=== PATIENT | female | born 1980 | race Caucasian/White ===

== ENCOUNTER → 2016-04-22 | Outpatient (CLI) | payer BC ==
[2016-04-22 14:21] LABS: ALT 28 U/L (9-52); AST 22 U/L (14-36); Alkaline Phosphatase 104 U/L (38-126); Anion Gap 13 mmol/L; Blood Urea Nitrogen 10 mg/dL (7-17); Calcium 9.8 mg/dL (8.4-10.2); Carbon Dioxide 22 mmol/L (22-30); Chloride 107 mmol/L (98-107); Glucose 88 mg/dL (74-99); Non-African American GFR(MDRD) >60 (>60 ml/min/1.73 sqM); Potassium 4.5 mmol/L (3.5-5.1); Sodium 142 mmol/L (137-145); Total Bilirubin 0.3 mg/dL (0.2-1.3); Total Protein 7.5 g/dL (6.3-8.2)
--- NOTE | 2016-04-22 14:55 | CT ---
EXAMINATION TYPE: CT abdomen pelvis w con DATE OF EXAM: 04/22/2016 2:43 PM COMPARISON: 10/29/2015 HISTORY: Patient complains of chest pain and difficulty breathing. CT DLP: 909.9 mGycm CONTRAST: CT scan of the abdomen and pelvis is performed with Oral Contrast and with IV Contrast, patient injec facundo with 100 mL of Omnipaque 300. FINDINGS: LUNG BASES-: No visible nodule. No infiltrate. LIVER/GB: No calcified gallstones. No space occupying hepatic lesion. Biliary tree is of normal ca liber. PANCREAS: No inflammation. No distinct mass. SPLEEN: No splenic enlargement. No lesion seen. ADRENALS: No nodule. No thickening. KIDNEYS/BLADDER: No hydronephrosis. No nephrolithiasis. No disctinct renal mass. Urinary bladder g rossly unremarkable. BOWEL: Normal appendix. Normal bowel caliber. No inflammation. GENITAL ORGANS: IUD is in place. Left ovarian cyst measuring 2.7 cm. Right ovary is unremarkable. LYMPH NODES: No greater than 1cm abdominal or pelvic lymph nodes are appreciated. AORTA: No significant abnormality. OSSEOUS STRUCTURES: No significant abnormality is seen. OTHER: Stable midline ventral hernia containing fat. IMPRESSION: 1. No acute intra-abdominal process. 2. Ventral fat-containing hernia.
== END | disposition home or self-care (01) ==
LOC: RADCTMAIN 11:47
PROVIDERS: ATTEND Family Medicine
DX: K43.9 Ventral hernia without obstruction or gangrene (principal); K31.84 Gastroparesis; R10.11 Right upper quadrant pain; R11.0 Nausea
CPT/HCPCS: 80053; 83690; 74177; 36415; Q9967; 85025

== ENCOUNTER → 2016-04-22 | Outpatient (CLI) | payer BC ==
[2016-04-22 15:50] LABS: Basophils # (A) 0.1 k/uL (0-0.2); Basophils % (A) 1 %; CH 22.6; CHCM 30.6; Eosinophils # (A) 0.2 k/uL (0-0.7); Eosinophils % (A) 2 %; HCT 36.5 % (34.0-46.0); HDW 3.04; Hypochromasia Marked; Luc # (Auto) 0.23; Luc % (Auto) 3; Lymphocytes # (A) 2.1 k/uL (1.0-4.8); Lymphocytes % (A) 26 %; MCH 22.4 pg (25.0-35.0); MCHC 30.2 g/dL (31.0-37.0); MCV 74.1 fL (80.0-100.0); Mean Platelet Volume 6.7; Microcytosis Slight; Monocytes # (A) 0.5 k/uL (0-1.0); Monocytes % (A) 6 %; Neutrophils % (A) 62 %; RBC 4.92 m/uL (3.80-5.40); WBC 8.1 k/uL (3.8-10.6); WBC (Perox) 7.78
== END | disposition home or self-care (01) ==
LOC: LABWHC1 14:39
PROVIDERS: ATTEND Family Medicine
DX: K31.84 Gastroparesis (principal); R11.0 Nausea; R10.11 Right upper quadrant pain
CPT/HCPCS: 36415; 85025

== ENCOUNTER 2016-08-30 18:30 | Inpatient (IN) | payer BC ==
[2016-08-30] MEDS ORDERED: SODIUM CHLORIDE 0.9% 1,000 ML IV STA (18:49)
[2016-08-30] MEDS ORDERED: diphenhydrAMINE 50 MG/ML 1 ML VIAL IVP STA (19:04)
[2016-08-30] MEDS ORDERED: LORazepam 2 MG/ML SYRINGE IV STA (19:04)
--- NOTE | 2016-08-30 19:17 | ED ---
Abdominal Pain HPI - General Chief Complaint: Abdominal Pain Stated Complaint: Abd pain Time Seen by Provider: 08/30/16 18:49 Source: patient, RN notes reviewed Mode of arrival: ambulatory Limitations: no limitations - History of Present Illness Initial Comments: This is a 36-year-old female presents emergency Department chief complaint abdominal pain, nausea vomiting. Patient states that she did not feel well yesterday but states it worsened today. Patient states that she has a history of pancreatitis, gastroparesis and multiple abdominal surgeries. Patient had prior cholecystectomy, Edna-en-Y surgery. Patient states that she's also had gastric pacemaker placed. Patient states that she is currently under a drug trial of propulsid. Patient states that she feels it may be pancreatitis or her gastroparesis. Patient denies fever, chills, headache, chest pain or shortness breath. Denies any sick contacts. Patient states she's had some diarrhea which is not unusual. - Related Data Home Medications Medication Instructions Recorded Confirmed Loratadine [Claritin] 10 mg PO DAILY PRN 05/11/14 08/30/16 Linaclotide [Linzess] 290 mcg PO DAILY 01/05/15 08/30/16 oxyCODONE-APAP 10-325MG [Percocet 1 tab PO Q6HR PRN MDD 4 tablets 08/28/1508/30 10-325 mg] Thyroid,Pork [Nature-Throid] 81.25 mg PO DAILY 10/27/15 08/30/16 DULoxetine HCL [Cymbalta] 20 mg PO DAILY 08/30/16 08/30/16 Gabapentin [Neurontin] 300 mg PO TID 08/30/16 08/30/16 Lansoprazole [Prevacid] 30 mg PO AC-BID 08/30/16 08/30/16 Allergies Allergy/AdvReac Type Severity Reaction Status Date / Time No Known Allergies Allergy Verified 08/30/16 20:44 Review of Systems ROS Statement: Those systems with pertinent positive or pertinent negative responses have been documented in the HPI. ROS Other: All systems not noted in ROS Statement are negative. 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 PT STATED HAD PANCREATITIS APPROX 6 MONTHS AGO STATED THEY THOUGHT MAYBE THERE WAS A STONE SOMEWHERE(HAS HAD HERE GALLBLADDER REMOVED IN THE PAST) Past Drug Use History: None Reported - Past Family History Father Family Medical History: Hypertension Additional Family Medical History / Comment(s): DAD IS 52 AND IN [facility] Mother Additional Family Medical History / Comment(s): MOM IS 52 AND IN [facility] General Exam Limitations: no limitations General appearance: alert, in no apparent distress Head exam: Present: atraumatic, normocephalic, normal inspection Neck exam: Present: normal inspection. Absent: tenderness, meningismus, lymphadenopathy Respiratory exam: Present: normal lung sounds bilaterally. Absent: respiratory distress, wheezes, rales, rhonchi, stridor Cardiovascular Exam: Present: normal rhythm, tachycardia, normal heart sounds. Absent: systolic murmur, diastolic murmur, rubs, gallop, clicks GI/Abdominal exam: Present: soft, tenderness (Moderate right upper quadrant ), normal bowel sounds. Absent: distended, guarding, rebound, rigid Back exam: Absent: CVA tenderness (R), CVA tenderness (L) Skin exam: Present: warm, dry, intact, normal color. Absent: rash Course Vital Signs 08/30/16 18:39 Temperature 97.7 F Pulse Rate 116 H Respiratory 18 Rate Blood Pressure 173/99 O2 Sat by Pulse 100 Oximetry Medical Decision Making - Lab Data Result diagrams: 08/30/16 19:32 08/30/16 19:32 Lab Results 08/30/16 08/30/16 Range/Units 19:32 19:32 WBC 20.5 H (3.8-10.6) k/uL RBC 5.01 (3.80-5.40) m/uL Hgb 12.2 (11.4-16.0) gm/dL Hct 40.0 (34.0-46.0) % MCV 79.8 L (80.0-100.0) fL MCH 24.4 L (25.0-35.0) pg MCHC 30.6 L (31.0-37.0) g/dL RDW 16.1 H (11.5-15.5) % Plt Count 459 H (150-450) k/uL Neutrophils % 83 % Lymphocytes % 11 % Monocytes % 4 % Eosinophils % 1 % Basophils % 0 % Neutrophils # 17.0 H (1.3-7.7) k/uL Lymphocytes # 2.2 (1.0-4.8) k/uL Monocytes # 0.9 (0-1.0) k/uL Eosinophils # 0.1 (0-0.7) k/uL Basophils # 0.1 (0-0.2) k/uL Hypochromasia Marked Anisocytosis Slight Sodium 142 (137-145) mmol/L Potassium 3.7 (3.5-5.1) mmol/L Chloride 109 H (98-107) mmol/L Carbon Dioxide 25 (22-30) mmol/L Anion Gap 8 mmol/L BUN 10 (7-17) mg/dL Creatinine 0.77 (0.52-1.04) mg/dL Est GFR (MDRD) Af Amer >60 (>60 ml/min/1.73 sqM) Est GFR (MDRD) Non-Af >60 (>60 ml/min/1.73 sqM) Glucose 98 (74-99) mg/dL Calcium 8.9 (8.4-10.2) mg/dL Total Bilirubin 0.4 (0.2-1.3) mg/dL AST 20 (14-36) U/L ALT 27 (9-52) U/L Alkaline Phosphatase 103 (38-126) U/L Total Protein 6.9 (6.3-8.2) g/dL Albumin 4.0 (3.5-5.0) g/dL Amylase 59 (30-110) U/L Lipase 56 (23-300) U/L Disposition Clinical Impression: Gastroparesis, Intractable abdominal pain, Intractable nausea and vomiting, Dehydration Disposition: ADMITTED IP TO THIS [facility] Condition: Stable Referrals: Ziggy Wood III, MD [Primary Care Provider] - 1-2 days
[2016-08-30 19:44] LABS: Anisocytosis Slight; Basophils # (A) 0.1 k/uL (0-0.2); Basophils % (A) 0 %; CH 24.1; CHCM 30.3; Eosinophils # (A) 0.1 k/uL (0-0.7); Eosinophils % (A) 1 %; HDW 2.71; HGB 12.2 gm/dL (11.4-16.0); Hypochromasia Marked; Luc % (Auto) 1; Lymphocytes # (A) 2.2 k/uL (1.0-4.8); Lymphocytes % (A) 11 %; MCH 24.4 pg (25.0-35.0); MCHC 30.6 g/dL (31.0-37.0); MCV 79.8 fL (80.0-100.0); Monocytes # (A) 0.9 k/uL (0-1.0); Monocytes % (A) 4 %; Neutrophils % (A) 83 %; RBC 5.01 m/uL (3.80-5.40); RDW 16.1 % (11.5-15.5); WBC 20.5 k/uL (3.8-10.6); WBC (Perox) 20.67
[2016-08-30 20:00] LABS: ALT 27 U/L (9-52); AST 20 U/L (14-36); Alkaline Phosphatase 103 U/L (38-126); Amylase 59 U/L (30-110); Anion Gap 8 mmol/L; Blood Urea Nitrogen 10 mg/dL (7-17); Calcium 8.9 mg/dL (8.4-10.2); Carbon Dioxide 25 mmol/L (22-30); Chloride 109 mmol/L (98-107); Glucose 98 mg/dL (74-99); Non-African American GFR(MDRD) >60 (>60 ml/min/1.73 sqM); Potassium 3.7 mmol/L (3.5-5.1); Sodium 142 mmol/L (137-145); Total Bilirubin 0.4 mg/dL (0.2-1.3); Total Protein 6.9 g/dL (6.3-8.2)
[2016-08-30] MEDS ORDERED: TRIMETHOBENZAMIDE 100 MG/ML 2 ML VIAL IM STA (20:10)
[2016-08-30] MEDS ORDERED: RX INFO: IV CONTRAST WAS GIVEN 1 EACH MISC MISCELLANE PRN (20:10)
[2016-08-30] MEDS ORDERED: HYDROmorphone 1 MG/ML 1 ML SYRINGE IVP STA ×2 (20:10→21:52)
--- NOTE | 2016-08-30 20:28 | XR ---
EXAMINATION TYPE: XR KUB DATE OF EXAM: 08/30/2016 8:07 PM COMPARISON: 01/23/2016 HISTORY: Pain TECHNIQUE: 2 views FINDINGS: Bowel gas pattern is normal. There is no sign of intestinal obstruction or pneumoperitoneum . Fecal pattern is normal. There are clips from cholecystectomy. There is a neurostimulator over the right iliac bone. Lung bases are clear. There are no pathologic calcifications over the kidneys. IMPRESSION: Nonacute abdomen. No adverse change compared to old exam.
--- NOTE | 2016-08-30 21:15 | CT ---
EXAMINATION TYPE: CT abdomen pelvis w con DATE OF EXAM: 08/30/2016 9:07 PM COMPARISON: 04/22/2016 HISTORY: Right upper quadrant pain radiating to back with nausea and vomiting. CT DLP: 1546.00 mGycm Automated exposure control for dose reduction was used. TECHNIQUE: Helical acquisition of images was performed from the lung bases through the pelvis. CONTRAST: Performed without Oral Contrast and with IV Contrast, patient injected with 100 mL of Omnipaque 300. FINDINGS: Lung bases are clear. There is no pleural effusion. Liver spleen pancreas appear normal. There are clips from cholecystectomy. Bile ducts are not dilated . There is a implanted device over the left anterior mid abdomen. There is a ventral hernia that cont ains omental fat above the umbilicus. This measures 4.5 x 3 cm. Bladder distends smoothly. There is no ascites. Kidneys show satisfactory contrast opacification. The re is no hydronephrosis. There is no adrenal mass. There is no retroperitoneal adenopathy. I see no i ntestinal wall thickening. There are no dilated loops. Appendix appears normal. I see no bony destruc tive process. IUD is noted in the uterine fundus. There is a 2 cm cyst on the right ovary. IMPRESSION: NO SIGN OF ACUTE ABDOMEN AND PELVIS. EPIGASTRIC VENTRAL HERNIA IS STABLE COMPARED TO OLD EXAM.
[2016-08-30] MEDS ORDERED: NALOXONE 0.4 MG/ML 1 ML VIAL IV PRN (21:20)
[2016-08-30] MEDS ORDERED: ACETAMINOPHEN TAB 325 MG TAB PO PRN (21:20)
[2016-08-30] MEDS ORDERED: TRIMETHOBENZAMIDE 300 MG CAP PO PRN (21:23)
[2016-08-30 22:34] VITALS: BMI 35.4
[2016-08-31] MEDS: diphenhydrAMINE 50 MG/ML 1 ML VIAL IVP PRN ×4 (00:10→23:39)
[2016-08-31] MEDS: HYDROmorphone 1 MG/ML 1 ML SYRINGE IVP PRN ×5 (01:18→19:59)
[2016-08-31 01:33] LABS: Appearance,Urine Clear (Clear); Bilirubin,Urine Negative (Negative); Glucose,Urine (UA) Negative (Negative); Ketones,Urine Negative (Negative); Leukocyte Esterase,Urine Negative (Negative); Mucus,Urine Rare /hpf; Nitrite,Urine Negative (Negative); PH, Urine 6.5 (5.0-8.0); Particle Count 3465; Protein,Urine Trace (Negative); RBC,Urine 1 /hpf (0-5); Squamous Epithelial Cell,Urine 2 /hpf (0-4); UA Billing (MACRO vs. MICRO) MICRO; Urobilinogen,Urine <2.0 mg/dL (<2.0); WBC,Urine 1 /hpf (0-5)
[2016-08-31 01:36] LABS: Specific Gravity,Urine >1.050 (1.001-1.035)
[2016-08-31] MEDS: SODIUM CHLORIDE 0.9% 1,000 ML IV SCH ×4 (05:44→20:55)
[2016-08-31 07:33] VITALS: RESP 16
[2016-08-31] MEDS: LORazepam 2 MG/ML SYRINGE IV PRN ×4 (08:16→23:39)
--- NOTE | 2016-08-31 11:01 | XR ---
EXAMINATION TYPE: XR chest 1V portable DATE OF EXAM: 08/31/2016 COMPARISON: Prior chest x-ray 01/09/2014 HISTORY: Pneumonia, right upper quadrant pain TECHNIQUE: Single frontal view of the chest is obtained. FINDINGS: There is no focal air space opacity, pleural effusion, or pneumothorax seen. The cardiac silhouette size is within normal limits. The osseous structures are intact. IMPRESSION: No acute process.
[2016-08-31] MEDS ORDERED: LORATADINE 10 MG TAB PO PRN (16:32)
[2016-08-31] MEDS: THYROID, PORK 30 MG TAB PO SCH (17:43)
[2016-08-31] MEDS: DULoxetine HCL 20 MG CAPSULE.DR PO SCH (17:44)
[2016-08-31] MEDS: GABAPENTIN 300 MG CAP PO SCH ×2 (17:44→23:34)
[2016-08-31] MEDS: PANTOPRAZOLE 40 MG TABLET PO SCH (17:44)
--- NOTE | 2016-08-31 20:05 | P.GSCN ---
History of Present Illness Consult date: 08/31/16 Reason for Consult: Abdominal pain/leukocytosis History of present illness: Patient is a 36-year-old white female who presented to the emergency room with a complaint of abdominal discomfort. Of significance is the fact that the patient has had multiple prior abdominal surgery surgeries including surgery for gastroparesis with an implantable gastric pacemaker as well. 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 She has also had a cholecystectomy. The patient has had multiple hospitalizations for abdominal pain including idiopathic gastroparesis and pancreatitis. At this time the patient states that she began having abdominal discomfort several days ago and then began vomiting. The vomiting has subsided at this time. The patient is currently on a drug trial of Propulsid. Additionally the patient is seen multiple physicians for her gastroparesis. Past surgical history: 1. Cholecystectomy 2. Edna-en-Y surgery 3. Surgery as per mesenteric artery syndrome 4. Gastric pacemaker placed 5. 3 C-sections 6. J-tube placement Past medical history: 1. Gastroparesis 2. History of pancreatitis uncertain of the etiology ALLERGIES: Negative Review of systems: HEENT thyroid disorder Lungs: Nonsmoker Cardiac: None reported Psychologic history: Depression GI history: As above Review of Systems - Constitutional Reports as per HPI - Cardiovascular Reports as per HPI - Genitourinary Genitourinary: Reports as per HPI Menstruation: Reports as per HPI - Psychiatric Reports as per HPI - Endocrine Reports as per HPI Past Medical History Past Medical History: Thyroid Disorder Additional Past Medical History / Comment(s): PANCREATITIS, HYPOTHYROID, gastroparesis, depression History of Any Multi-Drug Resistant Organisms: None Reported Past Surgical History: Section, Cholecystectomy, Tonsillectomy Additional Past Surgical History / Comment(s): X3 C-SECTIONS, Edna-en-y in Jan 2015 j tube-feeding tube gastric pacer Past Anesthesia/Blood Transfusion Reactions: No Reported Reaction Past Psychological History: Depression Additional Psychological History / Comment(s): WELLBUTRIN Smoking Status: Never smoker Past Alcohol Use History: Rare Additional Past Alcohol Use History / Comment(s): PT DENIES SMOKING OR ANY ILLEGAL DRUG USE, HAS AN OCC DRINK. PT STATED HAD PANCREATITIS APPROX 6 MONTHS AGO STATED THEY THOUGHT MAYBE THERE WAS A STONE SOMEWHERE(HAS HAD HERE GALLBLADDER REMOVED IN THE PAST) Past Drug Use History: None Reported - Past Family History Father Family Medical History: Hypertension Additional Family Medical History / Comment(s): DAD IS 52 AND IN [facility] Mother Additional Family Medical History / Comment(s): MOM IS 52 AND IN [facility] Medications and Allergies Home Medications Medication Instructions Recorded Confirmed Type Loratadine [Claritin] 10 mg PO DAILY PRN 05/11/14 08/30/16 History Linaclotide [Linzess] 290 mcg PO DAILY 01/05/15 08/30/16 History oxyCODONE-APAP 10-325MG [Percocet 1 tab PO Q6HR PRN MDD 4 tablets 08/28/1508/30 History 10-325 mg] Thyroid,Pork [Nature-Throid] 81.25 mg PO DAILY 10/27/15 08/30/16 History DULoxetine HCL [Cymbalta] 20 mg PO DAILY 08/30/16 08/30/16 History Gabapentin [Neurontin] 300 mg PO TID 08/30/16 08/30/16 History Lansoprazole [Prevacid] 30 mg PO AC-BID 08/30/16 08/30/16 History Allergies Allergy/AdvReac Type Severity Reaction Status Date / Time No Known Allergies Allergy Verified 08/30/16 20:44 Surgical - Exam Vital Signs Temp Pulse Resp BP Pulse Ox 97.7 F 116 H 18 173/99 100 08/30/16 18:39 08/30/16 18:39 08/30/16 18:39 08/30/16 18:39 08/30/16 18:39 - General well developed, no distress, moderate distress - Eyes normal ocular movement - ENT normal pinna, normal nares - Neck no masses, no bruits, trachea midline, no lymphadectomy, no venous distension - Respiratory normal expansion, normal respiratory effort, clear to auscultation - Cardiovascular Rhythm: regular Heart Sounds: normal: S1, S2 - Abdomen Multiple well-healed scars Abdomen: soft, bowel sounds - Psychiatric oriented to time, oriented to person, oriented to place, speech is normal Results Computed tomography scan of abdomen and pelvis reveal a ventral hernia with omental fat present No sign of acute abdominal process in the abdomen or pelvis - Labs 08/30/16 19:32 08/30/16 19:32 Abnormal Lab Results - Last 24 Hours (Table) 08/30/16 08/30/16 Range/Units 01:20 19:32 Chloride 109 H (98-107) mmol/L Ur Specific [place] >1.050 H (1.001-1.035) Urine Protein Trace H (Negative) Urine Blood Small H (Negative) Urine Mucus Rare H (None) /hpf Diabetes panel 08/30/16 Range/Units 19:32 Sodium 142 (137-145) mmol/L Potassium 3.7 (3.5-5.1) mmol/L Chloride 109 H (98-107) mmol/L Carbon Dioxide 25 (22-30) mmol/L BUN 10 (7-17) mg/dL Creatinine 0.77 (0.52-1.04) mg/dL Glucose 98 (74-99) mg/dL Calcium 8.9 (8.4-10.2) mg/dL AST 20 (14-36) U/L ALT 27 (9-52) U/L Alkaline Phosphatase 103 (38-126) U/L Total Protein 6.9 (6.3-8.2) g/dL Albumin 4.0 (3.5-5.0) g/dL Calcium panel 08/30/16 Range/Units 19:32 Calcium 8.9 (8.4-10.2) mg/dL Albumin 4.0 (3.5-5.0) g/dL Pituitary panel 08/30/16 Range/Units 19:32 Sodium 142 (137-145) mmol/L Potassium 3.7 (3.5-5.1) mmol/L Chloride 109 H (98-107) mmol/L Carbon Dioxide 25 (22-30) mmol/L BUN 10 (7-17) mg/dL Creatinine 0.77 (0.52-1.04) mg/dL Glucose 98 (74-99) mg/dL Calcium 8.9 (8.4-10.2) mg/dL Adrenal panel 08/30/16 Range/Units 19:32 Sodium 142 (137-145) mmol/L Potassium 3.7 (3.5-5.1) mmol/L Chloride 109 H (98-107) mmol/L Carbon Dioxide 25 (22-30) mmol/L BUN 10 (7-17) mg/dL Creatinine 0.77 (0.52-1.04) mg/dL Glucose 98 (74-99) mg/dL Calcium 8.9 (8.4-10.2) mg/dL Total Bilirubin 0.4 (0.2-1.3) mg/dL AST 20 (14-36) U/L ALT 27 (9-52) U/L Alkaline Phosphatase 103 (38-126) U/L Total Protein 6.9 (6.3-8.2) g/dL Albumin 4.0 (3.5-5.0) g/dL - Imaging Chest x-ray: report reviewed Abdominal x-ray: report reviewed CT scan - abdomen: report reviewed CT scan - pelvis: report reviewed Assessment and Plan Plan: Impression/plan: 1. Intractable abdominal pain chronic in nature 2. History of pancreatitis/lipase amylase within normal limits at this time 3. Gastroparesis 4. Dehydration 5. Leukocytosis Plan: 1. IV hydration 2. Repeat CBC in a.m. 3. Patient does not have an acute surgical abdomen at this time
--- NOTE | 2016-08-31 20:19 | HP ---
DATE OF ADMISSION: 08/30/2016 CHIEF COMPLAINT: Abdominal pain. HISTORY OF PRESENT ILLNESS: This 36-year-old woman with a past medical history of multiple medical problems hypothyroid, history of pancreatitis, history of gastroparesis, depression, history of depression, being followed by Dr. Wood in the outpatient setting. Also being evaluated at [facility]. The patient previously had NG tube. The patient also had Edna-En-Y surgery. they removed the J-tube and gastric pacemaker was introduced. Patient current feeling better, but currently the patient complaining of right upper quadrant abdominal pain and some nausea. Patient came to [facility] and was admitted to the hospital for further evaluation and treatment. The patient also has history of pancreatitis also. Evaluation in the hospital showed WBC elevated at 20.5 and the patient also multiple evaluations including CAT scan of the abdomen and pelvis which showed epigastric ventral hernia. Otherwise, stable findings. The patient also had a chest x-ray which showed no acute process. The patient also had abdominal KUB x-ray showed non-acute abdomen. There is no history of any fever, rigor or chills. No history of headache, loss of consciousness or seizures. PAST MEDICAL HISTORY: History of hypothyroidism, history of pancreatitis, hypothyroidism, gastroparesis, history of anxiety, depression, history of cholecystectomy, history of Edna-En-Y. Medications a prior to admission include the home medications are: 1. Oxycodone 10 mg q.6 p.r.n. 2. Nature Thyroid 81.25 mg p.o. daily. 3. Claritin 10 mg p.o. daily. 4. Linzess ( ) p.o. daily. 5. Prevacid 30 mg p.o. b.i.d. 6. Neurontin 300 mg p.o. t.i.d. 7. Cymbalta 20 mg p.o. daily. ALLERGIES: None. FAMILY HISTORY: History of hypertension the family. SOCIAL HISTORY: No history of smoking. No history of alcohol intake. REVIEW OF SYSTEMS: ENT: No diminishing hearing or diminished vision. CARDIOVASCULAR SYSTEM: No angina or palpitations. RESPIRATORY: No cough. GASTROINTESTINAL: As mentioned earlier. GENITOURINARY: No dysuria. Nervous system: No numbness or weakness. ALLERGY/IMMUNOLOGY: No asthma or hayfever. MUSCULOSKELETAL: As mentioned earlier. HEMATOLOGY/ONCOLOGY: No history of anemia. ENDOCRINE: As mentioned earlier. CONSTITUTIONAL: As mentioned earlier. DERMATOLOGY: Negative. RHEUMATOLOGY: Negative. PSYCHIATRY: As mentioned earlier. PHYSICAL EXAMINATION: Pulse 85, blood pressure 117/77, respiratory rate 16. Temperature 98.4, pulse ox 97% on room air. HEENT: Conjunctivae normal. NECK: No jugular venous distention. CARDIOVASCULAR: S1, S2 muffled RESPIRATORY: Breath sounds diminished at the bases. No rhonchi. No crackles. ABDOMEN: Soft. Mild diffuse tenderness present. No guarding. No rigidity. No mass palpable. Legs: No edema. No swelling. CENTRAL NERVOUS SYSTEM: Higher functions as mentioned earlier. Moves all four limbs. No focal deficits. LYMPHATICS: No lymph nodes palpable in the neck, axillae or groin. SKIN: No ulcer, rash or bleeding. LABS: WBC 20.9, hemoglobin 12.2, MCV 79.8, sodium 140, potassium 3.7. UA noted. ASSESSMENT: 1. Right upper quadrant abdominal pain with leukocytosis for evaluation. Rule out cholelithiasis. 2. Microcytosis. 3. Gastroparesis status post gastric pacemaker implantation. 4. History of hypothyroidism. 5. History of pancreatitis. 7. History of gastroparesis. 8. History of depression. 9. History of cholecystectomy. 10. History section. 11. History of Edna-en-Y. 12. History J-tube incision from [facility] and removal. 13. History of SMA syndrome. 14. History of depression, not otherwise specified. 15. FULL CODE. RECOMMENDATIONS AND DISCUSSION: In this 36-year-old woman who presented with the multiple complex medical issues, we will monitor the patient closely. Continue the current medications. Continue symptomatic treatment. Otherwise, at this time, I recommend repeat labs and also recommend evaluation per surgery also. Otherwise, guarded prognosis because of multiple complex medical issues. Further recommendations to follow. A copy being forwarded to Dr. Wood who is the primary care physician. ERYN
[2016-09-01] MEDS: HYDROmorphone 1 MG/ML 1 ML SYRINGE IVP PRN ×5 (05:26→23:19)
[2016-09-01] MEDS: THYROID, PORK 30 MG TAB PO SCH (05:27)
[2016-09-01] MEDS: LORazepam 2 MG/ML SYRINGE IV PRN ×3 (06:26→19:50)
[2016-09-01] MEDS: diphenhydrAMINE 50 MG/ML 1 ML VIAL IVP PRN ×3 (06:26→19:50)
[2016-09-01 07:46] LABS: Anisocytosis Slight; Basophils % (A) 1 %; CH 23.9; CHCM 29.8; Eosinophils # (A) 0.1 k/uL (0-0.7); Eosinophils % (A) 1 %; HCT 37.7 % (34.0-46.0); HDW 2.73; HGB 11.6 gm/dL (11.4-16.0); Hypochromasia Marked; Luc # (Auto) 0.11; Luc % (Auto) 2; Lymphocytes # (A) 1.6 k/uL (1.0-4.8); Lymphocytes % (A) 23 %; MCH 24.7 pg (25.0-35.0); MCHC 30.6 g/dL (31.0-37.0); MCV 80.6 fL (80.0-100.0); Mean Platelet Volume 6.2; Monocytes # (A) 0.3 k/uL (0-1.0); Monocytes % (A) 5 %; Neutrophils # (A) 4.7 k/uL (1.3-7.7); Neutrophils % (A) 69 %; RBC 4.68 m/uL (3.80-5.40); RDW 16.2 % (11.5-15.5); WBC 6.8 k/uL (3.8-10.6); WBC (Perox) 6.68
[2016-09-01 07:53] LABS: ALT 27 U/L (9-52); AST 20 U/L (14-36); Alkaline Phosphatase 83 U/L (38-126); Anion Gap 8 mmol/L; Blood Urea Nitrogen 6 mg/dL (7-17); Calcium 8.7 mg/dL (8.4-10.2); Carbon Dioxide 23 mmol/L (22-30); Chloride 109 mmol/L (98-107); Glucose 74 mg/dL (74-99); Non-African American GFR(MDRD) >60 (>60 ml/min/1.73 sqM); Potassium 4.1 mmol/L (3.5-5.1); Sodium 140 mmol/L (137-145); Total Bilirubin 0.5 mg/dL (0.2-1.3); Total Protein 6.2 g/dL (6.3-8.2)
[2016-09-01] MEDS: GABAPENTIN 300 MG CAP PO SCH ×3 (09:06→19:50)
[2016-09-01] MEDS: PANTOPRAZOLE 40 MG TABLET PO SCH ×2 (09:06→18:04)
[2016-09-01] MEDS: DULoxetine HCL 20 MG CAPSULE.DR PO SCH (09:07)
[2016-09-01] MEDS ORDERED: SCOPOLAMINE 1.5MG/72HR PATCH TRANSDERM STA (11:15)
[2016-09-01] MEDS: oxyCODONE-APAP 10-325MG 1 EACH TAB PO PRN (11:39)
--- NOTE | 2016-09-01 15:23 | P.PN ---
Subjective 36-year-old female seen and examined currently resting in bed continues to report having nausea sensation no active emesis. Patients being followed by surgical service. Patient has had multiple prior abdominal surgeries for gastroparesis including an implantable gastric pacemaker. Patient stated that the implantable gastric pacemaker was inserted in March 2016 at [facility] has been followed by Dr. Marie from [facility] Objective - Vital Signs Vital signs: Vital Signs Temp 98.7 F 09/01/16 13:40 Pulse 95 09/01/16 13:40 Resp 16 09/01/16 13:40 BP 145/86 09/01/16 13:40 Pulse Ox 97 09/01/16 13:40 Intake & Output 08/31/16 09/01/16 09/01/16 18:59 06:59 18:59 Other: Voiding Method Toilet Toilet Toilet # Voids 3 1 1 - Exam Physical exam 46-year-old female resting in bed states the nausea sensation continues to persist less abdominal pain Lungs essentially clear adequate air movement on room air no shortness of breath noted Heart S1-S2 audible and regular Abdomen soft nondistended no active emesis nausea sensation bowel tones present nontender Extremities no edema - Labs CBC & Chem 7: 09/01/16 06:46 09/01/16 06:46 Labs: Abnormal Lab Results - Last 24 Hours (Table) 09/01/16 09/01/16 Range/Units 06:46 06:46 MCH 24.7 L (25.0-35.0) pg MCHC 30.6 L (31.0-37.0) g/dL RDW 16.2 H (11.5-15.5) % Chloride 109 H (98-107) mmol/L BUN 6 L (7-17) mg/dL Total Protein 6.2 L (6.3-8.2) g/dL Microbiology - Last 24 Hours (Table) 08/31/16 18:50 Urine Culture - Preliminary Urine,Voided Assessment and Plan Plan: Impression Present on admission intractable abdominal pain chronic in nature A history of pancreatitis no evidence this admission Gastrophoresis with a recent implantable gastric pacemaker inserted in March 2016 Present on admission clinical dehydration Present on admission leukocytosis suspect reactive Plan Patient does not have an acute surgical abdomen at this time Continue IV hydration Monitor labs Pain control The above dictated assessment and findings were discussed with [place] Impression and the plan of care have been dictated as directed. Judy Acevedo nurse practitioner acting as a scribe for Dr. Costa
[2016-09-01] MEDS: SODIUM CHLORIDE 0.9% 1,000 ML IV SCH ×3 (17:33→19:04)
[2016-09-02] MEDS: LORazepam 2 MG/ML SYRINGE IV PRN ×6 (02:02→20:39)
[2016-09-02] MEDS: diphenhydrAMINE 50 MG/ML 1 ML VIAL IVP PRN ×4 (02:02→20:39)
[2016-09-02] MEDS: HYDROmorphone 1 MG/ML 1 ML SYRINGE IVP PRN ×5 (03:42→21:28)
[2016-09-02] MEDS: THYROID, PORK 30 MG TAB PO SCH (05:02)
[2016-09-02 07:34] LABS: ALT 52 U/L (9-52); AST 55 U/L (14-36); Alkaline Phosphatase 109 U/L (38-126); Anion Gap 7 mmol/L; Blood Urea Nitrogen 7 mg/dL (7-17); Calcium 8.6 mg/dL (8.4-10.2); Carbon Dioxide 22 mmol/L (22-30); Chloride 109 mmol/L (98-107); Glucose 67 mg/dL (74-99); Non-African American GFR(MDRD) >60 (>60 ml/min/1.73 sqM); Potassium 3.9 mmol/L (3.5-5.1); Sodium 138 mmol/L (137-145); Total Bilirubin 0.7 mg/dL (0.2-1.3); Total Protein 6.2 g/dL (6.3-8.2)
[2016-09-02 07:41] LABS: Basophils % (A) 0 %; CH 24.3; Eosinophils # (A) 0.1 k/uL (0-0.7); Eosinophils % (A) 2 %; HCT 36.3 % (34.0-46.0); HDW 2.91; HGB 11.9 gm/dL (11.4-16.0); Hypochromasia Slight; Luc # (Auto) 0.13; Luc % (Auto) 2; Lymphocytes # (A) 2.1 k/uL (1.0-4.8); Lymphocytes % (A) 27 %; MCH 25.1 pg (25.0-35.0); MCHC 32.9 g/dL (31.0-37.0); MCV 76.1 fL (80.0-100.0); Mean Platelet Volume 6.8; Microcytosis Slight; Monocytes # (A) 0.4 k/uL (0-1.0); Monocytes % (A) 5 %; Neutrophils # (A) 4.8 k/uL (1.3-7.7); Neutrophils % (A) 64 %; RBC 4.76 m/uL (3.80-5.40); RDW 15.8 % (11.5-15.5); WBC 7.6 k/uL (3.8-10.6); WBC (Perox) 7.63
[2016-09-02] MEDS: SODIUM CHLORIDE 0.9% 1,000 ML IV SCH ×4 (07:43→20:40)
[2016-09-02] MEDS: PANTOPRAZOLE 40 MG TABLET PO SCH ×2 (07:43→17:17)
[2016-09-02] MEDS: GABAPENTIN 300 MG CAP PO SCH ×3 (10:00→21:26)
--- NOTE | 2016-09-02 11:18 | P.PN ---
Subjective 36-year-old female seen and evaluated this morning no new events. Patient states anxious to be discharged home. Patient states no acute episode of nausea no vomiting Patient is been afebrile labs were reviewed Patient has had multiple abdominal surgeries for gastroparesis recently in March 2016 underwent an implantable gastric pacemaker and [facility] and is followed in the outpatient setting by Dr. Marie from [facility] in [place]. Patient states she has follow-up appointments made. has a pain management physician who does see the patient in the outpatient setting. Patient states she feels back to baseline is tolerating a liquid diet Objective - Vital Signs Vital signs: Vital Signs Temp 98.0 F 09/02/16 07:00 Pulse 77 09/02/16 07:00 Resp 16 09/02/16 07:00 BP 131/56 09/02/16 07:00 Pulse Ox 96 09/02/16 07:00 Intake & Output 09/01/16 09/02/16 09/02/16 18:59 06:59 18:59 Intake Total 500 1512.5 113 Balance 500 1512.5 113 Intake: Intake, IV Titration 500 1312.5 Amount Sodium Chloride 0.9% 1, 500 1312.5 000 ml @ 125 mls/hr IV . Q8H [facility] Rx#:[id number] Oral 200 113 Other: Voiding Method Toilet Toilet Toilet # Voids 1 2 - Exam Physical exam 36-year-old female resting in bed currently taking a full liquid diet reports nausea sensation subsided no emesis. No frequent stooling. Lungs essentially clear adequate air movement Heart S1-S2 audible and regular Abdomen soft nontender reports no nausea vomiting bowel tones present Extremities no edema - Labs CBC & Chem 7: 09/02/16 07:03 09/02/16 07:03 Labs: Abnormal Lab Results - Last 24 Hours (Table) 09/02/16 09/02/16 Range/Units 07:03 07:03 MCV 76.1 L (80.0-100.0) fL RDW 15.8 H (11.5-15.5) % Chloride 109 H (98-107) mmol/L Glucose 67 L (74-99) mg/dL AST 55 H (14-36) U/L Total Protein 6.2 L (6.3-8.2) g/dL Microbiology - Last 24 Hours (Table) 05/30/17 18:50 Urine Culture - Final Urine,Voided 08/31/16 17:11 Blood Culture - Preliminary Blood No Growth after 24 hours Assessment and Plan Plan: Impression Present on admission intractable abdominal pain chronic in nature A history of pancreatitis no evidence this admission Gastrophoresis with a recent implantable gastric pacemaker inserted in March 2016 Present on admission clinical dehydration Present on admission leukocytosis suspect reactive Plan Patient does not have an acute surgical abdomen at this time No acute surgical intervention needed From a surgical perspective will sign off reevaluate as needed From a surgical perspective okay to be discharged defer to the timing of the discharge to the attending Patient will follow-up in the outpatient setting with her own physician Dr. Marie [facility] The above dictated assessment and findings were discussed with Igor Troy and the plan of care have been dictated as directed. Judy Acevedo nurse practitioner acting as a scribe for Dr. Costa
[2016-09-02] MEDS: DULoxetine HCL 20 MG CAPSULE.DR PO SCH (14:14)
[2016-09-02] MEDS: oxyCODONE-APAP 10-325MG 1 EACH TAB PO PRN (15:59)
[2016-09-03] MEDS: HYDROmorphone 1 MG/ML 1 ML SYRINGE IVP PRN ×3 (02:00→09:22)
[2016-09-03] MEDS: SODIUM CHLORIDE 0.9% 1,000 ML IV SCH (02:15)
[2016-09-03] MEDS: diphenhydrAMINE 50 MG/ML 1 ML VIAL IVP PRN ×2 (02:38→08:17)
[2016-09-03] MEDS: LORazepam 2 MG/ML SYRINGE IV PRN ×2 (02:38→08:16)
[2016-09-03] MEDS: THYROID, PORK 30 MG TAB PO SCH (05:57)
[2016-09-03] MEDS: PANTOPRAZOLE 40 MG TABLET PO SCH (07:09)
[2016-09-03 07:50] LABS: Anisocytosis Slight; Basophils % (A) 1 %; CH 24.7; CHCM 32.7; Eosinophils # (A) 0.2 k/uL (0-0.7); Eosinophils % (A) 3 %; HCT 36.5 % (34.0-46.0); HGB 11.9 gm/dL (11.4-16.0); Luc # (Auto) 0.15; Luc % (Auto) 2; Lymphocytes # (A) 2.4 k/uL (1.0-4.8); Lymphocytes % (A) 35 %; MCH 24.8 pg (25.0-35.0); MCHC 32.6 g/dL (31.0-37.0); MCV 76.1 fL (80.0-100.0); Mean Platelet Volume 6.8; Microcytosis Slight; Monocytes # (A) 0.4 k/uL (0-1.0); Monocytes % (A) 6 %; Neutrophils # (A) 3.7 k/uL (1.3-7.7); Neutrophils % (A) 54 %; WBC 6.9 k/uL (3.8-10.6); WBC (Perox) 7.11
--- NOTE | 2016-09-03 07:54 | P.PN ---
Subjective Date of service 09/01/2016. Progress note being dictated for Dr. Finch. Interval history: This is a 36-year-old female admitted with gastroparesis, right upper quadrant pain in a patient with recently placed gastric pump in March 2016. Persistent nausea, emesis currently subsided and will advance diet slowly. IV fluid hydration maintained. Complains of right upper quadrant pain, slowly improving. Evaluated by surgery- nonsurgical. Afebrile, normal wbc. Denies chest pain, palpitations or increasing shortness of breath. Objective - Vital Signs Vital signs: Vital Signs Temp 98.7 F 09/01/16 13:40 Pulse 95 09/01/16 13:40 Resp 16 09/01/16 13:40 BP 145/86 09/01/16 13:40 Pulse Ox 97 09/01/16 13:40 Intake & Output 09/01/16 09/01/16 09/02/16 06:59 18:59 06:59 Intake Total 500 Balance 500 Intake: Intake, IV Titration 500 Amount Sodium Chloride 0.9% 1, 500 000 ml @ 125 mls/hr IV . Q8H [facility] Rx#:[id number] Other: Voiding Method Toilet Toilet # Voids 1 1 - Exam PHYSICAL EXAM: VITAL SIGNS: As above GENERAL: [Sitting up in bed, nauseated, tired appearing HEENT: [Pupils equal conjunctiva normal. to low powerNECK: [Supple, no JVD] RESPIRATORY EFFORT:[ Normal] LUNGS: [Clear to auscultation, no wheezing rhonchi or crackles] CARDIOVASCULAR[ regular S1-S2, no murmurs rubs or gallops, no edema] GI: [Abdomen soft, nontender, nondistended positive bowel sounds.] PSYCH: [Alert and oriented -3, mood and affect normal.] NEURO: No focal deficits - Labs CBC & Chem 7: 09/02/16 07:03 09/02/16 07:03 Labs: Abnormal Lab Results - Last 24 Hours (Table) 09/01/16 09/01/16 Range/Units 06:46 06:46 MCH 24.7 L (25.0-35.0) pg MCHC 30.6 L (31.0-37.0) g/dL RDW 16.2 H (11.5-15.5) % Chloride 109 H (98-107) mmol/L BUN 6 L (7-17) mg/dL Total Protein 6.2 L (6.3-8.2) g/dL Microbiology - Last 24 Hours (Table) 08/31/16 17:11 Blood Culture - Preliminary Blood No Growth after 24 hours 08/31/16 18:50 Urine Culture - Preliminary Urine,Voided Assessment and Plan Plan: 1. [ Right upper quadrant abdominal pain accompanied by leukocytosis, nonsurgical]. 2. [ Microcytosis]. 3. [ Gastroparesis status post recent gastric pacemaker implantation]. 4. [ Hypothyroidism]. 5. [ Pancreatitis]. 6. [ Depression]. 7. [ History of Edna-en-Y]. 8. History of cholecystectomy 9. History of G-tube incision from [facility] and removal 10. History of SMA syndrome Plan: Continue on current medication regime , antiemetics, pain management, monitoring and symptomatic treatment. Patient has appointment with GI specialist Dr. Hernández of [facility] regarding gastric pump maintenance/ monitoring. We'll advance diet slowly and if patient able to tolerate diet, plan for discharge tomorrow. Close monitoring of electrolytes with Repeat labs ordered for tomorrow. Maintain IV fluid hydration. Patient and updated on plan of care. Further conditions to follow. The impression and plan of care has been dictated as directed. : I performed a H&P examination of this patient and discussed the same with the dictator. I agree with the dictator's note. Any additional findings/opinions/ etc. will be noted.
[2016-09-03 07:57] LABS: ALT 54 U/L (9-52); AST 39 U/L (14-36); Alkaline Phosphatase 112 U/L (38-126); Anion Gap 7 mmol/L; Blood Urea Nitrogen 7 mg/dL (7-17); Carbon Dioxide 25 mmol/L (22-30); Chloride 108 mmol/L (98-107); Glucose 82 mg/dL (74-99); Non-African American GFR(MDRD) >60 (>60 ml/min/1.73 sqM); Potassium 4.4 mmol/L (3.5-5.1); Sodium 140 mmol/L (137-145); Total Bilirubin 0.5 mg/dL (0.2-1.3); Total Protein 6.3 g/dL (6.3-8.2)
--- NOTE | 2016-09-03 08:02 | P.PN ---
Subjective Date of service 09/02/2016. Progress note being dictated for Dr. Finch. Interval history: This is a 36-year-old female admitted with gastroparesis, right upper quadrant pain in a patient with recently placed gastric pump in March 2016. Continues to have nausea nausea, emesis last night, minimal diet intake of full liquid diet this morning. Denies diarrhea. Abdominal pain improving IV fluid hydration maintained. Afebrile.Denies chest pain, palpitations or increasing shortness of breath. Objective - Vital Signs Vital signs: Vital Signs Temp 98.2 F 09/02/16 20:35 Pulse 72 09/02/16 20:35 Resp 16 09/02/16 20:35 BP 131/73 09/02/16 20:35 Pulse Ox 99 09/02/16 20:35 Intake & Output 09/02/16 09/02/16 09/03/16 06:59 18:59 06:59 Intake Total 1512.5 113 Output Total 200 Balance 1512.5 -87 Intake: Intake, IV Titration 1312.5 Amount Sodium Chloride 0.9% 1, 1312.5 000 ml @ 125 mls/hr IV . Q8H [facility] Rx#:[id number] Oral 200 113 Output: Emesis 200 Other: Voiding Method Toilet Toilet # Voids 2 3 - Exam PHYSICAL EXAM: VITAL SIGNS: As above GENERAL: [Sitting up in bed, no acute distress HEENT: [Pupils equal conjunctiva normal. to low powerNECK: [Supple, no JVD] RESPIRATORY EFFORT:[ Normal] LUNGS: [Clear to auscultation, no wheezing rhonchi or crackles] CARDIOVASCULAR[ regular S1-S2, no murmurs rubs or gallops, no edema] GI: [Abdomen soft, nontender, nondistended positive bowel sounds.] PSYCH: [Alert and oriented -3, mood and affect normal.] NEURO: No focal deficits - Labs CBC & Chem 7: 09/03/16 07:10 09/02/16 07:03 Labs: Abnormal Lab Results - Last 24 Hours (Table) 09/02/16 09/02/16 Range/Units 07:03 07:03 MCV 76.1 L (80.0-100.0) fL RDW 15.8 H (11.5-15.5) % Chloride 109 H (98-107) mmol/L Glucose 67 L (74-99) mg/dL AST 55 H (14-36) U/L Total Protein 6.2 L (6.3-8.2) g/dL Microbiology - Last 24 Hours (Table) 08/31/16 17:11 Blood Culture - Preliminary Blood No Growth after 48 hours 08/31/16 18:50 Urine Culture - Final Urine,Voided Assessment and Plan Plan: 1. [ Right upper quadrant abdominal pain accompanied by leukocytosis, nonsurgical]. 2. [ Microcytosis]. 3. [ Gastroparesis status post recent gastric pacemaker implantation]. 4. [ Hypothyroidism]. 5. [ Pancreatitis]. 6. [ Depression]. 7. [ History of Edna-en-Y]. 8. History of cholecystectomy 9. History of G-tube incision from [facility] and removal 10. History of SMA syndrome Plan: Continue on current medication regime , antiemetics, pain management, monitoring and symptomatic treatment. Maintain IV fluid hydration. Patient has appointment with GI specialist Dr. Hernández of [facility] regarding gastric pump maintenance/monitoring. Attempted to arrange earlier appointment with her specialist at [facility] this week but is on vacation . Discharge planning in progress for tomorrow. Increase ambulation as tolerated. Further conditions to follow. The impression and plan of care has been dictated as directed. : I performed a H&P examination of this patient and discussed the same with the dictator. I agree with the dictator's note. Any additional findings/opinions/ etc. will be noted.
[2016-09-03] MEDS: NON-FORMULARY DRUG (Linaclotide [Linzess] 290 MCG) PO SCH (08:11)
[2016-09-03] MEDS: GABAPENTIN 300 MG CAP PO SCH (08:12)
[2016-09-03] MEDS: DULoxetine HCL 20 MG CAPSULE.DR PO SCH (08:12)
[2016-09-03 08:37] VITALS: BP 120/73; PULSE 75; TEMP 98.8
--- NOTE | 2016-09-03 11:21 | P.DS ---
Providers Date of admission: 09/01/16 14:25 Expected date of discharge: 09/03/16 Attending physician: Lorna Finch Consults: 08/31/16 16:31 Consult Physician Routine Consulting Provider: Courtney Crespo Consult Reason/Comments: abd pain, high wbc Do you want consulting provider notified?: Yes Dr. Trinh, Gen. surgery Primary care physician: [facility] Course: Final Diagnoses: 1. [ Acute on Chronic Right upper quadrant abdominal pain,nonsurgical]. Stable epigastric ventral hernia per CT. 2. [ Gastroparesis with accompanying dehydration, status post recent gastric pacemaker implantation]. 3 [ Hypothyroidism]. 4. [ Pancreatitis, hx]. 5. [ Depression]. 6. [ History of Edna-en-Y]. 7. History of cholecystectomy 8. History of G-tube incision from [facility] and removal 9. History of SMA syndrome Hospital course:his is a 36-year-old female admitted with gastroparesis, right upper quadrant pain in a patient with recently placed gastric pump in March 2016. Abdominal CT reported nonacute abdomen and pelvis, stable epigastric ventral hernia. Evaluated by surgery. Maintained on IV fluid hydration, bowel rest with diet advanced accordingly. Significant clinical improvement. Patient has appointment with GI specialist Dr. Hernández of [facility] regarding gastric pump maintenance/monitoring next week. Cleared by surgery for discharge. Patient is being discharged home in a stable condition with guarded prognosis. The impression and plan of care has been dictated as directed as a scribe. : I performed a H&P examination of this patient and discussed the same with the dictator. I agree with the dictator's note. Any additional findings/opinions/ etc. will be noted. Patient Condition at Discharge: Stable Plan - Discharge Summary New Discharge Prescriptions: New LORazepam [Ativan] 0.5 mg PO TID PRN #30 tab PRN Reason: Anxiety Continue Loratadine [Claritin] 10 mg PO DAILY PRN PRN Reason: Allergy Symptoms Linaclotide [Linzess] 290 mcg PO DAILY oxyCODONE-APAP 10-325MG [Percocet 10-325 mg] 1 tab PO Q6HR PRN MDD 4 tablets PRN Reason: Pain Thyroid,Pork [Nature-Throid] 81.25 mg PO DAILY Gabapentin [Neurontin] 300 mg PO TID DULoxetine HCL [Cymbalta] 20 mg PO DAILY Lansoprazole [Prevacid] 30 mg PO AC-BID Discharge Medication List Loratadine [Claritin] 10 mg PO DAILY PRN 05/11/14 [History] Linaclotide [Linzess] 290 mcg PO DAILY 01/05/15 [History] oxyCODONE-APAP 10-325MG [Percocet 10-325 mg] 1 tab PO Q6HR PRN MDD 4 tablets [History] Thyroid,Pork [Nature-Throid] 81.25 mg PO DAILY 10/27/15 [History] DULoxetine HCL [Cymbalta] 20 mg PO DAILY 08/30/16 [History] Gabapentin [Neurontin] 300 mg PO TID 08/30/16 [History] Lansoprazole [Prevacid] 30 mg PO AC-BID 08/30/16 [History] LORazepam [Ativan] 0.5 mg PO TID PRN #30 tab 09/03/16 [Rx] Follow up Appointment(s)/Referral(s): Dr. Amira Crocker ( GI/Gastric Pump management) [Other] - 1 Week (as previously scheduled) Ziggy Wood III, MD [Primary Care Provider] - 09/07/16 10:45 am Ambulatory/Diagnostic Orders: Complete Blood Count w/diff [LAB.AMB] Time Frame: 3 Days, Location: Determined By Patient
== END 2016-09-03 11:28 | disposition home or self-care (01) | DRG 392 ==
LOC: EC 18:30 → 3SUR 21:20 → OBSVTOIN 09-01 14:25
PROVIDERS: ADMIT Internal Medicine; ATTEND Internal Medicine
DX: R10.11 Right upper quadrant pain (principal); K31.84 Gastroparesis; F32.9 Major depressive disorder, single episode, unspecified; E03.9 Hypothyroidism, unspecified; G89.29 Other chronic pain; E86.0 Dehydration; K43.9 Ventral hernia without obstruction or gangrene; F41.9 Anxiety disorder, unspecified; Z79.899 Other long term (current) drug therapy; Z82.49 Family history of ischemic heart disease and other diseases of the circulatory system
CPT/HCPCS: 36415; 36569; 71010; 74000; 74020; 74177; 76937; 77001; 80048; 80053; 81001; 82150; 83690; 83735; 85025; 85652; 86140; 87040; 87086; 93005; 96361; 96372; 96374; 96375; 96376; 99285

== ENCOUNTER 2016-09-03 14:44 | Inpatient (IN) | payer BC ==
[2016-09-03] MEDS ORDERED: SODIUM CHLORIDE 0.9% 1,000 ML IV STA (16:59)
[2016-09-03] MEDS ORDERED: diphenhydrAMINE 50 MG/ML 1 ML VIAL IVP STA (17:00)
[2016-09-03] MEDS ORDERED: LORazepam 2 MG/ML SYRINGE IV STA (17:00)
[2016-09-03] MEDS ORDERED: HYDROmorphone 1 MG/ML 1 ML SYRINGE IVP STA ×2 (17:01→18:21)
--- NOTE | 2016-09-03 17:06 | ED ---
Abdominal Pain HPI - General Source: patient, RN notes reviewed Mode of arrival: ambulatory Limitations: no limitations <Eliza Pérez - Last Filed: 09/03/16 19:36> <Jian Cruz - Last Filed: 09/03/16 19:57> - General Chief Complaint: Abdominal Pain Stated Complaint: abdominal & back pain/vomiting Time Seen by Provider: 09/03/16 16:51 - History of Present Illness Initial Comments: 36-year-old female presents to the emergency department with a chief complaint of abdominal pain. Patient was recently admitted and discharged today for gastroparesis. Patient states that she went home she started to drop again and started to develop the abdominal pain. Patient states that she believes that it is continuing to flareup and she needs to be admitted. Patient states she tried her medication with no improvement. She was unable to keep it down and she vomited it up. Due to tactile she is unable to take any nausea medications. Patient denies any recent fever, chills, shortness of breath, chest pain, back pain, numbness or tingling, dysuria or hematuria, constipation or diarrhea, headaches or visual changes, or any other current symptoms. (Eliza Pérez) - Related Data Home Medications Medication Instructions Recorded Confirmed Loratadine [Claritin] 10 mg PO DAILY PRN 05/11/14 09/03/16 Linaclotide [Linzess] 290 mcg PO DAILY 01/05/15 09/03/16 oxyCODONE-APAP 10-325MG [Percocet 1 tab PO Q6HR PRN MDD 4 tablets 08/28/1509/03 10-325 mg] Thyroid,Pork [Nature-Throid] 81.25 mg PO DAILY 10/27/15 09/03/16 DULoxetine HCL [Cymbalta] 20 mg PO DAILY 08/30/16 09/03/16 Gabapentin [Neurontin] 300 mg PO TID 08/30/16 09/03/16 Lansoprazole [Prevacid] 30 mg PO AC-BID 08/30/16 09/03/16 Previous Rx's Medication Instructions Recorded LORazepam [Ativan] 0.5 mg PO TID PRN #30 tab 09/03/16 Allergies Allergy/AdvReac Type Severity Reaction Status Date / Time No Known Allergies Allergy Verified 09/03/16 17:05 Review of Systems ROS Other: All systems not noted in ROS Statement are negative. <Eliza Pérez - Last Filed: 09/03/16 19:36> ROS Other: All systems not noted in ROS Statement are negative. <Jian Cruz - Last Filed: 09/03/16 19:57> ROS Statement: Those systems with pertinent positive or pertinent negative responses have been documented in the HPI. 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 PT STATED HAD PANCREATITIS APPROX 6 MONTHS AGO STATED THEY THOUGHT MAYBE THERE WAS A STONE SOMEWHERE(HAS HAD HERE GALLBLADDER REMOVED IN THE PAST) Past Drug Use History: None Reported - Past Family History Father Family Medical History: Hypertension Additional Family Medical History / Comment(s): DAD IS 52 AND IN [facility] Mother Additional Family Medical History / Comment(s): MOM IS 52 AND IN [facility] <Eliza Pérez - Last Filed: 09/03/16 19:36> General Exam Limitations: no limitations <Eliza Pérez - Last Filed: 09/03/16 19:36> <Jian Cruz - Last Filed: 09/03/16 19:57> - General Exam Comments Initial Comments: General: The patient is awake and alert, in no distress, and does not appear acutely ill. Eye: Pupils are equal, round and reactive to light, extra-ocular movements are intact; there is normal conjunctiva bilaterally. No signs of icterus. Ears, nose, mouth and throat: There are moist mucous membranes and no oral lesions. Neck: The neck is supple, there is no tenderness. Cardiovascular: There is a regular rate and rhythm. No murmur, rub or gallop is appreciated. Respiratory: Lungs are clear to auscultation, respirations are non-labored, breath sounds are equal. No wheezes, stridor, rales, or rhonchi. Gastrointestinal: Soft, non-distended, non-tender abdomen without masses or organomegaly noted. There is no rebound or guarding present. No CVA tenderness. Bowel sounds are unremarkable. Back: There is no tenderness to palpation in the midline. There is no obvious deformity. No rashes noted. Musculoskeletal: Normal ROM, no tenderness, There is no pedal edema. There is no calf tenderness or swelling. Sensation intact. Pulses equal bilaterally 2+. Neurological: CN II-XII intact, There are no obvious motor or sensory deficits. Coordination appears grossly intact. Speech is normal. Skin: Skin is warm and dry and no rashes or lesions are noted. Psychiatric: Cooperative, appropriate mood & affect, normal judgment. (Eliza Pérez) Course <Eliza Pérez - Last Filed: 09/03/16 19:36> <Jian Cruz - Last Filed: 09/03/16 19:57> Vital Signs 09/03/16 09/03/16 09/03/16 15:00 15:40 18:28 Temperature 98.0 F 99.7 F H Pulse Rate 97 110 H 75 Respiratory 20 20 16 Rate Blood Pressure 153/101 143/89 129/70 O2 Sat by Pulse 99 100 98 Oximetry - Reevaluation(s) Reevaluation #1: 09/03/16 18:22 Patient reassessed at this time. Patient states that her nausea has improved but she still having some abdominal discomfort. (Eliza Pérez) Reevaluation #2: 09/03/16 19:57 I did personally do a [id number] examination and evaluation of this patient. Patient still feeling nauseated. She was just discharged this morning from here she does have a history of gastroparesis he currently is enrolled in a study at [facility] and is to not be on any medications that may prolong the QT interval. I did discuss case with Dr. Linares (Jian Cruz) Medical Decision Making - Lab Data Result diagrams: 09/03/16 17:30 09/03/16 17:30 <Eliza Pérez - Last Filed: 09/03/16 19:36> - Lab Data Result diagrams: 09/03/16 17:30 06/02/17 17:30 <AnthonyJian - Last Filed: 09/03/16 19:57> - Medical Decision Making 36-year-old female presents to the emergency department for a flareup of her gastroparesis. This hematocrit is reviewed which is stable however the patient is not having much improvement. This time patient is requesting admission. This time she was just discharged today however she cleaning of increased pain and nausea. We will admit patient to the on-call physician. Patient is in the plan. (Eliza Pérez) - Lab Data Lab Results 09/03/16 09/03/16 09/03/16 Range/Units 17:30 17:30 17:30 WBC 11.2 H (3.8-10.6) k/uL RBC 4.99 (3.80-5.40) m/uL Hgb 12.3 (11.4-16.0) gm/dL Hct 38.5 (34.0-46.0) % MCV 77.1 L (80.0-100.0) fL MCH 24.6 L (25.0-35.0) pg MCHC 31.9 (31.0-37.0) g/dL RDW 16.1 H (11.5-15.5) % Plt Count 458 H (150-450) k/uL Neutrophils % 76 % Lymphocytes % 17 % Monocytes % 5 % Eosinophils % 1 % Basophils % 0 % Neutrophils # 8.6 H (1.3-7.7) k/uL Lymphocytes # 1.9 (1.0-4.8) k/uL Monocytes # 0.6 (0-1.0) k/uL Eosinophils # 0.1 (0-0.7) k/uL Basophils # 0.0 (0-0.2) k/uL Hypochromasia Slight Anisocytosis Slight Microcytosis Slight Sodium 140 (137-145) mmol/L Potassium 4.0 (3.5-5.1) mmol/L Chloride 105 (98-107) mmol/L Carbon Dioxide 24 (22-30) mmol/L Anion Gap 11 mmol/L BUN 7 (7-17) mg/dL Creatinine 0.79 (0.52-1.04) mg/dL Est GFR (MDRD) Af Amer >60 (>60 ml/min/1.73 sqM) Est GFR (MDRD) Non-Af >60 (>60 ml/min/1.73 sqM) Glucose 98 (74-99) mg/dL Calcium 9.8 (8.4-10.2) mg/dL Total Bilirubin 0.4 (0.2-1.3) mg/dL AST 29 (14-36) U/L ALT 49 (9-52) U/L Alkaline Phosphatase 137 H (38-126) U/L Total Protein 7.4 (6.3-8.2) g/dL Albumin 4.5 (3.5-5.0) g/dL Amylase 57 (30-110) U/L Lipase 38 (23-300) U/L Urine Color Light Yellow Urine Appearance Clear (Clear) Urine pH 6.5 (5.0-8.0) Ur Specific [place] 1.006 (1.001-1.035) Urine Protein Negative (Negative) Urine Glucose (UA) Negative (Negative) Urine Ketones 1+ H (Negative) Urine Blood Small H (Negative) Urine Nitrite Negative (Negative) Urine Bilirubin Negative (Negative) Urine Urobilinogen <2.0 (<2.0) mg/dL Ur Leukocyte Esterase Negative (Negative) Urine RBC <1 (0-5) /hpf Urine WBC <1 (0-5) /hpf Ur Squamous Epith Cells 1 (0-4) /hpf Urine Bacteria Occasional H (None) /hpf Disposition Time of Disposition: 18:23 Decision Date: 09/03/16 Decision Time: 18:23 <Eliza Pérez - Last Filed: 09/03/16 19:36> <Jian Cruz - Last Filed: 09/03/16 19:57> Clinical Impression: Abdominal pain, Intractable abdominal pain, Gastroparesis Disposition: ADMITTED IP TO THIS [facility] Condition: Stable
[2016-09-03 17:48] LABS: Appearance,Urine Clear (Clear); Bacteria,Urine Occasional /hpf; Bilirubin,Urine Negative (Negative); Glucose,Urine (UA) Negative (Negative); Ketones,Urine 1+ (Negative); Leukocyte Esterase,Urine Negative (Negative); Nitrite,Urine Negative (Negative); PH, Urine 6.5 (5.0-8.0); Particle Count 1113; Protein,Urine Negative (Negative); RBC,Urine <1 /hpf (0-5); Specific Gravity,Urine 1.006 (1.001-1.035); Squamous Epithelial Cell,Urine 1 /hpf (0-4); UA Billing (MACRO vs. MICRO) MICRO; Urobilinogen,Urine <2.0 mg/dL (<2.0); WBC,Urine <1 /hpf (0-5)
[2016-09-03 17:49] LABS: Anisocytosis Slight; Basophils % (A) 0 %; CH 24.5; CHCM 31.9; Eosinophils # (A) 0.1 k/uL (0-0.7); Eosinophils % (A) 1 %; HCT 38.5 % (34.0-46.0); HDW 2.74; HGB 12.3 gm/dL (11.4-16.0); Hypochromasia Slight; Luc # (Auto) 0.15; Luc % (Auto) 1; Lymphocytes # (A) 1.9 k/uL (1.0-4.8); Lymphocytes % (A) 17 %; MCH 24.6 pg (25.0-35.0); MCHC 31.9 g/dL (31.0-37.0); MCV 77.1 fL (80.0-100.0); Mean Platelet Volume 6.2; Microcytosis Slight; Monocytes # (A) 0.6 k/uL (0-1.0); Monocytes % (A) 5 %; Neutrophils # (A) 8.6 k/uL (1.3-7.7); Neutrophils % (A) 76 %; RBC 4.99 m/uL (3.80-5.40); RDW 16.1 % (11.5-15.5); WBC 11.2 k/uL (3.8-10.6)
[2016-09-03 17:55] LABS: ALT 49 U/L (9-52); AST 29 U/L (14-36); Alkaline Phosphatase 137 U/L (38-126); Amylase 57 U/L (30-110); Anion Gap 11 mmol/L; Blood Urea Nitrogen 7 mg/dL (7-17); Calcium 9.8 mg/dL (8.4-10.2); Carbon Dioxide 24 mmol/L (22-30); Chloride 105 mmol/L (98-107); Glucose 98 mg/dL (74-99); Non-African American GFR(MDRD) >60 (>60 ml/min/1.73 sqM); Sodium 140 mmol/L (137-145); Total Bilirubin 0.4 mg/dL (0.2-1.3); Total Protein 7.4 g/dL (6.3-8.2)
--- NOTE | 2016-09-03 18:08 | XR ---
EXAMINATION TYPE: XR abdomen 2V DATE OF EXAM: 09/03/2016 COMPARISON: 08/30/2016 INDICATION: Pain TECHNIQUE: Single view abdomen upright view. Supine views were obtained. FINDINGS: There is a normal bowel gas pattern. Psoas margins are normal. No organomegaly is present. Electronic leads for gastric pump are present. Cholecystectomy clips are present. An IUD is present. IMPRESSION: 1. No acute abdominal process.
[2016-09-03] MEDS ORDERED: ACETAMINOPHEN TAB 325 MG TAB PO PRN (19:33)
[2016-09-03] MEDS ORDERED: NALOXONE 0.4 MG/ML 1 ML VIAL IV PRN (19:33)
[2016-09-03] MEDS ORDERED: HYDROcodone/APAP 5-325MG 1 EACH TAB PO PRN (19:33)
[2016-09-03] MEDS ORDERED: LORazepam 0.5 MG TAB PO PRN (19:35)
[2016-09-03] MEDS ORDERED: LORATADINE 10 MG TAB PO PRN (19:35)
[2016-09-03] MEDS: SODIUM CHLORIDE 0.9% 1,000 ML IV SCH (22:26)
[2016-09-03] MEDS: HYDROmorphone 1 MG/ML 1 ML SYRINGE IV PRN (22:27)
[2016-09-03 22:56] VITALS: BMI 35.4
[2016-09-03] MEDS: diphenhydrAMINE 50 MG/ML 1 ML VIAL IVP PRN (23:43)
[2016-09-03] MEDS: LORazepam 2 MG/ML SYRINGE IV PRN (23:44)
[2016-09-04] MEDS: HYDROmorphone 1 MG/ML 1 ML SYRINGE IV PRN ×6 (03:44→19:33)
[2016-09-04] MEDS: GABAPENTIN 300 MG CAP PO SCH ×4 (03:44→21:53)
[2016-09-04] MEDS: diphenhydrAMINE 50 MG/ML 1 ML VIAL IVP PRN ×4 (05:47→22:50)
[2016-09-04] MEDS: LORazepam 2 MG/ML SYRINGE IV PRN ×4 (05:47→22:49)
[2016-09-04] MEDS: SODIUM CHLORIDE 0.9% 1,000 ML IV SCH ×3 (05:52→17:19)
[2016-09-04 07:30] LABS: Anisocytosis Slight; Basophils % (A) 1 %; CH 24.5; CHCM 31.7; Eosinophils # (A) 0.2 k/uL (0-0.7); Eosinophils % (A) 2 %; HCT 35.4 % (34.0-46.0); HGB 11.2 gm/dL (11.4-16.0); Hypochromasia Slight; Luc # (Auto) 0.18; Luc % (Auto) 3; Lymphocytes # (A) 2.6 k/uL (1.0-4.8); Lymphocytes % (A) 37 %; MCH 24.4 pg (25.0-35.0); MCHC 31.5 g/dL (31.0-37.0); MCV 77.5 fL (80.0-100.0); Mean Platelet Volume 6.3; Microcytosis Slight; Monocytes # (A) 0.5 k/uL (0-1.0); Monocytes % (A) 7 %; Neutrophils # (A) 3.7 k/uL (1.3-7.7); Neutrophils % (A) 51 %; RBC 4.57 m/uL (3.80-5.40); RDW 16.2 % (11.5-15.5); WBC 7.2 k/uL (3.8-10.6); WBC (Perox) 7.97
[2016-09-04] MEDS ORDERED: NON-FORMULARY DRUG (Lansoprazole [Prevacid] 30 MG) PO SCH (07:30)
[2016-09-04] MEDS: THYROID, PORK 30 MG TAB PO SCH (07:32)
[2016-09-04 07:43] LABS: ALT 41 U/L (9-52); AST 22 U/L (14-36); Alkaline Phosphatase 103 U/L (38-126); Anion Gap 9 mmol/L; Blood Urea Nitrogen 8 mg/dL (7-17); Carbon Dioxide 24 mmol/L (22-30); Chloride 108 mmol/L (98-107); Glucose 76 mg/dL (74-99); Non-African American GFR(MDRD) >60 (>60 ml/min/1.73 sqM); Sodium 141 mmol/L (137-145); Total Bilirubin 0.5 mg/dL (0.2-1.3); Total Protein 6.3 g/dL (6.3-8.2)
[2016-09-04] MEDS: PANTOPRAZOLE 40 MG/10 ML VIAL IV SCH (08:40)
[2016-09-04] MEDS: DULoxetine HCL 20 MG CAPSULE.DR PO SCH (08:40)
[2016-09-04] MEDS ORDERED: NON-FORMULARY DRUG (Linaclotide [Linzess] 290 MCG) PO SCH (09:00)
--- NOTE | 2016-09-04 21:00 | HP ---
DATE OF ADMISSION: 09/03/2016 36-year-old was discharged from the hospital yesterday, comes back again after few hours because of recurrence of symptoms of abdominal pain, nausea, vomiting secondary to gastroparesis. Patient denied any fevers or chills. Patient had multiple episodes of gastroparesis flare-ups. Patient was on drug trail with ( ) in [facility] and patient had nausea, vomiting. Patient still has these symptoms which are a bit improved compared to yesterday. Patient is asking for ice chips. We will start her on diet and ice chips. Advance as tolerated at this point of time. Unfortunately, there is no good solution for her. Patient already had a gastric pacemaker which was subsequently removed. Patient follows up in [facility] for her gastroparesis. REVIEW OF SYSTEMS: CONSTITUTIONAL: No fever, no malaise, no fatigue. HEENT: No recent visual problems or hearing problems. Denied any sore throat. CARDIOVASCULAR: No chest pain, orthopnea, PND, no palpitations, no syncope. PULMONARY: No shortness of breath, no cough, no hemoptysis. GASTROINTESTINAL: As described in HPI. NEUROLOGICAL: No headaches, no weakness, no numbness. HEMATOLOGICAL: Denies any bleeding or petechiae. GENITOURINARY: Denies any burning micturition, frequency, or urgency. MUSCULOSKELETAL/RHEUMATOLOGICAL: Denies any joint pain, swelling, or any muscle pain. ENDOCRINE: Denies any polyuria or polydipsia. The rest of the 14 point review of systems is negative. Home Medications include: 1. Loratadine. 2. Linzess. 3. Oxycodone. 4. Acetaminophen. 5. [place] Thyroid. 6. Duloxetine. 7. Gabapentin. 8. Lansoprazole. 9. Lorazepam. PAST MEDICAL HISTORY: Hyperthyroidism, gastroparesis, section, cholecystectomy and tonsillectomy, C-sections in the past. Gastric pacemaker which was subsequently removed. SOCIAL HISTORY: Denied any smoking, alcohol abuse or any drug abuse. FAMILY HISTORY: Hypertension in father. Mother had type 2 diabetes mellitus. PHYSICAL EXAMINATION: VITAL SIGNS: Temperature 97.4, pulse of 74, respiratory rate 16. Blood pressure 130/80. Saturating at 97% on room air. GENERAL: The patient is alert and oriented x3, not in any acute distress. Well developed, well nourished. HEENT: Pupils are round and equally reacting to light. EOMI. No scleral icterus. No conjunctival pallor. Normocephalic, atraumatic. No pharyngeal erythema. No thyromegaly. CARDIOVASCULAR: S1 and S2 present. No murmurs, rubs, or gallops. PULMONARY: Chest is clear to auscultation, no wheezing or crackles. ABDOMEN: Soft, nontender, nondistended, normoactive bowel sounds. No palpable organomegaly. MUSCULOSKELETAL: No joint swelling or deformity. EXTREMITIES: No cyanosis, clubbing, or pedal edema. NEUROLOGICAL: Gross neurological examination did not reveal any focal deficits. SKIN: No rashes. LABORATORY DATA: CBC, CMP, no significant abnormality was appreciated. ASSESSMENT AND PLAN: 1. Gastroparesis, nausea, vomiting secondary to that. We will continue with symptomatic treatment with Ativan which helped her. We will verify whether patient is on ( ) which will be continued as well. 2. Hypothyroidism. 3. The patient has history of Edna-En-Y bypass surgery in the past. 4. Patient is not significantly dehydrated. We will cut down fluids to 75 mL per hour.
[2016-09-05] MEDS: HYDROmorphone 1 MG/ML 1 ML SYRINGE IV PRN ×7 (00:11→22:41)
[2016-09-05] MEDS: diphenhydrAMINE 50 MG/ML 1 ML VIAL IVP PRN ×4 (04:47→22:07)
[2016-09-05] MEDS: LORazepam 2 MG/ML SYRINGE IV PRN ×4 (04:48→22:07)
[2016-09-05] MEDS: THYROID, PORK 30 MG TAB PO SCH (07:13)
[2016-09-05] MEDS: SODIUM CHLORIDE 0.9% 1,000 ML IV SCH ×2 (07:14→16:29)
[2016-09-05 07:33] LABS: Anion Gap 10 mmol/L; Blood Urea Nitrogen 7 mg/dL (7-17); Calcium 9.3 mg/dL (8.4-10.2); Carbon Dioxide 23 mmol/L (22-30); Chloride 106 mmol/L (98-107); Glucose 70 mg/dL (74-99); Non-African American GFR(MDRD) >60 (>60 ml/min/1.73 sqM); Potassium 4.1 mmol/L (3.5-5.1); Sodium 139 mmol/L (137-145)
[2016-09-05] MEDS: PANTOPRAZOLE 40 MG/10 ML VIAL IV SCH (08:17)
[2016-09-05] MEDS: GABAPENTIN 300 MG CAP PO SCH ×3 (10:33→19:44)
[2016-09-05] MEDS: DULoxetine HCL 20 MG CAPSULE.DR PO SCH (10:33)
--- NOTE | 2016-09-05 23:07 | PN ---
DATE OF SERVICE: 09/05/2016 The patient appears to be doing a little bit better regarding symptoms of nausea, although not at her baseline. REVIEW OF SYSTEMS: CARDIOVASCULAR: No chest pain, no orthopnea, no PND, no palpitations. PULMONARY: Denied any shortness of breath. No cough or hemoptysis. GASTROINTESTINAL: As described in HPI. NEUROLOGIC: No headaches, no weakness, no numbness. Medications are reviewed. PHYSICAL EXAMINATION: Temperature 98.0, pulse of 95, respiratory rate of 16, blood pressure 107/60, saturating at 98% on room air. GENERAL: The patient is alert and oriented x3, not in any acute distress. Well developed, well nourished. HEENT: Pupils are round and equally reacting to light. EOMI. No scleral icterus. No conjunctival pallor. Normocephalic, atraumatic. No pharyngeal erythema. No thyromegaly. CARDIOVASCULAR: S1 and S2 present. No murmurs, rubs, or gallops. PULMONARY: Chest is clear to auscultation, no wheezing or crackles. ABDOMEN: Soft, nontender, nondistended, normoactive bowel sounds. No palpable organomegaly. MUSCULOSKELETAL: No joint swelling or deformity. EXTREMITIES: No cyanosis, clubbing, or pedal edema. NEUROLOGICAL: Gross neurological examination did not reveal any focal deficits. SKIN: No rashes. LABORATORY DATA: Basic metabolic profile within normal limits. ASSESSMENT AND PLAN: 1. Gastroparesis with nausea and vomiting. Continue with symptomatic treatment with Ativan. The patient is on ( ), which will be continued. 2. Hypothyroidism. 3. History of Edna-En-Y bypass surgery which will be continued. 4. Dehydration, improved.
[2016-09-06] MEDS: LORazepam 2 MG/ML SYRINGE IV PRN ×4 (04:04→23:43)
[2016-09-06] MEDS: diphenhydrAMINE 50 MG/ML 1 ML VIAL IVP PRN ×4 (04:04→23:42)
[2016-09-06] MEDS: HYDROmorphone 1 MG/ML 1 ML SYRINGE IV PRN ×7 (04:04→21:21)
[2016-09-06] MEDS: SODIUM CHLORIDE 0.9% 1,000 ML IV SCH ×2 (04:04→21:27)
[2016-09-06] MEDS: PANTOPRAZOLE 40 MG/10 ML VIAL IV SCH (08:44)
[2016-09-06] MEDS: GABAPENTIN 300 MG CAP PO SCH ×2 (08:46→17:47)
[2016-09-06] MEDS: DULoxetine HCL 20 MG CAPSULE.DR PO SCH (08:46)
[2016-09-06] MEDS: THYROID, PORK 30 MG TAB PO SCH (08:47)
--- NOTE | 2016-09-06 18:27 | PN ---
Patient is still having symptoms of nausea and vomiting and will continue symptomatic treatment. As per the request of the family, we will discuss with gastroparesis physician in [facility] today. I did get the phone numbers of the physician. REVIEW OF SYSTEMS: CARDIOVASCULAR: No chest pain, no orthopnea, no PND, no palpitations. PULMONARY: Denied any shortness of breath. No cough or hemoptysis. GASTROINTESTINAL: As described in history of present illness. NEUROLOGIC: No headaches, no weakness, no numbness. PHYSICAL EXAMINATION: VITAL SIGNS: Temperature 97.2, pulse of 69, respiratory rate of 16, blood pressure 122/69, saturating at 94% on room air. GENERAL: The patient is alert and oriented x3, not in any acute distress. Well developed, well nourished. HEENT: Pupils are round and equally reacting to light. EOMI. No scleral icterus. No conjunctival pallor. Normocephalic, atraumatic. No pharyngeal erythema. No thyromegaly. CARDIOVASCULAR: S1 and S2 present. No murmurs, rubs, or gallops. PULMONARY: Chest is clear to auscultation, no wheezing or crackles. ABDOMEN: Soft, nontender, nondistended, normoactive bowel sounds. No palpable organomegaly. MUSCULOSKELETAL: No joint swelling or deformity. EXTREMITIES: No cyanosis, clubbing, or pedal edema. NEUROLOGICAL: Gross neurological examination did not reveal any focal deficits. SKIN: No rashes. FINAL DIAGNOSES: 1. Gastroparesis, symptomatic management. Continue with Ativan on an as-needed basis and continue with ( ). 2. Hypothyroidism. 3. History of Edna-en-Y gastric bypass surgery. 4. Dehydration which improved. PLAN: As mentioned above.
[2016-09-07] MEDS: HYDROmorphone 1 MG/ML 1 ML SYRINGE IV PRN ×3 (00:13→06:13)
[2016-09-07] MEDS: GABAPENTIN 300 MG CAP PO SCH (00:17)
[2016-09-07] MEDS: diphenhydrAMINE 50 MG/ML 1 ML VIAL IVP PRN ×3 (06:05→22:06)
[2016-09-07] MEDS: THYROID, PORK 30 MG TAB PO SCH (06:06)
[2016-09-07] MEDS: LORazepam 2 MG/ML SYRINGE IV PRN ×3 (06:06→22:06)
[2016-09-07] MEDS ORDERED: HYDROmorphone 1 MG/ML 1 ML SYRINGE IM STA (11:35)
[2016-09-07] MEDS: DULoxetine HCL 20 MG CAPSULE.DR PO SCH (12:09)
[2016-09-07] MEDS: PANTOPRAZOLE 40 MG/10 ML VIAL IV SCH ×2 (12:09→19:25)
[2016-09-07] MEDS: GABAPENTIN 100 MG CAP PO SCH ×3 (12:09→19:26)
[2016-09-07] MEDS: SODIUM CHLORIDE 0.9% 1,000 ML IV SCH (13:07)
[2016-09-07] MEDS ORDERED: TEMAZEPAM 15 MG CAP PO PRN (13:38)
[2016-09-07] MEDS ORDERED: LIDOCAINE 2% INJ 20 MG/ML SQ ONE (15:05)
--- NOTE | 2016-09-07 15:05 | PN ---
DATE OF SERVICE: 09/07/2016 This 36-year-old woman was admitted with gastroparesis acute exacerbation, being closely monitored at this time. The patient was recently discharged from the hospital. The patient unable to keep anything down. The patient did have NG tube twice previously. The patient has also been seen by [facility] as well. The patient is being closely monitored at this time. The patient also had a gastric pacemaker implantation for gastroparesis. PAST MEDICAL HISTORY: Reviewed. REVIEW OF SYSTEMS: CARDIOVASCULAR: No angina or palpitations. RESPIRATORY: As mentioned earlier. GI: As mentioned earlier. : No dysuria. NERVOUS SYSTEM: No numbness or weakness. Current medications are reviewed and include: Tylenol 650 q.6 p.r.n., [place] 5 mg q.4 p.r.n., Benadryl 25 mg q.6, Cymbalta 20 mg, Neurontin 300 mg t.i.d., Dilaudid 0.5 mg q.4, Claritin, Ativan, Protonix 40 mg IV b.i.d., [place] Thyroid. PHYSICAL EXAM: Patient is alert and oriented x3. Pulse 70, blood 99/66, respirations 14, temperature is 98.4, pulse ox 93% on room air. HEENT: Conjunctivae normal. NECK: No jugular venous distension. CARDIOVASCULAR SYSTEM: S1, S2, muffled. RESPIRATORY: Breath sounds diminished at the bases. No rhonchi, no crackles. ABDOMEN: Soft. Mild diffuse discomfort on palpation. No guarding, no rigidity, no mass palpable. LEGS: No edema, no swelling. NERVOUS SYSTEM: Higher functions as mentioned. Moves all 4 limbs, no focal motor deficits. LYMPHATICS: No lymph node enlargement in the neck, axillae or groin. SKIN: No ulcer, rash, bleeding. LABS: WBC is 7.2, hemoglobin is 11.2 and UA noted. The CAT scan of the abdomen and pelvis, which was done recently on 08/30/2016 showed no acute abdomen, epigastric hiatal hernia stable. ASSESSMENT: 1. Acute gastroparesis AND acute exacerbation. 2. Dehydration present on admission. 3. Severe abdominal pain. 4. Microcytosis. 5. Gastroparesis, status post gastric pacemaker implantation. 6. History of J-tube x2. 7. History of hypothyroidism. 8. History of pancreatitis. 9. History of depression. 10. History of cholecystectomy. 11. History of section. 12. History of Edna-en-Y. 13. History of syndrome. 14. History of depression, not otherwise specified. 15. Anemia, microcytic for evaluation. 16. FULL CODE. RECOMMENDATIONS AND DISCUSSION: In this 36-year-old woman who presented with multiple complex medical issues. At this time, I recommend to continue current medications and symptomatic treatment. I would recommend a PICC line because of lack of IV access and discuss the start of this with the patient at length and discuss with the dietitian also. Would recommend small frequent feeds with either liquid or pureed food if the patient is able to tolerate that. Otherwise, the option will be to transfer the patient to the [facility] because the patient would like to have a J-tube insertion done at [facility] if this is necessary. Will continue to monitor. Repeat labs will be ordered. See orders for details. Prognosis guarded. Further recommendations to follow. MTDD
--- NOTE | 2016-09-07 15:31 | IR ---
EXAMINATION TYPE: IR cvc insert >=5 years DATE OF EXAM: 09/07/2016 COMPARISON: NONE CLINICAL HISTORY: IV access, gastroparesis Needs long-term intravenous access for total parenteral nu trition. PROCEDURE: After informed consent, the skin overlying the left basilic vein was localized with ultrasound and no facundo to be compressible and patent. An ultrasound image was obtained and submitted on the patient's c villasenor. The overlying skin was prepped and draped and Lidocaine was used for local anesthesia. A skin rosendo was made with a scalpel. Access was gained to the vein under ultrasound guidance with a 21 gau ge needle and a 0.018 inch wire was advanced. Access site was dilated with Peel-Away sheath and cath eter tailored to the appropriate length and advanced such that the distal tip is at the cavoatrial ju nction. Spot image was obtained verifying placement. Catheter was fixed to the skin with suture and a sterile dressing was placed following hemostasis. Catheter was aspirated and flushed with saline. Patient was discharged in stable condition without complication. Maximal barrier technique is utili zed. Ultrasound image is documented on the chart. Ultrasound used with sterile technique. Fluoro time and fluoroscopic images submitted to document procedure: 0.4 minutes fluoroscopy time, 99 intraoperative C-arm image documents the procedure IMPRESSION: STATUS POST ULTRASOUND AND FLUOROSCOPIC GUIDED PICC LINE PLACEMENT, READY FOR USE. THIS PROCEDURE WAS PERFORMED BY THE UNDERSIGNED.
[2016-09-07] MEDS: METOCLOPRAMIDE 5 MG/ML 2 ML VIAL IVP SCH ×2 (15:32→17:29)
[2016-09-07] MEDS: HYDROmorphone 1 MG/ML 1 ML SYRINGE IVP PRN ×3 (15:53→23:09)
[2016-09-07] MEDS: ERYTHROMYCIN IV 250 MG in SODIUM CHLORIDE 0.9% 250 ML IVPB SCH (16:03)
[2016-09-08] MEDS: METOCLOPRAMIDE 5 MG/ML 2 ML VIAL IVP SCH ×4 (00:55→17:55)
[2016-09-08] MEDS: ERYTHROMYCIN IV 250 MG in SODIUM CHLORIDE 0.9% 250 ML IVPB SCH ×3 (00:55→16:53)
[2016-09-08] MEDS: LORazepam 2 MG/ML SYRINGE IV PRN ×4 (03:13→22:19)
[2016-09-08] MEDS: HYDROmorphone 1 MG/ML 1 ML SYRINGE IVP PRN ×6 (03:13→20:54)
[2016-09-08] MEDS: diphenhydrAMINE 50 MG/ML 1 ML VIAL IVP PRN ×4 (03:13→22:20)
[2016-09-08] MEDS: THYROID, PORK 30 MG TAB PO SCH (04:55)
[2016-09-08] MEDS: SODIUM CHLORIDE 0.9% 1,000 ML IV SCH ×2 (05:00→17:55)
[2016-09-08 05:05] LABS: Anisocytosis Slight; Basophils # (A) 0.1 k/uL (0-0.2); Basophils % (A) 1 %; CH 24.7; CHCM 31.6; Eosinophils # (A) 0.1 k/uL (0-0.7); Eosinophils % (A) 2 %; HCT 38.4 % (34.0-46.0); HDW 2.72; Hypochromasia Slight; Luc # (Auto) 0.18; Luc % (Auto) 2; Lymphocytes # (A) 2.2 k/uL (1.0-4.8); Lymphocytes % (A) 31 %; MCH 24.6 pg (25.0-35.0); MCHC 31.3 g/dL (31.0-37.0); MCV 78.4 fL (80.0-100.0); Monocytes # (A) 0.5 k/uL (0-1.0); Monocytes % (A) 7 %; Neutrophils # (A) 4.1 k/uL (1.3-7.7); Neutrophils % (A) 57 %; RDW 16.3 % (11.5-15.5); WBC 7.2 k/uL (3.8-10.6); WBC (Perox) 7.28
[2016-09-08 05:36] LABS: Anion Gap 8 mmol/L; Blood Urea Nitrogen 5 mg/dL (7-17); C Reactive Protein 7.5 mg/L (<10.0); Calcium 9.3 mg/dL (8.4-10.2); Carbon Dioxide 25 mmol/L (22-30); Chloride 107 mmol/L (98-107); Glucose 86 mg/dL (74-99); Magnesium 1.9 mg/dL (1.6-2.3); Non-African American GFR(MDRD) >60 (>60 ml/min/1.73 sqM); Potassium 3.9 mmol/L (3.5-5.1); Sodium 140 mmol/L (137-145)
[2016-09-08] MEDS: PANTOPRAZOLE 40 MG/10 ML VIAL IV SCH ×2 (07:30→21:03)
[2016-09-08] MEDS: DULoxetine HCL 20 MG CAPSULE.DR PO SCH (10:13)
[2016-09-08] MEDS: GABAPENTIN 100 MG CAP PO SCH ×3 (10:13→21:04)
[2016-09-08] MEDS ORDERED: HYDROmorphone 1 MG/ML 1 ML SYRINGE IVP PRN (11:34)
[2016-09-08] MEDS ORDERED: [UNRECOGNIZED DRUG - OTHER] PO SCH (18:00)
--- NOTE | 2016-09-08 19:30 | PN ---
DATE OF SERVICE: 09/08/2016 This 36-year-old woman who was admitted with gastroparesis, acute exacerbation, was also complaining of abdominal pain. The patient was unable to tolerate regular food. The patient also has a PICC line for hydration at this time. The patient was also seen at [facility] and Dr. Marie at [facility]. I personally talked to Dr. Marie, who recommended continuing the current medications and cancel the outpatient appointment and to contact her office as soon as the patient is discharged from the hospital. Past medical history reviewed. REVIEW OF SYSTEMS: CARDIOVASCULAR SYSTEM: No angina, palpitations. RESPIRATORY SYSTEM: As mentioned earlier. GI: As mentioned earlier. : No dysuria, retention. NERVOUS SYSTEM: No numbness or weakness. Current medications are reviewed and include: 1. Tylenol 650 q.6 p.r.n. 2. [place] 5 mg p.r.n. 3. Benadryl. 4. Cymbalta. 5. Erythromycin 250 IV q.8. 6. Neurontin. 7. Dilaudid 0.5 q.6. 8. Claritin. 9. Ativan. 10. Reglan. 11. Narcan. 12. Protonix. 13. Restoril. 14. [place] Thyroid. PHYSICAL EXAMINATION: Patient is alert and oriented x3. Pulse is 82, blood pressure 135/85, respiration 16, temperature 98.8, pulse ox 96% on room air. HEENT: Conjunctivae normal. NECK: No jugular venous distention. CARDIOVASCULAR SYSTEM: S1, S2 muffled. RESPIRATORY SYSTEM: Breath sounds diminished at the bases. No rhonchi. No crackles. ABDOMEN: Soft. Mild diffuse discomfort on palpation. No guarding. No rigidity. No mass palpable. No hepatosplenomegaly. No ascites. LEGS: No edema. No swelling. NERVOUS SYSTEM: No focal deficit. LABS: WBC 7.2, hemoglobin 12. CMP within normal limits. UA noted. ASSESSMENT: 1. Acute gastroparesis, acute exacerbation. 2. Dehydration, present on admission. 3. Severe abdominal pain. 4. Status post PICC line because of lack of IV access. 5. Microcytosis. 6. Gastroparesis, status post gastric pacemaker implantation. 7. History J-tube x2. 8. History of hypothyroidism. 9. History of pancreatitis. 10. History of depression. 11. History of cholecystectomy. 12. History of section. 13. History of Edna-en-Y. 14. History of SMA syndrome. 15. History of depression not otherwise specified. 16. Anemia, microcytic, for evaluation. 17. FULL CODE. RECOMMENDATIONS AND DISCUSSION: I recommend to continue with the current medications, continue with symptomatic treatment. As mentioned earlier, I had a detailed discussion with [facility] surgical team, gastroenterological surgery, Dr. Marie, who was planning to continue current medications and recommended canceling her outpatient appointment. I will discuss with the family. Prognosis extremely guarded. If the patient is unable to tolerate p.o. food, patient might be a candidate for J-tube placement once again. Otherwise, continue the rest of the medications. Continue symptomatic treatment. Prognosis guarded. Further recommendations to follow.
[2016-09-09] MEDS: SODIUM CHLORIDE 0.9% 1,000 ML IV SCH ×2 (02:30→17:06)
[2016-09-09] MEDS: HYDROmorphone 1 MG/ML 1 ML SYRINGE IVP PRN ×7 (02:31→22:26)
[2016-09-09] MEDS: ERYTHROMYCIN IV 250 MG in SODIUM CHLORIDE 0.9% 250 ML IVPB SCH ×3 (03:14→14:43)
[2016-09-09] MEDS: METOCLOPRAMIDE 5 MG/ML 2 ML VIAL IVP SCH ×4 (03:16→18:17)
[2016-09-09] MEDS: diphenhydrAMINE 50 MG/ML 1 ML VIAL IVP PRN ×4 (04:57→22:25)
[2016-09-09] MEDS: LORazepam 2 MG/ML SYRINGE IV PRN ×4 (04:57→22:26)
[2016-09-09] MEDS: THYROID, PORK 30 MG TAB PO SCH (06:01)
[2016-09-09] MEDS: PANTOPRAZOLE 40 MG/10 ML VIAL IV SCH ×2 (07:53→20:04)
[2016-09-09] MEDS: GABAPENTIN 100 MG CAP PO SCH ×3 (07:54→20:04)
[2016-09-09] MEDS: DULoxetine HCL 20 MG CAPSULE.DR PO SCH (07:54)
[2016-09-09 13:15] LABS: Anion Gap 10 mmol/L; Blood Urea Nitrogen 7 mg/dL (7-17); Calcium 9.5 mg/dL (8.4-10.2); Carbon Dioxide 25 mmol/L (22-30); Chloride 106 mmol/L (98-107); Glucose 87 mg/dL (74-99); Non-African American GFR(MDRD) >60 (>60 ml/min/1.73 sqM); Potassium 4.2 mmol/L (3.5-5.1); Sodium 141 mmol/L (137-145)
[2016-09-09 13:24] LABS: Anisocytosis Slight; Basophils % (A) 1 %; CH 24.6; CHCM 31.6; Eosinophils # (A) 0.1 k/uL (0-0.7); Eosinophils % (A) 1 %; HCT 37.8 % (34.0-46.0); Hypochromasia Slight; Luc # (Auto) 0.15; Luc % (Auto) 2; Lymphocytes # (A) 2.1 k/uL (1.0-4.8); Lymphocytes % (A) 29 %; MCH 24.8 pg (25.0-35.0); MCHC 31.7 g/dL (31.0-37.0); MCV 78.1 fL (80.0-100.0); Mean Platelet Volume 6.5; Monocytes # (A) 0.4 k/uL (0-1.0); Monocytes % (A) 6 %; Neutrophils # (A) 4.6 k/uL (1.3-7.7); Neutrophils % (A) 62 %; RBC 4.84 m/uL (3.80-5.40); RDW 16.2 % (11.5-15.5); WBC 7.4 k/uL (3.8-10.6); WBC (Perox) 7.69
[2016-09-10] MEDS: METOCLOPRAMIDE 5 MG/ML 2 ML VIAL IVP SCH ×6 (03:12→21:24)
[2016-09-10] MEDS: ERYTHROMYCIN IV 250 MG in SODIUM CHLORIDE 0.9% 250 ML IVPB SCH ×3 (03:12→16:12)
[2016-09-10] MEDS: SODIUM CHLORIDE 0.9% 1,000 ML IV SCH ×2 (03:40→20:51)
[2016-09-10] MEDS: HYDROmorphone 1 MG/ML 1 ML SYRINGE IVP PRN ×7 (03:40→22:32)
[2016-09-10] MEDS: diphenhydrAMINE 50 MG/ML 1 ML VIAL IVP PRN ×4 (04:10→22:08)
[2016-09-10] MEDS: LORazepam 2 MG/ML SYRINGE IV PRN ×4 (04:10→22:08)
[2016-09-10] MEDS: THYROID, PORK 30 MG TAB PO SCH (05:30)
[2016-09-10 05:45] LABS: Anisocytosis Slight; Basophils # (A) 0.1 k/uL (0-0.2); Basophils % (A) 1 %; CH 24.7; CHCM 31.2; Eosinophils # (A) 0.2 k/uL (0-0.7); Eosinophils % (A) 3 %; HCT 36.4 % (34.0-46.0); HDW 2.64; HGB 11.3 gm/dL (11.4-16.0); Hypochromasia Slight; Luc # (Auto) 0.14; Luc % (Auto) 2; Lymphocytes # (A) 2.3 k/uL (1.0-4.8); Lymphocytes % (A) 37 %; MCH 24.6 pg (25.0-35.0); MCV 79.3 fL (80.0-100.0); Mean Platelet Volume 6.2; Monocytes # (A) 0.4 k/uL (0-1.0); Monocytes % (A) 6 %; Neutrophils # (A) 3.1 k/uL (1.3-7.7); Neutrophils % (A) 51 %; RBC 4.58 m/uL (3.80-5.40); WBC 6.1 k/uL (3.8-10.6); WBC (Perox) 6.14
[2016-09-10 06:02] LABS: Anion Gap 7 mmol/L; Blood Urea Nitrogen 6 mg/dL (7-17); Calcium 9.2 mg/dL (8.4-10.2); Carbon Dioxide 25 mmol/L (22-30); Chloride 108 mmol/L (98-107); Glucose 84 mg/dL (74-99); Non-African American GFR(MDRD) >60 (>60 ml/min/1.73 sqM); Sodium 140 mmol/L (137-145)
[2016-09-10] MEDS: PANTOPRAZOLE 40 MG/10 ML VIAL IV SCH ×2 (08:55→20:52)
[2016-09-10] MEDS: DULoxetine HCL 20 MG CAPSULE.DR PO SCH (08:55)
[2016-09-10] MEDS: GABAPENTIN 100 MG CAP PO SCH ×3 (08:55→20:59)
--- NOTE | 2016-09-10 10:24 | PN ---
DATE OF SERVICE: 09/09/2016 This 36-year-old woman who was admitted with gastroparesis also had dehydration. Patient also an episode of panic attack today. No chest pain or palpitations. No fever. The patient is unable to keep anything down at this time. On exam, alert and oriented x3. Pulse 120, blood pressure 125/79, respirations 16, temperature 98.3, pulse ox 97% on room air. HEENT: Conjunctivae normal. NECK: No jugular venous distention. CARDIOVASCULAR: S1 and S2, muffled. RESPIRATORY: Breath sounds diminished at the bases. No rhonchi, no crackles. ABDOMEN: Soft, bilateral diffuse discomfort on palpation. No guarding or rigidity. NERVOUS SYSTEM: No focal deficits. LABS: WBC 7.4, hemoglobin is 12. ASSESSMENT: 1. Acute severe gastroparesis with acute exacerbation with an inability to keep anything down. 2. Dehydration, present on admission. 3. Severe abdominal pain. 4. Acute on chronic pain syndrome. 5. Panic attacks, acute. 6. Status post PICC line because of lack of IV access. 7. Microcytosis. 8. Gastroparesis, status post gastric pacemaker implantation. 9. History J-tube x2. 10. History of hypothyroidism. 11. History of pancreatitis. 12. History of depression. 13. History of cholecystectomy. 14. History of section. 15. History of Edna-en-Y. 16. History of SMA syndrome. 17. History of depression, not otherwise specified. 18. Anemia, microcytic for evaluation. 19. FULL CODE: RECOMMENDATIONS AND DISCUSSION: Recommend to continue current medications. Continue symptomatic treatment. Otherwise, at this time I recommend continue the current medications, IV fluids. Prognosis guarded. Discussed with the patient and family, understands and agrees. Further recommendations to follow.
--- NOTE | 2016-09-10 21:59 | PN ---
DATE OF SERVICE: 09/10/2016 This 36-year-old woman who was admitted with acute gastroparesis also had severe dehydration; patient unable to keep anything down. Patient with abdominal pain also. Dr. Marie at [facility] has been contacted and recommended continuing with the current medications. The patient has also been seen by Pain Clinic in [facility]. Her oral intake continues to be extremely poor. The patient is on IV fluids. PICC line has been inserted. Past medical history reviewed. REVIEW OF SYSTEMS: CARDIOVASCULAR SYSTEM: No angina, palpitations. RESPIRATORY SYSTEM: As mentioned earlier. GI: As mentioned earlier. : No dysuria, retention. NERVOUS SYSTEM: No numbness or weakness. Current medications are reviewed and include: 1. Tylenol 650 q.6 p.r.n. 2. [place] 5 mg. 3. Benadryl. 4. Cymbalta 20 mg daily. 5. solumedrol 250 mg IV q.8. 6. Neurontin 100 mg p.o. t.i.d. 7. Dilaudid 0.5 mg q.3. 8. Claritin 10 mg daily. 9. Ativan 1 mg IV q.6 p.r.n. 10. Reglan 5 mg q.6 p.r.n. 11. Narcan. 12. Protonix. 13. IV fluids. 14. Restoril. 15. [place] Thyroid. PHYSICAL EXAMINATION: Patient is alert and oriented x3. Pulse 64, blood pressure 113/57, respiration 16, temperature 97.8, pulse ox 97% on room air. HEENT: Conjunctivae normal. NECK: No jugular venous distention. CARDIOVASCULAR SYSTEM: S1, S2 muffled. RESPIRATORY SYSTEM: Breath sounds diminished at the bases. A few scattered rhonchi and crackles. ABDOMEN: Soft, obese. Mild diffuse discomfort on palpation. No guarding. No rigidity. No mass palpable. LEGS: No edema. No swelling. NERVOUS SYSTEM: Higher functions as mentioned earlier. Moves all 4 limbs. No focal motor or sensory deficit. LYMPHATICS: No lymph node palpable in neck, axillae or groin. SKIN: No ulcer, rash, bleeding. LABS: WBC 6.1, hemoglobin 11.3. MCV 79.3. ASSESSMENT: 1. Acute severe gastroparesis with acute exacerbation with inability to keep anything down. 2. Dehydration, present on admission. 3. Severe abdominal pain. 4. Acute on chronic pain syndrome. 5. Panic attacks, acute. 6. Status post PICC line because of lack of IV access. 7. Microcytosis. 8. Gastroparesis, status post gastric pacemaker implantation. 9. History of J-tube x2. 10. History of hypothyroidism. 11. History of pancreatitis. 12. History of depression. 13. History of cholecystectomy. 14. History of section. 15. History of Edna-en-Y. 16. History of SMA syndrome. 17. History of depression not otherwise specified. 18. Anemia, microcytic, for evaluation. 19. FULL CODE. RECOMMENDATIONS AND DISCUSSION: I recommend to continue current medications, continue with the monitoring, continue with symptomatic treatment, continue with IV fluids. Closely monitor. I have offered patient to talk with Elliott Selby; however, they would like to hold off on that, and apparently her also talked to Pain Management in [facility]. Continue the current conservative line of management. Guarded prognosis. Further recommendations to follow. NEIDAD
[2016-09-11] MEDS: LORazepam 2 MG/ML SYRINGE IV PRN ×4 (03:13→21:09)
[2016-09-11] MEDS: diphenhydrAMINE 50 MG/ML 1 ML VIAL IVP PRN ×4 (03:14→21:09)
[2016-09-11] MEDS: HYDROmorphone 1 MG/ML 1 ML SYRINGE IVP PRN ×7 (03:34→21:37)
[2016-09-11] MEDS: SODIUM CHLORIDE 0.9% 1,000 ML IV SCH (03:37)
[2016-09-11] MEDS: THYROID, PORK 30 MG TAB PO SCH (05:13)
[2016-09-11 06:21] LABS: Anisocytosis Slight; Basophils % (A) 0 %; CH 24.9; CHCM 32.3; Eosinophils # (A) 0.2 k/uL (0-0.7); Eosinophils % (A) 2 %; HCT 36.4 % (34.0-46.0); HDW 2.77; HGB 11.7 gm/dL (11.4-16.0); Luc # (Auto) 0.17; Luc % (Auto) 3; Lymphocytes # (A) 2.4 k/uL (1.0-4.8); Lymphocytes % (A) 35 %; MCH 24.8 pg (25.0-35.0); MCHC 32.1 g/dL (31.0-37.0); MCV 77.3 fL (80.0-100.0); Mean Platelet Volume 5.9; Microcytosis Slight; Monocytes # (A) 0.4 k/uL (0-1.0); Monocytes % (A) 6 %; Neutrophils # (A) 3.6 k/uL (1.3-7.7); Neutrophils % (A) 54 %; RBC 4.71 m/uL (3.80-5.40); WBC 6.7 k/uL (3.8-10.6); WBC (Perox) 6.76
[2016-09-11 06:32] LABS: Anion Gap 8 mmol/L; Blood Urea Nitrogen 6 mg/dL (7-17); Calcium 9.2 mg/dL (8.4-10.2); Carbon Dioxide 26 mmol/L (22-30); Chloride 106 mmol/L (98-107); Glucose 79 mg/dL (74-99); Non-African American GFR(MDRD) >60 (>60 ml/min/1.73 sqM); Potassium 4.2 mmol/L (3.5-5.1); Sodium 140 mmol/L (137-145)
[2016-09-11] MEDS: PANTOPRAZOLE 40 MG/10 ML VIAL IV SCH ×2 (09:18→21:09)
[2016-09-11] MEDS: GABAPENTIN 100 MG CAP PO SCH ×3 (13:24→21:09)
[2016-09-11] MEDS: METOCLOPRAMIDE 5 MG/ML 2 ML VIAL IVP SCH ×2 (13:24→18:31)
[2016-09-11] MEDS: DULoxetine HCL 20 MG CAPSULE.DR PO SCH (16:49)
--- NOTE | 2016-09-11 20:54 | PN ---
DATE OF SERVICE: 09/11/2016 This 36-year-old woman who was admitted with acute severe gastroparesis and acute exacerbation of not able to keep anything down is being closely monitored. The patient still has some vomiting at this time. No chest pain or palpation. The patient had a pain clinic appointment pain clinic follow up in Hospital and as well as gastroenterology and motility surgery follow up with Dr. Cynthia Gallagher [place] tania. On exam, alert and oriented x3. Pulse is 101, blood pressure 160/82. Respiratory rate 16 and temperature 97.4, pulse ox 97% on room air. HEENT: Conjunctivae normal. NECK: No jugular venous distention. CARDIOVASCULAR: S1, S2 muffled. RESPIRATORY: Breath sounds diminished at the bases. No rhonchi. No crackles. ABDOMEN: Soft. Mild diffuse discomfort. No mass palpable. LEGS: No edema. No swelling. CENTRAL NERVOUS SYSTEM: No focal deficits. Nervous system unchanged. LABS: WBC 6.7, hemoglobin 11.7, sodium 142, potassium 4.2. ASSESSMENT: 1. Acute severe gastroparesis with acute exacerbation, with inability to keep anything down. 2. Dehydration, present on admission. 3. Severe abdominal pain. 4. Acute on chronic pain syndrome. 5. Panic attacks, acute. 6. Status post PICC line because of lack of IV access. 7. Microcytosis. 8. Gastroparesis status post gastric pacemaker implantation. 9. History of J-tube times two. 10. History of hypothyroidism. 11. History of pancreatitis. 12. History of depression. 13. History of cholecystectomy. 14. History of section. 15. History Edna-En-Y. 16. History of SMA syndrome. 17. History of depression, not otherwise specified. 18. Anemia, microcytic, for evaluation. 19. Mild anemia. 20. FULL CODE. RECOMMENDATIONS AND DISCUSSION: Continue current medications. Continue symptomatic treatment. Continue with monitoring. Otherwise, at this time, I would recommend continue to monitor closely. Continue with IV fluids. Encourage p.o. fluids. Closely follow. Further recommendations to follow. MTDD
[2016-09-12] MEDS: HYDROmorphone 1 MG/ML 1 ML SYRINGE IVP PRN ×8 (00:22→21:23)
[2016-09-12] MEDS: METOCLOPRAMIDE 5 MG/ML 2 ML VIAL IVP SCH ×4 (02:39→18:01)
[2016-09-12] MEDS: LORazepam 2 MG/ML SYRINGE IV PRN ×4 (03:33→22:40)
[2016-09-12] MEDS: diphenhydrAMINE 50 MG/ML 1 ML VIAL IVP PRN ×4 (03:34→22:40)
[2016-09-12] MEDS: SODIUM CHLORIDE 0.9% 1,000 ML IV SCH ×3 (06:04→20:54)
[2016-09-12 06:11] LABS: Basophils % (A) 1 %; CH 24.5; CHCM 32.5; Eosinophils # (A) 0.1 k/uL (0-0.7); Eosinophils % (A) 2 %; HCT 35.7 % (34.0-46.0); HDW 2.85; HGB 11.9 gm/dL (11.4-16.0); Luc # (Auto) 0.16; Luc % (Auto) 2; Lymphocytes # (A) 2.3 k/uL (1.0-4.8); Lymphocytes % (A) 35 %; MCH 25.2 pg (25.0-35.0); MCHC 33.3 g/dL (31.0-37.0); MCV 75.7 fL (80.0-100.0); Mean Platelet Volume 6.4; Microcytosis Slight; Monocytes # (A) 0.4 k/uL (0-1.0); Monocytes % (A) 5 %; Neutrophils # (A) 3.6 k/uL (1.3-7.7); Neutrophils % (A) 55 %; RBC 4.72 m/uL (3.80-5.40); RDW 15.7 % (11.5-15.5); WBC 6.6 k/uL (3.8-10.6); WBC (Perox) 6.71
[2016-09-12] MEDS: THYROID, PORK 30 MG TAB PO SCH (06:11)
[2016-09-12 06:26] LABS: Anion Gap 8 mmol/L; Blood Urea Nitrogen 6 mg/dL (7-17); Carbon Dioxide 24 mmol/L (22-30); Chloride 108 mmol/L (98-107); Glucose 82 mg/dL (74-99); Non-African American GFR(MDRD) >60 (>60 ml/min/1.73 sqM); Sodium 140 mmol/L (137-145)
[2016-09-12] MEDS: PANTOPRAZOLE 40 MG/10 ML VIAL IV SCH ×2 (10:45→21:24)
[2016-09-12] MEDS: DULoxetine HCL 20 MG CAPSULE.DR PO SCH (10:50)
[2016-09-12] MEDS: GABAPENTIN 100 MG CAP PO SCH ×3 (10:50→21:23)
[2016-09-12 14:10] VITALS: RESP 16
--- NOTE | 2016-09-12 14:47 | DS ---
DATE OF ADMISSION: 09/03/2016 DATE OF DISCHARGE: FINAL DIAGNOSES: 1. Acute severe gastroparesis with acute exacerbation with unable to keep anything down. 2. Dehydration, present on admission. 3. Severe abdominal pain. 4. Acute on chronic pain syndrome. 5. Panic attacks, acute. 6. Status post PICC line because of lack of IV access. 7. Microcytosis. 8. Gastroparesis status post gastric pacemaker implantation. 9. History of J-tube times two. 10. History of hypothyroidism. 11. History of pancreatitis. 12. History of depression. 13. History of cholecystectomy. 14. History of section. 15. History of Edna-En-Y. 16. History of SMA syndrome. 17. History of depression, not otherwise specified. 18. Anemia, microcytic, for evaluation. 19. FULL CODE. DISCHARGE DISPOSITION: The patient will be transferred to [facility] for further evaluation and treatment. Total time taken 35 minutes. The patient will be transferred in stable condition with guarded prognosis for further evaluation and treatment. HISTORY OF PRESENT ILLNESS: This 36 -year-old woman with past medical history of multiple complex medical issues, being followed Dr. Wood in the outpatient setting was admitted with gastroparesis acute exacerbation, as well as inability to keep anything down. The patient was treated with IV fluids and the patient had recurrent vomiting. The patient was treated symptomatically. Patient was also seen at [facility] as well as [facility] ( ) Clinic by Dr. Marie also. I have discussed the case with Dr. Marie who recommended to continue the current medications. We also discussed with [facility] as well. Erythromycin IV was recommended. On exam vital signs stable. CARDIOVASCULAR SYSTEM: S1, S2 muffled. Abdomen soft, nontender. Minimal diffuse discomfort. No guarding. No rigidity. Central nervous system: No focal deficits. LABS: WBC 6.6, hemoglobin 11.9, sodium 140, potassium 4.l The current medications are as follows: 1. Tylenol 650 q.6 p.r.n. 2. [place] 5 mg q.4 p.r.n. 3. Benadryl 25 mg q.6 p.r.n. 4. Cymbalta 20 mg p.o. daily. 5. Neurontin 100 mg p.o. t.i.d. 6. Dilaudid 0.5 mg IV q.3 p.r.n. 7. Claritin 10 mg p.o. daily. 8. Ativan 1 mg q.6h p.r.n. 9. Reglan 5 mg q.6 scheduled. 10. Narcan 0.2 q.2 p.r.n. 11. Cisapride 20 mg q.i.d. 12. Protonix 40 mg IV b.i.d. 13. Restoril 15 mg q.h.s. p.r.n. 14. [place] Thyroid 75 milligrams p.o. daily. Once again, the patient will be discharged in a stable condition with the guarded prognosis.
[2016-09-13] MEDS: HYDROmorphone 1 MG/ML 1 ML SYRINGE IVP PRN ×4 (01:50→11:31)
[2016-09-13] MEDS: LORazepam 2 MG/ML SYRINGE IV PRN ×2 (05:00→10:16)
[2016-09-13] MEDS: diphenhydrAMINE 50 MG/ML 1 ML VIAL IVP PRN ×2 (05:01→10:16)
[2016-09-13 07:21] VITALS: BP 113/55; PULSE 81; TEMP 97.7
[2016-09-13] MEDS: METOCLOPRAMIDE 5 MG/ML 2 ML VIAL IVP SCH ×2 (07:40→07:41)
[2016-09-13] MEDS: THYROID, PORK 30 MG TAB PO SCH (09:29)
[2016-09-13] MEDS: DULoxetine HCL 20 MG CAPSULE.DR PO SCH (09:29)
[2016-09-13] MEDS: PANTOPRAZOLE 40 MG/10 ML VIAL IV SCH (09:29)
[2016-09-13] MEDS: GABAPENTIN 100 MG CAP PO SCH (09:29)
== END 2016-09-13 11:57 | disposition short-term general hospital (02) | DRG 392 ==
LOC: EC 14:44 → 3SUR 19:38
PROVIDERS: ADMIT Internal Medicine; ATTEND Internal Medicine
PROC: 02HV33Z Insertion of Infusion Device into Superior Vena Cava, Percutaneous Approach (ICD-10-PCS; principal; 2016-09-07 14:45)
DX: K31.84 Gastroparesis (principal); K55.1 Chronic vascular disorders of intestine; G89.4 Chronic pain syndrome; E03.9 Hypothyroidism, unspecified; E86.0 Dehydration; D50.9 Iron deficiency anemia, unspecified; F41.0 Panic disorder [episodic paroxysmal anxiety]; F32.9 Major depressive disorder, single episode, unspecified; Z90.49 Acquired absence of other specified parts of digestive tract; Z82.49 Family history of ischemic heart disease and other diseases of the circulatory system; Z83.3 Family history of diabetes mellitus; Z79.899 Other long term (current) drug therapy; Z79.891 Long term (current) use of opiate analgesic; Z71.3 Dietary counseling and surveillance; Z87.19 Personal history of other diseases of the digestive system; Z98.84 Bariatric surgery status; Z96.89 Presence of other specified functional implants; Z86.39 Personal history of other endocrine, nutritional and metabolic disease
CPT/HCPCS: 36415; 36569; 74020; 76937; 77001; 80048; 80053; 81001; 82150; 83690; 83735; 85025; 85652; 86140

== ENCOUNTER 2017-02-09 18:49 | Emergency (ER) | payer BC ==
[2017-02-09] MEDS ORDERED: RX INFO: IV CONTRAST WAS GIVEN 1 EACH MISC MISCELLANE PRN (20:08)
[2017-02-09] MEDS ORDERED: SODIUM CHLORIDE 0.9% 1,000 ML IV STA (20:08)
[2017-02-09] MEDS ORDERED: ONDANSETRON 4 MG/2 ML VIAL IVP STA (20:08)
[2017-02-09] MEDS ORDERED: HYDROmorphone 0.5 MG/0.5 ML SYRINGE IVP STA (20:08)
[2017-02-09 21:03] LABS: Appearance,Urine Cloudy (Clear); Bacteria,Urine Rare /hpf; Bilirubin,Urine Negative (Negative); Glucose,Urine (UA) Negative (Negative); Ketones,Urine Negative (Negative); Leukocyte Esterase,Urine Trace (Negative); Nitrite,Urine Negative (Negative); PH, Urine 6.5 (5.0-8.0); Particle Count 1903; Protein,Urine Negative (Negative); RBC,Urine <1 /hpf (0-5); Specific Gravity,Urine 1.006 (1.001-1.035); Squamous Epithelial Cell,Urine 12 /hpf (0-4); UA Billing (MACRO vs. MICRO) MICRO; Urobilinogen,Urine <2.0 mg/dL (<2.0); WBC,Urine 3 /hpf (0-5)
[2017-02-09 21:10] LABS: Basophils # (A) 0.1 k/uL (0-0.2); Basophils % (A) 1 %; CHCM 30.9; Eosinophils # (A) 0.3 k/uL (0-0.7); Eosinophils % (A) 4 %; HCT 34.6 % (34.0-46.0); HGB 10.6 gm/dL (11.4-16.0); Hypochromasia Moderate; Luc # (Auto) 0.14; Luc % (Auto) 2; Lymphocytes # (A) 2.3 k/uL (1.0-4.8); Lymphocytes % (A) 25 %; MCH 23.8 pg (25.0-35.0); MCHC 30.6 g/dL (31.0-37.0); MCV 77.9 fL (80.0-100.0); Mean Platelet Volume 6.3; Monocytes # (A) 0.6 k/uL (0-1.0); Monocytes % (A) 7 %; Neutrophils # (A) 5.8 k/uL (1.3-7.7); Neutrophils % (A) 63 %; RBC 4.44 m/uL (3.80-5.40); RDW 15.7 % (11.5-15.5); WBC 9.2 k/uL (3.8-10.6); WBC (Perox) 8.99
[2017-02-09 21:18] LABS: ALT 31 U/L (9-52); AST 18 U/L (14-36); Alkaline Phosphatase 123 U/L (38-126); Amylase 64 U/L (30-110); Anion Gap 12 mmol/L; Blood Urea Nitrogen 8 mg/dL (7-17); Calcium 9.7 mg/dL (8.4-10.2); Carbon Dioxide 22 mmol/L (22-30); Chloride 106 mmol/L (98-107); Glucose 79 mg/dL (74-99); Non-African American GFR(MDRD) >60 (>60 ml/min/1.73 sqM); Sodium 140 mmol/L (137-145); Total Bilirubin 0.1 mg/dL (0.2-1.3); Total Protein 7.6 g/dL (6.3-8.2)
[2017-02-09] MEDS ORDERED: ACETAMINOPHEN TAB 500 MG TAB PO STA (21:40)
[2017-02-09] MEDS ORDERED: SODIUM CHLORIDE 0.9% 1,000 ML IV ONE (21:41)
--- NOTE | 2017-02-09 21:41 | ED ---
Abdominal Pain HPI - General Chief Complaint: Abdominal Pain Stated Complaint: Abd.pain/post surgery Time Seen by Provider: 02/09/17 19:59 Source: patient, RN notes reviewed, old records reviewed Mode of arrival: ambulatory Limitations: no limitations - History of Present Illness Initial Comments: Patient is a 36-year-old female chief complaint of severe abdominal pain over her hernia repair incision. Patient reports that she was washing her dog's, and felt a ripping sensation. She reports she fell that she noticed a bulge afterward. Patient states that she is had no nausea or vomiting. No change in bowel habits. This occurred at 2:30 PM. Patient states that whenever she does certain movements the pain becomes severe. She's had multiple abdominal surgeries and a hernia repair, G-tube placement. Patient had surgery in December for hernia repair and a G-tube was placed. Patient's had a surgical history including 3 C-sections, Edna-en-Y in January 2015, was placed as well as a gastric pacer. - Related Data Home Medications Medication Instructions Recorded Confirmed Loratadine [Claritin] 10 mg PO DAILY PRN 05/11/14 02/09/17 Linaclotide [Linzess] 290 mcg PO DAILY 01/05/15 02/09/17 oxyCODONE-APAP 10-325MG [Percocet 1 tab PO Q6HR PRN MDD 4 tablets 08/28/1502/09 10-325 mg] Thyroid,Pork [Nature-Throid] 81.25 mg PO DAILY 10/27/15 02/09/17 Lansoprazole [Prevacid] 30 mg PO AC-BID 08/30/16 02/09/17 Propulsid 20mg 20 mg PO QID 02/09/17 02/09/17 Previous Rx's Medication Instructions Recorded LORazepam [Ativan] 0.5 mg PO TID PRN #30 tab 09/03/16 Allergies Allergy/AdvReac Type Severity Reaction Status Date / Time No Known Allergies Allergy Verified 02/09/17 20:19 Review of Systems ROS Statement: Those systems with pertinent positive or pertinent negative responses have been documented in the HPI. ROS Other: All systems not noted in ROS Statement are negative. Past Medical History Past Medical History: Thyroid Disorder Additional Past Medical History / Comment(s): PANCREATITIS, HYPOTHYROID, gastroparesis, depression History of Any Multi-Drug Resistant Organisms: None Reported Past Surgical History: Section, Cholecystectomy, Tonsillectomy Additional Past Surgical History / Comment(s): X3 C-SECTIONS, Edna-en-y in Jan 2015 j tube-feeding tube gastric pacer Past Anesthesia/Blood Transfusion Reactions: No Reported Reaction Past Psychological History: Depression Smoking Status: Never smoker Past Alcohol Use History: Rare Past Drug Use History: None Reported - Past Family History Father Family Medical History: Hypertension Additional Family Medical History / Comment(s): DAD IS 52 AND IN [facility] Mother Additional Family Medical History / Comment(s): MOM IS 52 AND IN [facility] General Exam - General Exam Comments Initial Comments: 36-year-old female. Patient is on appear to be in any acute distress. She does appear to be in pain whenever she makes movements. Limitations: no limitations General appearance: alert, in no apparent distress Head exam: Present: atraumatic, normocephalic, normal inspection Eye exam: Present: normal appearance, PERRL, EOMI. Absent: scleral icterus, conjunctival injection, periorbital swelling ENT exam: Present: normal exam, mucous membranes moist Neck exam: Present: normal inspection. Absent: tenderness, meningismus, lymphadenopathy Respiratory exam: Present: normal lung sounds bilaterally. Absent: respiratory distress, wheezes, rales, rhonchi, stridor Cardiovascular Exam: Present: regular rate, normal rhythm, normal heart sounds. Absent: systolic murmur, diastolic murmur, rubs, gallop, clicks GI/Abdominal exam: Present: soft, tenderness (Patient has significant tenderness near her umbilical incision site.), normal bowel sounds. Absent: distended, guarding, rebound, rigid Extremities exam: Present: normal inspection, full ROM, normal capillary refill. Absent: tenderness, pedal edema, joint swelling, calf tenderness Back exam: Present: normal inspection Neurological exam: Present: alert, oriented X3, CN II-XII intact Psychiatric exam: Present: normal affect, normal mood Skin exam: Present: warm, dry, intact, normal color. Absent: rash Course Vital Signs 02/09/17 02/09/17 02/09/17 19:03 21:38 22:36 Temperature 99.3 F 100.2 F H 99.0 F Pulse Rate 122 H 111 H 115 H Respiratory 20 20 22 Rate Blood Pressure 170/103 135/77 137/59 O2 Sat by Pulse 100 100 99 Oximetry - Reevaluation(s) Reevaluation #1: 02/09/17 21:41 As noted the patient has has a fever 100.2, lactic acid and blood cultures obtained. Medical Decision Making - Medical Decision Making Patient is a 36-year-old female presents emergency Department chief complaint of abdominal pain near her ventral hernia repair site. She reports that the pain occurred after she was feeding her dogs. Patient has a history of multiple surgeries. Patient is concerned that she notices a bulge in her right side of her ventral hernia. Patient initially arrived somewhat tachycardic, related to pain. No fever noted at that time. Patient was given IV fluids labwork obtained. All her lab work was reviewed and within normal limits. Patient underwent CT of her abdomen and pelvis. There is no evidence of any acute worsening hernia. Patient's pain is worse whenever she is certain movements. She reports a prior to that she's never had any fever or chills. I did do blood cultures and lactic acid when he noted the patient's had a few 100.2. This time we discussed the patient CT shows no worsening hernia or any other abdominal abnormalities. Again all of her labwork was reviewed and within normal limits. Discussed that she needs to follow closely with her surgeon in [facility]. Discussed that if fevers continue persist or any worsening abdominal pain occurs that she should return to the emergency department. Discussed close follow-up with her surgeon tomorrow. Patient agrees to treatment plan will comply. Return parameters were discussed. Discussed case with Dr. Faust. - Lab Data Result diagrams: 02/09/17 20:54 02/09/17 20:54 Lab Results 02/09/17 02/09/17 02/09/17 Range/Units 20:43 20:43 20:54 WBC (3.8-10.6) k/uL RBC (3.80-5.40) m/uL Hgb (11.4-16.0) gm/dL Hct (34.0-46.0) % MCV (80.0-100.0) fL MCH (25.0-35.0) pg MCHC (31.0-37.0) g/dL RDW (11.5-15.5) % Plt Count (150-450) k/uL Neutrophils % % Lymphocytes % % Monocytes % % Eosinophils % % Basophils % % Neutrophils # (1.3-7.7) k/uL Lymphocytes # (1.0-4.8) k/uL Monocytes # (0-1.0) k/uL Eosinophils # (0-0.7) k/uL Basophils # (0-0.2) k/uL Hypochromasia Sodium 140 (137-145) mmol/L Potassium 4.0 (3.5-5.1) mmol/L Chloride 106 (98-107) mmol/L Carbon Dioxide 22 (22-30) mmol/L Anion Gap 12 mmol/L BUN 8 (7-17) mg/dL Creatinine 0.78 (0.52-1.04) mg/dL Est GFR (MDRD) Af Amer >60 (>60 ml/min/1.73 sqM) Est GFR (MDRD) Non-Af >60 (>60 ml/min/1.73 sqM) Glucose 79 (74-99) mg/dL Plasma Lactic Acid Frank (0.7-2.0) mmol/L Calcium 9.7 (8.4-10.2) mg/dL Total Bilirubin 0.1 L (0.2-1.3) mg/dL AST 18 (14-36) U/L ALT 31 (9-52) U/L Alkaline Phosphatase 123 (38-126) U/L Total Protein 7.6 (6.3-8.2) g/dL Albumin 4.3 (3.5-5.0) g/dL Amylase 64 (30-110) U/L Lipase 40 (23-300) U/L Urine Color Light Yellow Urine Appearance Cloudy H (Clear) Urine pH 6.5 (5.0-8.0) Ur Specific [place] 1.006 (1.001-1.035) Urine Protein Negative (Negative) Urine Glucose (UA) Negative (Negative) Urine Ketones Negative (Negative) Urine Blood Negative (Negative) Urine Nitrite Negative (Negative) Urine Bilirubin Negative (Negative) Urine Urobilinogen <2.0 (<2.0) mg/dL Ur Leukocyte Esterase Trace H (Negative) Urine RBC <1 (0-5) /hpf Urine WBC 3 (0-5) /hpf Ur Squamous Epith Cells 12 H (0-4) /hpf Urine Bacteria Rare H (None) /hpf Urine HCG, Qual Not Detected (Not Detectd) 02/09/17 02/09/17 Range/Units 20:54 21:55 WBC 9.2 (3.8-10.6) k/uL RBC 4.44 (3.80-5.40) m/uL Hgb 10.6 L (11.4-16.0) gm/dL Hct 34.6 (34.0-46.0) % MCV 77.9 L (80.0-100.0) fL MCH 23.8 L (25.0-35.0) pg MCHC 30.6 L (31.0-37.0) g/dL RDW 15.7 H (11.5-15.5) % Plt Count 456 H (150-450) k/uL Neutrophils % 63 % Lymphocytes % 25 % Monocytes % 7 % Eosinophils % 4 % Basophils % 1 % Neutrophils # 5.8 (1.3-7.7) k/uL Lymphocytes # 2.3 (1.0-4.8) k/uL Monocytes # 0.6 (0-1.0) k/uL Eosinophils # 0.3 (0-0.7) k/uL Basophils # 0.1 (0-0.2) k/uL Hypochromasia Moderate Sodium (137-145) mmol/L Potassium (3.5-5.1) mmol/L Chloride (98-107) mmol/L Carbon Dioxide (22-30) mmol/L Anion Gap mmol/L BUN (7-17) mg/dL Creatinine (0.52-1.04) mg/dL Est GFR (MDRD) Af Amer (>60 ml/min/1.73 sqM) Est GFR (MDRD) Non-Af (>60 ml/min/1.73 sqM) Glucose (74-99) mg/dL Plasma Lactic Acid Frank 0.7 (0.7-2.0) mmol/L Calcium (8.4-10.2) mg/dL Total Bilirubin (0.2-1.3) mg/dL AST (14-36) U/L ALT (9-52) U/L Alkaline Phosphatase (38-126) U/L Total Protein (6.3-8.2) g/dL Albumin (3.5-5.0) g/dL Amylase (30-110) U/L Lipase (23-300) U/L Urine Color Urine Appearance (Clear) Urine pH (5.0-8.0) Ur Specific [place] (1.001-1.035) Urine Protein (Negative) Urine Glucose (UA) (Negative) Urine Ketones (Negative) Urine Blood (Negative) Urine Nitrite (Negative) Urine Bilirubin (Negative) Urine Urobilinogen (<2.0) mg/dL Ur Leukocyte Esterase (Negative) Urine RBC (0-5) /hpf Urine WBC (0-5) /hpf Ur Squamous Epith Cells (0-4) /hpf Urine Bacteria (None) /hpf Urine HCG, Qual (Not Detectd) - Radiology Data Radiology results: report reviewed Physical computed tomography scan there has been surgery on the anterior abdominal wall and decrease in the ventral hernia. There appears to be a subcutaneous chronic hematoma or seroma in the midline anterior abdomen. There is an apparent percutaneous jejunostomy tube noted. No sign of recurrent abdominal wall hernia. Disposition Clinical Impression: Abdominal pain, S/P hernia repair Disposition: HOME SELF-CARE Condition: Good Instructions: Abdominal Pain (ED) Additional Instructions: Patient rest and close follow-up with her surgeon. Return to emergency department if any worsening signs or symptoms occur. Recommended to take Motrin or Tylenol for pain, and at home pain medication. Referrals: Karthikeyan Pedro MD [Primary Care Provider] - 1-2 days Time of Disposition: 22:31
[2017-02-09] MEDS ORDERED: SODIUM CHLORIDE 0.9% 1,000 ML IV SCH (21:45)
--- NOTE | 2017-02-09 21:49 | CT ---
EXAMINATION TYPE: CT abdomen pelvis w con DATE OF EXAM: 02/09/2017 COMPARISON: 08/30/2016 HISTORY: Right upper quadrant pain. Incisional hernia repair [address] DLP: 1040.90 mGycm Automated exposure control for dose reduction was used. TECHNIQUE: Helical acquisition of images was performed from the lung bases through the pelvis. CONTRAST: Performed without Oral Contrast and with IV Contrast, patient injected with 100 mL of Omnipaque 300. FINDINGS: Lung bases are clear of consolidation. There is no pleural effusion. Heart size is normal. There are clips from cholecystectomy. There is irregular 3 x 2 cm fluid collection on the subcutaneou s anterior abdominal wall consistent with a seroma. There is incision surgery changes on the anterior midline abdomen. There is implanted device over the right anterior abdomen. Liver shows no focal defects. There are clips from cholecystectomy. Bile ducts are not dilated. Splee n appears normal. There is no sign of pancreatic mass. There is surgical tubing in the upper abdomen. There is no adrenal mass. Kidneys show satisfactory contrast opacification. There is no hydronephrosi s. IUD is noted. Bladder distends smoothly. There is no sign of a pelvic mass. There is a 3 cm cyst o n the right ovary. I see no intestinal wall thickening. There is no ascites. There is no sign of a carlos wel obstruction. IMPRESSION: SINCE THE LAST CT SCAN THERE IS BEEN SURGERY ON THE ANTERIOR ABDOMINAL WALL AND DECREASE IN THE VENTR AL HERNIA. THERE IS SUBCUTANEOUS CHRONIC HEMATOMA OR SEROMA IN THE MIDLINE ANTERIOR ABDOMEN. THERE IS AN APPARENT PERCUTANEOUS JEJUNOSTOMY TUBE NOTED. NO SIGN OF RECURRENT ABDOMINAL WALL HERNIA.
[2017-02-09] MEDS ORDERED: HYDROmorphone 1 MG/ML 1 ML SYRINGE IVP STA (22:37)
[2017-02-09 23:19] VITALS: BP 126/65; PULSE 108; RESP 19; TEMP 98.3
== END 2017-02-09 23:21 | disposition home or self-care (01) ==
LOC: EC 18:49
DX: R10.9 Unspecified abdominal pain (principal); E03.9 Hypothyroidism, unspecified; F32.9 Major depressive disorder, single episode, unspecified; Z79.899 Other long term (current) drug therapy; Z98.890 Other specified postprocedural states; Z53.29 Procedure and treatment not carried out because of patient's decision for other reasons
CPT/HCPCS: 36415; 80053; 82150; 83605; 83690; 85025; 81001; 81025; 87040; 74177; 99285; 96374; 96376; 96361 ×3; J1170 ×2; Q9967

== ENCOUNTER 2017-02-16 00:20 | Emergency (ER) | payer BC ==
[2017-02-16] MEDS ORDERED: LORazepam 2 MG/ML INJ ONE (03:56)
[2017-02-16] MEDS ORDERED: diphenhydrAMINE 50 MG/ML 1 ML VIAL ONE (03:56)
[2017-02-16] MEDS ORDERED: TRIMETHOBENZAMIDE 100 MG/ML 2 ML VIAL IM ONE ×2 (03:56→04:30)
[2017-02-16] MEDS ORDERED: HYDROmorphone 1 MG/ML 1 ML SYRINGE ONE (03:56)
[2017-02-16] MEDS ORDERED: SODIUM CHLORIDE 0.9% 1,000 ML BAG ONE (03:56)
[2017-02-16 04:18] LABS: ALT 69 U/L (9-52); AST 76 U/L (14-36); Alkaline Phosphatase 131 U/L (38-126); Amylase 77 U/L (30-110); Anion Gap 14 mmol/L; Blood Urea Nitrogen 13 mg/dL (7-17); Calcium 9.7 mg/dL (8.4-10.2); Carbon Dioxide 16 mmol/L (22-30); Chloride 110 mmol/L (98-107); Glucose 90 mg/dL (74-99); Non-African American GFR(MDRD) >60 (>60 ml/min/1.73 sqM); Potassium 4.4 mmol/L (3.5-5.1); Sodium 140 mmol/L (137-145); Total Bilirubin 0.4 mg/dL (0.2-1.3); Total Protein 7.3 g/dL (6.3-8.2)
[2017-02-16 04:54] LABS: Basophils # (A) 0.1 k/uL (0-0.2); Basophils % (A) 1 %; CH 23.4; CHCM 28.8; Eosinophils # (A) 0.2 k/uL (0-0.7); Eosinophils % (A) 2 %; HCT 40.5 % (34.0-46.0); HDW 2.71; HGB 11.6 gm/dL (11.4-16.0); Hypochromasia Marked; Luc # (Auto) 0.17; Luc % (Auto) 1; Lymphocytes # (A) 2.3 k/uL (1.0-4.8); Lymphocytes % (A) 20 %; MCH 23.3 pg (25.0-35.0); MCHC 28.7 g/dL (31.0-37.0); MCV 81.3 fL (80.0-100.0); Mean Platelet Volume 6.4; Monocytes # (A) 0.5 k/uL (0-1.0); Monocytes % (A) 5 %; Neutrophils # (A) 8.6 k/uL (1.3-7.7); Neutrophils % (A) 72 %; RBC 4.98 m/uL (3.80-5.40); RDW 15.4 % (11.5-15.5); WBC 11.9 k/uL (3.8-10.6); WBC (Perox) 12.67
--- NOTE | 2017-02-16 05:53 | XR ---
EXAM: XR Abdomen Complete, 2 or More Views CLINICAL HISTORY: Prior on synapse, vomitng, abd pain TECHNIQUE: Frontal view of the abdomen/pelvis with upright view of the abdomen. COMPARISON: CT abdomen and pelvis 02/09/17, abdomen. 09-03-16 FINDINGS: Intraperitoneal space: IUD in the pelvis. No free air. Gastrointestinal tract: Nonspecific gassy small bowel with air-fluid level. May be mild ileus. No bowel obstruction. Bones/joints: Unremarkable. Tubes, lines and devices: Catheter overlying the left abdomen. Other findings: Electrode overlying the right lower abdomen. IMPRESSION: Nonspecific gassy small bowel with air-fluid level. May be mild ileus. No bowel obstruction.
== END 2017-02-16 04:47 | disposition home or self-care (01) ==
LOC: EC 00:20
DX: K31.84 Gastroparesis (principal); R19.7 Diarrhea, unspecified; Z90.49 Acquired absence of other specified parts of digestive tract; Z98.84 Bariatric surgery status
CPT/HCPCS: 36415; 74000; 80053; 82150; 83605; 83690; 85025; 96361; 96372; 96374; 96375; 96376; 99284

== ENCOUNTER 2017-02-16 12:59 | Emergency (ER) | payer BC ==
[2017-02-16] MEDS ORDERED: HYDROmorphone 1 MG/ML 1 ML SYRINGE IM STA (13:25)
[2017-02-16 13:42] VITALS: PULSE 84; RESP 18
[2017-02-16 13:55] LABS: Basophils % (A) 0 %; CH 23.8; CHCM 30.9; Eosinophils # (A) 0.1 k/uL (0-0.7); Eosinophils % (A) 1 %; HCT 40.8 % (34.0-46.0); HDW 2.89; HGB 12.4 gm/dL (11.4-16.0); Hypochromasia Moderate; Luc # (Auto) 0.09; Luc % (Auto) 1; Lymphocytes # (A) 1.7 k/uL (1.0-4.8); Lymphocytes % (A) 10 %; MCH 23.4 pg (25.0-35.0); MCHC 30.3 g/dL (31.0-37.0); MCV 77.2 fL (80.0-100.0); Mean Platelet Volume 5.9; Microcytosis Slight; Monocytes # (A) 0.4 k/uL (0-1.0); Monocytes % (A) 3 %; Neutrophils # (A) 13.7 k/uL (1.3-7.7); Neutrophils % (A) 86 %; RBC 5.29 m/uL (3.80-5.40); RDW 15.4 % (11.5-15.5); WBC (Perox) 16.02
[2017-02-16 14:01] LABS: ALT 62 U/L (9-52); AST 39 U/L (14-36); Alkaline Phosphatase 144 U/L (38-126); Anion Gap 16 mmol/L; Blood Urea Nitrogen 12 mg/dL (7-17); Calcium 10.4 mg/dL (8.4-10.2); Carbon Dioxide 15 mmol/L (22-30); Chloride 112 mmol/L (98-107); Glucose 95 mg/dL (74-99); Non-African American GFR(MDRD) >60 (>60 ml/min/1.73 sqM); Potassium 4.2 mmol/L (3.5-5.1); Sodium 143 mmol/L (137-145); Total Bilirubin 0.3 mg/dL (0.2-1.3)
--- NOTE | 2017-02-16 14:02 | XR ---
EXAMINATION TYPE: XR chest 2V DATE OF EXAM: 02/16/2017 COMPARISON: Chest x-ray August 31, 2016. HISTORY: Chest pain. TECHNIQUE: Frontal and lateral views of the chest are obtained. FINDINGS: There is no focal air space opacity, pleural effusion, or pneumothorax seen. The cardiac silhouette size is within normal limits. The osseous structures are intact. Cholecystectomy clips a re noted. IMPRESSION: No acute cardiopulmonary process currently.
[2017-02-16] MEDS ORDERED: diphenhydrAMINE 50 MG/ML 1 ML VIAL IVP STA (14:10)
[2017-02-16] MEDS ORDERED: LORazepam 2 MG/ML INJ IV STA (14:10)
--- NOTE | 2017-02-16 14:12 | ED ---
Chest Pain HPI - General Chief Complaint: Chest Pain Stated Complaint: Chest Pain/SOB Time Seen by Provider: 02/16/17 13:10 Source: patient, family Mode of arrival: wheelchair Limitations: no limitations - History of Present Illness Initial Comments: Patient complains of chest pain. Pain is November the chest. It does not radiate anywhere. Nothing makes it better or worse. She has no lightheadedness or dizziness. She has no neck pain or stiffness. She has no change in vision or hearing. She has no palpitations. She denies any recent long plane or car rides. She has no pain or swelling the legs. - Related Data Home Medications Medication Instructions Recorded Confirmed Loratadine [Claritin] 10 mg PO DAILY PRN 05/11/14 02/16/17 Linaclotide [Linzess] 290 mcg PO DAILY 01/05/15 02/16/17 oxyCODONE-APAP 10-325MG [Percocet 1 tab PO Q6HR PRN MDD 4 tablets 08/28/1502/16 10-325 mg] Thyroid,Pork [Nature-Throid] 81.25 mg PO DAILY 10/27/15 02/16/17 Lansoprazole [Prevacid] 30 mg PO AC-BID 08/30/16 02/16/17 Propulsid 20mg 20 mg PO QID 02/09/17 02/16/17 Previous Rx's Medication Instructions Recorded LORazepam [Ativan] 0.5 mg PO TID PRN #30 tab 09/03/16 Allergies Allergy/AdvReac Type Severity Reaction Status Date / Time No Known Allergies Allergy Verified 02/16/17 13:42 Review of Systems ROS Statement: Those systems with pertinent positive or pertinent negative responses have been documented in the HPI. ROS Other: All systems not noted in ROS Statement are negative. EKG Findings - EKG Comments: EKG Findings:: Twelve-lead EKG shows ventricular rate 88 bpm, normal FL interval and QRS complex is, no ST elevation or depression, interpreted by me as normal sinus rhythm. Past Medical History Past Medical History: Thyroid Disorder Additional Past Medical History / Comment(s): PANCREATITIS, HYPOTHYROID, gastroparesis, depression History of Any Multi-Drug Resistant Organisms: None Reported Past Surgical History: Section, Cholecystectomy, Tonsillectomy Additional Past Surgical History / Comment(s): X3 C-SECTIONS, Edna-en-y in Jan 2015 j tube-feeding tube gastric pacer Past Anesthesia/Blood Transfusion Reactions: No Reported Reaction Past Psychological History: Depression Smoking Status: Never smoker Past Alcohol Use History: Rare Past Drug Use History: None Reported - Past Family History Father Family Medical History: Hypertension Additional Family Medical History / Comment(s): DAD IS 52 AND IN [facility] Mother Additional Family Medical History / Comment(s): MOM IS 52 AND IN [facility] General Exam Limitations: no limitations General appearance: alert, in no apparent distress Head exam: Present: atraumatic, normocephalic, normal inspection Eye exam: Present: normal appearance, PERRL, EOMI. Absent: scleral icterus, conjunctival injection, periorbital swelling ENT exam: Present: normal exam, mucous membranes moist Neck exam: Present: normal inspection. Absent: tenderness, meningismus, lymphadenopathy Respiratory exam: Present: normal lung sounds bilaterally. Absent: respiratory distress, wheezes, rales, rhonchi, stridor Cardiovascular Exam: Present: regular rate, normal rhythm, normal heart sounds. Absent: systolic murmur, diastolic murmur, rubs, gallop, clicks GI/Abdominal exam: Present: soft, normal bowel sounds. Absent: distended, tenderness, guarding, rebound, rigid Extremities exam: Present: normal inspection, full ROM, normal capillary refill. Absent: tenderness, pedal edema, joint swelling, calf tenderness Back exam: Present: normal inspection Neurological exam: Present: alert, oriented X3, CN II-XII intact Psychiatric exam: Present: normal affect, normal mood Skin exam: Present: warm, dry, intact, normal color. Absent: rash Course Vital Signs 02/16/17 02/16/17 13:01 13:41 Temperature 98.5 F Pulse Rate 99 84 Respiratory 22 18 Rate Blood Pressure 124/81 160/90 O2 Sat by Pulse 98 98 Oximetry Chest Pain MDM - MDM Patient complains of chest pain. Her exam is unremarkable. Her vital signs are normal. Her EKG is normal. She is stable for discharge and outpatient follow-up. Disposition Clinical Impression: Chest pain Disposition: HOME SELF-CARE Condition: Good Instructions: Chest Pain (ED) Referrals: Karthikeyan Pedro MD [Primary Care Provider] - 1-2 days Time of Disposition: 14:12
[2017-02-16 14:18] VITALS: BP 118/72
[2017-02-16 14:46] VITALS: TEMP 97.3
== END 2017-02-16 14:46 | disposition home or self-care (01) ==
LOC: EC 12:59
DX: R07.9 Chest pain, unspecified (principal); E03.9 Hypothyroidism, unspecified; F32.9 Major depressive disorder, single episode, unspecified; Z79.899 Other long term (current) drug therapy
CPT/HCPCS: 99285; 96374; 96375; 96372; 36415; 93005; 80053; 83690; 83735; 84484; 85025; 71020; J2060; J1200; J1170

== ENCOUNTER 2017-03-20 12:04 | Emergency (ER) | payer BC ==
[2017-03-20 12:30] VITALS: BP 135/80; PULSE 85; RESP 18; TEMP 99
[2017-03-20] MEDS ORDERED: ALTEPLASE 2 MG VIAL (CATHFLO) IV STA (12:48)
--- NOTE | 2017-03-20 13:00 | ED ---
Recheck HPI - General Chief Complaint: Recheck/Abnormal Lab/Rx Stated Complaint: Pic Line issues Time Seen by Provider: 03/20/17 12:33 Source: patient, RN notes reviewed Mode of arrival: ambulatory Limitations: no limitations - History of Present Illness Initial Comments: This is a 36-year-old female who presents to the emergency department with request to have PICC line flushed with Cathflo. Patient states that she has been getting infusions of TPN through her PICC line for the past 3 weeks. Patient states that for the previous 2 weeks her home health nurse has been unable to draw blood off of the PICC line. He requested that she present to the emergency department and have it flushed with Cathflo to see if there is a clot blocking it. Patient states that while in the hospital at [facility] they had difficulty drawing blood off of her PICC line and that after flushing it with Cathflo was able to draw blood from it again. Patient denies . Denies any other problems. Denies fever, chills, chest pain, shortness of breath , abdominal pain, constipation or diarrhea, dysuria or hematuria, numbness or tingling, headache or vision changes. - Related Data Home Medications Medication Instructions Recorded Confirmed Loratadine [Claritin] 10 mg PO DAILY PRN 05/11/14 02/16/17 Linaclotide [Linzess] 290 mcg PO DAILY 01/05/15 02/16/17 oxyCODONE-APAP 10-325MG [Percocet 1 tab PO Q6HR PRN MDD 4 tablets 08/28/1502/16 10-325 mg] Thyroid,Pork [Nature-Throid] 81.25 mg PO DAILY 10/27/15 02/16/17 Lansoprazole [Prevacid] 30 mg PO AC-BID 08/30/16 02/16/17 Propulsid 20mg 20 mg PO QID 02/09/17 02/16/17 Previous Rx's Medication Instructions Recorded LORazepam [Ativan] 0.5 mg PO TID PRN #30 tab 09/03/16 Allergies Allergy/AdvReac Type Severity Reaction Status Date / Time No Known Allergies Allergy Verified 03/20/17 12:30 Review of Systems ROS Statement: Those systems with pertinent positive or pertinent negative responses have been documented in the HPI. ROS Other: All systems not noted in ROS Statement are negative. Past Medical History Past Medical History: Thyroid Disorder Additional Past Medical History / Comment(s): PANCREATITIS, HYPOTHYROID, gastroparesis, depression, pt recieved TPN through Picc line History of Any Multi-Drug Resistant Organisms: None Reported Past Surgical History: Section, Cholecystectomy, Tonsillectomy Additional Past Surgical History / Comment(s): X3 C-SECTIONS, Edna-en-y in Jan 2015 j tube-feeding tube ,gastric pacer Past Anesthesia/Blood Transfusion Reactions: No Reported Reaction Past Psychological History: Depression Smoking Status: Never smoker Past Alcohol Use History: Rare Past Drug Use History: None Reported - Past Family History Father Family Medical History: Hypertension Additional Family Medical History / Comment(s): DAD IS 52 AND IN [facility] Mother Additional Family Medical History / Comment(s): MOM IS 52 AND IN [place] [facility] General Exam - General Exam Comments Initial Comments: General: Awake and alert, well-developed; in no apparent distress. HEENT: Head atraumatic, normocephalic. Pupils are equal, round and reactive to light. Extraocular movements intact. Neck: Supple. Normal ROM. Cardiovascular: Regular rate and rhythm. No murmurs, rubs or gallops. Chest symmetrical. Respiratory: Lungs clear to auscultation bilaterally. No wheezes, rales or rhonchi. Normal respiratory effort with no use of accessory muscles. Musculoskeletal: Normal ROM, no tenderness bilateral upper and lower extremities. PICC line noted in upper left arm. No signs of infection, swelling or erythema. Including normally. Skin: [place], warm and dry without rashes or lesions. Neurological: Alert and oriented x3. CN II-XII grossly intact. Speech is fluent and answers are appropriate. No focal neuro deficits. Psychiatric: Normal mood and affect. No overt signs of depression or anxiety noted. Limitations: no limitations Course Vital Signs 03/20/17 12:26 Temperature 99 F Pulse Rate 85 Respiratory 18 Rate Blood Pressure 135/80 O2 Sat by Pulse 100 Oximetry Medical Decision Making - Medical Decision Making This is a 36-year-old female who presents to the emergency department for evaluation of PICC line problems. Patient states her home health nurse has been unable to draw blood from her PICC line. He requested that she present to the emergency department to have it flushed with Cathflo. PICC line was flushed with Cathflo and then dressed with a saline flush 20 minutes later. 2 attempts were made to draw blood from the PICC line and the second attempt was successful. Patient will be discharged home at this time. Recommended to follow up with her doctor from [facility]. She is in agreement and voices understanding. All questions were answered. Disposition Clinical Impression: PIC line (peripherally inserted central catheter) flush Disposition: HOME SELF-CARE Condition: Good Instructions: Peripherally Inserted Central Catheters and Midline Catheters (ED ) Additional Instructions: Please follow up with primary care provider within 1-2 days. Return to emergency department if symptoms should worsen or any concerns arise. Referrals: Karthikeyan Pedro MD [Primary Care Provider] - 1-2 days Time of Disposition: 14:44
== END 2017-03-20 14:42 | disposition home or self-care (01) ==
LOC: EC 12:04
DX: Z45.2 Encounter for adjustment and management of vascular access device (principal); E03.9 Hypothyroidism, unspecified; Z79.899 Other long term (current) drug therapy
CPT/HCPCS: 99283; 96374; J2997

== ENCOUNTER 2017-04-30 21:16 | Observation (INO) | payer BC ==
[2017-04-30] MEDS ORDERED: SODIUM CHLORIDE 0.9% 1,000 ML IV STA ×2 (21:57)
[2017-04-30] MEDS ORDERED: KETOROLAC 30 MG/ML 1 ML VIAL IVP STA (21:57)
[2017-04-30] MEDS ORDERED: HYDROmorphone 0.5 MG/0.5 ML SYRINGE IVP STA (21:57)
[2017-04-30] MEDS ORDERED: ACETAMINOPHEN IV (For NPO) 1,000 MG in EMPTY BAG 1 BAG IVPB ONE (21:58)
--- NOTE | 2017-04-30 22:01 | ED ---
General Adult HPI - General Chief complaint: Headache Stated complaint: Migraine Time Seen by Provider: 04/30/17 21:48 Source: patient, RN notes reviewed, old records reviewed Mode of arrival: ambulatory Limitations: no limitations - History of Present Illness Initial comments: 37-year-old female with history of idiopathic gastroparesis resents for evaluation of one week of sharp stabbing right-sided headache. Patient complains of retro-orbital and temporal headache. She's had this day and night for the past 7 days. Patient is also been running low-grade fever at home. No temperature above 101. She has left upper shoulder he PICC line which she is currently receiving TPN. She has J-tube which she is currently not using in an attempt to give her bowel rest. She has had vomiting throughout which is worse than her baseline nausea vomiting. Denies URI symptoms. Denies dysuria. Denies abdominal pain. She is also had bilateral lower leg stiffness and soreness. - Related Data Home Medications Medication Instructions Recorded Confirmed Loratadine [Claritin] 10 mg PO DAILY PRN 05/11/14 02/16/17 Linaclotide [Linzess] 290 mcg PO DAILY 01/05/15 02/16/17 oxyCODONE-APAP 10-325MG [Percocet 1 tab PO Q6HR PRN MDD 4 tablets 08/28/1502/16 10-325 mg] Thyroid,Pork [Nature-Throid] 81.25 mg PO DAILY 10/27/15 02/16/17 Lansoprazole [Prevacid] 30 mg PO AC-BID 08/30/16 02/16/17 Propulsid 20mg 20 mg PO QID 02/09/17 02/16/17 Previous Rx's Medication Instructions Recorded LORazepam [Ativan] 0.5 mg PO TID PRN #30 tab 09/03/16 Allergies Allergy/AdvReac Type Severity Reaction Status Date / Time No Known Allergies Allergy Verified 04/30/17 21:27 Review of Systems ROS Statement: Those systems with pertinent positive or pertinent negative responses have been documented in the HPI. ROS Other: All systems not noted in ROS Statement are negative. Past Medical History Past Medical History: Thyroid Disorder Additional Past Medical History / Comment(s): PANCREATITIS, HYPOTHYROID, gastroparesis, depression, pt recieved TPN through [facility] History of Any Multi-Drug Resistant Organisms: None Reported Past Surgical History: Section, Cholecystectomy, Tonsillectomy Additional Past Surgical History / Comment(s): X3 C-SECTIONS, Edna-en-y in Jan 2015 j tube-feeding tube ,gastric pacer Past Anesthesia/Blood Transfusion Reactions: No Reported Reaction Past Psychological History: Depression Smoking Status: Never smoker Past Alcohol Use History: Rare Past Drug Use History: None Reported - Past Family History Father Family Medical History: Hypertension Additional Family Medical History / Comment(s): DAD IS 52 AND IN [facility] Mother Additional Family Medical History / Comment(s): MOM IS 52 AND IN [facility] General Exam Limitations: no limitations General appearance: alert, in distress Head exam: Present: atraumatic, normocephalic Eye exam: Present: normal appearance, PERRL, EOMI ENT exam: Present: mucous membranes dry Neck exam: Present: normal inspection. Absent: tenderness, meningismus Respiratory exam: Present: normal lung sounds bilaterally. Absent: respiratory distress Cardiovascular Exam: Present: regular rate, normal rhythm GI/Abdominal exam: Present: soft. Absent: distended, tenderness Extremities exam: Present: normal inspection, normal capillary refill. Absent: pedal edema Neurological exam: Present: alert, oriented X3, CN II-XII intact. Absent: motor sensory deficit Skin exam: Present: warm, intact, diaphoretic. Absent: cyanosis Course Vital Signs 04/30/17 04/30/17 21:26 23:46 Temperature 99.8 F H 98.1 F Pulse Rate 99 96 Respiratory 18 18 Rate Blood Pressure 137/76 139/75 O2 Sat by Pulse 99 100 Oximetry EKG Findings - EKG Comments: EKG Findings:: EKG shows normal sinus rhythm, ventricular rate 84, para 142, castration 84, QTC 477, no signs of arrhythmia or ischemia, no QT prolongation Medical Decision Making - Medical Decision Making 37-year-old female presenting with 1 week history of headache. Patient does not have baseline headaches. Neurologic examination is nonfocal. She is in significant distress secondary to headache. She does describe it as a stabbing a retro-orbital headache. Description is consistent with cluster headache although the consistency induration is inconsistent. Patient feels to improve with medical management in the emergency department. She is prevented from using any medication secondary to a clinical trial she is currently enrolled in for her gastroparesis. Laboratory studies are obtained, CBC, CMP, urinalysis are negative. Head CT is obtained, negative for any acute intracranial findings. Patient cannot receive an MRI because she has a gastric stimulator. She will be admitted for medical management of her headache and neurology consult. - Lab Data Result diagrams: 04/30/17 22:33 04/30/17 22:33 Lab Results 04/30/17 04/30/17 04/30/17 Range/Units 22:33 22:33 22:33 WBC 9.7 (3.8-10.6) k/uL RBC 4.67 (3.80-5.40) m/uL Hgb 10.5 L (11.4-16.0) gm/dL Hct 33.9 L (34.0-46.0) % MCV 72.5 L (80.0-100.0) fL MCH 22.5 L (25.0-35.0) pg MCHC 31.0 (31.0-37.0) g/dL RDW 15.4 (11.5-15.5) % Plt Count 476 H (150-450) k/uL Neutrophils % 60 % Lymphocytes % 29 % Monocytes % 5 % Eosinophils % 3 % Basophils % 1 % Neutrophils # 5.9 (1.3-7.7) k/uL Lymphocytes # 2.8 (1.0-4.8) k/uL Monocytes # 0.5 (0-1.0) k/uL Eosinophils # 0.2 (0-0.7) k/uL Basophils # 0.1 (0-0.2) k/uL Hypochromasia Marked Microcytosis Slight Sodium 143 (137-145) mmol/L Potassium 4.3 (3.5-5.1) mmol/L Chloride 107 (98-107) mmol/L Carbon Dioxide 25 (22-30) mmol/L Anion Gap 11 mmol/L BUN 13 (7-17) mg/dL Creatinine 0.90 (0.52-1.04) mg/dL Est GFR (MDRD) Af Amer >60 (>60 ml/min/1.73 sqM) Est GFR (MDRD) Non-Af >60 (>60 ml/min/1.73 sqM) Glucose 85 (74-99) mg/dL Plasma Lactic Acid Frank 1.1 (0.7-2.0) mmol/L Calcium 9.3 (8.4-10.2) mg/dL Magnesium 2.0 (1.6-2.3) mg/dL Total Bilirubin <0.1 L (0.2-1.3) mg/dL AST 27 (14-36) U/L ALT 52 (9-52) U/L Alkaline Phosphatase 122 (38-126) U/L Total Protein 6.6 (6.3-8.2) g/dL Albumin 3.7 (3.5-5.0) g/dL Urine Color Urine Appearance (Clear) Urine pH (5.0-8.0) Ur Specific [place] (1.001-1.035) Urine Protein (Negative) Urine Glucose (UA) (Negative) Urine Ketones (Negative) Urine Blood (Negative) Urine Nitrite (Negative) Urine Bilirubin (Negative) Urine Urobilinogen (<2.0) mg/dL Ur Leukocyte Esterase (Negative) Urine HCG, Qual (Not Detectd) Influenza Type A RNA (Not Detectd) Influenza Type B (PCR) (Not Detectd) 04/30/17 04/30/17 04/30/17 Range/Units 22:35 22:49 22:49 WBC (3.8-10.6) k/uL RBC (3.80-5.40) m/uL Hgb (11.4-16.0) gm/dL Hct (34.0-46.0) % MCV (80.0-100.0) fL MCH (25.0-35.0) pg MCHC (31.0-37.0) g/dL RDW (11.5-15.5) % Plt Count (150-450) k/uL Neutrophils % % Lymphocytes % % Monocytes % % Eosinophils % % Basophils % % Neutrophils # (1.3-7.7) k/uL Lymphocytes # (1.0-4.8) k/uL Monocytes # (0-1.0) k/uL Eosinophils # (0-0.7) k/uL Basophils # (0-0.2) k/uL Hypochromasia Microcytosis Sodium (137-145) mmol/L Potassium (3.5-5.1) mmol/L Chloride (98-107) mmol/L Carbon Dioxide (22-30) mmol/L Anion Gap mmol/L BUN (7-17) mg/dL Creatinine (0.52-1.04) mg/dL Est GFR (MDRD) Af Amer (>60 ml/min/1.73 sqM) Est GFR (MDRD) Non-Af (>60 ml/min/1.73 sqM) Glucose (74-99) mg/dL Plasma Lactic Acid Frank (0.7-2.0) mmol/L Calcium (8.4-10.2) mg/dL Magnesium (1.6-2.3) mg/dL Total Bilirubin (0.2-1.3) mg/dL AST (14-36) U/L ALT (9-52) U/L Alkaline Phosphatase (38-126) U/L Total Protein (6.3-8.2) g/dL Albumin (3.5-5.0) g/dL Urine Color Light Yellow Urine Appearance Clear (Clear) Urine pH 7.5 (5.0-8.0) Ur Specific [place] 1.007 (1.001-1.035) Urine Protein Negative (Negative) Urine Glucose (UA) Negative (Negative) Urine Ketones Negative (Negative) Urine Blood Negative (Negative) Urine Nitrite Negative (Negative) Urine Bilirubin Negative (Negative) Urine Urobilinogen <2.0 (<2.0) mg/dL Ur Leukocyte Esterase Negative (Negative) Urine HCG, Qual Not Detected (Not Detectd) Influenza Type A RNA Not Detected (Not Detectd) Influenza Type B (PCR) Not Detected (Not Detectd) Disposition Clinical Impression: Headache Disposition: ADMITTED IP TO THIS [facility] Condition: Stable Referrals: Karthikeyan Pedro MD [Primary Care Provider] - 1-2 days Decision to Admit Reason: Admit from EC Decision Date: 05/01/17 Decision Time: 01:10
[2017-04-30 22:47] LABS: Basophils # (A) 0.1 k/uL (0-0.2); Basophils % (A) 1 %; Eosinophils # (A) 0.2 k/uL (0-0.7); Eosinophils % (A) 3 %; HCT 33.9 % (34.0-46.0); HGB 10.5 gm/dL (11.4-16.0); Hypochromasia Marked; Lymphocytes # (A) 2.8 k/uL (1.0-4.8); Lymphocytes % (A) 29 %; MCH 22.5 pg (25.0-35.0); MCV 72.5 fL (80.0-100.0); Mean Platelet Volume 7.1; Microcytosis Slight; Monocytes # (A) 0.5 k/uL (0-1.0); Monocytes % (A) 5 %; Neutrophils # (A) 5.9 k/uL (1.3-7.7); Neutrophils % (A) 60 %; Platelet Count 476 k/uL (150-450); RBC 4.67 m/uL (3.80-5.40); RDW 15.4 % (11.5-15.5); WBC 9.7 k/uL (3.8-10.6)
[2017-04-30] MEDS ORDERED: METOCLOPRAMIDE 5 MG/ML 2 ML VIAL IVP STA (22:55)
[2017-04-30 23:02] LABS: ALT 52 U/L (9-52); AST 27 U/L (14-36); Albumin 3.7 g/dL (3.5-5.0); Alkaline Phosphatase 122 U/L (38-126); Anion Gap 11 mmol/L; Blood Urea Nitrogen 13 mg/dL (7-17); Calcium 9.3 mg/dL (8.4-10.2); Carbon Dioxide 25 mmol/L (22-30); Chloride 107 mmol/L (98-107); Glucose 85 mg/dL (74-99); Potassium 4.3 mmol/L (3.5-5.1); Sodium 143 mmol/L (137-145); Total Bilirubin <0.1 mg/dL (0.2-1.3); Total Protein 6.6 g/dL (6.3-8.2)
[2017-04-30 23:08] LABS: Appearance,Urine Clear (Clear); Bilirubin,Urine Negative (Negative); Blood,Urine Negative (Negative); Color,Urine Light Yellow; Glucose,Urine (UA) Negative (Negative); Ketones,Urine Negative (Negative); Leukocyte Esterase,Urine Negative (Negative); Nitrite,Urine Negative (Negative); PH, Urine 7.5 (5.0-8.0); Protein,Urine Negative (Negative); Specific Gravity,Urine 1.007 (1.001-1.035); Urobilinogen,Urine <2.0 mg/dL (<2.0)
[2017-04-30] MEDS ORDERED: diphenhydrAMINE 50 MG/ML 1 ML VIAL IVP STA (23:38)
[2017-04-30] MEDS ORDERED: LORazepam 2 MG/ML INJ IV STA (23:38)
--- NOTE | 2017-05-01 00:14 | CT ---
EXAM: CT Head Without Intravenous Contrast CLINICAL HISTORY: Reason: Headache TECHNIQUE: Axial computed tomography images of the head/brain without intravenous contrast. CTDI is 60 mGy and DLP is 982 mGy-cm. This CT exam was performed using one or more of the following dose reduction techniques: automated exposure control, adjustment of the mA and/or kV according to patient size, and/or use of iterative reconstruction technique. COMPARISON: No relevant prior studies available. FINDINGS: Brain: No hemorrhage, large hypodensity, or mass effect. Ventricles: No hydrocephalus. Bones/joints: Unremarkable. Soft tissues: Unremarkable. Sinuses: Unremarkable. Mastoid air cells: Clear. IMPRESSION: No acute hemorrhage, hydrocephalus, or mass effect.
[2017-05-01] MEDS ORDERED: HYDROmorphone 0.5 MG/0.5 ML SYRINGE IVP STA (01:04)
[2017-05-01] MEDS ORDERED: NALOXONE 0.4 MG/ML 1 ML VIAL IV PRN (01:06)
[2017-05-01] MEDS ORDERED: IBUPROFEN 400 MG TAB PO PRN (01:06)
[2017-05-01] MEDS ORDERED: ACETAMINOPHEN TAB 325 MG TAB PO PRN (01:06)
[2017-05-01 02:58] VITALS: BMI 34.7
[2017-05-01 03:54] LABS: Glucose,Whole Blood 81 mg/dL (75-99)
[2017-05-01] MEDS: SODIUM CHLORIDE 0.9% 1,000 ML IV SCH ×2 (04:14→16:02)
[2017-05-01] MEDS: HYDROmorphone 0.5 MG/0.5 ML SYRINGE IVP PRN ×3 (04:28→12:23)
[2017-05-01] MEDS ORDERED: diphenhydrAMINE 25 MG CAP PO PRN (05:25)
[2017-05-01] MEDS ORDERED: oxyCODONE-APAP 10-325MG 1 EACH TAB PO PRN (05:28)
[2017-05-01] MEDS ORDERED: SCOPOLAMINE 1.5MG/72HR PATCH TRANSDERM SCH (05:30)
--- NOTE | 2017-05-01 05:48 | P.HPIM ---
History of Present Illness H&P Date: 05/01/17 Chief Complaint: right side headache 37 year old female with history of idiopathic gastroparesis currently on clinical trial with [facility] which restricts the type of medications she could receive. Headache started 1 week ago, as retroorbital sharp in nature, throbbing, 10/10 in severity nothing is helping, she reports that it started to get worse over the past 2 days for which she decided to come to the hospital. this has been associated with photophobia but denies any lacrimation . She reports that her baseline nausea and vomiting is worse now with this headache, and she noticed possible low grade fever. This has never happened to her before. she denies any ophthalmoplagia. She denies any focal neurological deficits, he denies any changes in her urination, bowel habits, bleeding, chest pain, or SOB. She has been on the clinical trial for 1 year now, and doubts medication side effects. In the ED high flow oxygen attempted with no benefit, CT of the head unremarkable , MRI could not be done due to gastric stimulator. Patient was admitted under observation to be evaluated by neurology due to disabling headaches. Review of Systems Pertinent positives as noted in HPI. All other systems were reviewed and are negative Past Medical History Past Medical History: Thyroid Disorder Additional Past Medical History / Comment(s): PANCREATITIS, HYPOTHYROID, gastroparesis, depression, pt recieves TPN through [facility] History of Any Multi-Drug Resistant Organisms: None Reported Past Surgical History: Section, Cholecystectomy, Tonsillectomy Additional Past Surgical History / Comment(s): X3 C-SECTIONS, Edna-en-y in Jan 2015 j tube-feeding tube ,gastric pacer Past Anesthesia/Blood Transfusion Reactions: No Reported Reaction Past Psychological History: Depression Smoking Status: Never smoker Past Alcohol Use History: Rare Past Drug Use History: None Reported - Past Family History Father Family Medical History: Hypertension Additional Family Medical History / Comment(s): DAD IS 55 AND IN [facility] Mother Additional Family Medical History / Comment(s): MOM IS 55 AND IN [facility] Medications and Allergies Home Medications Medication Instructions Recorded Confirmed Type Loratadine [Claritin] 10 mg PO DAILY PRN 05/11/14 05/01/17 History Linaclotide [Linzess] 290 mcg PO DAILY 01/05/15 05/01/17 History oxyCODONE-APAP 10-325MG [Percocet 1 tab PO Q6HR PRN MDD 4 tablets 08/28/1505/01 History 10-325 mg] Lansoprazole [Prevacid] 30 mg PO AC-BID 08/30/16 05/01/17 History Propulsid 20mg 20 mg PO QID 02/09/17 05/01/17 History LORazepam [Ativan] 0.5 mg PO TID PRN 05/01/17 05/01/17 History Scopolamine 1.5MG/72Hr Patch 1 patch TRANSDERM Q72H 05/01/17 05/01/17 History [Transderm-Scop 1.5MG/72Hr Patch] Thyroid,Pork [Service Mechanic Thyroid 120] 90 mg PO DAILY 05/01/17 05/01/17 History Allergies Allergy/AdvReac Type Severity Reaction Status Date / Time No Known Allergies Allergy Verified 04/30/17 21:27 Physical Exam Vitals: Vital Signs Temp Pulse Pulse Resp BP BP Pulse Ox 05/01/17 02:35 98.6 F 92 18 129/71 99 05/01/17 02:30 98.6 F 92 18 129/71 99 04/30/17 23:46 98.1 F 96 18 139/75 100 04/30/17 21:26 99.8 F H 99 18 137/76 99 Intake and Output 04/30/17 04/30/17 05/01/17 14:59 22:59 06:59 Intake Total 1200 Balance 1200 Intake: Amount of Fluid Infused ( 1200 ml) Other: Weight 81.647 kg 88.9 kg Patient Weight 05/01/17 06:59 Weight 88.9 kg Constitutional: No acute distress, conversant, pleasant, patient was sleeping and I had to wake her up for the interview Eyes: Anicteric sclerae, moist conjunctiva, no lid-lag Pupils equal round reactive to light, no ophthalmoplegia, mild photophobia ENMT: NC/AT Oropharynx clear, no erythema, exudates Neck: Supple, FROM, no masses, or JVD, no neck stiffness No carotid bruits No thyromegaly Lungs: Clear to auscultation Clear to percussion Normal respiratory effort, no accessory muscle use Cardiovascular: Heart regular in rate and rhythm, No murmurs, gallops, or rubs No peripheral edema Abdominal: Soft, multiple scars, J tube left upper quadrant , clean insertion site. Nontender, no guarding, rebound or rigidity Abdomen moving with respiration Normoactive bowel sounds No hepatomegaly, No splenomegaly No palpable mass No abdominal wall hernia noted Skin: Normal temperature, tone, texture, turgor No induration No subcutaneous nodules No rash, lesions No ulcers Extremities: Left arm PICC line, unremarkable No digital cyanosis No clubbing Pedal pulses intact and symmetrical Radial pulses intact and symmetrical No calf tenderness Psychiatric: Alert and oriented to person, place and time Appropriate affect fair judgment Neuro Muscles Strength 4/5 in all 4 extremities Sensation to light touch grossly present throughout Cranial nerves II-XII grossly intact No focal sensory deficits Lymphatics: no palpable cervical or supraclavicular , or inguinal lymph nodes Results CBC & Chem 7: 04/30/17 22:33 04/30/17 22:33 Labs: Abnormal Lab Results - Last 24 Hours (Table) 04/30/17 04/30/17 Range/Units 22:33 22:33 Hgb 10.5 L (11.4-16.0) gm/dL Hct 33.9 L (34.0-46.0) % MCV 72.5 L (80.0-100.0) fL MCH 22.5 L (25.0-35.0) pg Plt Count 476 H (150-450) k/uL Total Bilirubin <0.1 L (0.2-1.3) mg/dL Assessment and Plan Assessment: 37 year old female with history of idiopathic gastroparesis and hypothyroidism, presented due to severe right retroorbital debilitating headaches. (1) Headache Narrative/Plan: await neurology input CT head unremarkable trial of high flow oxygen 100% @ 15 LPM through non rebreather mask limited choice of abortive medications due to her being enrolled in gastroparesis clinical trial (triptans and octereotide could not be used), Lidocain intranasal is not on formulary if headaches persists, and patient spikes a fever, or starts showing signs of systemic infection, then possibly would consider LP. Current Visit: Yes Status: Acute Code(s): R51 - HEADACHE SNOMED Code(s): 43877444 (2) Gastroparesis Narrative/Plan: enrolled in Clinical trial gastric stimulator in place Current Visit: No Status: Chronic Code(s): K31.84 - GASTROPARESIS SNOMED Code(s): 445181027 (3) Jejunostomy tube present Narrative/Plan: continue flushes as needed bowel rest for now Current Visit: No Status: Chronic Code(s): Z93.4 - OTHER ARTIFICIAL OPENINGS OF GASTROINTESTINAL TRACT STATUS SNOMED Code(s): 500165931 (4) Microcytic anemia Narrative/Plan: patient denies GI bleeding check Iron studies consider IV iron infusion if indicated pending labs. Current Visit: Yes Status: Acute Code(s): D50.9 - IRON DEFICIENCY ANEMIA, UNSPECIFIED SNOMED Code(s): 106303009 (5) Hypothyroid Narrative/Plan: continue home medication Current Visit: No Status: Chronic Code(s): E03.9 - HYPOTHYROIDISM, UNSPECIFIED SNOMED Code(s): 09320310 (6) DVT prophylaxis Narrative/Plan: heparin sc tid Current Visit: Yes Status: Acute Code(s): [id number] - SNOMED Code(s): 298526428 Plan: Surrogate decision-maker: Aureliano (patient ) CODE STATUS:full code DVT prophylaxis: heparin sc Discussed with: Patient, ER, RN Anticipated discharge: <[address]: home A total of 45 minutes were spent on the care of this complex patient more than 50% of the time was spent in counseling and care coordination.
[2017-05-01] MEDS: PANTOPRAZOLE 40 MG TABLET PO SCH ×2 (06:11→18:13)
[2017-05-01] MEDS: HEPARIN SODIUM,PORCINE 5,000 UNIT/ML 1 ML VIAL SQ SCH ×2 (08:18→15:59)
[2017-05-01] MEDS ORDERED: THYROID, PORK 30 MG TAB PO SCH (09:00)
[2017-05-01] MEDS: KETOROLAC 30 MG/ML 1 ML VIAL IVP PRN ×2 (09:39→20:07)
[2017-05-01] MEDS: [UNRECOGNIZED DRUG - OTHER] PO SCH ×4 (10:53→23:05)
[2017-05-01 11:37] LABS: Glucose,Whole Blood 98 mg/dL (75-99)
[2017-05-01 12:34] LABS: Iron Saturation 3.7 (12.00-45.00)
[2017-05-01] MEDS ORDERED: methylPREDNISolone SOD SUCCI 125 MG/2 ML VIAL IM ONE (13:13)
[2017-05-01] MEDS ORDERED: methylPREDNISolone SOD SUCCI 250 MG in SODIUM CHLORIDE 0.9% 100 ML IVPB ONE (14:00)
[2017-05-01] MEDS: BUTALB/APAP/CAFF 50-325-40MG TAB PO PRN ×2 (14:03→18:14)
[2017-05-01 14:34] LABS: Ionized Calcium 5.2 mg/dL (4.5-5.3)
[2017-05-01 14:41] LABS: Albumin 3.3 g/dL (3.5-5.0)
[2017-05-01 14:47] VITALS: RESP 16
[2017-05-01] MEDS ORDERED: MAGNESIUM SULFATE-D5W PMX 1 GM in DEXTROSE/WATER 1 100ML.BAG IVPB ONE (15:00)
[2017-05-01] MEDS: diphenhydrAMINE 50 MG/ML 1 ML VIAL IVP PRN ×2 (15:34→20:31)
[2017-05-01] MEDS: LORazepam 2 MG/ML INJ IV PRN ×2 (15:35→20:31)
[2017-05-01] MEDS ORDERED: RX INFO: IV CONTRAST WAS GIVEN 1 EACH MISC MISCELLANE PRN (17:14)
--- NOTE | 2017-05-01 19:52 | CT ---
EXAMINATION TYPE: CT angio head neck DATE OF EXAM: 05/01/2017 HISTORY: Patient complains of intractable headache COMPARISON: NONE CT DLP: 315.1 mGycm. Automated Exposure Control for Dose Reduction was Utilized. TECHNIQUE: CTA scan of the neck is performed with IV Contrast, patient injected with 60 mL of Omnipa que 350, axial images are obtained, coronal and sagittal reformatted images are reviewed. Three-D rec onstructed images are created on an independent workstation and reviewed. FINDINGS: Carotid/Vascular Structures: There is no evidence of focal stenosis, aneurysmal outpouching, or disse ction of the common carotid arteries, internal carotid arteries, or external carotid arteries and the ir visualized portions. There is a normal anatomic branch pattern of the great vessels. The right vertebral artery is dominant. Vertebral arteries are patent. A left posterior communicating artery is not visualized and could be diminutive or congenitally absent. Remainder the [place] is intact. Regarding the intracranial structures no aneurysmal outpouching, focal stenosis, or oc clusion is seen. Other: There is a calcification along the vertex of the left hemisphere in the extra-axial space on s eries 11 image 64 measuring 5.5 and millimeters. This could represent a small meningioma or benign os seous protuberance. IMPRESSION: 1. No evidence of focal stenosis, dissection, or aneurysmal outpouching of the vasculature of the hea d or neck. 2. Left posterior communicating artery is not visualized and may be diminutive or congenitally absent . 3. Calcification in the left hemisphere near the skull vertex may represent a benign osseous protuber ance or an angioma. MRI could be performed for further evaluation if clinically indicated.
[2017-05-01 20:45] LABS: Glucose,Whole Blood 110 mg/dL (75-99)
[2017-05-01] MEDS ORDERED: [UNRECOGNIZED DRUG - OTHER] IV ONE (21:00)
[2017-05-01] MEDS ORDERED: INSULIN ASPART 100 UNIT/ML 1 ML 10 ML VIAL SQ SCH (21:00)
[2017-05-01] MEDS ORDERED: diphenhydrAMINE 50 MG/ML 1 ML VIAL IVP SCH (21:00)
[2017-05-01 22:59] VITALS: BP 128/69; PULSE 101; TEMP 98.7
[2017-05-02] MEDS: KETOROLAC 30 MG/ML 1 ML VIAL IVP PRN (00:21)
[2017-05-02] MEDS: HEPARIN SODIUM,PORCINE 5,000 UNIT/ML 1 ML VIAL SQ SCH (00:22)
[2017-05-02] MEDS: LORazepam 2 MG/ML INJ IV PRN (01:10)
[2017-05-02] MEDS: BUTALB/APAP/CAFF 50-325-40MG TAB PO PRN (01:11)
--- NOTE | 2017-05-03 10:51 | P.DS ---
Providers Date of admission: 05/01/17 01:06 Expected date of discharge: 05/01/17 Attending physician: Mario Cruz MD Consults: 05/01/17 01:06 Consult Physician Urgent Consulting Provider: John Reza Consult Reason/Comments: Headache Do you want consulting provider notified?: Yes, Notify in am Primary care physician: Karthikeyan Pedro - Discharge Diagnosis(es) (1) Headache Status: Acute (2) Microcytic anemia Status: Acute (3) Gastroparesis Status: Chronic (4) Hypothyroid Status: Chronic (5) Jejunostomy tube present Status: Chronic Hospital Course: This is a summary of care as patient left AGAINST MEDICAL ADVICE. Patient was never seen or examined by myself. I did not participate directly in her care and this is simply a summary of what occurred during hospitalization. The patient is a 37-year-old female with a history of idiopathic gastroparesis, hypothyroidism, and pancreatitis who initially presented here on 04/30/2017 with complaints of a headache. She underwent a CT of the brain which showed no acute process. She had inadequate pain control due to not being able to take medications from being on a clinical trial for gastroparesis and was therefore admitted. Neurology consultation was requested. She underwent a CTA of the head and neck she was found have a calcification in the left hemisphere near the skull vertex which may represent benign osseous protuberance or and angioma. She was unable to have an MRI secondary to gastric pacemaker. On the night of 05/01 she had increasing pain and was asking for Dilaudid. The provider contacted felt that this was inappropriate. She therefore left AGAINST MEDICAL ADVICE. A total of 20 minutes of time were spent preparing this complex discharge summary . Pertinent Studies: CT head-no acute process CTA of the head and neck-calcification in the left hemisphere near the skull vertex which may represent benign osseous protuberance or and angioma. Patient Condition at Discharge: Stable Plan - Discharge Summary New Discharge Prescriptions: No Action Loratadine [Claritin] 10 mg PO DAILY Linaclotide [Linzess] 290 mcg PO DAILY oxyCODONE-APAP 10-325MG [Percocet 10-325 mg] 1 tab PO Q6HR PRN PRN Reason: Pain Lansoprazole [Prevacid] 30 mg PO AC-BID Propulsid 20mg 20 mg PO QID Scopolamine 1.5MG/72Hr Patch [Transderm-Scop 1.5MG/72Hr Patch] 1 patch TRANSDERM Q72H LORazepam [Ativan] 0.5 mg PO TID PRN PRN Reason: Nausea Claims Collector Thyroid 90mcg 90 mcg PO DAILY Discharge Medication List Loratadine [Claritin] 10 mg PO DAILY 05/11/14 [History] Linaclotide [Linzess] 290 mcg PO DAILY 01/05/15 [History] oxyCODONE-APAP 10-325MG [Percocet 10-325 mg] 1 tab PO Q6HR PRN 08/28/15 [History ] Lansoprazole [Prevacid] 30 mg PO AC-BID 08/30/16 [History] Propulsid 20mg 20 mg PO QID 02/09/17 [History] LORazepam [Ativan] 0.5 mg PO TID PRN 05/01/17 [History] Claims Collector Thyroid 90mcg 90 mcg PO DAILY 05/01/17 [History] Scopolamine 1.5MG/72Hr Patch [Transderm-Scop 1.5MG/72Hr Patch] 1 patch TRANSDERM Q72H 05/01/17 [History] Follow up Appointment(s)/Referral(s): Karthikeyan Pedro MD [Primary Care Provider] - 1-2 days Discharge Disposition: Left Against Medical Advice
== END 2017-05-02 02:03 | disposition left against medical advice (07) ==
LOC: EC 21:16 → 6SEL 05-01 01:06 → 4MS4W 05-01 16:38
PROVIDERS: ADMIT Internal Medicine; ATTEND Internal Medicine
DX: R51 Headache (principal); D50.9 Iron deficiency anemia, unspecified; K31.84 Gastroparesis; E03.9 Hypothyroidism, unspecified; Z93.4 Other artificial openings of gastrointestinal tract status; Z53.21 Procedure and treatment not carried out due to patient leaving prior to being seen by health care provider; K85.90 Acute pancreatitis without necrosis or infection, unspecified; R50.9 Fever, unspecified; F32.9 Major depressive disorder, single episode, unspecified; G93.89 Other specified disorders of brain; Z95.828 Presence of other vascular implants and grafts; Z79.899 Other long term (current) drug therapy; Z82.49 Family history of ischemic heart disease and other diseases of the circulatory system; Z00.6 Encounter for examination for normal comparison and control in clinical research program
CPT/HCPCS: 96365 ×2; 96375 ×5; 96361 ×7; 99285; 96376 ×2; 96366; 96367; 96372; 36415; 93005; 80053; 82330; 82728; 82040; 83540; 83550; 83605; 83735; 84478; 85025; 81003; 81025; 87040; 87502; 70496; 70450; 70498; G0378 ×3; J2060 ×3; J1200 ×2; J1644; J2930 ×2; Q9967; J1885 ×3; J3475; J0131; J1170

== ENCOUNTER 2017-05-30 01:44 | Inpatient (IN) | payer BC ==
[2017-05-30] MEDS ORDERED: SODIUM CHLORIDE 0.9% 1,000 ML IV STA (02:07)
[2017-05-30] MEDS ORDERED: SODIUM CHLORIDE 0.9% 500 ML IV STA (02:07)
[2017-05-30] MEDS ORDERED: RX INFO: IV CONTRAST WAS GIVEN 1 EACH MISC MISCELLANE PRN (02:09)
[2017-05-30] MEDS ORDERED: MORPHINE SULFATE 4 MG/ML SYRINGE IVP STA (02:48)
[2017-05-30 03:21] LABS: Anisocytosis Slight; Basophils % (A) 0 %; Eosinophils # (A) 0.3 k/uL (0-0.7); Eosinophils % (A) 3 %; HCT 35.4 % (34.0-46.0); HGB 10.6 gm/dL (11.4-16.0); Hypochromasia Marked; Lymphocytes # (A) 3.1 k/uL (1.0-4.8); Lymphocytes % (A) 24 %; MCH 22.5 pg (25.0-35.0); MCHC 29.8 g/dL (31.0-37.0); MCV 75.6 fL (80.0-100.0); Mean Platelet Volume 6.4; Microcytosis Slight; Monocytes % (A) 8 %; Neutrophils # (A) 8.4 k/uL (1.3-7.7); Neutrophils % (A) 64 %; Platelet Count 465 k/uL (150-450); RBC 4.69 m/uL (3.80-5.40); WBC 13.2 k/uL (3.8-10.6)
[2017-05-30 03:22] LABS: Partial Thromboplastin Time 23.6 sec (22.0-30.0); Prothrombin Time 10.2 sec (9.0-12.0)
[2017-05-30 03:26] LABS: ALT 60 U/L (9-52); AST 34 U/L (14-36); Albumin 4.4 g/dL (3.5-5.0); Alkaline Phosphatase 155 U/L (38-126); Anion Gap 14 mmol/L; Blood Urea Nitrogen 16 mg/dL (7-17); Calcium 9.7 mg/dL (8.4-10.2); Carbon Dioxide 19 mmol/L (22-30); Chloride 111 mmol/L (98-107); Glucose 79 mg/dL (74-99); Magnesium 2.2 mg/dL (1.6-2.3); Sodium 144 mmol/L (137-145); Total Bilirubin 0.3 mg/dL (0.2-1.3); Total Protein 7.8 g/dL (6.3-8.2)
[2017-05-30] MEDS ORDERED: HEPARIN SODIUM,PORCINE 5,000 UNIT/ML 1 ML VIAL IV PRN (03:28)
[2017-05-30] MEDS ORDERED: HEPARIN SODIUM,PORCINE 10,000 UNIT/ML 1 ML VIAL IV ONE (03:28)
--- NOTE | 2017-05-30 03:31 | CT ---
EXAMINATION TYPE: CT angio chest DATE OF EXAM: 05/30/2017 3:14 AM COMPARISON: NONE HISTORY: Chest pain CT DLP: 311.30 mGycm Automated exposure control for dose reduction was used. CONTRAST: CTA scan of the thorax is performed with IV Contrast, patient injected with 60 mL of Omnipaque 350, p ulmonary embolism protocol. There are 3-D post processed images. FINDINGS: The lungs are clear of infiltrate. There is no evidence of a pulmonary mass. There is no pleural effu aileen. Heart size is normal. There is no pericardial effusion. There are small filling defects in the right lower lobe pulmonary artery. There is no evidence of aor tic aneurysm or dissection. There is no mediastinal adenopathy. The bony thorax is intact. IMPRESSION: THERE IS EVIDENCE OF RIGHT LOWER LOBE PULMONARY MULTIPLE EMBOLI. THIS EXAM WAS DISCUSSED WITH CAMERON PELLETIER AT 3:30 AM.
[2017-05-30 03:35] LABS: Creatine Kinase 44 U/L (30-135)
[2017-05-30] MEDS ORDERED: NALOXONE 0.4 MG/ML 1 ML VIAL IV PRN (03:45)
[2017-05-30] MEDS ORDERED: HYDROmorphone 0.5 MG/0.5 ML SYRINGE IVP PRN (03:45)
[2017-05-30] MEDS ORDERED: SODIUM CHLORIDE 0.9% 1,000 ML IV SCH (03:45)
[2017-05-30] MEDS ORDERED: LORazepam 0.5 MG TAB PO PRN (03:47)
[2017-05-30] MEDS: HEPARIN SOD,PORK IN 0.45% NACL 25,000 UNIT in 0.45% NACL 1 500ML.BAG IV SCH ×2 (03:47→17:34)
[2017-05-30 03:49] LABS: Creatine Kinase MB <0.2 ng/mL (0.0-2.4); Troponin I <0.012 ng/mL (0.000-0.034)
[2017-05-30] MEDS ORDERED: DEXTROSE 5%-0.45% NACL 1,000 ML IV ONE (03:51)
--- NOTE | 2017-05-30 03:54 | ED ---
General Adult HPI - General Chief complaint: Recheck/Abnormal Lab/Rx Stated complaint: chest tightness Time Seen by Provider: 05/30/17 02:00 Source: patient, RN notes reviewed, old records reviewed Mode of arrival: ambulatory Limitations: no limitations - History of Present Illness Initial comments: 37-year-old female history of idiopathic gastroparesis presenting with chief complaint of chest pain, and dyspnea. Patient has a left upper extremity PICC line which was changed earlier in the week. She was admitted at [facility] at that time with concern for bacteremia. According to the patient this workup was negative. Her PICC line was replaced. Patient has PICC line for TPN. She denies fever or chills. Denies abdominal pain, she does complain of some nausea. Patient also noted some swelling in her left upper extremity which has developed over the past 24 hours. She also reports mild cough. - Related Data Home Medications Medication Instructions Recorded Confirmed Loratadine [Claritin] 10 mg PO DAILY 05/11/14 05/01/17 Linaclotide [Linzess] 290 mcg PO DAILY 01/05/15 05/01/17 oxyCODONE-APAP 10-325MG [Percocet 1 tab PO Q6HR PRN 08/28/15 05/01/17 10-325 mg] Lansoprazole [Prevacid] 30 mg PO AC-BID 08/30/16 05/01/17 Propulsid 20mg 20 mg PO QID 02/09/17 05/01/17 LORazepam [Ativan] 0.5 mg PO TID PRN 05/01/17 05/01/17 Tie Bucker Thyroid 90mcg 90 mcg PO DAILY 05/01/17 05/01/17 Scopolamine 1.5MG/72Hr Patch 1 patch TRANSDERM Q72H 05/01/17 05/01/17 [Transderm-Scop 1.5MG/72Hr Patch] Allergies Allergy/AdvReac Type Severity Reaction Status Date / Time CLINICAL TRIAL Allergy Severe Unknown Uncoded 05/01/17 13:54 Review of Systems ROS Statement: Those systems with pertinent positive or pertinent negative responses have been documented in the HPI. ROS Other: All systems not noted in ROS Statement are negative. Past Medical History Past Medical History: Thyroid Disorder Additional Past Medical History / Comment(s): PANCREATITIS, HYPOTHYROID, gastroparesis, depression, pt recieves TPN through Picc line History of Any Multi-Drug Resistant Organisms: None Reported Past Surgical History: Section, Cholecystectomy, Tonsillectomy Additional Past Surgical History / Comment(s): X3 C-SECTIONS, Edna-en-y in Jan 2015 j tube-feeding tube ,gastric pacer Past Anesthesia/Blood Transfusion Reactions: No Reported Reaction Past Psychological History: Depression Smoking Status: Never smoker Past Alcohol Use History: Rare Past Drug Use History: None Reported - Past Family History Father Family Medical History: Hypertension Additional Family Medical History / Comment(s): DAD IS 55 AND IN [facility] Mother Additional Family Medical History / Comment(s): MOM IS 55 AND IN [facility] General Exam Limitations: no limitations General appearance: alert, in no apparent distress Head exam: Present: atraumatic, normocephalic Eye exam: Present: normal appearance, PERRL, EOMI ENT exam: Present: normal exam Neck exam: Present: normal inspection. Absent: tenderness, meningismus Respiratory exam: Present: normal lung sounds bilaterally. Absent: respiratory distress, wheezes, rales Cardiovascular Exam: Present: normal rhythm, tachycardia GI/Abdominal exam: Present: soft. Absent: distended, tenderness Extremities exam: Present: normal capillary refill, other (No induration, or erythema at the PICC line insertion site in left upper extremity). Absent: calf tenderness Back exam: Present: normal inspection, tenderness (Mild tenderness to palpation upper left thoracic paraspinal) Neurological exam: Present: alert, oriented X3, CN II-XII intact. Absent: motor sensory deficit Psychiatric exam: Present: normal affect, normal mood Skin exam: Present: warm, dry, intact. Absent: cyanosis, diaphoretic Course Vital Signs 05/30/17 05/30/17 05/30/17 01:50 02:51 03:22 Temperature 98.1 F 99.0 F Pulse Rate 124 H 105 H 110 H Respiratory 18 18 18 Rate Blood Pressure 148/74 164/61 124/50 O2 Sat by Pulse 99 100 100 Oximetry EKG Findings - EKG Comments: EKG Findings:: EKG shows sinus tachycardia, rate of 104, GA interval 136, castration 92, QTC 452, there is T-wave inversion in lead 3 and aVF, there is interval gastric stimulator pacer spikes. Medical Decision Making - Medical Decision Making 37-year-old female presenting with chest pain, back pain, and dyspnea. Patient has PICC line, there is concern for DVT and PE. CT angiography is obtained, does show right lower lobe pulmonary embolism. Patient is initiated on heparin. Laboratory studies reveal white blood cell count 13.2 which is mildly elevated, hemoglobin 10.6 which is baseline for this patient. EKG shows sinus tachycardia. Troponin is negative. Patient does remain tachycardic while in the emergency department, heart rate around 110. Echo will be obtained. Patient will be admitted on IV heparin, pulmonology placed on consult. - Lab Data Result diagrams: 05/30/17 02:46 05/30/17 02:46 Lab Results 05/30/17 05/30/17 05/30/17 Range/Units 02:46 02:46 02:46 WBC 13.2 H (3.8-10.6) k/uL RBC 4.69 (3.80-5.40) m/uL Hgb 10.6 L (11.4-16.0) gm/dL Hct 35.4 (34.0-46.0) % MCV 75.6 L (80.0-100.0) fL MCH 22.5 L (25.0-35.0) pg MCHC 29.8 L (31.0-37.0) g/dL RDW 17.0 H (11.5-15.5) % Plt Count 465 H (150-450) k/uL Neutrophils % 64 % Lymphocytes % 24 % Monocytes % 8 % Eosinophils % 3 % Basophils % 0 % Neutrophils # 8.4 H (1.3-7.7) k/uL Lymphocytes # 3.1 (1.0-4.8) k/uL Monocytes # 1.0 (0-1.0) k/uL Eosinophils # 0.3 (0-0.7) k/uL Basophils # 0.0 (0-0.2) k/uL Hypochromasia Marked Anisocytosis Slight Microcytosis Slight PT (9.0-12.0) sec INR (<1.2) APTT (22.0-30.0) sec Sodium 144 (137-145) mmol/L Potassium 4.0 (3.5-5.1) mmol/L Chloride 111 H (98-107) mmol/L Carbon Dioxide 19 L (22-30) mmol/L Anion Gap 14 mmol/L BUN 16 (7-17) mg/dL Creatinine 0.80 (0.52-1.04) mg/dL Est GFR (MDRD) Af Amer >60 (>60 ml/min/1.73 sqM) Est GFR (MDRD) Non-Af >60 (>60 ml/min/1.73 sqM) Glucose 79 (74-99) mg/dL Plasma Lactic Acid Frank (0.7-2.0) mmol/L Calcium 9.7 (8.4-10.2) mg/dL Magnesium 2.2 (1.6-2.3) mg/dL Total Bilirubin 0.3 (0.2-1.3) mg/dL AST 34 (14-36) U/L ALT 60 H (9-52) U/L Alkaline Phosphatase 155 H (38-126) U/L Total Creatine Kinase 44 (30-135) U/L CK-MB (CK-2) <0.2 (0.0-2.4) ng/mL CK-MB (CK-2) Rel Index Troponin I <0.012 (0.000-0.034) ng/mL Total Protein 7.8 (6.3-8.2) g/dL Albumin 4.4 (3.5-5.0) g/dL 05/30/17 05/30/17 Range/Units 02:46 02:46 WBC (3.8-10.6) k/uL RBC (3.80-5.40) m/uL Hgb (11.4-16.0) gm/dL Hct (34.0-46.0) % MCV (80.0-100.0) fL MCH (25.0-35.0) pg MCHC (31.0-37.0) g/dL RDW (11.5-15.5) % Plt Count (150-450) k/uL Neutrophils % % Lymphocytes % % Monocytes % % Eosinophils % % Basophils % % Neutrophils # (1.3-7.7) k/uL Lymphocytes # (1.0-4.8) k/uL Monocytes # (0-1.0) k/uL Eosinophils # (0-0.7) k/uL Basophils # (0-0.2) k/uL Hypochromasia Anisocytosis Microcytosis PT 10.2 (9.0-12.0) sec INR 1.0 (<1.2) APTT 23.6 (22.0-30.0) sec Sodium (137-145) mmol/L Potassium (3.5-5.1) mmol/L Chloride (98-107) mmol/L Carbon Dioxide (22-30) mmol/L Anion Gap mmol/L BUN (7-17) mg/dL Creatinine (0.52-1.04) mg/dL Est GFR (MDRD) Af Amer (>60 ml/min/1.73 sqM) Est GFR (MDRD) Non-Af (>60 ml/min/1.73 sqM) Glucose (74-99) mg/dL Plasma Lactic Acid Frank 1.4 (0.7-2.0) mmol/L Calcium (8.4-10.2) mg/dL Magnesium (1.6-2.3) mg/dL Total Bilirubin (0.2-1.3) mg/dL AST (14-36) U/L ALT (9-52) U/L Alkaline Phosphatase (38-126) U/L Total Creatine Kinase (30-135) U/L CK-MB (CK-2) (0.0-2.4) ng/mL CK-MB (CK-2) Rel Index Troponin I (0.000-0.034) ng/mL Total Protein (6.3-8.2) g/dL Albumin (3.5-5.0) g/dL Critical Care Time Critical Care Time: Yes Total Critical Care Time: 35 Disposition Clinical Impression: Pulmonary embolism Disposition: ADMITTED IP TO THIS [facility] Condition: Serious Referrals: Karthikeyan Pedro MD [Primary Care Provider] - 1-2 days Decision to Admit Reason: Admit from EC Decision Date: 05/30/17 Decision Time: 04:06
[2017-05-30] MEDS ORDERED: PROMETHAZINE 25 MG TAB PO PRN (03:59)
[2017-05-30] MEDS ORDERED: PROMETHAZINE 25 MG TAB PO STA (03:59)
[2017-05-30] MEDS ORDERED: SCOPOLAMINE 1.5MG/72HR PATCH TRANSDERM SCH (04:00)
[2017-05-30] MEDS ORDERED: PROMETHAZINE INJ 25 MG/ML 1 ML VIAL IM STA (04:00)
[2017-05-30] MEDS ORDERED: HYDROmorphone 2 MG TAB PO PRN (04:42)
[2017-05-30] MEDS: HYDROmorphone 0.5 MG/0.5 ML SYRINGE IVP PRN ×2 (08:47→13:54)
[2017-05-30] MEDS: PANTOPRAZOLE 40 MG TABLET PO SCH ×2 (10:05→19:23)
[2017-05-30] MEDS: oxyCODONE-APAP 10-325MG 1 EACH TAB PO PRN (10:05)
[2017-05-30] MEDS: THYROID, PORK 30 MG TAB PO SCH (10:05)
[2017-05-30] MEDS: LORATADINE 10 MG TAB PO SCH (10:06)
--- NOTE | 2017-05-30 10:16 | ECHOF ---
Referral Reason:PE MEASUREMENTS -------- HEIGHT: 160.0 cm WEIGHT: 86.2 kg BP: 140/63 RVIDd: 2.6 cm (< 3.3) IVSd: 1.1 cm (0.6 - 1.1) LVIDd: 3.9 cm (3.9 - 5.3) LVPWd: 1.1 cm (0.6 - 1.1) IVSs: 1.2 cm LVIDs: 3.0 cm LVPWs: 1.2 cm LA Diam: 2.7 cm (2.7 - 3.8) LAESV Index (A-L): 21.60 ml/m Ao Diam: 2.4 cm (2.0 - 3.7) AV Cusp: 1.5 cm (1.5 - 2.6) LA Diam: 3.0 cm (2.7 - 3.8) MV EXCURSION: 14.967 mm (> 18.000) MV EF SLOPE: 82 mm/s (70 - 150) EPSS: 0.2 cm MV E Suresh: 0.54 m/s MV DecT: 233 ms MV A Suresh: 0.67 m/s MV E/A Ratio: 0.80 RAP: 5.00 mmHg RVSP: 20.73 mmHg FINDINGS -------- Sinus rhythm. This was a technically good study. LV size, wall thickness and systolic function are normal, with an EF greater than 55%. The left marisa tricular size is normal. The right ventricle is normal in size. Normal LA size by volume 22+/-6 ml/m2. The right atrial size is normal. The aortic valve is trileaflet, and appears structurally normal. No aortic stenosis or regurgitation. The mitral valve is normal. Mild mitral regurgitation is present. Mild tricuspid regurgitation present. There is no evidence of pulmonary hypertension. The right v entricular systolic pressure, as measured by Doppler, is 20.73mmHg. There is no pulmonic regurgitation present. The aortic root size is normal. There is no pericardial effusion. CONCLUSIONS -------- 1. Sinus rhythm. 2. This was a technically good study. 3. LV size, wall thickness and systolic function are normal, with an EF greater than 55%. 4. The left ventricular size is normal. 5. Normal LA size by volume 22+/-6 ml/m2. 6. The aortic valve is trileaflet, and appears structurally normal. No aortic stenosis or regurgitati on. 7. Mild mitral regurgitation is present. 8. Mild tricuspid regurgitation present. 9. There is no evidence of pulmonary hypertension. 10. There is no pulmonic regurgitation present. 11. The aortic root size is normal. 12. There is no pericardial effusion. B[employer]BALL [employer] SEWER: Crystal Mcdermott RDCS
[2017-05-30] MEDS: PROMETHAZINE INJ 12.5 MG in SODIUM CHLORIDE 0.9% 50 ML IVPB PRN ×2 (11:37→21:07)
[2017-05-30] MEDS: MORPHINE SULFATE 4 MG/ML SYRINGE IVP PRN ×2 (17:00→21:07)
--- NOTE | 2017-05-30 21:28 | HP ---
HISTORY AND PHYSICAL DATE OF SERVICE: 05/30/2017 CHIEF COMPLAINTS: Chest tightness, shortness of breath. HISTORY OF PRESENT ILLNESS: This 37-year-old woman with a past medical history of multiple medical problems including gastroparesis is being followed in Clinic with GERD, hypothyroidism, also has history of pancreatitis, hypothyroidism. Patient is previously admitted to [facility] with bacteremia and has a PICC line which is removed and the patient also has a J-tube, history of J-tube and history of depression. The patient currently complains of chest discomfort and as well as chest tightness, shortness of breath and the patient was however found to have right lower lobe pulmonary embolism. The patient started on heparin and was admitted to the hospital for further evaluation and treatment. There is no history of fever, rigors or chills. No history of headache, loss of consciousness, seizures. The patient is on clinical trial. PAST MEDICAL HISTORY: Of gastroparesis, history of TPN, history of idiopathic gastroparesis, GERD, Hypothyroidism, history of depression. MEDICATIONS: Prior to admission include: 1. Oxycodone. 2. Percocet 1 tablet every 6 hours p.r.n. 3. Thyroid 90 mcg p.o. daily. 4. Claritin 10 mg. 5. Linzess 20 mcg p.o. daily. 6. Prevacid 30 mg p.o. b.i.d. 7. Ativan 0.5 mg t.i.d. p.r.n. ALLERGIES: Allergies are none. SOCIAL HISTORY: Occasional alcohol, no history of smoking. FAMILY HISTORY: History of hypertension in the family. REVIEW OF SYSTEMS: ENT: No diminished hearing or vision. CARDIOVASCULAR: No angina or palpitations. Respiratory: As mentioned earlier. GI: As mentioned earlier. no dysuria. Central nervous system: No numbness or weakness. Allergy/ Immunology: No asthma or hayfever. Musculoskeletal: As mentioned earlier. HEMATOLOGY/ONCOLOGY: No history of anemia. Endocrine: As mentioned earlier. CONSTITUTIONAL: As mentioned earlier. Dermatology: Negative. Rheumatology: As mentioned earlier. Psychiatric: As mentioned earlier. PHYSICAL EXAMINATION: Alert and oriented times three. Pulse 84, blood pressure 140/89, respiration 20, temp 97.3, pulse ox 100% on 2 L. HEENT: Conjunctivae normal. Oral mucosa moist. Neck is no jugular venous distention. No carotid bruit. No lymph node enlargement. Cardiovascular S1-S2. Respiratory : Breath sounds diminished in the bases. A few scattered rhonchi and crackles. Expiratory wheezing also present. ABDOMEN: Soft, nontender. No mass palpable. Legs no edema and no swelling. Central nervous system: Higher functions as mentioned earlier. Moves all four extremities. No focal deficits. Lymphatics: No lymph nodes palpable in the neck, axillae or groin. Skin: No ulcer, rashes or bleeding. LABS: WBC 13.2, hemoglobin 10.6, and APTT 28.1. CO2 is 19. ALT 60. ASSESSMENT: 1. Shortness of breath with possible acute pulmonary embolism right lower lobe. 2. History of recent bacteremia related to PICC line. 3. Status post PICC line for TPN. 4. Idiopathic gastroparesis being followed by [facility] on a clinical trial. 5. History of J-tube feed. 6. History of pancreatitis. 7. History of hypothyroidism. 8. Chronic anemia. 9. History of headaches and migraine. 10.History of cholecystectomy. 11.History of depression. 12.History of gastroesophageal reflux disease. 13.Hypothyroidism. 14.History of Edna-en-Y. 15.History syndrome. 16.History of cholecystectomy. 17. RECOMMENDATIONS AND DISCUSSION: Recommend to continue current medications, management and symptomatic treatment. Otherwise, at this time, I recommend continue with the current medications, continue with symptomatic treatment. Otherwise at this time I recommend continue with IV heparin. Continue current management. Continue with IV heparin. The patient will be a candidate for anticoagulants and Dr. Wilkes will be consulted. Repeat labs are ordered. I will monitor PTT closely. We will resume the home medications. DVT prophylaxis. I would also recommend the ultrasound of the legs and as well as upper limbs. Prognosis guarded because of multiple complex medical issues and further recommendations to follow. See orders for further details. MMODL / IJN: [id number] / MTDD
[2017-05-31] MEDS: MORPHINE SULFATE 4 MG/ML SYRINGE IVP PRN ×8 (00:13→23:12)
[2017-05-31] MEDS: PANTOPRAZOLE 40 MG TABLET PO SCH (06:40)
[2017-05-31 06:45] LABS: Anion Gap 11 mmol/L; Blood Urea Nitrogen 10 mg/dL (7-17); Calcium 9.4 mg/dL (8.4-10.2); Carbon Dioxide 22 mmol/L (22-30); Chloride 110 mmol/L (98-107); Glucose 84 mg/dL (74-99); Phosphorus 5.4 mg/dL (2.5-4.5); Potassium 4.1 mmol/L (3.5-5.1); Sodium 143 mmol/L (137-145); Triglycerides 144 mg/dL (<150)
[2017-05-31 07:07] LABS: Anisocytosis Slight; Basophils # (A) 0.1 k/uL (0-0.2); Basophils % (A) 1 %; Eosinophils # (A) 0.3 k/uL (0-0.7); Eosinophils % (A) 4 %; HCT 34.4 % (34.0-46.0); HGB 10.1 gm/dL (11.4-16.0); Hypochromasia Marked; Lymphocytes # (A) 3.6 k/uL (1.0-4.8); Lymphocytes % (A) 49 %; MCH 22.4 pg (25.0-35.0); MCHC 29.4 g/dL (31.0-37.0); Mean Platelet Volume 6.3; Microcytosis Slight; Monocytes # (A) 0.4 k/uL (0-1.0); Monocytes % (A) 6 %; Neutrophils # (A) 2.8 k/uL (1.3-7.7); Neutrophils % (A) 38 %; Platelet Count 408 k/uL (150-450); RBC 4.53 m/uL (3.80-5.40); RDW 16.5 % (11.5-15.5); WBC 7.3 k/uL (3.8-10.6)
[2017-05-31] MEDS: PROMETHAZINE INJ 12.5 MG in SODIUM CHLORIDE 0.9% 50 ML IVPB PRN ×3 (07:20→20:19)
--- NOTE | 2017-05-31 09:08 | US ---
EXAMINATION TYPE: US venous doppler duplex LE DATE OF EXAM: 05/30/2017 9:52 PM COMPARISON: NONE CLINICAL HISTORY: pe. PE SIDE PERFORMED: Bilateral TECHNIQUE: The lower extremity deep venous system is examined utilizing real time linear array sonog cedrick with graded compression, doppler sonography and color-flow sonography. VESSELS IMAGED: External Iliac Vein (EIV) Common Femoral Vein Deep Femoral Vein Greater Saphenous Vein * Femoral Vein Popliteal Vein Small Saphenous Vein * Proximal Calf Veins (* superficial vessels) Right Leg: Negative for DVT Left Leg: Negative for DVT No evidence of DVT bilateral legs. IMPRESSION: 1. No evidence of DVT bilaterally.
[2017-05-31 09:15] VITALS: RESP 18
--- NOTE | 2017-05-31 09:39 | US ---
EXAMINATION TYPE: US venous doppler duplex UE BI DATE OF EXAM: 05/31/2017 COMPARISON: NONE CLINICAL HISTORY: Pulmonary embolism, patient is currently on blood thinners. Picc line in left arm. Difficult exam due to very small veins. SIDE PERFORMED: Bilateral Right Arm: Appears negative for DVT Left Arm: Appears negative for DVT IMPRESSION: 1. No diagnostic evidence of DVT.
[2017-05-31] MEDS: THYROID, PORK 30 MG TAB PO SCH (11:14)
[2017-05-31] MEDS: LORATADINE 10 MG TAB PO SCH (11:14)
--- NOTE | 2017-05-31 11:39 | P.CNPUL ---
History of Present Illness Consult date: 05/31/17 Requesting physician: Antwon Teresa Reason for consult: dyspnea, abnormal CXR/CT Chief complaint: Pain on inhalation, shortness of breath History of present illness: This is a very pleasant 37-year-old female patient who has a history of hypothyroidism, pancreatitis, depression, idiopathic gastroparesis with previous Edna-en-Y in January 2015 and J-tube feeding tube. She had a PICC line placed last February had become dysfunctional. She was at [facility] there is concern regarding bacteremia which was reported as negative. She had a new PICC line and placed there on a May 25 2017 her chest present here to our emergency room on 05/30/2017 with complaints of increasing shortness of breath chest pain with inhalation pain through to her back. A CT angiogram revealed a right lower lobe pulmonary multiple emboli. Lungs were otherwise clear. She been initiated on heparin drip. She is seen today in consultation on the selective care unit. She is awake and alert in no acute distress. She is maintaining O2 saturations up to 100% on room air. She's been afebrile. No tachycardia. No tachypnea. Hemodynamically stable. Echocardiogram revealed no right ventricular strain. Preserved left ventricular systolic function at the ejection fraction of 55%. Dopplers of both the upper and lower extremities are all negative for DVT. Review of Systems 10 point review of system was conducted. All negative other than as mentioned in the HPI that including pulmonary: Shortness of breath, pain on inhalation. Past Medical History Past Medical History: GERD/Reflux, Thyroid Disorder Additional Past Medical History / Comment(s): Idiopathic gastroparesis, recent admission to [facility] for concerns for bacteremia (has Picc line) but pt states this was ruled out and has new picc line on 05/25/2017, pt received TPN and has a J tube for tube feedings-states she takes very little in orally, pancreatitis, hypothyroid, chronic anemia, sinus problems, recently admitted with headache which pt states was her first migraine. 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, j tube-feeding tube , gastric pacer, colonoscopy, EGD/ERCP Past Anesthesia/Blood Transfusion Reactions: No Reported Reaction Smoking Status: Never smoker - Past Family History Father Family Medical History: Hypertension Additional Family Medical History / Comment(s): DAD IS 55 AND IN [place] [facility] Mother Additional Family Medical History / Comment(s): MOM IS 55 AND IN [place] [facility] Medications and Allergies Home Medications Medication Instructions Recorded Confirmed Type Loratadine [Claritin] 10 mg PO DAILY 05/11/14 05/30/17 History Linaclotide [Linzess] 290 mcg PO DAILY 01/05/15 05/30/17 History oxyCODONE-APAP 10-325MG [Percocet 1 tab PO Q6HR PRN 08/28/15 05/30/17 History 10-325 mg] Lansoprazole [Prevacid] 30 mg PO AC-BID 08/30/16 05/30/17 History LORazepam [Ativan] 0.5 mg PO TID PRN 05/01/17 05/30/17 History Meat Trimmer Thyroid 90mcg 90 mcg PO DAILY 05/01/17 05/30/[address] 30 mg PO AC-BID 05/31/17 Rx Allergies Allergy/AdvReac Type Severity Reaction Status Date / Time CLINICAL TRIAL Allergy Severe Unknown Uncoded 05/01/17 13:54 Physical Exam Vitals: Vital Signs Temp Pulse Resp BP Pulse Ox 05/31/17 08:00 98.2 F 73 18 124/68 100 05/31/17 03:57 75 16 05/31/17 03:55 97.0 F L 75 16 119/59 100 05/31/17 00:00 81 16 05/30/17 23:57 97.2 F L 81 16 117/78 100 05/30/17 20:00 97.0 F L 81 16 133/76 100 05/30/17 17:20 97.3 F L 84 20 146/89 100 05/30/17 11:46 94 137/61 98 Intake and Output 05/30/17 05/31/17 05/31/17 22:59 06:59 14:59 Intake Total 457.871 80 Balance 457.871 80 Intake: Intake, IV Titration 217.871 50 Amount Heparin Sod,Pork in 0.45% 217.871 NaCl 25,000 unit In 0.45 % NaCl 1 500ml.bag @ 18 UNITS/KG/HR 29.39 mls/hr IV .Q17H1M [facility] Rx#: [id number] Promethazine Inj 12.5 mg 50 In Sodium Chloride 0.9% 50 ml @ 200 mls/hr IVPB Q6HR PRN Rx#:[id number] Oral 240 30 Other: Voiding Method Toilet Toilet Toilet # Voids 1 1 1 Weight 86.1 kg GENERAL EXAM: Alert, active, comfortable in no apparent distress. HEAD: Normocephalic. EYES: Normal reaction of pupils, equal size. NOSE: Clear with pink turbinates. THROAT: No erythema or exudates. NECK: No masses, no JVD. CHEST: No chest wall deformity. LUNGS: Equal air entry with no crackles, wheeze, rhonchi or dullness. CVS: S1 and S2 normal with no audible murmur, regular rhythm. ABDOMEN: J-tube feeding tube exit site dry and intact. No hepatosplenomegaly, normal bowel sounds, no guarding or rigidity. SPINE: No scoliosis or deformity SKIN: No rashes CENTRAL NERVOUS SYSTEM: No focal deficits, tone is normal in all 4 extremities. EXTREMITIES: PICC line in the left upper extremity. There is no peripheral edema. No clubbing, no cyanosis. Peripheral pulses are intact. Results - Laboratory Findings CBC and BMP: 05/31/17 05:43 05/31/17 05:43 PT/INR, D-dimer PT 10.2 sec (9.0-12.0) 05/30/17 02:46 INR 1.0 (<1.2) 05/30/17 02:46 Abnormal lab findings: Abnormal Labs 05/30/17 05/30/17 05/30/17 02:46 02:46 09:18 WBC 13.2 H Hgb 10.6 L MCV 75.6 L MCH 22.5 L MCHC 29.8 L RDW 17.0 H Plt Count 465 H Neutrophils # 8.4 H APTT 68.1 H Chloride 111 H Carbon Dioxide 19 L Phosphorus ALT 60 H Alkaline Phosphatase 155 H 05/31/17 05/31/17 05/31/17 05:43 05:43 05:43 WBC Hgb 10.1 L MCV 76.0 L MCH 22.4 L MCHC 29.4 L RDW 16.5 H Plt Count Neutrophils # APTT 61.5 H Chloride 110 H Carbon Dioxide Phosphorus 5.4 H ALT Alkaline Phosphatase - Diagnostic Findings CT scan - chest: image reviewed U/S of Legs: image reviewed Assessment and Plan Assessment: Impression: #1 Acute right lower lobe pulmonary emboli, suspect secondary to recent PICC line removal and reinsertion of a new one. Doppler of the upper extremities negative. Doppler of the bilateral lower extremities negative. Echocardiogram does not reveal any significant right ventricular strain. #2 History of idiopathic gastroparesis with subsequent J-tube insertion. TPN. Gastric stimulator in place. #3 History of Edna-en-Y procedure. #4 Hypothyroidism. #5 History of depression. #6 History of pancreatitis. #7 History of migraines. Plan: The patient was seen and evaluated by Dr. Moran. Her CAT scan was reviewed. We 'll go ahead and initiate Xarelto. She will need at least 3-6 months of anticoagulants. We will repeat a computed tomography scan of the chest in 8-12 weeks. Medrol Dosepak for pleuritic chest pain. We will continue to follow and make further recommendations based on her clinical status. I, the cosigning physician, performed a history & physical examination of the patient. Lungs sounds are clear. Maintaining good O2 saturations in the 90s on room air. I discussed the assessment and plan of care with my nurse practitioner, Rajni Trejo. I attest to the above consultation as dictated by her. Time with Patient: Greater than 30
[2017-05-31] MEDS ORDERED: RIVAROXABAN 15 MG TAB PO ONE (12:45)
[2017-05-31] MEDS: methylPREDNISolone 4 MG TAB TAPER PO SCH (18:29)
[2017-05-31] MEDS: oxyCODONE-APAP 10-325MG 1 EACH TAB PO PRN (18:32)
[2017-05-31] MEDS: RIVAROXABAN 15 MG TAB PO SCH (20:19)
[2017-05-31] MEDS ORDERED: [UNRECOGNIZED DRUG - OTHER] IV ONE (21:00)
--- NOTE | 2017-05-31 21:50 | PN ---
PROGRESS NOTE DATE OF SERVICE: 05/31/2017. HISTORY: This 37-year-old woman was admitted with acute pulmonary embolism, also complaining of back pain. The venous Doppler has been negative, of the left and right arm. No chest pain. No palpitations. No fever. The patient has been initiated on Xarelto at this time. EXAM: Alert and oriented x3. Pulse is 82, blood pressure 120/60, respirations 18, temperature 98.2, pulse ox 99% on room air. HEENT: Conjunctivae normal. NECK: No JVD. CARDIOVASCULAR: S1 and S2 muffled. LUNGS: Breath sounds diminished at the bases. No rhonchi, no crackles. ABDOMEN: Soft, nontender. No mass palpable. LEGS: No edema. No swelling. NERVOUS SYSTEM: No focal deficits. LABS: WBC 7.2, hemoglobin 10.1. Other labs are noted. Urine HCG is negative. ASSESSMENT: 1. Shortness of breath with possible acute pulmonary embolism on the right lower lobe. 2. Right lower chest pains, possibly pleuritic. 3. History of recent bacteremia related to PICC line. 4. Status post PICC line for TPN. 5. Idiopathic gastroparesis, being followed at [facility] on a clinical trial. 6. History of J-tube feeding. 7. History of pancreatitis. 8. History hypothyroidism. 9. Chronic anemia. 10.History of headaches and migraine. 11.History of cholecystectomy. 12.History of depression. 13.History of gastroesophageal reflux disease. 14.History hypothyroidism. 15.History of Edna-en-Y. 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 17.History of cholecystectomy. RECOMMENDATIONS: Recommend to continue current management and continue with the Xarelto. Increase ambulation. Pain medications. Closely follow with pulmonary. Guarded prognosis. Further recommendations to follow. MMODL / IJN: [id number] /
[2017-06-01] MEDS: PROMETHAZINE INJ 12.5 MG in SODIUM CHLORIDE 0.9% 50 ML IVPB PRN ×2 (03:21→10:19)
[2017-06-01] MEDS: MORPHINE SULFATE 4 MG/ML SYRINGE IVP PRN ×4 (03:21→13:30)
[2017-06-01 06:01] LABS: Basophils % (A) 0 %; Eosinophils % (A) 0 %; HCT 37.6 % (34.0-46.0); HGB 11.2 gm/dL (11.4-16.0); Hypochromasia Marked; Lymphocytes # (A) 0.7 k/uL (1.0-4.8); Lymphocytes % (A) 12 %; MCH 22.4 pg (25.0-35.0); MCHC 29.8 g/dL (31.0-37.0); MCV 75.2 fL (80.0-100.0); Mean Platelet Volume 6.6; Microcytosis Slight; Monocytes # (A) 0.2 k/uL (0-1.0); Monocytes % (A) 3 %; Neutrophils # (A) 5.5 k/uL (1.3-7.7); Neutrophils % (A) 85 %; Platelet Count 427 k/uL (150-450); RBC 4.99 m/uL (3.80-5.40); RDW 15.9 % (11.5-15.5); WBC 6.4 k/uL (3.8-10.6)
[2017-06-01] MEDS: RIVAROXABAN 15 MG TAB PO SCH (06:42)
[2017-06-01 08:23] LABS: Anion Gap 12 mmol/L; Blood Urea Nitrogen 16 mg/dL (7-17); Calcium 9.7 mg/dL (8.4-10.2); Carbon Dioxide 23 mmol/L (22-30); Chloride 105 mmol/L (98-107); Glucose 250 mg/dL (74-99); Magnesium 2.1 mg/dL (1.6-2.3); Phosphorus 2.6 mg/dL (2.5-4.5); Potassium 4.5 mmol/L (3.5-5.1); Sodium 140 mmol/L (137-145)
[2017-06-01] MEDS: LORATADINE 10 MG TAB PO SCH (08:23)
[2017-06-01] MEDS: THYROID, PORK 30 MG TAB PO SCH (08:23)
[2017-06-01] MEDS: methylPREDNISolone 4 MG TAB TAPER PO SCH (08:23)
[2017-06-01 08:27] VITALS: TEMP 98.2
[2017-06-01] MEDS: oxyCODONE-APAP 10-325MG 1 EACH TAB PO PRN ×2 (08:42→14:46)
[2017-06-01 11:40] LABS: Glucose,Whole Blood 125 mg/dL (75-99)
--- NOTE | 2017-06-01 11:51 | P.PN ---
Subjective Progress Note Date: 06/01/17 Principal diagnosis: Pulmonary embolism Progress note dated 06/01/2017 This is a very pleasant 37-year-old female who was admitted with a diagnosis of acute right lower lobe pulmonary embolism. She had a PICC line in and that was removed. Subsequently was placed. Dopplers of the upper extremities and the lower extremities were all negative. We believe the pulmonary most him his results of the PICC line. She does have a history of idiopathic gastroparesis history of Edna-en-Y procedure hypothyroidism depression pancreatitis and migraine cephalgia. She's doing well. She did have a bit of a pleuritic type chest a Medrol Dosepak. She feeling much better today. She will be discharged home today. I believe she qualifies for a factor X a inhibitor. Because is a provoked a blood clot, I told her she should be treated for only 3 months. She needs a follow-up computed tomography scan about an 8-10 weeks from now. Objective - Vital Signs Vital signs: Vital Signs Temp 98.2 F 06/01/17 08:00 Pulse 95 06/01/17 08:00 Resp 18 06/01/17 04:00 BP 127/81 06/01/17 08:00 Pulse Ox 98 06/01/17 08:00 Intake & Output 05/31/17 06/01/17 06/01/17 18:59 06:59 18:59 Intake Total 370 118 Balance 370 118 Weight 85 kg Intake: Intake, IV Titration 50 Amount Promethazine Inj 12.5 mg 50 In Sodium Chloride 0.9% 50 ml @ 200 mls/hr IVPB Q6HR PRN Rx#:[id number] Oral 320 118 Other: Voiding Method Toilet Toilet # Voids 2 2 2 - Exam No acute distress, oriented 3. HEENT examination is grossly unremarkable. Mucous membranes are moist. No oral lesions. Neck supple. Full range of motion. No adenopathy thyromegaly or neck vein distention. Cardiovascular examination reveals regular rhythm rate. S1-S2 normal. No S3 or S4. No discernible murmur noted. Lungs reveal clear breath sounds. Her sounds are equal bilaterally. No adventitious lung sounds including wheezes rhonchi or crackles. Abdomen soft bowel sounds are heard. No masses or tenderness. Extremities are intact. No cyanosis clubbing or edema. Skin is without rash or lesion. Neurologic examination is brief but nonfocal. - Labs CBC & Chem 7: 06/01/17 05:46 06/01/17 05:46 Labs: Abnormal Lab Results - Last 24 Hours (Table) 06/01/17 06/01/17 06/01/17 Range/Units 05:46 05:46 11:35 Hgb 11.2 L (11.4-16.0) gm/dL MCV 75.2 L (80.0-100.0) fL MCH 22.4 L (25.0-35.0) pg MCHC 29.8 L (31.0-37.0) g/dL RDW 15.9 H (11.5-15.5) % Lymphocytes # 0.7 L (1.0-4.8) k/uL Glucose 250 H (74-99) mg/dL POC Glucose (mg/dL) 125 H (75-99) mg/dL Microbiology - Last 24 Hours (Table) 05/30/17 02:46 Blood Culture - Preliminary Blood No Growth after 48 hours Assessment and Plan Assessment: Assessment Acute right lower lobe pulmonary most him, likely secondary to a previous insertion of a PICC line History of idiopathic gastroparesis status post J-tube insertion History of Edna-en-Y procedure Hypothyroidism Present Pancreatitis Migraine cephalgia Plan: Plan dated 05/24/2017. The patient's doing well. The plan is to discharge home. She'll be on her blood thinner for about 3 months. A follow-up computed tomography scan should be in 8-10 weeks. The patient was also given a Medrol Dosepak starting yesterday. No additional recommendations are made. Prognosis is good. Time with Patient: Less than 30
[2017-06-01] MEDS ORDERED: INSULIN ASPART 100 UNIT/ML 1 ML 10 ML VIAL SQ SCH (12:30)
[2017-06-01 12:37] VITALS: BMI 33.2
[2017-06-01 12:39] VITALS: BP 110/60; PULSE 76
[2017-06-01] MEDS ORDERED: [UNRECOGNIZED DRUG - OTHER] IV ONE (21:00)
--- NOTE | 2017-06-01 22:20 | DS ---
DISCHARGE SUMMARY FINAL DIAGNOSIS: 1. Shortness of breath with possible acute pulmonary embolism in the right lower lobe. 2. Right lower chest pains possible pleuritic. 3. History of recent bacteremia related to PICC line. 4. Status post PICC line for TPN. 5. Idiopathic gastroparesis being followed in [facility] and on clinically trials. 6. History of J-tube feedings. 7. History of pancreatitis. 8. History hypothyroidism. 9. History of chronic anemia. 10.History of headaches and migraines. 11.History of cholecystectomy. 12.History of depression. 13.History of gastroesophageal reflux disease. 14.Hypothyroidism. 15.History of Edna-En-Y. 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 17.History of cholecystectomy. DISCHARGE DISPOSITION: The patient being discharged in stable condition with guarded prognosis. HISTORY OF PRESENT ILLNESS: This 37-year-old woman with past medical history of multiple medical problems being admitted with acute shortness of breath and pulmonary embolus, treated with heparin and then Xarelto. The patient improved significantly. The patient being discharged in stable condition with guarded prognosis. DISCHARGE INSTRUCTIONS: 1. Diet is cardiac diet. 2. Activity limited until followup. 3. Follow up with as advised. 4. Follow up with Dr. Moran as advised. MEDICATIONS ARE: 1. Prevacid 30 mg p.o. b.i.d. 2. Linzess 290 mg p.o. daily. 3. Claritin 10 mg. 4. Ativan 0.5 mg daily. 5. Medrol Dosepak p.r.n. 6. Thyroid 90 mcg daily. 7. Oxycodone 1 tablet every 6 hours p.r.n. 8. Xarelto starter pack. Once again, the patient being discharged in stable condition with guarded prognosis. MMODL / IJN: [id number] / MTDD
== END 2017-06-01 14:55 | disposition home or self-care (01) | DRG 176 ==
LOC: EC 01:44 → 6SEL 03:45
PROVIDERS: ADMIT Hospitalist; ATTEND Hospitalist
DX: I26.99 Other pulmonary embolism without acute cor pulmonale (principal); K31.84 Gastroparesis; D64.9 Anemia, unspecified; E03.9 Hypothyroidism, unspecified; F32.9 Major depressive disorder, single episode, unspecified; R00.0 Tachycardia, unspecified; K21.9 Gastro-esophageal reflux disease without esophagitis; Z82.49 Family history of ischemic heart disease and other diseases of the circulatory system; Z79.899 Other long term (current) drug therapy; Z79.891 Long term (current) use of opiate analgesic; Z86.69 Personal history of other diseases of the nervous system and sense organs; Z90.49 Acquired absence of other specified parts of digestive tract; Z90.89 Acquired absence of other organs; Z87.19 Personal history of other diseases of the digestive system; Z98.84 Bariatric surgery status
CPT/HCPCS: 36415; 71275; 80048; 80053; 81025; 82550; 82553; 83605; 83735; 84100; 84478; 84484; 85025; 85610; 85730; 87040; 93005; 93306; 93970; 94760; 96361; 96365; 96366; 96368; 96372; 96375; 96376; 99291

== ENCOUNTER → 2017-08-02 | Outpatient (CLI) | payer BC ==
--- NOTE | 2017-08-02 18:11 | CT ---
EXAMINATION TYPE: CT angio chest DATE OF EXAM: 08/02/2017 COMPARISON: 05/30/2017 HISTORY: Follow up for PE. CT DLP: 570 mGycm CONTRAST: CT chest with contrast and 3D reconstruction with MIP imaging is performed with IV Contrast, patient injected with 74ml mL of Isovue 370. Contrast-enhanced CT of the chest was performed through the course of the pulmonary arteries with jatin g and mediastinal window settings submitted. 3D reconstruction with MIP imaging was also performed. PULMONARY ARTERIES: The pulmonary arteries and their major tributaries are patent. I do not see bobby dence for sizable filling defect to suggest pulmonary embolic process. LUNGS: The lungs are clear and free of infiltrate. No evidence for atelectasis. No pulmonary nodule or mass is detected. No pleural effusion. MEDIASTINUM: Thoracic aorta is of normal caliber,however, evaluation is limited given timing of the contrast bolus. If there is concern for thoracic aortic pathology consider DARLING. Correlate clinicall y . The heart is not enlarged. No evidence for mediastinal mass. No mediastinal lymph nodes greater than 1cm. HILAR STRUCTURES: No evidence for mass. No hilar lymph nodes greater than 1 cm. UPPER ABDOMEN: No significant abnormality is seen. IMPRESSION: 1. No evidence for Pulmonary embolism at this time. Resolution of previously noted small right-sided pulmonary embolism.
== END | disposition home or self-care (01) ==
LOC: RADCTMAIN 16:49
PROVIDERS: ATTEND Internal Medicine Critical Care Medicine
DX: Z09 Encounter for follow-up examination after completed treatment for conditions other than malignant neoplasm (principal); Z86.711 Personal history of pulmonary embolism
CPT/HCPCS: 71275; Q9967

== ENCOUNTER 2017-10-22 22:36 | Emergency (ER) | payer BC ==
[2017-10-22 22:42] VITALS: PULSE 98
[2017-10-22] MEDS ORDERED: SODIUM CHLORIDE 0.9% 1,000 ML IV STA (22:51)
[2017-10-22 23:24] LABS: Anisocytosis Slight; Appearance,Urine Clear (Clear); Basophils % (A) 0 %; Bilirubin,Urine Negative (Negative); Blood,Urine Negative (Negative); Color,Urine Light Yellow; Eosinophils # (A) 0.2 k/uL (0-0.7); Eosinophils % (A) 2 %; Glucose,Urine (UA) Negative (Negative); HCT 28.9 % (34.0-46.0); HGB 8.7 gm/dL (11.4-16.0); Hypochromasia Marked; Ketones,Urine Negative (Negative); Leukocyte Esterase,Urine Negative (Negative); Lymphocytes # (A) 2.7 k/uL (1.0-4.8); Lymphocytes % (A) 24 %; MCH 19.5 pg (25.0-35.0); MCHC 30.1 g/dL (31.0-37.0); MCV 64.8 fL (80.0-100.0); Mean Platelet Volume 6.4; Microcytosis Marked; Monocytes # (A) 0.7 k/uL (0-1.0); Monocytes % (A) 6 %; Neutrophils # (A) 7.5 k/uL (1.3-7.7); Neutrophils % (A) 65 %; Nitrite,Urine Negative (Negative); PH, Urine 7.5 (5.0-8.0); Platelet Count 473 k/uL (150-450); Poikilocytosis Slight; Protein,Urine Negative (Negative); RBC 4.47 m/uL (3.80-5.40); RDW 16.8 % (11.5-15.5); Specific Gravity,Urine 1.008 (1.001-1.035); Urobilinogen,Urine <2.0 mg/dL (<2.0); WBC 11.5 k/uL (3.8-10.6)
--- NOTE | 2017-10-22 23:29 | XR ---
EXAMINATION TYPE: XR chest 2V DATE OF EXAM: 10/22/2017 COMPARISON: 02/16/2017 HISTORY: Chest pain TECHNIQUE: Frontal and lateral views of the chest are obtained. FINDINGS: Heart and mediastinum are normal. Lungs are clear. Diaphragm is normal. There is right kelsie tral venous catheter with tip in the superior vena cava. Bony thorax is intact. IMPRESSION: Normal chest. No change.
[2017-10-22 23:33] LABS: ALT 26 U/L (9-52); AST 15 U/L (14-36); Albumin 4.1 g/dL (3.5-5.0); Alkaline Phosphatase 113 U/L (38-126); Anion Gap 9 mmol/L; Blood Urea Nitrogen 11 mg/dL (7-17); Calcium 9.5 mg/dL (8.4-10.2); Carbon Dioxide 20 mmol/L (22-30); Chloride 111 mmol/L (98-107); Glucose 81 mg/dL (74-99); Magnesium 2.1 mg/dL (1.6-2.3); Potassium 3.8 mmol/L (3.5-5.1); Sodium 140 mmol/L (137-145); Total Bilirubin 0.2 mg/dL (0.2-1.3); Total Protein 6.6 g/dL (6.3-8.2)
[2017-10-22 23:37] LABS: D-Dimer 0.24 mg/L FEU (<0.60); Partial Thromboplastin Time 24.7 sec (22.0-30.0)
[2017-10-22 23:42] LABS: Creatine Kinase 41 U/L (30-135)
[2017-10-22] MEDS ORDERED: PROMETHAZINE INJ 25 MG in SODIUM CHLORIDE 0.9% 50 ML IVPB ONE (23:49)
[2017-10-22] MEDS ORDERED: diphenhydrAMINE 50 MG/ML 1 ML VIAL IVP STA (23:49)
--- NOTE | 2017-10-22 23:54 | ED ---
General Adult HPI - General Chief complaint: Chest Pain Stated complaint: SOB Hx of PE's Time Seen by Provider: 10/22/17 22:50 Source: patient, family Mode of arrival: ambulatory Limitations: no limitations - History of Present Illness Initial comments: Maribel is a 37-year-old female with a extensive past medical history most significant for recurrent pulmonary embolisms initially diagnosed in May of this year and again diagnosed in August. The patient also has a complicated history of gastroparesis for which she had a gastric stimulator and is now on TPN. Patient is on L Davis by mouth for her previous pulmonary embolisms. However she reports that she has concern that due to her gastroparesis and frequent vomiting she may not be absorbing her medications appropriately. Patient presents to the emergency department today for evaluation of shortness of breath and back pain which is similar in character to previous episodes of pulmonary embolism. She reports that she has been compliant with her home medications including her eliquis, however she does have concern that due to her gastroparesis she has had some vomiting and potentially some decreased absorption of her medication. In the past when she has had this difficulty she has been on Lovenox, however she currently is not on Lovenox she is on eliquis. She wanted to check and see if she needed to potentially change her medication. 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 Thyroid 90mcg 90 mcg PO DAILY 05/01/17 05/30/17 Previous Rx's Medication Instructions Recorded Lansoprazole Dr 30 mg PO AC-BID 05/31/17 Rivaroxaban [Xarelto Starter Pack] 1 each PO DIRECTED #1 tab 05/31/17 methylPREDNISolone [Medrol Dose 4 mg PO DIRECTED 7 Days #1 pack 06/01/17 Pack] Azithromycin [Zithromax] 250 mg PO DAILY 4 Days #25 ml 10/23/17 Allergies Allergy/AdvReac Type Severity Reaction Status Date / Time metoclopramide [From Reglan] Allergy Unknown Verified 10/22/17 22:42 CLINICAL TRIAL Allergy Severe Unknown Uncoded 05/01/17 13:54 Review of Systems ROS Statement: Those systems with pertinent positive or pertinent negative responses have been documented in the HPI. ROS Other: All systems not noted in ROS Statement are negative. Past Medical History Past Medical History: GERD/Reflux, Thyroid Disorder Additional Past Medical History / Comment(s): Idiopathic gastroparesis, recent admission to [facility] for concerns for bacteremia (has Picc line) but pt states this was ruled out and has new picc line on 05/25/2017, pt received TPN and has a J tube for tube feedings-states she takes very little in orally, pancreatitis, hypothyroid, chronic anemia, sinus problems, recently admitted with headache which pt states was her first migraine. 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, j tube-feeding tube , gastric pacer, colonoscopy, EGD/ERCP Past Anesthesia/Blood Transfusion Reactions: No Reported Reaction Past Psychological History: Depression Smoking Status: Never smoker Past Alcohol Use History: None Reported Past Drug Use History: None Reported - Past Family History Father Family Medical History: Hypertension Additional Family Medical History / Comment(s): DAD IS 55 AND IN [facility] Mother Additional Family Medical History / Comment(s): MOM IS 55 AND IN [facility] General Exam Limitations: no limitations General appearance: alert Head exam: Present: atraumatic, normocephalic Eye exam: Present: PERRL ENT exam: Present: normal exam, mucous membranes moist Neck exam: Present: normal inspection Respiratory exam: Present: chest wall tenderness, prolonged expiratory, other ( coughing, TPN line in place) Cardiovascular Exam: Present: regular rate, normal rhythm, normal heart sounds. Absent: systolic murmur, diastolic murmur GI/Abdominal exam: Present: soft, other (j-tube in place) Rectal exam: Present: deferred Extremities exam: Present: normal inspection, full ROM, normal capillary refill. Absent: pedal edema Back exam: Present: normal inspection Neurological exam: Present: alert, oriented X3, normal gait Psychiatric exam: Present: normal affect, normal mood Skin exam: Present: warm, dry. Absent: petechiae, pallor Course Vital Signs 10/22/17 22:38 Temperature 99.4 F Pulse Rate 98 Respiratory 20 Rate Blood Pressure 136/90 O2 Sat by Pulse 100 Oximetry Medical Decision Making - Lab Data Result diagrams: 10/22/17 23:04 10/22/17 23:04 Lab Results 10/22/17 10/22/17 10/22/17 Range/Units 23:04 23:04 23:04 WBC 11.5 H (3.8-10.6) k/uL RBC 4.47 (3.80-5.40) m/uL Hgb 8.7 L (11.4-16.0) gm/dL Hct 28.9 L (34.0-46.0) % MCV 64.8 L (80.0-100.0) fL MCH 19.5 L (25.0-35.0) pg MCHC 30.1 L (31.0-37.0) g/dL RDW 16.8 H (11.5-15.5) % Plt Count 473 H (150-450) k/uL Neutrophils % 65 % Lymphocytes % 24 % Monocytes % 6 % Eosinophils % 2 % Basophils % 0 % Neutrophils # 7.5 (1.3-7.7) k/uL Lymphocytes # 2.7 (1.0-4.8) k/uL Monocytes # 0.7 (0-1.0) k/uL Eosinophils # 0.2 (0-0.7) k/uL Basophils # 0.0 (0-0.2) k/uL Hypochromasia Marked Poikilocytosis Slight Anisocytosis Slight Microcytosis Marked PT (9.0-12.0) sec INR (<1.2) APTT (22.0-30.0) sec D-Dimer (<0.60) mg/L FEU Sodium 140 (137-145) mmol/L Potassium 3.8 (3.5-5.1) mmol/L Chloride 111 H (98-107) mmol/L Carbon Dioxide 20 L (22-30) mmol/L Anion Gap 9 mmol/L BUN 11 (7-17) mg/dL Creatinine 0.80 (0.52-1.04) mg/dL Est GFR (CKD-EPI)AfAm >90 (>60 ml/min/1.73 sqM) Est GFR (CKD-EPI)NonAf >90 (>60 ml/min/1.73 sqM) Glucose 81 (74-99) mg/dL Calcium 9.5 (8.4-10.2) mg/dL Magnesium 2.1 (1.6-2.3) mg/dL Total Bilirubin 0.2 (0.2-1.3) mg/dL AST 15 (14-36) U/L ALT 26 (9-52) U/L Alkaline Phosphatase 113 (38-126) U/L Total Creatine Kinase 41 (30-135) U/L CK-MB (CK-2) 0.3 (0.0-2.4) ng/mL CK-MB (CK-2) Rel Index 0.7 Troponin I <0.012 (0.000-0.034) ng/mL NT-Pro-B Natriuret Pep pg/mL Total Protein 6.6 (6.3-8.2) g/dL Albumin 4.1 (3.5-5.0) g/dL Urine Color Urine Appearance (Clear) Urine pH (5.0-8.0) Ur Specific [place] (1.001-1.035) Urine Protein (Negative) Urine Glucose (UA) (Negative) Urine Ketones (Negative) Urine Blood (Negative) Urine Nitrite (Negative) Urine Bilirubin (Negative) Urine Urobilinogen (<2.0) mg/dL Ur Leukocyte Esterase (Negative) 10/22/17 10/22/17 10/22/17 Range/Units 23:04 23:04 23:04 WBC (3.8-10.6) k/uL RBC (3.80-5.40) m/uL Hgb (11.4-16.0) gm/dL Hct (34.0-46.0) % MCV (80.0-100.0) fL MCH (25.0-35.0) pg MCHC (31.0-37.0) g/dL RDW (11.5-15.5) % Plt Count (150-450) k/uL Neutrophils % % Lymphocytes % % Monocytes % % Eosinophils % % Basophils % % Neutrophils # (1.3-7.7) k/uL Lymphocytes # (1.0-4.8) k/uL Monocytes # (0-1.0) k/uL Eosinophils # (0-0.7) k/uL Basophils # (0-0.2) k/uL Hypochromasia Poikilocytosis Anisocytosis Microcytosis PT 10.0 (9.0-12.0) sec INR 1.0 (<1.2) APTT 24.7 (22.0-30.0) sec D-Dimer 0.24 (<0.60) mg/L FEU Sodium (137-145) mmol/L Potassium (3.5-5.1) mmol/L Chloride (98-107) mmol/L Carbon Dioxide (22-30) mmol/L Anion Gap mmol/L BUN (7-17) mg/dL Creatinine (0.52-1.04) mg/dL Est GFR (CKD-EPI)AfAm (>60 ml/min/1.73 sqM) Est GFR (CKD-EPI)NonAf (>60 ml/min/1.73 sqM) Glucose (74-99) mg/dL Calcium (8.4-10.2) mg/dL Magnesium (1.6-2.3) mg/dL Total Bilirubin (0.2-1.3) mg/dL AST (14-36) U/L ALT (9-52) U/L Alkaline Phosphatase (38-126) U/L Total Creatine Kinase (30-135) U/L CK-MB (CK-2) (0.0-2.4) ng/mL CK-MB (CK-2) Rel Index Troponin I (0.000-0.034) ng/mL NT-Pro-B Natriuret Pep 57 pg/mL Total Protein (6.3-8.2) g/dL Albumin (3.5-5.0) g/dL Urine Color Light Yellow Urine Appearance Clear (Clear) Urine pH 7.5 (5.0-8.0) Ur Specific [place] 1.008 (1.001-1.035) Urine Protein Negative (Negative) Urine Glucose (UA) Negative (Negative) Urine Ketones Negative (Negative) Urine Blood Negative (Negative) Urine Nitrite Negative (Negative) Urine Bilirubin Negative (Negative) Urine Urobilinogen <2.0 (<2.0) mg/dL Ur Leukocyte Esterase Negative (Negative) Disposition Clinical Impression: Pleurisy, CAP (community acquired pneumonia) Disposition: HOME SELF-CARE Condition: Good Instructions: Pneumonia (ED) Prescriptions: Azithromycin [Zithromax] 250 mg PO DAILY 4 Days #25 ml Is patient prescribed a controlled substance at d/c from ED?: No Referrals: Karthikeyan Pedro MD [Primary Care Provider] - 1-2 days Time of Disposition: 01:09
[2017-10-22 23:55] LABS: Creatine Kinase MB 0.3 ng/mL (0.0-2.4); Troponin I <0.012 ng/mL (0.000-0.034)
--- NOTE | 2017-10-23 01:02 | CT ---
EXAMINATION TYPE: CT chest angio for PE DATE OF EXAM: 10/23/2017 COMPARISON: 08/02/2017 HISTORY: R/O PE CT DLP: 380.10 mGycm Automated exposure control for dose reduction was used. CONTRAST: CT Chest for pulmonary embolism performed with with IV Contrast, patient injected with 70 mL of Isovu e 370. FINDINGS: There are 3-D post processed images. The lungs are clear of consolidation. There is no evidence of a pulmonary mass. There is no pleural e ffusion. There is minimal pleural thickening at the right posterior lung base. Heart size is normal. There is no pericardial effusion. There are clips from cholecystectomy. Thoracic aorta appears intact. There is no evidence of aneurysm or dissection. I see no filling defec ts in the pulmonary arteries. There are no hilar masses. There is no mediastinal adenopathy. IMPRESSION: Negative CT angiogram of the chest. No evidence of pulmonary embolism. There is new minimal pleural r eaction at the right lung base compared to old exam.
[2017-10-23] MEDS ORDERED: AZITHROMYCIN 1,200 MG/30 ML BOTTLE PO STA (01:05)
[2017-10-23 02:21] VITALS: BP 123/61; RESP 16; TEMP 98.1
== END 2017-10-23 02:20 | disposition home or self-care (01) ==
LOC: EC 22:36
DX: J18.9 Pneumonia, unspecified organism (principal); R09.1 Pleurisy; K21.9 Gastro-esophageal reflux disease without esophagitis; E03.9 Hypothyroidism, unspecified; Z79.899 Other long term (current) drug therapy; Z88.8 Allergy status to other drugs, medicaments and biological substances
CPT/HCPCS: 36415; 93005; 85379; 83880; 80053; 82550; 82553; 83735; 84484; 85025; 85610; 85730; 81003; 71046; 71275; 99285; 96365; 96375; 96361; J1200; J2550; Q9967

== ENCOUNTER → 2017-11-07 | Outpatient (CLI) | payer BC ==
[2017-11-07 12:15] LABS: Anisocytosis Moderate; Basophils # (A) 0.1 k/uL (0-0.2); Basophils % (A) 1 %; Eosinophils # (A) 0.2 k/uL (0-0.7); Eosinophils % (A) 3 %; HCT 33.2 % (34.0-46.0); HGB 9.4 gm/dL (11.4-16.0); Hypochromasia Marked; Lymphocytes # (A) 1.8 k/uL (1.0-4.8); Lymphocytes % (A) 24 %; MCH 19.4 pg (25.0-35.0); MCHC 28.5 g/dL (31.0-37.0); MCV 68.2 fL (80.0-100.0); Mean Platelet Volume 6.4; Microcytosis Marked; Monocytes # (A) 0.3 k/uL (0-1.0); Monocytes % (A) 4 %; Neutrophils # (A) 4.8 k/uL (1.3-7.7); Neutrophils % (A) 65 %; Platelet Count 491 k/uL (150-450); Poikilocytosis Slight; RBC 4.87 m/uL (3.80-5.40); RDW 23.4 % (11.5-15.5); WBC 7.3 k/uL (3.8-10.6)
[2017-11-07 12:36] LABS: ALT 36 U/L (9-52); AST 21 U/L (14-36); Albumin 4.2 g/dL (3.5-5.0); Alkaline Phosphatase 121 U/L (38-126); Anion Gap 8 mmol/L; Blood Urea Nitrogen 15 mg/dL (7-17); Calcium 9.6 mg/dL (8.4-10.2); Carbon Dioxide 24 mmol/L (22-30); Chloride 108 mmol/L (98-107); Glucose 95 mg/dL (74-99); Magnesium 2.1 mg/dL (1.6-2.3); Phosphorus 4.3 mg/dL (2.5-4.5); Potassium 4.7 mmol/L (3.5-5.1); Sodium 140 mmol/L (137-145); Total Bilirubin 0.6 mg/dL (0.2-1.3); Total Protein 6.9 g/dL (6.3-8.2); Triglycerides 124 mg/dL (<150)
== END | disposition home or self-care (01) ==
LOC: LABWHC1 11:49
PROVIDERS: ATTEND Internal Medicine
DX: K31.84 Gastroparesis (principal)
CPT/HCPCS: 36415; 80053; 83735; 84100; 84134; 84478; 85025

== ENCOUNTER 2018-01-11 02:44 | Emergency (ER) | payer BC ==
[2018-01-11 02:52] VITALS: RESP 16
[2018-01-11 03:15] LABS: Anisocytosis Moderate; Basophils % (A) 0 %; Eosinophils # (A) 0.1 k/uL (0-0.7); Eosinophils % (A) 1 %; HCT 39.6 % (34.0-46.0); HGB 13.2 gm/dL (11.4-16.0); Lymphocytes # (A) 0.7 k/uL (1.0-4.8); Lymphocytes % (A) 9 %; MCH 25.9 pg (25.0-35.0); MCHC 33.3 g/dL (31.0-37.0); Mean Platelet Volume 6.4; Microcytosis Moderate; Monocytes # (A) 0.2 k/uL (0-1.0); Monocytes % (A) 2 %; Neutrophils # (A) 7.5 k/uL (1.3-7.7); Neutrophils % (A) 87 %; Platelet Count 308 k/uL (150-450); RBC 5.08 m/uL (3.80-5.40); RDW 20.7 % (11.5-15.5); WBC 8.6 k/uL (3.8-10.6)
[2018-01-11 03:26] LABS: MCV 77.9 fL (80.0-100.0)
[2018-01-11 03:27] LABS: Albumin 3.6 g/dL (3.5-5.0); Calcium 9.1 mg/dL (8.4-10.2); Potassium 3.8 mmol/L (3.5-5.1); Total Bilirubin 0.4 mg/dL (0.2-1.3); Total Protein 6.4 g/dL (6.3-8.2)
[2018-01-11] MEDS: SODIUM CHLORIDE 0.9% 500 ML 500 ML IV SCH ×4 (03:29→05:45)
[2018-01-11 03:30] LABS: INR 1.1 (<1.2); Prothrombin Time 10.9 sec (9.0-12.0)
[2018-01-11 03:44] LABS: Appearance,Urine Cloudy (Clear); Bacteria,Urine Occasional /hpf; Bilirubin,Urine Negative (Negative); Blood,Urine Negative (Negative); Color,Urine Yellow; Glucose,Urine (UA) Negative (Negative); Ketones,Urine Negative (Negative); Leukocyte Esterase,Urine Moderate (Negative); Mucus,Urine Rare /hpf; Nitrite,Urine Negative (Negative); Protein,Urine Negative (Negative); RBC,Urine 1 /hpf (0-5); Specific Gravity,Urine 1.018 (1.001-1.035); Squamous Epithelial Cell,Urine 4 /hpf (0-4); Urobilinogen,Urine <2.0 mg/dL (<2.0); WBC,Urine 3 /hpf (0-5)
[2018-01-11] MEDS ORDERED: KETOROLAC 30 MG/ML 1 ML VIAL IVP ONE (04:05)
--- NOTE | 2018-01-11 04:05 | ED ---
General Adult HPI - General Chief complaint: Fever Stated complaint: Sepsis Time Seen by Provider: 01/11/18 03:03 Source: patient Mode of arrival: EMS Limitations: no limitations - History of Present Illness Initial comments: Maribel is a 37-year-old female with a very complicated past medical history most significant for profound gastroparesis for which she has a gastric stimulator as well as an indwelling Butcher line for IV fluid resuscitation. Patient presents the emergency department today for evaluation of fever and generalized malaise. Patient reports she was in her usual state of health throughout the week. She was evaluated by her home health care nurse on Tuesday. Her Butcher site appeared well. She received her flu shot. She reports that she felt well after that. She reports that throughout the day today she progressively worsening fatigue and this evening she developed overwhelming fatigue, body aches, fever of 105 Fahrenheit at home. She took Tylenol and Motrin but her fever persisted and she began to feel very weak at which time she decided to call 911. EMS reports that they found the patient diaphoretic having riders with a fever in the 103 range as well as profound tachycardia. She was arty infusing 1 L fluid through her Butcher line upon arrival that continued to infuse during transport to the ER. - Related Data Home Medications Medication Instructions Recorded Confirmed Loratadine [Claritin] 10 mg PO DAILY 05/11/14 05/30/17 Linaclotide [Linzess] 290 mcg PO DAILY 01/05/15 05/30/17 oxyCODONE-APAP 10-325MG [Percocet 1 tab PO Q6HR PRN 08/28/15 05/30/17 10-325 mg] Lansoprazole [Prevacid] 30 mg PO AC-BID 08/30/16 05/30/17 LORazepam [Ativan] 0.5 mg PO TID PRN 05/01/17 05/30/17 Service Plumber Thyroid 90mcg 90 mcg PO DAILY 05/01/17 05/30/17 Previous Rx's Medication Instructions Recorded Lansoprazole Dr 30 mg PO AC-BID 05/31/17 Rivaroxaban [Xarelto Starter Pack] 1 each PO DIRECTED #1 tab 05/31/17 methylPREDNISolone [Medrol Dose 4 mg PO DIRECTED 7 Days #1 pack 06/01/17 Pack] Azithromycin [Zithromax] 250 mg PO DAILY 4 Days #25 ml 10/23/17 Allergies Allergy/AdvReac Type Severity Reaction Status Date / Time metoclopramide [From Reglan] Allergy Unknown Verified 10/22/17 22:42 CLINICAL TRIAL Allergy Severe Unknown Uncoded 05/01/17 13:54 Review of Systems ROS Statement: Those systems with pertinent positive or pertinent negative responses have been documented in the HPI. ROS Other: All systems not noted in ROS Statement are negative. Constitutional: Reports: fever, chills Respiratory: Denies: cough, dyspnea Cardiovascular: Reports: palpitations. Denies: chest pain Endocrine: Reports: fatigue Gastrointestinal: Reports: nausea, vomiting Genitourinary: Denies: urgency, dysuria Skin: Denies: rash, lesions Neurological: Reports: weakness Psychiatric: Denies: anxiety, depression Hematological/Lymphatic: Denies: easy bleeding Past Medical History Past Medical History: GERD/Reflux, Thyroid Disorder Additional Past Medical History / Comment(s): Idiopathic gastroparesis, recent admission to [facility] for concerns for bacteremia (has Picc line) but pt states this was ruled out and has new picc line on 05/25/2017, pt received TPN and has a J tube for tube feedings-states she takes very little in orally, pancreatitis, hypothyroid, chronic anemia, sinus problems, recently admitted with headache which pt states was her first migraine. 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, j tube-feeding tube , gastric pacer, colonoscopy, EGD/ERCP Past Anesthesia/Blood Transfusion Reactions: No Reported Reaction Past Psychological History: Depression Smoking Status: Never smoker Past Alcohol Use History: None Reported Past Drug Use History: None Reported - Past Family History Father Family Medical History: Hypertension Additional Family Medical History / Comment(s): DAD IS 55 AND IN [facility] Mother Additional Family Medical History / Comment(s): MOM IS 55 AND IN [facility] General Exam - General Exam Comments Initial Comments: GENERAL: Ill-appearing diaphoretic female HENT: Normocephalic, Atraumatic. Neck is soft and supple. No significant lymphadenopathy is noted. Oropharynx is clear. Moist mucous membranes. Neck has full range of motion without eliciting any pain. EYES: The sclera were anicteric and conjunctiva were pink and moist. Extraocular movements were intact and pupils were equal round and reactive to light. Eyelids were unremarkable. PULMONARY: Tachypnea with clear respirations Butcher line in place in the right chest CARDIOVASCULAR: Tachycardia, regular rhythm, warm and well perfused extremities ABDOMEN: Soft, nontender nondistended SKIN: Skin is flushed and diaphoretic NEUROLOGIC: Patient is alert and oriented x3. Cranial nerves II through XII are grossly intact. Motor and sensory are also intact. Normal speech, volume and content. Symmetrical smile. MUSCULOSKELETAL: Normal extremities with adequate strength and full range of motion. No lower extremity swelling or edema. No calf tenderness. LYMPHATICS: No significant lymphadenopathy is noted PSYCHIATRIC: Normal psychiatric evaluation. Limitations: no limitations Limitations: no limitations Course Vital Signs 01/11/18 01/11/18 01/11/18 02:48 03:40 04:00 Temperature 102.0 F H 102.3 F H 101.8 F H Pulse Rate 140 H 123 H 114 H Respiratory 16 16 Rate Blood Pressure 107/56 113/56 108/55 O2 Sat by Pulse 97 96 100 Oximetry 01/11/18 05:00 Temperature 100.6 F H Pulse Rate 115 H Respiratory 16 Rate Blood Pressure 113/65 O2 Sat by Pulse 97 Oximetry EKG Findings - EKG Comments: EKG Findings:: EKG obtained at 3 AM, rate is 136, rhythm is sinus tachycardia, there is significant respiratory artifact but no evidence of acute ischemia or infarction. Medical Decision Making - Medical Decision Making The patient was seen and evaluated, history was obtained from the patient, at bedside, review of medical record. Vital signs were reviewed, patient is tachycardic, febrile a full sepsis workup was ordered Labs reveal lactic acidosis with lactate of 3.0, no other significant abnormalities x-ray negative for acute pathology Assessment no evidence of UTI influenza negative No identifiable source of infection, however the patient does have an indwelling Butcher line. There is high risk for line sepsis. We'll treat empirically with Rocephin and plan for admission. This plan was discussed with the patient and her who preferred transfer to [facility] where she receives all of her care. Patient care was discussed with Dr. Godfrey at [facility], who accepts the transfer for sepsis of unknown origin with an indwelling Butcher line. - Lab Data Result diagrams: 01/11/18 02:55 01/11/18 02:55 Lab Results 01/11/18 01/11/18 01/11/18 Range/Units 02:55 02:55 02:55 WBC 8.6 (3.8-10.6) k/uL RBC 5.08 (3.80-5.40) m/uL Hgb 13.2 (11.4-16.0) gm/dL Hct 39.6 (34.0-46.0) % MCV 77.9 L D (80.0-100.0) fL MCH 25.9 (25.0-35.0) pg MCHC 33.3 (31.0-37.0) g/dL RDW 20.7 H (11.5-15.5) % Plt Count 308 (150-450) k/uL Neutrophils % 87 % Lymphocytes % 9 % Monocytes % 2 % Eosinophils % 1 % Basophils % 0 % Neutrophils # 7.5 (1.3-7.7) k/uL Lymphocytes # 0.7 L (1.0-4.8) k/uL Monocytes # 0.2 (0-1.0) k/uL Eosinophils # 0.1 (0-0.7) k/uL Basophils # 0.0 (0-0.2) k/uL Anisocytosis Moderate Microcytosis Moderate PT (9.0-12.0) sec INR (<1.2) APTT (22.0-30.0) sec Sodium 137 (137-145) mmol/L Potassium 3.8 (3.5-5.1) mmol/L Chloride 110 H (98-107) mmol/L Carbon Dioxide 16 L (22-30) mmol/L Anion Gap 11 mmol/L BUN 16 (7-17) mg/dL Creatinine 0.98 (0.52-1.04) mg/dL Est GFR (CKD-EPI)AfAm 86 (>60 ml/min/1.73 sqM) Est GFR (CKD-EPI)NonAf 75 (>60 ml/min/1.73 sqM) Glucose 93 (74-99) mg/dL Plasma Lactic Acid Frank 3.0 H* (0.7-2.0) mmol/L Calcium 9.1 (8.4-10.2) mg/dL Total Bilirubin 0.4 (0.2-1.3) mg/dL AST 23 (14-36) U/L ALT 16 (9-52) U/L Alkaline Phosphatase 97 (38-126) U/L Troponin I (0.000-0.034) ng/mL Total Protein 6.4 (6.3-8.2) g/dL Albumin 3.6 (3.5-5.0) g/dL Urine Color Urine Appearance (Clear) Urine pH (5.0-8.0) Ur Specific [place] (1.001-1.035) Urine Protein (Negative) Urine Glucose (UA) (Negative) Urine Ketones (Negative) Urine Blood (Negative) Urine Nitrite (Negative) Urine Bilirubin (Negative) Urine Urobilinogen (<2.0) mg/dL Ur Leukocyte Esterase (Negative) Urine RBC (0-5) /hpf Urine WBC (0-5) /hpf Ur Squamous Epith Cells (0-4) /hpf Urine Bacteria (None) /hpf Urine Mucus (None) /hpf Influenza Type A RNA (Not Detectd) Influenza Type B (PCR) (Not Detectd) 01/11/18 01/11/18 01/11/18 Range/Units 02:55 02:55 03:30 WBC (3.8-10.6) k/uL RBC (3.80-5.40) m/uL Hgb (11.4-16.0) gm/dL Hct (34.0-46.0) % MCV (80.0-100.0) fL MCH (25.0-35.0) pg MCHC (31.0-37.0) g/dL RDW (11.5-15.5) % Plt Count (150-450) k/uL Neutrophils % % Lymphocytes % % Monocytes % % Eosinophils % % Basophils % % Neutrophils # (1.3-7.7) k/uL Lymphocytes # (1.0-4.8) k/uL Monocytes # (0-1.0) k/uL Eosinophils # (0-0.7) k/uL Basophils # (0-0.2) k/uL Anisocytosis Microcytosis PT 10.9 (9.0-12.0) sec INR 1.1 (<1.2) APTT 25.0 (22.0-30.0) sec Sodium (137-145) mmol/L Potassium (3.5-5.1) mmol/L Chloride (98-107) mmol/L Carbon Dioxide (22-30) mmol/L Anion Gap mmol/L BUN (7-17) mg/dL Creatinine (0.52-1.04) mg/dL Est GFR (CKD-EPI)AfAm (>60 ml/min/1.73 sqM) Est GFR (CKD-EPI)NonAf (>60 ml/min/1.73 sqM) Glucose (74-99) mg/dL Plasma Lactic Acid Frank (0.7-2.0) mmol/L Calcium (8.4-10.2) mg/dL Total Bilirubin (0.2-1.3) mg/dL AST (14-36) U/L ALT (9-52) U/L Alkaline Phosphatase (38-126) U/L Troponin I <0.012 (0.000-0.034) ng/mL Total Protein (6.3-8.2) g/dL Albumin (3.5-5.0) g/dL Urine Color Yellow Urine Appearance Cloudy H (Clear) Urine pH 6.0 (5.0-8.0) Ur Specific [place] 1.018 (1.001-1.035) Urine Protein Negative (Negative) Urine Glucose (UA) Negative (Negative) Urine Ketones Negative (Negative) Urine Blood Negative (Negative) Urine Nitrite Negative (Negative) Urine Bilirubin Negative (Negative) Urine Urobilinogen <2.0 (<2.0) mg/dL Ur Leukocyte Esterase Moderate H (Negative) Urine RBC 1 (0-5) /hpf Urine WBC 3 (0-5) /hpf Ur Squamous Epith Cells 4 (0-4) /hpf Urine Bacteria Occasional H (None) /hpf Urine Mucus Rare H (None) /hpf Influenza Type A RNA (Not Detectd) Influenza Type B (PCR) (Not Detectd) 01/11/18 Range/Units 03:38 WBC (3.8-10.6) k/uL RBC (3.80-5.40) m/uL Hgb (11.4-16.0) gm/dL Hct (34.0-46.0) % MCV (80.0-100.0) fL MCH (25.0-35.0) pg MCHC (31.0-37.0) g/dL RDW (11.5-15.5) % Plt Count (150-450) k/uL Neutrophils % % Lymphocytes % % Monocytes % % Eosinophils % % Basophils % % Neutrophils # (1.3-7.7) k/uL Lymphocytes # (1.0-4.8) k/uL Monocytes # (0-1.0) k/uL Eosinophils # (0-0.7) k/uL Basophils # (0-0.2) k/uL Anisocytosis Microcytosis PT (9.0-12.0) sec INR (<1.2) APTT (22.0-30.0) sec Sodium (137-145) mmol/L Potassium (3.5-5.1) mmol/L Chloride (98-107) mmol/L Carbon Dioxide (22-30) mmol/L Anion Gap mmol/L BUN (7-17) mg/dL Creatinine (0.52-1.04) mg/dL Est GFR (CKD-EPI)AfAm (>60 ml/min/1.73 sqM) Est GFR (CKD-EPI)NonAf (>60 ml/min/1.73 sqM) Glucose (74-99) mg/dL Plasma Lactic Acid Frank (0.7-2.0) mmol/L Calcium (8.4-10.2) mg/dL Total Bilirubin (0.2-1.3) mg/dL AST (14-36) U/L ALT (9-52) U/L Alkaline Phosphatase (38-126) U/L Troponin I (0.000-0.034) ng/mL Total Protein (6.3-8.2) g/dL Albumin (3.5-5.0) g/dL Urine Color Urine Appearance (Clear) Urine pH (5.0-8.0) Ur Specific [place] (1.001-1.035) Urine Protein (Negative) Urine Glucose (UA) (Negative) Urine Ketones (Negative) Urine Blood (Negative) Urine Nitrite (Negative) Urine Bilirubin (Negative) Urine Urobilinogen (<2.0) mg/dL Ur Leukocyte Esterase (Negative) Urine RBC (0-5) /hpf Urine WBC (0-5) /hpf Ur Squamous Epith Cells (0-4) /hpf Urine Bacteria (None) /hpf Urine Mucus (None) /hpf Influenza Type A RNA Not Detected (Not Detectd) Influenza Type B (PCR) Not Detected (Not Detectd) Disposition Clinical Impression: Sepsis Disposition: OTHER INSTITUTION NOT DEFINED Is patient prescribed a controlled substance at d/c from ED?: No Referrals: Karthikeyan Pedro MD [Primary Care Provider] - 1-2 days - Out of Hospital Transfer - Req. Specs Out of Hospital Transfer - Requested Specifics: Other Emergency Center
--- NOTE | 2018-01-11 04:33 | XR ---
EXAMINATION TYPE: XR chest 2V DATE OF EXAM: 01/11/2018 COMPARISON: 10/22/2017 HISTORY: Fever TECHNIQUE: Frontal and lateral views of the chest are obtained. FINDINGS: Heart and mediastinum are normal. Lungs are clear. Diaphragm is normal. There is right kelsie tral venous catheter with tip in the superior vena cava. Bony thorax is intact. IMPRESSION: Normal chest. No change.
[2018-01-11] MEDS ORDERED: PROMETHAZINE INJ 25 MG in SODIUM CHLORIDE 0.9% 50 ML IVPB STA (05:00)
[2018-01-11 05:36] VITALS: BP 113/65; PULSE 115; TEMP 100.6
== END 2018-01-11 05:58 | disposition other institution (70) ==
LOC: EC 02:44
DX: A41.9 Sepsis, unspecified organism (principal); K21.9 Gastro-esophageal reflux disease without esophagitis; E03.9 Hypothyroidism, unspecified; Z87.19 Personal history of other diseases of the digestive system; Z96.9 Presence of functional implant, unspecified; Z93.8 Other artificial opening status; Z95.818 Presence of other cardiac implants and grafts; Z79.899 Other long term (current) drug therapy; Z88.8 Allergy status to other drugs, medicaments and biological substances; Z91.048 Other nonmedicinal substance allergy status
CPT/HCPCS: 99285; 96365; 96375 ×2; 36415; 93005; 80053; 83605; 84484; 85025; 85610; 85730; 81001; 87040; 87086; 87077; 87186; 87502; 71046; J2550; J0696; J1885

== ENCOUNTER 2018-02-02 12:58 | Emergency (ER) | payer BC ==
[2018-02-02] MEDS ORDERED: SODIUM CHLORIDE 0.9% 1,000 ML IV STA (13:27)
[2018-02-02] MEDS ORDERED: MORPHINE SULFATE 4 MG/ML SYRINGE IVP PRN (13:27)
[2018-02-02] MEDS ORDERED: PIPERACILLIN-TAZOBACTAM 3.375 GM in SODIUM CHLORIDE 0.9% 100 ML IVPB STA (13:29)
--- NOTE | 2018-02-02 13:34 | ED ---
General Adult HPI - General Chief complaint: Fever Stated complaint: septic Source: patient, EMS Mode of arrival: EMS - History of Present Illness Initial comments: Dictation was produced using [employer] dictation software. please excuse any grammatical, word or spelling errors. Chief Complaint: 37-year-old female with past medical history of gastroparesis with Butcher catheter placed with chief complaint of fever, chills and muscle cramping. She was recently admitted to [facility] for bacteremia secondary to catheter site infection. History of Present Illness: 37-year-old female who was recently admitted to [facility] for bacteremia sepsis. She was evaluated here proximally one month ago for similar complaint. She was transferred to [facility] were her usual physicians are. Patient does have history of gastroparesis and has a Butcher catheter. She was seen here where blood cultures were obtained and positive for Klebsiella and Enterobacter. She is transferred to [facility] at that time and was admitted to the hospital for several days. She was just discharged from [facility] almost 2 weeks ago. She completed outpatient course of ciprofloxacin that she just finished on Tuesday and her symptoms recurred 2 days ago. 2 days ago she began experiencing fever, chills, muscle cramping. Denies any cough, burning on urination. No nausea vomiting or diarrhea. The ROS documented in this emergency department record has been reviewed and confirmed by me. Those systems with pertinent positive or negative responses have been documented in the HPI. All other systems are other negative and/or noncontributory. - Related Data Home Medications Medication Instructions Recorded Confirmed Face Hardener Thyroid 90mcg 90 mcg PO DAILY 05/01/17 02/02/18 Apixaban [Eliquis] 5 mg PO BID 02/02/18 02/02/18 Lansoprazole [Prevacid] 30 mg PO BID 02/02/18 02/02/18 Montelukast Chew [Singulair Chew] 10 mg PO DAILY 02/02/18 02/02/18 Topiramate [Trokendi Xr] 50 mg PO DAILY 02/02/18 02/02/18 Allergies Allergy/AdvReac Type Severity Reaction Status Date / Time metoclopramide [From Reglan] Allergy jittery Verified 02/02/18 14:05 Review of Systems ROS Statement: Those systems with pertinent positive or pertinent negative responses have been documented in the HPI. ROS Other: All systems not noted in ROS Statement are negative. Past Medical History Past Medical History: GERD/Reflux, Thyroid Disorder Additional Past Medical History / Comment(s): Idiopathic gastroparesis, recent admission to [facility] for concerns for bacteremia (has Picc line) but pt states this was ruled out and has new picc line on 05/25/2017, pt received TPN and has a J tube for tube feedings-states she takes very little in orally, pancreatitis, hypothyroid, chronic anemia, sinus problems, recently admitted with headache which pt states was her first migraine. 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, j tube-feeding tube , gastric pacer, colonoscopy, EGD/ERCP Past Anesthesia/Blood Transfusion Reactions: No Reported Reaction Past Psychological History: Depression Smoking Status: Never smoker Past Alcohol Use History: None Reported Past Drug Use History: None Reported - Past Family History Father Family Medical History: Hypertension Additional Family Medical History / Comment(s): DAD IS 55 AND IN [place] [facility] Mother Additional Family Medical History / Comment(s): MOM IS 55 AND IN [place] [facility] General Exam - General Exam Comments Initial Comments: PHYSICAL EXAM: General Impression: Mildly lethargic, acute distress secondary to pain HEENT: Normocephalic atraumatic, extra-ocular movements intact, pupils equal and reactive to light bilaterally, mucous membranes moist. Cardiovascular: Tachycardic Chest: Lungs clear to auscultation bilaterally, no rhonchi, no wheeze, no rales Abdomen: Bowel sounds present, abdomen soft, non-tender, non-distended, no organomegaly Musculoskeletal: Pulses present and equal in all extremities, no peripheral edema Motor: Power 5/5 bilaterally, no focal deficits noted Neurological: CN II-XII grossly intact, no focal motor or sensory deficits noted Skin: Intact with no visualized rashes Psych: Normal affect and mood Course Vital Signs 02/02/18 02/02/18 02/02/18 13:08 14:11 15:00 Temperature 103.7 F H 100.7 F H Pulse Rate 147 H 109 H 103 H Respiratory 24 18 18 Rate Blood Pressure 111/54 131/71 122/76 O2 Sat by Pulse 98 99 97 Oximetry Medical Decision Making - Medical Decision Making ED course:-year-old female with a recent history of bacteremia sepsis presents with recurrent constitutional symptoms. There is strong clinical suspicion that her symptoms are suggestive of persistent bacteremia. Vital signs upon arrival shows temperature 103.7, heart rate 147. Patient appears ill on physical examination. Septic workup was pursued. Blood cultures were reviewed from last admission showing positive blood cultures for Enterobacter Klebsiella. Patient started on appropriate antibiotics based on culture and sensitivities.Laboratory evaluation obtained. CBC is unremarkable. Metabolic panel shows non-gap acidosis with a bicarb of 16. Rest of metabolic panel is unremarkable. Chest x-ray was obtained showing no acute processes. Given the patient had recent history of bacteremia there is strong clinical suspicion that this is return. Her Butcher catheter site does not appear infected from the outside. There is strong clinical suspicion however that patient's bacteremia is the cause of her symptoms. Blood cultures and urine cultures obtained. Patient started Levaquin based on recent microbiology panel. Patient to be transferred to [facility] per request. - Lab Data Result diagrams: 02/02/18 13:40 02/02/18 13:40 Lab Results 02/02/18 02/02/18 02/02/18 Range/Units 13:40 13:40 13:40 WBC 8.6 (3.8-10.6) k/uL RBC 4.96 (3.80-5.40) m/uL Hgb 13.2 (11.4-16.0) gm/dL Hct 40.0 (34.0-46.0) % MCV 80.5 (80.0-100.0) fL MCH 26.6 (25.0-35.0) pg MCHC 33.0 (31.0-37.0) g/dL RDW 17.2 H (11.5-15.5) % Plt Count 271 (150-450) k/uL Neutrophils % 90 % Lymphocytes % 7 % Monocytes % 3 % Eosinophils % 0 % Basophils % 0 % Neutrophils # 7.8 H (1.3-7.7) k/uL Lymphocytes # 0.6 L (1.0-4.8) k/uL Monocytes # 0.2 (0-1.0) k/uL Eosinophils # 0.0 (0-0.7) k/uL Basophils # 0.0 (0-0.2) k/uL Anisocytosis Slight Microcytosis Slight Sodium 140 (137-145) mmol/L Potassium 3.4 L (3.5-5.1) mmol/L Chloride 115 H (98-107) mmol/L Carbon Dioxide 16 L (22-30) mmol/L Anion Gap 9 mmol/L BUN 11 (7-17) mg/dL Creatinine 0.88 (0.52-1.04) mg/dL Est GFR (CKD-EPI)AfAm >90 (>60 ml/min/1.73 sqM) Est GFR (CKD-EPI)NonAf 86 (>60 ml/min/1.73 sqM) Glucose 108 H (74-99) mg/dL Plasma Lactic Acid Frank 1.1 (0.7-2.0) mmol/L Calcium 9.5 (8.4-10.2) mg/dL Total Bilirubin 0.6 (0.2-1.3) mg/dL AST 21 (14-36) U/L ALT 30 (9-52) U/L Alkaline Phosphatase 133 H (38-126) U/L Total Protein 6.6 (6.3-8.2) g/dL Albumin 3.6 (3.5-5.0) g/dL Disposition Clinical Impression: SIRS (systemic inflammatory response syndrome) Disposition: OTHER INSTITUTION NOT DEFINED Condition: Fair Referrals: Karthikeyan Pedro MD [Primary Care Provider] - 1-2 days Time of Disposition: 15:12 - Out of Hospital Transfer - Req. Specs Out of Hospital Transfer - Requested Specifics: Other Emergency Center ( [facility]
[2018-02-02] MEDS ORDERED: ACETAMINOPHEN IV (For NPO) 1,000 MG in EMPTY BAG 1 BAG IVPB ONE (13:45)
[2018-02-02] MEDS ORDERED: LEVOFLOXACIN 750MG-D5W PMX 750 MG in DEXTROSE/WATER 1 150ML.BAG IVPB STA (14:03)
[2018-02-02 14:04] LABS: Anisocytosis Slight; Basophils % (A) 0 %; Eosinophils % (A) 0 %; HGB 13.2 gm/dL (11.4-16.0); Lymphocytes # (A) 0.6 k/uL (1.0-4.8); Lymphocytes % (A) 7 %; MCH 26.6 pg (25.0-35.0); MCV 80.5 fL (80.0-100.0); Mean Platelet Volume 6.6; Microcytosis Slight; Monocytes # (A) 0.2 k/uL (0-1.0); Monocytes % (A) 3 %; Neutrophils # (A) 7.8 k/uL (1.3-7.7); Neutrophils % (A) 90 %; Platelet Count 271 k/uL (150-450); RBC 4.96 m/uL (3.80-5.40); RDW 17.2 % (11.5-15.5); WBC 8.6 k/uL (3.8-10.6)
[2018-02-02 14:15] LABS: ALT 30 U/L (9-52); AST 21 U/L (14-36); Albumin 3.6 g/dL (3.5-5.0); Alkaline Phosphatase 133 U/L (38-126); Anion Gap 9 mmol/L; Blood Urea Nitrogen 11 mg/dL (7-17); Calcium 9.5 mg/dL (8.4-10.2); Carbon Dioxide 16 mmol/L (22-30); Chloride 115 mmol/L (98-107); Glucose 108 mg/dL (74-99); Potassium 3.4 mmol/L (3.5-5.1); Sodium 140 mmol/L (137-145); Total Bilirubin 0.6 mg/dL (0.2-1.3); Total Protein 6.6 g/dL (6.3-8.2)
[2018-02-02 14:22] VITALS: RESP 18
--- NOTE | 2018-02-02 14:33 | XR ---
EXAMINATION TYPE: XR chest 2V DATE OF EXAM: 02/02/2018 COMPARISON: 01/11/2018 TECHNIQUE: PA and lateral views submitted. HISTORY: Fever FINDINGS: The lungs are clear and there is no pneumothorax, pleural effusion, or focal pneumonia. Left-sided central line noted with the tip overlying the SVC. No overt failure. IMPRESSION: 1. No acute process.
[2018-02-02] MEDS ORDERED: PROMETHAZINE INJ 25 MG in SODIUM CHLORIDE 0.9% 50 ML IVPB STA (14:59)
[2018-02-02 15:42] LABS: Appearance,Urine Clear (Clear); Bilirubin,Urine Negative (Negative); Blood,Urine Negative (Negative); Color,Urine Yellow; Glucose,Urine (UA) Negative (Negative); Ketones,Urine 1+ (Negative); Leukocyte Esterase,Urine Negative (Negative); Nitrite,Urine Negative (Negative); PH, Urine 5.5 (5.0-8.0); Protein,Urine Negative (Negative); Specific Gravity,Urine 1.014 (1.001-1.035); Urobilinogen,Urine <2.0 mg/dL (<2.0)
[2018-02-02 16:17] VITALS: BP 111/68; PULSE 95; TEMP 99.1
[2018-02-02] MEDS ORDERED: HYDROmorphone 1 MG/ML 1 ML SYRINGE IVP STA (16:25)
== END 2018-02-02 16:36 | disposition other institution (70) ==
LOC: EC 12:58
DX: R65.10 Systemic inflammatory response syndrome (SIRS) of non-infectious origin without acute organ dysfunction (principal); K21.9 Gastro-esophageal reflux disease without esophagitis; E03.9 Hypothyroidism, unspecified; G43.909 Migraine, unspecified, not intractable, without status migrainosus; Z95.818 Presence of other cardiac implants and grafts; Z96.89 Presence of other specified functional implants; Z79.01 Long term (current) use of anticoagulants; Z79.899 Other long term (current) drug therapy; Z88.8 Allergy status to other drugs, medicaments and biological substances; Z53.20 Procedure and treatment not carried out because of patient's decision for unspecified reasons
CPT/HCPCS: 36415; 80053; 83605; 85025; 81003; 81025; 87040; 87086; 87502; 71046; 99285; 96365; 96367; 96368; 96375 ×2; J2270; J2550; J1170; J1956; J0131

== ENCOUNTER → 2018-02-28 | Outpatient (CLI) | payer BC ==
[2018-02-28 14:26] LABS: Basophils # (A) 0.1 k/uL (0-0.2); Basophils % (A) 1 %; Eosinophils # (A) 0.3 k/uL (0-0.7); Eosinophils % (A) 4 %; HCT 38.7 % (34.0-46.0); HGB 12.9 gm/dL (11.4-16.0); Lymphocytes % (A) 26 %; MCH 27.3 pg (25.0-35.0); MCHC 33.4 g/dL (31.0-37.0); MCV 81.7 fL (80.0-100.0); Mean Platelet Volume 6.8; Monocytes # (A) 0.3 k/uL (0-1.0); Monocytes % (A) 4 %; Neutrophils # (A) 4.7 k/uL (1.3-7.7); Neutrophils % (A) 62 %; Platelet Count 323 k/uL (150-450); RBC 4.75 m/uL (3.80-5.40); RDW 14.4 % (11.5-15.5); WBC 7.6 k/uL (3.8-10.6)
[2018-02-28 18:58] LABS: Albumin 4.4 g/dL (3.80-4.90); Albumin/Globulin Ratio 2.1 (1.20-2.10); Anion Gap 7.8 mmol/L (4.00-12.00); Calcium 9.5 mg/dL (8.7-10.3); Carbon Dioxide 23.2 mmol/L (21.6-31.8); Globulin 2.1 g/dL (2.1-3.7); Phosphorus 4.3 mg/dL (2.4-5.1); Potassium 4.3 mmol/L (3.5-5.5); Total Bilirubin 0.2 mg/dL (0.3-1.2); Total Protein 6.5 g/dL (6.2-8.2)
== END ==
LOC: LABWHC1 12:27
PROVIDERS: ATTEND Internal Medicine
DX: K31.84 Gastroparesis (principal); R78.81 Bacteremia
CPT/HCPCS: 36415; 80053; 83735; 84100; 84134; 84478; 85025; 87040

== ENCOUNTER 2018-03-10 15:06 | Emergency (ER) | payer BC ==
[2018-03-10 15:12] VITALS: TEMP 99
[2018-03-10] MEDS ORDERED: SODIUM CHLORIDE 0.9% 1,000 ML IV STA (15:33)
[2018-03-10] MEDS ORDERED: HYDROmorphone 1 MG/ML 1 ML SYRINGE IVP STA ×2 (15:33→19:13)
[2018-03-10] MEDS ORDERED: PROMETHAZINE INJ 25 MG in SODIUM CHLORIDE 0.9% 50 ML IVPB STA (15:35)
[2018-03-10] MEDS ORDERED: IOPAMIDOL-300 CONTRAST 30 ML VIAL (ORAL USE) PO PRN (15:47)
[2018-03-10 16:15] LABS: Appearance,Urine Clear (Clear); Bilirubin,Urine Negative (Negative); Blood,Urine Negative (Negative); Color,Urine Yellow; Glucose,Urine (UA) Negative (Negative); Ketones,Urine Negative (Negative); Leukocyte Esterase,Urine Negative (Negative); Nitrite,Urine Negative (Negative); PH, Urine 6.5 (5.0-8.0); Protein,Urine Trace (Negative); Specific Gravity,Urine 1.021 (1.001-1.035); Urobilinogen,Urine <2.0 mg/dL (<2.0)
--- NOTE | 2018-03-10 16:34 | ED ---
General Adult HPI - General Chief complaint: Nausea/Vomiting/Diarrhea Stated complaint: Vomiting/abd.pain Time Seen by Provider: 03/10/18 15:14 Source: patient, RN notes reviewed Mode of arrival: ambulatory Limitations: no limitations - History of Present Illness Initial comments: Patient 37-year-old female status post pre-aural endoscopic pyloromyotomy 2 weeks, presenting to the emergency room today with a chief complaint of symptoms of nausea vomiting abdominal pain that began early this morning approximately 3 AM. Patient states that she has a history of gastroparesis and was the reason for this procedure. She states she was doing well until approximately 3 AM began having increased nausea vomiting and difficult time keeping anything down. She does admit that her son has had similar symptoms at home with nausea and vomiting. She does admit to some abdominal pain but believes it is just from the vomiting. She states it's worse in the upper part of the abdomen. She denies any other complaints or symptoms at this time. Patient denies any recent fever, chills, shortness of breath, chest pain, back pain, numbness or tingling, dysuria or hematuria, constipation or diarrhea, headaches or visual changes, or any other complaints. - Related Data Home Medications Medication Instructions Recorded Confirmed Web Designer Thyroid 90mcg 90 mcg PO DAILY 05/01/17 03/10/18 Apixaban [Eliquis] 5 mg PO BID 02/02/18 03/10/18 Lansoprazole [Prevacid] 30 mg PO BID 02/02/18 03/10/18 Montelukast Chew [Singulair Chew] 10 mg PO DAILY 02/02/18 03/10/18 Linaclotide [Linzess] 290 mcg PO DAILY 03/10/18 03/10/18 Topiramate 50 mg PO BID 03/10/18 03/10/18 Allergies Allergy/AdvReac Type Severity Reaction Status Date / Time metoclopramide [From Reglan] Allergy jittery Verified 03/10/18 15:21 Review of Systems ROS Statement: Those systems with pertinent positive or pertinent negative responses have been documented in the HPI. ROS Other: All systems not noted in ROS Statement are negative. Past Medical History Past Medical History: GERD/Reflux, Thyroid Disorder Additional Past Medical History / Comment(s): Idiopathic gastroparesis, recent admission to [facility] for concerns for bacteremia (has Picc line) but pt states this was ruled out and has new picc line on 05/25/2017, pt received TPN and has a J tube for tube feedings-states she takes very little in orally, pancreatitis, hypothyroid, chronic anemia, sinus problems, recently admitted with headache which pt states was her first migraine. 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 Pyloric surgery. Past Anesthesia/Blood Transfusion Reactions: No Reported Reaction Past Psychological History: Depression Smoking Status: Never smoker Past Alcohol Use History: None Reported Past Drug Use History: None Reported - Past Family History Father Family Medical History: Hypertension Additional Family Medical History / Comment(s): DAD IS 55 AND IN [facility] Mother Additional Family Medical History / Comment(s): MOM IS 55 AND IN [facility] General Exam - General Exam Comments Initial Comments: General: The patient is awake and alert, in no distress, and does not appear acutely ill. Eye: There is normal conjunctiva bilaterally. No signs of icterus. Ears, nose, mouth and throat: There are moist mucous membranes and no oral lesions. Neck: The neck is supple, there is no tenderness or JVD. Cardiovascular: There is a regular rate and rhythm. No murmur, rub or gallop is appreciated. Respiratory: Lungs are clear to auscultation, respirations are non-labored, breath sounds are equal. No wheezes, stridor, rales, or rhonchi. Gastrointestinal: Abdomen soft on palpation. Patient does have tenderness epigastric and upper quadrants. No rebound, guarding or CVA tenderness. Musculoskeletal: Normal ROM, no tenderness. Strength 5/5. Sensation intact. Pulses equal bilaterally 2+. Neurological: A&O x 3. CN II-XII intact, There are no obvious motor or sensory deficits. Coordination appears grossly intact. Speech is normal. Skin: Skin is warm and dry and no rashes or lesions are noted. Psychiatric: Cooperative, appropriate mood & affect, normal judgment. Limitations: no limitations Course Vital Signs 12/07/18 15:10 Temperature 99 F Pulse Rate 121 H Respiratory 20 Rate Blood Pressure 128/84 O2 Sat by Pulse 99 Oximetry Medical Decision Making - Medical Decision Making CT the abdomen and pelvis reviewed shows jejunostomy tube. To be within the abdomen removed from an old exam. There is clearing of fat stranding and postsurgical changes in the anterior abdominal wall. An old exam. There is small fat-containing broad-based umbilical hernia unchanged no sign of acute abdomen or pelvis as read by the radiologist. Patient's labs been reviewed unremarkable. No elevated white count. She is resting comfortably in the stretcher. Her abdomen is soft on palpation. Patient states she's feeling much better after medications. She states she does have pain medicine and nausea medicine at home that she can use. At this time patient will be discharged to follow-up with her surgeon. Advised return if any symptoms increase or worsen. - Lab Data Result diagrams: 03/10/18 18:07 03/10/18 18:07 Lab Results 03/10/18 03/10/18 03/10/18 Range/Units 16:02 16:02 18:07 WBC 8.5 (3.8-10.6) k/uL RBC 5.11 (3.80-5.40) m/uL Hgb 13.2 (11.4-16.0) gm/dL Hct 42.5 (34.0-46.0) % MCV 83.0 (80.0-100.0) fL MCH 25.8 (25.0-35.0) pg MCHC 31.1 (31.0-37.0) g/dL RDW 14.7 (11.5-15.5) % Plt Count 285 (150-450) k/uL Neutrophils % 83 % Lymphocytes % 12 % Monocytes % 4 % Eosinophils % 0 % Basophils % 0 % Neutrophils # 7.1 (1.3-7.7) k/uL Lymphocytes # 1.0 (1.0-4.8) k/uL Monocytes # 0.3 (0-1.0) k/uL Eosinophils # 0.0 (0-0.7) k/uL Basophils # 0.0 (0-0.2) k/uL Sodium (137-145) mmol/L Potassium (3.5-5.1) mmol/L Chloride (98-107) mmol/L Carbon Dioxide (22-30) mmol/L Anion Gap mmol/L BUN (7-17) mg/dL Creatinine (0.52-1.04) mg/dL Est GFR (CKD-EPI)AfAm (>60 ml/min/1.73 sqM) Est GFR (CKD-EPI)NonAf (>60 ml/min/1.73 sqM) Glucose (74-99) mg/dL Calcium (8.4-10.2) mg/dL Total Bilirubin (0.2-1.3) mg/dL AST (14-36) U/L ALT (9-52) U/L Alkaline Phosphatase (38-126) U/L Total Protein (6.3-8.2) g/dL Albumin (3.5-5.0) g/dL Amylase (30-110) U/L Lipase (23-300) U/L Urine Color Yellow Urine Appearance Clear (Clear) Urine pH 6.5 (5.0-8.0) Ur Specific Morrison 1.021 (1.001-1.035) Urine Protein Trace H (Negative) Urine Glucose (UA) Negative (Negative) Urine Ketones Negative (Negative) Urine Blood Negative (Negative) Urine Nitrite Negative (Negative) Urine Bilirubin Negative (Negative) Urine Urobilinogen <2.0 (<2.0) mg/dL Ur Leukocyte Esterase Negative (Negative) Urine HCG, Qual Not Detected (Not Detectd) 03/10/18 Range/Units 18:07 WBC (3.8-10.6) k/uL RBC (3.80-5.40) m/uL Hgb (11.4-16.0) gm/dL Hct (34.0-46.0) % MCV (80.0-100.0) fL MCH (25.0-35.0) pg MCHC (31.0-37.0) g/dL RDW (11.5-15.5) % Plt Count (150-450) k/uL Neutrophils % % Lymphocytes % % Monocytes % % Eosinophils % % Basophils % % Neutrophils # (1.3-7.7) k/uL Lymphocytes # (1.0-4.8) k/uL Monocytes # (0-1.0) k/uL Eosinophils # (0-0.7) k/uL Basophils # (0-0.2) k/uL Sodium 140 (137-145) mmol/L Potassium 3.9 (3.5-5.1) mmol/L Chloride 108 H (98-107) mmol/L Carbon Dioxide 20 L (22-30) mmol/L Anion Gap 12 mmol/L BUN 16 (7-17) mg/dL Creatinine 0.95 (0.52-1.04) mg/dL Est GFR (CKD-EPI)AfAm >90 (>60 ml/min/1.73 sqM) Est GFR (CKD-EPI)NonAf 78 (>60 ml/min/1.73 sqM) Glucose 81 (74-99) mg/dL Calcium 9.7 (8.4-10.2) mg/dL Total Bilirubin 0.4 (0.2-1.3) mg/dL AST 15 (14-36) U/L ALT 20 (9-52) U/L Alkaline Phosphatase 118 (38-126) U/L Total Protein 7.2 (6.3-8.2) g/dL Albumin 4.3 (3.5-5.0) g/dL Amylase 70 (30-110) U/L Lipase 50 (23-300) U/L Urine Color Urine Appearance (Clear) Urine pH (5.0-8.0) Ur Specific Morrison (1.001-1.035) Urine Protein (Negative) Urine Glucose (UA) (Negative) Urine Ketones (Negative) Urine Blood (Negative) Urine Nitrite (Negative) Urine Bilirubin (Negative) Urine Urobilinogen (<2.0) mg/dL Ur Leukocyte Esterase (Negative) Urine HCG, Qual (Not Detectd) Disposition Clinical Impression: Nausea & vomiting Disposition: HOME SELF-CARE Condition: Good Instructions: Acute Nausea and Vomiting (ED) Additional Instructions: Please use medication as discussed. Please follow-up with surgeon/family doctor in the next 2 days. Please return to emergency room if the symptoms increase or worsen or for any other concerns. Is patient prescribed a controlled substance at d/c from ED?: No Referrals: Karthikeyan Pedro MD [Primary Care Provider] - 1-2 days Time of Disposition: 19:09
[2018-03-10 18:23] LABS: Basophils % (A) 0 %; Eosinophils % (A) 0 %; HCT 42.5 % (34.0-46.0); HGB 13.2 gm/dL (11.4-16.0); Lymphocytes % (A) 12 %; MCH 25.8 pg (25.0-35.0); MCHC 31.1 g/dL (31.0-37.0); Mean Platelet Volume 6.4; Monocytes # (A) 0.3 k/uL (0-1.0); Monocytes % (A) 4 %; Neutrophils # (A) 7.1 k/uL (1.3-7.7); Neutrophils % (A) 83 %; Platelet Count 285 k/uL (150-450); RBC 5.11 m/uL (3.80-5.40); RDW 14.7 % (11.5-15.5); WBC 8.5 k/uL (3.8-10.6)
[2018-03-10 18:33] LABS: Potassium 3.9 mmol/L (3.5-5.1)
[2018-03-10 18:34] LABS: ALT 20 U/L (9-52); AST 15 U/L (14-36); Albumin 4.3 g/dL (3.5-5.0); Alkaline Phosphatase 118 U/L (38-126); Amylase 70 U/L (30-110); Anion Gap 12 mmol/L; Blood Urea Nitrogen 16 mg/dL (7-17); Calcium 9.7 mg/dL (8.4-10.2); Carbon Dioxide 20 mmol/L (22-30); Chloride 108 mmol/L (98-107); Glucose 81 mg/dL (74-99); Lipase 50 U/L (23-300); Sodium 140 mmol/L (137-145); Total Bilirubin 0.4 mg/dL (0.2-1.3); Total Protein 7.2 g/dL (6.3-8.2)
--- NOTE | 2018-03-10 18:53 | CT ---
EXAMINATION TYPE: CT abdomen pelvis w con DATE OF EXAM: 03/10/2018 COMPARISON: 02/09/2017 HISTORY: Abdominal pain and vomiting CT DLP: 1263.8 mGycm Automated exposure control for dose reduction was used. TECHNIQUE: Helical acquisition of images was performed from the lung bases through the pelvis. CONTRAST: Performed without Oral Contrast and with IV Contrast, patient injected with 100 mL of Isovue 300. FINDINGS: Lung bases are clear of consolidation. There is no pleural effusion. Heart size is normal. Liver sple en pancreas appear normal. There are clips from cholecystectomy. Bile ducts are not dilated. There is no adrenal mass. Kidneys show satisfactory contrast opacification. There is no hydronephrosis. There is ileostomy tube noted. There is no evidence of a bowel obstruction. There is no sign of free air. Bladder distends smoothly. There is IUD noted in the uterus. There is no inguinal hernia. There is no free fluid in the pelvis. The appendix appears normal. Lumbar vertebra have normal spacing and alignment. The posterior elements are intact. Bony pelvis is intact. IMPRESSION: THERE IS JEJUNOSTOMY TUBE NOTED. TUBING WITHIN THE ABDOMEN IS REMOVED COMPARED TO OLD EXAM. THERE IS CLEARING OF THE FAT STRANDING AND POSTSURGICAL CHANGES ON THE ANTERIOR ABDOMINAL WALL COMPARED TO OLD EXAM. THERE IS SMALL FAT-CONTAINING BROAD-BASED UMBILICAL HERNIA UNCHANGED. NO SIGN OF ACUTE ABDOMEN AND PELVIS.
[2018-03-10 20:08] VITALS: BP 130/78; PULSE 90; RESP 18
== END 2018-03-10 20:00 | disposition home or self-care (01) ==
LOC: EC 15:06
DX: R11.2 Nausea with vomiting, unspecified (principal); R10.13 Epigastric pain; R10.11 Right upper quadrant pain; R10.31 Right lower quadrant pain; E03.9 Hypothyroidism, unspecified; G43.909 Migraine, unspecified, not intractable, without status migrainosus; Z79.01 Long term (current) use of anticoagulants; Z79.899 Other long term (current) drug therapy; Z88.8 Allergy status to other drugs, medicaments and biological substances; Z90.49 Acquired absence of other specified parts of digestive tract; Z93.4 Other artificial openings of gastrointestinal tract status
CPT/HCPCS: 36415; 80053; 82150; 83690; 85025; 81003; 81025; 87040; 74177; 99284; 96365; 96375; 96376; 96361 ×3; J2550; J1170; Q9967

== ENCOUNTER 2018-03-12 01:08 | Emergency (ER) | payer BC ==
[2018-03-12] MEDS ORDERED: ACETAMINOPHEN IV (For NPO) 1,000 MG in EMPTY BAG 1 BAG IVPB STA (01:26)
[2018-03-12] MEDS ORDERED: AZITHROMYCIN 500 MG TAB PO STA (01:31)
[2018-03-12 02:07] LABS: Basophils % (A) 0 %; Eosinophils % (A) 0 %; HCT 35.8 % (34.0-46.0); Lymphocytes # (A) 0.6 k/uL (1.0-4.8); Lymphocytes % (A) 6 %; MCH 26.9 pg (25.0-35.0); MCHC 33.5 g/dL (31.0-37.0); MCV 80.2 fL (80.0-100.0); Mean Platelet Volume 6.9; Monocytes # (A) 0.2 k/uL (0-1.0); Monocytes % (A) 2 %; Neutrophils # (A) 8.4 k/uL (1.3-7.7); Neutrophils % (A) 91 %; Platelet Count 224 k/uL (150-450); RBC 4.46 m/uL (3.80-5.40); RDW 14.9 % (11.5-15.5); WBC 9.2 k/uL (3.8-10.6)
[2018-03-12] MEDS ORDERED: PROMETHAZINE INJ 25 MG in SODIUM CHLORIDE 0.9% 50 ML IVPB STA (02:12)
[2018-03-12] MEDS ORDERED: HYDROmorphone 1 MG/ML 1 ML SYRINGE IVP STA ×2 (02:12→04:07)
[2018-03-12 02:16] LABS: INR 1.1 (<1.2); Prothrombin Time 11.6 sec (9.0-12.0)
[2018-03-12 02:17] LABS: Albumin 3.4 g/dL (3.5-5.0); Potassium 3.1 mmol/L (3.5-5.1); Total Bilirubin 0.2 mg/dL (0.2-1.3); Total Protein 6.2 g/dL (6.3-8.2)
[2018-03-12] MEDS: SODIUM CHLORIDE 0.9% 500 ML 500 ML IV SCH ×2 (02:21→02:42)
[2018-03-12 02:24] LABS: Appearance,Urine Cloudy (Clear); Bilirubin,Urine Negative (Negative); Blood,Urine Moderate (Negative); Color,Urine Yellow; Glucose,Urine (UA) Negative (Negative); Ketones,Urine 1+ (Negative); Leukocyte Esterase,Urine Trace (Negative); Mucus,Urine Few /hpf; Nitrite,Urine Negative (Negative); PH, Urine 6.5 (5.0-8.0); Protein,Urine 1+ (Negative); RBC,Urine 1 /hpf (0-5); Squamous Epithelial Cell,Urine 7 /hpf (0-4); Urobilinogen,Urine <2.0 mg/dL (<2.0); WBC,Urine 4 /hpf (0-5)
--- NOTE | 2018-03-12 02:37 | XR ---
EXAMINATION TYPE: XR chest 2V DATE OF EXAM: 03/12/2018 COMPARISON: 02/02/2018 HISTORY: Fever TECHNIQUE: Frontal and lateral views of the chest are obtained. FINDINGS: Heart and mediastinum are normal. Lungs are clear. Diaphragm is normal. There are chest le ads. There is a catheter over the left side of the chest. The tip appears to be in the superior vena cava. IMPRESSION: No cardiopulmonary disease. No change.
[2018-03-12] MEDS ORDERED: DEXTROSE 5%-0.45% NACL 1,000 ML IV ONE (02:41)
[2018-03-12] MEDS ORDERED: VANCOMYCIN 1,500 MG in SODIUM CHLORIDE 0.9% 250 ML IVPB ONE (02:44)
[2018-03-12] MEDS ORDERED: SODIUM CHLORIDE 0.9% 1,000 ML IV ONE (02:49)
[2018-03-12] MEDS ORDERED: diphenhydrAMINE 50 MG/ML 1 ML VIAL IVP STA (03:18)
--- NOTE | 2018-03-12 03:19 | ED ---
General Adult HPI - General Chief complaint: Fever Stated complaint: High Fever Time Seen by Provider: 03/12/18 01:25 Source: patient, RN notes reviewed, old records reviewed Mode of arrival: ambulatory Limitations: no limitations - History of Present Illness Initial comments: 37-year-old female presents for evaluation of fever. Patient has complicated past medical history including gastroparesis, she is currently on TPN through a Butcher catheter. She has a J-tube which she has not been using recently. Patient denies dysuria. She does complain of abdominal pain which is unchanged over the past several days. She was seen in this emergency department 2 days prior with vomiting and abdominal pain. She did receive computed tomography scan at that time. Patient denies cough or URI symptoms. - Related Data Home Medications Medication Instructions Recorded Confirmed Podiatric Assistant Thyroid 90mcg 90 mcg PO DAILY 05/01/17 03/10/18 Apixaban [Eliquis] 5 mg PO BID 02/02/18 03/10/18 Lansoprazole [Prevacid] 30 mg PO BID 02/02/18 03/10/18 Montelukast Chew [Singulair Chew] 10 mg PO DAILY 02/02/18 03/10/18 Linaclotide [Linzess] 290 mcg PO DAILY 03/10/18 03/10/18 Topiramate 50 mg PO BID 03/10/18 03/10/18 Allergies Allergy/AdvReac Type Severity Reaction Status Date / Time metoclopramide [From Reglan] Allergy jittery Verified 03/12/18 01:16 Review of Systems ROS Statement: Those systems with pertinent positive or pertinent negative responses have been documented in the HPI. ROS Other: All systems not noted in ROS Statement are negative. Past Medical History Past Medical History: GERD/Reflux, Thyroid Disorder Additional Past Medical History / Comment(s): Idiopathic gastroparesis, recent admission to [facility] for concerns for bacteremia (has Picc line) but pt states this was ruled out and has new picc line on 05/25/2017, pt received TPN and has a J tube for tube feedings-states she takes very little in orally, pancreatitis, hypothyroid, chronic anemia, sinus problems, recently admitted with headache which pt states was her first migraine. 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 Pyloric surgery. Past Anesthesia/Blood Transfusion Reactions: No Reported Reaction Past Psychological History: Depression Smoking Status: Never smoker Past Alcohol Use History: None Reported Past Drug Use History: None Reported - Past Family History Father Family Medical History: Hypertension Additional Family Medical History / Comment(s): DAD IS 55 AND IN [facility] Mother Additional Family Medical History / Comment(s): MOM IS 55 AND IN [facility] General Exam Limitations: no limitations General appearance: alert, in distress Head exam: Present: atraumatic, normocephalic Eye exam: Present: normal appearance, PERRL, EOMI ENT exam: Present: mucous membranes dry Neck exam: Present: normal inspection, full ROM. Absent: tenderness, meningismus Respiratory exam: Present: normal lung sounds bilaterally, other (Butcher catheter, no significant induration or purulence at the site). Absent: respiratory distress, wheezes Cardiovascular Exam: Present: normal rhythm, tachycardia GI/Abdominal exam: Present: soft, tenderness (Epigastric tenderness to palpation ), other (Mild erythema around the J-tube site). Absent: distended, guarding, rebound Extremities exam: Present: normal inspection, normal capillary refill. Absent: pedal edema Neurological exam: Present: alert, oriented X3, CN II-XII intact. Absent: motor sensory deficit Skin exam: Present: warm, intact, diaphoretic. Absent: cyanosis Course Vital Signs 03/12/18 03/12/18 03/12/18 01:12 02:15 02:40 Temperature 102.8 F H Pulse Rate 145 H 112 H 102 H Respiratory 20 20 20 Rate Blood Pressure 117/67 116/60 116/60 O2 Sat by Pulse 98 97 97 Oximetry EKG Findings - EKG Comments: EKG Findings:: EKG: Sinus tachycardia, rate of 129, MO interval 132, QRS duration 80, QTc 416 Medical Decision Making - Medical Decision Making 37-year-old female presenting with fever and tachycardia. Patient's has presentation concerning for sepsis. Chest x-rays obtained, negative for focal pneumonia, urinalysis negative for urinary tract infection. Blood cultures are obtained both from a peripheral site and from her central catheter. Patient has normal white blood cell count however there is left shift. She has mild lactic acid of 2.2. She receives IV hydration, pain control, antiemetics, ceftriaxone and vancomycin. Given her presentation, there is concern for bacteremia as the source of her sepsis. Patient has a complicated past medical history and will be transferred for higher level of care, she follows at [facility] infiltrate. Accepting physician Dr. Godfrey. - Lab Data Result diagrams: 03/12/18 01:51 03/12/18 01:51 Lab Results 03/12/18 03/12/18 03/12/18 Range/Units 01:44 01:51 01:51 WBC 9.2 (3.8-10.6) k/uL RBC 4.46 (3.80-5.40) m/uL Hgb 12.0 (11.4-16.0) gm/dL Hct 35.8 (34.0-46.0) % MCV 80.2 (80.0-100.0) fL MCH 26.9 (25.0-35.0) pg MCHC 33.5 (31.0-37.0) g/dL RDW 14.9 (11.5-15.5) % Plt Count 224 (150-450) k/uL Neutrophils % 91 % Lymphocytes % 6 % Monocytes % 2 % Eosinophils % 0 % Basophils % 0 % Neutrophils # 8.4 H (1.3-7.7) k/uL Lymphocytes # 0.6 L (1.0-4.8) k/uL Monocytes # 0.2 (0-1.0) k/uL Eosinophils # 0.0 (0-0.7) k/uL Basophils # 0.0 (0-0.2) k/uL PT (9.0-12.0) sec INR (<1.2) APTT (22.0-30.0) sec Sodium 139 (137-145) mmol/L Potassium 3.1 L (3.5-5.1) mmol/L Chloride 110 H (98-107) mmol/L Carbon Dioxide 19 L (22-30) mmol/L Anion Gap 10 mmol/L BUN 17 (7-17) mg/dL Creatinine 1.06 H (0.52-1.04) mg/dL Est GFR (CKD-EPI)AfAm 79 (>60 ml/min/1.73 sqM) Est GFR (CKD-EPI)NonAf 68 (>60 ml/min/1.73 sqM) Glucose 122 H (74-99) mg/dL Plasma Lactic Acid Frank (0.7-2.0) mmol/L Calcium 9.0 (8.4-10.2) mg/dL Total Bilirubin 0.2 (0.2-1.3) mg/dL AST 22 (14-36) U/L ALT 27 (9-52) U/L Alkaline Phosphatase 97 (38-126) U/L Total Protein 6.2 L (6.3-8.2) g/dL Albumin 3.4 L (3.5-5.0) g/dL Urine Color Urine Appearance (Clear) Urine pH (5.0-8.0) Ur Specific Crowell (1.001-1.035) Urine Protein (Negative) Urine Glucose (UA) (Negative) Urine Ketones (Negative) Urine Blood (Negative) Urine Nitrite (Negative) Urine Bilirubin (Negative) Urine Urobilinogen (<2.0) mg/dL Ur Leukocyte Esterase (Negative) Urine RBC (0-5) /hpf Urine WBC (0-5) /hpf Ur Squamous Epith Cells (0-4) /hpf Urine Mucus (None) /hpf Influenza Type A RNA Not Detected (Not Detectd) Influenza Type B (PCR) Not Detected (Not Detectd) 03/12/18 03/12/18 03/12/18 Range/Units 01:51 01:51 02:11 WBC (3.8-10.6) k/uL RBC (3.80-5.40) m/uL Hgb (11.4-16.0) gm/dL Hct (34.0-46.0) % MCV (80.0-100.0) fL MCH (25.0-35.0) pg MCHC (31.0-37.0) g/dL RDW (11.5-15.5) % Plt Count (150-450) k/uL Neutrophils % % Lymphocytes % % Monocytes % % Eosinophils % % Basophils % % Neutrophils # (1.3-7.7) k/uL Lymphocytes # (1.0-4.8) k/uL Monocytes # (0-1.0) k/uL Eosinophils # (0-0.7) k/uL Basophils # (0-0.2) k/uL PT 11.6 (9.0-12.0) sec INR 1.1 (<1.2) APTT 27.0 (22.0-30.0) sec Sodium (137-145) mmol/L Potassium (3.5-5.1) mmol/L Chloride (98-107) mmol/L Carbon Dioxide (22-30) mmol/L Anion Gap mmol/L BUN (7-17) mg/dL Creatinine (0.52-1.04) mg/dL Est GFR (CKD-EPI)AfAm (>60 ml/min/1.73 sqM) Est GFR (CKD-EPI)NonAf (>60 ml/min/1.73 sqM) Glucose (74-99) mg/dL Plasma Lactic Acid Frank 2.2 H* (0.7-2.0) mmol/L Calcium (8.4-10.2) mg/dL Total Bilirubin (0.2-1.3) mg/dL AST (14-36) U/L ALT (9-52) U/L Alkaline Phosphatase (38-126) U/L Total Protein (6.3-8.2) g/dL Albumin (3.5-5.0) g/dL Urine Color Yellow Urine Appearance Cloudy H (Clear) Urine pH 6.5 (5.0-8.0) Ur Specific Crowell 1.030 (1.001-1.035) Urine Protein 1+ H (Negative) Urine Glucose (UA) Negative (Negative) Urine Ketones 1+ H (Negative) Urine Blood Moderate H (Negative) Urine Nitrite Negative (Negative) Urine Bilirubin Negative (Negative) Urine Urobilinogen <2.0 (<2.0) mg/dL Ur Leukocyte Esterase Trace H (Negative) Urine RBC 1 (0-5) /hpf Urine WBC 4 (0-5) /hpf Ur Squamous Epith Cells 7 H (0-4) /hpf Urine Mucus Few H (None) /hpf Influenza Type A RNA (Not Detectd) Influenza Type B (PCR) (Not Detectd) Disposition Clinical Impression: Sepsis Disposition: OTHER INSTITUTION NOT DEFINED Condition: Serious Is patient prescribed a controlled substance at d/c from ED?: No Referrals: Karthikeyan Pedro MD [Primary Care Provider] - 1-2 days Time of Disposition: 03:10 - Out of Hospital Transfer - Req. Specs Out of Hospital Transfer - Requested Specifics: Other Emergency Center ( [place], [place])
[2018-03-12 03:27] VITALS: TEMP 99.8
[2018-03-12] MEDS ORDERED: POTASSIUM CHLORIDE 20 MEQ in WATER FOR INJECTION 1 100ML.BAG IVPB SCH (04:00)
[2018-03-12 04:14] VITALS: BP 96/54; PULSE 98; RESP 18
[2018-03-12] MEDS ORDERED: cefTRIAXone 2,000 MG in SODIUM CHLORIDE 0.9% 100 ML IVPB SCH (09:00)
== END 2018-03-12 04:19 | disposition short-term general hospital (02) ==
LOC: EC 01:08
DX: A41.9 Sepsis, unspecified organism (principal); R00.0 Tachycardia, unspecified; R10.9 Unspecified abdominal pain; K31.84 Gastroparesis; K21.9 Gastro-esophageal reflux disease without esophagitis; E03.9 Hypothyroidism, unspecified; Z88.8 Allergy status to other drugs, medicaments and biological substances; Z79.01 Long term (current) use of anticoagulants; Z79.899 Other long term (current) drug therapy; Z97.8 Presence of other specified devices; Z93.4 Other artificial openings of gastrointestinal tract status; Z86.69 Personal history of other diseases of the nervous system and sense organs; Z95.828 Presence of other vascular implants and grafts; Z90.49 Acquired absence of other specified parts of digestive tract; Z82.49 Family history of ischemic heart disease and other diseases of the circulatory system; Z53.8 Procedure and treatment not carried out for other reasons
CPT/HCPCS: 99285; 96365; 96367 ×2; 96368; 96375 ×2; 96376; 36415; 93005; 80053; 83605; 85025; 85610; 85730; 81001; 87040; 87086; 87502; 71046; J3370; J1200; J2550; J1170; J0131

== ENCOUNTER 2018-04-08 16:01 | Emergency (ER) | payer BC ==
--- NOTE | 2018-04-08 17:43 | ED ---
General Adult HPI - General Chief complaint: Recheck/Abnormal Lab/Rx Stated complaint: PICC line issues Time Seen by Provider: 04/08/18 17:09 Source: patient Mode of arrival: ambulatory Limitations: no limitations - History of Present Illness Initial comments: 38-year-old female patient with history of gastroparesis with new PICC line placement 2 weeks ago presents to the emergency department today for evaluation of localized irritation and pain at the PICC insertion site. Patient states whenever she uses her TPN organisms result of Phenergan the area becomes inflamed and painful. States that she has constant pain to the area but the redness comes on when she attempts to inject anything. She denies any fevers or chills with this. Denies any numbness or tingling to the arm. Denies any chest pain or shortness of breath. Patient also has a J-tube which she is able to use. 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 Patient denies any recent rash, abdominal pain, nausea, vomiting, diarrhea, constipation, back pain, numbness, tingling, dizziness, weakness, hematuria, dysuria, urinary urgency, urinary frequency, headache, visual changes , or any other complaints. - Related Data Home Medications Medication Instructions Recorded Confirmed Apixaban [Eliquis] 5 mg PO BID 02/02/18 04/08/18 Lansoprazole [Prevacid] 30 mg PO BID 02/02/18 04/08/18 Montelukast Chew [Singulair Chew] 10 mg PO DAILY 02/02/18 04/08/18 Linaclotide [Linzess] 290 mcg PO DAILY 03/10/18 04/08/18 Topiramate 50 mg PO BID 03/10/18 04/08/18 Thyroid,Pork [Spindle Setter Thyroid] 90 mg PO DAILY 04/08/18 04/08/18 Allergies Allergy/AdvReac Type Severity Reaction Status Date / Time metoclopramide [From Reglan] AdvReac jittery Verified 04/08/18 17:02 Review of Systems ROS Statement: Those systems with pertinent positive or pertinent negative responses have been documented in the HPI. ROS Other: All systems not noted in ROS Statement are negative. Past Medical History Past Medical History: GERD/Reflux, Thyroid Disorder Additional Past Medical History / Comment(s): Idiopathic gastroparesis, recent admission to [facility] for concerns for bacteremia (has Picc line) but pt states this was ruled out and has new picc line on 05/25/2017, pt received TPN and has a J tube for tube feedings-states she takes very little in orally, pancreatitis, hypothyroid, chronic anemia, sinus problems, recently admitted with headache which pt states was her first migraine. 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 Pyloric surgery. Past Anesthesia/Blood Transfusion Reactions: No Reported Reaction Past Psychological History: Depression Smoking Status: Never smoker Past Alcohol Use History: None Reported Past Drug Use History: None Reported - Past Family History Father Family Medical History: Hypertension Additional Family Medical History / Comment(s): DAD IS 55 AND IN [facility] Mother Additional Family Medical History / Comment(s): MOM IS 55 AND IN [facility] General Exam Limitations: no limitations General appearance: alert, in no apparent distress, other (This is a well- developed, well-nourished adult female patient in no acute distress. Vital signs upon presentation are temperature 98.4F, pulse 98, respirations 18, blood pressure 124/81, pulse ox 100% on room air.) Eye exam: Present: normal appearance, PERRL, EOMI. Absent: scleral icterus, conjunctival injection, periorbital swelling ENT exam: Present: normal exam, normal oropharynx, mucous membranes moist Respiratory exam: Present: normal lung sounds bilaterally. Absent: respiratory distress, wheezes, rales, rhonchi, stridor Cardiovascular Exam: Present: regular rate, normal rhythm, normal heart sounds. Absent: systolic murmur, diastolic murmur, rubs, gallop, clicks GI/Abdominal exam: Present: soft, normal bowel sounds. Absent: distended, tenderness, guarding, rebound, rigid Extremities exam: Present: normal inspection, full ROM, tenderness (Tenderness noted the PICC line insertion site), normal capillary refill, other (Skin to the right upper extremity is pink, warm, and dry. Cap refills less than 3 seconds. Radial pulses 2+ and equal bilaterally.). Absent: pedal edema, joint swelling, calf tenderness Neurological exam: Present: alert, oriented X3, CN II-XII intact Psychiatric exam: Present: normal affect, normal mood Skin exam: Present: warm, dry, intact, normal color. Absent: rash Course Vital Signs 04/08/18 16:21 Temperature 98.4 F Pulse Rate 98 Respiratory 18 Rate Blood Pressure 124/81 O2 Sat by Pulse 100 Oximetry Medical Decision Making - Medical Decision Making 38 year-old female patient presents to the emergency department today for evaluation of redness, irritation, and pain and her PICC line insertion site. Physical examination does reveal some tenderness to the area. There is no evidence of erythema or drainage at this time. Given patient's description of symptoms being that it becomes red, irritated and more painful during infusions and injections there is concerned that the PICC line is leaking causing extravasation. Given risk of infection we did discontinue the PICC line. RN was in and PICC line was removed. 36 cm of tubing was pulled. Line appeared to be intact. Patient is instructed to follow-up with her specialist at [facility] as soon as possible. She is to use her J-tube for nutrition at this time. Return parameters were discussed in detail. She verbalizes understanding and agrees with this plan. Disposition Clinical Impression: PICC line infiltration Disposition: HOME SELF-CARE Condition: Good Instructions: Peripherally Inserted Central Catheters and Midline Catheters (DC ) Additional Instructions: Follow up with your specialist for recheck as soon as possible. Return to the emergency department for any new, worsening, or concerning symptoms. Is patient prescribed a controlled substance at d/c from ED?: No Referrals: Karthikeyan Pedro MD [Primary Care Provider] - 1-2 days Time of Disposition: 17:43
[2018-04-08 18:42] VITALS: BP 137/87; PULSE 88; RESP 16; TEMP 98.3
== END 2018-04-08 18:40 | disposition home or self-care (01) ==
LOC: EC 16:01
DX: T82.898A Other specified complication of vascular prosthetic devices, implants and grafts, initial encounter (principal); T82.848A Pain due to vascular prosthetic devices, implants and grafts, initial encounter; Z93.4 Other artificial openings of gastrointestinal tract status; K21.9 Gastro-esophageal reflux disease without esophagitis; K31.84 Gastroparesis; E03.9 Hypothyroidism, unspecified; K58.0 Irritable bowel syndrome with diarrhea; Z88.8 Allergy status to other drugs, medicaments and biological substances; Z79.01 Long term (current) use of anticoagulants; Z79.899 Other long term (current) drug therapy; Z86.69 Personal history of other diseases of the nervous system and sense organs; Z87.09 Personal history of other diseases of the respiratory system; Z90.49 Acquired absence of other specified parts of digestive tract
CPT/HCPCS: 99282

== ENCOUNTER 2018-05-08 23:26 | Observation (INO) | payer BC ==
--- NOTE | 2018-05-09 02:27 | ED ---
General Adult HPI - General Source: patient, family Mode of arrival: ambulatory Limitations: no limitations - History of Present Illness -: days(s) Location: left, upper extremity Quality: burning Consistency: constant Improves with: cold therapy Worsens with: none Associated Symptoms: denies other symptoms <Maximino Boyd - Last Filed: 05/09/18 07:48> <Jian Vallejo - Last Filed: 05/09/18 07:59> - General Chief complaint: Skin/Abscess/Foreign Body Stated complaint: Pic line issue Time Seen by Provider: 05/09/18 01:31 - History of Present Illness Initial comments: This patient is a 38-year-old woman presenting with 2 main complaints. She states first one is that she is having right lower quadrant and right flank pain. The patient has a second complaint that she is having a burning type of pain in the left axilla near the insertion site for her PICC line. She states the PICC line was placed on April 10 nor that she receive TPN. (Maximino Boyd) - Related Data Home Medications Medication Instructions Recorded Confirmed Apixaban [Eliquis] 5 mg PO BID 02/02/18 04/08/18 Lansoprazole [Prevacid] 30 mg PO BID 02/02/18 04/08/18 Montelukast Chew [Singulair Chew] 10 mg PO DAILY 02/02/18 04/08/18 Linaclotide [Linzess] 290 mcg PO DAILY 03/10/18 04/08/18 Topiramate 50 mg PO BID 03/10/18 04/08/18 Thyroid,Pork [Freight Rate Specialist Thyroid] 90 mg PO DAILY 04/08/18 04/08/18 Allergies Allergy/AdvReac Type Severity Reaction Status Date / Time metoclopramide [From Reglan] AdvReac jittery Verified 05/08/18 23:43 Review of Systems ROS Other: All systems not noted in ROS Statement are negative. <Maximino Boyd - Last Filed: 05/09/18 07:48> ROS Other: All systems not noted in ROS Statement are negative. <Jian Vallejo - Last Filed: 05/09/18 07:59> ROS Statement: Those systems with pertinent positive or pertinent negative responses have been documented in the HPI. Past Medical History Past Medical History: GERD/Reflux, Thyroid Disorder Additional Past Medical History / Comment(s): Idiopathic gastroparesis, recent admission to [facility] for concerns for bacteremia (has Picc line) but pt states this was ruled out and has new picc line on 05/25/2017, pt received TPN and has a J tube for tube feedings-states she takes very little in orally, pancreatitis, hypothyroid, chronic anemia, sinus problems, recently admitted with headache which pt states was her first migraine. 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 Pyloric surgery. Past Anesthesia/Blood Transfusion Reactions: No Reported Reaction Past Psychological History: Depression Smoking Status: Never smoker Past Alcohol Use History: None Reported Past Drug Use History: None Reported - Past Family History Father Family Medical History: Hypertension Additional Family Medical History / Comment(s): DAD IS 55 AND IN [place] [facility] Mother Additional Family Medical History / Comment(s): MOM IS 55 AND IN [place] [facility] <JonnathanMaximino juárez - Last Filed: 05/09/18 07:48> General Exam Limitations: no limitations General appearance: alert, in no apparent distress Head exam: Present: atraumatic, normocephalic Eye exam: Present: normal appearance. Absent: scleral icterus, conjunctival injection ENT exam: Present: normal oropharynx Neck exam: Present: normal inspection Respiratory exam: Present: normal lung sounds bilaterally. Absent: respiratory distress, wheezes, rales, rhonchi, stridor Cardiovascular Exam: Present: regular rate, normal rhythm, normal heart sounds. Absent: systolic murmur, diastolic murmur, rubs, gallop GI/Abdominal exam: Present: soft. Absent: distended, tenderness, guarding, rebound, rigid, mass, pulsatile mass, hernia Extremities exam: Present: normal inspection, normal capillary refill, other ( Examination of the patient's left upper extremity reveals PICC line the medial aspect. There does not appear to be any evidence of infection, no erythema or warmth. There is however a small amount of tenderness proximal to the insertion site. Exam is otherwise normal.). Absent: pedal edema, calf tenderness Neurological exam: Present: alert Skin exam: Present: warm, dry, intact, normal color. Absent: rash <Maximino Boyd - Last Filed: 05/09/18 07:48> Course <Maximino Boyd - Last Filed: 05/09/18 07:48> <Jian Vallejo - Last Filed: 05/09/18 07:59> Vital Signs 05/08/18 05/09/18 05/09/18 23:41 02:58 04:28 Temperature 99 F Pulse Rate 91 80 74 Respiratory 20 19 18 Rate Blood Pressure 132/84 130/74 111/59 O2 Sat by Pulse 100 100 100 Oximetry 05/09/18 05/09/18 05:28 07:27 Temperature 98.8 F 98.3 F Pulse Rate 88 75 Respiratory 18 18 Rate Blood Pressure 127/80 119/74 O2 Sat by Pulse 97 99 Oximetry - Reevaluation(s) Reevaluation #1: 05/09/18 07:58 Re: Patient's abdominal pain, CT shows inflammatory changes consistent with enteritis, colitis. Patient is feeling somewhat better on reevaluation. ( Jian Vallejo) Medical Decision Making - Lab Data Result diagrams: 05/09/18 02:40 05/09/18 02:40 <Maximino Boyd - Last Filed: 05/09/18 07:48> - Lab Data Result diagrams: 05/09/18 02:40 05/09/18 02:40 <Jian Vallejo - Last Filed: 05/09/18 07:59> - Medical Decision Making 38-year-old female, acute medical history. Patient's care is signed out at shift change awaiting PICC line evaluation and replacement. Patient reevaluated , resting comfortably. No signs of infection at the PICC line site. She will be placed in observation awaiting this procedure. Case discussed with the admitting physician. (Jian Vallejo) - Lab Data Lab Results 05/09/18 05/09/18 05/09/18 Range/Units 02:10 02:30 02:40 WBC 11.3 H (3.8-10.6) k/uL RBC 5.16 (3.80-5.40) m/uL Hgb 12.9 (11.4-16.0) gm/dL Hct 40.7 (34.0-46.0) % MCV 79.0 L (80.0-100.0) fL MCH 25.0 (25.0-35.0) pg MCHC 31.6 (31.0-37.0) g/dL RDW 13.7 (11.5-15.5) % Plt Count 357 (150-450) k/uL Neutrophils % 62 % Lymphocytes % 27 % Monocytes % 6 % Eosinophils % 3 % Basophils % 1 % Neutrophils # 7.1 (1.3-7.7) k/uL Lymphocytes # 3.0 (1.0-4.8) k/uL Monocytes # 0.6 (0-1.0) k/uL Eosinophils # 0.3 (0-0.7) k/uL Basophils # 0.1 (0-0.2) k/uL Hypochromasia Slight Sodium (137-145) mmol/L Potassium (3.5-5.1) mmol/L Chloride (98-107) mmol/L Carbon Dioxide (22-30) mmol/L Anion Gap mmol/L BUN (7-17) mg/dL Creatinine (0.52-1.04) mg/dL Est GFR (CKD-EPI)AfAm (>60 ml/min/1.73 sqM) Est GFR (CKD-EPI)NonAf (>60 ml/min/1.73 sqM) Glucose (74-99) mg/dL Plasma Lactic Acid Frank 1.0 (0.7-2.0) mmol/L Calcium (8.4-10.2) mg/dL Total Bilirubin (0.2-1.3) mg/dL AST (14-36) U/L ALT (9-52) U/L Alkaline Phosphatase (38-126) U/L Total Protein (6.3-8.2) g/dL Albumin (3.5-5.0) g/dL Amylase 71 (30-110) U/L Lipase 64 (23-300) U/L Urine Color Urine Appearance (Clear) Urine pH (5.0-8.0) Ur Specific [place] (1.001-1.035) Urine Protein (Negative) Urine Glucose (UA) (Negative) Urine Ketones (Negative) Urine Blood (Negative) Urine Nitrite (Negative) Urine Bilirubin (Negative) Urine Urobilinogen (<2.0) mg/dL Ur Leukocyte Esterase (Negative) Urine RBC (0-5) /hpf Urine WBC (0-5) /hpf Ur Squamous Epith Cells (0-4) /hpf Hyaline Casts (0-2) /lpf Urine Mucus (None) /hpf Urine HCG, Qual (Not Detectd) 05/09/18 05/09/18 05/09/18 Range/Units 02:40 02:55 02:55 WBC (3.8-10.6) k/uL RBC (3.80-5.40) m/uL Hgb (11.4-16.0) gm/dL Hct (34.0-46.0) % MCV (80.0-100.0) fL MCH (25.0-35.0) pg MCHC (31.0-37.0) g/dL RDW (11.5-15.5) % Plt Count (150-450) k/uL Neutrophils % % Lymphocytes % % Monocytes % % Eosinophils % % Basophils % % Neutrophils # (1.3-7.7) k/uL Lymphocytes # (1.0-4.8) k/uL Monocytes # (0-1.0) k/uL Eosinophils # (0-0.7) k/uL Basophils # (0-0.2) k/uL Hypochromasia Sodium 139 (137-145) mmol/L Potassium 3.9 (3.5-5.1) mmol/L Chloride 113 H (98-107) mmol/L Carbon Dioxide 18 L (22-30) mmol/L Anion Gap 8 mmol/L BUN 10 (7-17) mg/dL Creatinine 0.87 (0.52-1.04) mg/dL Est GFR (CKD-EPI)AfAm >90 (>60 ml/min/1.73 sqM) Est GFR (CKD-EPI)NonAf 86 (>60 ml/min/1.73 sqM) Glucose 95 (74-99) mg/dL Plasma Lactic Acid Frank (0.7-2.0) mmol/L Calcium 9.8 (8.4-10.2) mg/dL Total Bilirubin 0.3 (0.2-1.3) mg/dL AST 17 (14-36) U/L ALT 41 (9-52) U/L Alkaline Phosphatase 139 H (38-126) U/L Total Protein 6.8 (6.3-8.2) g/dL Albumin 4.0 (3.5-5.0) g/dL Amylase (30-110) U/L Lipase (23-300) U/L Urine Color Yellow Urine Appearance Cloudy H (Clear) Urine pH 5.5 (5.0-8.0) Ur Specific [place] 1.025 (1.001-1.035) Urine Protein Trace H (Negative) Urine Glucose (UA) Negative (Negative) Urine Ketones Negative (Negative) Urine Blood Negative (Negative) Urine Nitrite Negative (Negative) Urine Bilirubin Negative (Negative) Urine Urobilinogen 2.0 (<2.0) mg/dL Ur Leukocyte Esterase Small H (Negative) Urine RBC 2 (0-5) /hpf Urine WBC 7 H (0-5) /hpf Ur Squamous Epith Cells 9 H (0-4) /hpf Hyaline Casts 8 H (0-2) /lpf Urine Mucus Many H (None) /hpf Urine HCG, Qual Not Detected (Not Detectd) Disposition <Maximino Boyd - Last Filed: 05/09/18 07:48> Is patient prescribed a controlled substance at d/c from ED?: No Time of Disposition: 07:59 <Jian Vallejo - Last Filed: 05/09/18 07:59> Clinical Impression: Enteritis, PICC (peripherally inserted central catheter) in place Disposition: ADMITTED IP TO THIS HOSP Condition: Stable Referrals: Karthikeyan Pedro MD [Primary Care Provider] - 1-2 days
[2018-05-09 02:57] LABS: Basophils # (A) 0.1 k/uL (0-0.2); Basophils % (A) 1 %; Eosinophils # (A) 0.3 k/uL (0-0.7); Eosinophils % (A) 3 %; HCT 40.7 % (34.0-46.0); HGB 12.9 gm/dL (11.4-16.0); Hypochromasia Slight; Lymphocytes % (A) 27 %; MCHC 31.6 g/dL (31.0-37.0); Monocytes # (A) 0.6 k/uL (0-1.0); Monocytes % (A) 6 %; Neutrophils # (A) 7.1 k/uL (1.3-7.7); Neutrophils % (A) 62 %; Platelet Count 357 k/uL (150-450); RBC 5.16 m/uL (3.80-5.40); RDW 13.7 % (11.5-15.5); WBC 11.3 k/uL (3.8-10.6)
[2018-05-09] MEDS ORDERED: HYDROmorphone 1 MG/ML 1 ML SYRINGE IVP STA ×2 (02:59→05:42)
[2018-05-09 03:03] LABS: ALT 41 U/L (9-52); AST 17 U/L (14-36); Alkaline Phosphatase 139 U/L (38-126); Anion Gap 8 mmol/L; Blood Urea Nitrogen 10 mg/dL (7-17); Calcium 9.8 mg/dL (8.4-10.2); Carbon Dioxide 18 mmol/L (22-30); Chloride 113 mmol/L (98-107); Glucose 95 mg/dL (74-99); Potassium 3.9 mmol/L (3.5-5.1); Sodium 139 mmol/L (137-145); Total Bilirubin 0.3 mg/dL (0.2-1.3); Total Protein 6.8 g/dL (6.3-8.2)
[2018-05-09 03:14] LABS: Appearance,Urine Cloudy (Clear); Bilirubin,Urine Negative (Negative); Blood,Urine Negative (Negative); Color,Urine Yellow; Glucose,Urine (UA) Negative (Negative); Hyaline Casts,Urine 8 /lpf (0-2); Ketones,Urine Negative (Negative); Leukocyte Esterase,Urine Small (Negative); Mucus,Urine Many /hpf; Nitrite,Urine Negative (Negative); PH, Urine 5.5 (5.0-8.0); Protein,Urine Trace (Negative); RBC,Urine 2 /hpf (0-5); Specific Gravity,Urine 1.025 (1.001-1.035); Squamous Epithelial Cell,Urine 9 /hpf (0-4); WBC,Urine 7 /hpf (0-5)
[2018-05-09 04:50] LABS: Amylase 71 U/L (30-110); Lipase 64 U/L (23-300)
--- NOTE | 2018-05-09 05:34 | CT ---
EXAM: CT Abdomen and Pelvis Without Intravenous Contrast CLINICAL HISTORY: Right lower quadrant pain. TECHNIQUE: Axial computed tomography images of the abdomen and pelvis without intravenous contrast. CTDI is 15 mGy and DLP is 750 mGy-cm. This CT exam was performed using one or more of the following dose reduction techniques: automated exposure control, adjustment of the mA and/or kV according to patient size, and/or use of iterative reconstruction technique. COMPARISON: March 10, 2018. FINDINGS: Lung bases: Unremarkable. No mass. No consolidation. ABDOMEN: Liver: Unremarkable. Gallbladder and bile ducts: Cholecystectomy clips. No ductal dilation. Pancreas: Unremarkable. Spleen: Unremarkable. No splenomegaly. Adrenals: Unremarkable. No mass. Kidneys and ureters: Unremarkable. No obstructing stones. No hydronephrosis. Stomach and bowel: Postsurgical changes in stomach and left abdominal small bowel loops. No diverticulitis. No bowel obstruction. Segmental wall thickening of colon with intermittent air fluid levels. Percutaneous jejunostomy catheter. PELVIS: Appendix: Normal appendix. Bladder: Unremarkable. No stones. Reproductive: Intrauterine device appears well seated. ABDOMEN and PELVIS: Intraperitoneal space: Unremarkable. No free air. No significant fluid collection. Bones/joints: No acute fracture. No dislocation. Soft tissues: Unremarkable. Vasculature: Unremarkable. Lymph nodes: Unremarkable. No enlarged lymph nodes. IMPRESSION: Normal appendix. No diverticulitis. Segmental wall thickening of colon with intermittent air fluid levels, correlate for infectious or inflammatory colitis versus gastroenteritis.
[2018-05-09] MEDS ORDERED: NALOXONE 0.4 MG/ML 1 ML VIAL IV PRN (07:59)
[2018-05-09] MEDS ORDERED: ACETAMINOPHEN TAB 325 MG TAB PO PRN (07:59)
[2018-05-09] MEDS: HYDROmorphone 0.5 MG/0.5 ML SYRINGE IVP PRN ×5 (08:53→22:16)
--- NOTE | 2018-05-09 14:45 | P.HPIM ---
History of Present Illness H&P Date: 05/09/18 Chief Complaint: Left upper arm pain Patient is 38 old female with known history of idiopathic gastroparesis currently on TPN via PICC line for the past few years, GERD, history of pulmonary embolism on anticoagulation, hypothyroidism and other multiple medical problems came to ER with complaints of burning sensation in the left axilla near the insertion site of her PICC line. Patient says that her PICC line was placed on 04/10/2018 at [facility]. Patient also has been complaining of right lower quadrant abdominal pain. Patient says that she has been using cold packs in the axilla since yesterday. No complaints of fever or chills. No diarrhea or constipation. No nausea vomiting. No chest pain or shortness of breath. CT of the abdomen pelvis showed normal appendix. No diverticular colitis. Segmental wall thickening of colon with intermittent air-fluid levels. Correlate for infectious or inflammatory colitis versus gastroenteritis. Abnormal urine sample likely due to contamination. Review of Systems Constitutional: Patient denies any fever or chills . No generalized weakness or weight loss. Abdomen: Patient denied nausea vomiting and diarrhea and abdominal pain. Cardiovascular: Patient denies any chest pain or short of breath no palpitations. Respiratory: patient denied any cough is from production. No shortness of breath Neurologic: Patient denied any numbness or tingling headache. Musculoskeletal: Patient denies any complaints of joint swelling or deformity. Left arm pain at PICC line site. Skin: Negative Psychiatric: Negative Endocrine: No heat or cold intolerance. No recent weight gain. Genitourinary: No dysuria or hematuria. All other 14 point ROS negative except the above Past Medical History Past Medical History: GERD/Reflux, Pulmonary Embolus (PE), Thyroid Disorder Additional Past Medical History / Comment(s): Idiopathic gastroparesis, takes little in orally-has J tube for feedings and Piccs for TPN, bacteremia/picc line , R pulmonary embolism, pancreatitis, hypothyroid, chronic anemia, sinus problems, migraine History of Any Multi-Drug Resistant Organisms: None Reported Past Surgical History: Section, Cholecystectomy, Hernia Repair, Tonsillectomy Additional Past Surgical History / Comment(s): Picc lines with last one placed , gastric pacer with removal, J tube, x3, 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 Past Anesthesia/Blood Transfusion Reactions: No Reported Reaction Smoking Status: Never smoker - Past Family History Father Family Medical History: Hypertension Additional Family Medical History / Comment(s): DAD IS 56 AND IN [facility] Mother Additional Family Medical History / Comment(s): MOM IS 56 AND IN [facility] Medications and Allergies Home Medications Medication Instructions Recorded Confirmed Type Apixaban [Eliquis] 5 mg PO BID 02/02/18 05/09/18 History Lansoprazole [Prevacid] 30 mg PO BID 02/02/18 05/09/18 History Montelukast Chew [Singulair Chew] 10 mg PO DAILY 02/02/18 05/09/18 History Linaclotide [Linzess] 290 mcg PO DAILY 03/10/18 05/09/18 History Topiramate 50 mg PO DAILY 03/10/18 05/09/18 History Thyroid,Pork [[employer] Thyroid] 90 mg PO DAILY 04/08/18 05/09/18 History oxyCODONE HCL 10 mg PO Q6H PRN 05/09/18 05/09/18 History Allergies Allergy/AdvReac Type Severity Reaction Status Date / Time metoclopramide [From Reglan] AdvReac jittery Verified 05/09/18 08:16 Physical Exam Vitals: Vital Signs Temp Pulse Pulse Resp BP BP Pulse Ox 05/09/18 09:10 98.5 F 71 16 133/86 97 05/09/18 08:57 98.4 F 81 18 132/82 98 05/09/18 07:27 98.3 F 75 18 119/74 99 05/09/18 05:28 98.8 F 88 18 127/80 97 05/09/18 04:28 74 18 111/59 100 05/09/18 02:58 80 19 130/74 100 05/08/18 23:41 99 F 91 20 132/84 100 Intake and Output 05/08/18 05/09/18 05/09/18 22:59 06:59 14:59 Other: Voiding Method Toilet Weight 90.718 kg 92.4 kg PHYSICAL EXAMINATION: Patient is lying in the bed comfortably, no acute distress, awake alert and oriented.. HEENT: Normocephalic. Neck is supple. Pupils reactive. Nostrils clear. Oral cavity is moist. Ears reveal no drainage. Neck reveals no JVD, carotid bruits, or thyromegaly. CHEST EXAMINATION: Trachea is central. Symmetrical expansion. Lung mi clear to auscultation and percussion. CARDIAC: Normal S1, S2 with no gallops. No murmurs ABDOMEN: Soft. Bowel sounds normal. No organomegaly. No abdominal bruits. Extremities: reveal no edema. No clubbing or cyanosis. no swelling in the left axilla. PICC line insertion site is intact and no redness or drainage noted. Nontender. No left upper extremity swelling. Neurologically awake, alert, oriented x3 with well-coordinated movements. No focal deficits noted Skin: No rash or skin lesions. Psychiatric: Coperative. Nonsuicidal. Anxious Musculoskeletal: No joint swelling or deformity. Normal range of motion. Results CBC & Chem 7: 05/09/18 02:40 05/09/18 02:40 Labs: Abnormal Lab Results - Last 24 Hours (Table) 05/09/18 05/09/18 05/09/18 Range/Units 02:40 02:40 02:55 WBC 11.3 H (3.8-10.6) k/uL MCV 79.0 L (80.0-100.0) fL Chloride 113 H (98-107) mmol/L Carbon Dioxide 18 L (22-30) mmol/L Alkaline Phosphatase 139 H (38-126) U/L Urine Appearance Cloudy H (Clear) Urine Protein Trace H (Negative) Ur Leukocyte Esterase Small H (Negative) Urine WBC 7 H (0-5) /hpf Ur Squamous Epith Cells 9 H (0-4) /hpf Hyaline Casts 8 H (0-2) /lpf Urine Mucus Many H (None) /hpf Thrombosis Risk Factor Assmnt - DVT/VTE Prophylaxis DVT/VTE Prophylaxis: Pharmacologic Prophylaxis ordered - Choose All That Apply Any of the Below Risk Factors Present?: Yes Each Factor Represents 1 point: Obesity (BMI >25) Other Risk Factors: Yes Each Risk Factor Represents 3 Points: History of DVT/PE Other congenital or acquired thrombophilia - If yes, enter type in comment: No Thrombosis Risk Factor Assessment Total Risk Factor Score: 4 Thrombosis Risk Factor Assessment Level: Moderate Risk Assessment and Plan Assessment: Pain in the left axilla. Admitted to PICC line as the patient. Recent insertion on 04/10/2018 Idiopathic gastroparesis on long-term TPN with PICC line area GERD Hypothyroidism History of pulmonary embolism on anticoagulation currently J-tube feeding. 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 Patient is already on full anticoagulation Plan: Patient will be continued on pain management with Dilaudid. IR was consulted for possible PICC and adjustment versus replacement. Continue the home medications and follow closely. Patient has been counseled extensively. Further recommendations based on the clinical course. Prognosis is guarded. Time with Patient: Greater than 30
--- NOTE | 2018-05-09 15:12 | P.GSCN ---
History of Present Illness Consult date: 05/09/18 Reason for Consult: picc malfunction, replacement History of present illness: called for picc placement, propagator laborer staff checked indwelling line and report that the line aspirates and flushes without difficulty. If clinical concern for DVT, consider upper extremity doppler. Picc line durability should be approximately 2 months, consider consulting physician who placed line. Past Medical History Past Medical History: GERD/Reflux, Pulmonary Embolus (PE), Thyroid Disorder Additional Past Medical History / Comment(s): Idiopathic gastroparesis, takes little in orally-has J tube for feedings and Piccs for TPN, bacteremia/picc line , R pulmonary embolism, pancreatitis, hypothyroid, chronic anemia, sinus problems, migraine History of Any Multi-Drug Resistant Organisms: None Reported Past Surgical History: Section, Cholecystectomy, Hernia Repair, Tonsillectomy Additional Past Surgical History / Comment(s): Picc lines with last one placed , gastric pacer with removal, J tube, x3, 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 Past Anesthesia/Blood Transfusion Reactions: No Reported Reaction Smoking Status: Never smoker - Past Family History Father Family Medical History: Hypertension Additional Family Medical History / Comment(s): DAD IS 56 AND IN [facility] Mother Additional Family Medical History / Comment(s): MOM IS 56 AND IN [facility] Medications and Allergies Home Medications Medication Instructions Recorded Confirmed Type Apixaban [Eliquis] 5 mg PO BID 02/02/18 05/09/18 History Lansoprazole [Prevacid] 30 mg PO BID 02/02/18 05/09/18 History Montelukast Chew [Singulair Chew] 10 mg PO DAILY 02/02/18 05/09/18 History Linaclotide [Linzess] 290 mcg PO DAILY 03/10/18 05/09/18 History Topiramate 50 mg PO DAILY 03/10/18 05/09/18 History Thyroid,Pork [Starch Dumper Thyroid] 90 mg PO DAILY 04/08/18 05/09/18 History oxyCODONE HCL 10 mg PO Q6H PRN 05/09/18 05/09/18 History Allergies Allergy/AdvReac Type Severity Reaction Status Date / Time metoclopramide [From Reglan] AdvReac jittery Verified 05/09/18 08:16 Surgical - Exam Vital Signs Temp Pulse Resp BP Pulse Ox 99 F 91 20 132/84 100 05/08/18 23:41 05/08/18 23:41 05/08/18 23:41 05/08/18 23:41 05/08/18 23:41 Results - Labs 05/09/18 02:40 05/09/18 02:40 Abnormal Lab Results - Last 24 Hours (Table) 05/09/18 05/09/18 05/09/18 Range/Units 02:40 02:40 02:55 WBC 11.3 H (3.8-10.6) k/uL MCV 79.0 L (80.0-100.0) fL Chloride 113 H (98-107) mmol/L Carbon Dioxide 18 L (22-30) mmol/L Alkaline Phosphatase 139 H (38-126) U/L Urine Appearance Cloudy H (Clear) Urine Protein Trace H (Negative) Ur Leukocyte Esterase Small H (Negative) Urine WBC 7 H (0-5) /hpf Ur Squamous Epith Cells 9 H (0-4) /hpf Hyaline Casts 8 H (0-2) /lpf Urine Mucus Many H (None) /hpf Diabetes panel 05/09/18 Range/Units 02:40 Sodium 139 (137-145) mmol/L Potassium 3.9 (3.5-5.1) mmol/L Chloride 113 H (98-107) mmol/L Carbon Dioxide 18 L (22-30) mmol/L BUN 10 (7-17) mg/dL Creatinine 0.87 (0.52-1.04) mg/dL Glucose 95 (74-99) mg/dL Calcium 9.8 (8.4-10.2) mg/dL AST 17 (14-36) U/L ALT 41 (9-52) U/L Alkaline Phosphatase 139 H (38-126) U/L Total Protein 6.8 (6.3-8.2) g/dL Albumin 4.0 (3.5-5.0) g/dL Calcium panel 05/09/18 Range/Units 02:40 Calcium 9.8 (8.4-10.2) mg/dL Albumin 4.0 (3.5-5.0) g/dL Pituitary panel 05/09/18 Range/Units 02:40 Sodium 139 (137-145) mmol/L Potassium 3.9 (3.5-5.1) mmol/L Chloride 113 H (98-107) mmol/L Carbon Dioxide 18 L (22-30) mmol/L BUN 10 (7-17) mg/dL Creatinine 0.87 (0.52-1.04) mg/dL Glucose 95 (74-99) mg/dL Calcium 9.8 (8.4-10.2) mg/dL Adrenal panel 05/09/18 Range/Units 02:40 Sodium 139 (137-145) mmol/L Potassium 3.9 (3.5-5.1) mmol/L Chloride 113 H (98-107) mmol/L Carbon Dioxide 18 L (22-30) mmol/L BUN 10 (7-17) mg/dL Creatinine 0.87 (0.52-1.04) mg/dL Glucose 95 (74-99) mg/dL Calcium 9.8 (8.4-10.2) mg/dL Total Bilirubin 0.3 (0.2-1.3) mg/dL AST 17 (14-36) U/L ALT 41 (9-52) U/L Alkaline Phosphatase 139 H (38-126) U/L Total Protein 6.8 (6.3-8.2) g/dL Albumin 4.0 (3.5-5.0) g/dL
[2018-05-09] MEDS ORDERED: SODIUM CHLORIDE 0.9% 1,000 ML IV SCH (18:30)
[2018-05-09] MEDS: APIXABAN 5 MG TAB PO SCH (20:20)
[2018-05-09] MEDS: PANTOPRAZOLE 40 MG TABLET PO SCH (20:20)
[2018-05-10] MEDS: HYDROmorphone 0.5 MG/0.5 ML SYRINGE IVP PRN ×3 (03:35→09:44)
[2018-05-10 07:38] VITALS: BP 117/72; PULSE 70; RESP 18; TEMP 98.2
[2018-05-10] MEDS ORDERED: MONTELUKAST 10 MG TAB PO SCH (09:00)
[2018-05-10] MEDS ORDERED: THYROID, PORK 30 MG TAB PO SCH (09:00)
[2018-05-10] MEDS ORDERED: TOPIRAMATE 25 MG TAB PO SCH (09:00)
[2018-05-10] MEDS ORDERED: NON-FORMULARY DRUG (Linaclotide [Linzess] 290 MCG) PO SCH (09:00)
[2018-05-10] MEDS: PANTOPRAZOLE 40 MG TABLET PO SCH (10:30)
[2018-05-10] MEDS: APIXABAN 5 MG TAB PO SCH (10:30)
--- NOTE | 2018-05-12 10:22 | P.DS ---
Providers Date of admission: 05/09/18 07:59 Expected date of discharge: 05/10/18 Attending physician: Gus El MD Primary care physician: Karthikeyan smiley Layton Hospital Course: Discharge diagnosis Pain/burning sensation in the left axilla. No active infection/issues identified. Recent insertion on 04/10/2018 Idiopathic gastroparesis on long-term TPN with PICC line area GERD Hypothyroidism History of pulmonary embolism on anticoagulation currently J-tube feeding. 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 Patient is already on full anticoagulation Hospital course Patient is 38 old female with known history of idiopathic gastroparesis currently on TPN via PICC line for the past few years, GERD, history of pulmonary embolism on anticoagulation, hypothyroidism and other multiple medical problems came to ER with complaints of burning sensation in the left axilla near the insertion site of her PICC line. Patient says that her PICC line was placed on 04/10/2018 at [facility]. Patient also has been complaining of right lower quadrant abdominal pain. Patient says that she has been using cold packs in the axilla since yesterday. No complaints of fever or chills. No diarrhea or constipation. No nausea vomiting. No chest pain or shortness of breath. CT of the abdomen pelvis showed normal appendix. No diverticular colitis. Segmental wall thickening of colon with intermittent air-fluid levels. Correlate for infectious or inflammatory colitis versus gastroenteritis. Abnormal urine sample likely due to contamination. 05/10/2018 Patient denied any fever or chills. No chest pain or shortness of breath. Still complaining of burning sensation at the PICC line site. PICC line is functioning appropriately as per the IR team and no acute issues going on at this time. Patient is being discharged home. Patient wants to follow with [facility] with the line was placed. Patient was continued on pain management with Dilaudid. IR was consulted for possible PICC and adjustment versus replacement. However, since PICC line is functioning appropriately, INR is not trying to replace the PICC line. Patient still having some burning sensation. Otherwise no acute issues identified. Patient wants to be discharged home. PHYSICAL EXAMINATION: Patient is lying in the bed comfortably, no acute distress, awake alert and oriented.. HEENT: Normocephalic. Neck is supple. Pupils reactive. Nostrils clear. Oral cavity is moist. Ears reveal no drainage. Neck reveals no JVD, carotid bruits, or thyromegaly. CHEST EXAMINATION: Trachea is central. Symmetrical expansion. Lung mi clear to auscultation and percussion. CARDIAC: Normal S1, S2 with no gallops. No murmurs ABDOMEN: Soft. Bowel sounds normal. No organomegaly. No abdominal bruits. Extremities: reveal no edema. No clubbing or cyanosis Neurologically awake, alert, oriented x3 with well-coordinated movements. No focal deficits noted Skin: No rash or skin lesions. Psychiatric: Coperative. Nonsuicidal Musculoskeletal: No joint swelling or deformity. Normal range of motion. Discharge vitals reviewed. Patient Condition at Discharge: Stable Plan - Discharge Summary Discharge Rx Participant: No New Discharge Prescriptions: Continue Lansoprazole [Prevacid] 30 mg PO BID Montelukast Chew [Singulair] 10 mg PO DAILY Apixaban [Eliquis] 5 mg PO BID Topiramate 50 mg PO DAILY Linaclotide [Linzess] 290 mcg PO DAILY Thyroid,Pork [Director Game Thyroid] 90 mg PO DAILY oxyCODONE HCL 10 mg PO Q6H PRN PRN Reason: Pain Discharge Medication List Apixaban [Eliquis] 5 mg PO BID 02/02/18 [History] Lansoprazole [Prevacid] 30 mg PO BID 02/02/18 [History] Montelukast Chew [Singulair] 10 mg PO DAILY 02/02/18 [History] Linaclotide [Linzess] 290 mcg PO DAILY 03/10/18 [History] Topiramate 50 mg PO DAILY 03/10/18 [History] Thyroid,Pork [Director Game Thyroid] 90 mg PO DAILY 04/08/18 [History] oxyCODONE HCL 10 mg PO Q6H PRN 05/09/18 [History] Follow up Appointment(s)/Referral(s): Karthikeyan Pedro MD [Primary Care Provider] - 1-2 days Discharge Disposition: HOME SELF-CARE
== END 2018-05-10 10:50 | disposition home or self-care (01) ==
LOC: EC 23:26 → 1SOBS 05-09 07:59
PROVIDERS: ADMIT Internal Medicine; ATTEND Internal Medicine
DX: T82.848A Pain due to vascular prosthetic devices, implants and grafts, initial encounter (principal); M79.622 Pain in left upper arm; K31.84 Gastroparesis; K21.9 Gastro-esophageal reflux disease without esophagitis; E03.9 Hypothyroidism, unspecified; D64.9 Anemia, unspecified; Z86.711 Personal history of pulmonary embolism; G43.909 Migraine, unspecified, not intractable, without status migrainosus; Z98.0 Intestinal bypass and anastomosis status; Z79.899 Other long term (current) drug therapy; Z79.01 Long term (current) use of anticoagulants; Z90.49 Acquired absence of other specified parts of digestive tract; Z82.49 Family history of ischemic heart disease and other diseases of the circulatory system; Z79.890 Hormone replacement therapy; Z88.8 Allergy status to other drugs, medicaments and biological substances; E66.9 Obesity, unspecified; Z68.36 Body mass index [BMI] 36.0-36.9, adult
CPT/HCPCS: 96376 ×3; 96374; 99284; 36415; 80053; 82150; 83605; 83690; 85025; 81001; 81025; 87040; 74176; G0378 ×2; J1170 ×3

== ENCOUNTER 2018-06-04 00:43 | Emergency (ER) | payer BC ==
[2018-06-04] MEDS ORDERED: MORPHINE SULFATE 4 MG/ML SYRINGE IVP STA ×2 (01:28→03:53)
[2018-06-04] MEDS ORDERED: SODIUM CHLORIDE 0.9% 1,000 ML IV ONE (01:28)
[2018-06-04] MEDS ORDERED: KETOROLAC 30 MG/ML 1 ML VIAL IVP STA (01:28)
[2018-06-04] MEDS ORDERED: SODIUM CHLORIDE 0.9% 1,000 ML IV SCH (01:30)
--- NOTE | 2018-06-04 02:24 | ED ---
Recheck HPI - General Chief Complaint: Recheck/Abnormal Lab/Rx Stated Complaint: arm pain,svt Time Seen by Provider: 06/04/18 01:01 Source: patient, family Mode of arrival: ambulatory Limitations: no limitations - History of Present Illness Initial Comments: Maribel is a 38-year-old female with an extensive past medical history, most significant for gastroparesis of unknown etiology. Due to her severe gastroparesis the patient requires frequent IV rehydration and she has a PICC line in place. Patient reports she was recently admitted at [facility] for a number of weeks, she reports that during that admission she was having some pain at the PICC line insertion site and ultrasound revealed she had a superficial venous thrombosis. Patient had thorough evaluation during that admission and was subsequently discharged home. She reports that yesterday she' s been having worsening aching pain in her left upper extremity and was concerned that the clot may be increasing in size. Patient does take L Davis daily due to a history of clots. Patient denies any associated fevers, chills or any numbness or weakness in the left upper extremity. She denies any swelling of the extremity. She's been told that her thrombosis is superficial and not in the deep veins. - Related Data Home Medications Medication Instructions Recorded Confirmed Apixaban [Eliquis] 5 mg PO BID 02/02/18 06/04/18 Lansoprazole [Prevacid] 30 mg PO BID 02/02/18 06/04/18 Montelukast Chew [Singulair] 10 mg PO DAILY 02/02/18 06/04/18 Linaclotide [Linzess] 290 mcg PO DAILY 03/10/18 06/04/18 Topiramate 50 mg PO DAILY 03/10/18 06/04/18 Thyroid,Pork [[employer] Canning Leader Thyroid] 90 mg PO DAILY 04/08/18 06/04/18 oxyCODONE HCL 10 mg PO Q6H PRN 05/09/18 06/04/18 Allergies Allergy/AdvReac Type Severity Reaction Status Date / Time metoclopramide [From Reglan] AdvReac jittery Verified 06/04/18 00:50 Review of Systems ROS Statement: Those systems with pertinent positive or pertinent negative responses have been documented in the HPI. ROS Other: All systems not noted in ROS Statement are negative. Past Medical History Past Medical History: GERD/Reflux, Pulmonary Embolus (PE), Thyroid Disorder Additional Past Medical History / Comment(s): Idiopathic gastroparesis, takes little in orally-has J tube for feedings and Piccs for TPN, bacteremia/picc line , R pulmonary embolism, pancreatitis, hypothyroid, chronic anemia, sinus problems, migraine History of Any Multi-Drug Resistant Organisms: None Reported Past Surgical History: Section, Cholecystectomy, Hernia Repair, Tonsillectomy Additional Past Surgical History / Comment(s): Picc lines with last one placed , gastric pacer with removal, J tube, x3, 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 Past Anesthesia/Blood Transfusion Reactions: No Reported Reaction Past Psychological History: Depression Smoking Status: Never smoker - Past Family History Father Family Medical History: Hypertension Additional Family Medical History / Comment(s): DAD IS 56 AND IN [place] [facility] Mother Additional Family Medical History / Comment(s): MOM IS 56 AND IN [place] [facility] General Exam - General Exam Comments Initial Comments: Physical Exam GENERAL: Chronically ill appearing female in no acute distress HENT: Normocephalic, Atraumatic. EYES: PERRL, EOMI PULMONARY: Unlabored respirations. CARDIOVASCULAR: Tachycardic, regular ABDOMEN: Soft and nontender with normal bowel sounds. SKIN: Skin is clear with no lesions or rashes and otherwise unremarkable. Left upper extremity with PICC line in place, no surrounding erythema or tenderness Skin irriatation secondary to tegaderm usage, small blisters consistent with contact dermatitis : Deferred NEUROLOGIC: Patient is alert and oriented x3. Moving all extremities spontaneously MUSCULOSKELETAL: Normal extremities with adequate strength and full range of motion. No lower extremity swelling or edema. No calf tenderness. PSYCHIATRIC: Normal psychiatric evaluation. Limitations: no limitations Limitations: no limitations Course Vital Signs 06/04/18 06/04/18 00:45 03:41 Temperature 98.6 F 97.8 F Pulse Rate 109 H 89 Respiratory 20 16 Rate Blood Pressure 133/83 127/75 O2 Sat by Pulse 100 96 Oximetry Medical Decision Making - Medical Decision Making Patient was seen and evaluated history is obtained from the patient and at bedside Repeat US ordered Patient has US results from outside facility that do reveal superficial clot in the basilic vein, the PICC line does go through the basilic vein however it terminates in the subclavian she was advised to distal safe to use Repeat ultrasound was obtained here which again confirms that the clot in the basilic vein, these results were provided to the patient. Patient was given pain meds while here and reports improvement in her discomfort. At this time the patient's comfortable with the plan for discharge home she will follow up with her primary care physician to discuss this persistent clot and potential change from L Davis to Lovenox that she expresses concern that due to her gastroparesis she may not absorb Eliquis appropriately. At this time patient feels reassured and is comfortable with plan for discharge home. She does have very close outpatient follow-up due to her multiple medical comorbidities and comfortable with plan for following up outpatient. Return parameters were discussed all questions pertaining care were answered the very best of my ability and patient was discharged home in stable condition Disposition Clinical Impression: PICC (peripherally inserted central catheter) in place, Brachial vein thrombosis, left Disposition: HOME SELF-CARE Condition: Good Instructions (If sedation given, give patient instructions): Superficial Thrombophlebitis (ED) Is patient prescribed a controlled substance at d/c from ED?: No Referrals: Karthikeyan Pedro MD [Primary Care Provider] - 1-2 days
--- NOTE | 2018-06-04 02:53 | US ---
EXAM: US Left Upper Extremity Non-Vascular, Complete CLINICAL HISTORY: ITS.REASON US Reason: Pain, superficial clot 2/2 picc TECHNIQUE: Real-time ultrasound scan of the left upper extremity with image documentation. COMPARISON: No relevant prior studies available. FINDINGS: Soft tissues: Unremarkable. No abscess. No foreign body. Deep veins: Left Arm: Visualized portions appear negative for DVT, appears positive for SVT within upper portion of basilic vein; picc line visualized within thrombosed upper basilic vein. Lymph nodes: No mass or adenopathy. Tubes, lines and devices: Limited to no visualization of left arm brachial veins and mid portion of basilic vein due to picc line bandages IMPRESSION: No DVT. Positive for superficial venous thrombosis involving the upper portion of the basilic vein. <MYCVCSECTION> [employer] 06/04/18 03:06 Verify Receipt Verified receipt with CAMERON Martinez for Dr. Figueroa on 06/04 03:06 (-05:00)
[2018-06-04 03:42] VITALS: BP 127/75; PULSE 89; RESP 16; TEMP 97.8
== END 2018-06-04 04:38 | disposition home or self-care (01) ==
LOC: EC 00:43
DX: I82.622 Acute embolism and thrombosis of deep veins of left upper extremity (principal); Z45.2 Encounter for adjustment and management of vascular access device; K21.9 Gastro-esophageal reflux disease without esophagitis; E03.9 Hypothyroidism, unspecified; D64.9 Anemia, unspecified; G43.909 Migraine, unspecified, not intractable, without status migrainosus; F32.9 Major depressive disorder, single episode, unspecified; Z86.711 Personal history of pulmonary embolism; Z79.01 Long term (current) use of anticoagulants; Z79.899 Other long term (current) drug therapy; Z88.8 Allergy status to other drugs, medicaments and biological substances
CPT/HCPCS: 93971; 99284; 96374; 96375; 96376; 96361 ×3; J2270; J1885

== ENCOUNTER 2018-06-29 15:34 | Emergency (ER) | payer BC ==
--- NOTE | 2018-06-29 16:29 | ED ---
General Adult HPI - General Chief complaint: Extremity Problem,Nontraumatic Stated complaint: poss blood clot rt arm Time Seen by Provider: 06/29/18 16:04 Source: patient, RN notes reviewed Mode of arrival: ambulatory Limitations: no limitations - History of Present Illness Initial comments: 38-year-old female with a past medical history of gastroparesis, PE, DVT and left arm 2 weeks ago presents to the emergency department for a chief complaint of right arm pain. Patient states she had a PICC line in place in the left arm and was receiving TPN due to gastroparesis. Patient states she was on L requested that time due to history of PE. After patient developed a clot in the left arm the line was pulled and patient was started on Lovenox. Patient states that the PICC line was put into the right arm about 2 weeks ago and she started to develop pain last night. Patient states she wants to make sure she does not have a blood clot in this arm. Patient has no other complaints at this time including shortness of breath, chest pain, abdominal pain, nausea or vomiting, headache, or visual changes. - Related Data Home Medications Medication Instructions Recorded Confirmed Lansoprazole [Prevacid] 30 mg PO BID 02/02/18 06/29/18 Montelukast Chew [Singulair] 10 mg PO DAILY 02/02/18 06/29/18 Linaclotide [Linzess] 290 mcg PO DAILY 03/10/18 06/29/18 Topiramate 50 mg PO DAILY 03/10/18 06/29/18 Thyroid,Pork [Turntable Engineer Thyroid] 90 mg PO DAILY 04/08/18 06/29/18 oxyCODONE HCL [oxyCODONE HCL (IR)] 10 mg PO Q6H PRN 05/09/18 06/29/18 Enoxaparin [Lovenox] 150 mg SQ DAILY 06/29/18 06/29/18 Allergies Allergy/AdvReac Type Severity Reaction Status Date / Time prochlorperazine Allergy JITTERY Verified 06/29/18 16:31 [From Compazine] metoclopramide [From Reglan] AdvReac jittery Verified 06/29/18 16:31 Review of Systems ROS Statement: Those systems with pertinent positive or pertinent negative responses have been documented in the HPI. ROS Other: All systems not noted in ROS Statement are negative. Past Medical History Past Medical History: GERD/Reflux, Pulmonary Embolus (PE), Thyroid Disorder Additional Past Medical History / Comment(s): Idiopathic gastroparesis, takes little in orally-has J tube for feedings and Piccs for TPN, bacteremia/picc line, R pulmonary embolism, pancreatitis, hypothyroid, chronic anemia, sinus pro blems, migraine History of Any Multi-Drug Resistant Organisms: None Reported Past Surgical History: Section, Cholecystectomy, Hernia Repair, Tonsillectomy Additional Past Surgical History / Comment(s): Picc lines with last one placed 04/2018, gastric pacer with removal, J tube, x3, 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 Past Anesthesia/Blood Transfusion Reactions: No Reported Reaction Past Psychological History: Depression Smoking Status: Never smoker Past Alcohol Use History: None Reported Past Drug Use History: None Reported - Past Family History Father Family Medical History: Hypertension Additional Family Medical History / Comment(s): DAD IS 56 AND IN [facility] Mother Additional Family Medical History / Comment(s): MOM IS 56 AND IN [facility] General Exam Limitations: no limitations General appearance: alert, in no apparent distress Head exam: Present: atraumatic, normocephalic, normal inspection Eye exam: Present: normal appearance, PERRL, EOMI. Absent: scleral icterus, conjunctival injection, periorbital swelling ENT exam: Present: normal exam, mucous membranes moist Neck exam: Present: normal inspection. Absent: tenderness, meningismus, lymphadenopathy Respiratory exam: Present: normal lung sounds bilaterally. Absent: respiratory distress, wheezes, rales, rhonchi, stridor Cardiovascular Exam: Present: regular rate, normal rhythm, normal heart sounds. Absent: systolic murmur, diastolic murmur, rubs, gallop, clicks Extremities exam: Present: normal capillary refill (capillary refill less than 2 seconds, radial pulse 2+ in the right upper extremity, equal in BUE), other (PICC line in place and right upper extremity) Course Vital Signs 06/29/18 06/29/18 06/29/18 15:43 16:34 18:47 Temperature 99 F 98.9 F 98.8 F Pulse Rate 111 H 94 100 Respiratory 22 16 18 Rate Blood Pressure 125/78 105/68 116/86 O2 Sat by Pulse 100 100 98 Oximetry Medical Decision Making - Medical Decision Making 38-year-old female with a past medical history of PE DVT presents to the emergency department for a chief complaint of right arm pain. Patient has a PICC line in the right arm. Patient currently on Lovenox due to DVT in left arm 2 weeks ago. Denies any shortness of breath or chest pain. Patient initially tachycardic with a pulse rate of 111 which did improve to 94 throughout her stay here in the emergency department. Ultrasound was obtained which showed no evidence of DVT. eye exam no evidence of erythema or edema. No swelling noted. No evidence of lymphangitis or other infectious signs. Patient will be discharged home to follow up with primary care. Our patient is aware to return if she develops any worsening symptoms including worsening arm pain, short any shortness of breath, or any chest pain. Disposition Clinical Impression: Arm pain Disposition: HOME SELF-CARE Condition: Good Instructions (If sedation given, give patient instructions): Arm Pain (ED) Additional Instructions: please follow up with primary care in 1-2 days. Please return here to the emergency department if you have any worsening symptoms such as worsening pain, redness, fevers. Is patient prescribed a controlled substance at d/c from ED?: No Referrals: Karthikeyan Pedro MD [Primary Care Provider] - 1-2 days Time of Disposition: 18:36
--- NOTE | 2018-06-29 17:24 | US ---
EXAMINATION TYPE: US venous doppler duplex UE RT DATE OF EXAM: 06/29/2018 COMPARISON: NONE CLINICAL HISTORY: Pain. Right arm pain. PICC line placement 2 weeks ago right arm. Patient on blood t hinners SIDE PERFORMED: right Right Arm: Technical limitations due to PICC line and bandage right upper arm. Limited evaluation o f brachial veins. No evidence of DVT as visualized. PICC line visualized right subclavian vein and ba silic vein. IMPRESSION: No evidence of deep venous thrombosis in the right arm.
[2018-06-29 18:49] VITALS: BP 116/86; PULSE 100; RESP 18; TEMP 98.8
== END 2018-06-29 18:49 | disposition home or self-care (01) ==
LOC: EC 15:34
DX: M79.601 Pain in right arm (principal); K21.9 Gastro-esophageal reflux disease without esophagitis; Z86.711 Personal history of pulmonary embolism; G43.909 Migraine, unspecified, not intractable, without status migrainosus; E03.9 Hypothyroidism, unspecified; Z79.899 Other long term (current) drug therapy; Z79.01 Long term (current) use of anticoagulants; Z88.8 Allergy status to other drugs, medicaments and biological substances; Z45.2 Encounter for adjustment and management of vascular access device
CPT/HCPCS: 99283

== ENCOUNTER 2018-07-17 15:34 | Inpatient (IN) | payer BC ==
[2018-07-17] MEDS ORDERED: SODIUM CHLORIDE 0.9% 1,000 ML IV ONE (15:58)
--- NOTE | 2018-07-17 16:11 | ED ---
Abdominal Pain HPI - General Chief Complaint: Abdominal Pain Stated Complaint: Abd Pain Time Seen by Provider: 07/17/18 15:55 Source: patient, family Mode of arrival: ambulatory Limitations: no limitations - History of Present Illness Initial Comments: 38yo female past medical history of paresis, multiple pulmonary embolisms, multiple deep venous thrombosis of the upper extremities, previous TPN patient currently with [facility] presenting today for cc of charcoal vomiting. Patient states she has had intractable vomiting for the past 2 days. Patient states it feels similar to her gastroparesis. Patient states she does have diffuse abdominal pain. She also states that yesterday she had shortness of breath walking up the stairs, she thought this was increased compare to baseline, denies chest pain. Denies SOB at rest. Pt denies chest pain with deep inspiration. She denies upper extremity or lower extremity swelling. Patient denies emesis melena hematochezia or diarrhea. Patient has fever chills or night sweats. Patient is currently a part of a study at [facility] for gastroparesis she is not to take any QT prolongation antiemetics. Patient states she can take Ativan and Benadryl. Remaining review of system negative. Upon arrival patient is vomiting. - Related Data Home Medications Medication Instructions Recorded Confirmed Lansoprazole [Prevacid] 30 mg PO BID 02/02/18 07/17/18 Montelukast Chew [Singulair] 10 mg PO DAILY 02/02/18 07/17/18 Linaclotide [Linzess] 290 mcg PO DAILY 03/10/18 07/17/18 Topiramate 50 mg PO DAILY 03/10/18 07/17/18 Thyroid,Pork [Res Habilitation Assistant Thyroid] 90 mg PO DAILY 04/08/18 07/17/18 oxyCODONE HCL [oxyCODONE HCL (IR)] 10 mg PO Q6H PRN 05/09/18 07/17/18 Enoxaparin [Lovenox] 135 mg SQ DAILY 06/29/18 07/17/18 Propulsid 20 ml PO QID 07/17/18 07/17/18 Allergies Allergy/AdvReac Type Severity Reaction Status Date / Time prochlorperazine Allergy JITTERY Verified 07/17/18 16:31 [From Compazine] metoclopramide [From Reglan] AdvReac jittery Verified 07/17/18 16:31 Review of Systems ROS Statement: Those systems with pertinent positive or pertinent negative responses have been documented in the HPI. ROS Other: All systems not noted in ROS Statement are negative. Past Medical History Past Medical History: GERD/Reflux, Pulmonary Embolus (PE), Thyroid Disorder Additional Past Medical History / Comment(s): Idiopathic gastroparesis, takes little in orally-has J tube for feedings and Piccs for TPN, bacteremia/picc line, R pulmonary embolism, pancreatitis, hypothyroid, chronic anemia, sinus problems, migraine History of Any Multi-Drug Resistant Organisms: None Reported Past Surgical History: Section, Cholecystectomy, Hernia Repair, Tonsillectomy Additional Past Surgical History / Comment(s): Picc lines with last one placed 04/2018, gastric pacer with removal, J tube, x3, 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 Past Anesthesia/Blood Transfusion Reactions: No Reported Reaction Past Psychological History: Depression Smoking Status: Never smoker Past Alcohol Use History: None Reported Past Drug Use History: None Reported - Past Family History Father Family Medical History: Hypertension Additional Family Medical History / Comment(s): DAD IS 56 AND IN [facility] Mother Additional Family Medical History / Comment(s): MOM IS 56 AND IN [facility] General Exam - General Exam Comments Initial Comments: General: The patient is awake and alert, in no distress. Eye: +3 mm pupils are equal, round and reactive to light, extra-ocular movements are intact. No nystagmus. There is normal conjunctiva bilaterally. No signs of icterus. Ears, nose, mouth and throat: There are moist mucous membranes and no oral lesions. Neck: The neck is supple, there is no tenderness or JVD. Cardiovascular: There is a regular rate and rhythm. No murmur, rub or gallop is appreciated. Respiratory: Lungs are clear to auscultation, respirations are non-labored, breath sounds are equal. No wheezes, stridor, rales, or rhonchi. Gastrointestinal: Soft, non-distended, diffusely abdomen without masses or organomegaly noted. There is no rebound or guarding present. No CVA tenderness. Bowel sounds are unremarkable.J peg in place no redness. Negative Auguste sign. Musculoskeletal: Normal ROM, no tenderness. Strength 5/5. Sensation intact. Radial pulses equal bilaterally 2+. Neurological: A&O x 3. CN II-XII intact, There are no obvious motor or sensory deficits. Coordination appears grossly intact. Speech is normal. Skin: Skin is warm and dry and no rashes or lesions are noted. Psychiatric: Cooperative, appropriate mood & affect, normal judgment. Limitations: no limitations Course Vital Signs 07/17/18 07/17/18 07/17/18 15:48 18:00 18:30 Temperature 99 F Pulse Rate 93 81 88 Respiratory 18 18 18 Rate Blood Pressure 143/89 113/73 111/65 O2 Sat by Pulse 100 100 100 Oximetry 07/17/18 19:09 Temperature 98.3 F Pulse Rate 91 Respiratory 18 Rate Blood Pressure 110/68 O2 Sat by Pulse 100 Oximetry - Reevaluation(s) Reevaluation #1: 07/17/18 17:47 Line was not established until 17:47-delay in patient care due to inability to establish IV access after multiple attempts. Medical Decision Making - Medical Decision Making 38 or female presenting today for chief complaint of intractable vomiting. Patient has history of gastroparesis. Patient mentioned she felt more short of breath than usual yesterday. Patient has significant history of DVT and pulmonary embolism currently undergoing hematology evaluation. CT angiogram was obtained to rule pulmonary embolus. Although it was suboptimal study there is no evidence of large pulmonary embolism. Patient hypersomnolent room air. Patient denies current chest pain or shortness of breath. No suspicion for occult pulmonary embolus and. Patient is on anticoagulation therapy at home. The upper or lower extremities. Upon examination patient had vomiting actively. No hematemesis. Patient provided Benadryl and Ativan after line was established this took 2 hours. Patient was difficult to establish IV access. Patient is given IV fluids. She had additional episode of emesis. Complains of nausea. Troponin negative, although patient's symptoms did not appear typical. Elevation of transaminases noted on laboratory studies, these appear increase in comparison with baseline. No leukocytosis. He woke up and stable. Elevated chloride. BUN and creatinine within acceptable limits. Patient does appear dry on examination. Will continue IV hydration. At this time given patient's s ymptoms have subsided somewhat however are still present patient will be admitted for gentle vomiting and symptomatically treatment as well as IV hydration. I spoke with attending provider Dr. Dias who is agreeable with plan of care. Pt has chronic abdominal pain and takes hydrocodone at home. Patient will be continued on Dilaudid 0.5 mg every 4 hour in hospital as well as ativan for nausea. Case was discussed with attending provider Dr. Finch who is agreeable with patients admission. - Lab Data Result diagrams: 07/17/18 16:33 07/17/18 16:33 Lab Results 07/17/18 07/17/18 07/17/18 Range/Units 16:33 16:33 17:45 WBC 8.7 (3.8-10.6) k/uL RBC 5.77 H (3.80-5.40) m/uL Hgb 15.4 (11.4-16.0) gm/dL Hct 47.6 H (34.0-46.0) % MCV 82.4 (80.0-100.0) fL MCH 26.7 (25.0-35.0) pg MCHC 32.4 (31.0-37.0) g/dL RDW 16.4 H (11.5-15.5) % Plt Count 406 (150-450) k/uL Neutrophils % 71 % Lymphocytes % 22 % Monocytes % 4 % Eosinophils % 2 % Basophils % 0 % Neutrophils # 6.1 (1.3-7.7) k/uL Lymphocytes # 1.9 (1.0-4.8) k/uL Monocytes # 0.4 (0-1.0) k/uL Eosinophils # 0.2 (0-0.7) k/uL Basophils # 0.0 (0-0.2) k/uL Anisocytosis Slight Sodium 144 (137-145) mmol/L Potassium 4.2 (3.5-5.1) mmol/L Chloride 114 H (98-107) mmol/L Carbon Dioxide 20 L (22-30) mmol/L Anion Gap 10 mmol/L BUN 12 (7-17) mg/dL Creatinine 0.88 (0.52-1.04) mg/dL Est GFR (CKD-EPI)AfAm >90 (>60 ml/min/1.73 sqM) Est GFR (CKD-EPI)NonAf 85 (>60 ml/min/1.73 sqM) Glucose 94 (74-99) mg/dL Calcium 10.4 H (8.4-10.2) mg/dL Total Bilirubin 0.4 (0.2-1.3) mg/dL AST 55 H (14-36) U/L ALT 219 H (9-52) U/L Alkaline Phosphatase 227 H (38-126) U/L Troponin I <0.012 (0.000-0.034) ng/mL Total Protein 7.8 (6.3-8.2) g/dL Albumin 4.8 (3.5-5.0) g/dL Amylase 55 (30-110) U/L Lipase 41 (23-300) U/L Disposition Clinical Impression: Intractable vomiting, Gastroparesis, Elevated transaminase level, Abdominal pain Disposition: ADMITTED IP TO THIS [facility] Condition: Stable Is patient prescribed a controlled substance at d/c from ED?: No Referrals: Karthikeyan Pedro MD [Primary Care Provider] - 1-2 days Time of Disposition: 19:42 Decision to Admit Reason: Admit from EC Decision Date: 07/17/18 Decision Time: 19:42
[2018-07-17] MEDS ORDERED: diphenhydrAMINE 50 MG/ML 1 ML VIAL IVP STA (16:25)
[2018-07-17] MEDS ORDERED: LORazepam 2 MG/ML INJ IV STA (16:25)
[2018-07-17 16:45] LABS: Anisocytosis Slight; Basophils % (A) 0 %; Eosinophils # (A) 0.2 k/uL (0-0.7); Eosinophils % (A) 2 %; HCT 47.6 % (34.0-46.0); HGB 15.4 gm/dL (11.4-16.0); Lymphocytes # (A) 1.9 k/uL (1.0-4.8); Lymphocytes % (A) 22 %; MCH 26.7 pg (25.0-35.0); MCHC 32.4 g/dL (31.0-37.0); MCV 82.4 fL (80.0-100.0); Monocytes # (A) 0.4 k/uL (0-1.0); Monocytes % (A) 4 %; Neutrophils # (A) 6.1 k/uL (1.3-7.7); Neutrophils % (A) 71 %; Platelet Count 406 k/uL (150-450); RBC 5.77 m/uL (3.80-5.40); RDW 16.4 % (11.5-15.5); WBC 8.7 k/uL (3.8-10.6)
[2018-07-17] MEDS ORDERED: HYDROmorphone 0.5 MG/0.5 ML SYRINGE IVP STA ×2 (16:57→19:33)
[2018-07-17 16:58] LABS: ALT 219 U/L (9-52); AST 55 U/L (14-36); Albumin 4.8 g/dL (3.5-5.0); Alkaline Phosphatase 227 U/L (38-126); Amylase 55 U/L (30-110); Anion Gap 10 mmol/L; Blood Urea Nitrogen 12 mg/dL (7-17); Calcium 10.4 mg/dL (8.4-10.2); Carbon Dioxide 20 mmol/L (22-30); Chloride 114 mmol/L (98-107); Glucose 94 mg/dL (74-99); Lipase 41 U/L (23-300); Potassium 4.2 mmol/L (3.5-5.1); Sodium 144 mmol/L (137-145); Total Bilirubin 0.4 mg/dL (0.2-1.3); Total Protein 7.8 g/dL (6.3-8.2)
[2018-07-17] MEDS ORDERED: SODIUM CHLORIDE 0.9% 500 ML 500 ML IV ONE (18:59)
--- NOTE | 2018-07-17 19:12 | CT ---
EXAMINATION TYPE: CT abdomen pelvis w con DATE OF EXAM: 07/17/2018 HISTORY: V/n, pain x3 days. Hx multiple PE CT DLP: 1482.9mGycm Automated Exposure Control for Dose Reduction was Utilized. CONTRAST: CT scan of the abdomen and pelvis is performed without oral but with IV Contrast, patient injected wi th 100 mL of Isovue 370. COMPARISON: CT abdomen and pelvis from May 09, 2018 FINDINGS: LUNG BASES: Please refer to same day CTA chest report for complete details on the lung bases. LIVER/GB: Cholecystectomy clips are redemonstrated. PANCREAS: No significant abnormality is seen. SPLEEN: No significant abnormality is seen. ADRENALS: No significant abnormality is seen. KIDNEYS: No significant abnormality is seen. BOWEL: Evaluation bowel is suboptimal secondary to lack of enteric contrast. Surgical clips gastric a ntral level are redemonstrated near axial image 26. There is new linear hyperdensity or surgical sutu res near gastric fundus axial image 17 felt present. There is left-sided jejunostomy tube anteriorly redemonstrated. There is no suspicious small or large bowel dilatation. There are surgical sutures in ferior to jejunostomy tube again seen. UTERUS/ADNEXA: Metallic IUD centrally in anteverted uterus is redemonstrated. LYMPH NODES: No greater than 1cm abdominal or pelvic lymph nodes are appreciated. OSSEOUS STRUCTURES: No significant abnormality is seen. OTHER: Nonspecific soft tissue nodules anterior pelvic wall more prominent left of midline near axial image 65 for reference are new from prior study, should be correlated clinically. Differential inclu omar hematoma if recent trauma. Injection granulomas if recent injections at this level. Other etiolog ies not excluded. IMPRESSION: No bowel obstruction. Soft tissue nodules anterior abdominal wall of the pelvis more prom inent left of midline as detailed above otherwise no new or acute findings are identified.
--- NOTE | 2018-07-17 19:15 | CT ---
EXAMINATION TYPE: CT chest angio for PE DATE OF EXAM: 07/17/2018 COMPARISON: CTA chest October 23, 2017 HISTORY: Chest pain, SOB. Hx multiple PE CT DLP: 1482.9 mGycm. Automated Exposure Control for Dose Reduction was Utilized. CONTRAST: CTA scan of the thorax is performed with IV Contrast, patient injected with 100 mL of Isovue 370, pul monary embolism protocol. MIP Images are created on CT scanner and reviewed. FINDINGS: Exam noted suboptimal due to respiratory motion artifact degradation which limits evaluatio n particularly for subcentimeter nodularity. LUNGS: The lungs are grossly clear, there is no concerning parenchymal mass identified. No suspicious focal consolidation is seen There is no pleural effusion or pneumothorax seen. The tracheobronchi al tree is patent. MEDIASTINUM: There is suboptimal bolus with heterogeneity and near equal contrast right and left hear t systems, there is no central pulmonary embolism, smaller segmental and subsegmental PE cannot be en tirely excluded on this exam. There are no greater than 1 cm hilar or mediastinal lymph nodes. Cardi ac silhouette size is stable and upper limits of normal. No significant pericardial effusion. OTHER: Please refer to same day CT abdomen and pelvis report for complete details on the upper abdome n. IMPRESSION: 1. Suboptimal study without CT evidence for central pulmonary embolism, smaller segmental and subsegm ental PE are not entirely excluded on this study. 2. Suboptimal study without new acute pulmonary process clearly seen.
[2018-07-17] MEDS ORDERED: NALOXONE 0.4 MG/ML 1 ML VIAL IV PRN (19:43)
[2018-07-17] MEDS ORDERED: LORazepam 2 MG/ML INJ IV PRN (19:53)
[2018-07-17 20:24] LABS: Appearance,Urine Clear (Clear); Bilirubin,Urine Negative (Negative); Blood,Urine Large (Negative); Color,Urine Yellow; Glucose,Urine (UA) Negative (Negative); Ketones,Urine Trace (Negative); Leukocyte Esterase,Urine Trace (Negative); Mucus,Urine Rare /hpf; Nitrite,Urine Negative (Negative); Protein,Urine Trace (Negative); RBC,Urine 147 /hpf (0-5); Specific Gravity,Urine >1.050 (1.001-1.035); Squamous Epithelial Cell,Urine 4 /hpf (0-4); Urobilinogen,Urine <2.0 mg/dL (<2.0); WBC,Urine 8 /hpf (0-5)
[2018-07-17] MEDS: SODIUM CHLORIDE 0.9% 1,000 ML IV SCH (20:32)
--- NOTE | 2018-07-17 21:08 | US ---
EXAMINATION TYPE: US abdomen limited DATE OF EXAM: 07/17/2018 COMPARISON: CT abdomen and pelvis earlier today CLINICAL HISTORY: RUQ. Pain, nausea and vomiting. EXAM MEASUREMENTS: Liver Length: 16.7 cm Gallbladder Wall: Surgically absent cm CBD: 0.3 cm Right Kidney: 9.6 x 4.1 x 4.6 cm Pancreas: Obscured by bowel gas Liver: wnl Gallbladder: Surgically absent Evidence for sonographic Auguste's sign: No CBD: wnl Right Kidney: wnl Pancreas is suboptimally seen on images saved secondary to shadowing from overlying bowel gas but dwayne eared within normal limits on CT one hour earlier. Visualized liver is slightly heterogeneously hyper echoic without focal mass or ductal dilatation. Gallbladder is surgically absent. Limited images righ t kidney show no gross hydronephrosis. No ascites is evident. IMPRESSION: Postcholecystectomy changes redemonstrated. No acute findings identified.
--- NOTE | 2018-07-17 22:03 | P.HPIM ---
History of Present Illness H&P Date: 07/17/18 The patient is a 38 yo F with a PMH of idiopathic gastroparesis (dx 5 years ago), nutrition via J-tube and previously TPN via PICC line, hx of PE and LUE DVT (failed Xarelto -- currently on Lovenox), and hypothyroidism presented to the ED due to abdominal pain, nausea, and dry heaving for the past 48 hours. The patient reports multiple admissions in the past due to similar episodes which normally resolve spontaneously with IV fluids and control of her nausea. She reports the pain as an 8/10 at maximum intensity, epigastric, w/ radiation to the back, and associated nausea and dry heaving. The patient reports not using her tube feeds since the onset of her symptoms since that worsens her nausea. She otherwise denied chest pain, SOB, diarrhea, black/tarry stools, fever, chills, or cough. She did endorse noticing some decreased exercise tolerance at home prior to presentation with climbing stairs though reported that this has happened in the past prior to her episodes due to dehydration and overall feeling ill. Of note, the patient is part a study at [facility] for Gastroporesis where she is receiving Propulsid (Cisapride), a promotility agent which was previously removed from the market due to prolonged QT and arrythmias. The patient has thereby been advised to avoid all agents that may prolong her QT-interval. The patient underwent an extensive evaluation in the ED w/ Chest CTA negative for PE and Abd/Pelvis CT w/ contrast unremarkable. Troponin < 0.012, WBC 15.4, AST 55, ALT 219, and Alk Phos 227. The patient Review of Systems Pertinent positives and negatives as discussed in HPI, a complete review of systems was performed and all other systems are negative. Past Medical History Past Medical History: GERD/Reflux, Pulmonary Embolus (PE), Thyroid Disorder Additional Past Medical History / Comment(s): Idiopathic gastroparesis, takes little in orally-has J tube for feedings and Piccs for TPN, bacteremia/picc line, R pulmonary embolism, pancreatitis, hypothyroid, chronic anemia, sinus problems, migraine History of Any Multi-Drug Resistant Organisms: None Reported Past Surgical History: Section, Cholecystectomy, Hernia Repair, Tonsillectomy Additional Past Surgical History / Comment(s): Picc lines with last one placed 04/2018, gastric pacer with removal, J tube, x3, 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 Past Anesthesia/Blood Transfusion Reactions: No Reported Reaction Past Psychological History: Depression Smoking Status: Never smoker Past Alcohol Use History: None Reported Past Drug Use History: None Reported - Past Family History Father Family Medical History: Hypertension Additional Family Medical History / Comment(s): DAD IS 56 AND IN [facility] Mother Additional Family Medical History / Comment(s): MOM IS 56 AND IN [place] [facility] Medications and Allergies Home Medications Medication Instructions Recorded Confirmed Type Lansoprazole [Prevacid] 30 mg PO BID 02/02/18 07/17/18 History Montelukast Chew [Singulair] 10 mg PO DAILY 02/02/18 07/17/18 History Linaclotide [Linzess] 290 mcg PO DAILY 03/10/18 07/17/18 History Topiramate 50 mg PO DAILY 03/10/18 07/17/18 History Thyroid,Pork [Fitting Room Associate Thyroid] 90 mg PO DAILY 04/08/18 07/17/18 History oxyCODONE HCL [oxyCODONE HCL (IR)] 10 mg PO Q6H PRN 05/09/18 07/17/18 History Enoxaparin [Lovenox] 135 mg SQ DAILY 06/29/18 07/17/18 History Propulsid 20 ml PO QID 07/17/18 07/17/18 History Allergies Allergy/AdvReac Type Severity Reaction Status Date / Time prochlorperazine Allergy JITTERY Verified 07/17/18 16:31 [From Compazine] metoclopramide [From Reglan] AdvReac jittery Verified 07/17/18 16:31 Physical Exam Vitals: Vital Signs Temp Pulse Resp BP Pulse Ox 07/17/18 20:34 98.3 F 84 18 116/73 100 07/17/18 19:09 98.3 F 91 18 110/68 100 07/17/18 18:30 88 18 111/65 100 07/17/18 18:00 81 18 113/73 100 07/17/18 15:48 99 F 93 18 143/89 100 Intake and Output 07/17/18 07/17/18 07/17/18 06:59 14:59 22:59 Other: Weight 88.451 kg General: non toxic, no distress, appears at stated age, obese Derm: no unusual rashes/lesions no unusual ecchymoses, warm, dry Head: atraumatic, normocephalic, symmetric Eyes: EOMI, no lid lag, anicteric sclera, pupils equal round reactive to light ENT: Nose and ears atraumatic, no thrush, no pharyngeal erythema Neck: No thyromegaly, no cervical lymphadenopathy, trachea midline, supple Mouth: no lip lesion, mucus membranes moist Cardiovascular: S1S2 reg, no murmur, positive posterior tibial pulse bilateral, no edema, capillary refill less than 2 seconds Lungs: CTA bilateral, no rhonchi, no rales , no accessory muscle use Abdominal: soft, multiple post-surgical scars, mild epigastric tenderness to palpation, no guarding, no appreciable organomegaly, normal bowel sounds, J tube, clamped, clean w/ no surrounding erythema or drainage Ext: no gross muscle atrophy, muscle strength 5 out of 5 in all 4 extremities grossly, no contractures, Neuro: CN II-XI grossly intact, light touch intact all 4 extremities, finger to nose within normal limits, Psych: Alert, oriented, appropriate affect Results CBC & Chem 7: 07/17/18 16:33 07/17/18 16:33 Labs: Abnormal Lab Results - Last 24 Hours (Table) 07/17/18 07/17/18 07/17/18 Range/Units 16:33 16:33 20:10 RBC 5.77 H (3.80-5.40) m/uL Hct 47.6 H (34.0-46.0) % RDW 16.4 H (11.5-15.5) % Chloride 114 H (98-107) mmol/L Carbon Dioxide 20 L (22-30) mmol/L Calcium 10.4 H (8.4-10.2) mg/dL AST 55 H (14-36) U/L ALT 219 H (9-52) U/L Alkaline Phosphatase 227 H (38-126) U/L Ur Specific [place] >1.050 H (1.001-1.035) Urine Protein Trace H (Negative) Urine Ketones Trace H (Negative) Urine Blood Large H (Negative) Ur Leukocyte Esterase Trace H (Negative) Urine RBC 147 H (0-5) /hpf Urine WBC 8 H (0-5) /hpf Urine Mucus Rare H (None) /hpf Assessment and Plan Plan: Abdominal pain, nausea, likely due to gastroparesis -IVFs -NPO -GI consult -Patient reports relief with Benadryl and Ativan in the past for her nausea. Unable to take other commonly used antiemetics since enrolled in study using Propulsid Abnormal LFTs -Abd/Pelvis CT reviewed -Pending abd US Hx of PE and DVT -C/w Lovenox subq Hypothyroidism -Resume home medications DVT//GI prophylaxis -Lovenox -Protonix The patient is admitted with an anticipated less than 2 midnight stay for evalua tion of abdominal pain CODE STATUS:Full Code Discussed with: Patient Anticipated discharge date: 07/18/[address]: Home A total of 35 minutes was spent on the care of this complex patient more than 50% of the time was spent in counseling and care coordination.
[2018-07-17] MEDS: HYDROmorphone 0.5 MG/0.5 ML SYRINGE IVP PRN (23:55)
[2018-07-18] MEDS ORDERED: diphenhydrAMINE 50 MG/ML 1 ML VIAL IVP PRN (01:38)
[2018-07-18] MEDS: HYDROmorphone 0.5 MG/0.5 ML SYRINGE IVP PRN ×5 (05:30→19:42)
[2018-07-18] MEDS: SODIUM CHLORIDE 0.9% 1,000 ML IV SCH ×2 (05:30→23:38)
[2018-07-18 07:16] LABS: Anisocytosis Slight; HCT 42.6 % (34.0-46.0); HGB 13.8 gm/dL (11.4-16.0); Hypochromasia Slight; MCH 27.3 pg (25.0-35.0); MCHC 32.3 g/dL (31.0-37.0); MCV 84.3 fL (80.0-100.0); Mean Platelet Volume 6.6; Platelet Count 391 k/uL (150-450); RBC 5.05 m/uL (3.80-5.40); WBC 7.8 k/uL (3.8-10.6)
[2018-07-18] MEDS ORDERED: PANTOPRAZOLE 40 MG TABLET PO SCH (07:30)
[2018-07-18 07:34] LABS: ALT 148 U/L (9-52); AST 28 U/L (14-36); Albumin 3.9 g/dL (3.5-5.0); Alkaline Phosphatase 164 U/L (38-126); Anion Gap 5 mmol/L; Blood Urea Nitrogen 10 mg/dL (7-17); Calcium 9.6 mg/dL (8.4-10.2); Carbon Dioxide 20 mmol/L (22-30); Chloride 117 mmol/L (98-107); Glucose 83 mg/dL (74-99); Sodium 142 mmol/L (137-145); Total Bilirubin 0.4 mg/dL (0.2-1.3); Total Protein 6.4 g/dL (6.3-8.2)
[2018-07-18] MEDS ORDERED: TOPIRAMATE 25 MG TAB PO SCH (09:00)
[2018-07-18] MEDS ORDERED: NON-FORMULARY DRUG (Linaclotide [Linzess] 290 MCG) PO SCH (09:00)
[2018-07-18] MEDS ORDERED: [UNRECOGNIZED DRUG - OTHER] PO SCH (09:00)
[2018-07-18] MEDS: MONTELUKAST 10 MG TAB PO SCH (09:14)
[2018-07-18] MEDS: LORazepam 2 MG/ML INJ IV PRN ×3 (09:15→21:28)
[2018-07-18] MEDS: diphenhydrAMINE 50 MG/ML 1 ML VIAL IVP PRN ×3 (09:15→21:28)
[2018-07-18] MEDS: ENOXAPARIN 150 MG/ML SYRINGE SQ SCH (09:20)
[2018-07-18] MEDS: [UNRECOGNIZED DRUG - OTHER] PO SCH ×3 (11:12→21:28)
[2018-07-18] MEDS: TOPIRAMATE 50 MG PO SCH (11:13)
--- NOTE | 2018-07-18 13:34 | P.PN ---
Subjective Progress Note Date: 07/18/18 Principal diagnosis: follow up for intractable vomiting Patient seen and examined, continues to report dry heaving and nausea. She is currently nothing by mouth she normally feeds through j-tube. Denies any fevers or chills denies any GI bleeding. Objective - Vital Signs Vital signs: Vital Signs Temp 98.1 F 07/18/18 07:36 Pulse 73 07/18/18 07:36 Resp 16 07/18/18 07:36 BP 103/60 07/18/18 07:36 Pulse Ox 99 07/18/18 07:36 Intake & Output 07/17/18 07/18/18 07/18/18 18:59 06:59 18:59 Intake Total 2750 Balance 2750 Weight 88.451 kg 91.7 kg Intake: Intake, IV Titration 2750 Amount Sodium Chloride 0.9% 1, 750 000 ml @ 75 mls/hr IV . [id number] [facility] Rx#:[id number] Sodium Chloride 0.9% 1, 2000 000 ml @ 999 mls/hr IV . Q1H1M ONE Rx#:[id number] Other: # Voids 2 - Exam Constitutional: vital signs stable, Not in acute distress, pleasant, conversant, patient is obese Lungs: Clear to auscultation bilaterally, clear to percussion, normal respiratory effort no use of accessory muscles Cardiovascular: Regular rate and rhythm, no murmurs, no gallops, no rubs, no pe ripheral edema Gastrointestinal: Soft, scars of multiple surgeries in the past, j-tube in place unremarkable base no erythema and no induration no drainage , no tenderness to palpation, no palpable hepatosplenomegally, bowel sounds positive, no abdominal wall hernias Extremities: No digital cyanosis or clubbing, peripheral pulses palpable and equal over bilateral radial arteries and dorsalis pedis artery, no calf muscle tenderness Psych: Alert, oriented to place, person and time, appropriate affect, intact judgment - Labs CBC & Chem 7: 07/18/18 06:57 07/18/18 06:57 Labs: Abnormal Lab Results - Last 24 Hours (Table) 07/17/18 07/17/18 07/17/18 Range/Units 16:33 16:33 20:10 RBC 5.77 H (3.80-5.40) m/uL Hct 47.6 H (34.0-46.0) % RDW 16.4 H (11.5-15.5) % Chloride 114 H (98-107) mmol/L Carbon Dioxide 20 L (22-30) mmol/L Calcium 10.4 H (8.4-10.2) mg/dL AST 55 H (14-36) U/L ALT 219 H (9-52) U/L Alkaline Phosphatase 227 H (38-126) U/L Ur Specific Max >1.050 H (1.001-1.035) Urine Protein Trace H (Negative) Urine Ketones Trace H (Negative) Urine Blood Large H (Negative) Ur Leukocyte Esterase Trace H (Negative) Urine RBC 147 H (0-5) /hpf Urine WBC 8 H (0-5) /hpf Urine Mucus Rare H (None) /hpf 07/18/18 07/18/18 Range/Units 06:57 06:57 RBC (3.80-5.40) m/uL Hct (34.0-46.0) % RDW 16.0 H (11.5-15.5) % Chloride 117 H (98-107) mmol/L Carbon Dioxide 20 L (22-30) mmol/L Calcium (8.4-10.2) mg/dL AST (14-36) U/L ALT 148 H (9-52) U/L Alkaline Phosphatase 164 H (38-126) U/L Ur Specific Max (1.001-1.035) Urine Protein (Negative) Urine Ketones (Negative) Urine Blood (Negative) Ur Leukocyte Esterase (Negative) Urine RBC (0-5) /hpf Urine WBC (0-5) /hpf Urine Mucus (None) /hpf Assessment and Plan Assessment: 38-year-old female with history of idiopathic gastroparesis status post multiple surgeries in the past 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 Now status post J-tube for feeding. Patient doesn't tolerate any by mouth intake at baseline. Patient also reports history of multiple PEs. For which she is on Lovenox shots chronically due to intolerance of Eliquis. Patient normally goes to [facility] where all her physicians are however this time she was having mild attack in her opinion compared to her severe attacks in the past. For which she thought coming to this hospital to help her get hydrated and control her symptoms of dry heaving and nausea. the patient is part a study at [facility] for Gastroporesis where she is receiving Propulsid (Cisapride), a promotility agent which was previously removed from the market due to prolonged QT and arrythmias. Plan: Intractable nausea and dry heaving, symptomatic control IV fluid hydration Idiopathic gastroparesis of 5 years duration, nothing by mouth Feeding through J-tube currently on hold due to intolerance(patient reports it increases her nausea) Abnormal liver function test slightly elevated transaminases, improving History of multiple PEs continue with Lovenox therapeutic dose History of severe iron deficiency most recent ferritin done in May was 8, recheck ferritin and iron studies DVT prophylaxis currently on therapeutic dose of Lovenox subcu Hypothyroidism on levothyroxine patient is part a study at [facility] for Gastroporesis where she is receiving Propulsid (Cisapride), a promotility agent which was previously removed from the market due to prolonged QT and arrythmias. Avoid all other agents that might prolong QT interval
[2018-07-18 16:00] LABS: Iron Saturation 28.12 (12.00-45.00)
--- NOTE | 2018-07-18 16:00 | P.CONS ---
History of Present Illness - Reason for Consult Consult date: 07/18/18 Nausea vomiting Requesting physician: Kee Dias - Chief Complaint Nausea vomiting - History of Present Illness 38 y/o female with a history of cholecystectomy, severe gastroparesis etiology unclear; [facility] evaluation maintained on cisapride, previous gastric pacemaker subsequently removed secondary to infection, functional bowel disorder with intermittent constipation and diarrhea maintained on Linzess, multiple pulmonary embolisms, constipation, DVT, jejunostomy/TPN, admitted with intractable nausea vomiting abdominal pain. CT abdomen and pelvis no bowel obstruction. Abdominal ultrasound no acute findings. CT chest suboptimal study smaller segmental and subsegmental PE could not be excluded. No new acute pulmonary process clearly seen. White count 8.7. Hemoglobin 15.4. Platelet 406. BUN 12. Creatinine 0.8. Total bilirubin 0.4. AST 28-55. ALT 148-219. AP 164-227. Lipase 41. Receiving Benadryl Linzess Protonix and Propulsid. Self administers her J tube feeds with strict NPO status. Intolerant to Reglan and compazine. Zofran not rec ommended with propulsid. EGD May 2018 at [facility] she reports no acute findings. Review of Systems Constitutional: Denies fever, chills, sweats, weight gain, or loss. HEENT: Negative for migraines, blurred vision or loss, earaches, drainage, tinnitus, oral mucosal lesions, dysphagia, or odynophagia. CARDIAC: Negative for chest pain, arrhythmias, or palpitation. RESPIRATORY: Negative for shortness of breath, hemoptysis, cough, or sputum production. GI: See HPI for pertinent findings. : Negative for hematuria, urgency, frequency, polyuria, or dysuria. GYNc: Denies possibility of . Negative vaginal discharge. MUSCULOSKELETAL: Negative for muscle aches, swelling, arthritis, and arthralgias. NEUROLOGIC: Negative for stroke or TIA. ENDOCRINE: Negative for thyroid problems. SKIN: Negative for rash or itching. PSYCHIATRIC: Negative history for depression and anxiety Past Medical History Past Medical History: GERD/Reflux, Pulmonary Embolus (PE), Thyroid Disorder Additional Past Medical History / Comment(s): Idiopathic gastroparesis, takes little in orally-has J tube for feedings and Piccs for TPN, bacteremia/picc line, R pulmonary embolism, pancreatitis, hypothyroid, chronic anemia, sinus problems, migraine History of Any Multi-Drug Resistant Organisms: None Reported Past Surgical History: Section, Cholecystectomy, Hernia Repair, Tonsillectomy Additional Past Surgical History / Comment(s): Picc lines with last one placed 04/2018, gastric pacer with removal, J tube, x3, 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 Past Anesthesia/Blood Transfusion Reactions: No Reported Reaction Past Psychological History: Depression Smoking Status: Never smoker Past Alcohol Use History: None Reported Past Drug Use History: None Reported - Past Family History Father Family Medical History: Hypertension Additional Family Medical History / Comment(s): DAD IS 56 AND IN [place] [facility] Mother Additional Family Medical History / Comment(s): MOM IS 56 AND IN [place] [facility] Medications and Allergies Home Medications Medication Instructions Recorded Confirmed Type Lansoprazole [Prevacid] 30 mg PO BID 02/02/18 07/17/18 History Montelukast Chew [Singulair] 10 mg PO DAILY 02/02/18 07/17/18 History Linaclotide [Linzess] 290 mcg PO DAILY 03/10/18 07/17/18 History Thyroid,Pork [Linux Programmer Thyroid] 90 mg PO DAILY 04/08/18 07/17/18 History oxyCODONE HCL [oxyCODONE HCL (IR)] 10 mg PO Q6H PRN 05/09/18 07/17/18 History Enoxaparin [Lovenox] 135 mg SQ DAILY 06/29/18 07/17/18 History Propulsid 20 ml PO QID 07/17/18 07/17/18 History Topiramate [Trokendi Xr] 50 mg PO DAILY 07/18/18 07/18/18 History Allergies Allergy/AdvReac Type Severity Reaction Status Date / Time prochlorperazine Allergy JITTERY Verified 07/17/18 16:31 [From Compazine] metoclopramide [From Reglan] AdvReac jittery Verified 07/17/18 16:31 Physical Exam Vitals: Vital Signs Temp Pulse Pulse Resp BP BP Pulse Ox 07/18/18 07:36 98.1 F 73 16 103/60 99 07/18/18 01:15 98.4 F 68 14 112/70 100 07/17/18 21:33 99.1 F 73 15 132/84 100 07/17/18 20:34 98.3 F 84 18 116/73 100 07/17/18 19:09 98.3 F 91 18 110/68 100 07/17/18 18:30 88 18 111/65 100 07/17/18 18:00 81 18 113/73 100 07/17/18 15:48 99 F 93 18 143/89 100 Intake and Output 07/17/18 07/18/18 07/18/18 22:59 06:59 14:59 Intake Total 1000 1750 Balance 1000 1750 Intake: Intake, IV Titration 1000 1750 Amount Sodium Chloride 0.9% 1, 750 000 ml @ 75 mls/hr IV . [id number] [facility] Rx#:[id number] Sodium Chloride 0.9% 1, 1000 1000 000 ml @ 999 mls/hr IV . Q1H1M ONE Rx#:[id number] Other: # Voids 2 Weight 91.7 kg General appearance: The patient is alert, oriented, in no acute distress. HET: Head is normocephalic and atraumatic. Pupils are equal and reactive. Oropharynx is clear without lesions. Neck: Supple without lymphadenopathy. Trachea midline. Heart: S1 S2. Regular rate and rhythm. Lungs: No crackles or wheezes are heard. Abdomen: Soft, nontender, nondistended with bowel sounds. No peritoneal signs. Jtube capped no drainage or tenderness. No palpable organomegaly or masses. Extremities: Normal skin color and turgor. No cyanosis, rash, ulceration, clubbing, or edema. Radial and pedal pulses are 2/4 bilaterally. Neurological: No focal deficits. Strength and sensation are grossly intact. Results CBC & Chem 7: 07/18/18 06:57 07/18/18 06:57 Labs: Abnormal Lab Results - Last 24 Hours (Table) 07/17/18 07/17/18 07/17/18 Range/Units 16:33 16:33 20:10 RBC 5.77 H (3.80-5.40) m/uL Hct 47.6 H (34.0-46.0) % RDW 16.4 H (11.5-15.5) % Chloride 114 H (98-107) mmol/L Carbon Dioxide 20 L (22-30) mmol/L Calcium 10.4 H (8.4-10.2) mg/dL AST 55 H (14-36) U/L ALT 219 H (9-52) U/L Alkaline Phosphatase 227 H (38-126) U/L Ur Specific [place] >1.050 H (1.001-1.035) Urine Protein Trace H (Negative) Urine Ketones Trace H (Negative) Urine Blood Large H (Negative) Ur Leukocyte Esterase Trace H (Negative) Urine RBC 147 H (0-5) /hpf Urine WBC 8 H (0-5) /hpf Urine Mucus Rare H (None) /hpf 07/18/18 07/18/18 Range/Units 06:57 06:57 RBC (3.80-5.40) m/uL Hct (34.0-46.0) % RDW 16.0 H (11.5-15.5) % Chloride 117 H (98-107) mmol/L Carbon Dioxide 20 L (22-30) mmol/L Calcium (8.4-10.2) mg/dL AST (14-36) U/L ALT 148 H (9-52) U/L Alkaline Phosphatase 164 H (38-126) U/L Ur Specific Justin (1.001-1.035) Urine Protein (Negative) Urine Ketones (Negative) Urine Blood (Negative) Ur Leukocyte Esterase (Negative) Urine RBC (0-5) /hpf Urine WBC (0-5) /hpf Urine Mucus (None) /hpf CT scan - abdomen: report reviewed (Dr. Saxena) CT scan - chest: report reviewed (Dr. Saxena) US - abdomen: report reviewed (Dr. Saxena) Assessment and Plan (1) Abdominal pain Narrative/Plan: 38 y/o female with a history of severe gastroparesis chronic dysphagia requiring J tube feeds, with underlying functional bowel disorder maintained on Linzess and cisapride followed by [facility] presents with intractable nausea vomiting abdominal pain. CT chest abdomen and pelvis as well as abdominal ultrasound reported no acute findings. Current Visit: Yes Status: Acute Code(s): R10.9 - UNSPECIFIED ABDOMINAL PAIN SNOMED Code(s): 89441026 (2) Intractable vomiting Current Visit: Yes Status: Acute Code(s): R11.10 - VOMITING, UNSPECIFIED SNOMED Code(s): 575421035 (3) Gastroparesis Current Visit: Yes Status: Chronic Code(s): K31.84 - GASTROPARESIS SNOMED Code(s): 019348776 Plan: 1. Continue with present medical therapy. Patient may self administer her tube feeds as tolerated. Scheduled appointment with [facility] in the next 1-2 weeks. Supportive measures. Thank you for this kind referral and the opportunity to participate in the care of your patient. This consultation was discussed with Dr. Saxena. The impression and plan of care have been directed as dictated.
[2018-07-18] MEDS: Lansoprazole [Prevacid] 30 MG PO SCH (17:30)
[2018-07-18] MEDS ORDERED: DICYCLOMINE 10 MG/ML 2 ML AMP IM STA (17:54)
[2018-07-18] MEDS ORDERED: SCOPOLAMINE 1.5MG/72HR PATCH TRANSDERM STA (17:54)
[2018-07-18] MEDS ORDERED: KETOROLAC 30 MG/ML 1 ML VIAL IVP PRN (18:06)
[2018-07-19] MEDS: HYDROmorphone 0.5 MG/0.5 ML SYRINGE IVP PRN ×9 (00:42→23:06)
[2018-07-19] MEDS: LORazepam 2 MG/ML INJ IV PRN ×4 (03:30→19:38)
[2018-07-19] MEDS: diphenhydrAMINE 50 MG/ML 1 ML VIAL IVP PRN ×4 (03:30→19:38)
[2018-07-19] MEDS: ENOXAPARIN 150 MG/ML SYRINGE SQ SCH (07:57)
[2018-07-19] MEDS: TOPIRAMATE 50 MG PO SCH (07:58)
[2018-07-19] MEDS: [UNRECOGNIZED DRUG - OTHER] PO SCH ×4 (07:58→21:07)
[2018-07-19] MEDS: Lansoprazole [Prevacid] 30 MG PO SCH ×2 (07:58→17:21)
[2018-07-19] MEDS: MONTELUKAST 10 MG TAB PO SCH (07:58)
[2018-07-19 10:10] LABS: ALT 105 U/L (9-52); AST 31 U/L (14-36); Alkaline Phosphatase 151 U/L (38-126); Anion Gap 10 mmol/L; Blood Urea Nitrogen 10 mg/dL (7-17); Calcium 9.3 mg/dL (8.4-10.2); Carbon Dioxide 16 mmol/L (22-30); Chloride 113 mmol/L (98-107); Glucose 61 mg/dL (74-99); Sodium 139 mmol/L (137-145); Total Bilirubin 0.7 mg/dL (0.2-1.3); Total Protein 6.6 g/dL (6.3-8.2)
--- NOTE | 2018-07-19 10:11 | P.PN ---
Subjective Progress Note Date: 07/19/18 Principal diagnosis: Nausea vomiting abdominal pain Increased nausea tonight with multiple episodes of dry heaves. Generalized abdominal discomfort. Afebrile. No bleeding. Scopolamine patch spell often shower. Patient did not initiate J tube feeds. Objective - Vital Signs Vital signs: Vital Signs Temp 98.1 F 07/19/18 07:00 Pulse 74 07/19/18 07:00 Resp 16 07/19/18 07:00 BP 125/75 07/19/18 07:00 Pulse Ox 99 07/19/18 07:00 Intake & Output 07/18/18 07/19/18 07/19/18 18:59 06:59 18:59 Output Total 600 Balance -600 Output: Urine 600 - Exam General appearance: The patient is alert, oriented, in no acute distress. HET: Head is normocephalic and atraumatic. Pupils are equal and reactive. Oropharynx is clear without lesions. Neck: Supple without lymphadenopathy. Trachea midline. Heart: S1 S2. Regular rate and rhythm. Lungs: No crackles or wheezes are heard. Abdomen: Soft, generalized soreness J-tube intact without erythema or drainage, nondistended with bowel sounds. No peritoneal signs. No palpable organomegaly or masses. Extremities: Normal skin color and turgor. No cyanosis, rash, ulceration, club lizz, or edema. Radial and pedal pulses are 2/4 bilaterally. Neurological: No focal deficits. Strength and sensation are grossly intact. - Labs CBC & Chem 7: 07/18/18 06:57 07/18/18 06:57 Assessment and Plan (1) Abdominal pain Narrative/Plan: 38 y/o female with a history of severe gastroparesis chronic dysphagia requiring J tube feeds, with underlying functional bowel disorder maintained on Linzess and cisapride followed by [facility] presents with intractable nausea vomiting abdominal pain. CT chest abdomen and pelvis as well as abdominal ultrasound reported no acute findings. Current Visit: Yes Status: Acute Code(s): R10.9 - UNSPECIFIED ABDOMINAL PAIN SNOMED Code(s): 85997971 (2) Intractable vomiting Current Visit: Yes Status: Acute Code(s): R11.10 - VOMITING, UNSPECIFIED SNOMED Code(s): 058480185 (3) Gastroparesis Current Visit: Yes Status: Chronic Code(s): K31.84 - GASTROPARESIS SNOMED Code(s): 754680320 Plan: 1. We'll reorder scopolamine patch. Patient will initiate her on J feeds when she feels she is ready. Continue the IV hydration continue present medical therapy. We'll continue to follow. Assessment and plan a care discussed with Dr. Saxena
[2018-07-19 10:15] LABS: Potassium 4.1 mmol/L (3.5-5.1)
[2018-07-19] MEDS: LACTATED RINGERS 1,000 ML IV SCH ×2 (10:49→19:39)
--- NOTE | 2018-07-19 11:11 | P.PN ---
Subjective Progress Note Date: 07/19/18 Principal diagnosis: follow up for intractable vomiting and nausea Patient seen and examined, continues to report dry heaving , nausea, and vomiting at times (stomach fluids , non bloody , non bilious) . She is currently nothing by mouth she normally feeds through j-tube but even this she is not tolerating and increasing her nausea Denies any fevers or chills denies any GI bleeding. Objective - Vital Signs Vital signs: Vital Signs Temp 98.1 F 07/19/18 07:00 Pulse 74 07/19/18 07:00 Resp 16 07/19/18 07:00 BP 125/75 07/19/18 07:00 Pulse Ox 99 07/19/18 07:00 Intake & Output 07/18/18 07/19/18 07/19/18 18:59 06:59 18:59 Output Total 600 Balance -600 Output: Urine 600 - Exam Constitutional: vital signs stable, Not in acute distress, pleasant, conversant, patient is obese Lungs: Clear to auscultation bilaterally, clear to percussion, normal respiratory effort no use of accessory muscles Cardiovascular: Regular rate and rhythm, no murmurs, no gallops, no rubs, no peripheral edema Gastrointestinal: Soft, lax, scars of multiple surgeries in the past, j-tube in place unremarkable base no erythema and no induration no drainage , no tenderness to palpation, bowel sounds positive Extremities: No digital cyanosis or clubbing, peripheral pulses palpable and equal over bilateral radial arteries and dorsalis pedis artery, no calf muscle tenderness Psych: Alert, oriented to place, person and time, appropriate affect, intact judgment - Labs CBC & Chem 7: 07/18/18 06:57 07/19/18 09:30 Labs: Abnormal Lab Results - Last 24 Hours (Table) 07/19/18 Range/Units 09:30 Chloride 113 H (98-107) mmol/L Carbon Dioxide 16 L (22-30) mmol/L Glucose 61 L (74-99) mg/dL ALT 105 H (9-52) U/L Alkaline Phosphatase 151 H (38-126) U/L Assessment and Plan Assessment: 38-year-old female with history of idiopathic gastroparesis status post multiple surgeries in the past 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 Now status post J-tube for feeding. Patient doesn't tolerate any by mouth intake at baseline. Patient also reports history of multiple PEs. For which she is on Lovenox shots chronically due to intolerance of Eliquis. Patient normally goes to [facility] where all her physicians are however this time she was having mild attack in her opinion compared to her severe attacks in the past. For which she thought coming to this hospital to help her get hydrated and control her symptoms of dry heaving and nausea. the patient is part a study at [facility] for Gastroporesis where she is receiving Propulsid (Cisapride), a promotility agent which was previously removed from the market due to prolonged QT and arrythmias. 07/18 patient is still reporting nausea and vomiting at times, not tolerating J- tube feeding. labs reviewed and her liver enzymes are improving , she is showing mild hyperchloremic acidosis , will switch to lactated ringer, continue with pain and symptomatic control. no immediate intervention is recommended by GI, who recommended that she follows up with GI service at [facility]. continue supportive care until she is asymptomatic and tolerates her Jtube feeding Plan: Intractable nausea and dry heaving, symptomatic control, IV fluid hydration Idiopathic gastroparesis of 5 years duration, nothing by mouth Feeding through J-tube currently on hold due to intolerance(patient reports it increases her nausea), she can resume whenever she can tolerate Abnormal liver function test slightly elevated transaminases, improving, Liver US unremarkable History of multiple PEs continue with Lovenox therapeutic dose History of severe iron deficiency most recent ferritin done in May was 8, recheck ferritin and iron studies reflects normal levels without any evidence of iron deficiency at this time DVT prophylaxis currently on therapeutic dose of Lovenox subcu Hypothyroidism on levothyroxine Mild hyperchloremic acidosis 2/2 NS patient is part a study at [facility] for [facility]astroporesis where she is receiving Propulsid (Cisapride), a promotility agent which was previously removed from the market due to prolonged QT and arrythmias. Avoid all other agents that might prolong QT interval plan today increase pain control switch IV fluids to lactated ringer, due to mild hyperchloremic acidosis 2/2 NS iron studies unremarkable liver enzymes improving , liver US unremarkable continue supportive care, J tube feeding when tolerated OP follow up with GI at [facility] upon discharge anticipated discharge in 24-48 hours to home
[2018-07-19] MEDS: SCOPOLAMINE 1.5MG/72HR PATCH TRANSDERM SCH (11:30)
[2018-07-20] MEDS: diphenhydrAMINE 50 MG/ML 1 ML VIAL IVP PRN ×4 (01:11→19:00)
[2018-07-20] MEDS: LORazepam 2 MG/ML INJ IV PRN ×4 (01:11→18:59)
[2018-07-20] MEDS: HYDROmorphone 0.5 MG/0.5 ML SYRINGE IVP PRN ×9 (01:12→22:31)
[2018-07-20] MEDS: LACTATED RINGERS 1,000 ML IV SCH ×3 (03:14→19:00)
[2018-07-20] MEDS: TOPIRAMATE 50 MG PO SCH (07:09)
[2018-07-20] MEDS: [UNRECOGNIZED DRUG - OTHER] PO SCH ×4 (07:10→22:30)
[2018-07-20] MEDS: MONTELUKAST 10 MG TAB PO SCH (07:13)
[2018-07-20] MEDS: Lansoprazole [Prevacid] 30 MG PO SCH ×2 (07:26→18:06)
[2018-07-20] MEDS: ENOXAPARIN 150 MG/ML SYRINGE SQ SCH (07:26)
[2018-07-20 09:25] LABS: Chloride 109 mmol/L (98-107)
[2018-07-20 09:27] LABS: Anion Gap 8 mmol/L; Blood Urea Nitrogen 8 mg/dL (7-17); Calcium 9.3 mg/dL (8.4-10.2); Carbon Dioxide 20 mmol/L (22-30); Glucose 53 mg/dL (74-99); Sodium 137 mmol/L (137-145)
[2018-07-20 12:43] LABS: Glucose,Whole Blood 71 mg/dL (75-99)
[2018-07-20 13:24] LABS: ALT 87 U/L (9-52); AST 20 U/L (14-36); Albumin 3.7 g/dL (3.5-5.0); Alkaline Phosphatase 150 U/L (38-126); Amylase 53 U/L (30-110); Bilirubin, Delta 0.2 mg/dL (0.0-0.2); Bilirubin,Unconjugated 0.2 mg/dL (0.0-1.1); Lipase 48 U/L (23-300); Total Bilirubin 0.4 mg/dL (0.2-1.3); Total Protein 6.2 g/dL (6.3-8.2)
--- NOTE | 2018-07-20 13:38 | P.PN ---
Subjective Progress Note Date: 07/20/18 Principal diagnosis: Nausea vomiting abdominal pain Not feeling well this morning. Increased abdominal discomfort. Jejunal feeds started a few hours ago. Dry heaves. No bleeding. Passing nonbloody bowel movements. Afebrile. Objective - Vital Signs Vital signs: Vital Signs Temp 98.6 F 07/20/18 13:31 Pulse 73 07/20/18 13:31 Resp 20 07/20/18 13:31 BP 115/71 07/20/18 13:31 Pulse Ox 97 07/20/18 13:31 Intake & Output 07/19/18 07/20/18 07/20/18 18:59 06:59 18:59 Intake Total 1200 Balance 1200 Weight 91.7 kg Intake: Oral 1200 Other: Voiding Method Toilet # Voids 3 1 - Exam General appearance: The patient is alert, oriented, in no acute distress. HET: Head is normocephalic and atraumatic. Pupils are equal and reactive. Oropharynx is clear without lesions. Neck: Supple without lymphadenopathy. Trachea midline. Heart: S1 S2. Regular rate and rhythm. Lungs: No crackles or wheezes are heard. Abdomen: Soft, generalized soreness J-tube intact without erythema or drainage receiving feeds, nondistended with bowel sounds. No peritoneal signs. No palpable organomegaly or masses. Extremities: Normal skin color and turgor. No cyanosis, rash, ulceration, clubbing, or edema. Radial and pedal pulses are 2/4 bilaterally. Neurological: No focal deficits. Strength and sensation are grossly intact. - Labs CBC & Chem 7: 07/18/18 06:57 07/20/18 08:24 Labs: Abnormal Lab Results - Last 24 Hours (Table) 07/20/18 07/20/18 Range/Units 08:24 12:41 Chloride 109 H (98-107) mmol/L Carbon Dioxide 20 L (22-30) mmol/L Glucose 53 L (74-99) mg/dL POC Glucose (mg/dL) 71 L (75-99) mg/dL ALT 87 H (9-52) U/L Alkaline Phosphatase 150 H (38-126) U/L Total Protein 6.2 L (6.3-8.2) g/dL Assessment and Plan (1) Abdominal pain Narrative/Plan: 38 y/o female with a history of severe gastroparesis chronic dysphagia requiring J tube feeds, with underlying functional bowel disorder maintained on Linzess and cisapride followed by [facility] presents with intractable nausea vomiting abdominal pain. CT chest abdomen and pelvis as well as abdominal ultrasound reported no acute findings. Current Visit: Yes Status: Acute Code(s): R10.9 - UNSPECIFIED ABDOMINAL PAIN SNOMED Code(s): 68080954 (2) Intractable vomiting Current Visit: Yes Status: Acute Code(s): R11.10 - VOMITING, UNSPECIFIED SNOMED Code(s): 157678218 (3) Gastroparesis Current Visit: Yes Status: Chronic Code(s): K31.84 - GASTROPARESIS SNOMED Code(s): 022676149 Plan: 1. Continue symptomatic supportive measures. Continue J feeds. Hepatic function panel amylase lipase requested. Continue the IV hydration continue present medical therapy. We'll continue to follow. Assessment and plan a care discussed with Dr. Saxena
--- NOTE | 2018-07-20 15:42 | P.PN ---
Subjective Progress Note Date: 07/20/18 Principal diagnosis: follow up for intractable vomiting and nausea Patient seen and examined, continues to reports nausea and vomiting, but improving, she would like to try tube feeding today , see if she can tolerate that , she claims it still increases her nausea. will try at a slower rate today . denies any diarrhea or GI bleeidng , fever or chills. Objective - Vital Signs Vital signs: Vital Signs Temp 98.6 F 07/20/18 13:31 Pulse 73 07/20/18 13:31 Resp 20 07/20/18 13:31 BP 115/71 07/20/18 13:31 Pulse Ox 97 07/20/18 13:31 Intake & Output 07/19/18 07/20/18 07/20/18 18:59 06:59 18:59 Intake Total 1200 Balance 1200 Weight 91.7 kg Intake: Oral 1200 Other: Voiding Method Toilet # Voids 3 1 - Exam Constitutional: vital signs stable, Not in acute distress, pleasant, conversant, patient is obese Lungs: Clear to auscultation bilaterally, clear to percussion, normal respiratory effort no use of accessory muscles Cardiovascular: Regular rate and rhythm, no murmurs, no gallops, no rubs, no peripheral edema Gastrointestinal: Soft, lax, scars of multiple surgeries in the past, j-tube in place clean base, bowel sounds positive Extremities: peripheral pulses palpable and equal over bilateral radial arteries and dorsalis pedis artery, no calf muscle tenderness Psych: Alert, oriented to place, person and time, appropriate affect, intact judgment - Labs CBC & Chem 7: 07/18/18 06:57 07/20/18 08:24 Labs: Abnormal Lab Results - Last 24 Hours (Table) 07/20/18 07/20/18 Range/Units 08:24 12:41 Chloride 109 H (98-107) mmol/L Carbon Dioxide 20 L (22-30) mmol/L Glucose 53 L (74-99) mg/dL POC Glucose (mg/dL) 71 L (75-99) mg/dL ALT 87 H (9-52) U/L Alkaline Phosphatase 150 H (38-126) U/L Total Protein 6.2 L (6.3-8.2) g/dL Assessment and Plan Assessment: 38-year-old female with history of idiopathic gastroparesis status post multiple surgeries in the past 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 Now status post J-tube for feeding. Patient doesn't tolerate any by mouth intake at baseline. Patient also reports history of multiple PEs. For which she is on Lovenox shots chronically due to intolerance of Eliquis. Patient normally goes to [facility] where all her physicians are however this time she was having mild attack in her opinion compared to her s evere attacks in the past. For which she thought coming to this hospital to help her get hydrated and control her symptoms of dry heaving and nausea. the patient is part a study at [facility] for Gastroporesis where she is receiving Propulsid (Cisapride), a promotility agent which was previously removed from the market due to prolonged QT and arrythmias. 07/18 patient is still reporting nausea and vomiting at times, not tolerating J- tube feeding. labs reviewed and her liver enzymes are improving , she is showing mild hyperchloremic acidosis , will switch to lactated ringer, continue with pain and symptomatic control. no immediate intervention is recommended by GI, who recommended that she follows up with GI service at [facility]. continue supportive care until she is asymptomatic and tolerates her Jtube feeding 07/20 patient with underlying functional bowel disorder maintained on Linzess and cisapride followed by [facility], patient still reporting nausea and vomiting and abd discomfort all workup and labs are unremarkable. She is willing to try to J-tube feeding today seeking can tolerate that I suggested to do it at a slower rate. Denies any fevers or chills. We'll continue to monitor with supportive care. If she tolerates G-tube feeding patient will be discharged home Mild hyperchloremic acidosis yesterday patient was switched to lactated Ringer normal saline discontinued. Today labs showing improvement in her bicarb up to 20 and hyperchloremia is trending down continue with supportive care and lactated Ringer today Plan: Intractable nausea and dry heaving, symptomatic control, IV fluid hydration Idiopathic gastroparesis of 5 years duration, nothing by mouth Feeding through J-tube currently on hold due to intolerance(patient reports it increases her nausea), she can resume whenever she can tolerate Abnormal liver function test slightly elevated transaminases, improving, Liver US unremarkable History of multiple PEs continue with Lovenox therapeutic dose History of severe iron deficiency most recent ferritin done in May was 8, recheck ferritin and iron studies reflects normal levels without any evidence of iron deficiency at this time DVT prophylaxis currently on therapeutic dose of Lovenox subcu Hypothyroidism on levothyroxine Mild hyperchloremic acidosis 2/2 NS patient was switched to LR, now improving patient is part a study at [facility] for Gastroporesis where she is receiving Propulsid (Cisapride), a promotility agent which was previously removed from the market due to prolonged QT and arrythmias. Avoid all other agents that might prolong QT interval plan today Trial of J-tube feeding at slower rate than which she doesn't baseline CT she tolerates Continue with pain control Continue IV fluids to lactated ringer, hyperchloremia and acidosis are improving with lactated Ringer iron studies unremarkable liver enzymes improving , liver US unremarkable OP follow up with GI at [facility] upon discharge anticipated discharge tomorrow Insurance denied patient and patient's status. She continues to be under observation. Notified insurance for peer to peer review, await call back Lenin [phone] for peer to peer, I left a message to call back
[2018-07-20 17:03] LABS: Glucose,Whole Blood 70 mg/dL (75-99)
[2018-07-20 21:18] LABS: Glucose,Whole Blood 84 mg/dL (75-99)
[2018-07-21] MEDS: diphenhydrAMINE 50 MG/ML 1 ML VIAL IVP PRN ×5 (00:48→20:44)
[2018-07-21] MEDS: HYDROmorphone 0.5 MG/0.5 ML SYRINGE IVP PRN ×10 (00:48→21:56)
[2018-07-21] MEDS: LORazepam 2 MG/ML INJ IV PRN ×5 (00:48→20:45)
[2018-07-21] MEDS: LACTATED RINGERS 1,000 ML IV SCH ×3 (03:28→17:38)
[2018-07-21 06:59] LABS: Glucose,Whole Blood 91 mg/dL (75-99)
[2018-07-21] MEDS: Lansoprazole [Prevacid] 30 MG PO SCH ×2 (07:15→16:36)
[2018-07-21] MEDS: MONTELUKAST 10 MG TAB PO SCH (07:15)
[2018-07-21] MEDS: TOPIRAMATE 50 MG PO SCH (08:23)
[2018-07-21] MEDS: [UNRECOGNIZED DRUG - OTHER] PO SCH ×4 (08:23→21:01)
[2018-07-21] MEDS: ENOXAPARIN 150 MG/ML SYRINGE SQ SCH (08:24)
[2018-07-21 09:25] LABS: ALT 62 U/L (9-52); AST 27 U/L (14-36); Albumin 3.8 g/dL (3.5-5.0); Alkaline Phosphatase 122 U/L (38-126); Anion Gap 8 mmol/L; Blood Urea Nitrogen 10 mg/dL (7-17); Calcium 9.3 mg/dL (8.4-10.2); Carbon Dioxide 23 mmol/L (22-30); Chloride 107 mmol/L (98-107); Glucose 86 mg/dL (74-99); Sodium 138 mmol/L (137-145); Total Bilirubin 0.6 mg/dL (0.2-1.3); Total Protein 6.4 g/dL (6.3-8.2)
[2018-07-21 09:26] LABS: Potassium 4.2 mmol/L (3.5-5.1)
--- NOTE | 2018-07-21 10:10 | P.PN ---
Subjective Progress Note Date: 07/21/18 Principal diagnosis: Abdominal pain, nausea vomiting Patient was seen and examined. No acute events overnight. Patient continues to complain of abdominal pain, 8 out of 10 in severity. Pain goes down to a 4 out of 10 with Dilaudid injections but returns back when patient has vomiting episodes. Patient reports intractable nausea and vomiting, 8 episodes yesterday. J-tube feeds running at 30 mL an hour. Patient denies any chest pain, shortness of breath or palpitations. Objective - Vital Signs Vital signs: Vital Signs Temp 98.7 F 07/21/18 07:00 Pulse 72 07/21/18 07:00 Resp 16 07/21/18 08:00 BP 121/79 07/21/18 07:00 Pulse Ox 97 07/21/18 07:00 Intake & Output 07/20/18 07/21/18 07/21/18 18:59 06:59 18:59 Intake Total 300 180 Balance 300 180 Weight 91.7 kg Intake: Tube Feeding 180 180 Other 120 Other: Voiding Method Toilet Toilet # Voids 4 1 - Exam General: [non toxic], [mild distress laying in bed], [appears at stated age] Derm: [warm], [dry] Head: [atraumatic], [normocephalic], [symmetric] Eyes: [EOMI], [no lid lag], [anicteric sclera] Mouth: [no lip lesion], [mucus membranes moist] Cardiovascular: [S1S2 reg], [no murmur], [positive DP pulse bilateral] Lungs: [CTA bilateral], [no rhonchi, no rales] , [no accessory muscle use] Abdominal: [soft], [epigastric tenderness palpation without rebound], [no guarding], [no appreciable organomegaly], [J-tube in place] Ext: [no gross muscle atrophy], [no edema], [no contractures] Neuro: [no focal neuro deficits] Psych: [Alert], [oriented], [appropriate affect] - Labs CBC & Chem 7: 07/18/18 06:57 07/21/18 08:45 Labs: Abnormal Lab Results - Last 24 Hours (Table) 07/20/18 07/20/18 07/20/18 Range/Units 08:24 12:41 16:51 Chloride 109 H (98-107) mmol/L Carbon Dioxide 20 L (22-30) mmol/L Glucose 53 L (74-99) mg/dL POC Glucose (mg/dL) 71 L 70 L (75-99) mg/dL ALT 87 H (9-52) U/L Alkaline Phosphatase 150 H (38-126) U/L Total Protein 6.2 L (6.3-8.2) g/dL 07/21/18 Range/Units 08:45 Chloride (98-107) mmol/L Carbon Dioxide (22-30) mmol/L Glucose (74-99) mg/dL POC Glucose (mg/dL) (75-99) mg/dL ALT 62 H (9-52) U/L Alkaline Phosphatase (38-126) U/L Total Protein (6.3-8.2) g/dL Assessment and Plan Assessment: Assessment and Plan Intractable nausea and vomiting Idiopathic gastroparesis Elevated liver enzymes History multiple PE Hypothyroidism Likely secondary to gastroparesis. Change Benadryl and Ativan from every 6 hours to every 4 hours as needed for nausea and vomiting. Pain management with Dilaudid, Toradol, oxycodone. Continue lactated Ringer's at 125 mL per hour. Continue Prevacid. Continue Linaclotide. Continue Propulsid. Elevate head of bed. Continue scopolamine patch. Continue J-tube feeds at 30 mL per hour. Initial CT negative. Amylase and lipase negative. Discussed with GI service, possible repeat CT with contrast to exclude other pathology. Management as above. AST 62. Likely secondary to tube feeds. Liver ultrasound negative. Continue Lovenox 135 mg subcutaneous daily. Continue Synthroid. Will await GI recommendations, possible CT with contrast as per discussion. Patient is pending clinical improvement.
--- NOTE | 2018-07-21 11:39 | P.PN ---
Subjective Progress Note Date: 07/21/18 Principal diagnosis: Nausea vomiting abdominal pain Still reporting midepigastric midabdominal pain. Intermittent dry heaves. Receiving J tube feeds. Afebrile. Transaminases stable improving. Lipase 48. Renal function preserved. Objective - Vital Signs Vital signs: Vital Signs Temp 98.7 F 07/21/18 07:00 Pulse 72 07/21/18 07:00 Resp 16 07/21/18 08:00 BP 121/79 07/21/18 07:00 Pulse Ox 97 07/21/18 07:00 Intake & Output 07/20/18 07/21/18 07/21/18 18:59 06:59 18:59 Intake Total 300 180 Balance 300 180 Weight 91.7 kg Intake: Tube Feeding 180 180 Other 120 Other: Voiding Method Toilet Toilet # Voids 4 1 - Exam General appearance: The patient is alert, oriented, in no acute distress. HET: Head is normocephalic and atraumatic. Pupils are equal and reactive. Oropharynx is clear without lesions. Neck: Supple without lymphadenopathy. Trachea midline. Heart: S1 S2. Regular rate and rhythm. Lungs: No crackles or wheezes are heard. Abdomen: Soft, generalized soreness tenderness across mid abdomen midepigastric region J-tube intact without erythema or drainage receiving feeds, nondistended with bowel sounds. No peritoneal signs. No palpable organomegaly or masses. Extremities: Normal skin color and turgor. No cyanosis, rash, ulceration, clubbing, or edema. Radial and pedal pulses are 2/4 bilaterally. Neurological: No focal deficits. Strength and sensation are grossly intact. - Labs CBC & Chem 7: 07/18/18 06:57 07/21/18 08:45 Labs: Abnormal Lab Results - Last 24 Hours (Table) 07/20/18 07/20/18 07/20/18 Range/Units 08:24 12:41 16:51 Chloride 109 H (98-107) mmol/L Carbon Dioxide 20 L (22-30) mmol/L Glucose 53 L (74-99) mg/dL POC Glucose (mg/dL) 71 L 70 L (75-99) mg/dL ALT 87 H (9-52) U/L Alkaline Phosphatase 150 H (38-126) U/L Total Protein 6.2 L (6.3-8.2) g/dL 07/21/18 Range/Units 08:45 Chloride (98-107) mmol/L Carbon Dioxide (22-30) mmol/L Glucose (74-99) mg/dL POC Glucose (mg/dL) (75-99) mg/dL ALT 62 H (9-52) U/L Alkaline Phosphatase (38-126) U/L Total Protein (6.3-8.2) g/dL Assessment and Plan (1) Abdominal pain Narrative/Plan: 38 y/o female with a history of severe gastroparesis chronic dysphagia requiring J tube feeds, with underlying functional bowel disorder maintained on Linzess and cisapride followed by [facility] presents with intractable nausea vomiting abdominal pain. CT chest abdomen and pelvis as well as abdominal ultrasound reported no acute findings. Current Visit: Yes Status: Acute Code(s): R10.9 - UNSPECIFIED ABDOMINAL PAIN SNOMED Code(s): 42292149 (2) Intractable vomiting Current Visit: Yes Status: Acute Code(s): R11.10 - VOMITING, UNSPECIFIED SNOMED Code(s): 296994354 (3) Gastroparesis Current Visit: Yes Status: Chronic Code(s): K31.84 - GASTROPARESIS SNOMED Code(s): 925965520 Plan: 1. Continue symptomatic supportive measures. Continue J feeds. Repeat CT abdomen and pelvis with oral contrast only advised. Continue the IV hydration continue present medical therapy. We'll continue to follow. Assessment and plan a care discussed with Dr. Saxena
[2018-07-21 11:46] LABS: Glucose,Whole Blood 96 mg/dL (75-99)
[2018-07-21] MEDS ORDERED: IOPAMIDOL-300 CONTRAST 30 ML VIAL (ORAL USE) PO PRN ×2 (13:43→14:26)
[2018-07-21 16:40] LABS: Glucose,Whole Blood 89 mg/dL (75-99)
--- NOTE | 2018-07-21 16:43 | CT ---
EXAMINATION TYPE: CT abdomen pelvis wo con DATE OF EXAM: 07/21/2018 COMPARISON: 07/17/2018 INDICATION: Generalized pain with vomiting DLP: 715.4 mGycm, Automated exposure control for dose reduction was used. CONTRAST: 0 mL of Isovue 300. Study performed with Oral Contrast TECHNIQUE: Axial images were obtained from above the diaphragm to the pubic rami in the axial plane a t 5 mm thick sections. Reconstructed images are reviewed on the computer in the coronal plane. FINDINGS: Limited CT sections are obtained the lung bases. The lung bases are clear. CT ABDOMEN: Postsurgical changes within the stomach are evident. Jejunostomy tube appears to be pres ent left upper quadrant. Liver: Normal Spleen: Normal. Splenule is near the hilum. Pancreas: Normal Adrenal glands: The adrenal glands are normal. Gallbladder: Normal Kidneys: No masses are evident. No hydronephrosis is present. No cysts are present. Delayed images were obtained through the kidneys, which remain unremarkable. Aorta: Vascular calcification is within the aorta. Inferior vena cava: Normal. CT PELVIS: Multiple subcutaneous areas of increased density are present which could be related to sub cutaneous injections. Loops of bowel within the abdomen and pelvis are normal. There are loops of bowel which are incom pletely distended or lack oral contrast limiting their evaluation. No evidence of obstruction is evid ent. Appendix: Normal as visualized. Urinary bladder: Decompressed with limited evaluation Genitourinary structures: Uterus contains an IUD. Adnexal regions appear normal. A small follicle may be on the left ovary. Osseous structures: No suspicious lytic or sclerotic lesions. IMPRESSIONS: 1. Scattered areas of increased density within the subcutaneous tissue up to lower pelvis could be r elated to recent subcutaneous injections. Correlate with the history. 2. No suspicious acute changes CT abdomen pelvis.
[2018-07-22] MEDS: LACTATED RINGERS 1,000 ML IV SCH ×4 (01:00→23:49)
[2018-07-22] MEDS: diphenhydrAMINE 50 MG/ML 1 ML VIAL IVP PRN ×6 (01:18→20:47)
[2018-07-22] MEDS: LORazepam 2 MG/ML INJ IV PRN ×6 (01:18→20:47)
[2018-07-22 01:27] LABS: Glucose,Whole Blood 87 mg/dL (75-99)
[2018-07-22] MEDS: HYDROmorphone 0.5 MG/0.5 ML SYRINGE IVP PRN ×8 (05:07→21:56)
[2018-07-22] MEDS: Lansoprazole [Prevacid] 30 MG PO SCH ×2 (06:36→17:24)
[2018-07-22 06:41] LABS: Glucose,Whole Blood 101 mg/dL (75-99)
[2018-07-22] MEDS ORDERED: WATER FOR INJECTION, STERILE 10 ML IV ONE ×3 (08:44→16:16)
[2018-07-22] MEDS: MONTELUKAST 10 MG TAB PO SCH (08:58)
[2018-07-22] MEDS: ENOXAPARIN 150 MG/ML SYRINGE SQ SCH (08:58)
[2018-07-22] MEDS: TOPIRAMATE 50 MG PO SCH (08:59)
[2018-07-22] MEDS: [UNRECOGNIZED DRUG - OTHER] PO SCH ×3 (08:59→19:46)
[2018-07-22] MEDS: SCOPOLAMINE 1.5MG/72HR PATCH TRANSDERM SCH (09:47)
[2018-07-22 12:02] LABS: Glucose,Whole Blood 94 mg/dL (75-99)
--- NOTE | 2018-07-22 14:19 | P.PN ---
Subjective Progress Note Date: 07/22/18 Principal diagnosis: Gastroparesis, nausea and vomiting Patient seen and examined. No acute events overnight. Patient reports no changes in her abdominal pain. Reports 2-3 episodes of vomiting frothy bilious vomitus over the past 24 hours. Objective - Vital Signs Vital signs: Vital Signs Temp 98.9 F 07/22/18 12:00 Pulse 87 07/22/18 12:00 Resp 18 07/22/18 12:00 BP 118/80 07/22/18 12:00 Pulse Ox 97 07/22/18 12:00 Intake & Output 07/21/18 07/22/18 07/22/18 18:59 06:59 18:59 Weight 85.5 kg Other: Voiding Method Toilet # Voids 1 - Exam General: [non toxic], [mild distress laying in bed], [appears at stated age] Derm: [warm], [dry] Head: [atraumatic], [normocephalic], [symmetric] Eyes: [EOMI], [no lid lag], [anicteric sclera] Mouth: [no lip lesion], [mucus membranes moist] Cardiovascular: [S1S2 reg], [no murmur], [positive DP pulse bilateral] Lungs: [CTA bilateral], [no rhonchi, no rales] , [no accessory muscle use] Abdominal: [soft], [epigastric tenderness palpation without rebound], [no guarding], [no appreciable organomegaly], [J-tube in place] Ext: [no gross muscle atrophy], [no edema], [no contractures] Neuro: [no focal neuro deficits] Psych: [Alert], [oriented], [appropriate affect] - Labs CBC & Chem 7: 07/18/18 06:57 07/21/18 08:45 Labs: Abnormal Lab Results - Last 24 Hours (Table) 07/22/18 Range/Units 06:35 POC Glucose (mg/dL) 101 H (75-99) mg/dL Assessment and Plan Assessment: Assessment and Plan Intractable nausea and vomiting Idiopathic gastroparesis Elevated liver enzymes History multiple PE Hypothyroidism Likely secondary to gastroparesis. Continue Benadryl and Ativan from every 4 hours as needed for nausea and vomiting. Pain management with Dilaudid, Toradol, oxycodone. Continue lactated Ringer's at 125 mL per hour. Continue Prevacid. Continue Linaclotide. Continue Propulsid. Elevate head of bed. Continue scopolamine patch. Continue J-tube feeds at 30 mL per hour. Initial CT negative. Repeat CT negative. Amylase and lipase negative. Follow GI recommendations. Management as above. AST 62. Likely secondary to tube feeds. Liver ultrasound negative. Continue Lovenox 135 mg subcutaneous daily. Continue Synthroid. CT with contrast negative. Patient is pending clinical improvement. Gastroenterology on board.
[2018-07-22 17:28] LABS: Glucose,Whole Blood 74 mg/dL (75-99)
[2018-07-23] MEDS: HYDROmorphone 0.5 MG/0.5 ML SYRINGE IVP PRN ×11 (00:33→22:37)
[2018-07-23] MEDS: LORazepam 2 MG/ML INJ IV PRN ×6 (00:34→22:01)
[2018-07-23] MEDS: diphenhydrAMINE 50 MG/ML 1 ML VIAL IVP PRN ×6 (00:34→22:00)
[2018-07-23] MEDS: [UNRECOGNIZED DRUG - OTHER] PO SCH ×5 (00:35→22:10)
[2018-07-23 00:54] LABS: Glucose,Whole Blood 92 mg/dL (75-99)
[2018-07-23 05:30] LABS: Glucose,Whole Blood 82 mg/dL (75-99)
[2018-07-23] MEDS: LACTATED RINGERS 1,000 ML IV SCH ×3 (07:14→22:40)
[2018-07-23] MEDS: Lansoprazole [Prevacid] 30 MG PO SCH ×2 (07:53→17:44)
[2018-07-23] MEDS ORDERED: WATER FOR INJECTION, STERILE 10 ML IV ONE ×3 (09:16→17:23)
[2018-07-23] MEDS: MONTELUKAST 10 MG TAB PO SCH (09:32)
[2018-07-23] MEDS: TOPIRAMATE 50 MG PO SCH (09:35)
[2018-07-23] MEDS: ENOXAPARIN 150 MG/ML SYRINGE SQ SCH (10:35)
[2018-07-23 11:39] LABS: Glucose,Whole Blood 89 mg/dL (75-99)
[2018-07-23] MEDS: BISACODYL 5 MG TABLET.DR PO PRN (11:45)
[2018-07-23 17:31] LABS: Glucose,Whole Blood 72 mg/dL (75-99)
[2018-07-24 00:34] LABS: Glucose,Whole Blood 86 mg/dL (75-99)
[2018-07-24] MEDS: HYDROmorphone 0.5 MG/0.5 ML SYRINGE IVP PRN ×11 (00:38→22:28)
[2018-07-24] MEDS: diphenhydrAMINE 50 MG/ML 1 ML VIAL IVP PRN ×6 (02:15→22:08)
[2018-07-24] MEDS: LORazepam 2 MG/ML INJ IV PRN ×6 (02:15→22:08)
[2018-07-24 05:56] LABS: Glucose,Whole Blood 81 mg/dL (75-99)
[2018-07-24] MEDS: ENOXAPARIN 150 MG/ML SYRINGE SQ SCH (09:24)
[2018-07-24] MEDS: MONTELUKAST 10 MG TAB PO SCH (09:27)
[2018-07-24] MEDS: Lansoprazole [Prevacid] 30 MG PO SCH ×2 (09:28→17:12)
[2018-07-24] MEDS: TOPIRAMATE 50 MG PO SCH (09:28)
[2018-07-24] MEDS: [UNRECOGNIZED DRUG - OTHER] PO SCH ×4 (09:29→22:20)
[2018-07-24 12:23] LABS: Glucose,Whole Blood 94 mg/dL (75-99)
[2018-07-24] MEDS: LACTATED RINGERS 1,000 ML IV SCH ×3 (12:39→21:09)
[2018-07-24] MEDS ORDERED: WATER FOR INJECTION, STERILE 10 ML IV ONE ×2 (14:18→18:24)
--- NOTE | 2018-07-24 17:16 | P.PN ---
Subjective Progress Note Date: 07/23/18 Principal diagnosis: Nausea, vomiting This is a late entry for 07/23/2018 Patient seen and examined. No acute events overnight. Patient reports no changes in her nausea or vomiting over the last 24 hours. Objective - Vital Signs Vital signs: Vital Signs Temp 98.2 F 07/24/18 16:30 Pulse 83 07/24/18 16:30 Resp 18 07/24/18 16:30 BP 109/68 07/24/18 16:30 Pulse Ox 99 07/24/18 16:30 Intake & Output 07/23/18 07/24/18 07/24/18 18:59 06:59 18:59 Intake Total 300 2160 60 Balance 300 2160 60 Weight 90.1 kg 89.9 kg Intake: Intake, IV Titration 2000 Amount Lactated Ringers 1,000 ml 2000 @ 125 mls/hr IV .Q8H [facility] Rx#:[id number] Oral 240 100 Tube Feeding 60 60 60 Other: Voiding Method Toilet # Voids 1 3 # Bowel Movements 1 # Emeses 1 - Exam General: [non toxic], [mild distress laying in bed], [appears at stated age] Derm: [warm], [dry] Head: [atraumatic], [normocephalic], [symmetric] Eyes: [EOMI], [no lid lag], [anicteric sclera] Mouth: [no lip lesion], [mucus membranes moist] Cardiovascular: [S1S2 reg], [no murmur], [positive DP pulse bilateral] Lungs: [CTA bilateral], [no rhonchi, no rales] , [no accessory muscle use] Abdominal: [soft], [epigastric tenderness palpation without rebound], [no guarding], [no appreciable organomegaly], [J-tube in place] Ext: [no gross muscle atrophy], [no edema], [no contractures] Neuro: [no focal neuro deficits] Psych: [Alert], [oriented], [appropriate affect] - Labs CBC & Chem 7: 07/18/18 06:57 07/21/18 08:45 Labs: Abnormal Lab Results - Last 24 Hours (Table) 07/23/18 Range/Units 17:29 POC Glucose (mg/dL) 72 L (75-99) mg/dL Assessment and Plan Assessment: Assessment and Plan Intractable nausea and vomiting Idiopathic gastroparesis Elevated liver enzymes History multiple PE Hypothyroidism Likely secondary to gastroparesis. Continue Benadryl and Ativan from every 4 hours as needed for nausea and vomiting. Pain management with Dilaudid, Toradol, oxycodone. Continue lactated Ringer's at 125 mL per hour. Continue Prevacid. Continue Linaclotide. Continue Propulsid. Elevate head of bed. Continue scopolamine patch. Continue J-tube feeds at 30 mL per hour. Initial CT negative. Repeat CT negative. Amylase and lipase negative. Follow GI recommendations. Management as above. AST 62. Likely secondary to tube feeds. Liver ultrasound negative. Continue Lovenox 135 mg subcutaneous daily. Continue Synthroid. CT with contrast negative. Patient is pending clinical improvement. Gastroenterology on board.
--- NOTE | 2018-07-24 17:18 | P.PN ---
Subjective Progress Note Date: 07/24/18 Principal diagnosis: Nausea, vomiting Patient was seen and examined. No acute events overnight. Patient requesting midline and replacement of her current peripheral IV line due to discomfort. She reports no changes in her nausea or vomiting over the last 48 hours. Objective - Vital Signs Vital signs: Vital Signs Temp 98.2 F 07/24/18 16:30 Pulse 83 07/24/18 16:30 Resp 18 07/24/18 16:30 BP 109/68 07/24/18 16:30 Pulse Ox 99 07/24/18 16:30 Intake & Output 07/23/18 07/24/18 07/24/18 18:59 06:59 18:59 Intake Total 300 2160 60 Balance 300 2160 60 Weight 90.1 kg 89.9 kg Intake: Intake, IV Titration 2000 Amount Lactated Ringers 1,000 ml 2000 @ 125 mls/hr IV .Q8H [facility] Rx#:[id number] Oral 240 100 Tube Feeding 60 60 60 Other: Voiding Method Toilet # Voids 1 3 # Bowel Movements 1 # Emeses 1 - Exam General: [non toxic], [mild distress laying in bed], [appears at stated age] Derm: [warm], [dry] Head: [atraumatic], [normocephalic], [symmetric] Eyes: [EOMI], [no lid lag], [anicteric sclera] Mouth: [no lip lesion], [mucus membranes moist] Cardiovascular: [S1S2 reg], [no murmur], [positive DP pulse bilateral] Lungs: [CTA bilateral], [no rhonchi, no rales] , [no accessory muscle use] Abdominal: [soft], [epigastric tenderness palpation without rebound], [no gua rding], [no appreciable organomegaly], [J-tube in place] Ext: [no gross muscle atrophy], [no edema], [no contractures] Neuro: [no focal neuro deficits] Psych: [Alert], [oriented], [appropriate affect] - Labs CBC & Chem 7: 07/18/18 06:57 07/21/18 08:45 Labs: Abnormal Lab Results - Last 24 Hours (Table) 07/23/18 Range/Units 17:29 POC Glucose (mg/dL) 72 L (75-99) mg/dL Assessment and Plan Assessment: Assessment and Plan Intractable nausea and vomiting Idiopathic gastroparesis Elevated liver enzymes History multiple PE Hypothyroidism Likely secondary to gastroparesis. Continue Benadryl and Ativan from every 4 hours as needed for nausea and vomiting. Pain management with Dilaudid, Toradol, oxycodone. Continue lactated Ringer's at 125 mL per hour. Continue Pr evacid. Continue Linaclotide. Continue Propulsid. Elevate head of bed. Continue scopolamine patch. Continue J-tube feeds at 30 mL per hour. Initial CT negative. Repeat CT negative. Amylase and lipase negative. Follow GI recommendations. Management as above. AST 62. Likely secondary to tube feeds. Liver ultrasound negative. Continue Lovenox 135 mg subcutaneous daily. Continue Synthroid. Patient is pending clinical improvement. Gastroenterology on board.
[2018-07-24 18:10] LABS: Glucose,Whole Blood 88 mg/dL (75-99)
--- NOTE | 2018-07-24 23:35 | P.PN ---
Subjective Progress Note Date: 07/24/18 Principal diagnosis: Intractable nausea and vomiting, gastroparesis Patient seen and examined in bed today. Still reporting nausea and vomiting. Has tolerated tube feeds. Objective - Vital Signs Vital signs: Vital Signs Temp 99.2 F 07/24/18 20:29 Pulse 89 07/24/18 20:29 Resp 16 07/24/18 20:29 BP 113/73 07/24/18 20:29 Pulse Ox 98 07/24/18 20:29 Intake & Output 07/24/18 07/24/18 07/25/18 06:59 18:59 06:59 Intake Total 2160 60 Balance 2160 60 Weight 89.9 kg Intake: Intake, IV Titration 2000 Amount Lactated Ringers 1,000 ml 2000 @ 125 mls/hr IV .Q8H [facility] Rx#:[id number] Oral 100 Tube Feeding 60 60 Other: Voiding Method Toilet Toilet # Voids 3 - Exam On physical examination, patient appears comfortable in no apparent distress. HEAD: Normocephalic, atraumatic. EYES: No scleral icterus. No conjunctival injection. MOUTH: No lesions, tongue midline. NECK: Trachea midline, no gross abnormalities. CHEST: Clear to auscultation with no wheezing or rhonchi appreciated. HEART: Regular rate and rhythm. ABDOMEN: Soft, G-tube in place. Bowel sounds are positive. No organomegaly. No guarding or rigidity. EXTREMITIES: No pedal edema. SKIN: No rashes, no jaundice. NEUROLOGIC: Alert and oriented x3. No focal deficits. - Labs CBC & Chem 7: 07/18/18 06:57 07/21/18 08:45 Assessment and Plan (1) Intractable nausea and vomiting Narrative/Plan: 38-year-old female with a history of severe gastroparesis, dysphagia has required G-tube feedings as well as functional bowel disorder on maintenance therapy with Linzess and cisapride. The patient follows up with the [facility] for symptoms of intractable nausea and vomiting. CT chest abdomen and pelvis on this admission an abdominal ultrasound with no acute findings. Current Visit: No Status: Acute Code(s): R11.2 - NAUSEA WITH VOMITING, UNSPECIFIED SNOMED Code(s): 764214142 (2) Gastroparesis Current Visit: Yes Status: Chronic Code(s): K31.84 - GASTROPARESIS SNOMED Code(s): 677073502 Plan: Supportive care Continue tube feedings through J-tube Diet as tolerated Continue antibiotics Extensive discussion with the patient and has been on other options including treatment with erythromycin however the patient reports that in the past this has not helped symptoms Follow up with [facility] after discharge Thank you for allowing us dysphagia in the care of this patient we will continue to follow
[2018-07-25 00:29] LABS: Glucose,Whole Blood 95 mg/dL (75-99)
[2018-07-25] MEDS: HYDROmorphone 0.5 MG/0.5 ML SYRINGE IVP PRN ×11 (00:32→22:45)
[2018-07-25] MEDS: LORazepam 2 MG/ML INJ IV PRN ×6 (02:09→22:00)
[2018-07-25] MEDS: diphenhydrAMINE 50 MG/ML 1 ML VIAL IVP PRN ×5 (02:09→22:00)
[2018-07-25] MEDS: LACTATED RINGERS 1,000 ML IV SCH ×4 (04:49→22:46)
[2018-07-25 06:21] LABS: Glucose,Whole Blood 88 mg/dL (75-99)
[2018-07-25] MEDS: [UNRECOGNIZED DRUG - OTHER] PO SCH ×4 (09:07→22:00)
[2018-07-25] MEDS: Lansoprazole [Prevacid] 30 MG PO SCH ×2 (09:10→17:39)
[2018-07-25] MEDS: ENOXAPARIN 150 MG/ML SYRINGE SQ SCH (09:11)
[2018-07-25] MEDS: SCOPOLAMINE 1.5MG/72HR PATCH TRANSDERM SCH (09:11)
[2018-07-25] MEDS: MONTELUKAST 10 MG TAB PO SCH (09:12)
[2018-07-25] MEDS ORDERED: WATER FOR INJECTION, STERILE 10 ML IV ONE ×3 (10:07→17:44)
[2018-07-25] MEDS: TOPIRAMATE 50 MG PO SCH (10:16)
[2018-07-25] MEDS: ACETAMINOPHEN TAB 325 MG TAB PO PRN ×2 (11:48→20:06)
[2018-07-25 12:02] LABS: Glucose,Whole Blood 91 mg/dL (75-99)
--- NOTE | 2018-07-25 12:18 | P.PN ---
Subjective Progress Note Date: 07/25/18 Principal diagnosis: Nausea vomiting abdominal pain Still reporting midepigastric midabdominal pain. Intermittent dry heaves. Receiving J tube feeds. Afebrile. Objective - Vital Signs Vital signs: Vital Signs Temp 102.7 F H 07/25/18 11:15 Pulse 83 07/25/18 09:01 Resp 20 07/25/18 09:01 BP 112/72 07/25/18 09:01 Pulse Ox 97 07/25/18 09:01 Intake & Output 07/24/18 07/25/18 07/25/18 18:59 06:59 18:59 Intake Total 60 35 Output Total 1 Balance 60 34 Weight 89.9 kg Intake: Tube Feeding 60 35 Output: Emesis 1 Other: Voiding Method Toilet # Voids 1 - Exam General appearance: The patient is alert, oriented, in no acute distress. HET: Head is normocephalic and atraumatic. Pupils are equal and reactive. Oropharynx is clear without lesions. Neck: Supple without lymphadenopathy. Trachea midline. Heart: S1 S2. Regular rate and rhythm. Lungs: No crackles or wheezes are heard. Abdomen: Soft, generalized soreness tenderness across mid abdomen midepigastric region J-tube intact without erythema or drainage receiving feeds, nondistended with bowel sounds. No peritoneal signs. No palpable organomegaly or masses. Extremities: Normal skin color and turgor. No cyanosis, rash, ulceration, clubbing, or edema. Radial and pedal pulses are 2/4 bilaterally. Neurological: No focal deficits. Strength and sensation are grossly intact. - Labs CBC & Chem 7: 07/18/18 06:57 07/21/18 08:45 Assessment and Plan (1) Abdominal pain Narrative/Plan: 38-year-old female with a history of severe gastroparesis, dysphagia has required G-tube feedings as well as functional bowel disorder on maintenance therapy with Linzess and cisapride. The patient follows up with the [facility] for symptoms of intractable nausea and vomiting. CT chest abdomen and pelvis on this admission an abdominal ultrasound with no acute findings. Current Visit: Yes Status: Acute Code(s): R10.9 - UNSPECIFIED ABDOMINAL PAIN SNOMED Code(s): 47598054 (2) Intractable vomiting Current Visit: Yes Status: Acute Code(s): R11.10 - VOMITING, UNSPECIFIED SNOMED Code(s): 154769925 (3) Gastroparesis Current Visit: Yes Status: Chronic Code(s): K31.84 - GASTROPARESIS SNOMED Code(s): 193204379 Plan: Supportive care. Patient's spouse was inquiring whether or not her symptoms were suggestive of small intestinal bacterial overgrowth (SIBO) and whether or not Xifaxan would be of benefit. At this time we'll hold off on adding any additional medications. Patient's presentation is felt to be more likely related to her underlying severe gastroparesis. Continue tube feedings through J-tube Diet as tolerated Extensive discussion with the patient and has been on other options including treatment with erythromycin however the patient reports that in the past this has not helped symptoms. Follow up with [facility] after discharge Thank you for allowing us dysphagia in the care of this patient we will continue to follow Assessment and plan a care discussed with Dr. Saxena
[2018-07-25 12:44] LABS: ALT 34 U/L (9-52); AST 22 U/L (14-36); Albumin 4.1 g/dL (3.5-5.0); Alkaline Phosphatase 119 U/L (38-126); Anion Gap 11 mmol/L; Blood Urea Nitrogen 7 mg/dL (7-17); Calcium 9.7 mg/dL (8.4-10.2); Carbon Dioxide 18 mmol/L (22-30); Chloride 105 mmol/L (98-107); Glucose 110 mg/dL (74-99); Potassium 4.4 mmol/L (3.5-5.1); Sodium 134 mmol/L (137-145); Total Bilirubin 0.4 mg/dL (0.2-1.3); Total Protein 6.7 g/dL (6.3-8.2)
[2018-07-25 13:00] LABS: Basophils % (A) 0 %; Eosinophils # (A) 0.2 k/uL (0-0.7); Eosinophils % (A) 2 %; HCT 44.7 % (34.0-46.0); HGB 14.6 gm/dL (11.4-16.0); Lymphocytes # (A) 0.6 k/uL (1.0-4.8); Lymphocytes % (A) 8 %; MCH 26.5 pg (25.0-35.0); MCHC 32.7 g/dL (31.0-37.0); MCV 81.2 fL (80.0-100.0); Mean Platelet Volume 7.9; Monocytes # (A) 0.2 k/uL (0-1.0); Monocytes % (A) 2 %; Neutrophils # (A) 6.8 k/uL (1.3-7.7); Neutrophils % (A) 87 %; Platelet Count 288 k/uL (150-450); RDW 15.9 % (11.5-15.5); WBC 7.8 k/uL (3.8-10.6)
[2018-07-25] MEDS ORDERED: ACETAMINOPHEN SUPPOSITORY 650 MG SUPP RECTAL STA (13:36)
--- NOTE | 2018-07-25 16:34 | P.PN ---
Subjective Progress Note Date: 07/25/18 Principal diagnosis: Gastroparesis Patient was seen and examined. No acute events overnight. Patient reports no changes in her overall condition. She continues to complain of nausea and vomiting, dry heaving. Unable to tolerate saltine crackers. Per nursing reports, spiked fever of 102.9F. She denies any fever or chills. No changes in urination or bowel habits. Patient denies any cough. Objective - Vital Signs Vital signs: Vital Signs Temp 98.8 F 07/25/18 16:12 Pulse 92 07/25/18 16:12 Resp 16 07/25/18 16:12 BP 109/70 07/25/18 16:12 Pulse Ox 95 07/25/18 16:12 Intake & Output 07/24/18 07/25/18 07/25/18 18:59 06:59 18:59 Intake Total 60 70 Output Total 2 Balance 60 68 Weight 89.9 kg Intake: Tube Feeding 60 70 Output: Emesis 2 Other: Voiding Method Toilet # Voids 1 - Exam General: [non toxic], [mild distress laying in bed], [appears at stated age] Derm: [warm], [dry] Head: [atraumatic], [normocephalic], [symmetric] Eyes: [EOMI], [no lid lag], [anicteric sclera] Mouth: [no lip lesion], [mucus membranes moist] Cardiovascular: [S1S2 reg], [no murmur], [positive DP pulse bilateral] Lungs: [CTA bilateral], [no rhonchi, no rales] , [no accessory muscle use] Abdominal: [soft], [epigastric tenderness palpation without rebound], [no guarding], [no appreciable organomegaly], [J-tube in place with mild surrounding erythema] Ext: [no gross muscle atrophy], [no edema], [no contractures] Neuro: [no focal neuro deficits] Psych: [Alert], [oriented], [appropriate affect] - Labs CBC & Chem 7: 07/25/18 12:04 07/25/18 12:04 Labs: Abnormal Lab Results - Last 24 Hours (Table) 07/25/18 07/25/18 Range/Units 12:04 12:04 RBC 5.50 H (3.80-5.40) m/uL RDW 15.9 H (11.5-15.5) % Lymphocytes # 0.6 L (1.0-4.8) k/uL Sodium 134 L (137-145) mmol/L Carbon Dioxide 18 L (22-30) mmol/L Glucose 110 H (74-99) mg/dL Assessment and Plan Assessment: Assessment and Plan Fever Intractable nausea and vomiting Idiopathic gastroparesis Elevated liver enzymes History multiple PE Hypothyroidism T-max 102.9 Fahrenheit. Patient asymptomatic. Unknown etiology. CBC shows no leukocytosis. 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 Follow blood cultures. Tylenol suppository as needed. Likely secondary to gastroparesis. Continue Benadryl and Ativan from every 4 hours as needed for nausea and vomiting. Pain management with Dilaudid, Toradol, oxycodone. Continue lactated Ringer's at 125 mL per hour. Continue Prevacid. Continue Linaclotide. Continue Propulsid. Elevate head of bed. Continue scopolamine patch. Continue J-tube feeds at 30 mL per hour. Initial CT negative. Repeat CT negative. Amylase and lipase negative. Follow GI r ecommendations. Management as above. AST 62. Likely secondary to tube feeds. Liver ultrasound negative. Continue Lovenox 135 mg subcutaneous daily. Continue Synthroid. Patient is pending clinical improvement. Workup for fever underway. Gastroenterology on board.
[2018-07-25 17:42] LABS: Glucose,Whole Blood 107 mg/dL (75-99)
[2018-07-25 22:58] LABS: Glucose,Whole Blood 103 mg/dL (75-99)
[2018-07-26] MEDS: HYDROmorphone 0.5 MG/0.5 ML SYRINGE IVP PRN ×10 (00:49→23:14)
[2018-07-26] MEDS: LORazepam 2 MG/ML INJ IV PRN ×6 (02:06→23:14)
[2018-07-26] MEDS: diphenhydrAMINE 50 MG/ML 1 ML VIAL IVP PRN ×6 (02:06→23:14)
[2018-07-26] MEDS: LACTATED RINGERS 1,000 ML IV SCH ×3 (06:27→19:53)
[2018-07-26 06:34] LABS: Glucose,Whole Blood 100 mg/dL (75-99)
[2018-07-26] MEDS: Lansoprazole [Prevacid] 30 MG PO SCH ×2 (07:26→18:37)
[2018-07-26] MEDS: ENOXAPARIN 150 MG/ML SYRINGE SQ SCH (09:38)
[2018-07-26 09:53] LABS: Anisocytosis Slight; Basophils % (A) 1 %; Eosinophils # (A) 0.1 k/uL (0-0.7); Eosinophils % (A) 1 %; HCT 41.4 % (34.0-46.0); HGB 13.3 gm/dL (11.4-16.0); Lymphocytes # (A) 1.2 k/uL (1.0-4.8); Lymphocytes % (A) 24 %; MCH 26.5 pg (25.0-35.0); MCHC 32.1 g/dL (31.0-37.0); MCV 82.5 fL (80.0-100.0); Mean Platelet Volume 6.9; Monocytes # (A) 0.4 k/uL (0-1.0); Monocytes % (A) 7 %; Neutrophils # (A) 3.2 k/uL (1.3-7.7); Neutrophils % (A) 64 %; Platelet Count 229 k/uL (150-450); RBC 5.02 m/uL (3.80-5.40)
[2018-07-26 10:02] LABS: ALT 32 U/L (9-52); AST 16 U/L (14-36); Albumin 3.7 g/dL (3.5-5.0); Alkaline Phosphatase 98 U/L (38-126); Anion Gap 8 mmol/L; Blood Urea Nitrogen 7 mg/dL (7-17); Calcium 9.2 mg/dL (8.4-10.2); Carbon Dioxide 20 mmol/L (22-30); Chloride 109 mmol/L (98-107); Glucose 96 mg/dL (74-99); Potassium 4.4 mmol/L (3.5-5.1); Sodium 137 mmol/L (137-145); Total Bilirubin 0.3 mg/dL (0.2-1.3); Total Protein 6.3 g/dL (6.3-8.2)
[2018-07-26] MEDS ORDERED: WATER FOR INJECTION, STERILE 10 ML IV ONE ×2 (10:21→14:31)
[2018-07-26] MEDS: MONTELUKAST 10 MG TAB PO SCH (10:39)
[2018-07-26] MEDS: BISACODYL 5 MG TABLET.DR PO PRN (10:39)
[2018-07-26] MEDS: [UNRECOGNIZED DRUG - OTHER] PO SCH ×4 (10:42→23:15)
[2018-07-26] MEDS: TOPIRAMATE 50 MG PO SCH (10:42)
[2018-07-26 12:23] LABS: Glucose,Whole Blood 95 mg/dL (75-99)
--- NOTE | 2018-07-26 14:48 | P.PN ---
Subjective Progress Note Date: 07/26/18 Principal diagnosis: Nausea vomiting abdominal pain Still reporting midepigastric midabdominal pain. Fever yesterday MAXIMUM TEMPERATURE 102.7 fever subsided last night. 2 CAT scans of the abdomen since admission with no evidence of acute findings. Intermittent dry heaves. Recei ving J tube feeds. Afebrile. Denies hematemesis hematochezia melena. Right upper extremity old IV site with erythema and warmth. Patient had a midline placed yesterday for IV access. Infectious disease consulted. 2 bowel movements loose 24 hours. CBC 2 within normal limits. Blood cultures pending. Objective - Vital Signs Vital signs: Vital Signs Temp 98.9 F 07/26/18 12:13 Pulse 91 07/26/18 12:13 Resp 20 07/26/18 12:13 BP 109/71 07/26/18 12:13 Pulse Ox 97 07/26/18 12:13 Intake & Output 07/25/18 07/26/18 07/26/18 18:59 06:59 18:59 Intake Total 70 50 360 Output Total 2 Balance 68 50 360 Weight 89.4 kg Intake: Oral 50 360 Tube Feeding 70 Output: Emesis 2 Other: # Voids 1 1 # Bowel Movements 1 # Emeses 1 - Exam General appearance: The patient is alert, oriented, in no acute distress. HET: Head is normocephalic and atraumatic. Pupils are equal and reactive. Oropharynx is clear without lesions. Neck: Supple without lymphadenopathy. Trachea midline. Heart: S1 S2. Regular rate and rhythm. Lungs: No crackles or wheezes are heard. Abdomen: Soft, generalized soreness tenderness across mid abdomen midepigastric region J-tube intact without erythema or drainage receiving feeds, nondistended with bowel sounds. No peritoneal signs. No palpable organomegaly or masses. Extremities: Right upper extremity old IV site with erythema and warmth no drainage or bleeding. Neurological: No focal deficits. Strength and sensation are grossly intact. - Labs CBC & Chem 7: 07/27/18 10:37 07/27/18 10:37 Labs: Abnormal Lab Results - Last 24 Hours (Table) 07/25/18 07/25/18 07/26/18 Range/Units 17:40 22:57 06:33 RDW (11.5-15.5) % Chloride (98-107) mmol/L Carbon Dioxide (22-30) mmol/L POC Glucose (mg/dL) 107 H 103 H 100 H (75-99) mg/dL Plasma Lactic Acid Frank (0.7-2.0) mmol/L 07/26/18 07/26/18 07/26/18 Range/Units 09:33 09:33 09:33 RDW 16.0 H (11.5-15.5) % Chloride 109 H (98-107) mmol/L Carbon Dioxide 20 L (22-30) mmol/L POC Glucose (mg/dL) (75-99) mg/dL Plasma Lactic Acid Frank 0.6 L (0.7-2.0) mmol/L Microbiology - Last 24 Hours (Table) 07/25/18 12:03 Blood Culture - Preliminary Blood No Growth after 24 hours Assessment and Plan (1) Abdominal pain Narrative/Plan: 38-year-old female with a history of severe gastroparesis, dysphagia has required G-tube feedings as well as functional bowel disorder on maintenance therapy with Linzess and cisapride. The patient follows up with the [facility] for symptoms of intractable nausea and vomiting. CT chest abdomen and pelvis on this admission an abdominal ultrasound with no acute findings. Current Visit: Yes Status: Acute Code(s): R10.9 - UNSPECIFIED ABDOMINAL PAIN SNOMED Code(s): 93850317 (2) Intractable vomiting Current Visit: Yes Status: Acute Code(s): R11.10 - VOMITING, UNSPECIFIED SNOMED Code(s): 544480260 (3) Gastroparesis Current Visit: Yes Status: Chronic Code(s): K31.84 - GASTROPARESIS SNOMED Code(s): 918543794 (4) Fever Narrative/Plan: Etiology unclear infectious disease consulted. Right upper extremity cellulitis from previous IV. Current Visit: Yes Status: Acute Code(s): R50.9 - FEVER, UNSPECIFIED SNOMED Code(s): 293318969 Plan: 1. Continue with present medical therapy. ID consult. We'll continue to follow. Assessment and plan a care discussed with Dr. Saxena
--- NOTE | 2018-07-26 16:37 | P.PN ---
Subjective Progress Note Date: 07/26/18 Principal diagnosis: Fever, gastroparesis Patient was seen and examined. No acute events overnight. Patient reports no changes in her abdominal pain, nausea and vomiting. Reports 3 episodes of nonbilious nonbloody vomiting overnight. 2 seeds currently running at 35 mL per hour. Also had fever overnight. Patient reports feeling tired today more than usual. She denies any dysuria, fever or chills, cough. Objective - Vital Signs Vital signs: Vital Signs Temp 98.9 F 07/26/18 12:13 Pulse 91 07/26/18 12:13 Resp 20 07/26/18 12:13 BP 109/71 07/26/18 12:13 Pulse Ox 97 07/26/18 12:13 Intake & Output 07/25/18 07/26/18 07/26/18 18:59 06:59 18:59 Intake Total 70 50 360 Output Total 2 Balance 68 50 360 Weight 89.4 kg Intake: Oral 50 360 Tube Feeding 70 Output: Emesis 2 Other: # Voids 1 1 # Bowel Movements 1 # Emeses 1 - Exam General: [non toxic], [mild distress laying in bed], [appears at stated age] Derm: [warm], [dry] Head: [atraumatic], [normocephalic], [symmetric] Eyes: [EOMI], [no lid lag], [anicteric sclera] Mouth: [no lip lesion], [mucus membranes moist] Cardiovascular: [S1S2 reg], [no murmur], [positive DP pulse bilateral] Lungs: [CTA bilateral], [no rhonchi, no rales] , [no accessory muscle use] Abdominal: [soft], [epigastric tenderness palpation without rebound], [no guarding], [no appreciable organomegaly], [J-tube in place with mild surrounding erythema] Ext: [no gross muscle atrophy], [no edema], [no contractures] Neuro: [no focal neuro deficits] Psych: [Alert], [oriented], [appropriate affect] - Labs CBC & Chem 7: 07/26/18 09:33 07/26/18 09:33 Labs: Abnormal Lab Results - Last 24 Hours (Table) 07/25/18 07/25/18 07/26/18 Range/Units 17:40 22:57 06:33 RDW (11.5-15.5) % Chloride (98-107) mmol/L Carbon Dioxide (22-30) mmol/L POC Glucose (mg/dL) 107 H 103 H 100 H (75-99) mg/dL Plasma Lactic Acid Frank (0.7-2.0) mmol/L 07/26/18 07/26/18 07/26/18 Range/Units 09:33 09:33 09:33 RDW 16.0 H (11.5-15.5) % Chloride 109 H (98-107) mmol/L Carbon Dioxide 20 L (22-30) mmol/L POC Glucose (mg/dL) (75-99) mg/dL Plasma Lactic Acid Frank 0.6 L (0.7-2.0) mmol/L Microbiology - Last 24 Hours (Table) 07/25/18 12:03 Blood Culture - Preliminary Blood No Growth after 24 hours Assessment and Plan Assessment: Assessment and Plan Fever Intractable nausea and vomiting Idiopathic gastroparesis Elevated liver enzymes History multiple PE Hypothyroidism T-max 102.9 Fahrenheit. Patient asymptomatic except for fatigue. Unknown yolanda ology. CBC shows no leukocytosis. 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 Blood cultures negative at 24 hours. Follow blood cultures. Tylenol suppository as needed. Follow ID consultation. Likely secondary to gastroparesis. Continue Benadryl and Ativan from every 4 hours as needed for nausea and vomiting. Pain management with Dilaudid, Toradol, oxycodone. Continue lactated Ringer's at 125 mL per hour. Continue Prevacid. Continue Linaclotide. Continue Propulsid. Elevate head of bed. Continue scopolamine patch. Continue J-tube feeds at 30 mL per hour. Initial CT negative. Repeat CT negative. Amylase and lipase negative. Follow GI recommendations. Management as above. AST 62. Likely secondary to tube feeds. Liver ultrasound negative. Continue Lovenox 135 mg subcutaneous daily. Continue Synthroid. Patient is pending clinical improvement. Workup for fever underway. [facility]il roenterology and ID on board.
[2018-07-26] MEDS ORDERED: SODIUM CHLORIDE 0.9% 1,000 ML IV ONE (18:11)
[2018-07-26 18:28] LABS: Glucose,Whole Blood 103 mg/dL (75-99)
[2018-07-26] MEDS ORDERED: VANCOMYCIN 1,500 MG in SODIUM CHLORIDE 0.9% 250 ML IVPB ONE (19:00)
--- NOTE | 2018-07-26 19:14 | XR ---
EXAMINATION TYPE: XR chest 1V DATE OF EXAM: 07/26/2018 COMPARISON: 03/12/2018 HISTORY: Fever TECHNIQUE: Single frontal view of the chest is obtained. FINDINGS: Heart and mediastinum are normal. Lungs are clear. Diaphragm is normal. Bony thorax appear s normal. IMPRESSION: Normal chest. No change.
[2018-07-26 19:31] LABS: Appearance,Urine Clear (Clear); Bilirubin,Urine Negative (Negative); Blood,Urine Negative (Negative); Color,Urine Colorless; Glucose,Urine (UA) Negative (Negative); Ketones,Urine Negative (Negative); Leukocyte Esterase,Urine Negative (Negative); Nitrite,Urine Negative (Negative); PH, Urine 7.5 (5.0-8.0); Protein,Urine Negative (Negative); Specific Gravity,Urine 1.002 (1.001-1.035); Urobilinogen,Urine <2.0 mg/dL (<2.0)
[2018-07-26] MEDS: CEFEPIME 2 GM in SODIUM CHLORIDE 0.9% 100 ML IVPB SCH (19:52)
[2018-07-26 23:28] LABS: Glucose,Whole Blood 85 mg/dL (75-99)
[2018-07-27] MEDS: HYDROmorphone 0.5 MG/0.5 ML SYRINGE IVP PRN ×10 (01:30→21:59)
[2018-07-27] MEDS: CEFEPIME 2 GM in SODIUM CHLORIDE 0.9% 100 ML IVPB SCH ×2 (01:31→07:51)
[2018-07-27] MEDS: ACETAMINOPHEN TAB 325 MG TAB PO PRN ×3 (01:41→21:59)
[2018-07-27] MEDS: LORazepam 2 MG/ML INJ IV PRN ×5 (04:24→20:50)
[2018-07-27] MEDS: diphenhydrAMINE 50 MG/ML 1 ML VIAL IVP PRN ×5 (04:24→20:51)
[2018-07-27] MEDS: VANCOMYCIN 1,250 MG in SODIUM CHLORIDE 0.9% 250 ML IVPB SCH ×3 (04:25→20:49)
[2018-07-27 06:30] LABS: Glucose,Whole Blood 92 mg/dL (75-99)
[2018-07-27] MEDS: MONTELUKAST 10 MG TAB PO SCH (07:48)
[2018-07-27] MEDS: [UNRECOGNIZED DRUG - OTHER] PO SCH ×4 (07:49→21:59)
[2018-07-27] MEDS: ENOXAPARIN 150 MG/ML SYRINGE SQ SCH (07:50)
[2018-07-27] MEDS: Lansoprazole [Prevacid] 30 MG PO SCH ×2 (07:51→16:39)
[2018-07-27] MEDS: TOPIRAMATE 50 MG PO SCH (08:20)
[2018-07-27 11:10] LABS: Basophils % (A) 1 %; Eosinophils # (A) 0.2 k/uL (0-0.7); Eosinophils % (A) 3 %; HCT 45.3 % (34.0-46.0); HGB 14.4 gm/dL (11.4-16.0); Lymphocytes % (A) 20 %; MCH 26.8 pg (25.0-35.0); MCHC 31.8 g/dL (31.0-37.0); MCV 84.4 fL (80.0-100.0); Mean Platelet Volume 6.9; Monocytes # (A) 0.3 k/uL (0-1.0); Monocytes % (A) 5 %; Neutrophils # (A) 3.2 k/uL (1.3-7.7); Neutrophils % (A) 68 %; Platelet Count 183 k/uL (150-450); RBC 5.36 m/uL (3.80-5.40); RDW 15.9 % (11.5-15.5); WBC 4.7 k/uL (3.8-10.6)
[2018-07-27] MEDS: metroNIDAZOLE-NS PMX 500 MG in SALINE 1 100ML.BAG IVPB SCH ×2 (11:12→15:30)
[2018-07-27 11:26] LABS: Anion Gap 9 mmol/L; Blood Urea Nitrogen 8 mg/dL (7-17); Calcium 9.2 mg/dL (8.4-10.2); Carbon Dioxide 23 mmol/L (22-30); Chloride 107 mmol/L (98-107); Glucose 83 mg/dL (74-99); Potassium 4.2 mmol/L (3.5-5.1); Sodium 139 mmol/L (137-145)
--- NOTE | 2018-07-27 12:07 | P.PN ---
Subjective Progress Note Date: 07/27/18 Principal diagnosis: Nausea vomiting abdominal pain Still reporting midepigastric midabdominal pain. T-max 102.3 last night. Intermittent dry heaves. Receiving J tube feeds. Afebrile. Denies hematemesis hematochezia melena. Right upper extremity old IV site with erythema and warmth much improved. Infectious disease consulted. Clostridium difficile testing negative. Blood cultures pending. Objective - Vital Signs Vital signs: Vital Signs Temp 98.6 F 07/27/18 07:00 Pulse 76 07/27/18 07:00 Resp 17 07/27/18 07:00 BP 98/61 07/27/18 07:00 Pulse Ox 99 07/27/18 07:00 Intake & Output 07/26/18 07/27/18 07/27/18 18:59 06:59 18:59 Intake Total 360 240 Balance 360 240 Weight 89.9 kg Intake: Oral 360 240 Other: Voiding Method Toilet # Voids 1 1 # Bowel Movements 1 - Exam General appearance: The patient is alert, oriented, in no acute distress. HET: Head is normocephalic and atraumatic. Pupils are equal and reactive. Oropharynx is clear without lesions. Neck: Supple without lymphadenopathy. Trachea midline. Heart: S1 S2. Regular rate and rhythm. Lungs: No crackles or wheezes are heard. Abdomen: Soft, generalized soreness tenderness across mid abdomen midepigastric region J-tube intact without erythema or drainage receiving feeds, nondistended with bowel sounds. No peritoneal signs. No palpable organomegaly or masses. Extremities: Right upper extremity old IV site with minimal erythema and warmth no drainage or bleeding. Neurological: No focal deficits. Strength and sensation are grossly intact. - Labs CBC & Chem 7: 07/27/18 10:37 07/27/18 10:37 Labs: Abnormal Lab Results - Last 24 Hours (Table) 07/26/18 07/27/18 Range/Units 18:25 10:37 RDW 15.9 H (11.5-15.5) % POC Glucose (mg/dL) 103 H (75-99) mg/dL Microbiology - Last 24 Hours (Table) 07/25/18 12:03 Blood Culture - Preliminary Blood No Growth after 24 hours Assessment and Plan (1) Abdominal pain Narrative/Plan: 38-year-old female with a history of severe gastroparesis, dysphagia has required G-tube feedings as well as functional bowel disorder on maintenance therapy with Linzess and cisapride. The patient follows up with the [facility] for symptoms of intractable nausea and vomiting. CT chest abdomen and pelvis on this admission an abdominal ultrasound with no acute findings. Current Visit: Yes Status: Acute Code(s): R10.9 - UNSPECIFIED ABDOMINAL PAIN SNOMED Code(s): 33808679 (2) Intractable vomiting Current Visit: Yes Status: Acute Code(s): R11.10 - VOMITING, UNSPECIFIED SNOMED Code(s): 334633093 (3) Gastroparesis Current Visit: Yes Status: Chronic Code(s): K31.84 - GASTROPARESIS SNOMED Code(s): 397461326 (4) Fever Narrative/Plan: Etiology unclear infectious disease consulted. Right upper extremity cellulitis from previous IV improved. Current Visit: Yes Status: Acute Code(s): R50.9 - FEVER, UNSPECIFIED SNOMED Code(s): 372854944 Plan: 1. Continue with present medical therapy. ID consult recommendations appreciated patient will be started on Flagyl. We'll continue to follow. Assessment and plan a care discussed with Dr. Saxena
[2018-07-27 12:38] LABS: Glucose,Whole Blood 83 mg/dL (75-99)
[2018-07-27 13:57] LABS: Erythrocyte Sedimentation Rate 13 mm/hr (0-20)
--- NOTE | 2018-07-27 16:19 | P.PN ---
Subjective Progress Note Date: 07/27/18 The patient was seen and examined at the bedside. She endorsed continued nausea with episodes of vomiting. She continues to have epigastric abdominal pain. She however denied hematochezia, melena, or hematemesis. She further denied chest pain, shortness of breath, or cough. Objective - Vital Signs Vital signs: Vital Signs Temp 98.6 F 07/27/18 07:00 Pulse 76 07/27/18 07:00 Resp 17 07/27/18 07:00 BP 98/61 07/27/18 07:00 Pulse Ox 99 07/27/18 07:00 Intake & Output 07/26/18 07/27/18 07/27/18 18:59 06:59 18:59 Intake Total 522 210 7642 Balance 023 069 5186 Weight 89.9 kg Intake: IV 1450 Cefepime 2 gm In Sodium 100 Chloride 0.9% 100 ml @ 200 mls/hr IVPB Q8HR [facility] Rx#:[id number] Lactated Ringers 1,000 ml 1000 @ 125 mls/hr IV .Q8H [facility] Rx#:[id number] Vancomycin 1,250 mg In 250 Sodium Chloride 0.9% 250 ml @ 125 mls/hr IVPB Q8H [facility] Rx#:[id number] metroNIDAZOLE-NS PMX 500 100 mg In Saline 1 100ml.bag @ 100 mls/hr IVPB Q8HR [facility] Rx#:[id number] Oral 360 240 Other: Voiding Method Toilet # Voids 1 1 # Bowel Movements 1 - Exam General: Non-toxic, in no acute distress, appears stated age, normal weight HEENT: NC/AT, anicteric sclerae, moist conjunctiva, no lid-lag, PERRLA Cardiovascular: S1/S2 wnl, no murmurs, rubs, or gallops Lungs: Clear to auscultation, normal respiratory effort, no accessory muscle use Abdominal: Soft, diffuse mild tenderness palpation, J-tube in place, with no surrounding erythema, non-distended, no guarding, rebound, or rigidity Skin: Warm, dry Extremities: No edema or contractures Psychiatric: Alert and oriented to person, place and time, appropriate affect Neuro: CN II-XII grossly intact, Strength 5/5 in all 4 extremities, Speech intact, Sensation to light touch grossly intact throughout - Labs CBC & Chem 7: 07/27/18 10:37 07/27/18 10:37 Labs: Abnormal Lab Results - Last 24 Hours (Table) 07/26/18 07/27/18 Range/Units 18:25 10:37 RDW 15.9 H (11.5-15.5) % POC Glucose (mg/dL) 103 H (75-99) mg/dL Microbiology - Last 24 Hours (Table) 07/25/18 12:03 Blood Culture - Preliminary Blood No Growth after 48 hours Assessment and Plan Plan: Abdominal pain, due to gastroparesis -Discussed with patient in detail regarding her current condition. Patient reported that she has previously undergone pylorus surgery which was ineffective. Discussed the options of possible initiation of transfer discussion to either [facility] or [facility] due to the refractory nature o f her symptoms along with being on the trial with Propulsid, inhibiting use of conventional antiemetics. The patient became tearful and noted that she is frustrated with the prolonged hospitalization. She noted that she will think about her options and relay them to me. -GI recommendations appreciated -Continue with Benadryl and Ativan for nausea -Continue with Propulsid Multiple febrile episodes, no clear source identified -ID consulted, awaiting recs -Blood cultures pending -UA and CXR unremarkable Abnormal LFTs -Abd/Pelvis CT reviewed Hx of PE and DVT -C/w Lovenox subq Hypothyroidism -Resume home medications DVT//GI prophylaxis -Lovenox -Protonix Discussed with: Patient Anticipated discharge date: 07/30/[address]: Home A total of 30 minutes was spent on the care of this complex patient more than 50% of the time was spent in counseling and care coordination.
[2018-07-27 18:53] LABS: Glucose,Whole Blood 84 mg/dL (75-99)
[2018-07-27] MEDS ORDERED: VANCOMYCIN TROUGH DUE 1 EACH MISC MISCELLANE ONE (19:00)
[2018-07-27] MEDS: LACTATED RINGERS 1,000 ML IV SCH (23:07)
[2018-07-27] MEDS ORDERED: diphenhydrAMINE 50 MG/ML 1 ML VIAL IVP STA (23:39)
[2018-07-27] MEDS ORDERED: LORazepam 2 MG/ML INJ IV STA (23:41)
[2018-07-27] MEDS ORDERED: ACETAMINOPHEN TAB 325 MG TAB PO STA (23:42)
[2018-07-28] MEDS: HYDROmorphone 0.5 MG/0.5 ML SYRINGE IVP PRN ×9 (00:07→21:45)
[2018-07-28] MEDS: metroNIDAZOLE-NS PMX 500 MG in SALINE 1 100ML.BAG IVPB SCH ×3 (00:11→15:04)
[2018-07-28 00:46] LABS: Glucose,Whole Blood 89 mg/dL (75-99)
[2018-07-28] MEDS: LACTATED RINGERS 1,000 ML IV SCH ×3 (02:35→19:44)
[2018-07-28] MEDS: diphenhydrAMINE 50 MG/ML 1 ML VIAL IVP PRN ×4 (03:56→19:57)
[2018-07-28] MEDS: VANCOMYCIN 1,250 MG in SODIUM CHLORIDE 0.9% 250 ML IVPB SCH ×3 (03:56→19:57)
[2018-07-28] MEDS: LORazepam 2 MG/ML INJ IV PRN ×4 (03:56→16:45)
[2018-07-28 06:23] LABS: Glucose,Whole Blood 83 mg/dL (75-99)
[2018-07-28] MEDS: SCOPOLAMINE 1.5MG/72HR PATCH TRANSDERM SCH (07:57)
[2018-07-28] MEDS: ENOXAPARIN 150 MG/ML SYRINGE SQ SCH (07:58)
[2018-07-28] MEDS: TOPIRAMATE 50 MG PO SCH (07:59)
--- NOTE | 2018-07-28 08:01 | P.CONS ---
History of Present Illness - Reason for Consult Consult date: 07/27/18 - Chief Complaint Nausea and emesis - History of Present Illness Very pleasant 38-year-old female who is Ab0 who has a several year history of intractable nausea and vomiting related to gastroparesis of an undetermined etiology. She has had extensive workup and care [facility], [facility] and soon to be [facility]. 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 She is on a clinical trial with Propulsid and is tube fed by the jejunostomy tube. She fortunately does not have wasting but does feel poorly. She presents to Hospital with a marked worsening of her nausea and emesis. She is receiving IV fluids and some bowel rest and was having some improvement but now has developed significant fevers of 102. Workup was somewhat negative however the patient was noted to have evidence of significant irritation and pain to the right arm prior IV site. Cultures been obtained and consult was requested. Is on the patient does complain of pain to the arm. It is not severe. It does radiate up into the right shoulder area. Her high-grade fevers and chills have improved this morning. She is relating that her nausea and emesis are stable at the moment. But are cyclical and recurrent and cause her great misery. Her is present and seems to be very supportive. She at this time is denying headache chest pain or urinary symptoms. Review of Systems HEENT:Denies headache or acute visual change. Denies sinus or mouth discomforts. Denies neck stiffness or pain. Denies significant oral cavity pain. Denies difficulty on swallowing. Lungs: Denies significant shortness of breath, cough, sputum production, or hemoptysis. Cardiovascular: Denies significant shortness of breath, chest pain, chest wall pain, orthopnea, dyspnea on exertion, syncope Gastrointestinal: Chronic nausea and emesis with her gastroparesis. Chronic abdominal pain. However no hematemesis monitor her medication is not having profuse diarrhea today but did have diarrhea prior Musculoskeletal: denies significant myalgias or arthralgias. No new joint swelling. Denies new back pain. Skin: Pain and redness to the right arm Neuro: Denies headache or visual change. Denies any new onset weakness or difficulty with ambulation. Denies falls or seizures. Psychiatric: Depression of chronic disease Endocrine: Chronic fatigue weight is stable with her tube feeds. Past Medical History Past Medical History: GERD/Reflux, Pulmonary Embolus (PE), Thyroid Disorder Additional Past Medical History / Comment(s): Idiopathic gastroparesis, takes little in orally-has J tube for feedings and Piccs for TPN, bacteremia/picc line, R pulmonary embolism, pancreatitis, hypothyroid, chronic anemia, sinus problems, migraine History of Any Multi-Drug Resistant Organisms: None Reported Past Surgical History: Section, Cholecystectomy, Hernia Repair, Tonsillectomy Additional Past Surgical History / Comment(s): Picc lines with last one placed 04/2018, gastric pacer with removal, J tube, x3, 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 Past Anesthesia/Blood Transfusion Reactions: No Reported Reaction Past Psychological History: Depression Additional Psychological History / Comment(s): lives in the family home with and children. 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 The experience. 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 No tobacco alcohol or drug use. 3 dogs two cats in the home Smoking Status: Never smoker Past Alcohol Use History: None Reported Past Drug Use History: None Reported - Past Family History Father Family Medical History: Hypertension Additional Family Medical History / Comment(s): DAD IS 56 AND IN [facility] Mother Additional Family Medical History / Comment(s): MOM IS 56 AND IN [facility] Medications and Allergies Home Medications and Allergies Comment(s): Current Medications Acetaminophen (Tylenol Tab) 650 mg PO Q6HR PRN PRN Reason: Fever and/ or Mild Pain Last Admin: 07/27/18 21:59 Dose: 650 mg Documented by: Bisacodyl (Dulcolax) 5 mg PO DAILY PRN PRN Reason: Constipation Last Admin: 07/26/18 10:39 Dose: 5 mg Documented by: Diphenhydramine HCl (Benadryl) 50 mg IVP Q4HR PRN PRN Reason: Nausea Last Admin: 07/28/18 03:56 Dose: 50 mg Documented by: Enoxaparin Sodium (Lovenox) 135 mg SQ DAILY [facility] Last Admin: 07/27/18 07:50 Dose: 135 mg Documented by: Hydromorphone HCl (Dilaudid) 0.5 mg IVP Q2H PRN PRN Reason: Severe Pain Last Admin: 07/28/18 03:56 Dose: 0.5 mg Documented by: Lactated Ringer's (Lactated Ringers) 1,000 mls @ 125 mls/hr IV .Q8H [facility] Last Admin: 07/28/18 02:35 Dose: Not Given Documented by: Vancomycin HCl 1,250 mg/ (Sodium Chloride) 250 mls @ 125 mls/hr IVPB Q8H [facility] Last Admin: 07/28/18 03:56 Dose: 125 mls/hr Documented by: Metronidazole 500 mg/ IV (Solution) 100 mls @ 100 mls/hr IVPB Q8HR [facility] Last Admin: 07/28/18 00:11 Dose: 100 mls/hr Documented by: Lorazepam (Ativan) 1 mg IV Q4HR PRN PRN Reason: Anxiety/Nausea Last Admin: 07/28/18 03:56 Dose: 1 mg Documented by: Montelukast Sodium (Singulair) 10 mg PO DAILY [facility] Last Admin: 07/27/18 07:48 Dose: 10 mg Documented by: Naloxone HCl (Narcan) 0.2 mg IV Q2M PRN PRN Reason: Opioid Reversal Thyroid,Pork [[employer] (Thyroid] 90 Mg) 90 mg PO DAILY [facility] Last Admin: 07/27/18 07:49 Dose: 90 mg Documented by: Arpita (Linaclotide () 290 Mcg Capsule) 290 mcg PO DAILY [facility] Last Admin: 07/27/18 07:51 Dose: 290 mcg Documented by: Propulsid (Cisapride () 1mg/Ml Suspension) 20 ml PO QID [facility] Last Admin: 07/27/18 21:59 Dose: 20 ml Documented by: Topiramate [Trokendi (Xr] 50 Mg) 50 mg PO DAILY [facility] Last Admin: 07/27/18 08:20 Dose: 50 mg Documented by: Lansoprazole [ (Prevacid] 30 Mg) 30 mg PO AC-BID [facility] Last Admin: 07/27/18 16:39 Dose: 30 mg Documented by: Oxycodone HCl (Oxyir) 10 mg PO Q6H PRN PRN Reason: Pain Last Admin: 07/20/18 14:22 Dose: 10 mg Documented by: Scopolamine (Transderm-Scop 1.5mg/72hr Patch) 1 patch TRANSDERM Q72H [facility] Last Admin: 07/25/18 09:11 Dose: 1 patch Documented by: Home Medications Medication Instructions Recorded Confirmed Type Lansoprazole [Prevacid] 30 mg PO BID 02/02/18 07/17/18 History Montelukast Chew [Singulair] 10 mg PO DAILY 02/02/18 07/17/18 History Linaclotide [Linzess] 290 mcg PO DAILY 03/10/18 07/17/18 History Thyroid,Pork [[employer] Thyroid] 90 mg PO DAILY 04/08/18 07/17/18 History oxyCODONE HCL [oxyCODONE HCL (IR)] 10 mg PO Q6H PRN 05/09/18 07/17/18 History Enoxaparin [Lovenox] 135 mg SQ DAILY 06/29/18 07/17/18 History Propulsid 20 ml PO QID 07/17/18 07/17/18 History Topiramate [Trokendi Xr] 50 mg PO DAILY 07/18/18 07/18/18 History Allergies Allergy/AdvReac Type Severity Reaction Status Date / Time prochlorperazine Allergy JITTERY Verified 07/17/18 16:31 [From Compazine] metoclopramide [From Reglan] AdvReac jittery Verified 07/17/18 16:31 Physical Exam Vitals: Vital Signs Temp Pulse Resp BP Pulse Ox 07/28/18 02:55 98.4 F 77 18 107/71 98 07/28/18 00:45 98.8 F 07/27/18 23:45 101.0 F H 07/27/18 21:50 101.9 F H 07/27/18 19:25 98.7 F 79 18 102/60 99 07/27/18 15:00 102.4 F H 85 15 108/68 99 Intake and Output 07/27/18 07/28/18 07/28/18 22:59 06:59 14:59 Intake Total 280 1600 Balance 280 1600 Intake: IV 1600 Lactated Ringers 1,000 ml 1250 @ 125 mls/hr IV .Q8H [facility] Rx#:[id number] Vancomycin 1,250 mg In 250 Sodium Chloride 0.9% 250 ml @ 125 mls/hr IVPB Q8H [facility] Rx#:[id number] metroNIDAZOLE-NS PMX 500 100 mg In Saline 1 100ml.bag @ 100 mls/hr IVPB Q8HR [facility] Rx#:[id number] Tube Feeding 280 Other: # Voids 1 Pleasant 38-year-old woman HEENT: Anicteric conjunctiva are pink and moist nasal mucosa grossly intact without significant lesions, there is no thrush. Neck: The neck is supple without significant lymphadenopathy or thyromegaly. Lungs: Good bilateral air entry without significant crackles or wheezing. There is no significant bronchial sounds. There is no egophony or dullness. Heart: Regular rate and rhythm with an audible S1-S2, no S3 no S4. There is no significant murmur click or rub, PMI was nondisplaced. Abdomen: Positive bowel sounds soft and nontender without palpable masses or organomegaly. There was no guarding or rebound. Extremities: The upper extremities have evidence of no acute abnormality subtle left arm. Right arm reveals evidence of the prior IV site posterior aspect that has a small eschar with surrounding erythema and some tenderness to the symptoms. There is no large palpable cord. There is minimal tenderness to the right axilla but no lymphadenopathy is noted. no other Abnormal lymph nodes are noted Rest of the skin is without rash or breakdown Neuro: Awake alert oriented to person place and time. There are no acute new gross focal sensory motor deficits. Results CBC & Chem 7: 07/27/18 10:37 07/27/18 10:37 Labs: Abnormal Lab Results - Last 24 Hours (Table) 07/27/18 Range/Units 10:37 RDW 15.9 H (11.5-15.5) % Microbiology - Last 24 Hours (Table) 07/25/18 12:03 Blood Culture - Preliminary Blood No Growth after 48 hours Laboratory Results WBC 4.7 k/uL (3.8-10.6) 07/27/18 10:37 RBC 5.36 m/uL (3.80-5.40) 07/27/18 10:37 Hgb 14.4 gm/dL (11.4-16.0) 07/27/18 10:37 Hct 45.3 % (34.0-46.0) 07/27/18 10:37 MCV 84.4 fL (80.0-100.0) 07/27/18 10:37 MCH 26.8 pg (25.0-35.0) 07/27/18 10:37 MCHC 31.8 g/dL (31.0-37.0) 07/27/18 10:37 RDW 15.9 % (11.5-15.5) H 07/27/18 10:37 Plt Count 183 k/uL (150-450) 07/27/18 10:37 Neutrophils % 68 % 07/27/18 10:37 Lymphocytes % 20 % 07/27/18 10:37 Monocytes % 5 % 07/27/18 10:37 Eosinophils % 3 % 07/27/18 10:37 Basophils % 1 % 07/27/18 10:37 Neutrophils # 3.2 k/uL (1.3-7.7) 07/27/18 10:37 Lymphocytes # 1.0 k/uL (1.0-4.8) 07/27/18 10:37 Monocytes # 0.3 k/uL (0-1.0) 07/27/18 10:37 Eosinophils # 0.2 k/uL (0-0.7) 07/27/18 10:37 Basophils # 0.0 k/uL (0-0.2) 07/27/18 10:37 Hypochromasia Slight 07/18/18 06:57 Anisocytosis Slight 07/26/18 09:33 ESR 13 mm/hr (0-20) 07/27/18 10:37 Sodium 139 mmol/L (137-145) 07/27/18 10:37 Potassium 4.2 mmol/L (3.5-5.1) 07/27/18 10:37 Chloride 107 mmol/L (98-107) 07/27/18 10:37 Carbon Dioxide 23 mmol/L (22-30) 07/27/18 10:37 Anion Gap 9 mmol/L 07/27/18 10:37 BUN 8 mg/dL (7-17) 07/27/18 10:37 Creatinine 0.79 mg/dL (0.52-1.04) 07/27/18 10:37 Est GFR (CKD-EPI)AfAm >90 (>60 ml/min/1.73 sqM) 07/27/18 10:37 Est GFR (CKD-EPI)NonAf >90 (>60 ml/min/1.73 sqM) 07/27/18 10:37 Glucose 83 mg/dL (74-99) 07/27/18 10:37 POC Glucose (mg/dL) 83 mg/dL (75-99) 07/28/18 06:20 POC Glu [employer] Cira Benjamin 07/28/18 06:20 Plasma Lactic Acid Frank 0.6 mmol/L (0.7-2.0) L 07/26/18 09:33 Calcium 9.2 mg/dL (8.4-10.2) 07/27/18 10:37 Iron 88 ug/dL (50-170) 07/18/18 06:56 TIBC 313 ug/dL (228-460) 07/18/18 06:56 Iron Saturation 28.12 (12.00-45.00) 07/18/18 06:56 Ferritin 62.8 ng/mL (10.0-291.0) 07/18/18 06:56 Total Bilirubin 0.3 mg/dL (0.2-1.3) 07/26/18 09:33 Conjugated Bilirubin 0.0 mg/dL (0.0-0.3) 07/20/18 08:24 Unconjugated Bilirubin 0.2 mg/dL (0.0-1.1) 07/20/18 08:24 Delta Bilirubin 0.2 mg/dL (0.0-0.2) 07/20/18 08:24 AST 16 U/L (14-36) 07/26/18 09:33 ALT 32 U/L (9-52) 07/26/18 09:33 Alkaline Phosphatase 98 U/L (38-126) 07/26/18 09:33 Troponin I <0.012 ng/mL (0.000-0.034) 07/17/18 17:45 Total Protein 6.3 g/dL (6.3-8.2) 07/26/18 09:33 Albumin 3.7 g/dL (3.5-5.0) 07/26/18 09:33 Amylase 53 U/L (30-110) 07/20/18 08:24 Lipase 48 U/L (23-300) 07/20/18 08:24 Urine Color Colorless 07/26/18 19:15 Urine Appearance Clear (Clear) 07/26/18 19:15 Urine pH 7.5 (5.0-8.0) 07/26/18 19:15 Ur Specific [place] 1.002 (1.001-1.035) 07/26/18 19:15 Urine Protein Negative (Negative) 07/26/18 19:15 Urine Glucose (UA) Negative (Negative) 07/26/18 19:15 Urine Ketones Negative (Negative) 07/26/18 19:15 Urine Blood Negative (Negative) 07/26/18 19:15 Urine Nitrite Negative (Negative) 07/26/18 19:15 Urine Bilirubin Negative (Negative) 07/26/18 19:15 Urine Urobilinogen <2.0 mg/dL (<2.0) 07/26/18 19:15 Ur Leukocyte Esterase Negative (Negative) 07/26/18 19:15 Urine RBC 147 /hpf (0-5) H 07/17/18 20:10 Urine WBC 8 /hpf (0-5) H 07/17/18 20:10 Ur Squamous Epith Cells 4 /hpf (0-4) 07/17/18 20:10 Urine Mucus Rare /hpf (None) H 07/17/18 20:10 Vancomycin Trough 13.4 ug/mL 07/27/18 19:13 C. difficile (EIA) Intrp Negative (Negative) 07/26/18 18:00 Influenza Type A RNA Not Detected (Not Detectd) 07/26/18 18:33 Influenza Type B (PCR) Not Detected (Not Detectd) 07/26/18 18:33 Microbiology 07/25/18 12:03 Blood Blood Culture - Preliminary No Growth after 48 hours Assessment and Plan (1) Intractable vomiting Current Visit: Yes Status: Acute Code(s): R11.10 - VOMITING, UNSPECIFIED SNOMED Code(s): 562526950 (2) Abdominal pain Current Visit: Yes Status: Acute Code(s): R10.9 - UNSPECIFIED ABDOMINAL PAIN SNOMED Code(s): 07836286 (3) Fever Narrative/Plan: 38-year-old woman who has a complex past medical history regarding her gastroparesis that required evaluation tertiary [facility] with very little improvement. She is currently on Propulsid trial has had some improvement. She does have tube feeds with elemental formula which is been able to maintain her nutritional status. However is developed a significant high- grade fever several days into her hospital stay. Likely source is from the prior IV site to the right posterior antecubital area. There is one small area of erythema and tenderness. There is no expressible purulence. There is no ascending lymphangitis. No lymphadenopathy. He was starting to improve. Antibiotic therapy had been started with vancomycin should continue all cultures in process. Does appear to be somewhat of a limited infection. Patient over does have the chronic abdominal difficulties and we discussed metronidazole as a unique antimicrobial due to its anti-inflammatory properties of the gastrointestinal tract. It is discussed with gastroenterology and they see no contraindication. We'll initiate see if this has any impact on her overall status. Current Visit: Yes Status: Acute Code(s): R50.9 - FEVER, UNSPECIFIED SNOMED Code(s): 725696736
[2018-07-28] MEDS: MONTELUKAST 10 MG TAB PO SCH (08:03)
[2018-07-28] MEDS: [UNRECOGNIZED DRUG - OTHER] PO SCH ×4 (08:14→21:38)
[2018-07-28 10:05] LABS: Anion Gap 9 mmol/L; Blood Urea Nitrogen 9 mg/dL (7-17); Calcium 9.2 mg/dL (8.4-10.2); Carbon Dioxide 19 mmol/L (22-30); Chloride 110 mmol/L (98-107); Glucose 99 mg/dL (74-99); Potassium 4.3 mmol/L (3.5-5.1); Sodium 138 mmol/L (137-145)
--- NOTE | 2018-07-28 10:12 | P.PN ---
Subjective Progress Note Date: 07/28/18 Principal diagnosis: Nausea vomiting abdominal pain Still reporting midepigastric midabdominal pain. T-max 102.4 last night. Intermittent dry heaves. Receiving J tube feeds. Denies hematemesis hematochezia melena. Right upper extremity old IV site with erythema and warmth much improved resolved. Infectious disease consulted recognitions appreciated. Clostridium difficile testing negative. Blood cultures pending. Objective - Vital Signs Vital signs: Vital Signs Temp 98.4 F 07/28/18 02:55 Pulse 77 07/28/18 02:55 Resp 18 07/28/18 02:55 BP 107/71 07/28/18 02:55 Pulse Ox 98 07/28/18 02:55 Intake & Output 07/27/18 07/28/18 07/28/18 18:59 06:59 18:59 Intake Total 1730 1600 Balance 1730 1600 Intake: IV 1450 1600 Cefepime 2 gm In Sodium 100 Chloride 0.9% 100 ml @ 200 mls/hr IVPB Q8HR [facility] Rx#:[id number] Lactated Ringers 1,000 ml 1000 1250 @ 125 mls/hr IV .Q8H [facility] Rx#:[id number] Vancomycin 1,250 mg In 250 250 Sodium Chloride 0.9% 250 ml @ 125 mls/hr IVPB Q8H [facility] Rx#:[id number] metroNIDAZOLE-NS PMX 500 100 100 mg In Saline 1 100ml.bag @ 100 mls/hr IVPB Q8HR [facility] Rx#:[id number] Tube Feeding 280 Other: # Voids 1 - Exam General appearance: The patient is alert, oriented, in no acute distress. HET: Head is normocephalic and atraumatic. Pupils are equal and reactive. Oropharynx is clear without lesions. Neck: Supple without lymphadenopathy. Trachea midline. Heart: S1 S2. Regular rate and rhythm. Lungs: No crackles or wheezes are heard. Abdomen: Soft, generalized soreness tenderness across mid abdomen midepigastric region J-tube intact without erythema or drainage receiving feeds, nondistended with bowel sounds. No peritoneal signs. No palpable organomegaly or masses. Extremities: Right upper extremity old IV site with minimal erythema and warmth no drainage or bleeding. Neurological: No focal deficits. Strength and sensation are grossly intact. - Labs CBC & Chem 7: 07/27/18 10:37 07/28/18 09:20 Labs: Abnormal Lab Results - Last 24 Hours (Table) 07/27/18 07/28/18 Range/Units 10:37 09:20 RDW 15.9 H (11.5-15.5) % Chloride 110 H (98-107) mmol/L Carbon Dioxide 19 L (22-30) mmol/L Microbiology - Last 24 Hours (Table) 07/25/18 12:03 Blood Culture - Preliminary Blood No Growth after 48 hours Assessment and Plan (1) Abdominal pain Narrative/Plan: 38-year-old female with a history of severe gastroparesis, dysphagia has required G-tube feedings as well as functional bowel disorder on maintenance therapy with Linzess and cisapride. The patient follows up with the [facility] for symptoms of intractable nausea and vomiting. CT chest abdomen and pelvis on this admission an abdominal ultrasound with no acute findings. Current Visit: Yes Status: Acute Code(s): R10.9 - UNSPECIFIED ABDOMINAL PAIN SNOMED Code(s): 63658253 (2) Intractable vomiting Current Visit: Yes Status: Acute Code(s): R11.10 - VOMITING, UNSPECIFIED SNOMED Code(s): 313192827 (3) Gastroparesis Current Visit: Yes Status: Chronic Code(s): K31.84 - GASTROPARESIS SNOMED Code(s): 376540700 (4) Fever Narrative/Plan: Etiology unclear infectious disease consulted. Right upper extremity cellulitis from previous IV improved. Current Visit: Yes Status: Acute Code(s): R50.9 - FEVER, UNSPECIFIED S NOMED Code(s): 207863160 Plan: 1. Continue with present medical therapy. ID consult recommendations appreciated patient receiving Flagyl. We'll continue to follow. Assessment and plan a care discussed with Dr. Saxena
[2018-07-28] MEDS ORDERED: VANCOMYCIN IV PER PHARMACY 1 EACH MISC MISCELLANE PRN (10:31)
[2018-07-28] MEDS: Lansoprazole [Prevacid] 30 MG PO SCH ×2 (10:31→16:45)
--- NOTE | 2018-07-28 10:33 | P.PN ---
Subjective Patient was seen and examined at the bedside. She notes continued nausea with multiple episodes of vomiting overnight. She also continues to have epigastric abdominal pain and fevers overnight with T-max of 102.4. She however denied hematochezia, hematemesis, melena, dysuria, cough, chest pain, or shortness of breath. Objective - Vital Signs Vital signs: Vital Signs Temp 98.4 F 07/28/18 02:55 Pulse 77 07/28/18 02:55 Resp 18 07/28/18 02:55 BP 107/71 07/28/18 02:55 Pulse Ox 98 07/28/18 02:55 Intake & Output 07/27/18 07/28/18 07/28/18 18:59 06:59 18:59 Intake Total 1730 1600 Balance 1730 1600 Intake: IV 1450 1600 Cefepime 2 gm In Sodium 100 Chloride 0.9% 100 ml @ 200 mls/hr IVPB Q8HR [facility] Rx#:[id number] Lactated Ringers 1,000 ml 1000 1250 @ 125 mls/hr IV .Q8H [facility] Rx#:[id number] Vancomycin 1,250 mg In 250 250 Sodium Chloride 0.9% 250 ml @ 125 mls/hr IVPB Q8H [facility] Rx#:[id number] metroNIDAZOLE-NS PMX 500 100 100 mg In Saline 1 100ml.bag @ 100 mls/hr IVPB Q8HR [facility] Rx#:[id number] Tube Feeding 280 Other: # Voids 1 - Exam General: Non-toxic, in no acute distress, appears stated age, obese HEENT: NC/AT, anicteric sclerae, moist conjunctiva, no lid-lag, PERRLA Cardiovascular: S1/S2 wnl, no murmurs, rubs, or gallops Lungs: Clear to auscultation, normal respiratory effort, no accessory muscle use Abdominal: Soft, diffuse mild tenderness palpation, J-tube in place, with no surrounding erythema, non-distended, no guarding, rebound, or rigidity Skin: Warm, dry, R elbow overlying skin with erythema, corresponds to placement of Tegaderm, no underlying fluctuance or collection, no LAD Extremities: No edema or contractures Psychiatric: Alert and oriented to person, place and time, appropriate affect Neuro: CN II-XII grossly intact, Strength 5/5 in all 4 extremities, Speech intact, Sensation to light touch grossly intact throughout - Labs CBC & Chem 7: 07/27/18 10:37 07/28/18 09:20 Labs: Abnormal Lab Results - Last 24 Hours (Table) 07/27/18 07/28/18 Range/Units 10:37 09:20 RDW 15.9 H (11.5-15.5) % Chloride 110 H (98-107) mmol/L Carbon Dioxide 19 L (22-30) mmol/L Microbiology - Last 24 Hours (Table) 07/25/18 12:03 Blood Culture - Preliminary Blood No Growth after 48 hours Assessment and Plan Plan: Abdominal pain, due to gastroparesis -Discussed with the patient again regarding possible transfer. Patient stated that she doesn't wish to be transferred since it will start the process all over again. at the bedside noted that in the past, the patient's acute bouts had been worse in the setting of an active infection -GI recommendations appreciated -Continue with Scopolamine, Benadryl and Ativan for nausea -Continue with Propulsid -C/w J-Tube feedings Multiple febrile episodes, possible source R antecubital previous IV site infection -ID consulted, recs appreciated -Blood cultures pending -UA and CXR unremarkable -C/w Vancomycin -Started on Flagyl Abnormal LFTs -Abd/Pelvis CT reviewed Hx of PE and DVT -C/w Lovenox subq Hypothyroidism -Resume home medications DVT//GI prophylaxis -Lovenox Discussed with: Patient Anticipated discharge date: 07/30/[address]: Home A total of 30 minutes was spent on the care of this complex patient more than 50% of the time was spent in counseling and care coordination.
[2018-07-28 11:53] LABS: Glucose,Whole Blood 87 mg/dL (75-99)
[2018-07-28 14:24] VITALS: BMI 34.7
[2018-07-28 15:41] LABS: Basophils % (A) 1 %; Eosinophils # (A) 0.1 k/uL (0-0.7); Eosinophils % (A) 2 %; HCT 42.6 % (34.0-46.0); HGB 13.5 gm/dL (11.4-16.0); Lymphocytes # (A) 0.7 k/uL (1.0-4.8); Lymphocytes % (A) 12 %; MCH 26.7 pg (25.0-35.0); MCHC 31.8 g/dL (31.0-37.0); MCV 84.1 fL (80.0-100.0); Mean Platelet Volume 8.5; Monocytes # (A) 0.4 k/uL (0-1.0); Monocytes % (A) 8 %; Neutrophils # (A) 4.2 k/uL (1.3-7.7); Neutrophils % (A) 75 %; Platelet Count 187 k/uL (150-450); RBC 5.07 m/uL (3.80-5.40); WBC 5.7 k/uL (3.8-10.6)
[2018-07-28 18:47] LABS: Glucose,Whole Blood 81 mg/dL (75-99)
--- NOTE | 2018-07-28 23:06 | P.PN ---
Subjective Progress Note Date: 07/28/18 Very pleasant 38-year-old female who is Ab0 who has a several year history of intractable nausea and vomiting related to gastroparesis of an undetermined etiology. She has had extensive workup and care at outside tertiary medical centers including [facility], [facility] and [facility] to be [facility]. 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 She is on a clinical trial with Propulsid and is tube fed by the jejunostomy tube. She fortunately does not have wasting but does feel poorly. She presents to Hospital with a marked worsening of her nausea and emesis. She is receiving IV fluids and some bowel rest and was having some improvement but now has developed significant fevers of 102. Workup was somewhat negative however the patient was noted to have evidence of significant irritation and pain to the right arm prior IV site. Cultures been obtained and consult was requested. Is on the patient does complain of pain to the arm. It is not severe. It does radiate up into the right shoulder area. Her high-grade fevers and chills have improved this morning. She is relating that her nausea and emesis are stable at the moment. But are cyclical and recurrent and cause her great misery. Her is present and seems to be very supportive. She at this time is denying headache chest pain or urinary symptoms. 07/28/2018 Patient continues to feel poorly. Although she is able to smile and communicate positively about how she is doing. Objective - Vital Signs Vital signs: Vital Signs Temp 99.0 F 07/28/18 19:20 Pulse 76 07/28/18 19:20 Resp 18 07/28/18 19:43 BP 122/74 07/28/18 19:20 Pulse Ox 97 07/28/18 19:20 Intake & Output 07/28/18 07/28/18 07/29/18 06:59 18:59 06:59 Intake Total 1600 560 140 Output Total 600 Balance 1600 -40 140 Weight 89.1 kg 89.1 kg Intake: IV 1600 Lactated Ringers 1,000 ml 1250 @ 125 mls/hr IV .Q8H [facility] Rx#:[id number] Vancomycin 1,250 mg In 250 Sodium Chloride 0.9% 250 ml @ 125 mls/hr IVPB Q8H [facility] Rx#:[id number] metroNIDAZOLE-NS PMX 500 100 mg In Saline 1 100ml.bag @ 100 mls/hr IVPB Q8HR [facility] Rx#:[id number] Tube Feeding 560 140 Output: Urine 600 Other: Voiding Method Toilet # Voids 1 1 # Emeses 2 - Exam HEENT: Anicteric conjunctiva are pink and moist nasal mucosa grossly intact without significant lesions, there is no thrush. Neck: The neck is supple without significant lymphadenopathy or thyromegaly. Lungs: Good bilateral air entry without significant crackles or wheezing. There is no significant bronchial sounds. There is no egophony or dullness. Heart: Regular rate and rhythm with an audible S1-S2, no S3 no S4. There is no significant murmur click or rub, PMI was nondisplaced. Abdomen: Positive bowel sounds soft and nontender without palpable masses or org anomegaly. There was no guarding or rebound. Extremities: The upper extremities have evidence of no acute abnormality subtle left arm. Right arm reveals evidence of the prior IV site posterior aspect that has a small eschar with surrounding erythema and some tenderness to the symptoms. There is no large palpable cord. There is minimal tenderness to the right axilla but no lymphadenopathy is noted. no other Abnormal lymph nodes are noted Rest of the skin is without rash or breakdown Neuro: Awake alert oriented to person place and time. There are no acute new gross focal sensory motor deficits. - Labs CBC & Chem 7: 07/28/18 09:20 07/28/18 09:20 Labs: Abnormal Lab Results - Last 24 Hours (Table) 07/28/18 07/28/18 Range/Units 09:20 09:20 RDW 16.0 H (11.5-15.5) % Lymphocytes # 0.7 L (1.0-4.8) k/uL Chloride 110 H (98-107) mmol/L Carbon Dioxide 19 L (22-30) mmol/L Microbiology - Last 24 Hours (Table) 07/25/18 12:03 Blood Culture - Preliminary Blood No Growth after 72 hours Laboratory Results WBC 5.7 k/uL (3.8-10.6) 07/28/18 09:20 RBC 5.07 m/uL (3.80-5.40) 07/28/18 09:20 Hgb 13.5 gm/dL (11.4-16.0) 07/28/18 09:20 Hct 42.6 % (34.0-46.0) 07/28/18 09:20 MCV 84.1 fL (80.0-100.0) 07/28/18 09:20 MCH 26.7 pg (25.0-35.0) 07/28/18 09:20 MCHC 31.8 g/dL (31.0-37.0) 07/28/18 09:20 RDW 16.0 % (11.5-15.5) H 07/28/18 09:20 Plt Count 187 k/uL (150-450) 07/28/18 09:20 Neutrophils % 75 % 07/28/18 09:20 Lymphocytes % 12 % 07/28/18 09:20 Monocytes % 8 % 07/28/18 09:20 Eosinophils % 2 % 07/28/18 09:20 Basophils % 1 % 07/28/18 09:20 Neutrophils # 4.2 k/uL (1.3-7.7) 07/28/18 09:20 Lymphocytes # 0.7 k/uL (1.0-4.8) L 07/28/18 09:20 Monocytes # 0.4 k/uL (0-1.0) 07/28/18 09:20 Eosinophils # 0.1 k/uL (0-0.7) 07/28/18 09:20 Basophils # 0.0 k/uL (0-0.2) 07/28/18 09:20 Hypochromasia Slight 07/18/18 06:57 Anisocytosis Slight 07/26/18 09:33 ESR 13 mm/hr (0-20) 07/27/18 10:37 Sodium 138 mmol/L (137-145) 07/28/18 09:20 Potassium 4.3 mmol/L (3.5-5.1) 07/28/18 09:20 Chloride 110 mmol/L (98-107) H 07/28/18 09:20 Carbon Dioxide 19 mmol/L (22-30) L 07/28/18 09:20 Anion Gap 9 mmol/L 07/28/18 09:20 BUN 9 mg/dL (7-17) 07/28/18 09:20 Creatinine 0.64 mg/dL (0.52-1.04) 07/28/18 09:20 Est GFR (CKD-EPI)AfAm >90 (>60 ml/min/1.73 sqM) 07/28/18 09:20 Est GFR (CKD-EPI)NonAf >90 (>60 ml/min/1.73 sqM) 07/28/18 09:20 Glucose 99 mg/dL (74-99) 07/28/18 09:20 POC Glucose (mg/dL) 81 mg/dL (75-99) 07/28/18 18:45 POC Glu Site Worker ID Bella Bryson 07/28/18 18:45 Plasma Lactic Acid Frank 0.6 mmol/L (0.7-2.0) L 07/26/18 09:33 Calcium 9.2 mg/dL (8.4-10.2) 07/28/18 09:20 Iron 88 ug/dL (50-170) 07/18/18 06:56 TIBC 313 ug/dL (228-460) 07/18/18 06:56 Iron Saturation 28.12 (12.00-45.00) 07/18/18 06:56 Ferritin 62.8 ng/mL (10.0-291.0) 07/18/18 06:56 Total Bilirubin 0.3 mg/dL (0.2-1.3) 07/26/18 09:33 Conjugated Bilirubin 0.0 mg/dL (0.0-0.3) 07/20/18 08:24 Unconjugated Bilirubin 0.2 mg/dL (0.0-1.1) 07/20/18 08:24 Delta Bilirubin 0.2 mg/dL (0.0-0.2) 07/20/18 08:24 AST 16 U/L (14-36) 07/26/18 09:33 ALT 32 U/L (9-52) 07/26/18 09:33 Alkaline Phosphatase 98 U/L (38-126) 07/26/18 09:33 Troponin I <0.012 ng/mL (0.000-0.034) 07/17/18 17:45 Total Protein 6.3 g/dL (6.3-8.2) 07/26/18 09:33 Albumin 3.7 g/dL (3.5-5.0) 07/26/18 09:33 Amylase 53 U/L (30-110) 07/20/18 08:24 Lipase 48 U/L (23-300) 07/20/18 08:24 Urine Color Colorless 07/26/18 19:15 Urine Appearance Clear (Clear) 07/26/18 19:15 Urine pH 7.5 (5.0-8.0) 07/26/18 19:15 Ur Specific [place] 1.002 (1.001-1.035) 07/26/18 19:15 Urine Protein Negative (Negative) 07/26/18 19:15 Urine Glucose (UA) Negative (Negative) 07/26/18 19:15 Urine Ketones Negative (Negative) 07/26/18 19:15 Urine Blood Negative (Negative) 07/26/18 19:15 Urine Nitrite Negative (Negative) 07/26/18 19:15 Urine Bilirubin Negative (Negative) 07/26/18 19:15 Urine Urobilinogen <2.0 mg/dL (<2.0) 07/26/18 19:15 Ur Leukocyte Esterase Negative (Negative) 07/26/18 19:15 Urine RBC 147 /hpf (0-5) H 07/17/18 20:10 Urine WBC 8 /hpf (0-5) H 07/17/18 20:10 Ur Squamous Epith Cells 4 /hpf (0-4) 07/17/18 20:10 Urine Mucus Rare /hpf (None) H 07/17/18 20:10 Vancomycin Trough 13.4 ug/mL 07/27/18 19:13 C. difficile (EIA) Intrp Negative (Negative) 07/26/18 18:00 Influenza Type A RNA Not Detected (Not Detectd) 07/26/18 18:33 Influenza Type B (PCR) Not Detected (Not Detectd) 07/26/18 18:33 Microbiology 07/25/18 12:03 Blood Blood Culture - Preliminary No Growth after 72 hours Assessment and Plan (1) Intractable vomiting Current Visit: Yes Status: Acute Code(s): R11.10 - VOMITING, UNSPECIFIED SNOMED Code(s): 794397467 (2) Abdominal pain Current Visit: Yes Status: Acute Code(s): R10.9 - UNSPECIFIED ABDOMINAL PAIN SNOMED Code(s): 20706022 (3) Fever Narrative/Plan: 38-year-old woman who has a complex past medical history regarding her gastroparesis that required evaluation tertiary [facility] Center's with very little improvement. She is currently on Propulsid trial has had some improvement. She does have tube feeds with elemental formula which is been able to maintain her nutritional status. However is developed a significant high- grade fever several days into her hospital stay. Likely source is from the prior IV site to the right posterior antecubital area. There is one small area of erythema and tenderness. There is no expressible purulence. There is no ascending lymphangitis. No lymphadenopathy. He was starting to improve. Antibiotic therapy had been started with vancomycin should continue all cultures in process. Does appear to be somewhat of a limited infection. Patient over does have the chronic abdominal difficulties and we discussed metro nidazole as a unique antimicrobial due to its anti-inflammatory properties of the gastrointestinal tract. It is discussed with gastroenterology and they see no contraindication. We'll initiate see if this has any impact on her overall status. 07/28/2018 patient continues to feel poorly but no other acute changes are noted. She is currently being treated with vancomycin for the cellulitis and ph lebitis to the right arm from a peripheral IV site. Cultures are all negative at this time. Her fever was problematic overnight in better today. Continues to have the significant bouts of gastroparesis with nausea and emesis. Continue with the vancomycin and metronidazole and monitor. She was having some difficulties with slowly decreased white blood cell count and will monitored. Current Visit: Yes Status: Acute Code(s): R50.9 - FEVER, UNSPECIFIED SNOMED Code(s): 608311808
[2018-07-29] MEDS: LORazepam 2 MG/ML INJ IV PRN ×6 (00:08→21:05)
[2018-07-29] MEDS: metroNIDAZOLE-NS PMX 500 MG in SALINE 1 100ML.BAG IVPB SCH ×4 (00:08→23:39)
[2018-07-29] MEDS: diphenhydrAMINE 50 MG/ML 1 ML VIAL IVP PRN ×6 (00:08→21:05)
[2018-07-29 00:09] LABS: Glucose,Whole Blood 92 mg/dL (75-99)
[2018-07-29] MEDS: HYDROmorphone 0.5 MG/0.5 ML SYRINGE IVP PRN ×10 (00:58→23:54)
[2018-07-29] MEDS: LACTATED RINGERS 1,000 ML IV SCH ×3 (04:10→19:42)
[2018-07-29] MEDS: VANCOMYCIN 1,250 MG in SODIUM CHLORIDE 0.9% 250 ML IVPB SCH ×3 (04:12→21:04)
[2018-07-29 05:49] LABS: Glucose,Whole Blood 80 mg/dL (75-99)
[2018-07-29 07:34] LABS: Basophils % (A) 1 %; Eosinophils # (A) 0.2 k/uL (0-0.7); Eosinophils % (A) 4 %; HGB 12.7 gm/dL (11.4-16.0); Lymphocytes # (A) 1.7 k/uL (1.0-4.8); Lymphocytes % (A) 29 %; MCH 26.8 pg (25.0-35.0); MCHC 31.9 g/dL (31.0-37.0); MCV 84.2 fL (80.0-100.0); Mean Platelet Volume 6.7; Monocytes # (A) 0.5 k/uL (0-1.0); Monocytes % (A) 8 %; Neutrophils # (A) 3.2 k/uL (1.3-7.7); Neutrophils % (A) 55 %; Platelet Count 236 k/uL (150-450); RBC 4.75 m/uL (3.80-5.40); RDW 15.9 % (11.5-15.5); WBC 5.9 k/uL (3.8-10.6)
[2018-07-29 08:14] LABS: Anion Gap 10 mmol/L; Blood Urea Nitrogen 10 mg/dL (7-17); Carbon Dioxide 19 mmol/L (22-30); Chloride 110 mmol/L (98-107); Glucose 86 mg/dL (74-99); Potassium 4.5 mmol/L (3.5-5.1); Sodium 139 mmol/L (137-145)
[2018-07-29] MEDS: MONTELUKAST 10 MG TAB PO SCH (08:53)
[2018-07-29] MEDS: [UNRECOGNIZED DRUG - OTHER] PO SCH ×4 (08:53→21:43)
[2018-07-29] MEDS: ENOXAPARIN 150 MG/ML SYRINGE SQ SCH (08:53)
[2018-07-29] MEDS: TOPIRAMATE 50 MG PO SCH (08:54)
[2018-07-29] MEDS: Lansoprazole [Prevacid] 30 MG PO SCH ×2 (08:54→17:27)
[2018-07-29] MEDS ORDERED: VANCOMYCIN TROUGH DUE 1 EACH MISC MISCELLANE ONE (11:00)
[2018-07-29 12:29] LABS: Glucose,Whole Blood 78 mg/dL (75-99)
[2018-07-29] MEDS ORDERED: HYDROcodone/APAP 7.5-325MG 1 EACH TAB PO PRN (15:19)
--- NOTE | 2018-07-29 17:22 | P.PN ---
Subjective Progress Note Date: 07/29/18 (Delayed charting patient seen at 1000) Principal diagnosis: abdominal pain Patient is a 38-year-old female with a past medical history of idiopathic gastroparesis, nutrition via G-tube, previously on TPN with the PICC line, history of left upper extremity DVT and PE (failed Xarelto currently on Lovenox) with hypothyroidism who initially presented to the ER with complaints of abdominal pain. She has had a prolonged hospitalization and this is my first evaluation of the patient. She's been undergoing treatment due to a flare of gastroparesis. Apparently she did not want transfers until it starts process all over again. Currently on Propulsid trial. She also developed a right antecubital thrombophlebitis and has been placed on vancomycin. Infectious disease was consulted. Patient seen and examined at bedside. She reports she still doesn't "feel well". She complains of some abdominal pain. She's been tolerating her tube feeds at 35 mL/h. She states she normally takes 60 at home and runs for 16 hours overnight. She denies any chest pain or shortness of breath. She states her arm is getting better. Objective - Vital Signs Vital signs: Vital Signs Temp 98.8 F 07/29/18 15:00 Pulse 73 07/29/18 16:22 Resp 15 07/29/18 16:22 BP 105/69 07/29/18 15:00 Pulse Ox 96 07/29/18 15:00 Intake & Output 07/28/18 07/29/18 07/29/18 18:59 06:59 18:59 Intake Total 560 420 420 Output Total 600 600 Balance -40 420 -180 Weight 89.1 kg 89 kg Intake: Tube Feeding 560 420 420 Output: Urine 600 600 Other: Voiding Method Toilet Toilet # Voids 1 1 # Emeses 2 - Exam General: non toxic, chronically ill-appearing, appears at stated age Derm: Right antecubital area without warmth or redness, no fluctuant area noted, mild edema right arm. warm, dry Head: atraumatic, normocephalic, symmetric Eyes: EOMI, no lid lag, anicteric sclera Mouth: no lip lesion, mucus membranes moist Cardiovascular: S1S2 reg, no murmur, positive posterior tibial pulse bilateral, Lungs: CTA bilateral, no rhonchi, no rales , no accessory muscle use Abdominal: soft, to palpation diffusely, no guarding, no appreciable organomegaly Ext: no gross muscle atrophy, no edema, no contractures Neuro: CN II-XI grossly intact, no focal neuro deficits Psych: Alert, oriented, appropriate affect - Labs CBC & Chem 7: 07/29/18 06:51 07/29/18 06:51 Labs: Abnormal Lab Results - Last 24 Hours (Table) 07/29/18 07/29/18 Range/Units 06:51 06:51 RDW 15.9 H (11.5-15.5) % Chloride 110 H (98-107) mmol/L Carbon Dioxide 19 L (22-30) mmol/L Microbiology - Last 24 Hours (Table) 07/25/18 12:03 Blood Culture - Preliminary Blood No Growth after 96 hours Assessment and Plan Assessment: Abdominal pain due to gastroparesis flair. - Encourage oral oxy IR use, limit dilaudid - GI recommendations - If not improved by tuesday will need transfer to tertiary center - C/W J tube feedings - Continue with propulsid - on flgayl for antiinflammatory effects Right arm thrombophlebitis - blood cx negative to date - febrile episode resolved - Vanco Hypothyridism - synthroid Hx PE - on lovenox therapeutic Transaminitis, resolved Hyperchloremia, resolved DVT prophylaxis: Lovenox Discussed with: Patient, nursing Anticipated discharge: 1-2 days or transfer Anticipated discharge place: home A total of 35 minutes was spent on the care of this complex patient more than 50% of the time was spent in counseling and care coordination.
[2018-07-29 18:14] LABS: Glucose,Whole Blood 91 mg/dL (75-99)
--- NOTE | 2018-07-29 23:13 | P.PN ---
Subjective Progress Note Date: 07/29/18 Principal diagnosis: Intractable nausea and vomiting, gastroparesis The patient is seen lying in bed, still reporting that she is feeling nauseated and not well overall. She is continuing to tolerate her tube feeds at 35 mL/h. Objective - Vital Signs Vital signs: Vital Signs Temp 98.0 F 07/29/18 18:46 Pulse 84 07/29/18 18:46 Resp 14 07/29/18 19:15 BP 106/68 07/29/18 18:46 Pulse Ox 98 07/29/18 18:46 Intake & Output 07/29/18 07/29/18 07/30/18 06:59 18:59 06:59 Intake Total 420 420 35 Output Total 600 Balance 420 -180 35 Weight 89 kg Intake: Tube Feeding 420 420 35 Output: Urine 600 Other: Voiding Method Toilet Toilet # Voids 1 # Bowel Movements 1 # Emeses 2 0 - Exam On physical examination, patient appears comfortable in no apparent distress. HEAD: Normocephalic, atraumatic. EYES: No scleral icterus. No conjunctival injection. MOUTH: No lesions, tongue midline. NECK: Trachea midline, no gross abnormalities. CHEST: Clear to auscultation with no wheezing or rhonchi appreciated. HEART: Regular rate and rhythm. ABDOMEN: Soft, G-tube in place. Bowel sounds are positive. No organomegaly. No guarding or rigidity. EXTREMITIES: No pedal edema. SKIN: No rashes, no jaundice. NEUROLOGIC: Alert and oriented x3. No focal deficits. - Labs CBC & Chem 7: 07/29/18 06:51 07/29/18 06:51 Labs: Abnormal Lab Results - Last 24 Hours (Table) 07/29/18 07/29/18 Range/Units 06:51 06:51 RDW 15.9 H (11.5-15.5) % Chloride 110 H (98-107) mmol/L Carbon Dioxide 19 L (22-30) mmol/L Microbiology - Last 24 Hours (Table) 07/25/18 12:03 Blood Culture - Preliminary Blood No Growth after 96 hours Assessment and Plan (1) Intractable nausea and vomiting Narrative/Plan: 38-year-old female with a history of severe gastroparesis, dysphagia has required G-tube feedings as well as functional bowel disorder on maintenance therapy with Linzess and cisapride. The patient follows up with the [facility] for symptoms of intractable nausea and vomiting. CT chest abdomen and pelvis on this admission an abdominal ultrasound with no acute findings. Current Visit: No Status: Acute Code(s): R11.2 - NAUSEA WITH VOMITING, UNSPECIFIED SNOMED Code(s): 338330142 (2) Gastroparesis Current Visit: Yes Status: Chronic Code(s): K31.84 - GASTROPARESIS SNOMED Code(s): 009552606 Plan: Supportive care Continue tube feedings through J-tube Diet as tolerated Continue antibiotics, appreciate recommendations from infectious disease service Follow up with [facility] after discharge, plan at this time is for transfer to tertiary centers patient continues to remain symptomatic Thank you for allowing us dysphagia in the care of this patient we will continue to follow
[2018-07-29 23:48] LABS: Glucose,Whole Blood 95 mg/dL (75-99)
[2018-07-30] MEDS: LORazepam 2 MG/ML INJ IV PRN ×6 (01:09→21:08)
[2018-07-30] MEDS: diphenhydrAMINE 50 MG/ML 1 ML VIAL IVP PRN ×6 (01:10→21:08)
[2018-07-30] MEDS: LACTATED RINGERS 1,000 ML IV SCH ×3 (04:26→21:09)
[2018-07-30] MEDS: HYDROmorphone 0.5 MG/0.5 ML SYRINGE IVP PRN ×7 (04:27→21:15)
[2018-07-30] MEDS: VANCOMYCIN 1,250 MG in SODIUM CHLORIDE 0.9% 250 ML IVPB SCH ×2 (05:11→12:48)
[2018-07-30 05:23] LABS: Glucose,Whole Blood 87 mg/dL (75-99)
[2018-07-30] MEDS: Lansoprazole [Prevacid] 30 MG PO SCH ×2 (07:37→15:26)
[2018-07-30] MEDS: TOPIRAMATE 50 MG PO SCH (07:38)
[2018-07-30] MEDS: ENOXAPARIN 150 MG/ML SYRINGE SQ SCH (07:39)
[2018-07-30] MEDS: metroNIDAZOLE-NS PMX 500 MG in SALINE 1 100ML.BAG IVPB SCH ×2 (07:39→15:26)
[2018-07-30] MEDS: MONTELUKAST 10 MG TAB PO SCH (07:40)
[2018-07-30] MEDS: [UNRECOGNIZED DRUG - OTHER] PO SCH ×4 (07:41→21:09)
[2018-07-30 08:18] LABS: Anion Gap 9 mmol/L; Blood Urea Nitrogen 9 mg/dL (7-17); Calcium 9.3 mg/dL (8.4-10.2); Carbon Dioxide 20 mmol/L (22-30); Chloride 111 mmol/L (98-107); Glucose 87 mg/dL (74-99); Potassium 4.2 mmol/L (3.5-5.1); Sodium 140 mmol/L (137-145)
--- NOTE | 2018-07-30 09:51 | P.PN ---
Subjective Progress Note Date: 07/30/18 Principal diagnosis: abdominal pain Patient is a 38-year-old female with a past medical history of idiopathic gastroparesis, nutrition via G-tube, previously on TPN with the PICC line, history of left upper extremity DVT and PE (failed Xarelto currently on Lovenox) with hypothyroidism who initially presented to the ER with complaints of abdominal pain. She's been undergoing treatment due to a flare of gastroparesis. Apparently she did not want transfers until it starts process all over again. Currently on Propulsid trial. She also developed a right antecubital thrombophlebitis and has been placed on vancomycin. Infectious disease was consulted. Patient seen and examined at bedside. She states that she knows that the plan in home in the morning. Initially when I ask her how she is doing she answered fine. We discussed that she needs to start taking the oxy to transition to home meds for plan for discharge. Then on abdominal exam she states pain is different today more like razor blades. No chest pain or shortness of breath. Normal bowel movements. Objective - Vital Signs Vital signs: Vital Signs Temp 98.6 F 07/30/18 07:00 Pulse 79 07/30/18 07:00 Resp 14 07/30/18 07:00 BP 108/72 07/30/18 07:00 Pulse Ox 98 07/30/18 07:00 Intake & Output 07/29/18 07/30/18 07/30/18 18:59 06:59 18:59 Intake Total 420 298 35 Output Total 600 Balance -180 298 35 Weight 88.8 kg Intake: Tube Feeding 420 298 35 Output: Urine 600 Other: Voiding Method Toilet Toilet # Voids 1 2 # Bowel Movements 1 # Emeses 0 - Exam General: non toxic, chronically ill-appearing, appears at stated age Derm: Right antecubital area without warmth or redness, no fluctuant area noted, mild edema right arm. warm, dry Head: atraumatic, normocephalic, symmetric Cardiovascular: S1S2 reg, no murmur, positive posterior tibial pulse bilateral, Lungs: CTA bilateral, no rhonchi, no rales , no accessory muscle use Abdominal: soft, to palpation diffusely, no guarding, no appreciable organomegal y Ext: no gross muscle atrophy, no edema, no contractures Neuro: CN II-XI grossly intact, no focal neuro deficits Psych: Alert, oriented, appropriate affect - Labs CBC & Chem 7: 07/29/18 06:51 07/30/18 07:28 Labs: Abnormal Lab Results - Last 24 Hours (Table) 07/30/18 Range/Units 07:28 Chloride 111 H (98-107) mmol/L Carbon Dioxide 20 L (22-30) mmol/L Microbiology - Last 24 Hours (Table) 07/25/18 12:03 Blood Culture - Preliminary Blood No Growth after 96 hours Assessment and Plan Assessment: Abdominal pain due to gastroparesis flair. - Pain is different today. Discussed with patient that if pain continues or worsens that she should seek care where she has been seen before. Will await GI to see her today before repeating Imaging as patient is 38 and has already had 2 CT scans this admission, Belly exam without signs of acute abdomen. - Encourage oral oxy IR use, limit dilaudid - GI recommendations - C/W J tube feedings - Continue with propulsid - on flgayl for antiinflammatory effects Right arm thrombophlebitis - blood cx negative to date - febrile episode resolved - Vanco will stop today Hypothyridism - synthroid Hx PE - on lovenox therapeutic Transaminitis, resolved Hyperchloremia, resolved DVT prophylaxis: Lovenox Discussed with: Patient, nursing Anticipated discharge: 1-2 days or transfer Anticipated discharge place: home A total of 25 minutes was spent on the care of this complex patient more than 50% of the time was spent in counseling and care coordination.
[2018-07-30 11:49] LABS: Glucose,Whole Blood 96 mg/dL (75-99)
[2018-07-30 18:21] LABS: Glucose,Whole Blood 82 mg/dL (75-99)
--- NOTE | 2018-07-30 18:27 | XR ---
EXAMINATION TYPE: XR abdomen complete w decub DATE OF EXAM: 07/30/2018 COMPARISON: 02/16/2017 HISTORY: Pain TECHNIQUE: Upright supine and decubitus views were obtained. FINDINGS: There is no evidence for pneumoperitoneum. Lung bases are clear. There are clips from cholecystectomy. There is IUD noted. There is apparent jej unostomy tube. There is no evidence of intestinal obstruction or pneumoperitoneum. There is no sign o f ascites. There are no pathologic calcifications over the kidneys. IMPRESSION: Nonacute abdomen. No free air. No adverse change compared to old exam.
[2018-07-31] MEDS: LORazepam 2 MG/ML INJ IV PRN ×3 (01:12→08:57)
[2018-07-31] MEDS: HYDROmorphone 0.5 MG/0.5 ML SYRINGE IVP PRN ×4 (01:12→10:28)
[2018-07-31] MEDS: diphenhydrAMINE 50 MG/ML 1 ML VIAL IVP PRN ×3 (01:12→08:57)
[2018-07-31] MEDS: LACTATED RINGERS 1,000 ML IV SCH ×2 (01:18→09:04)
[2018-07-31 01:25] LABS: Glucose,Whole Blood 91 mg/dL (75-99)
[2018-07-31] MEDS: [UNRECOGNIZED DRUG - OTHER] PO SCH (07:06)
[2018-07-31] MEDS: Lansoprazole [Prevacid] 30 MG PO SCH (07:06)
[2018-07-31] MEDS: TOPIRAMATE 50 MG PO SCH (07:06)
[2018-07-31] MEDS: SCOPOLAMINE 1.5MG/72HR PATCH TRANSDERM SCH (07:07)
[2018-07-31] MEDS: ENOXAPARIN 150 MG/ML SYRINGE SQ SCH (07:07)
[2018-07-31] MEDS: MONTELUKAST 10 MG TAB PO SCH (07:07)
[2018-07-31 07:48] LABS: Glucose,Whole Blood 97 mg/dL (75-99)
[2018-07-31 07:55] VITALS: BP 104/69; PULSE 75; RESP 16; TEMP 99.1
[2018-07-31 08:13] LABS: Anion Gap 9 mmol/L; Blood Urea Nitrogen 8 mg/dL (7-17); Calcium 9.1 mg/dL (8.4-10.2); Carbon Dioxide 21 mmol/L (22-30); Chloride 110 mmol/L (98-107); Glucose 94 mg/dL (74-99); Potassium 4.1 mmol/L (3.5-5.1); Sodium 140 mmol/L (137-145)
[2018-07-31 12:27] LABS: Glucose,Whole Blood 94 mg/dL (75-99)
--- NOTE | 2018-07-31 13:49 | P.DS ---
Providers Date of admission: 07/18/18 14:53 Expected date of discharge: 07/31/18 Attending physician: Kee Dias MD Consults: 07/17/18 19:43 Consult Physician Stat Consulting Provider: Sly Saxena Consult Reason/Comments: intractable vomiting, gastroparesis Do you want consulting provider notified?: Yes, Notify in am 07/26/18 09:16 Consult Physician Routine Consulting Provider: Jarred Guevara Consult Reason/Comments: gastroparesis/ fever Do you want consulting provider notified?: Already Contacted Primary care physician: [facility] [place] Course: The patient is a 38-year-old female with a PMH of idiopathic gastroparesis, on a Propulsid trial through [facility], chronic enteral nutrition via J-tube, history of TPN via PICC line, and history of DVT and PE (failed Xarelto, currently on Lovenox), and hypothyroidism who presented to the ED with complaints of abdominal pain, nausea, and vomiting. Patient noted that her symptoms are similar to her prior flares of gastroparesis. The patient was subsequently admitted to the medicine service for further management. The patient had noted that due to her trial, she was strongly advised to avoid any medications that prolong her QT interval. The patient continued to have intractable nausea and vomiting that was resistant to therapy, especially since she was unable to receive conventional antiemetics i.e. Zofran or Reglan. At the patient's symptoms were improving, she began to have high-grade fevers. Infectious disease was consulted and the patient was started on broad-spectrum empiric antibiotics with cefepime and vancomycin. The patient was subsequently noted to have right antecubital thrombophlebitis. The patient's fevers subsequently resolved and her symptoms continued to gradually improve. She was seen and examined at the bedside on 07/31/2018. She reported that she continues to have nausea with some vomiting, though it has decreased since admission. The patient noted that she has tolerated her tube feeds well and mentioned that her abdominal pain has improved somewhat since admission. Discussed with the patient in detail regarding the importance of her follow-up with [facility] and [facility] due to the complicated nature of her disease. The patient noted that she will make an effort to follow up with him in that for future admissions, she will attempt to go to those facilities. The patient is presently agreeable and ready for discharge to home. Physical Examination General: Non-toxic, in no acute distress, appears stated age, normal weight HEENT: NC/AT, anicteric sclerae, moist conjunctiva, no lid-lag, PERRLA Cardiovascular: S1/S2 wnl, no murmurs, rubs, or gallops Lungs: Clear to auscultation, normal respiratory effort, no accessory muscle use Abdominal: Soft, non-tender, non-distended, no guarding, rebound, or rigidity Skin: Warm, dry Extremities: No edema or contractures Psychiatric: Alert and oriented to person, place and time, appropriate affect Neuro: CN II-XII grossly intact, Strength 5/5 in all 4 extremities, Speech intact, Sensation to light touch grossly intact throughout Discharge diagnosis: Gastroparesis flare; chronic enteral nutrition; right arm thrombophlebitis; hypothyroidism; history of PE; transaminitis, resolved; hyperchloremia, resolved A total of 40 minutes of time were spent preparing this complex discharge summary. Patient Condition at Discharge: Stable Plan - Discharge Summary Discharge Rx Participant: No New Discharge Prescriptions: New Scopolamine 1.5MG/72Hr Patch [TransDerm Scop] 1 patch TRANSDERM Q72H #10 patch Continue Lansoprazole [Prevacid] 30 mg PO BID Montelukast Chew [Singulair] 10 mg PO DAILY Linaclotide [Linzess] 290 mcg PO DAILY Thyroid,Pork [Material Spreader Thyroid] 90 mg PO DAILY oxyCODONE HCL [oxyCODONE HCL (IR)] 10 mg PO Q6H PRN PRN Reason: Pain Enoxaparin [Lovenox] 135 mg SQ DAILY Propulsid 20 ml PO QID Topiramate [Trokendi Xr] 50 mg PO DAILY Discharge Medication List Lansoprazole [Prevacid] 30 mg PO BID 02/02/18 [History] Montelukast Chew [Singulair] 10 mg PO DAILY 02/02/18 [History] Linaclotide [Linzess] 290 mcg PO DAILY 03/10/18 [History] Thyroid,Pork [Material Spreader Thyroid] 90 mg PO DAILY 04/08/18 [History] oxyCODONE HCL [oxyCODONE HCL (IR)] 10 mg PO Q6H PRN 05/09/18 [History] Enoxaparin [Lovenox] 135 mg SQ DAILY 06/29/18 [History] Propulsid 20 ml PO QID 07/17/18 [History] Topiramate [Trokendi Xr] 50 mg PO DAILY 07/18/18 [History] Scopolamine 1.5MG/72Hr Patch [TransDerm Scop] 1 patch TRANSDERM Q72H #10 patch 07/31/18 [Rx] Follow up Appointment(s)/Referral(s): Karthikeyan Pedro MD [Primary Care Provider] - 08/02/18 10:30 am Patient Instructions/Handouts: Gastroparesis (DC) Activity/Diet/Wound Care/Special Instructions: Activity as tolerated. Follow up at [facility] for GI appointment. Continue tube feeds as at home with Peptamen 60 ml/hr as tolerated with water flushes. Discharge Disposition: HOME SELF-CARE
== END 2018-07-31 12:35 | disposition home or self-care (01) | DRG 392 ==
LOC: EC 15:34 → 4SSUR 20:26 → OBSVTOIN 07-18 14:53 → 6PED 07-21 17:30 → 4SSUR 07-27 05:34
PROVIDERS: ADMIT Internal Medicine; ATTEND Internal Medicine
PROC: 05HC33Z Insertion of Infusion Device into Left Basilic Vein, Percutaneous Approach (ICD-10-PCS; principal; 2018-07-25 10:15)
DX: K31.84 Gastroparesis (principal); E87.2 Acidosis; L03.113 Cellulitis of right upper limb; E03.9 Hypothyroidism, unspecified; E87.8 Other disorders of electrolyte and fluid balance, not elsewhere classified; F32.9 Major depressive disorder, single episode, unspecified; G89.29 Other chronic pain; I80.8 Phlebitis and thrombophlebitis of other sites; K21.9 Gastro-esophageal reflux disease without esophagitis; R13.10 Dysphagia, unspecified; K59.9 Functional intestinal disorder, unspecified; Z79.01 Long term (current) use of anticoagulants; Z79.899 Other long term (current) drug therapy; Z82.49 Family history of ischemic heart disease and other diseases of the circulatory system; Z86.711 Personal history of pulmonary embolism; Z86.718 Personal history of other venous thrombosis and embolism; Z93.4 Other artificial openings of gastrointestinal tract status; Z96.89 Presence of other specified functional implants; R94.5 Abnormal results of liver function studies; Z90.49 Acquired absence of other specified parts of digestive tract; Z79.890 Hormone replacement therapy; R53.83 Other fatigue
CPT/HCPCS: 36410; 36415; 71045; 71275; 74021; 74176; 74177; 76705; 76937; 80048; 80053; 80076; 80202; 81001; 81003; 82150; 82728; 83540; 83550; 83605; 83690; 84484; 85025; 85027; 85652; 87040; 87324; 87502; 96361; 96374; 96375; 96376; 99285

== ENCOUNTER 2018-08-01 21:35 | Emergency (ER) | payer BC ==
[2018-08-01] MEDS ORDERED: SODIUM CHLORIDE 0.9% 1,000 ML IV STA (22:20)
[2018-08-01] MEDS ORDERED: diphenhydrAMINE 50 MG/ML 1 ML VIAL IVP STA (23:05)
[2018-08-01] MEDS ORDERED: LORazepam 2 MG/ML INJ IV STA (23:05)
--- NOTE | 2018-08-01 23:20 | XR ---
INDICATION: Syncope COMPARISON: CXR 07/26/18 FINDINGS: Frontal and lateral views of the chest are provided. The lungs are clear. There is no pleural effusion or pneumothorax. Cardiomediastinal and pulmonary vascularity are normal. Regional skeleton appears intact. IMPRESSION: No acute cardiopulmonary disease.
[2018-08-01 23:51] LABS: Basophils # (A) 0.1 k/uL (0-0.2); Basophils % (A) 1 %; Eosinophils # (A) 0.1 k/uL (0-0.7); Eosinophils % (A) 2 %; HCT 45.8 % (34.0-46.0); HGB 14.6 gm/dL (11.4-16.0); Lymphocytes # (A) 2.1 k/uL (1.0-4.8); Lymphocytes % (A) 26 %; MCH 26.7 pg (25.0-35.0); MCHC 31.8 g/dL (31.0-37.0); MCV 83.8 fL (80.0-100.0); Mean Platelet Volume 6.3; Monocytes # (A) 0.5 k/uL (0-1.0); Monocytes % (A) 6 %; Neutrophils # (A) 5.1 k/uL (1.3-7.7); Neutrophils % (A) 63 %; Platelet Count 378 k/uL (150-450); RBC 5.46 m/uL (3.80-5.40); RDW 15.4 % (11.5-15.5); WBC 8.1 k/uL (3.8-10.6)
[2018-08-02 00:02] LABS: Appearance,Urine Clear (Clear); Bacteria,Urine Rare /hpf; Bilirubin,Urine Negative (Negative); Blood,Urine Negative (Negative); Color,Urine Yellow; Glucose,Urine (UA) Negative (Negative); Hyaline Casts,Urine 2 /lpf (0-2); Ketones,Urine 4+ (Negative); Leukocyte Esterase,Urine Moderate (Negative); Mucus,Urine Many /hpf; Nitrite,Urine Negative (Negative); Protein,Urine 1+ (Negative); RBC,Urine 1 /hpf (0-5); Specific Gravity,Urine 1.033 (1.001-1.035); Squamous Epithelial Cell,Urine 11 /hpf (0-4); WBC,Urine 15 /hpf (0-5)
[2018-08-02 00:08] LABS: ALT 37 U/L (9-52); AST 16 U/L (14-36); Albumin 4.2 g/dL (3.5-5.0); Alkaline Phosphatase 152 U/L (38-126); Anion Gap 12 mmol/L; Blood Urea Nitrogen 12 mg/dL (7-17); Calcium 9.9 mg/dL (8.4-10.2); Carbon Dioxide 18 mmol/L (22-30); Chloride 111 mmol/L (98-107); Glucose 83 mg/dL (74-99); Magnesium 2.2 mg/dL (1.6-2.3); Potassium 4.2 mmol/L (3.5-5.1); Sodium 141 mmol/L (137-145); Total Bilirubin 0.4 mg/dL (0.2-1.3); Total Protein 7.2 g/dL (6.3-8.2)
[2018-08-02] MEDS ORDERED: SODIUM CHLORIDE 0.9% 1,000 ML IV STA (00:09)
[2018-08-02 00:19] LABS: INR 1.1 (<1.2); Partial Thromboplastin Time 25.2 sec (22.0-30.0); Prothrombin Time 11.6 sec (9.0-12.0)
--- NOTE | 2018-08-02 00:24 | ED ---
General Adult HPI - General Chief complaint: Syncope Stated complaint: Near syncope Time Seen by Provider: 08/01/18 21:53 Source: patient, RN notes reviewed Mode of arrival: wheelchair Limitations: no limitations - History of Present Illness Initial comments: 38-year-old female with a past medical history of idiopathic gastroparesis on a Propulsid trial through [facility], chronic anterior lateral nutrition via J-tube, and history of DVT/PE on Lovenox presents to the emergency department for a chief complaint of lightheadedness. Patient states every time she stands she feels very weak and lightheaded. States that she is also very nauseous. States that she was recently released from the hospital yesterday but has not been able to do any J-tube feedings or by mouth intake due to nausea. She is not able to take conventional anti-emetics due to medication trial of Propulsid. During patient's admission she was seen by GI where she was subsequently released with gradual improvement of symptoms. She did have high-grade fevers of 102 however these are related to a previous IV site where patient had thrombophlebitis. She does have physicians at [facility] and [facility] [place]. According to discharge note it does appear that dr dias recommended further inpatient admissions to occur at tertiary care facilities. Patient has no other complaints at this time including shortness of breath, chest pain, headache, or visual changes. - Related Data Home Medications Medication Instructions Recorded Confirmed Lansoprazole [Prevacid] 30 mg PO BID 02/02/18 08/01/18 Montelukast Chew [Singulair] 10 mg PO DAILY 02/02/18 08/01/18 Linaclotide [Linzess] 290 mcg PO DAILY 03/10/18 08/01/18 Thyroid,Pork [Traffic Assistant Thyroid] 90 mg PO DAILY 04/08/18 08/01/18 oxyCODONE HCL [oxyCODONE HCL (IR)] 10 mg PO Q6H PRN 05/09/18 08/01/18 Enoxaparin [Lovenox] 135 mg SQ DAILY 06/29/18 08/01/18 Propulsid 20 ml PO QID 07/17/18 08/01/18 Topiramate [Trokendi Xr] 50 mg PO DAILY 07/18/18 08/01/18 Previous Rx's Medication Instructions Recorded Scopolamine 1.5MG/72Hr Patch 1 patch TRANSDERM Q72H #10 patch 07/31/18 [TransDerm Scop] Allergies Allergy/AdvReac Type Severity Reaction Status Date / Time prochlorperazine Allergy JITTERY Verified 08/01/18 22:19 [From Compazine] metoclopramide [From Reglan] AdvReac jittery Verified 08/01/18 22:19 Review of Systems ROS Statement: Those systems with pertinent positive or pertinent negative responses have been documented in the HPI. ROS Other: All systems not noted in ROS Statement are negative. Past Medical History Past Medical History: GERD/Reflux, Pulmonary Embolus (PE), Thyroid Disorder Additional Past Medical History / Comment(s): Idiopathic gastroparesis, takes little in orally-has J tube for feedings and Piccs for TPN, bacteremia/picc l ine, R pulmonary embolism, pancreatitis, hypothyroid, chronic anemia, sinus problems, migraine History of Any Multi-Drug Resistant Organisms: None Reported Past Surgical History: Section, Cholecystectomy, Hernia Repair, Tonsillectomy Additional Past Surgical History / Comment(s): Picc lines with last one placed 04/2018, gastric pacer with removal, J tube, x3, 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 Past Anesthesia/Blood Transfusion Reactions: No Reported Reaction Past Psychological History: Depression Smoking Status: Never smoker Past Alcohol Use History: None Reported Past Drug Use History: None Reported - Past Family History Father Family Medical History: Hypertension Additional Family Medical History / Comment(s): DAD IS 56 AND IN [facility] Mother Additional Family Medical History / Comment(s): MOM IS 56 AND IN [facility] General Exam Limitations: no limitations General appearance: alert, in no apparent distress Head exam: Present: atraumatic, normocephalic, normal inspection Eye exam: Present: normal appearance, PERRL, EOMI. Absent: scleral icterus, conjunctival injection, periorbital swelling ENT exam: Present: normal exam, mucous membranes moist Neck exam: Present: normal inspection, full ROM. Absent: tenderness, menin gismus, lymphadenopathy Respiratory exam: Present: normal lung sounds bilaterally. Absent: respiratory distress, wheezes, rales, rhonchi, stridor Cardiovascular Exam: Present: regular rate, normal rhythm, normal heart sounds. Absent: systolic murmur, diastolic murmur, rubs, gallop, clicks GI/Abdominal exam: Present: soft, tenderness (Tenderness noted in the epigastric area), normal bowel sounds. Absent: distended, guarding, rebound, rigid Neurological exam: Present: alert, oriented X3, CN II-XII intact Psychiatric exam: Present: normal affect, normal mood Course Vital Signs 08/01/18 08/01/18 08/01/18 21:38 22:54 23:47 Temperature 98.5 F 98 F Pulse Rate 101 H 75 84 Respiratory 18 18 16 Rate Blood Pressure 122/84 120/78 120/78 O2 Sat by Pulse 100 100 100 Oximetry Medical Decision Making - Medical Decision Making 38 year old female with a past medical history of gastroparesis currently on Propulsid trial through [facility] presents to the emergency department for lightheadedness. Patient was recently released from the hospital yesterday. She has had lightheadedness throughout the day today worsen with standing. Very nauseous. Unable to tolerate J-tube or PO intake. Vitals are stable. CBC CMP unremarkable. Urine does show some evidence of ketones, likely related to dehydration as patient had not had oral intake for 2 days. EKG shows a normal sinus rhythm with a ventricular rate of 78. CT of the chest abdomen and pelvis from July 17 were reviewed as well as the CT abdomen and pelvis from July 21. No significant findings. Ultrasound of the right upper quadrant obtained on July 17 did not show acute findings. Patient notes were reviewed and it appears as though Dr. Dias recommended further admissions be throughout tertiary care facility such as a [place] where patient's primary care provider is. I di d discuss options with patient including talking with [facility] to see if they would accept admision here or transferring her to try [facility]. I did ultimately recommend transfer. However Patient states she is supposed to go to [facility] in 3 days. States she would prefer to go home at this time rather than be admitted. Patient does agree to go to try [facility] if she is starting to feel worse. Otherwise she will follow-up with her GI specialist through [facility] as well as her primary care provider. - Lab Data Result diagrams: 08/01/18 23:28 08/01/18 23:28 Lab Results 04/08/01/18 08/01/18 Range/Units 23:21 23:21 23:28 WBC 8.1 (3.8-10.6) k/uL RBC 5.46 H (3.80-5.40) m/uL Hgb 14.6 (11.4-16.0) gm/dL Hct 45.8 (34.0-46.0) % MCV 83.8 (80.0-100.0) fL MCH 26.7 (25.0-35.0) pg MCHC 31.8 (31.0-37.0) g/dL RDW 15.4 (11.5-15.5) % Plt Count 378 (150-450) k/uL Neutrophils % 63 % Lymphocytes % 26 % Monocytes % 6 % Eosinophils % 2 % Basophils % 1 % Neutrophils # 5.1 (1.3-7.7) k/uL Lymphocytes # 2.1 (1.0-4.8) k/uL Monocytes # 0.5 (0-1.0) k/uL Eosinophils # 0.1 (0-0.7) k/uL Basophils # 0.1 (0-0.2) k/uL PT (9.0-12.0) sec INR (<1.2) APTT (22.0-30.0) sec Sodium (137-145) mmol/L Potassium (3.5-5.1) mmol/L Chloride (98-107) mmol/L Carbon Dioxide (22-30) mmol/L Anion Gap mmol/L BUN (7-17) mg/dL Creatinine (0.52-1.04) mg/dL Est GFR (CKD-EPI)AfAm (>60 ml/min/1.73 sqM) Est GFR (CKD-EPI)NonAf (>60 ml/min/1.73 sqM) Glucose (74-99) mg/dL Calcium (8.4-10.2) mg/dL Magnesium (1.6-2.3) mg/dL Total Bilirubin (0.2-1.3) mg/dL AST (14-36) U/L ALT (9-52) U/L Alkaline Phosphatase (38-126) U/L Troponin I (0.000-0.034) ng/mL Total Protein (6.3-8.2) g/dL Albumin (3.5-5.0) g/dL Urine Color Yellow Urine Appearance Clear (Clear) Urine pH 6.0 (5.0-8.0) Ur Specific [place] 1.033 (1.001-1.035) Urine Protein 1+ H (Negative) Urine Glucose (UA) Negative (Negative) Urine Ketones 4+ H (Negative) Urine Blood Negative (Negative) Urine Nitrite Negative (Negative) Urine Bilirubin Negative (Negative) Urine Urobilinogen 2.0 (<2.0) mg/dL Ur Leukocyte Esterase Moderate H (Negative) Urine RBC 1 (0-5) /hpf Urine WBC 15 H (0-5) /hpf Ur Squamous Epith Cells 11 H (0-4) /hpf Urine Bacteria Rare H (None) /hpf Hyaline Casts 2 (0-2) /lpf Urine Mucus Many H (None) /hpf Urine HCG, Qual Not Detected (Not Detectd) 08/01/18 08/01/18 08/01/18 Range/Units 23:28 23:28 23:28 WBC (3.8-10.6) k/uL RBC (3.80-5.40) m/uL Hgb (11.4-16.0) gm/dL Hct (34.0-46.0) % MCV (80.0-100.0) fL MCH (25.0-35.0) pg MCHC (31.0-37.0) g/dL RDW (11.5-15.5) % Plt Count (150-450) k/uL Neutrophils % % Lymphocytes % % Monocytes % % Eosinophils % % Basophils % % Neutrophils # (1.3-7.7) k/uL Lymphocytes # (1.0-4.8) k/uL Monocytes # (0-1.0) k/uL Eosinophils # (0-0.7) k/uL Basophils # (0-0.2) k/uL PT 11.6 (9.0-12.0) sec INR 1.1 (<1.2) APTT 25.2 (22.0-30.0) sec Sodium 141 (137-145) mmol/L Potassium 4.2 (3.5-5.1) mmol/L Chloride 111 H (98-107) mmol/L Carbon Dioxide 18 L (22-30) mmol/L Anion Gap 12 mmol/L BUN 12 (7-17) mg/dL Creatinine 0.57 (0.52-1.04) mg/dL Est GFR (CKD-EPI)AfAm >90 (>60 ml/min/1.73 sqM) Est GFR (CKD-EPI)NonAf >90 (>60 ml/min/1.73 sqM) Glucose 83 (74-99) mg/dL Calcium 9.9 (8.4-10.2) mg/dL Magnesium 2.2 (1.6-2.3) mg/dL Total Bilirubin 0.4 (0.2-1.3) mg/dL AST 16 (14-36) U/L ALT 37 (9-52) U/L Alkaline Phosphatase 152 H (38-126) U/L Troponin I <0.012 (0.000-0.034) ng/mL Total Protein 7.2 (6.3-8.2) g/dL Albumin 4.2 (3.5-5.0) g/dL Urine Color Urine Appearance (Clear) Urine pH (5.0-8.0) Ur Specific [place] (1.001-1.035) Urine Protein (Negative) Urine Glucose (UA) (Negative) Urine Ketones (Negative) Urine Blood (Negative) Urine Nitrite (Negative) Urine Bilirubin (Negative) Urine Urobilinogen (<2.0) mg/dL Ur Leukocyte Esterase (Negative) Urine RBC (0-5) /hpf Urine WBC (0-5) /hpf Ur Squamous Epith Cells (0-4) /hpf Urine Bacteria (None) /hpf Hyaline Casts (0-2) /lpf Urine Mucus (None) /hpf Urine HCG, Qual (Not Detectd) Disposition Clinical Impression: Lightheadedness, Dehydration Disposition: HOME SELF-CARE Condition: Good Instructions (If sedation given, give patient instructions): Acute Nausea and Vomiting (ED), Lightheadedness (ED) Additional Instructions: Please follow up with your GI specialist as well as primary care. If you are having worsening symptoms you can return either to the nearest emergency department or to [facility]. Is patient prescribed a controlled substance at d/c from ED?: No Referrals: Karthikeyan Pedro MD [Primary Care Provider] - 1-2 days Time of Disposition: 00:56
[2018-08-02] MEDS ORDERED: HYDROmorphone 0.5 MG/0.5 ML SYRINGE IVP STA (00:41)
[2018-08-02] MEDS ORDERED: HYDROmorphone 1 MG/ML 1 ML SYRINGE IVP STA (00:46)
[2018-08-02 02:10] VITALS: BP 114/64; PULSE 81; RESP 18; TEMP 97.6
== END 2018-08-02 02:06 | disposition home or self-care (01) ==
LOC: EC 21:35
DX: E86.0 Dehydration (principal); R42 Dizziness and giddiness; R55 Syncope and collapse; R53.1 Weakness; R11.0 Nausea; R82.4 Acetonuria; K21.9 Gastro-esophageal reflux disease without esophagitis; E03.9 Hypothyroidism, unspecified; G43.909 Migraine, unspecified, not intractable, without status migrainosus; Z86.711 Personal history of pulmonary embolism; Z79.890 Hormone replacement therapy; Z79.01 Long term (current) use of anticoagulants; Z88.8 Allergy status to other drugs, medicaments and biological substances
CPT/HCPCS: 36415; 93005; 80053; 83735; 84484; 85025; 85610; 85730; 81001; 81025; 87086; 71046; 99284; 96374; 96375 ×2; 96361 ×3; J2060; J1200; J1170

== ENCOUNTER 2018-08-21 18:24 | Emergency (ER) | payer BC ==
[2018-08-21] MEDS ORDERED: SODIUM CHLORIDE 0.9% 1,000 ML IV STA (19:00)
[2018-08-21] MEDS ORDERED: SODIUM CHLORIDE 0.9% 500 ML 500 ML IV STA (19:00)
[2018-08-21] MEDS ORDERED: KETOROLAC 30 MG/ML 1 ML VIAL IVP STA (19:01)
[2018-08-21] MEDS ORDERED: PROMETHAZINE INJ 25 MG in SODIUM CHLORIDE 0.9% 50 ML IVPB STA (19:01)
[2018-08-21] MEDS ORDERED: diphenhydrAMINE 50 MG/ML 1 ML VIAL IVP STA (19:01)
--- NOTE | 2018-08-21 19:22 | ED ---
Nausea/Vomiting/Diarrhea HPI - General Source: patient Mode of arrival: ambulatory Limitations: no limitations <Paula Marshall - Last Filed: 08/22/18 02:38> <Mag Figueroa - Last Filed: 08/22/18 22:23> - General Chief complaint: Nausea/Vomiting/Diarrhea Stated complaint: vomiting/migraine Time Seen by Provider: 08/21/18 18:37 - History of Present Illness Initial comments: 38-year-old female patient with past medical history significant for gastroparesis status post J-tube placement. Patient states that for the last couple of days she has noticed an increase in her abdominal pain and nausea. Patient states today she started vomiting. Patient states she has had multiple episodes of vomiting is now dry heaving. States that she has developed a migraine headache related to this. Patient states she did try her Imitrex at home and it did not help the headache. She states she is having light and sound sensitivity with her headache. Denies any numbness, tingling, or weakness to extremities. States she also tried to administer Phenergan through her J-tube as well as a suppository however is not helping. Patient states that she is having diarrhea so she does not believe the suppository state in. Patient states been having diarrhea for the last 3 days. Denies any hematochezia or melena. Denies any fever or chills. Patient denies any recent travel or sick contacts. Denies any recent antibiotic use. Patient denies any recent rash, shortness breath, chest pain, back pain, dizziness, weakness, hematuria, dysuria, urinary urgency, urinary frequency, or any other complaints. (Paula Marshall) - Related Data Home Medications Medication Instructions Recorded Confirmed Lansoprazole [Prevacid] 30 mg PO BID 02/02/18 08/21/18 Montelukast Chew [Singulair] 10 mg PO DAILY 02/02/18 08/21/18 Linaclotide [Linzess] 290 mcg PO DAILY 03/10/18 08/21/18 Thyroid,Pork [Flipping Machine Operator Thyroid] 90 mg PO DAILY 04/08/18 08/21/18 oxyCODONE HCL [oxyCODONE HCL (IR)] 10 mg PO Q6H PRN 05/09/18 08/21/18 Topiramate [Trokendi Xr] 50 mg PO DAILY 07/18/18 08/21/18 Apixaban [Eliquis] 5 mg PO BID 08/21/18 08/21/18 SUMAtriptan SUCCINATE [Imitrex] 50 mg PO DAILY PRN 08/21/18 08/21/18 Previous Rx's Medication Instructions Recorded Scopolamine 1.5MG/72Hr Patch 1 patch TRANSDERM Q72H #10 patch 07/31/18 [TransDerm Scop] Allergies Allergy/AdvReac Type Severity Reaction Status Date / Time metoclopramide [From Reglan] AdvReac jittery Verified 08/21/18 18:47 prochlorperazine AdvReac JITTERY Verified 08/21/18 18:47 [From Compazine] Review of Systems ROS Other: All systems not noted in ROS Statement are negative. <Paula Marshall - Last Filed: 08/22/18 02:38> ROS Other: All systems not noted in ROS Statement are negative. <Mag Figueroa - Last Filed: 08/22/18 22:23> ROS Statement: Those systems with pertinent positive or pertinent negative responses have been documented in the HPI. Past Medical History Past Medical History: GERD/Reflux, Pulmonary Embolus (PE), Thyroid Disorder Additional Past Medical History / Comment(s): Idiopathic gastroparesis, takes little in orally-has J tube for feedings,R pulmonary embolism, pancreatitis, hypothyroid, chronic anemia, sinus problems, migraine History of Any Multi-Drug Resistant Organisms: VRE Date of last positivie culture/infection: 08/01/18 MDRO Source:: VRE URINE Past Surgical History: Section, Cholecystectomy, Hernia Repair, Tonsillectomy Additional Past Surgical History / Comment(s): Picc lines with last one placed 04/2018, gastric pacer with removal, J tube, x3, 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 Past Anesthesia/Blood Transfusion Reactions: No Reported Reaction Past Psychological History: Depression Smoking Status: Never smoker Past Alcohol Use History: None Reported Past Drug Use History: None Reported - Past Family History Father Family Medical History: Hypertension Additional Family Medical History / Comment(s): DAD IS 56 AND IN [facility] Mother Additional Family Medical History / Comment(s): MOM IS 56 AND IN GOOD HEALTH <RolandoPaula M - Last Filed: 08/22/18 02:38> General Exam Limitations: no limitations General appearance: alert, in no apparent distress Eye exam: Present: normal appearance, PERRL, EOMI. Absent: scleral icterus, conjunctival injection, periorbital swelling ENT exam: Present: normal exam, normal oropharynx, mucous membranes moist Respiratory exam: Present: normal lung sounds bilaterally. Absent: respiratory distress, wheezes, rales, rhonchi, stridor Cardiovascular Exam: Present: regular rate, normal rhythm, normal heart sounds. Absent: systolic murmur, diastolic murmur, rubs, gallop, clicks GI/Abdominal exam: Present: soft, tenderness (Midepigastric tenderness), normal bowel sounds. Absent: distended, guarding, rebound, rigid Neurological exam: Present: alert, oriented X3, CN II-XII intact, other (Strength in all 4 extremities is 5/5) Psychiatric exam: Present: normal affect, normal mood Skin exam: Present: warm, dry, intact, normal color. Absent: rash <Paula Marshall M - Last Filed: 08/22/18 02:38> Course Vital Signs 08/21/18 08/21/18 08/21/18 18:25 21:37 22:46 Temperature 98.4 F 98 F Pulse Rate 78 74 76 Respiratory 18 20 18 Rate Blood Pressure 118/83 133/66 123/68 O2 Sat by Pulse 99 97 99 Oximetry Medical Decision Making - Lab Data Result diagrams: 08/21/18 19:42 08/21/18 19:42 <Paula Marshall M - Last Filed: 08/22/18 02:38> - Lab Data Result diagrams: 08/21/18 19:42 08/21/18 19:42 <Mag Figueroa - Last Filed: 08/22/18 22:23> - Medical Decision Making 38 old female patient with a history of gastroparesis with an inserted J-tube presents to the emergency department today for evaluation of vomiting and migraine headache. Physical examination reveals mild upper abdominal tenderness. Labs reviewed and are unremarkable. Patient was given IV medication and fluids here in the department. She did not have any improvement with the first round of medications so we did administer daughter and Zofran. Upon reevaluation patient does report improvement of symptoms is requesting discharge home. She is instructed to follow-up with her primary care physician for recheck as soon as possible. Return parameters discussed in detail. She verbalizes understanding and agrees with this plan (Paula Marshall) I was available for consultation in the emergency department. The history and physical exam were done by the Midlevel Provider. Medical decision making was d one by the Midlevel Provider. I have reviewed the chart, however was not consulted specifically or made aware of this patient by the above midlevel provider and did not personally evaluate, interact with, or disposition this patient on the day of their visit Chart was dictated using [employer] dictation software. Attempts were made to correct any dictation errors however some typographical errors may persist. (Mag Figueroa) - Lab Data Lab Results 08/21/18 08/21/18 08/21/18 Range/Units 19:42 19:42 21:40 WBC 10.0 (3.8-10.6) k/uL RBC 5.92 H (3.80-5.40) m/uL Hgb 15.5 (11.4-16.0) gm/dL Hct 48.6 H (34.0-46.0) % MCV 82.1 (80.0-100.0) fL MCH 26.2 (25.0-35.0) pg MCHC 31.9 (31.0-37.0) g/dL RDW 15.1 (11.5-15.5) % Plt Count 289 (150-450) k/uL Neutrophils % 65 % Lymphocytes % 27 % Monocytes % 5 % Eosinophils % 2 % Basophils % 1 % Neutrophils # 6.4 (1.3-7.7) k/uL Lymphocytes # 2.7 (1.0-4.8) k/uL Monocytes # 0.5 (0-1.0) k/uL Eosinophils # 0.2 (0-0.7) k/uL Basophils # 0.1 (0-0.2) k/uL Sodium 142 (137-145) mmol/L Potassium 4.3 (3.5-5.1) mmol/L Chloride 112 H (98-107) mmol/L Carbon Dioxide 20 L (22-30) mmol/L Anion Gap 10 mmol/L BUN 9 (7-17) mg/dL Creatinine 0.74 (0.52-1.04) mg/dL Est GFR (CKD-EPI)AfAm >90 (>60 ml/min/1.73 sqM) Est GFR (CKD-EPI)NonAf >90 (>60 ml/min/1.73 sqM) Glucose 86 (74-99) mg/dL Calcium 10.4 H (8.4-10.2) mg/dL Total Bilirubin 0.5 (0.2-1.3) mg/dL AST 18 (14-36) U/L ALT 21 (9-52) U/L Alkaline Phosphatase 121 (38-126) U/L Total Protein 7.7 (6.3-8.2) g/dL Albumin 4.7 (3.5-5.0) g/dL Amylase 75 (30-110) U/L Lipase 32 (23-300) U/L Urine Color Light Yellow Urine Appearance Clear (Clear) Urine pH 5.5 (5.0-8.0) Ur Specific [place] 1.007 (1.001-1.035) Urine Protein Negative (Negative) Urine Glucose (UA) Negative (Negative) Urine Ketones Negative (Negative) Urine Blood Negative (Negative) Urine Nitrite Negative (Negative) Urine Bilirubin Negative (Negative) Urine Urobilinogen <2.0 (<2.0) mg/dL Ur Leukocyte Esterase Negative (Negative) Urine HCG, Qual (Not Detectd) 08/21/18 Range/Units 21:40 WBC (3.8-10.6) k/uL RBC (3.80-5.40) m/uL Hgb (11.4-16.0) gm/dL Hct (34.0-46.0) % MCV (80.0-100.0) fL MCH (25.0-35.0) pg MCHC (31.0-37.0) g/dL RDW (11.5-15.5) % Plt Count (150-450) k/uL Neutrophils % % Lymphocytes % % Monocytes % % Eosinophils % % Basophils % % Neutrophils # (1.3-7.7) k/uL Lymphocytes # (1.0-4.8) k/uL Monocytes # (0-1.0) k/uL Eosinophils # (0-0.7) k/uL Basophils # (0-0.2) k/uL Sodium (137-145) mmol/L Potassium (3.5-5.1) mmol/L Chloride (98-107) mmol/L Carbon Dioxide (22-30) mmol/L Anion Gap mmol/L BUN (7-17) mg/dL Creatinine (0.52-1.04) mg/dL Est GFR (CKD-EPI)AfAm (>60 ml/min/1.73 sqM) Est GFR (CKD-EPI)NonAf (>60 ml/min/1.73 sqM) Glucose (74-99) mg/dL Calcium (8.4-10.2) mg/dL Total Bilirubin (0.2-1.3) mg/dL AST (14-36) U/L ALT (9-52) U/L Alkaline Phosphatase (38-126) U/L Total Protein (6.3-8.2) g/dL Albumin (3.5-5.0) g/dL Amylase (30-110) U/L Lipase (23-300) U/L Urine Color Urine Appearance (Clear) Urine pH (5.0-8.0) Ur Specific [place] (1.001-1.035) Urine Protein (Negative) Urine Glucose (UA) (Negative) Urine Ketones (Negative) Urine Blood (Negative) Urine Nitrite (Negative) Urine Bilirubin (Negative) Urine Urobilinogen (<2.0) mg/dL Ur Leukocyte Esterase (Negative) Urine HCG, Qual Not Detected (Not Detectd) Disposition Is patient prescribed a controlled substance at d/c from ED?: No Time of Disposition: 22:27 <Paula Marshall M - Last Filed: 08/22/18 02:38> <Mag Figueroa - Last Filed: 08/22/18 22:23> Clinical Impression: Gastroparesis, Abdominal pain, Migraine headache Disposition: HOME SELF-CARE Condition: Good Instructions (If sedation given, give patient instructions): Migraine Headache (ED), Acute Nausea and Vomiting (ED), Abdominal Pain (ED) Additional Instructions: Start with clear liquid diet and advance as tolerated. Take all medications as directed. Follow-up with your primary care physician for recheck this as possible. Return to the emergency department immediately for any new, worsening, or concerning symptoms. Referrals: Karthikeyan Pedro MD [Primary Care Provider] - 1-2 days
[2018-08-21 19:57] LABS: Basophils # (A) 0.1 k/uL (0-0.2); Basophils % (A) 1 %; Eosinophils # (A) 0.2 k/uL (0-0.7); Eosinophils % (A) 2 %; HCT 48.6 % (34.0-46.0); HGB 15.5 gm/dL (11.4-16.0); Lymphocytes # (A) 2.7 k/uL (1.0-4.8); Lymphocytes % (A) 27 %; MCH 26.2 pg (25.0-35.0); MCHC 31.9 g/dL (31.0-37.0); MCV 82.1 fL (80.0-100.0); Mean Platelet Volume 6.5; Monocytes # (A) 0.5 k/uL (0-1.0); Monocytes % (A) 5 %; Neutrophils # (A) 6.4 k/uL (1.3-7.7); Neutrophils % (A) 65 %; Platelet Count 289 k/uL (150-450); RBC 5.92 m/uL (3.80-5.40); RDW 15.1 % (11.5-15.5)
[2018-08-21 20:06] LABS: ALT 21 U/L (9-52); AST 18 U/L (14-36); Albumin 4.7 g/dL (3.5-5.0); Alkaline Phosphatase 121 U/L (38-126); Amylase 75 U/L (30-110); Anion Gap 10 mmol/L; Blood Urea Nitrogen 9 mg/dL (7-17); Calcium 10.4 mg/dL (8.4-10.2); Carbon Dioxide 20 mmol/L (22-30); Chloride 112 mmol/L (98-107); Glucose 86 mg/dL (74-99); Lipase 32 U/L (23-300); Potassium 4.3 mmol/L (3.5-5.1); Sodium 142 mmol/L (137-145); Total Bilirubin 0.5 mg/dL (0.2-1.3); Total Protein 7.7 g/dL (6.3-8.2)
[2018-08-21] MEDS ORDERED: ONDANSETRON 4 MG/2 ML VIAL IVP STA (21:24)
[2018-08-21] MEDS ORDERED: HYDROmorphone 2 MG/ML 1 ML SYRINGE IVP STA (21:24)
[2018-08-21 21:50] LABS: Appearance,Urine Clear (Clear); Bilirubin,Urine Negative (Negative); Blood,Urine Negative (Negative); Color,Urine Light Yellow; Glucose,Urine (UA) Negative (Negative); Ketones,Urine Negative (Negative); Leukocyte Esterase,Urine Negative (Negative); Nitrite,Urine Negative (Negative); PH, Urine 5.5 (5.0-8.0); Protein,Urine Negative (Negative); Specific Gravity,Urine 1.007 (1.001-1.035); Urobilinogen,Urine <2.0 mg/dL (<2.0)
[2018-08-21 22:48] VITALS: BP 123/68; PULSE 76; RESP 18; TEMP 98
== END 2018-08-21 22:47 | disposition home or self-care (01) ==
LOC: EC 18:24
DX: K31.84 Gastroparesis (principal); G43.909 Migraine, unspecified, not intractable, without status migrainosus; K21.9 Gastro-esophageal reflux disease without esophagitis; E03.9 Hypothyroidism, unspecified; F32.9 Major depressive disorder, single episode, unspecified; Z79.01 Long term (current) use of anticoagulants; Z86.718 Personal history of other venous thrombosis and embolism; Z79.899 Other long term (current) drug therapy; Z88.8 Allergy status to other drugs, medicaments and biological substances; Z90.49 Acquired absence of other specified parts of digestive tract; Z93.4 Other artificial openings of gastrointestinal tract status
CPT/HCPCS: 36415; 80053; 82150; 83690; 85025; 81003; 81025; 99284; 96365; 96375 ×4; 96361; J1170; J1200; J2550; J2405; J1885

== ENCOUNTER 2018-08-28 23:44 | Emergency (ER) | payer BC ==
[2018-08-28 23:52] VITALS: BP 129/80; PULSE 90; RESP 20; TEMP 98.8
[2018-08-29] MEDS ORDERED: KETOROLAC 30 MG/ML 1 ML VIAL IVP STA (00:02)
[2018-08-29] MEDS ORDERED: diphenhydrAMINE 50 MG/ML 1 ML VIAL IVP STA (00:02)
[2018-08-29] MEDS ORDERED: PANTOPRAZOLE 40 MG/10 ML VIAL IVP STA (00:02)
[2018-08-29] MEDS ORDERED: MORPHINE SULFATE 4 MG/ML SYRINGE IV STA (00:02)
[2018-08-29] MEDS ORDERED: ONDANSETRON 4 MG/2 ML VIAL IVP STA (00:02)
[2018-08-29] MEDS ORDERED: SODIUM CHLORIDE 0.9% 1,000 ML IV STA ×2 (00:02)
[2018-08-29] MEDS ORDERED: SODIUM CHLORIDE 0.9% 500 ML 500 ML IV STA (00:02)
[2018-08-29] MEDS ORDERED: LORazepam 2 MG/ML INJ IV STA (00:03)
[2018-08-29 01:21] LABS: Basophils # (A) 0.1 k/uL (0-0.2); Basophils % (A) 1 %; Eosinophils # (A) 0.3 k/uL (0-0.7); Eosinophils % (A) 4 %; HCT 39.9 % (34.0-46.0); HGB 13.3 gm/dL (11.4-16.0); Lymphocytes # (A) 3.2 k/uL (1.0-4.8); Lymphocytes % (A) 39 %; MCH 26.8 pg (25.0-35.0); MCHC 33.2 g/dL (31.0-37.0); MCV 80.8 fL (80.0-100.0); Mean Platelet Volume 6.6; Monocytes # (A) 0.6 k/uL (0-1.0); Monocytes % (A) 7 %; Neutrophils # (A) 3.7 k/uL (1.3-7.7); Neutrophils % (A) 46 %; Platelet Count 304 k/uL (150-450); RBC 4.94 m/uL (3.80-5.40); RDW 15.3 % (11.5-15.5); WBC 8.1 k/uL (3.8-10.6)
[2018-08-29 01:30] LABS: ALT 75 U/L (9-52); AST 24 U/L (14-36); Albumin 3.8 g/dL (3.5-5.0); Alkaline Phosphatase 129 U/L (38-126); Amylase 51 U/L (30-110); Anion Gap 9 mmol/L; Blood Urea Nitrogen 13 mg/dL (7-17); Calcium 9.6 mg/dL (8.4-10.2); Carbon Dioxide 21 mmol/L (22-30); Chloride 108 mmol/L (98-107); Creatine Kinase 46 U/L (30-135); Glucose 87 mg/dL (74-99); Lipase 17 U/L (23-300); Potassium 3.6 mmol/L (3.5-5.1); Sodium 138 mmol/L (137-145); Total Bilirubin 0.3 mg/dL (0.2-1.3); Total Protein 6.4 g/dL (6.3-8.2)
--- NOTE | 2018-08-29 01:45 | ED ---
Headache HPI - General Chief Complaint: Headache Stated Complaint: Migrane/Vomiting Time Seen by Provider: 08/28/18 23:59 Source: RN notes reviewed, old records reviewed Mode of arrival: ambulatory Limitations: no limitations - History of Present Illness Initial Comments: This is a 38-year-old female the ER for evaluation. Patient resents today for evaluation of headache is bowel pain nausea vomiting. Patient has history of all the above. Patient is no trauma, no fevers. No recent travel history or sick contacts. No significant change in symptoms. Patient is multiple ER visits recently for similar. MD Complaint: headache, "migraine" -: days(s) Onset Description: gradual Location: frontal, temporal Severity: moderate Severity scale (1-10): 5 Quality: throbbing Consistency: intermittent Improves With: nothing Worsens With: none Associated Symptoms: nausea, vomiting Treatments Prior to Arrival: none - Related Data Home Medications Medication Instructions Recorded Confirmed Lansoprazole [Prevacid] 30 mg PO BID 02/02/18 08/21/18 Montelukast Chew [Singulair] 10 mg PO DAILY 02/02/18 08/21/18 Linaclotide [Linzess] 290 mcg PO DAILY 03/10/18 08/21/18 Thyroid,Pork [Physician Office Specialist Thyroid] 90 mg PO DAILY 04/08/18 08/21/18 oxyCODONE HCL [oxyCODONE HCL (IR)] 10 mg PO Q6H PRN 05/09/18 08/21/18 Topiramate [Trokendi Xr] 50 mg PO DAILY 07/18/18 08/21/18 Apixaban [Eliquis] 5 mg PO BID 08/21/18 08/21/18 SUMAtriptan SUCCINATE [Imitrex] 50 mg PO DAILY PRN 08/21/18 08/21/18 Previous Rx's Medication Instructions Recorded Scopolamine 1.5MG/72Hr Patch 1 patch TRANSDERM Q72H #10 patch 07/31/18 [TransDerm Scop] Allergies Allergy/AdvReac Type Severity Reaction Status Date / Time metoclopramide [From Reglan] AdvReac jittery Verified 08/28/18 23:52 prochlorperazine AdvReac JITTERY Verified 08/28/18 23:52 [From Compazine] Review of Systems ROS Statement: Those systems with pertinent positive or pertinent negative responses have been documented in the HPI. ROS Other: All systems not noted in ROS Statement are negative. Past Medical History Past Medical History: GERD/Reflux, Pulmonary Embolus (PE), Thyroid Disorder Additional Past Medical History / Comment(s): Idiopathic gastroparesis, takes little in orally-has J tube for feedings,R pulmonary embolism, pancreatitis, hypothyroid, chronic anemia, sinus problems, migraine History of Any Multi-Drug Resistant Organisms: VRE Date of last positivie culture/infection: 08/01/18 MDRO Source:: VRE URINE Past Surgical History: Section, Cholecystectomy, Hernia Repair, Tonsillectomy Additional Past Surgical History / Comment(s): Picc lines with last one placed 04/2018, gastric pacer with removal, J tube, x3, 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 Past Anesthesia/Blood Transfusion Reactions: No Reported Reaction Past Psychological History: Depression Smoking Status: Never smoker Past Alcohol Use History: None Reported Past Drug Use History: None Reported - Past Family History Father Family Medical History: Hypertension Additional Family Medical History / Comment(s): DAD IS 56 AND IN [facility] Mother Additional Family Medical History / Comment(s): MOM IS 56 AND IN [facility]ALTH General Exam Limitations: no limitations General appearance: alert, in no apparent distress Head exam: Present: atraumatic, normocephalic, normal inspection Eye exam: Present: normal appearance, PERRL, EOMI. Absent: scleral icterus, conjunctival injection, periorbital swelling ENT exam: Present: normal exam, mucous membranes moist Neck exam: Present: normal inspection. Absent: tenderness, meningismus, lymphadenopathy Respiratory exam: Present: normal lung sounds bilaterally. Absent: respiratory distress, wheezes, rales, rhonchi, stridor Cardiovascular Exam: Present: regular rate, normal rhythm, normal heart sounds. Absent: systolic murmur, diastolic murmur, rubs, gallop, clicks GI/Abdominal exam: Present: soft, normal bowel sounds. Absent: distended, tenderness, guarding, rebound, rigid Extremities exam: Present: normal inspection, full ROM, normal capillary refill. Absent: tenderness, pedal edema, joint swelling, calf tenderness Back exam: Present: normal inspection Neurological exam: Present: alert, oriented X3, CN II-XII intact Psychiatric exam: Present: normal affect, normal mood Skin exam: Present: warm, dry, intact, normal color. Absent: rash Course Vital Signs 08/28/18 23:50 Temperature 98.8 F Pulse Rate 90 Respiratory 20 Rate Blood Pressure 129/80 O2 Sat by Pulse 99 Oximetry - Reevaluation(s) Reevaluation #1: 08/29/18 02:35 Medical record is reviewed Reevaluation #2: 08/29/18 02:35 Patient improved control and patient can be discharged Medical Decision Making - Medical Decision Making 78 female the ER for evaluation of nausea vomiting or bowel pain and headache. Patient without acute on chronic issues, symptoms are improved and patient can be discharged home - Lab Data Result diagrams: 08/29/18 01:12 08/29/18 01:12 Lab Results 08/29/18 08/29/18 08/29/18 Range/Units 01:12 01:12 01:12 WBC 8.1 (3.8-10.6) k/uL RBC 4.94 (3.80-5.40) m/uL Hgb 13.3 (11.4-16.0) gm/dL Hct 39.9 (34.0-46.0) % MCV 80.8 (80.0-100.0) fL MCH 26.8 (25.0-35.0) pg MCHC 33.2 (31.0-37.0) g/dL RDW 15.3 (11.5-15.5) % Plt Count 304 (150-450) k/uL Neutrophils % 46 % Lymphocytes % 39 % Monocytes % 7 % Eosinophils % 4 % Basophils % 1 % Neutrophils # 3.7 (1.3-7.7) k/uL Lymphocytes # 3.2 (1.0-4.8) k/uL Monocytes # 0.6 (0-1.0) k/uL Eosinophils # 0.3 (0-0.7) k/uL Basophils # 0.1 (0-0.2) k/uL Sodium 138 (137-145) mmol/L Potassium 3.6 (3.5-5.1) mmol/L Chloride 108 H (98-107) mmol/L Carbon Dioxide 21 L (22-30) mmol/L Anion Gap 9 mmol/L BUN 13 (7-17) mg/dL Creatinine 0.74 (0.52-1.04) mg/dL Est GFR (CKD-EPI)AfAm >90 (>60 ml/min/1.73 sqM) Est GFR (CKD-EPI)NonAf >90 (>60 ml/min/1.73 sqM) Glucose 87 (74-99) mg/dL Plasma Lactic Acid Frank 0.7 (0.7-2.0) mmol/L Calcium 9.6 (8.4-10.2) mg/dL Total Bilirubin 0.3 (0.2-1.3) mg/dL AST 24 (14-36) U/L ALT 75 H (9-52) U/L Alkaline Phosphatase 129 H (38-126) U/L Creatine Kinase 46 (30-135) U/L Total Protein 6.4 (6.3-8.2) g/dL Albumin 3.8 (3.5-5.0) g/dL Amylase 51 (30-110) U/L Lipase 17 L (23-300) U/L Urine Color Urine Appearance (Clear) Urine pH (5.0-8.0) Ur Specific [place] (1.001-1.035) Urine Protein (Negative) Urine Glucose (UA) (Negative) Urine Ketones (Negative) Urine Blood (Negative) Urine Nitrite (Negative) Urine Bilirubin (Negative) Urine Urobilinogen (<2.0) mg/dL Ur Leukocyte Esterase (Negative) Urine RBC (0-5) /hpf Urine WBC (0-5) /hpf Ur Squamous Epith Cells (0-4) /hpf Urine Mucus (None) /hpf Urine HCG, Qual (Not Detectd) 08/29/18 08/29/18 Range/Units 01:12 01:12 WBC (3.8-10.6) k/uL RBC (3.80-5.40) m/uL Hgb (11.4-16.0) gm/dL Hct (34.0-46.0) % MCV (80.0-100.0) fL MCH (25.0-35.0) pg MCHC (31.0-37.0) g/dL RDW (11.5-15.5) % Plt Count (150-450) k/uL Neutrophils % % Lymphocytes % % Monocytes % % Eosinophils % % Basophils % % Neutrophils # (1.3-7.7) k/uL Lymphocytes # (1.0-4.8) k/uL Monocytes # (0-1.0) k/uL Eosinophils # (0-0.7) k/uL Basophils # (0-0.2) k/uL Sodium (137-145) mmol/L Potassium (3.5-5.1) mmol/L Chloride (98-107) mmol/L Carbon Dioxide (22-30) mmol/L Anion Gap mmol/L BUN (7-17) mg/dL Creatinine (0.52-1.04) mg/dL Est GFR (CKD-EPI)AfAm (>60 ml/min/1.73 sqM) Est GFR (CKD-EPI)NonAf (>60 ml/min/1.73 sqM) Glucose (74-99) mg/dL Plasma Lactic Acid Frank (0.7-2.0) mmol/L Calcium (8.4-10.2) mg/dL Total Bilirubin (0.2-1.3) mg/dL AST (14-36) U/L ALT (9-52) U/L Alkaline Phosphatase (38-126) U/L Creatine Kinase (30-135) U/L Total Protein (6.3-8.2) g/dL Albumin (3.5-5.0) g/dL Amylase (30-110) U/L Lipase (23-300) U/L Urine Color Yellow Urine Appearance Clear (Clear) Urine pH 6.0 (5.0-8.0) Ur Specific [place] 1.021 (1.001-1.035) Urine Protein Negative (Negative) Urine Glucose (UA) Negative (Negative) Urine Ketones 1+ H (Negative) Urine Blood Negative (Negative) Urine Nitrite Negative (Negative) Urine Bilirubin Negative (Negative) Urine Urobilinogen <2.0 (<2.0) mg/dL Ur Leukocyte Esterase Negative (Negative) Urine RBC 1 (0-5) /hpf Urine WBC 2 (0-5) /hpf Ur Squamous Epith Cells 1 (0-4) /hpf Urine Mucus Rare H (None) /hpf Urine HCG, Qual Not Detected (Not Detectd) Disposition Clinical Impression: Abdominal pain, Headache, Gastroparesis Disposition: HOME SELF-CARE Condition: Good Instructions (If sedation given, give patient instructions): Acute Headache (ED) Is patient prescribed a controlled substance at d/c from ED?: No Referrals: Karthikeyan Pedro MD [Primary Care Provider] - 1-2 days
[2018-08-29 02:20] LABS: Mucus,Urine Rare /hpf; RBC,Urine 1 /hpf (0-5); Squamous Epithelial Cell,Urine 1 /hpf (0-4); WBC,Urine 2 /hpf (0-5)
[2018-08-29 02:23] LABS: Appearance,Urine Clear (Clear); Bilirubin,Urine Negative (Negative); Blood,Urine Negative (Negative); Color,Urine Yellow; Glucose,Urine (UA) Negative (Negative); Ketones,Urine 1+ (Negative); Leukocyte Esterase,Urine Negative (Negative); Nitrite,Urine Negative (Negative); Protein,Urine Negative (Negative); Specific Gravity,Urine 1.021 (1.001-1.035); Urobilinogen,Urine <2.0 mg/dL (<2.0)
[2018-08-29] MEDS ORDERED: HYDROmorphone 0.5 MG/0.5 ML SYRINGE IVP STA (02:31)
== END 2018-08-29 02:44 | disposition home or self-care (01) ==
LOC: EC 23:44
DX: K31.84 Gastroparesis (principal); K21.9 Gastro-esophageal reflux disease without esophagitis; E03.9 Hypothyroidism, unspecified; G43.909 Migraine, unspecified, not intractable, without status migrainosus; Z86.711 Personal history of pulmonary embolism; Z79.01 Long term (current) use of anticoagulants; Z79.899 Other long term (current) drug therapy; Z88.8 Allergy status to other drugs, medicaments and biological substances; Z90.49 Acquired absence of other specified parts of digestive tract; Z53.29 Procedure and treatment not carried out because of patient's decision for other reasons
CPT/HCPCS: 36415; 80053; 82150; 82550; 83605; 83690; 85025; 81003; 81025; 87086; 99284; 96374; 96375 ×5; 96361; J2060; J2270; J1200; J2405; J1885; C9113

== ENCOUNTER 2018-08-30 19:53 | Emergency (ER) | payer BC ==
[2018-08-30] MEDS ORDERED: PROMETHAZINE INJ 25 MG in SODIUM CHLORIDE 0.9% 50 ML IVPB STA (21:10)
[2018-08-30] MEDS ORDERED: KETOROLAC 30 MG/ML 1 ML VIAL IVP STA (21:10)
[2018-08-30] MEDS ORDERED: diphenhydrAMINE 50 MG/ML 1 ML VIAL IVP STA (21:10)
[2018-08-30] MEDS ORDERED: DIAZEPAM 5 MG/ML 2 ML INJ IVP STA (21:10)
[2018-08-30] MEDS ORDERED: HYDROmorphone 1 MG/ML 1 ML SYRINGE IVP STA ×2 (22:09→23:31)
[2018-08-30] MEDS ORDERED: DEXAMETHASONE SOD PHOSPHATE 10 MG/ML 1 ML VIAL IV STA (22:09)
[2018-08-30 23:16] VITALS: PULSE 78
[2018-08-30] MEDS ORDERED: SODIUM CHLORIDE 0.9% 500 ML 500 ML IV ONE (23:31)
--- NOTE | 2018-08-30 23:56 | ED ---
Headache HPI - General Chief Complaint: Headache Stated Complaint: Headache, Vomiting Time Seen by Provider: 08/30/18 21:04 Mode of arrival: ambulatory Limitations: no limitations - History of Present Illness Initial Comments: 38 year-old female patient with past medical history significant for migraine headaches presents to the emergency department today for evaluation of migraine headache. Patient states that she has had this headache intermittently over the last 3 days. Patient states today's headache started around 2 PM. States it starts in her right eye, caused ringing in her right ear and then expands to encompass the whole head. States she has associated light sensitivity and blurred vision. Patient states that she did take her Imitrex at home. States that she has been nauseated and has vomited with this. Patient states that nothing is helping. She denies any new symptoms with this headache. States that her symptoms are consistent with her usual migraine pattern. She did call and make an appointment with her neurologist for the morning. Patient denies any recent rash, fever, chills, shortness breath, chest pain, abdominal pain, diarrhea, constipation, back pain, numbness, tingling, dizziness, weakness, hematuria, dysuria, urinary urgency, urinary frequency, or any other complaints. - Related Data Home Medications Medication Instructions Recorded Confirmed Lansoprazole [Prevacid] 30 mg PO BID 02/02/18 08/30/18 Montelukast Chew [Singulair] 10 mg PO DAILY 02/02/18 08/30/18 Linaclotide [Linzess] 290 mcg PO DAILY 03/10/18 08/30/18 Thyroid,Pork [Collar Pointer Thyroid] 90 mg PO DAILY 04/08/18 08/30/18 oxyCODONE HCL [oxyCODONE HCL (IR)] 10 mg PO Q6H PRN 05/09/18 08/30/18 Topiramate [Trokendi Xr] 50 mg PO DAILY 07/18/18 08/30/18 Apixaban [Eliquis] 5 mg PO BID 08/21/18 08/30/18 SUMAtriptan SUCCINATE [Imitrex] 50 mg PO DAILY PRN 08/21/18 08/30/18 Previous Rx's Medication Instructions Recorded Scopolamine 1.5MG/72Hr Patch 1 patch TRANSDERM Q72H #10 patch 07/31/18 [TransDerm Scop] Allergies Allergy/AdvReac Type Severity Reaction Status Date / Time metoclopramide [From Reglan] AdvReac jittery Verified 08/30/18 20:57 prochlorperazine AdvReac JITTERY Verified 08/30/18 20:57 [From Compazine] Review of Systems ROS Statement: Those systems with pertinent positive or pertinent negative responses have been documented in the HPI. ROS Other: All systems not noted in ROS Statement are negative. Past Medical History Past Medical History: GERD/Reflux, Pulmonary Embolus (PE), Thyroid Disorder Additional Past Medical History / Comment(s): Idiopathic gastroparesis, takes little in orally-has J tube for feedings,R pulmonary embolism, pancreatitis, hypothyroid, chronic anemia, sinus problems, migraine History of Any Multi-Drug Resistant Organisms: VRE Date of last positivie culture/infection: 08/01/18 MDRO Source:: VRE URINE Past Surgical History: Section, Cholecystectomy, Hernia Repair, Tonsillectomy Additional Past Surgical History / Comment(s): Picc lines with last one placed 04/2018, gastric pacer with removal, J tube, x3, 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 Past Anesthesia/Blood Transfusion Reactions: No Reported Reaction Past Psychological History: Depression Smoking Status: Never smoker Past Alcohol Use History: None Reported Past Drug Use History: None Reported - Past Family History Father Family Medical History: Hypertension Additional Family Medical History / Comment(s): DAD IS 56 AND IN [facility] Mother Additional Family Medical History / Comment(s): MOM IS 56 AND IN [facility] General Exam Limitations: no limitations General appearance: alert, in no apparent distress, other (This is a well- developed, well-nourished adult female patient in no acute distress. Vital signs upon presentation are temperature 99.2F, pulse 105, respirations 17, blood pressure 124/83, pulse ox 99% on room air.) Eye exam: Present: normal appearance, PERRL, EOMI. Absent: scleral icterus, conjunctival injection, nystagmus, periorbital swelling ENT exam: Present: normal exam, normal oropharynx, mucous membranes moist Neck exam: Present: normal inspection, full ROM. Absent: tenderness, meningism us, lymphadenopathy Respiratory exam: Present: normal lung sounds bilaterally. Absent: respiratory distress, wheezes, rales, rhonchi, stridor Cardiovascular Exam: Present: regular rate, normal rhythm, normal heart sounds. Absent: systolic murmur, diastolic murmur, rubs, gallop, clicks Neurological exam: Present: alert, oriented X3, CN II-XII intact, other (Strength in all 4 extremities is 5/5.) Psychiatric exam: Present: normal affect, normal mood Skin exam: Present: warm, dry, intact, normal color. Absent: rash Course Vital Signs 08/30/18 08/30/18 08/31/18 20:33 23:15 00:51 Temperature 99.2 F 98 F Pulse Rate 105 H 78 78 Respiratory 17 18 16 Rate Blood Pressure 124/83 119/70 110/55 O2 Sat by Pulse 99 99 96 Oximetry Medical Decision Making - Medical Decision Making 38-year-old female patient presents to the emergency department today for migraine headache. Patient does have history of migraines and states her symptoms are consistent with her usual migraine pattern. Physical examination is unremarkable. She is neurologically intact with no focal deficits. Patient was given several medications here in the emergency department. Upon reevaluation patient does report improvement of symptoms and would like to be discharged home. She does have an appointment with her neurologist tomorrow. Return parameters were discussed in detail. She verbalizes understanding and agrees with this plan. Disposition Clinical Impression: Migraine headache Disposition: HOME SELF-CARE Condition: Good Instructions (If sedation given, give patient instructions): Migraine Headache (ED) Additional Instructions: Continue all meds as directed. Follow-up with your neurologist tomorrow as you have planned. Return to the emergency department immediately for any new, worsening, or concerning symptoms. Is patient prescribed a controlled substance at d/c from ED?: No Referrals: Karthikeyan Pedro MD [Primary Care Provider] - 1-2 days Time of Disposition: 00:25
[2018-08-31] MEDS ORDERED: CAFFEINE-SODIUM BENZOATE 500 MG in SODIUM CHLORIDE 0.9% 1,000 ML IVPB ONE ×2
[2018-08-31 00:52] VITALS: BP 110/55; RESP 16; TEMP 98
== END 2018-08-31 00:55 | disposition home or self-care (01) ==
LOC: EC 19:53
DX: G43.909 Migraine, unspecified, not intractable, without status migrainosus (principal); K21.9 Gastro-esophageal reflux disease without esophagitis; E03.9 Hypothyroidism, unspecified; Z86.711 Personal history of pulmonary embolism; Z90.49 Acquired absence of other specified parts of digestive tract; Z79.01 Long term (current) use of anticoagulants; Z79.890 Hormone replacement therapy; Z79.899 Other long term (current) drug therapy; Z88.8 Allergy status to other drugs, medicaments and biological substances
CPT/HCPCS: 99283; 96374; 96375 ×5; 96376; 96361; J1200; J1100; J2550; J3360; J1885; J1170

== ENCOUNTER 2018-09-02 17:17 | Emergency (ER) | payer BC ==
[2018-09-02 17:21] VITALS: TEMP 98
--- NOTE | 2018-09-02 18:44 | ED ---
General Adult HPI - General Chief complaint: Recheck/Abnormal Lab/Rx Stated complaint: feeding tube problems Time Seen by Provider: 09/02/18 17:29 Source: patient, RN notes reviewed Mode of arrival: ambulatory Limitations: no limitations - History of Present Illness Initial comments: 38-year-old female with a past medical history of idiopathic gastroparesis, J- tube, pulmonary embolism, pancreatitis presents to the emergency department for a chief complaint of G-tube dysfunction. Patient states that she has had a J- tube for 2 years. States it was recently adjusted one month ago. States she did not have any problems until 2 days ago. States that at that time the J-tube began leaking during her feedings. Patient sees a surgeon down at [facility] [address]. Patient is not having any abdominal pain at this time. No fevers. Otherwise feels fine besides for the leaking of G-tube.Patient has no other complaints at this time including shortness of breath, chest pain, abdominal pain, nausea or vomiting, headache, or visual changes. - Related Data Home Medications Medication Instructions Recorded Confirmed Lansoprazole [Prevacid] 30 mg PO BID 02/02/18 08/30/18 Montelukast Chew [Singulair] 10 mg PO DAILY 02/02/18 08/30/18 Linaclotide [Linzess] 290 mcg PO DAILY 03/10/18 08/30/18 Thyroid,Pork [Boom Tender Thyroid] 90 mg PO DAILY 04/08/18 08/30/18 oxyCODONE HCL [oxyCODONE HCL (IR)] 10 mg PO Q6H PRN 05/09/18 08/30/18 Topiramate [Trokendi Xr] 50 mg PO DAILY 07/18/18 08/30/18 Apixaban [Eliquis] 5 mg PO BID 08/21/18 08/30/18 SUMAtriptan SUCCINATE [Imitrex] 50 mg PO DAILY PRN 08/21/18 08/30/18 Previous Rx's Medication Instructions Recorded Scopolamine 1.5MG/72Hr Patch 1 patch TRANSDERM Q72H #10 patch 07/31/18 [TransDerm Scop] Allergies Allergy/AdvReac Type Severity Reaction Status Date / Time metoclopramide [From Reglan] AdvReac jittery Verified 05/29/19 20:57 prochlorperazine DeandreReac ELIDA Verified 08/30/18 20:57 [From Compazine] Review of Systems ROS Statement: Those systems with pertinent positive or pertinent negative responses have been documented in the HPI. ROS Other: All systems not noted in ROS Statement are negative. Past Medical History Past Medical History: GERD/Reflux, Pulmonary Embolus (PE), Thyroid Disorder Additional Past Medical History / Comment(s): Idiopathic gastroparesis, takes little in orally-has J tube for feedings,R pulmonary embolism, pancreatitis, hypothyroid, chronic anemia, sinus problems, migraine History of Any Multi-Drug Resistant Organisms: VRE Date of last positivie culture/infection: 08/01/18 MDRO Source:: VRE URINE Past Surgical History: Section, Cholecystectomy, Hernia Repair, Tonsillectomy Additional Past Surgical History / Comment(s): Picc lines with last one placed 04/2018, gastric pacer with removal, J tube, x3, 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 Past Anesthesia/Blood Transfusion Reactions: No Reported Reaction Past Psychological History: Depression Smoking Status: Never smoker Past Alcohol Use History: None Reported Past Drug Use History: None Reported - Past Family History Father Family Medical History: Hypertension Additional Family Medical History / Comment(s): DAD IS 56 AND IN [facility] Mother Additional Family Medical History / Comment(s): MOM IS 56 AND IN [facility] General Exam Limitations: no limitations General appearance: alert, in no apparent distress Head exam: Present: atraumatic, normocephalic, normal inspection Eye exam: Present: normal appearance, PERRL, EOMI. Absent: scleral icterus, conjunctival injection, periorbital swelling ENT exam: Present: normal exam, mucous membranes moist Neck exam: Present: normal inspection, full ROM. Absent: tenderness, meningismus, lymphadenopathy Respiratory exam: Present: normal lung sounds bilaterally. Absent: respiratory distress, wheezes, rales, rhonchi, stridor Cardiovascular Exam: Present: regular rate, normal rhythm, normal heart sounds. Absent: systolic murmur, diastolic murmur, rubs, gallop, clicks GI/Abdominal exam: Present: soft, normal bowel sounds, other (J-tube noted. There is some skin irritation over no evidence of cellulitis surrounding the tube.). Absent: distended, tenderness (No abdominal tenderness), guarding, rebound, rigid Neurological exam: Present: alert, oriented X3, CN II-XII intact Psychiatric exam: Present: normal affect, normal mood Course Vital Signs 09/02/18 09/02/18 17:18 19:15 Temperature 98.0 F 98.0 F Pulse Rate 104 H 91 Respiratory 18 16 Rate Blood Pressure 129/80 122/78 O2 Sat by Pulse 100 98 Oximetry Medical Decision Making - Medical Decision Making 38-year-old female presents for J-tube dysfunction. States that J-tube has been leaking for the past 2 days. Patient had this placed by Dr Abraham of [facility] 2 years ago. last adjusted 1 month ago. On exam patient does have J- tube noted. Some mild skin irritation surrounding the area but no evidence of cellulitis or infectious process. I did attempt to flush J-tube. I was able to push 30 mL of sterile water however it then began to leak somewhat. I contacted and surgeon Dr Abraham. As patient has another J-tube with her he recommends that I remove this tube and replace it with the other J-tube filling the balloon with 5 mL of saline. I did ask if he wanted any imaging after and he did not. I was able to easily remove the first J-tube by removing 5 mL of saline from the balloon. J-tube was removed easily. It was then easily replaced without resistance and 5 mL was injected into the balloon. G-tube flushes without difficulty or without leakage. Patient will follow-up with surgeon in 1-2 days. She'll return here if she has any worsening symptoms. Disposition Clinical Impression: Feeding tube dysfunction Disposition: HOME SELF-CARE Condition: Good Instructions (If sedation given, give patient instructions): How to Use and Care for Your PEG Tube (ED) Additional Instructions: Please follow up with your surgeon in 1-2 days. Please return here to the emergency department if you have any worsening symptoms. Is patient prescribed a controlled substance at d/c from ED?: No Referrals: Karthikeyan Pedro MD [Primary Care Provider] - 1-2 days Time of Disposition: 18:43
[2018-09-02 19:16] VITALS: BP 122/78; PULSE 91; RESP 16
== END 2018-09-02 19:15 | disposition home or self-care (01) ==
LOC: EC 17:17
DX: T85.598A Other mechanical complication of other gastrointestinal prosthetic devices, implants and grafts, initial encounter (principal); K21.9 Gastro-esophageal reflux disease without esophagitis; E03.9 Hypothyroidism, unspecified; Z79.01 Long term (current) use of anticoagulants; Z79.899 Other long term (current) drug therapy; Z88.8 Allergy status to other drugs, medicaments and biological substances; Z86.711 Personal history of pulmonary embolism
CPT/HCPCS: 99283

== ENCOUNTER 2018-09-23 01:46 | Emergency (ER) | payer BC ==
[2018-09-23] MEDS ORDERED: SODIUM CHLORIDE 0.9% 500 ML 500 ML IV STA (02:17)
[2018-09-23] MEDS ORDERED: SODIUM CHLORIDE 0.9% 1,000 ML IV STA (02:17)
[2018-09-23] MEDS ORDERED: PROMETHAZINE INJ 25 MG in SODIUM CHLORIDE 0.9% 50 ML IVPB STA (02:18)
[2018-09-23] MEDS ORDERED: HYDROmorphone 1 MG/ML 1 ML SYRINGE IVP STA (02:18)
[2018-09-23] MEDS ORDERED: diphenhydrAMINE 50 MG/ML 1 ML VIAL IVP STA (02:18)
[2018-09-23 02:56] LABS: Basophils % (A) 0 %; Eosinophils # (A) 0.2 k/uL (0-0.7); Eosinophils % (A) 2 %; Lymphocytes # (A) 2.2 k/uL (1.0-4.8); Lymphocytes % (A) 25 %; MCHC 33.3 g/dL (31.0-37.0); MCV 81.2 fL (80.0-100.0); Mean Platelet Volume 6.9; Monocytes # (A) 0.4 k/uL (0-1.0); Monocytes % (A) 4 %; Neutrophils # (A) 5.8 k/uL (1.3-7.7); Neutrophils % (A) 66 %; Platelet Count 382 k/uL (150-450); RBC 5.17 m/uL (3.80-5.40); RDW 15.3 % (11.5-15.5); WBC 8.7 k/uL (3.8-10.6)
[2018-09-23 03:00] LABS: ALT 20 U/L (9-52); AST 45 U/L (14-36); African American GFR (CKD) >90 (>60 ml/min/1.73 sqM); Albumin 4.3 g/dL (3.5-5.0); Alkaline Phosphatase 119 U/L (38-126); Amylase 91 U/L (30-110); Anion Gap 10 mmol/L; Blood Urea Nitrogen 10 mg/dL (7-17); Calcium 9.2 mg/dL (8.4-10.2); Carbon Dioxide 20 mmol/L (22-30); Chloride 115 mmol/L (98-107); Glucose 94 mg/dL (74-99); Lipase 66 U/L (23-300); Sodium 145 mmol/L (137-145); Total Bilirubin 0.9 mg/dL (0.2-1.3); Total Protein 7.5 g/dL (6.3-8.2)
[2018-09-23 03:01] LABS: Potassium 4.1 mmol/L (3.5-5.1)
[2018-09-23 03:29] VITALS: BP 127/77; PULSE 80; RESP 16; TEMP 98.3
--- NOTE | 2018-09-23 03:48 | CT ---
EXAM: CT Abdomen and Pelvis With Intravenous Contrast CLINICAL HISTORY: PEG tube infection TECHNIQUE: Axial computed tomography images of the abdomen and pelvis with intravenous contrast. CTDI is 0.085, 0.085, 10.8, 10 mGy and DLP is 932. 5 mGy-cm. This CT exam was performed using one or more of the following dose reduction techniques: automated exposure control, adjustment of the mA and/or kV according to patient size, and/or use of iterative reconstruction technique. COMPARISON: No relevant prior studies available. FINDINGS: Lung bases: Dependent atelectasis. ABDOMEN: Liver: Decreased attenuation of the liver which may represent hepatic steatosis. Gallbladder and bile ducts: Gallbladder surgically absent. Pancreas: Unremarkable. Spleen: Unremarkable. Adrenals: Unremarkable. Kidneys and ureters: Unremarkable. Stomach and bowel: Postsurgical changes within the stomach and small bowel. PELVIS: Appendix: Appendix is unremarkable. Bladder: Unremarkable. Reproductive: Left ovarian cyst measuring up to 3.5 cm. IUD is noted within endometrium. ABDOMEN and PELVIS: Intraperitoneal space: Unremarkable. Bones/joints: No acute fracture. No dislocation. Soft tissues: See below. Vasculature: Unremarkable. No abdominal aortic aneurysm. Lymph nodes: Unremarkable. Tubes, lines and devices: Percutaneous J-tube which appears to be in appropriate position. There is moderate amount of edema seen surrounding the catheter. Correlate clinically to exclude cellulitis. No abscess. IMPRESSION: 1. Percutaneous J-tube which appears to be in appropriate position. There is moderate amount of edema seen surrounding the catheter. Correlate clinically to exclude cellulitis. No abscess. 2. Left ovarian cyst measuring up to 3.5 cm.
[2018-09-23] MEDS ORDERED: SULFAMETH-TMP DS STARTER PACK 2 TAB BTL PO STA (03:59)
--- NOTE | 2018-09-23 03:59 | ED ---
General Adult HPI - General Chief complaint: Nausea/Vomiting/Diarrhea Stated complaint: Vomiting Time Seen by Provider: 09/23/18 02:05 Source: patient, EMS Mode of arrival: EMS - History of Present Illness Initial comments: 38 year-old female patient with past medical history significant for chronic abdominal pain, vomiting related to idiopathic gastroparesis, status post PEG tu be placement presents to the emergency department today for evaluation of increased abdominal pain, nausea, and vomiting. Patient states that she is currently being treated for an infection surrounding her PEG tube insertion site. States that she was switched from Keflex to Augmentin today. Patient states she's had several episodes of vomiting which has caused increased pain to the PEG tube region. Patient states that she has taken her home nausea medication including Zofran and Phenergan without relief of symptoms. States she's been unable to keep down any food or fluids. She denies any fever or chills. Denies any diarrhea. Patient denies any recent rash, shortness breath, chest pain, constipation, back pain, numbness, tingling, dizziness, weakness, hematuria, dysuria, urinary urgency, urinary frequency, headache, visual changes, or any other complaints. - Related Data Home Medications Medication Instructions Recorded Confirmed Lansoprazole [Prevacid] 30 mg PO BID 02/02/18 09/23/18 Montelukast Chew [Singulair] 10 mg PO DAILY 02/02/18 09/23/18 Linaclotide [Linzess] 290 mcg PO DAILY 03/10/18 09/23/18 Thyroid,Pork [Tank Assembler Thyroid] 90 mg PO DAILY 04/08/18 09/23/18 oxyCODONE HCL [oxyCODONE HCL (IR)] 10 mg PO Q6H PRN 05/09/18 09/23/18 Topiramate [Trokendi Xr] 50 mg PO DAILY 07/18/18 09/23/18 Apixaban [Eliquis] 5 mg PO BID 08/21/18 09/23/18 SUMAtriptan SUCCINATE [Imitrex] 50 mg PO DAILY PRN 08/21/18 09/23/18 Previous Rx's Medication Instructions Recorded Scopolamine 1.5MG/72Hr Patch 1 patch TRANSDERM Q72H #10 patch 07/31/18 [TransDerm Scop] Sulfamethoxazole/Trimethoprim 1 each PO BID #20 tablet 09/23/18 [Bactrim DS 800-160 mg] Allergies Allergy/AdvReac Type Severity Reaction Status Date / Time metoclopramide [From Reglan] AdvReac jittery Verified 08/30/18 20:57 prochlorperazine AdvReac JITTERY Verified 08/30/18 20:57 [From Compazine] Review of Systems ROS Statement: Those systems with pertinent positive or pertinent negative responses have been documented in the HPI. ROS Other: All systems not noted in ROS Statement are negative. Past Medical History Past Medical History: GERD/Reflux, Pulmonary Embolus (PE), Thyroid Disorder Additional Past Medical History / Comment(s): Idiopathic gastroparesis, takes little in orally-has J tube for feedings,R pulmonary embolism, pancreatitis, hypothyroid, chronic anemia, sinus problems, migraine History of Any Multi-Drug Resistant Organisms: VRE Date of last positivie culture/infection: 08/01/18 MDRO Source:: VRE URINE Past Surgical History: Section, Cholecystectomy, Hernia Repair, Tonsillectomy Additional Past Surgical History / Comment(s): Picc lines with last one placed 04/2018, gastric pacer with removal, J tube, x3, 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 Past Anesthesia/Blood Transfusion Reactions: No Reported Reaction Past Psychological History: Depression Smoking Status: Never smoker Past Alcohol Use History: None Reported Past Drug Use History: None Reported - Past Family History Father Family Medical History: Hypertension Additional Family Medical History / Comment(s): DAD IS 56 AND IN [facility] Mother Additional Family Medical History / Comment(s): MOM IS 56 AND IN [facility] General Exam General appearance: alert, in no apparent distress, other (Physical well- developed, well-nourished adult female patient in no acute distress. Vital signs upon presentation are temperature 98.5F, pulse 81, respirations 18, blood pressure 130/81, pulse ox 99% on room air.) Eye exam: Present: normal appearance, PERRL, EOMI. Absent: scleral icterus, conjunctival injection, periorbital swelling ENT exam: Present: normal exam, normal oropharynx, mucous membranes moist Respiratory exam: Present: normal lung sounds bilaterally. Absent: respiratory distress, wheezes, rales, rhonchi, stridor Cardiovascular Exam: Present: regular rate, normal rhythm, normal heart sounds. Absent: systolic murmur, diastolic murmur, rubs, gallop, clicks GI/Abdominal exam: Present: soft, normal bowel sounds, other (PEG tube insertion site to the mid upper abdomen is erythematous, swollen, there is drainage of pus.). Absent: distended, tenderness, guarding, rebound, rigid Neurological exam: Present: alert, oriented X3, CN II-XII intact Psychiatric exam: Present: normal affect, normal mood Skin exam: Present: warm, dry, intact, normal color. Absent: rash Course Vital Signs 09/23/18 09/23/18 01:53 03:00 Temperature 98.5 F 98.3 F Pulse Rate 81 80 Respiratory 18 16 Rate Blood Pressure 130/81 127/77 O2 Sat by Pulse 99 97 Oximetry Medical Decision Making - Medical Decision Making 38 year-old female patient presents to the emergency department today for evaluation increased vomiting and abdominal pain. Physical examination did reveal tenderness surrounding the J-tube insertion site with surrounding cellulitis and swelling. There is drainage of pus, this will be sent for culture. Patient was started on Keflex roughly 6 days ago, was not seeing any improvement so she was switched to Augmentin. Labs reviewed and are unremarkable. Given the tenderness surrounding the insertion site with obvious infection I did perform CT of the abdomen and pelvis to rule out abscess. CT showed surrounding swelling and inflammation consistent with sialitis been no evidence of abscess. No other intra-abdominal abnormalities. Upon reevaluation patient does report improvement of symptoms. She'll be discharged home to follow-up with her primary care physician for recheck in 1-2 days. She'll be given prescription for Bactrim to add to the Augmentin for possibility of MRSA coverage pending culture. She is instructed to return to the emergency d epartment for any new, worsening, or concerning symptoms. - Lab Data Result diagrams: 09/23/18 02:28 09/23/18 02:28 Lab Results 09/23/18 09/23/18 09/23/18 Range/Units 02:28 02:28 04:15 WBC 8.7 (3.8-10.6) k/uL RBC 5.17 (3.80-5.40) m/uL Hgb 14.0 (11.4-16.0) gm/dL Hct 42.0 (34.0-46.0) % MCV 81.2 (80.0-100.0) fL MCH 27.0 (25.0-35.0) pg MCHC 33.3 (31.0-37.0) g/dL RDW 15.3 (11.5-15.5) % Plt Count 382 (150-450) k/uL Neutrophils % 66 % Lymphocytes % 25 % Monocytes % 4 % Eosinophils % 2 % Basophils % 0 % Neutrophils # 5.8 (1.3-7.7) k/uL Lymphocytes # 2.2 (1.0-4.8) k/uL Monocytes # 0.4 (0-1.0) k/uL Eosinophils # 0.2 (0-0.7) k/uL Basophils # 0.0 (0-0.2) k/uL Sodium 145 (137-145) mmol/L Potassium 4.1 (3.5-5.1) mmol/L Chloride 115 H (98-107) mmol/L Carbon Dioxide 20 L (22-30) mmol/L Anion Gap 10 mmol/L BUN 10 (7-17) mg/dL Creatinine 0.60 (0.52-1.04) mg/dL Est GFR (CKD-EPI)AfAm >90 (>60 ml/min/1.73 sqM) Est GFR (CKD-EPI)NonAf >90 (>60 ml/min/1.73 sqM) Glucose 94 (74-99) mg/dL Calcium 9.2 (8.4-10.2) mg/dL Total Bilirubin 0.9 (0.2-1.3) mg/dL AST 45 H (14-36) U/L ALT 20 (9-52) U/L Alkaline Phosphatase 119 (38-126) U/L Total Protein 7.5 (6.3-8.2) g/dL Albumin 4.3 (3.5-5.0) g/dL Amylase 91 (30-110) U/L Lipase 66 (23-300) U/L Urine Color Yellow Urine Appearance Cloudy H (Clear) Urine pH 7.5 (5.0-8.0) Ur Specific [place] 1.050 H (1.001-1.035) Urine Protein Negative (Negative) Urine Glucose (UA) Negative (Negative) Urine Ketones Negative (Negative) Urine Blood Negative (Negative) Urine Nitrite Negative (Negative) Urine Bilirubin Negative (Negative) Urine Urobilinogen <2.0 (<2.0) mg/dL Ur Leukocyte Esterase Negative (Negative) Urine WBC 8 H (0-5) /hpf Ur Squamous Epith Cells <1 (0-4) /hpf Amorphous Sediment Rare H (None) /hpf - Radiology Data Radiology results: report reviewed, image reviewed CT abdomen and pelvis was obtained with contrast. Report was reviewed in its entirety. Impression by Dr. Montenegro shows percutaneous G-tube which appears to be in appropriate position. There is moderate amount of edema seen surrounding the catheter. Quite clinically to exclude sialitis. No abscess. Left ovarian cyst measuring up to 3.5 cm Disposition Clinical Impression: Abdominal wall cellulitis, Vomiting Disposition: HOME SELF-CARE Condition: Good Instructions (If sedation given, give patient instructions): Cellulitis (ED), Acute Nausea and Vomiting (ED) Additional Instructions: Continue Augmentin and start Bactrim prescription pending culture results. Follow up with your primary care physician for recheck in 1-2 days. Return to the emergency department for any new, worsening or concerning symptoms. Prescriptions: Sulfamethoxazole/Trimethoprim [Bactrim DS 800-160 mg] 1 each PO BID #20 tablet Is patient prescribed a controlled substance at d/c from ED?: No Referrals: Karthikeyan Pedro MD [Primary Care Provider] - 1-2 days Time of Disposition: 03:59
[2018-09-23] MEDS ORDERED: HYDROmorphone 2 MG/ML 1 ML SYRINGE IVP STA (04:03)
[2018-09-23 04:29] LABS: Amorphous Sediment,Urine Rare /hpf; Appearance,Urine Cloudy (Clear); Bilirubin,Urine Negative (Negative); Blood,Urine Negative (Negative); Color,Urine Yellow; Glucose,Urine (UA) Negative (Negative); Ketones,Urine Negative (Negative); Leukocyte Esterase,Urine Negative (Negative); Nitrite,Urine Negative (Negative); PH, Urine 7.5 (5.0-8.0); Protein,Urine Negative (Negative); Squamous Epithelial Cell,Urine <1 /hpf (0-4); Urobilinogen,Urine <2.0 mg/dL (<2.0); WBC,Urine 8 /hpf (0-5)
== END 2018-09-23 04:50 | disposition home or self-care (01) ==
LOC: EC 01:46
DX: L03.311 Cellulitis of abdominal wall (principal); R11.2 Nausea with vomiting, unspecified; R19.7 Diarrhea, unspecified; K21.9 Gastro-esophageal reflux disease without esophagitis; E03.9 Hypothyroidism, unspecified; G43.909 Migraine, unspecified, not intractable, without status migrainosus; Z87.19 Personal history of other diseases of the digestive system; Z93.1 Gastrostomy status; Z86.711 Personal history of pulmonary embolism; Z90.49 Acquired absence of other specified parts of digestive tract; Z98.890 Other specified postprocedural states; Z79.890 Hormone replacement therapy; Z79.01 Long term (current) use of anticoagulants; Z79.899 Other long term (current) drug therapy; Z88.8 Allergy status to other drugs, medicaments and biological substances
CPT/HCPCS: 36415; 80053; 82150; 83690; 85025; 81001; 87070; 87205; 74177; 99284; 96365; 96375 ×2; 96376; 96361; J1170 ×2; J1200; J2550; Q9967; 87077; 87186

== ENCOUNTER 2018-10-06 06:40 | Emergency (ER) | payer BC ==
[2018-10-06] MEDS ORDERED: SODIUM CHLORIDE 0.9% 1,000 ML IV STA (07:20)
[2018-10-06] MEDS ORDERED: SODIUM CHLORIDE 0.9% 500 ML 500 ML IV STA (07:20)
[2018-10-06] MEDS ORDERED: ONDANSETRON 4 MG/2 ML VIAL IVP STA ×2 (07:20→09:05)
[2018-10-06] MEDS ORDERED: HYDROmorphone 0.5 MG/0.5 ML SYRINGE IVP STA (07:20)
--- NOTE | 2018-10-06 07:38 | ED ---
General Adult HPI - General Chief complaint: Nausea/Vomiting/Diarrhea Stated complaint: Vomiting Time Seen by Provider: 10/06/18 06:50 Source: patient, family, RN notes reviewed Mode of arrival: ambulatory Limitations: no limitations - History of Present Illness Initial comments: This is a 38-year-old female who presents to the emergency department with past medical history significant for gastroparesis. Patient has a J-tube in place because she has had a difficult time maintaining nutrition because she can't eat. Patient states this is been going on for 5 years. Patient states this episode started about 4 hours ago so she decided come the emergency department. Patient states she's having intermittent abdominal cramping. Patient denies any diarrhea. Patient denies any fever chills. Patient states they've been unable to determine why she is gastroparesis. - Related Data Home Medications Medication Instructions Recorded Confirmed Lansoprazole [Prevacid] 30 mg PO BID 02/02/18 10/06/18 Montelukast Chew [Singulair] 10 mg PO DAILY 02/02/18 10/06/18 Topiramate [Trokendi Xr] 50 mg PO DAILY 07/18/18 10/06/18 Apixaban [Eliquis] 5 mg PO BID 08/21/18 10/06/18 SUMAtriptan SUCCINATE [Imitrex] 50 mg PO DAILY PRN 08/21/18 10/06/18 Fluconazole [Diflucan] 200 mg PO DAILY 10/06/18 10/06/18 Ondansetron Odt [Zofran ODT] 8 mg PO Q8HR PRN 10/06/18 10/06/18 Oxycodone 5mg/5ml 15 mg PO Q6H 10/06/18 10/06/18 Promethazine HCl [Phenergan Syrup] 10 ml PO Q6HR PRN 10/06/18 10/06/18 Prucalopride Succinate [Motegrity] 2 mg PO DAILY 10/06/18 10/06/18 Thyroid,Pork [[facility] Thyroid] 60 mg PO Q48H 10/06/18 10/06/18 Thyroid,Pork [[place] Thyroid] 90 mg PO Q48H 10/06/18 10/06/18 Previous Rx's Medication Instructions Recorded Scopolamine 1.5MG/72Hr Patch 1 patch TRANSDERM Q72H #10 patch 07/31/18 [TransDerm Scop] Ciprofloxacin HCl [Cipro] 500 mg PEJ/J-TUBE BID #14 tab 09/27/18 Allergies Allergy/AdvReac Type Severity Reaction Status Date / Time metoclopramide [From Reglan] AdvReac jittery Verified 10/06/18 07:51 prochlorperazine AdvReac JITTERY Verified 10/06/18 07:51 [From Compazine] Review of Systems ROS Statement: Those systems with pertinent positive or pertinent negative responses have been documented in the HPI. ROS Other: All systems not noted in ROS Statement are negative. Past Medical History Past Medical History: GERD/Reflux, Pulmonary Embolus (PE), Thyroid Disorder Additional Past Medical History / Comment(s): Idiopathic gastroparesis, takes little in orally-has J tube for feedings,R pulmonary embolism, pancreatitis, hypothyroid, chronic anemia, sinus problems, migraine History of Any Multi-Drug Resistant Organisms: VRE Date of last positivie culture/infection: 08/01/18 MDRO Source:: VRE URINE Past Surgical History: Section, Cholecystectomy, Hernia Repair, Tonsillectomy Additional Past Surgical History / Comment(s): Picc lines with last one placed 04/2018 last picc removed june 2018, current no PICC line at this time, gastric pacer with removal in spring 2017, J tube, x3, 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 Past Anesthesia/Blood Transfusion Reactions: No Reported Reaction Past Psychological History: Depression Smoking Status: Never smoker Past Alcohol Use History: None Reported Past Drug Use History: None Reported - Past Family History Father Family Medical History: Hypertension Additional Family Medical History / Comment(s): DAD IS 56 AND IN [facility] Mother Additional Family Medical History / Comment(s): MOM IS 56 AND IN [facility] General Exam - General Exam Comments Initial Comments: GENERAL: Patient is well-developed and well-nourished. Patient is nontoxic and well- hydrated and is in mild distress. ENT: Neck is soft and supple. No significant lymphadenopathy is noted. Oropharynx is clear. Moist mucous membranes. Neck has full range of motion without eliciting any pain. EYES: The sclera were anicteric and conjunctiva were pink and moist. Extraocular movements were intact and pupils were equal round and reactive to light. Eyelids were unremarkable. PULMONARY: Unlabored respirations. Good breath sounds bilaterally. No audible rales rhonchi or wheezing was noted. CARDIOVASCULAR: There is a regular rate and rhythm without any murmurs gallops or rubs. ABDOMEN: Soft and nontender with normal bowel sounds. Patient has a J-tube in place SKIN: Skin is clear with no lesions or rashes and otherwise unremarkable. NEUROLOGIC: Patient is alert and oriented x3. Cranial nerves II through XII are grossly intact. Motor and sensory are also intact. Normal speech, volume and content. Symmetrical smile. MUSCULOSKELETAL: Normal extremities with adequate strength and full range of motion. LYMPHATICS: No significant lymphadenopathy is noted PSYCHIATRIC: Normal psychiatric evaluation. Limitations: no limitations Course Vital Signs 10/06/18 10/06/18 06:43 08:46 Temperature 98.3 F Pulse Rate 91 86 Respiratory 20 18 Rate Blood Pressure 133/74 106/74 O2 Sat by Pulse 99 96 Oximetry Medical Decision Making - Lab Data Result diagrams: 10/06/18 07:40 10/06/18 07:40 Lab Results 10/06/18 10/06/18 10/06/18 Range/Units 07:40 07:40 07:40 WBC 5.5 (3.8-10.6) k/uL RBC 5.63 H (3.80-5.40) m/uL Hgb 15.0 (11.4-16.0) gm/dL Hct 45.6 (34.0-46.0) % MCV 80.9 (80.0-100.0) fL MCH 26.6 (25.0-35.0) pg MCHC 32.9 (31.0-37.0) g/dL RDW 15.2 (11.5-15.5) % Plt Count 318 (150-450) k/uL Neutrophils % 58 % Lymphocytes % 31 % Monocytes % 6 % Eosinophils % 2 % Basophils % 1 % Neutrophils # 3.2 (1.3-7.7) k/uL Lymphocytes # 1.7 (1.0-4.8) k/uL Monocytes # 0.3 (0-1.0) k/uL Eosinophils # 0.1 (0-0.7) k/uL Basophils # 0.1 (0-0.2) k/uL Sodium 145 (137-145) mmol/L Potassium 4.4 (3.5-5.1) mmol/L Chloride 113 H (98-107) mmol/L Carbon Dioxide 19 L (22-30) mmol/L Anion Gap 13 mmol/L BUN 7 (7-17) mg/dL Creatinine 0.89 (0.52-1.04) mg/dL Est GFR (CKD-EPI)AfAm >90 (>60 ml/min/1.73 sqM) Est GFR (CKD-EPI)NonAf 84 (>60 ml/min/1.73 sqM) Glucose 87 (74-99) mg/dL Calcium 10.1 (8.4-10.2) mg/dL Total Bilirubin 0.5 (0.2-1.3) mg/dL AST 22 (14-36) U/L ALT 21 (9-52) U/L Alkaline Phosphatase 93 (38-126) U/L Total Protein 7.4 (6.3-8.2) g/dL Albumin 4.5 (3.5-5.0) g/dL Amylase 92 (30-110) U/L Lipase 37 (23-300) U/L Urine Color Urine Appearance (Clear) Urine pH (5.0-8.0) Ur Specific [place] (1.001-1.035) Urine Protein (Negative) Urine Glucose (UA) (Negative) Urine Ketones (Negative) Urine Blood (Negative) Urine Nitrite (Negative) Urine Bilirubin (Negative) Urine Urobilinogen (<2.0) mg/dL Ur Leukocyte Esterase (Negative) Urine RBC (0-5) /hpf Urine WBC (0-5) /hpf Ur Squamous Epith Cells (0-4) /hpf Urine Bacteria (None) /hpf Urine Mucus (None) /hpf Urine HCG, Qual Not Detected (Not Detectd) Urine Opiates Screen (NotDetected) Ur Oxycodone Screen (NotDetected) Urine Methadone Screen (NotDetected) Ur Propoxyphene Screen (NotDetected) Ur Barbiturates Screen (NotDetected) U Tricyclic Antidepress (NotDetected) Ur Phencyclidine Scrn (NotDetected) Ur Amphetamines Screen (NotDetected) U Methamphetamines Scrn (NotDetected) U Benzodiazepines Scrn (NotDetected) Urine Cocaine Screen (NotDetected) U Marijuana (THC) Screen (NotDetected) 10/06/18 Range/Units 07:40 WBC (3.8-10.6) k/uL RBC (3.80-5.40) m/uL Hgb (11.4-16.0) gm/dL Hct (34.0-46.0) % MCV (80.0-100.0) fL MCH (25.0-35.0) pg MCHC (31.0-37.0) g/dL RDW (11.5-15.5) % Plt Count (150-450) k/uL Neutrophils % % Lymphocytes % % Monocytes % % Eosinophils % % Basophils % % Neutrophils # (1.3-7.7) k/uL Lymphocytes # (1.0-4.8) k/uL Monocytes # (0-1.0) k/uL Eosinophils # (0-0.7) k/uL Basophils # (0-0.2) k/uL Sodium (137-145) mmol/L Potassium (3.5-5.1) mmol/L Chloride (98-107) mmol/L Carbon Dioxide (22-30) mmol/L Anion Gap mmol/L BUN (7-17) mg/dL Creatinine (0.52-1.04) mg/dL Est GFR (CKD-EPI)AfAm (>60 ml/min/1.73 sqM) Est GFR (CKD-EPI)NonAf (>60 ml/min/1.73 sqM) Glucose (74-99) mg/dL Calcium (8.4-10.2) mg/dL Total Bilirubin (0.2-1.3) mg/dL AST (14-36) U/L ALT (9-52) U/L Alkaline Phosphatase (38-126) U/L Total Protein (6.3-8.2) g/dL Albumin (3.5-5.0) g/dL Amylase (30-110) U/L Lipase (23-300) U/L Urine Color Yellow Urine Appearance Clear (Clear) Urine pH 6.5 (5.0-8.0) Ur Specific [place] 1.020 (1.001-1.035) Urine Protein Trace H (Negative) Urine Glucose (UA) Negative (Negative) Urine Ketones Negative (Negative) Urine Blood Trace H (Negative) Urine Nitrite Negative (Negative) Urine Bilirubin Negative (Negative) Urine Urobilinogen <2.0 (<2.0) mg/dL Ur Leukocyte Esterase Negative (Negative) Urine RBC 9 H (0-5) /hpf Urine WBC 3 (0-5) /hpf Ur Squamous Epith Cells 3 (0-4) /hpf Urine Bacteria Rare H (None) /hpf Urine Mucus Few H (None) /hpf Urine HCG, Qual (Not Detectd) Urine Opiates Screen Detected H (NotDetected) Ur Oxycodone Screen Not Detected (NotDetected) Urine Methadone Screen Not Detected (NotDetected) Ur Propoxyphene Screen Not Detected (NotDetected) Ur Barbiturates Screen Not Detected (NotDetected) U Tricyclic Antidepress Not Detected (NotDetected) Ur Phencyclidine Scrn Not Detected (NotDetected) Ur Amphetamines Screen Not Detected (NotDetected) U Methamphetamines Scrn Not Detected (NotDetected) U Benzodiazepines Scrn Detected H (NotDetected) Urine Cocaine Screen Not Detected (NotDetected) U Marijuana (THC) Screen Not Detected (NotDetected) Disposition Clinical Impression: Gastroparesis Disposition: HOME SELF-CARE Instructions (If sedation given, give patient instructions): Acute Nausea and Vomiting (ED) Is patient prescribed a controlled substance at d/c from ED?: No Referrals: Karthikeyan Pedro MD [Primary Care Provider] - 1-2 days Time of Disposition: 09:43
[2018-10-06 07:58] LABS: Basophils # (A) 0.1 k/uL (0-0.2); Basophils % (A) 1 %; Eosinophils # (A) 0.1 k/uL (0-0.7); Eosinophils % (A) 2 %; HCT 45.6 % (34.0-46.0); Lymphocytes # (A) 1.7 k/uL (1.0-4.8); Lymphocytes % (A) 31 %; MCH 26.6 pg (25.0-35.0); MCHC 32.9 g/dL (31.0-37.0); MCV 80.9 fL (80.0-100.0); Mean Platelet Volume 7.3; Monocytes # (A) 0.3 k/uL (0-1.0); Monocytes % (A) 6 %; Neutrophils # (A) 3.2 k/uL (1.3-7.7); Neutrophils % (A) 58 %; Platelet Count 318 k/uL (150-450); RBC 5.63 m/uL (3.80-5.40); RDW 15.2 % (11.5-15.5); WBC 5.5 k/uL (3.8-10.6)
[2018-10-06 08:05] LABS: Appearance,Urine Clear (Clear); Bacteria,Urine Rare /hpf; Bilirubin,Urine Negative (Negative); Blood,Urine Trace (Negative); Color,Urine Yellow; Glucose,Urine (UA) Negative (Negative); Ketones,Urine Negative (Negative); Leukocyte Esterase,Urine Negative (Negative); Mucus,Urine Few /hpf; Nitrite,Urine Negative (Negative); PH, Urine 6.5 (5.0-8.0); Protein,Urine Trace (Negative); RBC,Urine 9 /hpf (0-5); Squamous Epithelial Cell,Urine 3 /hpf (0-4); Urobilinogen,Urine <2.0 mg/dL (<2.0); WBC,Urine 3 /hpf (0-5)
[2018-10-06 08:07] LABS: ALT 21 U/L (9-52); AST 22 U/L (14-36); African American GFR (CKD) >90 (>60 ml/min/1.73 sqM); Albumin 4.5 g/dL (3.5-5.0); Alkaline Phosphatase 93 U/L (38-126); Amylase 92 U/L (30-110); Anion Gap 13 mmol/L; Blood Urea Nitrogen 7 mg/dL (7-17); Calcium 10.1 mg/dL (8.4-10.2); Carbon Dioxide 19 mmol/L (22-30); Chloride 113 mmol/L (98-107); Glucose 87 mg/dL (74-99); Lipase 37 U/L (23-300); Potassium 4.4 mmol/L (3.5-5.1); Sodium 145 mmol/L (137-145); Total Bilirubin 0.5 mg/dL (0.2-1.3); Total Protein 7.4 g/dL (6.3-8.2)
[2018-10-06 08:20] LABS: Cocaine Screen,Urine Not Detected (NotDetected); Phencyclidine Screen,Urine Not Detected (NotDetected); Urn Cannabinoid Scrn Not Detected (NotDetected)
[2018-10-06 08:21] LABS: Amphetamine Screen,Urine Not Detected (NotDetected); Barbiturate Screen,Urine Not Detected (NotDetected); Benzodiazepines Screen,Urine Detected (NotDetected); Methadone Screen, Urine Not Detected (NotDetected); Opiate Screen,Urine Detected (NotDetected); Oxycodone Screen, Urine Not Detected (NotDetected); Tricyclic Antidepressant,Urine Not Detected (NotDetected)
[2018-10-06] MEDS ORDERED: PROMETHAZINE INJ 25 MG/ML 1 ML VIAL IM STA (08:27)
[2018-10-06] MEDS ORDERED: HYDROmorphone 1 MG/ML 1 ML SYRINGE IVP STA (09:50)
[2018-10-06 10:11] VITALS: BP 126/78; PULSE 101; RESP 20; TEMP 98.6
== END 2018-10-06 10:08 | disposition home or self-care (01) ==
LOC: EC 06:40
DX: K31.84 Gastroparesis (principal); E03.9 Hypothyroidism, unspecified; G43.909 Migraine, unspecified, not intractable, without status migrainosus; K21.9 Gastro-esophageal reflux disease without esophagitis; Z97.8 Presence of other specified devices; Z86.711 Personal history of pulmonary embolism; Z87.19 Personal history of other diseases of the digestive system; Z79.01 Long term (current) use of anticoagulants; Z79.891 Long term (current) use of opiate analgesic; Z79.899 Other long term (current) drug therapy; Z88.8 Allergy status to other drugs, medicaments and biological substances
CPT/HCPCS: 36415; 80053; 82150; 83690; 85025; 81001; 81025; 80306; 99284; 96374; 96375; 96376 ×2; 96361; 96372; J2550; J2405; J1170 ×2

== ENCOUNTER 2018-10-19 16:35 | Emergency (ER) | payer BC ==
[2018-10-19 17:15] VITALS: RESP 18
[2018-10-19] MEDS ORDERED: HYDROmorphone 0.5 MG/0.5 ML SYRINGE IVP STA ×2 (17:49→19:58)
[2018-10-19] MEDS ORDERED: SODIUM CHLORIDE 0.9% 1,000 ML IV STA (17:49)
[2018-10-19 19:34] LABS: Basophils % (A) 1 %; Eosinophils # (A) 0.1 k/uL (0-0.7); Eosinophils % (A) 1 %; HCT 41.6 % (34.0-46.0); HGB 13.3 gm/dL (11.4-16.0); Hypochromasia Slight; Lymphocytes # (A) 2.1 k/uL (1.0-4.8); Lymphocytes % (A) 24 %; MCH 27.2 pg (25.0-35.0); MCV 85.2 fL (80.0-100.0); Mean Platelet Volume 7.1; Monocytes # (A) 0.5 k/uL (0-1.0); Monocytes % (A) 6 %; Neutrophils # (A) 5.8 k/uL (1.3-7.7); Neutrophils % (A) 67 %; Platelet Count 268 k/uL (150-450); RBC 4.89 m/uL (3.80-5.40); RDW 15.3 % (11.5-15.5); WBC 8.6 k/uL (3.8-10.6)
[2018-10-19 19:45] LABS: ALT 25 U/L (9-52); AST 13 U/L (14-36); African American GFR (CKD) >90 (>60 ml/min/1.73 sqM); Albumin 3.8 g/dL (3.5-5.0); Alkaline Phosphatase 98 U/L (38-126); Amylase 56 U/L (30-110); Anion Gap 11 mmol/L; Blood Urea Nitrogen 11 mg/dL (7-17); Calcium 9.5 mg/dL (8.4-10.2); Carbon Dioxide 17 mmol/L (22-30); Chloride 115 mmol/L (98-107); Glucose 85 mg/dL (74-99); Lipase 32 U/L (23-300); Potassium 3.6 mmol/L (3.5-5.1); Sodium 143 mmol/L (137-145); Total Bilirubin 0.5 mg/dL (0.2-1.3); Total Protein 6.3 g/dL (6.3-8.2)
[2018-10-19 20:27] VITALS: BP 139/91; PULSE 84
--- NOTE | 2018-10-19 20:46 | ED ---
General Adult HPI - General Chief complaint: Recheck/Abnormal Lab/Rx Stated complaint: infected feeding tube area Time Seen by Provider: 10/19/18 17:29 Source: patient, RN notes reviewed Mode of arrival: ambulatory Limitations: no limitations - History of Present Illness Initial comments: 38-year-old female presents to the emergency department for a chief complaint of pain around the PEG tube 3 days. Patient states she has had this before and it was a cellulitic infection. States that she has a little bit of swelling along the PEG tube. This is where her pain is localized. Denies nausea or vomiting. Denies diarrhea. Denies any significant diffuse abdominal pain. No fevers or chills. States PEG tube is still functioning properly.Patient has no other complaints at this time including shortness of breath, chest pain, nausea or vomiting, headache, or visual changes. - Related Data Home Medications Medication Instructions Recorded Confirmed Lansoprazole [Prevacid] 30 mg PO BID 02/02/18 10/19/18 Montelukast Chew [Singulair] 10 mg PO DAILY 02/02/18 10/19/18 Topiramate [Trokendi Xr] 50 mg PO DAILY 07/18/18 10/19/18 Apixaban [Eliquis] 5 mg PO BID 08/21/18 10/19/18 Ondansetron Odt [Zofran ODT] 8 mg PO Q8HR PRN 10/06/18 10/19/18 Oxycodone 5mg/5ml 10 mg PEJ/J-TUBE Q6H PRN 10/06/18 10/19/18 Promethazine HCl [Phenergan Syrup] 12.5 mg PO Q6HR PRN 10/06/18 10/19/18 Thyroid,Pork [[facility] Thyroid] 60 mg PO Q48H 10/06/18 10/19/18 Thyroid,Pork [[facility] Thyroid] 90 mg PO Q48H 10/06/18 10/19/18 Prucalopride Succinate [Motegrity] 1 mg PO DAILY 10/19/18 10/19/18 SUMAtriptan SUCCINATE [Imitrex] 100 mg PO DAILY PRN 10/19/18 10/19/18 Previous Rx's Medication Instructions Recorded Scopolamine 1.5MG/72Hr Patch 1 patch TRANSDERM Q72H #10 patch 07/31/18 [TransDerm Scop] Ciprofloxacin HCl [Cipro] 500 mg PO Q12H 7 Days tab 10/19/18 Mupirocin Calcium [Bactroban 2% 1 applic TOPICAL TID 7 Days gm 10/19/18 Cream] Allergies Allergy/AdvReac Type Severity Reaction Status Date / Time metoclopramide [From Reglan] AdvReac jittery Verified 10/19/18 19:53 prochlorperazine AdvReac JITTERY Verified 10/19/18 19:53 [From Compazine] Review of Systems ROS Statement: Those systems with pertinent positive or pertinent negative responses have been documented in the HPI. ROS Other: All systems not noted in ROS Statement are negative. Past Medical History Past Medical History: GERD/Reflux, Pulmonary Embolus (PE), Thyroid Disorder Additional Past Medical History / Comment(s): Idiopathic gastroparesis, takes little in orally-has J tube for feedings,R pulmonary embolism, pancreatitis, hypothyroid, chronic anemia, sinus problems, migraine History of Any Multi-Drug Resistant Organisms: VRE Date of last positivie culture/infection: 08/01/18 MDRO Source:: VRE URINE Past Surgical History: Section, Cholecystectomy, Hernia Repair, Tonsillectomy Additional Past Surgical History / Comment(s): gastric pacer with removal in spring 2017, J tube, x3, 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 Past Anesthesia/Blood Transfusion Reactions: No Reported Reaction Past Psychological History: Depression Smoking Status: Never smoker Past Alcohol Use History: None Reported Past Drug Use History: None Reported - Past Family History Father Family Medical History: Hypertension Additional Family Medical History / Comment(s): DAD IS 56 AND IN [facility] Mother Additional Family Medical History / Comment(s): MOM IS 56 AND IN [facility] General Exam Limitations: no limitations General appearance: alert, in no apparent distress Head exam: Present: atraumatic, normocephalic, normal inspection Eye exam: Present: normal appearance, PERRL, EOMI. Absent: scleral icterus, conjunctival injection, periorbital swelling ENT exam: Present: normal exam, mucous membranes moist Neck exam: Present: normal inspection, full ROM. Absent: tenderness, meningismus, lymphadenopathy Respiratory exam: Present: normal lung sounds bilaterally. Absent: respiratory distress, wheezes, rales, rhonchi, stridor Cardiovascular Exam: Present: regular rate, normal rhythm, normal heart sounds. Absent: systolic murmur, diastolic murmur, rubs, gallop, clicks GI/Abdominal exam: Present: soft, tenderness (Tenderness around the tube site, no diffuse abdominal tenderness.), normal bowel sounds. Absent: distended, guarding, rebound, rigid, other (No significant erythema surrounding PEG tube. Minimal edema around PEG tube.) Neurological exam: Present: alert, oriented X3, CN II-XII intact Psychiatric exam: Present: normal affect, normal mood Course Vital Signs 10/19/18 10/19/18 17:11 20:26 Temperature 98.3 F Pulse Rate 63 84 Respiratory 18 18 Rate Blood Pressure 118/78 139/91 O2 Sat by Pulse 98 100 Oximetry Medical Decision Making - Medical Decision Making Maribel is a 38-year-old female presenting to the emergency department for pain around PEG tube site. This has been ongoing for a few days. Patient states she has had similar pain before and it was infected at that time. Patient states she took Cipro at that time for this and it resolved. Previous culture did reveal Cipro was sensitive. On exam no significant abdominal tenderness. Labs are unremarkable. Vitals are stable. Discussed with patient and she would rather try outpatient treatment and return if she has worsening abdominal pain will return. Patient had CAT scan a couple weeks ago and does not want that at this time. She'll return if she has any worsening symptoms. Otherwise discussed close follow-up with her surgeon as well as her primary care provider. States that they have an appointment with primary care tomorrow. - Lab Data Result diagrams: 10/19/18 19:23 10/19/18 19:23 Lab Results 10/19/18 10/19/18 10/19/18 Range/Units 19:23 19:23 19:23 WBC 8.6 (3.8-10.6) k/uL RBC 4.89 (3.80-5.40) m/uL Hgb 13.3 (11.4-16.0) gm/dL Hct 41.6 (34.0-46.0) % MCV 85.2 (80.0-100.0) fL MCH 27.2 (25.0-35.0) pg MCHC 32.0 (31.0-37.0) g/dL RDW 15.3 (11.5-15.5) % Plt Count 268 (150-450) k/uL Neutrophils % 67 % Lymphocytes % 24 % Monocytes % 6 % Eosinophils % 1 % Basophils % 1 % Neutrophils # 5.8 (1.3-7.7) k/uL Lymphocytes # 2.1 (1.0-4.8) k/uL Monocytes # 0.5 (0-1.0) k/uL Eosinophils # 0.1 (0-0.7) k/uL Basophils # 0.0 (0-0.2) k/uL Hypochromasia Slight Sodium 143 (137-145) mmol/L Potassium 3.6 (3.5-5.1) mmol/L Chloride 115 H (98-107) mmol/L Carbon Dioxide 17 L (22-30) mmol/L Anion Gap 11 mmol/L BUN 11 (7-17) mg/dL Creatinine 0.81 (0.52-1.04) mg/dL Est GFR (CKD-EPI)AfAm >90 (>60 ml/min/1.73 sqM) Est GFR (CKD-EPI)NonAf >90 (>60 ml/min/1.73 sqM) Glucose 85 (74-99) mg/dL Plasma Lactic Acid Frank 1.3 (0.7-2.0) mmol/L Calcium 9.5 (8.4-10.2) mg/dL Total Bilirubin 0.5 (0.2-1.3) mg/dL AST 13 L (14-36) U/L ALT 25 (9-52) U/L Alkaline Phosphatase 98 (38-126) U/L Total Protein 6.3 (6.3-8.2) g/dL Albumin 3.8 (3.5-5.0) g/dL Amylase 56 (30-110) U/L Lipase 32 (23-300) U/L Disposition Clinical Impression: Pain around PEG tube site Disposition: HOME SELF-CARE Condition: Good Instructions (If sedation given, give patient instructions): How to Use and Care for Your PEG Tube (ED), Abdominal Pain (ED) Additional Instructions: These take Ativan as directed. Please follow-up with your surgeon and primary care in 1-2 days. Return here to the emergency department if you have any other worsening symptoms or any worsening pain, fever, or unable to keep down solids or liquids. Prescriptions: Mupirocin Calcium [Bactroban 2% Cream] 1 applic TOPICAL TID 7 Days gm Ciprofloxacin HCl [Cipro] 500 mg PO Q12H 7 Days tab Is patient prescribed a controlled substance at d/c from ED?: No Referrals: Karthikeyan Pedro MD [Primary Care Provider] - 1-2 days Time of Disposition: 20:40
[2018-10-19 21:04] VITALS: TEMP 99.2
== END 2018-10-19 21:03 | disposition home or self-care (01) ==
LOC: EC 16:35
DX: K94.29 Other complications of gastrostomy (principal); K21.9 Gastro-esophageal reflux disease without esophagitis; E03.9 Hypothyroidism, unspecified; Z88.8 Allergy status to other drugs, medicaments and biological substances; Z79.01 Long term (current) use of anticoagulants; Z79.890 Hormone replacement therapy; Z79.899 Other long term (current) drug therapy; Z86.69 Personal history of other diseases of the nervous system and sense organs; Z86.711 Personal history of pulmonary embolism; Z87.19 Personal history of other diseases of the digestive system; Z90.49 Acquired absence of other specified parts of digestive tract
CPT/HCPCS: 36415; 80053; 82150; 83605; 83690; 85025; 87070; 87205; 99283; 96374; 96376; 96361; J1170; 90471

== ENCOUNTER 2018-10-25 23:14 | Emergency (ER) | payer BC ==
[2018-10-25 23:19] VITALS: TEMP 98.2
[2018-10-26] MEDS ORDERED: diphenhydrAMINE 50 MG/ML 1 ML VIAL IVP STA (00:27)
[2018-10-26] MEDS ORDERED: HYDROmorphone 1 MG/ML 1 ML SYRINGE IVP STA (00:27)
[2018-10-26] MEDS ORDERED: SODIUM CHLORIDE 0.9% 1,000 ML IV ONE (00:27)
[2018-10-26 00:29] LABS: Anisocytosis Slight; Basophils % (A) 0 %; Eosinophils # (A) 0.1 k/uL (0-0.7); Eosinophils % (A) 1 %; HCT 44.4 % (34.0-46.0); HGB 14.6 gm/dL (11.4-16.0); Lymphocytes # (A) 2.3 k/uL (1.0-4.8); Lymphocytes % (A) 24 %; MCH 27.3 pg (25.0-35.0); MCHC 32.9 g/dL (31.0-37.0); MCV 82.8 fL (80.0-100.0); Monocytes # (A) 0.5 k/uL (0-1.0); Monocytes % (A) 6 %; Neutrophils # (A) 6.6 k/uL (1.3-7.7); Neutrophils % (A) 68 %; Platelet Count 337 k/uL (150-450); RBC 5.36 m/uL (3.80-5.40); RDW 16.1 % (11.5-15.5); WBC 9.8 k/uL (3.8-10.6)
[2018-10-26] MEDS ORDERED: PROMETHAZINE INJ 25 MG in SODIUM CHLORIDE 0.9% 50 ML IVPB ONE (00:35)
[2018-10-26 00:42] LABS: ALT 14 U/L (9-52); AST 11 U/L (14-36); African American GFR (CKD) >90 (>60 ml/min/1.73 sqM); Albumin 4.2 g/dL (3.5-5.0); Alkaline Phosphatase 86 U/L (38-126); Amylase 70 U/L (30-110); Anion Gap 12 mmol/L; Blood Urea Nitrogen 14 mg/dL (7-17); Calcium 9.9 mg/dL (8.4-10.2); Carbon Dioxide 16 mmol/L (22-30); Chloride 114 mmol/L (98-107); Glucose 96 mg/dL (74-99); Potassium 3.8 mmol/L (3.5-5.1); Sodium 142 mmol/L (137-145); Total Bilirubin 0.4 mg/dL (0.2-1.3); Total Protein 6.7 g/dL (6.3-8.2)
--- NOTE | 2018-10-26 01:41 | XR ---
EXAM: XR Abdomen, 1 View CLINICAL HISTORY: ITS.REASON XR Reason: Pain TECHNIQUE: Frontal supine view of the abdomen/pelvis. COMPARISON: 07/22/18 FINDINGS: Gastrointestinal tract: Unremarkable. No dilation. Bones/joints: No acute fracture. No dislocation. IUD is in place. Cholecystectomy clips. IMPRESSION: No acute findings.
[2018-10-26] MEDS ORDERED: HYDROmorphone 2 MG/ML 1 ML SYRINGE IVP STA (01:52)
[2018-10-26] MEDS ORDERED: ONDANSETRON 4 MG/2 ML VIAL IVP STA (01:52)
[2018-10-26] MEDS ORDERED: SODIUM CHLORIDE 0.9% 500 ML 500 ML IV ONE (01:53)
--- NOTE | 2018-10-26 02:19 | ED ---
Abdominal Pain HPI - General Chief Complaint: Abdominal Pain Stated Complaint: Vomiting Time Seen by Provider: 10/26/18 00:02 Source: patient Mode of arrival: ambulatory - History of Present Illness Initial Comments: 38 year-old female patient with past medical history significant for idiopathic gastroparesis who has placement of a PEG tube presents to the emergency department today for evaluation of abdominal pain and vomiting. Patient states she's had symptoms since Tuesday. She is describing Patient does have chronic abdominal pain and is well known to our department. She denies any fever or chills with this. She states she has been having diarrhea. She denies any he matochezia, melena, or hematemesis. States that she did take Zofran at home but it did not seem to help. Patient denies any recent rash, fever, chills, shortness breath, chest pain, constipation, back pain, numbness, tingling, dizziness, weakness, hematuria, dysuria, urinary urgency, urinary frequency, headache, visual changes, or any other complaints. Patient is currently taking cephalexin for cellulitis surrounding her PEG tube insertion site. - Related Data Home Medications Medication Instructions Recorded Confirmed Lansoprazole [Prevacid] 30 mg PO BID 02/02/18 10/19/18 Montelukast Chew [Singulair] 10 mg PO DAILY 02/02/18 10/19/18 Topiramate [Trokendi Xr] 50 mg PO DAILY 07/18/18 10/19/18 Apixaban [Eliquis] 5 mg PO BID 08/21/18 10/19/18 Ondansetron Odt [Zofran ODT] 8 mg PO Q8HR PRN 10/06/18 10/19/18 Oxycodone 5mg/5ml 10 mg PEJ/J-TUBE Q6H PRN 10/06/18 10/19/18 Promethazine HCl [Phenergan Syrup] 12.5 mg PO Q6HR PRN 10/06/18 10/19/18 Thyroid,Pork [[place] Thyroid] 60 mg PO Q48H 10/06/18 10/19/18 Thyroid,Pork [[place] Thyroid] 90 mg PO Q48H 10/06/18 10/19/18 Prucalopride Succinate [Motegrity] 1 mg PO DAILY 10/19/18 10/19/18 SUMAtriptan SUCCINATE [Imitrex] 100 mg PO DAILY PRN 10/19/18 10/19/18 Previous Rx's Medication Instructions Recorded Scopolamine 1.5MG/72Hr Patch 1 patch TRANSDERM Q72H #10 patch 07/31/18 [TransDerm Scop] Ciprofloxacin HCl [Cipro] 500 mg PO Q12H 7 Days tab 10/19/18 Mupirocin Calcium [Bactroban 2% 1 applic TOPICAL TID 7 Days gm 10/19/18 Cream] Allergies Allergy/AdvReac Type Severity Reaction Status Date / Time metoclopramide [From Reglan] AdvReac jittery Verified 10/19/18 19:53 prochlorperazine AdvReac JITTERY Verified 10/19/18 19:53 [From Compazine] Review of Systems ROS Statement: Those systems with pertinent positive or pertinent negative responses have been documented in the HPI. ROS Other: All systems not noted in ROS Statement are negative. Past Medical History Past Medical History: GERD/Reflux, Pulmonary Embolus (PE), Thyroid Disorder Additional Past Medical History / Comment(s): Idiopathic gastroparesis, takes little in orally-has J tube for feedings,R pulmonary embolism, pancreatitis, hypothyroid, chronic anemia, sinus problems, migraine History of Any Multi-Drug Resistant Organisms: VRE Date of last positivie culture/infection: 08/01/18 MDRO Source:: VRE URINE Past Surgical History: Section, Cholecystectomy, Hernia Repair, Tonsillectomy Additional Past Surgical History / Comment(s): gastric pacer with removal in spring 2017, J tube, x3, 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 Past Anesthesia/Blood Transfusion Reactions: No Reported Reaction Past Psychological History: Depression Smoking Status: Never smoker Past Alcohol Use History: None Reported Past Drug Use History: None Reported - Past Family History Father Family Medical History: Hypertension Additional Family Medical History / Comment(s): DAD IS 56 AND IN [facility] Mother Additional Family Medical History / Comment(s): MOM IS 56 AND IN [facility] General Exam General appearance: alert, in no apparent distress, other (This well-developed, well-nourished adult female patient in no acute distress. Vital signs upon presentation are temperature 98.2F, pulse 96, respirations 16, blood pressure 130/72, pulse ox 100% on room air.) Eye exam: Present: normal appearance, PERRL, EOMI. Absent: scleral icterus, conjunctival injection, periorbital swelling ENT exam: Present: normal exam, normal oropharynx, mucous membranes moist Respiratory exam: Present: normal lung sounds bilaterally. Absent: respiratory distress, wheezes, rales, rhonchi, stridor Cardiovascular Exam: Present: regular rate, normal rhythm, normal heart sounds. Absent: systolic murmur, diastolic murmur, rubs, gallop, clicks GI/Abdominal exam: Present: soft, tenderness (Generalized), normal bowel sounds. Absent: distended, guarding, rebound, rigid Neurological exam: Present: alert, oriented X3, CN II-XII intact Psychiatric exam: Present: normal affect, normal mood Skin exam: Present: warm, dry, intact, normal color. Absent: rash Course Vital Signs 10/25/18 10/26/18 23:16 02:34 Temperature 98.2 F Pulse Rate 96 62 Respiratory 16 18 Rate Blood Pressure 130/72 116/80 O2 Sat by Pulse 100 98 Oximetry Medical Decision Making - Medical Decision Making 38 year-old female patient presents to the emergency department today for evaluation of abdominal pain, nausea, vomiting, diarrhea. Patient does have th summer symptoms chronically due to idiopathic gastroparesis. She does have a PEG tube and receives tube feedings. Physical examination did reveal mild generalized tenderness. Labs reviewed and are unremarkable. KUB x-ray was obtained and was unremarkable. I did discuss findings and results with the patient. 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 Return parameters were discussed in detail. She verbalizes understanding and agrees with this plan. - Lab Data Result diagrams: 10/26/18 00:10 10/26/18 00:10 Lab Results 10/26/18 10/26/18 Range/Units 00:10 00:10 WBC 9.8 (3.8-10.6) k/uL RBC 5.36 (3.80-5.40) m/uL Hgb 14.6 (11.4-16.0) gm/dL Hct 44.4 (34.0-46.0) % MCV 82.8 (80.0-100.0) fL MCH 27.3 (25.0-35.0) pg MCHC 32.9 (31.0-37.0) g/dL RDW 16.1 H (11.5-15.5) % Plt Count 337 (150-450) k/uL Neutrophils % 68 % Lymphocytes % 24 % Monocytes % 6 % Eosinophils % 1 % Basophils % 0 % Neutrophils # 6.6 (1.3-7.7) k/uL Lymphocytes # 2.3 (1.0-4.8) k/uL Monocytes # 0.5 (0-1.0) k/uL Eosinophils # 0.1 (0-0.7) k/uL Basophils # 0.0 (0-0.2) k/uL Anisocytosis Slight Sodium 142 (137-145) mmol/L Potassium 3.8 (3.5-5.1) mmol/L Chloride 114 H (98-107) mmol/L Carbon Dioxide 16 L (22-30) mmol/L Anion Gap 12 mmol/L BUN 14 (7-17) mg/dL Creatinine 0.75 (0.52-1.04) mg/dL Est GFR (CKD-EPI)AfAm >90 (>60 ml/min/1.73 sqM) Est GFR (CKD-EPI)NonAf >90 (>60 ml/min/1.73 sqM) Glucose 96 (74-99) mg/dL Calcium 9.9 (8.4-10.2) mg/dL Total Bilirubin 0.4 (0.2-1.3) mg/dL AST 11 L (14-36) U/L ALT 14 (9-52) U/L Alkaline Phosphatase 86 (38-126) U/L Total Protein 6.7 (6.3-8.2) g/dL Albumin 4.2 (3.5-5.0) g/dL Amylase 70 (30-110) U/L Lipase 74 (23-300) U/L - Radiology Data Radiology results: report reviewed, image reviewed One view x-ray of the abdomen is obtained. Report was reviewed in its entirety. Impression by Dr. Harvey shows no acute findings. Disposition Clinical Impression: Abdominal pain, Vomiting Disposition: HOME SELF-CARE Condition: Good Instructions (If sedation given, give patient instructions): Acute Nausea and Vomiting (ED), Abdominal Pain (ED) Additional Instructions: Increase fluids. Start with clear liquid diet and advance as tolerated. Follow-up with your primary care physician for recheck as soon as possible. Continue home medications as directed. Return to the emergency department immediately for any new, worsening, or concerning symptoms. Is patient prescribed a controlled substance at d/c from ED?: No Referrals: Karthikeyan Pedro MD [Primary Care Provider] - 1-2 days Time of Disposition: 02:26
[2018-10-26 02:35] VITALS: BP 116/80; PULSE 62; RESP 18
== END 2018-10-26 02:34 | disposition home or self-care (01) ==
LOC: EC 23:14
DX: R10.9 Unspecified abdominal pain (principal); R11.2 Nausea with vomiting, unspecified; R19.7 Diarrhea, unspecified; L03.311 Cellulitis of abdominal wall; K94.29 Other complications of gastrostomy; K31.84 Gastroparesis; K21.9 Gastro-esophageal reflux disease without esophagitis; E03.9 Hypothyroidism, unspecified; Z79.01 Long term (current) use of anticoagulants; Z79.890 Hormone replacement therapy; Z79.899 Other long term (current) drug therapy; Z88.8 Allergy status to other drugs, medicaments and biological substances; Z86.69 Personal history of other diseases of the nervous system and sense organs; Z86.711 Personal history of pulmonary embolism; Z90.49 Acquired absence of other specified parts of digestive tract; Z98.84 Bariatric surgery status
CPT/HCPCS: 99284; 96365; 96375 ×3; 96376; 96361 ×2; 36415; 80053; 82150; 83690; 85025; 74018; J1170 ×2; J1200; J2550; J2405

== ENCOUNTER 2018-10-26 15:12 | Inpatient (IN) | payer BC ==
[2018-10-26] MEDS ORDERED: SODIUM CHLORIDE 0.9% 1,000 ML IV STA (16:19)
[2018-10-26] MEDS ORDERED: HYDROmorphone 1 MG/ML 1 ML SYRINGE IVP STA (16:20)
[2018-10-26] MEDS ORDERED: ONDANSETRON 4 MG/2 ML VIAL IVP STA (16:20)
--- NOTE | 2018-10-26 17:10 | ED ---
Abdominal Pain HPI - General Chief Complaint: Abdominal Pain Stated Complaint: Vomiting Time Seen by Provider: 10/26/18 16:01 Source: patient Mode of arrival: ambulatory Limitations: no limitations - History of Present Illness Initial Comments: Patient is a 38-year-old female with history of gastroparesis is presenting to emergency Department with nausea, vomiting abdominal pain. Patient is a chronic history SYMPTOMS and is normal to the emergency department. Patient has a PEG tube placed. Patient reports she was in the emergency department yesterday when her symptoms were under control once she was discharged the symptoms began recurring. Patient reports the initial nausea vomiting started on Tuesday and has not resolved since. Patient reports taking Phenergan and Zofran dissolvable tablets without improvement and nausea. Patient does report multiple episodes of vomiting. Patient states she sees a GI specialist in [place] for manage ment of her chronic condition. - Related Data Home Medications Medication Instructions Recorded Confirmed Lansoprazole [Prevacid] 30 mg PEJ/J-TUBE BID 02/02/18 10/26/18 Montelukast Chew [Singulair] 10 mg PO DAILY 02/02/18 10/26/18 Topiramate [Trokendi Xr] 50 mg PO DAILY 07/18/18 10/26/18 Apixaban [Eliquis] 5 mg PO BID 08/21/18 10/26/18 Ondansetron Odt [Zofran ODT] 8 mg PO Q8HR PRN 10/06/18 10/26/18 Oxycodone 5mg/5ml 10 mg PEJ/J-TUBE Q6H PRN 10/06/18 10/26/18 Promethazine HCl [Phenergan Syrup] 12.5 mg PO Q6HR PRN 10/06/18 10/26/18 Thyroid,Pork [[place] Thyroid] 60 mg PO Q48H 10/06/18 10/26/18 Thyroid,Pork [[place] Thyroid] 90 mg PO Q48H 10/06/18 10/26/18 Prucalopride Succinate [Motegrity] 1 mg PO DAILY 10/19/18 10/26/18 SUMAtriptan SUCCINATE [Imitrex] 100 mg PO DAILY PRN 10/19/18 10/26/18 Previous Rx's Medication Instructions Recorded Scopolamine 1.5MG/72Hr Patch 1 patch TRANSDERM Q72H #10 patch 07/31/18 [TransDerm Scop] Ciprofloxacin HCl [Cipro] 500 mg PO Q12H 7 Days tab 10/19/18 Mupirocin Calcium [Bactroban 2% 1 applic TOPICAL TID 7 Days gm 10/19/18 Cream] Allergies Allergy/AdvReac Type Severity Reaction Status Date / Time metoclopramide [From Reglan] AdvReac jittery Verified 10/26/18 16:55 prochlorperazine AdvReac JITTERY Verified 10/26/18 16:55 [From Compazine] Review of Systems ROS Statement: Those systems with pertinent positive or pertinent negative responses have been documented in the HPI. ROS Other: All systems not noted in ROS Statement are negative. Past Medical History Past Medical History: GERD/Reflux, Pulmonary Embolus (PE), Thyroid Disorder Additional Past Medical History / Comment(s): Idiopathic gastroparesis, takes little in orally-has J tube for feedings,R pulmonary embolism, pancreatitis, hypothyroid, chronic anemia, sinus problems, migraine History of Any Multi-Drug Resistant Organisms: VRE Date of last positivie culture/infection: 08/01/18 MDRO Source:: VRE URINE Past Surgical History: Section, Cholecystectomy, Hernia Repair, Tonsillectomy Additional Past Surgical History / Comment(s): gastric pacer with removal in spring 2017, J tube, x3, 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 Past Anesthesia/Blood Transfusion Reactions: No Reported Reaction Past Psychological History: Depression Smoking Status: Never smoker Past Alcohol Use History: None Reported Past Drug Use History: None Reported - Past Family History Father Family Medical History: Hypertension Additional Family Medical History / Comment(s): DAD IS 56 AND IN [facility] Mother Additional Family Medical History / Comment(s): MOM IS 56 AND IN [facility] General Exam - General Exam Comments Initial Comments: General: Well-developed well-nourished distress HEENT: Normocephalic/atraumatic, PERLL, pharynx erythema, swallowing well, EAC no erythema, no exudates, TM clear, no cervical lymph nodes Neck: Supple, nontender, trachea midline Chest/Lungs: Normal respirations, no signs of respiratory distress clear to auscultation bilaterally no wheezes, rales, rhonchi Cardiac: Regular rate and rhythm, normal S1-S2, no murmurs rubs or gallops Abdomen/GI: Soft, generalize abdominal tenderness, no suprapubic tenderness, PEG tube Musculoskeletal: Nontender, full range of motion, no edema, strength equal bilaterally Skin: Warmth, no rashes or lesions, no cyanosis or diaphoresis Neurologic: AAO x 3, CN 2-12 intact, Psychiatric: Mood and affect normal, judgment normal Limitations: no limitations Course Vital Signs 10/26/18 15:32 Temperature 98.5 F Pulse Rate 91 Respiratory 16 Rate Blood Pressure 125/83 O2 Sat by Pulse 100 Oximetry Medical Decision Making - Medical Decision Making Patient is a 38 year old female presenting to emergency Department with nausea vomiting abdominal pain. Patient was given 8 mg Zofran with minimal improvement so Phenergan was added. Patient was given 1 mg of Dilaudid followed by 0.5 g of Dilaudid. Patient was given a liter of fluid. Patient reports mild improvement in pain. Considering the patient has been seeking to emergency department for the same reason multiple times, she will be admitted for further medical management. CBC and CMP were obtained. The admitting physician is Dr. Sapp. Disposition Clinical Impression: Abdominal pain, Gastroparesis Disposition: ADMITTED IP TO THIS HOSP Condition: Stable Instructions (If sedation given, give patient instructions): Abdominal Pain (ED) Additional Instructions: Patient will be admitted for further management Is patient prescribed a controlled substance at d/c from ED?: No Referrals: Karthikeyan Pedro MD [Primary Care Provider] - 1-2 days Time of Disposition: 19:23
[2018-10-26] MEDS ORDERED: PROMETHAZINE INJ 25 MG in SODIUM CHLORIDE 0.9% 50 ML IVPB STA (18:13)
[2018-10-26] MEDS ORDERED: HYDROmorphone 0.5 MG/0.5 ML SYRINGE IVP STA (19:05)
[2018-10-26] MEDS ORDERED: ACETAMINOPHEN TAB 325 MG TAB PO PRN (19:19)
[2018-10-26] MEDS ORDERED: HYDROmorphone 0.5 MG/0.5 ML SYRINGE IVP PRN (19:19)
[2018-10-26] MEDS ORDERED: LACTULOSE 20 GM/30 ML CUP PO PRN (19:19)
[2018-10-26] MEDS ORDERED: IBUPROFEN 400 MG TAB PO PRN (19:19)
[2018-10-26] MEDS ORDERED: ONDANSETRON 4 MG/2 ML VIAL IVP PRN ×2 (19:19→22:53)
[2018-10-26] MEDS ORDERED: ALPRAZolam 0.25 MG TAB PO PRN (19:19)
[2018-10-26] MEDS ORDERED: NALOXONE 0.4 MG/ML 1 ML VIAL IV PRN (19:19)
[2018-10-26] MEDS ORDERED: ONDANSETRON 8 MG in SODIUM CHLORIDE 0.9% 50 ML IVPB PRN (19:25)
[2018-10-26 19:46] LABS: Basophils # (A) 0.1 k/uL (0-0.2); Basophils % (A) 1 %; Eosinophils # (A) 0.1 k/uL (0-0.7); Eosinophils % (A) 2 %; HCT 45.9 % (34.0-46.0); HGB 14.9 gm/dL (11.4-16.0); Lymphocytes # (A) 2.3 k/uL (1.0-4.8); Lymphocytes % (A) 29 %; MCH 27.3 pg (25.0-35.0); MCHC 32.5 g/dL (31.0-37.0); MCV 83.9 fL (80.0-100.0); Monocytes # (A) 0.5 k/uL (0-1.0); Monocytes % (A) 6 %; Neutrophils # (A) 4.7 k/uL (1.3-7.7); Neutrophils % (A) 61 %; Platelet Count 340 k/uL (150-450); RBC 5.48 m/uL (3.80-5.40); WBC 7.8 k/uL (3.8-10.6)
[2018-10-26 19:57] LABS: ALT 15 U/L (9-52); AST 15 U/L (14-36); African American GFR (CKD) >90 (>60 ml/min/1.73 sqM); Albumin 4.4 g/dL (3.5-5.0); Alkaline Phosphatase 85 U/L (38-126); Anion Gap 12 mmol/L; Blood Urea Nitrogen 12 mg/dL (7-17); Calcium 9.6 mg/dL (8.4-10.2); Carbon Dioxide 21 mmol/L (22-30); Chloride 111 mmol/L (98-107); Glucose 56 mg/dL (74-99); Non-African American GFR(CKD) >90 (>60 ml/min/1.73 sqM); Potassium 4.1 mmol/L (3.5-5.1); Sodium 144 mmol/L (137-145); Total Bilirubin 0.4 mg/dL (0.2-1.3)
[2018-10-26 20:14] LABS: Glucose,Whole Blood 71 mg/dL (75-99)
[2018-10-26] MEDS ORDERED: DEXTROSE 10% IN WATER 1,000 ML with SODIUM CHLORIDE 2.5MEQ/ML VIAL 153.8 MEQ IV PRN (20:21)
[2018-10-26] MEDS: SODIUM CHLORIDE 0.9% 1,000 ML IV SCH (20:56)
[2018-10-26] MEDS: HYDROmorphone 1 MG/ML 1 ML SYRINGE IVP PRN (21:22)
[2018-10-26] MEDS ORDERED: SUMAtriptan SUCCINATE 50 MG TAB PO PRN (21:30)
[2018-10-26] MEDS ORDERED: PROMETHAZINE HCL 6.25 MG/5 ML CUP PO PRN (21:30)
[2018-10-26] MEDS ORDERED: NON FORMULARY DRUG (Lansoprazole [Prevacid] 30 MG) PEJ/J-Tube SCH (21:30)
[2018-10-26] MEDS: APIXABAN 5 MG TAB PO SCH (22:17)
[2018-10-26] MEDS: MUPIROCIN 2% OINT 22 GM TUBE TOPICAL SCH (22:17)
[2018-10-26] MEDS: TOPIRAMATE 50 MG PO SCH (22:17)
[2018-10-26] MEDS: LORazepam 2 MG/ML INJ IV PRN (23:23)
[2018-10-26] MEDS: diphenhydrAMINE 50 MG/ML 1 ML VIAL IVP PRN (23:23)
[2018-10-27] MEDS: HYDROmorphone 1 MG/ML 1 ML SYRINGE IVP PRN ×6 (03:03→20:46)
[2018-10-27] MEDS: PROMETHAZINE INJ 25 MG in SODIUM CHLORIDE 0.9% 50 ML IVPB PRN ×3 (03:03→20:54)
[2018-10-27] MEDS: PANTOPRAZOLE 40 MG TABLET PO SCH ×2 (06:18→17:02)
[2018-10-27] MEDS: THYROID, PORK 30 MG TAB PO SCH (06:18)
[2018-10-27] MEDS: SODIUM CHLORIDE 0.9% 1,000 ML IV SCH ×2 (06:18→20:26)
[2018-10-27] MEDS: APIXABAN 5 MG TAB PO SCH ×2 (08:58→20:53)
[2018-10-27] MEDS: MONTELUKAST 5 MG CHEWABLE PO SCH (08:58)
[2018-10-27] MEDS: MUPIROCIN 2% OINT 22 GM TUBE TOPICAL SCH ×3 (08:58→20:52)
[2018-10-27] MEDS: PRUCALOPRIDE SUCCINATE 1 MG PO SCH (08:59)
[2018-10-27] MEDS ORDERED: WATER FOR INJECTION, STERILE 10 ML IV ONE ×3 (09:18→22:59)
[2018-10-27] MEDS: diphenhydrAMINE 50 MG/ML 1 ML VIAL IVP PRN ×3 (09:24→23:02)
[2018-10-27] MEDS: LORazepam 2 MG/ML INJ IV PRN ×3 (09:25→23:02)
[2018-10-27] MEDS ORDERED: OXYCODONE PEJ/J-Tube PRN (11:47)
[2018-10-27] MEDS: ONDANSETRON 8 MG in SODIUM CHLORIDE 0.9% 50 ML IVPB PRN (14:34)
[2018-10-27] MEDS: TOPIRAMATE 50 MG PO SCH (20:53)
[2018-10-27] MEDS ORDERED: CIPROFLOXACIN HCL 500 MG TAB PO SCH (21:00)
--- NOTE | 2018-10-27 21:03 | HP ---
HISTORY AND PHYSICAL CHIEF COMPLAINT: Abdominal pain. HISTORY OF PRESENT ILLNESS: This is another of many admissions for this 38-year-old white female who has a history of gastroparesis. She is not diabetic. She receives a lot of her care at [facility] and whenever she starts having pain, she starts vomiting and has to come in for inpatient management of her emesis and pain. She has had no hematemesis, melena, etc. 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 She currently has a jejunostomy tube for feedings. She has had a history of right pulmonary embolism in the past and problems with pancreatitis, hypothyroidism, chronic anemia, migraines and sinus issues. REVIEW OF SYSTEMS: She has had no recent changes in vision or hearing, cough, hemoptysis, history of heart disease, history of hypertension, hematemesis, melena, hematochezia, renal failure, hematuria, dysuria, frequency, urgency, diabetes, etc. Past medical history, family history and personal and social histories reveal that she is ALLERGIC TO PROCHLORPERAZINE AND METOCLOPRAMIDE. MEDICATIONS: That she takes include: Apixaban 5 mg b.i.d., Cipro 500 b.i.d., Prevacid 30 mg twice a day, montelukast 10 mg once a day, 8 mg of Zofran q.8h p.r.n., oxycodone 5 mg per 5 mL q.6 p.r.n., promethazine or Phenergan 6.25 mg per 5 mL q.6 p.r.n., prucalopride succinate 1 mg once a day, scopolamine patch every 72 hours p.r.n., Imitrex 100 mg 1 or 2 a day for migraines, porcine thyroid 60 mg plus 90 mg every 48 hours, topiramate 50 mg once a day. The laboratory studies in the emergency room her white count was normal. Blood sugar was 56. PHYSICAL EXAM: Blood pressure 125/83, pulse of 91 and regular, respirations of 16 and temperature of 98.5. In general, she appeared to be well developed, well nourished, in no acute distress. Skin color is normal. Skin is warm, dry. Lymph nodes not enlarged. Head, ears, eyes, nose, mouth, and throat were normal and there are no neck masses. Chest is clear. Cardiac exam demonstrates sinus rhythm and the abdomen slightly protuberant and bowel sounds are heard. Extremities are normal. Neurologically she is intact. IMPRESSION: 1. Abdominal pain. 2. History of gastroparesis, etiology unknown. 3. Feeding jejunostomy tube. 4. Intractable abdominal pain and vomiting. PLAN: 1. Bedrest. 2. IV fluids. 3. IV analgesics. 4. IV analgesics and antiemetics. MMODL / IJN: [id number] /
--- NOTE | 2018-10-27 21:24 | PN ---
PROGRESS NOTE CHIEF COMPLAINT: Intractable abdominal pain and vomiting with gastroparesis. HISTORY OF PRESENT ILLNESS: This lady is still having significant generalized abdominal pain and continued vomiting. She has had no fever or chills. PHYSICAL EXAM: Color is good. Chest is clear. Cardiac exam is normal. IMPRESSION: Gastroparesis with intractable pain, nausea and vomiting. PLAN: Continue with IV fluids, antiemetics and analgesics. MMODL / IJN: [id number] /
[2018-10-28] MEDS: HYDROmorphone 1 MG/ML 1 ML SYRINGE IVP PRN ×8 (00:07→23:38)
[2018-10-28] MEDS: PROMETHAZINE INJ 25 MG in SODIUM CHLORIDE 0.9% 50 ML IVPB PRN ×3 (03:19→20:39)
[2018-10-28] MEDS: diphenhydrAMINE 50 MG/ML 1 ML VIAL IVP PRN ×3 (05:36→18:37)
[2018-10-28] MEDS: LORazepam 2 MG/ML INJ IV PRN ×3 (05:42→18:33)
[2018-10-28] MEDS: PANTOPRAZOLE 40 MG TABLET PO SCH ×2 (09:28→17:46)
[2018-10-28] MEDS: THYROID, PORK 30 MG TAB PO SCH (09:28)
[2018-10-28] MEDS: MUPIROCIN 2% OINT 22 GM TUBE TOPICAL SCH ×3 (09:29→20:31)
[2018-10-28] MEDS: ONDANSETRON ODT 8 MG TAB.RAPDIS PO PRN (09:29)
[2018-10-28] MEDS: SODIUM CHLORIDE 0.9% 1,000 ML IV SCH (09:37)
[2018-10-28] MEDS: APIXABAN 5 MG TAB PO SCH ×2 (10:31→20:30)
[2018-10-28] MEDS: MONTELUKAST 5 MG CHEWABLE PO SCH (10:32)
[2018-10-28] MEDS: PRUCALOPRIDE SUCCINATE 1 MG PO SCH (10:32)
[2018-10-28] MEDS ORDERED: WATER FOR INJECTION, STERILE 10 ML IV ONE ×2 (12:24→18:28)
--- NOTE | 2018-10-28 14:16 | PN ---
PROGRESS NOTE CHIEF COMPLAINT: Gastroparesis with intractable nausea, vomiting and pain. HISTORY OF PRESENT ILLNESS: This lady is still having significant pain and nausea. She has not been able to eat anything. PHYSICAL EXAMINATION: Chest is clear. Cardiac exam is normal. The abdomen is slightly distended and tender throughout. Jejunostomy tube is in place and being used. IMPRESSION: Intractable nausea and vomiting as well as abdominal pain secondary to gastroparesis. PLAN: Continue with limited oral intake, antiemetics and analgesics. MMODL / IJN: [id number] /
[2018-10-28] MEDS: ONDANSETRON 8 MG in SODIUM CHLORIDE 0.9% 50 ML IVPB PRN (15:56)
[2018-10-28] MEDS: TOPIRAMATE 50 MG PO SCH (20:31)
[2018-10-29] MEDS ORDERED: WATER FOR INJECTION, STERILE 10 ML IV ONE (00:28)
[2018-10-29] MEDS: LORazepam 2 MG/ML INJ IV PRN ×4 (00:30→18:21)
[2018-10-29] MEDS: diphenhydrAMINE 50 MG/ML 1 ML VIAL IVP PRN ×4 (00:35→18:21)
[2018-10-29] MEDS: HYDROmorphone 1 MG/ML 1 ML SYRINGE IVP PRN ×7 (04:23→22:15)
[2018-10-29] MEDS: SODIUM CHLORIDE 0.9% 1,000 ML IV SCH (04:28)
[2018-10-29] MEDS: PROMETHAZINE INJ 25 MG in SODIUM CHLORIDE 0.9% 50 ML IVPB PRN ×3 (04:28→22:29)
[2018-10-29] MEDS: THYROID, PORK 30 MG TAB PO SCH (06:38)
[2018-10-29] MEDS: PANTOPRAZOLE 40 MG TABLET PO SCH ×2 (06:39→18:29)
[2018-10-29] MEDS: MONTELUKAST 5 MG CHEWABLE PO SCH (09:31)
[2018-10-29] MEDS: APIXABAN 5 MG TAB PO SCH ×2 (09:31→21:07)
[2018-10-29] MEDS: MUPIROCIN 2% OINT 22 GM TUBE TOPICAL SCH ×3 (09:31→21:07)
[2018-10-29] MEDS: PRUCALOPRIDE SUCCINATE 1 MG PO SCH (09:32)
[2018-10-29] MEDS: SCOPOLAMINE 1.5MG/72HR PATCH TRANSDERM SCH (09:32)
[2018-10-29] MEDS: ONDANSETRON 8 MG in SODIUM CHLORIDE 0.9% 50 ML IVPB PRN (10:11)
--- NOTE | 2018-10-29 14:53 | P.CONS ---
History of Present Illness - Reason for Consult Consult date: 10/28/18 Gastroparesis Requesting physician: Wong Adame - Chief Complaint Nausea and vomiting - History of Present Illness 38-year-old female with a medical history significant for severe gastroparesis for which she follows up with the gastroenterology service at [facility] and has previously had gastric pacemaker placement which has been removed, as well as intermittent constipation and diarrhea, history of pulmonary embolism and DVT who presents with intractable nausea and vomiting. The patient reports that since her last admission she's been seen by [facility] and has had a gastric emptying study which was normal at that time, and that suspicion now is for possible small bowel dysmotility. She reports she has also followed up with the [facility]. Current admission after the patient again began to have nausea and vomiting. She is unclear what triggered the symptoms at this time. She does have a jejunostomy tube for which she receives feeds. There are also plans for testing for SIBO in the future. Laboratory evaluation on pre sentation was significant for WBC 7, hemoglobin 14.9, platelet counts are 40,000, total bilirubin 0.4, alkaline phosphatase 85, AST 15 and ALT 15. Currently the patient is seen lying in bed reporting that symptoms are stable. Review of Systems REVIEW OF SYSTEMS: CONSTITUTIONAL: Denies any fevers, chills, weight change or fatigue. CARDIOVASCULAR: Denies any chest pain, palpitations high or low blood pressures RESPIRATORY: Denies any shortness of breath, hemoptysis or cough. GENITOURINARY: No dysuria or hematuria. MUSCULOSKELETAL: No weakness reported. SKIN: Denies any new rashes or lesions, jaundice or pallor. PSYCHIATRIC: Denies any depression or anxiety. NEUROLOGY: Denies headache, denies any new focal deficits. EARS/NOSE/THROAT: No recent hearing change, congestion, nasal discharge or sore throat. EYES: No pain in eyes, discharge or change in vision. GASTROINTESTINAL: As per HPI. Past Medical History Past Medical History: GERD/Reflux, Pulmonary Embolus (PE), Thyroid Disorder Additional Past Medical History / Comment(s): Idiopathic gastroparesis, takes little in orally-has J tube for feedings,R pulmonary embolism -2017, pancreatitis, hypothyroid, chronic anemia, sinus problems, migraine, dvt 2-2019. 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 No tobacco alcohol or drug use. 3 dogs two cats in the home Smoking Status: Never smoker Past Alcohol Use History: None Reported Additional Past Alcohol Use History / Comment(s): PT DENIES SMOKING OR ANY ILLEGAL DRUG USE, HAS AN OCC DRINK. PT STATED HAD PANCREATITIS APPROX 6 MONTHS AGO STATED THEY THOUGHT MAYBE THERE WAS A STONE SOMEWHERE(HAS HAD HERE GALLBLADDER REMOVED IN THE PAST) Past Drug Use History: None Reported - Past Family History Father Family Medical History: Hypertension Additional Family Medical History / Comment(s): DAD IS 56 AND IN [place] Mother Additional Family Medical History / Comment(s): MOM IS 56 AND IN [place] Medications and Allergies Home Medications Medication Instructions Recorded Confirmed Type Lansoprazole [Prevacid] 30 mg PEJ/J-TUBE BID 02/02/18 10/26/18 History Montelukast Chew [Singulair] 10 mg PO DAILY 02/02/18 10/26/18 History Topiramate [Trokendi Xr] 50 mg PO DAILY 07/18/18 10/26/18 History Scopolamine 1.5MG/72Hr Patch 1 patch TRANSDERM Q72H #10 patch 07/31/18 10/26/18 Rx [TransDerm Scop] Apixaban [Eliquis] 5 mg PO BID 08/21/18 10/26/18 History Ondansetron Odt [Zofran ODT] 8 mg PO Q8HR PRN 10/06/18 10/26/18 History Oxycodone 5mg/5ml 10 mg PEJ/J-TUBE Q6H PRN 10/06/18 10/26/18 History Promethazine HCl [Phenergan Syrup] 12.5 mg PO Q6HR PRN 10/06/18 10/26/18 History Thyroid,Pork [Groom Thyroid] 60 mg PO Q48H 10/06/18 10/26/18 History Thyroid,Pork [Groom Thyroid] 90 mg PO Q48H 10/06/18 10/26/18 History Ciprofloxacin HCl [Cipro] 500 mg PO Q12H 7 Days tab 10/19/18 10/26/18 Rx Mupirocin Calcium [Bactroban 2% 1 applic TOPICAL TID 7 Days gm 10/19/18 10/26/18 Rx Cream] Prucalopride Succinate [Motegrity] 1 mg PO DAILY 10/19/18 10/26/18 History SUMAtriptan SUCCINATE [Imitrex] 100 mg PO DAILY PRN 10/19/18 10/26/18 History Allergies Allergy/AdvReac Type Severity Reaction Status Date / Time metoclopramide [From Reglan] AdvReac Mild jittery Verified 10/26/18 20:49 prochlorperazine AdvReac Mild JITTERY Verified 10/26/18 20:49 [From Compazine] Physical Exam Vitals: Vital Signs Temp Pulse Resp BP BP Pulse Ox 10/29/18 08:38 98.2 F 70 20 115/76 98 10/29/18 00:00 98.4 F 84 18 128/78 96 10/28/18 19:55 99.0 F 83 18 122/78 98 10/28/18 17:05 98.6 F 72 16 121/78 100 Intake and Output 10/28/18 10/29/18 10/29/18 22:59 06:59 14:59 Other: Weight 78 kg On physical examination, patient appears comfortable in no apparent distress. HEAD: Normocephalic, atraumatic. EYES: No scleral icterus. No conjunctival injection. MOUTH: No lesions, tongue midline. NECK: Trachea midline, no gross abnormalities. CHEST: Clear to auscultation with no wheezing or rhonchi appreciated. HEART: Regular rate and rhythm. ABDOMEN: Soft, J-tube in place. Bowel sounds are positive. No organomegaly. No guarding or rigidity. EXTREMITIES: No pedal edema. SKIN: No rashes, no jaundice. NEUROLOGIC: Alert and oriented x3. No focal deficits. Results CBC & Chem 7: 10/26/18 16:49 10/26/18 16:49 Assessment and Plan (1) Gastroparesis Narrative/Plan: 38-year-old female with a known history of gastroparesis for which she follows u p the [facility] and has also been seen [facility] presents with intractable nausea and vomiting. Unclear what triggered current presentation. She reports that evaluation has continued and that planning is for a SIBO testing as well as further motility testing as last gastric emptying study was normal and concern is for hypomotility of the small bowel. Current Visit: Yes Status: Chronic Code(s): K31.84 - GASTROPARESIS SNOMED Code(s): 441185736 (2) Intractable nausea and vomiting Current Visit: No Status: Acute Code(s): R11.2 - NAUSEA WITH VOMITING, UNSPECIFIED SNOMED Code(s): 904587272 (3) Jejunostomy tube present Current Visit: No Status: Chronic Code(s): Z93.4 - OTHER ARTIFICIAL OPENINGS OF GASTROINTESTINAL TRACT STATUS SNOMED Code(s): 013076842 Plan: Supportive care Tube feeds as tolerated Continue antiemetics with Zofran, scopolamine and promethazine Continue fluid hydration No plan for endoscopic evaluation at this time Thank you for allowing us to participate in the care of this patient we will continue to follow
--- NOTE | 2018-10-29 20:16 | P.PN ---
Subjective Progress Note Date: 10/29/18 Principal diagnosis: Nausea and vomiting Patient seen lying in bed reporting that she is feeling slightly better today and is try to eat a Popsicle. No nausea vomiting today reported. Objective - Vital Signs Vital signs: Vital Signs Temp 98.6 F 10/29/18 20:00 Pulse 69 10/29/18 20:00 Resp 18 10/29/18 20:00 BP 121/70 10/29/18 20:00 Pulse Ox 99 10/29/18 20:00 Intake & Output 10/29/18 10/29/18 10/30/18 06:59 18:59 06:59 Weight 78 kg - Exam On physical examination, patient appears comfortable in no apparent distress. HEAD: Normocephalic, atraumatic. EYES: No scleral icterus. No conjunctival injection. MOUTH: No lesions, tongue midline. NECK: Trachea midline, no gross abnormalities. CHEST: Clear to auscultation with no wheezing or rhonchi appreciated. HEART: Regular rate and rhythm. ABDOMEN: Soft, J-tube site appears intact. Bowel sounds are positive. No organomegaly. No guarding or rigidity. EXTREMITIES: No pedal edema. SKIN: No rashes, no jaundice. NEUROLOGIC: Alert and oriented x3. No focal deficits. - Labs CBC & Chem 7: 10/26/18 16:49 10/26/18 16:49 Assessment and Plan (1) Gastroparesis Narrative/Plan: 38-year-old female with a known history of gastroparesis for which she follows up the [facility] and has also been seen [facility] presents with intractable nausea and vomiting. Unclear what triggered current presentation. She reports that evaluation has continued and that planning is for a SIBO testing as well as further motility testing as last gastric emptying study was normal and concern is for hypomotility of the small bowel. Current Visit: Yes Status: Chronic Code(s): K31.84 - GASTROPARESIS SNOMED Code(s): 074638536 (2) Intractable nausea and vomiting Current Visit: No Status: Acute Code(s): R11.2 - NAUSEA WITH VOMITING, UNSPECIFIED SNOMED Code(s): 668239069 (3) Jejunostomy tube present Current Visit: No Status: Chronic Code(s): Z93.4 - OTHER ARTIFICIAL OPENINGS OF GASTROINTESTINAL TRACT STATUS SNOMED Code(s): 229999695 Plan: Supportive care Tube feeds as tolerated Continue antiemetics with Zofran, scopolamine and promethazine Continue fluid hydration No plan for endoscopic evaluation at this time Thank you for allowing us to participate in the care of this patient we will continue to follow
[2018-10-29] MEDS: TOPIRAMATE 50 MG PO SCH (21:07)
--- NOTE | 2018-10-29 21:15 | PN ---
PROGRESS NOTE CHIEF COMPLAINT: Gastroparesis with intractable abdominal pain and vomiting. HISTORY OF PRESENT ILLNESS: This lady is feeling a little bit worse today. She states her pain is worse. She has had a fever. She has not vomited. PHYSICAL EXAM: Chest is clear. Cardiac exam is normal. Abdomen is soft and nontender and the J-tube is in place. IMPRESSION: Gastroparesis with intractable pain. PLAN: Continue with current program. MMODL / IJN: [id number] /
[2018-10-30] MEDS: diphenhydrAMINE 50 MG/ML 1 ML VIAL IVP PRN ×5 (00:21→23:53)
[2018-10-30] MEDS: LORazepam 2 MG/ML INJ IV PRN ×5 (00:22→23:55)
[2018-10-30] MEDS: HYDROmorphone 1 MG/ML 1 ML SYRINGE IVP PRN ×7 (02:08→22:35)
[2018-10-30] MEDS: PROMETHAZINE INJ 25 MG in SODIUM CHLORIDE 0.9% 50 ML IVPB PRN ×3 (04:18→16:35)
[2018-10-30] MEDS: PANTOPRAZOLE 40 MG TABLET PO SCH ×2 (06:13→15:29)
[2018-10-30] MEDS: THYROID, PORK 30 MG TAB PO SCH (07:04)
[2018-10-30] MEDS: MONTELUKAST 5 MG CHEWABLE PO SCH (08:28)
[2018-10-30] MEDS: MUPIROCIN 2% OINT 22 GM TUBE TOPICAL SCH ×3 (08:28→19:56)
[2018-10-30] MEDS: PRUCALOPRIDE SUCCINATE 1 MG PO SCH (08:28)
[2018-10-30] MEDS: APIXABAN 5 MG TAB PO SCH ×2 (08:29→19:55)
[2018-10-30] MEDS: ONDANSETRON 8 MG in SODIUM CHLORIDE 0.9% 50 ML IVPB PRN ×3 (09:29→21:41)
[2018-10-30 10:58] VITALS: BMI 30.4
[2018-10-30] MEDS ORDERED: WATER FOR INJECTION, STERILE 10 ML IV ONE ×2 (12:15→18:25)
[2018-10-30] MEDS: SODIUM CHLORIDE 0.9% 1,000 ML IV SCH (12:25)
[2018-10-30] MEDS: HYDROPHILIC CREAM 180 GM TUBE TOPICAL SCH (17:35)
[2018-10-30] MEDS: TOPIRAMATE 50 MG PO SCH (19:55)
--- NOTE | 2018-10-30 20:09 | PN ---
PROGRESS NOTE DATE OF SERVICE: October 30, 2018 Patient is a 38-year-old pleasant white female admitted to hospital with severe nausea, vomiting for the last few days duration. She was diagnosed with idiopathic gastroparesis and follows at [facility]. She had a J-tube placed about 2 years ago and presently the J-tube feeds are being tolerated. She still has some nausea but no emesis. Receiving Zofran as well as Phenergan every 6 hours. Today, she feels much better, able to tolerate soft diet in small quantities. PHYSICAL EXAMINATION: Appears comfortable in no apparent distress. Vital signs stable. Blood pressure 121/70, pulse is 69, temperature 98.6. HEENT examination unremarkable. Conjunctivae pink. Sclerae anicteric. Oral cavity no lesions. NECK: No JVD or lymph node enlargement. CHEST: Clear to auscultation. HEART: Regular rate and rhythm. ABDOMEN: Soft. Bowel sounds are positive. No organomegaly. J-tube in place. Mild redness along the J-tube. Extremities: No pedal edema. Skin no rashes. NEUROLOGIC: Alert and oriented x3. No focal deficits. LABS: No labs available from today. IMPRESSION: 1. Idiopathic gastroparesis, presently admitted to the hospital with nausea, vomiting for the last few days duration presently her symptoms are gradually improving. Still has some nausea but able to tolerate diet in small quantities, on Zofran and Phenergan every 6 hours as needed. 2. History of J-tube placement with some cellulitis on antibiotics and Dr. Vieira following the patient closely. RECOMMENDATIONS: 1. Continue with symptomatic and supportive care. 2. Small frequent meals. 3. Broad antibiotics for J-tube cellulitis. 4. We will follow her closely during hospital stay. Thank you for this consultation. MMODL / IJN: [id number] /
--- NOTE | 2018-10-30 20:57 | PN ---
PROGRESS NOTE CHIEF COMPLAINT: Intractable nausea, vomiting and gastroparesis with urinary tract infection. HISTORY OF PRESENT ILLNESS: This lady has been put into isolation because VRE has apparently been year in her urine. However, looking at her laboratory studies, I do not see a culture that is being done. She has no urinary symptoms. She is still vomiting and still having pain. PHYSICAL EXAMINATION: Chest is clear. Cardiac exam is normal. Abdomen is soft, nontender. IMPRESSION: 1. Gastroparesis with intractable vomiting and pain. 2. Vancomycin-resistant Enterococcus of the urine. PLAN: 1. Consult with Infectious Disease. 2. Continue with current treatment. MMODL / IJN: [id number] /
--- NOTE | 2018-10-30 22:18 | P.CONS ---
History of Present Illness - Reason for Consult Consult date: 10/30/18 Possible J-tube site cellulitis Requesting physician: Wong Adame - Chief Complaint Irritation and redness around the J-tube x few days - History of Present Illness Patient is a 38 year female with a past medical history significant for idiopathic gastroparesis patient had did have a J-tube for feeding, patient presenting to the hospital with intractable nausea and vomiting, patient denies having any significant abdominal pain, patient denies any fever or chills, patient was noticed to have some erythema around the J-tube site that prompted this infectious disease consultation, patient did have some leakage around the J-tube site, patient also complaining of some itching which is mild in intensity around the G-tube, but no burning pain or any foul-smelling drainage patient is not running any fever or elevated white count patient denies having any chest pain shortness of breath or cough no nausea but has slightly improved the patient has been tolerating her tube feeds and no diarrhea, patient denies having any chest pain shortness of breath or cough Review of Systems Positive points has been mentioned in HPI rest of the systems are negative Past Medical History Past Medical History: GERD/Reflux, Pulmonary Embolus (PE), Thyroid Disorder Additional Past Medical History / Comment(s): Idiopathic gastroparesis, takes little in orally-has J tube for feedings,R pulmonary embolism , pancreatitis, hypothyroid, chronic anemia, sinus problems, migraine, dvt -2018. 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 No tobacco alcohol or drug use. 3 dogs two cats in the home Smoking Status: Never smoker Past Alcohol Use History: None Reported Additional Past Alcohol Use History / Comment(s): PT DENIES SMOKING OR ANY ILLEGAL DRUG USE, HAS AN OCC DRINK. PT STATED HAD PANCREATITIS APPROX 6 MONTHS AGO STATED THEY THOUGHT MAYBE THERE WAS A STONE SOMEWHERE(HAS HAD HERE GALLBLADDER REMOVED IN THE PAST) Past Drug Use History: None Reported - Past Family History Father Family Medical History: Hypertension Additional Family Medical History / Comment(s): DAD IS 56 AND IN [place] Mother Additional Family Medical History / Comment(s): MOM IS 56 AND IN [place] Medications and Allergies Home Medications Medication Instructions Recorded Confirmed Type Lansoprazole [Prevacid] 30 mg PEJ/J-TUBE BID 02/02/18 10/26/18 History Montelukast Chew [Singulair] 10 mg PO DAILY 02/02/18 10/26/18 History Topiramate [Trokendi Xr] 50 mg PO DAILY 07/18/18 10/26/18 History Scopolamine 1.5MG/72Hr Patch 1 patch TRANSDERM Q72H #10 patch 07/31/18 10/26/18 Rx [TransDerm Scop] Apixaban [Eliquis] 5 mg PO BID 08/21/18 10/26/18 History Ondansetron Odt [Zofran ODT] 8 mg PO Q8HR PRN 10/06/18 10/26/18 History Oxycodone 5mg/5ml 10 mg PEJ/J-TUBE Q6H PRN 10/06/18 10/26/18 History Promethazine HCl [Phenergan Syrup] 12.5 mg PO Q6HR PRN 10/06/18 10/26/18 History Thyroid,Pork [Gardena Thyroid] 60 mg PO Q48H 10/06/18 10/26/18 History Thyroid,Pork [Gardena Thyroid] 90 mg PO Q48H 10/06/18 10/26/18 History Ciprofloxacin HCl [Cipro] 500 mg PO Q12H 7 Days tab 10/19/18 10/26/18 Rx Mupirocin Calcium [Bactroban 2% 1 applic TOPICAL TID 7 Days gm 10/19/18 10/26/18 Rx Cream] Prucalopride Succinate [Motegrity] 1 mg PO DAILY 10/19/18 10/26/18 History SUMAtriptan SUCCINATE [Imitrex] 100 mg PO DAILY PRN 10/19/18 10/26/18 History Allergies Allergy/AdvReac Type Severity Reaction Status Date / Time metoclopramide [From Reglan] AdvReac Mild jittery Verified 10/26/18 20:49 prochlorperazine AdvReac Mild JITTERY Verified 10/26/18 20:49 [From Compazine] Physical Exam Vitals: Vital Signs Temp Pulse Resp BP Pulse Ox 10/30/18 12:23 98.6 F 84 16 113/72 95 10/30/18 11:22 16 10/30/18 08:57 97.9 F 76 16 111/64 96 10/29/18 23:00 98.6 F 66 18 121/62 99 10/29/18 20:00 98.6 F 69 18 121/70 99 Intake and Output 10/30/18 10/30/18 10/30/18 06:59 14:59 22:59 Other: Voiding Method Toilet Weight 78 kg GENERAL DESCRIPTION: Middle-aged female lying in bed, no distress. No tachypnea or accessory muscle of respiration use. HEENT: Shows Pallor , no scleral icterus. Oral mucous membrane is dry. No pharyngeal erythema or thrush NECK: Trachea central, no thyromegaly. LUNGS: Unlabored breathing. Clear to auscultation anteriorly. No wheeze or crackle. HEART: S1, S2, regular rate and rhythm. No loud murmur ABDOMEN: Soft, no tenderness , minimal erythema around the J-tube site no foul- smelling drainage EXTREMITIES: No edema of feet. SKIN: No rash, no masses palpable. NEUROLOGICAL: The patient is awake, alert, oriented x3, mood and affect normal. Results CBC & Chem 7: 10/26/18 16:49 10/26/18 16:49 Assessment and Plan Assessment: 1-patient with erythema around the J-tube site more likely a result of irritation from the gastric secretion clinically doubt bacterial or fungal cellulitis in this patient currently with no fever or elevated white count Plan: 1-we will apply thin layer of Triad cream around the J-tube site, that can be done daily 2-no need for systemic antibiotics or antifungals we will follow on clinical condition and culture to further adjust medication if needed Thank you for this consultation will follow this patient along with you Time with Patient: Greater than 30
[2018-10-31] MEDS: HYDROmorphone 1 MG/ML 1 ML SYRINGE IVP PRN ×7 (01:51→22:52)
[2018-10-31] MEDS: PROMETHAZINE INJ 25 MG in SODIUM CHLORIDE 0.9% 50 ML IVPB PRN ×3 (02:02→16:23)
[2018-10-31] MEDS: THYROID, PORK 30 MG TAB PO SCH (06:17)
[2018-10-31] MEDS: LORazepam 2 MG/ML INJ IV PRN ×4 (06:17→23:56)
[2018-10-31] MEDS: PANTOPRAZOLE 40 MG TABLET PO SCH ×2 (06:17→17:29)
[2018-10-31] MEDS: diphenhydrAMINE 50 MG/ML 1 ML VIAL IVP PRN ×3 (06:17→18:41)
[2018-10-31] MEDS: APIXABAN 5 MG TAB PO SCH (08:56)
[2018-10-31] MEDS: MONTELUKAST 5 MG CHEWABLE PO SCH (08:57)
[2018-10-31] MEDS: MUPIROCIN 2% OINT 22 GM TUBE TOPICAL SCH ×2 (08:58→16:16)
[2018-10-31] MEDS: HYDROPHILIC CREAM 180 GM TUBE TOPICAL SCH (09:00)
[2018-10-31] MEDS: PRUCALOPRIDE SUCCINATE 1 MG PO SCH (09:07)
--- NOTE | 2018-10-31 11:59 | P.PN ---
Subjective Progress Note Date: 10/31/18 Principal diagnosis: Acute on chronic nausea vomiting history of idiopathic gastroparesis No complaints. Receiving tube feeds. Nausea vomiting stable. Afebrile. Objective - Vital Signs Vital signs: Vital Signs Temp 98.0 F 10/31/18 08:50 Pulse 84 10/31/18 08:50 Resp 16 10/31/18 08:50 BP 109/64 10/31/18 08:50 Pulse Ox 97 10/31/18 08:50 Intake & Output 10/30/18 10/31/18 10/31/18 18:59 06:59 18:59 Intake Total 240 Balance 240 Weight 78 kg Intake: Oral 240 Other: Voiding Method Toilet # Voids 1 # Bowel Movements 1 - Exam General appearance: The patient is alert, oriented, in no acute distress. HET: Head is normocephalic and atraumatic. Pupils are equal and reactive. Oropharynx is clear without lesions. Neck: Supple without lymphadenopathy. Trachea midline. Heart: S1 S2. Regular rate and rhythm. Lungs: No crackles or wheezes are heard. Abdomen: Soft, nontender, PEG site without erythema or drainage nondistended with bowel sounds. No peritoneal signs. No palpable organomegaly or masses. Extremities: Normal skin color and turgor. No cyanosis, rash, ulceration, clubbing, or edema. Radial and pedal pulses are 2/4 bilaterally. Neurological: No focal deficits. Strength and sensation are grossly intact. - Labs CBC & Chem 7: 10/26/18 16:49 10/26/18 16:49 Assessment and Plan (1) Gastroparesis Narrative/Plan: Idiopathic gastroparesis acute on chronic intractable nausea vomiting symptoms gradually improving. Current Visit: Yes Status: Acute Code(s): K31.84 - GASTROPARESIS SNOMED Code(s): 956110860 Plan: 1. Continue with liquid diet as tolerated into feeds. Continue with antinausea medications and Phenergan as needed. Continue J-tube feeds. We'll follow on an as-needed basis. Follow-up with tertiary care center cook helper vegetable as previously advised. Assessment and plan a care discussed with Dr. Canales
[2018-10-31] MEDS ORDERED: WATER FOR INJECTION, STERILE 10 ML IV ONE ×2 (12:00→18:31)
--- NOTE | 2018-10-31 13:49 | PN ---
PROGRESS NOTE DATE OF SERVICE: 10/31/2018. REASON FOR FOLLOWUP VISIT: J-tube site cellulitis. INTERVAL HISTORY: The patient is currently afebrile. Patient has been breathing comfortably. Patient denies any chest pain, no cough. The nausea, vomiting has improved. Overall drainage at the J-tube site has decreased as well as discomfort. PHYSICAL EXAMINATION: Blood pressure 169/64 with a pulse of 84, temperature 98, she is 97% on room air. General description is a middle-aged female, lying in bed in no distress. RESPIRATORY SYSTEM: Unlabored breathing, clear to auscultation anteriorly. HEART: S1, S2. Regular rate and rhythm. ABDOMEN: Soft. The J-tube site erythema has decreased. DIAGNOSTIC IMPRESSION AND PLAN: 1. Patient with J-tube site erythema, more likely chemical irritation from the ligature on the tube. 2. To continue with the Triad cream, no need for any antifungals or antibacterials at this point. Will monitor clinical course closely. MMODL / IJN: [id number] /
--- NOTE | 2018-10-31 22:53 | PN ---
PROGRESS NOTE DATE OF SERVICE: 10/31/2018 CHIEF COMPLAINT: Gastroparesis. HISTORY OF PRESENT ILLNESS: This lady is still having significant chronic pain with episodes of nausea and vomiting. She has had no fever or chills. PHYSICAL EXAMINATION: Her chest is clear. Cardiac exam is normal. The abdomen is soft and nontender. Bowel sounds are present. IMPRESSION: 1. Intractable abdominal pain. 2. Intractable nausea and vomiting. 3. Gastroparesis. PLAN: We had a discussion about how her course usually goes, in that she does not seem to be improving. She was told we will watch her for another 24 hours and then may have to take some other action. She thought maybe she would be able to go home tomorrow. Continue with current treatment and, hopefully, discharge in the next day or two. COLTEN / MEJIA: [id number] /
[2018-11-01] MEDS: diphenhydrAMINE 50 MG/ML 1 ML VIAL IVP PRN ×5 (00:03→23:36)
[2018-11-01] MEDS: APIXABAN 5 MG TAB PO SCH ×3 (01:47→22:16)
[2018-11-01] MEDS: MUPIROCIN 2% OINT 22 GM TUBE TOPICAL SCH ×4 (01:48→22:20)
[2018-11-01] MEDS: TOPIRAMATE 50 MG PO SCH ×2 (01:48→22:16)
[2018-11-01] MEDS: HYDROmorphone 1 MG/ML 1 ML SYRINGE IVP PRN ×7 (01:50→22:21)
[2018-11-01] MEDS: LORazepam 2 MG/ML INJ IV PRN ×4 (05:45→23:47)
[2018-11-01] MEDS: MONTELUKAST 5 MG CHEWABLE PO SCH (09:12)
[2018-11-01] MEDS: PANTOPRAZOLE 40 MG TABLET PO SCH ×2 (09:12→18:48)
[2018-11-01] MEDS: PRUCALOPRIDE SUCCINATE 1 MG PO SCH (09:13)
[2018-11-01] MEDS: SCOPOLAMINE 1.5MG/72HR PATCH TRANSDERM SCH (09:23)
[2018-11-01] MEDS: THYROID, PORK 30 MG TAB PO SCH (09:29)
[2018-11-01] MEDS: PROMETHAZINE INJ 25 MG in SODIUM CHLORIDE 0.9% 50 ML IVPB PRN (09:33)
[2018-11-01] MEDS: ONDANSETRON ODT 8 MG TAB.RAPDIS PO PRN (11:09)
[2018-11-01] MEDS ORDERED: WATER FOR INJECTION, STERILE 10 ML IV ONE (11:55)
--- NOTE | 2018-11-01 15:21 | PN ---
PROGRESS NOTE DATE OF SERVICE: 11/01/2018 REASON FOR FOLLOWUP: J-tube site possible cellulitis. INTERVAL HISTORY: The patient is currently afebrile. Patient has been breathing comfortably. Patient denies having any chest pain, shortness of breath. No cough. Her nausea, vomiting has improved. The J-tube site drainage has decreased. PHYSICAL EXAMINATION: Blood pressure is 102/66, pulse of 77, temperature 98.1. He is 93% on room air. General description is a middle-aged female, lying in bed in no distress. RESPIRATORY SYSTEM: Unlabored breathing, clear to auscultation anteriorly. HEART: S1, S2. Regular rate and rhythm. ABDOMEN: Soft. The J-tube site redness has improved. Minimal drainage. DIAGNOSTIC IMPRESSION AND PLAN: Patient with J-tube site appeared more likely chemical irritation. Clinically doubt Fungal or bacterial cellulitis. Continue with Triad for protection. No need for any systemic antibiotic or antifungal. Patient will be seen as needed if any questions about her infectious disease care to call me. MMODL / IJN: [id number] / ERYN
--- NOTE | 2018-11-01 16:08 | XR ---
Abdomen HISTORY: Pain, nausea and vomiting Frontal view of the abdomen on 2 images, correlated to prior exam 10/26/2018 KUB Surgical clips noted in the right upper quadrant. There is a jejunostomy tube suspected in the left l ower quadrant. No evident bowel obstruction or pneumoperitoneum. IUD present within the pelvis. Posto p changes are noted to the bowel. Lung bases not included on the exam. IMPRESSION: No acute abnormality is evident. Post instrumentation changes as described.
--- NOTE | 2018-11-01 16:45 | PN ---
PROGRESS NOTE CHIEF COMPLAINT: Gastroparesis with intractable pain, nausea and vomiting. HISTORY OF PRESENT ILLNESS: This lady was doing a little bit better earlier in the day and it was planned that we would discharge her. However, her pain began to exacerbate and she started having more emesis. PHYSICAL EXAMINATION: Color is good. Hydration is good. Abdomen seems soft. Bowel sounds are present. IMPRESSION: Gastroparesis with intractable abdominal pain, nausea and vomiting. PLAN: Because of the lack of progress, we will refer her to Gastroenterology and Surgery and obtain several other studies to see if there is anything else going on to cause her lack of progress. MMODL / IJN: [id number] /
[2018-11-01 17:00] LABS: Basophils # (A) 0.1 k/uL (0-0.2); Basophils % (A) 1 %; Eosinophils # (A) 0.2 k/uL (0-0.7); Eosinophils % (A) 2 %; HCT 47.8 % (34.0-46.0); HGB 15.4 gm/dL (11.4-16.0); Lymphocytes # (A) 2.3 k/uL (1.0-4.8); Lymphocytes % (A) 27 %; MCH 28.1 pg (25.0-35.0); MCHC 32.3 g/dL (31.0-37.0); Mean Platelet Volume 7.1; Monocytes # (A) 0.4 k/uL (0-1.0); Monocytes % (A) 5 %; Neutrophils # (A) 5.4 k/uL (1.3-7.7); Neutrophils % (A) 63 %; Platelet Count 255 k/uL (150-450); RBC 5.49 m/uL (3.80-5.40); RDW 15.2 % (11.5-15.5); WBC 8.5 k/uL (3.8-10.6)
[2018-11-01 17:13] LABS: ALT 16 U/L (9-52); AST 29 U/L (14-36); African American GFR (CKD) >90 (>60 ml/min/1.73 sqM); Albumin 4.2 g/dL (3.5-5.0); Alkaline Phosphatase 85 U/L (38-126); Anion Gap 12 mmol/L; Blood Urea Nitrogen 15 mg/dL (7-17); Calcium 9.6 mg/dL (8.4-10.2); Carbon Dioxide 20 mmol/L (22-30); Chloride 107 mmol/L (98-107); Glucose 93 mg/dL (74-99); Non-African American GFR(CKD) >90 (>60 ml/min/1.73 sqM); Potassium 4.3 mmol/L (3.5-5.1); Sodium 139 mmol/L (137-145); Total Bilirubin 0.4 mg/dL (0.2-1.3); Total Protein 6.9 g/dL (6.3-8.2)
[2018-11-01 19:57] VITALS: RESP 16
[2018-11-01] MEDS: SODIUM CHLORIDE 0.9% 1,000 ML IV SCH (22:16)
[2018-11-02] MEDS: HYDROmorphone 1 MG/ML 1 ML SYRINGE IVP PRN ×3 (02:08→08:52)
[2018-11-02] MEDS: diphenhydrAMINE 50 MG/ML 1 ML VIAL IVP PRN (05:58)
[2018-11-02] MEDS: LORazepam 2 MG/ML INJ IV PRN (06:07)
[2018-11-02] MEDS: THYROID, PORK 30 MG TAB PO SCH (06:08)
[2018-11-02] MEDS: PRUCALOPRIDE SUCCINATE 1 MG PO SCH (08:53)
[2018-11-02] MEDS: PANTOPRAZOLE 40 MG TABLET PO SCH (08:53)
[2018-11-02] MEDS: MONTELUKAST 5 MG CHEWABLE PO SCH (08:53)
[2018-11-02] MEDS: APIXABAN 5 MG TAB PO SCH (08:53)
[2018-11-02] MEDS: HYDROPHILIC CREAM 180 GM TUBE TOPICAL SCH (08:54)
[2018-11-02] MEDS: MUPIROCIN 2% OINT 22 GM TUBE TOPICAL SCH (08:54)
[2018-11-02] MEDS: PROMETHAZINE INJ 25 MG in SODIUM CHLORIDE 0.9% 50 ML IVPB PRN (08:55)
[2018-11-02 09:53] VITALS: BP 108/56; PULSE 71; TEMP 98.7
--- NOTE | 2018-11-02 10:28 | P.GSCN ---
History of Present Illness Consult date: 11/02/18 Reason for Consult: abdominal pain, nausea, vomiting Requesting physician: Wong Adame History of present illness: CHIEF COMPLAINT: abdominal pain, nausea, vomiting HISTORY OF PRESENT ILLNESS: 38-year-old female patient to the emergency room with a chief complaint of nausea and vomiting. Patient has history of severe gastroparesis with J tube placement. She states she follows with a GI specialist at [facility] and a surgeon at [facility]. She reports they have been unable to find a cause of her gastroparesis. She reports she has occasional bouts of nausea and vomiting that she can not control at home and requires admission to the hospital. She reports vomiting yesterday. Denies emesis this morning. She reports epigastric pain. She states she underwent EGD in May of this year and was told it was "normal". She is tolerating tube feedings. She is hoping to be discharged home today. PAST MEDICAL HISTORY: See list. PAST SURGICAL HISTORY: See list. MEDICATIONS: See list. ALLERGIES: See list. SOCIAL HISTORY: No illicit drug use. REVIEW OF SYSTEMS: CONSTITUTIONAL: Denies fever or chills. HEENT: Denies blurred vision, vision changes, or eye pain. Denies hemoptysis ENDOCRINE: Denies heat or cold intolerance. CARDIOVASCULAR: Denies chest pain or pressure. RESPIRATORY: No shortness of breath. GASTROINTESTINAL: see HPI for pertinent findings. NEURO: Denies history of seizures. PSYCH: No depression or suicidal ideation HEMATOLOGIC: Denies bleeding disorders.history of DVT and PE. LYMPHATIC: The patient denies any lumps and bumps around the neck. GENITOURINARY: Denies any blood in urine or increased urinary frequency. MUSCULOSKELETAL: Denies myalgias. Denies joint swelling. Denies decreased range of motion beyond patients baseline. SKIN: Denies pruitis. Denies rash. PHYSICAL EXAM: VITAL SIGNS: Reviewed GENERAL: Well-developed in no acute distress. HEENT: No sclera icterus. Extraocular movements grossly intact. Moist buccal m ucosa. Head is atraumatic, normocephalic. Hears conversational speech. No nasal drainage. NECK: Supple without lymphadenopathy. CHEST: Non-labored respirations and equal bilateral excursions. CARDIOVASCULAR: Regular rate with regular rhythm. Palpable 2+ radial pulses. ABDOMEN: Soft. Nondistended. Tenderness with palpation to epigastric region. J tube noted with tube feeding infusing MUSCULOSKELETAL: No clubbing, cyanosis or edema. NEUROLOGIC: No focal or lateralizing signs. Cranial nerves II through XII grossly intact. PSYCH: Appropriate affect. Alert and oriented to person, place and time. SKIN: Well perfused. Good skin turgor. LABORATORY DATA: WBC 8.5. Hemoglobin 15.4. Platelet count 255. Sodium 139. Potassium 4.3. BUN 15. Creatinine 0.83. Bilirubin 0.4. AST 29. ALT 16. Lipase 16. IMAGING: Abdominal x-ray: No acute abnormality visualized ASSESSMENT: 1. Acute on chronic intractable nausea and vomiting 2. Gastroparesis with history of J tube placement 3. Epigastric discomfort PLAN: 1. Continue tube feedings as tolerated 2. Continue anti-emetics 3. Supportive care 4. No surgical intervention recommended 5. Patient encouraged to follow up with her GI specialist at [facility]. She reports she already has an appointment scheduled later this month. 6. Patient requesting to be discharged home today. She is stable for discharge from a surgical standpoint. Nurse practitioner note has been reviewed by physician. Signing provider agrees with the documented findings, assessment, and plan of care. Past Medical History Past Medical History: GERD/Reflux, Pulmonary Embolus (PE), Thyroid Disorder Additional Past Medical History / Comment(s): Idiopathic gastroparesis, takes little in orally-has J tube for feedings,R pulmonary embolism -2017, pancreatitis, hypothyroid, chronic anemia, sinus problems, migraine, dvt 2-2019. 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 Past Anesthesia/Blood Transfusion Reactions: No Reported Reaction Past Psychological History: Depression Additional Psychological History / Comment(s): lives in the family home with and children. 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 The experience. 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 No tobacco alcohol or drug use. 3 dogs two cats in the home Smoking Status: Never smoker Past Alcohol Use History: None Reported Additional Past Alcohol Use History / Comment(s): PT DENIES SMOKING OR ANY ILLEGAL DRUG USE, HAS AN OCC DRINK. PT STATED HAD PANCREATITIS APPROX 6 MONTHS AGO STATED THEY THOUGHT MAYBE THERE WAS A STONE SOMEWHERE(HAS HAD HERE GALLBLADDER REMOVED IN THE PAST) Past Drug Use History: None Reported - Past Family History Father Family Medical History: Hypertension Additional Family Medical History / Comment(s): DAD IS 56 AND IN [facility] Mother Additional Family Medical History / Comment(s): MOM IS 56 AND IN [facility] Medications and Allergies Home Medications Medication Instructions Recorded Confirmed Type Lansoprazole [Prevacid] 30 mg PEJ/J-TUBE BID 02/02/18 10/26/18 History Montelukast Chew [Singulair] 10 mg PO DAILY 02/02/18 10/26/18 History Topiramate [Trokendi Xr] 50 mg PO DAILY 07/18/18 10/26/18 History Scopolamine 1.5MG/72Hr Patch 1 patch TRANSDERM Q72H #10 patch 07/31/18 10/26/18 Rx [TransDerm Scop] Apixaban [Eliquis] 5 mg PO BID 08/21/18 10/26/18 History Ondansetron Odt [Zofran ODT] 8 mg PO Q8HR PRN 10/06/18 10/26/18 History Oxycodone 5mg/5ml 10 mg PEJ/J-TUBE Q6H PRN 10/06/18 10/26/18 History Promethazine HCl [Phenergan Syrup] 12.5 mg PO Q6HR PRN 10/06/18 10/26/18 History Thyroid,Pork [[place] Thyroid] 60 mg PO Q48H 10/06/18 10/26/18 History Thyroid,Pork [[place] Thyroid] 90 mg PO Q48H 10/06/18 10/26/18 History Ciprofloxacin HCl [Cipro] 500 mg PO Q12H 7 Days tab 10/19/18 10/26/18 Rx Mupirocin Calcium [Bactroban 2% 1 applic TOPICAL TID 7 Days gm 10/19/18 10/26/18 Rx Cream] Prucalopride Succinate [Motegrity] 1 mg PO DAILY 10/19/18 10/26/18 History SUMAtriptan SUCCINATE [Imitrex] 100 mg PO DAILY PRN 10/19/18 10/26/18 History Allergies Allergy/AdvReac Type Severity Reaction Status Date / Time metoclopramide [From Reglan] AdvReac Mild jittery Verified 10/26/18 20:49 prochlorperazine AdvReac Mild JITTERY Verified 10/26/18 20:49 [From Compazine] Surgical - Exam Vital Signs Temp Pulse Resp BP Pulse Ox 98.5 F 91 16 125/83 100 10/26/18 15:32 10/26/18 15:32 10/26/18 15:32 10/26/18 15:32 10/26/18 15:32 Results - Labs 11/01/18 16:02 11/01/18 16:02 Abnormal Lab Results - Last 24 Hours (Table) 11/01/18 11/01/18 Range/Units 16:02 16:02 RBC 5.49 H (3.80-5.40) m/uL Hct 47.8 H (34.0-46.0) % Carbon Dioxide 20 L (22-30) mmol/L Lipase 16 L (23-300) U/L Diabetes panel 11/01/18 Range/Units 16:02 Sodium 139 (137-145) mmol/L Potassium 4.3 (3.5-5.1) mmol/L Chloride 107 (98-107) mmol/L Carbon Dioxide 20 L (22-30) mmol/L BUN 15 (7-17) mg/dL Creatinine 0.83 (0.52-1.04) mg/dL Glucose 93 (74-99) mg/dL Calcium 9.6 (8.4-10.2) mg/dL AST 29 (14-36) U/L ALT 16 (9-52) U/L Alkaline Phosphatase 85 (38-126) U/L Total Protein 6.9 (6.3-8.2) g/dL Albumin 4.2 (3.5-5.0) g/dL Calcium panel 11/01/18 Range/Units 16:02 Calcium 9.6 (8.4-10.2) mg/dL Albumin 4.2 (3.5-5.0) g/dL Pituitary panel 11/01/18 Range/Units 16:02 Sodium 139 (137-145) mmol/L Potassium 4.3 (3.5-5.1) mmol/L Chloride 107 (98-107) mmol/L Carbon Dioxide 20 L (22-30) mmol/L BUN 15 (7-17) mg/dL Creatinine 0.83 (0.52-1.04) mg/dL Glucose 93 (74-99) mg/dL Calcium 9.6 (8.4-10.2) mg/dL Adrenal panel 11/01/18 Range/Units 16:02 Sodium 139 (137-145) mmol/L Potassium 4.3 (3.5-5.1) mmol/L Chloride 107 (98-107) mmol/L Carbon Dioxide 20 L (22-30) mmol/L BUN 15 (7-17) mg/dL Creatinine 0.83 (0.52-1.04) mg/dL Glucose 93 (74-99) mg/dL Calcium 9.6 (8.4-10.2) mg/dL Total Bilirubin 0.4 (0.2-1.3) mg/dL AST 29 (14-36) U/L ALT 16 (9-52) U/L Alkaline Phosphatase 85 (38-126) U/L Total Protein 6.9 (6.3-8.2) g/dL Albumin 4.2 (3.5-5.0) g/dL Assessment and Plan (1) Abdominal pain Current Visit: Yes Status: Acute Code(s): R10.9 - UNSPECIFIED ABDOMINAL PAIN SNOMED Code(s): 19907731 (2) Gastroparesis Current Visit: Yes Status: Acute Code(s): K31.84 - GASTROPARESIS SNOMED Code(s): 996952655
--- NOTE | 2018-11-03 00:42 | DS ---
DISCHARGE SUMMARY CHIEF COMPLAINT: Nausea and vomiting and abdominal pain. HISTORY OF PRESENT ILLNESS AND PHYSICAL EXAM: The details of this lady's history and physical can be found in the initial workup. LABORATORY STUDIES: While she was in the hospital, she had laboratory studies, details of which can be found in the laboratory section of her chart. COURSE IN HOSPITAL: After admission, she was placed on bedrest, started on intravenous fluids and IV antiemetics and analgesics. The pain remained fairly constant as did the nausea and vomiting. It looks as though she was improving around and she had another day with more vomiting and pain. Finally, by the morning of the , she thought that she was able to be discharged home and arrangements will be made to see her in a week or so. She will go home on her usual activity medication. FINAL DIAGNOSES: 1. Gastroparesis. 2. Intractable pain. 3. Intractable nausea and vomiting. OPERATIONS: None. CONSULTATIONS: General surgery, gastroenterology. She is improved. COLTEN / MEJIA: [id number] /
== END 2018-11-02 11:15 | disposition home or self-care (01) | DRG 392 ==
LOC: EC 15:12 → 6PED 19:13 → UNDOADMOB 19:13 → 6PED 21:02 → OBSVTOIN 10-28 16:04 → INTOOBSV 10-28 16:04
PROVIDERS: ADMIT Family Medicine; ATTEND Family Medicine
DX: K31.84 Gastroparesis (principal); E03.9 Hypothyroidism, unspecified; G89.29 Other chronic pain; K21.9 Gastro-esophageal reflux disease without esophagitis; F32.9 Major depressive disorder, single episode, unspecified; G43.909 Migraine, unspecified, not intractable, without status migrainosus; D64.9 Anemia, unspecified; Z79.01 Long term (current) use of anticoagulants; Z79.899 Other long term (current) drug therapy; Z88.8 Allergy status to other drugs, medicaments and biological substances; Z86.711 Personal history of pulmonary embolism; Z86.718 Personal history of other venous thrombosis and embolism; Z90.49 Acquired absence of other specified parts of digestive tract; Z93.4 Other artificial openings of gastrointestinal tract status; Z82.49 Family history of ischemic heart disease and other diseases of the circulatory system
CPT/HCPCS: 36415; 74018; 80053; 83690; 85025; 96361; 96365; 96366; 96375; 96376; 99284

== ENCOUNTER 2018-11-17 20:54 | Emergency (ER) | payer BC ==
[2018-11-17] MEDS ORDERED: SODIUM CHLORIDE 0.9% 1,000 ML IV STA (21:30)
[2018-11-17] MEDS ORDERED: diphenhydrAMINE 50 MG/ML 1 ML VIAL IVP STA (21:31)
[2018-11-17] MEDS ORDERED: PROMETHAZINE INJ 25 MG in SODIUM CHLORIDE 0.9% 50 ML IVPB STA (21:31)
[2018-11-17] MEDS ORDERED: HYDROmorphone 1 MG/ML 1 ML SYRINGE IVP STA ×2 (21:31→23:49)
[2018-11-17 21:49] LABS: Basophils # (A) 0.1 k/uL (0-0.2); Basophils % (A) 1 %; Eosinophils # (A) 0.2 k/uL (0-0.7); Eosinophils % (A) 3 %; HGB 13.4 gm/dL (11.4-16.0); Lymphocytes # (A) 3.2 k/uL (1.0-4.8); Lymphocytes % (A) 51 %; MCH 28.1 pg (25.0-35.0); MCHC 34.3 g/dL (31.0-37.0); Mean Platelet Volume 7.1; Monocytes # (A) 0.4 k/uL (0-1.0); Monocytes % (A) 6 %; Neutrophils # (A) 2.3 k/uL (1.3-7.7); Neutrophils % (A) 37 %; Platelet Count 282 k/uL (150-450); RBC 4.76 m/uL (3.80-5.40); RDW 15.8 % (11.5-15.5); WBC 6.3 k/uL (3.8-10.6)
[2018-11-17 21:58] LABS: ALT 42 U/L (9-52); AST 32 U/L (14-36); African American GFR (CKD) >90 (>60 ml/min/1.73 sqM); Albumin 3.8 g/dL (3.5-5.0); Alkaline Phosphatase 98 U/L (38-126); Amylase 49 U/L (30-110); Anion Gap 8 mmol/L; Blood Urea Nitrogen 11 mg/dL (7-17); Calcium 9.3 mg/dL (8.4-10.2); Carbon Dioxide 21 mmol/L (22-30); Chloride 110 mmol/L (98-107); Glucose 95 mg/dL (74-99); Sodium 139 mmol/L (137-145); Total Bilirubin 0.4 mg/dL (0.2-1.3); Total Protein 6.5 g/dL (6.3-8.2)
[2018-11-17 22:02] LABS: Potassium 4.4 mmol/L (3.5-5.1)
[2018-11-17 23:12] LABS: Appearance,Urine Clear (Clear); Bilirubin,Urine Negative (Negative); Blood,Urine Moderate (Negative); Color,Urine Yellow; Glucose,Urine (UA) Negative (Negative); Ketones,Urine Negative (Negative); Leukocyte Esterase,Urine Small (Negative); Mucus,Urine Occasional /hpf; Nitrite,Urine Negative (Negative); PH, Urine 6.5 (5.0-8.0); Protein,Urine Negative (Negative); RBC,Urine 2 /hpf (0-5); Specific Gravity,Urine 1.012 (1.001-1.035); Squamous Epithelial Cell,Urine 4 /hpf (0-4); Urobilinogen,Urine <2.0 mg/dL (<2.0); WBC,Urine 8 /hpf (0-5)
[2018-11-17] MEDS ORDERED: SODIUM CHLORIDE 0.9% 1,000 ML IV ONE (23:49)
[2018-11-17] MEDS ORDERED: ONDANSETRON 4 MG/2 ML VIAL IVP STA (23:49)
--- NOTE | 2018-11-18 00:09 | ED ---
Nausea/Vomiting/Diarrhea HPI - General Chief complaint: Nausea/Vomiting/Diarrhea Stated complaint: vomiting Source: patient Mode of arrival: ambulatory Limitations: no limitations - History of Present Illness Initial comments: 38 year-old female patient with past medical history significant for gastroparesis, chronic abdominal pain and vomiting presents to the emergency department today for evaluation of midepigastric pain and vomiting since Tuesday. Short states that she generally receives feedings through a G-tube however the tube became displaced several days ago. She does have an appointment coming up to replace it. Patient states that she has been unable to tolerate any oral intake. Without the tube is unable to provide enteric nutrition. Patient denies any fever or chills. Denies any hematemesis, hematochezia, or melena. Denies any constipation or diarrhea. Patient states symptoms are consistent with her usual pain patterns. Patient did recently take a camping trip remained within the state. Denies any sick contacts. Patient denies any recent rash, shortness breath, chest pain, back pain, numbness, tingling, dizziness, weakness, hematuria, dysuria, urinary urgency, urinary frequency, headache, visual changes, or any other complaints. - Related Data Home Medications Medication Instructions Recorded Confirmed Lansoprazole [Prevacid] 30 mg PEJ/J-TUBE BID 02/02/18 11/17/18 Montelukast Chew [Singulair] 10 mg PO DAILY 02/02/18 11/17/18 Topiramate [Trokendi Xr] 50 mg PO DAILY 07/18/18 11/17/18 Apixaban [Eliquis] 5 mg PO BID 08/21/18 11/17/18 Ondansetron Odt [Zofran ODT] 8 mg PO Q8HR PRN 10/06/18 11/17/18 Oxycodone 5mg/5ml 10 mg PEJ/J-TUBE Q6H PRN 10/06/18 11/17/18 Promethazine HCl [Phenergan Syrup] 12.5 mg PO Q6HR PRN 10/06/18 11/17/18 Thyroid,Pork [[place] Thyroid] 60 mg PO Q48H 10/06/18 11/17/18 Thyroid,Pork [[place] Thyroid] 90 mg PO Q48H 10/06/18 11/17/18 Prucalopride Succinate [Motegrity] 1 mg PO BID 10/19/18 11/17/18 SUMAtriptan SUCCINATE [Imitrex] 100 mg PO DAILY PRN 10/19/18 11/17/18 Previous Rx's Medication Instructions Recorded Scopolamine 1.5MG/72Hr Patch 1 patch TRANSDERM Q72H #10 patch 07/31/18 [TransDerm Scop] Mupirocin Calcium [Bactroban 2% 1 applic TOPICAL TID 7 Days gm 10/19/18 Cream] Allergies Allergy/AdvReac Type Severity Reaction Status Date / Time metoclopramide [From Reglan] AdvReac Mild jittery Verified 11/17/18 21:04 prochlorperazine AdvReac Mild JITTERY Verified 11/17/18 21:04 [From Compazine] Review of Systems ROS Statement: Those systems with pertinent positive or pertinent negative responses have been documented in the HPI. ROS Other: All systems not noted in ROS Statement are negative. Past Medical History Past Medical History: GERD/Reflux, Pulmonary Embolus (PE), Thyroid Disorder Additional Past Medical History / Comment(s): Idiopathic gastroparesis, takes little in orally-has J tube for feedings,R pulmonary embolism -2017, pancreatitis, hypothyroid, chronic anemia, sinus problems, migraine, dvt -2018. 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 J tube removed Past Anesthesia/Blood Transfusion Reactions: No Reported Reaction Past Psychological History: Depression Smoking Status: Never smoker Past Alcohol Use History: None Reported Past Drug Use History: None Reported - Past Family History Father Family Medical History: Hypertension Additional Family Medical History / Comment(s): DAD IS 56 AND IN [facility] Mother Additional Family Medical History / Comment(s): MOM IS 56 AND IN [facility] General Exam Limitations: no limitations General appearance: alert, in no apparent distress, other (Physical well- developed, well-nourished adult female patient in no acute distress. Vital signs upon presentation are temperature 98.4F, pulse 67, respirations 18, blood pressure 113/75, pulse ox 98% on room air.) Eye exam: Present: normal appearance, PERRL, EOMI. Absent: scleral icterus, conjunctival injection, periorbital swelling ENT exam: Present: normal exam, normal oropharynx, mucous membranes moist Respiratory exam: Present: normal lung sounds bilaterally. Absent: respiratory distress, wheezes, rales, rhonchi, stridor Cardiovascular Exam: Present: regular rate, normal rhythm, normal heart sounds. Absent: systolic murmur, diastolic murmur, rubs, gallop, clicks GI/Abdominal exam: Present: soft, tenderness (Midepigastric tenderness), normal bowel sounds. Absent: distended, guarding, rebound, rigid Neurological exam: Present: alert, oriented X3, CN II-XII intact Psychiatric exam: Present: normal affect, normal mood Skin exam: Present: warm, dry, intact, normal color. Absent: rash Course Vital Signs 11/17/18 11/17/18 11/18/18 20:55 23:31 02:26 Temperature 98.4 F 98.5 F Pulse Rate 67 82 63 Respiratory 18 19 18 Rate Blood Pressure 113/75 121/70 111/62 O2 Sat by Pulse 98 98 99 Oximetry Medical Decision Making - Medical Decision Making 38-year-old female patient presented to the emergency department today for evaluation of abdominal pain and vomiting. Physical examination reveals midepigastric tenderness. Labs reviewed and are unremarkable. Patient was given IV fluids, pain medication, nausea medication here in the emergency department. Upon reevaluation she does report improvement of symptoms. She'll be discharged at this time to follow-up with her primary care physician and balling head tender for recheck as soon as possible. Return parameters were discussed in detail. She verbalizes understanding and agrees with this plan. - Lab Data Result diagrams: 11/17/18 21:40 11/17/18 21:40 Lab Results 11/17/18 11/17/18 11/17/18 Range/Units 21:40 21:40 22:56 WBC 6.3 (3.8-10.6) k/uL RBC 4.76 (3.80-5.40) m/uL Hgb 13.4 (11.4-16.0) gm/dL Hct 39.0 (34.0-46.0) % MCV 82.0 D (80.0-100.0) fL MCH 28.1 (25.0-35.0) pg MCHC 34.3 (31.0-37.0) g/dL RDW 15.8 H (11.5-15.5) % Plt Count 282 (150-450) k/uL Neutrophils % 37 % Lymphocytes % 51 % Monocytes % 6 % Eosinophils % 3 % Basophils % 1 % Neutrophils # 2.3 (1.3-7.7) k/uL Lymphocytes # 3.2 (1.0-4.8) k/uL Monocytes # 0.4 (0-1.0) k/uL Eosinophils # 0.2 (0-0.7) k/uL Basophils # 0.1 (0-0.2) k/uL Sodium 139 (137-145) mmol/L Potassium 4.4 (3.5-5.1) mmol/L Chloride 110 H (98-107) mmol/L Carbon Dioxide 21 L (22-30) mmol/L Anion Gap 8 mmol/L BUN 11 (7-17) mg/dL Creatinine 0.89 (0.52-1.04) mg/dL Est GFR (CKD-EPI)AfAm >90 (>60 ml/min/1.73 sqM) Est GFR (CKD-EPI)NonAf 84 (>60 ml/min/1.73 sqM) Glucose 95 (74-99) mg/dL Calcium 9.3 (8.4-10.2) mg/dL Total Bilirubin 0.4 (0.2-1.3) mg/dL AST 32 (14-36) U/L ALT 42 (9-52) U/L Alkaline Phosphatase 98 (38-126) U/L Total Protein 6.5 (6.3-8.2) g/dL Albumin 3.8 (3.5-5.0) g/dL Amylase 49 (30-110) U/L Lipase 13 L (23-300) U/L Urine Color Yellow Urine Appearance Clear (Clear) Urine pH 6.5 (5.0-8.0) Ur Specific [place] 1.012 (1.001-1.035) Urine Protein Negative (Negative) Urine Glucose (UA) Negative (Negative) Urine Ketones Negative (Negative) Urine Blood Moderate H (Negative) Urine Nitrite Negative (Negative) Urine Bilirubin Negative (Negative) Urine Urobilinogen <2.0 (<2.0) mg/dL Ur Leukocyte Esterase Small H (Negative) Urine RBC 2 (0-5) /hpf Urine WBC 8 H (0-5) /hpf Ur Squamous Epith Cells 4 (0-4) /hpf Urine Mucus Occasional H (None) /hpf Disposition Clinical Impression: Chronic vomiting, Chronic abdominal pain Disposition: HOME SELF-CARE Condition: Good Instructions (If sedation given, give patient instructions): Acute Nausea and Vomiting (ED), Abdominal Pain (ED) Additional Instructions: Start with clear liquid diet and advance as tolerated. Take all medications as directed. Follow up with your primary care physician for recheck in one to days. Return to the emergency department immediately for any new, worsening, or concerning symptoms. Is patient prescribed a controlled substance at d/c from ED?: No Referrals: Karthikeyan Pedro MD [Primary Care Provider] - 1-2 days Time of Disposition: 01:05
[2018-11-18 02:27] VITALS: BP 111/62; PULSE 63; RESP 18; TEMP 98.5
== END 2018-11-18 02:27 | disposition home or self-care (01) ==
LOC: EC 20:54
DX: G89.29 Other chronic pain (principal); R10.13 Epigastric pain; R11.2 Nausea with vomiting, unspecified; R19.7 Diarrhea, unspecified; K21.9 Gastro-esophageal reflux disease without esophagitis; E03.9 Hypothyroidism, unspecified; G43.909 Migraine, unspecified, not intractable, without status migrainosus; Z87.19 Personal history of other diseases of the digestive system; Z86.711 Personal history of pulmonary embolism; Z86.718 Personal history of other venous thrombosis and embolism; Z90.49 Acquired absence of other specified parts of digestive tract; Z98.890 Other specified postprocedural states; Z79.01 Long term (current) use of anticoagulants; Z79.899 Other long term (current) drug therapy; Z88.8 Allergy status to other drugs, medicaments and biological substances
CPT/HCPCS: 99284; 96365; 96366 ×3; 96374; 96375 ×2; 96376; 96361; 36415; 80053; 82150; 83690; 85025; 81001; J1200; J2550; J2405; J1170 ×2

== ENCOUNTER 2018-11-21 22:34 | Inpatient (IN) | payer BC ==
[2018-11-21] MEDS ORDERED: ONDANSETRON 4 MG/2 ML VIAL IVP STA (22:54)
[2018-11-21] MEDS ORDERED: SODIUM CHLORIDE 0.9% 1,000 ML IV STA ×2 (22:54)
[2018-11-21] MEDS ORDERED: MORPHINE SULFATE 4 MG/ML SYRINGE IV STA (22:54)
--- NOTE | 2018-11-21 23:01 | ED ---
General Adult HPI - General Source: patient Mode of arrival: ambulatory Limitations: no limitations <Jian Mckeon - Last Filed: 11/22/18 00:51> <Maximino Boyd - Last Filed: 11/27/18 08:33> - General Chief complaint: Nausea/Vomiting/Diarrhea Stated complaint: Vomiting Time Seen by Provider: 11/21/18 22:48 - History of Present Illness Initial comments: This 38-year-old white female presents with a complaint of some midepigastric abdominal pain as well as nausea and vomiting. She states that this has been es sentially coming on over the past one week. It became fairly severe today. She does relate a long history of severe gastroparesis. She's had previous gastric bypass as well. She apparently normally receives enteral feedings via J-tube. She had this dislodge approximately 2 weeks ago. It was replaced today by interventional radiology. She states that the procedure went well and that they verified that the tube was in correct position. She has tried home Phenergan and home Zofran without relief. She denies any fevers or chills or diarrhea. No other complaints or modifying factors. (Jian Mckeon) - Related Data Home Medications Medication Instructions Recorded Confirmed Lansoprazole [Prevacid] 30 mg PO BID 02/02/18 11/22/18 Montelukast Chew [Singulair] 10 mg PO DAILY 02/02/18 11/22/18 Topiramate [Trokendi Xr] 50 mg PO DAILY 07/18/18 11/22/18 Apixaban [Eliquis] 5 mg PO BID 08/21/18 11/22/18 Ondansetron Odt [Zofran ODT] 8 mg PO Q8HR PRN 10/06/18 11/22/18 Oxycodone 5mg/5ml 10 mg PO Q6H PRN 10/06/18 11/22/18 Promethazine HCl [Phenergan Syrup] 12.5 mg PO Q6HR PRN 10/06/18 11/22/18 Thyroid,Pork [[place] Thyroid] 60 mg PO Q48H 10/06/18 11/22/18 Thyroid,Pork [[place] Thyroid] 90 mg PO Q48H 10/06/18 11/22/18 Prucalopride Succinate [Motegrity] 1 mg PO BID 10/19/18 11/22/18 SUMAtriptan SUCCINATE [Imitrex] 100 mg PO DAILY PRN 10/19/18 11/22/18 Previous Rx's Medication Instructions Recorded Scopolamine 1.5MG/72Hr Patch 1 patch TRANSDERM Q72H #10 patch 07/31/18 [TransDerm Scop] Mupirocin Calcium [Bactroban 2% 1 applic TOPICAL TID 7 Days gm 10/19/18 Cream] Allergies Allergy/AdvReac Type Severity Reaction Status Date / Time metoclopramide [From Reglan] AdvReac Mild jittery Verified 11/22/18 07:43 prochlorperazine AdvReac Mild JITTERY Verified 11/22/18 07:43 [From Compazine] Review of Systems ROS Other: All systems not noted in ROS Statement are negative. <Jian Mckeon - Last Filed: 11/22/18 00:51> ROS Other: All systems not noted in ROS Statement are negative. <Maximino Boyd - Last Filed: 11/27/18 08:33> ROS Statement: Those systems with pertinent positive or pertinent negative responses have been documented in the HPI. Past Medical History Past Medical History: GERD/Reflux, Pulmonary Embolus (PE), Thyroid Disorder Additional Past Medical History / Comment(s): Idiopathic gastroparesis, takes little in orally-has J tube for feedings,R pulmonary embolism -2017, pancreatitis, hypothyroid, chronic anemia, sinus problems, migraine, dvt -2018. 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 J tube replaced Past Anesthesia/Blood Transfusion Reactions: No Reported Reaction Past Psychological History: Depression Smoking Status: Never smoker Past Alcohol Use History: None Reported Past Drug Use History: None Reported - Past Family History Father Family Medical History: Hypertension Additional Family Medical History / Comment(s): DAD IS 56 AND IN [facility] Mother Additional Family Medical History / Comment(s): MOM IS 56 AND IN [facility]ALTH <MikeJianJoe - Last Filed: 11/22/18 00:51> General Exam Limitations: no limitations <Jian Mckeon - Last Filed: 11/22/18 00:51> - General Exam Comments Initial Comments: GENERAL: The patient is well nourished and well hydrated. VITAL SIGNS: Heart rate, blood pressure, respiratory rate reviewed as recorded in nurse's notes. EYES: Pupils are round and reactive. Extraocular movements are intact. No conjunctival / lid redness or swelling. ENT: No external evidence of injury, swelling, or ecchymosis. Airway is patent. Throat is clear. NECK: Nontender. No swelling or evidence of injury. No subcutaneous emphysema. Trachea is midline. No thyroid mass. HEART: Regular rate and rhythm. Good peripheral pulses. LUNGS/CHEST: Breath sounds clear and equal bilaterally. No rales, rhonchi, or wheezes. No ecchymosis, subcutaneous emphysema, or tenderness. ABDOMEN: There is mild tenderness noted in the midepigastric region. The J-tube is present into the abdomen as well. No palpable masses or organomegaly. No peritoneal signs. No abdominal wall swelling or ecchymosis. EXTREMITIES: No extremity tenderness. Normal muscle tone and function. No thoracolumbar tenderness. NEUROLOGIC: Sensation is grossly intact. Cranial nerve exam reveals face is symmetrical, tongue is midline, speech is clear. SKIN: No abrasions or ecchymosis is noted. No induration or masses noted. PSYCHIATRIC: Alert and oriented. Appropriate behavior and judgment. (Jian Mckeon) Course Vital Signs 11/21/18 11/22/18 22:38 06:02 Temperature 98.5 F Pulse Rate 84 79 Respiratory 18 18 Rate Blood Pressure 138/87 120/80 O2 Sat by Pulse 99 100 Oximetry Medical Decision Making <Jian Mckeon - Last Filed: 11/22/18 00:51> - Lab Data Result diagrams: 11/25/18 12:12 11/25/18 12:12 <Maximino Boyd - Last Filed: 11/27/18 08:33> - Medical Decision Making The patient was seen and examined. All diagnostics were reviewed. An IV is established and she is hydrated. Ample fluid hydration is ordered. The nursing staff does have a hard time getting an IV in the patient. She therefore is given 25 mg of Phenergan IM instead of the Zofran. She also is given 4 mg of morphine IM instead of IV. Multiple attempts are utilized to obtain IV access and labs are delayed due to this difficulty. The acute abdominal series x-ray comes back showing a nonobstructive bowel gas pattern. Further care will be passed off to oncoming shift. (Jian Mckeon) I receive this patient has a sign out, with the impression that the patient should have some IV fluid, medication, and probably would be able to go home following this. Nursing staff was unable to obtain peripheral IV, I therefore started right sided external jugular IV. The patient received fluid and med ication without significant relief and therefore admitted for further symptom control. (Maximino Boyd) - Lab Data Lab Results 11/22/18 11/22/18 Range/Units 01:27 01:27 WBC 8.8 (3.8-10.6) k/uL RBC 5.28 (3.80-5.40) m/uL Hgb 14.1 (11.4-16.0) gm/dL Hct 43.8 (34.0-46.0) % MCV 83.0 (80.0-100.0) fL MCH 26.8 (25.0-35.0) pg MCHC 32.3 (31.0-37.0) g/dL RDW 13.7 (11.5-15.5) % Plt Count 270 (150-450) k/uL Neutrophils % 65 % Lymphocytes % 25 % Monocytes % 6 % Eosinophils % 2 % Basophils % 1 % Neutrophils # 5.7 (1.3-7.7) k/uL Lymphocytes # 2.2 (1.0-4.8) k/uL Monocytes # 0.5 (0-1.0) k/uL Eosinophils # 0.2 (0-0.7) k/uL Basophils # 0.1 (0-0.2) k/uL Sodium 140 (137-145) mmol/L Potassium 4.0 (3.5-5.1) mmol/L Chloride 110 H (98-107) mmol/L Carbon Dioxide 22 (22-30) mmol/L Anion Gap 8 mmol/L BUN 8 (7-17) mg/dL Creatinine 0.75 (0.52-1.04) mg/dL Est GFR (CKD-EPI)AfAm >90 (>60 ml/min/1.73 sqM) Est GFR (CKD-EPI)NonAf >90 (>60 ml/min/1.73 sqM) Glucose 99 (74-99) mg/dL Calcium 10.1 (8.4-10.2) mg/dL Total Bilirubin 0.4 (0.2-1.3) mg/dL AST 18 (14-36) U/L ALT 22 (9-52) U/L Alkaline Phosphatase 105 (38-126) U/L Total Protein 6.7 (6.3-8.2) g/dL Albumin 4.0 (3.5-5.0) g/dL Amylase 59 (30-110) U/L Lipase 12 L (23-300) U/L Disposition Is patient prescribed a controlled substance at d/c from ED?: No <Jian Mckeon - Last Filed: 11/22/18 00:51> <Maximino Boyd - Last Filed: 11/27/18 08:33> Clinical Impression: Abdominal pain, Intractable nausea and vomiting, Gastroparesis, Chronic abdominal pain Disposition: ADMITTED IP TO THIS HOSP Condition: Fair
--- NOTE | 2018-11-21 23:58 | XR ---
EXAM: XR Abdomen 2 Views With XR Chest CLINICAL HISTORY: ITS.REASON XR Reason: abd pain TECHNIQUE: Frontal view of the chest, frontal view of the abdomen/pelvis and upright or decubitus view of the abdomen. COMPARISON: No relevant prior studies available. FINDINGS: Lungs: Unremarkable. No consolidation. Pleural space: Unremarkable. No pneumothorax. Heart: Unremarkable. No cardiomegaly. Mediastinum: Unremarkable. Intraperitoneal space: No free air. Gastrointestinal tract: Unremarkable. No dilation. Bones/joints: Unremarkable. Surgical clips in the right upper quadrant. A catheter device/drain projects over the left flank. IUD projects in the mid pelvis. IMPRESSION: No acute cardiopulmonary findings. Nonobstructive bowel gas pattern.
[2018-11-22] MEDS ORDERED: PROMETHAZINE INJ 25 MG/ML 1 ML VIAL IM STA (00:22)
[2018-11-22] MEDS ORDERED: MORPHINE SULFATE 4 MG/ML SYRINGE IM STA (00:31)
[2018-11-22 01:46] LABS: Basophils # (A) 0.1 k/uL (0-0.2); Basophils % (A) 1 %; Eosinophils # (A) 0.2 k/uL (0-0.7); Eosinophils % (A) 2 %; HCT 43.8 % (34.0-46.0); HGB 14.1 gm/dL (11.4-16.0); Lymphocytes # (A) 2.2 k/uL (1.0-4.8); Lymphocytes % (A) 25 %; MCH 26.8 pg (25.0-35.0); MCHC 32.3 g/dL (31.0-37.0); Mean Platelet Volume 6.6; Monocytes # (A) 0.5 k/uL (0-1.0); Monocytes % (A) 6 %; Neutrophils # (A) 5.7 k/uL (1.3-7.7); Neutrophils % (A) 65 %; Platelet Count 270 k/uL (150-450); RBC 5.28 m/uL (3.80-5.40); RDW 13.7 % (11.5-15.5); WBC 8.8 k/uL (3.8-10.6)
[2018-11-22 02:24] LABS: ALT 22 U/L (9-52); AST 18 U/L (14-36); African American GFR (CKD) >90 (>60 ml/min/1.73 sqM); Alkaline Phosphatase 105 U/L (38-126); Amylase 59 U/L (30-110); Anion Gap 8 mmol/L; Blood Urea Nitrogen 8 mg/dL (7-17); Calcium 10.1 mg/dL (8.4-10.2); Carbon Dioxide 22 mmol/L (22-30); Chloride 110 mmol/L (98-107); Glucose 99 mg/dL (74-99); Sodium 140 mmol/L (137-145); Total Bilirubin 0.4 mg/dL (0.2-1.3); Total Protein 6.7 g/dL (6.3-8.2)
[2018-11-22] MEDS ORDERED: MORPHINE SULFATE 4 MG/ML SYRINGE IVP STA (02:26)
[2018-11-22] MEDS ORDERED: HYDROmorphone 0.5 MG/0.5 ML SYRINGE IVP STA ×2 (03:13→05:26)
[2018-11-22] MEDS ORDERED: PROMETHAZINE INJ 25 MG in SODIUM CHLORIDE 0.9% 50 ML IVPB ONE (03:30)
[2018-11-22] MEDS ORDERED: NALOXONE 0.4 MG/ML 1 ML VIAL IV PRN (05:03)
[2018-11-22] MEDS ORDERED: ONDANSETRON 4 MG/2 ML VIAL IVP PRN (05:03)
[2018-11-22] MEDS ORDERED: OXYCODONE PEJ/J-Tube PRN (05:06)
[2018-11-22] MEDS ORDERED: THYROID PORK 90 MG PO SCH (05:15)
[2018-11-22] MEDS ORDERED: PROMETHAZINE 25 MG TAB PO PRN (06:00)
[2018-11-22] MEDS: HYDROmorphone 0.5 MG/0.5 ML SYRINGE IVP PRN ×5 (07:50→22:05)
[2018-11-22] MEDS: TOPIRAMATE 25 MG TAB PO SCH ×2 (08:58→23:14)
[2018-11-22] MEDS: MONTELUKAST 10 MG TAB PO SCH (08:58)
[2018-11-22] MEDS: APIXABAN 5 MG TAB PO SCH ×2 (08:58→22:05)
[2018-11-22] MEDS: PROMETHAZINE HCL 6.25 MG/5 ML CUP PO PRN ×2 (08:59→20:59)
[2018-11-22] MEDS: THYROID, PORK 30 MG TAB PO SCH (08:59)
[2018-11-22] MEDS: SCOPOLAMINE 1.5MG/72HR PATCH TRANSDERM SCH (08:59)
[2018-11-22] MEDS ORDERED: SUMAtriptan SUCCINATE 50 MG TAB PO PRN (09:00)
[2018-11-22] MEDS: NON-FORMULARY DRUG (Lansoprazole [Prevacid] 30 MG) PEJ/J-Tube SCH ×2 (10:02→22:02)
[2018-11-22] MEDS: PRUCALOPRIDE SUCCINATE 1 MG PO SCH ×2 (10:02→23:13)
[2018-11-22] MEDS ORDERED: PANTOPRAZOLE 40 MG/10 ML VIAL IVP SCH (10:45)
--- NOTE | 2018-11-22 13:52 | P.HPIM ---
History of Present Illness 38-year-old female came in with complaints of midepigastric abdominal pain sharp pain severe as per the patient patient does have history of gastroparesis patient had previous gastric bypass surgery had a gastric pacemaker as maker in the past which got infected follows up in [facility] did not tolerate Reglan in the past and is on anticoagulant medication for nausea. Patient is getting high-dose of opiates here for pain patient uses oxycodone at home for pain appears to have some chronic pain. Abdominal x-ray did not show any significant abnormality patient has a j-tube in place. Patient was started via back on J-tube feedings, gastroenterology will be consulted. She can tolerate J-tube feedings probably she can be discharged. Patient is complaining of nausea as well as not vomiting. Lipase within normal limits abdomen is soft. Review of Systems REVIEW OF SYSTEMS: CONSTITUTIONAL: No fever, no malaise, no fatigue. HEENT: No recent visual problems or hearing problems. Denied any sore throat. CARDIOVASCULAR: No chest pain, orthopnea, PND, no palpitations, no syncope. PULMONARY: No shortness of breath, no cough, no hemoptysis. GASTROINTESTINAL: As mentioned in HPI NEUROLOGICAL: No headaches, no weakness, no numbness. HEMATOLOGICAL: Denies any bleeding or petechiae. GENITOURINARY: Denies any burning micturition, frequency, or urgency. MUSCULOSKELETAL/RHEUMATOLOGICAL: Denies any joint pain, swelling, or any muscle pain. ENDOCRINE: Denies any polyuria or polydipsia. The rest of the 14-point review of systems is negative. Past Medical History Past Medical History: GERD/Reflux, Pulmonary Embolus (PE), Thyroid Disorder Additional Past Medical History / Comment(s): Idiopathic gastroparesis, takes little in orally-has J tube for feedings,R pulmonary embolism -2017, pancreatitis, hypothyroid, chronic anemia, sinus problems, migraine, dvt -2018. 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 No tobacco alcohol or drug use. 3 dogs two cats in the home Smoking Status: Never smoker Past Alcohol Use History: None Reported Additional Past Alcohol Use History / Comment(s): PT DENIES SMOKING OR ANY ILLEGAL DRUG USE, HAS AN OCC DRINK. PT STATED HAD PANCREATITIS APPROX 6 MONTHS AGO STATED THEY THOUGHT MAYBE THERE WAS A STONE SOMEWHERE(HAS HAD HERE GALLBLADDER REMOVED IN THE PAST) Past Drug Use History: None Reported - Past Family History Father Family Medical History: Hypertension Additional Family Medical History / Comment(s): DAD IS 56 AND IN [facility] Mother Additional Family Medical History / Comment(s): MOM IS 56 AND IN [place] [facility] Medications and Allergies Home Medications Medication Instructions Recorded Confirmed Type Lansoprazole [Prevacid] 30 mg PO BID 02/02/18 11/22/18 History Montelukast Chew [Singulair] 10 mg PO DAILY 02/02/18 11/22/18 History Topiramate [Trokendi Xr] 50 mg PO DAILY 07/18/18 11/22/18 History Scopolamine 1.5MG/72Hr Patch 1 patch TRANSDERM Q72H #10 patch 07/31/18 11/22/18 Rx [TransDerm Scop] Apixaban [Eliquis] 5 mg PO BID 08/21/18 11/22/18 History Ondansetron Odt [Zofran ODT] 8 mg PO Q8HR PRN 10/06/18 11/22/18 History Oxycodone 5mg/5ml 10 mg PO Q6H PRN 10/06/18 11/22/18 History Promethazine HCl [Phenergan Syrup] 12.5 mg PO Q6HR PRN 10/06/18 11/22/18 History Thyroid,Pork [[place] Thyroid] 60 mg PO Q48H 10/06/18 11/22/18 History Thyroid,Pork [[place] Thyroid] 90 mg PO Q48H 10/06/18 11/22/18 History Mupirocin Calcium [Bactroban 2% 1 applic TOPICAL TID 7 Days gm 10/19/18 11/22/18 Rx Cream] Prucalopride Succinate [Motegrity] 1 mg PO BID 10/19/18 11/22/18 History SUMAtriptan SUCCINATE [Imitrex] 100 mg PO DAILY PRN 10/19/18 11/22/18 History Allergies Allergy/AdvReac Type Severity Reaction Status Date / Time metoclopramide [From Reglan] AdvReac Mild jittery Verified 11/22/18 07:43 prochlorperazine AdvReac Mild JITTERY Verified 11/22/18 07:43 [From Compazine] Physical Exam Vitals: Vital Signs Temp Pulse Pulse Resp BP BP Pulse Ox 11/22/18 08:15 68 17 11/22/18 07:00 98.0 F 68 17 115/72 98 11/22/18 06:02 79 18 120/80 100 11/21/18 22:38 98.5 F 84 18 138/87 99 Intake and Output 11/21/18 11/22/18 11/22/18 22:59 06:59 14:59 Other: Weight 76.067 kg 76.067 kg PHYSICAL EXAMINATION: GENERAL: The patient is alert and oriented x3, not in any acute distress. Well developed, well nourished. HEENT: Pupils are round and equally reacting to light. EOMI. No scleral icterus. No conjunctival pallor. Normocephalic, atraumatic. No pharyngeal erythema. No thyromegaly. CARDIOVASCULAR: S1 and S2 present. No murmurs, rubs, or gallops. PULMONARY: Chest is clear to auscultation, no wheezing or crackles. ABDOMEN: Soft, nontender, does have good bowel sounds patient does have a G-tube in place insertion site for G-tube is clean without any infection. MUSCULOSKELETAL: No joint swelling or deformity. EXTREMITIES: No cyanosis, clubbing, or pedal edema. NEUROLOGICAL: Gross neurological examination did not reveal any focal deficits. SKIN: No rashes. Results CBC & Chem 7: 11/22/18 01:27 11/22/18 01:27 Labs: Abnormal Lab Results - Last 24 Hours (Table) 11/22/18 Range/Units 01:27 Chloride 110 H (98-107) mmol/L Lipase 12 L (23-300) U/L Thrombosis Risk Factor Assmnt - Choose All That Apply Any of the Below Risk Factors Present?: Yes Each Factor Represents 1 point: Obesity (BMI >25) Thrombosis Risk Factor Assessment Total Risk Factor Score: 1 Thrombosis Risk Factor Assessment Level: Low Risk Assessment and Plan Plan: Epigastric abdominal pain and nausea: Probably secondary to gastroparesis, symp tomatic treatment for this, patient will be started on Protonix as well as that may be a competent of peptic ulcer disease or gastritis. She will be started back on J-tube feedings if she can tolerate probably can be discharged after evaluation with gastroenterology, continue with the rest of her medications for nausea -Gastroesophageal reflux disease -History of PE in the past for which patient is on Eliquis which will be continued -Hypothyroidism - depression For above-mentioned chronic medical problems patient will be resumed on appropriate home medications -
[2018-11-22] MEDS: ONDANSETRON 4 MG/2 ML VIAL IVP PRN ×2 (14:42→21:20)
--- NOTE | 2018-11-22 20:16 | P.CONS ---
History of Present Illness - Reason for Consult Consult date: 11/22/18 Nausea and vomiting Requesting physician: Lorna Finch - Chief Complaint Nausea and vomiting - History of Present Illness 38-year-old female with a medical history significant for severe gastroparesis for which she follows up with the gastroenterology service at [facility] and has previously had gastric pacemaker placement which has been removed, as well as intermittent constipation and diarrhea, history of pulmonary embolism and DVT who presents with intractable nausea and vomiting. Since the patient's last admission she was seen at [facility] yesterday where she had replacement of her J-tube. Recent evaluation by [facility] with gastric emptying study was significant for normal emptying and suspicion for the patient is for small bowel dysmotility. She is also in the [facility] as well. She reports that she was having nausea and vomiting with associated abdominal pain prior to her procedure yesterday however she feels that the procedure flared her symptoms. On presentation laboratory evaluation was significant for a 8.8, hemoglobin 14.1, platelet count 270,000, lipase 12, total bilirubin 0.4, alkaline phosphatase 105, AST 18 and ALT 22. Currently she is seen lying in bed reporting still having some nausea. Review of Systems REVIEW OF SYSTEMS: CONSTITUTIONAL: Denies any fevers, chills, weight change or fatigue. CARDIOVASCULAR: Denies any chest pain, palpitations high or low blood pressures RESPIRATORY: Denies any shortness of breath, hemoptysis or cough. GENITOURINARY: No dysuria or hematuria. MUSCULOSKELETAL: No weakness reported. SKIN: Denies any new rashes or lesions, jaundice or pallor. PSYCHIATRIC: Denies any depression or anxiety. NEUROLOGY: Denies headache, denies any new focal deficits. EARS/NOSE/THROAT: No recent hearing change, congestion, nasal discharge or sore throat. EYES: No pain in eyes, discharge or change in vision. GASTROINTESTINAL: As per HPI. Past Medical History Past Medical History: GERD/Reflux, Pulmonary Embolus (PE), Thyroid Disorder Additional Past Medical History / Comment(s): Idiopathic gastroparesis, takes little in orally-has J tube for feedings,R pulmonary embolism -2017, pancreatitis, hypothyroid, chronic anemia, sinus problems, migraine, dvt 2-2019. 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 No tobacco alcohol or drug use. 3 dogs two cats in the home Smoking Status: Never smoker Past Alcohol Use History: None Reported Additional Past Alcohol Use History / Comment(s): PT DENIES SMOKING OR ANY ILLEGAL DRUG USE, HAS AN OCC DRINK. PT STATED HAD PANCREATITIS APPROX 6 MONTHS AGO STATED THEY THOUGHT MAYBE THERE WAS A STONE SOMEWHERE(HAS HAD HERE GALLBLADDER REMOVED IN THE PAST) Past Drug Use History: None Reported - Past Family History Father Family Medical History: Hypertension Additional Family Medical History / Comment(s): DAD IS 56 AND IN [place] Mother Additional Family Medical History / Comment(s): MOM IS 56 AND IN [place] Medications and Allergies Home Medications Medication Instructions Recorded Confirmed Type Lansoprazole [Prevacid] 30 mg PO BID 02/02/18 11/22/18 History Montelukast Chew [Singulair] 10 mg PO DAILY 02/02/18 11/22/18 History Topiramate [Trokendi Xr] 50 mg PO DAILY 07/18/18 11/22/18 History Scopolamine 1.5MG/72Hr Patch 1 patch TRANSDERM Q72H #10 patch 07/31/18 11/22/18 Rx [TransDerm Scop] Apixaban [Eliquis] 5 mg PO BID 08/21/18 11/22/18 History Ondansetron Odt [Zofran ODT] 8 mg PO Q8HR PRN 10/06/18 11/22/18 History Oxycodone 5mg/5ml 10 mg PO Q6H PRN 10/06/18 11/22/18 History Promethazine HCl [Phenergan Syrup] 12.5 mg PO Q6HR PRN 10/06/18 11/22/18 History Thyroid,Pork [[place] Thyroid] 60 mg PO Q48H 10/06/18 11/22/18 History Thyroid,Pork [[place] Thyroid] 90 mg PO Q48H 10/06/18 11/22/18 History Mupirocin Calcium [Bactroban 2% 1 applic TOPICAL TID 7 Days gm 10/19/18 11/22/18 Rx Cream] Prucalopride Succinate [Motegrity] 1 mg PO BID 10/19/18 11/22/18 History SUMAtriptan SUCCINATE [Imitrex] 100 mg PO DAILY PRN 10/19/18 11/22/18 History Allergies Allergy/AdvReac Type Severity Reaction Status Date / Time metoclopramide [From Reglan] AdvReac Mild jittery Verified 11/22/18 07:43 prochlorperazine AdvReac Mild JITTERY Verified 11/22/18 07:43 [From Compazine] Physical Exam Vitals: Vital Signs Temp Pulse Pulse Resp BP BP Pulse Ox 11/22/18 18:50 98.7 F 64 18 113/73 96 11/22/18 16:25 68 16 11/22/18 14:37 98.2 F 68 16 117/79 100 11/22/18 08:15 68 17 11/22/18 07:00 98.0 F 68 17 115/72 98 11/22/18 06:02 79 18 120/80 100 11/21/18 22:38 98.5 F 84 18 138/87 99 Intake and Output 11/22/18 11/22/18 11/22/18 06:59 14:59 22:59 Intake Total 30 Balance 30 Intake: Oral 0 Tube Feeding 30 Other: Weight 76.067 kg On physical examination, patient appears comfortable in no apparent distress. HEAD: Normocephalic, atraumatic. EYES: No scleral icterus. No conjunctival injection. MOUTH: No lesions, tongue midline. NECK: Trachea midline, no gross abnormalities. CHEST: Clear to auscultation with no wheezing or rhonchi appreciated. HEART: Regular rate and rhythm. ABDOMEN: Soft, J-tube clean dry and intact, mildly tender. Bowel sounds are positive. No organomegaly. No guarding or rigidity. EXTREMITIES: No pedal edema. SKIN: No rashes, no jaundice. NEUROLOGIC: Alert and oriented x3. No focal deficits. Results CBC & Chem 7: 11/22/18 01:27 11/22/18 01:27 Labs: Abnormal Lab Results - Last 24 Hours (Table) 11/22/18 Range/Units 01:27 Chloride 110 H (98-107) mmol/L Lipase 12 L (23-300) U/L Abdominal x-ray: report reviewed (XR abdomen negative) Assessment and Plan (1) Abdominal pain Current Visit: Yes Status: Acute Code(s): R10.9 - UNSPECIFIED ABDOMINAL PAIN SNOMED Code(s): 18754339 (2) Gastroparesis Current Visit: Yes Status: Acute Code(s): K31.84 - GASTROPARESIS SNOMED Code(s): 497090821 (3) Intractable nausea and vomiting Current Visit: Yes Status: Acute Code(s): R11.2 - NAUSEA WITH VOMITING, UNSPECIFIED SNOMED Code(s): 898983282 Plan: Plan: Supportive care Tube feeds as tolerated Continue antiemetics with Zofran and Phenergan change to [id number] Continue fluid hydration No plan for endoscopic evaluation at this time Thank you for allowing us to participate in the care of this patient we will continue to follow
[2018-11-22] MEDS: SODIUM CHLORIDE 0.9% 1,000 ML IV SCH ×2 (22:06→22:07)
[2018-11-23] MEDS: HYDROmorphone 0.5 MG/0.5 ML SYRINGE IVP PRN ×4 (01:20→11:56)
[2018-11-23] MEDS: ONDANSETRON 4 MG/2 ML VIAL IVP PRN ×3 (04:39→17:53)
[2018-11-23] MEDS: PRUCALOPRIDE SUCCINATE 1 MG PO SCH ×2 (09:49→19:51)
[2018-11-23] MEDS: THYROID, PORK 30 MG TAB PO SCH (09:50)
[2018-11-23] MEDS: APIXABAN 5 MG TAB PO SCH ×2 (09:50→19:51)
[2018-11-23] MEDS: MONTELUKAST 10 MG TAB PO SCH (09:50)
[2018-11-23] MEDS: TOPIRAMATE 25 MG TAB PO SCH ×2 (09:50→19:50)
[2018-11-23] MEDS: NON-FORMULARY DRUG (Lansoprazole [Prevacid] 30 MG) PEJ/J-Tube SCH ×2 (10:28→19:50)
[2018-11-23] MEDS: PROMETHAZINE INJ 25 MG in SODIUM CHLORIDE 0.9% 50 ML IVPB PRN ×2 (12:51→23:35)
[2018-11-23] MEDS ORDERED: HYDROmorphone 1 MG/ML 1 ML SYRINGE IVP STA (15:10)
--- NOTE | 2018-11-23 15:14 | P.PN ---
Subjective Progress Note Date: 11/23/18 Principal diagnosis: idiopathic gastroparesis 38-year-old female with PMH of gastroparesis which is idiopathic in nature, migraines, hypothyroidism and presents the ED for nausea and vomiting. Patient has had multiple admissions for intractable nausea and vomiting related to her idiopathic gastroparesis. Patient reports that symptoms have been progressively getting worse over the past week. Patient denies any blood in her vomitus. Of note, patient follows [facility] gastroenterology for management of her idiopathic gastroparesis, has appointment next . Patient currently denies any headache, lower extremity edema, and fever, chills, cough, chest pain, shortness of breath, changes in urination or bowel habits. She denies any dizziness, numbness/weakness/tingling of the extremities. Objective - Vital Signs Vital signs: Vital Signs Temp 98.5 F 11/23/18 07:00 Pulse 53 L 11/23/18 08:45 Resp 15 11/23/18 08:45 BP 109/68 11/23/18 07:00 Pulse Ox 99 11/23/18 07:00 Intake & Output 11/22/18 11/23/18 11/23/18 18:59 06:59 18:59 Intake Total 0 230 360 Balance 0 230 360 Weight 76.067 kg Intake: Oral 0 240 Tube Feeding 230 120 - Exam General: [non toxic], [no distress], [appears at stated age] Derm: [warm], [dry] Head: [atraumatic], [normocephalic], [symmetric] Eyes: [EOMI], [no lid lag], [anicteric sclera] Mouth: [no lip lesion], [mucus membranes moist] Cardiovascular: [S1S2 reg], [no murmur], [positive posterior tibial pulse bilateral], Lungs: [CTA bilateral], [no rhonchi, no rales] , [no accessory muscle use] Abdominal: [soft], [ nontender to palpation], [no guarding], [no appreciable organomegaly], [J-tube site left quadrant, site clean dry and intact, tube feeds running at 30 mL/h] Ext: [no gross muscle atrophy], [no edema], [no contractures] Neuro: [ CN II-XI grossly intact], [no focal neuro deficits] Psych: [Alert], [oriented], [appropriate affect] - Labs CBC & Chem 7: 11/22/18 01:27 11/22/18 01:27 Assessment and Plan Assessment: Assessment and Plan Intractable nausea and vomiting Idiopathic gastroparesis History multiple PE Hypothyroidism Likely secondary to gastroparesis. Plans: Continue Promethazine IV and Ativan every 6 hours as needed for nausea and vomiting. Pain management with Dilaudid, oxycodone. Continue normal saline at 125 mL per hour. Continue Protonix IV. Continue Propulsid. Elevate head of bed. Continue scopolamine patch. Start J tube feeds when symptomatically better. Follow GI recommendations. Management as above. Continue Eliquis 5 mg by mouth twice a day. Continue Synthroid. Patient is pending clinical improvement. Likely DC in 2-3 days. DVT prophylaxis: [Eliquis] Discussed with: [Patient] Anticipated discharge: [1-2 days] Anticipated discharge place: [Home] A total of [30] minutes was spent on the care of this complex patient more than 50% of the time was spent in counseling and care coordination.
[2018-11-23] MEDS: diphenhydrAMINE 50 MG/ML 1 ML VIAL IVP PRN (19:50)
[2018-11-23] MEDS: LORazepam 2 MG/ML INJ IV PRN (19:50)
[2018-11-23] MEDS: SODIUM CHLORIDE 0.9% 1,000 ML IV SCH ×2 (19:54→23:39)
[2018-11-23] MEDS: HYDROmorphone 1 MG/ML 1 ML SYRINGE IVP PRN ×2 (19:56→23:35)
--- NOTE | 2018-11-23 23:41 | P.PN ---
Subjective Progress Note Date: 11/23/18 Principal diagnosis: Gastroparesis Patient is seen lying in bed. Still reporting diffuse abdominal pain. Does report a few episodes of vomiting this morning. Objective - Vital Signs Vital signs: Vital Signs Temp 99.0 F 11/23/18 19:39 Pulse 72 11/23/18 19:39 Resp 16 11/23/18 19:39 BP 130/83 11/23/18 19:39 Pulse Ox 99 11/23/18 19:39 Intake & Output 11/23/18 11/23/18 11/24/18 06:59 18:59 06:59 Intake Total 230 960 80 Balance 230 960 80 Intake: Oral 600 Tube Feeding 230 360 80 - Exam On physical examination, patient appears comfortable in no apparent distress. HEAD: Normocephalic, atraumatic. EYES: No scleral icterus. No conjunctival injection. MOUTH: No lesions, tongue midline. NECK: Trachea midline, no gross abnormalities. CHEST: Clear to auscultation with no wheezing or rhonchi appreciated. HEART: Regular rate and rhythm. ABDOMEN: Soft, J-tube cleaned/Drive/intact. Bowel sounds are positive. No organomegaly. No guarding or rigidity. EXTREMITIES: No pedal edema. SKIN: No rashes, no jaundice. NEUROLOGIC: Alert and oriented x3. No focal deficits. - Labs CBC & Chem 7: 11/22/18 01:27 11/22/18 01:27 Assessment and Plan (1) Abdominal pain Current Visit: Yes Status: Acute Code(s): R10.9 - UNSPECIFIED ABDOMINAL PAIN SNOMED Code(s): 52680926 (2) Gastroparesis Current Visit: Yes Status: Acute Code(s): K31.84 - GASTROPARESIS SNOMED Code(s): 951324592 (3) Intractable nausea and vomiting Current Visit: Yes Status: Acute Code(s): R11.2 - NAUSEA WITH VOMITING, UNSPECIFIED SNOMED Code(s): 355504689 Plan: Plan: Supportive care Tube feeds as tolerated Continue antiemetics with Zofran and Phenergan [id number] Continue scopolamine IV Benadryl. Continue fluid hydration No plan for endoscopic evaluation at this time Thank you for allowing us to participate in the care of this patient we will continue to follow
[2018-11-24] MEDS: HYDROmorphone 1 MG/ML 1 ML SYRINGE IVP PRN ×6 (02:47→20:39)
[2018-11-24] MEDS: diphenhydrAMINE 50 MG/ML 1 ML VIAL IVP PRN ×2 (02:53→09:28)
[2018-11-24] MEDS: LORazepam 2 MG/ML INJ IV PRN ×4 (02:53→23:09)
[2018-11-24] MEDS: PRUCALOPRIDE SUCCINATE 1 MG PO SCH ×2 (07:32→20:38)
[2018-11-24] MEDS: APIXABAN 5 MG TAB PO SCH ×2 (07:32→20:39)
[2018-11-24] MEDS: MONTELUKAST 10 MG TAB PO SCH (07:32)
[2018-11-24] MEDS: THYROID, PORK 30 MG TAB PO SCH (07:33)
[2018-11-24] MEDS: TOPIRAMATE 25 MG TAB PO SCH ×2 (07:33→20:39)
[2018-11-24] MEDS: SODIUM CHLORIDE 0.9% 1,000 ML IV SCH ×3 (07:34→20:40)
[2018-11-24] MEDS: NON-FORMULARY DRUG (Lansoprazole [Prevacid] 30 MG) PEJ/J-Tube SCH (07:34)
[2018-11-24] MEDS: PROMETHAZINE INJ 25 MG in SODIUM CHLORIDE 0.9% 50 ML IVPB PRN ×2 (09:29→17:33)
[2018-11-24] MEDS: PREVACID 30 MG PO SCH ×2 (13:13→20:38)
[2018-11-24] MEDS ORDERED: diphenhydrAMINE 25 MG CAP PO PRN (14:42)
--- NOTE | 2018-11-24 15:26 | P.PN ---
Subjective Progress Note Date: 11/24/18 Principal diagnosis: Gastroparesis Patient is seen lying in bed. Still reporting abdominal pain and nausea but overall feeling better today. Objective - Vital Signs Vital signs: Vital Signs Temp 98.8 F 11/24/18 15:00 Pulse 64 11/24/18 15:00 Resp 15 11/24/18 15:00 BP 116/71 11/24/18 15:00 Pulse Ox 99 11/24/18 15:00 Intake & Output 11/23/18 11/24/18 11/24/18 18:59 06:59 18:59 Intake Total 960 320 0 Output Total 20 Balance 960 320 -20 Weight 76.067 kg Intake: Oral 600 0 Tube Feeding 360 320 Output: Emesis 20 Other: Voiding Method Toilet # Voids 2 - Exam On physical examination, patient appears comfortable in no apparent distress. HEAD: Normocephalic, atraumatic. EYES: No scleral icterus. No conjunctival injection. MOUTH: No lesions, tongue midline. NECK: Trachea midline, no gross abnormalities. CHEST: Clear to auscultation with no wheezing or rhonchi appreciated. HEART: Regular rate and rhythm. ABDOMEN: Soft, J-tube cleaned/Drive/intact. Bowel sounds are positive. No orga nomegaly. No guarding or rigidity. EXTREMITIES: No pedal edema. SKIN: No rashes, no jaundice. NEUROLOGIC: Alert and oriented x3. No focal deficits. - Labs CBC & Chem 7: 11/22/18 01:27 11/22/18 01:27 Assessment and Plan (1) Abdominal pain Current Visit: Yes Status: Acute Code(s): R10.9 - UNSPECIFIED ABDOMINAL PAIN SNOMED Code(s): 80859317 (2) Gastroparesis Current Visit: Yes Status: Acute Code(s): K31.84 - GASTROPARESIS SNOMED Code(s): 461129537 (3) Intractable nausea and vomiting Current Visit: Yes Status: Acute Code(s): R11.2 - NAUSEA WITH VOMITING, UNSPECIFIED SNOMED Code(s): 258300372 Plan: Plan: Supportive care Tube feeds as tolerated Continue antiemetics with Zofran and Phenergan [id number] Continue scopolamine IV Benadryl. Continue fluid hydration No plan for endoscopic evaluation at this time Thank you for allowing us to participate in the care of this patient we will continue to follow
[2018-11-24] MEDS: diphenhydrAMINE 50 MG/ML 1 ML VIAL IVP SCH ×2 (17:33→23:09)
--- NOTE | 2018-11-24 18:21 | P.PN ---
Subjective Progress Note Date: 11/24/18 (delayed charting patient seen at 1200) Principal diagnosis: Patient is 38 show female with a past medical history of severe idiopathic gastroparesis following at [facility] and [facility], chronic tube feeding with J-tube, pulmonary embolism in 2018, h ypothyroidism, anemia, and GERD who presented to the emergency department with complaints of abdominal pain and intractable nausea and vomiting. On arrival to the ER her vital signs within normal limits. Laboratory analysis was essentially unremarkable. KUB showed no acute process. She was started on IV narcotics, IV antiemetics, and IV fluids. He came to light that she had her J- tube placed on the morning prior to admission. She is also been following with the [facility] which showed normal gastric emptying study most recently, and there are concerns that she has small bowel dysmotility versus gastroparesis. GI was consulted and evaluated the patient. Medications were optimized to include Benadryl, Dilaudid, Ativan, oxycodone, Phenergan, scopolamine, and Topamax. Despite multiple high-dose narcotic medications with sedative medications patient remained awake alert and actively vomiting. She was tolerating tube feeds and had one episode of vomiting overnight on 11/23. Patient seen and examined at bedside. She complains of continued abdominal pain, and nausea, last vomiting was overnight. and multiple children present at bedside. Objective - Vital Signs Vital signs: Vital Signs Temp 98.8 F 11/24/18 15:00 Pulse 64 11/24/18 15:00 Resp 15 11/24/18 15:00 BP 116/71 11/24/18 15:00 Pulse Ox 99 11/24/18 15:00 Intake & Output 11/23/18 11/24/18 11/24/18 18:59 06:59 18:59 Intake Total 960 320 0 Output Total 20 Balance 960 320 -20 Weight 76.067 kg Intake: Oral 600 0 Tube Feeding 360 320 Output: Emesis 20 Other: Voiding Method Toilet # Voids 2 - Exam General: non toxic, no distress, appears at stated age, appears comfortable talking with her and multiple children at bedside Derm: warm, dry Head: atraumatic, normocephalic, symmetric Eyes: EOMI, no lid lag, anicteric sclera Mouth: no lip lesion, mucus membranes moist Cardiovascular: S1S2 reg, no murmur, positive posterior tibial pulse bilateral, Lungs: CTA bilateral, no rhonchi, no rales , no accessory muscle use Abdominal: soft, no complaints of pain on palpation of abdomen when I am speaking with patient during exam, no guarding, no appreciable organomegaly Ext: no gross muscle atrophy, no edema, no contractures Neuro: CN II-XI grossly intact, no focal neuro deficits Psych: Alert, oriented, appropriate affect - Labs CBC & Chem 7: 11/22/18 01:27 11/22/18 01:27 Assessment and Plan Assessment: Gastroparesis with flair, intractable n/v - d/w Dr. Saxena who wishes to keep patient on current regiment as she is havi ng improvement - Tolerating J-tube feeds Hx of pulmonary embolism - eliquis Hypothyroidism - synthroid DVT prophylaxis: eliquis Discussed with: patient, , GI Anticipated discharge: 1-[address]: home A total of 25 minutes was spent on the care of this complex patient more than 50% of the time was spent in counseling and care coordination.
[2018-11-25] MEDS: HYDROmorphone 1 MG/ML 1 ML SYRINGE IVP PRN ×6 (00:24→21:01)
[2018-11-25] MEDS: PROMETHAZINE INJ 25 MG in SODIUM CHLORIDE 0.9% 50 ML IVPB PRN ×3 (03:20→16:43)
[2018-11-25] MEDS: LORazepam 2 MG/ML INJ IV PRN ×3 (05:16→18:33)
[2018-11-25] MEDS: diphenhydrAMINE 50 MG/ML 1 ML VIAL IVP SCH ×2 (05:17→11:28)
[2018-11-25] MEDS: SODIUM CHLORIDE 0.9% 1,000 ML IV SCH ×3 (05:19→21:02)
[2018-11-25] MEDS: SCOPOLAMINE 1.5MG/72HR PATCH TRANSDERM SCH (09:13)
[2018-11-25] MEDS: TOPIRAMATE 25 MG TAB PO SCH ×2 (09:14→21:01)
[2018-11-25] MEDS: THYROID, PORK 30 MG TAB PO SCH (09:14)
[2018-11-25] MEDS: APIXABAN 5 MG TAB PO SCH ×2 (09:15→21:01)
[2018-11-25] MEDS: PREVACID 30 MG PO SCH ×2 (09:16→21:02)
[2018-11-25] MEDS: PRUCALOPRIDE SUCCINATE 1 MG PO SCH ×2 (09:17→21:02)
[2018-11-25] MEDS: MONTELUKAST 10 MG TAB PO SCH (09:17)
[2018-11-25] MEDS ORDERED: PROMETHAZINE INJ 12.5 MG in SODIUM CHLORIDE 0.9% 50 ML IVPB PRN (11:09)
--- NOTE | 2018-11-25 11:10 | P.PN ---
Subjective Progress Note Date: 11/25/18 Principal diagnosis: Intractable vomiting Patient is 38 show female with a past medical history of severe idiopathic gastroparesis following at [facility] and [facility], chronic tube feeding with J-tube, pulmonary embolism in 2018, hypothyroidism, anemia, and GERD who presented to the emergency department with complaints of abdominal pain and intractable nausea and vomiting. On arrival to the ER her vital signs within normal limits. Laboratory analysis was essentially unremarkable. KUB showed no acute process. She was started on IV narcotics, IV antiemetics, and IV fluids. He came to light that she had her J- tube placed on the morning prior to admission. She is also been following with the [facility] which showed normal gastric emptying study most recently, and there are concerns that she has small bowel dysmotility versus gastr oparesis. GI was consulted and evaluated the patient. Medications were optimized to include Benadryl, Dilaudid, Ativan, oxycodone, Phenergan, scopolamine, and Topamax. Despite multiple high-dose narcotic medications with sedative medications patient remained awake alert and actively vomiting. She was tolerating tube feeds and had one episode of vomiting overnight on 11/23. She reports vomiting again on the moring of 11/25/18. I discussed her pattern of admissions. She has had recurrent admission since August of 2018. She states before this she was typically hospitalized at [facility] as she had a [facility] line for TPN and had issues with infections. This was stopped in August and she started to come here again. She states that she has an appointment with [facility] later next week. They are apparently looking at gastrectomy with bowel rehad, repeat gastric pacemaker, or other options. She states that they have told her to have her local hospitalizations taken care over closer to home. Patient seen and examined at bedside. Appears upset and tearful. Chronic she is missing her child's soccer again. He continues to have abdominal pain and vomiting. Denies any chest pain or shortness of breath. Does not feel though she could manage at home today if she stated yesterday was good she had recurrent vomiting today. Objective - Vital Signs Vital signs: Vital Signs Temp 98.1 F 11/25/18 07:00 Pulse 83 11/25/18 07:00 Resp 16 11/25/18 07:00 BP 120/77 11/25/18 07:00 Pulse Ox 99 11/25/18 07:00 Intake & Output 11/24/18 11/25/18 11/25/18 18:59 06:59 18:59 Intake Total 0 320 Output Total 20 Balance -20 320 Weight 76.067 kg 74.9 kg Intake: Oral 0 Tube Feeding 320 Output: Emesis 20 Other: Voiding Method Toilet # Voids 2 - Exam General: non toxic, no distress, appears at stated age, appears comfortable talking with her and multiple children at bedside Derm: warm, dry Head: atraumatic, normocephalic, symmetric Eyes: EOMI, no lid lag, anicteric sclera Mouth: no lip lesion, mucus membranes moist Cardiovascular: S1S2 reg, no murmur, positive posterior tibial pulse bilateral, Lungs: CTA bilateral, no rhonchi, no rales , no accessory muscle use Abdominal: soft, + TTP no guarding, no appreciable organomegaly Ext: no gross muscle atrophy, no edema, no contractures Neuro: CN II-XI grossly intact, no focal neuro deficits Psych: Alert, oriented, appropriate affect - Labs CBC & Chem 7: 11/22/18 01:27 11/22/18 01:27 Assessment and Plan Assessment: Gastroparesis with flair, small bowel dysmotility, intractable n/v - patient not willing to adjust regiment at this time, report continued nausea a nd vomiting this AM. Yesterday I did add parameters to how closed sedative medications can be given - high risk for readmission. Prognosis guarded. Will decrease phenergan dose. - Tolerating J-tube feeds Hx of pulmonary embolism - eliquis Hypothyroidism - synthroid DVT prophylaxis: eliqujimmie Discussed with: patient, nursing Anticipated discharge: 1-[address]: home A total of 25 minutes was spent on the care of this complex patient more than 50% of the time was spent in counseling and care coordination.
[2018-11-25 12:37] LABS: HCT 43.7 % (34.0-46.0); MCH 28.6 pg (25.0-35.0); MCHC 34.3 g/dL (31.0-37.0); MCV 83.4 fL (80.0-100.0); Mean Platelet Volume 6.6; Platelet Count 254 k/uL (150-450); RBC 5.24 m/uL (3.80-5.40); RDW 13.3 % (11.5-15.5); WBC 9.7 k/uL (3.8-10.6)
[2018-11-25 12:50] LABS: African American GFR (CKD) >90 (>60 ml/min/1.73 sqM); Anion Gap 10 mmol/L; Blood Urea Nitrogen 12 mg/dL (7-17); Calcium 9.8 mg/dL (8.4-10.2); Carbon Dioxide 19 mmol/L (22-30); Chloride 113 mmol/L (98-107); Glucose 96 mg/dL (74-99); Phosphorus 3.8 mg/dL (2.5-4.5); Sodium 142 mmol/L (137-145)
[2018-11-25] MEDS: diphenhydrAMINE 50 MG/ML 1 ML VIAL IVP PRN (18:32)
[2018-11-26] MEDS: ONDANSETRON 4 MG/2 ML VIAL IVP PRN (00:02)
[2018-11-26] MEDS: HYDROmorphone 1 MG/ML 1 ML SYRINGE IVP PRN ×3 (00:07→07:15)
[2018-11-26] MEDS: LORazepam 2 MG/ML INJ IV PRN ×4 (01:21→20:28)
[2018-11-26] MEDS: diphenhydrAMINE 50 MG/ML 1 ML VIAL IVP PRN ×4 (01:21→20:28)
[2018-11-26] MEDS: PROMETHAZINE INJ 25 MG in SODIUM CHLORIDE 0.9% 50 ML IVPB PRN ×3 (03:35→17:39)
[2018-11-26] MEDS: SODIUM CHLORIDE 0.9% 1,000 ML IV SCH ×3 (05:38→21:00)
[2018-11-26] MEDS: APIXABAN 5 MG TAB PO SCH ×2 (08:33→20:29)
[2018-11-26] MEDS: PREVACID 30 MG PO SCH ×2 (08:34→20:32)
[2018-11-26] MEDS: MONTELUKAST 10 MG TAB PO SCH (08:34)
[2018-11-26] MEDS: PRUCALOPRIDE SUCCINATE 1 MG PO SCH ×2 (08:34→20:29)
[2018-11-26] MEDS: THYROID, PORK 30 MG TAB PO SCH (08:36)
[2018-11-26] MEDS: TOPIRAMATE 25 MG TAB PO SCH ×2 (08:36→20:29)
--- NOTE | 2018-11-26 11:19 | P.PN ---
Subjective Progress Note Date: 11/26/18 Principal diagnosis: Patient is 38 show female with a past medical history of severe idiopathic gastroparesis following at [facility] and [facility], chronic tube feeding with J-tube, pulmonary embolism in 2018, hypothyroidism, anemia, and GERD who presented to the emergency department with complaints of abdominal pain and intractable nausea and vomiting. On arrival to the ER her vital signs within normal limits. Laboratory analysis was essential ly unremarkable. KUB showed no acute process. She was started on IV narcotics, IV antiemetics, and IV fluids. He came to light that she had her J-tube placed on the morning prior to admission. She is also been following with the [facility] which showed normal gastric emptying study most recently, and there are concerns that she has small bowel dysmotility versus gastroparesis. GI was consulted and evaluated the patient. Medications were optimized to include Benadryl, Dilaudid, Ativan, oxycodone, Phenergan, scopolamine, and Topamax. Despite multiple high-dose narcotic medications with sedative medications patient remained awake alert and actively vomiting. She was tolerating tube feeds and had one episode of vomiting overnight on 11/23. She reports vomiting again on the moring of 11/25/18 patient seen and examined at bedside was resting comfortably before I woke her up. Patient informed that was discontinue her Dilaudid and resuming her oxycodone. Patient was initially okay with that but per nursing the patient has been tearful and crying about abdominal pain. Patient reports also nausea and vomiting and discussing the patient's chronic intractable nausea and vomiting she reports this occurs at least 3 out of the 7 days of the week and is chronic Objective - Vital Signs Vital signs: Vital Signs Temp 98.4 F 11/26/18 07:00 Pulse 67 11/26/18 07:00 Resp 16 11/26/18 08:00 BP 116/76 11/26/18 07:00 Pulse Ox 96 11/26/18 07:00 Intake & Output 11/25/18 11/26/18 11/26/18 18:59 06:59 18:59 Intake Total 480 160 Balance 480 160 Weight 74.5 kg Intake: Tube Feeding 480 160 Other: Voiding Method Toilet Toilet Toilet # Voids 2 - Exam Constitutional: No acute distress, conversant, pleasant Eyes: Anicteric sclerae, moist conjunctiva, no lid-lag, PERRLA ENMT: NC/AT,Oropharynx clear, no erythema, exudates Neck:Supple, FROM, no masses, or JVD, No carotid bruits; No thyromegaly Lungs: Clear to auscultation, Clear to percussion, Normal respiratory effort, no accessory muscle use Cardiovascular: Heart regular in rate and rhythm, No murmurs, gallops, or rubs no peripheral edema Abdominal: Soft Nontender, nom distended, no guarding, no rebound or rigidity, Normoactive bowel sounds No hepatomegaly, No splenomegaly, No palpable mass No abdominal wall hernia noted Skin: Normal temperature, tone, texture, turgor, No induration No subcutaneous nodules, No rash, lesions, No ulcers Extremities:No digital cyanosis No clubbing, Pedal pulses intact and symmetrical Radial pulses intact and symmetrical Normal gait and station, No calf tenderness Psychiatric: Alert and oriented to person, place and time, Appropriate affect Intact judgement Neuro: Muscles Strength 5/5 in all 4 extremities, Sensation to light touch grossly present throughout, Cranial nerves II-XII grossly intact. No focal sensory deficits - Labs CBC & Chem 7: 11/25/18 12:12 11/27/18 07:18 Labs: Abnormal Lab Results - Last 24 Hours (Table) 11/25/18 Range/Units 12:12 Chloride 113 H (98-107) mmol/L Carbon Dioxide 19 L (22-30) mmol/L Assessment and Plan Plan: Gastroparesis with flair, small bowel dysmotility, intractable n/v - patient not willing to adjust regiment at this time, report continued nausea and vomiting this AM. - high risk for readmission. Prognosis guarded. Will decrease phenergan dose. 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 Carver Abdominal pain * The patient resumed on her home regimen of oxycodone for pain. * Patient unhappy with decision to discontinue her IV Dilaudid which she's been on for the last 3 days Hx of pulmonary embolism - eliquis Hypothyroidism - synthroid DVT prophylaxis: eliquis Discussed with: patient, nursing Anticipated discharge: 1-[address]: home A total of 25 minutes was spent on the care of this complex patient more than 50% of the time was spent in counseling and care coordination.
[2018-11-26] MEDS: oxyCODONE-APAP 10-325MG 1 EACH TAB PO PRN (11:25)
--- NOTE | 2018-11-26 20:14 | XR ---
EXAMINATION TYPE: XR abdomen 1V DATE OF EXAM: 11/26/2018 COMPARISON: 11/21/2018 HISTORY: Check tube placement TECHNIQUE: Single view FINDINGS: There is jejunostomy tube over the left mid abdomen. There is no contrast for evaluating po sition. There is no sign of free air. There is no sign of a bowel obstruction. There is IUD noted. Is no evidence of abdominal mass. IMPRESSION: Tube appears in same position as last exam. Nonacute abdomen.
[2018-11-26] MEDS ORDERED: HYDROmorphone 0.5 MG/0.5 ML SYRINGE IVP STA (21:25)
--- NOTE | 2018-11-26 22:28 | XR ---
EXAM: XR Abdomen, 2 Views CLINICAL HISTORY: ITS.REASON XR Reason: J tube placement TECHNIQUE: Frontal view of the abdomen/pelvis with upright view of the abdomen. COMPARISON: 11/26/18 early time IMPRESSION: Tube terminates and opacifies with contrast the left abdomen likely within the jejunum.
[2018-11-27] MEDS: diphenhydrAMINE 50 MG/ML 1 ML VIAL IVP PRN ×3 (02:26→21:02)
[2018-11-27] MEDS: LORazepam 2 MG/ML INJ IV PRN ×3 (02:27→21:02)
[2018-11-27] MEDS: oxyCODONE-APAP 10-325MG 1 EACH TAB PO PRN ×2 (05:14→12:15)
[2018-11-27] MEDS: SODIUM CHLORIDE 0.9% 1,000 ML IV SCH ×3 (05:15→21:55)
[2018-11-27] MEDS: MONTELUKAST 10 MG TAB PO SCH (09:10)
[2018-11-27] MEDS: PREVACID 30 MG PO SCH ×2 (09:10→21:03)
[2018-11-27] MEDS: APIXABAN 5 MG TAB PO SCH ×2 (09:10→21:03)
[2018-11-27] MEDS: PRUCALOPRIDE SUCCINATE 1 MG PO SCH ×2 (09:11→21:03)
[2018-11-27] MEDS: THYROID, PORK 30 MG TAB PO SCH (09:12)
[2018-11-27] MEDS: TOPIRAMATE 25 MG TAB PO SCH ×2 (09:13→21:03)
[2018-11-27 09:18] LABS: ALT 23 U/L (9-52); AST 15 U/L (14-36); African American GFR (CKD) >90 (>60 ml/min/1.73 sqM); Albumin 3.8 g/dL (3.5-5.0); Alkaline Phosphatase 79 U/L (38-126); Anion Gap 12 mmol/L; Blood Urea Nitrogen 13 mg/dL (7-17); Calcium 9.7 mg/dL (8.4-10.2); Carbon Dioxide 18 mmol/L (22-30); Chloride 113 mmol/L (98-107); Glucose 81 mg/dL (74-99); Potassium 4.1 mmol/L (3.5-5.1); Sodium 143 mmol/L (137-145); Total Bilirubin 0.4 mg/dL (0.2-1.3); Total Protein 6.6 g/dL (6.3-8.2)
[2018-11-27] MEDS: ONDANSETRON 4 MG/2 ML VIAL IVP PRN ×2 (11:21→16:50)
[2018-11-27] MEDS ORDERED: HYDROmorphone 1 MG/ML 1 ML SYRINGE IVP STA (12:29)
--- NOTE | 2018-11-27 12:41 | P.DS ---
Providers Date of admission: 11/25/18 09:02 Expected date of discharge: 11/27/18 Attending physician: Al Alanis MD Consults: 11/22/18 05:04 Consult Physician Routine Consulting Provider: Sly Saxena Consult Reason/Comments: Intractable abdominal pain. Intractable nausea and vomiting Do you want consulting provider notified?: Yes 11/22/18 10:33 Consult Physician Routine Consulting Provider: Michelle Canales Consult Reason/Comments: gastroperesis Do you want consulting provider notified?: Yes Primary care physician: Karthikeyan Pedro - Discharge Diagnosis(es) (1) Chronic abdominal pain Current Visit: Yes Status: Acute (2) Gastroparesis Current Visit: Yes Status: Acute (3) Intractable nausea and vomiting Current Visit: Yes Status: Acute (4) Jejunostomy tube fell out Current Visit: Yes Status: Acute Hospital Course: Patient is 38 show female with a past medical history of severe idiopathic gastroparesis following at [facility] and [facility], chronic tube feeding with J-tube, pulmonary embolism in 2018, hypothyroidism, anemia, and GERD who presented to the emergency department with complaints of abdominal pain and intractable nausea and vomiting. On arrival to the ER her vital signs within normal limits. Laboratory analysis was essentia lly unremarkable. KUB showed no acute process. She was started on IV narcotics, IV antiemetics, and IV fluids. He came to light that she had her J- tube placed on the morning prior to admission. She is also been following with the [facility] which showed normal gastric emptying study most recently, and there are concerns that she has small bowel dysmotility versus gastroparesis. GI was consulted and evaluated the patient. Medications were optimized to include Benadryl, Dilaudid, Ativan, oxycodone, Phenergan, scopolamine, and Topamax. Despite multiple high-dose narcotic medications with sedative medications patient remained awake alert and actively vomiting. She was tolerating tube feeds and a few episodes of nausea and vomiting overnight which appears to be chronic for her. After receiving 3 days of IV Dilaudid the patient's narcotics medications were discontinued, the patient had a malfunctioning J-tube that fell out and was reinserted by the patient. Apparently she was instructed by her surgeon not to continue any tube feeds at this time. I contacted the patient's surgeon Dr. Brownlee at [facility] recommended the patient be transferred there, contacted the patient's primary care Dr. Pedro who is accepting the transfer. Also contacted the patient's automobile insurance claim examiner at [facility] Dr. Carver reported that the patient had a endoscopic pyloroplasty and repeat gastric emptying study 10/09/18 was normal. The patient was transferred in stable condition this transfer process took approximately 30 minutes Focused exaam: Patient refused. Patient Condition at Discharge: Fair Plan - Discharge Summary Discharge Rx Participant: No New Discharge Prescriptions: No Action Lansoprazole [Prevacid] 30 mg PO BID Montelukast Chew [Singulair] 10 mg PO DAILY Topiramate [Trokendi Xr] 50 mg PO DAILY Scopolamine 1.5MG/72Hr Patch [TransDerm Scop] 1 patch TRANSDERM Q72H #10 patch Apixaban [Eliquis] 5 mg PO BID Thyroid,Pork [Cades Thyroid] 60 mg PO Q48H Ondansetron Odt [Zofran ODT] 8 mg PO Q8HR PRN PRN Reason: Nausea And Vomiting Thyroid,Pork [Cades Thyroid] 90 mg PO Q48H Oxycodone 5mg/5ml 10 mg PO Q6H PRN PRN Reason: Pain Promethazine HCl [Phenergan Syrup] 12.5 mg PO Q6HR PRN PRN Reason: Nausea And Vomiting Prucalopride Succinate [Motegrity] 1 mg PO BID SUMAtriptan SUCCINATE [Imitrex] 100 mg PO DAILY PRN PRN Reason: Migraine Headache Mupirocin Calcium [Bactroban 2% Cream] 1 applic TOPICAL TID 7 Days gm Discharge Medication List Lansoprazole [Prevacid] 30 mg PO BID 02/02/18 [History] Montelukast Chew [Singulair] 10 mg PO DAILY 02/02/18 [History] Topiramate [Trokendi Xr] 50 mg PO DAILY 07/18/18 [History] Scopolamine 1.5MG/72Hr Patch [TransDerm Scop] 1 patch TRANSDERM Q72H #10 patch 07/31/18 [Rx] Apixaban [Eliquis] 5 mg PO BID 08/21/18 [History] Ondansetron Odt [Zofran ODT] 8 mg PO Q8HR PRN 10/06/18 [History] Oxycodone 5mg/5ml 10 mg PO Q6H PRN 10/06/18 [History] Promethazine HCl [Phenergan Syrup] 12.5 mg PO Q6HR PRN 10/06/18 [History] Thyroid,Pork [Cades Thyroid] 60 mg PO Q48H 10/06/18 [History] Thyroid,Pork [Cades Thyroid] 90 mg PO Q48H 10/06/18 [History] Mupirocin Calcium [Bactroban 2% Cream] 1 applic TOPICAL TID 7 Days gm 10/19/18 [Rx] Prucalopride Succinate [Motegrity] 1 mg PO BID 10/19/18 [History] SUMAtriptan SUCCINATE [Imitrex] 100 mg PO DAILY PRN 10/19/18 [History] Follow up Appointment(s)/Referral(s): Karthikeyan Pedro MD [Primary Care Provider] - 1-2 days
[2018-11-27] MEDS ORDERED: diphenhydrAMINE 25 MG CAP PO PRN (12:45)
[2018-11-27] MEDS: HYDROmorphone 1 MG/ML 1 ML SYRINGE IVP PRN (17:43)
[2018-11-27] MEDS: PROMETHAZINE INJ 25 MG in SODIUM CHLORIDE 0.9% 50 ML IVPB PRN (19:23)
[2018-11-28] MEDS: HYDROmorphone 1 MG/ML 1 ML SYRINGE IVP PRN ×5 (00:58→21:22)
[2018-11-28] MEDS: ONDANSETRON 4 MG/2 ML VIAL IVP PRN ×2 (01:47→10:49)
[2018-11-28] MEDS: LORazepam 2 MG/ML INJ IV PRN ×3 (03:17→19:43)
[2018-11-28] MEDS: diphenhydrAMINE 50 MG/ML 1 ML VIAL IVP PRN ×3 (03:17→19:43)
[2018-11-28] MEDS: SODIUM CHLORIDE 0.9% 1,000 ML IV SCH ×3 (04:42→19:44)
[2018-11-28] MEDS: oxyCODONE-APAP 10-325MG 1 EACH TAB PO PRN (06:04)
[2018-11-28] MEDS: MONTELUKAST 10 MG TAB PO SCH (09:21)
[2018-11-28] MEDS: PREVACID 30 MG PO SCH ×2 (09:21→19:44)
[2018-11-28] MEDS: APIXABAN 5 MG TAB PO SCH ×2 (09:21→19:44)
[2018-11-28] MEDS: PRUCALOPRIDE SUCCINATE 1 MG PO SCH ×2 (09:22→19:44)
[2018-11-28] MEDS: TOPIRAMATE 25 MG TAB PO SCH ×2 (09:24→19:44)
[2018-11-28] MEDS: THYROID, PORK 30 MG TAB PO SCH (09:24)
[2018-11-28] MEDS: SCOPOLAMINE 1.5MG/72HR PATCH TRANSDERM SCH (09:25)
--- NOTE | 2018-11-28 18:06 | PN ---
PROGRESS NOTE CHIEF COMPLAINT: Gastroparesis with intractable abdominal pain and vomiting. HISTORY OF PRESENT ILLNESS: This lady is still having intractable pain and she is still vomiting. A PEG tube has been placed and she started to use it again. She has had no fever or chills. She has had no cough or shortness of breath. PHYSICAL EXAMINATION: Her color is good. Chest is clear. Cardiac exam is normal. Abdomen is soft. IMPRESSION: 1. Gastroparesis with persistent nausea and vomiting. 2. Intractable pain. PLAN: 1. Increase analgesic frequency. 2. She will start using J-tube feedings again. MMODL / IJN: [id number] /
[2018-11-29] MEDS: PROMETHAZINE INJ 25 MG in SODIUM CHLORIDE 0.9% 50 ML IVPB PRN ×3 (00:19→18:03)
[2018-11-29] MEDS: HYDROmorphone 1 MG/ML 1 ML SYRINGE IVP PRN ×6 (00:53→21:24)
[2018-11-29] MEDS: diphenhydrAMINE 50 MG/ML 1 ML VIAL IVP PRN ×4 (02:58→22:23)
[2018-11-29] MEDS: LORazepam 2 MG/ML INJ IV PRN ×4 (02:58→22:23)
[2018-11-29] MEDS ORDERED: HYDROmorphone 1 MG/ML 1 ML SYRINGE ONE (04:00)
[2018-11-29] MEDS: TOPIRAMATE 25 MG TAB PO SCH ×2 (07:28→20:28)
[2018-11-29] MEDS: THYROID, PORK 30 MG TAB PO SCH (07:28)
[2018-11-29] MEDS: MONTELUKAST 10 MG TAB PO SCH (07:28)
[2018-11-29] MEDS: APIXABAN 5 MG TAB PO SCH ×2 (07:28→20:28)
[2018-11-29] MEDS: PRUCALOPRIDE SUCCINATE 1 MG PO SCH ×2 (07:29→20:28)
[2018-11-29] MEDS: PREVACID 30 MG PO SCH ×2 (07:29→20:28)
[2018-11-29] MEDS: SODIUM CHLORIDE 0.9% 1,000 ML IV SCH ×3 (10:46→22:24)
--- NOTE | 2018-11-29 18:04 | PN ---
PROGRESS NOTE CHIEF COMPLAINT: Gastroparesis and intractable abdominal pain and vomiting. HISTORY OF PRESENT ILLNESS: This lady has had a bad night with increasing pain and some episodes of vomiting. She has had no hematemesis. She has had no fever or chills. PHYSICAL EXAMINATION: Chest is clear. Cardiac exam is normal. The abdomen is generally tender without masses. Bowel sounds are present. IMPRESSION: 1. Gastroparesis with intractable abdominal pain. 2. Vomiting. PLAN: Continue with her usual program of analgesics and anti-spasmodics and hope that she improves soon. PEG tube is being used for nutrition. MMODL / IJN: [id number] /
[2018-11-30] MEDS: PROMETHAZINE INJ 25 MG in SODIUM CHLORIDE 0.9% 50 ML IVPB PRN ×4 (01:55→20:38)
[2018-11-30] MEDS: HYDROmorphone 1 MG/ML 1 ML SYRINGE IVP PRN ×7 (01:55→22:33)
[2018-11-30] MEDS: SODIUM CHLORIDE 0.9% 1,000 ML IV SCH ×3 (04:21→21:21)
[2018-11-30] MEDS: diphenhydrAMINE 50 MG/ML 1 ML VIAL IVP PRN ×3 (04:38→18:22)
[2018-11-30] MEDS: LORazepam 2 MG/ML INJ IV PRN ×3 (04:38→18:22)
[2018-11-30] MEDS: APIXABAN 5 MG TAB PO SCH ×2 (07:19→19:34)
[2018-11-30] MEDS: MONTELUKAST 10 MG TAB PO SCH (07:19)
[2018-11-30] MEDS: TOPIRAMATE 25 MG TAB PO SCH ×2 (07:20→19:34)
[2018-11-30] MEDS: PRUCALOPRIDE SUCCINATE 1 MG PO SCH ×2 (07:20→19:34)
[2018-11-30] MEDS: THYROID, PORK 30 MG TAB PO SCH (07:20)
[2018-11-30] MEDS: PREVACID 30 MG PO SCH ×2 (07:20→19:35)
[2018-11-30 15:51] LABS: African American GFR (CKD) >90 (>60 ml/min/1.73 sqM); Anion Gap 12 mmol/L; Blood Urea Nitrogen 13 mg/dL (7-17); Calcium 9.3 mg/dL (8.4-10.2); Carbon Dioxide 19 mmol/L (22-30); Chloride 112 mmol/L (98-107); Glucose 107 mg/dL (74-99); Potassium 4.9 mmol/L (3.5-5.1); Sodium 143 mmol/L (137-145)
[2018-11-30 16:27] LABS: Basophils # (A) 0.1 k/uL (0-0.2); Basophils % (A) 1 %; Eosinophils # (A) 0.3 k/uL (0-0.7); Eosinophils % (A) 4 %; HCT 48.1 % (34.0-46.0); Lymphocytes # (A) 1.9 k/uL (1.0-4.8); Lymphocytes % (A) 26 %; MCH 27.5 pg (25.0-35.0); MCHC 33.2 g/dL (31.0-37.0); MCV 82.8 fL (80.0-100.0); Mean Platelet Volume 7.9; Monocytes # (A) 0.5 k/uL (0-1.0); Monocytes % (A) 7 %; Neutrophils # (A) 4.5 k/uL (1.3-7.7); Neutrophils % (A) 62 %; Platelet Count 279 k/uL (150-450); RBC 5.81 m/uL (3.80-5.40); RDW 14.6 % (11.5-15.5); WBC 7.3 k/uL (3.8-10.6)
--- NOTE | 2018-11-30 22:32 | PN ---
PROGRESS NOTE CHIEF COMPLAINT: Intractable abdominal pain and vomiting. HISTORY OF PRESENT ILLNESS: This lady is not any better. She continues to have episodes of emesis and continues to have fairly constant and severe abdominal pain. PHYSICAL EXAMINATION: Vital signs are normal. She is afebrile. Chest is clear. Cardiac exam is normal. Abdomen is soft, nontender. IMPRESSION: 1. Chronic and intractable abdominal pain. 2. Chronic and intractable vomiting. 3. Gastroparesis. PLAN: Continue with current program. She plans on contacting her narcotics investigator at the [facility] today to see if there are any other recommendations. She has the contact information for my office and, if necessary, her physician may contact me. MMFOSTER / FLAKON: [id number] /
[2018-12-01] MEDS: LORazepam 2 MG/ML INJ IV PRN ×4 (00:42→23:15)
[2018-12-01] MEDS: diphenhydrAMINE 50 MG/ML 1 ML VIAL IVP PRN ×4 (00:43→23:15)
[2018-12-01] MEDS: HYDROmorphone 1 MG/ML 1 ML SYRINGE IVP PRN ×7 (01:39→21:29)
[2018-12-01] MEDS: SODIUM CHLORIDE 0.9% 1,000 ML IV SCH ×3 (04:37→21:32)
[2018-12-01] MEDS: MONTELUKAST 10 MG TAB PO SCH (09:57)
[2018-12-01] MEDS: SCOPOLAMINE 1.5MG/72HR PATCH TRANSDERM SCH (09:57)
[2018-12-01] MEDS: TOPIRAMATE 25 MG TAB PO SCH ×2 (09:57→21:29)
[2018-12-01] MEDS: APIXABAN 5 MG TAB PO SCH ×2 (09:57→21:29)
[2018-12-01] MEDS: PREVACID 30 MG PO SCH ×2 (09:58→21:29)
[2018-12-01] MEDS: PRUCALOPRIDE SUCCINATE 1 MG PO SCH ×2 (09:58→21:29)
[2018-12-01] MEDS: THYROID, PORK 30 MG TAB PO SCH (09:58)
[2018-12-01] MEDS: PROMETHAZINE INJ 25 MG in SODIUM CHLORIDE 0.9% 50 ML IVPB PRN (13:50)
--- NOTE | 2018-12-01 18:28 | PN ---
PROGRESS NOTE DATE OF SERVICE: 12/01/2018 CHIEF COMPLAINT: Intractable abdominal pain with nausea and vomiting due to gastroparesis. HISTORY OF PRESENT ILLNESS: This lady is doing a little bit better. Pain has improved. She has not vomited today. Vital signs are normal. PHYSICAL EXAMINATION: Color is good. Chest is clear. Cardiac exam is normal. Abdomen is soft. Bowel sounds are heard. IMPRESSION: 1. Gastroparesis. 2. Intractable abdominal pain. 3. Intractable nausea and vomiting, improving. PLAN: She is improving and she feels that if she continues to do well, she can probably go home tomorrow. She has an appointment in [place] on Tuesday. MMODL / IJN: [id number] /
[2018-12-02] MEDS: HYDROmorphone 1 MG/ML 1 ML SYRINGE IVP PRN ×4 (00:21→23:05)
[2018-12-02] MEDS: oxyCODONE-APAP 10-325MG 1 EACH TAB PO PRN (05:57)
[2018-12-02] MEDS: SODIUM CHLORIDE 0.9% 1,000 ML IV SCH ×3 (07:18→23:06)
[2018-12-02] MEDS: MONTELUKAST 10 MG TAB PO SCH (08:37)
[2018-12-02] MEDS: APIXABAN 5 MG TAB PO SCH ×2 (08:37→20:16)
[2018-12-02] MEDS: PRUCALOPRIDE SUCCINATE 1 MG PO SCH ×2 (08:37→20:16)
[2018-12-02] MEDS: PREVACID 30 MG PO SCH ×2 (08:37→20:18)
[2018-12-02] MEDS: TOPIRAMATE 25 MG TAB PO SCH ×2 (08:37→20:17)
[2018-12-02] MEDS: THYROID, PORK 30 MG TAB PO SCH (08:38)
[2018-12-02] MEDS ORDERED: NON-FORMULARY DRUG (Thyroid,Pork [Armour Thyroid] 60 MG) PO SCH (15:30)
[2018-12-02] MEDS: diphenhydrAMINE 50 MG/ML 1 ML VIAL IVP PRN (17:40)
[2018-12-02] MEDS: LORazepam 2 MG/ML INJ IV PRN (17:40)
--- NOTE | 2018-12-02 20:12 | PN ---
PROGRESS NOTE DATE OF SERVICE: 12/02/2018 This 38-year-old woman has history of idiopathic gastroparesis, had also feeding jejunostomy tube. The patient is still complaining of nausea today. The patient has been receiving treatment from [facility] and was seen at [facility] also where the patient underwent endoscopic pyloroplasty as well as [facility]. The patient is complaining of nausea and the patient is complaining of some dehydration. IV access is limited. Patient closely monitored. PAST MEDICAL HISTORY: Reviewed. REVIEW OF SYSTEMS: Cardiovascular: As mentioned earlier. GI: As mentioned earlier. : Negative. NERVOUS SYSTEM: As mentioned earlier. CURRENT MEDICATIONS: 1. Eliquis 5 mg p.o. b.i.d. 2. Benadryl 25 mg q.6h p.r.n. 3. Dilaudid 1 mg q.3 p.r.n. 4. Ativan 1 mg q.6h p.r.n. 5. Singulair 10 mg p.o. 6. Narcan 0.2 q.2 p.r.n. 7. Prevacid. 8. Zofran 4 mg q.6h p.r.n. 9. Percocet 1 p.o. q.6h. 10.Promethazine. 11.Scopolamine patch. 12.Imitrex. 13.[place] Thyroid. 14.Topamax. PHYSICAL EXAM: Patient is alert and oriented. Pulse 95, blood pressure 113/70, respiration 16, temperature 98.4, pulse ox 98% on room air. HEENT: Conjunctivae normal. Oral mucosa dry. NECK: No jugular venous distention. No lymph node enlargement. CARDIOVASCULAR: S1, S2. RESPIRATORY: Diminished breath sounds at the bases. A few scattered rhonchi, no crackles. ABDOMEN: Soft. Mild diffuse discomfort on palpation. J-tube present. LEGS: No swelling. NERVOUS SYSTEM: No focal deficits. LABS: At this time shows WBC 7.2, hemoglobin 16, sodium 143, potassium 4.2, CO2 is 19. ASSESSMENT: 1. Acute idiopathic gastroparesis acute exacerbation. 2. Continued nausea and dehydration. 3. Feeding jejunostomy. 4. Intractable abdominal pain and vomiting. 5. History of pulmonary embolism. 6. History of bacteremia and PICC line. 7. History of recurrent pancreatitis. 8. Hypothyroidism. 9. History of headaches and migraines. 10.History of depression. 11.History of gastroesophageal reflux disease. 12.History of Edna-en-Y. 13.History of cholecystectomy. 14.History of deep vein thrombosis. 15.History of gastric ( ) and removal. RECOMMENDATIONS AND DISCUSSION: In this 38-year-old woman who presented with multiple complex medical issues, we will monitor the patient closely continue the current management and symptomatic treatment. Otherwise, at this time I recommend IV access, IV fluids and continue the rest of medications. Closely follow and further recommendations to follow. The patient is on Eliquis, apixaban. Repeat labs will be ordered for tomorrow. Prognosis guarded, discussed with the patient's family and discussed with staff. MMODL / IJN: [id number] /
[2018-12-03] MEDS: LORazepam 2 MG/ML INJ IV PRN ×4 (00:08→18:19)
[2018-12-03] MEDS: diphenhydrAMINE 50 MG/ML 1 ML VIAL IVP PRN ×4 (00:08→18:19)
[2018-12-03] MEDS: HYDROmorphone 1 MG/ML 1 ML SYRINGE IVP PRN ×6 (02:10→20:22)
[2018-12-03 07:05] LABS: Basophils # (A) 0.1 k/uL (0-0.2); Basophils % (A) 1 %; Eosinophils # (A) 0.3 k/uL (0-0.7); Eosinophils % (A) 4 %; HCT 42.8 % (34.0-46.0); HGB 14.2 gm/dL (11.4-16.0); Lymphocytes # (A) 2.9 k/uL (1.0-4.8); Lymphocytes % (A) 35 %; MCH 27.4 pg (25.0-35.0); MCHC 33.2 g/dL (31.0-37.0); MCV 82.5 fL (80.0-100.0); Mean Platelet Volume 6.8; Monocytes # (A) 0.5 k/uL (0-1.0); Monocytes % (A) 6 %; Neutrophils # (A) 4.3 k/uL (1.3-7.7); Neutrophils % (A) 52 %; Platelet Count 323 k/uL (150-450); RBC 5.19 m/uL (3.80-5.40); RDW 14.1 % (11.5-15.5); WBC 8.2 k/uL (3.8-10.6)
[2018-12-03 07:22] LABS: African American GFR (CKD) >90 (>60 ml/min/1.73 sqM); Anion Gap 8 mmol/L; Blood Urea Nitrogen 14 mg/dL (7-17); Calcium 9.5 mg/dL (8.4-10.2); Carbon Dioxide 24 mmol/L (22-30); Chloride 108 mmol/L (98-107); Glucose 89 mg/dL (74-99); Potassium 3.9 mmol/L (3.5-5.1); Sodium 140 mmol/L (137-145)
[2018-12-03] MEDS: THYROID, PORK 30 MG TAB PO SCH (08:39)
[2018-12-03] MEDS: PRUCALOPRIDE SUCCINATE 1 MG PO SCH ×2 (08:39→21:13)
[2018-12-03] MEDS: APIXABAN 5 MG TAB PO SCH ×2 (08:39→21:13)
[2018-12-03] MEDS: SODIUM CHLORIDE 0.9% 1,000 ML IV SCH ×3 (08:40→20:24)
[2018-12-03] MEDS: TOPIRAMATE 25 MG TAB PO SCH ×2 (08:40→21:13)
[2018-12-03] MEDS: MONTELUKAST 10 MG TAB PO SCH (08:40)
[2018-12-03] MEDS: PREVACID 30 MG PO SCH ×2 (08:40→21:13)
[2018-12-03] MEDS: oxyCODONE-APAP 10-325MG 1 EACH TAB PO PRN ×2 (11:31→19:05)
--- NOTE | 2018-12-03 18:32 | PN ---
PROGRESS NOTE DATE OF SERVICE: This is 12/03/2018 This 38-year-old woman was admitted with gastroparesis acute exacerbation. Still complaining of nausea and abdominal pain. No chest pain. No palpitations. No fever. The patient is also receiving tube feeds at 40 mL/hour and also IV fluids 60 mL/hour. EXAM: Alert and oriented x3. Pulse 78, blood pressure 106/65, respiration 16, temperature 98.4, pulse ox 98% on room air. HEENT: Conjunctivae normal. Oral mucosa moist. NECK: No jugular venous distention. No lymph node enlargement. CARDIOVASCULAR: S1, S2. RESPIRATORY: Diminished breath sounds at the bases. No rhonchi, no crackles. ABDOMEN: Soft. Status post J-tube. Nontender. No mass palpable. LEGS: No swelling. NERVOUS SYSTEM: No focal deficits. LAB: CBC, BMP within normal limits. ASSESSMENT: 1. Acute gastroparesis acute exacerbation. 2. Continued nausea and dehydration. 3. Feeding jejunostomy. 4. Intractable abdominal pain and vomiting. 5. History of pulmonary embolus. 6. History of bacteremia, PICC line. 7. History of recurrent pancreatitis. 8. History of hypothyroidism. 9. History of headaches and migraines. 10.History of depression. 11.History of gastroesophageal reflux disease. 12.History of Edna-en-Y. 13.History of cholecystectomy. 14.History of deep vein thrombosis. RECOMMENDATIONS AND DISCUSSION: Recommend to continue current medications, continue to monitor, symptomatic treatment. At this time I would recommend continue with pain medications, p.o. feeds and as well as symptomatic treatment will be provided. Further recommendations to follow. MMODL / IJN: [id number] /
[2018-12-04] MEDS: diphenhydrAMINE 50 MG/ML 1 ML VIAL IVP PRN ×4 (00:42→18:02)
[2018-12-04] MEDS: LORazepam 2 MG/ML INJ IV PRN ×4 (00:42→18:02)
[2018-12-04] MEDS: oxyCODONE-APAP 10-325MG 1 EACH TAB PO PRN ×3 (01:32→15:32)
[2018-12-04] MEDS: HYDROmorphone 1 MG/ML 1 ML SYRINGE IVP PRN ×7 (03:21→21:52)
[2018-12-04] MEDS: SODIUM CHLORIDE 0.9% 1,000 ML IV SCH ×2 (07:28→12:01)
[2018-12-04] MEDS: SCOPOLAMINE 1.5MG/72HR PATCH TRANSDERM SCH (08:58)
[2018-12-04] MEDS: PRUCALOPRIDE SUCCINATE 1 MG PO SCH ×2 (08:58→21:49)
[2018-12-04] MEDS: TOPIRAMATE 25 MG TAB PO SCH ×2 (08:58→21:49)
[2018-12-04] MEDS: PREVACID 30 MG PO SCH ×2 (08:58→21:49)
[2018-12-04] MEDS: MONTELUKAST 10 MG TAB PO SCH (08:58)
[2018-12-04] MEDS: THYROID, PORK 30 MG TAB PO SCH (08:58)
[2018-12-04] MEDS: APIXABAN 5 MG TAB PO SCH ×2 (08:58→21:49)
[2018-12-04 12:32] VITALS: BMI 29.2
--- NOTE | 2018-12-04 15:59 | PN ---
PROGRESS NOTE DATE OF SERVICE: 12/04/2018 I am covering for Dr. Adame. HISTORY OF PRESENT ILLNESS: This 38-year-old woman was admitted with gastroparesis acute exacerbation, being closely monitored. The patient had symptomatic treatment. No chest pain. No palpitations. No fever. EXAM: Alert and oriented x3. Pulse 73, blood pressure 100/56, respiration 16, temperature 98.4, pulse ox 98% on room. HEENT: Conjunctivae normal. Oral mucosa moist. NECK: No jugular venous distention. No lymph node enlargement. CARDIOVASCULAR: S1, S2. RESPIRATORY: Diminished breath sounds at the bases. No rhonchi, no crackles. ABDOMEN: Soft. J-tube in situ. LEGS: No swelling. NERVOUS SYSTEM: No focal deficits. LABS: At this time shows WBC 8.2, hemoglobin 14, sodium 140, potassium 3.9. ASSESSMENT: 1. Acute gastroparesis acute exacerbation. 2. Continued nausea and dehydration. 3. Feeding jejunostomy history. 4. Intractable abdominal pain and vomiting. 5. History of pulmonary embolism. 6. History of bacteremia and PICC line. 7. History of recurrent pancreatitis remotely. 8. History hypothyroidism. 9. History of headaches and migraine. 10.History of depression. 11.History of gastroesophageal reflux disease. 12.History of Edna-en-Y. 13.History of cholecystectomy. 14.History of deep venous thrombosis. RECOMMENDATIONS AND DISCUSSION: Recommend to continue current management, continue symptomatic treatment. Otherwise, continue with jejunostomy feedings. Symptomatic treatment will be provided. Continue with IV fluids. The patient is symptomatically slowly improving. Otherwise, Dr. Adame will follow. MMODL / IJN: [id number] /
[2018-12-05] MEDS: LORazepam 2 MG/ML INJ IV PRN ×4 (00:29→22:41)
[2018-12-05] MEDS: diphenhydrAMINE 50 MG/ML 1 ML VIAL IVP PRN ×4 (00:29→22:40)
[2018-12-05] MEDS: HYDROmorphone 1 MG/ML 1 ML SYRINGE IVP PRN ×6 (02:04→20:49)
[2018-12-05] MEDS: SODIUM CHLORIDE 0.9% 1,000 ML IV SCH ×3 (03:53→15:29)
[2018-12-05] MEDS: THYROID, PORK 30 MG TAB PO SCH (07:11)
[2018-12-05] MEDS: TOPIRAMATE 25 MG TAB PO SCH ×2 (07:11→20:49)
[2018-12-05] MEDS: APIXABAN 5 MG TAB PO SCH ×2 (07:12→20:49)
[2018-12-05] MEDS: PRUCALOPRIDE SUCCINATE 1 MG PO SCH ×2 (07:12→20:49)
[2018-12-05] MEDS: MONTELUKAST 10 MG TAB PO SCH (07:12)
[2018-12-05] MEDS: PREVACID 30 MG PO SCH ×2 (07:12→20:49)
[2018-12-05] MEDS: PROMETHAZINE INJ 25 MG in SODIUM CHLORIDE 0.9% 50 ML IVPB PRN (10:26)
[2018-12-06] MEDS: SODIUM CHLORIDE 0.9% 1,000 ML IV SCH ×4 (00:20→23:59)
[2018-12-06] MEDS: HYDROmorphone 1 MG/ML 1 ML SYRINGE IVP PRN ×7 (00:36→22:43)
[2018-12-06] MEDS: diphenhydrAMINE 50 MG/ML 1 ML VIAL IVP PRN ×4 (05:31→23:58)
[2018-12-06] MEDS: LORazepam 2 MG/ML INJ IV PRN ×4 (05:31→23:58)
[2018-12-06] MEDS: MONTELUKAST 10 MG TAB PO SCH (07:18)
[2018-12-06] MEDS: PREVACID 30 MG PO SCH ×2 (07:18→22:42)
[2018-12-06] MEDS: PRUCALOPRIDE SUCCINATE 1 MG PO SCH ×2 (07:18→22:42)
[2018-12-06] MEDS: THYROID, PORK 30 MG TAB PO SCH (07:18)
[2018-12-06] MEDS: TOPIRAMATE 25 MG TAB PO SCH ×2 (07:18→22:42)
[2018-12-06] MEDS: APIXABAN 5 MG TAB PO SCH ×2 (07:19→22:42)
[2018-12-06] MEDS: oxyCODONE-APAP 10-325MG 1 EACH TAB PO PRN (14:07)
--- NOTE | 2018-12-06 19:40 | PN ---
PROGRESS NOTE DATE OF SERVICE: 12/06/2018 CHIEF COMPLAINT: Intractable abdominal pain, nausea and vomiting secondary to gastroparesis. HISTORY OF PRESENT ILLNESS: This lady is just about the same. She is vomiting less, but still is, and she is still having trouble with persistent abdominal pain. PHYSICAL EXAMINATION: Chest is clear. Cardiac exam is normal. The abdomen seems soft and not particularly tender. J-tube is present. IMPRESSION: Gastroparesis with intractable abdominal pain, nausea and vomiting. PLAN: Yesterday I was contacted by the hospital social welfare administrator to consider the patient for "Therapy Care." We had a lengthy discussion this morning with her in the room regarding the intention of palliative care. This is his idea, and his consideration is for treating her at home when she develops the abdominal pains and vomiting, which are episodic. Apparently, when she is not having one of these events, she is perfectly "fine and functional about the house." I explained that setting this up at home on an as-needed basis might be difficult. It should also be noted that she still going to [facility] and the [facility], and they have other potential treatment options in mind, including the possibility of a gastrectomy. The discussion ended with my offering to take this to the social welfare administrator and once again talk to the family. I talked to the patient and her with regard to the various options that would be possible, given his request. If something can be set up along these lines, this will be done. I do have some reservations, in that I do not know this lady well and I have not seen a case of gastroparesis in someone who was not diabetic, and, finally, I am not sure that she has received all the care that might be made available to her at these other institutions. I am concerned about relegating her to a life of IV narcotics on what seems to be a fairly persistent basis. MMODL / IJN: [id number] /
--- NOTE | 2018-12-06 19:40 | PN ---
PROGRESS NOTE DATE OF SERVICE: 12/05/2018. CHIEF COMPLAINT: Intractable nausea, vomiting and pain. HISTORY OF PRESENT ILLNESS: It was hoped that this lady could go home Tuesday as was planned, but she has been in over the weekend. She has an appointment tomorrow at [facility] and wishes to stay in overnight and leave first thing in the morning for that appointment. PHYSICAL EXAMINATION: Chest is clear. Cardiac exam is normal. Her abdomen is unchanged. Color is good. Hydration is good. IMPRESSION: Gastroparesis with intractable abdominal pain and vomiting. PLAN: Discharge Tuesday morning in time to go to [place] for her appointment there. MMODL / IJN: [id number] /
[2018-12-07] MEDS: HYDROmorphone 1 MG/ML 1 ML SYRINGE IVP PRN ×6 (02:00→22:54)
[2018-12-07] MEDS: SODIUM CHLORIDE 0.9% 1,000 ML IV SCH ×2 (05:38→14:59)
[2018-12-07] MEDS: diphenhydrAMINE 50 MG/ML 1 ML VIAL IVP PRN ×3 (08:36→22:08)
[2018-12-07] MEDS: LORazepam 2 MG/ML INJ IV PRN ×3 (08:36→22:07)
[2018-12-07] MEDS: APIXABAN 5 MG TAB PO SCH ×2 (08:43→21:19)
[2018-12-07] MEDS: MONTELUKAST 10 MG TAB PO SCH (08:44)
[2018-12-07] MEDS: PREVACID 30 MG PO SCH ×2 (08:44→21:19)
[2018-12-07] MEDS: THYROID, PORK 30 MG TAB PO SCH (08:45)
[2018-12-07] MEDS: PRUCALOPRIDE SUCCINATE 1 MG PO SCH ×2 (08:45→21:19)
[2018-12-07] MEDS: SCOPOLAMINE 1.5MG/72HR PATCH TRANSDERM SCH (08:46)
[2018-12-07] MEDS: TOPIRAMATE 25 MG TAB PO SCH ×2 (08:46→21:19)
[2018-12-07] MEDS: PROMETHAZINE INJ 25 MG in SODIUM CHLORIDE 0.9% 50 ML IVPB PRN (09:42)
--- NOTE | 2018-12-07 14:46 | XR ---
EXAMINATION TYPE: XR chest 2V DATE OF EXAM: 12/07/2018 COMPARISON: 08/01/2018 TECHNIQUE: PA and lateral views submitted. HISTORY: Cough possible aspiration FINDINGS: The lungs are clear and there is no pneumothorax, pleural effusion, or focal pneumonia. Surgical cl ips in the abdomen noted. No overt failure. IMPRESSION: 1. No acute process.
[2018-12-07 15:06] LABS: Basophils # (A) 0.1 k/uL (0-0.2); Basophils % (A) 1 %; Eosinophils # (A) 0.2 k/uL (0-0.7); Eosinophils % (A) 2 %; HCT 42.6 % (34.0-46.0); HGB 14.3 gm/dL (11.4-16.0); Lymphocytes # (A) 2.3 k/uL (1.0-4.8); Lymphocytes % (A) 26 %; MCH 27.9 pg (25.0-35.0); MCHC 33.7 g/dL (31.0-37.0); Monocytes # (A) 0.5 k/uL (0-1.0); Monocytes % (A) 6 %; Neutrophils # (A) 5.5 k/uL (1.3-7.7); Neutrophils % (A) 64 %; Platelet Count 359 k/uL (150-450); RBC 5.14 m/uL (3.80-5.40); RDW 14.1 % (11.5-15.5); WBC 8.6 k/uL (3.8-10.6)
[2018-12-07 15:18] LABS: ALT 59 U/L (9-52); AST 24 U/L (14-36); African American GFR (CKD) >90 (>60 ml/min/1.73 sqM); Albumin 3.9 g/dL (3.5-5.0); Alkaline Phosphatase 147 U/L (38-126); Anion Gap 10 mmol/L; Blood Urea Nitrogen 12 mg/dL (7-17); Calcium 9.5 mg/dL (8.4-10.2); Carbon Dioxide 21 mmol/L (22-30); Chloride 109 mmol/L (98-107); Glucose 87 mg/dL (74-99); Potassium 4.4 mmol/L (3.5-5.1); Sodium 140 mmol/L (137-145); Total Bilirubin 0.2 mg/dL (0.2-1.3); Total Protein 6.6 g/dL (6.3-8.2)
[2018-12-07] MEDS: ONDANSETRON 4 MG/2 ML VIAL IVP PRN (21:59)
--- NOTE | 2018-12-07 22:41 | PN ---
PROGRESS NOTE CHIEF COMPLAINT: Intractable abdominal pain and nausea. HISTORY OF PRESENT ILLNESS: This lady is still vomiting and still having significant pain. I had another discussion with her this morning regarding discharge planning and palliative care. During the day was notified that Palliative Care will see her only in the home, not preemptively in the hospital. She was told that we would then discharge her in the afternoon. Later in the day I got a call from her nurse on the floor that the patient wanted to wait until tomorrow to be discharged. Physical exam is unchanged. IMPRESSION: 1. Gastroparesis with intractable nausea and vomiting. 2. Depression. PLAN: We will discharge her home tomorrow and follow her as an outpatient with palliative care. MMODL / IJN: [id number] /
[2018-12-08] MEDS: SODIUM CHLORIDE 0.9% 1,000 ML IV SCH ×3 (01:59→08:33)
[2018-12-08] MEDS: HYDROmorphone 1 MG/ML 1 ML SYRINGE IVP PRN ×4 (02:02→12:19)
[2018-12-08 02:05] VITALS: RESP 16
[2018-12-08] MEDS: diphenhydrAMINE 50 MG/ML 1 ML VIAL IVP PRN ×2 (04:19→10:09)
[2018-12-08] MEDS: LORazepam 2 MG/ML INJ IV PRN ×2 (04:20→10:08)
[2018-12-08 07:32] VITALS: BP 87/50; PULSE 42; TEMP 98.2
[2018-12-08] MEDS: MONTELUKAST 10 MG TAB PO SCH (08:24)
[2018-12-08] MEDS: APIXABAN 5 MG TAB PO SCH (08:24)
[2018-12-08] MEDS: ONDANSETRON 4 MG/2 ML VIAL IVP PRN (08:24)
[2018-12-08] MEDS: TOPIRAMATE 25 MG TAB PO SCH (08:25)
[2018-12-08] MEDS: THYROID, PORK 30 MG TAB PO SCH (08:25)
[2018-12-08] MEDS: PREVACID 30 MG PO SCH (08:26)
[2018-12-08] MEDS: PRUCALOPRIDE SUCCINATE 1 MG PO SCH (08:26)
--- NOTE | 2018-12-09 07:05 | DS ---
DISCHARGE SUMMARY CHIEF COMPLAINT: Intractable nausea, vomiting, abdominal pain. HISTORY OF PRESENT ILLNESS AND PHYSICAL EXAM: Details of this lady's history and physical can be found in the initial workup. LABORATORY STUDIES: While she was in the hospital, she had laboratory studies, details of which can be found in the laboratory section of the chart. COURSE IN HOSPITAL: After admission she was placed on bedrest, started on intravenous fluids, IV antiemetics and analgesics. She continued to have intermittent episodes of severe, crampy abdominal pain and vomiting. It was at one point felt she could be discharged, but then her symptoms became aggravated. She was scheduled to go to [facility], but this apparently fell through and they gave her an appointment for a week or 10 days later. asked about palliative care at home so she could be treated at the home when she develops these exacerbations. This was looked into and they will see her after she is home. She is doing well enough to be discharged on the and she will go home on usual activity, medication and we will see her in several days. We will arrange for palliative care. She was also told that going forward I will need reports of any visits either at [facility] or [place]. FINAL DIAGNOSES: 1. Gastroparesis with intractable nausea, vomiting, abdominal pain. 2. Depression. 3. Analgesic dependency. OPERATIONS: None. CONSULTATION: None. She is improved. MMISABELL / FLAKON: [id number] /
== END 2018-12-08 13:02 | disposition home health service (06) | DRG 392 ==
LOC: EC 22:34 → 4SSUR 11-22 05:03 → OBSVTOIN 11-25 09:02
PROVIDERS: ADMIT Family Medicine; ATTEND Family Medicine
DX: K31.84 Gastroparesis (principal); K94.13 Enterostomy malfunction; Z51.5 Encounter for palliative care; E03.9 Hypothyroidism, unspecified; G89.29 Other chronic pain; K59.8 Other specified functional intestinal disorders; K21.9 Gastro-esophageal reflux disease without esophagitis; K59.00 Constipation, unspecified; R19.7 Diarrhea, unspecified; E86.0 Dehydration; F32.9 Major depressive disorder, single episode, unspecified; G43.909 Migraine, unspecified, not intractable, without status migrainosus; Z79.01 Long term (current) use of anticoagulants; Z79.899 Other long term (current) drug therapy; Z98.84 Bariatric surgery status; Z87.19 Personal history of other diseases of the digestive system; Z86.2 Personal history of diseases of the blood and blood-forming organs and certain disorders involving the immune mechanism; Z86.711 Personal history of pulmonary embolism; Z86.19 Personal history of other infectious and parasitic diseases; Z87.11 Personal history of peptic ulcer disease; Z86.718 Personal history of other venous thrombosis and embolism; Z90.49 Acquired absence of other specified parts of digestive tract; Z98.890 Other specified postprocedural states; Z98.891 History of uterine scar from previous surgery; Z88.8 Allergy status to other drugs, medicaments and biological substances; Z82.49 Family history of ischemic heart disease and other diseases of the circulatory system; Y84.8 Other medical procedures as the cause of abnormal reaction of the patient, or of later complication, without mention of misadventure at the time of the procedure
CPT/HCPCS: 36415; 71046; 74018; 74022; 80048; 80053; 82150; 83690; 83735; 84100; 85025; 85027; 96361; 96365; 96372; 96375; 96376; 99285

== ENCOUNTER 2018-12-09 00:36 | Inpatient (IN) | payer BC ==
[2018-12-09] MEDS ORDERED: diphenhydrAMINE 50 MG/ML 1 ML VIAL IVP STA (01:27)
[2018-12-09] MEDS ORDERED: SODIUM CHLORIDE 0.9% 1,000 ML IV STA (01:27)
[2018-12-09] MEDS ORDERED: FAMOTIDINE 20 MG/2 ML VIAL IV STA (01:28)
[2018-12-09] MEDS ORDERED: PROMETHAZINE INJ 25 MG in SODIUM CHLORIDE 0.9% 50 ML IVPB STA (01:28)
[2018-12-09] MEDS ORDERED: HYDROmorphone 1 MG/ML 1 ML SYRINGE IVP STA ×3 (01:28→07:50)
--- NOTE | 2018-12-09 01:59 | ED ---
Nausea/Vomiting/Diarrhea HPI - General Source: patient Mode of arrival: ambulatory Limitations: no limitations <Paula Marshall - Last Filed: 12/09/18 18:21> <Maximino Boyd - Last Filed: 12/10/18 08:02> - General Stated complaint: Nausea - History of Present Illness Initial comments: 38-year-old female patient presents to the emergency department today for shaila luation of nausea, vomiting, abdominal pain. Patient states that she was just discharged from the hospital today for similar symptoms. Patient's that she's been unable to stop vomiting since arriving home. States she did take Phenergan around 6 PM, Zofran around 8 PM without relief. States she did take her pain medication on 6 PM as well. She denies any new symptoms. Denies fever, chills, constipation, or diarrhea. Patient does have a feeding tube and has been using that without difficulty. Patient denies any recent rash, shortness breath, chest pain, back pain, numbness, tingling, dizziness, weakness, hematuria, dysuria, urinary urgency, urinary frequency, headache, visual changes, or any other complaints. (Paula Marshall) - Related Data Home Medications Medication Instructions Recorded Confirmed Lansoprazole [Prevacid] 30 mg PO BID 02/02/18 12/09/18 Montelukast Chew [Singulair] 10 mg PO DAILY 02/02/18 12/09/18 Topiramate [Trokendi Xr] 50 mg PO DAILY 07/18/18 12/09/18 Apixaban [Eliquis] 5 mg PO BID 08/21/18 12/09/18 Ondansetron Odt [Zofran ODT] 8 mg PO Q8HR PRN 10/06/18 12/09/18 Promethazine HCl [Phenergan Syrup] 12.5 mg PO Q6HR PRN 10/06/18 12/09/18 Thyroid,Pork [[place] Thyroid] 60 mg PO Q48H 10/06/18 12/09/18 Thyroid,Pork [[place] Thyroid] 90 mg PO Q48H 10/06/18 12/09/18 Prucalopride Succinate [Motegrity] 1 mg PO BID 10/19/18 12/09/18 SUMAtriptan SUCCINATE [Imitrex] 100 mg PO DAILY PRN 10/19/18 12/09/18 Previous Rx's Medication Instructions Recorded Scopolamine 1.5MG/72Hr Patch 1 patch TRANSDERM Q72H #10 patch 07/31/18 [TransDerm Scop] Mupirocin Calcium [Bactroban 2% 1 applic TOPICAL TID 7 Days gm 10/19/18 Cream] Allergies Allergy/AdvReac Type Severity Reaction Status Date / Time metoclopramide [From Reglan] AdvReac Mild jittery Verified 12/09/18 07:24 prochlorperazine AdvReac Mild JITTERY Verified 12/09/18 07:24 [From Compazine] Review of Systems ROS Other: All systems not noted in ROS Statement are negative. <Paula Marshall - Last Filed: 12/09/18 18:21> ROS Other: All systems not noted in ROS Statement are negative. <Maximino Boyd - Last Filed: 12/10/18 08:02> ROS Statement: Those systems with pertinent positive or pertinent negative responses have been documented in the HPI. Past Medical History Past Medical History: GERD/Reflux, Pulmonary Embolus (PE), Thyroid Disorder Additional Past Medical History / Comment(s): Idiopathic gastroparesis, takes little in orally-has J tube for feedings,R pulmonary embolism , pancreatitis, hypothyroid, chronic anemia, sinus problems, migraine, dvt -2018. 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 J tube replaced Past Anesthesia/Blood Transfusion Reactions: No Reported Reaction Past Psychological History: Depression Smoking Status: Never smoker Past Alcohol Use History: None Reported Past Drug Use History: None Reported - Past Family History Father Family Medical History: Hypertension Additional Family Medical History / Comment(s): DAD IS 56 AND IN [facility] Mother Additional Family Medical History / Comment(s): MOM IS 56 AND IN GOOD HEALTH <Paula Marshall - Last Filed: 12/09/18 18:21> General Exam Limitations: no limitations General appearance: alert, in no apparent distress, other (This is a well- developed, well-nourished adult female patient in no acute distress. Vital signs upon presentation are temperature 98.8F, pulse 107, respirations 16, blood pressure 114/80, pulse ox 99% on room air.) Eye exam: Present: normal appearance, PERRL, EOMI. Absent: scleral icterus, conjunctival injection, periorbital swelling ENT exam: Present: normal exam, normal oropharynx, mucous membranes moist Respiratory exam: Present: normal lung sounds bilaterally. Absent: respiratory distress, wheezes, rales, rhonchi, stridor Cardiovascular Exam: Present: regular rate, normal rhythm, normal heart sounds. Absent: systolic murmur, diastolic murmur, rubs, gallop, clicks GI/Abdominal exam: Present: soft, tenderness (Midepigastric), normal bowel sounds. Absent: distended, guarding, rebound, rigid Neurological exam: Present: alert, oriented X3, CN II-XII intact Psychiatric exam: Present: normal affect, normal mood Skin exam: Present: warm, dry, intact, normal color. Absent: rash <Paula Marshall - Last Filed: 12/09/18 18:21> Course <Maximino Boyd - Last Filed: 12/10/18 08:02> Vital Signs 12/09/18 12/09/18 12/09/18 00:58 04:00 06:00 Temperature 98.8 F Pulse Rate 107 H 89 85 Respiratory 16 17 16 Rate Blood Pressure 114/80 115/71 108/72 O2 Sat by Pulse 99 100 Oximetry 12/09/18 07:56 Temperature 98.8 F Pulse Rate 79 Respiratory 18 Rate Blood Pressure 130/85 O2 Sat by Pulse 98 Oximetry - Reevaluation(s) Reevaluation #1: 12/09/18 02:28 I was informed that the patient did not have peripheral IV access, discussed with the patient and she did consent for an external jugular IV line, which I placed on the right side, for the indication of lab draw and also for IV fluid and medication administration. (Maximino Boyd) Medical Decision Making - Lab Data Result diagrams: 12/09/18 01:30 12/09/18 01:30 <Paula Marshall - Last Filed: 12/09/18 18:21> - Lab Data Result diagrams: 12/09/18 01:30 12/09/18 01:30 <Maximino Boyd - Last Filed: 12/10/18 08:02> - Medical Decision Making 38-year-old female patient presented to the emergency department today for evaluation of abdominal pain, nausea, vomiting. Patient has chronic gastroparesis abdominal pain. She was just discharged the hospital earlier in the day. States that she started vomiting almost soon as she got home and was unable to stop this by using her home medications. Labs are performed and were unremarkable. Patient required several doses of medication to improve symptoms. She does not feel comfortable being discharged home at this time. She'll be admitted for further evaluation. (Paula Marshall) I saw this patient in conjunction with the physician purchasing assistant. I performed independent history and physical exam. Agree with case management. (Maximino Boyd) - Lab Data Lab Results 12/09/18 12/09/18 12/09/18 Range/Units 01:30 01:30 03:53 WBC 11.2 H (3.8-10.6) k/uL RBC 4.95 (3.80-5.40) m/uL Hgb 12.9 (11.4-16.0) gm/dL Hct 39.8 (34.0-46.0) % MCV 80.4 (80.0-100.0) fL MCH 26.0 (25.0-35.0) pg MCHC 32.3 (31.0-37.0) g/dL RDW 12.8 (11.5-15.5) % Plt Count 322 (150-450) k/uL Neutrophils % 69 % Lymphocytes % 20 % Monocytes % 6 % Eosinophils % 3 % Basophils % 0 % Neutrophils # 7.8 H (1.3-7.7) k/uL Lymphocytes # 2.3 (1.0-4.8) k/uL Monocytes # 0.7 (0-1.0) k/uL Eosinophils # 0.3 (0-0.7) k/uL Basophils # 0.0 (0-0.2) k/uL Sodium 139 (137-145) mmol/L Potassium 3.9 (3.5-5.1) mmol/L Chloride 108 H (98-107) mmol/L Carbon Dioxide 21 L (22-30) mmol/L Anion Gap 10 mmol/L BUN 10 (7-17) mg/dL Creatinine 0.62 (0.52-1.04) mg/dL Est GFR (CKD-EPI)AfAm >90 (>60 ml/min/1.73 sqM) Est GFR (CKD-EPI)NonAf >90 (>60 ml/min/1.73 sqM) Glucose 85 (74-99) mg/dL Calcium 9.3 (8.4-10.2) mg/dL Total Bilirubin 0.3 (0.2-1.3) mg/dL AST 27 (14-36) U/L ALT 55 H (9-52) U/L Alkaline Phosphatase 139 H (38-126) U/L Total Protein 6.4 (6.3-8.2) g/dL Albumin 3.8 (3.5-5.0) g/dL Amylase 69 (30-110) U/L Lipase 14 L (23-300) U/L Urine Color Yellow Urine Appearance Clear (Clear) Urine pH 5.5 (5.0-8.0) Ur Specific [place] 1.009 (1.001-1.035) Urine Protein Negative (Negative) Urine Glucose (UA) Negative (Negative) Urine Ketones Negative (Negative) Urine Blood Negative (Negative) Urine Nitrite Negative (Negative) Urine Bilirubin Negative (Negative) Urine Urobilinogen <2.0 (<2.0) mg/dL Ur Leukocyte Esterase Negative (Negative) Disposition <Paula Marshall - Last Filed: 12/09/18 18:21> <Maximino Boyd - Last Filed: 12/10/18 08:02> Clinical Impression: Intractable nausea and vomiting, Intractable abdominal pain Disposition: ADMITTED IP TO THIS [facility] Condition: Serious
[2018-12-09 02:06] LABS: Basophils % (A) 0 %; Eosinophils # (A) 0.3 k/uL (0-0.7); Eosinophils % (A) 3 %; HCT 39.8 % (34.0-46.0); HGB 12.9 gm/dL (11.4-16.0); Lymphocytes # (A) 2.3 k/uL (1.0-4.8); Lymphocytes % (A) 20 %; MCHC 32.3 g/dL (31.0-37.0); MCV 80.4 fL (80.0-100.0); Mean Platelet Volume 6.5; Monocytes # (A) 0.7 k/uL (0-1.0); Monocytes % (A) 6 %; Neutrophils # (A) 7.8 k/uL (1.3-7.7); Neutrophils % (A) 69 %; Platelet Count 322 k/uL (150-450); RBC 4.95 m/uL (3.80-5.40); RDW 12.8 % (11.5-15.5); WBC 11.2 k/uL (3.8-10.6)
[2018-12-09 02:22] LABS: ALT 55 U/L (9-52); AST 27 U/L (14-36); African American GFR (CKD) >90 (>60 ml/min/1.73 sqM); Albumin 3.8 g/dL (3.5-5.0); Alkaline Phosphatase 139 U/L (38-126); Amylase 69 U/L (30-110); Anion Gap 10 mmol/L; Blood Urea Nitrogen 10 mg/dL (7-17); Calcium 9.3 mg/dL (8.4-10.2); Carbon Dioxide 21 mmol/L (22-30); Chloride 108 mmol/L (98-107); Glucose 85 mg/dL (74-99); Potassium 3.9 mmol/L (3.5-5.1); Sodium 139 mmol/L (137-145); Total Bilirubin 0.3 mg/dL (0.2-1.3); Total Protein 6.4 g/dL (6.3-8.2)
[2018-12-09 04:01] LABS: Appearance,Urine Clear (Clear); Bilirubin,Urine Negative (Negative); Blood,Urine Negative (Negative); Color,Urine Yellow; Glucose,Urine (UA) Negative (Negative); Ketones,Urine Negative (Negative); Leukocyte Esterase,Urine Negative (Negative); Nitrite,Urine Negative (Negative); PH, Urine 5.5 (5.0-8.0); Protein,Urine Negative (Negative); Specific Gravity,Urine 1.009 (1.001-1.035); Urobilinogen,Urine <2.0 mg/dL (<2.0)
[2018-12-09] MEDS ORDERED: SODIUM CHLORIDE 0.9% 1,000 ML IV ONE (04:14)
[2018-12-09] MEDS ORDERED: ONDANSETRON 4 MG/2 ML VIAL IVP STA (04:49)
[2018-12-09] MEDS ORDERED: NALOXONE 0.4 MG/ML 1 ML VIAL IV PRN (06:21)
[2018-12-09] MEDS ORDERED: SUMAtriptan SUCCINATE 50 MG TAB PO PRN (06:25)
[2018-12-09] MEDS ORDERED: SCOPOLAMINE 1.5MG/72HR PATCH TRANSDERM SCH (06:30)
[2018-12-09] MEDS ORDERED: LORazepam 2 MG/ML INJ IV STA (06:49)
[2018-12-09] MEDS: SODIUM CHLORIDE 0.9% 1,000 ML IV SCH ×3 (07:04→21:09)
[2018-12-09] MEDS ORDERED: PANTOPRAZOLE 40 MG TABLET PO SCH (07:30)
[2018-12-09] MEDS ORDERED: TOPIRAMATE 25 MG TAB PO SCH (09:00)
[2018-12-09] MEDS: PROMETHAZINE INJ 25 MG in SODIUM CHLORIDE 0.9% 50 ML IVPB PRN (10:06)
[2018-12-09] MEDS: THYROID, PORK 30 MG TAB PO SCH (10:13)
[2018-12-09] MEDS: PRUCALOPRIDE SUCCINATE PO SCH ×2 (10:14→20:01)
[2018-12-09] MEDS: MONTELUKAST 5 MG CHEWABLE PO SCH (10:14)
[2018-12-09] MEDS: APIXABAN 5 MG TAB PO SCH ×2 (10:18→20:01)
[2018-12-09] MEDS ORDERED: PROMETHAZINE HCL 6.25 MG/5 ML CUP PO PRN (10:44)
[2018-12-09] MEDS ORDERED: ONDANSETRON ODT 8 MG TAB.RAPDIS PO PRN (10:44)
[2018-12-09] MEDS ORDERED: oxyCODONE-APAP 7.5-325MG 1 EACH TAB PO PRN (10:47)
[2018-12-09] MEDS: HYDROmorphone 1 MG/ML 1 ML SYRINGE IVP PRN ×3 (11:44→21:07)
[2018-12-09 13:36] VITALS: BMI 28.8
--- NOTE | 2018-12-09 13:52 | HP ---
HISTORY AND PHYSICAL CHIEF COMPLAINT: Intractable abdominal pain, vomiting. HISTORY OF PRESENT ILLNESS: This is another recent admission for this 38-year-old white female with gastroparesis and intractable vomiting and abdominal pain. She had just been in the hospital for extended stay and went home. It was to be arranged that she receive palliative care in hopes of treating her at home for these episodes in order to keep her out of the hospital. She came back to the emergency room. REVIEW OF SYSTEMS: She has had no fever and chills, chest pain, hematemesis, melena, hematochezia, jaundice, renal failure, diabetes, etc. Past medical history, family history and personal and social history are all otherwise unchanged. PHYSICAL EXAMINATION: Blood pressure is 135/64 with a pulse of 89, respirations of 33 and she is afebrile. In general, she appeared to be slightly pale, slightly dehydrated. Nutrition seemed to be adequate. Head, ears, eyes, nose, mouth, and throat were normal. Neck veins not distended. Thyroid was not enlarged. Chest is clear to auscultation and percussion. Cardiac exam demonstrated normal sinus rhythm and no murmurs or extra sounds. Abdomen is soft and there is no change in ostomy tube in place. Bowel sounds are present. There are no abdominal masses. Extremities: Normal. Neurologically she is intact. IMPRESSION: 1. Gastroparesis with intractable nausea, vomiting, and abdominal pain. 2. Depression. 3. Narcotic dependency, iatrogenic. PLAN: 1. Bed rest. 2. IV fluids. 3. Resume analgesia. 4. Consult director social and discharge planning for followup. This lady is becoming a management problem. Her admission is probably not justified. I had this discussion with her regarding future management. She understands that she cannot stay on IV narcotics forever, particularly as an inpatient. She is agreeable to trying to dial them down slightly with the idea that she could at least be maintained on lower dosages and avoid withdrawal issues. I personally believe that there is a lot of depression going on and I am not sure about the family dynamics. MMFOSTER / FLAKON: [id number] /
[2018-12-09] MEDS: diphenhydrAMINE 50 MG/ML 1 ML VIAL IVP PRN ×2 (13:58→20:00)
[2018-12-09] MEDS: LORazepam 2 MG/ML INJ IV PRN ×2 (13:59→20:00)
[2018-12-09] MEDS: MUPIROCIN 2% OINT 22 GM TUBE TOPICAL SCH ×2 (16:52→20:05)
[2018-12-09] MEDS: PREVACID 30 MG PO SCH (20:01)
[2018-12-10] MEDS: PROMETHAZINE INJ 25 MG in SODIUM CHLORIDE 0.9% 50 ML IVPB PRN ×3 (01:04→17:58)
[2018-12-10] MEDS: HYDROmorphone 1 MG/ML 1 ML SYRINGE IVP PRN ×3 (01:05→13:20)
[2018-12-10] MEDS: LORazepam 2 MG/ML INJ IV PRN ×3 (05:01→17:58)
[2018-12-10] MEDS: diphenhydrAMINE 50 MG/ML 1 ML VIAL IVP PRN ×3 (05:01→17:59)
[2018-12-10] MEDS: THYROID, PORK 30 MG TAB PO SCH (05:11)
[2018-12-10] MEDS: MONTELUKAST 5 MG CHEWABLE PO SCH (08:59)
[2018-12-10] MEDS: APIXABAN 5 MG TAB PO SCH ×2 (09:00→20:52)
[2018-12-10] MEDS: PRUCALOPRIDE SUCCINATE PO SCH ×2 (09:00→20:52)
[2018-12-10] MEDS: PREVACID 30 MG PO SCH ×2 (09:00→20:52)
[2018-12-10] MEDS: TROKENDI 50 MG PO SCH (09:07)
[2018-12-10] MEDS: MUPIROCIN 2% OINT 22 GM TUBE TOPICAL SCH ×3 (09:12→20:52)
[2018-12-10] MEDS: SODIUM CHLORIDE 0.9% 1,000 ML IV SCH ×3 (09:12→20:52)
[2018-12-10] MEDS: HYDROmorphone 1 MG/ML 1 ML SYRINGE IM PRN ×3 (16:35→22:58)
[2018-12-11] MEDS: LORazepam 2 MG/ML INJ IV PRN ×2 (00:14→06:09)
[2018-12-11] MEDS: diphenhydrAMINE 50 MG/ML 1 ML VIAL IVP PRN ×4 (00:14→18:26)
[2018-12-11] MEDS: HYDROmorphone 1 MG/ML 1 ML SYRINGE IM PRN ×7 (02:08→21:49)
[2018-12-11] MEDS: PROMETHAZINE INJ 25 MG in SODIUM CHLORIDE 0.9% 50 ML IVPB PRN ×4 (03:21→21:52)
[2018-12-11] MEDS: THYROID, PORK 30 MG TAB PO SCH (06:04)
[2018-12-11] MEDS: SODIUM CHLORIDE 0.9% 1,000 ML IV SCH ×3 (06:05→23:41)
[2018-12-11] MEDS: PREVACID 30 MG PO SCH ×2 (08:57→21:55)
[2018-12-11] MEDS: TROKENDI 50 MG PO SCH (08:58)
[2018-12-11] MEDS: APIXABAN 5 MG TAB PO SCH ×2 (08:58→21:49)
[2018-12-11] MEDS: PRUCALOPRIDE SUCCINATE PO SCH ×2 (08:58→21:49)
[2018-12-11] MEDS ORDERED: SCOPOLAMINE 1.5MG/72HR PATCH TRANSDERM SCH (09:00)
[2018-12-11] MEDS: MUPIROCIN 2% OINT 22 GM TUBE TOPICAL SCH ×2 (09:09→15:39)
[2018-12-11] MEDS: MONTELUKAST 5 MG CHEWABLE PO SCH (09:19)
--- NOTE | 2018-12-11 10:04 | CT ---
EXAMINATION TYPE: CT abdomen pelvis w con DATE OF EXAM: 12/11/2018 COMPARISON: 09/23/2018 HISTORY: J tube infection/drainage CT DLP: 1219 mGycm CONTRAST: CT scan of the abdomen and pelvis is performed without Oral Contrast and with IV Contrast, patient in jected with 100 mL of Isovue 300. FINDINGS: LUNG BASES-: No visible nodule. No infiltrate. LIVER/GB: No calcified gallstones. No space occupying hepatic lesion. Biliary tree is of normal ca liber. PANCREAS: No inflammation. No distinct mass. SPLEEN: No splenic enlargement. No lesion seen. ADRENALS: No nodule. No thickening. KIDNEYS/BLADDER: No hydronephrosis. No nephrolithiasis. No distinct renal mass. Urinary bladder g rossly unremarkable. BOWEL: J-tube is noted the left hemiabdomen. Small fluid collection at the subcutaneous level measure s 2.1 x 1.4 cm and may reflect seroma or small developing abscess. No evidence for free air. Gastroin testinal tract is of normal caliber. GENITAL ORGANS: IUD is in place. LYMPH NODES: No greater than 1cm abdominal or pelvic lymph nodes are appreciated. AORTA: No significant abnormality. OSSEOUS STRUCTURES: No significant abnormality is seen. OTHER: No significant additional abnormality is seen. IMPRESSION: 1. J-tube is noted the left hemiabdomen. Small fluid collection at the subcutaneous level measures 2. 1 x 1.4 cm and may reflect seroma or small developing abscess.
--- NOTE | 2018-12-11 12:03 | P.GSCN ---
History of Present Illness Consult date: 12/11/18 Reason for Consult: infected j tube site Requesting physician: Wong Adame History of present illness: CHIEF COMPLAINT: infected J tube HISTORY OF PRESENT ILLNESS: 38 year old female with a history of gastroparesis who was admitted to the hospital secondary to nausea and vomiting. Patient reports she follows with a GI specialist at [facility]. General surgery was consulted for evaluation of J tube for possible infection. Patient reports she began having redness and pain two days ago at her J tube site. She reports it has gotten worse and is more painful. She reports purulent drainage from feeding tube insertion site. PAST MEDICAL HISTORY: See list. PAST SURGICAL HISTORY: See list. SOCIAL HISTORY: No illicit drug use. REVIEW OF SYSTEMS: CONSTITUTIONAL: Denies fever or chills. HEENT: Denies blurred vision, vision changes, or eye pain. Denies hemoptysis CARDIOVASCULAR: Denies chest pain or pressure. RESPIRATORY: No shortness of breath. GASTROINTESTINAL: Refer to HPI for pertinent findings HEMATOLOGIC: Denies bleeding disorders. GENITOURINARY: Denies any blood in urine. SKIN: Reports redness, erythema, and purulent drainage to feeding tube site. PHYSICAL EXAM: VITAL SIGNS: Reviewed. GENERAL: Well-developed in no acute distress. HEENT: No sclera icterus. Extraocular movements grossly intact. Moist buccal mucosa. Head is atraumatic, normocephalic. ABDOMEN: Soft. Nondistended. Nontender. J tube intact. SKIN: Erythema and swelling surrounding J tube insertion site. Area indurated with no palpable fluid collection. Small amount of purulent drainage. NEUROLOGIC: Alert and oriented. Cranial nerves II through XII grossly intact. LABORATORY DATA: WBC 11.2. Hemoglobin 12.9 ASSESSMENT: 1. Acute on chronic intractable nausea and vomiting 2. Cellulitis surrounding J-tube 3. Gastroparesis with history of J-tube placement PLAN: 1. Culture drainage surrounding J tube site 2. Continue local wound care 3. Obtain CT abdomen pelvis with IV contrast to rule out abscess. Patient unable to tolerate oral contrast due to gastroparesis 4. Infectious disease consulted as well. Await recommendations 5. Further recommendations pending CT scan and patient clinical course Nurse practitioner note has been reviewed by physician. Signing provider agrees with the documented findings, assessment, and plan of care. Past Medical History Past Medical History: GERD/Reflux, Pulmonary Embolus (PE), Thyroid Disorder Additional Past Medical History / Comment(s): Idiopathic gastroparesis, takes little in orally-has J tube for feedings,R pulmonary embolism , pancreatitis, hypothyroid, chronic anemia, sinus problems, migraine, dvt -2018. 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 J tube replaced Past Anesthesia/Blood Transfusion Reactions: No Reported Reaction Past Psychological History: Depression Smoking Status: Never smoker Past Alcohol Use History: None Reported Past Drug Use History: None Reported - Past Family History Father Family Medical History: Hypertension Additional Family Medical History / Comment(s): DAD IS 56 AND IN [place] [facility]ALTH Mother Additional Family Medical History / Comment(s): MOM IS 56 AND IN [place] [facility]ALTH Medications and Allergies Home Medications Medication Instructions Recorded Confirmed Type Lansoprazole [Prevacid] 30 mg PO BID 02/02/18 12/09/18 History Montelukast Chew [Singulair] 10 mg PO DAILY 02/02/18 12/09/18 History Topiramate [Trokendi Xr] 50 mg PO DAILY 07/18/18 12/09/18 History Scopolamine 1.5MG/72Hr Patch 1 patch TRANSDERM Q72H #10 patch 07/31/18 12/09/18 Rx [TransDerm Scop] Apixaban [Eliquis] 5 mg PO BID 08/21/18 12/09/18 History Ondansetron Odt [Zofran ODT] 8 mg PO Q8HR PRN 10/06/18 12/09/18 History Promethazine HCl [Phenergan Syrup] 12.5 mg PO Q6HR PRN 10/06/18 12/09/18 History Thyroid,Pork [[place] Thyroid] 60 mg PO Q48H 10/06/18 12/09/18 History Thyroid,Pork [[place] Thyroid] 90 mg PO Q48H 10/06/18 12/09/18 History Mupirocin Calcium [Bactroban 2% 1 applic TOPICAL TID 7 Days gm 10/19/18 12/09/18 Rx Cream] Prucalopride Succinate [Motegrity] 1 mg PO BID 10/19/18 12/09/18 History SUMAtriptan SUCCINATE [Imitrex] 100 mg PO DAILY PRN 10/19/18 12/09/18 History Allergies Allergy/AdvReac Type Severity Reaction Status Date / Time metoclopramide [From Reglan] AdvReac Mild jittery Verified 12/09/18 07:24 prochlorperazine AdvReac Mild JITTERY Verified 12/09/18 07:24 [From Compazine] Surgical - Exam Vital Signs Temp Pulse Resp BP Pulse Ox 98.8 F 107 H 16 114/80 99 12/09/18 00:58 12/09/18 00:58 12/09/18 00:58 12/09/18 00:58 12/09/18 00:58 Results - Labs 12/09/18 01:30 12/09/18 01:30
--- NOTE | 2018-12-11 13:28 | P.CONS ---
History of Present Illness - Reason for Consult Consult date: 12/11/18 Possible infection and J-tube site - History of Present Illness This is a [id number] female known to ID services from July 2008 admission which time she was seen for fevers secondary to prior IV site. Patient is Ab0 who has a several year history of intractable nausea and vomiting related to gastroparesis of an undetermined etiology. She has had extensive workup and care at outside tertiary medical centers including [facility], [facility] and soon to be [facility]. She's had interventions that have included the gastric pacemaker that was removed due to infection. She is on a clinical trial with Propulsid and is tube fed by the jejunostomy tube. She fortunately does not have wasting but does feel poorly. Patient had a recent hospitalization November 25 for abdominal pain with intractable nausea and vomiting. Patient was discharged home and came back within 8 hours and was readmitted. Patient is currently on tube feedings. She has been afebrile, hemodynamically stable. White count 11.2., Creatinine 0.62. AST 55 and alkaline phosphatase 139. Lipase was 14. Urinalysis clear. There was concern for a change in the drainage from her J-tube site as well as increase edema, firmness, tenderness and redness. General surgery consult was also added. CAT scan of the abdomen and pelvis with contrast revealed J-tube noted in the left nickolas-abdomen. Small fluid collection at the subcutis level II.1 x 1.4 cm May reflect seroma or developing abscess. Wound culture has been obtained and patient started on Zosyn. Patient states that she takes very little oral nutrition.. Review of Systems Constitutional: Reports anorexia, Reports fatigue, Reports poor appetite, Denies chills, Denies fever, Denies lethargy Ears, nose, mouth and throat: Denies dental pain, Denies nasal congestion, Denie s nasal discharge, Denies vertigo Cardiovascular: Denies decreased exercise tolerance, Denies dyspnea on exertion, Denies edema, Denies leg edema, Denies lightheadedness, Denies shortness of breath, Denies syncope Respiratory: Reports hemoptysis, Reports home oxygen, Reports wheezing, Denies cough, Denies cough with sputum, Denies dyspnea, Denies excessive sputum Gastrointestinal: Reports loss of appetite, Reports nausea, Denies abdominal pain, Denies diarrhea, Denies vomiting Genitourinary: Denies dysuria, Denies urgency, Denies urinary frequency Musculoskeletal: Denies frequent falls, Denies gait dysfunction, Denies muscle weakness, Denies myalgias Integumentary: Reports wounds, Denies pruritus, Denies rash Neurological: Denies change in mentation, Denies change in speech, Denies confusion, Denies numbness, Denies weakness Psychiatric: Denies anxiety, Denies depression Endocrine: Denies fatigue, Denies weight change Past Medical History Past Medical History: GERD/Reflux, Pulmonary Embolus (PE), Thyroid Disorder Additional Past Medical History / Comment(s): Idiopathic gastroparesis, takes little in orally-has J tube for feedings,R pulmonary embolism , pancreatitis, hypothyroid, chronic anemia, sinus problems, migraine, dvt -2018. 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 No experience. 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 No tobacco alcohol or drug use. 3 dogs two cats in the home Smoking Status: Never smoker Past Alcohol Use History: None Reported Past Drug Use History: None Reported - Past Family History Father Family Medical History: Hypertension Additional Family Medical History / Comment(s): DAD IS 56 AND IN [facility] Mother Additional Family Medical History / Comment(s): MOM IS 56 AND IN [place] [facility] Medications and Allergies Home Medications Medication Instructions Recorded Confirmed Type Lansoprazole [Prevacid] 30 mg PO BID 02/02/18 12/09/18 History Montelukast Chew [Singulair] 10 mg PO DAILY 02/02/18 12/09/18 History Topiramate [Trokendi Xr] 50 mg PO DAILY 07/18/18 12/09/18 History Scopolamine 1.5MG/72Hr Patch 1 patch TRANSDERM Q72H #10 patch 07/31/18 12/09/18 Rx [TransDerm Scop] Apixaban [Eliquis] 5 mg PO BID 08/21/18 12/09/18 History Ondansetron Odt [Zofran ODT] 8 mg PO Q8HR PRN 10/06/18 12/09/18 History Promethazine HCl [Phenergan Syrup] 12.5 mg PO Q6HR PRN 10/06/18 12/09/18 History Thyroid,Pork [[place] Thyroid] 60 mg PO Q48H 10/06/18 12/09/18 History Thyroid,Pork [[place] Thyroid] 90 mg PO Q48H 10/06/18 12/09/18 History Mupirocin Calcium [Bactroban 2% 1 applic TOPICAL TID 7 Days gm 10/19/18 12/09/18 Rx Cream] Prucalopride Succinate [Motegrity] 1 mg PO BID 10/19/18 12/09/18 History SUMAtriptan SUCCINATE [Imitrex] 100 mg PO DAILY PRN 10/19/18 12/09/18 History Allergies Allergy/AdvReac Type Severity Reaction Status Date / Time metoclopramide [From Reglan] AdvReac Mild jittery Verified 12/09/18 07:24 prochlorperazine AdvReac Mild JITTERY Verified 12/09/18 07:24 [From Compazine] Physical Exam Vitals: Vital Signs Temp Pulse Resp BP Pulse Ox 12/11/18 09:11 20 12/11/18 05:00 97.8 F 72 20 114/69 100 12/10/18 20:50 98.6 F 68 20 113/77 99 12/10/18 16:09 85 20 12/10/18 13:20 98.0 F 85 20 130/78 100 Intake and Output 12/10/18 12/11/18 12/11/18 22:59 06:59 14:59 Intake Total 100 Balance 100 Intake: Oral 100 Other: Voiding Method Toilet Toilet # Voids 3 Weight 74.2 kg GEN: This is an obese 38-year-old female. She is resting in bed appears to be comfortable and in no acute distress. HEENT: Anicteric conjunctiva are pink and moist nasal mucosa grossly intact without significant lesions, there is no thrush. Neck: The neck is supple without significant lymphadenopathy or thyromegaly. Right-sided external jugular IV site. No significant erythema, edema. Lungs: Good bilateral air entry without significant crackles or wheezing. There is no significant bronchial sounds. Heart: Regular rate and rhythm with an audible S1-S2, no S3 no S4. There is no significant murmur click or rub, PMI was nondisplaced. Abdomen: Positive bowel sounds soft and nontender without palpable masses or organomegaly. There was no guarding or rebound. J-tube in the mid left abdomen. Dressing has yellow bile color drainage and there is a purulent drainage on the left side of the tube. Area is firm to touch with edema, erythema and mild tenderness. Extremities: No pedal edema. Dorsalis pedis +2 bilaterally. Neuro: Awake alert oriented to person place and time. There are no acute new gross focal sensory motor deficits. Results Results: Laboratory Results WBC 11.2 k/uL (3.8-10.6) H 12/09/18 01:30 RBC 4.95 m/uL (3.80-5.40) 12/09/18 01:30 Hgb 12.9 gm/dL (11.4-16.0) 12/09/18 01:30 Hct 39.8 % (34.0-46.0) 12/09/18 01:30 MCV 80.4 fL (80.0-100.0) 12/09/18 01:30 MCH 26.0 pg (25.0-35.0) 12/09/18 01:30 MCHC 32.3 g/dL (31.0-37.0) 12/09/18 01:30 RDW 12.8 % (11.5-15.5) 12/09/18 01:30 Plt Count 322 k/uL (150-450) 12/09/18 01:30 Neutrophils % 69 % 12/09/18 01:30 Lymphocytes % 20 % 12/09/18 01:30 Monocytes % 6 % 12/09/18 01:30 Eosinophils % 3 % 12/09/18 01:30 Basophils % 0 % 12/09/18 01:30 Neutrophils # 7.8 k/uL (1.3-7.7) H 12/09/18 01:30 Lymphocytes # 2.3 k/uL (1.0-4.8) 12/09/18 01:30 Monocytes # 0.7 k/uL (0-1.0) 12/09/18 01:30 Eosinophils # 0.3 k/uL (0-0.7) 12/09/18 01:30 Basophils # 0.0 k/uL (0-0.2) 12/09/18 01:30 Sodium 139 mmol/L (137-145) 12/09/18 01:30 Potassium 3.9 mmol/L (3.5-5.1) 12/09/18 01:30 Chloride 108 mmol/L (98-107) H 12/09/18 01:30 Carbon Dioxide 21 mmol/L (22-30) L 12/09/18 01:30 Anion Gap 10 mmol/L 12/09/18 01:30 BUN 10 mg/dL (7-17) 12/09/18 01:30 Creatinine 0.62 mg/dL (0.52-1.04) 12/09/18 01:30 Est GFR (CKD-EPI)AfAm >90 (>60 ml/min/1.73 sqM) 12/09/18 01:30 Est GFR (CKD-EPI)NonAf >90 (>60 ml/min/1.73 sqM) 12/09/18 01:30 Glucose 85 mg/dL (74-99) 12/09/18 01:30 Calcium 9.3 mg/dL (8.4-10.2) 12/09/18 01:30 Total Bilirubin 0.3 mg/dL (0.2-1.3) 12/09/18 01:30 AST 27 U/L (14-36) 12/09/18 01:30 ALT 55 U/L (9-52) H 12/09/18 01:30 Alkaline Phosphatase 139 U/L (38-126) H 12/09/18 01:30 Total Protein 6.4 g/dL (6.3-8.2) 12/09/18 01:30 Albumin 3.8 g/dL (3.5-5.0) 12/09/18 01:30 Amylase 69 U/L (30-110) 12/09/18 01:30 Lipase 14 U/L (23-300) L 12/09/18 01:30 Urine Color Yellow 12/09/18 03:53 Urine Appearance Clear (Clear) 12/09/18 03:53 Urine pH 5.5 (5.0-8.0) 12/09/18 03:53 Ur Specific [place] 1.009 (1.001-1.035) 12/09/18 03:53 Urine Protein Negative (Negative) 12/09/18 03:53 Urine Glucose (UA) Negative (Negative) 12/09/18 03:53 Urine Ketones Negative (Negative) 12/09/18 03:53 Urine Blood Negative (Negative) 12/09/18 03:53 Urine Nitrite Negative (Negative) 12/09/18 03:53 Urine Bilirubin Negative (Negative) 12/09/18 03:53 Urine Urobilinogen <2.0 mg/dL (<2.0) 12/09/18 03:53 Ur Leukocyte Esterase Negative (Negative) 12/09/18 03:53 CBC & Chem 7: 12/09/18 01:30 12/09/18 01:30 Assessment and Plan Plan: This is a 38-year-old female presented to the hospital with nausea, vomiting and generalized abdominal pain with history of idiopathic gastroparesis. Patient has a J-tube in place and there is concern for seroma or abscess. Culture has been obtained. Patient started on Zosyn. General surgery on consult. Continue supportive care. Further recommendations patient presses. The above dictated assessment and findings were discussed with Dr. Guevara. The impression and plan of care have been directed as dictated. Melissa Moise nurse practitioner acting as scribe for Dr. Guevara.
[2018-12-11] MEDS: PIPERACILLIN-TAZOBACTAM 3.375 GM in SODIUM CHLORIDE 0.9% 100 ML IVPB SCH ×2 (15:12→23:40)
--- NOTE | 2018-12-11 16:58 | PN ---
PROGRESS NOTE DATE OF SERVICE: 12/10/2018 CHIEF COMPLAINT: Intractable nausea and vomiting, pain, swelling, induration and apparent cellulitis around jejunostomy tube site. HISTORY OF PRESENT ILLNESS: This lady has developed pain, redness and tenderness around the jejunostomy tube. She has had no fever or chills. PHYSICAL EXAMINATION: Her chest is clear. Cardiac exam is normal. The abdomen is soft and nontender. IMPRESSION: 1. Infection and cellulitis around jejunostomy tube. 2. Intractable nausea and vomiting secondary to gastroparesis. PLAN: 1. Infectious disease consult. 2. Culture of the drainage from the jejunostomy site. 3. Surgical consult. 4. The patient is requesting more frequent analgesics, even though we had a discussion about the necessity of trying to hold down or taper back. Her also has gotten into the discussion and wants her on more pain medication. I also discussed with the patient how she is handling her depression. She immediately started to cry, but refused a psychiatric visit. MMFOSTER / FLAKON: [id number] /
--- NOTE | 2018-12-11 17:19 | PN ---
PROGRESS NOTE CHIEF COMPLAINT: Infected left jejunostomy site. HISTORY OF PRESENT ILLNESS: This lady is still very uncomfortable, both from her gastroparesis and cellulitis of the abdominal wall. She has been seen by Surgery and is to be seen by Infectious Disease. PHYSICAL EXAMINATION: Chest is clear. Cardiac exam is normal. The area of cellulitis and induration around the jejunostomy site is quite intense. IMPRESSION: 1. Cellulitis, jejunostomy site, and possible abscess. 2. Gastroparesis. 3. Intractable vomiting and abdominal pain. 4. Depression. PLAN: We await further decisions from Infectious Disease and General Surgery. She was offered counseling for depression but refuses. MMODL / IJN: [id number] /
[2018-12-11 21:45] VITALS: RESP 18
--- NOTE | 2018-12-11 22:23 | P.CON ---
Consult Note - . Consult date: 12/11/18 Assessment/Plan:: This is a 52-[id number] female known to ID services from July 2008 admission which time she was seen for fevers secondary to prior IV site. Patient is Ab0 who has a several year history of intractable nausea and vomiting related to gastroparesis of an undetermined etiology. She has had extensive workup and care at outside tertiary medical centers including [facility], [facility] and soon to be [facility]. She's had interventions that have included the gastric pacemaker that was removed due to infection. She is on a clinical trial with Propulsid and is tube fed by the jejunostomy tube. She fortunately does not have wasting but does feel poorly. Patient had a recent hospitalization November 25 for abdominal pain with intractable nausea and vomiting. Patient was discharged home and came back within 8 hours and was readmitted. Patient is currently on tube feedings. She has been afebrile, hemodynamically stable. White count 11.2., Creatinine 0.62. AST 55 and alkaline phosphatase 139. Lipase was 14. Urinalysis clear. There was concern for a change in the drainage from her J-tube site as well as increase edema, firmness, tenderness and redness. General surgery consult was also added. CAT scan of the abdomen and pelvis with contrast revealed J-tube noted in the left nickolas-abdomen. Small fluid collection at the subcutis level II.1 x 1.4 cm May reflect seroma or developing abscess. Wound culture has been obtained and patient started on Zosyn. Patient states that she takes very little oral nutrition.. Please see the consult note is dictated by nurse practitioner Mrs. Melissa Moise. The patient has the chronic medical troubles of the idiopathic unremitting gastroparesis and has had multiple evaluations and interventions. Is having severe pain which is being relieved only with intravenous narcotic therapy. She is tolerating her tube feed which is at 40 mL an hour and pain currently is controlled. The abdominal site where the jejunostomy tube is does have evidence of scant purulent drainage and cultures have been obtained. Computed tomography scan reveals evidence of no surgically drainable abscess. The chlorhexidine dressing will be applied to the site to try to locally treat the current infection. All cultures are pending Zosyn has been started and will be escalated as possible. The source of patient's other significant medical troubles would consider reevaluation at [facility] if were not able to further meaningfully impact her gastrointestinal status. I agree with evaluation, assessment and plan as dictated by nurse practitioner Mrs. Melissa Moise.
[2018-12-12] MEDS: HYDROmorphone 1 MG/ML 1 ML SYRINGE IM PRN ×4 (00:33→10:22)
[2018-12-12] MEDS: diphenhydrAMINE 50 MG/ML 1 ML VIAL IVP PRN ×2 (00:35→07:06)
[2018-12-12] MEDS: PROMETHAZINE INJ 25 MG in SODIUM CHLORIDE 0.9% 50 ML IVPB PRN ×2 (04:11→11:56)
[2018-12-12 05:51] VITALS: BP 106/59; PULSE 57; TEMP 97.9
[2018-12-12] MEDS: SODIUM CHLORIDE 0.9% 1,000 ML IV SCH (06:05)
[2018-12-12] MEDS: THYROID, PORK 30 MG TAB PO SCH (06:07)
[2018-12-12] MEDS: PIPERACILLIN-TAZOBACTAM 3.375 GM in SODIUM CHLORIDE 0.9% 100 ML IVPB SCH (07:09)
[2018-12-12] MEDS: MONTELUKAST 5 MG CHEWABLE PO SCH (08:19)
[2018-12-12] MEDS: APIXABAN 5 MG TAB PO SCH (08:19)
[2018-12-12] MEDS: PREVACID 30 MG PO SCH (08:20)
[2018-12-12] MEDS: PRUCALOPRIDE SUCCINATE PO SCH (08:21)
[2018-12-12] MEDS: TROKENDI 50 MG PO SCH (08:21)
--- NOTE | 2018-12-12 11:59 | P.PN ---
Subjective Progress Note Date: 12/12/18 CHIEF COMPLAINT: infected J tube HISTORY OF PRESENT ILLNESS: Patient examined at the bedside. She reports improved tenderness and redness around J tube. Tolerating some oral intake. Tube feeding infusing. PHYSICAL EXAM: VITAL SIGNS: Reviewed. GENERAL: Well-developed in no acute distress. HEENT: No sclera icterus. Extraocular movements grossly intact. Moist buccal mucosa. Head is atraumatic, normocephalic. ABDOMEN: Soft. Nondistended. Nontender. J tube intact. SKIN: Erythema and swelling surrounding J tube insertion site-improved from yesterday. Area indurated with no palpable fluid collection. Small amount of purulent drainage. NEUROLOGIC: Alert and oriented. Cranial nerves II through XII grossly intact. ASSESSMENT: 1. Acute on chronic intractable nausea and vomiting 2. Cellulitis surrounding J-tube 3. Gastroparesis with history of J-tube placement PLAN: 1. Await cultures 2. Continue local wound care 3. Continue antibiotics. Infectious disease following Nurse practitioner note has been reviewed by physician. Signing provider agrees with the documented findings, assessment, and plan of care. Objective - Vital Signs Vital signs: Vital Signs Temp 97.9 F 12/12/18 05:20 Pulse 57 L 12/12/18 05:20 Resp 18 12/12/18 05:20 BP 106/59 12/12/18 05:20 Pulse Ox 98 12/12/18 05:20 Intake & Output 12/11/18 12/12/18 12/12/18 18:59 06:59 18:59 Intake Total 1200 Balance 1200 Weight 73.9 kg 73.9 kg Intake: Intake, IV Titration 1100 Amount Piperacillin-Tazobactam 3 100 .375 gm In Sodium Chloride 0.9% 100 ml @ 25 mls/hr IVPB Q8HR [facility] Rx# :[id number] Sodium Chloride 0.9% 1, 1000 000 ml @ 125 mls/hr IV . Q8H [facility]AN Rx#:[id number] Oral 100 Other: Voiding Method Toilet # Voids 3 1 - Labs CBC & Chem 7: 12/09/18 01:30 12/09/18 01:30 Labs: Microbiology - Last 24 Hours (Table) 12/11/18 09:10 Gram Stain - Preliminary Abdomen Wound Culture - Preliminary Gram Neg Bacilli 12/11/18 09:10 Anaerobic Culture - Preliminary Abdomen
--- NOTE | 2018-12-12 23:00 | P.PN ---
Subjective Progress Note Date: 12/12/18 This is a [id number] female known to ID services from July 2008 admission which time she was seen for fevers secondary to prior IV site. Patient is Ab0 who has a several year history of intractable nausea and vomiting related to gastroparesis of an undetermined etiology. She has had ext ensive workup and care at outside tertiary medical centers including [facility], [facility] and soon to be [facility]. She's had interventions that have included the gastric pacemaker that was removed due to infection. She is on a clinical trial with Propulsid and is tube fed by the jejunostomy tube. She fortunately does not have wasting but does feel poorly. Patient had a recent hospitalization November 25 for abdominal pain with intractable nausea and vomiting. Patient was discharged home and came back within 8 hours and was readmitted. Patient is currently on tube feedings. She has been afebrile, hemodynamically stable. White count 11.2., Creatinine 0.62. AST 55 and alkaline phosphatase 139. Lipase was 14. Urinalysis clear. There was concern for a change in the drainage from her J-tube site as well as increase edema, firmness, tenderness and redness. General surgery consult was also added. CAT scan of the abdomen and pelvis with contrast revealed J-tube noted in the left nickolas-abdomen. Small fluid collection at the subcutis level II.1 x 1.4 cm May reflect seroma or developing abscess. Wound culture has been obtained and patient started on Zosyn. Patient states that she takes very little oral nutrition.. 12/13/2018 patient is feeling somewhat better. The primary team is working for her discharge today her follow-up with her interventional pain physician after discharge. The purulent drainage from the G-tube site is much improved with topical therapy. Objective - Vital Signs Vital signs: Vital Signs Temp 97.9 F 12/12/18 05:20 Pulse 57 L 12/12/18 05:20 Resp 18 12/12/18 05:20 BP 106/59 12/12/18 05:20 Pulse Ox 98 12/12/18 05:20 Intake & Output 12/12/18 12/12/18 12/13/18 06:59 18:59 06:59 Weight 73.9 kg 73.9 kg Other: # Voids 1 - Exam GEN: This is an obese 38-year-old female. She is resting in bed appears to be comfortable and in no acute distress. HEENT: Anicteric conjunctiva are pink and moist nasal mucosa grossly intact without significant lesions, there is no thrush. Neck: The neck is supple without significant lymphadenopathy or thyromegaly. Right-sided external jugular IV site. No significant erythema, edema. Lungs: Good bilateral air entry without significant crackles or wheezing. There is no significant bronchial sounds. Heart: Regular rate and rhythm with an audible S1-S2, no S3 no S4. There is no significant murmur click or rub, PMI was nondisplaced. Abdomen: Positive bowel sounds soft and nontender without palpable masses or organomegaly. There was no guarding or rebound. J-tube in the mid left abdomen. Dressing has yellow bile color drainage and there is no improvement to the amount of purulent drainage from the G-tube site. Area is still mildly tender less firm no expressible purulence Extremities: No pedal edema. Dorsalis pedis +2 bilaterally. Neuro: Awake alert oriented to person place and time. - Labs CBC & Chem 7: 12/09/18 01:30 12/09/18 01:30 Labs: Microbiology - Last 24 Hours (Table) 12/11/18 09:10 Gram Stain - Preliminary Abdomen Wound Culture - Preliminary Gram Neg Bacilli Laboratory Results WBC 11.2 k/uL (3.8-10.6) H 12/09/18 01:30 RBC 4.95 m/uL (3.80-5.40) 12/09/18 01:30 Hgb 12.9 gm/dL (11.4-16.0) 12/09/18 01:30 Hct 39.8 % (34.0-46.0) 12/09/18 01:30 MCV 80.4 fL (80.0-100.0) 12/09/18 01:30 MCH 26.0 pg (25.0-35.0) 12/09/18 01:30 MCHC 32.3 g/dL (31.0-37.0) 12/09/18 01:30 RDW 12.8 % (11.5-15.5) 12/09/18 01:30 Plt Count 322 k/uL (150-450) 12/09/18 01:30 Neutrophils % 69 % 12/09/18 01:30 Lymphocytes % 20 % 12/09/18 01:30 Monocytes % 6 % 12/09/18 01:30 Eosinophils % 3 % 12/09/18 01:30 Basophils % 0 % 12/09/18 01:30 Neutrophils # 7.8 k/uL (1.3-7.7) H 12/09/18 01:30 Lymphocytes # 2.3 k/uL (1.0-4.8) 12/09/18 01:30 Monocytes # 0.7 k/uL (0-1.0) 12/09/18 01:30 Eosinophils # 0.3 k/uL (0-0.7) 12/09/18 01:30 Basophils # 0.0 k/uL (0-0.2) 12/09/18 01:30 Sodium 139 mmol/L (137-145) 12/09/18 01:30 Potassium 3.9 mmol/L (3.5-5.1) 12/09/18 01:30 Chloride 108 mmol/L (98-107) H 12/09/18 01:30 Carbon Dioxide 21 mmol/L (22-30) L 12/09/18 01:30 Anion Gap 10 mmol/L 12/09/18 01:30 BUN 10 mg/dL (7-17) 12/09/18 01:30 Creatinine 0.62 mg/dL (0.52-1.04) 12/09/18 01:30 Est GFR (CKD-EPI)AfAm >90 (>60 ml/min/1.73 sqM) 12/09/18 01:30 Est GFR (CKD-EPI)NonAf >90 (>60 ml/min/1.73 sqM) 12/09/18 01:30 Glucose 85 mg/dL (74-99) 12/09/18 01:30 Calcium 9.3 mg/dL (8.4-10.2) 12/09/18 01:30 Total Bilirubin 0.3 mg/dL (0.2-1.3) 12/09/18 01:30 AST 27 U/L (14-36) 12/09/18 01:30 ALT 55 U/L (9-52) H 12/09/18 01:30 Alkaline Phosphatase 139 U/L (38-126) H 12/09/18 01:30 Total Protein 6.4 g/dL (6.3-8.2) 12/09/18 01:30 Albumin 3.8 g/dL (3.5-5.0) 12/09/18 01:30 Amylase 69 U/L (30-110) 12/09/18 01:30 Lipase 14 U/L (23-300) L 12/09/18 01:30 Urine Color Yellow 12/09/18 03:53 Urine Appearance Clear (Clear) 12/09/18 03:53 Urine pH 5.5 (5.0-8.0) 12/09/18 03:53 Ur Specific Candia 1.009 (1.001-1.035) 12/09/18 03:53 Urine Protein Negative (Negative) 12/09/18 03:53 Urine Glucose (UA) Negative (Negative) 12/09/18 03:53 Urine Ketones Negative (Negative) 12/09/18 03:53 Urine Blood Negative (Negative) 12/09/18 03:53 Urine Nitrite Negative (Negative) 12/09/18 03:53 Urine Bilirubin Negative (Negative) 12/09/18 03:53 Urine Urobilinogen <2.0 mg/dL (<2.0) 12/09/18 03:53 Ur Leukocyte Esterase Negative (Negative) 12/09/18 03:53 Microbiology 12/11/18 09:10 Abdomen Gram Stain - Preliminary 12/11/18 09:10 Abdomen Wound Culture - Preliminary Gram Neg Bacilli 12/11/18 09:10 Abdomen Anaerobic Culture - Preliminary Assessment and Plan (1) Abdominal pain Status: Acute Code(s): R10.9 - UNSPECIFIED ABDOMINAL PAIN SNOMED Code(s): 60611292 (2) Jejunostomy tube present Narrative/Plan: The patient has the chronic medical troubles of the idiopathic unremitting gastroparesis and has had multiple evaluations and interventions. Is having severe pain which is being relieved only with intravenous narcotic therapy. She is tolerating her tube feed which is at 40 mL an hour and pain currently is controlled. The abdominal site where the jejunostomy tube is does have evidence of scant purulent drainage and cultures have been obtained. Computed tomography scan reveals evidence of no surgically drainable abscess. The chlorhexidine dressing will be applied to the site to try to locally treat the current infection. All cultures are pending Zosyn has been started and will be escalated as possible. The source of patient's other significant medical troubles would consider reevaluation at [facility] if were not able to further meaningfully impact her gastrointestinal status. 12/13/2018 the patient's status has actually improved she is being discharged home. Pain medications as per the pain management team. For antibiotic therapy will transition her to Levaquin which is a suspension to take 500 mg daily for 7 days the gram-negative infection of the jejunostomy site. Home care to help with CHG patch treatment to the infected jaded ostomy site at this time. Status: Chronic Code(s): Z93.4 - OTHER ARTIFICIAL OPENINGS OF GASTROINTESTINAL TRACT STATUS SNOMED Code(s): 082759160
--- NOTE | 2018-12-13 07:23 | DS ---
DISCHARGE SUMMARY CHIEF COMPLAINT: Intractable abdominal pain, vomiting. HISTORY OF PRESENT ILLNESS AND PHYSICAL EXAM: Details of this lady's history and physical can be found in the initial workup. LABORATORY STUDIES: While she was in a hospital she had laboratory studies, details of which can be found in laboratory section of her chart. COURSE IN HOSPITAL: After admission she was placed on bedrest, started on intravenous fluids and analgesics once again. When she was in this time, she began to develop pain, redness and swelling around the jejunostomy site and it was felt that she had a wound infection. She was seen by Surgery who felt that their services were not necessary. She was started on IV antibiotics by Infectious Disease and she did well. It was felt that she could be discharged on the and she will go home once again on her usual activity, diet and medication and will set her up with home care. On , care will come to her house. FINAL DIAGNOSES: 1. Gastroparesis. 2. Intractable abdominal pain. 3. Intractable nausea and vomiting. 4. Cellulitis around jejunostomy site. 5. Depression. OPERATIONS: None. CONSULTATIONS: Infectious Disease and Surgery. She refused psych consult. MMODL / IJN: [id number] /
== END 2018-12-12 14:43 | disposition home health service (06) | DRG 394 ==
LOC: EC 00:36 → 4MS4W 06:21 → OBSVTOIN 12-12 08:53
PROVIDERS: ADMIT Family Medicine; ATTEND Family Medicine
DX: K94.12 Enterostomy infection (principal); L03.311 Cellulitis of abdominal wall; F11.20 Opioid dependence, uncomplicated; Z00.6 Encounter for examination for normal comparison and control in clinical research program; E03.9 Hypothyroidism, unspecified; F32.9 Major depressive disorder, single episode, unspecified; K21.9 Gastro-esophageal reflux disease without esophagitis; K31.84 Gastroparesis; Z79.01 Long term (current) use of anticoagulants; Z79.899 Other long term (current) drug therapy; Z82.49 Family history of ischemic heart disease and other diseases of the circulatory system; Z86.711 Personal history of pulmonary embolism; B96.1 Klebsiella pneumoniae [K. pneumoniae] as the cause of diseases classified elsewhere; B96.20 Unspecified Escherichia coli [E. coli] as the cause of diseases classified elsewhere; B96.5 Pseudomonas (aeruginosa) (mallei) (pseudomallei) as the cause of diseases classified elsewhere; Z88.8 Allergy status to other drugs, medicaments and biological substances; Z79.890 Hormone replacement therapy
CPT/HCPCS: 36415; 74177; 80053; 81003; 82150; 83690; 85025; 87070; 87075; 87077; 87186; 87205; 96361; 96365; 96375; 96376; 99285

== ENCOUNTER 2018-12-13 23:18 | Emergency (ER) | payer BC ==
[2018-12-13] MEDS ORDERED: SODIUM CHLORIDE 0.9% 1,000 ML IV STA (23:42)
[2018-12-13] MEDS ORDERED: LORazepam 2 MG/ML INJ IV STA (23:42)
[2018-12-13 23:59] LABS: Basophils # (A) 0.1 k/uL (0-0.2); Basophils % (A) 0 %; Eosinophils # (A) 0.3 k/uL (0-0.7); Eosinophils % (A) 2 %; HGB 14.2 gm/dL (11.4-16.0); Lymphocytes # (A) 3.4 k/uL (1.0-4.8); Lymphocytes % (A) 32 %; MCH 27.7 pg (25.0-35.0); MCHC 34.6 g/dL (31.0-37.0); MCV 80.1 fL (80.0-100.0); Mean Platelet Volume 6.6; Monocytes # (A) 0.6 k/uL (0-1.0); Monocytes % (A) 5 %; Neutrophils # (A) 6.2 k/uL (1.3-7.7); Neutrophils % (A) 58 %; Platelet Count 376 k/uL (150-450); RBC 5.12 m/uL (3.80-5.40); RDW 14.6 % (11.5-15.5); WBC 10.7 k/uL (3.8-10.6)
[2018-12-14 00:09] VITALS: RESP 16
[2018-12-14 00:09] LABS: African American GFR (CKD) >90 (>60 ml/min/1.73 sqM); Albumin 4.1 g/dL (3.5-5.0); Anion Gap 14 mmol/L; Calcium 9.9 mg/dL (8.4-10.2); Carbon Dioxide 18 mmol/L (22-30); Chloride 108 mmol/L (98-107); Creatine Kinase 59 U/L (30-135); Glucose 88 mg/dL (74-99); Sodium 140 mmol/L (137-145); Total Bilirubin 0.3 mg/dL (0.2-1.3); Total Protein 6.8 g/dL (6.3-8.2)
[2018-12-14 00:12] LABS: Blood Urea Nitrogen 14 mg/dL (7-17); Potassium 3.6 mmol/L (3.5-5.1)
[2018-12-14 00:13] LABS: ALT 169 U/L (9-52); AST 179 U/L (14-36); Alkaline Phosphatase 217 U/L (38-126)
--- NOTE | 2018-12-14 00:41 | ED ---
Seizure HPI - General Chief Complaint: Seizure Stated Complaint: Seizure Source: patient, family, EMS Mode of arrival: EMS Limitations: no limitations - History of Present Illness Initial Comments: The patient is a 32 year old female who presents to the emergency Department with possible new onset seizure. The history is reported by the patient's . He states that the patient was at home cleaning her J tube. It was clogged and so she did deflate the balloon. It was at that time that the patient began complaining that she was dizzy. states that her eyes rol led back in her head and she began having general clonic tonic seizure activity. This did last approximately 3 minutes. The patient did bite her tongue. There is no loss of bowel or bladder function. The patient did not sustain any injuries from her seizure as the patient's did lower her to the ground. No history of seizure-like activity in the past. No fevers or chills. The patient denies any headache or vision changes. No unilateral numbness or weakness. She denies any chest pain, palpitations or shortness of breath prior to the incident. Her no other alleviating, the dictating or modifying factors - Related Data Home Medications Medication Instructions Recorded Confirmed Lansoprazole [Prevacid] 30 mg PO BID 02/02/18 12/13/18 Montelukast Chew [Singulair] 10 mg PO DAILY 02/02/18 12/13/18 Topiramate [Trokendi Xr] 50 mg PO DAILY 07/18/18 12/13/18 Apixaban [Eliquis] 5 mg PO BID 08/21/18 12/13/18 Ondansetron Odt [Zofran ODT] 8 mg PO Q8HR PRN 10/06/18 12/13/18 Promethazine HCl [Phenergan Syrup] 12.5 mg PO Q6HR PRN 10/06/18 12/13/18 Thyroid,Pork [[place] Thyroid] 60 mg PO Q48H 10/06/18 12/13/18 Thyroid,Pork [[place] Thyroid] 90 mg PO Q48H 10/06/18 12/13/18 Prucalopride Succinate [Motegrity] 1 mg PO BID 10/19/18 12/13/18 SUMAtriptan SUCCINATE [Imitrex] 100 mg PO DAILY PRN 10/19/18 12/13/18 Previous Rx's Medication Instructions Recorded Scopolamine 1.5MG/72Hr Patch 1 patch TRANSDERM Q72H #10 patch 07/31/18 [TransDerm Scop] Mupirocin Calcium [Bactroban 2% 1 applic TOPICAL TID 7 Days gm 10/19/18 Cream] Levofloxacin Oral Soln [Levaquin 500 mg PO DAILY #200 ml 12/12/18 Oral Soln] Allergies Allergy/AdvReac Type Severity Reaction Status Date / Time metoclopramide [From Reglan] AdvReac Mild jittery Verified 12/13/18 23:33 prochlorperazine AdvReac Mild JITTERY Verified 12/13/18 23:33 [From Compazine] Review of Systems ROS Statement: Those systems with pertinent positive or pertinent negative responses have been documented in the HPI. ROS Other: All systems not noted in ROS Statement are negative. Past Medical History Past Medical History: GERD/Reflux, Pulmonary Embolus (PE), Thyroid Disorder Additional Past Medical History / Comment(s): Idiopathic gastroparesis, takes little in orally-has J tube for feedings,R pulmonary embolism -2017, pancreatitis, hypothyroid, chronic anemia, sinus problems, migraine, dvt -2018. 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 J tube replaced Past Anesthesia/Blood Transfusion Reactions: No Reported Reaction Past Psychological History: Depression Smoking Status: Never smoker Past Alcohol Use History: None Reported Past Drug Use History: None Reported - Past Family History Father Family Medical History: Hypertension Additional Family Medical History / Comment(s): DAD IS 56 AND IN [facility] Mother Additional Family Medical History / Comment(s): MOM IS 56 AND IN [facility] General Exam Limitations: no limitations Course Vital Signs 12/13/18 12/14/18 12/14/18 23:29 00:06 02:05 Temperature 98.4 F 98 F Pulse Rate 105 H 85 95 Respiratory 22 16 16 Rate Blood Pressure 148/93 127/84 121/73 O2 Sat by Pulse 97 100 100 Oximetry Medical Decision Making - Medical Decision Making Upon arrival the patient is placed in room 9. She is hooked up to continuous pulse ox and cardiac monitoring. A 12-lead EKG is performed the patient. Laboratory studies were conducted patient provided a urine sample. The patient was sent for CT of her brain. The patient's J-tube did fall out or seizure episode. She does bring it to the emergency room with her. I do attempt to obtain a new tube however he only of 14 or 16-Irish tubes in the patient does have a 12-Irish. I did replace the patient's own tube after I did sterilize it and flush it. I then shot a peg a gram which demonstrates good contrast within the bowel. I did discuss results the laboratory studies with the patient at bedside. She has return to 4 baseline mentation. The patient feels comfortable going home at this time. She does have a pain with her primary care physician Adrianna tomorrow. She also has a neurologist that she sees. She is instructed that she'll need further workup to include EEG and MRI. The patient is a new or worsening symptoms she should return to [facility]. The patient was discharged home stable condition - Lab Data Result diagrams: 12/13/18 23:40 12/13/18 23:40 Lab Results 12/13/18 12/13/18 12/14/18 Range/Units 23:40 23:40 00:17 WBC 10.7 H (3.8-10.6) k/uL RBC 5.12 (3.80-5.40) m/uL Hgb 14.2 (11.4-16.0) gm/dL Hct 41.0 (34.0-46.0) % MCV 80.1 (80.0-100.0) fL MCH 27.7 (25.0-35.0) pg MCHC 34.6 (31.0-37.0) g/dL RDW 14.6 (11.5-15.5) % Plt Count 376 (150-450) k/uL Neutrophils % 58 % Lymphocytes % 32 % Monocytes % 5 % Eosinophils % 2 % Basophils % 0 % Neutrophils # 6.2 (1.3-7.7) k/uL Lymphocytes # 3.4 (1.0-4.8) k/uL Monocytes # 0.6 (0-1.0) k/uL Eosinophils # 0.3 (0-0.7) k/uL Basophils # 0.1 (0-0.2) k/uL Sodium 140 (137-145) mmol/L Potassium 3.6 (3.5-5.1) mmol/L Chloride 108 H (98-107) mmol/L Carbon Dioxide 18 L (22-30) mmol/L Anion Gap 14 mmol/L BUN 14 (7-17) mg/dL Creatinine 0.74 (0.52-1.04) mg/dL Est GFR (CKD-EPI)AfAm >90 (>60 ml/min/1.73 sqM) Est GFR (CKD-EPI)NonAf >90 (>60 ml/min/1.73 sqM) Glucose 88 (74-99) mg/dL Plasma Lactic Acid Frank 3.1 H* (0.7-2.0) mmol/L Calcium 9.9 (8.4-10.2) mg/dL Total Bilirubin 0.3 (0.2-1.3) mg/dL AST 179 H (14-36) U/L ALT 169 H (9-52) U/L Alkaline Phosphatase 217 H (38-126) U/L Creatine Kinase 59 (30-135) U/L Total Protein 6.8 (6.3-8.2) g/dL Albumin 4.1 (3.5-5.0) g/dL Urine Color Urine Appearance (Clear) Urine pH (5.0-8.0) Ur Specific Anita (1.001-1.035) Urine Protein (Negative) Urine Glucose (UA) (Negative) Urine Ketones (Negative) Urine Blood (Negative) Urine Nitrite (Negative) Urine Bilirubin (Negative) Urine Urobilinogen (<2.0) mg/dL Ur Leukocyte Esterase (Negative) Urine RBC (0-5) /hpf Urine WBC (0-5) /hpf Ur Squamous Epith Cells (0-4) /hpf Urine Mucus (None) /hpf Urine HCG, Qual (Not Detectd) 12/14/18 12/14/18 Range/Units 00:45 00:45 WBC (3.8-10.6) k/uL RBC (3.80-5.40) m/uL Hgb (11.4-16.0) gm/dL Hct (34.0-46.0) % MCV (80.0-100.0) fL MCH (25.0-35.0) pg MCHC (31.0-37.0) g/dL RDW (11.5-15.5) % Plt Count (150-450) k/uL Neutrophils % % Lymphocytes % % Monocytes % % Eosinophils % % Basophils % % Neutrophils # (1.3-7.7) k/uL Lymphocytes # (1.0-4.8) k/uL Monocytes # (0-1.0) k/uL Eosinophils # (0-0.7) k/uL Basophils # (0-0.2) k/uL Sodium (137-145) mmol/L Potassium (3.5-5.1) mmol/L Chloride (98-107) mmol/L Carbon Dioxide (22-30) mmol/L Anion Gap mmol/L BUN (7-17) mg/dL Creatinine (0.52-1.04) mg/dL Est GFR (CKD-EPI)AfAm (>60 ml/min/1.73 sqM) Est GFR (CKD-EPI)NonAf (>60 ml/min/1.73 sqM) Glucose (74-99) mg/dL Plasma Lactic Acid Frank (0.7-2.0) mmol/L Calcium (8.4-10.2) mg/dL Total Bilirubin (0.2-1.3) mg/dL AST (14-36) U/L ALT (9-52) U/L Alkaline Phosphatase (38-126) U/L Creatine Kinase (30-135) U/L Total Protein (6.3-8.2) g/dL Albumin (3.5-5.0) g/dL Urine Color Yellow Urine Appearance Cloudy H (Clear) Urine pH 6.5 (5.0-8.0) Ur Specific Anita 1.022 (1.001-1.035) Urine Protein Trace H (Negative) Urine Glucose (UA) Negative (Negative) Urine Ketones Negative (Negative) Urine Blood Negative (Negative) Urine Nitrite Negative (Negative) Urine Bilirubin Negative (Negative) Urine Urobilinogen 2.0 (<2.0) mg/dL Ur Leukocyte Esterase Moderate H (Negative) Urine RBC 3 (0-5) /hpf Urine WBC 17 H (0-5) /hpf Ur Squamous Epith Cells 33 H (0-4) /hpf Urine Mucus Rare H (None) /hpf Urine HCG, Qual Not Detected (Not Detectd) - EKG Data EKG Comments: EKG demonstrates normal sinus rhythm with ventricular rate of 83. AL interval 166. QRS 84. QTC of 474. There is no acute ST segment elevations or depressions concerning for ischemic changes Disposition Clinical Impression: New onset seizure Disposition: HOME SELF-CARE Condition: Stable Instructions (If sedation given, give patient instructions): New-Onset Seizure in Adults (ED) Additional Instructions: Please follow-up at your scheduled appointment tomorrow. Return to the emergency department for any new or worsening symptoms Is patient prescribed a controlled substance at d/c from ED?: No Referrals: Wong Adame MD [Primary Care Provider] - 1-2 days Time of Disposition: 02:05
--- NOTE | 2018-12-14 01:52 | CT ---
EXAM: CT Head Without Intravenous Contrast CLINICAL HISTORY: ITS.REASON CT Reason: seizure TECHNIQUE: Axial computed tomography images of the head/brain without intravenous contrast. CTDI is 49.1 mGy and DLP is 1094.4 mGy-cm. This CT exam was performed using one or more of the following dose reduction techniques: automated exposure control, adjustment of the mA and/or kV according to patient size, and/or use of iterative reconstruction technique. COMPARISON: No relevant prior studies available. FINDINGS: Brain: No hemorrhage. No acute cortical infarct. No mass effect or midline shift. Ventricles: Unremarkable. Bones/joints: No acute fracture. Soft tissues: Unremarkable. Sinuses: Minimal sinus disease. Mastoid air cells: Unremarkable as visualized. IMPRESSION: No acute intracranial process.
--- NOTE | 2018-12-14 01:57 | XR ---
EXAM: XR Abdomen, 1 View CLINICAL HISTORY: ITS.REASON XR Reason: tube placement TECHNIQUE: Frontal supine view of the abdomen/pelvis. COMPARISON: 11/26/18. FINDINGS: Gastrointestinal tract: Prominent air-filled bowel loops noted, possible ileus or developing obstruction. Contrast opacification of bowel loops in the left abdomen. Percutaneous feeding tube is not well seen. Bones/joints: Stable. Other: IUD and cholecystectomy clips. IMPRESSION: 1. Prominent air-filled bowel loops noted, possible ileus or developing obstruction. 2. Contrast opacification of bowel loops in the left abdomen.
[2018-12-14 02:07] VITALS: BP 121/73; PULSE 95; TEMP 98
[2018-12-14 02:27] LABS: Appearance,Urine Cloudy (Clear); Bilirubin,Urine Negative (Negative); Blood,Urine Negative (Negative); Color,Urine Yellow; Glucose,Urine (UA) Negative (Negative); Ketones,Urine Negative (Negative); Leukocyte Esterase,Urine Moderate (Negative); Mucus,Urine Rare /hpf; Nitrite,Urine Negative (Negative); PH, Urine 6.5 (5.0-8.0); Protein,Urine Trace (Negative); RBC,Urine 3 /hpf (0-5); Specific Gravity,Urine 1.022 (1.001-1.035); Squamous Epithelial Cell,Urine 33 /hpf (0-4); WBC,Urine 17 /hpf (0-5)
== END 2018-12-14 02:16 | disposition home or self-care (01) ==
LOC: EC 23:18
DX: R56.9 Unspecified convulsions (principal); K21.9 Gastro-esophageal reflux disease without esophagitis; E03.9 Hypothyroidism, unspecified; K31.84 Gastroparesis; Z93.4 Other artificial openings of gastrointestinal tract status; D64.9 Anemia, unspecified; G43.909 Migraine, unspecified, not intractable, without status migrainosus; Z79.01 Long term (current) use of anticoagulants; Z79.890 Hormone replacement therapy; Z79.899 Other long term (current) drug therapy; Z90.49 Acquired absence of other specified parts of digestive tract; Z88.8 Allergy status to other drugs, medicaments and biological substances; Z86.711 Personal history of pulmonary embolism
CPT/HCPCS: 36415; 93005; 80053; 82550; 83605; 85025; 81001; 81025; 74018; 70450; 99285; 96374; 96361 ×2; J2060; Q9967; 99284

== ENCOUNTER 2019-01-14 13:41 | Emergency (ER) | payer BC ==
[2019-01-14 13:53] VITALS: TEMP 98.7
[2019-01-14] MEDS ORDERED: ONDANSETRON 4 MG/2 ML VIAL IVP STA (14:11)
[2019-01-14] MEDS ORDERED: SODIUM CHLORIDE 0.9% 1,000 ML IV STA (14:11)
[2019-01-14] MEDS ORDERED: HYDROmorphone 1 MG/ML 1 ML SYRINGE IVP STA (14:11)
--- NOTE | 2019-01-14 14:17 | ED ---
General Adult HPI - General Chief complaint: Abdominal Pain Stated complaint: Abd pain Time Seen by Provider: 01/14/19 14:04 Source: patient, RN notes reviewed, old records reviewed Mode of arrival: ambulatory Limitations: no limitations - History of Present Illness Initial comments: 38 old female patient past medical history significant for gastroparesis, chronic abdominal pain, history of pulmonary embolism, status post cholecystectomy presented the chief complaint of abdominal pain. Patient reports that this abdominal pain is in her right lower quadrant, right upper quadrant. Patient also reports that there is some radiation to back. Patient reports that this feels somewhat similar to when she has had pancreatitis in the past. Patient does also report that this does feel similar to the chronic abdominal pain and she expresses on regular basis. States that this is not significantly worse or worrisome. Patient has had nausea vomiting as well as this abdominal pain for the last 4 days. Denies any chest pain or shortness of breath. Patient is anticoagulated on Lovenox. Systemic: Pt denies fatigue, fever/chills, rash. Pt denies weakness, night sweats, weight loss. Neuro: Pt denies headache, visual disturbances, syncope or pre-syncope. HEENT: Pt denies ocular discharge or irritation, otalgia, rhinorrhea, pharyngitis or notable lymphadenopathy. Cardiopulmonary: Pt denies chest pain, SOB, heart palpitations, dyspnea on exertion. : Pt denies dysuria, burning w/ urination, frequency/urgency. Denies new onset urinary or bowel incontinence. MSK: Pt denies myalgia, loss of strength or function in extremities. Neuro: Pt denies new onset weakness, paresthesias. - Related Data Home Medications Medication Instructions Recorded Confirmed Lansoprazole [Prevacid] 30 mg PO BID 02/02/18 01/14/19 Montelukast Chew [Singulair] 10 mg PO DAILY 02/02/18 01/14/19 Topiramate [Trokendi Xr] 50 mg PO DAILY 07/18/18 01/14/19 Ondansetron Odt [Zofran ODT] 8 mg PO Q8HR PRN 10/06/18 01/14/19 Promethazine HCl [Phenergan Syrup] 12.5 mg PO Q6HR PRN 10/06/18 01/14/19 Thyroid,Pork [[place] Thyroid] 60 mg PO Q48H 10/06/18 01/14/19 Thyroid,Pork [[place] Thyroid] 90 mg PO Q48H 10/06/18 01/14/19 SUMAtriptan SUCCINATE [Imitrex] 100 mg PO DAILY PRN 10/19/18 01/14/19 Enoxaparin [Lovenox] 150 mg SQ DAILY 01/14/19 01/14/19 Prucalopride Succinate [Motegrity] 2 mg PO DAILY 01/14/19 01/14/19 Previous Rx's Medication Instructions Recorded Scopolamine 1.5MG/72Hr Patch 1 patch TRANSDERM Q72H #10 patch 07/31/18 [TransDerm Scop] Mupirocin Calcium [Bactroban 2% 1 applic TOPICAL TID 7 Days gm 10/19/18 Cream] Allergies Allergy/AdvReac Type Severity Reaction Status Date / Time metoclopramide [From Reglan] AdvReac Mild jittery Verified 01/14/19 14:03 prochlorperazine AdvReac Mild JITTERY Verified 01/14/19 14:03 [From Compazine] Review of Systems ROS Statement: Those systems with pertinent positive or pertinent negative responses have been documented in the HPI. ROS Other: All systems not noted in ROS Statement are negative. Past Medical History Past Medical History: GERD/Reflux, Pulmonary Embolus (PE), Thyroid Disorder Additional Past Medical History / Comment(s): Idiopathic gastroparesis, takes little in orally-has J tube for feedings,R pulmonary embolism -2017, pancreatitis, hypothyroid, chronic anemia, sinus problems, migraine, dvt -2018. 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 J tube replaced Past Anesthesia/Blood Transfusion Reactions: No Reported Reaction Past Psychological History: Depression Smoking Status: Never smoker Past Alcohol Use History: None Reported Past Drug Use History: None Reported - Past Family History Father Family Medical History: Hypertension Additional Family Medical History / Comment(s): DAD IS 56 AND IN [facility] Mother Additional Family Medical History / Comment(s): MOM IS 56 AND IN [facility] General Exam - General Exam Comments Initial Comments: Constitutional: NAD, AOX3, Pt has pleasant affect. HEENT: NC/AT, trachea midline, neck supple, no lymphadenopathy. Posterior pharynx non erythematous, without exudates. External ears appear normal, without discharge. Mucous membranes moist. Eyes PERRLA, EOM intact. There is no scleral icterus. No pallor noted. Cardiopulmonary: RRR, no murmurs, rubs or gallops, no JVD noted. Lungs CTAB in anterior and posterior mi. No peripheral edema. Abdominal exam: Abdomen soft and non-distended. Abdomen mildly tender to palpation in right lower quadrant, right upper quadrant region. No guarding or rigidity. No other areas of abdominal tenderness.. Bowel sounds active in LLQ. No hepatosplenomegaly. No ecchymosis Neuro: CN II-XII grossly intact. No nuchal rigidity. No raccon eyes, no mahoney sign, no hemotympanum. No cervical spinal tenderness. MSK: No posterior calf tenderness bilaterally, homans sign negative bilaterally. Posterior tibialis and radial pulse +2 bilaterally. Sensation intact in upper and lower extremities. Full active ROM in upper and lower extremities, 5/5 stregnth. No skin changes. Limitations: no limitations Course Vital Signs 01/14/19 13:51 Temperature 98.7 F Pulse Rate 103 H Respiratory 18 Rate Blood Pressure 122/74 O2 Sat by Pulse 99 Oximetry Medical Decision Making - Medical Decision Making 38 old female patient past medical history significant for gastroparesis, chronic abdominal pain, history of pulmonary embolism, status post cholecystec harris presented the chief complaint of abdominal pain. Patient reports that this abdominal pain is in her right lower quadrant, right upper quadrant. Patient also reports that there is some radiation to back. Patient reports that this feels somewhat similar to when she has had pancreatitis in the past. Patient does also report that this does feel similar to the chronic abdominal pain and she expresses on regular basis. States that this is not significantly worse or worrisome. Patient has had nausea vomiting as well as this abdominal pain for the last 4 days. Denies any chest pain or shortness of breath. Patient is anticoagulated on Lovenox. Patient vital signs stable, afebrile. Physical exam displayed: Abdomen soft and non-distended. Abdomen mildly tender to palpation in right lower quadrant, right upper quadrant region. No guarding or rigidity. No other areas of abdominal tenderness.. Bowel sounds active in LLQ. No hepatosplenomegaly. No skin changes. No ecchymosis laboratory investigations nonimmpressive. Ultrasound of right lower quadrant display any signs of appendi citis. Patient is feeling much improved. Offered further investigations the patient including advanced imaging. Patient declined. States that the symptoms feel similar to what she is experiencing in the past. Patient prefers be discharged, will monitor symptoms. Will follow-up with primary care provider on Tuesday. Case discussed with Dr. Chapin. - Lab Data Result diagrams: 01/14/19 14:20 01/14/19 14:20 Lab Results 01/14/19 01/14/19 01/14/19 Range/Units 14:20 14:20 14:20 WBC 9.3 (3.8-10.6) k/uL RBC 5.37 (3.80-5.40) m/uL Hgb 14.4 (11.4-16.0) gm/dL Hct 45.3 (34.0-46.0) % MCV 84.4 (80.0-100.0) fL MCH 26.8 (25.0-35.0) pg MCHC 31.8 (31.0-37.0) g/dL RDW 13.5 (11.5-15.5) % Plt Count 380 (150-450) k/uL Neutrophils % 77 % Lymphocytes % 17 % Monocytes % 4 % Eosinophils % 0 % Basophils % 1 % Neutrophils # 7.2 (1.3-7.7) k/uL Lymphocytes # 1.5 (1.0-4.8) k/uL Monocytes # 0.4 (0-1.0) k/uL Eosinophils # 0.0 (0-0.7) k/uL Basophils # 0.0 (0-0.2) k/uL Sodium 142 (137-145) mmol/L Potassium 4.1 (3.5-5.1) mmol/L Chloride 111 H (98-107) mmol/L Carbon Dioxide 22 (22-30) mmol/L Anion Gap 9 mmol/L BUN 10 (7-17) mg/dL Creatinine 0.62 (0.52-1.04) mg/dL Est GFR (CKD-EPI)AfAm >90 (>60 ml/min/1.73 sqM) Est GFR (CKD-EPI)NonAf >90 (>60 ml/min/1.73 sqM) Glucose 89 (74-99) mg/dL Plasma Lactic Acid Frank (0.7-2.0) mmol/L Calcium 9.8 (8.4-10.2) mg/dL Total Bilirubin 0.3 (0.2-1.3) mg/dL AST 18 (14-36) U/L ALT 33 (9-52) U/L Alkaline Phosphatase 141 H (38-126) U/L Total Protein 7.2 (6.3-8.2) g/dL Albumin 4.3 (3.5-5.0) g/dL Lipase 68 (23-300) U/L Urine Color Urine Appearance (Clear) Urine pH (5.0-8.0) Ur Specific [place] (1.001-1.035) Urine Protein (Negative) Urine Glucose (UA) (Negative) Urine Ketones (Negative) Urine Blood (Negative) Urine Nitrite (Negative) Urine Bilirubin (Negative) Urine Urobilinogen (<2.0) mg/dL Ur Leukocyte Esterase (Negative) Urine RBC (0-5) /hpf Urine WBC (0-5) /hpf Ur Squamous Epith Cells (0-4) /hpf Urine Mucus (None) /hpf Urine HCG, Qual Not Detected (Not Detectd) 01/14/19 01/14/19 Range/Units 14:20 14:20 WBC (3.8-10.6) k/uL RBC (3.80-5.40) m/uL Hgb (11.4-16.0) gm/dL Hct (34.0-46.0) % MCV (80.0-100.0) fL MCH (25.0-35.0) pg MCHC (31.0-37.0) g/dL RDW (11.5-15.5) % Plt Count (150-450) k/uL Neutrophils % % Lymphocytes % % Monocytes % % Eosinophils % % Basophils % % Neutrophils # (1.3-7.7) k/uL Lymphocytes # (1.0-4.8) k/uL Monocytes # (0-1.0) k/uL Eosinophils # (0-0.7) k/uL Basophils # (0-0.2) k/uL Sodium (137-145) mmol/L Potassium (3.5-5.1) mmol/L Chloride (98-107) mmol/L Carbon Dioxide (22-30) mmol/L Anion Gap mmol/L BUN (7-17) mg/dL Creatinine (0.52-1.04) mg/dL Est GFR (CKD-EPI)AfAm (>60 ml/min/1.73 sqM) Est GFR (CKD-EPI)NonAf (>60 ml/min/1.73 sqM) Glucose (74-99) mg/dL Plasma Lactic Acid Frank 1.1 (0.7-2.0) mmol/L Calcium (8.4-10.2) mg/dL Total Bilirubin (0.2-1.3) mg/dL AST (14-36) U/L ALT (9-52) U/L Alkaline Phosphatase (38-126) U/L Total Protein (6.3-8.2) g/dL Albumin (3.5-5.0) g/dL Lipase (23-300) U/L Urine Color Yellow Urine Appearance Cloudy H (Clear) Urine pH 8.0 (5.0-8.0) Ur Specific [place] 1.026 (1.001-1.035) Urine Protein Trace H (Negative) Urine Glucose (UA) Negative (Negative) Urine Ketones Negative (Negative) Urine Blood Negative (Negative) Urine Nitrite Negative (Negative) Urine Bilirubin Negative (Negative) Urine Urobilinogen 2.0 (<2.0) mg/dL Ur Leukocyte Esterase Negative (Negative) Urine RBC 3 (0-5) /hpf Urine WBC 1 (0-5) /hpf Ur Squamous Epith Cells 1 (0-4) /hpf Urine Mucus Occasional H (None) /hpf Urine HCG, Qual (Not Detectd) Disposition Clinical Impression: Abdominal pain Disposition: HOME SELF-CARE Condition: Stable Instructions (If sedation given, give patient instructions): Abdominal Pain (ED) Additional Instructions: Patient to adhere to previously discussed treatment plan and will take medication(s) as directed. Patient to follow up with PCP in 1-2 days. Patient to return to ED if symptoms do not improve. Continue to monitor symptoms. Follow up with primary care provider tomorrow. Return to ER if condition worsens in any way. Is patient prescribed a controlled substance at d/c from ED?: No Referrals: Wong Adame MD [Primary Care Provider] - 1-2 days
[2019-01-14 14:56] LABS: Basophils % (A) 1 %; Eosinophils % (A) 0 %; HCT 45.3 % (34.0-46.0); HGB 14.4 gm/dL (11.4-16.0); Lymphocytes # (A) 1.5 k/uL (1.0-4.8); Lymphocytes % (A) 17 %; MCH 26.8 pg (25.0-35.0); MCHC 31.8 g/dL (31.0-37.0); MCV 84.4 fL (80.0-100.0); Mean Platelet Volume 6.1; Monocytes # (A) 0.4 k/uL (0-1.0); Monocytes % (A) 4 %; Neutrophils # (A) 7.2 k/uL (1.3-7.7); Neutrophils % (A) 77 %; Platelet Count 380 k/uL (150-450); RBC 5.37 m/uL (3.80-5.40); RDW 13.5 % (11.5-15.5); WBC 9.3 k/uL (3.8-10.6)
[2019-01-14 15:03] LABS: Appearance,Urine Cloudy (Clear); Bilirubin,Urine Negative (Negative); Blood,Urine Negative (Negative); Color,Urine Yellow; Glucose,Urine (UA) Negative (Negative); Ketones,Urine Negative (Negative); Leukocyte Esterase,Urine Negative (Negative); Mucus,Urine Occasional /hpf; Nitrite,Urine Negative (Negative); Protein,Urine Trace (Negative); RBC,Urine 3 /hpf (0-5); Specific Gravity,Urine 1.026 (1.001-1.035); Squamous Epithelial Cell,Urine 1 /hpf (0-4); WBC,Urine 1 /hpf (0-5)
[2019-01-14 15:04] LABS: ALT 33 U/L (9-52); AST 18 U/L (14-36); African American GFR (CKD) >90 (>60 ml/min/1.73 sqM); Albumin 4.3 g/dL (3.5-5.0); Alkaline Phosphatase 141 U/L (38-126); Anion Gap 9 mmol/L; Blood Urea Nitrogen 10 mg/dL (7-17); Calcium 9.8 mg/dL (8.4-10.2); Carbon Dioxide 22 mmol/L (22-30); Chloride 111 mmol/L (98-107); Glucose 89 mg/dL (74-99); Potassium 4.1 mmol/L (3.5-5.1); Sodium 142 mmol/L (137-145); Total Bilirubin 0.3 mg/dL (0.2-1.3); Total Protein 7.2 g/dL (6.3-8.2)
--- NOTE | 2019-01-14 15:30 | US ---
EXAMINATION TYPE: US abdomen APPY DATE OF EXAM: 01/14/2019 COMPARISON: NONE CLINICAL HISTORY: RLQ pain . FINDINGS: A blind ending tubular structure is identified within the right lower quadrant extending off of the c ecum, likely representing the appendix. The diameter measures 3 to 4 mm when measured outer wall to o uter wall (normal is less than 6 mm). The structure is compressible. There is no hypervascularity. No shadowing appendicolith. No surrounding inflammatory changes. The brickmason reports no rebound ten derness. IMPRESSION: No ultrasonographic evidence of appendicitis.
[2019-01-14 15:51] VITALS: BP 110/59; PULSE 60; RESP 16
== END 2019-01-14 15:59 | disposition home or self-care (01) ==
LOC: EC 13:41
DX: R10.31 Right lower quadrant pain (principal); R10.11 Right upper quadrant pain; R11.2 Nausea with vomiting, unspecified; K31.84 Gastroparesis; K21.9 Gastro-esophageal reflux disease without esophagitis; E03.9 Hypothyroidism, unspecified; G89.29 Other chronic pain; F31.9 Bipolar disorder, unspecified; Z79.01 Long term (current) use of anticoagulants; Z79.890 Hormone replacement therapy; Z79.899 Other long term (current) drug therapy; Z88.8 Allergy status to other drugs, medicaments and biological substances; Z86.711 Personal history of pulmonary embolism; Z90.49 Acquired absence of other specified parts of digestive tract; Z87.19 Personal history of other diseases of the digestive system; Z86.718 Personal history of other venous thrombosis and embolism
CPT/HCPCS: 36415; 80053; 83605; 83690; 85025; 81001; 81025; 76705; 99284; 96374; 96375; 96361; J2405; J1170

== ENCOUNTER 2019-01-18 13:20 | Emergency (ER) | payer BC ==
[2019-01-18] MEDS ORDERED: KETOROLAC 30 MG/ML 1 ML VIAL IVP STA (14:15)
[2019-01-18] MEDS ORDERED: ONDANSETRON 4 MG/2 ML VIAL IVP STA (14:15)
[2019-01-18] MEDS ORDERED: HYDROmorphone 1 MG/ML 1 ML SYRINGE IVP STA (14:15)
[2019-01-18] MEDS ORDERED: SODIUM CHLORIDE 0.9% 1,000 ML IV STA (14:15)
[2019-01-18] MEDS ORDERED: SODIUM CHLORIDE 0.9% 500 ML 500 ML IV STA (14:15)
--- NOTE | 2019-01-18 14:26 | ED ---
Abdominal Pain HPI - General Chief Complaint: Abdominal Pain Stated Complaint: Abd pain Time Seen by Provider: 01/18/19 14:10 Source: patient Mode of arrival: ambulatory - History of Present Illness Initial Comments: 38-year-old female patient with past medical history significant for idiopathic gastroparesis, chronic vomiting, chronic abdominal pain, currently receiving most feedings through her J-tube presents to the emergency department today for evaluation of right lower quadrant abdominal pain. Patient states that she has had this pain for the last week. States it has been persistent and worsening. States this is different from her usual abdominal pain. She denies any fever or chills. States she has had some vomiting but nothing unusual. Denies any constipation or diarrhea. Patient does have history of ovarian cyst. Denies any abnormal vaginal bleeding or discharge. Patient has had multiple abdominal surgeries, possible abdominal adhesions. She was seen and evaluated here week ago, they did an ultrasound that ruled out appendicitis. Patient denies any recent rash, shortness breath, chest pain, back pain, numbness, tingling, dizziness, weakness, hematuria, dysuria, urinary urgency, urinary frequency, headache, visual changes, or any other complaints. - Related Data Home Medications Medication Instructions Recorded Confirmed Lansoprazole [Prevacid] 30 mg PO BID 02/02/18 01/14/19 Montelukast Chew [Singulair] 10 mg PO DAILY 02/02/18 01/14/19 Topiramate [Trokendi Xr] 50 mg PO DAILY 07/18/18 01/14/19 Ondansetron Odt [Zofran ODT] 8 mg PO Q8HR PRN 10/06/18 01/14/19 Promethazine HCl [Phenergan Syrup] 12.5 mg PO Q6HR PRN 10/06/18 01/14/19 Thyroid,Pork [[place] Thyroid] 60 mg PO Q48H 10/06/18 01/14/19 Thyroid,Pork [[place] Thyroid] 90 mg PO Q48H 10/06/18 01/14/19 SUMAtriptan SUCCINATE [Imitrex] 100 mg PO DAILY PRN 10/19/18 01/14/19 Enoxaparin [Lovenox] 150 mg SQ DAILY 01/14/19 01/14/19 Prucalopride Succinate [Motegrity] 2 mg PO DAILY 01/14/19 01/14/19 Previous Rx's Medication Instructions Recorded Scopolamine 1.5MG/72Hr Patch 1 patch TRANSDERM Q72H #10 patch 07/31/18 [TransDerm Scop] Mupirocin Calcium [Bactroban 2% 1 applic TOPICAL TID 7 Days gm 10/19/18 Cream] Allergies Allergy/AdvReac Type Severity Reaction Status Date / Time metoclopramide [From Reglan] AdvReac Mild jittery Verified 01/18/19 13:43 prochlorperazine AdvReac Mild JITTERY Verified 01/18/19 13:43 [From Compazine] Review of Systems ROS Statement: Those systems with pertinent positive or pertinent negative responses have been documented in the HPI. ROS Other: All systems not noted in ROS Statement are negative. Past Medical History Past Medical History: GERD/Reflux, Pulmonary Embolus (PE), Thyroid Disorder Additional Past Medical History / Comment(s): Idiopathic gastroparesis, takes little in orally-has J tube for feedings,R pulmonary embolism , pancreatitis, hypothyroid, chronic anemia, sinus problems, migraine, dvt -2018. 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 J tube replaced Past Anesthesia/Blood Transfusion Reactions: No Reported Reaction Past Psychological History: Depression Smoking Status: Never smoker Past Alcohol Use History: None Reported Past Drug Use History: None Reported - Past Family History Father Family Medical History: Hypertension Additional Family Medical History / Comment(s): DAD IS 56 AND IN [facility] Mother Additional Family Medical History / Comment(s): MOM IS 56 AND IN [facility] General Exam General appearance: alert, in no apparent distress, other (Physical well- developed, well-nourished adult female patient in no acute distress. Vital signs upon presentation are temperature 98.3F, pulse 81, respirations 18, blood pressure 129/81, pulse ox 99% on room air.) Eye exam: Present: normal appearance, PERRL, EOMI. Absent: scleral icterus, conjunctival injection, periorbital swelling ENT exam: Present: normal exam, normal oropharynx, mucous membranes moist Respiratory exam: Present: normal lung sounds bilaterally. Absent: respiratory distress, wheezes, rales, rhonchi, stridor Cardiovascular Exam: Present: regular rate, normal rhythm, normal heart sounds. Absent: systolic murmur, diastolic murmur, rubs, gallop, clicks GI/Abdominal exam: Present: soft, tenderness (Right lower quadrant, right upper quadrant), normal bowel sounds. Absent: distended, guarding, rebound, rigid Neurological exam: Present: alert, oriented X3, CN II-XII intact Psychiatric exam: Present: normal affect, normal mood Skin exam: Present: warm, dry, intact, normal color. Absent: rash Course Vital Signs 01/18/19 01/18/19 01/18/19 13:39 14:43 16:00 Temperature 98.3 F Pulse Rate 81 72 Respiratory 18 16 16 Rate Blood Pressure 129/81 106/57 O2 Sat by Pulse 99 100 Oximetry 01/18/19 17:16 Temperature 98.4 F Pulse Rate 63 Respiratory 16 Rate Blood Pressure 123/70 O2 Sat by Pulse 99 Oximetry Medical Decision Making - Medical Decision Making 38 year-old female patient with chronic abdominal pain and vomiting presents to the emergency department today for evaluation of right lower quadrant pain. Symptoms of the present for a week. Should have a negative ultrasound 1 week ago. Physical examination did reveal right lower quadrant tenderness and right upper quadrant tenderness. No CVA tenderness. Labs reviewed and are unremarkable. Urinalysis negative. Ultrasound of the pelvis was obtained and showed a small right ovarian cyst and some fluid in the endometrium nothing specific. KUB x-ray was unremarkable. I did discuss findings and results with the patient. We did discuss possibility of ruptured ovarian cyst, or abdominal adhesions related to previous surgeries as a possible cause for her symptoms. She is instructed follow up with her primary care physician as well as her general surgeon. Return parameters were discussed in detail. She verbalizes understanding and agrees with this plan. - Lab Data Result diagrams: 01/18/19 14:35 01/18/19 14:35 Lab Results 01/18/19 01/18/19 01/18/19 Range/Units 14:35 14:35 14:35 WBC 7.4 (3.8-10.6) k/uL RBC 4.88 (3.80-5.40) m/uL Hgb 13.3 (11.4-16.0) gm/dL Hct 41.2 (34.0-46.0) % MCV 84.3 (80.0-100.0) fL MCH 27.3 (25.0-35.0) pg MCHC 32.4 (31.0-37.0) g/dL RDW 13.5 (11.5-15.5) % Plt Count 346 (150-450) k/uL Neutrophils % 50 % Lymphocytes % 39 % Monocytes % 4 % Eosinophils % 3 % Basophils % 1 % Neutrophils # 3.7 (1.3-7.7) k/uL Lymphocytes # 2.9 (1.0-4.8) k/uL Monocytes # 0.3 (0-1.0) k/uL Eosinophils # 0.3 (0-0.7) k/uL Basophils # 0.1 (0-0.2) k/uL Sodium 140 (137-145) mmol/L Potassium 3.9 (3.5-5.1) mmol/L Chloride 109 H (98-107) mmol/L Carbon Dioxide 24 (22-30) mmol/L Anion Gap 7 mmol/L BUN 11 (7-17) mg/dL Creatinine 0.70 (0.52-1.04) mg/dL Est GFR (CKD-EPI)AfAm >90 (>60 ml/min/1.73 sqM) Est GFR (CKD-EPI)NonAf >90 (>60 ml/min/1.73 sqM) Glucose 79 (74-99) mg/dL Calcium 9.0 (8.4-10.2) mg/dL Total Bilirubin 0.2 (0.2-1.3) mg/dL AST 15 (14-36) U/L ALT 26 (9-52) U/L Alkaline Phosphatase 112 (38-126) U/L Total Protein 6.3 (6.3-8.2) g/dL Albumin 3.6 (3.5-5.0) g/dL Amylase 86 (30-110) U/L Lipase 164 (23-300) U/L Urine Color Yellow Urine Appearance Clear (Clear) Urine pH 5.5 (5.0-8.0) Ur Specific [place] 1.022 (1.001-1.035) Urine Protein Negative (Negative) Urine Glucose (UA) Negative (Negative) Urine Ketones Negative (Negative) Urine Blood Negative (Negative) Urine Nitrite Negative (Negative) Urine Bilirubin Negative (Negative) Urine Urobilinogen <2.0 (<2.0) mg/dL Ur Leukocyte Esterase Negative (Negative) - Radiology Data Radiology results: report reviewed, image reviewed Transvaginal ultrasound was obtained. Report was reviewed in its entirety. Impression by Dr. Keller shows uterus is heterogenous which is a nonspecific finding. No discrete fibroid changes. I identified. Trace amount of fluid status and endometrium correlate with phase the patient's menstrual cycle. Small ovarian cyst on the right ovary. Disposition Clinical Impression: Abdominal pain Disposition: HOME SELF-CARE Condition: Good Instructions (If sedation given, give patient instructions): Abdominal Pain (ED) Additional Instructions: Increase fluids. Rest. Follow up with your primary care physician for recheck in 1-2 days. Return to the emergency department for any new, worsening, or concerning symptoms. Is patient prescribed a controlled substance at d/c from ED?: No Referrals: Wong Adame MD [Primary Care Provider] - 1-2 days Time of Disposition: 16:53
[2019-01-18 14:44] VITALS: RESP 16
[2019-01-18 14:47] LABS: Basophils # (A) 0.1 k/uL (0-0.2); Basophils % (A) 1 %; Eosinophils # (A) 0.3 k/uL (0-0.7); Eosinophils % (A) 3 %; HCT 41.2 % (34.0-46.0); HGB 13.3 gm/dL (11.4-16.0); Lymphocytes # (A) 2.9 k/uL (1.0-4.8); Lymphocytes % (A) 39 %; MCH 27.3 pg (25.0-35.0); MCHC 32.4 g/dL (31.0-37.0); MCV 84.3 fL (80.0-100.0); Mean Platelet Volume 6.1; Monocytes # (A) 0.3 k/uL (0-1.0); Monocytes % (A) 4 %; Neutrophils # (A) 3.7 k/uL (1.3-7.7); Neutrophils % (A) 50 %; Platelet Count 346 k/uL (150-450); RBC 4.88 m/uL (3.80-5.40); RDW 13.5 % (11.5-15.5); WBC 7.4 k/uL (3.8-10.6)
[2019-01-18 14:55] LABS: ALT 26 U/L (9-52); AST 15 U/L (14-36); African American GFR (CKD) >90 (>60 ml/min/1.73 sqM); Albumin 3.6 g/dL (3.5-5.0); Alkaline Phosphatase 112 U/L (38-126); Amylase 86 U/L (30-110); Anion Gap 7 mmol/L; Blood Urea Nitrogen 11 mg/dL (7-17); Carbon Dioxide 24 mmol/L (22-30); Chloride 109 mmol/L (98-107); Glucose 79 mg/dL (74-99); Potassium 3.9 mmol/L (3.5-5.1); Sodium 140 mmol/L (137-145); Total Bilirubin 0.2 mg/dL (0.2-1.3); Total Protein 6.3 g/dL (6.3-8.2)
[2019-01-18 15:01] LABS: Appearance,Urine Clear (Clear); Bilirubin,Urine Negative (Negative); Blood,Urine Negative (Negative); Color,Urine Yellow; Glucose,Urine (UA) Negative (Negative); Ketones,Urine Negative (Negative); Leukocyte Esterase,Urine Negative (Negative); Nitrite,Urine Negative (Negative); PH, Urine 5.5 (5.0-8.0); Protein,Urine Negative (Negative); Specific Gravity,Urine 1.022 (1.001-1.035); Urobilinogen,Urine <2.0 mg/dL (<2.0)
--- NOTE | 2019-01-18 15:54 | US ---
EXAMINATION TYPE: US transvaginal DATE OF EXAM: 01/18/2019 COMPARISON: None CLINICAL HISTORY: Right pelvic pain. Right side pain. Patient states having IUD x 3 years. TECHNIQUE: Transvaginal (TV). Date of LMP: 12/15/2018, EXAM MEASUREMENTS: Uterus: 8.3 x 4.8 x 3.6 cm Endometrial Stripe: 0.2 cm Right Ovary: 2.9 x 1.9 x 1.8 cm Left Ovary: 3.1 x 1.7 x 1.4 cm 1. Uterus: Anteverted Appears heterogenous. 2. Endometrium: Trace amount of fluid seen. IUD visualized. 3. Right Ovary: Dominant follicle visualized = 1.6 x 1.5 cm 4. Left Ovary: wnl Spectral, color and waveform doppler imaging shows good arterial and venous flow within the ovaries ; there is no evidence for ovarian torsion. 5. Bilateral Adnexa: wnl 6. Posterior cul-de-sac: no free fluid IMPRESSION: 1. The uterus is heterogeneous which is a nonspecific finding. No discrete fibroid changes. 2. IUD identified. Trace amount of fluid seen within the endometrium correlate with the phase of romeo ent's menstrual cycle. 3. 1.6 cm right ovarian cyst.
--- NOTE | 2019-01-18 16:40 | XR ---
EXAMINATION TYPE: XR KUB DATE OF EXAM: 01/18/2019 COMPARISON: 12/14/2018 HISTORY: Abdominal pain TECHNIQUE: 2 views FINDINGS: There is no sign of intestinal obstruction or pneumoperitoneum. Fecal pattern is normal. Jessie ng bases are clear. There are clips from cholecystectomy. There is no sign of a mass. There is left-s ided jejunostomy tube. There is IUD noted. IMPRESSION: Nonacute abdomen. No adverse change..
[2019-01-18 17:17] VITALS: BP 123/70; PULSE 63; TEMP 98.4
== END 2019-01-18 17:10 | disposition home or self-care (01) ==
LOC: EC 13:20
DX: R10.31 Right lower quadrant pain (principal); R10.11 Right upper quadrant pain; G89.29 Other chronic pain; R11.10 Vomiting, unspecified; N83.201 Unspecified ovarian cyst, right side; K21.9 Gastro-esophageal reflux disease without esophagitis; K31.84 Gastroparesis; E03.9 Hypothyroidism, unspecified; Z87.19 Personal history of other diseases of the digestive system; Z86.711 Personal history of pulmonary embolism; Z86.718 Personal history of other venous thrombosis and embolism; Z90.49 Acquired absence of other specified parts of digestive tract; Z98.890 Other specified postprocedural states; Z79.01 Long term (current) use of anticoagulants; Z79.890 Hormone replacement therapy; Z79.899 Other long term (current) drug therapy; Z88.8 Allergy status to other drugs, medicaments and biological substances
CPT/HCPCS: 36415; 80053; 82150; 83690; 85025; 81003; 74018; 93975; 76830; 99284; 96374; 96375 ×2; 96361 ×2; J2405; J1885; J1170

== ENCOUNTER 2019-01-21 18:17 | Inpatient (IN) | payer BC ==
[2019-01-21] MEDS ORDERED: ONDANSETRON 4 MG/2 ML VIAL IVP STA (19:09)
[2019-01-21] MEDS ORDERED: SODIUM CHLORIDE 0.9% 1,000 ML IV STA (19:09)
[2019-01-21 19:37] LABS: Basophils # (A) 0.1 k/uL (0-0.2); Basophils % (A) 1 %; Eosinophils # (A) 0.2 k/uL (0-0.7); Eosinophils % (A) 3 %; HCT 40.3 % (34.0-46.0); Lymphocytes # (A) 2.8 k/uL (1.0-4.8); Lymphocytes % (A) 40 %; MCH 27.3 pg (25.0-35.0); MCHC 32.4 g/dL (31.0-37.0); MCV 84.3 fL (80.0-100.0); Mean Platelet Volume 5.9; Monocytes # (A) 0.4 k/uL (0-1.0); Monocytes % (A) 6 %; Neutrophils # (A) 3.5 k/uL (1.3-7.7); Neutrophils % (A) 48 %; Platelet Count 352 k/uL (150-450); RBC 4.78 m/uL (3.80-5.40); RDW 13.4 % (11.5-15.5); WBC 7.1 k/uL (3.8-10.6)
[2019-01-21] MEDS ORDERED: PROMETHAZINE INJ 25 MG in SODIUM CHLORIDE 0.9% 50 ML IVPB STA (19:45)
[2019-01-21] MEDS ORDERED: HYDROmorphone 0.5 MG/0.5 ML SYRINGE IVP STA ×2 (19:45→22:27)
[2019-01-21 19:47] LABS: ALT 15 U/L (9-52); AST 13 U/L (14-36); African American GFR (CKD) >90 (>60 ml/min/1.73 sqM); Albumin 3.6 g/dL (3.5-5.0); Alkaline Phosphatase 106 U/L (38-126); Amylase 99 U/L (30-110); Anion Gap 7 mmol/L; Blood Urea Nitrogen 12 mg/dL (7-17); Carbon Dioxide 23 mmol/L (22-30); Chloride 110 mmol/L (98-107); Glucose 84 mg/dL (74-99); Potassium 4.2 mmol/L (3.5-5.1); Sodium 140 mmol/L (137-145); Total Bilirubin 0.1 mg/dL (0.2-1.3); Total Protein 6.2 g/dL (6.3-8.2)
--- NOTE | 2019-01-21 19:53 | XR ---
EXAMINATION TYPE: XR KUB DATE OF EXAM: 01/21/2019 COMPARISON: 01/18/2019 HISTORY: Pain TECHNIQUE: 2 views upright FINDINGS: Bowel gas pattern is normal. There is no sign of intestinal obstruction or pneumoperitoneum . There is IUD. There is clips from cholecystectomy. There is no sign of a mass. There are no patholo gic calcifications over the kidneys. There is left mid abdominal apparent jejunostomy tube. IMPRESSION: Nonacute abdomen. No change.
--- NOTE | 2019-01-21 20:16 | ED ---
Abdominal Pain HPI - General Source: patient Mode of arrival: ambulatory Limitations: no limitations <Enzo Mcduffie - Last Filed: 01/21/19 22:42> <Mag Figueroa - Last Filed: 01/22/19 03:31> - General Chief Complaint: Abdominal Pain Stated Complaint: vomiting Time Seen by Provider: 01/21/19 18:28 - History of Present Illness Initial Comments: Patient is a 38-year-old female with history of gastroparesis is presenting to the emergency department with a chief complaint of abdominal pain nausea vomiting. Patient reports that she has repetitive bouts with nausea vomiting. Patient reports her most recent symptoms started 3 days ago without any resolution. States that she pushed Phenergan through her J-tube without any improvement. Patient also reports using Zofran sublingual without any changes. She reports epigastric abdominal pain which is very typical when she has repetitive bouts with nausea or vomiting. Patient denies any diarrhea at this time. Patient has any fevers or chills. (Enzo Mcduffie) - Related Data Home Medications Medication Instructions Recorded Confirmed Lansoprazole [Prevacid] 30 mg PO BID 02/02/18 01/21/19 Montelukast Chew [Singulair] 10 mg PO DAILY 02/02/18 01/21/19 Topiramate [Trokendi Xr] 50 mg PO DAILY 07/18/18 01/21/19 Ondansetron Odt [Zofran ODT] 8 mg PO Q8HR PRN 10/06/18 01/21/19 Promethazine HCl [Phenergan Syrup] 12.5 mg PO Q6HR PRN 10/06/18 01/21/19 Thyroid,Pork [[place] Thyroid] 60 mg PO Q48H 10/06/18 01/21/19 Thyroid,Pork [[place] Thyroid] 90 mg PO Q48H 10/06/18 01/21/19 SUMAtriptan SUCCINATE [Imitrex] 100 mg PO DAILY PRN 10/19/18 01/21/19 Enoxaparin [Lovenox] 150 mg SQ DAILY 01/14/19 01/21/19 Prucalopride Succinate [Motegrity] 2 mg PO DAILY 01/14/19 01/21/19 Previous Rx's Medication Instructions Recorded Scopolamine 1.5MG/72Hr Patch 1 patch TRANSDERM Q72H #10 patch 07/31/18 [TransDerm Scop] Mupirocin Calcium [Bactroban 2% 1 applic TOPICAL TID 7 Days gm 10/19/18 Cream] Allergies Allergy/AdvReac Type Severity Reaction Status Date / Time metoclopramide [From Reglan] AdvReac Mild jittery Verified 01/21/19 18:33 prochlorperazine AdvReac Mild JITTERY Verified 01/21/19 18:33 [From Compazine] Review of Systems ROS Other: All systems not noted in ROS Statement are negative. <Enzo Mcduffie - Last Filed: 01/21/19 22:42> ROS Other: All systems not noted in ROS Statement are negative. <Mag Figueroa - Last Filed: 01/22/19 03:31> ROS Statement: Those systems with pertinent positive or pertinent negative responses have been documented in the HPI. Past Medical History Past Medical History: GERD/Reflux, Pulmonary Embolus (PE), Thyroid Disorder Additional Past Medical History / Comment(s): Idiopathic gastroparesis, takes little in orally-has J tube for feedings,R pulmonary embolism -2017, pancreatitis, hypothyroid, chronic anemia, sinus problems, migraine, dvt -2018. 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 J tube replaced Past Anesthesia/Blood Transfusion Reactions: No Reported Reaction Past Psychological History: Depression Smoking Status: Never smoker Past Alcohol Use History: None Reported Past Drug Use History: None Reported - Past Family History Father Family Medical History: Hypertension Additional Family Medical History / Comment(s): DAD IS 56 AND IN [facility] Mother Additional Family Medical History / Comment(s): MOM IS 56 AND IN [facility] <Enzo Mcduffie - Last Filed: 01/21/19 22:42> General Exam Limitations: no limitations General appearance: alert, in no apparent distress Head exam: Present: atraumatic, normocephalic, normal inspection Eye exam: Present: normal appearance Pupils: Present: normal accommodation ENT exam: Present: normal exam, normal oropharynx, mucous membranes dry, TM's normal bilaterally, normal external ear exam Neck exam: Present: normal inspection, full ROM Respiratory exam: Present: normal lung sounds bilaterally Cardiovascular Exam: Present: regular rate, normal rhythm, normal heart sounds GI/Abdominal exam: Present: soft, tenderness (Epigastric), other (J-tube placement does not look infected) Extremities exam: Present: normal inspection, full ROM, normal capillary refill. Absent: tenderness, pedal edema, joint swelling, calf tenderness Back exam: Present: normal inspection, full ROM. Absent: tenderness, CVA tenderness (R), CVA tenderness (L) Neurological exam: Present: alert, oriented X3 Psychiatric exam: Present: normal affect, normal mood Skin exam: Present: warm, intact, normal color <Enzo Mcduffie - Last Filed: 01/21/19 22:42> Course Vital Signs 01/21/19 01/21/19 18:20 21:00 Temperature 98.5 F 98.2 F Pulse Rate 91 85 Respiratory 16 16 Rate Blood Pressure 135/81 112/68 O2 Sat by Pulse 100 97 Oximetry Medical Decision Making - Lab Data Result diagrams: 01/21/19 19:20 01/21/19 19:20 <Enzo Mcduffie - Last Filed: 01/21/19 22:42> - Lab Data Result diagrams: 01/21/19 19:20 01/21/19 19:20 <Mag Figueroa - Last Filed: 01/22/19 03:31> - Medical Decision Making Patient is a 38-year-old female with history of gastroparesis presenting to emergency Department with a chief complaint of abdominal pain nausea vomiting. Patient has repetitive bouts of the same symptoms whenever her gastroparesis flares up. Patient was given fluids, Zofran and 2 doses of Phenergan and Dilaudid. Labs appeared to be within normal range when compared to her previous laboratory draws. On reevaluation patient continues to have nausea with vomiting. At this time I discussed the possibility for admission. Case discussed with Dr. Figueroa. Admitting physician is Dr. Adame. (Enzo Mcduffie) Patient care was discussed with her primary care physician Dr. Adame who agrees with plan for admission for continued IV antiemetics, IV fluids and pain management (Mag Figueroa) - Lab Data Lab Results 01/21/19 01/21/19 01/21/19 Range/Units 19:20 19:20 20:20 WBC 7.1 (3.8-10.6) k/uL RBC 4.78 (3.80-5.40) m/uL Hgb 13.0 (11.4-16.0) gm/dL Hct 40.3 (34.0-46.0) % MCV 84.3 (80.0-100.0) fL MCH 27.3 (25.0-35.0) pg MCHC 32.4 (31.0-37.0) g/dL RDW 13.4 (11.5-15.5) % Plt Count 352 (150-450) k/uL Neutrophils % 48 % Lymphocytes % 40 % Monocytes % 6 % Eosinophils % 3 % Basophils % 1 % Neutrophils # 3.5 (1.3-7.7) k/uL Lymphocytes # 2.8 (1.0-4.8) k/uL Monocytes # 0.4 (0-1.0) k/uL Eosinophils # 0.2 (0-0.7) k/uL Basophils # 0.1 (0-0.2) k/uL Sodium 140 (137-145) mmol/L Potassium 4.2 (3.5-5.1) mmol/L Chloride 110 H (98-107) mmol/L Carbon Dioxide 23 (22-30) mmol/L Anion Gap 7 mmol/L BUN 12 (7-17) mg/dL Creatinine 0.75 (0.52-1.04) mg/dL Est GFR (CKD-EPI)AfAm >90 (>60 ml/min/1.73 sqM) Est GFR (CKD-EPI)NonAf >90 (>60 ml/min/1.73 sqM) Glucose 84 (74-99) mg/dL Calcium 9.0 (8.4-10.2) mg/dL Total Bilirubin 0.1 L (0.2-1.3) mg/dL AST 13 L (14-36) U/L ALT 15 (9-52) U/L Alkaline Phosphatase 106 (38-126) U/L Total Protein 6.2 L (6.3-8.2) g/dL Albumin 3.6 (3.5-5.0) g/dL Amylase 99 (30-110) U/L Lipase 67 (23-300) U/L Urine Color Yellow Urine Appearance Clear (Clear) Urine pH 7.0 (5.0-8.0) Ur Specific Gordon 1.016 (1.001-1.035) Urine Protein Negative (Negative) Urine Glucose (UA) Negative (Negative) Urine Ketones Negative (Negative) Urine Blood Negative (Negative) Urine Nitrite Negative (Negative) Urine Bilirubin Negative (Negative) Urine Urobilinogen <2.0 (<2.0) mg/dL Ur Leukocyte Esterase Negative (Negative) Disposition Is patient prescribed a controlled substance at d/c from ED?: No Time of Disposition: 22:45 <Enzo Mcduffie - Last Filed: 01/21/19 22:42> <Mag Figueroa - Last Filed: 01/22/19 03:31> Clinical Impression: Abdominal pain, Nausea & vomiting Disposition: ADMITTED IP TO THIS HOSP Condition: Good
[2019-01-21] MEDS ORDERED: PROMETHAZINE INJ 12.5 MG in SODIUM CHLORIDE 0.9% 50 ML IVPB ONE (21:30)
[2019-01-21 22:54] LABS: Appearance,Urine Clear (Clear); Bilirubin,Urine Negative (Negative); Blood,Urine Negative (Negative); Color,Urine Yellow; Glucose,Urine (UA) Negative (Negative); Ketones,Urine Negative (Negative); Leukocyte Esterase,Urine Negative (Negative); Nitrite,Urine Negative (Negative); Protein,Urine Negative (Negative); Specific Gravity,Urine 1.016 (1.001-1.035); Urobilinogen,Urine <2.0 mg/dL (<2.0)
[2019-01-21] MEDS ORDERED: NALOXONE 0.4 MG/ML 1 ML VIAL IV PRN (22:57)
[2019-01-21] MEDS ORDERED: ONDANSETRON 4 MG/2 ML VIAL IVP PRN (22:57)
[2019-01-21] MEDS: SODIUM CHLORIDE 0.9% 1,000 ML IV SCH (23:18)
[2019-01-21 23:36] VITALS: BMI 29.7
[2019-01-22] MEDS: HYDROmorphone 0.5 MG/0.5 ML SYRINGE IVP PRN ×8 (01:26→23:08)
[2019-01-22] MEDS ORDERED: SUMAtriptan SUCCINATE 50 MG TAB PO PRN (06:33)
[2019-01-22] MEDS: THYROID, PORK 30 MG TAB PO SCH (07:22)
[2019-01-22] MEDS: SODIUM CHLORIDE 0.9% 1,000 ML IV SCH ×2 (07:27→16:20)
[2019-01-22] MEDS ORDERED: PANTOPRAZOLE 40 MG TABLET PO SCH (07:30)
[2019-01-22] MEDS: SCOPOLAMINE 1.5MG/72HR PATCH TRANSDERM SCH (08:07)
[2019-01-22] MEDS ORDERED: PANTOPRAZOLE 40 MG/10 ML VIAL IV SCH (09:00)
[2019-01-22] MEDS ORDERED: ENOXAPARIN 150 MG/ML SYRINGE SQ SCH (09:00)
[2019-01-22] MEDS ORDERED: TOPIRAMATE 25 MG TAB PO SCH (09:00)
[2019-01-22] MEDS: PRUCALOPRIDE SUCCINATE 2 MG PO SCH (09:50)
[2019-01-22] MEDS: MUPIROCIN 2% OINT 22 GM TUBE TOPICAL SCH ×3 (09:52→21:36)
[2019-01-22] MEDS: MONTELUKAST 10 MG TAB PO SCH (09:52)
[2019-01-22] MEDS: LORazepam 2 MG/ML INJ IV PRN ×2 (09:53→21:37)
[2019-01-22] MEDS ORDERED: PREVACID PO SCH (11:00)
--- NOTE | 2019-01-22 12:06 | HP ---
HISTORY AND PHYSICAL CHIEF COMPLAINT: Abdominal pain, nausea and vomiting. HISTORY OF PRESENT ILLNESS: This is another admission for this 38-year-old white female who has gastroparesis. She is in and out of the hospital all the time. When she left last, she was supposed to be followed up by palliative care, but apparently this has not worked out well. Since she was in the hospital last time, she has had a virtual visit with the [facility] [place], and they are trying her on a new medication. It is not going well. She continues to have frequent episodes of intractable abdominal pain with vomiting. She has had no hematemesis, jaundice, melena, hematochezia, fever, chills, etc. REVIEW OF SYSTEMS: Otherwise unremarkable. Past medical history, family history and personal and social histories are essentially unchanged. She cannot take Compazine or Reglan. Medications can be found in her MAR. She does not smoke or drink. PHYSICAL EXAMINATION: Blood pressure is 110/60 with a pulse of 96, respirations of 35, and she is afebrile. In general, she appeared to be well developed and uncomfortable. Skin was dry. Head, ears, eyes, nose, mouth, and throat were normal. The chest is clear. Cardiac exam is normal and there are no murmurs or extra sounds. The abdomen is slightly protuberant, soft, nontender without visceromegaly or masses. Jejunostomy tube was in place. Bowel sounds are heard. Extremities are normal. Neurologically she is intact. IMPRESSION: 1. Gastroparesis. 2. Intractable nausea and vomiting. 3. Intractable abdominal pain. PLAN: 1. Bed rest. 2. IV fluids. 3. Analgesics and antiemetics. 4. Obtain records through her from the [facility] [place]. MMODL / IJN: [id number] /
[2019-01-22] MEDS: PROMETHAZINE INJ 25 MG in SODIUM CHLORIDE 0.9% 50 ML IVPB PRN ×2 (12:25→18:31)
--- NOTE | 2019-01-22 12:27 | PN ---
PROGRESS NOTE CHIEF COMPLAINT: Intractable nausea and vomiting, abdominal pain. HISTORY OF PRESENT ILLNESS: This lady is still vomiting and having pain. She has not had a fever. She is . PHYSICAL EXAMINATION: Chest is clear and the abdomen is slightly protuberant, soft and does not seem to be tender. Bowel sounds are heard. IMPRESSION: 1. Gastroparesis. 2. Intractable nausea, vomiting. 3. Intractable pain. 4. Dehydration. PLAN: 1. Readjust her medications and continue with management of her symptoms until she stabilizes and is able to go home. 2. Her will have the records sent from [facility]. MMODL / IJN: [id number] /
[2019-01-22] MEDS: PREVACID PO SCH (18:31)
[2019-01-22] MEDS: TOPIRAMATE PO SCH (21:35)
[2019-01-22] MEDS: diphenhydrAMINE 50 MG/ML 1 ML VIAL IVP PRN (21:37)
[2019-01-23] MEDS: PROMETHAZINE INJ 25 MG in SODIUM CHLORIDE 0.9% 50 ML IVPB PRN ×3 (00:26→14:52)
[2019-01-23] MEDS: HYDROmorphone 0.5 MG/0.5 ML SYRINGE IVP PRN ×7 (02:16→21:17)
[2019-01-23] MEDS: diphenhydrAMINE 50 MG/ML 1 ML VIAL IVP PRN ×4 (03:37→21:43)
[2019-01-23] MEDS: LORazepam 2 MG/ML INJ IV PRN ×4 (03:37→21:44)
[2019-01-23] MEDS: SODIUM CHLORIDE 0.9% 1,000 ML IV SCH (05:55)
[2019-01-23] MEDS: THYROID, PORK 30 MG TAB PO SCH (06:02)
[2019-01-23] MEDS: PREVACID PO SCH ×2 (08:20→18:13)
[2019-01-23] MEDS: PRUCALOPRIDE SUCCINATE 2 MG PO SCH (08:21)
[2019-01-23] MEDS: MUPIROCIN 2% OINT 22 GM TUBE TOPICAL SCH ×3 (08:22→21:21)
[2019-01-23] MEDS: MONTELUKAST 10 MG TAB PO SCH (08:22)
[2019-01-23] MEDS: ENOXAPARIN 100 MG/ML SYRINGE SQ SCH (08:24)
[2019-01-23 13:34] LABS: Basophils % (A) 0 %; Eosinophils # (A) 0.2 k/uL (0-0.7); Eosinophils % (A) 2 %; HCT 38.5 % (34.0-46.0); HGB 13.1 gm/dL (11.4-16.0); Lymphocytes # (A) 2.3 k/uL (1.0-4.8); Lymphocytes % (A) 37 %; MCH 28.3 pg (25.0-35.0); MCHC 34.1 g/dL (31.0-37.0); MCV 83.1 fL (80.0-100.0); Mean Platelet Volume 5.5; Monocytes # (A) 0.3 k/uL (0-1.0); Monocytes % (A) 5 %; Neutrophils # (A) 3.4 k/uL (1.3-7.7); Neutrophils % (A) 54 %; Platelet Count 293 k/uL (150-450); RBC 4.64 m/uL (3.80-5.40); WBC 6.3 k/uL (3.8-10.6)
[2019-01-23 13:54] LABS: ALT 34 U/L (9-52); AST 32 U/L (14-36); African American GFR (CKD) >90 (>60 ml/min/1.73 sqM); Albumin 3.3 g/dL (3.5-5.0); Alkaline Phosphatase 71 U/L (38-126); Anion Gap 7 mmol/L; Blood Urea Nitrogen 8 mg/dL (7-17); Calcium 8.8 mg/dL (8.4-10.2); Carbon Dioxide 24 mmol/L (22-30); Chloride 108 mmol/L (98-107); Glucose 127 mg/dL (74-99); Potassium 3.4 mmol/L (3.5-5.1); Sodium 139 mmol/L (137-145); Total Bilirubin 0.4 mg/dL (0.2-1.3); Total Protein 5.9 g/dL (6.3-8.2)
--- NOTE | 2019-01-23 14:54 | PN ---
PROGRESS NOTE CHIEF COMPLAINT: Abdominal pain and vomiting. HISTORY OF PRESENT ILLNESS: This lady is about the same. She may feel a little bit better. She has had no hematemesis, melena, etc. PHYSICAL EXAMINATION: Chest is clear. Cardiac exam is normal. Abdomen is slightly protuberant and soft and non-tender. Jejunostomy tube is in place. IMPRESSION: Gastroparesis with intractable pain and nausea and vomiting. PLAN: Continue with her current program. MMODL / IJN: [id number] /
[2019-01-23] MEDS: MORPHINE SULFATE 4 MG/ML SYRINGE IV PRN (16:41)
[2019-01-23] MEDS: TOPIRAMATE PO SCH (21:17)
[2019-01-24] MEDS: HYDROmorphone 0.5 MG/0.5 ML SYRINGE IVP PRN ×8 (01:13→23:04)
[2019-01-24] MEDS: PROMETHAZINE INJ 25 MG in SODIUM CHLORIDE 0.9% 50 ML IVPB PRN ×4 (01:27→21:02)
[2019-01-24] MEDS: MORPHINE SULFATE 4 MG/ML SYRINGE IV PRN ×4 (02:26→18:48)
[2019-01-24] MEDS: LORazepam 2 MG/ML INJ IV PRN ×4 (03:57→22:58)
[2019-01-24] MEDS: diphenhydrAMINE 50 MG/ML 1 ML VIAL IVP PRN ×4 (03:58→22:58)
[2019-01-24] MEDS: SODIUM CHLORIDE 0.9% 1,000 ML IV SCH ×4 (04:25→12:23)
[2019-01-24] MEDS: THYROID, PORK 30 MG TAB PO SCH (06:45)
[2019-01-24] MEDS: PREVACID PO SCH ×2 (06:46→16:35)
[2019-01-24] MEDS: ENOXAPARIN 100 MG/ML SYRINGE SQ SCH (08:53)
[2019-01-24] MEDS: PRUCALOPRIDE SUCCINATE 2 MG PO SCH (08:54)
[2019-01-24] MEDS: MONTELUKAST 10 MG TAB PO SCH (08:54)
[2019-01-24] MEDS: MUPIROCIN 2% OINT 22 GM TUBE TOPICAL SCH ×3 (08:57→21:02)
[2019-01-24 11:20] LABS: ALT 32 U/L (9-52); AST 30 U/L (14-36); African American GFR (CKD) >90 (>60 ml/min/1.73 sqM); Albumin 3.3 g/dL (3.5-5.0); Alkaline Phosphatase 78 U/L (38-126); Anion Gap 7 mmol/L; Blood Urea Nitrogen 5 mg/dL (7-17); Calcium 9.1 mg/dL (8.4-10.2); Carbon Dioxide 19 mmol/L (22-30); Chloride 115 mmol/L (98-107); Glucose 81 mg/dL (74-99); Potassium 3.6 mmol/L (3.5-5.1); Sodium 141 mmol/L (137-145); Total Bilirubin 0.4 mg/dL (0.2-1.3); Total Protein 5.9 g/dL (6.3-8.2)
[2019-01-24 11:21] LABS: Basophils % (A) 0 %; Eosinophils # (A) 0.2 k/uL (0-0.7); Eosinophils % (A) 3 %; HCT 38.8 % (34.0-46.0); HGB 12.9 gm/dL (11.4-16.0); Lymphocytes # (A) 2.7 k/uL (1.0-4.8); Lymphocytes % (A) 41 %; MCH 28.4 pg (25.0-35.0); MCHC 33.3 g/dL (31.0-37.0); MCV 85.4 fL (80.0-100.0); Mean Platelet Volume 5.7; Monocytes # (A) 0.4 k/uL (0-1.0); Monocytes % (A) 6 %; Neutrophils # (A) 3.2 k/uL (1.3-7.7); Neutrophils % (A) 48 %; Platelet Count 307 k/uL (150-450); RBC 4.54 m/uL (3.80-5.40); RDW 13.3 % (11.5-15.5); WBC 6.7 k/uL (3.8-10.6)
--- NOTE | 2019-01-24 12:16 | PN ---
PROGRESS NOTE CHIEF COMPLAINT: Persistent abdominal pain and intractable vomiting. HISTORY OF PRESENT ILLNESS: This lady is no better. She thinks she is actually having a worse day. Potassium is also low below 3.5. PHYSICAL EXAMINATION: Her color is good. Chest is clear. Cardiac exam is normal. The abdomen is slightly protuberant, soft, and she is tender in the right upper quadrant. Bowel sounds are heard. IMPRESSION: 1. Gastroparesis with intractable nausea, vomiting and diarrhea. 2. Hypokalemia. PLAN: Replace potassium and otherwise hold with the same program. MMODL / IJN: [id number] /
[2019-01-24] MEDS: DEXTROSE 5%-0.2% NACL 1,000 ML IV SCH ×2 (13:50→21:02)
[2019-01-24] MEDS: TOPIRAMATE PO SCH (21:02)
[2019-01-25] MEDS: HYDROmorphone 0.5 MG/0.5 ML SYRINGE IVP PRN ×8 (02:09→23:16)
[2019-01-25] MEDS: PROMETHAZINE INJ 25 MG in SODIUM CHLORIDE 0.9% 50 ML IVPB PRN ×4 (03:24→21:22)
[2019-01-25] MEDS: diphenhydrAMINE 50 MG/ML 1 ML VIAL IVP PRN ×4 (05:09→23:16)
[2019-01-25] MEDS: LORazepam 2 MG/ML INJ IV PRN ×4 (05:09→23:16)
[2019-01-25] MEDS: THYROID, PORK 30 MG TAB PO SCH (06:45)
[2019-01-25] MEDS: PREVACID PO SCH ×2 (06:46→17:46)
[2019-01-25] MEDS: DEXTROSE 5%-0.2% NACL 1,000 ML IV SCH ×2 (06:47→17:52)
[2019-01-25] MEDS: MUPIROCIN 2% OINT 22 GM TUBE TOPICAL SCH ×3 (08:04→20:30)
[2019-01-25] MEDS: MONTELUKAST 10 MG TAB PO SCH (08:04)
[2019-01-25] MEDS: SCOPOLAMINE 1.5MG/72HR PATCH TRANSDERM SCH (08:04)
[2019-01-25] MEDS: ENOXAPARIN 100 MG/ML SYRINGE SQ SCH (08:04)
[2019-01-25] MEDS: PRUCALOPRIDE SUCCINATE 2 MG PO SCH (08:05)
[2019-01-25] MEDS: MORPHINE SULFATE 4 MG/ML SYRINGE IV PRN ×3 (09:37→21:29)
--- NOTE | 2019-01-25 15:22 | PN ---
PROGRESS NOTE CHIEF COMPLAINT: Intractable abdominal pain, nausea/vomiting. HISTORY OF PRESENT ILLNESS: This lady is still having episodes of vomiting. Pain is still present as well. She has had no hematemesis. She has had no fever. PHYSICAL EXAM: Abdomen is soft and nontender. Chest is clear and cardiac exam is normal. IMPRESSION: Gastroparesis with persistent abdominal pain and vomiting. PLAN: Continue with current program until her current episode begins to subside. MMODL / IJN: [id number] /
[2019-01-25] MEDS: TOPIRAMATE PO SCH (20:16)
[2019-01-26] MEDS: DEXTROSE 5%-0.2% NACL 1,000 ML IV SCH ×4 (02:29→21:10)
[2019-01-26] MEDS: HYDROmorphone 0.5 MG/0.5 ML SYRINGE IVP PRN ×7 (02:29→21:03)
[2019-01-26] MEDS: PROMETHAZINE INJ 25 MG in SODIUM CHLORIDE 0.9% 50 ML IVPB PRN ×4 (03:34→21:05)
[2019-01-26] MEDS: diphenhydrAMINE 50 MG/ML 1 ML VIAL IVP PRN ×3 (05:37→17:37)
[2019-01-26] MEDS: LORazepam 2 MG/ML INJ IV PRN ×3 (05:37→17:38)
[2019-01-26] MEDS: PREVACID PO SCH ×2 (05:52→17:38)
[2019-01-26] MEDS: THYROID, PORK 30 MG TAB PO SCH (05:52)
[2019-01-26] MEDS: ENOXAPARIN 100 MG/ML SYRINGE SQ SCH (08:58)
[2019-01-26] MEDS: PRUCALOPRIDE SUCCINATE 2 MG PO SCH (08:59)
[2019-01-26] MEDS: MONTELUKAST 10 MG TAB PO SCH (08:59)
[2019-01-26] MEDS: MUPIROCIN 2% OINT 22 GM TUBE TOPICAL SCH ×3 (09:13→21:04)
[2019-01-26] MEDS ORDERED: WATER FOR INJECTION, STERILE 10 ML IV ONE ×2 (11:21→17:29)
[2019-01-26] MEDS: MORPHINE SULFATE 4 MG/ML SYRINGE IV PRN ×2 (13:37→19:44)
--- NOTE | 2019-01-26 15:49 | PN ---
PROGRESS NOTE CHIEF COMPLAINT: Intractable abdominal pain and vomiting with gastroparesis. HISTORY OF PRESENT ILLNESS: This lady is just about the same. She feels that she is close to being able to go home, but the is still working on setting up palliative care from home. PHYSICAL EXAM: Abdomen is soft and slightly tender in the right upper quadrant. CHEST: Clear. Cardiac exam is normal. Bowel sounds present. IMPRESSION: Gastroparesis with intractable nausea and vomiting. PLAN: Await arrangements to be made at home and then she can be discharged. MMODL / IJN: [id number] /
[2019-01-26] MEDS: TOPIRAMATE PO SCH (21:03)
[2019-01-27] MEDS: diphenhydrAMINE 50 MG/ML 1 ML VIAL IVP PRN ×4 (00:14→18:54)
[2019-01-27] MEDS: LORazepam 2 MG/ML INJ IV PRN ×4 (00:14→18:53)
[2019-01-27] MEDS: HYDROmorphone 0.5 MG/0.5 ML SYRINGE IVP PRN ×8 (00:15→22:08)
[2019-01-27] MEDS: PROMETHAZINE INJ 25 MG in SODIUM CHLORIDE 0.9% 50 ML IVPB PRN ×4 (03:11→22:12)
[2019-01-27] MEDS: THYROID, PORK 30 MG TAB PO SCH (06:56)
[2019-01-27] MEDS: DEXTROSE 5%-0.2% NACL 1,000 ML IV SCH ×2 (06:59→17:11)
[2019-01-27] MEDS: ENOXAPARIN 100 MG/ML SYRINGE SQ SCH (09:49)
[2019-01-27] MEDS: PREVACID PO SCH ×2 (09:49→17:10)
[2019-01-27] MEDS: PRUCALOPRIDE SUCCINATE 2 MG PO SCH (09:50)
[2019-01-27] MEDS: MUPIROCIN 2% OINT 22 GM TUBE TOPICAL SCH ×3 (09:50→23:40)
[2019-01-27] MEDS: MONTELUKAST 10 MG TAB PO SCH (09:52)
[2019-01-27] MEDS ORDERED: WATER FOR INJECTION, STERILE 10 ML IV ONE ×2 (12:42→18:49)
--- NOTE | 2019-01-27 15:29 | P.PN ---
Subjective Progress Note Date: 01/27/19 Principal diagnosis: Intractable abdominal pain and vomiting secondary to gastroparesis. Patient is a 38-year-old female nondiabetic and idiopathic gastroparesis admitted to the hospital for intractable nausea vomiting and abdominal pain. 01/27/2019 Patient says that her abdominal pain is better today. Currently being continued on pain management with Dilaudid, she is also on Benadryl and Ativan. No fever no chills. Tolerating liquids slowly. Denied any chest pain or cassie rtness of breath. No headache or dizziness or lightheadedness. Anticipate discharge in next 24-48 hours with mood clinical improvement. Objective - Vital Signs Vital signs: Vital Signs Temp 98.8 F 01/27/19 12:20 Pulse 89 01/27/19 12:20 Resp 17 01/27/19 12:20 BP 125/77 01/27/19 12:20 Pulse Ox 98 01/27/19 12:20 Intake & Output 01/26/19 01/27/19 01/27/19 18:59 06:59 18:59 Other: Voiding Method Toilet # Voids 1 1 - Exam PHYSICAL EXAMINATION: Patient is lying in the bed comfortably, no acute distress, awake alert and oriented.. HEENT: Normocephalic. Neck is supple. Pupils reactive. Nostrils clear. Oral cavity is moist. Ears reveal no drainage. Neck reveals no JVD, carotid bruits, or thyromegaly. CHEST EXAMINATION: Trachea is central. Symmetrical expansion. Lung mi clear to auscultation and percussion. CARDIAC: Normal S1, S2 with no gallops. No murmurs ABDOMEN: Soft. Bowel sounds normal. No organomegaly. No abdominal bruits. Extremities: reveal no edema. No clubbing or cyanosis Neurologically awake, alert, oriented x3 with well-coordinated movements. No focal deficits noted Skin: No rash or skin lesions. Psychiatric: Coperative. Nonsuicidal Musculoskeletal: No joint swelling or deformity. Normal range of motion. - Labs CBC & Chem 7: 01/24/19 10:52 01/24/19 10:52 Assessment and Plan Assessment: Intractable nausea vomiting and abdominal pain secondary to idiopathic gastroparesis History of PEx1 and DVTx1. Currently on full anticoagulation with Lovenox Hypothyroidism GERD Chronic anemia History of migraine headaches History of VRE urinary tract infection Edna en Y for mesenteric ischemia. Depression DVT prophylaxis patient is already on full anticoagulation Plan 38 old female was admitted to the hospital with acute gastroparesis symptoms patient had extensive history for the past 4 years. Patient follows with [facility] and [facility] as well. Does have a history of gastric stimulator placement but was removed due to infection. Currently being continued on symptomatic management. Patient was encouraged with ambulation and advance diet as tolerated. Continue to follow closely and further recommendations based on the clinical course. Prognosis is guarded at this time. Time with Patient: Greater than 30
[2019-01-27] MEDS: MORPHINE SULFATE 4 MG/ML SYRINGE IV PRN ×2 (17:36→21:03)
[2019-01-27] MEDS: TOPIRAMATE PO SCH (23:40)
[2019-01-28] MEDS: LORazepam 2 MG/ML INJ IV PRN ×4 (01:02→20:08)
[2019-01-28] MEDS: HYDROmorphone 0.5 MG/0.5 ML SYRINGE IVP PRN ×8 (01:05→23:08)
[2019-01-28] MEDS: DEXTROSE 5%-0.2% NACL 1,000 ML IV SCH ×3 (01:13→16:13)
[2019-01-28] MEDS: PROMETHAZINE INJ 25 MG in SODIUM CHLORIDE 0.9% 50 ML IVPB PRN ×4 (04:17→23:51)
[2019-01-28] MEDS: THYROID, PORK 30 MG TAB PO SCH (08:04)
[2019-01-28] MEDS: SCOPOLAMINE 1.5MG/72HR PATCH TRANSDERM SCH (08:10)
[2019-01-28] MEDS: ENOXAPARIN 100 MG/ML SYRINGE SQ SCH (08:13)
[2019-01-28] MEDS: MUPIROCIN 2% OINT 22 GM TUBE TOPICAL SCH ×3 (08:20→21:04)
[2019-01-28] MEDS: PRUCALOPRIDE SUCCINATE 2 MG PO SCH (09:22)
[2019-01-28] MEDS: PREVACID PO SCH ×2 (09:22→17:52)
[2019-01-28] MEDS: MONTELUKAST 10 MG TAB PO SCH (09:23)
[2019-01-28 13:01] LABS: Basophils % (A) 1 %; Eosinophils # (A) 0.3 k/uL (0-0.7); Eosinophils % (A) 4 %; HCT 41.9 % (34.0-46.0); HGB 13.9 gm/dL (11.4-16.0); Lymphocytes # (A) 2.2 k/uL (1.0-4.8); Lymphocytes % (A) 34 %; MCHC 33.2 g/dL (31.0-37.0); MCV 84.2 fL (80.0-100.0); Mean Platelet Volume 5.8; Monocytes # (A) 0.3 k/uL (0-1.0); Monocytes % (A) 5 %; Neutrophils # (A) 3.5 k/uL (1.3-7.7); Neutrophils % (A) 54 %; Platelet Count 287 k/uL (150-450); RBC 4.97 m/uL (3.80-5.40); RDW 13.4 % (11.5-15.5); WBC 6.4 k/uL (3.8-10.6)
[2019-01-28 13:08] LABS: African American GFR (CKD) >90 (>60 ml/min/1.73 sqM); Anion Gap 9 mmol/L; Blood Urea Nitrogen <2 mg/dL (7-17); Calcium 9.2 mg/dL (8.4-10.2); Carbon Dioxide 20 mmol/L (22-30); Chloride 112 mmol/L (98-107); Glucose 95 mg/dL (74-99); Potassium 3.8 mmol/L (3.5-5.1); Sodium 141 mmol/L (137-145)
[2019-01-28] MEDS ORDERED: WATER FOR INJECTION, STERILE 10 ML IV ONE (13:24)
[2019-01-28] MEDS: diphenhydrAMINE 50 MG/ML 1 ML VIAL IVP PRN ×2 (13:36→20:07)
[2019-01-28] MEDS: MORPHINE SULFATE 4 MG/ML SYRINGE IV PRN ×2 (16:10→21:10)
[2019-01-28] MEDS: TOPIRAMATE PO SCH (21:04)
--- NOTE | 2019-01-29 00:16 | P.PN ---
Subjective Progress Note Date: 01/28/19 Principal diagnosis: Intractable abdominal pain and vomiting secondary to gastroparesis. Patient is a 38-year-old female nondiabetic and idiopathic gastroparesis admitted to the hospital for intractable nausea vomiting and abdominal pain. 01/27/2019 Patient says that her abdominal pain is better today. Currently being continued on pain management with Dilaudid, she is also on Benadryl and Ativan. No fever no chills. Tolerating liquids slowly. Denied any chest pain or cassie rtness of breath. No headache or dizziness or lightheadedness. Anticipate discharge in next 24-48 hours with mood clinical improvement. 01/28/2019 Patient is still complaining of abdominal pain and unable to tolerate oral diet. Currently patient does have minimal liquid intake. Patient will be started on enteral nutrition using J-tube. Otherwise currently being continued on Reglan and symptomatic management and pain management. Continue to follow closely. Patient has been afebrile. No chest pain or shortness of breath. No headache or dizziness or lightheadedness. No cough or sputum production. Current medications reviewed. Active Medications Diphenhydramine HCl (Benadryl) 25 mg IVP Q6HR PRN PRN Reason: Allergy Symptoms Last Admin: 01/28/19 20:07 Dose: 25 mg Documented by: Enoxaparin Sodium (Lovenox) 100 mg SQ DAILY [facility] Last Admin: 01/28/19 08:13 Dose: 100 mg Documented by: Hydromorphone HCl (Dilaudid) 0.5 mg IVP Q3HR PRN PRN Reason: Moderate Pain Last Admin: 01/28/19 23:08 Dose: 0.5 mg Documented by: Promethazine HCl 25 mg/ Sodium (Chloride) 51 mls @ 200 mls/hr IVPB Q6HR PRN PRN Reason: Nausea Last Admin: 01/28/19 23:51 Dose: 200 mls/hr Documented by: Dextrose/Sodium Chloride (Dextrose 5%-1/4ns Iv Soln) 1,000 mls @ 125 mls/hr IV .Q8H MILAN Last Admin: 01/28/19 16:13 Dose: 125 mls/hr Documented by: Lorazepam (Ativan) 0.5 mg IV Q6HR PRN PRN Reason: Anxiety Last Admin: 01/28/19 20:08 Dose: 0.5 mg Documented by: Montelukast Sodium (Singulair) 10 mg PO DAILY [facility] Last Admin: 01/28/19 09:23 Dose: 10 mg Documented by: Morphine Sulfate (Morphine Sulfate (Inj)) 4 mg IV Q4HR PRN PRN Reason: Severe Pain Last Admin: 01/28/19 21:10 Dose: 4 mg Documented by: Mupirocin (Bactroban Oint) 1 applic TOPICAL TID [facility] Last Admin: 01/28/19 21:04 Dose: 1 applic Documented by: Naloxone HCl (Narcan) 0.2 mg IV Q2M PRN PRN Reason: Opioid Reversal Patient's Own ( Prucalopride Succinate [Motegrity ] 2 Mg) 2 mg PO DAILY [facility] Last Admin: 01/28/19 09:22 Dose: 2 mg Documented by: Prevacid ( (Lansoprazole)) 30 each PO AC-BID [facility] Last Admin: 01/28/19 17:52 Dose: 30 each Documented by: Scopolamine (Transderm-Scop 1.5mg/72hr Patch) 1 patch TRANSDERM Q72H [facility] Last Admin: 01/28/19 08:10 Dose: 1 patch Documented by: Sumatriptan Succinate (Imitrex) 100 mg PO DAILY PRN PRN Reason: Migraine Headache Thyroid (Shirley Thyroid) 60 mg PO Q48H [facility] Last Admin: 01/28/19 08:04 Dose: 60 mg Documented by: Thyroid (Shirley Thyroid) 90 mg PO Q48H [facility] Last Admin: 01/27/19 06:56 Dose: 90 mg Documented by: Topiramate (Topamax) 50 mg PO HS [facility] Last Admin: 01/28/19 21:04 Dose: 50 mg Documented by: Objective - Vital Signs Vital signs: Vital Signs Temp 98.7 F 01/28/19 16:16 Pulse 85 01/28/19 16:16 Resp 16 01/28/19 16:16 BP 100/72 01/28/19 16:16 Pulse Ox 97 01/28/19 16:16 Intake & Output 01/27/19 01/28/19 01/28/19 18:59 06:59 18:59 Intake Total 30 30 Output Total 100 Balance 30 -100 30 Weight 76.3 kg Intake: Oral 30 30 Output: Emesis 100 Other: Voiding Method Toilet Toilet # Voids 2 2 - Exam PHYSICAL EXAMINATION: Patient is lying in the bed comfortably, no acute distress, awake alert and oriented.. HEENT: Normocephalic. Neck is supple. Pupils reactive. Nostrils clear. Oral cavity is moist. Ears reveal no drainage. Neck reveals no JVD, carotid bruits, or thyromegaly. CHEST EXAMINATION: Trachea is central. Symmetrical expansion. Lung mi clear to auscultation and percussion. CARDIAC: Normal S1, S2 with no gallops. No murmurs ABDOMEN: Soft. Bowel sounds normal. No organomegaly. No abdominal bruits. Extremities: reveal no edema. No clubbing or cyanosis Neurologically awake, alert, oriented x3 with well-coordinated movements. No focal deficits noted Skin: No rash or skin lesions. Psychiatric: Coperative. Nonsuicidal Musculoskeletal: No joint swelling or deformity. Normal range of motion. - Labs CBC & Chem 7: 01/28/19 12:35 01/28/19 12:35 Labs: Abnormal Lab Results - Last 24 Hours (Table) 01/28/19 Range/Units 12:35 Chloride 112 H (98-107) mmol/L Carbon Dioxide 20 L (22-30) mmol/L BUN <2 L (7-17) mg/dL Assessment and Plan Assessment: Intractable nausea vomiting and abdominal pain secondary to idiopathic gastroparesis History of PEx1 and DVTx1. Currently on full anticoagulation with Lovenox Hypothyroidism GERD Chronic anemia History of migraine headaches History of VRE urinary tract infection Edna en Y for mesenteric ischemia. Depression DVT prophylaxis patient is already on full anticoagulation Plan 38 old female was admitted to the hospital with acute gastroparesis symptoms patient had extensive history for the past 4 years. Patient follows with [facility] and [facility] as well. Does have a history of gastric stimulator placement but was removed due to infection. Currently being continued on symptomatic management. Patient was encouraged with ambulation and advance diet as tolerated. Started on J-tube feeding Continue to follow closely and further recommendations based on the clinical course. Prognosis is guarded at this time. Time with Patient: Greater than 30
[2019-01-29] MEDS: DEXTROSE 5%-0.2% NACL 1,000 ML IV SCH ×4 (01:00→20:29)
[2019-01-29] MEDS: LORazepam 2 MG/ML INJ IV PRN ×4 (02:09→21:08)
[2019-01-29] MEDS: HYDROmorphone 0.5 MG/0.5 ML SYRINGE IVP PRN ×7 (02:09→21:55)
[2019-01-29] MEDS: diphenhydrAMINE 50 MG/ML 1 ML VIAL IVP PRN ×4 (02:09→21:07)
[2019-01-29] MEDS: PROMETHAZINE INJ 25 MG in SODIUM CHLORIDE 0.9% 50 ML IVPB PRN ×3 (06:05→23:41)
[2019-01-29] MEDS: PREVACID PO SCH ×2 (06:30→17:50)
[2019-01-29] MEDS: THYROID, PORK 30 MG TAB PO SCH (06:30)
[2019-01-29] MEDS: MORPHINE SULFATE 4 MG/ML SYRINGE IV PRN ×3 (06:41→23:38)
[2019-01-29] MEDS ORDERED: WATER FOR INJECTION, STERILE 10 ML IV ONE ×2 (08:08→15:04)
[2019-01-29] MEDS: MONTELUKAST 10 MG TAB PO SCH (08:21)
[2019-01-29] MEDS: ENOXAPARIN 100 MG/ML SYRINGE SQ SCH (08:21)
[2019-01-29] MEDS: PRUCALOPRIDE SUCCINATE 2 MG PO SCH (08:21)
[2019-01-29] MEDS: MUPIROCIN 2% OINT 22 GM TUBE TOPICAL SCH ×3 (08:29→21:10)
--- NOTE | 2019-01-29 16:52 | PN ---
PROGRESS NOTE CHIEF COMPLAINT: Intractable abdominal pain and vomiting. HISTORY OF PRESENT ILLNESS: This lady was trying to make arrangements to go home with home care, but she started to have increasing pain and more frequent nausea and vomiting, and discharge was canceled. She will be continued on her usual program while she was in the hospital with analgesics and antiemetics until she calms down enough to be able to be released. PHYSICAL EXAMINATION: Her chest is clear. The abdomen is soft and not particularly tender. Bowel sounds are present and there are no masses. Jejunostomy tube is in place. IMPRESSION: 1. Intractable abdominal pain. 2. Intractable nausea and vomiting. PLAN: Cancel discharge and continue inpatient management. MMODL / IJN: [id number] /
[2019-01-29] MEDS: TOPIRAMATE PO SCH (21:52)
[2019-01-30] MEDS: HYDROmorphone 0.5 MG/0.5 ML SYRINGE IVP PRN ×5 (02:48→15:10)
[2019-01-30] MEDS: diphenhydrAMINE 50 MG/ML 1 ML VIAL IVP PRN ×3 (03:46→16:55)
[2019-01-30] MEDS: LORazepam 2 MG/ML INJ IV PRN ×2 (03:46→16:55)
[2019-01-30] MEDS: DEXTROSE 5%-0.2% NACL 1,000 ML IV SCH ×2 (03:50→12:22)
[2019-01-30] MEDS: THYROID, PORK 30 MG TAB PO SCH (06:34)
[2019-01-30] MEDS: PREVACID PO SCH ×2 (06:34→17:00)
[2019-01-30] MEDS: PRUCALOPRIDE SUCCINATE 2 MG PO SCH (08:11)
[2019-01-30] MEDS: MONTELUKAST 10 MG TAB PO SCH (08:11)
[2019-01-30] MEDS: ENOXAPARIN 100 MG/ML SYRINGE SQ SCH (08:11)
[2019-01-30] MEDS: MUPIROCIN 2% OINT 22 GM TUBE TOPICAL SCH ×2 (08:14→17:00)
[2019-01-30 09:30] VITALS: RESP 18
[2019-01-30 15:01] VITALS: BP 113/70; PULSE 67; TEMP 98.7
[2019-01-30] MEDS: PROMETHAZINE INJ 25 MG in SODIUM CHLORIDE 0.9% 50 ML IVPB PRN (15:10)
--- NOTE | 2019-02-01 10:15 | DS ---
DISCHARGE SUMMARY CHIEF COMPLAINT: Intractable abdominal pain and vomiting. HISTORY OF PRESENT ILLNESS AND PHYSICAL EXAM: Details of this lady's history and physical can be found in the initial workup. LABORATORY STUDIES: While she was in a hospital she had laboratory studies, details of which can be found in the laboratory section of her chart. COURSE IN HOSPITAL: After admission she was placed on bedrest, started on intravenous fluids with the usual regiment of IV pain medication and antiemetics. While in the hospital, her condition waxed and waned, but she continued to have generalized abdominal pain. Jejunostomy tube feedings were continued and she did consume oral feedings as well. Arrangements were made for her to get home care and it was felt that she could be discharged on 01/30. She will go home on her continuous program and she will be on analgesics and antiemetics which usually been prescribed by her own personal physician. FINAL DIAGNOSIS: 1. Gastroparesis. 2. Chronic abdominal pain. 3. Chronic intractable nausea and vomiting. OPERATIONS: None. CONSULTATION: None. She is improved. COLTEN / MEJIA: [id number] /
== END 2019-01-30 18:21 | disposition home health service (06) | DRG 392 ==
LOC: EC 18:17 → 6PED 23:05 → OBSVTOIN 01-23 15:19 → 4SSUR 01-30 09:06
PROVIDERS: ADMIT Family Medicine; ATTEND Family Medicine
DX: K31.84 Gastroparesis (principal); D64.9 Anemia, unspecified; E03.9 Hypothyroidism, unspecified; K21.9 Gastro-esophageal reflux disease without esophagitis; E86.0 Dehydration; E87.6 Hypokalemia; F41.9 Anxiety disorder, unspecified; G43.909 Migraine, unspecified, not intractable, without status migrainosus; Z87.440 Personal history of urinary (tract) infections; Z90.49 Acquired absence of other specified parts of digestive tract; Z79.899 Other long term (current) drug therapy; Z86.711 Personal history of pulmonary embolism; Z82.49 Family history of ischemic heart disease and other diseases of the circulatory system; Z00.6 Encounter for examination for normal comparison and control in clinical research program
CPT/HCPCS: 36415; 74018; 80048; 80053; 81003; 82150; 83690; 85025; 96361; 96365; 96366; 96375; 96376; 99285

== ENCOUNTER 2019-03-14 01:29 | Emergency (ER) | payer BC ==
[2019-03-14 01:37] VITALS: RESP 18
--- NOTE | 2019-03-14 02:29 | ED ---
Lower Extremity Injury HPI - General Chief Complaint: Extremity Injury, Lower Stated Complaint: Rt Ankle Pain Time Seen by Provider: 03/14/19 01:45 Source: patient Mode of arrival: wheelchair Limitations: no limitations - History of Present Illness Initial Comments: Belia is a pleasant 38-year-old female with very extensive past medical history most concerning for severe gastroparesis which has rendered her PICC line dependent for nutrition. Patient presents the emergency department today for evaluation of atraumatic right ankle pain. Patient reports that she was ambulating throughout the day without difficulty. This evening she was cleaning house after the children went to bed when she began to feel pain in her right lateral ankle. Patient does report she's had some pain in her heel lately but this seems worse. Her was concerned she could have a blood clot so they brought her to the ER for evaluation. She denies any fevers chills nausea vomiting. She reports she's been doing relatively well lately she's following at the [facility] for her gastric symptoms. - Related Data Home Medications Medication Instructions Recorded Confirmed Lansoprazole [Prevacid] 30 mg PO BID 02/02/18 01/21/19 Montelukast Chew [Singulair] 10 mg PO DAILY 02/02/18 01/21/19 Topiramate [Trokendi Xr] 50 mg PO HS 07/18/18 01/22/19 Ondansetron Odt [Zofran ODT] 8 mg PO Q8HR PRN 10/06/18 01/21/19 Thyroid,Pork [[place] Thyroid] 60 mg PO Q48H 10/06/18 01/21/19 Thyroid,Pork [[place] Thyroid] 90 mg PO Q48H 10/06/18 01/21/19 SUMAtriptan SUCCINATE [Imitrex] 100 mg PO DAILY PRN 10/19/18 01/21/19 Enoxaparin [Lovenox] 150 mg SQ DAILY 01/14/19 01/21/19 Prucalopride Succinate [Motegrity] 2 mg PO DAILY 01/14/19 01/21/19 Previous Rx's Medication Instructions Recorded Scopolamine 1.5MG/72Hr Patch 1 patch TRANSDERM Q72H #10 patch 07/31/18 [TransDerm Scop] Mupirocin Calcium [Bactroban 2% 1 applic TOPICAL TID 7 Days gm 10/19/18 Cream] Allergies Allergy/AdvReac Type Severity Reaction Status Date / Time metoclopramide [From Reglan] AdvReac Mild jittery Verified 03/14/19 01:37 prochlorperazine AdvReac Mild JITTERY Verified 03/14/19 01:37 [From Compazine] Review of Systems ROS Statement: Those systems with pertinent positive or pertinent negative responses have been documented in the HPI. ROS Other: All systems not noted in ROS Statement are negative. Past Medical History Past Medical History: GERD/Reflux, Pulmonary Embolus (PE), Thyroid Disorder Additional Past Medical History / Comment(s): Idiopathic gastroparesis, takes little in orally-has J tube for feedings,R pulmonary embolism , pancreatitis, hypothyroid, chronic anemia, sinus problems, migraine, dvt -2018. History of Any Multi-Drug Resistant Organisms: VRE Date of last positivie culture/infection: 08/01/18 MDRO Source:: VRE URINE Past Surgical History: Section, Cholecystectomy, Hernia Repair, T onsillectomy Additional Past Surgical History / Comment(s): gastric pacer with removal in spring 2017, J tube, x3, 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 J tube replaced Past Anesthesia/Blood Transfusion Reactions: No Reported Reaction Past Psychological History: Depression Smoking Status: Never smoker Past Alcohol Use History: Rare Past Drug Use History: None Reported - Past Family History Father Family Medical History: Hypertension Additional Family Medical History / Comment(s): . Mother Family Medical History: No Reported History Additional Family Medical History / Comment(s): . General Exam - General Exam Comments Initial Comments: Physical Exam GENERAL: Patient is well-developed and well-nourished. Patient is nontoxic and well-hydrated and is in no distress. HENT: Normocephalic, Atraumatic. EYES: PERRL, EOMI PULMONARY: Unlabored respirations. CARDIOVASCULAR: RRR Warm and well perfused extremities ABDOMEN: Non-distended SKIN: No rashes or bruising : Deferred NEUROLOGIC: Alert and oriented Normal speech Normal gait MUSCULOSKELETAL: Moving all extremities with no apparent injury Range of motion of the ankle without pain, the ankle is not swollen there is no erythema, she is neurovascularly intact distally. There is some mild tenderness to palpation of the lateral foot as well as tenderness to palpation of the heel consistent with plantar fasciitis PSYCHIATRIC: No SI/HI Limitations: no limitations Course Vital Signs 03/14/19 01:33 Temperature 98.3 F Pulse Rate 96 Respiratory 18 Rate Blood Pressure 131/80 O2 Sat by Pulse 100 Oximetry Medical Decision Making - Medical Decision Making The patient was seen and evaluated history was obtained from the patient and at bedside 38-year-old female with atraumatic pain in the lateral right ankle with no acute findings on physical exam however given the patient's extensive past medical history and dependence on pick line for feedings we will check electrolytes and labs to ensure that there is no significant electrolyte abnormality X-rays no acute findings. At this time I feel the patient's discomfort is likely musculoskeletal in nature. She denies injury. Patient will be discharged home with supportive care. Rest ice compression and elevation and anti-inflammatories follow up with primary care and if pain persists follow-up with orthopedic surgery. This plan was discussed the patient and at bedside who are agreeable. Patient discharged home in stable condition. - Lab Data Result diagrams: 03/14/19 02:30 03/14/19 02:30 Lab Results 03/14/19 03/14/19 Range/Units 02:30 02:30 WBC 11.0 H (3.8-10.6) k/uL RBC 4.22 (3.80-5.40) m/uL Hgb 12.3 (11.4-16.0) gm/dL Hct 35.9 (34.0-46.0) % MCV 85.2 (80.0-100.0) fL MCH 29.2 (25.0-35.0) pg MCHC 34.3 (31.0-37.0) g/dL RDW 13.7 (11.5-15.5) % Plt Count 364 (150-450) k/uL Neutrophils % 58 % Lymphocytes % 31 % Monocytes % 7 % Eosinophils % 2 % Basophils % 0 % Neutrophils # 6.4 (1.3-7.7) k/uL Lymphocytes # 3.4 (1.0-4.8) k/uL Monocytes # 0.7 (0-1.0) k/uL Eosinophils # 0.2 (0-0.7) k/uL Basophils # 0.0 (0-0.2) k/uL Sodium 138 (137-145) mmol/L Potassium 3.8 (3.5-5.1) mmol/L Chloride 107 (98-107) mmol/L Carbon Dioxide 24 (22-30) mmol/L Anion Gap 7 mmol/L BUN 18 H (7-17) mg/dL Creatinine 0.92 (0.52-1.04) mg/dL Est GFR (CKD-EPI)AfAm >90 (>60 ml/min/1.73 sqM) Est GFR (CKD-EPI)NonAf 81 (>60 ml/min/1.73 sqM) Glucose 85 (74-99) mg/dL Uric Acid 4.5 (3.7-7.4) mg/dL Calcium 9.4 (8.4-10.2) mg/dL Magnesium 1.9 (1.6-2.3) mg/dL Total Bilirubin 0.3 (0.2-1.3) mg/dL AST 24 (14-36) U/L ALT 23 (9-52) U/L Alkaline Phosphatase 107 (38-126) U/L Total Protein 6.2 L (6.3-8.2) g/dL Albumin 3.7 (3.5-5.0) g/dL Disposition Clinical Impression: Ankle pain, right Disposition: HOME SELF-CARE Condition: Stable Instructions (If sedation given, give patient instructions): Foot Contusion (ED) Is patient prescribed a controlled substance at d/c from ED?: No Referrals: Wong Adame MD [Primary Care Provider] - 1-2 days
[2019-03-14 03:08] LABS: ALT 23 U/L (9-52); AST 24 U/L (14-36); African American GFR (CKD) >90 (>60 ml/min/1.73 sqM); Albumin 3.7 g/dL (3.5-5.0); Alkaline Phosphatase 107 U/L (38-126); Anion Gap 7 mmol/L; Blood Urea Nitrogen 18 mg/dL (7-17); Calcium 9.4 mg/dL (8.4-10.2); Carbon Dioxide 24 mmol/L (22-30); Chloride 107 mmol/L (98-107); Glucose 85 mg/dL (74-99); Magnesium 1.9 mg/dL (1.6-2.3); Non-African American GFR(CKD) 81 (>60 ml/min/1.73 sqM); Potassium 3.8 mmol/L (3.5-5.1); Sodium 138 mmol/L (137-145); Total Bilirubin 0.3 mg/dL (0.2-1.3); Total Protein 6.2 g/dL (6.3-8.2); Uric Acid 4.5 mg/dL (3.7-7.4)
[2019-03-14 03:26] LABS: Basophils % (A) 0 %; Eosinophils # (A) 0.2 k/uL (0-0.7); Eosinophils % (A) 2 %; HCT 35.9 % (34.0-46.0); HGB 12.3 gm/dL (11.4-16.0); Lymphocytes # (A) 3.4 k/uL (1.0-4.8); Lymphocytes % (A) 31 %; MCH 29.2 pg (25.0-35.0); MCHC 34.3 g/dL (31.0-37.0); MCV 85.2 fL (80.0-100.0); Mean Platelet Volume 6.7; Monocytes # (A) 0.7 k/uL (0-1.0); Monocytes % (A) 7 %; Neutrophils # (A) 6.4 k/uL (1.3-7.7); Neutrophils % (A) 58 %; Platelet Count 364 k/uL (150-450); RBC 4.22 m/uL (3.80-5.40); RDW 13.7 % (11.5-15.5)
[2019-03-14 04:50] VITALS: BP 110/67; PULSE 86; TEMP 98
--- NOTE | 2019-03-14 10:04 | XR ---
EXAM: XR Right Ankle Complete, 3 or More Views CLINICAL HISTORY: Its. reason XR Reason: ankle pain TECHNIQUE: Frontal, lateral and oblique views of the right ankle. COMPARISON: No relevant prior studies available. FINDINGS: Bones/joints: Unremarkable. No acute fracture. No dislocation. Soft tissues: Unremarkable. IMPRESSION: Normal right ankle x-rays.
== END 2019-03-14 04:50 | disposition home or self-care (01) ==
LOC: EC 01:29
DX: M25.571 Pain in right ankle and joints of right foot (principal); K21.9 Gastro-esophageal reflux disease without esophagitis; E03.9 Hypothyroidism, unspecified; F32.9 Major depressive disorder, single episode, unspecified; Z79.899 Other long term (current) drug therapy; Z79.890 Hormone replacement therapy; Z88.8 Allergy status to other drugs, medicaments and biological substances; Z86.711 Personal history of pulmonary embolism; Z86.718 Personal history of other venous thrombosis and embolism
CPT/HCPCS: 36415; 80053; 83735; 84550; 85025; 99283

== ENCOUNTER 2019-03-25 15:44 | Emergency (ER) | payer BC ==
[2019-03-25 15:52] VITALS: RESP 18; TEMP 98.2
[2019-03-25] MEDS ORDERED: SODIUM CHLORIDE 0.9% 1,000 ML IV STA (16:12)
[2019-03-25] MEDS ORDERED: ONDANSETRON 4 MG/2 ML VIAL IVP STA (16:12)
[2019-03-25] MEDS ORDERED: HYDROmorphone 1 MG/ML 1 ML SYRINGE IVP STA (16:12)
[2019-03-25] MEDS ORDERED: LEVOFLOXACIN 500MG-D5W PMX 500 MG in DEXTROSE/WATER 1 100ML.BAG IVPB STA (16:16)
[2019-03-25 16:38] LABS: Basophils % (A) 0 %; Eosinophils % (A) 0 %; HCT 42.1 % (34.0-46.0); HGB 14.1 gm/dL (11.4-16.0); Lymphocytes # (A) 1.9 k/uL (1.0-4.8); Lymphocytes % (A) 14 %; MCH 28.4 pg (25.0-35.0); MCHC 33.6 g/dL (31.0-37.0); MCV 84.7 fL (80.0-100.0); Mean Platelet Volume 6.9; Monocytes # (A) 0.4 k/uL (0-1.0); Monocytes % (A) 3 %; Neutrophils # (A) 11.4 k/uL (1.3-7.7); Neutrophils % (A) 82 %; Platelet Count 402 k/uL (150-450); RBC 4.97 m/uL (3.80-5.40); RDW 13.8 % (11.5-15.5); WBC 13.9 k/uL (3.8-10.6)
[2019-03-25 16:48] LABS: Albumin 4.1 g/dL (3.5-5.0); Calcium 9.3 mg/dL (8.4-10.2); Total Bilirubin 0.3 mg/dL (0.2-1.3); Total Protein 6.8 g/dL (6.3-8.2)
[2019-03-25 17:17] LABS: Appearance,Urine Clear (Clear); Bacteria,Urine Rare /hpf; Bilirubin,Urine Negative (Negative); Blood,Urine Negative (Negative); Color,Urine Yellow; Glucose,Urine (UA) Negative (Negative); Ketones,Urine Negative (Negative); Leukocyte Esterase,Urine Negative (Negative); Mucus,Urine Many /hpf; Nitrite,Urine Negative (Negative); Protein,Urine 1+ (Negative); RBC,Urine 1 /hpf (0-5); Specific Gravity,Urine 1.043 (1.001-1.035); Squamous Epithelial Cell,Urine 4 /hpf (0-4); Urobilinogen,Urine <2.0 mg/dL (<2.0); WBC,Urine 2 /hpf (0-5)
--- NOTE | 2019-03-25 17:53 | ED ---
General Adult HPI - General Chief complaint: Skin/Abscess/Foreign Body Stated complaint: Feeding tube issue Time Seen by Provider: 03/25/19 15:57 Source: patient, RN notes reviewed Mode of arrival: ambulatory Limitations: no limitations - History of Present Illness Initial comments: 39-year-old female presents to the emergency department for a chief complaint of left upper quadrant pain. Patient states that she has a G-tube due to idiopathic gastroparesis. States that last Tuesday this started hurting. Patient saw her doctor who put her on Cipro after culturing this. She has been on this for about 5 days. However pain has remained constant in the LUQ. States J tube is functioning normally. She denies fevers or chills. Patient states her doctor was concerned about possible abscess so she wants a CT. Patient has no other complaints at this time including shortness of breath, chest pain, nausea or vomiting, headache, or visual changes. - Related Data Home Medications Medication Instructions Recorded Confirmed Lansoprazole [Prevacid] 30 mg PO BID 02/02/18 01/21/19 Montelukast Chew [Singulair] 10 mg PO DAILY 02/02/18 01/21/19 Topiramate [Trokendi Xr] 50 mg PO HS 07/18/18 01/22/19 Ondansetron Odt [Zofran ODT] 8 mg PO Q8HR PRN 10/06/18 01/21/19 Thyroid,Pork [[place] Thyroid] 60 mg PO Q48H 10/06/18 01/21/19 Thyroid,Pork [[place] Thyroid] 90 mg PO Q48H 10/06/18 01/21/19 SUMAtriptan SUCCINATE [Imitrex] 100 mg PO DAILY PRN 10/19/18 01/21/19 Enoxaparin [Lovenox] 150 mg SQ DAILY 01/14/19 01/21/19 Prucalopride Succinate [Motegrity] 2 mg PO DAILY 01/14/19 01/21/19 Previous Rx's Medication Instructions Recorded Scopolamine 1.5MG/72Hr Patch 1 patch TRANSDERM Q72H #10 patch 07/31/18 [TransDerm Scop] Mupirocin Calcium [Bactroban 2% 1 applic TOPICAL TID 7 Days gm 10/19/18 Cream] metroNIDAZOLE [Flagyl] 500 mg PO TID 7 Days #21 tab 03/25/19 Allergies Allergy/AdvReac Type Severity Reaction Status Date / Time metoclopramide [From Reglan] AdvReac Mild jittery Verified 03/25/19 15:52 prochlorperazine AdvReac Mild JITTERY Verified 03/25/19 15:52 [From Compazine] Review of Systems ROS Statement: Those systems with pertinent positive or pertinent negative responses have been documented in the HPI. ROS Other: All systems not noted in ROS Statement are negative. Past Medical History Past Medical History: GERD/Reflux, Pulmonary Embolus (PE), Thyroid Disorder Additional Past Medical History / Comment(s): Idiopathic gastroparesis, takes little in orally-has J tube for feedings,R pulmonary embolism , pancreatitis, hypothyroid, chronic anemia, sinus problems, migraine, dvt -2018. 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 J tube replaced Past Anesthesia/Blood Transfusion Reactions: No Reported Reaction Past Psychological History: Depression Smoking Status: Never smoker Past Alcohol Use History: Rare Past Drug Use History: None Reported - Past Family History Father Family Medical History: Hypertension Additional Family Medical History / Comment(s): . Mother Family Medical History: No Reported History Additional Family Medical History / Comment(s): . General Exam Limitations: no limitations General appearance: alert, in no apparent distress Eye exam: Present: normal appearance, PERRL, EOMI. Absent: scleral icterus, conjunctival injection, periorbital swelling ENT exam: Present: normal exam, mucous membranes moist Neck exam: Present: normal inspection, full ROM. Absent: tenderness, meningismus, lymphadenopathy Respiratory exam: Present: normal lung sounds bilaterally. Absent: respiratory distress, wheezes, rales, rhonchi, stridor Cardiovascular Exam: Present: regular rate, normal rhythm, normal heart sounds. Absent: systolic murmur, diastolic murmur, rubs, gallop, clicks GI/Abdominal exam: Present: soft, tenderness (tenderness around J tube), normal bowel sounds, other (erythema surrounding J-tube). Absent: distended, guarding, rebound, rigid Course Vital Signs 03/25/19 03/25/19 15:50 18:30 Temperature 98.2 F Pulse Rate 112 H 70 Respiratory 18 18 Rate Blood Pressure 128/92 117/80 O2 Sat by Pulse 100 100 Oximetry Medical Decision Making - Medical Decision Making Patient initially tachycardic however this did improve throughout patient's stay to 70. CBC did show a white blood cell count of 13.9. Patient afebrile. CMP unremarkable. Patient was started on Cipro about 5 days ago. This was apparently after a culture sensitive to Cipro was obtained. Patient states that her physician considered starting her on Flagyl as well but did not do so at the time. CT of the abdomen and pelvis with contrast showed J-tube position unchanged from prior. There is a possible acute soft tissue infection mid abdominal level below the umbilicus. However this is not clinically seen on exam. Patient gets subcutaneous injections in this area so this is likely the cause. I discussed options with patient. Given close proximity to [place] an appointment with primary care tomorrow patient prefers to go home and follow up outpatient. I did give patient an IV dose of Levaquin as we do not have Cipro IV. I also will start patient on Flagyl as her primary care doctor was considering this. I recommended patient attend her appointment tomorrow with her primary care doctor that is already scheduled. If she has any worsening symptoms she will return here or to [facility] where her specialists are located. - Lab Data Result diagrams: 03/25/19 16:20 03/25/19 16:20 Lab Results 03/25/19 03/25/19 03/25/19 Range/Units 16:20 16:20 16:20 WBC 13.9 H (3.8-10.6) k/uL RBC 4.97 (3.80-5.40) m/uL Hgb 14.1 (11.4-16.0) gm/dL Hct 42.1 (34.0-46.0) % MCV 84.7 (80.0-100.0) fL MCH 28.4 (25.0-35.0) pg MCHC 33.6 (31.0-37.0) g/dL RDW 13.8 (11.5-15.5) % Plt Count 402 (150-450) k/uL Neutrophils % 82 % Lymphocytes % 14 % Monocytes % 3 % Eosinophils % 0 % Basophils % 0 % Neutrophils # 11.4 H (1.3-7.7) k/uL Lymphocytes # 1.9 (1.0-4.8) k/uL Monocytes # 0.4 (0-1.0) k/uL Eosinophils # 0.0 (0-0.7) k/uL Basophils # 0.0 (0-0.2) k/uL Sodium 141 (137-145) mmol/L Potassium 4.0 (3.5-5.1) mmol/L Chloride 111 H (98-107) mmol/L Carbon Dioxide 22 (22-30) mmol/L Anion Gap 8 mmol/L BUN 17 (7-17) mg/dL Creatinine 0.96 (0.52-1.04) mg/dL Est GFR (CKD-EPI)AfAm 87 (>60 ml/min/1.73 sqM) Est GFR (CKD-EPI)NonAf 76 (>60 ml/min/1.73 sqM) Glucose 105 H (74-99) mg/dL Plasma Lactic Acid Frank 0.7 (0.7-2.0) mmol/L Calcium 9.3 (8.4-10.2) mg/dL Total Bilirubin 0.3 (0.2-1.3) mg/dL AST 14 (14-36) U/L ALT 12 (4-34) U/L Alkaline Phosphatase 94 (38-126) U/L Total Protein 6.8 (6.3-8.2) g/dL Albumin 4.1 (3.5-5.0) g/dL Amylase 77 (30-110) U/L Lipase 77 (23-300) U/L Urine Color Urine Appearance (Clear) Urine pH (5.0-8.0) Ur Specific [place] (1.001-1.035) Urine Protein (Negative) Urine Glucose (UA) (Negative) Urine Ketones (Negative) Urine Blood (Negative) Urine Nitrite (Negative) Urine Bilirubin (Negative) Urine Urobilinogen (<2.0) mg/dL Ur Leukocyte Esterase (Negative) Urine RBC (0-5) /hpf Urine WBC (0-5) /hpf Ur Squamous Epith Cells (0-4) /hpf Urine Bacteria (None) /hpf Urine Mucus (None) /hpf Urine HCG, Qual (Not Detectd) 03/25/19 03/25/19 Range/Units 16:50 16:50 WBC (3.8-10.6) k/uL RBC (3.80-5.40) m/uL Hgb (11.4-16.0) gm/dL Hct (34.0-46.0) % MCV (80.0-100.0) fL MCH (25.0-35.0) pg MCHC (31.0-37.0) g/dL RDW (11.5-15.5) % Plt Count (150-450) k/uL Neutrophils % % Lymphocytes % % Monocytes % % Eosinophils % % Basophils % % Neutrophils # (1.3-7.7) k/uL Lymphocytes # (1.0-4.8) k/uL Monocytes # (0-1.0) k/uL Eosinophils # (0-0.7) k/uL Basophils # (0-0.2) k/uL Sodium (137-145) mmol/L Potassium (3.5-5.1) mmol/L Chloride (98-107) mmol/L Carbon Dioxide (22-30) mmol/L Anion Gap mmol/L BUN (7-17) mg/dL Creatinine (0.52-1.04) mg/dL Est GFR (CKD-EPI)AfAm (>60 ml/min/1.73 sqM) Est GFR (CKD-EPI)NonAf (>60 ml/min/1.73 sqM) Glucose (74-99) mg/dL Plasma Lactic Acid Frank (0.7-2.0) mmol/L Calcium (8.4-10.2) mg/dL Total Bilirubin (0.2-1.3) mg/dL AST (14-36) U/L ALT (4-34) U/L Alkaline Phosphatase (38-126) U/L Total Protein (6.3-8.2) g/dL Albumin (3.5-5.0) g/dL Amylase (30-110) U/L Lipase (23-300) U/L Urine Color Yellow Urine Appearance Clear (Clear) Urine pH 6.0 (5.0-8.0) Ur Specific [place] 1.043 H (1.001-1.035) Urine Protein 1+ H (Negative) Urine Glucose (UA) Negative (Negative) Urine Ketones Negative (Negative) Urine Blood Negative (Negative) Urine Nitrite Negative (Negative) Urine Bilirubin Negative (Negative) Urine Urobilinogen <2.0 (<2.0) mg/dL Ur Leukocyte Esterase Negative (Negative) Urine RBC 1 (0-5) /hpf Urine WBC 2 (0-5) /hpf Ur Squamous Epith Cells 4 (0-4) /hpf Urine Bacteria Rare H (None) /hpf Urine Mucus Many H (None) /hpf Urine HCG, Qual Not Detected (Not Detectd) Disposition Clinical Impression: Abdominal pain Disposition: HOME SELF-CARE Condition: Good Additional Instructions: Please take Flagyl in addition to Cipro. Attend you appointment with your primary care provider tomorrow. If you have any worsening symptoms or fevers return to the emergency department. Prescriptions: metroNIDAZOLE [Flagyl] 500 mg PO TID 7 Days #21 tab Is patient prescribed a controlled substance at d/c from ED?: No Referrals: Wong Adame MD [Primary Care Provider] - 1-2 days Time of Disposition: 18:39
--- NOTE | 2019-03-25 17:56 | CT ---
EXAMINATION TYPE: CT abdomen pelvis w con DATE OF EXAM: 03/25/2019 HISTORY: Left upper quadrant pain around j tube. CT DLP: 996.3mGycm Automated Exposure Control for Dose Reduction was Utilized. CONTRAST: CT scan of the abdomen and pelvis is performed with IV Contrast, patient injected with 100 mL of Isov ue 300. COMPARISON: CT abdomen and pelvis December 11, 2018 FINDINGS: LUNG BASES: No significant abnormality is appreciated. LIVER/GB: Cholecystectomy clips are redemonstrated. PANCREAS: No significant abnormality is seen. SPLEEN: No significant abnormality is seen. ADRENALS: No significant abnormality is seen. KIDNEYS: No significant abnormality is seen. BOWEL: Evaluation bowel suboptimal secondary to lack of enteric contrast. Linear densities suspected suture near stomach axial image 13 redemonstrated. Stable positioning percutaneous J-tube axial image 35 left mid abdomen with tumoral extension into bowel pass inflated balloon not clearly seen on curr ent study. There are surgical coils sutures and bowel loop just inferior to this. There is persistent soft tissue thickening along the percutaneous portion of the J-tube suggesting has been placed chron ically. Bowel is poorly distended with adjacent bowel loops, localization within bowel likely present but cannot be confirmed on this CT without contrast. No suspicious small or large bowel dilatation. Fecal fluid level in the rectum is present. UTERUS/ADNEXA: Persistent anteverted uterus with central metallic IUD. LYMPH NODES: No greater than 1cm abdominal or pelvic lymph nodes are appreciated. OSSEOUS STRUCTURES: No significant abnormality is seen. OTHER: Slightly more prominent anterior fat stranding and rounded nodularity lower anterior abdominal wall axial image 53 could reflect focal cellulitis or soft tissue infection at this level. IMPRESSION: Possible acute soft tissue infection or cellulitis mid abdominal level below umbilicus. J -tube position unchanged from prior.
[2019-03-25] MEDS ORDERED: HYDROmorphone 0.5 MG/0.5 ML SYRINGE IVP STA (18:30)
[2019-03-25 18:31] VITALS: BP 117/80; PULSE 70
== END 2019-03-25 18:55 | disposition home or self-care (01) ==
LOC: EC 15:44
DX: R10.12 Left upper quadrant pain (principal); K21.9 Gastro-esophageal reflux disease without esophagitis; E03.9 Hypothyroidism, unspecified; D64.9 Anemia, unspecified; F32.9 Major depressive disorder, single episode, unspecified; Z79.890 Hormone replacement therapy; Z79.899 Other long term (current) drug therapy; Z88.8 Allergy status to other drugs, medicaments and biological substances; Z86.711 Personal history of pulmonary embolism; Z86.718 Personal history of other venous thrombosis and embolism; Z93.1 Gastrostomy status; Z87.19 Personal history of other diseases of the digestive system; Z90.49 Acquired absence of other specified parts of digestive tract
CPT/HCPCS: 36415; 80053; 82150; 83605; 83690; 85025; 81001; 81025; 87040; 74177; 96365; 96366; 96375 ×2; 96376; 99284; J2405; J1956; J1170 ×2; Q9967

== ENCOUNTER 2019-03-29 13:43 | Inpatient (IN) | payer BC ==
[2019-03-29] MEDS ORDERED: MORPHINE SULFATE 4 MG/ML SYRINGE IV STA (14:13)
--- NOTE | 2019-03-29 14:20 | ED ---
General Adult HPI - General Chief complaint: Shortness of Breath Stated complaint: arm pain, Hx of DVT & PE, SOB Time Seen by Provider: 03/29/19 14:03 Source: patient, RN notes reviewed Mode of arrival: ambulatory Limitations: no limitations - History of Present Illness Initial comments: Patient is a pleasant 39-year-old female presenting to the emergency Department with right arm discomfort. Patient does have PICC line present for the past month or 2 for TPN. Patient does have history of gastroparesis. Patient states she has had some mild discomfort for the past couple of days. Patient states she is able to flush it and appears to be functioning well. Patient states she moved her arm earlier today discomfort started becoming much more severe. Patient is unclear whether or not there could be some swelling. Discomfort is increased with movement. Patient states she may feel slightly short of breath. Patient does have history of DVT and PE and is on Lovenox. - Related Data Home Medications Medication Instructions Recorded Confirmed Lansoprazole [Prevacid] 30 mg PO BID 02/02/18 03/29/19 Montelukast Chew [Singulair] 10 mg PO DAILY 02/02/18 03/29/19 Topiramate [Trokendi Xr] 50 mg PO HS 07/18/18 03/29/19 Thyroid,Pork [[place] Thyroid] 60 mg PO Q48H 10/06/18 03/29/19 Thyroid,Pork [[place] Thyroid] 90 mg PO Q48H 10/06/18 03/29/19 SUMAtriptan SUCCINATE [Imitrex] 100 mg PO DAILY PRN 10/19/18 03/29/19 Enoxaparin [Lovenox] 135 mg SQ DAILY 01/14/19 03/29/19 Prucalopride Succinate [Motegrity] 2 mg PO DAILY 01/14/19 03/29/19 Amoxic-Pot Clav 250-62.5MG/5Ml 10 ml PO TID 03/29/19 03/29/19 [Augmentin 250-62.5 mg/5 ml Susp.] HYDROmorphone [Dilaudid] 4 mg PO Q8H PRN 03/29/19 03/29/19 Ondansetron HCl [Zofran] 8 mg PO Q8H PRN 03/29/19 03/29/19 Previous Rx's Medication Instructions Recorded Scopolamine 1.5MG/72Hr Patch 1 patch TRANSDERM Q72H #10 patch 07/31/18 [TransDerm Scop] Mupirocin Calcium [Bactroban 2% 1 applic TOPICAL TID 7 Days gm 10/19/18 Cream] Allergies Allergy/AdvReac Type Severity Reaction Status Date / Time metoclopramide [From Reglan] AdvReac Mild jittery Verified 03/29/19 16:12 prochlorperazine AdvReac Mild JITTERY Verified 03/29/19 16:12 [From Compazine] Review of Systems ROS Statement: Those systems with pertinent positive or pertinent negative responses have been documented in the HPI. ROS Other: All systems not noted in ROS Statement are negative. Constitutional: Denies: fever Eyes: Denies: eye pain ENT: Denies: ear pain Respiratory: Reports: as per HPI Cardiovascular: Denies: chest pain Endocrine: Denies: fatigue Gastrointestinal: Denies: abdominal pain Genitourinary: Denies: dysuria Musculoskeletal: Reports: as per HPI. Denies: back pain Skin: Denies: rash Neurological: Denies: weakness Past Medical History Past Medical History: Deep Vein Thrombosis (DVT), GERD/Reflux, Pulmonary Embolus (PE), Thyroid Disorder Additional Past Medical History / Comment(s): Idiopathic gastroparesis, takes little in orally-has J tube for feedings,R pulmonary embolism -2017, pancreatitis, hypothyroid, chronic anemia, sinus problems, migraine, dvt -2018. 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 J tube replaced Past Anesthesia/Blood Transfusion Reactions: No Reported Reaction Past Psychological History: Depression Smoking Status: Never smoker Past Alcohol Use History: Rare Past Drug Use History: None Reported - Past Family History Father Family Medical History: Hypertension Additional Family Medical History / Comment(s): . Mother Family Medical History: No Reported History Additional Family Medical History / Comment(s): . General Exam Limitations: no limitations General appearance: alert, in no apparent distress Head exam: Present: normocephalic Eye exam: Present: normal appearance Neck exam: Present: normal inspection Respiratory exam: Present: normal lung sounds bilaterally Cardiovascular Exam: Present: regular rate, normal rhythm Expanded Peripheral pulses: 2+: Radial (R) GI/Abdominal exam: Present: soft. Absent: tenderness Extremities exam: Present: normal inspection, full ROM (Pain with active range of motion), tenderness (Minimal tenderness entire right arm) Neurological exam: Present: alert Psychiatric exam: Present: normal affect, normal mood Skin exam: Present: normal color Course Vital Signs 03/29/19 13:51 Temperature 99.5 F Pulse Rate 79 Respiratory 22 Rate Blood Pressure 118/72 O2 Sat by Pulse 94 L Oximetry EKG Findings - EKG Comments: EKG Findings:: Normal sinus rhythm 76. DE 134. QRS 82. QT 366. QTc 411. Normal axis. Normal QRS. No acute ST change. Medical Decision Making - Medical Decision Making Dr. Adame was notified of patient - Lab Data Result diagrams: 03/29/19 15:49 03/29/19 15:49 Lab Results 03/29/19 03/29/19 03/29/19 Range/Units 15:49 15:49 15:49 WBC 9.0 (3.8-10.6) k/uL RBC 4.81 (3.80-5.40) m/uL Hgb 13.8 (11.4-16.0) gm/dL Hct 41.9 (34.0-46.0) % MCV 87.1 (80.0-100.0) fL MCH 28.6 (25.0-35.0) pg MCHC 32.9 (31.0-37.0) g/dL RDW 14.0 (11.5-15.5) % Plt Count 284 (150-450) k/uL Neutrophils % 62 % Lymphocytes % 28 % Monocytes % 5 % Eosinophils % 3 % Basophils % 0 % Neutrophils # 5.6 (1.3-7.7) k/uL Lymphocytes # 2.5 (1.0-4.8) k/uL Monocytes # 0.5 (0-1.0) k/uL Eosinophils # 0.2 (0-0.7) k/uL Basophils # 0.0 (0-0.2) k/uL PT 9.9 (9.0-12.0) sec INR 0.9 (<1.2) APTT 22.5 (22.0-30.0) sec Sodium 139 (137-145) mmol/L Potassium 4.2 (3.5-5.1) mmol/L Chloride 110 H (98-107) mmol/L Carbon Dioxide 20 L (22-30) mmol/L Anion Gap 9 mmol/L BUN 16 (7-17) mg/dL Creatinine 0.89 (0.52-1.04) mg/dL Est GFR (CKD-EPI)AfAm >90 (>60 ml/min/1.73 sqM) Est GFR (CKD-EPI)NonAf 83 (>60 ml/min/1.73 sqM) Glucose 78 (74-99) mg/dL Calcium 9.2 (8.4-10.2) mg/dL Magnesium 2.1 (1.6-2.3) mg/dL Total Bilirubin 0.3 (0.2-1.3) mg/dL AST 21 (14-36) U/L ALT 11 (4-34) U/L Alkaline Phosphatase 105 (38-126) U/L Troponin I (0.000-0.034) ng/mL Total Protein 6.4 (6.3-8.2) g/dL Albumin 3.8 (3.5-5.0) g/dL 03/29/19 Range/Units 15:49 WBC (3.8-10.6) k/uL RBC (3.80-5.40) m/uL Hgb (11.4-16.0) gm/dL Hct (34.0-46.0) % MCV (80.0-100.0) fL MCH (25.0-35.0) pg MCHC (31.0-37.0) g/dL RDW (11.5-15.5) % Plt Count (150-450) k/uL Neutrophils % % Lymphocytes % % Monocytes % % Eosinophils % % Basophils % % Neutrophils # (1.3-7.7) k/uL Lymphocytes # (1.0-4.8) k/uL Monocytes # (0-1.0) k/uL Eosinophils # (0-0.7) k/uL Basophils # (0-0.2) k/uL PT (9.0-12.0) sec INR (<1.2) APTT (22.0-30.0) sec Sodium (137-145) mmol/L Potassium (3.5-5.1) mmol/L Chloride (98-107) mmol/L Carbon Dioxide (22-30) mmol/L Anion Gap mmol/L BUN (7-17) mg/dL Creatinine (0.52-1.04) mg/dL Est GFR (CKD-EPI)AfAm (>60 ml/min/1.73 sqM) Est GFR (CKD-EPI)NonAf (>60 ml/min/1.73 sqM) Glucose (74-99) mg/dL Calcium (8.4-10.2) mg/dL Magnesium (1.6-2.3) mg/dL Total Bilirubin (0.2-1.3) mg/dL AST (14-36) U/L ALT (4-34) U/L Alkaline Phosphatase (38-126) U/L Troponin I <0.012 (0.000-0.034) ng/mL Total Protein (6.3-8.2) g/dL Albumin (3.5-5.0) g/dL - Radiology Data Radiology results: report reviewed (Ultrasound right upper extremity does show acute DVT involving subclavian axial and brachial vein. CT angios chest shows no pulmonary embolus. Patient's right arm is down and PICC line tip is obscured by dense contrast bolus.) Disposition Clinical Impression: DVT (deep venous thrombosis) Disposition: ADMITTED IP TO THIS HOSP Is patient prescribed a controlled substance at d/c from ED?: No Referrals: Wong Adame MD [Primary Care Provider] - 1-2 days Decision Time: 17:34
--- NOTE | 2019-03-29 15:57 | CT ---
EXAMINATION TYPE: CT angio chest DATE OF EXAM: 03/29/2019 COMPARISON: 07/17/2018 HISTORY: 39-year-old female with shortness of breath, Dyspnea and right arm pain and swelling. TECHNIQUE: Contiguous axial scanning of the chest performed with IV Contrast, patient injected with 1 00 mL of Isovue 370. Coronal/sagittal MIP reconstructions performed. CT DLP: 350.8 mGycm Automated exposure control for dose reduction was used. FINDINGS: Heart normal size without pericardial effusion. No flattening of the interventricular septum or reflu x of contrast into hepatic veins. Aorta normal caliber with conventional vessel branching anatomy. Satisfactory opacification of the pulmonary system without evidence for pulmonary embolus. Some prominent but nonenlarged left axillary lymph nodes measure up to 9 mm. The patient's right arm is down. There is a right PICC line with tip obscured by the dense contrast bolus. No consolidation or pleural effusion. Visualized upper abdomen shows a hilar splenule and expected mottled early arterial phase enhancement of the spleen. Cholecystectomy clips. Bones: No osseous destructive process. IMPRESSION: 1. NO EVIDENCE FOR PULMONARY EMBOLUS. 2. NO ACUTE PULMONARY PROCESS. 3. THE PATIENT'S RIGHT ARM IS DOWN. CORRELATE TO THE REASON FOR THIS. WE ALSO NOTE AN INDWELLING R IGHT-SIDED PICC LINE. THE PICC LINE TIP IS OBSCURED BY THE DENSE CONTRAST BOLUS.
[2019-03-29 16:17] LABS: Basophils % (A) 0 %; Eosinophils # (A) 0.2 k/uL (0-0.7); Eosinophils % (A) 3 %; HCT 41.9 % (34.0-46.0); HGB 13.8 gm/dL (11.4-16.0); Lymphocytes # (A) 2.5 k/uL (1.0-4.8); Lymphocytes % (A) 28 %; MCH 28.6 pg (25.0-35.0); MCHC 32.9 g/dL (31.0-37.0); MCV 87.1 fL (80.0-100.0); Mean Platelet Volume 6.9; Monocytes # (A) 0.5 k/uL (0-1.0); Monocytes % (A) 5 %; Neutrophils # (A) 5.6 k/uL (1.3-7.7); Neutrophils % (A) 62 %; Platelet Count 284 k/uL (150-450); RBC 4.81 m/uL (3.80-5.40)
[2019-03-29 16:22] LABS: INR 0.9 (<1.2); Partial Thromboplastin Time 22.5 sec (22.0-30.0); Prothrombin Time 9.9 sec (9.0-12.0)
[2019-03-29 16:33] LABS: ALT 11 U/L (4-34); AST 21 U/L (14-36); African American GFR (CKD) >90 (>60 ml/min/1.73 sqM); Albumin 3.8 g/dL (3.5-5.0); Alkaline Phosphatase 105 U/L (38-126); Anion Gap 9 mmol/L; Blood Urea Nitrogen 16 mg/dL (7-17); Calcium 9.2 mg/dL (8.4-10.2); Carbon Dioxide 20 mmol/L (22-30); Chloride 110 mmol/L (98-107); Glucose 78 mg/dL (74-99); Magnesium 2.1 mg/dL (1.6-2.3); Non-African American GFR(CKD) 83 (>60 ml/min/1.73 sqM); Potassium 4.2 mmol/L (3.5-5.1); Sodium 139 mmol/L (137-145); Total Bilirubin 0.3 mg/dL (0.2-1.3); Total Protein 6.4 g/dL (6.3-8.2)
--- NOTE | 2019-03-29 16:54 | US ---
EXAMINATION TYPE: US venous doppler duplex UE RT DATE OF EXAM: 03/29/2019 COMPARISON: NONE CLINICAL HISTORY: Right arm pain. Right arm pain has a picc line. SIDE PERFORMED: Right Right Arm: Clot visualized from mid Subclavian vein through the Basilic Vein. IMPRESSION: There is acute deep venous thrombosis involving the subclavian and axial and brachial vein.
[2019-03-29] MEDS ORDERED: HYDROmorphone 0.5 MG/0.5 ML SYRINGE IVP PRN (17:34)
[2019-03-29] MEDS ORDERED: HEPARIN SODIUM,PORCINE 10,000 UNIT/ML 1 ML VIAL IV ONE (17:34)
[2019-03-29] MEDS ORDERED: NALOXONE 0.4 MG/ML 1 ML VIAL IV PRN (17:34)
[2019-03-29] MEDS ORDERED: HYDROmorphone 1 MG/ML 1 ML SYRINGE IVP STA (17:36)
[2019-03-29] MEDS: SODIUM CHLORIDE 0.9% 1,000 ML IV SCH (17:54)
[2019-03-29] MEDS: HEPARIN SOD,PORK IN 0.45% NACL 25,000 UNIT in 0.45% NACL 1 250ML.BAG IV SCH (17:57)
[2019-03-29] MEDS ORDERED: SUMAtriptan SUCCINATE 50 MG TAB PO PRN (20:49)
[2019-03-29] MEDS ORDERED: PANTOPRAZOLE 40 MG TABLET PO SCH (21:00)
[2019-03-29] MEDS ORDERED: PANTOPRAZOLE SODIUM 40 MG GRANULE PKT PEG/G-TUBE SCH (21:02)
[2019-03-29] MEDS: THYROID, PORK 30 MG TAB PO SCH (21:31)
[2019-03-29] MEDS: MUPIROCIN 2% OINT 22 GM TUBE TOPICAL SCH (22:16)
[2019-03-29] MEDS: AMOXIC-POT CLAV 200-28.5MG/5ML 100 ML BOTTLE PO SCH (22:16)
[2019-03-29] MEDS: SCOPOLAMINE 1.5MG/72HR PATCH TRANSDERM SCH (22:17)
[2019-03-29] MEDS: HYDROmorphone 1 MG/ML 1 ML SYRINGE IVP PRN (22:19)
[2019-03-30] MEDS: HYDROmorphone 1 MG/ML 1 ML SYRINGE IVP PRN ×7 (01:33→22:04)
[2019-03-30] MEDS ORDERED: PANTOPRAZOLE 40 MG TABLET PO SCH (07:30)
[2019-03-30 08:11] LABS: Basophils % (A) 0 %; Eosinophils # (A) 0.3 k/uL (0-0.7); Eosinophils % (A) 3 %; HCT 39.5 % (34.0-46.0); HGB 12.9 gm/dL (11.4-16.0); Lymphocytes # (A) 3.6 k/uL (1.0-4.8); Lymphocytes % (A) 40 %; MCH 28.3 pg (25.0-35.0); MCHC 32.7 g/dL (31.0-37.0); MCV 86.5 fL (80.0-100.0); Mean Platelet Volume 6.9; Monocytes # (A) 0.6 k/uL (0-1.0); Monocytes % (A) 6 %; Neutrophils # (A) 4.4 k/uL (1.3-7.7); Neutrophils % (A) 48 %; Platelet Count 267 k/uL (150-450); RBC 4.57 m/uL (3.80-5.40); RDW 14.1 % (11.5-15.5); WBC 9.1 k/uL (3.8-10.6)
[2019-03-30 08:30] LABS: Partial Thromboplastin Time 82.8 sec (22.0-30.0); Prothrombin Time 10.4 sec (9.0-12.0)
[2019-03-30] MEDS: MONTELUKAST 5 MG CHEWABLE PO SCH (08:42)
[2019-03-30] MEDS ORDERED: PANTOPRAZOLE 40 MG/10 ML VIAL IV SCH (09:00)
[2019-03-30] MEDS ORDERED: TOPIRAMATE 25 MG TAB PO SCH (09:00)
[2019-03-30] MEDS: MUPIROCIN 2% OINT 22 GM TUBE TOPICAL SCH ×2 (09:46→16:15)
[2019-03-30] MEDS: MOTEGRITY PO SCH (09:46)
[2019-03-30] MEDS: AMOXIC-POT CLAV 200-28.5MG/5ML 100 ML BOTTLE PO SCH ×3 (09:46→22:27)
[2019-03-30] MEDS: ONDANSETRON 4 MG/2 ML VIAL IVP PRN ×2 (09:53→17:47)
[2019-03-30] MEDS: HEPARIN SOD,PORK IN 0.45% NACL 25,000 UNIT in 0.45% NACL 1 250ML.BAG IV SCH (11:57)
--- NOTE | 2019-03-30 15:32 | P.CONS ---
History of Present Illness - Reason for Consult Consult date: 03/30/19 RUE DVT, on lovenox Requesting physician: Neri Chapin - Chief Complaint abd pain - History of Present Illness Mrs. Johansen is known to Dr. Chung and he has seen her in the past for chronic iron deficiency anemia attributed to gastric bypass, pt also has history of gastroparesis, pancreatitis, SMA syndrome, gastric simulator placed and removed, and recurrent PEG insertion infections. She was initially seen at [facility] for DVT/PE May 2017, secondary to PICC line placement, where upper extremity DVT developed, followed by PE. She was given 3 months of anticoagulation with Xarelto. Hypercoagulable state was supposed to be done in outpatientsetting. She was on Eliquis when she last saw Dr. Chung in 2017. She is on lifelong anticoagulation due to recurrent clots, she has multiple medical conditions that place her at high risk for clots. She most recently is on 1.5mg/kg SQ daily. She is admitted for abd pain, nausea and vomiting, secondary to her chronic he alth conditions. She feels better since admit, no fever, abd discomfort is stable, she is supposed to be seen in the near future at [facility]. Review of Systems 14 point ROS is negative except as stated in HPI Past Medical History Past Medical History: Deep Vein Thrombosis (DVT), GERD/Reflux, Pulmonary Embolus (PE), Thyroid Disorder Additional Past Medical History / Comment(s): Idiopathic gastroparesis, takes little in orally-has J tube for feedings,R pulmonary embolism -2017, pancreatitis, hypothyroid, chronic anemia, sinus problems, migraine, dvt 2-2018. 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 J tube replaced Past Anesthesia/Blood Transfusion Reactions: No Reported Reaction Past Psychological History: Depression Additional Psychological History / Comment(s): . Smoking Status: Never smoker Past Alcohol Use History: Rare Additional Past Alcohol Use History / Comment(s): PT DENIES SMOKING OR ANY ILLEGAL DRUG USE, HAS AN OCC DRINK. Past Drug Use History: None Reported - Past Family History Father Family Medical History: Hypertension Additional Family Medical History / Comment(s): . Mother Family Medical History: No Reported History Additional Family Medical History / Comment(s): . Medications and Allergies Home Medications Medication Instructions Recorded Confirmed Type Lansoprazole [Prevacid] 30 mg PO BID 02/02/18 03/29/19 History Montelukast Chew [Singulair] 10 mg PO DAILY 02/02/18 03/29/19 History Topiramate [Trokendi Xr] 50 mg PO HS 07/18/18 03/29/19 History Scopolamine 1.5MG/72Hr Patch 1 patch TRANSDERM Q72H #10 patch 07/31/18 03/29/19 Rx [TransDerm Scop] Thyroid,Pork [[place] Thyroid] 60 mg PO Q48H 10/06/18 03/29/19 History Thyroid,Pork [[place] Thyroid] 90 mg PO Q48H 10/06/18 03/29/19 History Mupirocin Calcium [Bactroban 2% 1 applic TOPICAL TID 7 Days gm 10/19/18 03/29/19 Rx Cream] SUMAtriptan SUCCINATE [Imitrex] 100 mg PO DAILY PRN 10/19/18 03/29/19 History Prucalopride Succinate [Motegrity] 2 mg PO DAILY 01/14/19 03/29/19 History Amoxic-Pot Clav 250-62.5MG/5Ml 10 ml PO TID 03/29/19 03/29/19 History [Augmentin 250-62.5 mg/5 ml Susp.] HYDROmorphone [Dilaudid] 4 mg PO Q8H PRN 03/29/19 03/29/19 History Ondansetron HCl [Zofran] 8 mg PO Q8H PRN 03/29/19 03/29/19 History Enoxaparin [Lovenox] 80 mg SQ Q12H #60 syringe 03/30/19 Rx Allergies Allergy/AdvReac Type Severity Reaction Status Date / Time metoclopramide [From Reglan] AdvReac Mild jittery Verified 03/29/19 16:12 prochlorperazine AdvReac Mild JITTERY Verified 03/29/19 16:12 [From Compazine] Physical Exam Vitals: Vital Signs Temp Pulse Pulse Resp BP BP Pulse Ox 03/30/19 07:00 98.2 F 81 17 106/68 99 03/30/19 02:15 98.2 F 83 18 106/68 98 03/29/19 20:25 98.4 F 77 18 115/81 99 03/29/19 18:33 98.9 F 16 124/81 97 03/29/19 18:00 98.1 F 84 17 124/76 99 Intake and Output 03/29/19 03/30/19 03/30/19 22:59 06:59 14:59 Intake Total 101.265 120.773 Balance 101.265 120.773 Intake: Intake, IV Titration 101.265 120.773 Amount Heparin Sod,Pork in 0.45% 101.265 120.773 NaCl 25,000 unit In 0.45 % NaCl 1 250ml.bag @ 18 UNITS/KG/HR 13.472 mls/hr IV .[id number] [facility] Rx#: [id number] Other: Voiding Method Toilet # Voids 1 Weight 74.843 kg - Constitutional General appearance: average body habitus, cooperative, no acute distress - EENT Eyes: anicteric sclerae, EOMI ENT: hearing grossly normal - Neck Neck: normal ROM - Respiratory Respiratory: bilateral: CTA - Cardiovascular Rhythm: regular Heart sounds: normal: S1, S2 Abnormal Heart Sounds: no systolic murmur, no diastolic murmur, no rub, no S3 Gallop, no S4 Gallop, no click, no other leg Peripheral Edema: bilateral: None - Gastrointestinal General gastrointestinal: no absent bowel sounds, no decreased bowel sounds, distended, no hepatomegaly, no hyperactive bowel sounds, normal bowel sounds, no organomegaly, no rigid, no scaphoid, soft, no splenomegaly, tenderness, no umbilical hernia, no ventral hernia - Integumentary Integumentary: normal - Neurologic Neurologic: CNII-XII intact - Musculoskeletal Musculoskeletal: strength equal bilaterally - Psychiatric Psychiatric: A&O x's 3, appropriate affect, intact judgment & insight Results CBC & Chem 7: 03/30/19 07:33 03/29/19 15:49 Labs: Abnormal Lab Results - Last 24 Hours (Table) 03/29/19 03/29/19 03/30/19 Range/Units 15:49 23:56 07:33 APTT 90.1 H 82.8 H (22.0-30.0) sec Chloride 110 H (98-107) mmol/L Carbon Dioxide 20 L (22-30) mmol/L CT scan - abdomen: report reviewed CT scan - chest: report reviewed CT scan - pelvis: report reviewed Venous US: report reviewed Assessment and Plan (1) DVT (deep venous thrombosis) Narrative/Plan: New RUE DVT, most likely r/t PICC line Current Visit: Yes Status: Acute Priority: High Code(s): I82.409 - ACUTE EMBOLISM AND THOMBOS UNSP DEEP VN UNSP LOWER EXTREMITY SNOMED Code(s): 924386516 (2) Pulmonary embolism Current Visit: No Status: Chronic Code(s): I26.99 - OTHER PULMONARY EMBOLISM WITHOUT ACUTE COR PULMONALE SNOMED Code(s): 19967833 Plan: Pt chronic medical conditions (gastroparesis, SMA syndrome, chronic invasive lines, recurrent abd infections, Hx of recurrent clot) that place her at higher risk for clots. I am trying to find her hypercoag work up results so it can be documented. Pt and state that she has clotted at previous invasive line sites while on anticoagulation (oral) and that she was placed on lovenox. Case discussed with Dr. Chung Increase lovenox to 1mg/kg BID-pt and verbalized understanding Remove PICC line. Recommended not to place a new line immediately, recommend placement next week. Also, had asked about a port, Dr. Chung did not recommend one at this time.
[2019-03-30] MEDS ORDERED: HYDROPHILIC CREAM 180 GM TUBE TOPICAL SCH (17:00)
--- NOTE | 2019-03-30 17:50 | HP ---
HISTORY AND PHYSICAL CHIEF COMPLAINT: Pain and swelling of the right arm. HISTORY OF PRESENT ILLNESS: This is another admission for this 39-year-old white female with gastroparesis. She has a PICC line in the right arm and started to notice pain, swelling and a bluish tint to the right arm and came to the emergency room, where she was found to have thrombosis. She has had no fever, chills, etc. Review of systems is otherwise unremarkable. She has had no headaches, chest pain, shortness of breath, abdominal pain, recent episodes of vomiting, diarrhea, melena, etc. Past medical history, family history, and personal and social histories can all be found in her previous admitting and discharge summaries. She was at [facility] last week, and they are getting ready to start her on some new experimental drug for her gastroparesis. PHYSICAL EXAMINATION: Blood pressure is 136/78 with a pulse of 70, respiration of 22, and she is afebrile. In general she appeared to be well developed, well nourished, in no acute distress. Skin color was normal. Skin was warm and dry. Lymph nodes were not enlarged. Head, ears, eyes, nose, mouth and throat were normal. Neck veins were not distended. Thyroid was not enlarged. Chest was clear. The abdomen was soft and nontender. There was a jejunostomy tube in place. Bowel sounds were present. Extremities were normal except for the right arm where she had a PICC line and had edema and some venous congestion. Pulses were good. Neurologically she was intact. IMPRESSION: 1. Phlebothrombosis of vein in the right arm where PICC line has been placed. 2. Gastroparesis. PLAN: 1. Bed rest. 2. Refer to Oncology and Infectious Disease. She will probably have to have the PICC line removed and replaced. MMODL / IJN: [id number] /
[2019-03-30] MEDS: SODIUM CHLORIDE 0.9% 1,000 ML IV SCH (17:54)
--- NOTE | 2019-03-30 18:41 | PN ---
PROGRESS NOTE CHIEF COMPLAINT: DVT in right upper extremity. HISTORY OF PRESENT ILLNESS: This lady is doing well. She is comfortable. She has had no significant pain. She has had no nausea or vomiting. PHYSICAL EXAMINATION: Chest is clear. Cardiac exam is normal. Abdomen is soft, nontender. Right arm is somewhat edematous and dusky in appearance with PICC line present. IMPRESSION: Deep venous thrombosis of the right arm in the cephalic vein. PLAN: Await removal of the PICC line and also attention to the jejunostomy tube, which looks slightly infected. MMODL / IJN: [id number] /
[2019-03-30] MEDS: TROKENDI 50 MG PO SCH (21:30)
[2019-03-30] MEDS: THYROID, PORK 30 MG TAB PO SCH (21:31)
[2019-03-30] MEDS: HYDROPHILIC CREAM 180 GM TUBE TOPICAL SCH (22:04)
[2019-03-31] MEDS: HYDROmorphone 1 MG/ML 1 ML SYRINGE IVP PRN ×7 (02:44→23:28)
[2019-03-31 07:30] LABS: Basophils % (A) 0 %; Eosinophils # (A) 0.3 k/uL (0-0.7); Eosinophils % (A) 4 %; HCT 40.1 % (34.0-46.0); HGB 12.8 gm/dL (11.4-16.0); Lymphocytes # (A) 3.1 k/uL (1.0-4.8); Lymphocytes % (A) 44 %; MCH 27.9 pg (25.0-35.0); MCHC 31.8 g/dL (31.0-37.0); MCV 87.7 fL (80.0-100.0); Mean Platelet Volume 6.7; Monocytes # (A) 0.5 k/uL (0-1.0); Monocytes % (A) 7 %; Neutrophils # (A) 3.1 k/uL (1.3-7.7); Neutrophils % (A) 43 %; Platelet Count 245 k/uL (150-450); RBC 4.58 m/uL (3.80-5.40); RDW 13.9 % (11.5-15.5); WBC 7.2 k/uL (3.8-10.6)
[2019-03-31 07:54] LABS: Prothrombin Time 10.5 sec (9.0-12.0)
[2019-03-31] MEDS: MONTELUKAST 5 MG CHEWABLE PO SCH (08:08)
[2019-03-31] MEDS: MOTEGRITY PO SCH (08:09)
[2019-03-31] MEDS: ONDANSETRON 4 MG/2 ML VIAL IVP PRN ×3 (09:25→23:34)
--- NOTE | 2019-03-31 11:00 | CONS ---
CONSULTATION DATE OF SERVICE: 03/30/2019. REASON FOR CONSULTATION: Jejunostomy site cellulitis. HISTORY OF PRESENT ILLNESS: The patient is a 39-year-old female with a past medical history significant for gastroparesis, pancreatitis, SMA and the patient did have previous history of gastric bypass and did have a jejunostomy tube. The patient did have a PICC line for TPN presenting to the ER at [facility] yesterday with chief complaints of pain and discomfort at the right arm. The pain started the day she presented to hospital with some more swelling that was noticed, but no redness. The patient did have a CT angiogram that was negative for PE. However, venous Doppler study was performed on the right, however, showed acute deep venous thrombosis along with of the brachial vein. The patient also noticed to have irritation or redness around her jejunostomy tube site with concern for possible cellulitis. The patient has been treated with cream. Infectious disease was consulted for further recommendations regarding jejunostomy tube site cellulitis and antibiotic recommendation. The patient has been complaining of some irritation mostly of a burning pain at the jejunostomy tube site with some associated erythema. Minimal drainage from her leakage of the tube. Apparently the patient did have a small fistula at one of the sites. The patient has been afebrile and her white count has been normal. I was asked to see the patient regarding further local wound care and need for systemic antibiotic therapy. REVIEW OF SYSTEMS: Positive points have been mentioned in HPI. Rest of the systems are negative. PAST MEDICAL HISTORY: DVT, gastroesophageal reflux disease, pulmonary embolism, hypothyroidism, gastroparesis. PAST SURGICAL HISTORY: , cholecystectomy, hernia repair, tonsillectomy and jejunostomy tube placement. SOCIAL HISTORY: No history of smoking. Rarely drinks. No drug use. FAMILY HISTORY: Father with history of hypertension. ALLERGIES: TO METOCLOPRAMIDE AND PROCHLORPERAZINE. MEDICATIONS: Include the patient is currently on Augmentin, heparin, Dilaudid, Singulair, Norcaine, cream, scopolamine patch, Imitrex, [place] Thyroid. PHYSICAL EXAMINATION: Blood pressure 107/64 with a pulse of 77. Temperature 98.6. She is 99% on room air. General description is a middle-aged female lying in bed in no distress. No tachypnea or accessory muscles of respiration use. HEENT: Shows slight pallor. No scleral icterus. Oral mucosal membranes dry. No pharyngeal erythema or thrush. NECK: Trachea central. No thyromegaly. LUNGS: Unlabored breathing. Decreased breath sounds at the bases. No wheezes or crackles. Heart S1, S2. Regular rate and rhythm. ABDOMEN: Soft. Jejunostomy tube site did have some irritation more likely a component with no evidence of any purulence or foul smelling. Extremities: No edema of the feet. Skin examination: No rash or mass palpable. NEUROLOGICAL: Patient is awake, alert, oriented x3. Mood and affect normal. LABS: Hemoglobin of 12.8, white count 9.1. BUN of 16, creatinine 0.89. DIAGNOSTIC IMPRESSION AND PLAN: Patient with jejunostomy tube site right irritation and erythema, more likely chemical irritation. Clinically doubt dealing with subcutaneous bacterial cellulitis. Hence we will hold on any systemic antibiotic therapy at this point. PLAN: 1. Discontinue the Augmentin and Piperacillin cream. 2. We will apply cream to the area to protect the underlying skin from continuous irritation from the leakage from the tube. 3. We will follow up on clinical condition and further adjust medication if needed. Thank you for this consultation. We will follow this patient along with you. MMODL / IJN: [id number] /
[2019-03-31] MEDS: HEPARIN SOD,PORK IN 0.45% NACL 25,000 UNIT in 0.45% NACL 1 250ML.BAG IV SCH (12:35)
--- NOTE | 2019-03-31 13:45 | PN ---
PROGRESS NOTE DATE OF SERVICE: March 31, 2019 CHIEF COMPLAINT: DVT, right arm. HISTORY OF PRESENT ILLNESS: This lady's right arm is doing much better. PICC line has been removed. She will now need to have port placed for TPN and other treatment at home. REVIEW OF SYSTEMS: She is feeling fine. The arm is less swollen. She has had no fever or chills. PHYSICAL EXAM: Head ears, eyes, nose, mouth, and throat are normal. Chest is clear. Cardiac exam is normal. Abdomen is soft. The area around the jejunostomy tube looks much better. Right arm is less cyanotic and swollen. IMPRESSION: 1. Deep vein thrombosis of the right arm. 2. Gastroparesis. PLAN: 1. Consult for placement of port. 2. Continue heparin until that procedure is aborted and then she can be taken off anticoagulants. COLTEN / FLAKON: [id number] /
[2019-03-31] MEDS: SODIUM CHLORIDE 0.9% 1,000 ML IV SCH (17:16)
--- NOTE | 2019-03-31 17:47 | PN ---
PROGRESS NOTE DATE OF SERVICE: 03/31/2019. REASON FOR FOLLOWUP: Jejunostomy tube site infection. INTERVAL HISTORY: The patient is currently afebrile. Patient has been breathing comfortably. Denies having any chest pain or any cough. The jejunostomy tube site pain and discomfort slightly decreased. No nausea. No vomiting. No diarrhea. PHYSICAL EXAMINATION: Blood pressure is 106/67 with a pulse of 73, temperature 98.4. She is 98% on room air. General description is a middle-aged female lying in bed in no distress. Respiratory system: Unlabored breathing, clear to auscultation anteriorly. Heart S1, S2. Regular rate and rhythm. Abdomen soft. No tenderness. LABS: Hemoglobin 12.2, white count 7.2. DIAGNOSTIC IMPRESSION AND PLAN: Patient with jejunostomy site swelling and erythema more likely chemical irritation from her tube feeds with less likely cellulitis. The patient, at this time, continue local care with triad cream. No need for any systemic antibiotic therapy. Continue supportive care. MMODL / IJN: [id number] /
[2019-03-31] MEDS: TROKENDI 50 MG PO SCH (20:19)
[2019-03-31] MEDS: HYDROPHILIC CREAM 180 GM TUBE TOPICAL SCH (20:19)
[2019-03-31] MEDS: THYROID, PORK 30 MG TAB PO SCH (20:20)
[2019-04-01] MEDS: HYDROmorphone 1 MG/ML 1 ML SYRINGE IVP PRN ×6 (03:02→20:50)
[2019-04-01] MEDS: HEPARIN SOD,PORK IN 0.45% NACL 25,000 UNIT in 0.45% NACL 1 250ML.BAG IV SCH ×2 (03:03→10:59)
[2019-04-01] MEDS: ONDANSETRON 4 MG/2 ML VIAL IVP PRN ×3 (06:53→20:50)
[2019-04-01] MEDS: MOTEGRITY PO SCH (06:53)
[2019-04-01] MEDS: MONTELUKAST 5 MG CHEWABLE PO SCH (06:54)
[2019-04-01 08:09] LABS: Basophils % (A) 1 %; Eosinophils # (A) 0.3 k/uL (0-0.7); Eosinophils % (A) 3 %; HCT 38.5 % (34.0-46.0); HGB 12.9 gm/dL (11.4-16.0); Lymphocytes # (A) 2.9 k/uL (1.0-4.8); Lymphocytes % (A) 36 %; MCH 29.1 pg (25.0-35.0); MCHC 33.6 g/dL (31.0-37.0); MCV 86.6 fL (80.0-100.0); Monocytes # (A) 0.6 k/uL (0-1.0); Monocytes % (A) 7 %; Neutrophils # (A) 4.2 k/uL (1.3-7.7); Neutrophils % (A) 51 %; Platelet Count 253 k/uL (150-450); RBC 4.44 m/uL (3.80-5.40); RDW 13.6 % (11.5-15.5); WBC 8.1 k/uL (3.8-10.6)
[2019-04-01 08:14] LABS: Partial Thromboplastin Time 58.1 sec (22.0-30.0); Prothrombin Time 10.5 sec (9.0-12.0)
--- NOTE | 2019-04-01 15:04 | P.GSCN ---
History of Present Illness Consult date: 04/01/19 History of present illness: CHIEF COMPLAINT: Right-sided PICC DVT HISTORY OF PRESENT ILLNESS: The patient is a 39 year old female multiple medical problems and multiple hospitalizations with history of gastroparesis including gastric bypass managed between [facility] and [facility] [place]. She reports on [place]an, 5 days ago developed an acute onset right arm pain as she receives TPN via her PICC line. She has prior history of multiple pulmonary embolisms including DVTs in the contralateral arm. For the last 5 years she has had multiple surgical medical management for her gastroparesis. She presents now with recently diagnosed with PICC associated DVT of the right subclavian including right axillary vein. General surgery is consulted for placement of a Port-A-Cath. PAST MEDICAL HISTORY: See list. PAST SURGICAL HISTORY: See list. MEDICATIONS: See list. ALLERGIES: See list. SOCIAL HISTORY: See list. FAMILY HISTORY: See list. REVIEW OF ORGAN SYSTEMS: CONSTITUTIONAL: No fevers or chills. EYES: Denies any trouble with vision. No glasses. HEENT: No difficulties with hearing. No nosebleeds. No difficulty swallowing. RESPIRATORY: Denies pneumonia. Has asthma CARDIOVASCULAR: Denies any chest pain, palpitations, or recent heart attacks. GASTROINTESTINAL: Denies fatty food intolerance. Has gastroesophageal reflux disease. History of gastroparesis status post gastric bypass. Nutrition via jejunostomy tube. Has change in bowel habits. History of SMA syndrome GENITOURINARY: Denies any blood in urine or increased urinary frequency. NEUROLOGICAL: Has numbness or tingling along the distal extremities. History of headaches and seizure disorder. His chronic pain disorder MUSCULOSKELETAL: Has back pain, stiffness or joint arthritis. SKIN: No current skin cancer. No rash. PSYCHIATRIC: Denies current depression or suicidal thoughts. ENDOCRINE: Has thyroid disorders. Denies any blood sugar glucose intolerance. HEME/LYMPHATIC: Denies any lumps and bumps around the neck. New deep venous thrombosis secondary to PICC line. Prior history of multiple PEs and DVTs including of contralateral arm ALLERGY/IMMUNOLOGY: No immunoglobulin therapy. No immune deficiencies. BREAST: Denies current breast lumps, pain or nipple discharge. PHYSICAL EXAM: VITALS: Reviewed CONSTITUTIONAL: Well developed and in no acute distress. EYES: Conjuctivae without sclera icterus. Pupils are equally round and reactive to light. Extraocular movements grossly intact. HEAD, EARS, NOSE, THROAT: Moist buccal mucosa. Head is atraumatic, normocephalic. Hears conversational speech. No nasal drainage. NECK: Supple. No JV distention. No thyroidomegaly. RESPIRATORY: Non-labored respirations and equal bilateral excursions. No gross wheezes. CARDIOVASCULAR: Regular rate and rhythm. Extremities without moderate edema. Palpable 2+ radial pulses. ABDOMEN: Soft. No peritonitis. MUSCULOSKELETAL: Nail and fingers with good capillary refill. SKIN: Warm and well perfused with good skin turgor. NEUROLOGIC: Cranial nerves I through XII grossly intact. Sensation upper and extremities intact. No focal or lateralizing signs. PSYCH: Appropriate affect. Alert and oriented to person, place and time. Displays appropriate insight. CLINCAL LABS: Reviewed. WBC normal RADIOLOGY: Report reviewed ultrasound of the right arm with brachial vein and axillary vein acute thrombosis. RECORDS: previous old records reviewed with multiple hospitalizations for gastroparesis ASSESSMENT: 1. Acute PICC line associated DVT, right arm 2. Prior history of multiple PEs and DVTs contralateral arm 3. History of SMA syndrome 4. History of gastroparesis 5. History of gastrojejunostomy for SMA syndrome PLAN: 1. She has a complicated vascular history including multiple PEs and DVTs of the bilateral upper arm where patency is compromised for placement of Port-A-Cath. 2. Recommend consultation to vascular surgery of complicated venous thrombosis history 3. Additionally, patient reports multiple workups including placement of PICC line and TPN including management of gastroparesis via [facility] and may benefit from transfer to tertiary care center Thank you for this kind consultation. Past Medical History Past Medical History: Deep Vein Thrombosis (DVT), GERD/Reflux, Pulmonary Embolus (PE), Thyroid Disorder Additional Past Medical History / Comment(s): Idiopathic gastroparesis, takes little in orally-has J tube for feedings,R pulmonary embolism -2017, pancreatitis, hypothyroid, chronic anemia, sinus problems, migraine, dvt -2018. 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 J tube replaced Past Anesthesia/Blood Transfusion Reactions: No Reported Reaction Past Psychological History: Depression Additional Psychological History / Comment(s): . Smoking Status: Never smoker Past Alcohol Use History: Rare Additional Past Alcohol Use History / Comment(s): PT DENIES SMOKING OR ANY ILLEGAL DRUG USE, HAS AN OCC DRINK. Past Drug Use History: None Reported - Past Family History Father Family Medical History: Hypertension Additional Family Medical History / Comment(s): . Mother Family Medical History: No Reported History Additional Family Medical History / Comment(s): . Medications and Allergies Home Medications Medication Instructions Recorded Confirmed Type Lansoprazole [Prevacid] 30 mg PO BID 02/02/18 03/29/19 History Montelukast Chew [Singulair] 10 mg PO DAILY 02/02/18 03/29/19 History Topiramate [Trokendi Xr] 50 mg PO HS 07/18/18 03/29/19 History Scopolamine 1.5MG/72Hr Patch 1 patch TRANSDERM Q72H #10 patch 07/31/18 03/29/19 Rx [TransDerm Scop] Thyroid,Pork [Glen Thyroid] 60 mg PO Q48H 10/06/18 03/29/19 History Thyroid,Pork [Glen Thyroid] 90 mg PO Q48H 10/06/18 03/29/19 History Mupirocin Calcium [Bactroban 2% 1 applic TOPICAL TID 7 Days gm 10/19/18 03/29/19 Rx Cream] SUMAtriptan SUCCINATE [Imitrex] 100 mg PO DAILY PRN 10/19/18 03/29/19 History Prucalopride Succinate [Motegrity] 2 mg PO DAILY 01/14/19 03/29/19 History Amoxic-Pot Clav 250-62.5MG/5Ml 10 ml PO TID 03/29/19 03/29/19 History [Augmentin 250-62.5 mg/5 ml Susp.] HYDROmorphone [Dilaudid] 4 mg PO Q8H PRN 03/29/19 03/29/19 History Ondansetron HCl [Zofran] 8 mg PO Q8H PRN 03/29/19 03/29/19 History Enoxaparin [Lovenox] 80 mg SQ Q12H #60 syringe 03/30/19 Rx Allergies Allergy/AdvReac Type Severity Reaction Status Date / Time metoclopramide [From Reglan] AdvReac Mild jittery Verified 03/29/19 16:12 prochlorperazine AdvReac Mild JITTERY Verified 03/29/19 16:12 [From Compazine] Surgical - Exam Vital Signs Temp Pulse Resp BP Pulse Ox 99.5 F 79 22 118/72 94 L 03/29/19 13:51 03/29/19 13:51 03/29/19 13:51 03/29/19 13:51 03/29/19 13:51 Results - Labs 04/01/19 07:29 03/29/19 15:49 Abnormal Lab Results - Last 24 Hours (Table) 04/01/19 Range/Units 07:29 APTT 58.1 H (22.0-30.0) sec Assessment and Plan (1) DVT of right axillary vein, acute Current Visit: Yes Status: Acute Code(s): I82.A11 - ACUTE EMBOLISM AND THROMBOSIS OF RIGHT AXILLARY VEIN SNOMED Code(s): 561683130795526 (2) History of pulmonary embolus (PE) Current Visit: Yes Status: Acute Code(s): Z86.711 - PERSONAL HISTORY OF PULMONARY EMBOLISM SNOMED Code(s): 151588594 (3) Deep vein thrombosis (DVT) of left upper extremity Current Visit: Yes Status: Acute Code(s): I82.622 - ACUTE EMBOLISM AND THROMBOSIS OF DEEP VEINS OF L UP EXTREM SNOMED Code(s): 504649419 (4) Intractable nausea and vomiting Current Visit: No Status: Acute Code(s): R11.2 - NAUSEA WITH VOMITING, UNSPECIFIED SNOMED Code(s): 848391205 (5) PICC (peripherally inserted central catheter) in place Current Visit: No Status: Acute Code(s): Z45.2 - ENCOUNTER FOR ADJUSTMENT AND MANAGEMENT OF VAD SNOMED Code(s): 9666186752080 (6) Gastroparesis Current Visit: No Status: Chronic Code(s): K31.84 - GASTROPARESIS SNOMED Code(s): 203581451 (7) History of Edna-en-Y gastric bypass Current Visit: No Status: Chronic Code(s): Z98.84 - BARIATRIC SURGERY STATUS SNOMED Code(s): 450748189 (8) Jejunostomy tube present Current Visit: No Status: Chronic Code(s): Z93.4 - OTHER ARTIFICIAL OPENINGS OF GASTROINTESTINAL TRACT STATUS SNOMED Code(s): 118898478
--- NOTE | 2019-04-01 16:44 | US ---
EXAMINATION TYPE: US venous doppler duplex UE LT DATE OF EXAM: 04/01/2019 COMPARISON: US 2019 CLINICAL HISTORY: History DVT left arm. Recent right arm DVT, history of left arm SVT, exam done port able. SIDE PERFORMED: Left Left Arm: Appears negative for DVT, limited visualization of cephalic vein at IV site with minimal co ej flow seen and vein appears to compress around IV IMPRESSION: No evidence of deep vein thrombosis in the left arm. Cephalic vein appears patent.
--- NOTE | 2019-04-01 19:53 | PN ---
PROGRESS NOTE CHIEF COMPLAINT: Deep venous thrombosis of the right arm. HISTORY OF PRESENT ILLNESS: This lady is doing fairly well, but she is having quite a bit of discomfort and she is having a little bit more trouble with nausea. She would like to have Phenergan for nausea added to her program which usually helps. She also would like to take less IV Dilaudid and resume her usual dose of Percocet at home which is 10 mg. PHYSICAL EXAMINATION: Color is good. Vital signs are normal. Chest is clear. Cardiac exam is normal. Abdomen is soft, nontender. IMPRESSION: 1. Deep venous thrombosis in the right arm secondary to PICC line. 2. Nausea. 3. Intractable pain. 4. Gastroparesis. PLAN: 1. Add Oxycodone and Phenergan to her program. 2. General Surgery does not want to put in a port and they are recommending a consult with vascular surgery. If this cannot be done here, she will have to have a done at a tertiary hospital. MMODL / IJN: [id number] /
[2019-04-01] MEDS: TROKENDI 50 MG PO SCH (20:50)
[2019-04-01] MEDS: HYDROPHILIC CREAM 180 GM TUBE TOPICAL SCH (20:52)
[2019-04-01] MEDS: THYROID, PORK 30 MG TAB PO SCH (20:52)
[2019-04-01] MEDS: SODIUM CHLORIDE 0.9% 1,000 ML IV SCH (20:53)
[2019-04-01] MEDS: SCOPOLAMINE 1.5MG/72HR PATCH TRANSDERM SCH (20:53)
--- NOTE | 2019-04-01 23:41 | PN ---
PROGRESS NOTE DATE OF SERVICE: 04/01/2019. REASON FOR FOLLOW UP: Jejunostomy site cellulitis. INTERVAL HISTORY: The patient is currently afebrile. She has been breathing comfortably. The pain and discomfort at the jejunostomy site has slightly decreased. Denies having any nausea, vomiting, or any diarrhea. PHYSICAL EXAMINATION: Blood pressure 104/56, pulse of 63. Temperature 97.8. She is 98% on room air. General description is a middle-aged female lying in bed in no distress. The abdominal examination jejunostomy tube site oral erythema has decreased with minimal drainage was noticed. No foul smelling. LABS: Hemoglobin is 12.9 with white count 8.1. DIAGNOSTIC IMPRESSION AND PLAN: Patient with jejunostomy tube site erythema more likely chemical irritation from the gastrointestinal secretions. Clinical suspicion low for secondary cellulitis. Apply Triad cream thickly to prevent further chemical irritation. No need for systemic antibiotic therapy. MMODL / IJN: [id number] /
[2019-04-01] MEDS ORDERED: PROMETHAZINE INJ 25 MG/ML 1 ML VIAL IM PRN (23:59)
[2019-04-02] MEDS: PROMETHAZINE INJ 25 MG in SODIUM CHLORIDE 0.9% 50 ML IVPB PRN ×4 (00:18→18:17)
[2019-04-02] MEDS: HYDROmorphone 1 MG/ML 1 ML SYRINGE IVP PRN ×7 (00:43→21:32)
[2019-04-02] MEDS: oxyCODONE-APAP 10-325MG 1 EACH TAB PO PRN ×2 (01:57→13:55)
[2019-04-02] MEDS: ONDANSETRON 4 MG/2 ML VIAL IVP PRN ×3 (05:15→21:43)
[2019-04-02] MEDS: HEPARIN SODIUM,PORCINE 5,000 UNIT/ML 1 ML VIAL IV PRN (08:27)
[2019-04-02] MEDS: MOTEGRITY PO SCH (08:35)
[2019-04-02] MEDS: MONTELUKAST 5 MG CHEWABLE PO SCH (08:36)
--- NOTE | 2019-04-02 10:25 | P.PN ---
<Janelle López Wilner - Last Filed: 04/02/19 10:19> Subjective Progress Note Date: 04/02/19 CHIEF COMPLAINT: Right-sided PICC/DVT HISTORY OF PRESENT ILLNESS: Patient examined at the bedside. Spouse present. Patient receives TPN via PICC line secondary to history of gastroparesis. She now has a DVT in her right arm. She follows at [facility] and also [facility]. Vital signs are stable this morning. She is afebrile. PHYSICAL EXAM: VITAL SIGNS: Currently stable. GENERAL: Well-developed in no acute distress. HEENT: No sclera icterus. Extraocular movements grossly intact. Moist buccal mucosa. Head is atraumatic, normocephalic. Hears conversational speech. No nasal drainage. NECK: Supple without lymphadenopathy. CHEST: Non-labored respirations and equal bilateral excursions. CARDIOVASCULAR: Regular rate with regular rhythm. Palpable 2+ radial pulses. ABDOMEN: Soft. Nondistended. Nontender. MUSCULOSKELETAL: No clubbing, cyanosis or edema. NEUROLOGIC: No focal or lateralizing signs. Cranial nerves II through XII grossly intact. PSYCH: Appropriate affect. Alert and oriented to person, place and time. SKIN: Well perfused. Good skin turgor. ASSESSMENT: 1. Acute PICC line associated DVT, right arm 2. Prior history of multiple PEs and DVTs contralateral arm 3. History of SMA syndrome 4. History of gastroparesis 5. History of gastrojejunostomy for SMA syndrome PLAN: Dr. Marie recommends vascular consult for port-a-cath placement due to complicated venous thrombosis history. Otherwise, she may benefit from [facility] where she follows with a physician there for her gastroparesis We will sign off. Please reconsult if needed Nurse practitioner note has been reviewed by physician. Signing provider agrees with the documented findings, assessment, and plan of care. Objective - Vital Signs Vital signs: Vital Signs Temp 98.4 F 04/02/19 07:00 Pulse 66 04/02/19 07:00 Resp 16 04/02/19 07:00 BP 105/65 04/02/19 07:00 Pulse Ox 99 04/02/19 07:00 Intake & Output 04/01/19 04/02/19 04/02/19 18:59 06:59 18:59 Intake Total 971.602 1727 224.928 Balance 470.106 5410 224.928 Intake: Intake, IV Titration 234.708 224.928 Amount Heparin Sod,Pork in 0.45% 234.708 224.928 NaCl 25,000 unit In 0.45 % NaCl 1 250ml.bag @ 18 UNITS/KG/HR 13.472 mls/hr IV .[id number] MILAN Rx#: [id number] Oral 1180 Other: Voiding Method Toilet # Voids 1 3 - Labs CBC & Chem 7: 04/01/19 07:29 03/29/19 15:49 Labs: Abnormal Lab Results - Last 24 Hours (Table) 04/02/19 Range/Units 06:54 APTT 45.4 H (22.0-30.0) sec <Rosemarie Marie - Last Filed: 04/02/19 17:52> Subjective Notified by nursing that PICC line along the left arm also unsuccessful. Per radiology report, occlusion of the left arm vein also expected. I personally notified vascular ALCOHOL RUBBER for venogram as no current access found. Case deferred to vascular for further evaluation. Options and plan also discussed with her . Alternatively, transfer back to [place] advised for complicated surgical care where her surgeon is available. Objective - Vital Signs Vital signs: Vital Signs Temp 98.6 F 04/02/19 15:00 Pulse 76 04/02/19 15:00 Resp 16 04/02/19 15:00 BP 102/67 04/02/19 15:00 Pulse Ox 100 04/02/19 15:00 Intake & Output 04/01/19 04/02/19 04/02/19 18:59 06:59 18:59 Intake Total 193.565 9159 317.754 Balance 795.082 7255 317.754 Intake: Intake, IV Titration 234.708 317.754 Amount Heparin Sod,Pork in 0.45% 234.708 317.754 NaCl 25,000 unit In 0.45 % NaCl 1 250ml.bag @ 18 UNITS/KG/HR 13.472 mls/hr IV .[id number] MILAN Rx#: [id number] Oral 1180 Other: Voiding Method Toilet # Voids 1 3 3 - Labs CBC & Chem 7: 04/01/19 07:29 03/29/19 15:49 Labs: Abnormal Lab Results - Last 24 Hours (Table) 04/02/19 04/02/19 Range/Units 06:54 16:03 APTT 45.4 H 61.0 H (22.0-30.0) sec Assessment and Plan (1) DVT of right axillary vein, acute Current Visit: Yes Status: Acute Code(s): I82.A11 - ACUTE EMBOLISM AND THROMBOSIS OF RIGHT AXILLARY VEIN SNOMED Code(s): 437148014828543 (2) History of pulmonary embolus (PE) Current Visit: Yes Status: Acute Code(s): Z86.711 - PERSONAL HISTORY OF PULMONARY EMBOLISM SNOMED Code(s): 291414886 (3) Deep vein thrombosis (DVT) of left upper extremity Current Visit: Yes Status: Acute Code(s): I82.622 - ACUTE EMBOLISM AND THROMBOSIS OF DEEP VEINS OF L UP EXTREM SNOMED Code(s): 542336305 (4) Intractable nausea and vomiting Current Visit: No Status: Acute Code(s): R11.2 - NAUSEA WITH VOMITING, UNSPECIFIED SNOMED Code(s): 362779753 (5) PICC (peripherally inserted central catheter) in place Current Visit: No Status: Acute Code(s): Z45.2 - ENCOUNTER FOR ADJUSTMENT AND MANAGEMENT OF VAD SNOMED Code(s): 5293822908527 (6) Gastroparesis Current Visit: No Status: Chronic Code(s): K31.84 - GASTROPARESIS SNOMED Code(s): 663485342 (7) History of Edna-en-Y gastric bypass Current Visit: No Status: Chronic Code(s): Z98.84 - BARIATRIC SURGERY STATUS SNOMED Code(s): 184546545 (8) Jejunostomy tube present Current Visit: No Status: Chronic Code(s): Z93.4 - OTHER ARTIFICIAL OPENINGS OF GASTROINTESTINAL TRACT STATUS SNOMED Code(s): 513604816
[2019-04-02] MEDS: HEPARIN SOD,PORK IN 0.45% NACL 25,000 UNIT in 0.45% NACL 1 250ML.BAG IV SCH (11:42)
--- NOTE | 2019-04-02 13:55 | P.GSCN ---
History of Present Illness Consult date: 04/02/19 Reason for Consult: Right upper extremity DVT that is post right-sided PICC line History of present illness: The patient is a pleasant 39-year-old female with multiple medical problems and hospitalizations with a history of gastroparesis including gastric bypass managed by [facility] in [facility]. The patient had a right PICC line where she gets daily TPN at home. We have been consulted regarding a right upper extremity DVT status post PICC line with regards to port-a-cath placement. The patient states on she started to develop right upper extremity pain and swelling. The patient has a past medical history of previous DVT in the contralateral arm and pulmonary embolisms. Hematology and General surgery on consult. States swelling in right upper extremity has improved significantly as well as the pain in the right upper extremity, right PICC line has been removed on 03/30/19. She denies any chest pain or shortness of breath. Review of Systems 14 point review of systems completed pertinent positive negatives as reported in the HPI. Past Medical History Past Medical History: Deep Vein Thrombosis (DVT), GERD/Reflux, Pulmonary Embolus (PE), Thyroid Disorder Additional Past Medical History / Comment(s): Idiopathic gastroparesis, takes little in orally-has J tube for feedings,R pulmonary embolism , pancreatitis, hypothyroid, chronic anemia, sinus problems, migraine, dvt -2018. 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 J tube replaced Past Anesthesia/Blood Transfusion Reactions: No Reported Reaction Past Psychological History: Depression Additional Psychological History / Comment(s): . Smoking Status: Never smoker Past Alcohol Use History: Rare Additional Past Alcohol Use History / Comment(s): PT DENIES SMOKING OR ANY ILLEGAL DRUG USE, HAS AN OCC DRINK. Past Drug Use History: None Reported - Past Family History Father Family Medical History: Hypertension Additional Family Medical History / Comment(s): . Mother Family Medical History: No Reported History Additional Family Medical History / Comment(s): . Medications and Allergies Home Medications Medication Instructions Recorded Confirmed Type Lansoprazole [Prevacid] 30 mg PO BID 02/02/18 03/29/19 History Montelukast Chew [Singulair] 10 mg PO DAILY 02/02/18 03/29/19 History Topiramate [Trokendi Xr] 50 mg PO HS 07/18/18 03/29/19 History Scopolamine 1.5MG/72Hr Patch 1 patch TRANSDERM Q72H #10 patch 07/31/18 03/29/19 Rx [TransDerm Scop] Thyroid,Pork [Piqua Thyroid] 60 mg PO Q48H 10/06/18 03/29/19 History Thyroid,Pork [Piqua Thyroid] 90 mg PO Q48H 10/06/18 03/29/19 History Mupirocin Calcium [Bactroban 2% 1 applic TOPICAL TID 7 Days gm 10/19/18 03/29/19 Rx Cream] SUMAtriptan SUCCINATE [Imitrex] 100 mg PO DAILY PRN 10/19/18 03/29/19 History Prucalopride Succinate [Motegrity] 2 mg PO DAILY 01/14/19 03/29/19 History Amoxic-Pot Clav 250-62.5MG/5Ml 10 ml PO TID 03/29/19 03/29/19 History [Augmentin 250-62.5 mg/5 ml Susp.] HYDROmorphone [Dilaudid] 4 mg PO Q8H PRN 03/29/19 03/29/19 History Ondansetron HCl [Zofran] 8 mg PO Q8H PRN 03/29/19 03/29/19 History Enoxaparin [Lovenox] 80 mg SQ Q12H #60 syringe 03/30/19 Rx Allergies Allergy/AdvReac Type Severity Reaction Status Date / Time metoclopramide [From Reglan] AdvReac Mild jittery Verified 03/29/19 16:12 prochlorperazine AdvReac Mild JITTERY Verified 03/29/19 16:12 [From Compazine] Surgical - Exam Vital Signs Temp Pulse Resp BP Pulse Ox 99.5 F 79 22 118/72 94 L 03/29/19 13:51 03/29/19 13:51 03/29/19 13:51 03/29/19 13:51 03/29/19 13:51 General appearance: The patient is alert, oriented, in no acute distress. HET: Head is normocephalic and atraumatic. Neck: Supple without lymphadenopathy. Trachea midline. Heart: S1 S2. Regular rate and rhythm. Lungs: No crackles or wheezes are heard. Abdomen: Soft, nontender, nondistended with bowel sounds. No peritoneal signs. No palpable organomegaly or masses. Peg tube intact. Extremities: Normal skin color and turgor. No cyanosis, rash, ulceration, clubbing, or edema. Radial pulses are 2/4 bilaterally. Neurological: No focal deficits. Strength and sensation are grossly intact. Results - Labs 04/01/19 07:29 03/29/19 15:49 Abnormal Lab Results - Last 24 Hours (Table) 04/02/19 Range/Units 06:54 APTT 45.4 H (22.0-30.0) sec Assessment and Plan Assessment: Right upper extremity DVT involving subclavian, axial, and brachial vein History of pulmonary embolism History of DVT left upper extremity Gastroparesis, TPN through a PICC line Plan: Discussed patient with Dr. Heck who states surgery can proceed with Port-A-Cath placement, and then start full anticoagulation after surgical intervention. Thank you for this consultation and allowing us to participate in the patient's care during her hospital stay. The above dictated assessment and findings were discussed with Dr. Heck. The impression and plan of care have been directed as dictated.
[2019-04-02] MEDS: SODIUM CHLORIDE 0.9% 1,000 ML IV SCH (14:45)
[2019-04-02] MEDS ORDERED: LIDOCAINE 1% INJ 10MG/ML (20 ML MDV) SQ ONE (15:13)
--- NOTE | 2019-04-02 16:04 | IR ---
PICC LINE PLACEMENT: HISTORY: Infection requiring long-term antibiotic therapy PROCEDURE: Ultrasound and fluoroscopic guidance of PICC line placement. COMPLICATIONS: None ANESTHESIA: 1. 1% Lidocaine locally. FINDINGS/TECHNIQUE: The procedure was explained to the patient. The risks, complications, benefits and alternatives were discussed and any questions were answered. Informed consent was obtained. The patient was placed supine on the fluoroscopic table and prepped and draped in the usual sterile fash ion. Utilizing a 21 gauge needle and sonographic and fluoroscopic guidance, access in the left basi lic vein was achieved and there is placement of a 0.018 guidewire. The guidewire terminating at the l evel the axilla. Suspect left axillary vein occlusion. Report called to patient's nurse.. The vein puncture was patent under ultrasound. A santos scale image was obtained to document patency of the vein punctured. All elements of the maximal barrier technique were utilized. 0.2 minutes of fluoroscopy and one image submitted. IMPRESSION: A PICC line could not be placed due to apparent occlusion of the left axillary vein. Report called to the patient's nurse.
--- NOTE | 2019-04-02 19:03 | P.PN ---
Subjective Progress Note Date: 04/02/19 Principal diagnosis: RUE DVT, on anticoagulation In f/u today pt denies any bleeding, abd discomfort is controlled, at baseline. Objective - Vital Signs Vital signs: Vital Signs Temp 98.6 F 04/02/19 15:00 Pulse 76 04/02/19 15:00 Resp 16 04/02/19 15:00 BP 102/67 04/02/19 15:00 Pulse Ox 100 04/02/19 15:00 Intake & Output 04/01/19 04/02/19 04/02/19 18:59 06:59 18:59 Intake Total 150.895 0384 317.754 Balance 913.070 3934 317.754 Intake: Intake, IV Titration 234.708 317.754 Amount Heparin Sod,Pork in 0.45% 234.708 317.754 NaCl 25,000 unit In 0.45 % NaCl 1 250ml.bag @ 18 UNITS/KG/HR 13.472 mls/hr IV .[id number] [facility] Rx#: [id number] Oral 1180 Other: Voiding Method Toilet # Voids 1 3 3 - Constitutional General appearance: Present: average body habitus, cooperative, no acute distress - EENT Eyes: Present: anicteric sclerae, EOMI ENT: Present: hearing grossly normal - Respiratory Details: respirations are even and unlabored - Cardiovascular Heart sounds: normal: S1, S2 Abnormal Heart Sounds: Absent: systolic murmur, diastolic murmur, rub, S3 Gallop, S4 Gallop, click, other - Peripheral edema leg Peripheral Edema: bilateral: None - Gastrointestinal General gastrointestinal: Present: normal bowel sounds, soft - Neurologic Neurologic: Present: CNII-XII intact - Musculoskeletal Musculoskeletal: Present: strength equal bilaterally - Psychiatric Psychiatric: Present: A&O x's 3, appropriate affect, intact judgment & insight - Labs CBC & Chem 7: 04/01/19 07:29 03/29/19 15:49 Labs: Abnormal Lab Results - Last 24 Hours (Table) 04/02/19 04/02/19 Range/Units 06:54 16:03 APTT 45.4 H 61.0 H (22.0-30.0) sec - Imaging and Cardiology Venous US: report reviewed Assessment and Plan (1) DVT (deep venous thrombosis) Narrative/Plan: New RUE DVT, most likely r/t PICC line. This has been removed. Pt on heparin drip. LUE doppler negative for DVT at baseline. Ok to proceed with PICC line, order placed. Increase lovenox dose to 1mg/kg BID-Erx sent, drug ordered at pt pharmacy. Ok to transition over to lovenox when cleared by Attending and Consulting Physicians. Current Visit: Yes Status: Acute Priority: High Code(s): I82.409 - ACUTE EMBOLISM AND THOMBOS UNSP DEEP VN UNSP LOWER EXTREMITY SNOMED Code(s): 165646772 (2) Pulmonary embolism Current Visit: No Status: Chronic Priority: Low Code(s): I26.99 - OTHER PULMONARY EMBOLISM WITHOUT ACUTE COR PULMONALE SNOMED Code(s): 87700589 Plan: Pt chronic medical conditions (gastroparesis, SMA syndrome, chronic invasive lines, recurrent abd infections, Hx of recurrent clot) that place her at higher risk for clots. I have no results as of today. Case discussed with Dr. Chung. He recommended not to place a new line immediately post DVT. Recommend placement ok to proceed with this week, order placed. Port not recommend
--- NOTE | 2019-04-02 21:08 | PN ---
PROGRESS NOTE DATE OF SERVICE: 04/02/2019 CHIEF COMPLAINT: DVT of the right arm and gastroparesis. HISTORY OF PRESENT ILLNESS: The patient is doing well. She has not had any further pain or swelling in the right arm. We are now waiting to see if she will receive into a PICC line. Vascular surgery has been asked to evaluate her for a port. She goes to [place] later this week. PHYSICAL EXAMINATION: She is afebrile. Color is good. Chest is clear. Cardiac exam is normal. Abdomen is soft. IMPRESSION: 1. Status post deep vein thrombosis of the right arm. 2. Gastroparesis. PLAN: Await whether or not she will receive a PICC line or a port before she is discharged. MMODL / IJN: [id number] /
[2019-04-02] MEDS: THYROID, PORK 30 MG TAB PO SCH (21:31)
[2019-04-02] MEDS: HYDROPHILIC CREAM 180 GM TUBE TOPICAL SCH (21:33)
[2019-04-02] MEDS: TROKENDI 50 MG PO SCH (21:44)
--- NOTE | 2019-04-02 22:32 | PN ---
PROGRESS NOTE DATE OF SERVICE: 04/02/2019. REASON FOR FOLLOWUP: Jejunostomy tube site cellulitis. INTERVAL HISTORY: The patient is currently afebrile. She has been breathing comfortably. Denies having any chest pain. No further vomiting. Overall drainage around the jejunostomy site has decreased. No diarrhea. PHYSICAL EXAMINATION: Blood pressure is 102/67, pulse of 76, temperature of 98.6. She is 100% on room air. General description is a middle-aged female lying in bed in no distress. RESPIRATORY SYSTEM: Unlabored breathing. Clear to auscultation anteriorly. HEART: S1, S2. Regular rate and rhythm. ABDOMEN: Soft. The jejunostomy tube site symptoms has decreased; still has slight drainage. LABS: White count 8.1. DIAGNOSTIC IMPRESSION AND PLAN: Patient with jejunostomy tube site erythema, more likely chemical irritation cellulitis. Local care to be treated with Triad cream to keep the area dry and continue supportive care. MMODL / IJN: [id number] /
[2019-04-03] MEDS: HYDROmorphone 1 MG/ML 1 ML SYRINGE IVP PRN ×8 (00:37→21:51)
[2019-04-03] MEDS: ONDANSETRON 4 MG/2 ML VIAL IVP PRN ×2 (03:31→21:59)
[2019-04-03] MEDS: PROMETHAZINE INJ 25 MG in SODIUM CHLORIDE 0.9% 50 ML IVPB PRN ×2 (05:43→14:37)
[2019-04-03] MEDS ORDERED: IV FLUID CONTINUATION 250 ML IV ONE (10:36)
[2019-04-03] MEDS: MOTEGRITY PO SCH (10:44)
[2019-04-03] MEDS: MONTELUKAST 5 MG CHEWABLE PO SCH (10:44)
[2019-04-03] MEDS: fentaNYL (PF) 50 MCG/ML 2 ML AMP IVP ONE ×2 (11:21→11:30)
[2019-04-03] MEDS ORDERED: MIDAZOLAM 2 MG/2 ML VIAL IVP ONE (11:21)
[2019-04-03] MEDS: LIDOCAINE 1% INJ 10MG/ML (20 ML MDV) SQ ONE ×3 (11:22→11:30)
--- NOTE | 2019-04-03 12:09 | P.OP ---
Date of Procedure: 04/03/19 Preoperative Diagnosis: Gastroparesis, need for TPN, poor IV access, bilateral upper extremity DVT Postoperative Diagnosis: Same Procedure(s) Performed: #1 ultrasound-guided right internal jugular vein access #2 placement of dual-lumen tunneled Butcher catheter #3 moderate conscious sedation 30 minutes Anesthesia: local, other Surgeon: Maximino Luna Estimated Blood Loss (ml): 5 Pathology: none sent Condition: stable Disposition: floor Indications for Procedure: 39-year-old female with chronic gastroparesis on chronic TPN as well as tube feeds via J-tube which has been nonfunctional. She previously had a PICC line in her right upper extremity which was removed secondary to DVT. An attempt was performed yesterday for a PICC line via the left upper extremity which was unsuccessful secondary to chronic thrombus according to the interventional radiologist. Due to her poor access and need for TPN she presents today for tunneled central venous catheter placement. Operative Findings: Ultrasound revealed patent bilateral internal jugular veins without any signs of thrombus. Description of Procedure: After written informed consent was obtained the patient all risks benefits competitions were described the patient is brought to the [facility] and laid in a supine position. The area of the neck was prepped and draped in usual sterile fashion. Utilizing ultrasound bilateral internal jugular veins were visualized and shown to be patent without any thrombus. There was a dual system on the left and therefore right IJ access was chosen. Local anesthetic was infused overlying the area of the right internal jugular vein. Under ultrasound guidance a micropuncture needle was utilized and the vein was accessed. Wire was placed followed by introducer sheath and the microwire was replaced with an 035 J-wire. Attention was then placed to the chest wall. Local anesthetic was infused overlying the anterior chest wall around the area of her previous scars from previous catheters. A small incision was then created and local anesthetic was infused throughout the chest wall to the previous needle insertion site. Incisions were then created around the wire and the dual lumen Butcher catheter was then tunneled from the chest wall to the neck insertion site. The catheter was then measured and cut to the appropriate size to place at the superior vena cava atrial junction. Introducer breakaway sheath was then guided over the guidewire into appropriate position. Guidewire and introducer were removed and the Butcher catheter was guided through the breakaway sheath and the sheath was removed. Catheter was found to be in good position without any kinks was assessed for patency injured flushed easily and then was hep-locked. The patient tolerated procedure well the incisions were then closed with Steri- Strips and nylon suture. Skin was cleansed and dressings were placed. The patient was then sent back to her room for recovery. Chest x-ray was to be performed at the bedside.
--- NOTE | 2019-04-03 12:14 | IR ---
EXAMINATION TYPE: IR cvc insert central tunneled DATE OF EXAM: 04/03/2019 COMPARISON: NONE HISTORY: Fluoroscopy time. Fluoroscopy was provided to the referring clinician.
--- NOTE | 2019-04-03 12:36 | XR ---
EXAMINATION TYPE: XR chest 1V portable DATE OF EXAM: 04/03/2019 COMPARISON: 12/07/2018 HISTORY: Line placement TECHNIQUE: Single frontal view of the chest is obtained. FINDINGS: There is no focal air space opacity, pleural effusion, or pneumothorax seen. The cardiac silhouette size is within normal limits. The osseous structures are intact. Right-sided line seen w ith tip overlying the SVC and no sizable pneumothorax no overt failure. IMPRESSION: Tip of the catheters overlying the SVC with no sizable pneumothorax.
--- NOTE | 2019-04-03 13:41 | PN ---
PROGRESS NOTE CHIEF COMPLAINT: Gastroparesis. HISTORY OF PRESENT ILLNESS: This lady had a central line placed yesterday and will be asking nutrition to resume her TPN. Other than that, she is doing well. PHYSICAL EXAMINATION: Abdomen is soft, nontender. Bowel sounds are present. Chest is clear. IMPRESSION: 1. Gastroparesis. 2. Deep venous thrombosis of the right arm. PLAN: Consult with dietitian to resume TPN and discharge once this is being tolerated and then she goes to [place] in a few days. MMODL / IJN: [id number] /
[2019-04-03] MEDS: HEPARIN SOD,PORK IN 0.45% NACL 25,000 UNIT in 0.45% NACL 1 250ML.BAG IV SCH ×2 (14:22→16:47)
[2019-04-03 15:32] LABS: African American GFR (CKD) >90 (>60 ml/min/1.73 sqM); Anion Gap 9 mmol/L; Blood Urea Nitrogen 9 mg/dL (7-17); Carbon Dioxide 19 mmol/L (22-30); Chloride 112 mmol/L (98-107); Glucose 109 mg/dL (74-99); Magnesium 1.9 mg/dL (1.6-2.3); Non-African American GFR(CKD) 82 (>60 ml/min/1.73 sqM); Phosphorus 3.9 mg/dL (2.5-4.5); Potassium 4.1 mmol/L (3.5-5.1); Sodium 140 mmol/L (137-145); Triglycerides 131 mg/dL (<150)
[2019-04-03] MEDS: SODIUM CHLORIDE 0.9% 1,000 ML IV SCH (16:51)
[2019-04-03] MEDS: oxyCODONE-APAP 10-325MG 1 EACH TAB PO PRN (16:56)
[2019-04-03] MEDS ORDERED: MVI, ADULT NO.4 WITH VIT K 10 ML, TRACE (CONC-1ML/DOSE) 1 ML in AMINO ACID 5%-D15W+LYTE... IV SCH ×3 (18:00)
[2019-04-03] MEDS: FAT EMULSION 20% 250 ML in EMPTY BAG 1 BAG IV SCH (20:00)
[2019-04-03] MEDS: INSULIN ASPART (NovoLOG) 100 UNIT/ML VIAL SQ SCH (20:29)
[2019-04-03 20:30] LABS: Glucose,Whole Blood 103 mg/dL (75-99)
[2019-04-03] MEDS: TROKENDI 50 MG PO SCH (21:47)
[2019-04-03] MEDS: HYDROPHILIC CREAM 180 GM TUBE TOPICAL SCH (21:47)
[2019-04-03] MEDS: THYROID, PORK 30 MG TAB PO SCH (21:47)
[2019-04-04] MEDS: HYDROmorphone 1 MG/ML 1 ML SYRINGE IVP PRN ×7 (01:19→21:44)
[2019-04-04] MEDS: INSULIN ASPART (NovoLOG) 100 UNIT/ML VIAL SQ SCH ×4 (02:04→20:02)
[2019-04-04 02:05] LABS: Glucose,Whole Blood 105 mg/dL (75-99)
[2019-04-04 07:07] LABS: Glucose,Whole Blood 104 mg/dL (75-99)
[2019-04-04 07:25] LABS: Ionized Calcium 5.3 mg/dL (4.5-5.3)
[2019-04-04 07:40] LABS: Calcium 9.1 mg/dL (8.4-10.2); Phosphorus 4.9 mg/dL (2.5-4.5)
[2019-04-04 07:44] LABS: Potassium 4.2 mmol/L (3.5-5.1)
[2019-04-04 07:45] LABS: Albumin 3.4 g/dL (3.5-5.0)
[2019-04-04] MEDS: MOTEGRITY PO SCH (08:11)
[2019-04-04] MEDS: MONTELUKAST 5 MG CHEWABLE PO SCH (08:12)
[2019-04-04] MEDS: ONDANSETRON 4 MG/2 ML VIAL IVP PRN ×2 (12:10→20:16)
[2019-04-04 12:54] LABS: Glucose,Whole Blood 112 mg/dL (75-99)
[2019-04-04] MEDS: HEPARIN SOD,PORK IN 0.45% NACL 25,000 UNIT in 0.45% NACL 1 250ML.BAG IV SCH (13:11)
--- NOTE | 2019-04-04 13:59 | P.PN ---
Progress Note - Text Progress Note Date: 04/04/19 Patient seen and examined. No issues overnight. States pain is controlled. Vital signs stable Right-sided tunneled catheter site is clean, dry and intact. No signs of hematoma or infection. A/P: Postop day #1 right IJ tunneled catheter for TPN - Continue current management. We will reevaluate at your request.
[2019-04-04] MEDS: FAT EMULSION 20% 250 ML in EMPTY BAG 1 BAG IV SCH (17:45)
[2019-04-04] MEDS: SODIUM CHLORIDE 0.9% 1,000 ML IV SCH (17:46)
[2019-04-04] MEDS: [UNRECOGNIZED DRUG - REMARK] IV SCH ×7 (17:51)
[2019-04-04] MEDS ORDERED: 1: MVI, ADULT NO.4 WITH VIT K 10 ML, TRACE (CONC-1ML/DOSE) 1 ML in AMINO ACID 5%-D15W+LY IV SCH ×3 (18:00)
[2019-04-04] MEDS: PROMETHAZINE INJ 25 MG in SODIUM CHLORIDE 0.9% 50 ML IVPB PRN (18:24)
[2019-04-04 19:39] LABS: Glucose,Whole Blood 114 mg/dL (75-99)
[2019-04-04] MEDS: SCOPOLAMINE 1.5MG/72HR PATCH TRANSDERM SCH (20:14)
[2019-04-04] MEDS: oxyCODONE-APAP 10-325MG 1 EACH TAB PO PRN (20:14)
[2019-04-04] MEDS: THYROID, PORK 30 MG TAB PO SCH (20:14)
[2019-04-04] MEDS: TROKENDI 50 MG PO SCH (20:14)
[2019-04-04] MEDS: HYDROPHILIC CREAM 180 GM TUBE TOPICAL SCH (21:44)
--- NOTE | 2019-04-04 22:57 | PN ---
PROGRESS NOTE CHIEF COMPLAINT: Gastroparesis. HISTORY OF PRESENT ILLNESS: This lady is doing well and the TPN has been started. She will be able to be discharged tomorrow. She is tolerating the TPN well. She has had no nausea and pains are not as severe today. PHYSICAL EXAMINATION: Chest is clear. Cardiac exam is normal. Abdomen is soft. IMPRESSION: Gastroparesis. PLAN: Continue with TPN today and home tomorrow. MMODL / IJN: [id number] /
[2019-04-05] MEDS: HYDROmorphone 1 MG/ML 1 ML SYRINGE IVP PRN ×8 (00:26→21:55)
[2019-04-05 00:35] LABS: Glucose,Whole Blood 114 mg/dL (75-99)
[2019-04-05] MEDS: INSULIN ASPART (NovoLOG) 100 UNIT/ML VIAL SQ SCH ×4 (00:35→20:20)
[2019-04-05] MEDS: PROMETHAZINE INJ 25 MG in SODIUM CHLORIDE 0.9% 50 ML IVPB PRN ×3 (03:29→17:12)
[2019-04-05] MEDS: ONDANSETRON 4 MG/2 ML VIAL IVP PRN ×3 (06:27→21:55)
[2019-04-05] MEDS: [UNRECOGNIZED DRUG - REMARK] IV SCH ×14 (06:28→20:37)
[2019-04-05] MEDS: MOTEGRITY PO SCH (07:42)
[2019-04-05] MEDS: HEPARIN SODIUM,PORCINE 5,000 UNIT/ML 1 ML VIAL IV PRN (07:42)
[2019-04-05 08:19] LABS: African American GFR (CKD) >90 (>60 ml/min/1.73 sqM); Anion Gap 7 mmol/L; Blood Urea Nitrogen 10 mg/dL (7-17); Calcium 9.1 mg/dL (8.4-10.2); Carbon Dioxide 19 mmol/L (22-30); Chloride 114 mmol/L (98-107); Glucose 99 mg/dL (74-99); Magnesium 1.9 mg/dL (1.6-2.3); Non-African American GFR(CKD) 88 (>60 ml/min/1.73 sqM); Sodium 140 mmol/L (137-145)
[2019-04-05 08:26] LABS: Glucose,Whole Blood 92 mg/dL (75-99)
[2019-04-05] MEDS ORDERED: ENOXAPARIN 80 MG/0.8 ML SYRINGE SQ SCH (10:00)
[2019-04-05] MEDS: MONTELUKAST 5 MG CHEWABLE PO SCH (10:41)
--- NOTE | 2019-04-05 13:54 | PN ---
PROGRESS NOTE CHIEF COMPLAINT: Gastroparesis. HISTORY OF PRESENT ILLNESS: This lady is doing well and she has not had any vomiting or significant pain. She is being treated with hyperalimentation now. I do not see a reason why she could not go home. She states that the project finance analyst planned to come back and adjust her dose of TPN, so she can echo today. PHYSICAL EXAMINATION: Chest is clear. Cardiac exam is normal. Abdomen is soft, nontender. IMPRESSION: Gastroparesis. PLAN: She could go home anytime when she is cleared by Nutrition to go home with a TPN. MMODL / IJN: [id number] /
[2019-04-05 14:00] LABS: Glucose,Whole Blood 108 mg/dL (75-99)
[2019-04-05] MEDS: FAT EMULSION 20% 250 ML in EMPTY BAG 1 BAG IV SCH (17:13)
[2019-04-05] MEDS: SODIUM CHLORIDE 0.9% 1,000 ML IV SCH (18:04)
[2019-04-05 20:08] LABS: Glucose,Whole Blood 89 mg/dL (75-99)
[2019-04-05] MEDS: THYROID, PORK 30 MG TAB PO SCH (21:00)
[2019-04-05] MEDS: TROKENDI 50 MG PO SCH (21:01)
[2019-04-05] MEDS: HYDROPHILIC CREAM 180 GM TUBE TOPICAL SCH (21:02)
[2019-04-06] MEDS: HYDROmorphone 1 MG/ML 1 ML SYRINGE IVP PRN ×8 (01:06→23:28)
[2019-04-06 01:51] LABS: Glucose,Whole Blood 104 mg/dL (75-99)
[2019-04-06] MEDS: PROMETHAZINE INJ 25 MG in SODIUM CHLORIDE 0.9% 50 ML IVPB PRN ×4 (02:03→22:23)
[2019-04-06] MEDS: INSULIN ASPART (NovoLOG) 100 UNIT/ML VIAL SQ SCH ×4 (02:56→20:48)
[2019-04-06] MEDS: ONDANSETRON 4 MG/2 ML VIAL IVP PRN ×3 (04:35→17:33)
[2019-04-06] MEDS: MONTELUKAST 5 MG CHEWABLE PO SCH (07:49)
[2019-04-06] MEDS: MOTEGRITY PO SCH (07:51)
[2019-04-06 08:07] LABS: African American GFR (CKD) >90 (>60 ml/min/1.73 sqM); Anion Gap 7 mmol/L; Blood Urea Nitrogen 15 mg/dL (7-17); Calcium 9.3 mg/dL (8.4-10.2); Carbon Dioxide 21 mmol/L (22-30); Chloride 111 mmol/L (98-107); Glucose 99 mg/dL (74-99); Magnesium 1.9 mg/dL (1.6-2.3); Non-African American GFR(CKD) 83 (>60 ml/min/1.73 sqM); Phosphorus 4.1 mg/dL (2.5-4.5); Potassium 4.3 mmol/L (3.5-5.1); Sodium 139 mmol/L (137-145)
[2019-04-06 08:14] LABS: Glucose,Whole Blood 98 mg/dL (75-99)
[2019-04-06] MEDS: [UNRECOGNIZED DRUG - REMARK] IV SCH ×7 (09:08)
[2019-04-06] MEDS: ENOXAPARIN 80 MG/0.8 ML SYRINGE SQ SCH ×2 (11:23→21:47)
[2019-04-06 14:05] LABS: Glucose,Whole Blood 118 mg/dL (75-99)
--- NOTE | 2019-04-06 19:05 | PN ---
PROGRESS NOTE CHIEF COMPLAINT: Gastroparesis. HISTORY OF PRESENT ILLNESS: This lady was doing well and was going to be discharged, but later in the afternoon she started to have nausea and vomiting. She has no hematemesis, fever, chills, etc. PHYSICAL EXAMINATION: Chest is clear. Cardiac exam is normal. Abdomen is soft and bowel sounds are present. IMPRESSION: 1. Intractable nausea and vomiting. 2. Gastroparesis. PLAN: Cancel discharge and follow her emesis to see if anything else can be done. MMODL / IJN: [id number] /
[2019-04-06 19:52] LABS: Glucose,Whole Blood 85 mg/dL (75-99)
[2019-04-06] MEDS ORDERED: [UNRECOGNIZED DRUG - REMARK] IV SCH ×7 (20:00)
[2019-04-06] MEDS: FAT EMULSION 20% 250 ML in EMPTY BAG 1 BAG IV SCH (21:47)
[2019-04-06] MEDS: THYROID, PORK 30 MG TAB PO SCH (21:47)
[2019-04-06] MEDS: TROKENDI 50 MG PO SCH (22:16)
[2019-04-06] MEDS: HYDROPHILIC CREAM 180 GM TUBE TOPICAL SCH (22:17)
[2019-04-07] MEDS: HYDROmorphone 1 MG/ML 1 ML SYRINGE IVP PRN ×7 (02:30→21:23)
[2019-04-07 02:46] LABS: Glucose,Whole Blood 91 mg/dL (75-99)
[2019-04-07] MEDS ORDERED: [UNRECOGNIZED DRUG - OTHER] IV SCH (03:00)
[2019-04-07] MEDS ORDERED: AMINO ACID 5% IV SCH (03:00)
[2019-04-07] MEDS ORDERED: POTASSIUM ACETATE IV SCH (03:00)
[2019-04-07] MEDS ORDERED: SODIUM ACETATE IV SCH (03:00)
[2019-04-07] MEDS: INSULIN ASPART (NovoLOG) 100 UNIT/ML VIAL SQ SCH ×4 (03:20→21:09)
[2019-04-07] MEDS: SODIUM CHLORIDE 0.9% 1,000 ML IV SCH ×2 (05:31→17:49)
[2019-04-07] MEDS: ONDANSETRON 4 MG/2 ML VIAL IVP PRN ×3 (05:41→17:45)
[2019-04-07 08:14] LABS: Magnesium 1.9 mg/dL (1.6-2.3); Phosphorus 4.7 mg/dL (2.5-4.5)
[2019-04-07 08:43] LABS: Glucose,Whole Blood 109 mg/dL (75-99)
[2019-04-07] MEDS: MONTELUKAST 5 MG CHEWABLE PO SCH (08:49)
[2019-04-07] MEDS: ENOXAPARIN 80 MG/0.8 ML SYRINGE SQ SCH ×2 (08:50→21:15)
[2019-04-07] MEDS: MOTEGRITY PO SCH (08:51)
[2019-04-07] MEDS: PROMETHAZINE INJ 25 MG in SODIUM CHLORIDE 0.9% 50 ML IVPB PRN ×3 (09:05→22:13)
[2019-04-07 14:34] LABS: Glucose,Whole Blood 92 mg/dL (75-99)
[2019-04-07] MEDS: FAT EMULSION 20% 250 ML in EMPTY BAG 1 BAG IV SCH (17:55)
--- NOTE | 2019-04-07 19:00 | PN ---
PROGRESS NOTE CHIEF COMPLAINT: Gastroparesis. HISTORY OF PRESENT ILLNESS: This lady started to have nausea and vomiting and increased abdominal pain yesterday. The discharge was canceled. She is still having episodes of emesis. She has had no abdominal pain or distention. PHYSICAL EXAMINATION: Vital signs are normal and. Chest is clear. Cardiac exam is normal. Abdomen is soft and not distended. There are no masses. IMPRESSION: Gastroparesis with intractable nausea, vomiting, abdominal pain. PLAN: Hold discharge until this episode of vomiting stops. MMODL / IJN: [id number] /
[2019-04-07] MEDS ORDERED: [UNRECOGNIZED DRUG - REMARK] IV SCH ×7 (20:00)
[2019-04-07 20:03] LABS: Glucose,Whole Blood 91 mg/dL (75-99)
[2019-04-07] MEDS: TROKENDI 50 MG PO SCH (21:15)
[2019-04-07] MEDS: THYROID, PORK 30 MG TAB PO SCH (21:15)
[2019-04-07] MEDS: SCOPOLAMINE 1.5MG/72HR PATCH TRANSDERM SCH (21:18)
[2019-04-07] MEDS: HYDROPHILIC CREAM 180 GM TUBE TOPICAL SCH (21:31)
[2019-04-08] MEDS: HYDROmorphone 1 MG/ML 1 ML SYRINGE IVP PRN ×5 (00:09→12:36)
[2019-04-08] MEDS: ONDANSETRON 4 MG/2 ML VIAL IVP PRN ×3 (00:10→12:36)
[2019-04-08 01:57] LABS: Glucose,Whole Blood 108 mg/dL (75-99)
[2019-04-08] MEDS: INSULIN ASPART (NovoLOG) 100 UNIT/ML VIAL SQ SCH ×2 (02:38→09:22)
[2019-04-08] MEDS ORDERED: SODIUM ACETATE IV SCH (03:00)
[2019-04-08] MEDS ORDERED: AMINO ACID 5% IV SCH (03:00)
[2019-04-08] MEDS ORDERED: POTASSIUM ACETATE IV SCH (03:00)
[2019-04-08] MEDS ORDERED: [UNRECOGNIZED DRUG - OTHER] IV SCH (03:00)
[2019-04-08] MEDS: PROMETHAZINE INJ 25 MG in SODIUM CHLORIDE 0.9% 50 ML IVPB PRN ×2 (03:22→09:19)
[2019-04-08 04:13] VITALS: RESP 16
[2019-04-08 07:49] LABS: Basophils % (A) 1 %; Eosinophils # (A) 0.3 k/uL (0-0.7); Eosinophils % (A) 5 %; HCT 38.1 % (34.0-46.0); HGB 12.6 gm/dL (11.4-16.0); Lymphocytes # (A) 2.2 k/uL (1.0-4.8); Lymphocytes % (A) 41 %; MCH 28.7 pg (25.0-35.0); MCHC 33.1 g/dL (31.0-37.0); MCV 86.5 fL (80.0-100.0); Monocytes # (A) 0.4 k/uL (0-1.0); Monocytes % (A) 7 %; Neutrophils # (A) 2.3 k/uL (1.3-7.7); Neutrophils % (A) 43 %; Platelet Count 279 k/uL (150-450); RBC 4.41 m/uL (3.80-5.40); RDW 13.3 % (11.5-15.5); WBC 5.4 k/uL (3.8-10.6)
[2019-04-08 07:53] LABS: Albumin 3.3 g/dL (3.5-5.0); Calcium 8.9 mg/dL (8.4-10.2); Phosphorus 3.6 mg/dL (2.5-4.5); Potassium 3.4 mmol/L (3.5-5.1)
[2019-04-08 07:56] VITALS: BP 109/68; PULSE 90; TEMP 98.6
[2019-04-08] MEDS: ENOXAPARIN 80 MG/0.8 ML SYRINGE SQ SCH (09:21)
[2019-04-08] MEDS: MONTELUKAST 5 MG CHEWABLE PO SCH (09:22)
[2019-04-08] MEDS: MOTEGRITY PO SCH (09:22)
[2019-04-08 09:29] LABS: Glucose,Whole Blood 97 mg/dL (75-99)
[2019-04-08] MEDS: oxyCODONE-APAP 10-325MG 1 EACH TAB PO PRN (13:32)
[2019-04-08] MEDS ORDERED: [UNRECOGNIZED DRUG - REMARK] IV SCH ×7 (20:00)
[2019-04-09] MEDS ORDERED: [UNRECOGNIZED DRUG - OTHER] IV SCH (03:00)
[2019-04-09] MEDS ORDERED: SODIUM ACETATE IV SCH (03:00)
[2019-04-09] MEDS ORDERED: POTASSIUM ACETATE IV SCH (03:00)
[2019-04-09] MEDS ORDERED: AMINO ACID 5% IV SCH (03:00)
--- NOTE | 2019-04-09 07:45 | DS ---
DISCHARGE SUMMARY DATE OF SERVICE: 04/08/2019 CHIEF COMPLAINT: Deep venous thrombosis of the right arm. HISTORY OF PRESENT ILLNESS: This lady is finally feeling like she is able to go home. Nausea and vomiting stopped and she will be sent home today and home care will come in and set her up with her TPN. FINAL DIAGNOSES: Are unchanged. MMODL / IJN: [id number] /
[2019-04-09] MEDS ORDERED: [UNRECOGNIZED DRUG - REMARK] IV SCH ×7 (20:00)
== END 2019-04-08 13:59 | disposition home health service (06) | DRG 315 ==
LOC: EC 13:43 → 4SSUR 17:34 → OBSVTOIN 03-30 01:27
PROVIDERS: ADMIT Family Medicine; ATTEND Family Medicine
PROC: 02HV33Z Insertion of Infusion Device into Superior Vena Cava, Percutaneous Approach (ICD-10-PCS; principal; 2019-04-03 07:30)
PROC: 3E0436Z Introduction of Nutritional Substance into Central Vein, Percutaneous Approach (ICD-10-PCS; 2019-04-03 07:30)
DX: T82.868A Thrombosis due to vascular prosthetic devices, implants and grafts, initial encounter (principal); I82.A11 Acute embolism and thrombosis of right axillary vein; I82.621 Acute embolism and thrombosis of deep veins of right upper extremity; I82.B11 Acute embolism and thrombosis of right subclavian vein; K55.1 Chronic vascular disorders of intestine; K94.19 Other complications of enterostomy; E03.9 Hypothyroidism, unspecified; K31.84 Gastroparesis; F32.9 Major depressive disorder, single episode, unspecified; G43.909 Migraine, unspecified, not intractable, without status migrainosus; K21.9 Gastro-esophageal reflux disease without esophagitis; R11.2 Nausea with vomiting, unspecified; Z79.01 Long term (current) use of anticoagulants; Z79.899 Other long term (current) drug therapy; Z79.890 Hormone replacement therapy; Z98.84 Bariatric surgery status; Z86.718 Personal history of other venous thrombosis and embolism; Z86.711 Personal history of pulmonary embolism; Z88.8 Allergy status to other drugs, medicaments and biological substances; Z90.49 Acquired absence of other specified parts of digestive tract; Z82.49 Family history of ischemic heart disease and other diseases of the circulatory system; Y83.3 Surgical operation with formation of external stoma as the cause of abnormal reaction of the patient, or of later complication, without mention of misadventure at the time of the procedure; Y84.8 Other medical procedures as the cause of abnormal reaction of the patient, or of later complication, without mention of misadventure at the time of the procedure
CPT/HCPCS: 36415; 36556; 71045; 71275; 76937; 77001; 80048; 80053; 82040; 82330; 83735; 84100; 84466; 84478; 84484; 85025; 85610; 85730; 93005; 96374; 96375; 99285

== ENCOUNTER 2019-04-15 20:05 | Emergency (ER) | payer BC ==
[2019-04-15 20:12] VITALS: RESP 16; TEMP 98.4
--- NOTE | 2019-04-15 20:49 | ED ---
General Adult HPI - General Chief complaint: Recheck/Abnormal Lab/Rx Stated complaint: Central line issues Time Seen by Provider: 04/15/19 20:24 Source: patient Mode of arrival: ambulatory Limitations: no limitations - History of Present Illness Initial comments: Patient presents the ED with her for evaluation. Patient states that she attempted to use her Butcher catheter earlier today when she noticed that it had cracked and was leaking. She states that she uses her Butcher catheter for TPN. She states that she has no other source of caloric intake. Patient states that she has gastroparesis and she does not eat at all. Patient states that she has a J-tube in place, but it is not currently functional. Patient denies having any pain, fever, headache, chest pain, dyspnea, dizziness, abdominal pain, nausea or vomiting, or any other symptoms or complaints. Patient's states that the patient's Butcher catheter was placed about a week ago by vascular surgery here at [facility]. - Related Data Home Medications Medication Instructions Recorded Confirmed Lansoprazole [Prevacid] 30 mg PO BID 02/02/18 03/29/19 Montelukast Chew [Singulair] 10 mg PO DAILY 02/02/18 03/29/19 Topiramate [Trokendi Xr] 50 mg PO HS 07/18/18 03/29/19 Thyroid,Pork [Quinter Thyroid] 60 mg PO Q48H 10/06/18 03/29/19 Thyroid,Pork [Quinter Thyroid] 90 mg PO Q48H 10/06/18 03/29/19 SUMAtriptan SUCCINATE [Imitrex] 100 mg PO DAILY PRN 10/19/18 03/29/19 Prucalopride Succinate [Motegrity] 2 mg PO DAILY 01/14/19 03/29/19 HYDROmorphone [Dilaudid] 4 mg PO Q8H PRN 03/29/19 03/29/19 Ondansetron HCl [Zofran] 8 mg PO Q8H PRN 03/29/19 03/29/19 Previous Rx's Medication Instructions Recorded Scopolamine 1.5MG/72Hr Patch 1 patch TRANSDERM Q72H #10 patch 07/31/18 [TransDerm Scop] Mupirocin Calcium [Bactroban 2% 1 applic TOPICAL TID 7 Days gm 07/18/19 Cream] Allergies Allergy/AdvReac Type Severity Reaction Status Date / Time metoclopramide [From Reglan] AdvReac Mild jittery Verified 04/15/19 20:11 prochlorperazine AdvReac Mild JITTERY Verified 04/15/19 20:11 [From Compazine] Review of Systems ROS Statement: Those systems with pertinent positive or pertinent negative responses have been documented in the HPI. ROS Other: All systems not noted in ROS Statement are negative. Past Medical History Past Medical History: Deep Vein Thrombosis (DVT), GERD/Reflux, Pulmonary Embolus (PE), Thyroid Disorder Additional Past Medical History / Comment(s): Idiopathic gastroparesis, takes little in orally-has J tube for feedings,R pulmonary embolism , pancreatitis, hypothyroid, chronic anemia, sinus problems, migraine, dvt -2018. 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 J tube replaced Past Anesthesia/Blood Transfusion Reactions: No Reported Reaction Past Psychological History: Depression Smoking Status: Never smoker Past Alcohol Use History: Rare Past Drug Use History: None Reported - Past Family History Father Family Medical History: Hypertension Additional Family Medical History / Comment(s): . Mother Family Medical History: No Reported History Additional Family Medical History / Comment(s): . General Exam Limitations: no limitations General appearance: alert, in no apparent distress Head exam: Present: atraumatic, normocephalic Eye exam: Present: normal appearance, EOMI ENT exam: Present: mucous membranes moist Neck exam: Present: other (Trachea is in midline) Respiratory exam: Present: normal lung sounds bilaterally, other (Damaged Butcher catheter is noted over chest wall with tape in place (placed by patient)). Absent: respiratory distress, wheezes, rales, rhonchi Cardiovascular Exam: Present: regular rate, normal rhythm, normal heart sounds, other (Normal radial pulses bilaterally) GI/Abdominal exam: Present: soft, other (J-tube is noted). Absent: distended, tenderness Extremities exam: Absent: pedal edema Neurological exam: Present: alert, oriented X3. Absent: motor sensory deficit Psychiatric exam: Present: normal affect, normal mood Skin exam: Present: warm, dry, intact, normal color Course Vital Signs 04/15/19 20:09 Temperature 98.4 F Pulse Rate 78 Respiratory 16 Rate Blood Pressure 134/89 O2 Sat by Pulse 100 Oximetry - Reevaluation(s) Reevaluation #1: 04/15/19 20:34 Case and H&P were discussed with Dr. Hess (vascular surgery). She states that the vascular surgery service would be happy to replace the patient's Butcher catheter, but she is not exactly sure when they would be able to do that. She recommends admitting the patient to the medical service in the meantime. She has no further recommendations at this time. 04/15/19 20:49 Case, H&P and my discussion with Dr. Hess as above were discussed with Dr. Adame. He accepts hospital admission. He has no further recommendations at this time. Medical Decision Making - Medical Decision Making Dr. Hess (vascular surgery) was consulted from the ED, and she recommended hospital admission under care of the medical service and plan for Butcher catheter replacement in the near future. Dr. Adame has accepted hospital admission. Disposition Clinical Impression: Butcher catheter dysfunction Disposition: ADMITTED IP TO THIS [facility] Condition: Stable Is patient prescribed a controlled substance at d/c from ED?: No Referrals: Wong Adame MD [Primary Care Provider] - 1-2 days Time of Disposition: 20:49
[2019-04-15] MEDS ORDERED: SUMAtriptan SUCCINATE 50 MG TAB PO PRN (20:55)
[2019-04-15] MEDS ORDERED: TOPIRAMATE 25 MG TAB PO SCH (21:00)
[2019-04-15] MEDS ORDERED: SODIUM CHLORIDE 0.9% 1,000 ML IV SCH (21:00)
[2019-04-15 22:53] VITALS: BP 122/79; PULSE 81
[2019-04-16] MEDS ORDERED: PANTOPRAZOLE 40 MG TABLET PO SCH (07:30)
[2019-04-16] MEDS ORDERED: MONTELUKAST 10 MG TAB PO SCH (09:00)
== END 2019-04-15 23:00 | disposition left against medical advice (07) ==
LOC: EC 20:05 → UNDOADMOB 20:53 → 4SSUR 20:53 → 6NMEDSUR 21:13 → 4SSUR 21:13 → 6NMEDSUR 22:56
DX: T82.534A Leakage of infusion catheter, initial encounter (principal); K31.84 Gastroparesis; K21.9 Gastro-esophageal reflux disease without esophagitis; E03.9 Hypothyroidism, unspecified; Z93.4 Other artificial openings of gastrointestinal tract status; Z88.8 Allergy status to other drugs, medicaments and biological substances; Z79.890 Hormone replacement therapy; Z79.899 Other long term (current) drug therapy; Z86.69 Personal history of other diseases of the nervous system and sense organs; Z90.49 Acquired absence of other specified parts of digestive tract; Z98.890 Other specified postprocedural states
CPT/HCPCS: 99283

== ENCOUNTER 2019-04-19 22:41 | Inpatient (IN) | payer BC ==
[2019-04-19] MEDS ORDERED: SODIUM CHLORIDE 0.9% 1,000 ML IV STA (23:00)
[2019-04-19] MEDS ORDERED: ONDANSETRON 4 MG/2 ML VIAL IVP STA (23:00)
[2019-04-19 23:18] LABS: Basophils % (A) 0 %; Eosinophils # (A) 0.2 k/uL (0-0.7); Eosinophils % (A) 2 %; HCT 36.4 % (34.0-46.0); HGB 12.3 gm/dL (11.4-16.0); Lymphocytes # (A) 2.6 k/uL (1.0-4.8); Lymphocytes % (A) 26 %; MCHC 33.9 g/dL (31.0-37.0); MCV 85.7 fL (80.0-100.0); Mean Platelet Volume 7.1; Monocytes # (A) 0.6 k/uL (0-1.0); Monocytes % (A) 6 %; Neutrophils # (A) 6.5 k/uL (1.3-7.7); Neutrophils % (A) 64 %; Platelet Count 385 k/uL (150-450); RBC 4.25 m/uL (3.80-5.40); RDW 13.3 % (11.5-15.5); WBC 10.1 k/uL (3.8-10.6)
[2019-04-19 23:28] LABS: ALT 17 U/L (4-34); AST 15 U/L (14-36); African American GFR (CKD) >90 (>60 ml/min/1.73 sqM); Albumin 3.7 g/dL (3.5-5.0); Alkaline Phosphatase 104 U/L (38-126); Amylase 89 U/L (30-110); Anion Gap 8 mmol/L; Blood Urea Nitrogen 10 mg/dL (7-17); Calcium 9.2 mg/dL (8.4-10.2); Carbon Dioxide 21 mmol/L (22-30); Chloride 114 mmol/L (98-107); Glucose 93 mg/dL (74-99); Non-African American GFR(CKD) >90 (>60 ml/min/1.73 sqM); Potassium 3.6 mmol/L (3.5-5.1); Sodium 143 mmol/L (137-145); Total Bilirubin 0.3 mg/dL (0.2-1.3); Total Protein 6.3 g/dL (6.3-8.2)
[2019-04-19] MEDS ORDERED: PROMETHAZINE INJ 25 MG in SODIUM CHLORIDE 0.9% 50 ML IVPB STA (23:28)
[2019-04-19] MEDS ORDERED: HYDROmorphone 1 MG/ML 1 ML SYRINGE IVP STA (23:29)
--- NOTE | 2019-04-20 00:10 | ED ---
Nausea/Vomiting/Diarrhea HPI - General Chief complaint: Nausea/Vomiting/Diarrhea Stated complaint: Abd Pain Time Seen by Provider: 04/19/19 22:44 Source: patient Mode of arrival: ambulatory Limitations: no limitations - History of Present Illness MD complaint: vomiting, abdominal pain -: hour(s) Description of Vomiting: food contents Associated Abdominal Pain: Yes Location: diffuse Radiation: none Severity: moderate Quality: cramping, aching Consistency: constant Improves with: none Worsens with: none - Related Data Home Medications Medication Instructions Recorded Confirmed Lansoprazole [Prevacid] 30 mg PO BID 02/02/18 03/29/19 Montelukast Chew [Singulair] 10 mg PO DAILY 02/02/18 03/29/19 Topiramate [Trokendi Xr] 50 mg PO HS 07/18/18 03/29/19 Thyroid,Pork [[place] Thyroid] 60 mg PO Q48H 10/06/18 03/29/19 Thyroid,Pork [[place] Thyroid] 90 mg PO Q48H 10/06/18 03/29/19 SUMAtriptan SUCCINATE [Imitrex] 100 mg PO DAILY PRN 10/19/18 03/29/19 Prucalopride Succinate [Motegrity] 2 mg PO DAILY 01/14/19 03/29/19 HYDROmorphone [Dilaudid] 4 mg PO Q8H PRN 03/29/19 03/29/19 Ondansetron HCl [Zofran] 8 mg PO Q8H PRN 03/29/19 03/29/19 Previous Rx's Medication Instructions Recorded Scopolamine 1.5MG/72Hr Patch 1 patch TRANSDERM Q72H #10 patch 07/31/18 [TransDerm Scop] Mupirocin Calcium [Bactroban 2% 1 applic TOPICAL TID 7 Days gm 10/19/18 Cream] Allergies Allergy/AdvReac Type Severity Reaction Status Date / Time metoclopramide [From Reglan] AdvReac Mild jittery Verified 04/19/19 22:42 prochlorperazine AdvReac Mild JITTERY Verified 04/19/19 22:42 [From Compazine] Review of Systems ROS Statement: Those systems with pertinent positive or pertinent negative responses have been documented in the HPI. ROS Other: All systems not noted in ROS Statement are negative. Constitutional: Denies: fever, chills Respiratory: Denies: cough, dyspnea Cardiovascular: Denies: chest pain, palpitations Gastrointestinal: Reports: abdominal pain, nausea, vomiting. Denies: diarrhea, constipation, melena, hematochezia Genitourinary: Denies: dysuria, hematuria Musculoskeletal: Denies: back pain Skin: Denies: rash Neurological: Denies: headache, weakness, numbness Past Medical History Past Medical History: Deep Vein Thrombosis (DVT), GERD/Reflux, Pulmonary Embolus (PE), Thyroid Disorder Additional Past Medical History / Comment(s): Idiopathic gastroparesis, takes little in orally-has J tube for feedings,R pulmonary embolism , pancrea titis, hypothyroid, chronic anemia, sinus problems, migraine, dvt -2018. 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 J tube replaced. mediport insertion Past Anesthesia/Blood Transfusion Reactions: No Reported Reaction Past Psychological History: Depression Smoking Status: Never smoker Past Alcohol Use History: Rare Past Drug Use History: None Reported - Past Family History Father Family Medical History: Hypertension Additional Family Medical History / Comment(s): . Mother Family Medical History: No Reported History Additional Family Medical History / Comment(s): . General Exam Limitations: no limitations General appearance: alert, in no apparent distress Head exam: Present: atraumatic, normocephalic Eye exam: Present: normal appearance. Absent: scleral icterus, conjunctival injection ENT exam: Present: normal oropharynx Respiratory exam: Present: normal lung sounds bilaterally. Absent: respiratory distress, wheezes, rales, rhonchi, stridor Cardiovascular Exam: Present: regular rate, normal rhythm, normal heart sounds. Absent: systolic murmur, diastolic murmur, rubs, gallop GI/Abdominal exam: Present: soft, normal bowel sounds. Absent: distended, tenderness, guarding, rebound, rigid, mass, pulsatile mass, hernia Extremities exam: Present: normal inspection, normal capillary refill. Absent: pedal edema, calf tenderness Back exam: Present: normal inspection. Absent: CVA tenderness (R), CVA tenderness (L) Neurological exam: Present: alert Skin exam: Present: warm, dry, intact, normal color. Absent: rash Course Vital Signs 04/19/19 22:42 Temperature 98.3 F Pulse Rate 80 Respiratory 16 Rate Blood Pressure 117/76 O2 Sat by Pulse 100 Oximetry Medical Decision Making - Lab Data Result diagrams: 04/19/19 23:00 04/19/19 23:00 Lab Results 04/19/19 04/19/19 04/20/19 Range/Units 23:00 23:00 01:01 WBC 10.1 (3.8-10.6) k/uL RBC 4.25 (3.80-5.40) m/uL Hgb 12.3 (11.4-16.0) gm/dL Hct 36.4 (34.0-46.0) % MCV 85.7 (80.0-100.0) fL MCH 29.0 (25.0-35.0) pg MCHC 33.9 (31.0-37.0) g/dL RDW 13.3 (11.5-15.5) % Plt Count 385 (150-450) k/uL Neutrophils % 64 % Lymphocytes % 26 % Monocytes % 6 % Eosinophils % 2 % Basophils % 0 % Neutrophils # 6.5 (1.3-7.7) k/uL Lymphocytes # 2.6 (1.0-4.8) k/uL Monocytes # 0.6 (0-1.0) k/uL Eosinophils # 0.2 (0-0.7) k/uL Basophils # 0.0 (0-0.2) k/uL Sodium 143 (137-145) mmol/L Potassium 3.6 (3.5-5.1) mmol/L Chloride 114 H (98-107) mmol/L Carbon Dioxide 21 L (22-30) mmol/L Anion Gap 8 mmol/L BUN 10 (7-17) mg/dL Creatinine 0.80 (0.52-1.04) mg/dL Est GFR (CKD-EPI)AfAm >90 (>60 ml/min/1.73 sqM) Est GFR (CKD-EPI)NonAf >90 (>60 ml/min/1.73 sqM) Glucose 93 (74-99) mg/dL Calcium 9.2 (8.4-10.2) mg/dL Total Bilirubin 0.3 (0.2-1.3) mg/dL AST 15 (14-36) U/L ALT 17 (4-34) U/L Alkaline Phosphatase 104 (38-126) U/L Total Protein 6.3 (6.3-8.2) g/dL Albumin 3.7 (3.5-5.0) g/dL Amylase 89 (30-110) U/L Lipase 63 (23-300) U/L Urine Color Yellow Urine Appearance Clear (Clear) Urine pH 6.0 (5.0-8.0) Ur Specific [place] 1.034 (1.001-1.035) Urine Protein 1+ H (Negative) Urine Glucose (UA) Negative (Negative) Urine Ketones Negative (Negative) Urine Blood Moderate H (Negative) Urine Nitrite Negative (Negative) Urine Bilirubin Negative (Negative) Urine Urobilinogen <2.0 (<2.0) mg/dL Ur Leukocyte Esterase Negative (Negative) Urine RBC 4 (0-5) /hpf Urine WBC 3 (0-5) /hpf Ur Squamous Epith Cells 1 (0-4) /hpf Urine Mucus Moderate H (None) /hpf Disposition Clinical Impression: Intractable vomiting, Abdominal pain Disposition: ADMITTED IP TO THIS [facility] Condition: Fair Referrals: Wong Adame MD [Primary Care Provider] - 1-2 days
[2019-04-20 01:11] LABS: Appearance,Urine Clear (Clear); Bilirubin,Urine Negative (Negative); Blood,Urine Moderate (Negative); Color,Urine Yellow; Glucose,Urine (UA) Negative (Negative); Ketones,Urine Negative (Negative); Leukocyte Esterase,Urine Negative (Negative); Mucus,Urine Moderate /hpf; Nitrite,Urine Negative (Negative); Protein,Urine 1+ (Negative); RBC,Urine 4 /hpf (0-5); Specific Gravity,Urine 1.034 (1.001-1.035); Squamous Epithelial Cell,Urine 1 /hpf (0-4); Urobilinogen,Urine <2.0 mg/dL (<2.0); WBC,Urine 3 /hpf (0-5)
[2019-04-20] MEDS ORDERED: HYDROmorphone 1 MG/ML 1 ML SYRINGE IVP STA (01:32)
[2019-04-20] MEDS ORDERED: ONDANSETRON 4 MG/2 ML VIAL IVP STA (02:55)
[2019-04-20] MEDS ORDERED: NALOXONE 0.4 MG/ML 1 ML VIAL IV PRN (03:03)
[2019-04-20] MEDS ORDERED: PROMETHAZINE 25 MG TAB PO PRN (03:03)
[2019-04-20] MEDS ORDERED: ACETAMINOPHEN TAB 325 MG TAB PO PRN (03:03)
[2019-04-20] MEDS ORDERED: SUMAtriptan SUCCINATE 50 MG TAB PO PRN (03:07)
[2019-04-20] MEDS: MORPHINE SULFATE 4 MG/ML SYRINGE IV PRN ×4 (04:18→16:01)
[2019-04-20] MEDS: PRUCALOPRIDE SUCCINATE 2 MG PO SCH (07:29)
[2019-04-20] MEDS: PANTOPRAZOLE 40 MG TABLET PO SCH ×2 (07:36→20:56)
[2019-04-20] MEDS: THYROID, PORK 30 MG TAB PO SCH (07:36)
[2019-04-20] MEDS: SCOPOLAMINE 1.5MG/72HR PATCH TRANSDERM SCH (07:36)
[2019-04-20] MEDS: MONTELUKAST 10 MG TAB PO SCH (07:36)
[2019-04-20] MEDS: ONDANSETRON 4 MG/2 ML VIAL IVP PRN ×2 (07:37→15:57)
[2019-04-20] MEDS: PROMETHAZINE INJ 25 MG in SODIUM CHLORIDE 0.9% 50 ML IVPB PRN ×2 (12:01→21:40)
[2019-04-20] MEDS ORDERED: ONDANSETRON 4 MG TAB PO PRN (14:11)
[2019-04-20] MEDS ORDERED: HYDROmorphone 4 MG TABLET PO PRN (14:11)
[2019-04-20] MEDS: HYDROmorphone 0.5 MG/0.5 ML SYRINGE IVP PRN ×2 (19:28→22:43)
--- NOTE | 2019-04-20 20:05 | HP ---
HISTORY AND PHYSICAL CHIEF COMPLAINT: Intractable abdominal pain and vomiting. HISTORY OF PRESENT ILLNESS: This is another admission for this 39-year-old white female with gastroparesis. She was doing fairly well at home until her catheter broke several days ago and she came and eventually had it replaced. Then a day or two ago she started once again to have the severe, intractable crampy abdominal pain with vomiting. She has had no fever, chills, diarrhea, hematemesis, etc. REVIEW OF SYSTEMS: She has had no neurologic problems, shortness of breath, chest pain, cough, urinary complaints, significant abdominal distention, dysuria, renal failure, diabetes, etc. Past medical history, family history, and personal and social histories are all otherwise unremarkable or unchanged. PHYSICAL EXAMINATION: Blood pressure is 119/74 with a pulse of 67, respirations of 20, and she is afebrile. In general she appeared to be in no acute distress. Skin color was normal. Skin was warm and dry. Hydration was good. Head, ears, eyes, nose, mouth and throat were normal. Chest was clear to auscultation and percussion. Cardiac exam demonstrated sinus rhythm and no murmurs or extra sounds. Abdomen was slightly protuberant and soft. There was some macerations and superficial infection around the J-tube site. Extremities were normal. Neurologically she is intact. ADMITTING DIAGNOSES: She is admitted to the hospital with the diagnoses: 1. Intractable abdominal pain. 2. Intractable nausea and vomiting. 3. Gastroparesis. PLAN: 1. Continue with hydration and nutrition with her TPN. 2. Analgesics. 3. Antiemetics. The pattern is that these treatments are continued and eventually after several days, her bowel function returns. She still has a pending appointment in [place] and also goes to [facility] and [facility]. MMODL / IJN: [id number] /
[2019-04-20] MEDS: TOPIRAMATE 25 MG TAB PO SCH (20:56)
[2019-04-21] MEDS: ONDANSETRON 4 MG/2 ML VIAL IVP PRN ×3 (01:47→20:19)
[2019-04-21] MEDS: HYDROmorphone 0.5 MG/0.5 ML SYRINGE IVP PRN ×8 (01:47→21:42)
[2019-04-21] MEDS: PROMETHAZINE INJ 25 MG in SODIUM CHLORIDE 0.9% 50 ML IVPB PRN ×2 (05:05→16:34)
[2019-04-21 05:17] VITALS: RESP 16
[2019-04-21] MEDS: MONTELUKAST 10 MG TAB PO SCH (08:39)
[2019-04-21] MEDS: TOPIRAMATE 25 MG TAB PO SCH ×2 (08:40→20:20)
[2019-04-21] MEDS: THYROID, PORK 30 MG TAB PO SCH (08:40)
[2019-04-21] MEDS: PANTOPRAZOLE 40 MG TABLET PO SCH ×2 (08:40→20:19)
[2019-04-21] MEDS: PRUCALOPRIDE SUCCINATE 2 MG PO SCH (09:38)
--- NOTE | 2019-04-21 11:31 | PN ---
PROGRESS NOTE CHIEF COMPLAINT: Intractable pain, abdominal pain, nausea, vomiting, gastroparesis. HISTORY OF PRESENT ILLNESS: This lady is still nauseated, but the pain is improving with her treatment. She is afebrile. PHYSICAL EXAMINATION: Color is good. Hydration is good. Chest is clear. Cardiac exam is normal. Abdomen is soft, nontender. IMPRESSION: Gastroparesis with intractable nausea, vomiting, and abdominal pain. PLAN: Place her back on her usual dose of Lovenox 80 mg twice a day and continue with current management. MMODL / IJN: [id number] /
[2019-04-21] MEDS: ENOXAPARIN 80 MG/0.8 ML SYRINGE SQ SCH ×2 (12:03→21:42)
[2019-04-22] MEDS: HYDROmorphone 0.5 MG/0.5 ML SYRINGE IVP PRN ×7 (01:08→21:50)
[2019-04-22] MEDS: PROMETHAZINE INJ 25 MG in SODIUM CHLORIDE 0.9% 50 ML IVPB PRN ×2 (02:27→12:23)
[2019-04-22] MEDS: THYROID, PORK 30 MG TAB PO SCH (08:04)
[2019-04-22] MEDS: ENOXAPARIN 80 MG/0.8 ML SYRINGE SQ SCH ×2 (08:05→19:55)
[2019-04-22] MEDS: TOPIRAMATE 25 MG TAB PO SCH ×2 (08:05→19:56)
[2019-04-22] MEDS: PANTOPRAZOLE 40 MG TABLET PO SCH ×2 (08:05→19:55)
[2019-04-22] MEDS: PRUCALOPRIDE SUCCINATE 2 MG PO SCH (08:05)
[2019-04-22] MEDS: MONTELUKAST 10 MG TAB PO SCH (08:05)
[2019-04-22] MEDS: ONDANSETRON 4 MG/2 ML VIAL IVP PRN ×2 (08:11→20:00)
--- NOTE | 2019-04-22 20:04 | PN ---
PROGRESS NOTE DATE OF SERVICE: 04/22/2019 CHIEF COMPLAINT: Gastroparesis with intractable abdominal pain and vomiting. HISTORY OF PRESENT ILLNESS: This lady is doing a bit better. Pain is somewhat less. She has not vomited today. PHYSICAL EXAMINATION: Vital signs are normal. Color is good. Hydration is good. Chest is clear. Cardiac exam is normal. Abdomen is soft, nontender. IMPRESSION: 1. Gastroparesis. 2. Intractable abdominal pain. 3. Intractable nausea and vomiting. PLAN: Continue with tube feedings and IV fluids as well as analgesics and antiemetics. MMODL / IJN: [id number] /
[2019-04-23] MEDS: HYDROmorphone 0.5 MG/0.5 ML SYRINGE IVP PRN ×4 (01:10→11:45)
[2019-04-23] MEDS: PROMETHAZINE INJ 25 MG in SODIUM CHLORIDE 0.9% 50 ML IVPB PRN ×2 (01:25→08:27)
[2019-04-23] MEDS: ONDANSETRON 4 MG/2 ML VIAL IVP PRN ×2 (04:21→11:45)
[2019-04-23 05:02] VITALS: BP 99/55; PULSE 62; TEMP 97.9
[2019-04-23] MEDS: THYROID, PORK 30 MG TAB PO SCH (08:25)
[2019-04-23] MEDS: TOPIRAMATE 25 MG TAB PO SCH (08:25)
[2019-04-23] MEDS: PANTOPRAZOLE 40 MG TABLET PO SCH (08:25)
[2019-04-23] MEDS: ENOXAPARIN 80 MG/0.8 ML SYRINGE SQ SCH (08:25)
[2019-04-23] MEDS: SCOPOLAMINE 1.5MG/72HR PATCH TRANSDERM SCH (08:25)
[2019-04-23] MEDS: MONTELUKAST 10 MG TAB PO SCH (08:25)
[2019-04-23] MEDS: PRUCALOPRIDE SUCCINATE 2 MG PO SCH (08:26)
--- NOTE | 2019-04-23 23:09 | DS ---
DISCHARGE SUMMARY CHIEF COMPLAINT: Intractable abdominal pain, nausea and vomiting. HISTORY OF PRESENT ILLNESS AND PHYSICAL EXAMINATION: Details of this lady's history and physical can be found in the initial workup. LABORATORY STUDIES: While she was in the hospital she had laboratory studies, details of which can be found in the laboratory section of her chart. COURSE IN THE HOSPITAL: After admission she was placed on bedrest and started on intravenous fluids and analgesics as per her usual management schedule. She was also placed on TPN. A jejunostomy tube was used for feedings as well. Pain and nausea began to subside. She was doing well the morning of April 23 and it was felt that she could be discharged. She will go home on her usual activity and medications, and we will see her in the office in several days, if she comes in; she usually does not. FINAL DIAGNOSES: 1. Gastroparesis. 2. Intractable abdominal pain. 3. Intractable nausea and vomiting. OPERATIONS: None. CONSULTATIONS: None. She is improved. COLTEN / FLAKON: [id number] /
== END 2019-04-23 12:38 | disposition home or self-care (01) | DRG 392 ==
LOC: EC 22:41 → 5NMEDONC 04-20 03:03 → OBSVTOIN 04-21 14:17
PROVIDERS: ADMIT Family Medicine; ATTEND Family Medicine
PROC: 3E0336Z Introduction of Nutritional Substance into Peripheral Vein, Percutaneous Approach (ICD-10-PCS; principal; 2019-04-23)
DX: K31.84 Gastroparesis (principal); E03.9 Hypothyroidism, unspecified; F32.9 Major depressive disorder, single episode, unspecified; Z82.49 Family history of ischemic heart disease and other diseases of the circulatory system; Z86.711 Personal history of pulmonary embolism; Z93.4 Other artificial openings of gastrointestinal tract status; Z98.891 History of uterine scar from previous surgery; Z90.49 Acquired absence of other specified parts of digestive tract; Z90.89 Acquired absence of other organs; Z98.890 Other specified postprocedural states
CPT/HCPCS: 36415; 80053; 81001; 82150; 83690; 85025; 96361; 96365; 96366; 96375; 96376; 99285

== ENCOUNTER 2019-05-23 14:58 | Emergency (ER) | payer BC ==
[2019-05-23 15:11] VITALS: TEMP 98
[2019-05-23] MEDS ORDERED: SODIUM CHLORIDE 0.9% 1,000 ML IV STA (15:56)
[2019-05-23] MEDS ORDERED: MORPHINE SULFATE 4 MG/ML SYRINGE IVP STA (15:58)
[2019-05-23] MEDS ORDERED: PROMETHAZINE 25 MG TAB PO STA (15:58)
[2019-05-23] MEDS ORDERED: PROMETHAZINE INJ 25 MG/ML 1 ML VIAL IM STA (15:59)
--- NOTE | 2019-05-23 16:04 | ED ---
General Adult HPI - General Chief complaint: Shortness of Breath Stated complaint: sob, cough Time Seen by Provider: 05/23/19 15:46 Source: patient, RN notes reviewed, old records reviewed Mode of arrival: ambulatory Limitations: no limitations - History of Present Illness Initial comments: Patient is a 39-year-old female presents emergency department today with chief complaint of back pain cough and shortness of breath. Symptoms started over the past 24 hours. Patient did have to stop her daily Lovenox for prepping for a colonoscopy this week. She is now resumed back on this. Patient states that she has pain between the shoulder blades. Patient reports that she's had history of DVTs and PEs in the past. Patient states that she's had some chronic nausea but does have a history of gastroparesis. - Related Data Home Medications Medication Instructions Recorded Confirmed Lansoprazole [Prevacid] 30 mg PO BID 02/02/18 04/20/19 Montelukast Chew [Singulair] 10 mg PO DAILY 02/02/18 04/20/19 Topiramate [Trokendi Xr] 50 mg PO HS 07/18/18 04/20/19 Thyroid,Pork [[place] Thyroid] 60 mg PO Q48H 10/06/18 04/20/19 Thyroid,Pork [[place] Thyroid] 90 mg PO Q48H 10/06/18 04/20/19 SUMAtriptan SUCCINATE [Imitrex] 100 mg PO DAILY PRN 10/19/18 04/20/19 Prucalopride Succinate [Motegrity] 2 mg PO DAILY 01/14/19 04/20/19 HYDROmorphone [Dilaudid] 4 mg PO Q8H PRN 03/29/19 04/20/19 Ondansetron HCl [Zofran] 8 mg PO Q8H PRN 03/29/19 04/20/19 oxyCODONE HCL [oxyCODONE HCL (IR)] 10 mg PO Q8H PRN 04/20/19 04/20/19 Previous Rx's Medication Instructions Recorded Scopolamine 1.5MG/72Hr Patch 1 patch TRANSDERM Q72H #10 patch 07/31/18 [TransDerm Scop] Allergies Allergy/AdvReac Type Severity Reaction Status Date / Time metoclopramide [From Reglan] AdvReac Mild jittery Verified 05/23/19 15:12 prochlorperazine AdvReac Mild JITTERY Verified 05/23/19 15:12 [From Compazine] Review of Systems ROS Statement: Those systems with pertinent positive or pertinent negative responses have been documented in the HPI. ROS Other: All systems not noted in ROS Statement are negative. Past Medical History Past Medical History: Deep Vein Thrombosis (DVT), GERD/Reflux, Pulmonary Embolus (PE), Thyroid Disorder Additional Past Medical History / Comment(s): Idiopathic gastroparesis, takes little in orally-has J tube for feedings,R pulmonary embolism , pancreatitis, hypothyroid, chronic anemia, sinus problems, migraine, dvt -2018. 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 J tube replaced. mediport insertion Past Anesthesia/Blood Transfusion Reactions: No Reported Reaction Past Psychological History: Depression Smoking Status: Never smoker Past Alcohol Use History: Rare Past Drug Use History: None Reported - Past Family History Father Family Medical History: Hypertension Additional Family Medical History / Comment(s): . Mother Family Medical History: No Reported History Additional Family Medical History / Comment(s): . General Exam - General Exam Comments Initial Comments: 39-year-old female. Alert and oriented 3. No distress. Limitations: no limitations General appearance: alert, in no apparent distress Head exam: Present: atraumatic Eye exam: Present: normal appearance, PERRL, EOMI. Absent: scleral icterus, conjunctival injection, periorbital swelling ENT exam: Present: normal exam, mucous membranes moist Neck exam: Present: normal inspection. Absent: tenderness, meningismus, lymphadenopathy Respiratory exam: Present: normal lung sounds bilaterally. Absent: respiratory distress, wheezes, rales, rhonchi, stridor Cardiovascular Exam: Present: regular rate, normal rhythm, normal heart sounds. Absent: systolic murmur, diastolic murmur, rubs, gallop, clicks GI/Abdominal exam: Present: soft, normal bowel sounds. Absent: distended, tenderness, guarding, rebound, rigid Extremities exam: Present: normal inspection, full ROM, normal capillary refill. Absent: tenderness, pedal edema, joint swelling, calf tenderness Back exam: Present: normal inspection Neurological exam: Present: alert, oriented X3, CN II-XII intact Psychiatric exam: Present: normal affect, normal mood Course Vital Signs 05/23/19 05/23/19 05/23/19 15:08 17:00 18:00 Temperature 98.0 F Pulse Rate 96 67 71 Respiratory 20 18 18 Rate Blood Pressure 125/83 124/79 132/76 O2 Sat by Pulse 100 100 100 Oximetry 05/23/19 19:00 Temperature Pulse Rate 95 Respiratory 18 Rate Blood Pressure 132/74 O2 Sat by Pulse 100 Oximetry EKG Findings - EKG Comments: EKG Findings:: EKG shows normal sinus rhythm with sinus arrhythmia, normal EKG. Ventricular rate of 69 bpm. Verbal 1:30 milliseconds. QRS duration 88 ms. QT QTc is 374/400 ms. Medical Decision Making - Medical Decision Making 39 year old female with mid back pain and shortness of breath for one day, patient is concerned for PE due to previous history and having to stop blood thinner earlier this week for a procedure. Patietn labs and EKG are unreamrkable. PAtient vitals are stable, lungs are clear and no wheezing. Patient Dimer was negative,due to history CT was still completed. This is negative for PE and no other acute process. Patient labs are unremarkable. PAtient advised to follow up with PCP and advised to return if symptoms worsen. - Lab Data Result diagrams: 05/23/19 16:17 05/23/19 16:17 Lab Results 05/23/19 05/23/19 05/23/19 Range/Units 16:17 16:17 16:17 WBC 12.6 H (3.8-10.6) k/uL RBC 4.82 (3.80-5.40) m/uL Hgb 13.6 (11.4-16.0) gm/dL Hct 40.0 (34.0-46.0) % MCV 83.1 (80.0-100.0) fL MCH 28.2 (25.0-35.0) pg MCHC 33.9 (31.0-37.0) g/dL RDW 12.8 (11.5-15.5) % Plt Count 410 (150-450) k/uL Neutrophils % 67 % Lymphocytes % 26 % Monocytes % 4 % Eosinophils % 1 % Basophils % 0 % Neutrophils # 8.4 H (1.3-7.7) k/uL Lymphocytes # 3.3 (1.0-4.8) k/uL Monocytes # 0.5 (0-1.0) k/uL Eosinophils # 0.1 (0-0.7) k/uL Basophils # 0.0 (0-0.2) k/uL PT 10.2 (9.0-12.0) sec INR 1.0 (<1.2) APTT 28.8 (22.0-30.0) sec D-Dimer <0.17 (<0.60) mg/L FEU Sodium 137 (137-145) mmol/L Potassium 4.1 (3.5-5.1) mmol/L Chloride 108 H (98-107) mmol/L Carbon Dioxide 18 L (22-30) mmol/L Anion Gap 11 mmol/L BUN 13 (7-17) mg/dL Creatinine 0.79 (0.52-1.04) mg/dL Est GFR (CKD-EPI)AfAm >90 (>60 ml/min/1.73 sqM) Est GFR (CKD-EPI)NonAf >90 (>60 ml/min/1.73 sqM) Glucose 82 (74-99) mg/dL Plasma Lactic Acid Frank (0.7-2.0) mmol/L Calcium 9.9 (8.4-10.2) mg/dL Total Bilirubin 0.3 (0.2-1.3) mg/dL AST 15 (14-36) U/L ALT 14 (4-34) U/L Alkaline Phosphatase 96 (38-126) U/L Troponin I (0.000-0.034) ng/mL NT-Pro-B Natriuret Pep pg/mL Total Protein 6.7 (6.3-8.2) g/dL Albumin 4.1 (3.5-5.0) g/dL 05/23/19 05/23/19 05/23/19 Range/Units 16:17 16:17 16:17 WBC (3.8-10.6) k/uL RBC (3.80-5.40) m/uL Hgb (11.4-16.0) gm/dL Hct (34.0-46.0) % MCV (80.0-100.0) fL MCH (25.0-35.0) pg MCHC (31.0-37.0) g/dL RDW (11.5-15.5) % Plt Count (150-450) k/uL Neutrophils % % Lymphocytes % % Monocytes % % Eosinophils % % Basophils % % Neutrophils # (1.3-7.7) k/uL Lymphocytes # (1.0-4.8) k/uL Monocytes # (0-1.0) k/uL Eosinophils # (0-0.7) k/uL Basophils # (0-0.2) k/uL PT (9.0-12.0) sec INR (<1.2) APTT (22.0-30.0) sec D-Dimer (<0.60) mg/L FEU Sodium (137-145) mmol/L Potassium (3.5-5.1) mmol/L Chloride (98-107) mmol/L Carbon Dioxide (22-30) mmol/L Anion Gap mmol/L BUN (7-17) mg/dL Creatinine (0.52-1.04) mg/dL Est GFR (CKD-EPI)AfAm (>60 ml/min/1.73 sqM) Est GFR (CKD-EPI)NonAf (>60 ml/min/1.73 sqM) Glucose (74-99) mg/dL Plasma Lactic Acid Frank 1.1 (0.7-2.0) mmol/L Calcium (8.4-10.2) mg/dL Total Bilirubin (0.2-1.3) mg/dL AST (14-36) U/L ALT (4-34) U/L Alkaline Phosphatase (38-126) U/L Troponin I <0.012 (0.000-0.034) ng/mL NT-Pro-B Natriuret Pep 56 pg/mL Total Protein (6.3-8.2) g/dL Albumin (3.5-5.0) g/dL - Radiology Data Radiology results: report reviewed Normal chest. No changes. Disposition Clinical Impression: Shortness of breath Disposition: HOME SELF-CARE Condition: Good Instructions (If sedation given, give patient instructions): Dyspnea (ED) Additional Instructions: Patient advised to follow-up with primary care doctor. Patient advised to return to emergency department if any alarming signs or symptoms occur. Is patient prescribed a controlled substance at d/c from ED?: No Referrals: Wong Adame MD [Primary Care Provider] - 1-2 days Time of Disposition: 19:20
[2019-05-23 16:42] LABS: Basophils % (A) 0 %; Eosinophils # (A) 0.1 k/uL (0-0.7); Eosinophils % (A) 1 %; HGB 13.6 gm/dL (11.4-16.0); Lymphocytes # (A) 3.3 k/uL (1.0-4.8); Lymphocytes % (A) 26 %; MCH 28.2 pg (25.0-35.0); MCHC 33.9 g/dL (31.0-37.0); MCV 83.1 fL (80.0-100.0); Mean Platelet Volume 6.9; Monocytes # (A) 0.5 k/uL (0-1.0); Monocytes % (A) 4 %; Neutrophils # (A) 8.4 k/uL (1.3-7.7); Neutrophils % (A) 67 %; Platelet Count 410 k/uL (150-450); RBC 4.82 m/uL (3.80-5.40); RDW 12.8 % (11.5-15.5); WBC 12.6 k/uL (3.8-10.6)
--- NOTE | 2019-05-23 16:45 | XR ---
EXAMINATION TYPE: XR chest 2V DATE OF EXAM: 05/23/2019 COMPARISON: 04/03/2019 HISTORY: Catheter placement TECHNIQUE: FINDINGS: Heart and mediastinum are normal. Lungs are clear. Diaphragm is normal. Bony thorax appears normal. There is left-sided central venous catheter with the tip in the superior vena cava. IMPRESSION: Normal chest. No change.
[2019-05-23 16:55] LABS: D-Dimer <0.17 mg/L FEU (<0.60); Partial Thromboplastin Time 28.8 sec (22.0-30.0); Prothrombin Time 10.2 sec (9.0-12.0)
[2019-05-23 16:57] LABS: ALT 14 U/L (4-34); AST 15 U/L (14-36); African American GFR (CKD) >90 (>60 ml/min/1.73 sqM); Albumin 4.1 g/dL (3.5-5.0); Alkaline Phosphatase 96 U/L (38-126); Anion Gap 11 mmol/L; Blood Urea Nitrogen 13 mg/dL (7-17); Calcium 9.9 mg/dL (8.4-10.2); Carbon Dioxide 18 mmol/L (22-30); Chloride 108 mmol/L (98-107); Glucose 82 mg/dL (74-99); Non-African American GFR(CKD) >90 (>60 ml/min/1.73 sqM); Potassium 4.1 mmol/L (3.5-5.1); Sodium 137 mmol/L (137-145); Total Bilirubin 0.3 mg/dL (0.2-1.3); Total Protein 6.7 g/dL (6.3-8.2)
[2019-05-23 17:09] VITALS: RESP 18
[2019-05-23] MEDS ORDERED: SODIUM CHLORIDE 0.9% 1,000 ML IV SCH (17:45)
[2019-05-23] MEDS ORDERED: LORazepam 2 MG/ML INJ IV STA (18:34)
[2019-05-23] MEDS ORDERED: diphenhydrAMINE 50 MG/ML 1 ML VIAL IVP STA (18:34)
--- NOTE | 2019-05-23 18:43 | CT ---
EXAMINATION TYPE: CT chest angio for PE DATE OF EXAM: 05/23/2019 COMPARISON: 03/29/2019 HISTORY: Shortness of breath and cough. CT DLP: 305.8 mGycm Automated exposure control for dose reduction was used. CONTRAST: Performed with IV Contrast, patient injected with 72ml mL of Isovue 370. There are 3-D post processed images. The lungs are clear of infiltrate. There is no evidence of a pulmonary mass. There is no pleural effu aileen. There is no pericardial effusion. There is minimal atelectasis right posterior lung base. Heart size is normal. Thoracic aorta is intact without evidence of aneurysm or dissection. There is normal contrast opacifi cation of the pulmonary arteries. There are no filling defects. The thoracic spine is intact. IMPRESSION: Negative exam. No evidence of pulmonary embolism. No adverse change.
[2019-05-23 19:10] VITALS: BP 132/74; PULSE 95
== END 2019-05-23 19:28 | disposition home or self-care (01) ==
LOC: EC 14:58
DX: R06.02 Shortness of breath (principal); R05 Cough; M54.9 Dorsalgia, unspecified; R11.0 Nausea; K21.9 Gastro-esophageal reflux disease without esophagitis; K31.84 Gastroparesis; E03.9 Hypothyroidism, unspecified; Z88.8 Allergy status to other drugs, medicaments and biological substances; Z79.890 Hormone replacement therapy; Z79.899 Other long term (current) drug therapy; Z93.1 Gastrostomy status; Z86.69 Personal history of other diseases of the nervous system and sense organs; Z86.711 Personal history of pulmonary embolism; Z86.718 Personal history of other venous thrombosis and embolism
CPT/HCPCS: 36415; 93005; 85379; 83880; 80053; 83605; 84484; 85025; 85610; 85730; 71046; 71275; 99285; 96374; 96375 ×2; 96361 ×2; 96372; J2060; J2270; J1200; J2550; Q9967

== ENCOUNTER 2019-05-24 18:59 | Inpatient (IN) | payer BC ==
--- NOTE | 2019-05-24 20:20 | ED ---
Nausea/Vomiting/Diarrhea HPI - General Chief complaint: Nausea/Vomiting/Diarrhea Stated complaint: Vomiting Time Seen by Provider: 05/24/19 19:29 Source: patient, RN notes reviewed, old records reviewed Mode of arrival: ambulatory Limitations: no limitations - History of Present Illness Initial comments: This is a 39-year-old female presents today for evaluation of persistent nausea vomiting and abdominal pain. Patient is well-known to our hospital was seen yesterday with a family PE or bronchitis per patient has not been feeling good since the hospital unable to keep down any food or fluids. Denying any fevers. No other complaints - Related Data Home Medications Medication Instructions Recorded Confirmed Lansoprazole [Prevacid] 30 mg PO BID 02/02/18 04/20/19 Montelukast Chew [Singulair] 10 mg PO DAILY 02/02/18 04/20/19 Topiramate [Trokendi Xr] 50 mg PO HS 07/18/18 04/20/19 Thyroid,Pork [Peridot Thyroid] 60 mg PO Q48H 10/06/18 04/20/19 Thyroid,Pork [Peridot Thyroid] 90 mg PO Q48H 10/06/18 04/20/19 SUMAtriptan SUCCINATE [Imitrex] 100 mg PO DAILY PRN 10/19/18 04/20/19 Prucalopride Succinate [Motegrity] 2 mg PO DAILY 01/14/19 04/20/19 HYDROmorphone [Dilaudid] 4 mg PO Q8H PRN 03/29/19 04/20/19 Ondansetron HCl [Zofran] 8 mg PO Q8H PRN 03/29/19 04/20/19 oxyCODONE HCL [oxyCODONE HCL (IR)] 10 mg PO Q8H PRN 04/20/19 04/20/19 Previous Rx's Medication Instructions Recorded Scopolamine 1.5MG/72Hr Patch 1 patch TRANSDERM Q72H #10 patch 07/31/18 [TransDerm Scop] Allergies Allergy/AdvReac Type Severity Reaction Status Date / Time metoclopramide [From Reglan] AdvReac Mild jittery Verified 05/24/19 19:24 prochlorperazine AdvReac Mild JITTERY Verified 05/24/19 19:24 [From Compazine] Review of Systems ROS Statement: Those systems with pertinent positive or pertinent negative responses have been documented in the HPI. ROS Other: All systems not noted in ROS Statement are negative. Past Medical History Past Medical History: Deep Vein Thrombosis (DVT), GERD/Reflux, Pulmonary Embolus (PE), Thyroid Disorder Additional Past Medical History / Comment(s): Idiopathic gastroparesis, takes little in orally-has J tube for feedings,R pulmonary embolism , pancreatitis, hypothyroid, chronic anemia, sinus problems, migraine, dvt -2018. 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 J tube replaced. mediport insertion Past Anesthesia/Blood Transfusion Reactions: No Reported Reaction Past Psychological History: Depression Smoking Status: Never smoker Past Alcohol Use History: Rare Past Drug Use History: None Reported - Past Family History Father Family Medical History: Hypertension Additional Family Medical History / Comment(s): . Mother Family Medical History: No Reported History Additional Family Medical History / Comment(s): . General Exam Limitations: no limitations General appearance: alert, in no apparent distress Head exam: Present: atraumatic, normocephalic, normal inspection Eye exam: Present: normal appearance, PERRL, EOMI. Absent: scleral icterus, conjunctival injection, periorbital swelling ENT exam: Present: normal exam, mucous membranes moist Neck exam: Present: normal inspection. Absent: tenderness, meningismus, ly mphadenopathy Respiratory exam: Present: normal lung sounds bilaterally. Absent: respiratory distress, wheezes, rales, rhonchi, stridor Cardiovascular Exam: Present: regular rate, normal rhythm, normal heart sounds. Absent: systolic murmur, diastolic murmur, rubs, gallop, clicks GI/Abdominal exam: Present: soft, normal bowel sounds. Absent: distended, tenderness, guarding, rebound, rigid Extremities exam: Present: normal inspection, full ROM, normal capillary refill. Absent: tenderness, pedal edema, joint swelling, calf tenderness Back exam: Present: normal inspection Neurological exam: Present: alert, oriented X3, CN II-XII intact Psychiatric exam: Present: normal affect, normal mood Skin exam: Present: warm, dry, intact, normal color. Absent: rash Course Vital Signs 05/24/19 05/24/19 19:20 20:58 Temperature 98.7 F Pulse Rate 96 68 Respiratory 18 20 Rate Blood Pressure 114/59 119/82 O2 Sat by Pulse 100 100 Oximetry - Reevaluation(s) Reevaluation #1: 05/24/19 21:30 medical record is reviewed and prior ER is evaluated Reevaluation #2: 05/24/19 21:31 Symptoms mildly improved here in the ER - Consultations Consultation #1: Focused Dr. Adame who agrees to admit Medical Decision Making - Medical Decision Making 39 female to the ER for evaluation, patient presents today for evaluation regards to persistent nausea vomiting diarrhea admitted - Lab Data Result diagrams: 05/24/19 20:20 05/24/19 20:20 Lab Results 05/24/19 05/24/19 05/24/19 Range/Units 20:20 20:20 20:20 WBC 10.9 H (3.8-10.6) k/uL RBC 4.89 (3.80-5.40) m/uL Hgb 13.6 (11.4-16.0) gm/dL Hct 41.0 (34.0-46.0) % MCV 83.8 (80.0-100.0) fL MCH 27.8 (25.0-35.0) pg MCHC 33.1 (31.0-37.0) g/dL RDW 12.7 (11.5-15.5) % Plt Count 413 (150-450) k/uL Neutrophils % 56 % Lymphocytes % 34 % Monocytes % 6 % Eosinophils % 2 % Basophils % 0 % Neutrophils # 6.1 (1.3-7.7) k/uL Lymphocytes # 3.7 (1.0-4.8) k/uL Monocytes # 0.6 (0-1.0) k/uL Eosinophils # 0.2 (0-0.7) k/uL Basophils # 0.1 (0-0.2) k/uL Sodium 138 (137-145) mmol/L Potassium 4.1 (3.5-5.1) mmol/L Chloride 109 H (98-107) mmol/L Carbon Dioxide 20 L (22-30) mmol/L Anion Gap 9 mmol/L BUN 15 (7-17) mg/dL Creatinine 0.76 (0.52-1.04) mg/dL Est GFR (CKD-EPI)AfAm >90 (>60 ml/min/1.73 sqM) Est GFR (CKD-EPI)NonAf >90 (>60 ml/min/1.73 sqM) Glucose 87 (74-99) mg/dL Plasma Lactic Acid Frank 0.7 (0.7-2.0) mmol/L Calcium 9.3 (8.4-10.2) mg/dL Phosphorus 4.2 (2.5-4.5) mg/dL Magnesium 2.2 (1.6-2.3) mg/dL Total Bilirubin 0.2 (0.2-1.3) mg/dL AST 15 (14-36) U/L ALT 12 (4-34) U/L Alkaline Phosphatase 87 (38-126) U/L Creatine Kinase 22 L (30-135) U/L Total Protein 6.7 (6.3-8.2) g/dL Albumin 4.1 (3.5-5.0) g/dL Lipase 63 (23-300) U/L - EKG Data -: EKG Interpreted by Me (EKG shows sinus a rate of 66, VA 150, QRS 78, QTC 436) Disposition Clinical Impression: Gastroparesis, Dehydration, Intractable nausea and vomiting Disposition: ADMITTED IP TO THIS HOSP Condition: Fair Is patient prescribed a controlled substance at d/c from ED?: No Referrals: Wong Adame MD [Primary Care Provider] - 1-2 days
[2019-05-24] MEDS ORDERED: SODIUM CHLORIDE 0.9% 1,000 ML IV STA ×2 (20:21)
[2019-05-24] MEDS ORDERED: PANTOPRAZOLE 40 MG/10 ML VIAL IVP STA (20:21)
[2019-05-24] MEDS ORDERED: SODIUM CHLORIDE 0.9% 500 ML 500 ML IV STA (20:21)
[2019-05-24] MEDS ORDERED: ONDANSETRON 4 MG/2 ML VIAL IVP STA (20:21)
[2019-05-24] MEDS ORDERED: HYDROmorphone 1 MG/ML 1 ML SYRINGE IVP STA (20:21)
[2019-05-24 21:09] LABS: ALT 12 U/L (4-34); AST 15 U/L (14-36); African American GFR (CKD) >90 (>60 ml/min/1.73 sqM); Albumin 4.1 g/dL (3.5-5.0); Alkaline Phosphatase 87 U/L (38-126); Anion Gap 9 mmol/L; Blood Urea Nitrogen 15 mg/dL (7-17); Calcium 9.3 mg/dL (8.4-10.2); Carbon Dioxide 20 mmol/L (22-30); Chloride 109 mmol/L (98-107); Creatine Kinase 22 U/L (30-135); Glucose 87 mg/dL (74-99); Magnesium 2.2 mg/dL (1.6-2.3); Non-African American GFR(CKD) >90 (>60 ml/min/1.73 sqM); Phosphorus 4.2 mg/dL (2.5-4.5); Potassium 4.1 mmol/L (3.5-5.1); Sodium 138 mmol/L (137-145); Total Bilirubin 0.2 mg/dL (0.2-1.3); Total Protein 6.7 g/dL (6.3-8.2)
[2019-05-24 21:20] LABS: Basophils # (A) 0.1 k/uL (0-0.2); Basophils % (A) 0 %; Eosinophils # (A) 0.2 k/uL (0-0.7); Eosinophils % (A) 2 %; HGB 13.6 gm/dL (11.4-16.0); Lymphocytes # (A) 3.7 k/uL (1.0-4.8); Lymphocytes % (A) 34 %; MCH 27.8 pg (25.0-35.0); MCHC 33.1 g/dL (31.0-37.0); MCV 83.8 fL (80.0-100.0); Monocytes # (A) 0.6 k/uL (0-1.0); Monocytes % (A) 6 %; Neutrophils # (A) 6.1 k/uL (1.3-7.7); Neutrophils % (A) 56 %; Platelet Count 413 k/uL (150-450); RBC 4.89 m/uL (3.80-5.40); RDW 12.7 % (11.5-15.5); WBC 10.9 k/uL (3.8-10.6)
[2019-05-24 21:48] LABS: Appearance,Urine Clear (Clear); Bilirubin,Urine Negative (Negative); Blood,Urine Negative (Negative); Color,Urine Yellow; Glucose,Urine (UA) Negative (Negative); Ketones,Urine Negative (Negative); Leukocyte Esterase,Urine Negative (Negative); Nitrite,Urine Negative (Negative); PH, Urine 5.5 (5.0-8.0); Protein,Urine Negative (Negative); Specific Gravity,Urine 1.021 (1.001-1.035); Urobilinogen,Urine <2.0 mg/dL (<2.0)
[2019-05-25] MEDS: HYDROmorphone 1 MG/ML 1 ML SYRINGE IVP PRN ×6 (00:14→20:49)
[2019-05-25] MEDS: ONDANSETRON 4 MG/2 ML VIAL IVP PRN ×4 (03:48→23:02)
[2019-05-25] MEDS ORDERED: SUMAtriptan SUCCINATE 50 MG TAB PO PRN (08:49)
[2019-05-25] MEDS: PANTOPRAZOLE 40 MG/10 ML VIAL IVP SCH (08:55)
--- NOTE | 2019-05-25 11:22 | HP ---
HISTORY AND PHYSICAL CHIEF COMPLAINT: Intractable abdominal pain, vomiting. HISTORY OF PRESENT ILLNESS: This is another of many admissions for this 39-year-old white female with gastroparesis who has been in and out of the hospital all the time. She has been receiving home care and been on TPN in addition to the jejunostomy feedings at home. She just was at the [facility] for lower GI endoscopy last week, reports of which were normal. She treats both at the [facility] and [place]. She has had no hematemesis, fever, chills, etc. REVIEW OF SYSTEMS: She has had no other complaints. She is eliminating normally. Past medical history, family history, personal and social histories are unremarkable and unchanged otherwise. She is ALLERGIC to COMPAZINE and REGLAN. HOME MEDICATIONS: She is on OxyContin 10 mg q.6 p.r.n., Prucalopride, succinate 1 mg twice a day, Imitrex 100 mg p.r.n., enoxaparin 80 mg twice a day, Trokendi, Zelnorm, , and Linzess. She is on [place] Thyroid 90 mg every 48 hours and 60 mg every other day. She uses a transderm patch q. 72 hours p.r.n., Zofran 8 mg q.8 p.r.n., Singulair 10 mg once a day, and Prevacid 30 mg once a day. The remainder of her history is unremarkable and unchanged. She does not smoke. PHYSICAL EXAMINATION: Blood pressure 120/84, pulse 104 and regular, respirations 18, temperature 99. In general, she appeared to be well developed, well nourished, and somewhat uncomfortable. Skin color is normal, skin is warm and dry. Lymph nodes are not enlarged. Head, ears, eyes, nose, mouth, and throat were normal and neck veins are not distended. Thyroid is not enlarged. Chest is clear to auscultation and percussion. Cardiac exam demonstrates normal sinus rhythm and no murmurs or extra sounds. Abdomen is soft and nontender without masses. She has a jejunostomy tube in place. She also has a TPN line in place. Extremities are normal. Neurologically, she is intact. She is admitted to the hospital with diagnoses: 1. Gastroparesis. 2. Intractable nausea and vomiting. 3. Intractable abdominal pain. 4. Hypothyroidism. PLAN: 1. Bed rest. 2. IV fluids. 3. Attempt once again to control her pain and vomiting. COLTEN / FLAKON: [id number] /
[2019-05-25] MEDS ORDERED: ONDANSETRON 4 MG TAB PO PRN (11:53)
[2019-05-25] MEDS: [UNRECOGNIZED DRUG - OTHER] PO SCH ×2 (12:32→20:59)
[2019-05-25] MEDS: THYROID, PORK 30 MG TAB PO SCH (12:33)
[2019-05-25] MEDS: MONTELUKAST 10 MG TAB PO SCH (12:33)
[2019-05-25] MEDS: SCOPOLAMINE 1.5MG/72HR PATCH TRANSDERM SCH (12:33)
[2019-05-25] MEDS: PANTOPRAZOLE 40 MG TABLET PO SCH (16:37)
--- NOTE | 2019-05-25 19:40 | PN ---
PROGRESS NOTE CHIEF COMPLAINT: Gastroparesis. HISTORY OF PRESENT ILLNESS: This lady is still having quite a bit of discomfort. She is still nauseated and has vomiting. PHYSICAL EXAMINATION: Her vital signs are normal. Color is good. Chest is clear. Cardiac exam is normal. Abdomen is soft with jejunostomy tube and bowel sounds are present. IMPRESSION: Gastroparesis with intractable nausea, vomiting and pain. PLAN: Continue program and resume all of her home medications. MMODL / IJN: [id number] /
[2019-05-25] MEDS: TROKENDI XR PO SCH (20:58)
[2019-05-25] MEDS ORDERED: TOPIRAMATE 25 MG TAB PO SCH (21:00)
[2019-05-26] MEDS: HYDROmorphone 1 MG/ML 1 ML SYRINGE IVP PRN ×6 (00:57→22:13)
[2019-05-26] MEDS: ONDANSETRON 4 MG/2 ML VIAL IVP PRN ×3 (05:27→22:20)
[2019-05-26] MEDS: [UNRECOGNIZED DRUG - OTHER] PO SCH ×2 (08:59→20:20)
[2019-05-26] MEDS: PANTOPRAZOLE 40 MG TABLET PO SCH ×2 (09:07→18:11)
[2019-05-26] MEDS: MONTELUKAST 10 MG TAB PO SCH (09:07)
[2019-05-26] MEDS: THYROID, PORK 30 MG TAB PO SCH (09:07)
[2019-05-26] MEDS: ENOXAPARIN 80 MG/0.8 ML SYRINGE SQ SCH ×2 (11:45→20:19)
[2019-05-26] MEDS: PROMETHAZINE INJ 6.25 MG in SODIUM CHLORIDE 0.9% 50 ML IVPB PRN (14:57)
--- NOTE | 2019-05-26 15:22 | PN ---
PROGRESS NOTE CHIEF COMPLAINT: Gastroparesis with intractable pain and vomiting. HISTORY OF PRESENT ILLNESS: This lady is doing just about the same. Yesterday a verbal order was given to the nurse to resume her Lovenox, Benadryl and Phenergan which were entered into the chart. PHYSICAL EXAMINATION: Her color is good. Chest is clear. Cardiac exam is normal. Abdomen is soft, nontender. Jejunostomy site looks good. IMPRESSION: Intractable abdominal pain and vomiting secondary to gastroparesis. PLAN: Resume Benadryl, Phenergan and Lovenox and continue with current program. Once she stops vomiting, she would be able to go home. MMODL / IJN: [id number] /
[2019-05-26] MEDS: diphenhydrAMINE 50 MG/ML 1 ML VIAL IVP PRN (18:19)
[2019-05-26] MEDS: TROKENDI XR PO SCH (20:20)
[2019-05-27] MEDS: HYDROmorphone 1 MG/ML 1 ML SYRINGE IVP PRN ×6 (02:00→21:58)
[2019-05-27] MEDS: diphenhydrAMINE 50 MG/ML 1 ML VIAL IVP PRN ×3 (02:07→18:04)
[2019-05-27] MEDS: ONDANSETRON 4 MG/2 ML VIAL IVP PRN ×2 (05:35→14:07)
[2019-05-27] MEDS: [UNRECOGNIZED DRUG - OTHER] PO SCH ×2 (09:49→20:42)
[2019-05-27] MEDS: THYROID, PORK 30 MG TAB PO SCH (09:54)
[2019-05-27] MEDS: ENOXAPARIN 80 MG/0.8 ML SYRINGE SQ SCH ×2 (09:55→20:42)
[2019-05-27] MEDS: MONTELUKAST 10 MG TAB PO SCH (09:55)
[2019-05-27] MEDS: PANTOPRAZOLE 40 MG TABLET PO SCH ×2 (09:55→18:00)
[2019-05-27] MEDS: PROMETHAZINE INJ 6.25 MG in SODIUM CHLORIDE 0.9% 50 ML IVPB PRN ×2 (12:59→22:19)
[2019-05-27 14:08] LABS: Basophils % (A) 0 %; Eosinophils # (A) 0.1 k/uL (0-0.7); Eosinophils % (A) 2 %; HCT 41.3 % (34.0-46.0); HGB 13.7 gm/dL (11.4-16.0); Lymphocytes % (A) 34 %; MCHC 33.3 g/dL (31.0-37.0); MCV 84.2 fL (80.0-100.0); Mean Platelet Volume 6.8; Monocytes # (A) 0.3 k/uL (0-1.0); Monocytes % (A) 5 %; Neutrophils # (A) 3.4 k/uL (1.3-7.7); Neutrophils % (A) 57 %; Platelet Count 325 k/uL (150-450); RBC 4.91 m/uL (3.80-5.40); RDW 12.7 % (11.5-15.5)
[2019-05-27 14:18] LABS: Albumin 4.1 g/dL (3.5-5.0); Calcium 9.2 mg/dL (8.4-10.2); Potassium 3.6 mmol/L (3.5-5.1); Total Bilirubin 0.4 mg/dL (0.2-1.3); Total Protein 6.8 g/dL (6.3-8.2)
[2019-05-27] MEDS: TROKENDI XR PO SCH (20:43)
--- NOTE | 2019-05-27 22:34 | PN ---
PROGRESS NOTE CHIEF COMPLAINT: Intractable nausea and vomiting and pain with gastroparesis. HISTORY OF PRESENT ILLNESS: This lady seems to be just about the same. She is still having intermittent episodes of pain with associated vomiting. PHYSICAL EXAMINATION: Her hydration is good. Chest is clear. Cardiac exam is normal. IMPRESSION: 1. Gastroparesis. 2. Intractable abdominal pain. 3. Intractable vomiting. PLAN: Continue with her treatment until her vomiting has been reduced enough that she can be discharged back home again. MMISABELL / FLAKON: [id number] /
[2019-05-28] MEDS: HYDROmorphone 1 MG/ML 1 ML SYRINGE IVP PRN ×5 (02:22→19:44)
[2019-05-28] MEDS: diphenhydrAMINE 50 MG/ML 1 ML VIAL IVP PRN ×3 (02:24→19:43)
[2019-05-28] MEDS: ONDANSETRON 4 MG/2 ML VIAL IVP PRN ×2 (05:03→14:58)
[2019-05-28] MEDS: SCOPOLAMINE 1.5MG/72HR PATCH TRANSDERM SCH (08:08)
[2019-05-28] MEDS: MONTELUKAST 10 MG TAB PO SCH (08:08)
[2019-05-28] MEDS: PANTOPRAZOLE 40 MG TABLET PO SCH ×2 (08:08→17:44)
[2019-05-28] MEDS: ENOXAPARIN 80 MG/0.8 ML SYRINGE SQ SCH ×2 (08:08→19:44)
[2019-05-28] MEDS: THYROID, PORK 30 MG TAB PO SCH (08:08)
[2019-05-28] MEDS: [UNRECOGNIZED DRUG - OTHER] PO SCH ×2 (08:10→19:45)
[2019-05-28] MEDS: PROMETHAZINE INJ 6.25 MG in SODIUM CHLORIDE 0.9% 50 ML IVPB PRN ×2 (08:11→22:38)
--- NOTE | 2019-05-28 19:17 | PN ---
PROGRESS NOTE CHIEF COMPLAINT: Persistent nausea, vomiting, and abdominal pain with gastroparesis. HISTORY OF PRESENT ILLNESS: This lady states that she is not any better and is still throwing up three or four times a day along with having protracted pain. PHYSICAL EXAMINATION: Hydration is good and color is good. Chest is clear. Cardiac exam is normal. The abdomen is soft and nontender. IMPRESSION: 1. Gastroparesis. 2. Chronic abdominal pain. 3. Intractable vomiting. PLAN: Continue with current program until her vomiting stops, which usually takes several days. MMODL / IJN: [id number] /
[2019-05-28] MEDS: TROKENDI XR PO SCH (19:45)
[2019-05-29] MEDS: ONDANSETRON 4 MG/2 ML VIAL IVP PRN ×4 (00:53→22:19)
[2019-05-29] MEDS: HYDROmorphone 1 MG/ML 1 ML SYRINGE IVP PRN ×6 (01:03→20:16)
[2019-05-29] MEDS: diphenhydrAMINE 50 MG/ML 1 ML VIAL IVP PRN ×3 (04:12→20:17)
[2019-05-29] MEDS: MONTELUKAST 10 MG TAB PO SCH (07:26)
[2019-05-29] MEDS: THYROID, PORK 30 MG TAB PO SCH (07:26)
[2019-05-29] MEDS: PANTOPRAZOLE 40 MG TABLET PO SCH ×2 (07:27→16:39)
[2019-05-29] MEDS: ENOXAPARIN 80 MG/0.8 ML SYRINGE SQ SCH ×2 (07:27→20:16)
[2019-05-29] MEDS: [UNRECOGNIZED DRUG - OTHER] PO SCH ×2 (07:29→20:18)
[2019-05-29] MEDS: TROKENDI XR PO SCH (20:18)
[2019-05-29] MEDS: PROMETHAZINE INJ 6.25 MG in SODIUM CHLORIDE 0.9% 50 ML IVPB PRN (23:15)
[2019-05-30] MEDS: HYDROmorphone 1 MG/ML 1 ML SYRINGE IVP PRN ×6 (00:19→22:03)
[2019-05-30] MEDS: ONDANSETRON 4 MG/2 ML VIAL IVP PRN ×3 (03:42→19:55)
[2019-05-30] MEDS: diphenhydrAMINE 50 MG/ML 1 ML VIAL IVP PRN ×3 (03:42→17:17)
[2019-05-30] MEDS: PROMETHAZINE INJ 6.25 MG in SODIUM CHLORIDE 0.9% 50 ML IVPB PRN ×2 (05:59→22:04)
[2019-05-30] MEDS: MONTELUKAST 10 MG TAB PO SCH (09:46)
[2019-05-30] MEDS: THYROID, PORK 30 MG TAB PO SCH (09:46)
[2019-05-30] MEDS: PANTOPRAZOLE 40 MG TABLET PO SCH ×2 (09:46→17:12)
[2019-05-30] MEDS: ENOXAPARIN 80 MG/0.8 ML SYRINGE SQ SCH ×2 (09:47→19:56)
[2019-05-30] MEDS: [UNRECOGNIZED DRUG - OTHER] PO SCH ×2 (09:49→19:57)
--- NOTE | 2019-05-30 16:52 | PN ---
PROGRESS NOTE CHIEF COMPLAINT: Gastroparesis. HISTORY OF PRESENT ILLNESS: This lady is feeling better. She is vomiting less often and pain seems to be a little bit better. PHYSICAL EXAMINATION: Her abdomen is soft and nontender. Chest is clear. Cardiac exam is normal. IMPRESSION: Gastroparesis with intractable pain and vomiting. PLAN: She thinks she is improving enough that she feels she might be able to go home tomorrow. This will be the plan. MMODL / IJN: [id number] /
--- NOTE | 2019-05-30 17:55 | PN ---
PROGRESS NOTE DATE OF SERVICE: 05/29/2019 CHIEF COMPLAINT: Gastroparesis with intractable nausea and vomiting as well as abdominal pain. HISTORY OF PRESENT ILLNESS: This lady is doing better. She only vomited 2 or 3 times yesterday and her pain is improving. PHYSICAL EXAMINATION: Her vital signs are normal. Her color is good. Hydration is good. Chest is clear. Cardiac exam is normal. Abdomen is soft, nontender. IMPRESSION: 1. Gastroparesis. 2. Intractable abdominal pain and vomiting. PLAN: Continue with the current program with hopes that she may be able to be discharged back home in a day or two. MMODL / IJN: [id number] /
[2019-05-30] MEDS: TROKENDI XR PO SCH (19:56)
[2019-05-31] MEDS: diphenhydrAMINE 50 MG/ML 1 ML VIAL IVP PRN ×4 (02:01→22:43)
[2019-05-31] MEDS: HYDROmorphone 1 MG/ML 1 ML SYRINGE IVP PRN ×6 (02:01→22:44)
[2019-05-31] MEDS: ONDANSETRON 4 MG/2 ML VIAL IVP PRN (06:17)
[2019-05-31] MEDS: PANTOPRAZOLE 40 MG TABLET PO SCH ×2 (07:45→17:34)
[2019-05-31] MEDS: MONTELUKAST 10 MG TAB PO SCH (07:45)
[2019-05-31] MEDS: THYROID, PORK 30 MG TAB PO SCH (07:45)
[2019-05-31] MEDS: [UNRECOGNIZED DRUG - OTHER] PO SCH ×2 (07:46→20:10)
[2019-05-31] MEDS: ENOXAPARIN 80 MG/0.8 ML SYRINGE SQ SCH ×2 (07:48→20:10)
[2019-05-31] MEDS: SCOPOLAMINE 1.5MG/72HR PATCH TRANSDERM SCH (11:52)
--- NOTE | 2019-05-31 12:18 | PN ---
PROGRESS NOTE CHIEF COMPLAINT: Gastroparesis with vomiting. HISTORY OF PRESENT ILLNESS: This lady apparently became worse. She states that she vomited 8 times yesterday and last night. She was asked to report this to the nurse every time. She states her abdominal pain has gotten worse. PHYSICAL EXAMINATION: She appears depressed. Skin color is normal and she is well hydrated. Chest is clear and the cardiac exam is normal. The abdomen is soft. IMPRESSION: 1. Gastroparesis with intractable nausea and vomiting. 2. Intractable abdominal pain. 3. Depression. PLAN: Cancel discharge for today and place an order for discharge planning. MMODL / IJN: [id number] /
--- NOTE | 2019-05-31 15:46 | CDI ---
Documentation Clarification Form Date: 05/31/2019 03:01:33 PM From: Ginger Torres RN, CCDS Admit Date: 05/27/2019 08:46:00 AM Patient Name: Maribel Johansen Visit Number: [id number] Discharge Date: ATTENTION: The Clinical Documentation Specialists (CDI) and [facility] Coding Staff appreciate your assistance in clarifying documentation. Please respond to the clarification below the line at the bottom and electronically sign. The CDI & [facility] Coding staff will review the response and follow-up if needed. Please note: Queries are made part of the Legal Health Record. If you have any questions, please contact the author of this message via ITS. Dr. Wong Adame Depression is documented in the patient's past psychological history and in your progress note on 05/31 "she appears depressed", clarification for specificity is needed. History/Risk factors: Gastroparesis, Intractable abdominal pain. Jejunostomy Tube Feedings Clinical indicators: 39-year-old female who present to ED on 05/24 for evaluation of persistent nausea, vomiting and abdominal pain. She has a past medical history of depression. She lives with spouse who provides support. She is independent with ADLS and drives, plan is to return home at discharge, per case management assessment on 05/28. 05/31 progress notes " this lady apparently became worse. She states that she vomited 8 times yesterday and last night." "she states her abdominal pain has gotten worse. Treatment: Dilaudid 1 mg IV Q4HRS PRN dose (multiple doses given Q4 throughout stay, last dose 14:48 05/31 rate pain at 6) Zofran 4 Mg IVP Q6 HRS PRN Protonix 40 mg PO AC-BID Phenergan 12.5 mg IVPB Q6HRS PRN Trokendi Xr 1 PO HS In your professional opinion, can you please clarify if the condition, depression can be further specified? Specify type if known Single or recurrent episode Mild, moderate, or severe With or without psychotic features Whether in partial or full remission Other (please specify) Unable to determine (Last Revision: January 2017) MTDD
[2019-05-31] MEDS: PROMETHAZINE INJ 12.5 MG in SODIUM CHLORIDE 0.9% 50 ML IVPB PRN (18:42)
[2019-05-31] MEDS: TROKENDI XR PO SCH (20:11)
[2019-06-01] MEDS: HYDROmorphone 1 MG/ML 1 ML SYRINGE IVP PRN ×5 (02:43→20:55)
[2019-06-01] MEDS: PROMETHAZINE INJ 12.5 MG in SODIUM CHLORIDE 0.9% 50 ML IVPB PRN ×2 (02:44→09:26)
[2019-06-01] MEDS: diphenhydrAMINE 50 MG/ML 1 ML VIAL IVP PRN ×3 (06:17→20:54)
[2019-06-01] MEDS: PANTOPRAZOLE 40 MG TABLET PO SCH ×2 (07:55→17:05)
[2019-06-01] MEDS: MONTELUKAST 10 MG TAB PO SCH (07:55)
[2019-06-01] MEDS: ENOXAPARIN 80 MG/0.8 ML SYRINGE SQ SCH ×2 (07:56→21:34)
[2019-06-01] MEDS: THYROID, PORK 30 MG TAB PO SCH (07:56)
[2019-06-01] MEDS: [UNRECOGNIZED DRUG - OTHER] PO SCH ×2 (07:59→21:32)
--- NOTE | 2019-06-01 15:09 | PN ---
PROGRESS NOTE CHIEF COMPLAINT: Intractable nausea and vomiting. HISTORY OF PRESENT ILLNESS: This lady now seems to have developed another infection around her jejunostomy tube. Temperature was over 99 last night and it is inflamed, tender and somewhat exudative. She is vomiting a little bit less. PHYSICAL EXAMINATION: Vital signs are normal and the chest is clear. The cardiac exam is normal and the abdomen is soft, nontender. There is some redness and purulent matter around the jejunostomy tube. Bowel sounds are present. Extremities are normal. IMPRESSION: 1. Cellulitis around jejunostomy tube. 2. Gastroparesis. PLAN: Cancel discharge for today and consult Infectious Disease. MMODL / IJN: [id number] /
[2019-06-01] MEDS: ONDANSETRON 4 MG/2 ML VIAL IVP PRN (17:02)
[2019-06-01] MEDS: TROKENDI XR PO SCH (21:32)
--- NOTE | 2019-06-01 23:56 | P.CONS ---
History of Present Illness - Reason for Consult Consult date: 06/01/19 jugenostomy site infection Requesting physician: Wong Adame - Chief Complaint pus drainage from the jugenostomy tue site x 1 day - History of Present Illness Patient is a 39-year-old female with a past medical he significant for gastroparesis pancreatitis SMA syndrome this patient who did have a previous history of gastric bypass and jejunostomy tube presented to the ER at [facility] more than a week ago on May 2019 for evaluation of persistent nausea vomiting and abdominal pain patient subsequently has been admitted to the hospital and has been treated by admitting services this morning the patient noticed some purulent drainage coming out from her jejunostomy tube site that prompted this infectious disease consultation patient complains of some dull aching pain to the left side about 2 degrees of flexion no radiation s he also has slight swelling of the area but no significant redness patient has further nausea no vomiting no chest pain shortness with cough high-grade fever highest temperature has been 99.3 he did have elevated white count 10.9 on admission with repeat of 6.0 on 223 no blood work has been done since then. Review of Systems Positive point has been mentioned in HPI rest of the systems are negative Past Medical History Past Medical History: Deep Vein Thrombosis (DVT), GERD/Reflux, Pulmonary Embolus (PE), Thyroid Disorder Additional Past Medical History / Comment(s): Idiopathic gastroparesis, takes li ttle in orally-has J tube for feedings,R pulmonary embolism -2017, pancreatitis, hypothyroid, chronic anemia, sinus problems, migraine, dvt 2-2018. 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 J tube replaced. mediport insertion Past Anesthesia/Blood Transfusion Reactions: No Reported Reaction Past Psychological History: Depression Additional Psychological History / Comment(s): . Smoking Status: Never smoker Past Alcohol Use History: Rare Additional Past Alcohol Use History / Comment(s): PT DENIES SMOKING OR ANY ILLEGAL DRUG USE, HAS AN OCC DRINK. Past Drug Use History: None Reported - Past Family History Father Family Medical History: Hypertension Additional Family Medical History / Comment(s): . Mother Family Medical History: No Reported History Additional Family Medical History / Comment(s): . Medications and Allergies Home Medications Medication Instructions Recorded Confirmed Type Lansoprazole [Prevacid] 30 mg PO BID 02/02/18 05/24/19 History Montelukast Chew [Singulair] 10 mg PO DAILY 02/02/18 05/24/19 History Topiramate [Trokendi Xr] 50 mg PO HS 07/18/18 05/24/19 History Scopolamine 1.5MG/72Hr Patch 1 patch TRANSDERM Q72H #10 patch 07/31/18 05/24/19 Rx [TransDerm Scop] Thyroid,Pork [[place]ogene Thyroid] 60 mg PO Q48H 10/06/18 05/24/19 History Thyroid,Pork [Imogene Thyroid] 90 mg PO Q48H 10/06/18 05/24/19 History SUMAtriptan SUCCINATE [Imitrex] 100 mg PO DAILY PRN 10/19/18 05/24/19 History Prucalopride Succinate [Motegrity] 2 mg PO DAILY 01/14/19 05/24/19 History Ondansetron HCl [Zofran] 8 mg PO Q8H PRN 03/29/19 05/24/19 History oxyCODONE HCL [oxyCODONE HCL (IR)] 10 mg PO Q8H PRN 04/20/19 05/24/19 History Linaclotide [Linzess] 290 mcg PO DAILY 05/24/19 05/24/19 History Tegaserod Hydrogen Maleate 6 mg PO BID 05/24/19 05/24/19 History [Zelnorm] Allergies Allergy/AdvReac Type Severity Reaction Status Date / Time metoclopramide [From Reglan] AdvReac Mild jittery Verified 05/24/19 23:07 prochlorperazine AdvReac Mild JITTERY Verified 05/24/19 23:07 [From Compazine] Physical Exam Vitals: Vital Signs Temp Pulse Pulse Resp BP Pulse Ox 06/01/19 19:35 99 F 99 16 110/78 100 06/01/19 12:32 99.3 F 91 17 104/69 97 06/01/19 05:00 96.6 F L 81 16 122/57 99 Intake and Output 06/01/19 06/01/19 06/01/19 06:59 14:59 22:59 Intake Total 450 965 Balance 450 965 Intake: IV 400 375 ns@50 400 375 Intake, IV Titration 50 50 Amount Promethazine Inj 12.5 mg 50 50 In Sodium Chloride 0.9% 50 ml @ 200 mls/hr IVPB Q6HR PRN Rx#:[id number] Oral 540 Other: Voiding Method Toilet Toilet Toilet # Voids 3 GENERAL DESCRIPTION: Middle-aged female lying in bed, no distress. No tachypnea or accessory muscle of respiration use. HEENT: Shows Pallor , no scleral icterus. Oral mucous membrane is dry. NECK: Trachea central, no thyromegaly. LUNGS: Unlabored breathing. Clear to auscultation anteriorly. No wheeze or crackle. HEART: S1, S2, regular rate and rhythm. ABDOMEN: Soft, just jejunostomy tube site with minimal swelling and purulent drainage that was cultured eXTREMITIES: No edema of feet. SKIN: No rash, no masses palpable. NEUROLOGICAL: The patient is awake, alert, oriented x3, mood and affect normal Results CBC & Chem 7: 05/27/19 13:46 05/27/19 13:46 Assessment and Plan Assessment: 1-patient who did have a history of recurrent cellulitis and infection at her jejunostomy tube site we of the culture returned which was predominantly gram- negative such as Pseudomonas and Klebsiella now with evidence of some purulent drainage but no significant fluctuation redness disputes this patient currently with no fever or elevated white count more likely representing superficial cellulitis rather than deep infection (1) Abdominal wall cellulitis Current Visit: Yes Status: Acute Code(s): L03.311 - CELLULITIS OF ABDOMINAL WALL SNOMED Code(s): 91022070 Plan: 1-wound culture has been obtained to guide antibiotic therapy 2-we will empirically add Zosyn 3.375 g every 8 hour 3-we will check a CBC BMP and a CRP We will follow on clinical condition and cultures to further adjust medication if needed Thank you for this consultation we will follow the patient along with you Time with Patient: Greater than 30
[2019-06-02] MEDS: PIPERACILLIN-TAZOBACTAM 3.375 GM in SODIUM CHLORIDE 0.9% 100 ML IVPB SCH ×4 (00:08→23:30)
[2019-06-02] MEDS: ONDANSETRON 4 MG/2 ML VIAL IVP PRN ×4 (00:19→21:06)
[2019-06-02] MEDS: HYDROmorphone 1 MG/ML 1 ML SYRINGE IVP PRN ×6 (00:20→21:11)
[2019-06-02] MEDS: diphenhydrAMINE 50 MG/ML 1 ML VIAL IVP PRN ×3 (04:54→21:11)
[2019-06-02 07:18] LABS: Basophils % (A) 1 %; Eosinophils # (A) 0.2 k/uL (0-0.7); Eosinophils % (A) 3 %; HCT 39.5 % (34.0-46.0); HGB 13.1 gm/dL (11.4-16.0); Lymphocytes # (A) 2.5 k/uL (1.0-4.8); Lymphocytes % (A) 35 %; MCH 28.1 pg (25.0-35.0); MCHC 33.2 g/dL (31.0-37.0); MCV 84.9 fL (80.0-100.0); Mean Platelet Volume 7.1; Monocytes # (A) 0.4 k/uL (0-1.0); Monocytes % (A) 5 %; Neutrophils % (A) 55 %; Platelet Count 268 k/uL (150-450); RBC 4.65 m/uL (3.80-5.40); WBC 7.3 k/uL (3.8-10.6)
[2019-06-02 07:27] LABS: African American GFR (CKD) >90 (>60 ml/min/1.73 sqM); Anion Gap 8 mmol/L; Blood Urea Nitrogen 10 mg/dL (7-17); Calcium 8.7 mg/dL (8.4-10.2); Carbon Dioxide 18 mmol/L (22-30); Chloride 110 mmol/L (98-107); Glucose 87 mg/dL (74-99); Non-African American GFR(CKD) >90 (>60 ml/min/1.73 sqM); Potassium 4.1 mmol/L (3.5-5.1); Sodium 136 mmol/L (137-145)
[2019-06-02 08:10] LABS: C Reactive Protein <5.0 mg/L (<10.0)
[2019-06-02] MEDS: THYROID, PORK 30 MG TAB PO SCH (08:29)
[2019-06-02] MEDS: ENOXAPARIN 80 MG/0.8 ML SYRINGE SQ SCH ×2 (08:29→21:37)
[2019-06-02] MEDS: [UNRECOGNIZED DRUG - OTHER] PO SCH ×2 (08:38→21:12)
[2019-06-02] MEDS: PANTOPRAZOLE 40 MG TABLET PO SCH ×2 (08:38→16:56)
[2019-06-02] MEDS: MONTELUKAST 10 MG TAB PO SCH (08:38)
--- NOTE | 2019-06-02 09:52 | MISC ---
MISCELLANOUS REPORT QUERY: The type of depression unable to determine. MMODL / IJN: [id number] /
--- NOTE | 2019-06-02 12:13 | PN ---
PROGRESS NOTE CHIEF COMPLAINT: Myelodysplasia. HISTORY OF PRESENT ILLNESS: This lady has developed infection around the jejunostomy tube once again and she is on Zosyn and being managed by Infectious Disease. REVIEW OF SYSTEMS: She has had no fever, chills, significant increase in pain, etc. She still vomits occasionally. PHYSICAL EXAMINATION: Her chest is clear. Cardiac exam is normal. Abdomen is soft, nontender. There is less erythema and cellulitis around the jejunostomy tube today. IMPRESSION: 1. Cellulitis and abdominal wall infection around the jejunostomy tube. 2. Gastroparesis. 3. Intractable nausea and vomiting. 4. Intractable pain. PLAN: Continue with current program with IV antibiotics. MMODL / IJN: [id number] /
[2019-06-02] MEDS: PROMETHAZINE INJ 12.5 MG in SODIUM CHLORIDE 0.9% 50 ML IVPB PRN (12:38)
--- NOTE | 2019-06-02 15:55 | PN ---
PROGRESS NOTE DATE OF SERVICE: 06/02/2019 REASON FOR FOLLOWUP: Jejunostomy tube site cellulitis and abscess. INTERVAL HISTORY: The patient is currently afebrile. She has been breathing comfortably. Overall drainage from the jejunostomy site has decreased. Denies any chest pain or cough. No abdominal pain. No diarrhea. PHYSICAL EXAMINATION: Blood pressure 112/67 with a pulse of 76, temperature 98.6. She is 99% on room air. General description is a middle-aged female lying in bed in no distress. Examination of the abdominal wall: The jejunostomy tube site with minimal swelling with no redness or any foul-smelling drainage. LABS: Hemoglobin 13.1, white count 7.3, creatinine 0.80. Wound cultures currently pending. DIAGNOSTIC IMPRESSION AND PLAN: Patient with jejunostomy tube site abscess with spontaneous drainage. Culture has been obtained though currently pending. Patient on Zosyn of positive culture. Continue supportive care. MMODL / IJN: [id number] /
[2019-06-02] MEDS: TROKENDI XR PO SCH (21:12)
[2019-06-03] MEDS: HYDROmorphone 1 MG/ML 1 ML SYRINGE IVP PRN ×6 (02:12→22:46)
[2019-06-03] MEDS: diphenhydrAMINE 50 MG/ML 1 ML VIAL IVP PRN ×4 (03:21→22:46)
[2019-06-03] MEDS: PROMETHAZINE INJ 12.5 MG in SODIUM CHLORIDE 0.9% 50 ML IVPB PRN ×2 (06:20→14:59)
[2019-06-03] MEDS: THYROID, PORK 30 MG TAB PO SCH (08:23)
[2019-06-03] MEDS: SCOPOLAMINE 1.5MG/72HR PATCH TRANSDERM SCH (08:23)
[2019-06-03] MEDS: PANTOPRAZOLE 40 MG TABLET PO SCH ×2 (08:23→16:55)
[2019-06-03] MEDS: PIPERACILLIN-TAZOBACTAM 3.375 GM in SODIUM CHLORIDE 0.9% 100 ML IVPB SCH ×3 (08:23→23:59)
[2019-06-03] MEDS: ENOXAPARIN 80 MG/0.8 ML SYRINGE SQ SCH ×2 (08:23→20:18)
[2019-06-03] MEDS: MONTELUKAST 10 MG TAB PO SCH (08:23)
[2019-06-03] MEDS: [UNRECOGNIZED DRUG - OTHER] PO SCH ×2 (08:24→20:18)
[2019-06-03] MEDS: ONDANSETRON 4 MG/2 ML VIAL IVP PRN (10:33)
--- NOTE | 2019-06-03 13:28 | PN ---
PROGRESS NOTE CHIEF COMPLAINT: Gastroparesis with vomiting, abdominal pain, and cellulitis abdominal wall. HISTORY OF PRESENT ILLNESS: This lady is improving. The area of infection or cellulitis around her jejunostomy tube is improving. She has had no fever or chills. Pain is receding somewhat and nausea is better. PHYSICAL EXAMINATION: CHEST: Clear. Cardiac exam is normal and the area around the jejunostomy tube is much less inflamed. IMPRESSION: 1. Gastroparesis. 2. Intractable nausea and vomiting. 3. Intractable pain. 4. Cellulitis from the jejunostomy tube. PLAN: Probably home tomorrow if she is cleared by Infectious Disease. MMODL / IJN: [id number] /
--- NOTE | 2019-06-03 17:30 | PN ---
PROGRESS NOTE DATE OF SERVICE: 06/03/2019 REASON FOR FOLLOWUP: Jejunostomy tube site abscess and cellulitis. INTERVAL HISTORY: The patient is currently afebrile, has been breathing comfortably. Overall drainage from the jejunostomy tube site has decreased. No chest pain. No cough. No nausea, vomiting. No abdominal pain. No diarrhea. PHYSICAL EXAMINATION: Blood pressure 126/75 with a pulse of 90, temperature 98.2. She is 98% on room air. General description is a middle-aged female up in the chair in no distress. Examination of the left upper abdominal area, site of the jejunostomy tube is swelling, no swelling. No redness or any purulent drainage. No foul smelling. LABS: No new labs have been obtained today. Wound culture currently showing gram negative . DIAGNOSTIC IMPRESSION AND PLAN: Patient with jejunostomy tube site abscess, status post spontaneous drainage. Culture now showing group D Enterococcus and gram negative bacilli. The patient currently covered with Zosyn. To continue. Discharge antibiotic depending upon the culture report. Local care to continue with cream. Questions were answered. MMODL / IJN: [id number] /
[2019-06-03] MEDS: TROKENDI XR PO SCH (20:18)
[2019-06-04] MEDS: HYDROmorphone 1 MG/ML 1 ML SYRINGE IVP PRN ×4 (02:52→16:33)
[2019-06-04] MEDS: diphenhydrAMINE 50 MG/ML 1 ML VIAL IVP PRN ×3 (04:49→17:06)
[2019-06-04 05:46] VITALS: RESP 15
[2019-06-04] MEDS: PANTOPRAZOLE 40 MG TABLET PO SCH ×2 (07:35→17:51)
[2019-06-04] MEDS: MONTELUKAST 10 MG TAB PO SCH (07:35)
[2019-06-04] MEDS: PIPERACILLIN-TAZOBACTAM 3.375 GM in SODIUM CHLORIDE 0.9% 100 ML IVPB SCH ×2 (07:39→16:43)
[2019-06-04] MEDS: [UNRECOGNIZED DRUG - OTHER] PO SCH (07:42)
[2019-06-04] MEDS: ENOXAPARIN 80 MG/0.8 ML SYRINGE SQ SCH (07:49)
[2019-06-04] MEDS: ONDANSETRON 4 MG/2 ML VIAL IVP PRN (07:49)
[2019-06-04] MEDS: THYROID, PORK 30 MG TAB PO SCH (07:49)
[2019-06-04] MEDS: HYDROPHILIC CREAM 180 GM TUBE TOPICAL SCH ×2 (12:31→16:41)
--- NOTE | 2019-06-04 13:01 | PN ---
PROGRESS NOTE DATE OF SERVICE: 06/04/2019. REASON FOR FOLLOWUP: Jejunostomy tube site abscess and cellulitis. INTERVAL HISTORY: The patient is currently afebrile. The patient is breathing comfortably. The patient denies having any chest pain. No shortness of breath or cough. No nausea or vomiting. No abdominal pain and no further drainage from her jejunostomy tube site. PHYSICAL EXAMINATION: Blood pressure 106/66 with a pulse of 66, temperature 98.3. She is 98% on room air. General description is a middle-aged female lying in bed in no distress. RESPIRATORY SYSTEM: Unlabored breathing, clear to auscultation anteriorly. HEART: S1, S2. Regular rate and rhythm. ABDOMEN: Soft. No tenderness. LABS: Wound culture with E coli, Enterococcus faecalis and Zee albicans. DIAGNOSTIC IMPRESSION AND PLAN: Patient with jejunostomy tube site abscess and cellulitis. Clinical improving. The patient to finish therapy with oral Augmentin and Diflucan. Prescription has been sent to the pharmacy. MMISABELL / FLAKON: [id number] /
[2019-06-04] MEDS: PROMETHAZINE INJ 12.5 MG in SODIUM CHLORIDE 0.9% 50 ML IVPB PRN (13:41)
[2019-06-04 13:54] VITALS: BP 115/66; PULSE 60; TEMP 97.6
--- NOTE | 2019-06-05 07:30 | DS ---
DISCHARGE SUMMARY CHIEF COMPLAINT: Intractable nausea, vomiting, and pain. HISTORY OF PRESENT ILLNESS AND PHYSICAL EXAM: Details of this lady's history and physical can be found in the initial workup. LABORATORY STUDIES: While she was in the hospital she had laboratory studies, details of which can be found in the laboratory section of her chart. COURSE IN HOSPITAL: After admission she was placed on bedrest and started on intravenous fluids, antiemetics, analgesics and received her usual inpatient management. She did develop an infection around the jejunostomy tube with cellulitis and she was seen by Infectious Disease and this was treated and was resolving. She is doing well. It was felt that she could go home on the 2nd and she will go home on her usual activity, diet and medication and her usual home care. She will come to the office, if she is able to. FINAL DIAGNOSES: 1. Gastroparesis with intractable vomiting and abdominal pain. 2. Dehydration. 3. Cellulitis and infection of jejunostomy site in the left upper quadrant. OPERATIONS: None. CONSULTATION: Infectious Disease. She is improved. MMODL / FLAKON: [id number] /
== END 2019-06-04 18:26 | disposition home health service (06) | DRG 392 ==
LOC: EC 18:59 → 5NMEDONC 21:25 → OBSVTOIN 05-27 08:46 → 6NMEDSUR 06-01 14:07 → 5NMEDONC 06-04 15:41
PROVIDERS: ADMIT Family Medicine; ATTEND Family Medicine
DX: K31.84 Gastroparesis (principal); L03.311 Cellulitis of abdominal wall; K94.12 Enterostomy infection; L02.211 Cutaneous abscess of abdominal wall; E86.0 Dehydration; K21.9 Gastro-esophageal reflux disease without esophagitis; E03.9 Hypothyroidism, unspecified; G43.909 Migraine, unspecified, not intractable, without status migrainosus; F32.9 Major depressive disorder, single episode, unspecified; B96.20 Unspecified Escherichia coli [E. coli] as the cause of diseases classified elsewhere; G89.29 Other chronic pain; D46.9 Myelodysplastic syndrome, unspecified; B95.2 Enterococcus as the cause of diseases classified elsewhere; Z79.899 Other long term (current) drug therapy; Z86.2 Personal history of diseases of the blood and blood-forming organs and certain disorders involving the immune mechanism; Z86.711 Personal history of pulmonary embolism; Z86.718 Personal history of other venous thrombosis and embolism; Z87.19 Personal history of other diseases of the digestive system; Z90.49 Acquired absence of other specified parts of digestive tract; Z98.890 Other specified postprocedural states; Z98.84 Bariatric surgery status; Z95.828 Presence of other vascular implants and grafts; Z86.79 Personal history of other diseases of the circulatory system; Z88.8 Allergy status to other drugs, medicaments and biological substances; Z82.49 Family history of ischemic heart disease and other diseases of the circulatory system
CPT/HCPCS: 36415; 80048; 80053; 81003; 82550; 83605; 83690; 83735; 84100; 85025; 86140; 87070; 87077; 87186; 87205; 96361; 96374; 96375; 99285

== ENCOUNTER 2019-06-10 | Inpatient (IN) | payer BC | END 2019-06-14 15:10 | disposition home or self-care (01) | DRG 195 | PROVIDERS: ADMIT Family Medicine | PROC: 3E0336Z Introduction of Nutritional Substance into Peripheral Vein, Percutaneous Approach (ICD-10-PCS; principal; 2019-06-10) | CPT/HCPCS: 36415; 71046; 71250; 74177; 80048; 80053; 81003; 82330; 83605; 83735; 84075; 84100; 84450; 84460; 84478; 85025; 85610; 85730; 86308; 87040; 87081; 87430; 87502; 93005; 94640; 96361; 96365; 96368; 96375; 99285 ==

== ENCOUNTER 2019-06-23 | Emergency (ER) | payer BC ==
[2019-06-23] MEDS ORDERED: SODIUM CHLORIDE 0.9% 1,000 ML IV STA (00:12)
[2019-06-23] MEDS ORDERED: ONDANSETRON 4 MG/2 ML VIAL IVP STA ×2 (00:18→04:36)
--- NOTE | 2019-06-23 00:42 | ED ---
Abdominal Pain HPI - General Chief Complaint: Abdominal Pain Stated Complaint: Vomiting, abdominal pain Time Seen by Provider: 06/23/19 00:11 Source: patient Mode of arrival: ambulatory Limitations: no limitations - History of Present Illness Initial Comments: Maribel is a 39-year-old female who presents the ER today for evaluation of epigastric abdominal discomfort nausea, vomiting decreased by mouth intake. Patient has a very extensive history and is very well-known to the emergency department. She has a history of idiopathic gastroparesis for which she has undergone extensive workup and treatment including gastric pacemaker in the past. Patient reports she's been dealing with nausea and abdominal pain since Tuesday. She's taking her home medications with no relief. She did give herself a liter of IV fluids due to concern for dehydration. Symptoms persisted which prompted her come to the ER today for IV medications. - Related Data Home Medications Medication Instructions Recorded Confirmed Lansoprazole [Prevacid] 30 mg PO BID 02/02/18 06/08/19 Montelukast Chew [Singulair] 10 mg PO DAILY 02/02/18 06/08/19 Topiramate [Trokendi Xr] 50 mg PO HS 07/18/18 06/08/19 Thyroid,Pork [[place] Thyroid] 60 mg PO Q48H 10/06/18 06/08/19 Thyroid,Pork [[place] Thyroid] 90 mg PO Q48H 10/06/18 06/08/19 SUMAtriptan SUCCINATE [Imitrex] 100 mg PO DAILY PRN 10/19/18 06/08/19 Prucalopride Succinate [Motegrity] 2 mg PO DAILY 01/14/19 06/08/19 Ondansetron HCl [Zofran] 8 mg PO Q8H PRN 03/29/19 06/08/19 oxyCODONE HCL [oxyCODONE HCL (IR)] 10 mg PO Q8H PRN 04/20/19 06/08/19 Linaclotide [Linzess] 290 mcg PO DAILY 05/24/19 06/08/19 Tegaserod Hydrogen Maleate 6 mg PO BID 05/24/19 06/08/19 [Zelnorm] Enoxaparin [Lovenox] 80 mg SQ Q12H 06/08/19 06/08/19 Phenergen 12.5 mg IV Q8HR PRN 06/08/19 06/08/19 Previous Rx's Medication Instructions Recorded Scopolamine 1.5MG/72Hr Patch 1 patch TRANSDERM Q72H #10 patch 07/31/18 [TransDerm Scop] Fluconazole [Diflucan] 100 mg PO DAILY #10 tab 06/04/19 Moxifloxacin HCl [Avelox] 400 mg PO DAILY #5 tablet 06/13/19 Allergies Allergy/AdvReac Type Severity Reaction Status Date / Time metoclopramide [From Reglan] AdvReac Mild jittery Verified 06/08/19 07:59 prochlorperazine AdvReac Mild JITTERY Verified 06/08/19 07:59 [From Compazine] Review of Systems ROS Statement: Those systems with pertinent positive or pertinent negative responses have been documented in the HPI. ROS Other: All systems not noted in ROS Statement are negative. Past Medical History Past Medical History: Deep Vein Thrombosis (DVT), GERD/Reflux, Pulmonary Embolus (PE), Thyroid Disorder Additional Past Medical History / Comment(s): Pt recently admitted to [facility] on 05/27/19 with gastroparesis with intractable vomiting/abdominal pain/dehydration/cellulitis and abscess J tube site. Other hx:Idiopathic gastroparesis, takes little in orally-has J tube for feedings-currently on hold and receiving TPN, chronic abdominal pain, R pulmonary embolism -2017, dvt R upper extremity 2018, pancreatitis once in 2018-thought stone somewhere, hypothyroid, chronic anemia, sinus problems, migraine. 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 J tube replaced-last r eplace in November or December 2018, piccs, mediport insertion Past Anesthesia/Blood Transfusion Reactions: No Reported Reaction Past Psychological History: Depression Smoking Status: Never smoker Past Alcohol Use History: None Reported Past Drug Use History: None Reported - Past Family History Father Family Medical History: Hypertension Additional Family Medical History / Comment(s): Father is 57 yrs old.. Mother Family Medical History: No Reported History Additional Family Medical History / Comment(s): Mother is 57yrs old. General Exam - General Exam Comments Initial Comments: Physical Exam GENERAL: Chronically ill-appearing no acute distress HENT: Normocephalic, Atraumatic. EYES: PERRL, EOMI PULMONARY: Unlabored respirations. CARDIOVASCULAR: RRR Warm and well perfused extremities ABDOMEN: Non-distended SKIN: No rashes or bruising : Deferred NEUROLOGIC: Alert and oriented Normal speech Normal gait MUSCULOSKELETAL: Moving all extremities with no apparent injury PSYCHIATRIC: No SI/HI Limitations: no limitations Course Vital Signs 06/23/19 06/23/19 06/23/19 00:04 04:00 04:52 Temperature 98.5 F 98.5 F 98.6 F Pulse Rate 89 75 75 Respiratory 18 16 16 Rate Blood Pressure 146/87 124/68 124/70 O2 Sat by Pulse 100 95 96 Oximetry Medical Decision Making - Medical Decision Making The patient was seen and evaluated history is obtained from patient Patient's very well-known to the ER she has chronic epigastric abdominal pain and decreased by mouth intake secondary to idiopathic gastroparesis Patient has been hydrating herself at home with IV fluids, and no concern for dehydration based on exam I don't feel there is any benefit to labs however we will hydrate the patient and give her IV medications x-ray Patient received IV Zofran with no improvement, IV Phenergan was ordered and given patient has not had any vomiting here in the ER Patient continued to rest in the emergency department. Upon reevaluation patient reports she still felt nauseated but continued to have no vomiting. I advised the patient I will not give her any narcotic pain medication, Benadryl, angiolytics or Haldol because she drove herself here and does not have a ride home. She now stiff she can wait until her children OF her can pick her up, I advised her that it is not safe for her to remain in the emergency department and possibly be exposed to coronavirus or other ill patients given her compromised state. I advised the patient that since she has been here for 4 hours without any vomiting she will be discharged home. Patient requests a repeat doses Zofran prior to discharge which she was given. Patient has Mediport in place and is able to give herself IV hydration at home should she need it. Disposition Clinical Impression: Chronic abdominal pain Disposition: HOME SELF-CARE Condition: Stable Instructions (If sedation given, give patient instructions): Abdominal Pain (ED) Is patient prescribed a controlled substance at d/c from ED?: No Referrals: Wong Adame MD [Primary Care Provider] - 1-2 days
[2019-06-23] MEDS ORDERED: PROMETHAZINE INJ 25 MG in SODIUM CHLORIDE 0.9% 50 ML IVPB ONE (01:30)
[2019-06-23 04:13] VITALS: PULSE 75; RESP 16
[2019-06-23 04:56] VITALS: BP 124/70; TEMP 98.6
== END 2019-06-23 04:55 | disposition home or self-care (01) ==
LOC: EC
DX: G89.29 Other chronic pain (principal); R10.13 Epigastric pain; R11.2 Nausea with vomiting, unspecified; R63.0 Anorexia; K21.9 Gastro-esophageal reflux disease without esophagitis; E03.9 Hypothyroidism, unspecified; G43.909 Migraine, unspecified, not intractable, without status migrainosus; Z86.718 Personal history of other venous thrombosis and embolism; Z86.711 Personal history of pulmonary embolism; Z87.19 Personal history of other diseases of the digestive system; Z90.49 Acquired absence of other specified parts of digestive tract; Z98.890 Other specified postprocedural states; Z93.4 Other artificial openings of gastrointestinal tract status; Z79.01 Long term (current) use of anticoagulants; Z79.899 Other long term (current) drug therapy; Z88.8 Allergy status to other drugs, medicaments and biological substances
CPT/HCPCS: 99284; 96374; 96375; 96376; J2550; J2405

== ENCOUNTER 2019-06-23 11:33 | Inpatient (IN) | payer BC ==
[2019-06-23] MEDS ORDERED: SODIUM CHLORIDE 0.9% 1,000 ML IV STA (11:45)
[2019-06-23] MEDS ORDERED: LORazepam 2 MG/ML INJ IV STA (11:45)
[2019-06-23] MEDS ORDERED: diphenhydrAMINE 50 MG/ML 1 ML VIAL IVP STA ×2 (11:45→13:09)
[2019-06-23] MEDS ORDERED: HYDROmorphone 0.5 MG/0.5 ML SYRINGE IVP STA (11:45)
[2019-06-23] MEDS ORDERED: ONDANSETRON 4 MG/2 ML VIAL IVP STA ×2 (11:45→13:09)
--- NOTE | 2019-06-23 11:50 | ED ---
General Adult HPI - General Chief complaint: Nausea/Vomiting/Diarrhea Stated complaint: vomiting Time Seen by Provider: 06/23/19 11:40 Source: patient, RN notes reviewed, old records reviewed Mode of arrival: ambulatory Limitations: no limitations - History of Present Illness Initial comments: 39-year-old female presenting for evaluation of nausea vomiting. Patient has history of gastroparesis, she has a J-tube and is currently on TPN through a Mediport. She's had 3 days of increased nausea vomiting and generalized abdominal pain. No fevers. She states this is typical of her normal symptoms. She's been unable to control her symptoms at home with IV medication. She does use IV Zofran and other antiemetics at home through her Mediport. She reports loose stool which is chronic. - Related Data Home Medications Medication Instructions Recorded Confirmed Lansoprazole [Prevacid] 30 mg PO BID 02/02/18 06/23/19 Montelukast Chew [Singulair] 10 mg PO DAILY 02/02/18 06/23/19 Topiramate [Trokendi Xr] 50 mg PO HS 07/18/18 06/23/19 Thyroid,Pork [[place] Thyroid] 60 mg PO Q48H 10/06/18 06/23/19 Thyroid,Pork [[place] Thyroid] 90 mg PO Q48H 10/06/18 06/23/19 Prucalopride Succinate [Motegrity] 2 mg PO DAILY 01/14/19 06/23/19 oxyCODONE HCL [oxyCODONE HCL (IR)] 10 mg PO Q8H PRN 04/20/19 06/23/19 Linaclotide [Linzess] 290 mcg PO DAILY 05/24/19 06/23/19 Tegaserod Hydrogen Maleate 6 mg PO BID 05/24/19 06/23/19 [Zelnorm] Enoxaparin [Lovenox] 80 mg SQ Q12H 06/08/19 06/23/19 Phenergen 12.5 mg IV Q8HR PRN 06/08/19 06/23/19 HYDROmorphone [Dilaudid] 4 mg PO Q8H PRN 06/23/19 06/23/19 Ondansetron 4mg 4 mg IV Q8H PRN 06/23/19 06/23/19 Previous Rx's Medication Instructions Recorded Scopolamine 1.5MG/72Hr Patch 1 patch TRANSDERM Q72H #10 patch 07/31/18 [TransDerm Scop] Allergies Allergy/AdvReac Type Severity Reaction Status Date / Time metoclopramide [From Reglan] AdvReac Mild jittery Verified 06/23/19 12:51 prochlorperazine AdvReac Mild JITTERY Verified 06/23/19 12:51 [From Compazine] Review of Systems ROS Statement: Those systems with pertinent positive or pertinent negative responses have been documented in the HPI. ROS Other: All systems not noted in ROS Statement are negative. Past Medical History Past Medical History: Deep Vein Thrombosis (DVT), GERD/Reflux, Pulmonary Embolus (PE), Thyroid Disorder Additional Past Medical History / Comment(s): Pt recently admitted to [facility] on 05/27/19 with gastroparesis with intractable vomiting/abdominal pain/dehydration/cellulitis and abscess J tube site. Other hx:Idiopathic gastroparesis, takes little in orally-has J tube for feedings-currently on hold and receiving TPN, chronic abdominal pain, R pulmonary embolism -2017, dvt R upper extremity 2018, pancreatitis once in 2018-thought stone somewhere, hypothyroid, chronic anemia, sinus problems, migraine. 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 J tube replaced-last replace in November or December 2018, piccs, mediport insertion Past Anesthesia/Blood Transfusion Reactions: No Reported Reaction Past Psychological History: Depression Smoking Status: Never smoker Past Alcohol Use History: None Reported Past Drug Use History: None Reported - Past Family History Father Family Medical History: Hypertension Additional Family Medical History / Comment(s): Father is 57 yrs old.. Mother Family Medical History: No Reported History Additional Family Medical History / Comment(s): Mother is 57yrs old. General Exam Limitations: no limitations General appearance: alert, in no apparent distress Head exam: Present: atraumatic, normocephalic Eye exam: Present: normal appearance, PERRL ENT exam: Present: mucous membranes dry Neck exam: Present: normal inspection. Absent: tenderness, meningismus Respiratory exam: Present: normal lung sounds bilaterally. Absent: respiratory distress, wheezes Cardiovascular Exam: Present: regular rate, normal rhythm GI/Abdominal exam: Present: soft, tenderness, other (Feeding tube, minimal surrounding erythema). Absent: distended, guarding Extremities exam: Present: normal inspection Neurological exam: Present: alert, oriented X3. Absent: motor sensory deficit Skin exam: Present: warm, dry, intact. Absent: cyanosis, diaphoretic Course Vital Signs 06/23/19 11:34 Temperature 98.5 F Pulse Rate 76 Respiratory 18 Rate Blood Pressure 125/76 O2 Sat by Pulse 99 Oximetry Medical Decision Making - Medical Decision Making 39-year-old female presenting for repeat visit evaluating nausea vomiting. Long history of nausea vomiting abdominal pain status post J-tube, currently on TPN with history of severe idiopathic gastroparesis. Patient's given multiple rounds of antiemetics, pain control in the emergency department without significant relief. We did discuss close return parameters worse observation, patient prefers observation at this institution for symptom control. She will be placed in observation, medications have been ordered including IV fluids antiemetics and pain control. Laboratory testing: CBC, CMP is unremarkable, no leukocytosis, stable hemoglobin, normal electrolytes. Diagnosis: Intractable nausea vomiting - Lab Data Result diagrams: 06/23/19 12:18 06/23/19 12:18 Lab Results 06/23/19 06/23/19 Range/Units 12:18 12:18 WBC 7.2 (3.8-10.6) k/uL RBC 4.68 (3.80-5.40) m/uL Hgb 12.8 (11.4-16.0) gm/dL Hct 38.5 (34.0-46.0) % MCV 82.4 (80.0-100.0) fL MCH 27.3 (25.0-35.0) pg MCHC 33.2 (31.0-37.0) g/dL RDW 13.5 (11.5-15.5) % Plt Count 384 (150-450) k/uL Neutrophils % 68 % Lymphocytes % 23 % Monocytes % 6 % Eosinophils % 2 % Basophils % 0 % Neutrophils # 4.9 (1.3-7.7) k/uL Lymphocytes # 1.7 (1.0-4.8) k/uL Monocytes # 0.4 (0-1.0) k/uL Eosinophils # 0.1 (0-0.7) k/uL Basophils # 0.0 (0-0.2) k/uL Sodium 140 (137-145) mmol/L Potassium 3.6 (3.5-5.1) mmol/L Chloride 112 H (98-107) mmol/L Carbon Dioxide 22 (22-30) mmol/L Anion Gap 6 mmol/L BUN 11 (7-17) mg/dL Creatinine 0.80 (0.52-1.04) mg/dL Est GFR (CKD-EPI)AfAm >90 (>60 ml/min/1.73 sqM) Est GFR (CKD-EPI)NonAf >90 (>60 ml/min/1.73 sqM) Glucose 101 H (74-99) mg/dL Calcium 9.1 (8.4-10.2) mg/dL Total Bilirubin 0.2 (0.2-1.3) mg/dL AST 16 (14-36) U/L ALT 11 (4-34) U/L Alkaline Phosphatase 75 (38-126) U/L Total Protein 6.4 (6.3-8.2) g/dL Albumin 3.7 (3.5-5.0) g/dL Disposition Clinical Impression: Abdominal pain, Intractable nausea and vomiting, Dehydration Disposition: ADMITTED IP TO THIS [facility] Condition: Stable Is patient prescribed a controlled substance at d/c from ED?: No Referrals: Wong Adame MD [Primary Care Provider] - 1-2 days Decision to Admit Reason: Admit from EC Decision Date: 06/23/19 Decision Time: 14:07
[2019-06-23 12:23] LABS: Basophils % (A) 0 %; Eosinophils # (A) 0.1 k/uL (0-0.7); Eosinophils % (A) 2 %; HCT 38.5 % (34.0-46.0); HGB 12.8 gm/dL (11.4-16.0); Lymphocytes # (A) 1.7 k/uL (1.0-4.8); Lymphocytes % (A) 23 %; MCH 27.3 pg (25.0-35.0); MCHC 33.2 g/dL (31.0-37.0); MCV 82.4 fL (80.0-100.0); Mean Platelet Volume 6.7; Monocytes # (A) 0.4 k/uL (0-1.0); Monocytes % (A) 6 %; Neutrophils # (A) 4.9 k/uL (1.3-7.7); Neutrophils % (A) 68 %; Platelet Count 384 k/uL (150-450); RBC 4.68 m/uL (3.80-5.40); RDW 13.5 % (11.5-15.5); WBC 7.2 k/uL (3.8-10.6)
[2019-06-23 12:42] LABS: ALT 11 U/L (4-34); AST 16 U/L (14-36); African American GFR (CKD) >90 (>60 ml/min/1.73 sqM); Albumin 3.7 g/dL (3.5-5.0); Alkaline Phosphatase 75 U/L (38-126); Anion Gap 6 mmol/L; Blood Urea Nitrogen 11 mg/dL (7-17); Calcium 9.1 mg/dL (8.4-10.2); Carbon Dioxide 22 mmol/L (22-30); Chloride 112 mmol/L (98-107); Glucose 101 mg/dL (74-99); Non-African American GFR(CKD) >90 (>60 ml/min/1.73 sqM); Potassium 3.6 mmol/L (3.5-5.1); Sodium 140 mmol/L (137-145); Total Bilirubin 0.2 mg/dL (0.2-1.3); Total Protein 6.4 g/dL (6.3-8.2)
[2019-06-23] MEDS ORDERED: HYDROmorphone 1 MG/ML 1 ML SYRINGE IVP STA (13:09)
[2019-06-23] MEDS ORDERED: PROMETHAZINE 12.5 MG IV PRN (13:59)
[2019-06-23] MEDS ORDERED: NALOXONE 0.4 MG/ML 1 ML VIAL IV PRN (14:04)
[2019-06-23] MEDS ORDERED: ACETAMINOPHEN TAB 325 MG TAB PO PRN (14:04)
[2019-06-23] MEDS ORDERED: THYROID, PORK 30 MG TAB PO ONE (14:30)
[2019-06-23] MEDS ORDERED: diphenhydrAMINE 50 MG CAP PO PRN (16:32)
[2019-06-23] MEDS ORDERED: diphenhydrAMINE 25 MG CAP PO PRN (16:41)
[2019-06-23] MEDS: SODIUM CHLORIDE 0.9% 1,000 ML IV SCH (16:57)
[2019-06-23] MEDS: ENOXAPARIN 80 MG/0.8 ML SYRINGE SQ SCH ×2 (16:58→20:13)
[2019-06-23] MEDS: HYDROmorphone 1 MG/ML 1 ML SYRINGE IVP PRN ×3 (16:58→23:43)
[2019-06-23] MEDS: PROMETHAZINE INJ 12.5 MG in SODIUM CHLORIDE 0.9% 50 ML IVPB PRN (17:44)
[2019-06-23] MEDS: [UNRECOGNIZED DRUG - OTHER] PO SCH (17:46)
[2019-06-23] MEDS: ONDANSETRON 4 MG/2 ML VIAL IVP PRN (20:12)
[2019-06-23] MEDS: TOPIRAMATE 25 MG TAB PO SCH (20:13)
[2019-06-23] MEDS: diphenhydrAMINE 50 MG/ML 1 ML VIAL IVP PRN (23:03)
[2019-06-23] MEDS: LORazepam 2 MG/ML INJ IV PRN (23:04)
[2019-06-24] MEDS: HYDROmorphone 1 MG/ML 1 ML SYRINGE IVP PRN ×7 (03:36→23:15)
[2019-06-24] MEDS: PROMETHAZINE INJ 12.5 MG in SODIUM CHLORIDE 0.9% 50 ML IVPB PRN ×2 (03:36→12:40)
[2019-06-24] MEDS: SODIUM CHLORIDE 0.9% 1,000 ML IV SCH ×3 (03:39→23:19)
[2019-06-24] MEDS: ONDANSETRON 4 MG/2 ML VIAL IVP PRN ×2 (06:25→19:57)
[2019-06-24] MEDS: MONTELUKAST 10 MG TAB PO SCH (08:19)
[2019-06-24] MEDS: LORazepam 2 MG/ML INJ IV PRN ×3 (08:19→22:41)
[2019-06-24] MEDS: diphenhydrAMINE 50 MG/ML 1 ML VIAL IVP PRN ×3 (08:19→22:40)
[2019-06-24] MEDS: PANTOPRAZOLE 40 MG/10 ML VIAL IV SCH (08:19)
[2019-06-24] MEDS: Linaclotide [Linzess] PO SCH (08:20)
[2019-06-24] MEDS: [UNRECOGNIZED DRUG - OTHER] PO SCH ×2 (08:20→16:23)
[2019-06-24] MEDS: ENOXAPARIN 80 MG/0.8 ML SYRINGE SQ SCH ×2 (08:22→19:58)
[2019-06-24] MEDS: PRUCALOPRIDE SUCCINATE PO SCH (08:22)
[2019-06-24] MEDS: THYROID, PORK 30 MG TAB PO SCH (08:24)
[2019-06-24] MEDS: TOPIRAMATE 25 MG TAB PO SCH ×2 (08:24→19:58)
[2019-06-24 10:13] LABS: Ionized Calcium 5.2 mg/dL (4.5-5.3)
[2019-06-24 10:24] LABS: ALT 11 U/L (4-34); AST 29 U/L (14-36); African American GFR (CKD) >90 (>60 ml/min/1.73 sqM); Albumin 3.6 g/dL (3.5-5.0); Alkaline Phosphatase 80 U/L (38-126); Anion Gap 7 mmol/L; Blood Urea Nitrogen 9 mg/dL (7-17); Calcium 9.2 mg/dL (8.4-10.2); Carbon Dioxide 21 mmol/L (22-30); Chloride 111 mmol/L (98-107); Glucose 74 mg/dL (74-99); Magnesium 1.8 mg/dL (1.6-2.3); Non-African American GFR(CKD) 80 (>60 ml/min/1.73 sqM); Phosphorus 3.8 mg/dL (2.5-4.5); Potassium 3.7 mmol/L (3.5-5.1); Sodium 139 mmol/L (137-145); Total Bilirubin 0.4 mg/dL (0.2-1.3); Total Protein 6.3 g/dL (6.3-8.2); Triglycerides 139 mg/dL (<150)
[2019-06-24] MEDS ORDERED: MVI, ADULT NO.4 WITH VIT K 10 ML, TRACE (CONC-1ML/DOSE) 1 ML in AMINO ACID 5%-D15W+LYTE... IV SCH ×3 (11:00)
[2019-06-24] MEDS: FAT EMULSION 20% 250 ML IV SCH (15:18)
[2019-06-24 17:09] LABS: Glucose,Whole Blood 69 mg/dL (75-99)
[2019-06-24 17:35] LABS: Glucose,Whole Blood 89 mg/dL (75-99)
[2019-06-24] MEDS: INSULIN ASPART (NovoLOG) 100 UNIT/ML VIAL SQ SCH (17:41)
--- NOTE | 2019-06-24 17:47 | HP ---
HISTORY AND PHYSICAL DATE OF ADMISSION: 06/23/2019. CHIEF COMPLAINT: Abdominal pain, intractable nausea and vomiting. HISTORY OF PRESENT ILLNESS: This is another recurrent admission for this 39-year-old white female who has gastroparesis. She is in and out of the hospital regularly with abdominal pain and vomiting. She has multiple caregivers including specialists in [place] and the [facility] as well as a private dental practice manager in the area. She once again started to have pain and vomiting several days ago which would not stop and she came back in. This is a recurrent pattern. She has seen industrial engineering manager here, who, of course, deferred to her tertiary institution specialists. REVIEW OF SYSTEMS: She has had no fever, chills, hematemesis, melena, renal failure, etc. Past medical history, family history, personal and social histories are all otherwise detailed in her prior hospital records, which are numerous. It does not seem to matter what approach is taken. She always winds up coming back in the hospital. She has been referred for palliative care, but that has not kept her at home either. Review of systems is otherwise unchanged, unremarkable. She does not smoke or drink. She has a jejunostomy tube and receives TPN at home as well. Nutrition always seems to be at least adequate. PHYSICAL EXAMINATION: Temperature 99.3 with a pulse of 85 and regular, respirations 16, blood pressure 125/85. She appears to be well developed, well nourished. Skin color is normal. Skin was warm and dry. Lymph nodes not enlarged. Head, ears, eyes, nose, mouth, and throat were normal. Neck veins not distended. Thyroid not enlarged. Chest is clear. Cardiac exam is normal sinus rhythm with no murmurs or extra sounds. Abdomen is soft, nontender with the jejunostomy in place. Extremities are normal. Neurologically she is intact. IMPRESSION: 1. Gastroparesis. 2. Intractable abdominal pain. 3. Intractable nausea and vomiting. PLAN: 1. Bed rest. 2. Analgesics. 3. Antiemetics. 4. Try to begin to get her back out of the hospital as soon as possible considering the Covid-19 situation in the community. MMODL / IJN: [id number] /
--- NOTE | 2019-06-24 17:47 | PN ---
PROGRESS NOTE DATE OF SERVICE: 06/24/2019. CHIEF COMPLAINT: Gastroparesis and intractable nausea and vomiting with pain. HISTORY OF PRESENT ILLNESS: This lady seems to be fairly comfortable. TPN has been restarted. PHYSICAL EXAMINATION: She is afebrile. Chest is clear. Cardiac exam is normal. Abdomen is soft. Bowel sounds are present. IMPRESSION: Gastroparesis with intractable pain and vomiting. PLAN: Resume TPN and her usual jejunostomy tube feedings along with antiemetics and analgesics. MMODL / IJN: [id number] /
[2019-06-25 00:51] LABS: Glucose,Whole Blood 95 mg/dL (75-99)
[2019-06-25] MEDS: INSULIN ASPART (NovoLOG) 100 UNIT/ML VIAL SQ SCH ×4 (01:09→19:11)
[2019-06-25] MEDS: HYDROmorphone 1 MG/ML 1 ML SYRINGE IVP PRN ×7 (02:24→22:03)
[2019-06-25] MEDS: PROMETHAZINE INJ 12.5 MG in SODIUM CHLORIDE 0.9% 50 ML IVPB PRN ×3 (02:24→22:03)
[2019-06-25] MEDS: diphenhydrAMINE 50 MG/ML 1 ML VIAL IVP PRN ×3 (05:34→17:08)
[2019-06-25] MEDS: LORazepam 2 MG/ML INJ IV PRN ×3 (05:34→17:09)
[2019-06-25 05:38] LABS: Glucose,Whole Blood 85 mg/dL (75-99)
[2019-06-25 07:52] LABS: African American GFR (CKD) >90 (>60 ml/min/1.73 sqM); Anion Gap 7 mmol/L; Blood Urea Nitrogen 6 mg/dL (7-17); Calcium 8.7 mg/dL (8.4-10.2); Carbon Dioxide 21 mmol/L (22-30); Chloride 111 mmol/L (98-107); Glucose 88 mg/dL (74-99); Magnesium 1.8 mg/dL (1.6-2.3); Non-African American GFR(CKD) >90 (>60 ml/min/1.73 sqM); Potassium 3.6 mmol/L (3.5-5.1); Sodium 139 mmol/L (137-145)
[2019-06-25] MEDS: ENOXAPARIN 80 MG/0.8 ML SYRINGE SQ SCH ×2 (09:32→20:39)
[2019-06-25] MEDS: ONDANSETRON 4 MG/2 ML VIAL IVP PRN (09:32)
[2019-06-25] MEDS: MONTELUKAST 10 MG TAB PO SCH (09:33)
[2019-06-25] MEDS: PANTOPRAZOLE 40 MG/10 ML VIAL IV SCH (09:33)
[2019-06-25] MEDS: THYROID, PORK 30 MG TAB PO SCH (09:34)
[2019-06-25] MEDS: SCOPOLAMINE 1.5MG/72HR PATCH TRANSDERM SCH (09:34)
[2019-06-25] MEDS: [UNRECOGNIZED DRUG - OTHER] PO SCH ×2 (09:35→17:31)
[2019-06-25] MEDS: TOPIRAMATE 25 MG TAB PO SCH ×2 (09:35→20:39)
[2019-06-25] MEDS: Linaclotide [Linzess] PO SCH (09:36)
[2019-06-25] MEDS: PRUCALOPRIDE SUCCINATE PO SCH (09:38)
[2019-06-25] MEDS: SODIUM CHLORIDE 0.9% 1,000 ML IV SCH ×2 (09:48→20:39)
[2019-06-25] MEDS: FAT EMULSION 20% 250 ML IV SCH (09:52)
[2019-06-25] MEDS ORDERED: 1: AMINO ACID 5%-D15W+LYTES*E* 1,000 ML 2: MVI, ADULT NO.4 WITH VIT K 10 ML, TRACE (CON IV SCH ×3 (11:00)
[2019-06-25 12:09] LABS: Glucose,Whole Blood 90 mg/dL (75-99)
[2019-06-25] MEDS: POTASSIUM CHLORIDE IV SCH ×5 (17:13)
[2019-06-25] MEDS: [UNRECOGNIZED DRUG - OTHER] IV SCH ×5 (17:13)
[2019-06-25] MEDS: MAGNESIUM SULFATE IV SCH ×5 (17:13)
[2019-06-25 17:36] LABS: Glucose,Whole Blood 98 mg/dL (75-99)
--- NOTE | 2019-06-25 19:50 | PN ---
PROGRESS NOTE CHIEF COMPLAINT: Intractable nausea, vomiting, and abdominal pain. HISTORY OF PRESENT ILLNESS: This lady is still having discomfort and some vomiting occasionally. Vital signs have been stable. PHYSICAL EXAMINATION: Color is good. Hydration is good. Chest is clear. Cardiac exam is normal. The abdomen is soft and nontender. IMPRESSION: Intractable nausea, vomiting, and pain due to gastroparesis. PLAN: Continue with current program. I had a discussion with her regarding the fact that she is safer at home if she can possibly leave the hospital given the COVID-19 virus situation. She did not feel that she is able to do this and I will encourage her tomorrow to leave the hospital, which I think she can tolerate. MMODL / IJN: [id number] /
[2019-06-26 00:06] LABS: Glucose,Whole Blood 101 mg/dL (75-99)
[2019-06-26] MEDS: INSULIN ASPART (NovoLOG) 100 UNIT/ML VIAL SQ SCH ×4 (00:08→17:40)
[2019-06-26] MEDS: LORazepam 2 MG/ML INJ IV PRN ×4 (00:17→22:53)
[2019-06-26] MEDS: diphenhydrAMINE 50 MG/ML 1 ML VIAL IVP PRN ×4 (00:17→22:53)
[2019-06-26] MEDS: HYDROmorphone 1 MG/ML 1 ML SYRINGE IVP PRN ×7 (02:46→21:36)
[2019-06-26] MEDS: ONDANSETRON 4 MG/2 ML VIAL IVP PRN (04:10)
[2019-06-26] MEDS: SODIUM CHLORIDE 0.9% 1,000 ML IV SCH ×3 (04:16→19:56)
[2019-06-26] MEDS: [UNRECOGNIZED DRUG - OTHER] IV SCH ×10 (05:03→21:07)
[2019-06-26] MEDS: MAGNESIUM SULFATE IV SCH ×10 (05:03→21:07)
[2019-06-26] MEDS: POTASSIUM CHLORIDE IV SCH ×10 (05:03→21:07)
[2019-06-26 06:00] LABS: Glucose,Whole Blood 97 mg/dL (75-99)
[2019-06-26] MEDS: PROMETHAZINE INJ 12.5 MG in SODIUM CHLORIDE 0.9% 50 ML IVPB PRN ×2 (06:00→20:01)
[2019-06-26 06:57] LABS: African American GFR (CKD) >90 (>60 ml/min/1.73 sqM); Anion Gap 6 mmol/L; Blood Urea Nitrogen 10 mg/dL (7-17); Calcium 8.7 mg/dL (8.4-10.2); Carbon Dioxide 21 mmol/L (22-30); Chloride 111 mmol/L (98-107); Glucose 90 mg/dL (74-99); Magnesium 2.2 mg/dL (1.6-2.3); Non-African American GFR(CKD) >90 (>60 ml/min/1.73 sqM); Phosphorus 4.1 mg/dL (2.5-4.5); Sodium 138 mmol/L (137-145)
[2019-06-26] MEDS: PANTOPRAZOLE 40 MG/10 ML VIAL IV SCH (08:48)
[2019-06-26] MEDS: ENOXAPARIN 80 MG/0.8 ML SYRINGE SQ SCH ×2 (08:49→20:01)
[2019-06-26] MEDS: TOPIRAMATE 25 MG TAB PO SCH ×2 (08:49→20:01)
[2019-06-26] MEDS: MONTELUKAST 10 MG TAB PO SCH (08:50)
[2019-06-26] MEDS: [UNRECOGNIZED DRUG - OTHER] PO SCH ×2 (08:52→18:29)
[2019-06-26] MEDS: Linaclotide [Linzess] PO SCH (08:52)
[2019-06-26] MEDS: PRUCALOPRIDE SUCCINATE PO SCH (08:52)
[2019-06-26] MEDS: THYROID, PORK 30 MG TAB PO SCH (12:11)
[2019-06-26] MEDS: FAT EMULSION 20% 250 ML IV SCH (12:11)
[2019-06-26 12:26] LABS: Glucose,Whole Blood 92 mg/dL (75-99)
[2019-06-26 16:55] LABS: Glucose,Whole Blood 105 mg/dL (75-99)
[2019-06-27 00:10] LABS: Glucose,Whole Blood 106 mg/dL (75-99)
[2019-06-27] MEDS: INSULIN ASPART (NovoLOG) 100 UNIT/ML VIAL SQ SCH ×4 (00:45→17:23)
[2019-06-27] MEDS: HYDROmorphone 1 MG/ML 1 ML SYRINGE IVP PRN ×7 (00:52→21:22)
[2019-06-27] MEDS ORDERED: ALTEPLASE 2 MG VIAL (CATHFLO) IV STA (04:09)
[2019-06-27] MEDS: SODIUM CHLORIDE 0.9% 1,000 ML IV SCH (05:09)
[2019-06-27] MEDS: LORazepam 2 MG/ML INJ IV PRN ×3 (05:59→20:03)
[2019-06-27] MEDS: diphenhydrAMINE 50 MG/ML 1 ML VIAL IVP PRN ×3 (05:59→20:03)
[2019-06-27 06:09] LABS: Glucose,Whole Blood 99 mg/dL (75-99)
[2019-06-27 08:09] LABS: African American GFR (CKD) >90 (>60 ml/min/1.73 sqM); Anion Gap 9 mmol/L; Blood Urea Nitrogen 12 mg/dL (7-17); Calcium 8.7 mg/dL (8.4-10.2); Carbon Dioxide 20 mmol/L (22-30); Chloride 109 mmol/L (98-107); Glucose 100 mg/dL (74-99); Magnesium 2.2 mg/dL (1.6-2.3); Non-African American GFR(CKD) >90 (>60 ml/min/1.73 sqM); Phosphorus 3.7 mg/dL (2.5-4.5); Potassium 4.2 mmol/L (3.5-5.1); Sodium 138 mmol/L (137-145)
[2019-06-27] MEDS: PANTOPRAZOLE 40 MG/10 ML VIAL IV SCH (09:07)
[2019-06-27] MEDS: MONTELUKAST 10 MG TAB PO SCH (09:10)
[2019-06-27] MEDS: ENOXAPARIN 80 MG/0.8 ML SYRINGE SQ SCH ×2 (09:10→20:03)
[2019-06-27] MEDS: THYROID, PORK 30 MG TAB PO SCH (09:11)
[2019-06-27] MEDS: TOPIRAMATE 25 MG TAB PO SCH ×2 (09:11→20:03)
[2019-06-27] MEDS: PRUCALOPRIDE SUCCINATE PO SCH (09:13)
[2019-06-27] MEDS: Linaclotide [Linzess] PO SCH (09:14)
[2019-06-27] MEDS: [UNRECOGNIZED DRUG - OTHER] PO SCH ×2 (09:14→18:35)
[2019-06-27] MEDS: PROMETHAZINE INJ 12.5 MG in SODIUM CHLORIDE 0.9% 50 ML IVPB PRN ×2 (09:46→18:31)
[2019-06-27 11:08] LABS: Glucose,Whole Blood 87 mg/dL (75-99)
[2019-06-27] MEDS: POTASSIUM CHLORIDE IV SCH ×10 (12:27→23:29)
[2019-06-27] MEDS: MAGNESIUM SULFATE IV SCH ×10 (12:27→23:29)
[2019-06-27] MEDS: FAT EMULSION 20% 250 ML IV SCH (12:27)
[2019-06-27] MEDS: [UNRECOGNIZED DRUG - OTHER] IV SCH ×10 (12:27→23:29)
[2019-06-27] MEDS: ONDANSETRON 4 MG/2 ML VIAL IVP PRN (12:28)
[2019-06-27 13:09] VITALS: BMI 30.4
--- NOTE | 2019-06-27 14:33 | PN ---
PROGRESS NOTE DATE OF SERVICE: 06/26/2019 CHIEF COMPLAINT: Intractable abdominal pain and vomiting. HISTORY OF PRESENT ILLNESS: This lady is still not doing well and still does not feel like she can go home. PHYSICAL EXAM: Her abdomen is soft and bowel sounds are present. Cardiac exam is normal. Chest is clear. IMPRESSION: 1. Gastroparesis. 2. Intractable abdominal pain. 3. Intractable vomiting. 4. Depression. PLAN: Discharge home as soon as she is capable of handling things, which she does not think she can at this point. MMODL / IJN: [id number] /
--- NOTE | 2019-06-27 14:39 | PN ---
PROGRESS NOTE DATE OF SERVICE: 06/27/2019 CHIEF COMPLAINT: Intractable abdominal pain and vomiting. HISTORY OF PRESENT ILLNESS: This lady is not doing any better. She still is having almost continues pain requiring IV analgesics. She states she is still vomiting, but this has not been seen by the nurses. She did have a problem with her port which pulled up last night and apparently has been cleared with an injection of tPA. PHYSICAL EXAMINATION: Vital signs are normal. She is afebrile. Color is good. Chest is clear. Cardiac exam is normal. Abdomen is soft, nontender. IMPRESSION: 1. Gastroparesis. 2. Intractable abdominal pain. 3. Intractable vomiting. 4. Blocked venous port. PLAN: 1. TPA to open up her port. 2. Discharge as soon as she is able to go and maintain at home. 3. She was told to tell the nurses every time she vomits so we can document that this is actually occurring. MMODL / IJN: [id number] /
[2019-06-27 16:45] LABS: Glucose,Whole Blood 95 mg/dL (75-99)
[2019-06-27 23:36] LABS: Glucose,Whole Blood 106 mg/dL (75-99)
[2019-06-28] MEDS: INSULIN ASPART (NovoLOG) 100 UNIT/ML VIAL SQ SCH ×4 (00:08→17:31)
[2019-06-28] MEDS: HYDROmorphone 1 MG/ML 1 ML SYRINGE IVP PRN ×8 (00:33→21:19)
[2019-06-28] MEDS: ONDANSETRON 4 MG/2 ML VIAL IVP PRN ×3 (00:34→23:47)
[2019-06-28] MEDS: diphenhydrAMINE 50 MG/ML 1 ML VIAL IVP PRN ×4 (01:57→19:52)
[2019-06-28] MEDS: LORazepam 2 MG/ML INJ IV PRN ×4 (01:57→19:57)
[2019-06-28] MEDS: SODIUM CHLORIDE 0.9% 1,000 ML IV SCH ×3 (03:27→12:30)
[2019-06-28] MEDS: PROMETHAZINE INJ 12.5 MG in SODIUM CHLORIDE 0.9% 50 ML IVPB PRN (05:44)
[2019-06-28 06:11] LABS: Glucose,Whole Blood 98 mg/dL (75-99)
[2019-06-28] MEDS: MONTELUKAST 10 MG TAB PO SCH (08:41)
[2019-06-28] MEDS: PANTOPRAZOLE 40 MG/10 ML VIAL IV SCH (08:41)
[2019-06-28] MEDS: SCOPOLAMINE 1.5MG/72HR PATCH TRANSDERM SCH (08:41)
[2019-06-28] MEDS: ENOXAPARIN 80 MG/0.8 ML SYRINGE SQ SCH ×2 (08:42→19:51)
[2019-06-28] MEDS: Linaclotide [Linzess] PO SCH (08:44)
[2019-06-28] MEDS: PRUCALOPRIDE SUCCINATE PO SCH (08:44)
[2019-06-28] MEDS: [UNRECOGNIZED DRUG - OTHER] PO SCH ×2 (08:46→17:32)
[2019-06-28] MEDS: THYROID, PORK 30 MG TAB PO SCH (08:48)
[2019-06-28] MEDS: TOPIRAMATE 25 MG TAB PO SCH ×2 (08:49→19:51)
[2019-06-28 09:34] LABS: African American GFR (CKD) >90 (>60 ml/min/1.73 sqM); Anion Gap 11 mmol/L; Blood Urea Nitrogen 15 mg/dL (7-17); Calcium 9.2 mg/dL (8.4-10.2); Carbon Dioxide 19 mmol/L (22-30); Chloride 109 mmol/L (98-107); Glucose 81 mg/dL (74-99); Magnesium 2.2 mg/dL (1.6-2.3); Non-African American GFR(CKD) >90 (>60 ml/min/1.73 sqM); Phosphorus 4.2 mg/dL (2.5-4.5); Potassium 4.9 mmol/L (3.5-5.1); Sodium 139 mmol/L (137-145)
[2019-06-28] MEDS: FAT EMULSION 20% 250 ML IV SCH (10:49)
[2019-06-28 11:22] LABS: Glucose,Whole Blood 94 mg/dL (75-99)
--- NOTE | 2019-06-28 14:04 | PN ---
PROGRESS NOTE CHIEF COMPLAINT: Gastroparesis. HISTORY OF PRESENT ILLNESS: This lady is still having about the same level of pain and she is still vomiting according to her history. PHYSICAL EXAMINATION: Chest is clear. Cardiac exam is normal. The abdomen is soft and nontender. There is some developing maceration and cellulitis around the jejunostomy tube. IMPRESSION: 1. Gastroparesis. 2. Intractable abdominal pain. 3. Intractable vomiting. PLAN: She is encouraged to try to resume her care at home given the situation with the COVID- 19 virus, but feels she is unable to go. Plan is to reassess things in 24 hours. MMODL / IJN: [id number] /
[2019-06-28] MEDS: MAGNESIUM SULFATE IV SCH ×5 (14:37)
[2019-06-28] MEDS: POTASSIUM CHLORIDE IV SCH ×5 (14:37)
[2019-06-28] MEDS: [UNRECOGNIZED DRUG - OTHER] IV SCH ×5 (14:37)
[2019-06-28 16:55] LABS: Glucose,Whole Blood 115 mg/dL (75-99)
[2019-06-29 00:15] LABS: Glucose,Whole Blood 107 mg/dL (75-99)
[2019-06-29] MEDS: INSULIN ASPART (NovoLOG) 100 UNIT/ML VIAL SQ SCH ×5 (00:15→23:59)
[2019-06-29] MEDS: HYDROmorphone 1 MG/ML 1 ML SYRINGE IVP PRN ×8 (00:17→23:52)
[2019-06-29] MEDS: SODIUM CHLORIDE 0.9% 1,000 ML IV SCH ×3 (01:43→22:00)
[2019-06-29] MEDS: LORazepam 2 MG/ML INJ IV PRN ×4 (01:43→22:00)
[2019-06-29] MEDS: 1: AMINO ACID 5%-D15W+LYTES*E* 1,000 ML 2: MVI, ADULT NO.4 WITH VIT K 10 ML, TRACE (CON IV SCH ×14 (01:44→16:48)
[2019-06-29] MEDS: diphenhydrAMINE 50 MG/ML 1 ML VIAL IVP PRN ×4 (01:44→22:00)
[2019-06-29] MEDS: [UNRECOGNIZED DRUG - OTHER] IV SCH ×5 (05:21)
[2019-06-29] MEDS: MAGNESIUM SULFATE IV SCH ×5 (05:21)
[2019-06-29] MEDS: POTASSIUM CHLORIDE IV SCH ×5 (05:21)
[2019-06-29 05:59] LABS: Glucose,Whole Blood 108 mg/dL (75-99)
[2019-06-29] MEDS: PANTOPRAZOLE 40 MG/10 ML VIAL IV SCH (07:32)
[2019-06-29] MEDS: MONTELUKAST 10 MG TAB PO SCH (07:33)
[2019-06-29] MEDS: ENOXAPARIN 80 MG/0.8 ML SYRINGE SQ SCH ×2 (07:33→22:00)
[2019-06-29] MEDS: TOPIRAMATE 25 MG TAB PO SCH ×2 (07:34→22:00)
[2019-06-29] MEDS: THYROID, PORK 30 MG TAB PO SCH (07:34)
[2019-06-29] MEDS: [UNRECOGNIZED DRUG - OTHER] PO SCH ×2 (07:35→16:54)
[2019-06-29] MEDS: Linaclotide [Linzess] PO SCH (07:36)
[2019-06-29] MEDS: PRUCALOPRIDE SUCCINATE PO SCH (07:37)
[2019-06-29 07:55] LABS: African American GFR (CKD) >90 (>60 ml/min/1.73 sqM); Anion Gap 8 mmol/L; Blood Urea Nitrogen 14 mg/dL (7-17); Carbon Dioxide 19 mmol/L (22-30); Chloride 110 mmol/L (98-107); Glucose 94 mg/dL (74-99); Non-African American GFR(CKD) >90 (>60 ml/min/1.73 sqM); Phosphorus 4.7 mg/dL (2.5-4.5); Potassium 4.8 mmol/L (3.5-5.1); Sodium 137 mmol/L (137-145)
[2019-06-29] MEDS: FAT EMULSION 20% 250 ML IV SCH (09:07)
[2019-06-29 12:28] LABS: Glucose,Whole Blood 110 mg/dL (75-99)
[2019-06-29] MEDS: ONDANSETRON 4 MG/2 ML VIAL IVP PRN (14:17)
--- NOTE | 2019-06-29 15:25 | PN ---
PROGRESS NOTE CHIEF COMPLAINT: Intractable abdominal pain and vomiting. HISTORY OF PRESENT ILLNESS: This lady is still having the same issues. She has become quite depressed and is crying every time she is seen on rounds. She is particularly upset today because her son's birthday is tomorrow. She has been in counseling in the past and will ask Psychiatry to see her. PHYSICAL EXAMINATION: Unchanged. Good hydration and color and chest is clear and cardiac exam is normal. Bowel sounds are present. IMPRESSION: 1. Gastroparesis. 2. Intractable nausea and vomiting. 3. Intractable pain. 4. Depression. PLAN: Continue with current management, along with Psych consult. MMODL / IJN: [id number] /
[2019-06-29 17:47] LABS: Glucose,Whole Blood 106 mg/dL (75-99)
[2019-06-29 20:11] LABS: Glucose,Whole Blood 107 mg/dL (75-99)
[2019-06-29 23:57] LABS: Glucose,Whole Blood 117 mg/dL (75-99)
[2019-06-30] MEDS: diphenhydrAMINE 50 MG/ML 1 ML VIAL IVP PRN ×4 (03:46→23:17)
[2019-06-30] MEDS: LORazepam 2 MG/ML INJ IV PRN ×4 (03:46→23:17)
[2019-06-30] MEDS: HYDROmorphone 1 MG/ML 1 ML SYRINGE IVP PRN ×6 (03:50→21:31)
[2019-06-30 05:52] LABS: Glucose,Whole Blood 116 mg/dL (75-99)
[2019-06-30] MEDS: INSULIN ASPART (NovoLOG) 100 UNIT/ML VIAL SQ SCH ×3 (05:55→17:32)
[2019-06-30 07:28] LABS: African American GFR (CKD) >90 (>60 ml/min/1.73 sqM); Anion Gap 7 mmol/L; Blood Urea Nitrogen 14 mg/dL (7-17); Calcium 8.9 mg/dL (8.4-10.2); Carbon Dioxide 22 mmol/L (22-30); Chloride 109 mmol/L (98-107); Glucose 104 mg/dL (74-99); Magnesium 2.1 mg/dL (1.6-2.3); Non-African American GFR(CKD) >90 (>60 ml/min/1.73 sqM); Phosphorus 3.7 mg/dL (2.5-4.5); Potassium 4.1 mmol/L (3.5-5.1); Sodium 138 mmol/L (137-145)
[2019-06-30] MEDS: 1: AMINO ACID 5%-D15W+LYTES*E* 1,000 ML 2: MVI, ADULT NO.4 WITH VIT K 10 ML, TRACE (CON IV SCH ×12 (08:20→21:15)
[2019-06-30] MEDS: SODIUM CHLORIDE 0.9% 1,000 ML IV SCH ×2 (08:21→16:50)
[2019-06-30] MEDS: MONTELUKAST 10 MG TAB PO SCH (08:23)
[2019-06-30] MEDS: THYROID, PORK 30 MG TAB PO SCH (08:23)
[2019-06-30] MEDS: PANTOPRAZOLE 40 MG/10 ML VIAL IV SCH (08:24)
[2019-06-30] MEDS: FAT EMULSION 20% 250 ML IV SCH (08:24)
[2019-06-30] MEDS: TOPIRAMATE 25 MG TAB PO SCH ×2 (08:24→21:01)
[2019-06-30] MEDS: ENOXAPARIN 80 MG/0.8 ML SYRINGE SQ SCH ×2 (08:25→21:25)
[2019-06-30] MEDS: PRUCALOPRIDE SUCCINATE PO SCH (08:27)
[2019-06-30] MEDS: [UNRECOGNIZED DRUG - OTHER] PO SCH ×2 (08:27→16:50)
[2019-06-30] MEDS: Linaclotide [Linzess] PO SCH (08:28)
[2019-06-30] MEDS: ONDANSETRON 4 MG/2 ML VIAL IVP PRN (08:40)
[2019-06-30 11:29] LABS: Glucose,Whole Blood 107 mg/dL (75-99)
--- NOTE | 2019-06-30 12:08 | P.CN ---
Psychiatric Consult - . Consult date: 06/30/19 Consult:: IDENTIFYING DATA: She is a 39-year-old female who has a history of gastroparesis with multiple hospitalizations. [facility] with complaint of abdominal pain and intractable nausea and vomi ting. Her attending consulted psychiatry because she was "depressed" and "crying every time she is seen on rounds." HISTORY OF PRESENT ILLNESS: I reviewed the medical record and interviewed the patient. She described a six-year history of digestive difficulties requiring frequent hospitalizations and evaluations by multiple specialist. I explained the reason for the consult and her attendings concerned about depression. She initially denied that she felt depressed but as we talked about her physical condition and the impact of her illness and her life she became acutely distressed. She also related to additional stress. A close friend of hers was placed on a ventilator 2 days ago her competitions from [employer]. She admitted to most symptoms of depression but denied that she had lost ability to enjoy herself. She spoke proudly of her children and how she enjoys spending time with her family. She misses her children and is most concerned because tomorrow is the birthday of her oldest. She feels guilty that her illness is taken her from the family and finds herself repeatedly having to explain the children the reason she is hospitalized. In addition to the guilt, she described difficulty with sleep onset and light fragmented sleep. She denied feeling tired and fatigued during the day. She is restless and her has complained to her about how she cannot remain seated to watch a movie or a television show. She denied feeling hopeless, helpless or worthless. She denied experiencing suicidal ideation or wishes. She denied persistent anxiety that she is unable to control. She denied periods of increased anxiety consistent with a panic attack. She denied periods of elevated mood or sustained irritability consistent with glenna or hypomania. She denied a history of such psychotic symptoms as hallucinations, delusions or thought disturbances. She does not drink or use drugs to get high, help her sleep or change her mood. PAST PSYCHIATRIC HISTORY: She was meeting with a therapist at [facility], for the last 5 years. They meet on a biweekly basis. She denied that she is met with a psychiatrist or been prescribed antidepressant medications. She denied history of psychiatric hospitalizations or suicide attempts. PAST MEDICAL HISTORY: See medical admission history. ALLERGIES: metoclopramide, prochlorperazine. SUBSTANCE USE HISTORY: She denied a history of alcohol or drug use problems.. FAMILY PSYCHIATRIC/SUBSTANCE USE HISTORY: Her sister has history of ADHD. SOCIAL HISTORY: She rwas raised in [place] by her mother and stepfather. She graduated from high school. She's been for 15 years. She has 3 children ages 8, 10 and 12. Her is employed full-time as a [employer] and dramatic agent. She is currently unemployed.. MENTAL STATUS EXAM: She presented as a casually groomed 39-year-old female who was pleasant on approach. She made eye contact and attended to the interview. She had no distinguishing features or prominent physical modalities. She had a bright but labile facial expression. She was alert and oriented to person, place and time. She was restless and fidgety throughout the interview. Her speech was spontaneous with normal rate, rhythm and volume. She had no articulation difficulties. Her affect was depressed but reactive. At times it was intense but not inappropriate. She cried briefly during the interview. She denied suicidal ideation and wishes. She denied homicidal ideation. She denied feeling hopeless, helpless or worthless. She ruminated about her physical illness. Impact of her illness on her family. She denied ideas reference, paranoid ideation or delusional thoughts. Her thinking was abstract and associations were coherent, logical and goal directed. She denied hallucinations did not appear to responding to internal stimuli. IMPRESSIONS: She is 39-year-old female admitted to the [facility] for treatment of gastroparesis. Her attending consulted psychiatry concerned about depression and crying spells. The patient described the symptoms of depression including guilt, restlessness, impairment in concentration but denied decrease in energy, anhedonia or thoughts of or suicide. There is no history of drug or alcohol problems. There is no history of glenna or hypomania suggestive of a bipolar illness. She's been involved with individual therapy for the last 5 years and plans to continue meeting with therapist. This to indication for transfer to the psychiatric hospital. PLAN: She should continue meeting with her therapist as an outpatient. She may benefit from a trial of antidepressant. She was unwilling to consent to antidepressant without first speaking with her . Will follow. 06/30/19 11:47
[2019-06-30] MEDS: PROMETHAZINE INJ 12.5 MG in SODIUM CHLORIDE 0.9% 50 ML IVPB PRN (12:23)
--- NOTE | 2019-06-30 14:01 | PN ---
PROGRESS NOTE DATE OF SERVICE: 06/30/2019. CHIEF COMPLAINT: Gastroparesis, vomiting and intractable pain. HISTORY OF PRESENT ILLNESS: This lady is still having the same amount of pain and is still vomiting. A consult was placed to Psychiatry, but they have not seen her for her depression. PHYSICAL EXAMINATION: She is slightly pale. Chest is clear. Cardiac exam is normal. Abdomen is soft and there has been no change otherwise. IMPRESSION: 1. Gastroparesis with intractable nausea, vomiting, and pain. 2. Depression. PLAN: No change in her current program. We await the Psych consult. MMODL / IJN: [id number] /
[2019-06-30 16:48] LABS: Glucose,Whole Blood 105 mg/dL (75-99)
[2019-07-01 00:10] LABS: Glucose,Whole Blood 114 mg/dL (75-99)
[2019-07-01] MEDS: INSULIN ASPART (NovoLOG) 100 UNIT/ML VIAL SQ SCH ×4 (00:17→17:16)
[2019-07-01] MEDS: HYDROmorphone 1 MG/ML 1 ML SYRINGE IVP PRN ×8 (00:46→23:47)
[2019-07-01] MEDS: SODIUM CHLORIDE 0.9% 1,000 ML IV SCH ×3 (02:10→22:50)
[2019-07-01] MEDS: diphenhydrAMINE 50 MG/ML 1 ML VIAL IVP PRN ×4 (05:36→23:45)
[2019-07-01] MEDS: LORazepam 2 MG/ML INJ IV PRN ×4 (05:36→23:46)
[2019-07-01 06:24] LABS: Glucose,Whole Blood 100 mg/dL (75-99)
[2019-07-01 06:52] LABS: African American GFR (CKD) >90 (>60 ml/min/1.73 sqM); Anion Gap 7 mmol/L; Blood Urea Nitrogen 13 mg/dL (7-17); Calcium 8.7 mg/dL (8.4-10.2); Carbon Dioxide 21 mmol/L (22-30); Chloride 110 mmol/L (98-107); Glucose 99 mg/dL (74-99); Non-African American GFR(CKD) >90 (>60 ml/min/1.73 sqM); Phosphorus 3.7 mg/dL (2.5-4.5); Potassium 4.2 mmol/L (3.5-5.1); Sodium 138 mmol/L (137-145)
[2019-07-01] MEDS: PRUCALOPRIDE SUCCINATE PO SCH (07:44)
[2019-07-01] MEDS: Linaclotide [Linzess] PO SCH (07:44)
[2019-07-01] MEDS: ENOXAPARIN 80 MG/0.8 ML SYRINGE SQ SCH ×2 (07:44→20:51)
[2019-07-01] MEDS: [UNRECOGNIZED DRUG - OTHER] PO SCH ×2 (07:44→16:27)
[2019-07-01] MEDS: THYROID, PORK 30 MG TAB PO SCH (07:45)
[2019-07-01] MEDS: PANTOPRAZOLE 40 MG/10 ML VIAL IV SCH (07:45)
[2019-07-01] MEDS: MONTELUKAST 10 MG TAB PO SCH (07:45)
[2019-07-01] MEDS: SCOPOLAMINE 1.5MG/72HR PATCH TRANSDERM SCH (07:45)
[2019-07-01] MEDS: TOPIRAMATE 25 MG TAB PO SCH ×2 (07:45→20:51)
[2019-07-01] MEDS: ONDANSETRON 4 MG/2 ML VIAL IVP PRN ×2 (07:49→20:34)
[2019-07-01] MEDS: FAT EMULSION 20% 250 ML IV SCH (08:00)
[2019-07-01] MEDS: 1: AMINO ACID 5%-D15W+LYTES*E* 1,000 ML 2: MVI, ADULT NO.4 WITH VIT K 10 ML, TRACE (CON IV SCH ×12 (08:57→22:45)
[2019-07-01 11:46] LABS: Glucose,Whole Blood 123 mg/dL (75-99)
[2019-07-01] MEDS: PROMETHAZINE INJ 12.5 MG in SODIUM CHLORIDE 0.9% 50 ML IVPB PRN (14:19)
--- NOTE | 2019-07-01 14:47 | P.CON ---
Consult Note - . Consult date: 07/01/19 Assessment/Plan:: Clinical Problems: Minor depressive disorder Interim history: I reviewed the medical record and interviewed the patient. She spoke with her yesterday about myrecommendation for an antidepressant. She stated that he was "shocked" because he never considered as being depressed. She stated he is aware of depression antidepressants because she has taken his medications "for several years". We again discussed the reason for the recommendation; in particular that she has many symptoms of depression with the exception of anhedonia. She continues to ruminate over separation from her children and identified this separation as a primary cause of her depressive feelings. Mental status exam: She presented as a casually groomed 39-year-old female who was pleasant on approach. She made eye contact and attended to the interview. She had a blunted but bright facial expression. She showed slight psychomotor retardation but no abnormal movements. Her speech was spontaneous with normal rate and rhythm. Affect was depressed but reactive. She denied suicidal ideation and wishes. She denied feeling hopeless, helpless or worthless. Her thinking was abstract and associations were coherent and logical. Assessment: I don't believe that she meets criteria for major depressive disorder but she has some symptoms of depression that was suggests of minor depression or depression secondary to her chronic medical illness. She may benefit from an antidepressant but is not necessary to start the medication while she was inpatient. She definitely does not need transfer to the psychiatric unit. Plan: Continue with outpatient mental health services. Her outpatient clinic has access to psychiatric services and she can talk about antidepressants with their consulting psychiatrist. Psychiatry will sign off the case.
[2019-07-01 17:15] LABS: Glucose,Whole Blood 122 mg/dL (75-99)
[2019-07-02 00:09] LABS: Glucose,Whole Blood 112 mg/dL (75-99)
[2019-07-02] MEDS: INSULIN ASPART (NovoLOG) 100 UNIT/ML VIAL SQ SCH ×3 (00:16→12:05)
[2019-07-02] MEDS: HYDROmorphone 1 MG/ML 1 ML SYRINGE IVP PRN ×3 (04:14→10:49)
[2019-07-02 05:53] LABS: Glucose,Whole Blood 99 mg/dL (75-99)
[2019-07-02] MEDS: diphenhydrAMINE 50 MG/ML 1 ML VIAL IVP PRN ×2 (05:59→12:20)
[2019-07-02] MEDS: LORazepam 2 MG/ML INJ IV PRN ×2 (06:00→12:20)
[2019-07-02 06:50] LABS: African American GFR (CKD) >90 (>60 ml/min/1.73 sqM); Anion Gap 6 mmol/L; Calcium 8.6 mg/dL (8.4-10.2); Carbon Dioxide 19 mmol/L (22-30); Chloride 111 mmol/L (98-107); Glucose 104 mg/dL (74-99); Non-African American GFR(CKD) >90 (>60 ml/min/1.73 sqM); Sodium 136 mmol/L (137-145)
[2019-07-02 06:58] LABS: Blood Urea Nitrogen 13 mg/dL (7-17); Potassium 4.8 mmol/L (3.5-5.1)
[2019-07-02] MEDS: [UNRECOGNIZED DRUG - OTHER] PO SCH (07:37)
[2019-07-02] MEDS: Linaclotide [Linzess] PO SCH (07:37)
[2019-07-02] MEDS: THYROID, PORK 30 MG TAB PO SCH (07:37)
[2019-07-02] MEDS: PANTOPRAZOLE 40 MG/10 ML VIAL IV SCH (07:38)
[2019-07-02] MEDS: TOPIRAMATE 25 MG TAB PO SCH (07:38)
[2019-07-02] MEDS: MONTELUKAST 10 MG TAB PO SCH (07:38)
[2019-07-02] MEDS: PRUCALOPRIDE SUCCINATE PO SCH (07:38)
[2019-07-02] MEDS: SODIUM CHLORIDE 0.9% 1,000 ML IV SCH (07:38)
[2019-07-02] MEDS: ONDANSETRON 4 MG/2 ML VIAL IVP PRN (07:55)
[2019-07-02] MEDS: ENOXAPARIN 80 MG/0.8 ML SYRINGE SQ SCH (08:55)
[2019-07-02] MEDS: FAT EMULSION 20% 250 ML IV SCH (10:50)
[2019-07-02] MEDS: PROMETHAZINE INJ 12.5 MG in SODIUM CHLORIDE 0.9% 50 ML IVPB PRN (10:51)
[2019-07-02 11:51] LABS: Glucose,Whole Blood 90 mg/dL (75-99)
[2019-07-02] MEDS: 1: AMINO ACID 5%-D15W+LYTES*E* 1,000 ML 2: MVI, ADULT NO.4 WITH VIT K 10 ML, TRACE (CON IV SCH ×6 (12:04)
[2019-07-02 12:16] VITALS: BP 117/68; PULSE 92; RESP 18; TEMP 99.7
--- NOTE | 2019-07-03 16:04 | PN ---
PROGRESS NOTE DATE OF SERVICE: 07/01/2019 CHIEF COMPLAINT: Persistent nausea, vomiting, abdominal pain secondary to gastroparesis. HISTORY OF PRESENT ILLNESS: This lady is just about the same. She is still having episodes of vomiting 2-3 times a day, and her pain is about the same. She is very depressed. She has been referred to Psychiatry, but they have not seen her yet. PHYSICAL EXAMINATION: Vital signs are normal. Chest is clear. Cardiac exam is normal. Abdomen is soft. Bowel sounds are present. IMPRESSION: 1. Gastroparesis. 2. Direct able abdominal pain. 3. Intractable vomiting. 4. Depression. PLAN: Continuing continually trying to encourage her to go home. Her condition at home is usually not a lot different than how she presented to the hospital. MMODL / IJN: [id number] /
--- NOTE | 2019-07-03 16:25 | DS ---
DISCHARGE SUMMARY CHIEF COMPLAINT: Persistent abdominal pain and vomiting. HISTORY OF PRESENT ILLNESS AND PHYSICAL EXAM: Details of this lady's history and physical can be found in the initial workup. LABORATORY STUDIES: While she was in a hospital she had laboratory studies, details of which can be found in the laboratory section of her chart. COURSE IN HOSPITAL: After admission, placed on bedrest started intravenous fluids, TPN, and J jejunostomy tube feedings along with the usual regimen of antiemetics, IV narcotics for pain, and her usual medications as prescribed to the [facility]. She followed her usual inpatient course with intermittent episodes of vomiting, intractable pain, and depression. She was finally stable enough that she could go home and felt that she was able to be discharged on the . I got a call from her , wanting her to be kept in the hospital, it was explained that she was ready to go home and felt that she could along with the fact that there was increased risk of being in the hospital setting during the COVID-19 pandemic. Will follow her up at home with [facility]. FINAL DIAGNOSES: 1. Gastroparesis. 2. Intractable nausea and vomiting. 3. Intractable abdominal pain. 4. Depression. OPERATIONS: None. CONSULTATION: She is improved. MMODL / IJN: [id number] /
== END 2019-07-02 13:15 | disposition home health service (06) | DRG 392 ==
LOC: EC 11:33 → 5NMEDONC 14:04 → OBSVTOIN 06-25 15:17 → 6NMEDSUR 06-29 12:01
PROVIDERS: ADMIT Family Medicine; ATTEND Family Medicine
PROC: 3E0G76Z Introduction of Nutritional Substance into Upper GI, Via Natural or Artificial Opening (ICD-10-PCS; principal; 2019-06-25)
PROC: 05HA33Z Insertion of Infusion Device into Left Brachial Vein, Percutaneous Approach (ICD-10-PCS; 2019-06-26 11:10)
DX: K31.84 Gastroparesis (principal); E03.9 Hypothyroidism, unspecified; E86.0 Dehydration; F32.9 Major depressive disorder, single episode, unspecified; Z82.49 Family history of ischemic heart disease and other diseases of the circulatory system; Z86.711 Personal history of pulmonary embolism; Z86.718 Personal history of other venous thrombosis and embolism; Z56.0 Unemployment, unspecified; Z88.8 Allergy status to other drugs, medicaments and biological substances; Z81.8 Family history of other mental and behavioral disorders; Z93.4 Other artificial openings of gastrointestinal tract status
CPT/HCPCS: 36410; 36415; 76937; 80048; 80053; 82330; 83735; 84100; 84478; 85025; 96361; 96374; 96375; 96376; 99284; 99285

== ENCOUNTER 2019-07-16 12:16 | Emergency (ER) | payer BC ==
[2019-07-16 12:33] VITALS: RESP 18
--- NOTE | 2019-07-16 14:14 | US ---
EXAMINATION TYPE: US venous doppler duplex UE LT DATE OF EXAM: 07/16/2019 COMPARISON: CLINICAL HISTORY: pain at port . On blood thinners. Hx of blood clot in right arm. No redness. No swelling. Port pain. Port is flushing. SIDE PERFORMED: Left Port appears to be identified within the vessel. Left Arm: Negative for DVT. Area of port scanned, no masses or fluid collections visualized. IMPRESSION: 1. Left upper extremity ultrasound negative for deep venous thrombosis. 2. No suspicious underlying fluid collections or solid lesions by ultrasound.
--- NOTE | 2019-07-16 14:16 | ED ---
Chest Pain HPI - General Chief Complaint: Chest Pain Stated Complaint: pain by port Time Seen by Provider: 07/16/19 12:39 Source: patient, family, RN notes reviewed, old records reviewed Mode of arrival: ambulatory Limitations: no limitations - History of Present Illness Initial Comments: This Patient is a 39-year-old female well-known to the emergency department. She presents today with complaints of pain around her "port site". She states it is not red or erythematous. He shouldn't reports the pain is worse with movement. She reports that it was flushing yesterday but seemed to be somewhat abnormal after her TPN. She did flush and then with a Hep-Lock. She states she takes her daily Lovenox injections. She denies any nausea or vomiting. Denies any associated chest pain. She does report some pain with range of motion of the left arm and going towards her neck and shoulder. She denies any other complaints at this time. She denies any fall or trauma. - Related Data Home Medications Medication Instructions Recorded Confirmed Montelukast Chew [Singulair] 10 mg PO DAILY 02/02/18 07/16/19 Topiramate [Trokendi Xr] 50 mg PO HS 07/18/18 07/16/19 Thyroid,Pork [[place] Thyroid] 60 mg PO Q48H 10/06/18 07/16/19 Thyroid,Pork [[place] Thyroid] 90 mg PO Q48H 10/06/18 07/16/19 Prucalopride Succinate [Motegrity] 2 mg PO DAILY 01/14/19 07/16/19 oxyCODONE HCL [oxyCODONE HCL (IR)] 10 mg PO Q8H PRN 04/20/19 07/16/19 Linaclotide [Linzess] 290 mcg PO DAILY 05/24/19 07/16/19 Tegaserod Hydrogen Maleate 6 mg PO BID 05/24/19 07/16/19 [Zelnorm] Enoxaparin [Lovenox] 80 mg SQ Q12H 06/08/19 07/16/19 Phenergen 12.5 mg IV Q8HR PRN 06/08/19 07/16/19 Ondansetron 4mg 4 mg IV Q8H PRN 06/23/19 07/16/19 Previous Rx's Medication Instructions Recorded Scopolamine 1.5MG/72Hr Patch 1 patch TRANSDERM Q72H #10 patch 07/31/18 [TransDerm Scop] Allergies Allergy/AdvReac Type Severity Reaction Status Date / Time metoclopramide [From Reglan] AdvReac Mild jittery Verified 07/16/19 14:40 prochlorperazine AdvReac Mild JITTERY Verified 07/16/19 14:40 [From Compazine] Review of Systems ROS Statement: Those systems with pertinent positive or pertinent negative responses have been documented in the HPI. ROS Other: All systems not noted in ROS Statement are negative. Past Medical History Past Medical History: Deep Vein Thrombosis (DVT), GERD/Reflux, Pulmonary Embolus (PE), Thyroid Disorder Additional Past Medical History / Comment(s): Other hx:Idiopathic gastroparesis, takes little in orally-has J tube for feedings-currently on hold and receiving TPN, chronic abdominal pain, R pulmonary embolism 5-2017, dvt R upper extremity 2018, pancreatitis once in 2017-thought stone somewhere, hypothyroid, chronic anemia, sinus problems, migraine. 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 J tube replaced-last replace in November or December 2018, piccs, mediport insertion Past Anesthesia/Blood Transfusion Reactions: No Reported Reaction Past Psychological History: Depression Smoking Status: Never smoker Past Alcohol Use History: None Reported Past Drug Use History: None Reported - Past Family History Father Family Medical History: Hypertension Additional Family Medical History / Comment(s): Father is 57 yrs old.. Mother Family Medical History: No Reported History Additional Family Medical History / Comment(s): Mother is 57yrs old. General Exam - General Exam Comments Initial Comments: 39 year old female Limitations: no limitations General appearance: alert, in no apparent distress Head exam: Present: atraumatic, normocephalic, normal inspection Eye exam: Present: normal appearance, PERRL, EOMI. Absent: scleral icterus, conjunctival injection, periorbital swelling ENT exam: Present: normal exam, mucous membranes moist Neck exam: Present: normal inspection. Absent: tenderness, meningismus, lymphadenopathy Respiratory exam: Present: normal lung sounds bilaterally, other (Well-appearing IV port site. No erythema or swelling. Reports reproducible pain with abduction and extension of L arm ). Absent: respiratory distress, wheezes, rales, rhonchi, stridor Cardiovascular Exam: Present: regular rate, normal rhythm, normal heart sounds. Absent: systolic murmur, diastolic murmur, rubs, gallop, clicks GI/Abdominal exam: Present: soft, normal bowel sounds. Absent: distended, tenderness, guarding, rebound, rigid Extremities exam: Present: normal inspection, full ROM, normal capillary refill. Absent: tenderness, pedal edema, joint swelling, calf tenderness Back exam: Present: normal inspection Neurological exam: Present: alert, oriented X3, CN II-XII intact Psychiatric exam: Present: normal affect, normal mood Skin exam: Present: warm, dry, intact, normal color. Absent: rash Course Vital Signs 07/16/19 07/16/19 12:29 14:53 Temperature 98.3 F 98.1 F Pulse Rate 81 76 Respiratory 18 18 Rate Blood Pressure 124/78 122/74 O2 Sat by Pulse 100 99 Oximetry Chest Pain MDM - MDM 39-year-old female presents today with pain around her port site for the past week. She reports pain worse with range of motion of her left arm. She states it radiated towards her neck. She is mainly concern for a clot. She does take Lovenox injections. Her port was flushing well yesterday. She is just received TPN. At this time patient's ultrasound is negative for clot. I discussed the seems more likely musculoskeletal with reproducible pain with range of motion of the left shoulder. Patient advised to follow-up with primary care doctor. The port was flushed in emergency department and appears well. US Left upper extremity ultrasound is negative for DVT. No underlying fluid collection or lesion by ultrasound. Disposition Clinical Impression: Chest wall pain Disposition: HOME SELF-CARE Condition: Good Instructions (If sedation given, give patient instructions): Costochondritis (ED) Additional Instructions: Patient is a take anti-inflammatory medicine. Follow-up with your PCP. Return to the ED if any alarming signs or symptoms occur. Is patient prescribed a controlled substance at d/c from ED?: No Referrals: Wong Adame MD [Primary Care Provider] - 1-2 days Time of Disposition: 14:38
[2019-07-16 14:54] VITALS: BP 122/74; PULSE 76; TEMP 98.1
== END 2019-07-16 14:53 | disposition home or self-care (01) ==
LOC: EC 12:16
DX: R07.89 Other chest pain (principal); E03.9 Hypothyroidism, unspecified; Z79.890 Hormone replacement therapy; Z79.01 Long term (current) use of anticoagulants; Z79.899 Other long term (current) drug therapy; Z88.8 Allergy status to other drugs, medicaments and biological substances; Z86.718 Personal history of other venous thrombosis and embolism; Z86.711 Personal history of pulmonary embolism
CPT/HCPCS: 93971; 99285; 96374; J1642

== ENCOUNTER 2019-07-21 18:13 | Emergency (ER) | payer BC ==
[2019-07-21 18:19] VITALS: TEMP 98.6
[2019-07-21] MEDS ORDERED: HYDROmorphone 0.5 MG/0.5 ML SYRINGE IVP STA ×2 (18:45→19:41)
[2019-07-21] MEDS ORDERED: cefTRIAXone IN SWFI 1,000 MG/10 ML SYRINGE IVP STA (18:45)
[2019-07-21] MEDS ORDERED: ONDANSETRON 4 MG/2 ML VIAL IVP STA (18:45)
[2019-07-21] MEDS ORDERED: SODIUM CHLORIDE 0.9% 1,000 ML IV ONE (18:45)
[2019-07-21 18:47] LABS: Appearance,Urine Clear (Clear); Basophils % (A) 1 %; Bilirubin,Urine Negative (Negative); Blood,Urine Negative (Negative); Color,Urine Colorless; Eosinophils # (A) 0.2 k/uL (0-0.7); Eosinophils % (A) 3 %; Glucose,Urine (UA) Negative (Negative); HCT 36.6 % (34.0-46.0); HGB 12.2 gm/dL (11.4-16.0); Ketones,Urine Negative (Negative); Leukocyte Esterase,Urine Negative (Negative); Lymphocytes # (A) 2.3 k/uL (1.0-4.8); Lymphocytes % (A) 34 %; MCH 27.4 pg (25.0-35.0); MCHC 33.2 g/dL (31.0-37.0); MCV 82.4 fL (80.0-100.0); Mean Platelet Volume 6.9; Monocytes # (A) 0.4 k/uL (0-1.0); Monocytes % (A) 6 %; Neutrophils # (A) 3.6 k/uL (1.3-7.7); Neutrophils % (A) 54 %; Nitrite,Urine Negative (Negative); Platelet Count 320 k/uL (150-450); Protein,Urine Negative (Negative); RBC 4.44 m/uL (3.80-5.40); RDW 13.6 % (11.5-15.5); Specific Gravity,Urine 1.005 (1.001-1.035); Urobilinogen,Urine <2.0 mg/dL (<2.0); WBC 6.7 k/uL (3.8-10.6)
[2019-07-21 18:59] LABS: ALT 7 U/L (4-34); AST 13 U/L (14-36); African American GFR (CKD) >90 (>60 ml/min/1.73 sqM); Albumin 3.5 g/dL (3.5-5.0); Alkaline Phosphatase 90 U/L (38-126); Anion Gap 7 mmol/L; Blood Urea Nitrogen 8 mg/dL (7-17); Calcium 8.5 mg/dL (8.4-10.2); Carbon Dioxide 17 mmol/L (22-30); Chloride 115 mmol/L (98-107); Glucose 98 mg/dL (74-99); Non-African American GFR(CKD) 87 (>60 ml/min/1.73 sqM); Potassium 3.8 mmol/L (3.5-5.1); Sodium 139 mmol/L (137-145); Total Bilirubin <0.1 mg/dL (0.2-1.3); Total Protein 6.1 g/dL (6.3-8.2)
--- NOTE | 2019-07-21 19:13 | ED ---
Female Urogenital HPI - General Source: patient Mode of arrival: ambulatory Limitations: no limitations - History of Present Illness Last Menstrual Period: 07/07/19 <Magaly Luque - Last Filed: 07/22/19 12:07> <Toña Howardah Wilner - Last Filed: 07/23/19 23:38> - General Chief complaint: Urogenital Stated complaint: kidney pain Time Seen by Provider: 07/21/19 18:21 - History of Present Illness Initial comments: This is a 39-year-old female with history of idiopathic gastroparesis who currently has a G-tube for feedings and medications and chronic abdominal pain presenting today for chief complaint of dysuria or urgency frequency. Patient states that about a week ago she developed mild symptoms of what she described as a urinary tract infection as she has had these previously. Patient states he progressed and on Tuesday of this week she contacted her primary care provider who sent over a prescription for Bactrim. Patient states the symptoms persist and her vagina is burning. Patient state she has no new abdominal pain but some mild bilateral low back pain. She was concerned the infection might spread to her kidneys and thus presented to the ER today. Patient denies any fevers chills. Denies hematuria, history of kidney stones, unilateral flank or back pain, nausea, vomiting, diarrhea. Patient denies noting vaginal discharge. Patient is monogamous with 1 partner. Denies any other complaints. Upon arrival patient appears well no distress, afebrile with VS wtihin acceptable limits. (Magaly Luque) - Related Data Home Medications Medication Instructions Recorded Confirmed Montelukast Chew [Singulair] 10 mg PO DAILY 02/02/18 07/16/19 Topiramate [Trokendi Xr] 50 mg PO HS 07/18/18 07/16/19 Thyroid,Pork [[place] Thyroid] 60 mg PO Q48H 10/06/18 07/16/19 Thyroid,Pork [[place] Thyroid] 90 mg PO Q48H 10/06/18 07/16/19 Prucalopride Succinate [Motegrity] 2 mg PO DAILY 01/14/19 07/16/19 oxyCODONE HCL [oxyCODONE HCL (IR)] 10 mg PO Q8H PRN 04/20/19 07/16/19 Linaclotide [Linzess] 290 mcg PO DAILY 05/24/19 07/16/19 Tegaserod Hydrogen Maleate 6 mg PO BID 05/24/19 07/16/19 [Zelnorm] Enoxaparin [Lovenox] 80 mg SQ Q12H 06/08/19 07/16/19 Phenergen 12.5 mg IV Q8HR PRN 06/08/19 07/16/19 Ondansetron 4mg 4 mg IV Q8H PRN 06/23/19 07/16/19 Previous Rx's Medication Instructions Recorded Scopolamine 1.5MG/72Hr Patch 1 patch TRANSDERM Q72H #10 patch 07/31/18 [TransDerm Scop] Cephalexin [Keflex] 500 mg PO Q6HR 7 Days #28 cap 07/21/19 Clotrimazole [Clotrimazole 2% (3 1 applicator VAGINAL HS 3 Days #3 07/21/19 day)] gm Allergies Allergy/AdvReac Type Severity Reaction Status Date / Time metoclopramide [From Reglan] AdvReac Mild jittery Verified 07/21/19 18:19 prochlorperazine AdvReac Mild JITTERY Verified 07/21/19 18:19 [From Compazine] Review of Systems ROS Other: All systems not noted in ROS Statement are negative. <Magaly Luque - Last Filed: 07/22/19 12:07> ROS Other: All systems not noted in ROS Statement are negative. <Ciara Howard - Last Filed: 07/23/19 23:38> ROS Statement: Those systems with pertinent positive or pertinent negative responses have been documented in the HPI. Past Medical History Past Medical History: Deep Vein Thrombosis (DVT), GERD/Reflux, Pulmonary Embolus (PE), Thyroid Disorder Additional Past Medical History / Comment(s): Other hx:Idiopathic gastroparesis, takes little in orally-has J tube for feedings-currently on hold and receiving TPN, chronic abdominal pain, R pulmonary embolism 5-2017, dvt R upper extremity 2018, pancreatitis once in 2018-thought stone somewhere, hypothyroid, chronic anemia, sinus problems, migraine. 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 J tube replaced-last replace in November or December 2018, piccs, mediport insertion Past Anesthesia/Blood Transfusion Reactions: No Reported Reaction Past Psychological History: Depression Smoking Status: Never smoker Past Alcohol Use History: None Reported Past Drug Use History: None Reported - Past Family History Father Family Medical History: Hypertension Additional Family Medical History / Comment(s): Father is 57 yrs old.. Mother Family Medical History: No Reported History Additional Family Medical History / Comment(s): Mother is 57yrs old. <Magaly Luque - Last Filed: 07/22/19 12:07> General Exam Limitations: no limitations <Magaly Luque - Last Filed: 07/22/19 12:07> - General Exam Comments Initial Comments: General: The patient is awake and alert, in no distress, and does not appear acutely ill. Eye: Pupils are equal, round and reactive to light, extra-ocular movements are intact. No nystagmus. There is normal conjunctiva bilaterally. No signs of icterus. Cardiovascular: There is a regular rate and rhythm. No murmur, rub or gallop is appreciated. Respiratory: Lungs are clear to auscultation, respirations are non-labored, breath sounds are equal. No wheezes, stridor, rales, or rhonchi. Gastrointestinal: Soft, non-distended, non-tender abdomen without masses or organomegaly noted. There is no rebound or guarding present. Musculoskeletal: Normal ROM, no tenderness. Strength 5/5. Sensation intact. Radial pulses equal bilaterally 2+. Neurological: A&O x 3. CN II-XII intact grossly, There are no obvious motor or sensory deficits. Coordination appears grossly intact. Speech is normal. Skin: Skin is warm and dry and no rashes or lesions are noted. Psychiatric: Cooperative, appropriate mood & affect, normal judgment. (Magaly Luque) Course Vital Signs 07/21/19 07/21/19 18:17 19:46 Temperature 98.6 F 98.6 F Pulse Rate 82 67 Respiratory 18 17 Rate Blood Pressure 127/90 132/77 O2 Sat by Pulse 100 98 Oximetry Medical Decision Making - Lab Data Result diagrams: 07/21/19 18:36 07/21/19 18:36 <Magaly Luque - Last Filed: 07/22/19 12:07> - Lab Data Result diagrams: 07/21/19 18:36 07/21/19 18:36 <Ciara Howard - Last Filed: 07/23/19 23:38> - Medical Decision Making 39yo female presenting today for cc of dysuria urgency frequency patient has been on antibiotic therapy for the past 3 days. UA unremarkable. HCG (-). Pelvic exam revealed white discharge, concern for candidiasis vaginitis. Urine cultured antibiotics regime switched. Patient does not appears toxic, no leukocytosis. Patient given medications for chronic pain/vaginal pain in the ER. Back pain is mild/bilateral. No severe colicky pain concerning for stone. Patient prescribed intravaginal clotrimazole in addition for suspected vaginitis. STI testing pending. Patient agreeable at this time to care plan, appropriate f/u and return parameters. Discharged appearing well. after discussing case with Dr. Howard (Magaly Luque) I was available for consultation in the emergency department. The history and physical exam were done by the midlevel provider. I was consulted for this patients care. I reviewed the case with the midlevel provider and based on their presentation of the patient, I agree with the assessment, medical decision making and plan of care as documented. Chart was dictated using [employer] dictation software. Attempts were made to correct any dictation errors however some typographical errors may persist. Patient was seen during a national state of emergency due to the Covid-19 pandemic. (Ciara Howard) - Lab Data Lab Results 07/21/19 07/21/19 07/21/19 Range/Units 18:36 18:36 18:36 WBC 6.7 (3.8-10.6) k/uL RBC 4.44 (3.80-5.40) m/uL Hgb 12.2 (11.4-16.0) gm/dL Hct 36.6 (34.0-46.0) % MCV 82.4 (80.0-100.0) fL MCH 27.4 (25.0-35.0) pg MCHC 33.2 (31.0-37.0) g/dL RDW 13.6 (11.5-15.5) % Plt Count 320 (150-450) k/uL Neutrophils % 54 % Lymphocytes % 34 % Monocytes % 6 % Eosinophils % 3 % Basophils % 1 % Neutrophils # 3.6 (1.3-7.7) k/uL Lymphocytes # 2.3 (1.0-4.8) k/uL Monocytes # 0.4 (0-1.0) k/uL Eosinophils # 0.2 (0-0.7) k/uL Basophils # 0.0 (0-0.2) k/uL Sodium (137-145) mmol/L Potassium (3.5-5.1) mmol/L Chloride (98-107) mmol/L Carbon Dioxide (22-30) mmol/L Anion Gap mmol/L BUN (7-17) mg/dL Creatinine (0.52-1.04) mg/dL Est GFR (CKD-EPI)AfAm (>60 ml/min/1.73 sqM) Est GFR (CKD-EPI)NonAf (>60 ml/min/1.73 sqM) Glucose (74-99) mg/dL Calcium (8.4-10.2) mg/dL Total Bilirubin (0.2-1.3) mg/dL AST (14-36) U/L ALT (4-34) U/L Alkaline Phosphatase (38-126) U/L Total Protein (6.3-8.2) g/dL Albumin (3.5-5.0) g/dL Urine Color Colorless Urine Appearance Clear (Clear) Urine pH 6.0 (5.0-8.0) Ur Specific [place] 1.005 (1.001-1.035) Urine Protein Negative (Negative) Urine Glucose (UA) Negative (Negative) Urine Ketones Negative (Negative) Urine Blood Negative (Negative) Urine Nitrite Negative (Negative) Urine Bilirubin Negative (Negative) Urine Urobilinogen <2.0 (<2.0) mg/dL Ur Leukocyte Esterase Negative (Negative) Urine HCG, Qual Not Detected (Not Detectd) Trichomonas Ag (Rapid) (Negative) 07/21/19 07/21/19 Range/Units 18:36 19:45 WBC (3.8-10.6) k/uL RBC (3.80-5.40) m/uL Hgb (11.4-16.0) gm/dL Hct (34.0-46.0) % MCV (80.0-100.0) fL MCH (25.0-35.0) pg MCHC (31.0-37.0) g/dL RDW (11.5-15.5) % Plt Count (150-450) k/uL Neutrophils % % Lymphocytes % % Monocytes % % Eosinophils % % Basophils % % Neutrophils # (1.3-7.7) k/uL Lymphocytes # (1.0-4.8) k/uL Monocytes # (0-1.0) k/uL Eosinophils # (0-0.7) k/uL Basophils # (0-0.2) k/uL Sodium 139 (137-145) mmol/L Potassium 3.8 (3.5-5.1) mmol/L Chloride 115 H (98-107) mmol/L Carbon Dioxide 17 L (22-30) mmol/L Anion Gap 7 mmol/L BUN 8 (7-17) mg/dL Creatinine 0.86 (0.52-1.04) mg/dL Est GFR (CKD-EPI)AfAm >90 (>60 ml/min/1.73 sqM) Est GFR (CKD-EPI)NonAf 87 (>60 ml/min/1.73 sqM) Glucose 98 (74-99) mg/dL Calcium 8.5 (8.4-10.2) mg/dL Total Bilirubin <0.1 L (0.2-1.3) mg/dL AST 13 L (14-36) U/L ALT 7 (4-34) U/L Alkaline Phosphatase 90 (38-126) U/L Total Protein 6.1 L (6.3-8.2) g/dL Albumin 3.5 (3.5-5.0) g/dL Urine Color Urine Appearance (Clear) Urine pH (5.0-8.0) Ur Specific [place] (1.001-1.035) Urine Protein (Negative) Urine Glucose (UA) (Negative) Urine Ketones (Negative) Urine Blood (Negative) Urine Nitrite (Negative) Urine Bilirubin (Negative) Urine Urobilinogen (<2.0) mg/dL Ur Leukocyte Esterase (Negative) Urine HCG, Qual (Not Detectd) Trichomonas Ag (Rapid) Negative (Negative) Disposition Is patient prescribed a controlled substance at d/c from ED?: No Time of Disposition: 15:50 <Magaly Luque - Last Filed: 07/22/19 12:07> <AnitaCiara Wilner - Last Filed: 07/23/19 23:38> Clinical Impression: Dysuria, Urgency of micturition, Vaginitis, Vaginal discharge Disposition: HOME SELF-CARE Condition: Good Instructions (If sedation given, give patient instructions): Urinary Tract Infection in Women (ED) Additional Instructions: Please use medication as discussed. Please follow-up with family doctor in the next 2 days. Please return to emergency room if the symptoms increase or worsen or for any other concerns. Prescriptions: Clotrimazole [Clotrimazole 2% (3 day)] 1 applicator VAGINAL HS 3 Days #3 gm Cephalexin [Keflex] 500 mg PO Q6HR 7 Days #28 cap Referrals: Wong Adame MD [Primary Care Provider] - 1-2 days
[2019-07-21 19:49] VITALS: BP 132/77; PULSE 67; RESP 17
== END 2019-07-21 20:04 | disposition home or self-care (01) ==
LOC: EC 18:13
DX: N76.0 Acute vaginitis (principal); R30.0 Dysuria; R39.15 Urgency of urination; K21.9 Gastro-esophageal reflux disease without esophagitis; F32.9 Major depressive disorder, single episode, unspecified; E03.9 Hypothyroidism, unspecified; Z79.890 Hormone replacement therapy; Z79.899 Other long term (current) drug therapy; Z88.8 Allergy status to other drugs, medicaments and biological substances; Z86.718 Personal history of other venous thrombosis and embolism; Z86.711 Personal history of pulmonary embolism
CPT/HCPCS: 36415; 80053; 85025; 81003; 81025; 87808; 87491; 87591; 87070; 87086; 99283; 96374; 96375 ×2; 96376; 96361; J2405; J0696; J1170

== ENCOUNTER 2019-07-31 16:53 | Emergency (ER) | payer BC ==
[2019-07-31 17:00] VITALS: BP 129/82; PULSE 90; RESP 18; TEMP 98.3
[2019-07-31] MEDS ORDERED: SODIUM CHLORIDE 0.9% 1,000 ML IV STA (17:15)
[2019-07-31] MEDS ORDERED: HYDROmorphone 0.5 MG/0.5 ML SYRINGE IVP STA ×2 (17:15→19:48)
[2019-07-31] MEDS ORDERED: ONDANSETRON 4 MG/2 ML VIAL IVP STA (17:15)
--- NOTE | 2019-07-31 17:21 | ED ---
General Adult HPI - General Chief complaint: Recheck/Abnormal Lab/Rx Stated complaint: feeding tube infection Time Seen by Provider: 07/31/19 17:06 Source: patient, RN notes reviewed Mode of arrival: ambulatory Limitations: no limitations - History of Present Illness Initial comments: This a 39-year-old female presents emergency Department chief complaint of infection around her J-tube. Patient states that she's had this for several years placed by her surgeon at [place]. Patient has is for prior feedings secondary to gastroparesis but states that she has not been using she flushes it daily. Patient states that in the last day or so that she's noticed increased redness, drainage. She contacted her surgeon who advised that he was seen in emergency department. Patient denies any fevers over 100. Patient states she has increasing pain. No diarrhea no increased vomiting. Denies any headache or dizziness. No URI symptoms. She states that there is a large amount of purulent drainage - Related Data Home Medications Medication Instructions Recorded Confirmed Montelukast Chew [Singulair] 10 mg PO DAILY 02/02/18 07/16/19 Topiramate [Trokendi Xr] 50 mg PO HS 07/18/18 07/16/19 Thyroid,Pork [[place] Thyroid] 60 mg PO Q48H 10/06/18 07/16/19 Thyroid,Pork [[place] Thyroid] 90 mg PO Q48H 10/06/18 07/16/19 Prucalopride Succinate [Motegrity] 2 mg PO DAILY 01/14/19 07/16/19 oxyCODONE HCL [oxyCODONE HCL (IR)] 10 mg PO Q8H PRN 04/20/19 07/16/19 Linaclotide [Linzess] 290 mcg PO DAILY 05/24/19 07/16/19 Tegaserod Hydrogen Maleate 6 mg PO BID 05/24/19 07/16/19 [Zelnorm] Enoxaparin [Lovenox] 80 mg SQ Q12H 06/08/19 07/16/19 Phenergen 12.5 mg IV Q8HR PRN 06/08/19 07/16/19 Ondansetron 4mg 4 mg IV Q8H PRN 06/23/19 07/16/19 Previous Rx's Medication Instructions Recorded Scopolamine 1.5MG/72Hr Patch 1 patch TRANSDERM Q72H #10 patch 07/31/18 [TransDerm Scop] Cephalexin [Keflex] 500 mg PO Q6HR 7 Days #28 cap 07/21/19 Clotrimazole [Clotrimazole 2% (3 1 applicator VAGINAL HS 3 Days #3 07/21/19 day)] gm Sulfamethox-Tmp 800-160Mg [Bactrim 1 each PO Q12HR #20 tab 07/31/19 Ds] Allergies Allergy/AdvReac Type Severity Reaction Status Date / Time metoclopramide [From Reglan] AdvReac Mild jittery Verified 07/31/19 17:00 prochlorperazine AdvReac Mild JITTERY Verified 07/31/19 17:00 [From Compazine] Review of Systems ROS Statement: Those systems with pertinent positive or pertinent negative responses have been documented in the HPI. ROS Other: All systems not noted in ROS Statement are negative. Past Medical History Past Medical History: Deep Vein Thrombosis (DVT), GERD/Reflux, Pulmonary Embolus (PE), Thyroid Disorder Additional Past Medical History / Comment(s): Other hx:Idiopathic gastroparesis, takes little in orally-has J tube for feedings-currently on hold and receiving TPN, chronic abdominal pain, R pulmonary embolism 5-2017, dvt R upper extremity 2018, pancreatitis once in 2018-thought stone somewhere, hypothyroid, chronic anemia, sinus problems, migraine. 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 J tube replaced-last replace in November or December 2018, piccs, mediport insertion Past Anesthesia/Blood Transfusion Reactions: No Reported Reaction Past Psychological History: Depression Smoking Status: Never smoker Past Alcohol Use History: None Reported Past Drug Use History: None Reported - Past Family History Father Family Medical History: Hypertension Additional Family Medical History / Comment(s): Father is 57 yrs old.. Mother Family Medical History: No Reported History Additional Family Medical History / Comment(s): Mother is 57yrs old. General Exam Limitations: no limitations General appearance: alert, in no apparent distress Head exam: Present: atraumatic, normocephalic, normal inspection Eye exam: Present: normal appearance, PERRL, EOMI. Absent: scleral icterus, conjunctival injection, periorbital swelling Neck exam: Present: normal inspection, full ROM. Absent: tenderness, meningismus, lymphadenopathy Respiratory exam: Present: normal lung sounds bilaterally. Absent: respiratory distress, wheezes, rales, rhonchi, stridor Cardiovascular Exam: Present: regular rate, normal rhythm, normal heart sounds. Absent: systolic murmur, diastolic murmur, rubs, gallop, clicks GI/Abdominal exam: Present: soft, tenderness, normal bowel sounds, other (There is some surrounding erythema, purulent drainage noted around J-tube). Absent: distended, guarding, rebound, rigid Extremities exam: Absent: tenderness Neurological exam: Present: alert, oriented X3, CN II-XII intact Psychiatric exam: Present: normal affect, normal mood Skin exam: Present: warm, dry, intact, normal color. Absent: rash Course Vital Signs 07/31/19 16:58 Temperature 98.3 F Pulse Rate 90 Respiratory 18 Rate Blood Pressure 129/82 O2 Sat by Pulse 100 Oximetry Medical Decision Making - Medical Decision Making 39-year-old female presented for infection around her J-tube. Patient does not have any peritoneal signs. Vitals, labs are within normal limits. CT shows some mild stranding otherwise no abscess. There is question of foreign body no patient cannot recall any ingestion. Patient will be given IV dose of antibiotics, discharged on antibiotic pending culture. - Lab Data Result diagrams: 07/31/19 18:30 07/31/19 18:30 Lab Results 07/31/19 07/31/19 07/31/19 Range/Units 18:30 18:30 18:30 WBC 6.6 (3.8-10.6) k/uL RBC 4.33 (3.80-5.40) m/uL Hgb 12.2 (11.4-16.0) gm/dL Hct 36.7 (34.0-46.0) % MCV 84.8 (80.0-100.0) fL MCH 28.1 (25.0-35.0) pg MCHC 33.2 (31.0-37.0) g/dL RDW 14.0 (11.5-15.5) % Plt Count 341 (150-450) k/uL Neutrophils % 51 % Lymphocytes % 36 % Monocytes % 7 % Eosinophils % 3 % Basophils % 1 % Neutrophils # 3.4 (1.3-7.7) k/uL Lymphocytes # 2.4 (1.0-4.8) k/uL Monocytes # 0.4 (0-1.0) k/uL Eosinophils # 0.2 (0-0.7) k/uL Basophils # 0.1 (0-0.2) k/uL Sodium 139 (137-145) mmol/L Potassium 4.3 (3.5-5.1) mmol/L Chloride 110 H (98-107) mmol/L Carbon Dioxide 23 (22-30) mmol/L Anion Gap 6 mmol/L BUN 15 (7-17) mg/dL Creatinine 0.83 (0.52-1.04) mg/dL Est GFR (CKD-EPI)AfAm >90 (>60 ml/min/1.73 sqM) Est GFR (CKD-EPI)NonAf >90 (>60 ml/min/1.73 sqM) Glucose 88 (74-99) mg/dL Plasma Lactic Acid Frank 0.7 (0.7-2.0) mmol/L Calcium 9.3 (8.4-10.2) mg/dL Total Bilirubin 0.1 L (0.2-1.3) mg/dL AST 17 (14-36) U/L ALT 12 (4-34) U/L Alkaline Phosphatase 92 (38-126) U/L Total Protein 6.5 (6.3-8.2) g/dL Albumin 3.9 (3.5-5.0) g/dL Lipase 89 (23-300) U/L Disposition Clinical Impression: Abdominal wall cellulitis Disposition: HOME SELF-CARE Condition: Stable Instructions (If sedation given, give patient instructions): Cellulitis (ED) Additional Instructions: Please return to the Emergency Department if symptoms worsen or any other concerns. Prescriptions: Sulfamethox-Tmp 800-160Mg [Bactrim Ds] 1 each PO Q12HR #20 tab Is patient prescribed a controlled substance at d/c from ED?: No Referrals: Wong Adame MD [Primary Care Provider] - 1-2 days Time of Disposition: 19:50
[2019-07-31 18:51] LABS: Basophils # (A) 0.1 k/uL (0-0.2); Basophils % (A) 1 %; Eosinophils # (A) 0.2 k/uL (0-0.7); Eosinophils % (A) 3 %; HCT 36.7 % (34.0-46.0); HGB 12.2 gm/dL (11.4-16.0); Lymphocytes # (A) 2.4 k/uL (1.0-4.8); Lymphocytes % (A) 36 %; MCH 28.1 pg (25.0-35.0); MCHC 33.2 g/dL (31.0-37.0); MCV 84.8 fL (80.0-100.0); Mean Platelet Volume 6.8; Monocytes # (A) 0.4 k/uL (0-1.0); Monocytes % (A) 7 %; Neutrophils # (A) 3.4 k/uL (1.3-7.7); Neutrophils % (A) 51 %; Platelet Count 341 k/uL (150-450); RBC 4.33 m/uL (3.80-5.40); WBC 6.6 k/uL (3.8-10.6)
[2019-07-31 19:00] LABS: ALT 12 U/L (4-34); AST 17 U/L (14-36); African American GFR (CKD) >90 (>60 ml/min/1.73 sqM); Albumin 3.9 g/dL (3.5-5.0); Alkaline Phosphatase 92 U/L (38-126); Anion Gap 6 mmol/L; Blood Urea Nitrogen 15 mg/dL (7-17); Calcium 9.3 mg/dL (8.4-10.2); Carbon Dioxide 23 mmol/L (22-30); Chloride 110 mmol/L (98-107); Glucose 88 mg/dL (74-99); Non-African American GFR(CKD) >90 (>60 ml/min/1.73 sqM); Potassium 4.3 mmol/L (3.5-5.1); Sodium 139 mmol/L (137-145); Total Bilirubin 0.1 mg/dL (0.2-1.3); Total Protein 6.5 g/dL (6.3-8.2)
--- NOTE | 2019-07-31 19:37 | CT ---
EXAMINATION TYPE: CT abdomen pelvis w con DATE OF EXAM: 07/31/2019 HISTORY: Abdominal pain, J-tube infection/abscess. CT DLP: 1085.1mGycm Automated Exposure Control for Dose Reduction was Utilized. CONTRAST: CT scan of the abdomen and pelvis is performed without oral but with IV Contrast, patient injected wi th 100 mL of Isovue 300. COMPARISON: CT abdomen and pelvis June 08, 2019 and older CTs FINDINGS: LUNG BASES: No significant abnormality is appreciated. LIVER/GB: Cholecystectomy clips are redemonstrated. PANCREAS: No significant abnormality is seen. SPLEEN: Stable small splenule inferior hilum axial image 23. ADRENALS: No significant abnormality is seen. KIDNEYS: Symmetric cortical medullary uptake and excretion without hydronephrosis seen bilaterally. BOWEL: Suboptimal evaluation of bowel without enteric contrast. Stomach poorly distended and thus sub optimally evaluated. Prominent suture or calcified vessels near stomach margin is again seen. Rectang ular shaped 2.0 x 0.5 cm structure second portion of duodenum coronal image 43 of uncertain etiology. Correlate for possible ingested foreign body. Second similar type structure seen near fourth portion of duodenum axial image 26 on current study. Redemonstration of anterior percutaneous jejunostomy tu be below this axial image 35. Surgical sutures left sided bowel loops axial image 41. Third rectangul ar density right: Coronal image 43 noted. Moderate prominence of fecal material right colon. Overall no suspicious small or large bowel dilatation. Mild wall thickening in the transverse colon mid to di stal aspect. Fourth rectangular density mid transverse colon coronal image 29 on current study. UTERUS/ADNEXA: Anteverted uterus projects to left of midline. Central metallic IUD redemonstrated. LYMPH NODES: No greater than 1cm abdominal or pelvic lymph nodes are appreciated. OSSEOUS STRUCTURES: No significant abnormality is seen. OTHER: Areas of mild fat stranding and nodularity anterior abdominal wall lower abdomen/upper pelvis redemonstrated presumed scarring or injection granulomas near axial image 56. IMPRESSION: 1. No bowel obstruction. Stable positioning of percutaneous jejunostomy tube. On current study there are 4 rectangular shaped intraluminal structures throughout small and large bowel loops, one must con assembler crimper ingested foreign body. Correlate clinically.
[2019-07-31] MEDS ORDERED: PIPERACILLIN-TAZOBACTAM 3.375 GM in SODIUM CHLORIDE 0.9% 100 ML IVPB STA (19:47)
[2019-07-31] MEDS ORDERED: ACET/COD 300 MG/30 MG STARTER PACK 6 TAB BTL PO STA (19:49)
== END 2019-07-31 21:15 | disposition home or self-care (01) ==
LOC: EC 16:53
DX: K94.22 Gastrostomy infection (principal); L03.311 Cellulitis of abdominal wall; K31.84 Gastroparesis; G89.29 Other chronic pain; R10.9 Unspecified abdominal pain; E03.9 Hypothyroidism, unspecified; K21.9 Gastro-esophageal reflux disease without esophagitis; Z79.899 Other long term (current) drug therapy; Z79.890 Hormone replacement therapy; Z88.8 Allergy status to other drugs, medicaments and biological substances; Z86.718 Personal history of other venous thrombosis and embolism; Z86.711 Personal history of pulmonary embolism; Z87.19 Personal history of other diseases of the digestive system; Z90.49 Acquired absence of other specified parts of digestive tract; Z98.890 Other specified postprocedural states
CPT/HCPCS: 36415; 80053; 83605; 83690; 85025; 87040; 87070; 87205; 74177; 96365; 96375 ×2; 96376; 96361; 99283; J2543; J2405; J1170; Q9967

== ENCOUNTER 2019-08-07 19:10 | Emergency (ER) | payer BC ==
[2019-08-07 19:14] VITALS: BP 135/86; PULSE 98; RESP 20; TEMP 98.7
[2019-08-07] MEDS ORDERED: ONDANSETRON 4 MG/2 ML VIAL IVP STA (19:39)
[2019-08-07] MEDS ORDERED: HYDROmorphone 0.5 MG/0.5 ML SYRINGE IVP STA (19:39)
--- NOTE | 2019-08-07 20:26 | ED ---
Skin/Abscess/FB HPI - General Chief complaint: Skin/Abscess/Foreign Body Stated complaint: infection around feeding tube Time Seen by Provider: 08/07/19 19:19 Source: patient Mode of arrival: ambulatory Limitations: no limitations - History of Present Illness Initial comments: Patient is a 39-year-old female here for possible infection around her G-tube. Patient was seen in the ER 1 week ago for same complaint. Labs and imaging were reviewed. Patient also had follow-up with her surgeon, at [place] [facility], and they stated that if her symptoms continue to increase to go back to the ER. She is currently on Bactrim and Levaquin. Patient denies having fever, chills. She states she continues to have abdominal pain, redness around her tube as well as yellow drainage. She states her pain medicines at home is not helping to control her pain anymore. She is also having increasing nausea and vomiting. She denies any chest pain, shortness of breath, diarrhea. She has no other complaints at this time. Upon arrival to the ER, her vital signs are stable, afebrile. - Related Data Home Medications Medication Instructions Recorded Confirmed Montelukast Chew [Singulair] 10 mg PO DAILY 02/02/18 07/16/19 Topiramate [Trokendi Xr] 50 mg PO HS 07/18/18 07/16/19 Thyroid,Pork [[place] Thyroid] 60 mg PO Q48H 10/06/18 07/16/19 Thyroid,Pork [[place] Thyroid] 90 mg PO Q48H 10/06/18 07/16/19 Prucalopride Succinate [Motegrity] 2 mg PO DAILY 01/14/19 07/16/19 oxyCODONE HCL [oxyCODONE HCL (IR)] 10 mg PO Q8H PRN 04/20/19 07/16/19 Linaclotide [Linzess] 290 mcg PO DAILY 05/24/19 07/16/19 Tegaserod Hydrogen Maleate 6 mg PO BID 05/24/19 07/16/19 [Zelnorm] Enoxaparin [Lovenox] 80 mg SQ Q12H 06/08/19 07/16/19 Phenergen 12.5 mg IV Q8HR PRN 06/08/19 07/16/19 Ondansetron 4mg 4 mg IV Q8H PRN 06/23/19 07/16/19 Previous Rx's Medication Instructions Recorded Scopolamine 1.5MG/72Hr Patch 1 patch TRANSDERM Q72H #10 patch 07/31/18 [TransDerm Scop] Cephalexin [Keflex] 500 mg PO Q6HR 7 Days #28 cap 07/21/19 Clotrimazole [Clotrimazole 2% (3 1 applicator VAGINAL HS 3 Days #3 07/21/19 day)] gm Sulfamethox-Tmp 800-160Mg [Bactrim 1 each PO Q12HR #20 tab 07/31/19 Ds] Levofloxacin [Levaquin] 500 mg PO DAILY 3 Days #3 tab 08/07/19 Allergies Allergy/AdvReac Type Severity Reaction Status Date / Time metoclopramide [From Reglan] AdvReac Mild jittery Verified 08/07/19 19:14 prochlorperazine AdvReac Mild JITTERY Verified 08/07/19 19:14 [From Compazine] Review of Systems ROS Statement: Those systems with pertinent positive or pertinent negative responses have been documented in the HPI. ROS Other: All systems not noted in ROS Statement are negative. Past Medical History Past Medical History: Deep Vein Thrombosis (DVT), GERD/Reflux, Pulmonary Embolus (PE), Thyroid Disorder Additional Past Medical History / Comment(s): Other hx:Idiopathic gastroparesis, takes little in orally-has J tube for feedings-currently on hold and receiving TPN, chronic abdominal pain, R pulmonary embolism 5-2017, dvt R upper extremity 2018, pancreatitis once in 2018-thought stone somewhere, hypothyroid, chronic anemia, sinus problems, migraine. 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 J tube replaced-last replace in November or December 2018, piccs, mediport insertion Past Anesthesia/Blood Transfusion Reactions: No Reported Reaction Past Psychological History: Depression Smoking Status: Never smoker Past Alcohol Use History: None Reported Past Drug Use History: None Reported - Past Family History Father Family Medical History: Hypertension Additional Family Medical History / Comment(s): Father is 57 yrs old.. Mother Family Medical History: No Reported History Additional Family Medical History / Comment(s): Mother is 57yrs old. General Exam - General Exam Comments Initial Comments: GENERAL: Well-appearing, well-nourished and in no acute distress. HEAD: Atraumatic, normocephalic. EYES: Pupils equal round and reactive to light, extraocular movements intact, sclera anicteric, conjunctiva are normal. ENT: TMs normal, nares patent, oropharynx clear without exudates. Moist mucous membranes. NECK: Normal range of motion, supple without lymphadenopathy or JVD. LUNGS: Breath sounds clear to auscultation bilaterally and equal. No wheezes rales or rhonchi. HEART: Regular rate and rhythm without murmurs, rubs or gallops. ABDOMEN: Tenderness to palpation as well as surrounding erythema and purulent drainage around the G-tube site. No other abdominal pain. Soft, normoactive bowel sounds. No guarding, no rebound. No masses appreciated. : Deferred EXTREMITIES: Normal range of motion, no pitting or edema. No clubbing or cyanosis. NEUROLOGICAL: Normal speech, normal gait. PSYCH: Normal mood, normal affect. SKIN: Warm, Dry, normal turgor, no rashes or lesions noted. Limitations: no limitations Course Vital Signs 08/07/19 19:11 Temperature 98.7 F Pulse Rate 98 Respiratory 20 Rate Blood Pressure 135/86 O2 Sat by Pulse 99 Oximetry Medical Decision Making - Medical Decision Making Patient is a 39-year-old female here for possible infection around her J-tube. Patient was seen last week and was started on Bactrim. Patient did have follow- up with her surgeon on Tuesday. She was also started on Levaquin on Tuesday as well. Her vital signs are stable. Lab work is relatively unchanged from last week, no acute findings. Her computed tomography scan from last week was also reviewed. Discussed with patient that she can continue with outpatient antibiotics and she'll be given referral to infectious disease. Patient is in agreement with this plan of care. Return parameters were discussed with the patient she verbalized understanding. CAse discussed with Dr. Howard. - Lab Data Result diagrams: 08/07/19 19:58 08/07/19 19:58 Lab Results 08/07/19 08/07/19 08/07/19 Range/Units 19:58 19:58 19:58 WBC 7.6 (3.8-10.6) k/uL RBC 4.32 (3.80-5.40) m/uL Hgb 12.1 (11.4-16.0) gm/dL Hct 38.0 (34.0-46.0) % MCV 87.9 (80.0-100.0) fL MCH 28.1 (25.0-35.0) pg MCHC 31.9 (31.0-37.0) g/dL RDW 14.5 (11.5-15.5) % Plt Count 362 (150-450) k/uL Neutrophils % 57 % Lymphocytes % 32 % Monocytes % 5 % Eosinophils % 3 % Basophils % 1 % Neutrophils # 4.3 (1.3-7.7) k/uL Lymphocytes # 2.5 (1.0-4.8) k/uL Monocytes # 0.4 (0-1.0) k/uL Eosinophils # 0.2 (0-0.7) k/uL Basophils # 0.0 (0-0.2) k/uL Sodium 136 L (137-145) mmol/L Potassium 4.0 (3.5-5.1) mmol/L Chloride 105 (98-107) mmol/L Carbon Dioxide 23 (22-30) mmol/L Anion Gap 8 mmol/L BUN 15 (7-17) mg/dL Creatinine 0.80 (0.52-1.04) mg/dL Est GFR (CKD-EPI)AfAm >90 (>60 ml/min/1.73 sqM) Est GFR (CKD-EPI)NonAf >90 (>60 ml/min/1.73 sqM) Glucose 89 (74-99) mg/dL Plasma Lactic Acid Frank 0.7 (0.7-2.0) mmol/L Calcium 9.4 (8.4-10.2) mg/dL Total Bilirubin 0.2 (0.2-1.3) mg/dL AST 25 (14-36) U/L ALT 88 H (4-34) U/L Alkaline Phosphatase 166 H (38-126) U/L Total Protein 6.5 (6.3-8.2) g/dL Albumin 4.0 (3.5-5.0) g/dL Disposition Clinical Impression: Jejunostomy tube present, Cellulitis Disposition: HOME SELF-CARE Condition: Stable Instructions (If sedation given, give patient instructions): Cellulitis (ED) Additional Instructions: Please return to the Emergency Department if symptoms worsen or any other concerns. Continue with already prescribed Levaquin. Follow up with infectious disease as discussed. Follow-up with PCP. Prescriptions: Levofloxacin [Levaquin] 500 mg PO DAILY 3 Days #3 tab Is patient prescribed a controlled substance at d/c from ED?: No Referrals: Wong Adame MD [Primary Care Provider] - 1-2 days Sheela Richards MD [STAFF PHYSICIAN] - 1-2 days
[2019-08-07 20:31] LABS: ALT 88 U/L (4-34); AST 25 U/L (14-36); African American GFR (CKD) >90 (>60 ml/min/1.73 sqM); Alkaline Phosphatase 166 U/L (38-126); Anion Gap 8 mmol/L; Blood Urea Nitrogen 15 mg/dL (7-17); Calcium 9.4 mg/dL (8.4-10.2); Carbon Dioxide 23 mmol/L (22-30); Chloride 105 mmol/L (98-107); Glucose 89 mg/dL (74-99); Non-African American GFR(CKD) >90 (>60 ml/min/1.73 sqM); Sodium 136 mmol/L (137-145); Total Bilirubin 0.2 mg/dL (0.2-1.3); Total Protein 6.5 g/dL (6.3-8.2)
[2019-08-07 21:03] LABS: Basophils % (A) 1 %; Eosinophils # (A) 0.2 k/uL (0-0.7); Eosinophils % (A) 3 %; HGB 12.1 gm/dL (11.4-16.0); Lymphocytes # (A) 2.5 k/uL (1.0-4.8); Lymphocytes % (A) 32 %; MCH 28.1 pg (25.0-35.0); MCHC 31.9 g/dL (31.0-37.0); MCV 87.9 fL (80.0-100.0); Mean Platelet Volume 7.1; Monocytes # (A) 0.4 k/uL (0-1.0); Monocytes % (A) 5 %; Neutrophils # (A) 4.3 k/uL (1.3-7.7); Neutrophils % (A) 57 %; Platelet Count 362 k/uL (150-450); RBC 4.32 m/uL (3.80-5.40); RDW 14.5 % (11.5-15.5); WBC 7.6 k/uL (3.8-10.6)
== END 2019-08-07 22:09 | disposition home or self-care (01) ==
LOC: EC 19:10
DX: L03.311 Cellulitis of abdominal wall (principal); E03.9 Hypothyroidism, unspecified; K31.84 Gastroparesis; G89.29 Other chronic pain; R10.9 Unspecified abdominal pain; G43.909 Migraine, unspecified, not intractable, without status migrainosus; Z79.890 Hormone replacement therapy; Z79.899 Other long term (current) drug therapy; Z93.4 Other artificial openings of gastrointestinal tract status; Z88.8 Allergy status to other drugs, medicaments and biological substances; Z86.718 Personal history of other venous thrombosis and embolism; Z90.49 Acquired absence of other specified parts of digestive tract; Z98.890 Other specified postprocedural states
CPT/HCPCS: 36415; 80053; 83605; 85025; 96374; 96375; 99284; J2405; J1170

== ENCOUNTER 2019-08-08 14:50 | Inpatient (IN) | payer BC ==
[2019-08-08] MEDS ORDERED: PIPERACILLIN-TAZOBACTAM 3.375 GM in SODIUM CHLORIDE 0.9% 100 ML IVPB STA (15:36)
--- NOTE | 2019-08-08 15:45 | ED ---
General Adult HPI - General Chief complaint: Recheck/Abnormal Lab/Rx Stated complaint: Infection around Feeding tube Time Seen by Provider: 08/08/19 14:55 Source: patient Mode of arrival: ambulatory Limitations: no limitations - History of Present Illness Initial comments: The patient is a 39-year-old female with past medical history of gastroparesis, pancreatitis who presents to the emergency department with reported cellulitis around her J-tube site. Patient was seen on July 30 for the complaints. States that she has purulent drainage coming from around her site. He was cultured at that time. She had a CT of her abdomen and pelvis which did not demonstrate any deep structure involvement. She is placed on Bactrim until the follow-up with her surgeon. She did receive a call from the hospital stating that her wound culture was not sensitive to the Bactrim and therefore was changed to Levaquin. She is taking both antibiotics up until last Tuesday. Follow-up with her surgeon out of [place] on Tuesday who told her to stop the Bactrim. Continues to take the Levaquin however continues to have pain, swelling, redness and purulent drainage from the site. She was seen yesterday in the emergency department and told to follow-up with infectious disease. States she called the office today and was told that Dr. Richards would not be in office until Tuesday. I instructed her to go into the emergency department if her symptoms are getting worse for admission and IV antibiotics. The patient denies any fevers or chills. No nausea or vomiting. She only gets free water flushes at this time through her J-tube. She is on TPN for nutrition. There are no other alleviating, precipitating or modifying factors - Related Data Home Medications Medication Instructions Recorded Confirmed Montelukast Chew [Singulair] 10 mg PO DAILY 02/02/18 08/08/19 Topiramate [Trokendi Xr] 50 mg PO HS 07/18/18 08/08/19 Thyroid,Pork [[place] Thyroid] 60 mg PO Q48H 10/06/18 08/08/19 Thyroid,Pork [[place] Thyroid] 90 mg PO Q48H 10/06/18 08/08/19 Prucalopride Succinate [Motegrity] 2 mg PO DAILY 01/14/19 08/08/19 oxyCODONE HCL [oxyCODONE HCL (IR)] 10 mg PO Q8H PRN 04/20/19 08/08/19 Linaclotide [Linzess] 290 mcg PO DAILY 05/24/19 08/08/19 Tegaserod Hydrogen Maleate 6 mg PO AC-BID 05/24/19 08/08/19 [Zelnorm] Enoxaparin [Lovenox] 80 mg SQ Q12H 06/08/19 08/08/19 Phenergen 12.5 mg IV Q8HR PRN 06/08/19 08/08/19 Ondansetron 4mg 4 mg IV Q8H PRN 06/23/19 08/08/19 Dicyclomine [Bentyl] 10 mg PO Q8H PRN 08/08/19 08/08/19 Previous Rx's Medication Instructions Recorded Scopolamine 1.5MG/72Hr Patch 1 patch TRANSDERM Q72H #10 patch 07/31/18 [TransDerm Scop] Levofloxacin [Levaquin] 500 mg PO DAILY 3 Days #3 tab 08/07/19 Allergies Allergy/AdvReac Type Severity Reaction Status Date / Time metoclopramide [From Reglan] AdvReac Mild jittery Verified 08/08/19 17:49 prochlorperazine AdvReac Mild JITTERY Verified 08/08/19 17:49 [From Compazine] Review of Systems ROS Statement: Those systems with pertinent positive or pertinent negative responses have been documented in the HPI. ROS Other: All systems not noted in ROS Statement are negative. Past Medical History Past Medical History: Deep Vein Thrombosis (DVT), GERD/Reflux, Pulmonary Embolus (PE), Thyroid Disorder Additional Past Medical History / Comment(s): Other hx:Idiopathic gastroparesis, takes little in orally-has J tube for feedings-currently on hold and receiving TPN, chronic abdominal pain, R pulmonary embolism 5-2017, dvt R upper extremity 2018, pancreatitis once in 2018-thought stone somewhere, hypothyroid, chronic anemia, sinus problems, migraine. 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 J tube replaced-last replace in November or December 2018, piccs, mediport insertion Past Anesthesia/Blood Transfusion Reactions: No Reported Reaction Past Psychological History: Depression Smoking Status: Never smoker Past Alcohol Use History: None Reported Past Drug Use History: None Reported - Past Family History Father Family Medical History: Hypertension Additional Family Medical History / Comment(s): Father is 57 yrs old.. Mother Family Medical History: No Reported History Additional Family Medical History / Comment(s): Mother is 57yrs old. General Exam Limitations: no limitations General appearance: alert, in no apparent distress Head exam: Present: atraumatic, normocephalic, normal inspection Eye exam: Present: normal appearance, PERRL, EOMI. Absent: scleral icterus, conjunctival injection, periorbital swelling ENT exam: Present: normal exam, mucous membranes moist Neck exam: Present: normal inspection. Absent: tenderness, meningismus, lymphadenopathy Respiratory exam: Present: normal lung sounds bilaterally. Absent: respiratory distress, wheezes, rales, rhonchi, stridor Cardiovascular Exam: Present: regular rate, normal rhythm, normal heart sounds. Absent: systolic murmur, diastolic murmur, rubs, gallop, clicks GI/Abdominal exam: Present: soft, normal bowel sounds, other (feeding tube left side of abdomen. surrounding skin is erythematous. Small amount of yellow drainage.). Absent: distended, tenderness, guarding, rebound, rigid Extremities exam: Present: normal inspection, full ROM, normal capillary refill. Absent: tenderness, pedal edema, joint swelling, calf tenderness Back exam: Present: normal inspection Neurological exam: Present: alert, oriented X3, CN II-XII intact Psychiatric exam: Present: normal affect, normal mood Skin exam: Present: warm, dry, intact, normal color. Absent: rash Course Vital Signs 08/08/19 08/08/19 08/08/19 14:52 16:53 17:53 Temperature 98.2 F 98.0 F Pulse Rate 97 74 80 Respiratory 18 18 18 Rate Blood Pressure 118/75 109/70 129/75 O2 Sat by Pulse 100 100 100 Oximetry Medical Decision Making - Medical Decision Making Upon arrival patient is placed in room 16. A thorough history and physical exam was performed. Lab studies conducted. White blood cell count is normal. Her CRP is less than 5. I did obtain blood cultures and initiated patient on Zosyn as she was sensitive to this antibiotic on her last culture. I called and discussed the case with Dr. Adame who agreed to admit the patient due to failed outpatient therapy. I will consult Dr. Benavides. The patient was in agre ement with the treatment plan and was awaiting a bed on the floor - Lab Data Result diagrams: 08/09/19 06:47 08/12/19 07:39 Lab Results 08/08/19 08/08/19 Range/Units 15:50 15:50 WBC 5.5 (3.8-10.6) k/uL RBC 4.65 (3.80-5.40) m/uL Hgb 12.7 (11.4-16.0) gm/dL Hct 40.7 (34.0-46.0) % MCV 87.5 (80.0-100.0) fL MCH 27.4 (25.0-35.0) pg MCHC 31.3 (31.0-37.0) g/dL RDW 14.5 (11.5-15.5) % Plt Count 376 (150-450) k/uL Neutrophils % 54 % Lymphocytes % 35 % Monocytes % 5 % Eosinophils % 3 % Basophils % 1 % Neutrophils # 3.0 (1.3-7.7) k/uL Lymphocytes # 1.9 (1.0-4.8) k/uL Monocytes # 0.3 (0-1.0) k/uL Eosinophils # 0.2 (0-0.7) k/uL Basophils # 0.0 (0-0.2) k/uL Sodium 140 (137-145) mmol/L Potassium 4.7 (3.5-5.1) mmol/L Chloride 107 (98-107) mmol/L Carbon Dioxide 23 (22-30) mmol/L Anion Gap 10 mmol/L BUN 13 (7-17) mg/dL Creatinine 0.78 (0.52-1.04) mg/dL Est GFR (CKD-EPI)AfAm >90 (>60 ml/min/1.73 sqM) Est GFR (CKD-EPI)NonAf >90 (>60 ml/min/1.73 sqM) Glucose 85 (74-99) mg/dL Calcium 9.7 (8.4-10.2) mg/dL Total Bilirubin 0.4 (0.2-1.3) mg/dL AST 33 (14-36) U/L ALT 82 H (4-34) U/L Alkaline Phosphatase 161 H (38-126) U/L C-Reactive Protein <5.0 (<10.0) mg/L Total Protein 7.5 (6.3-8.2) g/dL Albumin 4.5 (3.5-5.0) g/dL Disposition Clinical Impression: Cellulitis Disposition: ADMITTED IP TO THIS [facility] Condition: Stable Is patient prescribed a controlled substance at d/c from ED?: No Decision to Admit Reason: Admit from EC Decision Date: 08/08/19 Decision Time: 16:35
[2019-08-08 16:12] LABS: Basophils % (A) 1 %; Eosinophils # (A) 0.2 k/uL (0-0.7); Eosinophils % (A) 3 %; HCT 40.7 % (34.0-46.0); HGB 12.7 gm/dL (11.4-16.0); Lymphocytes # (A) 1.9 k/uL (1.0-4.8); Lymphocytes % (A) 35 %; MCH 27.4 pg (25.0-35.0); MCHC 31.3 g/dL (31.0-37.0); MCV 87.5 fL (80.0-100.0); Mean Platelet Volume 6.8; Monocytes # (A) 0.3 k/uL (0-1.0); Monocytes % (A) 5 %; Neutrophils % (A) 54 %; Platelet Count 376 k/uL (150-450); RBC 4.65 m/uL (3.80-5.40); RDW 14.5 % (11.5-15.5); WBC 5.5 k/uL (3.8-10.6)
[2019-08-08 16:23] LABS: ALT 82 U/L (4-34); AST 33 U/L (14-36); African American GFR (CKD) >90 (>60 ml/min/1.73 sqM); Albumin 4.5 g/dL (3.5-5.0); Alkaline Phosphatase 161 U/L (38-126); Anion Gap 10 mmol/L; Blood Urea Nitrogen 13 mg/dL (7-17); C Reactive Protein <5.0 mg/L (<10.0); Calcium 9.7 mg/dL (8.4-10.2); Carbon Dioxide 23 mmol/L (22-30); Chloride 107 mmol/L (98-107); Glucose 85 mg/dL (74-99); Non-African American GFR(CKD) >90 (>60 ml/min/1.73 sqM); Potassium 4.7 mmol/L (3.5-5.1); Sodium 140 mmol/L (137-145); Total Bilirubin 0.4 mg/dL (0.2-1.3); Total Protein 7.5 g/dL (6.3-8.2)
[2019-08-08] MEDS ORDERED: NALOXONE 0.4 MG/ML 1 ML VIAL IV PRN (16:44)
[2019-08-08] MEDS ORDERED: MORPHINE SULFATE 2 MG/ML SYRINGE IVP ONE (16:51)
[2019-08-08] MEDS: SODIUM CHLORIDE 0.9% 1,000 ML IV SCH (16:58)
[2019-08-08] MEDS ORDERED: diphenhydrAMINE 50 MG/ML 1 ML VIAL IVP STA (17:15)
[2019-08-08] MEDS ORDERED: MORPHINE SULFATE 2 MG/ML SYRINGE IVP PRN (18:10)
[2019-08-08] MEDS ORDERED: PROMETHAZINE 12.5 MG IV PRN (19:09)
[2019-08-08] MEDS ORDERED: DICYCLOMINE 10 MG CAP PO PRN (19:09)
[2019-08-08] MEDS: ENOXAPARIN 80 MG/0.8 ML SYRINGE SQ SCH (20:28)
[2019-08-08] MEDS: TOPIRAMATE 25 MG TAB PO SCH (20:28)
[2019-08-09] MEDS ORDERED: ONDANSETRON 4 MG/2 ML VIAL ONE ×2 (03:40→14:36)
[2019-08-09] MEDS ORDERED: MORPHINE SULFATE 2 MG/ML SYRINGE ONE (03:40)
[2019-08-09 07:08] LABS: Basophils % (A) 1 %; Eosinophils # (A) 0.2 k/uL (0-0.7); Eosinophils % (A) 4 %; HCT 37.3 % (34.0-46.0); HGB 11.9 gm/dL (11.4-16.0); Hypochromasia Slight; Lymphocytes # (A) 2.7 k/uL (1.0-4.8); Lymphocytes % (A) 45 %; MCH 28.1 pg (25.0-35.0); MCV 87.7 fL (80.0-100.0); Mean Platelet Volume 6.6; Monocytes # (A) 0.3 k/uL (0-1.0); Monocytes % (A) 6 %; Neutrophils # (A) 2.5 k/uL (1.3-7.7); Neutrophils % (A) 42 %; Platelet Count 342 k/uL (150-450); RBC 4.25 m/uL (3.80-5.40); RDW 14.2 % (11.5-15.5); WBC 5.9 k/uL (3.8-10.6)
[2019-08-09 07:32] LABS: Potassium 4.1 mmol/L (3.5-5.1)
[2019-08-09 07:33] LABS: African American GFR (CKD) >90 (>60 ml/min/1.73 sqM); Anion Gap 8 mmol/L; Blood Urea Nitrogen 12 mg/dL (7-17); Calcium 9.1 mg/dL (8.4-10.2); Carbon Dioxide 21 mmol/L (22-30); Chloride 109 mmol/L (98-107); Glucose 83 mg/dL (74-99); Non-African American GFR(CKD) >90 (>60 ml/min/1.73 sqM); Sodium 138 mmol/L (137-145)
[2019-08-09] MEDS: SODIUM CHLORIDE 0.9% 1,000 ML IV SCH ×2 (08:05→20:30)
[2019-08-09] MEDS: ENOXAPARIN 80 MG/0.8 ML SYRINGE SQ SCH ×2 (08:06→20:25)
[2019-08-09] MEDS: MONTELUKAST 10 MG TAB PO SCH (08:06)
[2019-08-09] MEDS: LEVOFLOXACIN 500 MG TAB PO SCH (08:06)
[2019-08-09] MEDS: THYROID, PORK 30 MG TAB PO SCH (08:07)
[2019-08-09] MEDS: SCOPOLAMINE 1.5MG/72HR PATCH TRANSDERM SCH (08:07)
[2019-08-09] MEDS: TOPIRAMATE 25 MG TAB PO SCH ×2 (08:08→20:25)
[2019-08-09] MEDS: PRUCALOPRIDE SUCCINATE PO SCH (08:11)
[2019-08-09] MEDS: [UNRECOGNIZED DRUG - OTHER] PO SCH ×2 (08:12→16:29)
[2019-08-09] MEDS: Linaclotide [Linzess] PO SCH (08:12)
[2019-08-09] MEDS: PROMETHAZINE INJ 12.5 MG in SODIUM CHLORIDE 0.9% 50 ML IVPB PRN ×2 (09:41→19:38)
[2019-08-09] MEDS: HYDROmorphone 0.5 MG/0.5 ML SYRINGE IVP PRN ×3 (11:06→21:19)
--- NOTE | 2019-08-09 14:26 | HP ---
HISTORY AND PHYSICAL DATE OF SERVICE: 08/08/2019 CHIEF COMPLAINT: Abdominal wall cellulitis around jejunostomy tube. HISTORY OF PRESENT ILLNESS: This is another admission for this 39-year-old white female whose has gastroparesis and chronic problems with abdominal pain, vomiting, and recurrent infections around a jejunostomy tube. She has been having more and more difficulty with the cellulitis of the abdominal wall despite the antibiotics. She came to the emergency room and was admitted and will be on IV antibiotics as directed by Infectious Disease. REVIEW OF SYSTEMS: She has had no headaches, neurologic problems, change in vision or hearing, chest pain, shortness of breath, cough, nausea, vomiting, hematemesis, melena, hematochezia, jaundice, renal failure, hematuria, dysuria, frequency, etc. Past medical history, family history, personal and social histories are all otherwise unchanged from her recent admitting and discharge summaries. Medications can be found in the MAR section of the chart. PHYSICAL EXAMINATION: Blood pressure is 136/84 with a pulse of 87, respirations of 18 and she is afebrile. In general, she appeared to be slightly overweight and in no acute distress. Skin color is normal. Hydration is good. Head, ears, eyes, nose, mouth, and throat were normal and neck veins are not distended. Thyroid is not enlarged. Chest is clear. Cardiac exam demonstrates sinus rhythm and no murmurs or extra sounds. The abdomen is slightly protuberant. There is cellulitis in the left side of the abdomen around the jejunostomy tube. It is quite inflamed and tender, which could be consistent with MRSA. The bowel sounds are present. Extremities are normal. Neurological is intact. She is admitted to the hospital with diagnoses: 1. Cellulitis of the abdominal wall. 2. Gastroparesis. 3. Intractable nausea and vomiting. 4. Intractable pain. PLAN: 1. Bed rest. 2. IV fluids. 3. IV antibiotics. 4. Infectious Disease consult. MMODL / IJN: [id number] /
[2019-08-09] MEDS: ONDANSETRON 4 MG/2 ML VIAL IVP PRN (14:36)
--- NOTE | 2019-08-09 14:41 | PN ---
PROGRESS NOTE DATE OF SERVICE: 08/09/2019 CHIEF COMPLAINT: 1. Cellulitis of the abdominal wall. HISTORY OF PRESENT ILLNESS: This lady is doing a little bit better. The information is slightly better. She is having less pain. She has had no fever or chills. PHYSICAL EXAMINATION: Chest is clear. Cardiac exam is normal in sinus rhythm. The abdomen is soft. The area of cellulitis around the jejunostomy tube is still present and is still very violaceous. IMPRESSION: 1. Cellulitis of the abdominal wall. 2. Gastroparesis. PLAN: Continue with IV fluids and antibiotics. MMODL / IJN: [id number] /
[2019-08-09] MEDS: PIPERACILLIN-TAZOBACTAM 3.375 GM in SODIUM CHLORIDE 0.9% 100 ML IVPB SCH ×2 (16:00→23:01)
--- NOTE | 2019-08-09 22:09 | P.CONS ---
History of Present Illness - Reason for Consult Consult date: 08/09/19 J tube site cellulitis Requesting physician: Wong Adame - Chief Complaint Pain and redness at J tube site x days - History of Present Illness Patient is a 39-year-old female with a past medical history difficult for gastroparesis in this patient who did have a J-tube for feeding and history of recurrent cellulitis at the G-tube site patient apparently recently evaluated in the ER for abdominal pain patient did have a CT abdominal pelvis did not show any deeper abscess patient was treated with the Bactrim she also have cultures obtained antibiotic subsequent switched over to Levaquin and apparently abated have follow-up with her surgeon to try Vandervoort every 2 hours continue on Levaquin patient is presenting back to the hospital yesterday afternoon with increasing pain swelling and redness and some purulent drainage from that site patient describes the pain to be more of a sharp in nature intensity is almost 7 years of 10 no radiation therapy to have symptoms denies high-grade fever with the symptom the patient was evaluated by the ER physician on presented to the hospital the patient has been afebrile she did have a normal white count CRP of less than 5 blood culture has been obtained she was given a dose of Zosyn admitted to hospital infectious was consulted for further management of her antibiotic therapy review of her culture from 07/31/2019 did show that she grew E. coli Enterobacter as well as pseudomonas aeruginosa. Review of Systems Positive point has been mentioned in HPI rest of the systems are negative Past Medical History Past Medical History: Deep Vein Thrombosis (DVT), GERD/Reflux, Pulmonary Embolus (PE), Thyroid Disorder Additional Past Medical History / Comment(s): Other hx:Idiopathic gastroparesis, takes little in orally-has J tube for feedings-currently on hold and receiving TPN, chronic abdominal pain, R pulmonary embolism -2017, dvt R upper extremity 2018, pancreatitis once in 2018-thought stone somewhere, hypothyroid, chronic anemia, sinus problems, migraine. 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 J tube replaced-last repl megan in November or December 2018, piccs, mediport insertion Past Anesthesia/Blood Transfusion Reactions: No Reported Reaction Past Psychological History: Depression Additional Psychological History / Comment(s): . Smoking Status: Never smoker Past Alcohol Use History: None Reported Additional Past Alcohol Use History / Comment(s): PT DENIES SMOKING OR ANY ILLEGAL DRUG USE, HAS AN OCC DRINK. Past Drug Use History: None Reported - Past Family History Father Family Medical History: Hypertension Additional Family Medical History / Comment(s): Father is 57 yrs old.. Mother Family Medical History: No Reported History Additional Family Medical History / Comment(s): Mother is 57yrs old. Medications and Allergies Home Medications Medication Instructions Recorded Confirmed Type Montelukast Chew [Singulair] 10 mg PO DAILY 02/02/18 08/08/19 History Topiramate [Trokendi Xr] 50 mg PO HS 07/18/18 08/08/19 History Scopolamine 1.5MG/72Hr Patch 1 patch TRANSDERM Q72H #10 patch 07/31/18 08/08/19 Rx [TransDerm Scop] Thyroid,Pork [Winslow Thyroid] 60 mg PO Q48H 10/06/18 08/08/19 History Thyroid,Pork [Winslow Thyroid] 90 mg PO Q48H 10/06/18 08/08/19 History Prucalopride Succinate [Motegrity] 2 mg PO DAILY 01/14/19 08/08/19 History oxyCODONE HCL [oxyCODONE HCL (IR)] 10 mg PO Q8H PRN 04/20/19 08/08/19 History Linaclotide [Linzess] 290 mcg PO DAILY 05/24/19 08/08/19 History Tegaserod Hydrogen Maleate 6 mg PO AC-BID 05/24/19 08/08/19 History [Zelnorm] Enoxaparin [Lovenox] 80 mg SQ Q12H 06/08/19 08/08/19 History Phenergen 12.5 mg IV Q8HR PRN 06/08/19 08/08/19 History Ondansetron 4mg 4 mg IV Q8H PRN 06/23/19 08/08/19 History Levofloxacin [Levaquin] 500 mg PO DAILY 3 Days #3 tab 08/07/19 08/08/19 Rx Dicyclomine [Bentyl] 10 mg PO Q8H PRN 08/08/19 08/08/19 History Allergies Allergy/AdvReac Type Severity Reaction Status Date / Time metoclopramide [From Reglan] AdvReac Mild jittery Verified 08/08/19 17:49 prochlorperazine AdvReac Mild JITTERY Verified 08/08/19 17:49 [From Compazine] Physical Exam Vitals: Vital Signs Temp Pulse Pulse Resp BP BP Pulse Ox 08/09/19 14:46 98.7 F 79 18 113/70 100 08/09/19 07:00 98.4 F 68 18 91/59 98 08/09/19 00:35 98.1 F 74 14 104/61 98 08/08/19 22:48 18 08/08/19 20:00 18 08/08/19 19:03 98.4 F 74 14 111/57 100 08/08/19 17:53 98.0 F 80 18 129/75 100 Intake and Output 08/09/19 08/09/19 08/09/19 06:59 14:59 22:59 Intake Total 600 Balance 600 Intake: Intake, IV Titration 600 Amount Sodium Chloride 0.9% 1, 600 000 ml @ 75 mls/hr IV . [id number] FOR[facility]LY [facility], [facility] Rx#:[id number] Other: Voiding Method Toilet # Voids 1 GENERAL DESCRIPTION: Middle-aged female lying in bed, no distress. No tachypnea or accessory muscle of respiration use. HEENT: Shows Pallor , no scleral icterus. Oral mucous membrane is dry. NECK: Trachea central, no thyromegaly. LUNGS: Unlabored breathing. Clear to auscultation anteriorly. No wheeze or cr ackle. HEART: S1, S2, regular rate and rhythm. ABDOMEN: Soft, G-tube site with minimal erythema slightly swelling minimal purulent drainage was noticed no foul-smelling EXTREMITIES: No edema of feet. SKIN: No rash, no masses palpable. NEUROLOGICAL: The patient is awake, alert, oriented x3, mood and affect normal. Results CBC & Chem 7: 08/09/19 06:47 08/09/19 06:47 Labs: Abnormal Lab Results - Last 24 Hours (Table) 08/09/19 Range/Units 06:47 Chloride 109 H (98-107) mmol/L Carbon Dioxide 21 L (22-30) mmol/L Assessment and Plan Assessment: -patient with a J-tube site cellulitis in this patient who did have history recurrence of the mass at that site patient did have a CT abdominal pelvis completed on 07/31/2019 which did not show any abscess at the J-tube site she is failed outpatient oral Bactrim and Levaquin therapy with the cultures done on 07/31/2019 did show E. coli and pseudomonas aeruginosa sensitive to Zosyn (1) Abdominal wall cellulitis Current Visit: No Status: Acute Code(s): L03.311 - CELLULITIS OF ABDOMINAL WALL SNOMED Code(s): 23513121 Plan: 1-We will start patient on Zosyn 3.375 g every 8 hour 2-local care with Triad cream daily We will follow on clinical condition and cultures to further adjust medication if needed Thank you for this consultation we will follow the patient along with you Time with Patient: Greater than 30
[2019-08-10] MEDS: HYDROmorphone 0.5 MG/0.5 ML SYRINGE IVP PRN ×6 (03:01→23:47)
[2019-08-10] MEDS ORDERED: ONDANSETRON 4 MG/2 ML VIAL ONE ×2 (05:32)
[2019-08-10] MEDS: ONDANSETRON 4 MG/2 ML VIAL IVP PRN ×2 (05:32→16:08)
[2019-08-10] MEDS: SODIUM CHLORIDE 0.9% 1,000 ML IV SCH ×2 (07:45→23:41)
[2019-08-10] MEDS: LEVOFLOXACIN 500 MG TAB PO SCH (07:46)
[2019-08-10] MEDS: ENOXAPARIN 80 MG/0.8 ML SYRINGE SQ SCH ×2 (07:46→21:53)
[2019-08-10] MEDS: MONTELUKAST 10 MG TAB PO SCH (07:46)
[2019-08-10] MEDS: Linaclotide [Linzess] PO SCH (07:47)
[2019-08-10] MEDS: THYROID, PORK 30 MG TAB PO SCH (07:47)
[2019-08-10] MEDS: PIPERACILLIN-TAZOBACTAM 3.375 GM in SODIUM CHLORIDE 0.9% 100 ML IVPB SCH ×2 (07:47→15:39)
[2019-08-10] MEDS: PRUCALOPRIDE SUCCINATE PO SCH (07:48)
[2019-08-10] MEDS: [UNRECOGNIZED DRUG - OTHER] PO SCH ×2 (07:48→16:32)
[2019-08-10] MEDS: TOPIRAMATE 25 MG TAB PO SCH ×2 (07:51→21:53)
[2019-08-10] MEDS: PROMETHAZINE INJ 12.5 MG in SODIUM CHLORIDE 0.9% 50 ML IVPB PRN ×2 (12:27→21:52)
--- NOTE | 2019-08-10 14:01 | PN ---
PROGRESS NOTE DATE OF SERVICE: 08/10/2019 REASON FOR FOLLOWUP: J-tube site cellulitis. INTERVAL HISTORY: The patient is currently afebrile, she is breathing comfortably. Still complaining of pain to the J-tube site and drainage. No chest pain, no cough. No abdominal pain, no diarrhea. PHYSICAL EXAMINATION: Blood pressure 106/70 with a pulse of 68, temperature 98.2. She is 99% on room air. General description is a middle-aged female, up in the chair in no distress. RESPIRATORY SYSTEM: Unlabored breathing, clear to auscultation anteriorly. HEART: S1, S2. Regular rate and rhythm. ABDOMEN: Soft, J-tube site redness has decreased. No drainage was noticed. LABS: Hemoglobin is 11.9, white count of 5.9. BUN of 12, creatinine 0.76. DIAGNOSTIC IMPRESSION AND PLAN: Patient with J-tube site cellulitis and possible small abscess. Cultures have been multiple pathogen growing Pseudomonas. The patient is covered with Zosyn to continue and will monitor clinical course closely. MMODL / IJN: [id number] /
[2019-08-10] MEDS ORDERED: MVI, ADULT NO.4 WITH VIT K 10 ML, TRACE (CONC-1ML/DOSE) 1 ML in AMINO ACID 5%-D15W+LYTE... IV ONE ×3 (16:00)
[2019-08-10 16:11] LABS: Ionized Calcium 4.6 mg/dL (4.5-5.3)
[2019-08-10 16:24] LABS: African American GFR (CKD) >90 (>60 ml/min/1.73 sqM); Albumin 4.1 g/dL (3.5-5.0); Anion Gap 13 mmol/L; Blood Urea Nitrogen 11 mg/dL (7-17); Calcium 9.2 mg/dL (8.4-10.2); Carbon Dioxide 15 mmol/L (22-30); Chloride 110 mmol/L (98-107); Glucose 70 mg/dL (74-99); Magnesium 1.8 mg/dL (1.6-2.3); Non-African American GFR(CKD) 86 (>60 ml/min/1.73 sqM); Phosphorus 4.4 mg/dL (2.5-4.5); Potassium 4.5 mmol/L (3.5-5.1); Sodium 138 mmol/L (137-145); Triglycerides 211 mg/dL (<150)
--- NOTE | 2019-08-10 16:46 | PN ---
PROGRESS NOTE DATE OF SERVICE: 08/10/2019 CHIEF COMPLAINT: Abdominal wall cellulitis. HISTORY OF PRESENT ILLNESS: This lady's infection is a little bit better and the discomfort has improved slightly. She is still having a lot of difficulty with her usual abdominal pain related to her gastroparesis. PHYSICAL EXAMINATION: The area of cellulitis on the abdominal wall around the jejunostomy site has improved slightly. Chest is clear. Cardiac exam is normal. Abdomen is soft. Extremities are normal. IMPRESSION: 1. Cellulitis of the abdominal wall. 2. Gastroparesis. 3. Intractable abdominal pain. 4. Intractable nausea. PLAN: 1. Increase Dilaudid frequency. 2. Continue with IV fluids and antibiotics. MMODL / IJN: [id number] /
[2019-08-10] MEDS: FAT EMULSION 20% 250 ML in EMPTY BAG 1 BAG IV SCH (17:17)
[2019-08-11] MEDS: PIPERACILLIN-TAZOBACTAM 3.375 GM in SODIUM CHLORIDE 0.9% 100 ML IVPB SCH ×4 (00:42→23:41)
[2019-08-11 00:47] LABS: Glucose,Whole Blood 83 mg/dL (75-99)
[2019-08-11] MEDS: HYDROmorphone 0.5 MG/0.5 ML SYRINGE IVP PRN ×6 (03:35→23:43)
[2019-08-11] MEDS ORDERED: ONDANSETRON 4 MG/2 ML VIAL ONE ×3 (03:35)
[2019-08-11] MEDS: ONDANSETRON 4 MG/2 ML VIAL IVP PRN ×3 (03:35→19:47)
[2019-08-11 06:15] LABS: Glucose,Whole Blood 96 mg/dL (75-99)
[2019-08-11] MEDS: ENOXAPARIN 80 MG/0.8 ML SYRINGE SQ SCH ×2 (08:10→19:47)
[2019-08-11] MEDS: THYROID, PORK 30 MG TAB PO SCH (08:10)
[2019-08-11] MEDS: LEVOFLOXACIN 500 MG TAB PO SCH (08:11)
[2019-08-11] MEDS: Linaclotide [Linzess] PO SCH (08:12)
[2019-08-11] MEDS: TOPIRAMATE 25 MG TAB PO SCH ×2 (08:12→19:47)
[2019-08-11] MEDS: MONTELUKAST 10 MG TAB PO SCH (08:12)
[2019-08-11] MEDS: PRUCALOPRIDE SUCCINATE PO SCH (08:13)
[2019-08-11] MEDS: [UNRECOGNIZED DRUG - OTHER] PO SCH ×2 (08:14→16:46)
[2019-08-11] MEDS: PROMETHAZINE INJ 12.5 MG in SODIUM CHLORIDE 0.9% 50 ML IVPB PRN ×2 (08:18→23:22)
[2019-08-11 08:27] LABS: African American GFR (CKD) >90 (>60 ml/min/1.73 sqM); Anion Gap 7 mmol/L; Blood Urea Nitrogen 11 mg/dL (7-17); Carbon Dioxide 22 mmol/L (22-30); Chloride 108 mmol/L (98-107); Glucose 95 mg/dL (74-99); Magnesium 1.8 mg/dL (1.6-2.3); Non-African American GFR(CKD) 81 (>60 ml/min/1.73 sqM); Phosphorus 4.9 mg/dL (2.5-4.5); Potassium 3.9 mmol/L (3.5-5.1); Sodium 137 mmol/L (137-145)
[2019-08-11] MEDS: SODIUM CHLORIDE 0.9% 1,000 ML IV SCH (10:41)
[2019-08-11 11:37] LABS: Glucose,Whole Blood 106 mg/dL (75-99)
--- NOTE | 2019-08-11 16:47 | PN ---
PROGRESS NOTE CHIEF COMPLAINT: Intractable abdominal pain and cellulitis of the abdominal wall. HISTORY OF PRESENT ILLNESS: This lady is about the same. Her cellulitis is improving, but very slowly. She has had no fever, chills, etc. PHYSICAL EXAMINATION: Chest is clear. Cardiac exam is normal. Abdomen is soft and nontender and the cellulitis around the jejunostomy tube is essentially the same as yesterday. IMPRESSION: 1. Cellulitis of abdominal wall. 2. Gastroparesis with intractable abdominal pain. PLAN: Continue with IV fluids and antibiotics and follow with Infectious Disease. MMODL / IJN: [id number] /
[2019-08-11] MEDS: FAT EMULSION 20% 250 ML in EMPTY BAG 1 BAG IV SCH (16:49)
[2019-08-11 17:22] LABS: Glucose,Whole Blood 137 mg/dL (75-99)
--- NOTE | 2019-08-11 17:29 | PN ---
PROGRESS NOTE DATE OF SERVICE: 08/11/2019 REASON FOR FOLLOWUP: J tube site cellulitis. INTERVAL HISTORY: The patient is currently afebrile. The patient is feeling slightly better. Still complaining of pain around the J-tube site though. No vomiting. No chest pain, shortness of breath or cough. PHYSICAL EXAMINATION: Blood pressure 111/65 with a pulse of 83, temperature 98.3. She is 100% on room air. General description is a middle-aged female up in the chair in no distress. Respiratory system: Unlabored breathing. Clear to auscultation anteriorly. Heart S1, S2. Regular rate and rhythm. Abdomen soft, no tenderness. The J-tube site erythema has decreased. No drainage. LABS: Creatinine 0.91. DIAGNOSTIC IMPRESSION AND PLAN: Patient with J-tube site cellulitis outpatient culture positive for E coli and Pseudomonas. Patient is currently covered with Zosyn to continue. With Triad cream to the J- tube site and we will monitor clinical course closely. MMODL / IJN: [id number] / MTDSancho
[2019-08-12 00:15] LABS: Glucose,Whole Blood 126 mg/dL (75-99)
[2019-08-12] MEDS: SODIUM CHLORIDE 0.9% 1,000 ML IV SCH ×2 (02:40→14:29)
[2019-08-12] MEDS: HYDROmorphone 0.5 MG/0.5 ML SYRINGE IVP PRN ×5 (04:12→20:24)
[2019-08-12] MEDS ORDERED: ONDANSETRON 4 MG/2 ML VIAL ONE ×3 (04:12)
[2019-08-12] MEDS: ONDANSETRON 4 MG/2 ML VIAL IVP PRN ×3 (04:12→20:25)
[2019-08-12 05:39] LABS: Glucose,Whole Blood 119 mg/dL (75-99)
[2019-08-12] MEDS: THYROID, PORK 30 MG TAB PO SCH (07:31)
[2019-08-12] MEDS: SCOPOLAMINE 1.5MG/72HR PATCH TRANSDERM SCH (07:31)
[2019-08-12] MEDS: PIPERACILLIN-TAZOBACTAM 3.375 GM in SODIUM CHLORIDE 0.9% 100 ML IVPB SCH ×3 (07:31→23:27)
[2019-08-12] MEDS: ENOXAPARIN 80 MG/0.8 ML SYRINGE SQ SCH ×2 (07:31→20:25)
[2019-08-12] MEDS: LEVOFLOXACIN 500 MG TAB PO SCH (07:32)
[2019-08-12] MEDS: TOPIRAMATE 25 MG TAB PO SCH ×2 (07:32→20:25)
[2019-08-12] MEDS: MONTELUKAST 10 MG TAB PO SCH (07:32)
[2019-08-12] MEDS: [UNRECOGNIZED DRUG - OTHER] PO SCH ×2 (07:33→16:56)
[2019-08-12] MEDS: Linaclotide [Linzess] PO SCH (07:33)
[2019-08-12] MEDS: PRUCALOPRIDE SUCCINATE PO SCH (07:34)
[2019-08-12 08:16] LABS: African American GFR (CKD) >90 (>60 ml/min/1.73 sqM); Anion Gap 8 mmol/L; Blood Urea Nitrogen 12 mg/dL (7-17); Calcium 8.8 mg/dL (8.4-10.2); Carbon Dioxide 19 mmol/L (22-30); Chloride 110 mmol/L (98-107); Glucose 113 mg/dL (74-99); Non-African American GFR(CKD) 89 (>60 ml/min/1.73 sqM); Phosphorus 3.5 mg/dL (2.5-4.5); Potassium 4.2 mmol/L (3.5-5.1); Sodium 137 mmol/L (137-145)
[2019-08-12 11:53] LABS: Glucose,Whole Blood 127 mg/dL (75-99)
[2019-08-12] MEDS: PROMETHAZINE INJ 12.5 MG in SODIUM CHLORIDE 0.9% 50 ML IVPB PRN (16:33)
[2019-08-12 16:44] LABS: Glucose,Whole Blood 88 mg/dL (75-99)
[2019-08-12] MEDS: FAT EMULSION 20% 250 ML in EMPTY BAG 1 BAG IV SCH (16:56)
--- NOTE | 2019-08-13 00:05 | PN ---
PROGRESS NOTE DATE OF SERVICE: 08/12/2019 REASON FOR FOLLOWUP: J-tube site cellulitis. INTERVAL HISTORY: The patient is currently afebrile. Apparently, she has slight more drainage and irritation of her J-tube site. Denies having any chest pain or cough. No nausea, vomiting or diarrhea. PHYSICAL EXAMINATION: Blood pressure 119/81 with a pulse of 94, temperature 98.3. She is 100% on room air. General description is a middle-aged female up in a chair in no distress. RESPIRATORY SYSTEM: Unlabored breathing, clear to auscultation anteriorly. HEART: S1, S2. Regular rate and rhythm. ABDOMEN: The J-tube site did have more redness today with some drainage. No purulence. LABS: BUN of 12, creatinine 0.84. DIAGNOSTIC IMPRESSION AND PLAN: Patient with a J-tube site cellulitis. Outpatient culture with Escherichia coli and Pseudomonas. Patient is covered with Zosyn. RN has been advised to apply Triad cream to protect it from any GI secretions and further irritation and monitor clinical course closely. MMODL / IJN: [id number] / MTDD
[2019-08-13] MEDS: HYDROmorphone 0.5 MG/0.5 ML SYRINGE IVP PRN ×6 (00:24→20:50)
[2019-08-13 00:27] LABS: Glucose,Whole Blood 79 mg/dL (75-99)
[2019-08-13] MEDS: PROMETHAZINE INJ 12.5 MG in SODIUM CHLORIDE 0.9% 50 ML IVPB PRN ×3 (04:23→22:55)
[2019-08-13] MEDS: SODIUM CHLORIDE 0.9% 1,000 ML IV SCH ×2 (04:32→15:49)
[2019-08-13 06:07] LABS: Glucose,Whole Blood 101 mg/dL (75-99)
[2019-08-13] MEDS: PIPERACILLIN-TAZOBACTAM 3.375 GM in SODIUM CHLORIDE 0.9% 100 ML IVPB SCH ×2 (07:11→16:22)
[2019-08-13] MEDS: LEVOFLOXACIN 500 MG TAB PO SCH (07:15)
[2019-08-13] MEDS: [UNRECOGNIZED DRUG - OTHER] PO SCH ×2 (07:15→17:22)
[2019-08-13] MEDS: ENOXAPARIN 80 MG/0.8 ML SYRINGE SQ SCH ×2 (07:15→20:50)
[2019-08-13] MEDS: MONTELUKAST 10 MG TAB PO SCH (07:15)
[2019-08-13] MEDS: PRUCALOPRIDE SUCCINATE PO SCH (07:16)
[2019-08-13] MEDS: TOPIRAMATE 25 MG TAB PO SCH ×2 (07:17→20:50)
[2019-08-13] MEDS: Linaclotide [Linzess] PO SCH (07:17)
[2019-08-13] MEDS: THYROID, PORK 30 MG TAB PO SCH (07:18)
[2019-08-13 07:53] LABS: African American GFR (CKD) >90 (>60 ml/min/1.73 sqM); Anion Gap 7 mmol/L; Blood Urea Nitrogen 13 mg/dL (7-17); Calcium 8.8 mg/dL (8.4-10.2); Carbon Dioxide 19 mmol/L (22-30); Chloride 111 mmol/L (98-107); Glucose 97 mg/dL (74-99); Non-African American GFR(CKD) 87 (>60 ml/min/1.73 sqM); Sodium 137 mmol/L (137-145)
[2019-08-13 08:04] LABS: Potassium 4.2 mmol/L (3.5-5.1)
[2019-08-13 08:05] LABS: Magnesium 1.9 mg/dL (1.6-2.3); Phosphorus 3.3 mg/dL (2.5-4.5)
[2019-08-13] MEDS ORDERED: ONDANSETRON 4 MG/2 ML VIAL ONE (09:01)
[2019-08-13] MEDS: ONDANSETRON 4 MG/2 ML VIAL IVP PRN ×2 (09:01→16:22)
[2019-08-13 11:52] LABS: Glucose,Whole Blood 103 mg/dL (75-99)
[2019-08-13 12:37] VITALS: BMI 31.0
[2019-08-13] MEDS: HYDROPHILIC CREAM 180 GM TUBE TOPICAL SCH (16:17)
[2019-08-13 16:48] LABS: Glucose,Whole Blood 106 mg/dL (75-99)
[2019-08-13] MEDS: FAT EMULSION 20% 250 ML in EMPTY BAG 1 BAG IV SCH (17:23)
--- NOTE | 2019-08-13 17:24 | PN ---
PROGRESS NOTE DATE OF SERVICE: 08/13/2019 CHIEF COMPLAINT: Cellulitis abdominal wall. HISTORY OF PRESENT ILLNESS: This lady's situation is just about the same. She still has cellulitis. Skin is quite inflamed. She is beginning to look like this may be more of a chemical situation regarding the skin around the jejunostomy tube. PHYSICAL EXAMINATION: Chest is clear. Cardiac exam is normal. Abdomen is soft, nontender and she is afebrile. IMPRESSION: Cellulitis abdominal wall with macerations around the jejunostomy tube. PLAN: Continue with current treatment and a barrier cream may be helpful. She is being followed by Infectious Disease. MMODL / IJN: [id number] /
--- NOTE | 2019-08-13 17:59 | PN ---
PROGRESS NOTE DATE OF SERVICE: 08/13/2019 CHIEF COMPLAINT: Cellulitis of abdominal wall. HISTORY OF PRESENT ILLNESS: The soft tissue around the jejunostomy seems to be more red and inflamed than it has been. She is describing it as being quite uncomfortable. She has had no fever or chills. PHYSICAL EXAMINATION: Chest is clear. The cardiac exam is normal. The abdomen is soft. The maceration or cellulitis around the tube seems to be slightly worse. IMPRESSION: 1. Cellulitis of the abdominal wall. 2. Gastroparesis. PLAN: Wait for any further recommendations from Infectious Disease. MMODL / IJN: [id number] /
--- NOTE | 2019-08-13 19:00 | PN ---
PROGRESS NOTE DATE OF SERVICE: 08/13/2019 REASON FOR FOLLOWUP: J-tube site cellulitis. INTERVAL HISTORY: The patient is currently afebrile. She is feeling slightly better today. Overall pain and discomfort to the J-tube site is slightly improved. No chest pain, shortness of breath or cough. No vomiting or diarrhea. PHYSICAL EXAMINATION: Blood pressure 107/66, pulse of 80, temperature 98.7. She is 98% on room air. General description is a middle-aged female up in the chair in no distress. RESPIRATORY SYSTEM: Unlabored breathing. Clear to auscultation anteriorly. HEART: S1, S2. Regular rate and rhythm. ABDOMEN: Soft. J-tube site with erythema and some drainage. LABS: BUN of 13, creatinine 0.86. DIAGNOSTIC IMPRESSION AND PLAN: Patient with J-tube site cellulitis. Outpatient culture positive for multiple pathogens. Patient is covered with Zosyn. Plan to finish therapy with oral Cipro. Continue with supportive care. MMODL / IJN: [id number] /
[2019-08-14 00:54] LABS: Glucose,Whole Blood 125 mg/dL (75-99)
[2019-08-14] MEDS: HYDROmorphone 0.5 MG/0.5 ML SYRINGE IVP PRN ×6 (01:04→21:43)
[2019-08-14] MEDS: PIPERACILLIN-TAZOBACTAM 3.375 GM in SODIUM CHLORIDE 0.9% 100 ML IVPB SCH ×3 (01:37→16:00)
[2019-08-14] MEDS: ONDANSETRON 4 MG/2 ML VIAL IVP PRN ×2 (04:37→13:26)
[2019-08-14 05:42] LABS: Glucose,Whole Blood 100 mg/dL (75-99)
[2019-08-14 07:45] LABS: African American GFR (CKD) >90 (>60 ml/min/1.73 sqM); Anion Gap 8 mmol/L; Blood Urea Nitrogen 15 mg/dL (7-17); Calcium 8.9 mg/dL (8.4-10.2); Carbon Dioxide 20 mmol/L (22-30); Chloride 109 mmol/L (98-107); Glucose 101 mg/dL (74-99); Magnesium 1.9 mg/dL (1.6-2.3); Non-African American GFR(CKD) 87 (>60 ml/min/1.73 sqM); Phosphorus 4.7 mg/dL (2.5-4.5); Sodium 137 mmol/L (137-145)
[2019-08-14 07:54] LABS: Potassium 4.2 mmol/L (3.5-5.1)
[2019-08-14] MEDS: SODIUM CHLORIDE 0.9% 1,000 ML IV SCH ×2 (09:06→22:50)
[2019-08-14] MEDS: LEVOFLOXACIN 500 MG TAB PO SCH (09:11)
[2019-08-14] MEDS: ENOXAPARIN 80 MG/0.8 ML SYRINGE SQ SCH ×2 (09:11→21:35)
[2019-08-14] MEDS: MONTELUKAST 10 MG TAB PO SCH (09:11)
[2019-08-14] MEDS: [UNRECOGNIZED DRUG - OTHER] PO SCH ×2 (09:12→17:56)
[2019-08-14] MEDS: PRUCALOPRIDE SUCCINATE PO SCH (09:12)
[2019-08-14] MEDS: Linaclotide [Linzess] PO SCH (09:12)
[2019-08-14] MEDS: THYROID, PORK 30 MG TAB PO SCH (09:13)
[2019-08-14] MEDS: TOPIRAMATE 25 MG TAB PO SCH ×2 (09:13→21:35)
[2019-08-14] MEDS: PROMETHAZINE INJ 12.5 MG in SODIUM CHLORIDE 0.9% 50 ML IVPB PRN ×2 (10:00→21:42)
[2019-08-14 11:42] LABS: Glucose,Whole Blood 133 mg/dL (75-99)
--- NOTE | 2019-08-14 13:58 | PN ---
PROGRESS NOTE DATE OF SERVICE: 08/14/2019 REASON FOR FOLLOWUP: J-tube site cellulitis. INTERVAL HISTORY: The patient is currently afebrile. The patient is breathing comfortably. The patient's pain to the J-tube site seems to have improved. No chest pain, shortness of breath or cough. No abdominal pain or diarrhea. PHYSICAL EXAMINATION: Blood pressure 108/64 with a pulse of 63, temperature 98.2, she is 100% on room air. General description is a middle-aged female, up in the chair in no distress. RESPIRATORY SYSTEM: Unlabored breathing, clear to auscultation. HEART: S1, S2. Regular rate and rhythm. ABDOMEN: The J-tube site erythema has improved. LABS: Creatinine 0.86. DIAGNOSTIC IMPRESSION AND PLAN: Patient with J-tube site cellulitis, cultures with E coli, Enterobacter and Pseudomonas, all sensitive to Cipro. Complete about 3 days of IV Zosyn. Will switch her antibiotic to Cipro. Local care to continue with triad cream and close outpatient followup. MMODL / IJN: [id number] /
--- NOTE | 2019-08-14 14:10 | PN ---
PROGRESS NOTE CHIEF COMPLAINT: Cellulitis abdominal wall. HISTORY OF PRESENT ILLNESS: This lady seems to be doing a little bit better. A barrier cream has been applied around the jejunostomy tube and seems to be controlling information a little bit better. This is covering at least part of the circumferential area of skin around the tube. PHYSICAL EXAM: There is a little bit less macerations. She is having a little less discomfort. Chest is clear and cardiac exam is normal. The abdomen is soft, nontender. IMPRESSION: 1. Cellulitis abdominal wall. 2. Gastroparesis. PLAN: Continue with inpatient treatment on IV antibiotics until Infectious Disease feels that she can be safely discharged home. MMODL / IJN: [id number] /
[2019-08-14] MEDS: HYDROPHILIC CREAM 180 GM TUBE TOPICAL SCH (16:01)
[2019-08-14 17:10] LABS: Glucose,Whole Blood 96 mg/dL (75-99)
[2019-08-14] MEDS: FAT EMULSION 20% 250 ML in EMPTY BAG 1 BAG IV SCH (17:56)
[2019-08-15] MEDS: PIPERACILLIN-TAZOBACTAM 3.375 GM in SODIUM CHLORIDE 0.9% 100 ML IVPB SCH ×2 (00:41→08:27)
[2019-08-15 00:58] LABS: Glucose,Whole Blood 70 mg/dL (75-99)
[2019-08-15] MEDS: HYDROmorphone 0.5 MG/0.5 ML SYRINGE IVP PRN ×4 (01:11→13:00)
[2019-08-15] MEDS: DEXTROSE 5%-0.45% NACL 1,000 ML IV SCH ×2 (01:11→09:53)
[2019-08-15] MEDS: ONDANSETRON 4 MG/2 ML VIAL IVP PRN ×2 (01:12→13:01)
[2019-08-15 05:38] LABS: Glucose,Whole Blood 90 mg/dL (75-99)
[2019-08-15 07:55] LABS: African American GFR (CKD) >90 (>60 ml/min/1.73 sqM); Anion Gap 10 mmol/L; Blood Urea Nitrogen 14 mg/dL (7-17); Calcium 8.8 mg/dL (8.4-10.2); Carbon Dioxide 20 mmol/L (22-30); Chloride 108 mmol/L (98-107); Glucose 97 mg/dL (74-99); Magnesium 1.9 mg/dL (1.6-2.3); Non-African American GFR(CKD) 79 (>60 ml/min/1.73 sqM); Phosphorus 4.7 mg/dL (2.5-4.5); Potassium 3.9 mmol/L (3.5-5.1); Sodium 138 mmol/L (137-145)
[2019-08-15 07:57] VITALS: BP 102/64; PULSE 64; RESP 16; TEMP 98.4
[2019-08-15] MEDS: MONTELUKAST 10 MG TAB PO SCH (08:25)
[2019-08-15] MEDS: ENOXAPARIN 80 MG/0.8 ML SYRINGE SQ SCH (08:25)
[2019-08-15] MEDS: LEVOFLOXACIN 500 MG TAB PO SCH (08:25)
[2019-08-15] MEDS: [UNRECOGNIZED DRUG - OTHER] PO SCH (08:26)
[2019-08-15] MEDS: TOPIRAMATE 25 MG TAB PO SCH (08:26)
[2019-08-15] MEDS: THYROID, PORK 30 MG TAB PO SCH (08:26)
[2019-08-15] MEDS: Linaclotide [Linzess] PO SCH (08:27)
[2019-08-15] MEDS: PRUCALOPRIDE SUCCINATE PO SCH (08:27)
[2019-08-15] MEDS: PROMETHAZINE INJ 12.5 MG in SODIUM CHLORIDE 0.9% 50 ML IVPB PRN (08:28)
[2019-08-15] MEDS: SCOPOLAMINE 1.5MG/72HR PATCH TRANSDERM SCH (09:52)
[2019-08-15] MEDS: SODIUM CHLORIDE 0.9% 1,000 ML IV SCH (09:53)
[2019-08-15] MEDS: HYDROPHILIC CREAM 180 GM TUBE TOPICAL SCH (09:53)
[2019-08-15 11:37] LABS: Glucose,Whole Blood 113 mg/dL (75-99)
--- NOTE | 2019-08-15 16:43 | P.PN ---
Progress Note - Text Progress Note Date: 08/15/19 REASON FOR FOLLOWUP: J-tube site cellulitis. INTERVAL HISTORY: The patient remains to be afebrile. The patient is breathing comfortably. The patient's pain to the J-tube site seems to have improved. The patient denies chest pain, shortness of breath or cough. No abdominal pain or diarrhea. PHYSICAL EXAMINATION: Blood pressure 104/64 with a pulse of 64, temperature 98.6, she is 98% on room air. General description is a middle-aged female, up in the chair in no distress. RESPIRATORY SYSTEM: Unlabored breathing, clear to auscultation. HEART: S1, S2. Regular rate and rhythm. ABDOMEN: The J-tube site erythema has improved. LABS: No CBC creatinine 0.93 DIAGNOSTIC IMPRESSION AND PLAN: Patient with J-tube site cellulitis, cultures with E coli, Enterobacter and Pseudomonas, all sensitive to Cipro. Patient received IV Zosyn inpatient which Will be switch to Cipro, prescription sent to pharmacy, Local care to continue with triad cream and close outpatient followup.
--- NOTE | 2019-08-15 18:27 | DS ---
DISCHARGE SUMMARY CHIEF COMPLAINT: Cellulitis of abdominal wall. HISTORY OF PRESENT ILLNESS AND PHYSICAL EXAMINATION: Details of this lady's history and physical can be found in the initial workup. LABORATORY STUDIES: While she was in the hospital she had laboratory studies, details of which can be found in the laboratory section of her chart. COURSE IN THE HOSPITAL: After admission she was seen by Infectious Disease and started on IV antibiotics. Cellulitis did start to resolve. Her situation became more or less stable, and it was determined that a lot of the difficulty was due to maceration around the jejunostomy tube from leaking of small bowel contents. A barrier cream was started, and because there was no longer any active infection, it was felt that she could be discharged. She will go home on August 14. She will go home on her usual activity, diet and medication along with TPN. She follows with home nursing. She will be contacted by our office regarding transition of care. FINAL DIAGNOSES: 1. Cellulitis of abdominal wall. 2. Maceration of abdominal wall skin around jejunostomy tube. 3. Gastroparesis. 4. Intractable abdominal pain. OPERATIONS: None. CONSULTATION: Infectious Disease. She is improved. MMODL / IJN: [id number] /
== END 2019-08-15 13:40 | disposition home or self-care (01) | DRG 394 ==
LOC: EC 14:50 → 4SSUR 16:44
PROVIDERS: ADMIT Family Medicine; ATTEND Family Medicine
PROC: 3E0336Z Introduction of Nutritional Substance into Peripheral Vein, Percutaneous Approach (ICD-10-PCS; principal; 2019-08-10)
DX: K94.12 Enterostomy infection (principal); L03.311 Cellulitis of abdominal wall; B96.5 Pseudomonas (aeruginosa) (mallei) (pseudomallei) as the cause of diseases classified elsewhere; B96.20 Unspecified Escherichia coli [E. coli] as the cause of diseases classified elsewhere; B96.89 Other specified bacterial agents as the cause of diseases classified elsewhere; K31.84 Gastroparesis; G89.29 Other chronic pain; E03.9 Hypothyroidism, unspecified; Z11.59 Encounter for screening for other viral diseases; K21.9 Gastro-esophageal reflux disease without esophagitis; Z79.01 Long term (current) use of anticoagulants; Z79.899 Other long term (current) drug therapy; Z86.711 Personal history of pulmonary embolism; Z86.718 Personal history of other venous thrombosis and embolism; Z86.19 Personal history of other infectious and parasitic diseases; Z90.49 Acquired absence of other specified parts of digestive tract; Z98.891 History of uterine scar from previous surgery; Z86.59 Personal history of other mental and behavioral disorders; Z86.69 Personal history of other diseases of the nervous system and sense organs; Z86.2 Personal history of diseases of the blood and blood-forming organs and certain disorders involving the immune mechanism; Z98.890 Other specified postprocedural states; Z88.8 Allergy status to other drugs, medicaments and biological substances; Y83.3 Surgical operation with formation of external stoma as the cause of abnormal reaction of the patient, or of later complication, without mention of misadventure at the time of the procedure; Z82.49 Family history of ischemic heart disease and other diseases of the circulatory system
CPT/HCPCS: 36415; 80048; 80053; 82040; 82330; 83605; 83735; 84100; 84478; 85025; 86140; 87040; 87635; 96365; 96374; 96375; 99284

== ENCOUNTER 2019-08-26 19:09 | Inpatient (IN) | payer BC ==
[2019-08-26] MEDS ORDERED: ONDANSETRON 4 MG/2 ML VIAL IVP STA ×2 (19:55→22:45)
[2019-08-26] MEDS ORDERED: SODIUM CHLORIDE 0.9% 1,000 ML IV STA ×2 (19:55)
[2019-08-26] MEDS ORDERED: PANTOPRAZOLE 40 MG/10 ML VIAL IVP STA (19:55)
[2019-08-26] MEDS ORDERED: HYDROmorphone 1 MG/ML 1 ML SYRINGE IVP STA (19:55)
--- NOTE | 2019-08-26 19:59 | ED ---
General Adult HPI - General Chief complaint: Nausea/Vomiting/Diarrhea Stated complaint: Vomiting, poss infection Time Seen by Provider: 08/26/19 19:29 Source: patient, family, RN notes reviewed Mode of arrival: ambulatory Limitations: no limitations - History of Present Illness Initial comments: Patient is a pleasant 39-year-old female presenting to the emergency department with nausea and vomiting. Patient has vomited multiple times since around 5 AM. Patient did have borderline fever and did take Tylenol. Patient is vomiting despite Phenergan and Zofran at home. Patient does have some abdominal discomfort. Abdominal discomfort is chronic however low but worse than normal. Patient believes her may benefit small amount of pus coming out adjacent to her feeding tube. Patient has us for history of gastroparesis. He did have similar symptoms previously and was just discharged from the hospital over a week ago. - Related Data Home Medications Medication Instructions Recorded Confirmed Montelukast Chew [Singulair] 10 mg PO DAILY 02/02/18 08/08/19 Topiramate [Trokendi Xr] 50 mg PO HS 07/18/18 08/08/19 Thyroid,Pork [[place] Thyroid] 60 mg PO Q48H 10/06/18 08/08/19 Thyroid,Pork [[place] Thyroid] 90 mg PO Q48H 10/06/18 08/08/19 Prucalopride Succinate [Motegrity] 2 mg PO DAILY 01/14/19 08/08/19 oxyCODONE HCL [oxyCODONE HCL (IR)] 10 mg PO Q8H PRN 04/20/19 08/08/19 Linaclotide [Linzess] 290 mcg PO DAILY 05/24/19 08/08/19 Tegaserod Hydrogen Maleate 6 mg PO AC-BID 05/24/19 08/08/19 [Zelnorm] Enoxaparin [Lovenox] 80 mg SQ Q12H 06/08/19 08/08/19 Phenergen 12.5 mg IV Q8HR PRN 06/08/19 08/08/19 Ondansetron 4mg 4 mg IV Q8H PRN 06/23/19 08/08/19 Dicyclomine [Bentyl] 10 mg PO Q8H PRN 08/08/19 08/08/19 Previous Rx's Medication Instructions Recorded Scopolamine 1.5MG/72Hr Patch 1 patch TRANSDERM Q72H #10 patch 07/31/18 [TransDerm Scop] Ciprofloxacin HCl [Cipro] 500 mg PO Q12H #16 tab 08/14/19 Allergies Allergy/AdvReac Type Severity Reaction Status Date / Time metoclopramide [From Reglan] AdvReac Mild jittery Verified 08/26/19 19:27 prochlorperazine AdvReac Mild JITTERY Verified 08/26/19 19:27 [From Compazine] Review of Systems ROS Statement: Those systems with pertinent positive or pertinent negative responses have been documented in the HPI. ROS Other: All systems not noted in ROS Statement are negative. Constitutional: Reports: as per HPI Eyes: Denies: eye pain ENT: Denies: ear pain, throat pain Respiratory: Denies: cough Cardiovascular: Denies: chest pain Endocrine: Denies: fatigue Gastrointestinal: Reports: abdominal pain, nausea, vomiting Genitourinary: Denies: dysuria Musculoskeletal: Denies: back pain Skin: Denies: rash Neurological: Denies: weakness Past Medical History Past Medical History: Deep Vein Thrombosis (DVT), GERD/Reflux, Pulmonary Embolus (PE), Thyroid Disorder Additional Past Medical History / Comment(s): Other hx:Idiopathic gastroparesis, takes little in orally-has J tube for feedings-currently on hold and receiving TPN, chronic abdominal pain, R pulmonary embolism -2017, dvt R upper extremity 2019, pancreatitis once in 2018-thought stone somewhere, hypothyroid, chronic anemia, sinus problems, migraine. 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 J tube replaced-last replace in November or December 2018, piccs, mediport insertion Past Anesthesia/Blood Transfusion Reactions: No Reported Reaction Past Psychological History: Depression Smoking Status: Never smoker Past Alcohol Use History: None Reported Past Drug Use History: None Reported - Past Family History Father Family Medical History: Hypertension Additional Family Medical History / Comment(s): Father is 57 yrs old.. Mother Family Medical History: No Reported History Additional Family Medical History / Comment(s): Mother is 57yrs old. General Exam Limitations: no limitations General appearance: alert, in no apparent distress Head exam: Present: normocephalic Neck exam: Present: normal inspection Respiratory exam: Present: normal lung sounds bilaterally, respiratory distress Cardiovascular Exam: Present: regular rate, normal rhythm GI/Abdominal exam: Present: soft, tenderness (Mild diffuse tenderness), other (PEG tube site without any evidence of purulent discharge. No significant rash.). Absent: distended, guarding, rebound, rigid Extremities exam: Present: normal inspection Neurological exam: Present: alert Psychiatric exam: Present: normal affect, normal mood Skin exam: Present: normal color. Absent: rash Course Vital Signs 08/26/19 08/26/19 19:23 22:40 Temperature 98.6 F 99.1 F Pulse Rate 97 89 Respiratory 18 18 Rate Blood Pressure 120/89 137/70 O2 Sat by Pulse 100 100 Oximetry Medical Decision Making - Medical Decision Making Patient reevaluated and resting comfortably in bed. Patient still complains of nausea. Case was discussed with Dr. Adame who does recommend observing patient secondary to borderline temperature earlier. Patient updated on results and plan. - Lab Data Result diagrams: 08/26/19 21:18 08/26/19 21:03 Lab Results 08/26/19 08/26/19 08/26/19 Range/Units 20:20 21:03 21:18 WBC 7.8 (3.8-10.6) k/uL RBC 4.22 (3.80-5.40) m/uL Hgb 11.9 (11.4-16.0) gm/dL Hct 35.2 (34.0-46.0) % MCV 83.3 (80.0-100.0) fL MCH 28.2 (25.0-35.0) pg MCHC 33.8 (31.0-37.0) g/dL RDW 13.8 (11.5-15.5) % Plt Count 316 (150-450) k/uL Neutrophils % 49 % Lymphocytes % 40 % Monocytes % 4 % Eosinophils % 4 % Basophils % 1 % Neutrophils # 3.8 (1.3-7.7) k/uL Lymphocytes # 3.1 (1.0-4.8) k/uL Monocytes # 0.3 (0-1.0) k/uL Eosinophils # 0.3 (0-0.7) k/uL Basophils # 0.1 (0-0.2) k/uL PT (9.0-12.0) sec INR (<1.2) APTT (22.0-30.0) sec Sodium 139 (137-145) mmol/L Potassium 4.0 (3.5-5.1) mmol/L Chloride 111 H (98-107) mmol/L Carbon Dioxide 17 L (22-30) mmol/L Anion Gap 11 mmol/L BUN 9 (7-17) mg/dL Creatinine 0.85 (0.52-1.04) mg/dL Est GFR (CKD-EPI)AfAm >90 (>60 ml/min/1.73 sqM) Est GFR (CKD-EPI)NonAf 88 (>60 ml/min/1.73 sqM) Glucose 78 (74-99) mg/dL Calcium 8.7 (8.4-10.2) mg/dL Total Bilirubin 0.1 L (0.2-1.3) mg/dL AST 20 (14-36) U/L ALT 11 (4-34) U/L Alkaline Phosphatase 99 (38-126) U/L Total Protein 6.5 (6.3-8.2) g/dL Albumin 3.8 (3.5-5.0) g/dL Amylase 104 (30-110) U/L Lipase 56 (23-300) U/L Urine Color Yellow Urine Appearance Cloudy H (Clear) Urine pH 6.0 (5.0-8.0) Ur Specific [place] 1.020 (1.001-1.035) Urine Protein Negative (Negative) Urine Glucose (UA) Negative (Negative) Urine Ketones Trace H (Negative) Urine Blood Negative (Negative) Urine Nitrite Negative (Negative) Urine Bilirubin Negative (Negative) Urine Urobilinogen <2.0 (<2.0) mg/dL Ur Leukocyte Esterase Trace H (Negative) Urine RBC 1 (0-5) /hpf Urine WBC 3 (0-5) /hpf Ur Squamous Epith Cells 4 (0-4) /hpf Urine Bacteria Occasional H (None) /hpf Hyaline Casts 1 (0-2) /lpf Urine Mucus Few H (None) /hpf 08/26/19 Range/Units 21:18 WBC (3.8-10.6) k/uL RBC (3.80-5.40) m/uL Hgb (11.4-16.0) gm/dL Hct (34.0-46.0) % MCV (80.0-100.0) fL MCH (25.0-35.0) pg MCHC (31.0-37.0) g/dL RDW (11.5-15.5) % Plt Count (150-450) k/uL Neutrophils % % Lymphocytes % % Monocytes % % Eosinophils % % Basophils % % Neutrophils # (1.3-7.7) k/uL Lymphocytes # (1.0-4.8) k/uL Monocytes # (0-1.0) k/uL Eosinophils # (0-0.7) k/uL Basophils # (0-0.2) k/uL PT 10.0 (9.0-12.0) sec INR 1.0 (<1.2) APTT 22.6 (22.0-30.0) sec Sodium (137-145) mmol/L Potassium (3.5-5.1) mmol/L Chloride (98-107) mmol/L Carbon Dioxide (22-30) mmol/L Anion Gap mmol/L BUN (7-17) mg/dL Creatinine (0.52-1.04) mg/dL Est GFR (CKD-EPI)AfAm (>60 ml/min/1.73 sqM) Est GFR (CKD-EPI)NonAf (>60 ml/min/1.73 sqM) Glucose (74-99) mg/dL Calcium (8.4-10.2) mg/dL Total Bilirubin (0.2-1.3) mg/dL AST (14-36) U/L ALT (4-34) U/L Alkaline Phosphatase (38-126) U/L Total Protein (6.3-8.2) g/dL Albumin (3.5-5.0) g/dL Amylase (30-110) U/L Lipase (23-300) U/L Urine Color Urine Appearance (Clear) Urine pH (5.0-8.0) Ur Specific [place] (1.001-1.035) Urine Protein (Negative) Urine Glucose (UA) (Negative) Urine Ketones (Negative) Urine Blood (Negative) Urine Nitrite (Negative) Urine Bilirubin (Negative) Urine Urobilinogen (<2.0) mg/dL Ur Leukocyte Esterase (Negative) Urine RBC (0-5) /hpf Urine WBC (0-5) /hpf Ur Squamous Epith Cells (0-4) /hpf Urine Bacteria (None) /hpf Hyaline Casts (0-2) /lpf Urine Mucus (None) /hpf - Radiology Data Radiology results: image reviewed (Abdominal x-ray shows air-fluid levels without distention, correlate for ileus or enteritis.) Disposition Clinical Impression: Nausea & vomiting Disposition: ADMITTED IP TO THIS HOSP Is patient prescribed a controlled substance at d/c from ED?: No Referrals: Wong Adame MD [Primary Care Provider] - 1-2 days Decision Time: 22:47
[2019-08-26 20:39] LABS: Appearance,Urine Cloudy (Clear); Bacteria,Urine Occasional /hpf; Bilirubin,Urine Negative (Negative); Blood,Urine Negative (Negative); Color,Urine Yellow; Glucose,Urine (UA) Negative (Negative); Hyaline Casts,Urine 1 /lpf (0-2); Ketones,Urine Trace (Negative); Leukocyte Esterase,Urine Trace (Negative); Mucus,Urine Few /hpf; Nitrite,Urine Negative (Negative); Protein,Urine Negative (Negative); RBC,Urine 1 /hpf (0-5); Squamous Epithelial Cell,Urine 4 /hpf (0-4); Urobilinogen,Urine <2.0 mg/dL (<2.0); WBC,Urine 3 /hpf (0-5)
--- NOTE | 2019-08-26 20:40 | XR ---
KUB HISTORY: Abdominal pain Frontal KUB submitted on [address] 07/31/2019, KUB 01/21/2019 There is a feeding tube present in the left lower quadrant. Air-fluid levels are present without jhonatan l distention. Lung bases are clear. Surgical clips present right upper quadrant. Intrauterine contrac eptive device is noted within the pelvis. Bone mineralization is normal. No pathologic calcification. IMPRESSION: Correlate for ileus or enteritis. Follow-up as indicated. Postprocedural changes.
[2019-08-26 21:27] LABS: Basophils # (A) 0.1 k/uL (0-0.2); Basophils % (A) 1 %; Eosinophils # (A) 0.3 k/uL (0-0.7); Eosinophils % (A) 4 %; HCT 35.2 % (34.0-46.0); HGB 11.9 gm/dL (11.4-16.0); Lymphocytes # (A) 3.1 k/uL (1.0-4.8); Lymphocytes % (A) 40 %; MCH 28.2 pg (25.0-35.0); MCHC 33.8 g/dL (31.0-37.0); MCV 83.3 fL (80.0-100.0); Mean Platelet Volume 6.8; Monocytes # (A) 0.3 k/uL (0-1.0); Monocytes % (A) 4 %; Neutrophils # (A) 3.8 k/uL (1.3-7.7); Neutrophils % (A) 49 %; Platelet Count 316 k/uL (150-450); RBC 4.22 m/uL (3.80-5.40); RDW 13.8 % (11.5-15.5); WBC 7.8 k/uL (3.8-10.6)
[2019-08-26 21:42] LABS: Partial Thromboplastin Time 22.6 sec (22.0-30.0)
[2019-08-26 22:21] LABS: African American GFR (CKD) >90 (>60 ml/min/1.73 sqM); Albumin 3.8 g/dL (3.5-5.0); Anion Gap 11 mmol/L; Blood Urea Nitrogen 9 mg/dL (7-17); Calcium 8.7 mg/dL (8.4-10.2); Carbon Dioxide 17 mmol/L (22-30); Chloride 111 mmol/L (98-107); Glucose 78 mg/dL (74-99); Non-African American GFR(CKD) 88 (>60 ml/min/1.73 sqM); Sodium 139 mmol/L (137-145); Total Protein 6.5 g/dL (6.3-8.2)
[2019-08-26 22:22] LABS: ALT 11 U/L (4-34); AST 20 U/L (14-36); Alkaline Phosphatase 99 U/L (38-126); Amylase 104 U/L (30-110); Total Bilirubin 0.1 mg/dL (0.2-1.3)
[2019-08-26] MEDS ORDERED: NALOXONE 0.4 MG/ML 1 ML VIAL IV PRN (22:47)
[2019-08-26] MEDS: HYDROmorphone 1 MG/ML 1 ML SYRINGE IVP PRN (23:25)
[2019-08-27] MEDS: HYDROmorphone 1 MG/ML 1 ML SYRINGE IVP PRN ×7 (02:41→23:43)
[2019-08-27] MEDS ORDERED: ONDANSETRON 4 MG/2 ML VIAL IVP PRN (06:53)
[2019-08-27] MEDS ORDERED: PROMETHAZINE 12.5 MG IV PRN (06:53)
[2019-08-27] MEDS ORDERED: DICYCLOMINE 10 MG CAP PO PRN (06:53)
[2019-08-27 07:02] LABS: Basophils # (A) 0.1 k/uL (0-0.2); Basophils % (A) 1 %; Eosinophils # (A) 0.3 k/uL (0-0.7); Eosinophils % (A) 4 %; HCT 34.5 % (34.0-46.0); HGB 11.2 gm/dL (11.4-16.0); Lymphocytes # (A) 2.9 k/uL (1.0-4.8); Lymphocytes % (A) 44 %; MCH 27.1 pg (25.0-35.0); MCHC 32.3 g/dL (31.0-37.0); MCV 83.9 fL (80.0-100.0); Monocytes # (A) 0.4 k/uL (0-1.0); Monocytes % (A) 6 %; Neutrophils # (A) 2.9 k/uL (1.3-7.7); Neutrophils % (A) 43 %; Platelet Count 313 k/uL (150-450); RBC 4.11 m/uL (3.80-5.40); RDW 13.8 % (11.5-15.5); WBC 6.6 k/uL (3.8-10.6)
[2019-08-27 07:34] LABS: ALT 11 U/L (4-34); AST 16 U/L (14-36); African American GFR (CKD) >90 (>60 ml/min/1.73 sqM); Albumin 2.9 g/dL (3.5-5.0); Alkaline Phosphatase 70 U/L (38-126); Anion Gap 5 mmol/L; Blood Urea Nitrogen 7 mg/dL (7-17); Calcium 8.1 mg/dL (8.4-10.2); Carbon Dioxide 19 mmol/L (22-30); Chloride 113 mmol/L (98-107); Glucose 82 mg/dL (74-99); Non-African American GFR(CKD) >90 (>60 ml/min/1.73 sqM); Potassium 3.9 mmol/L (3.5-5.1); Sodium 137 mmol/L (137-145); Total Bilirubin 0.2 mg/dL (0.2-1.3); Total Protein 5.4 g/dL (6.3-8.2)
[2019-08-27] MEDS: ONDANSETRON 4 MG/2 ML VIAL IVP PRN ×2 (07:39→17:08)
[2019-08-27] MEDS ORDERED: diphenhydrAMINE 50 MG CAP PO PRN (08:16)
[2019-08-27] MEDS ORDERED: LANSOPRAZOLE 30 MG PO SCH (09:00)
[2019-08-27] MEDS ORDERED: MVI, ADULT NO.4 WITH VIT K 10 ML, TRACE (CONC-1ML/DOSE) 1 ML in AMINO ACID 5%-D15W+LYTE... IV SCH ×3 (09:30)
[2019-08-27 10:00] LABS: Magnesium 1.9 mg/dL (1.6-2.3); Phosphorus 3.6 mg/dL (2.5-4.5)
[2019-08-27] MEDS: [UNRECOGNIZED DRUG - OTHER] PO SCH ×2 (10:01→17:07)
[2019-08-27] MEDS: ENOXAPARIN 80 MG/0.8 ML SYRINGE SQ SCH ×2 (10:56→20:28)
[2019-08-27] MEDS: THYROID, PORK 30 MG TAB PO SCH (10:56)
[2019-08-27] MEDS: MONTELUKAST 5 MG CHEWABLE PO SCH (10:56)
[2019-08-27 11:02] LABS: Glucose,Whole Blood 81 mg/dL (75-99)
[2019-08-27] MEDS: FAT EMULSION 20% 250 ML in EMPTY BAG 1 BAG IV SCH (11:20)
[2019-08-27] MEDS: PANTOPRAZOLE 40 MG/10 ML VIAL IV SCH (11:32)
[2019-08-27] MEDS: INSULIN ASPART (NovoLOG) 100 UNIT/ML VIAL SQ SCH ×2 (12:05→17:25)
[2019-08-27 17:03] LABS: Glucose,Whole Blood 89 mg/dL (75-99)
--- NOTE | 2019-08-27 17:21 | HP ---
HISTORY AND PHYSICAL CHIEF COMPLAINT: Fever, chills, abdominal pain, and cellulitis of the abdominal wall. HISTORY OF PRESENT ILLNESS: This is another admission for this 39-year-old white female with gastroparesis. She has been having problems with cellulitis of the abdominal wall around the jejunostomy tube and she started to have difficulty with it a day or twp ago and then she developed fever. She came into the emergency room. She has a history of gastroparesis and started vomiting more yesterday as well. REVIEW OF SYSTEMS: Otherwise normal. She has had no neurologic problems, chest pain, shortness of breath, diarrhea, melena, hematochezia, hematemesis, jaundice, dysuria, frequency, urgency, etc. Past medical history, family history and personal and social histories are all otherwise unremarkable and unchanged from her recent admitting and discharge summaries. PHYSICAL EXAMINATION: Blood pressure is 129/74 with a pulse of 68, respirations of 15 and she is afebrile. In general, she appeared to be slightly uncomfortable, but no acute distress. Skin color is normal. Skin was dry. Head, ears, eyes, nose, mouth, and throat were normal. Neck veins not distended. Chest is clear. Cardiac exam is normal, in sinus rhythm. The abdomen is slightly protuberant, soft and there was maceration around the jejunostomy tube with cellulitis. Bowel sounds present. Extremities are normal. Neurologically she is intact. She is admitted to the hospital diagnoses. 1. Cellulitis of the abdominal wall. 2. Maceration around jejunostomy site. 3. Gastroparesis. 4. Intractable vomiting. 5. Intractable pain. PLAN: 1. Bed rest. 2. IV fluids. 3. Consult with Infectious Disease. 4. Consult with Surgery regarding possible revision of the jejunostomy tube. MMODL / IJN: [id number] /
--- NOTE | 2019-08-27 17:27 | PN ---
PROGRESS NOTE DATE OF SERVICE: 08/27/2019 CHIEF COMPLAINT: Cellulitis of the abdominal wall. HISTORY OF PRESENT ILLNESS: This lady is not running a fever, but she is still having significant abdominal pain and she is still nauseated. PHYSICAL EXAMINATION: Chest is clear. Cardiac exam is normal. The area of cellulitis of around the abdominal wall is slightly better. IMPRESSION: 1. Cellulitis of the abdominal wall. 2. Maceration of the skin in of the jejunostomy site. 3. Gastroparesis. 4. Intractable pain. PLAN: 1. Continue with current program. 2. Consult surgery regarding possible revision of the jejunostomy site. MMODL / IJN: [id number] /
[2019-08-27] MEDS: TOPIRAMATE 25 MG TAB PO SCH (20:28)
[2019-08-27] MEDS: diphenhydrAMINE 50 MG/ML 1 ML VIAL IVP PRN (20:30)
[2019-08-27 23:25] LABS: Glucose,Whole Blood 84 mg/dL (75-99)
--- NOTE | 2019-08-28 00:05 | P.CONS ---
History of Present Illness - Reason for Consult Consult date: 08/27/19 enteritis /j tube site cellulitis Requesting physician: Wong Adame - Chief Complaint vomiting/diarrhea x 1 day - History of Present Illness Patient is a 39-year female with a past medical history significant for diabetic gastroparesis in this patient who did have a J-tube for feeding patient did have a previous episode of G-tube site cellulitis with recent culture positive for Pseudomonas with the patient has completed her antibiotic therapy patient is now presenting to the ER at [facility] last night with chief complaints of nausea and vomiting that started the day of presentation the hospital patient says she has vomited almost 6-7 times. Also complaining of some discomfort in the epigastric area more of a dull aching to burning pain about 5-6 over 10 and no radiation patient had denies having any also complaining of loose stools multiple episodes but no other mucus in the stools, the patient the patient denies high-grade fever however did have low- grade fever at home, as well as the G-tube site patient denies having any pain no swelling no redness or any drainage from that site, on presentation the hospital the patient has been afebrile and remains to be afebrile patient did have a normal white count normal liver enzymes blood cultures obtained which are currently pending patient did have a KUB x-ray which was correlate for ileus or enteritis patient has been admitted to hospital infectious disease has been consulted for further management of antibiotic therapy. Review of Systems Positive point has been mentioned in HPI rest of the systems are negative Past Medical History Past Medical History: Deep Vein Thrombosis (DVT), GERD/Reflux, Pulmonary Embolus (PE), Thyroid Disorder Additional Past Medical History / Comment(s): Other hx:Idiopathic gastroparesis, takes little in orally-has J tube for feedings-currently on hold and receiving TPN, chronic abdominal pain, R pulmonary embolism 5-2017, dvt R upper extremity 2018, pancreatitis once in 2018-thought stone somewhere, hypothyroid, chronic anemia, sinus problems, migraine. 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 J tube replaced-last replace in November or December 2018, piccs, mediport insertion Past Anesthesia/Blood Transfusion Reactions: No Reported Reaction Smoking Status: Never smoker - Past Family History Father Family Medical History: Hypertension Additional Family Medical History / Comment(s): Father is 57 yrs old.. Mother Family Medical History: No Reported History Additional Family Medical History / Comment(s): Mother is 57yrs old. Medications and Allergies Home Medications Medication Instructions Recorded Confirmed Type Montelukast Chew [Singulair] 10 mg PO DAILY 02/02/18 08/27/19 History Topiramate [Trokendi Xr] 50 mg PO HS 07/18/18 08/27/19 History Scopolamine 1.5MG/72Hr Patch 1 patch TRANSDERM Q72H #10 patch 07/31/18 08/27/19 Rx [TransDerm Scop] Thyroid,Pork [[place] Thyroid] 60 mg PO Q48H 10/06/18 08/27/19 History Thyroid,Pork [[place] Thyroid] 90 mg PO Q48H 10/06/18 08/27/19 History Prucalopride Succinate [Motegrity] 2 mg PO DAILY 01/14/19 08/27/19 History oxyCODONE HCL [oxyCODONE HCL (IR)] 10 mg PO Q8H PRN 04/20/19 08/27/19 History Linaclotide [Linzess] 290 mcg PO DAILY 05/24/19 08/27/19 History Tegaserod Hydrogen Maleate 6 mg PO AC-BID 05/24/19 08/27/19 History [Zelnorm] Enoxaparin [Lovenox] 80 mg SQ Q12H 06/08/19 08/27/19 History Phenergen 12.5 mg IV Q8HR PRN 06/08/19 08/27/19 History Ondansetron 4mg 4 mg IV Q8H PRN 06/23/19 08/27/19 History Dicyclomine [Bentyl] 10 mg PO Q8H PRN 08/08/19 08/27/19 History Lansoprazole 30 mg PO BID 08/27/19 08/27/19 History Allergies Allergy/AdvReac Type Severity Reaction Status Date / Time metoclopramide [From Reglan] AdvReac Mild jittery Verified 08/27/19 10:29 prochlorperazine AdvReac Mild JITTERY Verified 08/27/19 10:29 [From Compazine] Physical Exam Vitals: Vital Signs Temp Pulse Resp BP Pulse Ox 08/27/19 19:35 98.4 F 69 18 119/75 98 08/27/19 16:20 99.1 F 71 18 114/71 99 08/27/19 12:20 98.4 F 66 16 101/63 98 08/27/19 08:30 98.4 F 70 16 109/67 98 08/27/19 00:14 97.6 F 86 16 120/83 99 Intake and Output 08/27/19 08/27/19 08/28/19 14:59 22:59 06:59 Output Total 1300 Balance -1300 Output: Urine 1300 Other: # Voids 1 Weight 81.4 kg GENERAL DESCRIPTION: Middle-aged female lying in bed, no distress. No tachypnea or accessory muscle of respiration use. HEENT: Shows Pallor , no scleral icterus. Oral mucous membrane is dry. NECK: Trachea central, no thyromegaly. LUNGS: Unlabored breathing. Clear to auscultation anteriorly. No wheeze or crackle. HEART: S1, S2, regular rate and rhythm. ABDOMEN: Soft, no tenderness , J-tube site currently with no erythema no drainage eXTREMITIES: No edema of feet. SKIN: No rash, no masses palpable. NEUROLOGICAL: The patient is awake, alert, oriented x3, mood and affect normal. Results CBC & Chem 7: 08/27/19 06:50 08/27/19 06:50 Labs: Abnormal Lab Results - Last 24 Hours (Table) 08/27/19 08/27/19 08/27/19 Range/Units 06:50 06:50 06:50 Hgb 11.2 L (11.4-16.0) gm/dL Chloride 113 H (98-107) mmol/L Carbon Dioxide 19 L (22-30) mmol/L Calcium 8.1 L (8.4-10.2) mg/dL Total Protein 5.4 L (6.3-8.2) g/dL Albumin 2.9 L (3.5-5.0) g/dL Triglycerides 219 H (<150) mg/dL Assessment and Plan Assessment: 1-patient presented to hospital with acute nausea vomiting and diarrhea more likely acute gastroenteritis possible viral less likely bacterial in this patient currently with no fever or elevated white count 2-patient J-tube site currently with no evidence of any cellulitis (1) Acute gastroenteritis Current Visit: Yes Status: Acute Code(s): K52.9 - NONINFECTIVE GASTROENTERITIS AND COLITIS, UNSPECIFIED SNOMED Code(s): 32569279 Plan: 1-we will request with stool for culture as well as stool for C. difficile 2-symptomatic treatment of her nausea vomiting and diarrhea 3-hold on any systemic antibiotic therapy 4-IV fluids We will follow on clinical condition and cultures to further adjust medication if needed Thank you for this consultation we will follow the patient along with you Time with Patient: Greater than 30
[2019-08-28] MEDS: INSULIN ASPART (NovoLOG) 100 UNIT/ML VIAL SQ SCH ×5 (01:23→21:38)
[2019-08-28] MEDS: HYDROmorphone 1 MG/ML 1 ML SYRINGE IVP PRN ×7 (03:51→22:53)
[2019-08-28] MEDS: diphenhydrAMINE 50 MG/ML 1 ML VIAL IVP PRN ×4 (03:51→22:53)
[2019-08-28 04:51] LABS: Glucose,Whole Blood 87 mg/dL (75-99)
[2019-08-28] MEDS: THYROID, PORK 30 MG TAB PO SCH (06:46)
[2019-08-28] MEDS: [UNRECOGNIZED DRUG - OTHER] PO SCH ×2 (06:46→17:03)
[2019-08-28 08:16] LABS: ALT 19 U/L (4-34); AST 32 U/L (14-36); African American GFR (CKD) >90 (>60 ml/min/1.73 sqM); Albumin 3.3 g/dL (3.5-5.0); Alkaline Phosphatase 88 U/L (38-126); Anion Gap 6 mmol/L; Blood Urea Nitrogen 6 mg/dL (7-17); Calcium 8.7 mg/dL (8.4-10.2); Carbon Dioxide 22 mmol/L (22-30); Chloride 110 mmol/L (98-107); Glucose 87 mg/dL (74-99); Non-African American GFR(CKD) 81 (>60 ml/min/1.73 sqM); Phosphorus 4.5 mg/dL (2.5-4.5); Potassium 3.7 mmol/L (3.5-5.1); Sodium 138 mmol/L (137-145); Total Bilirubin 0.3 mg/dL (0.2-1.3); Total Protein 5.9 g/dL (6.3-8.2)
[2019-08-28] MEDS ORDERED: POTASSIUM BICARBONATE/CIT AC 20 MEQ TABLET.EFF PO ONE (09:00)
[2019-08-28] MEDS: ENOXAPARIN 80 MG/0.8 ML SYRINGE SQ SCH ×2 (09:50→19:49)
[2019-08-28] MEDS: FAT EMULSION 20% 250 ML in EMPTY BAG 1 BAG IV SCH (09:51)
[2019-08-28] MEDS: MONTELUKAST 5 MG CHEWABLE PO SCH (09:52)
[2019-08-28] MEDS: PANTOPRAZOLE 40 MG/10 ML VIAL IV SCH (09:53)
[2019-08-28] MEDS: TOPIRAMATE 25 MG TAB PO SCH ×2 (09:55→21:40)
[2019-08-28] MEDS: 1: MVI, ADULT NO.4 WITH VIT K 10 ML, TRACE (CONC-1ML/DOSE) 1 ML in AMINO ACID 5%-D15W+LY IV SCH ×6 (09:56→23:37)
[2019-08-28 11:14] LABS: Glucose,Whole Blood 102 mg/dL (75-99)
--- NOTE | 2019-08-28 13:55 | P.GSCN ---
<Janelle López A - Last Filed: 08/28/19 13:55> History of Present Illness Consult date: 08/28/19 Reason for Consult: Evaluate jejunostomy site Requesting physician: Wong Adame History of present illness: CHIEF COMPLAINT: Evaluate jejunostomy site HISTORY OF PRESENT ILLNESS: 39-year-old female with a history of gastroparesis who has a jejunostomy tube. Patient's surgeon is out of [facility]. She has also been evaluated at [facility]. General surgery was consulted to evaluate jejunostomy site. Patient examined at the bedside. She reports she has been on antibiotics for the past few months on and off due to an infection around her feeding tube site. She states it currently looks good but everytime she comes off antibiotics, it gets infected again. She reports she has been on TPN since February because her surgeon at [place] told her she had a fistula at her J tube because everytime she uses it for tube feedings, tube feeding leaks out of a small opening near the j tube. She stated the plan was to remain on TPN and possibly revise her J tube, but then the coronavirus pandemic happened and she has not been able to be evaluated by her surgeon since. She states her was contacting their office today to try to get an appointment. PAST MEDICAL HISTORY: See list. PAST SURGICAL HISTORY: See list. MEDICATIONS: See list. ALLERGIES: See list. SOCIAL HISTORY: No illicit drug use. REVIEW OF SYSTEMS: CONSTITUTIONAL: Denies fever or chills. HEENT: Denies blurred vision, vision changes, or eye pain. Denies hemoptysis ENDOCRINE: Denies heat or cold intolerance. CARDIOVASCULAR: Denies chest pain or pressure. RESPIRATORY: No shortness of breath. GASTROINTESTINAL: History of gastroparesis. Has history of J-tube placement. NEURO: Denies history of seizures. PSYCH: History of depression. Currently no suicidal ideation HEMATOLOGIC: Denies bleeding disorders. LYMPHATIC: The patient denies any lumps and bumps around the neck. GENITOURINARY: Denies any blood in urine or increased urinary frequency. MUSCULOSKELETAL: Denies myalgias. Denies joint swelling. Denies decreased range of motion beyond patients baseline. SKIN: Denies pruitis. Denies rash. Reports recent infections around J tube site. PHYSICAL EXAM: VITAL SIGNS: Reviewed GENERAL: Well-developed in no acute distress. HEENT: No sclera icterus. Extraocular movements grossly intact. Moist buccal mucosa. Head is atraumatic, normocephalic. Hears conversational speech. No nasal drainage. NECK: Supple without lymphadenopathy. CHEST: Non-labored respirations and equal bilateral excursions. CARDIOVASCULAR: Regular rate with regular rhythm. Palpable 2+ radial pulses. ABDOMEN: Soft. Nondistended. Nontender. J tube noted with very mild surrounding erythema. MUSCULOSKELETAL: No clubbing or cyanosis. NEUROLOGIC: No focal or lateralizing signs. Cranial nerves II through XII grossly intact. PSYCH: Appropriate affect. Alert and oriented to person, place and time. SKIN: Well perfused. Good skin turgor. LABORATORY DATA: WBC 6.6. Hemoglobin 11.2. Platelet count 313. Sodium 138. Potassium 3.7. BUN 6. Creatinine 0.91. IMAGING: KUB x-ray: Correlate for ileus or enteritis. ASSESSMENT: 1. Acute on chronic nausea and vomiting 2. History of idiopathic gastroparesis 3. Frequent cellulitis of J-tube per patient 4. 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 Patients was calling surgeons office today to try to make an appointment for the patient. No plans for surgical intervention. Recommend patient to continue to follow with her surgeon at [facility] Nurse practitioner note has been reviewed by physician. Signing provider agrees with the documented findings, assessment, and plan of care. Past Medical History Past Medical History: Deep Vein Thrombosis (DVT), GERD/Reflux, Pulmonary Embolus (PE), Thyroid Disorder Additional Past Medical History / Comment(s): Other hx:Idiopathic gastroparesis, takes little in orally-has J tube for feedings-currently on hold and receiving TPN, chronic abdominal pain, R pulmonary embolism 5-2017, dvt R upper extremity 2019, pancreatitis once in 2018-thought stone somewhere, hypothyroid, chronic anemia, sinus problems, migraine. 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 J tube replaced-last replace in November or December 2018, piccs, mediport insertion Past Anesthesia/Blood Transfusion Reactions: No Reported Reaction Smoking Status: Never smoker - Past Family History Father Family Medical History: Hypertension Additional Family Medical History / Comment(s): Father is 57 yrs old.. Mother Family Medical History: No Reported History Additional Family Medical History / Comment(s): Mother is 57yrs old. Medications and Allergies Home Medications Medication Instructions Recorded Confirmed Type Montelukast Chew [Singulair] 10 mg PO DAILY 02/02/18 08/27/19 History Topiramate [Trokendi Xr] 50 mg PO HS 07/18/18 08/27/19 History Scopolamine 1.5MG/72Hr Patch 1 patch TRANSDERM Q72H #10 patch 07/31/18 08/27/19 Rx [TransDerm Scop] Thyroid,Pork [[place] Thyroid] 60 mg PO Q48H 10/06/18 08/27/19 History Thyroid,Pork [[place] Thyroid] 90 mg PO Q48H 10/06/18 08/27/19 History Prucalopride Succinate [Motegrity] 2 mg PO DAILY 01/14/19 08/27/19 History oxyCODONE HCL [oxyCODONE HCL (IR)] 10 mg PO Q8H PRN 04/20/19 08/27/19 History Linaclotide [Linzess] 290 mcg PO DAILY 05/24/19 08/27/19 History Tegaserod Hydrogen Maleate 6 mg PO AC-BID 05/24/19 08/27/19 History [Zelnorm] Enoxaparin [Lovenox] 80 mg SQ Q12H 06/08/19 08/27/19 History Phenergen 12.5 mg IV Q8HR PRN 06/08/19 08/27/19 History Ondansetron 4mg 4 mg IV Q8H PRN 06/23/19 08/27/19 History Dicyclomine [Bentyl] 10 mg PO Q8H PRN 08/08/19 08/27/19 History Lansoprazole 30 mg PO BID 08/27/19 08/27/19 History Allergies Allergy/AdvReac Type Severity Reaction Status Date / Time metoclopramide [From Reglan] AdvReac Mild jittery Verified 08/27/19 10:29 prochlorperazine AdvReac Mild JITTERY Verified 08/27/19 10:29 [From Compazine] Surgical - Exam Vital Signs Temp Pulse Resp BP Pulse Ox 98.6 F 97 18 120/89 100 08/26/19 19:23 08/26/19 19:23 08/26/19 19:23 08/26/19 19:23 08/26/19 19:23 Results - Labs 08/27/19 06:50 08/28/19 07:35 Abnormal Lab Results - Last 24 Hours (Table) 08/28/19 08/28/19 Range/Units 07:35 11:11 Chloride 110 H (98-107) mmol/L BUN 6 L (7-17) mg/dL POC Glucose (mg/dL) 102 H (75-99) mg/dL Total Protein 5.9 L (6.3-8.2) g/dL Albumin 3.3 L (3.5-5.0) g/dL Microbiology - Last 24 Hours (Table) 08/26/19 21:03 Blood Culture - Preliminary Blood No Growth after 24 hours Diabetes panel 08/28/19 Range/Units 07:35 Sodium 138 (137-145) mmol/L Potassium 3.7 (3.5-5.1) mmol/L Chloride 110 H (98-107) mmol/L Carbon Dioxide 22 (22-30) mmol/L BUN 6 L (7-17) mg/dL Creatinine 0.91 (0.52-1.04) mg/dL Glucose 87 (74-99) mg/dL Calcium 8.7 (8.4-10.2) mg/dL AST 32 (14-36) U/L ALT 19 (4-34) U/L Alkaline Phosphatase 88 (38-126) U/L Total Protein 5.9 L (6.3-8.2) g/dL Albumin 3.3 L (3.5-5.0) g/dL Calcium panel 08/28/19 Range/Units 07:35 Calcium 8.7 (8.4-10.2) mg/dL Phosphorus 4.5 (2.5-4.5) mg/dL Albumin 3.3 L (3.5-5.0) g/dL Pituitary panel 08/28/19 Range/Units 07:35 Sodium 138 (137-145) mmol/L Potassium 3.7 (3.5-5.1) mmol/L Chloride 110 H (98-107) mmol/L Carbon Dioxide 22 (22-30) mmol/L BUN 6 L (7-17) mg/dL Creatinine 0.91 (0.52-1.04) mg/dL Glucose 87 (74-99) mg/dL Calcium 8.7 (8.4-10.2) mg/dL Adrenal panel 08/28/19 Range/Units 07:35 Sodium 138 (137-145) mmol/L Potassium 3.7 (3.5-5.1) mmol/L Chloride 110 H (98-107) mmol/L Carbon Dioxide 22 (22-30) mmol/L BUN 6 L (7-17) mg/dL Creatinine 0.91 (0.52-1.04) mg/dL Glucose 87 (74-99) mg/dL Calcium 8.7 (8.4-10.2) mg/dL Total Bilirubin 0.3 (0.2-1.3) mg/dL AST 32 (14-36) U/L ALT 19 (4-34) U/L Alkaline Phosphatase 88 (38-126) U/L Total Protein 5.9 L (6.3-8.2) g/dL Albumin 3.3 L (3.5-5.0) g/dL <Rosemarie Marie - Last Filed: 08/28/19 18:41> History of Present Illness History of present illness: Patient seen and evaluated. Agree with above. HISTORY OF PRESENT ILLNESS: The patient is a 39 year old female multiple medical problems and multiple hospitalizations with history of gastroparesis including gastric bypass managed between [facility] and [facility]. She has history of jejunal feeding tube placed by her surgeon at [facility]. She's had multiple hospitalizations at least 3-4 in the last 5 months related to abdominal wall cellulitis including jejunostomy tube site infection. Over several months ago, patient had a DVT in the right arm from her PICC line as she was receiving TPN. Her infection along her abdominal wall has improved. She is also being managed for antibiotics by infectious disease provider. PAST MEDICAL HISTORY: See list. PAST SURGICAL HISTORY: See list. MEDICATIONS: See list. ALLERGIES: See list. SOCIAL HISTORY: See list. FAMILY HISTORY: See list. REVIEW OF ORGAN SYSTEMS: CONSTITUTIONAL: No fevers or chills. EYES: Denies any trouble with vision. No glasses. HEENT: No difficulties with hearing. No nosebleeds. No difficulty swallowing. RESPIRATORY: Denies pneumonia. Has asthma CARDIOVASCULAR: Denies any chest pain, palpitations, or recent heart attacks. GASTROINTESTINAL: Denies fatty food intolerance. Has gastroesophageal reflux disease. History of gastroparesis status post gastric bypass. Nutrition via jejunostomy tube. Has change in bowel habits. History of SMA syndrome GENITOURINARY: Denies any blood in urine or increased urinary frequency. NEUROLOGICAL: Has numbness or tingling along the distal extremities. History of headaches and seizure disorder. His chronic pain disorder MUSCULOSKELETAL: Has back pain, stiffness or joint arthritis. SKIN: No current skin cancer. No rash. PSYCHIATRIC: Denies current depression or suicidal thoughts. ENDOCRINE: Has thyroid disorders. Denies any blood sugar glucose intolerance. HEME/LYMPHATIC: Denies any lumps and bumps around the neck. History of deep venous thrombosis secondary to PICC line. Prior history of multiple PEs and DVTs including of contralateral arm ALLERGY/IMMUNOLOGY: No immunoglobulin therapy. No immune deficiencies. BREAST: Denies current breast lumps, pain or nipple discharge. PHYSICAL EXAM: VITALS: Reviewed CONSTITUTIONAL: Well developed and in no acute distress. EYES: Conjuctivae without sclera icterus. Pupils are equally round and reactive to light. Extraocular movements grossly intact. HEAD, EARS, NOSE, THROAT: Moist buccal mucosa. Head is atraumatic, normocephalic. Hears conversational speech. No nasal drainage. NECK: Supple. No JV distention. No thyroidomegaly. RESPIRATORY: Non-labored respirations and equal bilateral excursions. No gross wheezes. CARDIOVASCULAR: Regular rate and rhythm. Extremities without moderate edema. Palpable 2+ radial pulses. ABDOMEN: Soft. No peritonitis. Jejunostomy feeding tube along the left upper quadrant with minimal erythema less than 2 cm border. No active purulence. MUSCULOSKELETAL: Nail and fingers with good capillary refill. SKIN: Warm and well perfused with good skin turgor. NEUROLOGIC: Cranial nerves II through XII grossly intact. Sensation upper and extremities intact. No focal or lateralizing signs. PSYCH: Appropriate affect. Alert and oriented to person, place and time. Displays appropriate insight. CLINCAL LABS: Reviewed. WBC normal at 6.6 STUDIES: Abdominal x-ray reviewed without free air. Foreign body left upper quadrant consistent with jejunostomy feeding tube.This my independent interpretation ASSESSMENT: 1. Feeding tube site infection at jejunum PLAN: 1. She has a complicated abdominal history of gastroparesis converted to gastric bypass with jejunostomy feeding tube and fistula. She also has established surgical care at [facility] including [place], [place] 2. Clinically, patient reports improvement in her symptoms with IV antibiotics. She reports having established plan of care with her [facility] surgeon which would involve removal of her jejunostomy tube and correction of her fistula. 3. As she is clinically stable, agreeable for discharge when medically stable. 4. Patient will follow up with her surgical provider at [place] regarding her anticipated surgical intervention Thank you for this kind consultation Surgical - Exam Vital Signs Temp Pulse Resp BP Pulse Ox 98.6 F 97 18 120/89 100 08/26/19 19:23 08/26/19 19:23 08/26/19 19:23 08/26/19 19:23 08/26/19 19:23 Results - Labs 08/27/19 06:50 08/28/19 07:35 Abnormal Lab Results - Last 24 Hours (Table) 08/28/19 08/28/19 08/28/19 Range/Units 07:35 11:11 17:01 Chloride 110 H (98-107) mmol/L BUN 6 L (7-17) mg/dL POC Glucose (mg/dL) 102 H 108 H (75-99) mg/dL Total Protein 5.9 L (6.3-8.2) g/dL Albumin 3.3 L (3.5-5.0) g/dL Microbiology - Last 24 Hours (Table) 08/26/19 21:03 Blood Culture - Preliminary Blood No Growth after 24 hours Diabetes panel 08/28/19 Range/Units 07:35 Sodium 138 (137-145) mmol/L Potassium 3.7 (3.5-5.1) mmol/L Chloride 110 H (98-107) mmol/L Carbon Dioxide 22 (22-30) mmol/L BUN 6 L (7-17) mg/dL Creatinine 0.91 (0.52-1.04) mg/dL Glucose 87 (74-99) mg/dL Calcium 8.7 (8.4-10.2) mg/dL AST 32 (14-36) U/L ALT 19 (4-34) U/L Alkaline Phosphatase 88 (38-126) U/L Total Protein 5.9 L (6.3-8.2) g/dL Albumin 3.3 L (3.5-5.0) g/dL Calcium panel 08/28/19 Range/Units 07:35 Calcium 8.7 (8.4-10.2) mg/dL Phosphorus 4.5 (2.5-4.5) mg/dL Albumin 3.3 L (3.5-5.0) g/dL Pituitary panel 08/28/19 Range/Units 07:35 Sodium 138 (137-145) mmol/L Potassium 3.7 (3.5-5.1) mmol/L Chloride 110 H (98-107) mmol/L Carbon Dioxide 22 (22-30) mmol/L BUN 6 L (7-17) mg/dL Creatinine 0.91 (0.52-1.04) mg/dL Glucose 87 (74-99) mg/dL Calcium 8.7 (8.4-10.2) mg/dL Adrenal panel 08/28/19 Range/Units 07:35 Sodium 138 (137-145) mmol/L Potassium 3.7 (3.5-5.1) mmol/L Chloride 110 H (98-107) mmol/L Carbon Dioxide 22 (22-30) mmol/L BUN 6 L (7-17) mg/dL Creatinine 0.91 (0.52-1.04) mg/dL Glucose 87 (74-99) mg/dL Calcium 8.7 (8.4-10.2) mg/dL Total Bilirubin 0.3 (0.2-1.3) mg/dL AST 32 (14-36) U/L ALT 19 (4-34) U/L Alkaline Phosphatase 88 (38-126) U/L Total Protein 5.9 L (6.3-8.2) g/dL Albumin 3.3 L (3.5-5.0) g/dL Assessment and Plan (1) Leak of percutaneous jejunostomy tube Current Visit: Yes Status: Acute Code(s): K94.13 - ENTEROSTOMY MALFUNCTION SNOMED Code(s): 653268091 (2) Abdominal wall cellulitis Current Visit: No Status: Acute Code(s): L03.311 - CELLULITIS OF ABDOMINAL WALL SNOMED Code(s): 80345443 (3) Gastroparesis Current Visit: No Status: Chronic Code(s): K31.84 - GASTROPARESIS SNOMED Code(s): 427337071 (4) Jejunostomy tube present Current Visit: No Status: Chronic Code(s): Z93.4 - OTHER ARTIFICIAL OPENINGS OF GASTROINTESTINAL TRACT STATUS SNOMED Code(s): 622107032
--- NOTE | 2019-08-28 16:04 | CDI ---
Documentation Clarification Form Date: 08/28/2019 03:40:39 PM From: Christen Sharma RN CCDS Admit Date: 08/28/2019 09:12:00 AM Patient Name: Maribel Johansen Visit Number: [id number] Discharge Date: ATTENTION: The Clinical Documentation Specialists (CDI) and [facility] Coding Staff appreciate your assistance in clarifying documentation. Please respond to the clarification below the line at the bottom and electronically sign. The CDI & [facility] Coding staff will review the response and follow-up if needed. Please note: Queries are made part of the Legal Health Record. If you have any questions, please contact the author of this message via ITS. Dr. Wong Adame Conflicting documentation has been found in the medical record: Cellulitis of the abdominal wall is documented in the H & P 08/26 and Progress note 08/26 Patient J-Tube site currently with no evidence of any cellulitis Documented in ID Consult 08/26 History/Risk Factors: 39-year-old female presents to the ED with abdominal pain nausea and vomiting. Medical history DM, Diabetic gastroparesis, J tube for TPN, and chronic anemia. Clinical Indicators: Per ID consult 08/26 Hold on any systemic antibiotic therapy 08/25 VSS 120/89 97 98.6 18 100% ra 08/25 LABS Wbc 7.8, Treatment: 08/25 0.9ns 1L bolus, 0.9ns 130cchr d/c 08/26 In your opinion, what is the most clinically appropriate diagnosis for this patient? Cellulitis of the Abdominal wall ruled out Cellulitis of the Abdominal wall POA Other explanation of clinical findings Unable to determine (no explanation for clinical findings) (Last Revision: January 2017) MTDD
--- NOTE | 2019-08-28 16:05 | PN ---
PROGRESS NOTE DATE OF SERVICE: 08/28/2019 REASON FOR FOLLOWUP: 1. Acute gastroenteritis. 2. J-tube site cellulitis. INTERIM HISTORY: The patient is currently afebrile. The patient is breathing comfortably. The patient denies having any chest pain or shortness of breath or cough. No further vomiting. She did not have any diarrhea. PHYSICAL EXAMINATION: Blood pressure 115/71 with a pulse of 73, temperature 99.8. She is 97% on room air. General description is a middle-aged female lying in bed in no distress. RESPIRATORY SYSTEM: Unlabored breathing. Clear to auscultation anteriorly. HEART: S1, S2. Regular rate and rhythm. ABDOMEN: Soft. No tenderness. EXTREMITIES: No edema of the feet. LABS: Blood culture has been negative. DIAGNOSTIC IMPRESSION AND PLAN: 1. Patient admitted to hospital with acute nausea, vomiting and diarrhea with x-ray suggestive of enteritis, possibly viral or bacterial; still waiting for the stool studies; the patient has not provided any sample. Continue with symptomatic treatment. 2. J-tube site currently with no evidence of any cellulitis; hence no need for any local treatment or systemic antibiotic therapy for the same. MMODL / IJN: [id number] /
[2019-08-28 17:06] LABS: Glucose,Whole Blood 108 mg/dL (75-99)
[2019-08-28] MEDS: ONDANSETRON 4 MG/2 ML VIAL IVP PRN (19:49)
[2019-08-28 20:38] LABS: Glucose,Whole Blood 112 mg/dL (75-99)
--- NOTE | 2019-08-28 22:23 | PN ---
PROGRESS NOTE CHIEF COMPLAINT: Intractable nausea and vomiting and abdominal pain. HISTORY OF PRESENT ILLNESS: This lady is still having pain and still vomiting occasionally. She is being seen by Infectious Disease. I will also have Surgery evaluate her jejunostomy site to see if there is a potential for a revision. Review of systems is otherwise normal. She is not running a fever. PHYSICAL EXAMINATION: Chest is clear and cardiac exam is normal. Abdomen is soft, nontender. Maceration around the jejunostomy tube is about the same. IMPRESSION: 1. Maceration and cellulitis of the abdominal wall. 2. Gastroparesis. PLAN: Continue with analgesics, antiemetics and antibiotics and await consult from Surgery. MMODL / IJN: [id number] /
[2019-08-28 23:44] LABS: Glucose,Whole Blood 116 mg/dL (75-99)
[2019-08-29] MEDS: HYDROmorphone 1 MG/ML 1 ML SYRINGE IVP PRN ×6 (02:38→21:38)
[2019-08-29] MEDS: diphenhydrAMINE 50 MG/ML 1 ML VIAL IVP PRN ×2 (05:26→12:24)
[2019-08-29] MEDS: [UNRECOGNIZED DRUG - OTHER] PO SCH ×2 (06:51→20:33)
[2019-08-29] MEDS: THYROID, PORK 30 MG TAB PO SCH ×2 (06:51→07:31)
[2019-08-29 06:55] LABS: Glucose,Whole Blood 115 mg/dL (75-99)
[2019-08-29] MEDS: INSULIN ASPART (NovoLOG) 100 UNIT/ML VIAL SQ SCH ×3 (06:57→20:33)
[2019-08-29] MEDS ORDERED: SCOPOLAMINE 1.5MG/72HR PATCH TRANSDERM SCH (09:00)
[2019-08-29 09:21] LABS: Ionized Calcium 5.1 mg/dL (4.5-5.3)
[2019-08-29] MEDS: ENOXAPARIN 80 MG/0.8 ML SYRINGE SQ SCH ×2 (09:25→20:35)
[2019-08-29] MEDS: MONTELUKAST 5 MG CHEWABLE PO SCH (09:26)
[2019-08-29] MEDS: TOPIRAMATE 25 MG TAB PO SCH ×2 (09:28→20:35)
[2019-08-29] MEDS: PANTOPRAZOLE 40 MG/10 ML VIAL IV SCH (09:31)
[2019-08-29 09:36] LABS: ALT 54 U/L (4-34); AST 76 U/L (14-36); African American GFR (CKD) >90 (>60 ml/min/1.73 sqM); Albumin 3.5 g/dL (3.5-5.0); Alkaline Phosphatase 106 U/L (38-126); Anion Gap 6 mmol/L; Blood Urea Nitrogen 14 mg/dL (7-17); Calcium 8.9 mg/dL (8.4-10.2); Carbon Dioxide 21 mmol/L (22-30); Chloride 110 mmol/L (98-107); Glucose 105 mg/dL (74-99); Magnesium 2.2 mg/dL (1.6-2.3); Non-African American GFR(CKD) 82 (>60 ml/min/1.73 sqM); Phosphorus 4.7 mg/dL (2.5-4.5); Potassium 4.3 mmol/L (3.5-5.1); Sodium 137 mmol/L (137-145); Total Bilirubin 0.4 mg/dL (0.2-1.3); Total Protein 6.2 g/dL (6.3-8.2)
[2019-08-29] MEDS: ONDANSETRON 4 MG/2 ML VIAL IVP PRN ×2 (09:38→20:35)
[2019-08-29] MEDS: FAT EMULSION 20% 250 ML in EMPTY BAG 1 BAG IV SCH (10:06)
[2019-08-29 12:44] LABS: Glucose,Whole Blood 97 mg/dL (75-99)
--- NOTE | 2019-08-29 13:19 | P.PN ---
<Janelle López A - Last Filed: 08/29/19 13:15> Subjective Progress Note Date: 08/29/19 CHIEF COMPLAINT: Evaluate jejunostomy site HISTORY OF PRESENT ILLNESS: Patient examined this morning at the bedside. She denies abdominal pain. Denies any worsening redness around J tube. She denies nausea or vomiting. Vital signs are stable. She is afebrile this morning. She is hoping to be discharged home today. PHYSICAL EXAM: VITAL SIGNS: Reviewed GENERAL: Well-developed in no acute distress. HEENT: No sclera icterus. Extraocular movements grossly intact. Moist buccal mucosa. Head is atraumatic, normocephalic. Hears conversational speech. No nasal draina ge. NECK: Supple without lymphadenopathy. CHEST: Non-labored respirations and equal bilateral excursions. CARDIOVASCULAR: Regular rate with regular rhythm. Palpable 2+ radial pulses. ABDOMEN: Soft. Nondistended. Nontender. J tube noted with very mild surrounding erythema. MUSCULOSKELETAL: No clubbing or cyanosis. NEUROLOGIC: No focal or lateralizing signs. Cranial nerves II through XII g rossly intact. PSYCH: Appropriate affect. Alert and oriented to person, place and time. SKIN: Well perfused. Good skin turgor. ASSESSMENT: 1. Acute on chronic nausea and vomiting 2. History of idiopathic gastroparesis 3. Frequent cellulitis of J-tube per patient 4. 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 Will defer to internal medicine Patient already has an established surgeon at [facility]. Recommend patient to continue to follow with her surgeon at [facility] post discharge. Nurse practitioner note has been reviewed by physician. Signing provider agrees with the documented findings, assessment, and plan of care. Objective - Vital Signs Vital signs: Vital Signs Temp 98.6 F 08/29/19 09:39 Pulse 68 08/29/19 09:39 Resp 16 08/29/19 09:39 BP 117/71 08/29/19 09:39 Pulse Ox 96 08/29/19 09:39 Intake & Output 08/28/19 08/29/19 08/29/19 18:59 06:59 18:59 Intake Total 0 1740 300 Output Total 800 Balance -800 1740 300 Weight 79.2 kg 80.1 kg Intake: Oral 0 1740 300 Output: Urine 800 Other: Voiding Method Toilet # Voids 2 1 - Labs CBC & Chem 7: 08/27/19 06:50 08/29/19 08:55 Labs: Abnormal Lab Results - Last 24 Hours (Table) 08/28/19 08/28/19 08/28/19 Range/Units 17:01 20:36 23:42 Chloride (98-107) mmol/L Carbon Dioxide (22-30) mmol/L Glucose (74-99) mg/dL POC Glucose (mg/dL) 108 H 112 H 116 H (75-99) mg/dL Phosphorus (2.5-4.5) mg/dL AST (14-36) U/L ALT (4-34) U/L Total Protein (6.3-8.2) g/dL 08/29/19 08/29/19 Range/Units 06:54 08:55 Chloride 110 H (98-107) mmol/L Carbon Dioxide 21 L (22-30) mmol/L Glucose 105 H (74-99) mg/dL POC Glucose (mg/dL) 115 H (75-99) mg/dL Phosphorus 4.7 H (2.5-4.5) mg/dL AST 76 H (14-36) U/L ALT 54 H (4-34) U/L Total Protein 6.2 L (6.3-8.2) g/dL Microbiology - Last 24 Hours (Table) 08/28/19 16:45 Stool Culture - Preliminary Stool 08/26/19 21:03 Blood Culture - Preliminary Blood No Growth after 48 hours <Rosemarie Marie N - Last Filed: 08/29/19 18:05> Subjective Patient seen and evaluated and agree with above. Patient seen and evaluated. Agree with above. Please see additional comments below. HISTORY OF PRESENT ILLNESS: The patient is a 39 year old female admitted with abdominal wall infection secondary to jejunostomy tube feeding site as well as fistula. Since admission, she has been managed with IV antibiotics and has done fairly well. She denies any moderate abdominal pain at this time. She does report receiving intravenous fluids and TPN via Port-A-Cath along the left chest. PHYSICAL EXAM: VITALS: Reviewed CONSTITUTIONAL: Well developed and in no acute distress. EYES: Conjuctivae without sclera icterus. Pupils are equally round and reactive to light. Extraocular movements grossly intact. HEAD, EARS, NOSE, THROAT: Moist buccal mucosa. Head is atraumatic, normocephalic. Hears conversational speech. No nasal drainage. NECK: No JV distention. No thyroidomegaly. RESPIRATORY: Non-labored respirations and equal bilateral excursions. No gross wheezes. CARDIOVASCULAR: Regular rate and rhythm. ABDOMEN: No peritonitis. Jejunostomy feeding tube site intact. MUSCULOSKELETAL: No clubbing or cyanosis. SKIN: Warm and well perfused. NEUROLOGIC: Cranial nerves II through XII grossly intact. No focal or lateralizing signs. PSYCH: Appropriate affect. Alert and oriented to person, place and time. Displays appropriate insight. CLINCAL LABS: Reviewed. Sodium and potassium within normal limits. AST and ALT elevated at 76 and 54 respectively ASSESSMENT: 1. Jejunostomy feeding tube infection PLAN: 1. Surgical management defer to patient's provider at [facility] for surgical intervention 2. Continue IV antibiotics 3. Otherwise patient surgically stable for discharge Objective - Vital Signs Vital signs: Vital Signs Temp 98.4 F 08/29/19 14:24 Pulse 74 08/29/19 14:24 Resp 16 08/29/19 14:24 BP 114/70 08/29/19 14:24 Pulse Ox 97 08/29/19 14:24 Intake & Output 08/28/19 08/29/19 08/29/19 18:59 06:59 18:59 Intake Total 0 2751 540 Output Total 800 Balance -800 2751 540 Weight 79.2 kg 80.1 kg Intake: Intake, IV Titration 1011 Amount Mvi, Adult No.4 with Vit 1011 K 10 ml Trace (Conc-1Ml/ Dose) 1 ml In Amino Acid 5%-D15w+Lytes*E* 1,000 ml @ 75 mls/hr IV .BY DURATION MILAN Rx#: [id number] Oral 0 1740 540 Output: Urine 800 Other: Voiding Method Toilet # Voids 2 1 # Bowel Movements 1 # Emeses 1 - Labs CBC & Chem 7: 08/27/19 06:50 08/29/19 08:55 Labs: Abnormal Lab Results - Last 24 Hours (Table) 08/28/19 08/28/19 08/29/19 Range/Units 20:36 23:42 06:54 Chloride (98-107) mmol/L Carbon Dioxide (22-30) mmol/L Glucose (74-99) mg/dL POC Glucose (mg/dL) 112 H 116 H 115 H (75-99) mg/dL Phosphorus (2.5-4.5) mg/dL AST (14-36) U/L ALT (4-34) U/L Total Protein (6.3-8.2) g/dL 08/29/19 Range/Units 08:55 Chloride 110 H (98-107) mmol/L Carbon Dioxide 21 L (22-30) mmol/L Glucose 105 H (74-99) mg/dL POC Glucose (mg/dL) (75-99) mg/dL Phosphorus 4.7 H (2.5-4.5) mg/dL AST 76 H (14-36) U/L ALT 54 H (4-34) U/L Total Protein 6.2 L (6.3-8.2) g/dL Microbiology - Last 24 Hours (Table) 08/28/19 16:45 Stool Culture - Preliminary Stool 08/26/19 21:03 Blood Culture - Preliminary Blood No Growth after 48 hours Assessment and Plan (1) Leak of percutaneous jejunostomy tube Current Visit: Yes Status: Acute Code(s): K94.13 - ENTEROSTOMY MALFUNCTION SNOMED Code(s): 882355424 (2) Abdominal wall cellulitis Current Visit: No Status: Acute Code(s): L03.311 - CELLULITIS OF ABDOMINAL WALL SNOMED Code(s): 72753410 (3) Gastroparesis Current Visit: No Status: Chronic Code(s): K31.84 - GASTROPARESIS SNOMED Code(s): 768279924 (4) Jejunostomy tube present Current Visit: No Status: Chronic Code(s): Z93.4 - OTHER ARTIFICIAL OPENINGS OF GASTROINTESTINAL TRACT STATUS SNOMED Code(s): 751795330
[2019-08-29] MEDS: 1: MVI, ADULT NO.4 WITH VIT K 10 ML, TRACE (CONC-1ML/DOSE) 1 ML in AMINO ACID 5%-D15W+LY IV SCH ×3 (14:09)
--- NOTE | 2019-08-29 16:50 | PN ---
PROGRESS NOTE DATE OF SERVICE: 08/29/2019 REASON FOR FOLLOWUP: 1. Acute gastroenteritis. 2. J-tube site cellulitis. INTERVAL HISTORY: The patient did have a low-grade fever of 100 to 100.1 last night. The patient has been afebrile since then. The patient denies having any chest pain or shortness of breath or cough. Did have one episode of vomiting and one episode of loose stools. Some drainage from the J-tube but no worsening. PHYSICAL EXAMINATION: Blood pressure 114/70 with a pulse of 74, temperature 98.4. She is 97% on room air. General description is a middle-aged female up in the chair in no distress. RESPIRATORY SYSTEM: Unlabored breathing. Clear to auscultation anteriorly. HEART: S1, S2. Regular rate and rhythm. ABDOMEN: Soft. No tenderness. J-tube site with minimal drainage and erythema. LABS: BUN of 14, creatinine 0.90. Liver enzymes mildly elevated. Stool cultures currently pending. C difficile came back negative. DIAGNOSTIC IMPRESSION AND PLAN: 1. Patient admitted to hospital with acute nausea, vomiting and diarrhea with concern for gastroenteritis, possibly viral, with a fever is slightly concerning. Hence it will be monitored closely. If any further fever or worsening diarrhea, empiric antibiotic will be added. 2. J-tube site with minimal drainage. Will apply Triad cream to keep the area dry. Continue with supportive care. MMODL / IJN: [id number] /
[2019-08-29 18:09] LABS: Glucose,Whole Blood 115 mg/dL (75-99)
--- NOTE | 2019-08-29 21:43 | PN ---
PROGRESS NOTE CHIEF COMPLAINT: Maceration and cellulitis of the abdominal wall. HISTORY OF PRESENT ILLNESS: This lady was seen by Surgery, who was deferring to her surgeon at [facility]. She is still having her usual intractable pain and nausea. PHYSICAL EXAMINATION: Color is good. Chest is clear. Cardiac exam is normal. Abdomen is soft, nontender. The macerations around the jejunostomy tube remain the same and the site is tender. There is still slight cellulitis. IMPRESSION: Cellulitis of the abdominal wall. PLAN: Continue with IV fluids and antibiotics and await for clearance for discharge from Infectious Disease. MMODL / IJN: [id number] /
[2019-08-30] MEDS: HYDROmorphone 1 MG/ML 1 ML SYRINGE IVP PRN ×8 (00:32→23:58)
[2019-08-30] MEDS: diphenhydrAMINE 50 MG/ML 1 ML VIAL IVP PRN ×4 (00:40→20:28)
[2019-08-30 00:48] LABS: Glucose,Whole Blood 104 mg/dL (75-99)
[2019-08-30] MEDS: INSULIN ASPART (NovoLOG) 100 UNIT/ML VIAL SQ SCH ×4 (00:51→18:06)
[2019-08-30] MEDS: 1: MVI, ADULT NO.4 WITH VIT K 10 ML, TRACE (CONC-1ML/DOSE) 1 ML in AMINO ACID 5%-D15W+LY IV SCH ×6 (02:59→17:52)
[2019-08-30 06:39] LABS: Glucose,Whole Blood 100 mg/dL (75-99)
[2019-08-30] MEDS: [UNRECOGNIZED DRUG - OTHER] PO SCH ×2 (06:39→17:52)
[2019-08-30] MEDS: THYROID, PORK 30 MG TAB PO SCH (06:40)
[2019-08-30 06:51] LABS: ALT 97 U/L (4-34); AST 66 U/L (14-36); African American GFR (CKD) >90 (>60 ml/min/1.73 sqM); Albumin 3.4 g/dL (3.5-5.0); Alkaline Phosphatase 129 U/L (38-126); Anion Gap 6 mmol/L; Blood Urea Nitrogen 16 mg/dL (7-17); Calcium 8.7 mg/dL (8.4-10.2); Carbon Dioxide 23 mmol/L (22-30); Chloride 109 mmol/L (98-107); Glucose 102 mg/dL (74-99); Magnesium 2.2 mg/dL (1.6-2.3); Non-African American GFR(CKD) 81 (>60 ml/min/1.73 sqM); Phosphorus 4.5 mg/dL (2.5-4.5); Potassium 4.3 mmol/L (3.5-5.1); Sodium 138 mmol/L (137-145); Total Bilirubin 0.3 mg/dL (0.2-1.3); Total Protein 6.1 g/dL (6.3-8.2)
[2019-08-30] MEDS: ENOXAPARIN 80 MG/0.8 ML SYRINGE SQ SCH ×2 (09:33→20:28)
[2019-08-30] MEDS: TOPIRAMATE 25 MG TAB PO SCH ×2 (09:43→20:28)
[2019-08-30] MEDS: MONTELUKAST 5 MG CHEWABLE PO SCH (09:43)
[2019-08-30] MEDS: PANTOPRAZOLE 40 MG/10 ML VIAL IV SCH (09:49)
[2019-08-30] MEDS: FAT EMULSION 20% 250 ML in EMPTY BAG 1 BAG IV SCH (09:51)
[2019-08-30] MEDS: ONDANSETRON 4 MG/2 ML VIAL IVP PRN ×2 (12:13→23:52)
[2019-08-30 12:19] LABS: Glucose,Whole Blood 94 mg/dL (75-99)
[2019-08-30 14:23] VITALS: BMI 31.2
--- NOTE | 2019-08-30 14:46 | PN ---
PROGRESS NOTE DATE OF SERVICE: 08/31/2019 REASON FOR FOLLOWUP: 1. Acute gastroenteritis possible . 2. Left J-tube site drainage and cellulitis. INTERVAL HISTORY: The patient is currently afebrile. The patient is feeling better. Breathing comfortably. No nausea, vomiting and diarrhea. Did have abdominal pain. NG tube site looks clean. No further drainage. No chest pain, shortness of breath or cough. PHYSICAL EXAMINATION: Blood pressure 133/77 with a pulse of 89, temperature 99.5, she is . General description is a middle-aged female, lying in bed in no distress. RESPIRATORY SYSTEM: Unlabored breathing, clear to auscultation anteriorly. HEART: S1, S2. Regular rate and rhythm. ABDOMEN: Soft. No tenderness. J-tube site Incision looks clean, no drainage. LABS: BUN of 16, creatinine 0.91. Stool culture negative, so far blood culture negative. DIAGNOSTIC IMPRESSION AND PLAN: 1. Patient admitted to the hospital with nausea, vomiting and diarrhea in this patient likely a viral gastritis, seems to have shown overall clinical improvement with symptomatic treatment. No need for any systemic antibiotic on discharge. 2. J-tube site erythema more likely irritation from the GI secretion. Continue with triad cream, no need for any systemic antibiotic on discharge. MMODL / IJN: [id number] /
[2019-08-30] MEDS: PROMETHAZINE INJ 12.5 MG in SODIUM CHLORIDE 0.9% 50 ML IVPB PRN (16:57)
[2019-08-30 18:17] LABS: Glucose,Whole Blood 90 mg/dL (75-99)
--- NOTE | 2019-08-30 18:51 | PN ---
PROGRESS NOTE CHIEF COMPLAINT: Cellulitis of abdominal wall and intractable abdominal pain and vomiting. HISTORY OF PRESENT ILLNESS: This lady was to have been discharged home today, but later in the day she started to complain of more abdominal pain and then started to have more vomiting and retching. She has had no fever. It was decided that her discharge would be held over. When she was seen in the morning her chest is clear and cardiac exam was normal. The abdomen is soft and nontender. IMPRESSION: 1. Intractable nausea and vomiting. 2. Intractable abdominal pain. 3. Gastroparesis. 4. Cellulitis and maceration of the abdominal wall. PLAN: Cancel discharge for today and reassess tomorrow. MMODL / IJN: [id number] /
[2019-08-30 23:59] LABS: Glucose,Whole Blood 104 mg/dL (75-99)
[2019-08-31] MEDS: INSULIN ASPART (NovoLOG) 100 UNIT/ML VIAL SQ SCH ×3 (00:24→13:12)
[2019-08-31 00:28] VITALS: TEMP 98.8
--- NOTE | 2019-08-31 01:16 | MISC ---
MISCELLANOUS REPORT QUERY: Cellulitis of the abdominal wall POA, I am assuming that that means present on admission, so I think that is the correct answer. COLTEN / FLAKON: [id number] /
[2019-08-31] MEDS: diphenhydrAMINE 50 MG/ML 1 ML VIAL IVP PRN ×2 (03:13→09:19)
[2019-08-31] MEDS: HYDROmorphone 1 MG/ML 1 ML SYRINGE IVP PRN ×4 (03:14→12:43)
[2019-08-31] MEDS: THYROID, PORK 30 MG TAB PO SCH (06:23)
[2019-08-31 06:24] LABS: Glucose,Whole Blood 101 mg/dL (75-99)
[2019-08-31] MEDS: [UNRECOGNIZED DRUG - OTHER] PO SCH (06:24)
[2019-08-31] MEDS: 1: MVI, ADULT NO.4 WITH VIT K 10 ML, TRACE (CONC-1ML/DOSE) 1 ML in AMINO ACID 5%-D15W+LY IV SCH ×3 (06:36)
[2019-08-31 08:37] LABS: African American GFR (CKD) >90 (>60 ml/min/1.73 sqM); Anion Gap 7 mmol/L; Blood Urea Nitrogen 15 mg/dL (7-17); Calcium 8.7 mg/dL (8.4-10.2); Carbon Dioxide 19 mmol/L (22-30); Chloride 111 mmol/L (98-107); Glucose 104 mg/dL (74-99); Magnesium 2.1 mg/dL (1.6-2.3); Non-African American GFR(CKD) 83 (>60 ml/min/1.73 sqM); Phosphorus 4.6 mg/dL (2.5-4.5); Potassium 4.3 mmol/L (3.5-5.1); Sodium 137 mmol/L (137-145)
[2019-08-31 09:10] VITALS: BP 107/69; PULSE 72; RESP 16
[2019-08-31] MEDS: ENOXAPARIN 80 MG/0.8 ML SYRINGE SQ SCH (09:18)
[2019-08-31] MEDS: FAT EMULSION 20% 250 ML in EMPTY BAG 1 BAG IV SCH (09:19)
[2019-08-31] MEDS: ONDANSETRON 4 MG/2 ML VIAL IVP PRN (09:19)
[2019-08-31] MEDS: PANTOPRAZOLE 40 MG/10 ML VIAL IV SCH (09:20)
[2019-08-31] MEDS: MONTELUKAST 5 MG CHEWABLE PO SCH (09:21)
[2019-08-31] MEDS: TOPIRAMATE 25 MG TAB PO SCH (09:22)
[2019-08-31] MEDS: PROMETHAZINE INJ 12.5 MG in SODIUM CHLORIDE 0.9% 50 ML IVPB PRN (12:07)
[2019-08-31 12:17] LABS: Glucose,Whole Blood 93 mg/dL (75-99)
--- NOTE | 2019-08-31 14:29 | PN ---
PROGRESS NOTE DATE OF SERVICE: 08/31/2019 REASON FOR FOLLOWUP: 1. Acute gastroenteritis. 2. J-tube site drainage. INTERVAL HISTORY: The patient is currently afebrile. The patient is feeling better. Breathing comfortably. Discharge was put on hold yesterday because of vomiting, has subsequently resolved. Denies any worsening diarrhea and/or drainage on the J-tube site. PHYSICAL EXAMINATION: Blood pressure 107/69, pulse 72, temperature 98.8. She is 97% on room air. General description is a middle-aged female, up in the bed in no distress. RESPIRATORY SYSTEM: Unlabored breathing, clear to auscultation anteriorly. HEART: S1, S2. Regular rate and rhythm. ABDOMEN: Soft, no tenderness. LABS: BUN of 15, creatinine 0.89. DIAGNOSTIC IMPRESSION AND PLAN: 1. Patient admitted to the hospital with acute nausea, vomiting, diarrhea and concern for a possible pneumonitis. Stool culture so far negative. Continue symptomatic treatment. 2. J-tube site drainage. Local care with a triad cream, no need for any systemic antibiotic on discharge. MMODL / IJN: [id number] /
--- NOTE | 2019-08-31 23:30 | DS ---
DISCHARGE SUMMARY CHIEF COMPLAINT: Abdominal wall cellulitis, maceration, chronic abdominal pain and vomiting and gastroparesis. HISTORY OF PRESENT ILLNESS AND PHYSICAL EXAMINATION: Details of this lady's history and physical can be found in the initial workup. LABORATORY STUDIES: While she was in the hospital she had laboratory studies, details of which can be found in the laboratory section of her chart. COURSE IN THE HOSPITAL: After admission she was placed on bedrest and started on intravenous fluids, TPN and analgesics. She was seen in consultation by General Surgery and Infectious Disease. She had improvement in her cellulitis and maceration of the abdominal wall. Surgery did not feel that she was a candidate for any surgical intervention with regard to her jejunostomy tube. She was doing well and it was felt that she could go home on August 30. She will go home on her usual activity, diet and medication as well as TPN and we will follow her up from the office. FINAL DIAGNOSES: 1. Cellulitis and maceration of the abdominal wall. 2. Intractable abdominal pain and vomiting. 3. Gastroparesis. OPERATIONS: None. CONSULTATIONS: 1. General Surgery. 2. Infectious Disease. She is improved. MMODL / IJN: [id number] /
== END 2019-08-31 13:12 | disposition home health service (06) | DRG 394 ==
LOC: EC 19:09 → 4SSUR 22:48 → 6PED 23:44 → OBSVTOIN 08-28 09:12
PROVIDERS: ADMIT Family Medicine; ATTEND Family Medicine
DX: K94.12 Enterostomy infection (principal); L03.311 Cellulitis of abdominal wall; K94.13 Enterostomy malfunction; A08.4 Viral intestinal infection, unspecified; E03.9 Hypothyroidism, unspecified; G89.29 Other chronic pain; K31.84 Gastroparesis; F32.9 Major depressive disorder, single episode, unspecified; G43.909 Migraine, unspecified, not intractable, without status migrainosus; K21.9 Gastro-esophageal reflux disease without esophagitis; Z11.59 Encounter for screening for other viral diseases; Z79.899 Other long term (current) drug therapy; Z79.890 Hormone replacement therapy; Z88.8 Allergy status to other drugs, medicaments and biological substances; Z86.711 Personal history of pulmonary embolism; Z86.718 Personal history of other venous thrombosis and embolism; Z90.49 Acquired absence of other specified parts of digestive tract; Z82.49 Family history of ischemic heart disease and other diseases of the circulatory system; Y83.3 Surgical operation with formation of external stoma as the cause of abnormal reaction of the patient, or of later complication, without mention of misadventure at the time of the procedure
CPT/HCPCS: 36415; 74018; 80048; 80053; 81001; 82150; 82330; 83690; 83735; 84100; 84478; 85025; 85610; 85730; 87040; 87045; 87046; 87324; 87635; 96361; 96374; 96375; 96376; 99285

== ENCOUNTER 2019-09-01 22:20 | Inpatient (IN) | payer BC ==
[2019-09-01] MEDS ORDERED: SODIUM CHLORIDE 0.9% 500 ML 500 ML IV ONE (22:53)
[2019-09-01] MEDS ORDERED: SODIUM CHLORIDE 0.9% 1,000 ML IV ONE (22:53)
[2019-09-01] MEDS ORDERED: diphenhydrAMINE 50 MG/ML 1 ML VIAL IVP STA (23:49)
[2019-09-01] MEDS ORDERED: LORazepam 2 MG/ML INJ IV STA (23:49)
[2019-09-02] MEDS ORDERED: IBUPROFEN IV 400 MG in SODIUM CHLORIDE 0.9% 100 ML IV ONE ×2
--- NOTE | 2019-09-02 00:01 | ED ---
Fever HPI - General Chief Complaint: Fever Stated Complaint: Vomiting Time Seen by Provider: 09/01/19 22:51 Source: patient Mode of arrival: ambulatory Limitations: no limitations - History of Present Illness Initial Comments: Patient is a pleasant 39yo female known to this emergency department with history of gastroparaesis. chronic abdominal pain, J-tube for feedings, medi- port left sided, history of UTI presenting today for cc of fever, vomiting. Alberto pearl states she was recently admitted and monitored for concern for infection. She was inpatient 5 days pending results of blood cultures/urine cultures. No growth. Patient was discharged she initially presented secondary to low grade fevers. She states she had no fevers in patient however today around 8:30PM she developed chills, and measured temperature of 102F. Patient denies cough. But does admit to left sided ear pain, denies HUNTER, neck stiffness, chest pain, SOB, leg or arm swelling. Patient denies sore throat. Patient state states that her nausea and vomiting seems increased. She took phenergan and zofran 8mg prior to arrival. Patient denies additional complaints. Upon arrival she is febrile, HR elevated. - Related Data Home Medications Medication Instructions Recorded Confirmed Montelukast Chew [Singulair] 10 mg PO DAILY 02/02/18 09/02/19 Topiramate [Trokendi Xr] 50 mg PO HS 07/18/18 09/02/19 Thyroid,Pork [[place] Thyroid] 60 mg PO Q48H 10/06/18 09/02/19 Thyroid,Pork [[place] Thyroid] 90 mg PO Q48H 10/06/18 09/02/19 Prucalopride Succinate [Motegrity] 2 mg PO DAILY 01/14/19 09/02/19 oxyCODONE HCL [oxyCODONE HCL (IR)] 10 mg PO Q8H PRN 04/20/19 09/02/19 Linaclotide [Linzess] 290 mcg PO DAILY 05/24/19 09/02/19 Tegaserod Hydrogen Maleate 6 mg PO AC-BID 05/24/19 09/02/19 [Zelnorm] Enoxaparin [Lovenox] 80 mg SQ Q12H 06/08/19 09/02/19 Phenergen 12.5 mg IV Q8HR PRN 06/08/19 09/02/19 Ondansetron 4mg 4 mg IV Q8H PRN 06/23/19 09/02/19 Dicyclomine [Bentyl] 10 mg PO Q8H PRN 08/08/19 09/02/19 Lansoprazole 30 mg PO BID 08/27/19 09/02/19 Previous Rx's Medication Instructions Recorded Scopolamine 1.5MG/72Hr Patch 1 patch TRANSDERM Q72H #10 patch 07/31/18 [TransDerm Scop] Allergies Allergy/AdvReac Type Severity Reaction Status Date / Time metoclopramide [From Reglan] AdvReac Mild jittery Verified 09/02/19 08:58 prochlorperazine AdvReac Mild JITTERY Verified 09/02/19 08:58 [From Compazine] Review of Systems ROS Statement: Those systems with pertinent positive or pertinent negative responses have been documented in the HPI. ROS Other: All systems not noted in ROS Statement are negative. Past Medical History Past Medical History: Deep Vein Thrombosis (DVT), GERD/Reflux, Pulmonary Embolus (PE), Thyroid Disorder Additional Past Medical History / Comment(s): Other hx:Idiopathic gastroparesis, takes little in orally-has J tube for feedings-currently on hold and receiving TPN, chronic abdominal pain, R pulmonary embolism -2017, dvt R upper extremity 2018, pancreatitis once in 2018-thought stone somewhere, hypothyroid, chronic anemia, sinus problems, migraine. 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 J tube replaced-last replace in November or December 2018, piccs, mediport insertion Past Anesthesia/Blood Transfusion Reactions: No Reported Reaction Past Psychological History: Depression Smoking Status: Never smoker Past Alcohol Use History: None Reported Past Drug Use History: None Reported - Past Family History Father Family Medical History: Hypertension Additional Family Medical History / Comment(s): Father is 57 yrs old.. Mother Family Medical History: No Reported History Additional Family Medical History / Comment(s): Mother is 57yrs old. General Exam Limitations: no limitations Course Vital Signs 09/01/19 09/01/19 09/01/19 22:43 22:55 23:10 Temperature 102.6 F H 102.4 F H 102.9 F H Pulse Rate 131 H 116 H 11 L Pulse Rate [ Apical] Respiratory 20 26 H 32 H Rate Blood Pressure 100/64 135/85 124/89 O2 Sat by Pulse 98 97 100 Oximetry 09/01/19 09/01/19 09/01/19 23:25 23:30 23:40 Temperature 102.9 F H 102.9 F H Pulse Rate 114 H 112 H Pulse Rate [ 126 H Apical] Respiratory 22 20 Rate Blood Pressure 141/63 106/77 O2 Sat by Pulse 100 100 Oximetry 09/02/19 09/02/19 09/02/19 01:00 01:38 02:05 Temperature 103 F H 102.7 F H 102.3 F H Pulse Rate 128 H 130 H 122 H Pulse Rate [ Apical] Respiratory 16 16 16 Rate Blood Pressure 124/56 120/62 96/50 O2 Sat by Pulse 97 97 96 Oximetry 09/02/19 09/02/19 02:57 04:32 Temperature 99.9 F H 98.9 F Pulse Rate 116 H 111 H Pulse Rate [ Apical] Respiratory 16 16 Rate Blood Pressure 112/62 126/73 O2 Sat by Pulse 99 96 Oximetry Medical Decision Making - Medical Decision Making 39yo female presenting for fever, nausea, vomiting. No vomiting in ER. Patient appears septic with HR elevated and fever. There is a noted left sided otitis media however given patient PMH I cannot be certain that this is the cause. Patient recently had j tube drainage. Cultures were obtained from her medi port and peripherally. Patient Urine cultured. Broad spectrum antibiotics initiated. Patient givne IVF and antipyretics. Slight increase in AST/ALT/Alk Phos appears patient fluctuates on chart review of previous values, previous ana. Patient denies new abdominal pain. Denies any other focalizing symptoms aside from left ear pain, no pain to palpation of the mastoid, no redness or swelling. Patient case discussed in detail [facility] Dr. Finch who is agreeable to admission, Dr. Adame was contacted he is aware patient is febrile/tachycardic and there is concern for sepsis. Patient does receive primary surgical care at [facility] however family is rquesting to stay at this facility for ID treatment and would be agreeable to transfer for continuity of care if needed. Patient admitted to telemetry floor BP stable. - Lab Data Result diagrams: 09/01/19 23:25 09/02/19 14:29 Lab Results 09/01/19 09/01/19 09/01/19 Range/Units 23:25 23:25 23:25 WBC 7.0 (3.8-10.6) k/uL RBC 4.22 (3.80-5.40) m/uL Hgb 11.6 (11.4-16.0) gm/dL Hct 34.8 (34.0-46.0) % MCV 82.5 (80.0-100.0) fL MCH 27.4 (25.0-35.0) pg MCHC 33.2 (31.0-37.0) g/dL RDW 13.4 (11.5-15.5) % Plt Count 216 (150-450) k/uL Neutrophils % 89 % Lymphocytes % 7 % Monocytes % 2 % Eosinophils % 1 % Basophils % 0 % Neutrophils # 6.2 (1.3-7.7) k/uL Lymphocytes # 0.5 L (1.0-4.8) k/uL Monocytes # 0.1 (0-1.0) k/uL Eosinophils # 0.0 (0-0.7) k/uL Basophils # 0.0 (0-0.2) k/uL Sodium 132 L (137-145) mmol/L Potassium 4.2 (3.5-5.1) mmol/L Chloride 104 (98-107) mmol/L Carbon Dioxide 18 L (22-30) mmol/L Anion Gap 10 mmol/L BUN 11 (7-17) mg/dL Creatinine 1.05 H (0.52-1.04) mg/dL Est GFR (CKD-EPI)AfAm 78 (>60 ml/min/1.73 sqM) Est GFR (CKD-EPI)NonAf 68 (>60 ml/min/1.73 sqM) Glucose 73 L (74-99) mg/dL Plasma Lactic Acid Frank 1.2 (0.7-2.0) mmol/L Calcium 9.0 (8.4-10.2) mg/dL Total Bilirubin 0.9 (0.2-1.3) mg/dL AST 113 H (14-36) U/L ALT 169 H (4-34) U/L Alkaline Phosphatase 279 H (38-126) U/L Troponin I (0.000-0.034) ng/mL Total Protein 6.3 (6.3-8.2) g/dL Albumin 3.8 (3.5-5.0) g/dL TSH (0.465-4.680) mIU/L Free T4 (0.78-2.19) ng/dL Urine Color Urine Appearance (Clear) Urine pH (5.0-8.0) Ur Specific [place] (1.001-1.035) Urine Protein (Negative) Urine Glucose (UA) (Negative) Urine Ketones (Negative) Urine Blood (Negative) Urine Nitrite (Negative) Urine Bilirubin (Negative) Urine Urobilinogen (<2.0) mg/dL Ur Leukocyte Esterase (Negative) Urine RBC (0-5) /hpf Urine WBC (0-5) /hpf Ur Squamous Epith Cells (0-4) /hpf Urine Bacteria (None) /hpf Hyaline Casts (0-2) /lpf Urine Mucus (None) /hpf Urine Yeast (Budding) (None) /hpf Urine HCG, Qual (Not Detectd) 09/01/19 09/01/19 09/02/19 Range/Units 23:25 23:25 00:00 WBC (3.8-10.6) k/uL RBC (3.80-5.40) m/uL Hgb (11.4-16.0) gm/dL Hct (34.0-46.0) % MCV (80.0-100.0) fL MCH (25.0-35.0) pg MCHC (31.0-37.0) g/dL RDW (11.5-15.5) % Plt Count (150-450) k/uL Neutrophils % % Lymphocytes % % Monocytes % % Eosinophils % % Basophils % % Neutrophils # (1.3-7.7) k/uL Lymphocytes # (1.0-4.8) k/uL Monocytes # (0-1.0) k/uL Eosinophils # (0-0.7) k/uL Basophils # (0-0.2) k/uL Sodium (137-145) mmol/L Potassium (3.5-5.1) mmol/L Chloride (98-107) mmol/L Carbon Dioxide (22-30) mmol/L Anion Gap mmol/L BUN (7-17) mg/dL Creatinine (0.52-1.04) mg/dL Est GFR (CKD-EPI)AfAm (>60 ml/min/1.73 sqM) Est GFR (CKD-EPI)NonAf (>60 ml/min/1.73 sqM) Glucose (74-99) mg/dL Plasma Lactic Acid Frank (0.7-2.0) mmol/L Calcium (8.4-10.2) mg/dL Total Bilirubin (0.2-1.3) mg/dL AST (14-36) U/L ALT (4-34) U/L Alkaline Phosphatase (38-126) U/L Troponin I <0.012 (0.000-0.034) ng/mL Total Protein (6.3-8.2) g/dL Albumin (3.5-5.0) g/dL TSH 0.253 L (0.465-4.680) mIU/L Free T4 0.98 (0.78-2.19) ng/dL Urine Color Yellow Urine Appearance Cloudy H (Clear) Urine pH 7.0 (5.0-8.0) Ur Specific [place] 1.011 (1.001-1.035) Urine Protein Negative (Negative) Urine Glucose (UA) Negative (Negative) Urine Ketones 3+ H (Negative) Urine Blood Moderate H (Negative) Urine Nitrite Negative (Negative) Urine Bilirubin Negative (Negative) Urine Urobilinogen <2.0 (<2.0) mg/dL Ur Leukocyte Esterase Large H (Negative) Urine RBC 2 (0-5) /hpf Urine WBC 5 (0-5) /hpf Ur Squamous Epith Cells 12 H (0-4) /hpf Urine Bacteria Moderate H (None) /hpf Hyaline Casts 1 (0-2) /lpf Urine Mucus Rare H (None) /hpf Urine Yeast (Budding) Occasional H (None) /hpf Urine HCG, Qual (Not Detectd) 09/02/19 Range/Units 00:00 WBC (3.8-10.6) k/uL RBC (3.80-5.40) m/uL Hgb (11.4-16.0) gm/dL Hct (34.0-46.0) % MCV (80.0-100.0) fL MCH (25.0-35.0) pg MCHC (31.0-37.0) g/dL RDW (11.5-15.5) % Plt Count (150-450) k/uL Neutrophils % % Lymphocytes % % Monocytes % % Eosinophils % % Basophils % % Neutrophils # (1.3-7.7) k/uL Lymphocytes # (1.0-4.8) k/uL Monocytes # (0-1.0) k/uL Eosinophils # (0-0.7) k/uL Basophils # (0-0.2) k/uL Sodium (137-145) mmol/L Potassium (3.5-5.1) mmol/L Chloride (98-107) mmol/L Carbon Dioxide (22-30) mmol/L Anion Gap mmol/L BUN (7-17) mg/dL Creatinine (0.52-1.04) mg/dL Est GFR (CKD-EPI)AfAm (>60 ml/min/1.73 sqM) Est GFR (CKD-EPI)NonAf (>60 ml/min/1.73 sqM) Glucose (74-99) mg/dL Plasma Lactic Acid Frank (0.7-2.0) mmol/L Calcium (8.4-10.2) mg/dL Total Bilirubin (0.2-1.3) mg/dL AST (14-36) U/L ALT (4-34) U/L Alkaline Phosphatase (38-126) U/L Troponin I (0.000-0.034) ng/mL Total Protein (6.3-8.2) g/dL Albumin (3.5-5.0) g/dL TSH (0.465-4.680) mIU/L Free T4 (0.78-2.19) ng/dL Urine Color Urine Appearance (Clear) Urine pH (5.0-8.0) Ur Specific [place] (1.001-1.035) Urine Protein (Negative) Urine Glucose (UA) (Negative) Urine Ketones (Negative) Urine Blood (Negative) Urine Nitrite (Negative) Urine Bilirubin (Negative) Urine Urobilinogen (<2.0) mg/dL Ur Leukocyte Esterase (Negative) Urine RBC (0-5) /hpf Urine WBC (0-5) /hpf Ur Squamous Epith Cells (0-4) /hpf Urine Bacteria (None) /hpf Hyaline Casts (0-2) /lpf Urine Mucus (None) /hpf Urine Yeast (Budding) (None) /hpf Urine HCG, Qual Not Detected (Not Detectd) Disposition Clinical Impression: Fever, Sepsis, Left otitis media Disposition: ADMITTED IP TO THIS HOSP Condition: Stable Is patient prescribed a controlled substance at d/c from ED?: No Time of Disposition: 00:01 Decision to Admit Reason: Admit from EC Decision Date: 09/02/19 Decision Time: 00:01
[2019-09-02 00:09] LABS: Basophils % (A) 0 %; Eosinophils % (A) 1 %; HCT 34.8 % (34.0-46.0); HGB 11.6 gm/dL (11.4-16.0); Lymphocytes # (A) 0.5 k/uL (1.0-4.8); Lymphocytes % (A) 7 %; MCH 27.4 pg (25.0-35.0); MCHC 33.2 g/dL (31.0-37.0); MCV 82.5 fL (80.0-100.0); Mean Platelet Volume 7.4; Monocytes # (A) 0.1 k/uL (0-1.0); Monocytes % (A) 2 %; Neutrophils # (A) 6.2 k/uL (1.3-7.7); Neutrophils % (A) 89 %; Platelet Count 216 k/uL (150-450); RBC 4.22 m/uL (3.80-5.40); RDW 13.4 % (11.5-15.5)
[2019-09-02 00:32] LABS: Appearance,Urine Cloudy (Clear); Bacteria,Urine Moderate /hpf; Bilirubin,Urine Negative (Negative); Blood,Urine Moderate (Negative); Budding Yeast,Urine Occasional /hpf; Color,Urine Yellow; Glucose,Urine (UA) Negative (Negative); Hyaline Casts,Urine 1 /lpf (0-2); Ketones,Urine 3+ (Negative); Leukocyte Esterase,Urine Large (Negative); Mucus,Urine Rare /hpf; Nitrite,Urine Negative (Negative); Protein,Urine Negative (Negative); RBC,Urine 2 /hpf (0-5); Specific Gravity,Urine 1.011 (1.001-1.035); Squamous Epithelial Cell,Urine 12 /hpf (0-4); Urobilinogen,Urine <2.0 mg/dL (<2.0); WBC,Urine 5 /hpf (0-5)
[2019-09-02 00:33] LABS: Albumin 3.8 g/dL (3.5-5.0); Potassium 4.2 mmol/L (3.5-5.1); Total Bilirubin 0.9 mg/dL (0.2-1.3); Total Protein 6.3 g/dL (6.3-8.2)
--- NOTE | 2019-09-02 00:49 | XR ---
EXAMINATION TYPE: XR chest 2V DATE OF EXAM: 09/02/2019 COMPARISON: 06/13/2019 HISTORY: Fever TECHNIQUE: FINDINGS: Heart and mediastinum are normal. There is left subclavian catheter with tip in the superio r vena cava. There is some coarsening of the interstitial markings in the lower lung mi.. There a re chest leads. There is no pleural effusion. There is no heart failure. Bony thorax is intact. IMPRESSION: Increased lung markings compared to old exam without pulmonary consolidation. Normal hear t. No heart failure.
[2019-09-02] MEDS ORDERED: ACETAMINOPHEN TAB 325 MG TAB PO STA (01:25)
[2019-09-02] MEDS ORDERED: SODIUM CHLORIDE 0.9% 1,000 ML IV ONE (01:44)
[2019-09-02] MEDS ORDERED: NALOXONE 0.4 MG/ML 1 ML VIAL IV PRN (01:44)
[2019-09-02] MEDS: HYDROmorphone 1 MG/ML 1 ML SYRINGE IVP PRN ×5 (04:08→20:58)
[2019-09-02 04:14] LABS: T4, Free (Free Thyroxine) 0.98 ng/dL (0.78-2.19)
[2019-09-02] MEDS: SODIUM CHLORIDE 0.9% 1,000 ML IV SCH ×4 (04:21→23:19)
[2019-09-02] MEDS: ONDANSETRON 4 MG/2 ML VIAL IVP PRN (09:16)
[2019-09-02] MEDS: diphenhydrAMINE 50 MG/ML 1 ML VIAL IVP PRN (10:21)
[2019-09-02] MEDS: ACETAMINOPHEN TAB 325 MG TAB PO PRN ×2 (12:49→21:47)
[2019-09-02 15:02] LABS: ALT 118 U/L (4-34); AST 54 U/L (14-36); African American GFR (CKD) >90 (>60 ml/min/1.73 sqM); Alkaline Phosphatase 193 U/L (38-126); Anion Gap 10 mmol/L; Blood Urea Nitrogen 7 mg/dL (7-17); Carbon Dioxide 15 mmol/L (22-30); Chloride 111 mmol/L (98-107); Glucose 90 mg/dL (74-99); Magnesium 1.8 mg/dL (1.6-2.3); Non-African American GFR(CKD) >90 (>60 ml/min/1.73 sqM); Phosphorus 2.6 mg/dL (2.5-4.5); Potassium 3.8 mmol/L (3.5-5.1); Sodium 136 mmol/L (137-145); Total Bilirubin 0.3 mg/dL (0.2-1.3); Total Protein 5.6 g/dL (6.3-8.2); Triglycerides 37 mg/dL (<150)
[2019-09-02] MEDS ORDERED: MAGNESIUM SULFATE-D5W PMX 1 GM in DEXTROSE/WATER 1 100ML.BAG IVPB ONE (15:15)
[2019-09-02] MEDS ORDERED: MVI, ADULT NO.4 WITH VIT K 10 ML, TRACE (CONC-1ML/DOSE) 1 ML in AMINO ACID 5%-D15W+LYTE... IV ONE ×3 (16:00)
[2019-09-02] MEDS ORDERED: AMPICILLIN-SULBACTAM 1.5 GM in SODIUM CHLORIDE 0.9% 50 ML IVPB SCH (16:15)
[2019-09-02] MEDS: FAT EMULSION 20% 250 ML in EMPTY BAG 1 BAG IV SCH (18:15)
--- NOTE | 2019-09-02 18:43 | US ---
EXAMINATION TYPE: US abdomen complete DATE OF EXAM: 09/02/2019 COMPARISON: 07/17/2018 CLINICAL HISTORY: fever , elevated LFT. GB removed. Fever. EXAM MEASUREMENTS: Liver Length: 18.0 cm CBD: 0.8 cm Spleen: 11.8 cm Right Kidney: 10.5 x 4.8 x 4.8 cm Left Kidney: 9.6 x 4.8 x 5.3 cm Pancreas: Tail obscured by overlying bowel gas Liver: wnl Gallbladder: Surgically absent Evidence for sonographic Auguste's sign: neg CBD: appears within normal limits for GB surgical removal Spleen: wnl Right Kidney: No hydronephrosis or masses seen Left Kidney: No hydronephrosis or masses seen Upper IVC: wnl Abd Aorta: Distal portion obscured by overlying bowel gas IMPRESSION: Cholecystectomy. No dilated ducts. No free fluid. No adverse change compared to old exam.
[2019-09-02] MEDS ORDERED: DICYCLOMINE 10 MG CAP PO PRN (18:58)
[2019-09-02] MEDS ORDERED: ONDANSETRON 4 MG IV PRN (18:58)
[2019-09-02] MEDS ORDERED: PROMETHAZINE 12.5 MG IV PRN (18:58)
[2019-09-02] MEDS ORDERED: SCOPOLAMINE 1.5MG/72HR PATCH TRANSDERM SCH (20:00)
[2019-09-02] MEDS: CEFEPIME 2 GM in SODIUM CHLORIDE 0.9% 100 ML IVPB SCH (20:56)
[2019-09-02] MEDS: ENOXAPARIN 80 MG/0.8 ML SYRINGE SQ SCH (20:57)
[2019-09-02] MEDS: TOPIRAMATE 25 MG TAB PO SCH (20:57)
[2019-09-02] MEDS: PANTOPRAZOLE 40 MG TABLET PO SCH (20:57)
[2019-09-02] MEDS: PROMETHAZINE INJ 12.5 MG in SODIUM CHLORIDE 0.9% 50 ML IVPB PRN (21:48)
--- NOTE | 2019-09-02 22:50 | P.CONS ---
History of Present Illness - Reason for Consult Consult date: 09/02/19 Fever Requesting physician: Wong Adame - Chief Complaint Vomiting and fever x 1 day - History of Present Illness Patient is a 39-year-old female with a past medical history significant for gastroparesis in this patient who did have a G-tube for feeding who was recently admitted at this facility and has been treated for acute gastroenteritis cultures were negative patient subsequent responded to symptomatic treatment and was discharged home patient is now presenting back to the hospital with chief complaints of intractable vomiting that started the day of presentation to the hospital there was yesterday with unable to keep anything down patient denies having abdominal pain and denies having any diarrhea in the ER the patient was noticed to be febrile with a pressure of 102 F patient however was evaluated by the ER physician on arrival to the ER patient did have normal white count she was slightly lymphopenic liver exam has been elevated uri ne has been mildly positive patient did have a chest x-ray shows increased lung markings and pleural exam patient has been admitted hospital surgery was consulted for further management of fever antibiotic therapy subsequently blood cultures are coming positive with gram-negative bacilli. Review of Systems Positive point has been mentioned in HPI rest of the systems are negative Past Medical History Past Medical History: Deep Vein Thrombosis (DVT), GERD/Reflux, Pulmonary Embolus (PE), Thyroid Disorder Additional Past Medical History / Comment(s): Other hx:Idiopathic gastroparesis, takes little in orally-has J tube for feedings-currently on hold and receiving TPN, chronic abdominal pain, R pulmonary embolism 5-2017, dvt R upper extremity 2019, pancreatitis once in 2018-thought stone somewhere, hypothyroid, chronic anemia, sinus problems, migraine. 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 J tube replaced-last repla ce in November or December 2018, piccs, mediport insertion Past Anesthesia/Blood Transfusion Reactions: No Reported Reaction Past Psychological History: Depression Additional Psychological History / Comment(s): . Smoking Status: Never smoker Past Alcohol Use History: None Reported Additional Past Alcohol Use History / Comment(s): PT DENIES SMOKING OR ANY ILLEGAL DRUG USE, HAS AN OCC DRINK. Past Drug Use History: None Reported - Past Family History Father Family Medical History: Hypertension Additional Family Medical History / Comment(s): Father is 57 yrs old.. Mother Family Medical History: No Reported History Additional Family Medical History / Comment(s): Mother is 57yrs old. Medications and Allergies Home Medications Medication Instructions Recorded Confirmed Type Montelukast Chew [Singulair] 10 mg PO DAILY 02/02/18 09/02/19 History Topiramate [Trokendi Xr] 50 mg PO HS 07/18/18 09/02/19 History Scopolamine 1.5MG/72Hr Patch 1 patch TRANSDERM Q72H #10 patch 07/31/18 09/02/19 Rx [TransDerm Scop] Thyroid,Pork [[place] Thyroid] 60 mg PO Q48H 10/06/18 09/02/19 History Thyroid,Pork [[place] Thyroid] 90 mg PO Q48H 10/06/18 09/02/19 History Prucalopride Succinate [Motegrity] 2 mg PO DAILY 01/14/19 09/02/19 History oxyCODONE HCL [oxyCODONE HCL (IR)] 10 mg PO Q8H PRN 04/20/19 09/02/19 History Linaclotide [Linzess] 290 mcg PO DAILY 05/24/19 09/02/19 History Tegaserod Hydrogen Maleate 6 mg PO AC-BID 05/24/19 09/02/19 History [Zelnorm] Enoxaparin [Lovenox] 80 mg SQ Q12H 06/08/19 09/02/19 History Phenergen 12.5 mg IV Q8HR PRN 06/08/19 09/02/19 History Ondansetron 4mg 4 mg IV Q8H PRN 06/23/19 09/02/19 History Dicyclomine [Bentyl] 10 mg PO Q8H PRN 08/08/19 09/02/19 History Lansoprazole 30 mg PO BID 08/27/19 09/02/19 History Allergies Allergy/AdvReac Type Severity Reaction Status Date / Time metoclopramide [From Reglan] AdvReac Mild jittery Verified 09/02/19 08:58 prochlorperazine AdvReac Mild JITTERY Verified 09/02/19 08:58 [From Compazine] Physical Exam Vitals: Vital Signs Temp Pulse Pulse Pulse Resp BP BP 09/02/19 12:00 101.9 F H 117 H 14 111/59 09/02/19 08:00 98.7 F 107 H 19 114/60 09/02/19 05:12 99.4 F 111 H 18 114/77 09/02/19 04:32 98.9 F 111 H 16 126/73 09/02/19 02:57 99.9 F H 116 H 16 112/62 09/02/19 02:05 102.3 F H 122 H 16 96/50 09/02/19 01:38 102.7 F H 130 H 16 120/62 09/02/19 01:00 103 F H 128 H 16 124/56 09/01/19 23:40 102.9 F H 112 H 20 106/77 09/01/19 23:30 126 H 09/01/19 23:25 102.9 F H 114 H 22 141/63 09/01/19 23:10 102.9 F H 11 L 32 H 124/89 09/01/19 22:55 102.4 F H 116 H 26 H 135/85 09/01/19 22:43 102.6 F H 131 H 20 100/64 Pulse Ox 09/02/19 12:00 100 09/02/19 08:00 100 09/02/19 05:12 97 09/02/19 04:32 96 09/02/19 02:57 99 09/02/19 02:05 96 09/02/19 01:38 97 09/02/19 01:00 97 09/01/19 23:40 100 09/01/19 23:30 09/01/19 23:25 100 09/01/19 23:10 100 09/01/19 22:55 97 09/01/19 22:43 98 Intake and Output 09/02/19 09/02/19 09/02/19 06:59 14:59 22:59 Intake Total 120 Balance 120 Intake: Oral 120 Other: Weight 78.925 kg 78.925 kg GENERAL DESCRIPTION: Middle-aged female lying in bed, no distress. No tachypnea or accessory muscle of respiration use. HEENT: Shows Pallor , no scleral icterus. Oral mucous membrane is dry. NECK: Trachea central, no thyromegaly. LUNGS: Unlabored breathing. Clear to auscultation anteriorly. No wheeze or crackle. HEART: S1, S2, regular rate and rhythm. ABDOMEN: Soft, no tenderness , guarding or rigidity EXTREMITIES: No edema of feet. SKIN: No rash, no masses palpable. NEUROLOGICAL: The patient is awake, alert, oriented x3, mood and affect normal. Results CBC & Chem 7: 09/01/19 23:25 09/02/19 14:29 Labs: Abnormal Lab Results - Last 24 Hours (Table) 09/01/19 09/01/19 09/01/19 Range/Units 23:25 23:25 23:25 Lymphocytes # 0.5 L (1.0-4.8) k/uL Sodium 132 L (137-145) mmol/L Chloride (98-107) mmol/L Carbon Dioxide 18 L (22-30) mmol/L Creatinine 1.05 H (0.52-1.04) mg/dL Glucose 73 L (74-99) mg/dL Calcium (8.4-10.2) mg/dL AST 113 H (14-36) U/L ALT 169 H (4-34) U/L Alkaline Phosphatase 279 H (38-126) U/L Total Protein (6.3-8.2) g/dL Albumin (3.5-5.0) g/dL TSH 0.253 L (0.465-4.680) mIU/L Urine Appearance (Clear) Urine Ketones (Negative) Urine Blood (Negative) Ur Leukocyte Esterase (Negative) Ur Squamous Epith Cells (0-4) /hpf Urine Bacteria (None) /hpf Urine Mucus (None) /hpf Urine Yeast (Budding) (None) /hpf 09/02/19 09/02/19 Range/Units 00:00 14:29 Lymphocytes # (1.0-4.8) k/uL Sodium 136 L (137-145) mmol/L Chloride 111 H (98-107) mmol/L Carbon Dioxide 15 L (22-30) mmol/L Creatinine (0.52-1.04) mg/dL Glucose (74-99) mg/dL Calcium 8.0 L (8.4-10.2) mg/dL AST 54 H (14-36) U/L ALT 118 H (4-34) U/L Alkaline Phosphatase 193 H (38-126) U/L Total Protein 5.6 L (6.3-8.2) g/dL Albumin 3.0 L (3.5-5.0) g/dL TSH (0.465-4.680) mIU/L Urine Appearance Cloudy H (Clear) Urine Ketones 3+ H (Negative) Urine Blood Moderate H (Negative) Ur Leukocyte Esterase Large H (Negative) Ur Squamous Epith Cells 12 H (0-4) /hpf Urine Bacteria Moderate H (None) /hpf Urine Mucus Rare H (None) /hpf Urine Yeast (Budding) Occasional H (None) /hpf Microbiology - Last 24 Hours (Table) 09/02/19 00:00 Urine Culture - Preliminary Urine,Voided Assessment and Plan Assessment: patient presented to hospital with fever vomiting and this patient also have elevated liver enzymes though she do have a history of cholecystectomy and no si gnificant tenderness was noticed in the right upper quadrant area did have a positive UA and now with evidence of gram-negative bacteremia source likely abdominal with a question of possible urinary source versus cholangitis, will have to keep in mind Mediport to be the likely source of this fever and bacteremia. (1) Gram-negative bacteremia Current Visit: Yes Status: Acute Code(s): R78.81 - BACTEREMIA SNOMED Code(s): 465599426021 (2) Fever Current Visit: Yes Status: Acute Code(s): R50.9 - FEVER, UNSPECIFIED SNOMED Code(s): 483537478 Plan: 1-patient started on cefepime 2 g every 12hr 2-we will check an ultrasound of the abdomin 3-blood cultures will be repeated We will follow on clinical condition and cultures to further adjust medication if needed Thank you for this consultation we will follow the patient along with you Time with Patient: Greater than 30
--- NOTE | 2019-09-02 23:23 | HP ---
HISTORY AND PHYSICAL CHIEF COMPLAINT: Fever and chills. HISTORY OF PRESENT ILLNESS: This is another admission for this 39-year-old female. She just left the hospital after being treated for cellulitis and maceration of the abdominal wall around her jejunostomy tube. She went home and did well for a day or so and then suddenly developed chills and fever and came to emergency room with a temperature of 103. Abdominal wall appeared to be normal. The urine did look infected and it was felt that this was likely the origin. REVIEW OF SYSTEMS: She has had no headache, confusion, changes in vision or hearing, chest pain, shortness of breath, hemoptysis, purulent sputum production, pleurisy, hypertension, syncope, palpitations, abdominal pain, nausea, vomiting, hematemesis, melena, hematochezia, jaundice, symptoms to suggest gallbladder disease, etc. She has not had dysuria or frequency. She has had no flank pain. Past medical history, family history and personal and social histories can all be found in her previous hospital records. She was just discharged recently. She is allergic to COMPAZINE and METOCLOPRAMIDE. She is on numerous medications, which have not changed since she was discharged. PHYSICAL EXAMINATION: Blood pressure is 114/77 with a temperature of 103 and pulse of 111. In general she appeared to be acutely ill. Skin was hot and dry. Head, ears, eyes, nose, mouth, and throat were normal. Chest is clear to auscultation. Cardiac exam demonstrates sinus tachycardia. Abdomen is soft and nontender. Extremities are normal. Neurologically, she is intact. She is admitted to the hospital with diagnoses: 1. Septicemia. 2. Urinary tract infection. 3. Gastroparesis. PLAN: 1. Bed rest. 2. IV fluids. 3. Urinary and blood cultures. 4. IV antibiotics. 5. Consult with Infectious Disease. MMODL / IJN: [id number] /
[2019-09-03] MEDS: diphenhydrAMINE 50 MG/ML 1 ML VIAL IVP PRN ×2 (00:14→12:28)
[2019-09-03] MEDS: HYDROmorphone 1 MG/ML 1 ML SYRINGE IVP PRN ×7 (00:15→22:12)
[2019-09-03] MEDS: SODIUM CHLORIDE 0.9% 1,000 ML IV SCH ×3 (05:25→20:22)
[2019-09-03] MEDS: THYROID, PORK 30 MG TAB PO SCH (06:10)
[2019-09-03] MEDS: CEFEPIME 2 GM in SODIUM CHLORIDE 0.9% 100 ML IVPB SCH ×2 (06:10→17:26)
[2019-09-03 06:48] LABS: African American GFR (CKD) >90 (>60 ml/min/1.73 sqM); Anion Gap 6 mmol/L; Blood Urea Nitrogen 6 mg/dL (7-17); Calcium 7.7 mg/dL (8.4-10.2); Carbon Dioxide 17 mmol/L (22-30); Chloride 113 mmol/L (98-107); Glucose 97 mg/dL (74-99); Non-African American GFR(CKD) >90 (>60 ml/min/1.73 sqM); Sodium 136 mmol/L (137-145)
[2019-09-03 06:54] LABS: Magnesium 1.9 mg/dL (1.6-2.3); Phosphorus 2.7 mg/dL (2.5-4.5)
[2019-09-03] MEDS: TOPIRAMATE 25 MG TAB PO SCH ×2 (08:54→20:22)
[2019-09-03] MEDS: MONTELUKAST 5 MG CHEWABLE PO SCH (08:54)
[2019-09-03] MEDS: PANTOPRAZOLE 40 MG TABLET PO SCH ×2 (08:54→17:25)
[2019-09-03] MEDS ORDERED: LIDOCAINE 1% INJ 10MG/ML (20 ML MDV) SQ ONE (10:36)
[2019-09-03] MEDS: PRUCALOPRIDE SUCCINATE 2 MG PO SCH (11:01)
[2019-09-03] MEDS: [UNRECOGNIZED DRUG - OTHER] PO SCH ×2 (11:01→17:28)
[2019-09-03] MEDS: PATIENT'S OWN MED (Linaclotide [Linzess] 290 MCG) PO SCH (11:01)
[2019-09-03 11:46] LABS: Basophils % (A) 1 %; Eosinophils # (A) 0.1 k/uL (0-0.7); Eosinophils % (A) 3 %; HCT 36.5 % (34.0-46.0); HGB 11.3 gm/dL (11.4-16.0); Hypochromasia Moderate; Lymphocytes # (A) 0.8 k/uL (1.0-4.8); Lymphocytes % (A) 20 %; MCH 27.4 pg (25.0-35.0); MCHC 31.1 g/dL (31.0-37.0); Mean Platelet Volume 8.4; Monocytes # (A) 0.4 k/uL (0-1.0); Monocytes % (A) 9 %; Neutrophils # (A) 2.5 k/uL (1.3-7.7); Neutrophils % (A) 64 %; Platelet Count 155 k/uL (150-450); RBC 4.14 m/uL (3.80-5.40); RDW 13.8 % (11.5-15.5); WBC 3.9 k/uL (3.8-10.6)
[2019-09-03 11:51] LABS: MCV 88.1 fL (80.0-100.0)
--- NOTE | 2019-09-03 11:58 | IR ---
PICC LINE PLACEMENT: HISTORY: Infection requiring long-term antibiotic therapy PROCEDURE: Ultrasound and fluoroscopic guidance of PICC line placement. COMPLICATIONS: None ANESTHESIA: 1. 1% Lidocaine locally. FINDINGS/TECHNIQUE: The procedure was explained to the patient. The risks, complications, benefits and alternatives were discussed and any questions were answered. Informed consent was obtained. The patient was placed supine on the fluoroscopic table and prepped and draped in the usual sterile fash ion. Utilizing a 21 gauge needle and sonographic and fluoroscopic guidance, access in the right bas ilic vein was achieved and there is placement of a 0.018 guidewire. The vein is patent. A 4-F sheat h was placed over the guidewire. The guidewire and dilator were removed and a 4-F. PICC line was karen shanita through the sheath with the tip at the level of the SVC. The sheath was removed, the catheter wa s flushed and sutured into position. The patient was stable throughout the procedure and remained st able upon discharge from the Department of Radiology. The vein puncture was patent under ultrasound. A santos scale image was obtained to document patency of the vein punctured. All elements of the maximal barrier technique were utilized. FLUOROSCOPY TIME: 0.4 minutes and one image submitted IMPRESSION: Successful PICC line placement under ultrasound and fluoroscopic guidance.
--- NOTE | 2019-09-03 12:13 | CDI ---
Documentation Clarification Form Date: 09/03/2019 11:59:41 AM From: Jocelyne AguilarAmosURBANO, CCDS Admit Date: 09/02/2019 04:05:00 AM Patient Name: Maribel Johansen Visit Number: [id number] Discharge Date: ATTENTION: The Clinical Documentation Specialists (CDI) and [facility] Coding Staff appreciate your assistance in clarifying documentation. Please respond to the clarification below the line at the bottom and electronically sign. The CDI & [facility] Coding staff will review the response and follow-up if needed. Please note: Queries are made part of the Legal Health Record. If you have any questions, please contact the author of this message via ITS. Dr. Wong Adame: Coding guidelines do not allow coding professionals to code based on laboratory results; therefore, your input is requested. The COVID-19 test obtained on 09/02/2019 was reported as Negative on 09/02/2019. Per the 09/01 History & Physical: "This is another admission for this 39-year-old female. She just left the hospital after being treated for cellulitis and maceration of the abdominal wall around her jejunostomy tube. She went home and did well for a day or so and then suddenly developed chills and fever and came to emergency room with a temperature of 103. Abdominal wall appeared to be normal. The urine did look infected and it was felt that this was likely the origin." Patient history/risk factors: Gastroparesis, Chronic abdominal pain, J tube for feedings, Medi-Port left side, UTI, DVT, GERD, PE, Hypothyroid, Pancreatitis, Chronic anemia, Migraines. Clinical Indicators: Presented to the ED 09/01 with fever & chills, left ear pain, recent discharge after treatment for abdominal wound near J tube, Nausea & vomiting. Diagnosed with Sepsis & Left Otitis Media. CXR 09/01: Increased lung markings compared to old exam without pulmonary consolidation. Vitals signs on admission: T 102.6^, P 131^, R 20-26^, BP 100/64, PO 98 RA LAB 09/01: WBC 7.0, Na 132*, Creatinine 1.05^, Glucose 73*, AST 113^, ALT 169^, Alk Phos 279^, TSH 0.253*. UA: cloudy, 3+ ketones, Mod blood, large esterase. Treatment: IV Rocephin, IV fluid 1,000 mls @ 999 mls/hr x2, IV fluid 1,00 mls @ 130 mls/hr, IV Benadryl, IV Ativan, IV Ibuprofen. Infectious Disease Consult. In order to capture the severity of condition, please clarify the COVID-19 status: COVID-19 ruled out False negative, treating for COVID-19 o based on these clinical indicators: Other, please specify: (Last Form Revision: June 2019) MTDD
[2019-09-03] MEDS: ENOXAPARIN 80 MG/0.8 ML SYRINGE SQ SCH ×2 (14:34→20:22)
[2019-09-03 15:57] LABS: Hepatitis A Antibody IgM Non-Reactive (Non-Reactive); Hepatitis B Core IgM Non-Reactive (Non-Reactive); Hepatitis B Surface Antigen Non-Reactive (Non-Reactive); Hepatitis C IgG Antibody Non-Reactive (Non-Reactive)
--- NOTE | 2019-09-03 16:00 | XR ---
EXAMINATION TYPE: XR chest 2V DATE OF EXAM: 09/03/2019 COMPARISON: 09/02/2019 TECHNIQUE: PA and lateral views submitted. HISTORY: Fever FINDINGS: The lungs are clear and there is no pneumothorax, pleural effusion, or focal pneumonia. Mediport ca theter seen. No overt failure. Heart size normal. A PICC line noted. IMPRESSION: 1. No acute process.
[2019-09-03] MEDS ORDERED: 1: MVI, ADULT NO.4 WITH VIT K 10 ML, TRACE (CONC-1ML/DOSE) 1 ML in AMINO ACID 5%-D15W+LY IV SCH ×3 (16:01)
--- NOTE | 2019-09-03 16:55 | PN ---
PROGRESS NOTE CHIEF COMPLAINT: FUO. HISTORY OF PRESENT ILLNESS: This lady is still running low-grade temperatures. She does not have a cough. She has no urinary complaints. She is having no abdominal pain, chest pain, etc. PHYSICAL EXAM: Temperature is still elevated around 100. Head, ears, eyes, nose, mouth, and throat were normal and the chest is clear. The cardiac exam is normal. The abdomen is soft and nontender. The jejunostomy site looks normal. Extremities are normal. IMPRESSION: 1. Fever, undetermined origin. 2. ? urinary tract infection. 3. Gastroparesis. 4. Intractable abdominal pain and vomiting. PLAN: 1. Await culture reports. 2. Continue with IV fluids and antibiotics. 3. Address any further recommendations from Infectious Disease. MMODL / IJN: [id number] /
[2019-09-03] MEDS: FAT EMULSION 20% 250 ML in EMPTY BAG 1 BAG IV SCH (17:31)
[2019-09-03] MEDS: PROMETHAZINE INJ 12.5 MG in SODIUM CHLORIDE 0.9% 50 ML IVPB PRN (18:52)
[2019-09-03] MEDS: 1: MVI, ADULT NO.4 WITH VIT K 10 ML, TRACE (CONC-1ML/DOSE) 1 ML in AMINO ACID 5%-D15W+LY IV SCH ×3 (22:12)
--- NOTE | 2019-09-03 22:56 | PN ---
PROGRESS NOTE DATE OF SERVICE: 09/03/2019 REASON FOR FOLLOWUP: Sepsis with Gram-negative bacteremia. INTERVAL HISTORY: The patient's overall fever pattern has improved, with a T-max of 100.9 today. The patient is feeling weak and lethargic. No chest pain, shortness of breath or cough. No abdominal pain or diarrhea. PHYSICAL EXAMINATION: Blood pressure 119/76, pulse of 81, temperature 98.9. She is 100% on room air. General description is a middle-aged female lying in bed in no distress. RESPIRATORY SYSTEM: Unlabored breathing. Clear to auscultation anteriorly. HEART: S1, S2. Regular rate and rhythm. ABDOMEN: Soft. No tenderness. LABS: Hepatitis panel is negative. Hemoglobin 11.3, white count 3.9, BUN of 6, creatinine 0.70. Blood culture with Gram-negative bacilli. DIAGNOSTIC IMPRESSION AND PLAN: Patient with a fever with evidence of Gram-negative bacteremia, concern for abdominal source, though ultrasound did not show any abnormality of the liver or the kidneys. We are waiting for the final ID and sensitivity on this Gram-negative. We will keep the patient on cefepime, with which the patient seems to have clinically responded. Continue with supportive care. MMODL / IJN: [id number] /
[2019-09-04] MEDS: HYDROmorphone 1 MG/ML 1 ML SYRINGE IVP PRN ×6 (02:17→21:17)
[2019-09-04] MEDS: diphenhydrAMINE 50 MG/ML 1 ML VIAL IVP PRN ×2 (02:17→16:49)
[2019-09-04] MEDS ORDERED: THYROID, PORK 30 MG TAB PO SCH (06:30)
[2019-09-04 06:41] LABS: African American GFR (CKD) >90 (>60 ml/min/1.73 sqM); Anion Gap 5 mmol/L; Blood Urea Nitrogen 7 mg/dL (7-17); Calcium 8.2 mg/dL (8.4-10.2); Carbon Dioxide 18 mmol/L (22-30); Chloride 116 mmol/L (98-107); Glucose 134 mg/dL (74-99); Non-African American GFR(CKD) >90 (>60 ml/min/1.73 sqM); Phosphorus 2.8 mg/dL (2.5-4.5); Potassium 4.1 mmol/L (3.5-5.1); Sodium 139 mmol/L (137-145)
[2019-09-04] MEDS: SODIUM CHLORIDE 0.9% 1,000 ML IV SCH ×3 (06:44→21:20)
[2019-09-04] MEDS: CEFEPIME 2 GM in SODIUM CHLORIDE 0.9% 100 ML IVPB SCH ×2 (06:44→17:30)
[2019-09-04] MEDS: THYROID, PORK 30 MG TAB PO SCH (06:44)
[2019-09-04] MEDS: PANTOPRAZOLE 40 MG TABLET PO SCH ×2 (06:59→16:49)
[2019-09-04] MEDS: [UNRECOGNIZED DRUG - OTHER] PO SCH ×2 (06:59→16:48)
--- NOTE | 2019-09-04 08:38 | CDI ---
Documentation Clarification Form Date: 09/04/2019 08:27:36 AM From: Jocelyne AguilarAmosURBANO anguiano, CCDS Admit Date: 09/02/2019 04:05:00 AM Patient Name: Maribel Johansen Visit Number: [id number] Discharge Date: ATTENTION: The Clinical Documentation Specialists (CDI) and [facility] Coding Staff appreciate your assistance in clarifying documentation. Please respond to the clarification below the line at the bottom and electronically sign. The CDI & [facility] Coding staff will review the response and follow-up if needed. Please note: Queries are made part of the Legal Health Record. If you have any questions, please contact the author of this message via ITS. Dr. Wong Adame: Per the 09/01 History & Physical: "This is another admission for this 39-year-old female. She just left the hospital after being treated for cellulitis and maceration of the abdominal wall around her jejunostomy tube. She went home and did well for a day or so and then suddenly developed chills and fever and came to emergency room with a temperature of 103. Abdominal wall appeared to be normal. The urine did look infected and it was felt that this was likely the origin." Patient history/risk factors: Gastroparesis, Chronic abdominal pain, J tube for feedings, Medi-Port left side, UTI, DVT, GERD, PE, Pancreatitis, Chronic anemia, Sinus problems & Migraines. Clinical Indicators: Presented to the ED 09/01 with fever & chills, left ear pain, Nausea & vomiting. Diagnosed with Sepsis & Left Otitis Media. Vitals signs on admission: T 102.6^, P 131^, R 20-26^, BP 100/64, PO 98 RA LAB 09/01: WBC (7.0), Na 132*, Creatinine 1.05^, Glucose 73*, AST 113^, ALT 169^ Lactic Acid: (1.2). COVID-19 negative on 09/01. UA: cloudy, 3+ ketones, Mod blood, large esterase. CXR 09/01: Increased lung markings compared to old exam without pulmonary consolidation. Treatment: IV Rocephin, IV Cefepime, IV fluid 1,000 mls @ 999 mls/hr x2, IV fluid 1,00 mls @ 130 mls/hr, IV Benadryl, IV Ativan, IV Ibuprofen. Infectious Disease Consult: Fever with evidence of gram negative bacteremia, concern for abdominal source with no abnormality on US. In your professional opinion, please clarify if these findings signify one of the following conditions, whether the condition is POA, and cause, if known: Sepsis ruled out Sepsis, please specify cause if known. Other, please specify Unable to determine Present on Admission: Yes or No Identify the (suspected) organism (Last Revision: July 2017) NEIDAD
[2019-09-04] MEDS: 1: MVI, ADULT NO.4 WITH VIT K 10 ML, TRACE (CONC-1ML/DOSE) 1 ML in AMINO ACID 5%-D15W+LY IV SCH ×6 (09:38→21:32)
[2019-09-04] MEDS: MONTELUKAST 5 MG CHEWABLE PO SCH (09:39)
[2019-09-04] MEDS: TOPIRAMATE 25 MG TAB PO SCH ×2 (09:39→21:16)
[2019-09-04] MEDS: PATIENT'S OWN MED (Linaclotide [Linzess] 290 MCG) PO SCH (09:43)
[2019-09-04] MEDS: PRUCALOPRIDE SUCCINATE 2 MG PO SCH (09:43)
[2019-09-04] MEDS: ENOXAPARIN 80 MG/0.8 ML SYRINGE SQ SCH ×2 (09:44→21:17)
--- NOTE | 2019-09-04 11:56 | MISC ---
MISCELLANOUS REPORT QUERY: COVID ruled out. Sepsis ruled out. MMODL / IJN: [id number] /
[2019-09-04] MEDS: ONDANSETRON 4 MG/2 ML VIAL IVP PRN (12:58)
[2019-09-04 15:18] VITALS: BMI 31.8
--- NOTE | 2019-09-04 15:53 | PN ---
PROGRESS NOTE DATE OF SERVICE: 09/04/2019 REASON FOR FOLLOWUP: Gram-negative bacteremia. INTERVAL HISTORY: The patient is currently afebrile. The patient is breathing comfortably. Feeling slightly better today. No chest pain or cough. No abdominal pain or diarrhea. PHYSICAL EXAMINATION: Blood pressure is 101/56, pulse of 87. Temperature is 97.3. She is 98% on room air. General description is a middle-aged female up in the bed in no distress. RESPIRATORY SYSTEM: Unlabored breathing. Clear to auscultation anteriorly. HEART: S1, S2. Regular rate and rhythm. ABDOMEN: Soft. No tenderness. LABS: Hemoglobin is 11.3, white count 3.9, creatinine 0.57. Blood culture [place]. Blood culture repeat has been negative so far. DIAGNOSTIC IMPRESSION AND PLAN: Patient with sepsis with Gram-negative bacteremia with a question of possible MediPort infection, as she does not have any other clinical focus of infection. Organism is sensitive. Keep the patient on cefepime 2 grams q.12 and monitor clinical course closely. Continue with supportive care. MMODL / IJN: [id number] /
[2019-09-04] MEDS: FAT EMULSION 20% 250 ML in EMPTY BAG 1 BAG IV SCH (17:29)
[2019-09-05 00:11] VITALS: RESP 18
[2019-09-05] MEDS: ONDANSETRON 4 MG/2 ML VIAL IVP PRN ×2 (00:14→11:48)
[2019-09-05] MEDS: HYDROmorphone 1 MG/ML 1 ML SYRINGE IVP PRN ×5 (00:15→15:53)
[2019-09-05] MEDS: SODIUM CHLORIDE 0.9% 1,000 ML IV SCH (05:26)
[2019-09-05] MEDS: THYROID, PORK 30 MG TAB PO SCH (06:20)
[2019-09-05] MEDS: 1: MVI, ADULT NO.4 WITH VIT K 10 ML, TRACE (CONC-1ML/DOSE) 1 ML in AMINO ACID 5%-D15W+LY IV SCH ×6 (06:20→17:56)
[2019-09-05] MEDS: [UNRECOGNIZED DRUG - OTHER] PO SCH ×2 (06:21→17:20)
[2019-09-05] MEDS: PANTOPRAZOLE 40 MG TABLET PO SCH ×2 (06:21→17:18)
[2019-09-05] MEDS: CEFEPIME 2 GM in SODIUM CHLORIDE 0.9% 100 ML IVPB SCH ×2 (06:21→17:18)
[2019-09-05] MEDS: diphenhydrAMINE 50 MG/ML 1 ML VIAL IVP PRN (06:32)
[2019-09-05 07:38] LABS: African American GFR (CKD) >90 (>60 ml/min/1.73 sqM); Anion Gap 6 mmol/L; Blood Urea Nitrogen 7 mg/dL (7-17); Calcium 8.1 mg/dL (8.4-10.2); Carbon Dioxide 20 mmol/L (22-30); Chloride 114 mmol/L (98-107); Glucose 99 mg/dL (74-99); Magnesium 1.9 mg/dL (1.6-2.3); Non-African American GFR(CKD) >90 (>60 ml/min/1.73 sqM); Phosphorus 3.5 mg/dL (2.5-4.5); Potassium 4.1 mmol/L (3.5-5.1); Sodium 140 mmol/L (137-145)
[2019-09-05] MEDS: ENOXAPARIN 80 MG/0.8 ML SYRINGE SQ SCH (08:44)
[2019-09-05] MEDS: MONTELUKAST 5 MG CHEWABLE PO SCH (08:45)
[2019-09-05] MEDS: TOPIRAMATE 25 MG TAB PO SCH (08:45)
[2019-09-05] MEDS: PATIENT'S OWN MED (Linaclotide [Linzess] 290 MCG) PO SCH (08:46)
[2019-09-05] MEDS: PRUCALOPRIDE SUCCINATE 2 MG PO SCH (08:46)
[2019-09-05 10:26] LABS: Basophils % (A) 1 %; Eosinophils # (A) 0.4 k/uL (0-0.7); Eosinophils % (A) 7 %; HCT 32.7 % (34.0-46.0); HGB 10.7 gm/dL (11.4-16.0); Hypochromasia Slight; Lymphocytes # (A) 2.6 k/uL (1.0-4.8); Lymphocytes % (A) 45 %; MCH 28.6 pg (25.0-35.0); MCHC 32.8 g/dL (31.0-37.0); MCV 87.2 fL (80.0-100.0); Mean Platelet Volume 9.7; Monocytes # (A) 0.4 k/uL (0-1.0); Monocytes % (A) 7 %; Neutrophils # (A) 2.2 k/uL (1.3-7.7); Neutrophils % (A) 38 %; Platelet Count 196 k/uL (150-450); RBC 3.75 m/uL (3.80-5.40); RDW 14.1 % (11.5-15.5); WBC 5.7 k/uL (3.8-10.6)
--- NOTE | 2019-09-05 16:04 | PN ---
PROGRESS NOTE DATE OF SERVICE: 09/05/2019 REASON FOR FOLLOW UP: Gram-negative bacteremia. INTERVAL HISTORY: The patient is currently afebrile. Patient is breathing comfortably. The patient denies having any chest pain, shortness of breath or cough. No further nausea, vomiting, abdominal pain. No pain, swelling or redness at the MediPort site. PHYSICAL EXAMINATION: Blood pressure 118/68 with a pulse of 74, temperature 98.6. She is 98% on room air. General description is a middle-aged female, up in the chair in no distress. RESPIRATORY SYSTEM: Unlabored breathing, clear to auscultation anteriorly. HEART: S1, S2. Regular rate and rhythm. ABDOMEN: Soft, no tenderness. LABS: Hemoglobin is 10.7, white count 5.7, BUN of 7, creatinine 0.56. Blood culture repeat on 09/01 has been negative. DIAGNOSTIC IMPRESSION AND PLAN: Patient with left PE and HERNANDEZ agglomerans bacteremia with question of MediPort infection as we do not have any obvious focus of infection, urine was negative, abdominal film was negative, chest x-ray negative. The patient has cleared her bacteremia very quickly, making it to be less likely a deep infection. We will consider 12 more days of IV cefepime 2 g q.12 hours. Also advised checking a set of blood cultures from the port a week after finishing antibiotic therapy to make sure no evidence of any recurrence of bacteremia which is negative. No further workup. If positive, she will need possible removal of the port. This has been explained in detail to the patient. MMODL / IJN: [id number] /
[2019-09-05 16:06] VITALS: BP 139/79; PULSE 70; TEMP 98.8
--- NOTE | 2019-09-05 16:46 | PN ---
PROGRESS NOTE DATE OF SERVICE: 09/04/2019 CHIEF COMPLAINT: Sepsis; source unknown. HISTORY OF PRESENT ILLNESS: This lady is doing fairly well. She has not been febrile over the last 24 hours. She is concerned because her " noted that she had a low white count on the lab recently." She is not having any current chest pain, shortness of breath, abdominal pain, urinary complaints, etc. PHYSICAL EXAMINATION: Head, ears, eyes, nose, mouth and throat are normal. Chest is clear. Cardiac exam is normal. Abdomen is soft. IMPRESSION: 1. Sepsis; source unknown. 2. Possibly infected port. 3. Possible urinary tract infection. 4. Possible leukopenia. PLAN: 1. Repeat CBC. 2. Continue with IV fluids and antibiotics and wait for discharge plan from Infectious Disease. MMODL / IJN: [id number] /
--- NOTE | 2019-09-05 16:49 | PN ---
PROGRESS NOTE DATE OF SERVICE: 09/05/2019 CHIEF COMPLAINT: Sepsis. HISTORY OF PRESENT ILLNESS: This lady is doing well. She has not had a fever for several days. She is still complaining of chronic abdominal pain and nausea. We are waiting for further recommendations from Infectious Disease. There was a suggestion that this may be coming from her port, and if so, she would like to have it removed at [facility]. PHYSICAL EXAMINATION: She is afebrile. Vital signs are normal. Chest is clear. Cardiac exam is normal. The abdomen is soft and nontender. IMPRESSION: 1. Sepsis; source unknown. 2. Possible infected port. 3. Gastroparesis. 4. Intractable abdominal pain. 5. Intractable vomiting. PLAN: Await decision from Infectious Disease as to how long she will have to be on IV antibiotics and when she can go home. MMODL / IJN: [id number] /
--- NOTE | 2019-09-05 17:01 | DS ---
DISCHARGE SUMMARY DATE OF DISCHARGE: 09/05/2019 CHIEF COMPLAINT: FUO and sepsis. HISTORY OF PRESENT ILLNESS AND PHYSICAL EXAMINATION: Details of this lady's history and physical can be found in the initial workup. LABORATORY STUDIES: While she was in the hospital she had laboratory studies, details of which can be found in the laboratory section of her chart. COURSE IN THE HOSPITAL: After admission she was placed on bedrest, started intravenous fluids, and appropriate cultures were obtained. Initially it was felt that this may have been due to a urinary tract infection, but this was not completely clear. There was also a possibility of an infected port in her right anterior chest. She was seen and followed by Infectious Disease. Her temperature came down and she was improving. On September 04, Infectious Disease felt that she could be discharged on IV antibiotics, and it was arranged for her to receive them in the home care setting. She will go home on her usual activities and medications as well as her tube feeding formula, and she will follow up both with me and Infectious Disease. FINAL DIAGNOSES: 1. Septicemia; source unknown. 2. Gastroparesis. 3. Intractable abdominal pain. 4. Intractable vomiting. OPERATIONS: None. CONSULTATION: Infectious Disease. She is improved. MMODL / IJN: [id number] /
[2019-09-05] MEDS: FAT EMULSION 20% 250 ML in EMPTY BAG 1 BAG IV SCH (17:56)
== END 2019-09-05 18:10 | disposition home health service (06) | DRG 315 ==
LOC: EC 22:20 → 3SCARD 09-02 04:05
PROVIDERS: ADMIT Family Medicine; ATTEND Family Medicine
PROC: 3E0436Z Introduction of Nutritional Substance into Central Vein, Percutaneous Approach (ICD-10-PCS; 2019-09-02)
PROC: 02HV33Z Insertion of Infusion Device into Superior Vena Cava, Percutaneous Approach (ICD-10-PCS; principal; 2019-09-03 07:30)
DX: T80.211A Bloodstream infection due to central venous catheter, initial encounter (principal); N39.0 Urinary tract infection, site not specified; R78.81 Bacteremia; Z20.828 Contact with and (suspected) exposure to other viral communicable diseases; Z93.4 Other artificial openings of gastrointestinal tract status; K31.84 Gastroparesis; G89.29 Other chronic pain; K21.9 Gastro-esophageal reflux disease without esophagitis; G43.909 Migraine, unspecified, not intractable, without status migrainosus; F32.9 Major depressive disorder, single episode, unspecified; H66.92 Otitis media, unspecified, left ear; R00.0 Tachycardia, unspecified; D72.810 Lymphocytopenia; E03.9 Hypothyroidism, unspecified; D64.9 Anemia, unspecified; R74.8 Abnormal levels of other serum enzymes; Z79.899 Other long term (current) drug therapy; Z87.440 Personal history of urinary (tract) infections; Z86.711 Personal history of pulmonary embolism; Z86.718 Personal history of other venous thrombosis and embolism; Z87.19 Personal history of other diseases of the digestive system; Z90.49 Acquired absence of other specified parts of digestive tract; Z98.890 Other specified postprocedural states; Z95.828 Presence of other vascular implants and grafts; Z88.8 Allergy status to other drugs, medicaments and biological substances; Z82.49 Family history of ischemic heart disease and other diseases of the circulatory system
CPT/HCPCS: 36415; 36573; 71046; 76700; 80048; 80053; 80074; 81001; 81025; 82330; 83605; 83735; 84100; 84439; 84443; 84478; 84484; 85025; 87040; 87077; 87086; 87186; 93005; 96361; 96365; 96367; 96375; 99285

== ENCOUNTER 2019-10-04 11:04 | Emergency (ER) | payer BC ==
[2019-10-04] MEDS ORDERED: ONDANSETRON 4 MG/2 ML VIAL IVP STA (11:42)
[2019-10-04] MEDS ORDERED: MORPHINE SULFATE 4 MG/ML SYRINGE IV STA (11:42)
[2019-10-04] MEDS ORDERED: SODIUM CHLORIDE 0.9% 1,000 ML IV STA (11:42)
[2019-10-04 11:59] LABS: Basophils # (A) 0.1 k/uL (0-0.2); Basophils % (A) 1 %; Eosinophils # (A) 0.1 k/uL (0-0.7); Eosinophils % (A) 1 %; HCT 39.7 % (34.0-46.0); HGB 12.9 gm/dL (11.4-16.0); Hypochromasia Slight; Lymphocytes # (A) 1.6 k/uL (1.0-4.8); Lymphocytes % (A) 22 %; MCHC 32.6 g/dL (31.0-37.0); MCV 82.8 fL (80.0-100.0); Mean Platelet Volume 7.4; Monocytes # (A) 0.3 k/uL (0-1.0); Monocytes % (A) 4 %; Neutrophils # (A) 5.1 k/uL (1.3-7.7); Neutrophils % (A) 71 %; Platelet Count 388 k/uL (150-450); RDW 13.7 % (11.5-15.5); WBC 7.2 k/uL (3.8-10.6)
[2019-10-04 12:08] LABS: ALT 11 U/L (4-34); AST 15 U/L (14-36); African American GFR (CKD) >90 (>60 ml/min/1.73 sqM); Alkaline Phosphatase 98 U/L (38-126); Anion Gap 6 mmol/L; Blood Urea Nitrogen 9 mg/dL (7-17); Calcium 9.4 mg/dL (8.4-10.2); Carbon Dioxide 21 mmol/L (22-30); Chloride 113 mmol/L (98-107); Glucose 99 mg/dL (74-99); Non-African American GFR(CKD) >90 (>60 ml/min/1.73 sqM); Potassium 3.9 mmol/L (3.5-5.1); Sodium 140 mmol/L (137-145); Total Bilirubin 0.3 mg/dL (0.2-1.3); Total Protein 6.7 g/dL (6.3-8.2)
--- NOTE | 2019-10-04 12:23 | XR ---
EXAMINATION TYPE: XR KUB DATE OF EXAM: 10/04/2019 COMPARISON: NONE HISTORY: Pain TECHNIQUE: Single supine KUB image of the abdomen is obtained FINDINGS: Small bowel demonstrates no evidence for dilatation or air fluid levels. Gas and fecal material is seen in non-distended colon. No convincing evidence for pneumoperitoneum. No unusual calcifications. The lung bases are clear. The osseous structures are intact. Feeding tube noted. IUD noted to be in place. IMPRESSION: 1. Overall nonobstructive bowel gas pattern.
[2019-10-04] MEDS ORDERED: HYDROmorphone 0.5 MG/0.5 ML SYRINGE IVP STA (12:44)
[2019-10-04 12:55] LABS: Appearance,Urine Clear (Clear); Bacteria,Urine Rare /hpf; Bilirubin,Urine Negative (Negative); Blood,Urine Small (Negative); Color,Urine Yellow; Glucose,Urine (UA) Negative (Negative); Hyaline Casts,Urine 1 /lpf (0-2); Ketones,Urine Negative (Negative); Leukocyte Esterase,Urine Small (Negative); Mucus,Urine Few /hpf; Nitrite,Urine Negative (Negative); PH, Urine 5.5 (5.0-8.0); Protein,Urine Negative (Negative); RBC,Urine 4 /hpf (0-5); Specific Gravity,Urine 1.026 (1.001-1.035); Squamous Epithelial Cell,Urine 1 /hpf (0-4); Urobilinogen,Urine <2.0 mg/dL (<2.0); WBC,Urine 4 /hpf (0-5)
--- NOTE | 2019-10-04 13:41 | ED ---
General Adult HPI - General Chief complaint: Abdominal Pain Stated complaint: Abd pain Time Seen by Provider: 10/04/19 11:33 Source: patient, RN notes reviewed, old records reviewed Mode of arrival: ambulatory Limitations: no limitations - History of Present Illness Initial comments: 39-year-old female patient presents to ED with chief complaint of suprapubic abdominal pain. Patient is gastroparesis has a PEG tube and does have chronic abdominal pain. She reports she has chronic nausea and vomiting. Patient was the last 2 days she has had some suprapubic pain with nausea and vomiting which is normal for her. Denies any other complaints. Denies a chance of being . Systemic: Pt denies fatigue, fever/chills, rash. Pt denies weakness, night sweats, weight loss. Neuro: Pt denies headache, visual disturbances, syncope or pre-syncope. HEENT: Pt denies ocular discharge or irritation, otalgia, rhinorrhea, pharyngitis or notable lymphadenopathy. Cardiopulmonary: Pt denies chest pain, SOB, heart palpitations, dyspnea on exert ion. Abdominal/GI: Pt denies diarrhea : Pt denies dysuria, burning w/ urination, frequency/urgency. Denies new onset urinary or bowel incontinence. MSK: Pt denies myalgia, loss of strength or function in extremities. Neuro: Pt denies new onset weakness, paresthesias. - Related Data Home Medications Medication Instructions Recorded Confirmed Montelukast Chew [Singulair] 10 mg PO DAILY 02/02/18 10/04/19 Topiramate [Trokendi Xr] 50 mg PO HS 07/18/18 10/04/19 Prucalopride Succinate [Motegrity] 2 mg PO DAILY 01/14/19 10/04/19 oxyCODONE HCL [oxyCODONE HCL (IR)] 10 mg PO Q8H PRN 04/20/19 10/04/19 Linaclotide [Linzess] 290 mcg PO DAILY 05/24/19 10/04/19 Tegaserod Hydrogen Maleate 6 mg PO AC-BID 05/24/19 10/04/19 [Zelnorm] Enoxaparin [Lovenox] 80 mg SQ Q12H 06/08/19 10/04/19 Phenergen 12.5 mg IV Q8HR PRN 06/08/19 10/04/19 Ondansetron 4mg 4 mg IV Q8H PRN 06/23/19 10/04/19 Dicyclomine [Bentyl] 10 mg PO Q8H PRN 08/08/19 10/04/19 Lansoprazole 30 mg PO BID 08/27/19 10/04/19 Levothyroxine Sodium [Synthroid] 100 mcg PO DAILY 10/04/19 10/04/19 Previous Rx's Medication Instructions Recorded Scopolamine 1.5MG/72Hr Patch 1 patch TRANSDERM Q72H #10 patch 07/31/18 [TransDerm Scop] Allergies Allergy/AdvReac Type Severity Reaction Status Date / Time metoclopramide [From Reglan] AdvReac Mild jittery Verified 10/04/19 12:49 prochlorperazine AdvReac Mild JITTERY Verified 10/04/19 12:49 [From Compazine] Review of Systems ROS Statement: Those systems with pertinent positive or pertinent negative responses have been documented in the HPI. ROS Other: All systems not noted in ROS Statement are negative. Past Medical History Past Medical History: Deep Vein Thrombosis (DVT), GERD/Reflux, Pulmonary Embolus (PE), Thyroid Disorder Additional Past Medical History / Comment(s): Other hx:Idiopathic gastroparesis, takes little in orally-has J tube for feedings-currently on hold and receiving TPN, chronic abdominal pain, R pulmonary embolism -2017, dvt R upper extremity 2018, pancreatitis once in 2018-thought stone somewhere, hypothyroid, chronic anemia, sinus problems, migraine. 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 J tube replaced-last replace in November or December 2018, piccs, mediport insertion Past Anesthesia/Blood Transfusion Reactions: No Reported Reaction Past Psychological History: Depression Smoking Status: Never smoker Past Alcohol Use History: None Reported Past Drug Use History: None Reported - Past Family History Father Family Medical History: Hypertension Additional Family Medical History / Comment(s): Father is 57 yrs old.. Mother Family Medical History: No Reported History Additional Family Medical History / Comment(s): Mother is 57yrs old. General Exam - General Exam Comments Initial Comments: Constitutional: NAD, AOX3, Pt has pleasant affect. HEENT: NC/AT, trachea midline, neck supple, no lymphadenopathy. Posterior pharynx non erythematous, without exudates. External ears appear normal, without discharge. Mucous membranes moist. Eyes PERRLA, EOM intact. There is no scleral icterus. No pallor noted. Cardiopulmonary: RRR, no murmurs, rubs or gallops, no JVD noted. Lungs CTAB in anterior and posterior mi. No peripheral edema. Abdominal exam: Abdomen soft and non-distended. Abdomen mildly tender to palpation suprapubic region. Site of PEG tube is not erythematous with no signs of infection. Bowel sounds active in LLQ. No hepatosplenomegaly. No ecchymosis Neuro: CN II-XII grossly intact. No nuchal rigidity. No raccon eyes, no mahoney sign, no hemotympanum. No cervical spinal tenderness. MSK: No posterior calf tenderness bilaterally, homans sign negative bilaterally. Posterior tibialis and radial pulse +2 bilaterally. Sensation intact in upper and lower extremities. Full active ROM in upper and lower extremities, 5/5 stregnth. Limitations: no limitations Course Vital Signs 10/04/19 10/04/19 10/04/19 11:16 11:49 12:34 Temperature 98.3 F 99.1 F Pulse Rate 98 74 66 Respiratory 18 18 16 Rate Blood Pressure 131/73 108/73 112/62 O2 Sat by Pulse 99 100 100 Oximetry Medical Decision Making - Medical Decision Making 39-year-old female patient with CVG presents with abdominal pain. Ongoing for 2 days. Patient will signs are stable, afebrile. Physical exam displayed mild suprapubic tenderness. No other areas of tenderness. Of investigations are unremarkable. UA is unremarkable. KUB displayed no acute process. Patient pain is improved. I did offer The Patient She Is Declining. Patient will follow-up with her primary care provider research software engineer and return here if she worsens. Case discussed with Dr. Finch. - Lab Data Result diagrams: 10/04/19 11:50 10/04/19 11:50 Lab Results 10/04/19 10/04/19 10/04/19 Range/Units 11:42 11:42 11:50 WBC 7.2 (3.8-10.6) k/uL RBC 4.80 (3.80-5.40) m/uL Hgb 12.9 (11.4-16.0) gm/dL Hct 39.7 (34.0-46.0) % MCV 82.8 (80.0-100.0) fL MCH 27.0 (25.0-35.0) pg MCHC 32.6 (31.0-37.0) g/dL RDW 13.7 (11.5-15.5) % Plt Count 388 (150-450) k/uL Neutrophils % 71 % Lymphocytes % 22 % Monocytes % 4 % Eosinophils % 1 % Basophils % 1 % Neutrophils # 5.1 (1.3-7.7) k/uL Lymphocytes # 1.6 (1.0-4.8) k/uL Monocytes # 0.3 (0-1.0) k/uL Eosinophils # 0.1 (0-0.7) k/uL Basophils # 0.1 (0-0.2) k/uL Hypochromasia Slight Sodium (137-145) mmol/L Potassium (3.5-5.1) mmol/L Chloride (98-107) mmol/L Carbon Dioxide (22-30) mmol/L Anion Gap mmol/L BUN (7-17) mg/dL Creatinine (0.52-1.04) mg/dL Est GFR (CKD-EPI)AfAm (>60 ml/min/1.73 sqM) Est GFR (CKD-EPI)NonAf (>60 ml/min/1.73 sqM) Glucose (74-99) mg/dL Plasma Lactic Acid Frank (0.7-2.0) mmol/L Calcium (8.4-10.2) mg/dL Total Bilirubin (0.2-1.3) mg/dL AST (14-36) U/L ALT (4-34) U/L Alkaline Phosphatase (38-126) U/L Total Protein (6.3-8.2) g/dL Albumin (3.5-5.0) g/dL Lipase (23-300) U/L Urine Color Yellow Urine Appearance Clear (Clear) Urine pH 5.5 (5.0-8.0) Ur Specific [place] 1.026 (1.001-1.035) Urine Protein Negative (Negative) Urine Glucose (UA) Negative (Negative) Urine Ketones Negative (Negative) Urine Blood Small H (Negative) Urine Nitrite Negative (Negative) Urine Bilirubin Negative (Negative) Urine Urobilinogen <2.0 (<2.0) mg/dL Ur Leukocyte Esterase Small H (Negative) Urine RBC 4 (0-5) /hpf Urine WBC 4 (0-5) /hpf Ur Squamous Epith Cells 1 (0-4) /hpf Urine Bacteria Rare H (None) /hpf Hyaline Casts 1 (0-2) /lpf Urine Mucus Few H (None) /hpf Urine HCG, Qual Not Detected (Not Detectd) 10/04/19 10/04/19 Range/Units 11:50 11:50 WBC (3.8-10.6) k/uL RBC (3.80-5.40) m/uL Hgb (11.4-16.0) gm/dL Hct (34.0-46.0) % MCV (80.0-100.0) fL MCH (25.0-35.0) pg MCHC (31.0-37.0) g/dL RDW (11.5-15.5) % Plt Count (150-450) k/uL Neutrophils % % Lymphocytes % % Monocytes % % Eosinophils % % Basophils % % Neutrophils # (1.3-7.7) k/uL Lymphocytes # (1.0-4.8) k/uL Monocytes # (0-1.0) k/uL Eosinophils # (0-0.7) k/uL Basophils # (0-0.2) k/uL Hypochromasia Sodium 140 (137-145) mmol/L Potassium 3.9 (3.5-5.1) mmol/L Chloride 113 H (98-107) mmol/L Carbon Dioxide 21 L (22-30) mmol/L Anion Gap 6 mmol/L BUN 9 (7-17) mg/dL Creatinine 0.72 (0.52-1.04) mg/dL Est GFR (CKD-EPI)AfAm >90 (>60 ml/min/1.73 sqM) Est GFR (CKD-EPI)NonAf >90 (>60 ml/min/1.73 sqM) Glucose 99 (74-99) mg/dL Plasma Lactic Acid Frank 0.7 (0.7-2.0) mmol/L Calcium 9.4 (8.4-10.2) mg/dL Total Bilirubin 0.3 (0.2-1.3) mg/dL AST 15 (14-36) U/L ALT 11 (4-34) U/L Alkaline Phosphatase 98 (38-126) U/L Total Protein 6.7 (6.3-8.2) g/dL Albumin 4.0 (3.5-5.0) g/dL Lipase 33 (23-300) U/L Urine Color Urine Appearance (Clear) Urine pH (5.0-8.0) Ur Specific [place] (1.001-1.035) Urine Protein (Negative) Urine Glucose (UA) (Negative) Urine Ketones (Negative) Urine Blood (Negative) Urine Nitrite (Negative) Urine Bilirubin (Negative) Urine Urobilinogen (<2.0) mg/dL Ur Leukocyte Esterase (Negative) Urine RBC (0-5) /hpf Urine WBC (0-5) /hpf Ur Squamous Epith Cells (0-4) /hpf Urine Bacteria (None) /hpf Hyaline Casts (0-2) /lpf Urine Mucus (None) /hpf Urine HCG, Qual (Not Detectd) Disposition Clinical Impression: Abdominal pain Disposition: HOME SELF-CARE Condition: Stable Instructions (If sedation given, give patient instructions): Abdominal Pain (ED) Additional Instructions: Follow-up with PCP and research software engineer tomorrow. Return to ER if condition worsens in any way. Is patient prescribed a controlled substance at d/c from ED?: No Referrals: Wong Adame MD [Primary Care Provider] - 1-2 days
[2019-10-04 14:05] VITALS: BP 114/83; PULSE 71; RESP 18; TEMP 97.6
== END 2019-10-04 14:05 | disposition home or self-care (01) ==
LOC: EC 11:04
DX: R10.30 Lower abdominal pain, unspecified (principal); R11.2 Nausea with vomiting, unspecified; K21.9 Gastro-esophageal reflux disease without esophagitis; G89.29 Other chronic pain; E03.9 Hypothyroidism, unspecified; F32.9 Major depressive disorder, single episode, unspecified; G43.909 Migraine, unspecified, not intractable, without status migrainosus; Z79.890 Hormone replacement therapy; Z79.899 Other long term (current) drug therapy; Z88.8 Allergy status to other drugs, medicaments and biological substances; Z90.49 Acquired absence of other specified parts of digestive tract; Z87.19 Personal history of other diseases of the digestive system; Z98.890 Other specified postprocedural states
CPT/HCPCS: 36415; 80053; 83605; 83690; 85025; 81001; 81025; 74018; 99284; 96374; 96375 ×2; 96361; J2270; J2405; J1170

== ENCOUNTER 2019-10-08 15:56 | Emergency (ER) | payer BC ==
[2019-10-08 16:08] VITALS: TEMP 98.3
[2019-10-08] MEDS ORDERED: HYDROmorphone 0.5 MG/0.5 ML SYRINGE IVP STA (16:31)
--- NOTE | 2019-10-08 16:33 | ED ---
General Adult HPI - General Chief complaint: Recheck/Abnormal Lab/Rx Stated complaint: poss blood clot in arm Time Seen by Provider: 10/08/19 16:10 Source: patient, RN notes reviewed Mode of arrival: ambulatory Limitations: no limitations - History of Present Illness Initial comments: 39-year-old female with a past medical history of DVT presents the emergency department for a chief complaint of right arm pain. Patient states that she started some aching pain in her right arm. States she is concerned she could have a DVT. Patient states she is on blood thinners for this. Patient just wants to make sure that she does not have a blood clot in the right arm around her PICC line.Patient has no other complaints at this time including shortness of breath, chest pain, abdominal pain, nausea or vomiting, headache, or visual changes. - Related Data Home Medications Medication Instructions Recorded Confirmed Montelukast Chew [Singulair] 10 mg PO DAILY 02/02/18 10/04/19 Topiramate [Trokendi Xr] 50 mg PO HS 07/18/18 10/04/19 Prucalopride Succinate [Motegrity] 2 mg PO DAILY 01/14/19 10/04/19 oxyCODONE HCL [oxyCODONE HCL (IR)] 10 mg PO Q8H PRN 04/20/19 10/04/19 Linaclotide [Linzess] 290 mcg PO DAILY 05/24/19 10/04/19 Tegaserod Hydrogen Maleate 6 mg PO AC-BID 05/24/19 10/04/19 [Zelnorm] Enoxaparin [Lovenox] 80 mg SQ Q12H 06/08/19 10/04/19 Phenergen 12.5 mg IV Q8HR PRN 06/08/19 10/04/19 Ondansetron 4mg 4 mg IV Q8H PRN 06/23/19 10/04/19 Dicyclomine [Bentyl] 10 mg PO Q8H PRN 08/08/19 10/04/19 Lansoprazole 30 mg PO BID 08/27/19 10/04/19 Levothyroxine Sodium [Synthroid] 100 mcg PO DAILY 10/04/19 10/04/19 Previous Rx's Medication Instructions Recorded Scopolamine 1.5MG/72Hr Patch 1 patch TRANSDERM Q72H #10 patch 07/31/18 [TransDerm Scop] Allergies Allergy/AdvReac Type Severity Reaction Status Date / Time metoclopramide [From Reglan] AdvReac Mild jittery Verified 10/08/19 16:05 prochlorperazine AdvReac Mild JITTERY Verified 10/08/19 16:05 [From Compazine] Review of Systems ROS Statement: Those systems with pertinent positive or pertinent negative responses have been documented in the HPI. ROS Other: All systems not noted in ROS Statement are negative. Past Medical History Past Medical History: Deep Vein Thrombosis (DVT), GERD/Reflux, Pulmonary Embolus (PE), Thyroid Disorder Additional Past Medical History / Comment(s): Other hx:Idiopathic gastroparesis, takes little in orally-has J tube for feedings-currently on hold and receiving TPN, chronic abdominal pain, R pulmonary embolism -2017, dvt R upper extremity 2018, pancreatitis once in 2017-thought stone somewhere, hypothyroid, chronic anemia, sinus problems, migraine. 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 J tube replaced-last replace in November or December 2018, piccs, mediport insertion Past Anesthesia/Blood Transfusion Reactions: No Reported Reaction Past Psychological History: Depression Smoking Status: Never smoker Past Alcohol Use History: None Reported Past Drug Use History: None Reported - Past Family History Father Family Medical History: Hypertension Additional Family Medical History / Comment(s): Father is 57 yrs old.. Mother Family Medical History: No Reported History Additional Family Medical History / Comment(s): Mother is 57yrs old. General Exam Limitations: no limitations General appearance: alert, in no apparent distress Head exam: Present: atraumatic, normocephalic, normal inspection Eye exam: Present: normal appearance, PERRL, EOMI. Absent: scleral icterus, conjunctival injection, periorbital swelling ENT exam: Present: normal exam, mucous membranes moist Neck exam: Present: normal inspection Respiratory exam: Present: normal lung sounds bilaterally. Absent: respiratory distress, wheezes, rales, rhonchi, stridor Cardiovascular Exam: Present: regular rate, normal rhythm, normal heart sounds. Absent: systolic murmur, diastolic murmur, rubs, gallop, clicks Extremities exam: Present: other (Radial pulse 2+ the right upper extremity. There is no edema or erythema of the right arm. Full range of motion of the right arm. PICC line site does not appear infected.) Course Vital Signs 10/08/19 16:06 Temperature 98.3 F Pulse Rate 98 Respiratory 16 Rate Blood Pressure 118/73 O2 Sat by Pulse 100 Oximetry Medical Decision Making - Medical Decision Making Right upper extremity ultrasound is negative for DVT. As discussed I do not see any signs of infection. Patient will follow-up with primary care and will return here for any worsening symptoms. Disposition Clinical Impression: Arm pain Disposition: HOME SELF-CARE Condition: Good Instructions (If sedation given, give patient instructions): Arm Pain (ED) Additional Instructions: Please follow-up with your doctor in one to 2 days. Return to the emergency room for any worsening symptoms. Is patient prescribed a controlled substance at d/c from ED?: No Referrals: Wong Adame MD [Primary Care Provider] - 1-2 days Time of Disposition: 17:34
--- NOTE | 2019-10-08 17:28 | US ---
EXAMINATION TYPE: US venous doppler duplex UE RT DATE OF EXAM: 10/08/2019 COMPARISON: us 03/29/2019 CLINICAL HISTORY: pain. History of DVT. Very difficult exam due to small vessels. Patient has PICC li ne SIDE PERFORMED: Right Right Arm: Negative for DVT as visualized Right IJV appears pulsatile IMPRESSION: 1. Right upper extremity ultrasound negative for deep venous thrombosis.
[2019-10-08 17:45] VITALS: BP 119/71; PULSE 83; RESP 17
== END 2019-10-08 17:54 | disposition home or self-care (01) ==
LOC: EC 15:56
DX: M79.601 Pain in right arm (principal); K21.9 Gastro-esophageal reflux disease without esophagitis; F32.9 Major depressive disorder, single episode, unspecified; E03.9 Hypothyroidism, unspecified; Z79.01 Long term (current) use of anticoagulants; Z79.899 Other long term (current) drug therapy; Z79.890 Hormone replacement therapy; Z88.8 Allergy status to other drugs, medicaments and biological substances; Z86.718 Personal history of other venous thrombosis and embolism; Z86.711 Personal history of pulmonary embolism
CPT/HCPCS: 93971; 99283; 96374; J1170

== ENCOUNTER 2019-10-10 14:22 | Inpatient (IN) | payer BC ==
--- NOTE | 2019-10-10 15:53 | ED ---
Extremity Problem HPI - General Source: patient Mode of arrival: ambulatory Limitations: no limitations <Enzo Mcduffie - Last Filed: 10/10/19 18:16> <Jian Vallejo - Last Filed: 10/10/19 20:50> - General Chief complaint: Extremity Problem,Nontraumatic Stated complaint: picc line problems Time Seen by Provider: 10/10/19 15:10 - History of Present Illness Initial comments: Patient is a 39-year-old female with history of DVT presenting to emergency Department with a chief complaint of a PICC line pain. Patient reports recently she had a PICC line placed at [facility]. Patient reports afterwards she developed pain in the region. Patient denies any erythema, edema or skin discoloration. Patient states she was in emergency department 2 days ago with the same chief complaint and had an ultrasound performed showing no signs of DVT. Patient states the pain continues to persist, the only alleviating factor is applying cold compress to the region. Reports and range of motion exacerbates the pain. Denies any night sweats or chills. Denies any shortness of breath or chest pain. States she is currently on Lovenox. (Enzo Mcduffie) - Related Data Home Medications Medication Instructions Recorded Confirmed Montelukast Chew [Singulair] 10 mg PO DAILY 02/02/18 10/10/19 Topiramate [Trokendi Xr] 50 mg PO HS 07/18/18 10/10/19 Prucalopride Succinate [Motegrity] 2 mg PO DAILY 01/14/19 10/10/19 oxyCODONE HCL [oxyCODONE HCL (IR)] 10 mg PO Q8H PRN 04/20/19 10/10/19 Linaclotide [Linzess] 290 mcg PO DAILY 05/24/19 10/10/19 Tegaserod Hydrogen Maleate 6 mg PO AC-BID 05/24/19 10/10/19 [Zelnorm] Enoxaparin [Lovenox] 80 mg SQ Q12H 06/08/19 10/10/19 Phenergen 12.5 mg IV Q8HR PRN 06/08/19 10/10/19 Ondansetron 4mg 4 mg IV Q8H PRN 06/23/19 10/10/19 Dicyclomine [Bentyl] 10 mg PO Q8H PRN 08/08/19 10/10/19 Lansoprazole 30 mg PO BID 08/27/19 10/10/19 Levothyroxine Sodium [Synthroid] 100 mcg PO DAILY 10/04/19 10/10/19 Previous Rx's Medication Instructions Recorded Scopolamine 1.5MG/72Hr Patch 1 patch TRANSDERM Q72H #10 patch 07/31/18 [TransDerm Scop] Allergies Allergy/AdvReac Type Severity Reaction Status Date / Time metoclopramide [From Reglan] AdvReac Mild jittery Verified 10/10/19 18:38 prochlorperazine AdvReac Mild JITTERY Verified 10/10/19 18:38 [From Compazine] Review of Systems ROS Other: All systems not noted in ROS Statement are negative. <Enzo Mcduffie - Last Filed: 10/10/19 18:16> ROS Other: All systems not noted in ROS Statement are negative. <Jian Vallejo - Last Filed: 10/10/19 20:50> ROS Statement: Those systems with pertinent positive or pertinent negative responses have been documented in the HPI. Past Medical History Past Medical History: Deep Vein Thrombosis (DVT), GERD/Reflux, Pulmonary Embolus (PE), Thyroid Disorder Additional Past Medical History / Comment(s): Other hx:Idiopathic gastroparesis, takes little in orally-has J tube for feedings-currently on hold and receiving TPN, chronic abdominal pain, R pulmonary embolism -2017, dvt R upper extremity 2018, pancreatitis once in 2018-thought stone somewhere, hypothyroid, chronic anemia, sinus problems, migraine. 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 J tube replaced-last replace in November or December 2018, piccs, mediport insertion Past Anesthesia/Blood Transfusion Reactions: No Reported Reaction Past Psychological History: Depression Smoking Status: Never smoker Past Alcohol Use History: None Reported Past Drug Use History: None Reported - Past Family History Father Family Medical History: Hypertension Additional Family Medical History / Comment(s): Father is 57 yrs old.. Mother Family Medical History: No Reported History Additional Family Medical History / Comment(s): Mother is 57yrs old. <Enzo Mcduffie - Last Filed: 10/10/19 18:16> General Exam Limitations: no limitations General appearance: alert, in no apparent distress Head exam: Present: atraumatic, normocephalic, normal inspection Eye exam: Present: normal appearance, PERRL, EOMI Pupils: Present: normal accommodation ENT exam: Present: normal exam, normal oropharynx, mucous membranes moist Neck exam: Present: normal inspection, full ROM. Absent: tenderness Respiratory exam: Present: normal lung sounds bilaterally. Absent: respiratory distress, wheezes Cardiovascular Exam: Present: regular rate, normal rhythm, normal heart sounds Extremities exam: Present: normal inspection (PICC line inserted in the right upper arm. No signs of erythema or skin discoloration.), full ROM, tenderness (Tenderness at the site of PICC line), normal capillary refill, other (+2 ulnar and radial pulses bilateral.) Back exam: Present: normal inspection, full ROM. Absent: tenderness Neurological exam: Present: alert, oriented X3 Psychiatric exam: Present: normal affect, normal mood Skin exam: Present: warm, dry, intact, normal color <Enzo Mcduffie - Last Filed: 10/10/19 18:16> Course Vital Signs 10/10/19 10/10/19 14:45 19:59 Temperature 99.0 F 98.1 F Pulse Rate 75 77 Respiratory 16 16 Rate Blood Pressure 132/77 117/72 O2 Sat by Pulse 100 100 Oximetry Medical Decision Making <Enzo Mcduffie - Last Filed: 10/10/19 18:16> <Jian Vallejo - Last Filed: 10/10/19 20:50> - Medical Decision Making Patient 39-year-old female presenting to the emergency room with a chief complaint of right upper arm pain. Patient is a PICC line in the right upper extremity. Ultrasound of the right upper extremity reveals DVT. Patient will be admitted for further medical management. Patient started on heparin. also examined the patient. Hematology consulted. Vascular consulted.` (Enzo Mcduffie) I discussed case with Dr. Heck, for vascular surgery as well as hematology. Recommendation was for high-dose heparin, possible change In PICC line placement however the PICC line is functioning at this time, will maintain this line waiting further recommendations. Patient has been admitted with both after surgery and hematology on consult. (Jian Vallejo) Disposition Is patient prescribed a controlled substance at d/c from ED?: No Time of Disposition: 18:18 <Enzo Mcduffie - Last Filed: 10/10/19 18:16> <Jian Vallejo - Last Filed: 10/10/19 20:50> Clinical Impression: Deep vein thrombosis (DVT) of upper extremity Disposition: ADMITTED IP TO THIS HOSP Condition: Good
--- NOTE | 2019-10-10 16:36 | US ---
EXAMINATION TYPE: US venous doppler duplex UE RT DATE OF EXAM: 10/10/2019 COMPARISON: US 10/08/2019, US 03/29/2019 CLINICAL HISTORY: pain. Pain in right axilla. Patient has picc line. History of DVT. Patient takes bl ood thinners SIDE PERFORMED: Right Right Arm: Positive for DVT right subclavian vein to right axilla. Positive for SVT right basilic emily r picc line Report was called to the emergency room physician Panda by Dr. John by telephone at the time o f interpretation 1630 hours 10/10/2019. IMPRESSION: 1. Right subclavian vein and axillary vein positive for deep venous thrombosis.
[2019-10-10] MEDS ORDERED: LORazepam 2 MG/ML INJ IV PRN (18:12)
[2019-10-10] MEDS ORDERED: NALOXONE 0.4 MG/ML 1 ML VIAL IV PRN (18:12)
[2019-10-10 19:45] LABS: Basophils # (A) 0.1 k/uL (0-0.2); Basophils % (A) 1 %; Eosinophils # (A) 0.2 k/uL (0-0.7); Eosinophils % (A) 2 %; HCT 38.2 % (34.0-46.0); HGB 12.2 gm/dL (11.4-16.0); Lymphocytes # (A) 3.5 k/uL (1.0-4.8); Lymphocytes % (A) 38 %; MCH 25.9 pg (25.0-35.0); MCHC 31.9 g/dL (31.0-37.0); MCV 81.1 fL (80.0-100.0); Monocytes # (A) 0.5 k/uL (0-1.0); Monocytes % (A) 6 %; Neutrophils # (A) 4.7 k/uL (1.3-7.7); Neutrophils % (A) 52 %; Platelet Count 368 k/uL (150-450); RBC 4.71 m/uL (3.80-5.40); RDW 13.7 % (11.5-15.5); WBC 9.1 k/uL (3.8-10.6)
[2019-10-10 19:53] LABS: Partial Thromboplastin Time 30.8 sec (22.0-30.0); Prothrombin Time 10.5 sec (9.0-12.0)
[2019-10-10] MEDS ORDERED: ONDANSETRON 4 MG/2 ML VIAL IVP STA (20:13)
[2019-10-10] MEDS ORDERED: HYDROmorphone 1 MG/ML 1 ML SYRINGE ONE (23:35)
[2019-10-11] MEDS ORDERED: HYDROmorphone 1 MG/ML 1 ML SYRINGE ONE (03:15)
[2019-10-11 03:59] LABS: Basophils # (A) 0.1 k/uL (0-0.2); Basophils % (A) 1 %; Eosinophils # (A) 0.2 k/uL (0-0.7); Eosinophils % (A) 3 %; HCT 36.8 % (34.0-46.0); HGB 11.4 gm/dL (11.4-16.0); Hypochromasia Slight; Lymphocytes # (A) 4.1 k/uL (1.0-4.8); Lymphocytes % (A) 55 %; MCH 25.7 pg (25.0-35.0); MCHC 31.1 g/dL (31.0-37.0); MCV 82.6 fL (80.0-100.0); Mean Platelet Volume 6.9; Monocytes # (A) 0.5 k/uL (0-1.0); Monocytes % (A) 7 %; Neutrophils # (A) 2.4 k/uL (1.3-7.7); Neutrophils % (A) 32 %; Platelet Count 331 k/uL (150-450); RBC 4.45 m/uL (3.80-5.40); RDW 13.7 % (11.5-15.5); WBC 7.5 k/uL (3.8-10.6)
[2019-10-11] MEDS: HYDROmorphone 0.5 MG/0.5 ML SYRINGE IVP PRN ×5 (07:07→20:16)
--- NOTE | 2019-10-11 11:07 | P.CONS ---
History of Present Illness - Reason for Consult Consult date: 10/11/19 RUE DVT Requesting physician: Enzo Mcduffie - Chief Complaint RUE pain and swelling - History of Present Illness Mrs. Vargas is a very pleasant 39-year-old female patient on her th hospital ER visit/admit Since Apr 2019. She has a history of chronic idiopathic gastroparesis, requiring TPN. She saw Dr. Chung in the outpatient setting, last in 12/20. She known to have chronic iron deficiency anemia attributed to gastric bypass. She is known to have Gastroparesis, pancreatitis, SMA syndrome, has gastric simulator placed, where site became infected and required IV antibiotics (Vancomycin). PE was diagnosed in [place] 05/22 post PICC line placement-3 months anticoagulation per Pulmonary. 08/20/2017 she was admitted to [place], found to have SVT in the right basilic vein where she had a PICC line placed for gastric stimulator infection, on home IV antibiotics. Recommended anticoagulation for at least a year. Admitted to [place] 05/10/18. She was anticoagulated at the time on eliquis, diagnosed with PICC line related left upper extremity SVT, recommendation was to continue on anticoagulation. She was changed to lovenox at some point. She was again admitted here 03/22 with line associated clot in the arm. Lovenox dose was increased. Pt admitted for arm pain and swelling, RUE DVT at PICC site fouund. No other c/o on a 14 point ROS. Review of Systems 14 point review of systems is negative except as stated in HPI Past Medical History Past Medical History: Deep Vein Thrombosis (DVT), GERD/Reflux, Pulmonary Embolus (PE), Thyroid Disorder Additional Past Medical History / Comment(s): Other hx:Idiopathic gastroparesis, takes little in orally-has J tube for feedings-currently on hold and receiving TPN, chronic abdominal pain, R pulmonary embolism -2017, dvt R upper extremity 2018, pancreatitis once in 2018-thought stone somewhere, hypothyroid, chronic anemia, sinus problems, migraine. 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 J tube replaced-last replace in November or December 2018, piccs, mediport insertion Past Anesthesia/Blood Transfusion Reactions: No Reported Reaction Past Psychological History: Depression Additional Psychological History / Comment(s): . Smoking Status: Never smoker Past Alcohol Use History: None Reported Additional Past Alcohol Use History / Comment(s): PT DENIES SMOKING OR ANY ILLEGAL DRUG USE, HAS AN OCC DRINK. Past Drug Use History: None Reported - Past Family History Father Family Medical History: Hypertension Additional Family Medical History / Comment(s): Father is 57 yrs old.. Mother Family Medical History: No Reported History Additional Family Medical History / Comment(s): Mother is 57yrs old. Medications and Allergies Home Medications Medication Instructions Recorded Confirmed Type Montelukast Chew [Singulair] 10 mg PO DAILY 02/02/18 10/10/19 History Topiramate [Trokendi Xr] 50 mg PO HS 07/18/18 10/10/19 History Scopolamine 1.5MG/72Hr Patch 1 patch TRANSDERM Q72H #10 patch 07/31/18 10/10/19 Rx [TransDerm Scop] Prucalopride Succinate [Motegrity] 2 mg PO DAILY 01/14/19 10/10/19 History oxyCODONE HCL [oxyCODONE HCL (IR)] 10 mg PO Q8H PRN 04/20/19 10/10/19 History Linaclotide [Linzess] 290 mcg PO DAILY 05/24/19 10/10/19 History Tegaserod Hydrogen Maleate 6 mg PO AC-BID 05/24/19 10/10/19 History [Zelnorm] Enoxaparin [Lovenox] 80 mg SQ Q12H 06/08/19 10/10/19 History Phenergen 12.5 mg IV Q8HR PRN 06/08/19 10/10/19 History Ondansetron 4mg 4 mg IV Q8H PRN 06/23/19 10/10/19 History Dicyclomine [Bentyl] 10 mg PO Q8H PRN 08/08/19 10/10/19 History Lansoprazole 30 mg PO BID 08/27/19 10/10/19 History Levothyroxine Sodium [Synthroid] 100 mcg PO DAILY 10/04/19 10/10/19 History Allergies Allergy/AdvReac Type Severity Reaction Status Date / Time metoclopramide [From Reglan] AdvReac Mild jittery Verified 10/10/19 18:38 prochlorperazine AdvReac Mild JITTERY Verified 10/10/19 18:38 [From Compazine] Physical Exam Vitals: Vital Signs Temp Pulse Pulse Resp BP BP Pulse Ox 10/11/19 08:00 76 18 10/11/19 07:00 98.3 F 64 18 94/59 100 10/11/19 01:56 98.3 F 76 18 108/70 100 10/10/19 21:08 99.1 F 63 18 115/71 98 10/10/19 19:59 98.1 F 77 16 117/72 100 10/10/19 14:45 99.0 F 75 16 132/77 100 Intake and Output 10/10/19 10/11/19 10/11/19 22:59 06:59 14:59 Other: Weight 77.111 kg - Constitutional General appearance: average body habitus, cooperative, no acute distress - EENT Eyes: anicteric sclerae, EOMI ENT: hearing grossly normal, normal oropharynx - Neck Neck: no lymphadenopathy - Cardiovascular Rhythm: regular Heart sounds: normal: S1, S2 Abnormal Heart Sounds: no systolic murmur, no diastolic murmur, no rub, no S3 Gallop, no S4 Gallop, no click, no other leg Peripheral Edema: right: Other (Upper extremity, mild swelling, axillary tenderness), bilateral: None - Gastrointestinal General gastrointestinal: no absent bowel sounds, no decreased bowel sounds, no distended, no hepatomegaly, no hyperactive bowel sounds, normal bowel sounds, no organomegaly, no rigid, no scaphoid, soft, no splenomegaly, no tenderness, no umbilical hernia, no ventral hernia - Integumentary Integumentary: normal - Neurologic Neurologic: CNII-XII intact - Musculoskeletal Musculoskeletal: strength equal bilaterally - Psychiatric Psychiatric: A&O x's 3, appropriate affect, intact judgment & insight Results CBC & Chem 7: 10/11/19 03:28 Labs: Abnormal Lab Results - Last 24 Hours (Table) 10/10/19 10/11/19 Range/Units 19:25 03:28 APTT 30.8 H 105.4 H* (22.0-30.0) sec Venous US: report reviewed (Also reviewed Doppler reports from March 2019 and from 3 days ago) Assessment and Plan (1) Deep vein thrombosis (DVT) of upper extremity Current Visit: Yes Status: Acute Priority: High Code(s): I82.629 - ACUTE EMBOLISM AND THROMBOSIS OF DEEP VN UNSP UP EXTREM SNOMED Code(s): 358776395 (2) Pulmonary embolism Current Visit: No Status: Chronic Priority: Medium Code(s): I26.99 - OTHER PULMONARY EMBOLISM WITHOUT ACUTE COR PULMONALE SNOMED Code(s): 24672058 Plan: Patient has chronic gastroparesis. She has been trialed on an O before meals before, she developed pulmonary embolism while on the same. It was felt to be related to malabsorption in the gut. Patient was on Lovenox prophylaxis, dose was increased to treatment dose in March 2019 when she was found to have a right upper extremity DVT at the PICC line site. Discussed case with Vascular GAME ADVISOR. Have asked for review of the Doppler reports from March, a few days ago and yesterday and see if they can determine acuity, acute versus chronic, any propagation. If stable, recommendation would be to continue on Lovenox at current dosing. If there is propagation or an acute component to this clot will request PICC line removal and insertion in the left upper extremity. Dose of Lovenox will be increased and check factor Xa inhibition or combination of Arixtra and aspirin will be started. Will make final recommendations after report from Vascular. All of the above was discussed with the patient. She verbalized understanding. Attests: I have seen pt, perfomored H&P and developed impression and plan of care. Discussed with dictator. Agree with documentation, documented as a scribe.
[2019-10-11] MEDS: HEPARIN SOD,PORK IN 0.45% NACL 25,000 UNIT in 0.45% NACL 1 250ML.BAG IV SCH ×2 (12:15→13:21)
--- NOTE | 2019-10-11 12:41 | P.GSCN ---
<Collette Robb - Last Filed: 10/11/19 12:26> History of Present Illness Consult date: 10/11/19 Reason for Consult: Right upper extremity subclavian and axillary deep vein thrombosis History of present illness: The patient is a pleasant 39-year-old female with multiple medical problems and hospitalizations with a history of gastroparesis including gastric bypass managed by [facility] in [facility]. Her past medical history includes bilateral upper extremity deep vein thrombosis likely related to PICC lines, and pulmonary embolism. The patient has been maintained on Lovenox 80 mg subcutaneously every 12 hours. She has been seen and followed by hematology in outpatient setting. The patient had a right upper extremity PICC line where she gets daily TPN and antiemetics at home. We have been consulted regarding a right upper extremity DVT of the subclavian vein and axillary vein. The patient states since her last admission she returned to where she had a Mediport placed and was using that for the last 6 months until it became infected. The Mediport was then discontinued and a right upper extremity PICC line was placed. Within the last week she started to feel pain in the right upper extremity and having swelling. The patient has a past medical history of previous DVT in the contralateral arm and pulmonary embolisms. She denies any chest pain or shortness of breath. Still has some complaints of right upper extremity discomfort especially in the axillary region. PICC line is still intact and functioning well. Review of Systems 14 point review of systems is completed, all pertinent positives and negatives as stated in the HPI. Past Medical History Past Medical History: Deep Vein Thrombosis (DVT), GERD/Reflux, Pulmonary Embolus (PE), Thyroid Disorder Additional Past Medical History / Comment(s): Other hx:Idiopathic gastroparesis, takes little in orally-has J tube for feedings-currently on hold and receiving TPN, chronic abdominal pain, R pulmonary embolism 5-2017, dvt R upper extremity 2018, pancreatitis once in 2018-thought stone somewhere, hypothyroid, chronic anemia, sinus problems, migraine. 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 J tube replaced-last replace in November or December 2018, piccs, mediport insertion Past Anesthesia/Blood Transfusion Reactions: No Reported Reaction Past Psychological History: Depression Additional Psychological History / Comment(s): . Smoking Status: Never smoker Past Alcohol Use History: None Reported Additional Past Alcohol Use History / Comment(s): PT DENIES SMOKING OR ANY ILLEGAL DRUG USE, HAS AN OCC DRINK. Past Drug Use History: None Reported - Past Family History Father Family Medical History: Hypertension Additional Family Medical History / Comment(s): Father is 57 yrs old.. Mother Family Medical History: No Reported History Additional Family Medical History / Comment(s): Mother is 57yrs old. Medications and Allergies Home Medications Medication Instructions Recorded Confirmed Type Montelukast Chew [Singulair] 10 mg PO DAILY 02/02/18 10/10/19 History Topiramate [Trokendi Xr] 50 mg PO HS 07/18/18 10/10/19 History Scopolamine 1.5MG/72Hr Patch 1 patch TRANSDERM Q72H #10 patch 07/31/18 10/10/19 Rx [TransDerm Scop] Prucalopride Succinate [Motegrity] 2 mg PO DAILY 01/14/19 10/10/19 History oxyCODONE HCL [oxyCODONE HCL (IR)] 10 mg PO Q8H PRN 04/20/19 10/10/19 History Linaclotide [Linzess] 290 mcg PO DAILY 05/24/19 10/10/19 History Tegaserod Hydrogen Maleate 6 mg PO AC-BID 05/24/19 10/10/19 History [Zelnorm] Enoxaparin [Lovenox] 80 mg SQ Q12H 06/08/19 10/10/19 History Phenergen 12.5 mg IV Q8HR PRN 06/08/19 10/10/19 History Ondansetron 4mg 4 mg IV Q8H PRN 06/23/19 10/10/19 History Dicyclomine [Bentyl] 10 mg PO Q8H PRN 08/08/19 10/10/19 History Lansoprazole 30 mg PO BID 08/27/19 10/10/19 History Levothyroxine Sodium [Synthroid] 100 mcg PO DAILY 10/04/19 10/10/19 History Allergies Allergy/AdvReac Type Severity Reaction Status Date / Time metoclopramide [From Reglan] AdvReac Mild jittery Verified 10/10/19 18:38 prochlorperazine AdvReac Mild JITTERY Verified 10/10/19 18:38 [From Compazine] Surgical - Exam Vital Signs Temp Pulse Resp BP Pulse Ox 99.0 F 75 16 132/77 100 10/10/19 14:45 10/10/19 14:45 10/10/19 14:45 10/10/19 14:45 10/10/19 14:45 General appearance: The patient is alert, oriented, in no acute distress. HET: Head is normocephalic and atraumatic. Neck: Supple without lymphadenopathy. Trachea midline. Heart: S1 S2. Regular rate and rhythm. Lungs: No crackles or wheezes are heard. Abdomen: Soft, nontender, nondistended with bowel sounds. Extremities: Normal skin color and turgor. No cyanosis, rash, ulceration, clubbing, or edema. Radial pulses are 2/4 bilaterally. Right upper extremity with mild swelling and tenderness in the axillary region. Right upper extremity PICC line in place with Tegaderm dressing. Neurological: No focal deficits. Strength and sensation are grossly intact. Results Right upper extremity venous Doppler ultrasound positive for a right subclavian vein and axillary deep vein thrombosis - Labs 10/11/19 03:28 Abnormal Lab Results - Last 24 Hours (Table) 10/10/19 10/11/19 Range/Units 19:25 03:28 APTT 30.8 H 105.4 H* (22.0-30.0) sec Assessment and Plan Assessment: 1. Right upper extremity deep vein thrombosis 2. History of pulmonary embolism and bilateral upper extremity deep vein thrombosis 3. Gastroparesis requiring TPA through PICC line, also has PEG tube which is gradually being used. Plan: Patient was admitted with a right upper extremity deep vein thrombosis. The plan is to determine if this is a chronic deep vein thrombosis versus acute. Radiology to review prior right upper extremity venous doppler reports from previously in the and March 2019. Continue heparin drip as ordered. Did discuss with the hematology nurse practitioner and agree with plan of care. There is no vascular surgical intervention indicated at this time. Continue with recommendations per hematology. H for this consultation and allowing us to take part in the plan of care of your patient during her hospital stay. The above dictated assessment and findings were discussed with Dr. Heck. The impression and plan of care have been directed as dictated. <Iglesia Aparicio - Last Filed: 10/11/19 15:48> Surgical - Exam Osteopathic Statement: *. No significant issues noted on an osteopathic structural exam other than those noted in the History and Physical/Consult. Vital Signs Temp Pulse Resp BP Pulse Ox 99.0 F 75 16 132/77 100 10/10/19 14:45 10/10/19 14:45 10/10/19 14:45 10/10/19 14:45 10/10/19 14:45 Results - Labs 10/11/19 03:28 Abnormal Lab Results - Last 24 Hours (Table) 10/10/19 10/11/19 10/11/19 Range/Units 19:25 03:28 11:59 APTT 30.8 H 105.4 H* 77.6 H (22.0-30.0) sec
--- NOTE | 2019-10-11 16:00 | HP ---
HISTORY AND PHYSICAL CHIEF COMPLAINT: Pain and swelling in the right arm. HISTORY OF PRESENT ILLNESS: This is another admission for this 39-year-old white female with gastroparesis. She was in the emergency room with pain and swelling in the right arm and apparently had an ultrasound which initially did not demonstrate a clot, but came back the next day and the ultrasound was positive. She has had no fever, chills, difficulty with movement in the shoulder, elbow, or right hand or wrist. REVIEW OF SYSTEMS: She has had no neurologic issues, change in vision or hearing, chest pain, shortness of breath, heart disease, recent hematemesis, melena, hematochezia, jaundice, hepatitis, renal failure, incontinence, diabetes, etc. PAST MEDICAL HISTORY, FAMILY HISTORY, PERSONAL AND SOCIAL HISTORY: All unchanged from recent discharge summary. She does have a central line in the right arm. PHYSICAL EXAMINATION: Blood pressure is 138/74 with a pulse of 81, respirations of 19, she is afebrile. In general, she appeared to be in no acute distress. Skin color is normal, skin is warm, dry. Head, ears, eyes, nose, mouth, and throat were normal. Neck veins are not distended. Thyroid is not enlarged. Chest is clear and cardiac exam is normal. The abdomen is soft and nontender and extremities are normal. There is no redness, induration, or bleeding from the central line in the right upper medial arm. Neurologically, she is intact. IMPRESSION: 1. Deep venous thrombosis of the right upper extremity. 2. Gastroparesis. 3. Intractable pain. 4. Intractable vomiting. PLAN: Continue with current treatment and medications from home, while obtaining a consult from Hematology/Oncology as well as Vascular Surgery. MMODL / IJN: [id number] /
[2019-10-11] MEDS: HYDROmorphone 1 MG/ML 1 ML SYRINGE IVP PRN (23:43)
[2019-10-12] MEDS: HYDROmorphone 1 MG/ML 1 ML SYRINGE IVP PRN ×5 (03:25→21:34)
[2019-10-12] MEDS: HYDROmorphone 0.5 MG/0.5 ML SYRINGE IVP PRN (07:13)
[2019-10-12 08:01] LABS: Basophils # (A) 0.1 k/uL (0-0.2); Basophils % (A) 1 %; Eosinophils # (A) 0.3 k/uL (0-0.7); Eosinophils % (A) 5 %; HGB 12.6 gm/dL (11.4-16.0); Hypochromasia Slight; Lymphocytes # (A) 2.4 k/uL (1.0-4.8); Lymphocytes % (A) 43 %; MCH 25.9 pg (25.0-35.0); MCHC 31.4 g/dL (31.0-37.0); MCV 82.5 fL (80.0-100.0); Monocytes # (A) 0.3 k/uL (0-1.0); Monocytes % (A) 6 %; Neutrophils # (A) 2.3 k/uL (1.3-7.7); Neutrophils % (A) 43 %; Platelet Count 342 k/uL (150-450); RBC 4.85 m/uL (3.80-5.40); RDW 13.6 % (11.5-15.5); WBC 5.5 k/uL (3.8-10.6)
[2019-10-12 08:28] LABS: Albumin 4.1 g/dL (3.5-5.0); Calcium 9.2 mg/dL (8.4-10.2); Total Bilirubin 0.3 mg/dL (0.2-1.3); Total Protein 6.6 g/dL (6.3-8.2)
--- NOTE | 2019-10-12 09:06 | P.PN ---
Subjective Progress Note Date: 10/12/19 Patient is seen and examined at the bedside. The patient states she still has some right upper extremity axillary discomfort. Has an ice pack applied to her right upper axilla. She denies any fever, chills, shortness of breath or chest pain. IV heparin drip. PICC line remains intact and right upper extremity. Objective - Vital Signs Vital signs: Vital Signs Temp 98.2 F 10/12/19 07:00 Pulse 82 10/12/19 07:00 Resp 16 10/12/19 07:00 BP 108/74 10/12/19 07:00 Pulse Ox 99 10/12/19 07:00 Intake & Output 10/11/19 10/12/19 10/12/19 18:59 06:59 18:59 Intake Total 94.65 93.5 Balance 94.65 93.5 Intake: Intake, IV Titration 94.65 93.5 Amount Heparin Sod,Pork in 0.45% 94.65 93.5 NaCl 25,000 unit In 0.45 % NaCl 1 250ml.bag @ 18 UNITS/KG/HR 13.878 mls/hr IV .Q18H1M [facility] Rx#: [id number] Other: # Voids 2 - Exam General appearance: The patient is alert, oriented, in no acute distress. HET: Head is normocephalic and atraumatic. Pupils are equal and reactive. Oropharynx is clear without lesions. Neck: Supple without lymphadenopathy. Trachea midline. Heart: S1 S2. Regular rate and rhythm. Lungs: No crackles or wheezes are heard. Abdomen: Soft, nontender, nondistended with bowel sounds. No peritoneal signs. No palpable organomegaly or masses. Extremities: Normal skin color and turgor. No cyanosis, rash, ulceration, clubbing, or edema. Radial pulses are 2/4 bilaterally. Minimal right upper extremity swelling, tenderness to palpation under right axilla. Neurological: No focal deficits. Strength and sensation are grossly intact. - Labs CBC & Chem 7: 10/12/19 07:26 10/12/19 07:26 Labs: Abnormal Lab Results - Last 24 Hours (Table) 10/11/19 10/11/19 10/12/19 Range/Units 11:59 19:41 07: APTT 77.6 H 36.3 H (22.0-30.0) sec Chloride 109 H (98-107) mmol/L 10/12/19 Range/Units 07:26 APTT 66.5 H (22.0-30.0) sec Chloride (98-107) mmol/L Assessment and Plan Assessment: 1. Right upper extremity deep vein thrombosis 2. History of pulmonary embolism and bilateral upper extremity deep vein thrombosis 3. Gastroparesis requiring TPA through PICC line, also has PEG tube which is gradually being used. Plan: Awaiting comparison of recent venous ultrasound of the right upper extremity to determine if this is acute versus chronic. Patient to continue on heparin drip at this time. No indication for vascular surgical interventions at this time. We will defer to hematology for anticoagulation recommendations. Can continue to follow recommendations per hematology. The above dictated assessment and findings were discussed with Dr. Luna. The impression and plan of care have been directed as dictated.
[2019-10-12] MEDS: HEPARIN SOD,PORK IN 0.45% NACL 25,000 UNIT in 0.45% NACL 1 250ML.BAG IV SCH (13:42)
[2019-10-12 14:53] VITALS: BMI 30.1
[2019-10-12] MEDS ORDERED: MVI, ADULT NO.4 WITH VIT K 10 ML, TRACE (CONC-1ML/DOSE) 1 ML in AMINO ACID 4.25%-D10W+L... IV SCH ×3 (15:30)
[2019-10-12] MEDS: HEPARIN SODIUM,PORCINE 5,000 UNIT/ML 1 ML VIAL IV PRN (16:22)
[2019-10-12 16:24] LABS: Magnesium 2.1 mg/dL (1.6-2.3); Phosphorus 4.8 mg/dL (2.5-4.5)
--- NOTE | 2019-10-12 17:04 | PN ---
PROGRESS NOTE DATE OF SERVICE: 10/11/2019 CHIEF COMPLAINT: Right subclavian vein thrombosis. HISTORY OF PRESENT ILLNESS: This lady is comfortable and is not having any new difficulties. She has had no fever or chills. She has had no vomiting. PHYSICAL EXAMINATION: Chest is clear. Cardiac exam is normal. Abdomen is soft, nontender. Right arm does not seem to be significantly edematous, cool or lacking function. IMPRESSION: Possible deep venous thrombosis in the right arm. PLAN: 1. Await evaluations by Vascular Surgery and Hematology. 2. Case was discussed with her . It was brought up that I was concerned about the fact that she is in the hospital so much and so often and that I was concerned about depression. He indicated that she has been going to counseling, and they are also going to marriage or family counseling as well. MMODL / IJN: [id number] /
[2019-10-12 17:23] LABS: Glucose,Whole Blood 96 mg/dL (75-99)
[2019-10-12] MEDS ORDERED: [UNRECOGNIZED DRUG - REMARK] IV ONE ×4 (18:00)
--- NOTE | 2019-10-12 18:25 | PN ---
PROGRESS NOTE DATE OF SERVICE: 10/12/2019 CHIEF COMPLAINT: DVT of the right arm. HISTORY OF PRESENT ILLNESS: This lady is feeling well. She is waiting for directions from Vascular Surgery and Oncology regarding the clot in her right arm. She has not had a great deal of abdominal pain or vomiting. PHYSICAL EXAMINATION: Her chest is clear. Cardiac exam is normal. Abdomen is soft, nontender. IMPRESSION: 1. Deep venous thrombosis of the right arm. 2. Gastroparesis. PLAN: Await recommendations from Hematology and Vascular Surgery. MMODL / IJN: [id number] /
[2019-10-12 20:21] LABS: Glucose,Whole Blood 88 mg/dL (75-99)
[2019-10-12] MEDS: FAT EMULSION 20% 250 ML in EMPTY BAG 1 BAG IV SCH (21:39)
--- NOTE | 2019-10-12 22:07 | P.PN ---
Subjective Progress Note Date: 10/12/19 Principal diagnosis: THrombolic Event Awaiting comparison of acute versus chronic RUE DVT Objective - Vital Signs Vital signs: Vital Signs Temp 98.5 F 10/12/19 14:55 Pulse 88 10/12/19 14:55 Resp 16 10/12/19 14:55 BP 118/76 10/12/19 14:55 Pulse Ox 100 10/12/19 14:55 Intake & Output 10/11/19 10/12/19 10/12/19 18:59 06:59 18:59 Intake Total 94.65 141.5 Balance 94.65 141.5 Weight 77.111 kg Intake: Intake, IV Titration 94.65 141.5 Amount Heparin Sod,Pork in 0.45% 94.65 141.5 NaCl 25,000 unit In 0.45 % NaCl 1 250ml.bag @ 18 UNITS/KG/HR 13.878 mls/hr IV .Q18H1M [facility] Rx#: [id number] Other: # Voids 2 - Exam - Constitutional General appearance: average body habitus, cooperative, no acute distress - EENT Eyes: anicteric sclerae, EOMI ENT: hearing grossly normal, normal oropharynx - Neck Neck: no lymphadenopathy - Cardiovascular Rhythm: regular Heart sounds: normal: S1, S2 Abnormal Heart Sounds: no systolic murmur, no diastolic murmur, no rub, no S3 Gallop, no S4 Gallop, no click, no other leg Peripheral Edema: right: Other (Upper extremity, mild swelling, axillary tenderness), bilateral: None - Gastrointestinal General gastrointestinal: no absent bowel sounds, no decreased bowel sounds, no distended, no hepatomegaly, no hyperactive bowel sounds, normal bowel sounds, no organomegaly, no rigid, no scaphoid, soft, no splenomegaly, no tenderness, no umbilical hernia, no ventral hernia - Integumentary Integumentary: normal - Neurologic Neurologic: CNII-XII intact - Musculoskeletal Musculoskeletal: strength equal bilaterally - Psychiatric Psychiatric: A&O x's 3, appropriate affect, intact judgment & insight - Labs CBC & Chem 7: 10/12/19 07:26 10/12/19 07:26 Labs: Abnormal Lab Results - Last 24 Hours (Table) 10/11/19 10/12/19 10/12/19 Range/Units 19:41 07:26 07:26 APTT 36.3 H 66.5 H (22.0-30.0) sec Chloride 109 H (98-107) mmol/L Assessment and Plan Plan: Assessment and Plan: 1. Deep vein thrombosis (DVT) of upper extremity 2. 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 Chronic Gastroparesis Plan: Reviewed other specialty notes appears we are still awaiting finalized report on comparision. In the interim supportive care, pain management and heparin drip will continue - recommendation would be to continue on Lovenox at current dosing. If there is propagation or an acute component to this clot will request PICC line removal and insertion in the left upper extremity. Dose of Lovenox will be increased and check factor Xa inhibition or combination of Arixtra and aspirin will be started. Will make final recommendations after report from Vascular. Does not appear to be a plan for vascular surgical intervention at this time Attests: I have seen pt, performed H&P and developed impression and plan of care. Discussed with dictator. Agree with documentation, documented as a scribe.
[2019-10-13] MEDS: HYDROmorphone 1 MG/ML 1 ML SYRINGE IVP PRN ×7 (00:44→22:34)
[2019-10-13] MEDS ORDERED: 1: MVI, ADULT NO.4 WITH VIT K 10 ML, TRACE (CONC-1ML/DOSE) 1 ML, PARENTERAL ELECTROLYTES IV SCH ×4 (06:00)
[2019-10-13 07:32] LABS: HCT 37.5 % (34.0-46.0); MCH 26.3 pg (25.0-35.0); MCHC 32.1 g/dL (31.0-37.0); Platelet Count 338 k/uL (150-450); RBC 4.58 m/uL (3.80-5.40); RDW 13.7 % (11.5-15.5)
[2019-10-13] MEDS: HEPARIN SOD,PORK IN 0.45% NACL 25,000 UNIT in 0.45% NACL 1 250ML.BAG IV SCH ×2 (08:06→17:25)
[2019-10-13 08:16] LABS: Ionized Calcium 5.4 mg/dL (4.5-5.3)
[2019-10-13 08:25] LABS: African American GFR (CKD) >90 (>60 ml/min/1.73 sqM); Anion Gap 6 mmol/L; Blood Urea Nitrogen 13 mg/dL (7-17); Carbon Dioxide 22 mmol/L (22-30); Chloride 110 mmol/L (98-107); Glucose 90 mg/dL (74-99); Magnesium 2.1 mg/dL (1.6-2.3); Non-African American GFR(CKD) >90 (>60 ml/min/1.73 sqM); Phosphorus 4.4 mg/dL (2.5-4.5); Potassium 4.1 mmol/L (3.5-5.1); Sodium 138 mmol/L (137-145)
[2019-10-13 08:41] LABS: Basophils % (A) 1 %; Eosinophils % (A) 5 %; Lymphocytes % (A) 46 %; Monocytes % (A) 7 %; Neutrophils % (A) 38 %; WBC 6.4 k/uL (3.8-10.6)
[2019-10-13 08:42] LABS: Basophils # (A) 0.1 k/uL (0-0.2); Eosinophils # (A) 0.3 k/uL (0-0.7); Lymphocytes # (A) 2.9 k/uL (1.0-4.8); Monocytes # (A) 0.5 k/uL (0-1.0); Neutrophils # (A) 2.4 k/uL (1.3-7.7)
[2019-10-13] MEDS ORDERED: 1: MVI, ADULT NO.4 WITH VIT K 10 ML, TRACE (CONC-1ML/DOSE) 1 ML in AMINO ACID 4.25%-D10W IV SCH ×3 (09:00)
[2019-10-13 11:25] LABS: Glucose,Whole Blood 80 mg/dL (75-99)
--- NOTE | 2019-10-13 13:51 | P.PN ---
Subjective Progress Note Date: 10/13/19 Principal diagnosis: THrombolic Event Spoke with Radiology yesterday evening. It appears this thrombolic event is new. Therefore we will plan to treat with axitra and aspirin. I will await port placement before switching from heparin. Since picc line in same arm it is recommended this is removed. Recommend port placement while inpatient with acute clot and need for central line access. After port may start asa and arixtra Objective - Vital Signs Vital signs: Vital Signs Temp 98.3 F 10/13/19 07:00 Pulse 65 10/13/19 07:00 Resp 19 10/13/19 07:00 BP 115/69 10/13/19 07:00 Pulse Ox 98 10/13/19 07:00 Intake & Output 10/12/19 10/13/19 10/13/19 18:59 06:59 18:59 Intake Total 165.795 86.789 360 Balance 165.795 86.789 360 Weight 77.111 kg Intake: Intake, IV Titration 165.795 86.789 360 Amount Heparin Sod,Pork in 0.45% 165.795 86.789 NaCl 25,000 unit In 0.45 % NaCl 1 250ml.bag @ 18 UNITS/KG/HR 13.878 mls/hr IV .Q18H1M [facility] Rx#: [id number] Mvi, Adult No.4 with Vit 360 K 10 ml Trace (Conc-1Ml/ Dose) 1 ml Parenteral Electrolytes 20 ml In Amino Acid 4.25%-D10w 1, 000 ml @ 60 mls/hr IV .BY DURATION [facility] Rx#: [id number] Other: # Voids 3 1 - Exam - Constitutional General appearance: average body habitus, cooperative, no acute distress - EENT Eyes: anicteric sclerae, EOMI ENT: hearing grossly normal, normal oropharynx - Neck Neck: no lymphadenopathy - Cardiovascular Rhythm: regular Heart sounds: normal: S1, S2 Abnormal Heart Sounds: no systolic murmur, no diastolic murmur, no rub, no S3 Gallop, no S4 Gallop, no click, no other leg Peripheral Edema: right: Other (Upper extremity, mild swelling, axillary tenderness), bilateral: None - Gastrointestinal General gastrointestinal: no absent bowel sounds, no decreased bowel sounds, no distended, no hepatomegaly, no hyperactive bowel sounds, normal bowel sounds, no organomegaly, no rigid, no scaphoid, soft, no splenomegaly, no tenderness, no umbilical hernia, no ventral hernia - Integumentary Integumentary: normal - Neurologic Neurologic: CNII-XII intact - Musculoskeletal Musculoskeletal: strength equal bilaterally - Psychiatric Psychiatric: A&O x's 3, appropriate affect, intact judgment & insight - Labs CBC & Chem 7: 10/13/19 06:33 10/13/19 06:33 Labs: Abnormal Lab Results - Last 24 Hours (Table) 10/12/19 10/12/19 10/13/19 Range/Units 14:57 20:18 06:33 APTT 178.9 H* (22.0-30.0) sec Chloride 110 H (98-107) mmol/L Ionized Calcium Jesse 5.4 H (4.5-5.3) mg/dL Phosphorus 4.8 H (2.5-4.5) mg/dL Triglycerides 296 H (<150) mg/dL 10/13/19 Range/Units 06:33 APTT 50.9 H (22.0-30.0) sec Chloride (98-107) mmol/L Ionized Calcium Jesse (4.5-5.3) mg/dL Phosphorus (2.5-4.5) mg/dL Triglycerides (<150) mg/dL Assessment and Plan Plan: Assessment and Plan: 1. Deep vein thrombosis (DVT) of upper extremity 2. 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 Chronic Gastroparesis Plan: Reviewed venous comparision with radiology yesterday evening and this is felt to be new event and acute. - Removal of PIcc line (same side as dvt) - Place mediport while inpatient and on heparin drip, then initate aspirin and arixtra. Discussed plan with atjoanie, she is tearful as she had plans to go out of town to a family reunion this week and disappointed, but she understands and agrees with plan Does not appear to be a plan for vascular surgical intervention at this time
--- NOTE | 2019-10-13 16:23 | PN ---
PROGRESS NOTE DATE OF SERVICE: CHIEF COMPLAINT: Deep venous thrombosis in the right arm. HISTORY OF PRESENT ILLNESS: This lady is doing fairly well and no new problems and she is still awaiting disposition from Vascular Surgery. They had mentioned that they have nothing further planned at this point and are waiting for Hematology to make a decision regarding anticoagulation. PHYSICAL EXAMINATION: The arm is warm and pulses are good. Chest is clear. The cardiac exam is normal. Abdomen is soft, nontender. IMPRESSION: 1. Deep venous thrombosis in the right arm. 2. Gastroparesis. PLAN: Await recommendations from Hematology. MMODL / IJN: [id number] /
[2019-10-13 16:24] LABS: Glucose,Whole Blood 94 mg/dL (75-99)
[2019-10-13] MEDS: 1: MVI, ADULT NO.4 WITH VIT K 10 ML, TRACE (CONC-1ML/DOSE) 1 ML, PARENTERAL ELECTROLYTES IV SCH ×8 (17:31)
[2019-10-13] MEDS: FAT EMULSION 20% 250 ML in EMPTY BAG 1 BAG IV SCH (18:17)
[2019-10-14 01:46] LABS: Glucose,Whole Blood 97 mg/dL (75-99)
[2019-10-14] MEDS: HYDROmorphone 1 MG/ML 1 ML SYRINGE IVP PRN ×7 (01:52→23:31)
[2019-10-14 06:01] LABS: Glucose,Whole Blood 94 mg/dL (75-99)
[2019-10-14 07:55] LABS: African American GFR (CKD) >90 (>60 ml/min/1.73 sqM); Anion Gap 6 mmol/L; Blood Urea Nitrogen 14 mg/dL (7-17); Carbon Dioxide 21 mmol/L (22-30); Chloride 110 mmol/L (98-107); Glucose 100 mg/dL (74-99); Non-African American GFR(CKD) >90 (>60 ml/min/1.73 sqM); Phosphorus 4.1 mg/dL (2.5-4.5); Sodium 137 mmol/L (137-145)
[2019-10-14] MEDS: HEPARIN SODIUM,PORCINE 5,000 UNIT/ML 1 ML VIAL IV PRN (09:08)
[2019-10-14] MEDS: 1: MVI, ADULT NO.4 WITH VIT K 10 ML, TRACE (CONC-1ML/DOSE) 1 ML, PARENTERAL ELECTROLYTES IV SCH ×4 (09:11)
--- NOTE | 2019-10-14 10:02 | P.PN ---
Subjective Progress Note Date: 10/14/19 Patient is reevaluated today in reference to placement of a port for long-term IV access. Currently the patient has IV access via a PICC via the right upper extremity approach. This is working well for the patient. I discussed with the patient placement of a port. The OR availability for surgical time is extremely limited at this juncture and unlikely to be available tomorrow. As such, the patient would be scheduled for Tuesday at the earliest or if stable the patient could be brought in as an outpatient for a port placement. I will tentatively schedule the patient for surgery on Tuesday how er the patient is dismissed this can be scheduled outpatient. Objective - Vital Signs Vital signs: Vital Signs Temp 98.4 F 10/14/19 07:00 Pulse 91 10/14/19 07:00 Resp 16 10/14/19 07:00 BP 102/61 10/14/19 07:00 Pulse Ox 99 10/14/19 07:00 Intake & Output 10/13/19 10/14/19 10/14/19 18:59 06:59 18:59 Intake Total 498.916 153.699 Balance 498.916 153.699 Intake: Intake, IV Titration 498.916 153.699 Amount Heparin Sod,Pork in 0.45% 138.916 153.699 NaCl 25,000 unit In 0.45 % NaCl 1 250ml.bag @ 18 UNITS/KG/HR 13.878 mls/hr IV .Q18H1M [facility] Rx#: [id number] Mvi, Adult No.4 with Vit 360 K 10 ml Trace (Conc-1Ml/ Dose) 1 ml Parenteral Electrolytes 20 ml In Amino Acid 4.25%-D10w 1, 000 ml @ 60 mls/hr IV .BY DURATION [facility] Rx#: [id number] Other: # Voids 1 3 - Labs CBC & Chem 7: 10/13/19 06:33 10/14/19 07:08 Labs: Abnormal Lab Results - Last 24 Hours (Table) 10/14/19 10/14/19 Range/Units 07:08 07:08 APTT 42.6 H (22.0-30.0) sec Chloride 110 H (98-107) mmol/L Carbon Dioxide 21 L (22-30) mmol/L Glucose 100 H (74-99) mg/dL
[2019-10-14 11:40] LABS: Glucose,Whole Blood 97 mg/dL (75-99)
[2019-10-14] MEDS ORDERED: PROMETHAZINE INJ 6.25 MG in SODIUM CHLORIDE 0.9% 50 ML IVPB PRN (16:12)
[2019-10-14 16:37] LABS: Glucose,Whole Blood 122 mg/dL (75-99)
--- NOTE | 2019-10-14 17:02 | PN ---
PROGRESS NOTE CHIEF COMPLAINT: DVT of the right arm. HISTORY OF PRESENT ILLNESS: This lady is having a little trouble with nausea today, which is a new problem. She has had no fever, chills, abdominal pain, etc. Apparently hematology wants her port put back in before she goes home. PHYSICAL EXAMINATION: Chest is clear. Cardiac exam is normal. Abdomen is soft, nontender. The right arm is normal. IMPRESSION: DVT of the right arm. PLAN: 1. Phenergan for nausea. 2. Replacement of her port for intravenous anticoagulation and then she can go home. MMODL / IJN: [id number] /
[2019-10-14] MEDS: HEPARIN SOD,PORK IN 0.45% NACL 25,000 UNIT in 0.45% NACL 1 250ML.BAG IV SCH ×2 (17:51→19:55)
[2019-10-14] MEDS: FAT EMULSION 20% 250 ML in EMPTY BAG 1 BAG IV SCH (17:57)
[2019-10-15 00:14] LABS: Glucose,Whole Blood 91 mg/dL (75-99)
[2019-10-15] MEDS: 1: MVI, ADULT NO.4 WITH VIT K 10 ML, TRACE (CONC-1ML/DOSE) 1 ML, PARENTERAL ELECTROLYTES IV SCH ×12 (02:00→17:55)
[2019-10-15] MEDS: HYDROmorphone 1 MG/ML 1 ML SYRINGE IVP PRN ×7 (02:24→23:34)
[2019-10-15 06:19] LABS: Glucose,Whole Blood 92 mg/dL (75-99)
[2019-10-15 08:15] LABS: African American GFR (CKD) >90 (>60 ml/min/1.73 sqM); Anion Gap 8 mmol/L; Blood Urea Nitrogen 12 mg/dL (7-17); Calcium 9.2 mg/dL (8.4-10.2); Carbon Dioxide 19 mmol/L (22-30); Chloride 111 mmol/L (98-107); Glucose 100 mg/dL (74-99); Magnesium 1.9 mg/dL (1.6-2.3); Non-African American GFR(CKD) >90 (>60 ml/min/1.73 sqM); Phosphorus 4.3 mg/dL (2.5-4.5); Potassium 4.1 mmol/L (3.5-5.1); Sodium 138 mmol/L (137-145)
[2019-10-15 11:38] LABS: Glucose,Whole Blood 120 mg/dL (75-99)
--- NOTE | 2019-10-15 13:59 | P.PN ---
Subjective Progress Note Date: 10/15/19 Patient is seen and examined at the bedside. According to notes from hematology, RUQ DVT is likely acute. Patient is scheduled tomorrow for mediport placement. Still currently has right PICC line in place with patency, heparin drip, and TPN. Patient denies any shortness of breath or chest pain. Still has some mild discomfort in right upper extremity. Objective - Vital Signs Vital signs: Vital Signs Temp 98.5 F 10/15/19 07:00 Pulse 86 10/15/19 07:00 Resp 17 10/15/19 07:00 BP 104/57 10/15/19 07:00 Pulse Ox 98 10/15/19 07:00 Intake & Output 10/14/19 10/15/19 10/15/19 18:59 06:59 18:59 Intake Total 964.907 6502 149.117 Balance 195.860 4610 149.117 Weight 77.111 kg Intake: Intake, IV Titration 917.419 8416 149.117 Amount Heparin Sod,Pork in 0.45% 250.000 149.117 NaCl 25,000 unit In 0.45 % NaCl 1 250ml.bag @ 18 UNITS/KG/HR 13.878 mls/hr IV .Q18H1M [facility] Rx#: [id number] Mvi, Adult No.4 with Vit 420 1009 K 10 ml Trace (Conc-1Ml/ Dose) 1 ml Parenteral Electrolytes 20 ml In Amino Acid 4.25%-D10w 1, 000 ml @ 60 mls/hr IV .BY DURATION [facility] Rx#: [id number] - Exam General appearance: The patient is alert, oriented, in no acute distress. HET: Head is normocephalic and atraumatic. Neck: Supple without lymphadenopathy. Trachea midline. Heart: S1 S2. Regular rate and rhythm. Lungs: No crackles or wheezes are heard. Extremities: Normal skin color and turgor. No cyanosis, rash, ulceration, clubbing, or edema. Radial pulses are 2/4 bilaterally. Minimal tenderness to palpation under right axilla. Neurological: No focal deficits. Strength and sensation are grossly intact. - Labs CBC & Chem 7: 10/13/19 06:33 10/15/19 07:00 Labs: Abnormal Lab Results - Last 24 Hours (Table) 10/14/19 10/14/19 10/15/19 Range/Units 15:15 16:35 07:00 APTT 49.3 H (22.0-30.0) sec Chloride 111 H (98-107) mmol/L Carbon Dioxide 19 L (22-30) mmol/L Glucose 100 H (74-99) mg/dL POC Glucose (mg/dL) 122 H (75-99) mg/dL 10/15/19 10/15/19 Range/Units 07:00 11:37 APTT 49.3 H (22.0-30.0) sec Chloride (98-107) mmol/L Carbon Dioxide (22-30) mmol/L Glucose (74-99) mg/dL POC Glucose (mg/dL) 120 H (75-99) mg/dL Assessment and Plan Assessment: 1. Right upper extremity deep vein thrombosis 2. History of pulmonary embolism and bilateral upper extremity deep vein thrombosis 3. Gastroparesis requiring TPA through PICC line, also has PEG tube which is gradually being used. Plan: She is scheduled for port placement tomorrow. Patient to continue on heparin drip at this time, hold six hours prior to port placement. Hematology to start patient on ASA and arixtraafter port placement. Can continue to follow recommendations per hematology. The above dictated assessment and findings were discussed with Dr. Hess. The impression and plan of care have been directed as dictated.
[2019-10-15 16:26] LABS: Glucose,Whole Blood 152 mg/dL (75-99)
--- NOTE | 2019-10-15 17:20 | P.PN ---
Subjective Progress Note Date: 10/15/19 Principal diagnosis: THrombolic Event Sitting in bed, no acute complaints. Objective - Vital Signs Vital signs: Vital Signs Temp 98.9 F 10/15/19 14:41 Pulse 83 10/15/19 14:41 Resp 17 10/15/19 14:41 BP 135/65 10/15/19 14:41 Pulse Ox 100 10/15/19 14:41 Intake & Output 10/14/19 10/15/19 10/15/19 18:59 06:59 18:59 Intake Total 041.227 3397 149.117 Balance 124.334 4792 149.117 Weight 77.111 kg Intake: Intake, IV Titration 022.488 2747 149.117 Amount Heparin Sod,Pork in 0.45% 250.000 149.117 NaCl 25,000 unit In 0.45 % NaCl 1 250ml.bag @ 18 UNITS/KG/HR 13.878 mls/hr IV .Q18H1M [facility] Rx#: [id number] Mvi, Adult No.4 with Vit 420 1009 K 10 ml Trace (Conc-1Ml/ Dose) 1 ml Parenteral Electrolytes 20 ml In Amino Acid 4.25%-D10w 1, 000 ml @ 60 mls/hr IV .BY DURATION [facility] Rx#: [id number] Other: # Voids 3 - Exam - Constitutional General appearance: average body habitus, cooperative, no acute distress - EENT Eyes: anicteric sclerae, EOMI ENT: hearing grossly normal, normal oropharynx - Neck Neck: no lymphadenopathy - Cardiovascular Rhythm: regular Heart sounds: normal: S1, S2 Abnormal Heart Sounds: no systolic murmur, no diastolic murmur, no rub, no S3 Gallop, no S4 Gallop, no click, no other leg Peripheral Edema: right: Other (Upper extremity, mild swelling, axillary tenderness), bilateral: None - Gastrointestinal General gastrointestinal: no absent bowel sounds, no decreased bowel sounds, no distended, no hepatomegaly, no hyperactive bowel sounds, normal bowel sounds, no organomegaly, no rigid, no scaphoid, soft, no splenomegaly, no tenderness, no umbilical hernia, no ventral hernia - Integumentary Integumentary: normal - Neurologic Neurologic: CNII-XII intact - Musculoskeletal Musculoskeletal: strength equal bilaterally - Psychiatric Psychiatric: A&O x's 3, appropriate affect, intact judgment & insight - Labs CBC & Chem 7: 10/13/19 06:33 10/15/19 07:00 Labs: Abnormal Lab Results - Last 24 Hours (Table) 10/15/19 10/15/19 10/15/19 Range/Units 07:00 07:00 11:37 APTT 49.3 H (22.0-30.0) sec Chloride 111 H (98-107) mmol/L Carbon Dioxide 19 L (22-30) mmol/L Glucose 100 H (74-99) mg/dL POC Glucose (mg/dL) 120 H (75-99) mg/dL 10/15/19 Range/Units 16:25 APTT (22.0-30.0) sec Chloride (98-107) mmol/L Carbon Dioxide (22-30) mmol/L Glucose (74-99) mg/dL POC Glucose (mg/dL) 152 H (75-99) mg/dL Assessment and Plan Plan: Assessment and Plan: 1. Deep vein thrombosis (DVT) of upper extremity 2. 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 Chronic Gastroparesis Plan: Reviewed venous comparision with radiology yesterday evening and this is felt to be new event and acute. - Removal of PIcc line (same side as dvt), this is why it is best to have port placed while still on heparin drip prior to discharge when arixtra and aspirin will need to be started. This will save an unecessary picc line in other arm and possible line risk of another clot. - Place mediport while inpatient and on heparin drip, then initate aspirin and arixtra. - Mediport Tuesday
[2019-10-15] MEDS: FAT EMULSION 20% 250 ML in EMPTY BAG 1 BAG IV SCH (17:56)
[2019-10-16 00:32] LABS: Glucose,Whole Blood 103 mg/dL (75-99)
[2019-10-16] MEDS: HYDROmorphone 1 MG/ML 1 ML SYRINGE IVP PRN ×6 (03:17→21:34)
[2019-10-16 08:31] LABS: African American GFR (CKD) >90 (>60 ml/min/1.73 sqM); Anion Gap 7 mmol/L; Blood Urea Nitrogen 14 mg/dL (7-17); Calcium 9.1 mg/dL (8.4-10.2); Carbon Dioxide 19 mmol/L (22-30); Chloride 111 mmol/L (98-107); Glucose 109 mg/dL (74-99); Magnesium 1.8 mg/dL (1.6-2.3); Non-African American GFR(CKD) >90 (>60 ml/min/1.73 sqM); Phosphorus 4.2 mg/dL (2.5-4.5); Potassium 4.6 mmol/L (3.5-5.1); Sodium 137 mmol/L (137-145)
[2019-10-16] MEDS: HEPARIN SOD,PORK IN 0.45% NACL 25,000 UNIT in 0.45% NACL 1 250ML.BAG IV SCH (09:09)
[2019-10-16] MEDS: 1: MVI, ADULT NO.4 WITH VIT K 10 ML, TRACE (CONC-1ML/DOSE) 1 ML, PARENTERAL ELECTROLYTES IV SCH ×4 (10:35)
[2019-10-16] MEDS: MAGNESIUM SULFATE-D5W PMX 1 GM in DEXTROSE/WATER 1 100ML.BAG IVPB SCH ×2 (11:31→16:56)
[2019-10-16] MEDS ORDERED: LACTATED RINGERS 1,000 ML IV ONE (12:09)
[2019-10-16] MEDS ORDERED: ONDANSETRON 4 MG/2 ML VIAL ONE (12:18)
[2019-10-16] MEDS ORDERED: SCOPOLAMINE 1.5MG/72HR PATCH TRANSDERM ONE (12:47)
[2019-10-16] MEDS ORDERED: DEXAMETHASONE SOD PHOSPHATE 10 MG/ML 1 ML VIAL IV ONE (12:47)
[2019-10-16] MEDS ORDERED: ONDANSETRON 4 MG/2 ML VIAL IVP ONE (12:48)
[2019-10-16] MEDS ORDERED: fentaNYL (PF) 50 MCG/ML 2 ML AMP ONE (13:40)
[2019-10-16] MEDS ORDERED: KETAMINE 10 MG/ML 20 ML VIAL ONE (13:40)
[2019-10-16] MEDS ORDERED: MIDAZOLAM 2 MG/2 ML VIAL ONE (13:40)
[2019-10-16] MEDS ORDERED: PROPOFOL 10 MG/ML 20 ML VIAL IV ONE (13:40)
[2019-10-16] MEDS ORDERED: SODIUM CHLORIDE 0.9% 50 ML with ceFAZolin 2,000 MG IV ONE ×2 (14:05)
[2019-10-16] MEDS ORDERED: LIDOCAINE 1% INJ 10MG/ML (20 ML MDV) SQ ONE (14:26)
[2019-10-16] MEDS ORDERED: ceFAZolin 1,000 MG in SODIUM CHLORIDE 0.9% 1,000 ML IRRIGATION ONE (14:39)
--- NOTE | 2019-10-16 14:59 | P.PN ---
Subjective Progress Note Date: 10/16/19 Principal diagnosis: THrombolic Event Mediport today and removal of picc line of associated acute dvt. Planning ASA 81mg and Arixtra 7.5mg daily. This is needed because of inability to properly absorb anticoagulation with chronic gastroparesis. I have consulted case management to help with approval with insurance company, and sent prescription to [facility] in the [facility] electronically for copay. She will follow up with Dr. Luna in 6-8 weeks Objective - Vital Signs Vital signs: Vital Signs Temp 98.5 F 10/16/19 12:05 Pulse 72 10/16/19 12:05 Resp 16 10/16/19 12:05 BP 119/64 10/16/19 12:05 Pulse Ox 99 10/16/19 12:05 Intake & Output 10/15/19 10/16/19 10/16/19 18:59 06:59 18:59 Intake Total 149.117 351 Balance 149.117 351 Intake: IV 351 Intake, IV Titration 149.117 Amount Heparin Sod,Pork in 0.45% 149.117 NaCl 25,000 unit In 0.45 % NaCl 1 250ml.bag @ 18 UNITS/KG/HR 13.878 mls/hr IV .Q18H1M [facility] Rx#: [id number] Other: # Voids 3 3 - Exam - Constitutional General appearance: average body habitus, cooperative, no acute distress - EENT Eyes: anicteric sclerae, EOMI ENT: hearing grossly normal, normal oropharynx - Neck Neck: no lymphadenopathy - Cardiovascular Rhythm: regular Heart sounds: normal: S1, S2 Abnormal Heart Sounds: no systolic murmur, no diastolic murmur, no rub, no S3 Gallop, no S4 Gallop, no click, no other leg Peripheral Edema: right: Other (Upper extremity, mild swelling, axillary tenderness), bilateral: None - Gastrointestinal General gastrointestinal: no absent bowel sounds, no decreased bowel sounds, no distended, no hepatomegaly, no hyperactive bowel sounds, normal bowel sounds, no organomegaly, no rigid, no scaphoid, soft, no splenomegaly, no tenderness, no umbilical hernia, no ventral hernia - Integumentary Integumentary: normal - Neurologic Neurologic: CNII-XII intact - Musculoskeletal Musculoskeletal: strength equal bilaterally - Psychiatric Psychiatric: A&O x's 3, appropriate affect, intact judgment & insight - Labs CBC & Chem 7: 10/13/19 06:33 10/17/19 06:51 Labs: Abnormal Lab Results - Last 24 Hours (Table) 10/15/19 10/16/19 10/16/19 Range/Units 16:25 00:30 07:17 APTT 40.6 H (22.0-30.0) sec Chloride (98-107) mmol/L Carbon Dioxide (22-30) mmol/L Glucose (74-99) mg/dL POC Glucose (mg/dL) 152 H 103 H (75-99) mg/dL 10/16/19 Range/Units 07:17 APTT (22.0-30.0) sec Chloride 111 H (98-107) mmol/L Carbon Dioxide 19 L (22-30) mmol/L Glucose 109 H (74-99) mg/dL POC Glucose (mg/dL) (75-99) mg/dL Assessment and Plan Plan: Assessment and Plan: 1. Deep vein thrombosis (DVT) of upper extremity 2. 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 Chronic Gastroparesis Plan: Reviewed venous comparision with radiology yesterday evening and this is felt to be new event and acute. - Removal of PIcc line (same side as dvt), this is why it is best to have port placed while still on heparin drip prior to discharge when arixtra and aspirin will need to be started. This will save an unecessary picc line in other arm and possible line risk of another clot. - Place mediport while inpatient and on heparin drip, then initate aspirin and arixtra. - Mediport Tuesday - baby Aspirin - Arixtra 7.5mg sub cut daily indefinetely, failure to lovenox and unable to take PO with chronic gastroparesis, inconsistent absorption increased risk for t hrombus on PO anticoagulation. - Ok with hematology for discharge after mediport and removal of RUE picc (associated with new dvt) - Will follow-up with Dr. Luna in office in 6-8 weeks. - Case management to assist with insurance approval of necessary medication. - Remove Picc line and administer TPN through POrt prior to discharge.
--- NOTE | 2019-10-16 15:09 | P.OP ---
Date of Procedure: 10/16/19 Description of Procedure: Preoperative diagnosis: Gastroparesis, need for parenteral nutrition, PICC line associated DVT, poor peripheral access Postoperative diagnosis: Same Procedure: [Ultrasound-guided right internal jugular vein access Placement of 8-Fijian port with fluoroscopic assistance and interpretation] Surgeon: Flor Hess D.O. Anesthesia: Monitored anesthesia care with local EBL: [Less than 20 mL] IV fluids: [See anesthesia] Urine output: [Not measured] Drains: [None] Complications: [None immediately apparent] Condition: [Stable to PACU] Operative indication and findings: [The patient is a 39-year-old female with a past medical history of gastroparesis who is requiring total parenteral nutrition. She has had multiple Butcher catheters as well as PICC lines in the past. About a year ago she had a port that had become infected that was removed. She currently utilizes a right upper extremity PICC line. She was found to have thrombus around the PICC line itself extending to the level of the mid subclavian vein. At this point a port imaging placed for poor peripheral access as well as for need for central vein access. Risks and benefits were discussed. She seemingly understood and was willing to proceed.] Procedure in detail: [The patient was taken to the operative suite and placed in supine position. The right neck and chest were prepped and draped in usual sterile fashion. A preprocedure timeout was performed. All parties are in agreement. He also was utilized and the internal jugular vein was identified. The skin overlying was anesthetized 1% lidocaine plain. Under direct visualization the vein was cannulated with return of dark venous nonpulsatile b lood. A guidewire was passed without any resistance. At that point the wire was left in place. The pocket for the port was anesthetized and created. Using blunt dissection and electrocautery, the pocket was created. The catheter was measured in length and cut to size. The catheter was then tunneled between the pocket and the access site. A dilator and removal sheath were placed. The inner cannula and wire were removed and the catheter was placed. It was cut to the appropriate size at the level of the pocket and attached to the port. It was accessed with good blood return and adequate flushing. The port was then sutured in place with 3-0 Prolene and placed in the pocket. The port was the skin and again aspirated and flushed freely. The area was then cleansed with antibiotic solution. The insertion site of the neck was reapproximated with interrupted sutures of 4-0 Monocryl. The pocket was reapproximated in the subcuticular space with 3-0 Vicryl. The skin was reapproximated with running 4- 0 Monocryl in subcuticular fashion. Skin glue was placed. The Billings needle was left in place with a piece of IV extension tubing and a dressing was placed. The patient was allowed awaken from anesthesia and transferred to PACU in stable condition having tolerated the procedure well. A post procedure chest x-ray is pending]
--- NOTE | 2019-10-16 15:12 | FL ---
Fluoroscopy HISTORY: Port-A-Cath insertion 16 seconds fluoroscopy time supplied to the referring clinician. 1 intraoperative C-arm images docum ent the procedure. See dictated report from vascular surgery.
[2019-10-16] MEDS ORDERED: HYDROmorphone 1 MG/ML 1 ML SYRINGE IVP ONE ×3 (15:20→15:34)
--- NOTE | 2019-10-16 15:47 | XR ---
EXAMINATION TYPE: XR chest 1V portable DATE OF EXAM: 10/16/2019 COMPARISON: Prior chest x-ray since 04/23/2019 HISTORY: Status post central venous catheter placement TECHNIQUE: Single frontal view of the chest is obtained. FINDINGS: There's been interval placement of a right jugular central venous catheter, port in the ri ght pectoral region, distal tip overlying the right atrium. Right-sided PICC line is present with the distal tip overlying the superior vena cava. Left-sided Port-A-Cath is. There is no pneumothorax, no pleural effusion. IMPRESSION: No evident complication status post Port-A-Cath placement.
[2019-10-16] MEDS ORDERED: HYDROmorphone 0.5 MG/0.5 ML SYRINGE IVP ONE (16:00)
[2019-10-16] MEDS: LACTATED RINGERS 1,000 ML IV SCH (16:49)
--- NOTE | 2019-10-16 17:02 | PN ---
PROGRESS NOTE DATE OF SERVICE: 10/15/2019 CHIEF COMPLAINT: DVT of the right arm. HISTORY OF PRESENT ILLNESS: This lady is waiting for surgery. She is scheduled tomorrow to have the port replaced in the right anterior chest. Other than that, she is doing well. She has had no fever, chills, pain in the arm, etc. PHYSICAL EXAMINATION: Color is good. Chest is clear. Cardiac exam is normal. The abdomen is soft, nontender. IMPRESSION: 1. DVT of the right arm. 2. Gastroparesis. PLAN: Replace port tomorrow. MMODL / IJN: [id number] /
[2019-10-16 17:14] LABS: Glucose,Whole Blood 237 mg/dL (75-99)
[2019-10-16] MEDS: FONDAPARINUX 2.5 MG/0.5 ML SYRINGE SQ SCH (18:16)
[2019-10-16] MEDS: FAT EMULSION 20% 250 ML in EMPTY BAG 1 BAG IV SCH (18:16)
[2019-10-16 23:54] LABS: Glucose,Whole Blood 183 mg/dL (75-99)
[2019-10-17] MEDS: HYDROmorphone 1 MG/ML 1 ML SYRINGE IVP PRN ×6 (00:30→17:22)
[2019-10-17] MEDS: 1: MVI, ADULT NO.4 WITH VIT K 10 ML, TRACE (CONC-1ML/DOSE) 1 ML, PARENTERAL ELECTROLYTES IV SCH ×4 (03:32)
[2019-10-17 05:35] LABS: Glucose,Whole Blood 156 mg/dL (75-99)
[2019-10-17] MEDS: LACTATED RINGERS 1,000 ML IV SCH (06:43)
[2019-10-17 07:39] LABS: African American GFR (CKD) >90 (>60 ml/min/1.73 sqM); Anion Gap 6 mmol/L; Blood Urea Nitrogen 15 mg/dL (7-17); Calcium 9.3 mg/dL (8.4-10.2); Carbon Dioxide 23 mmol/L (22-30); Chloride 108 mmol/L (98-107); Glucose 127 mg/dL (74-99); Non-African American GFR(CKD) >90 (>60 ml/min/1.73 sqM); Phosphorus 3.1 mg/dL (2.5-4.5); Potassium 4.4 mmol/L (3.5-5.1); Sodium 137 mmol/L (137-145)
[2019-10-17 07:55] VITALS: RESP 17
[2019-10-17] MEDS ORDERED: ASPIRIN 81 MG PO SCH (09:00)
[2019-10-17] MEDS: FONDAPARINUX 2.5 MG/0.5 ML SYRINGE SQ SCH (09:14)
[2019-10-17 12:04] LABS: Glucose,Whole Blood 110 mg/dL (75-99)
--- NOTE | 2019-10-17 13:42 | P.PN ---
Subjective Progress Note Date: 10/17/19 Patient seen and examined lying in bed. Patient is without any acute changes through the night. Patient denies any fever or chills. Patient is status post port placement for Dr. Hess. Right upper extremity PICC line still in place and receiving TPN. Patient is to be discharged home today with home care. Patient started oral anticoagulation yesterday. Objective - Vital Signs Vital signs: Vital Signs Temp 98.3 F 10/17/19 07:00 Pulse 86 10/17/19 07:00 Resp 17 10/17/19 07:00 BP 113/76 10/17/19 07:00 Pulse Ox 97 10/17/19 07:00 Intake & Output 10/16/19 10/17/19 10/17/19 18:59 06:59 18:59 Intake Total 1782 Output Total 5 Balance 1777 Intake: IV 751 Intake, IV Titration 1031 Amount Mvi, Adult No.4 with Vit 1031 K 10 ml Trace (Conc-1Ml/ Dose) 1 ml Parenteral Electrolytes 20 ml In Amino Acid 4.25%-D10w 1, 000 ml @ 60 mls/hr IV .BY DURATION [facility] Rx#: [id number] Output: Estimated Blood Loss 5 - Exam General appearance: The patient is alert, oriented, in no acute distress. HET: Head is normocephalic and atraumatic. Neck: Supple without lymphadenopathy. Trachea midline. Chest: Poor with intact dressing to right upper chest. Heart: S1 S2. Regular rate and rhythm. Lungs: No crackles or wheezes are heard. Extremities: Normal skin color and turgor. No cyanosis, rash, ulceration, clubbing, or edema. Radial pulses are 2/4 bilaterally. Minimal tenderness to palpation under right axilla. Neurological: No focal deficits. Strength and sensation are grossly intact. - Labs CBC & Chem 7: 10/13/19 06:33 10/17/19 06:51 Labs: Abnormal Lab Results - Last 24 Hours (Table) 10/16/19 10/16/19 10/17/19 Range/Units 17:12 23:53 05:34 Chloride (98-107) mmol/L Glucose (74-99) mg/dL POC Glucose (mg/dL) 237 H 183 H 156 H (75-99) mg/dL 10/17/19 10/17/19 Range/Units 06:51 12:03 Chloride 108 H (98-107) mmol/L Glucose 127 H (74-99) mg/dL POC Glucose (mg/dL) 110 H (75-99) mg/dL Assessment and Plan Assessment: 1. Right upper extremity deep vein thrombosis 2. History of pulmonary embolism and bilateral upper extremity deep vein thrombosis 3. Gastroparesis requiring TPA through PICC line, also has PEG tube which is gradually being used. 4. Status post port placement Plan: No further interventions indicated per vascular surgery. Port was placed yesterday, x-ray reviewed and showed good placement. Patient is cleared for discharge by vascular surgery. Follow recommendations per hematology for anticoagulation. Patient to follow-up with Dr. Hess in 2 weeks. The above dictated assessment and findings were discussed with Dr. Hess. The impression and plan of care have been directed as dictated.
--- NOTE | 2019-10-17 16:00 | PN ---
PROGRESS NOTE DATE OF SERVICE: 10/17/2019. CHIEF COMPLAINT: DVT of the right arm. HISTORY OF PRESENT ILLNESS: This lady is doing well. Her port was placed yesterday. She is having a little bit of discomfort. We are now waiting for Hematology to make a decision regarding what anticoagulation she will go home with. She is otherwise doing well. PHYSICAL EXAMINATION: Chest is clear. The cardiac exam is normal. The abdomen is soft, nontender. Extremities are normal. The port site is dry and not bleeding. IMPRESSION: 1. DVT of the right arm. 2. Gastroparesis. PLAN: Home when cleared by Hematology. MMODL / IJN: [id number] /
--- NOTE | 2019-10-17 16:05 | PN ---
PROGRESS NOTE DATE OF SERVICE: 10/16/2019 CHIEF COMPLAINT: DVT right arm. HISTORY OF PRESENT ILLNESS: This lady is going for placement of HER port today and she is doing well. PHYSICAL EXAMINATION: Chest is clear. Cardiac exam is normal. She is afebrile. Abdomen is soft. IMPRESSION: DVT right arm. PLAN: Surgery today for placement of new port in the right anterior chest. MMODL / IJN: [id number] /
[2019-10-17 16:09] VITALS: BP 128/76; PULSE 83; TEMP 98.5
[2019-10-17] MEDS: FAT EMULSION 20% 250 ML in EMPTY BAG 1 BAG IV SCH (17:27)
== END 2019-10-17 20:45 | disposition home or self-care (01) | DRG 315 ==
LOC: EC 14:22 → 4SSUR 18:02
PROVIDERS: ADMIT Family Medicine; ATTEND Family Medicine
PROC: 3E0436Z Introduction of Nutritional Substance into Central Vein, Percutaneous Approach (ICD-10-PCS; principal; 2019-10-16 12:45)
PROC: 0JH63WZ Insertion of Totally Implantable Vascular Access Device into Chest Subcutaneous Tissue and Fascia, Percutaneous Approach (ICD-10-PCS; principal; 2019-10-16 12:45)
PROC: 02HV33Z Insertion of Infusion Device into Superior Vena Cava, Percutaneous Approach (ICD-10-PCS; principal; 2019-10-16 12:45)
DX: T82.868A Thrombosis due to vascular prosthetic devices, implants and grafts, initial encounter (principal); K55.1 Chronic vascular disorders of intestine; I82.A19 Acute embolism and thrombosis of unspecified axillary vein; I82.B11 Acute embolism and thrombosis of right subclavian vein; K91.2 Postsurgical malabsorption, not elsewhere classified; K95.89 Other complications of other bariatric procedure; Y84.8 Other medical procedures as the cause of abnormal reaction of the patient, or of later complication, without mention of misadventure at the time of the procedure; K31.84 Gastroparesis; D50.9 Iron deficiency anemia, unspecified; E03.9 Hypothyroidism, unspecified; F32.9 Major depressive disorder, single episode, unspecified; K21.9 Gastro-esophageal reflux disease without esophagitis; Z90.49 Acquired absence of other specified parts of digestive tract; Z93.1 Gastrostomy status; G43.909 Migraine, unspecified, not intractable, without status migrainosus; Z11.59 Encounter for screening for other viral diseases; Z79.01 Long term (current) use of anticoagulants; Z79.890 Hormone replacement therapy; Z79.899 Other long term (current) drug therapy; Z82.49 Family history of ischemic heart disease and other diseases of the circulatory system; Z86.711 Personal history of pulmonary embolism; Z86.718 Personal history of other venous thrombosis and embolism; Z98.84 Bariatric surgery status
CPT/HCPCS: 71045; 77001; 80048; 80053; 82330; 83735; 84100; 84478; 85025; 85610; 85730; 99284

== ENCOUNTER 2019-10-19 13:13 | Emergency (ER) | payer BC ==
--- NOTE | 2019-10-19 13:40 | ED ---
General Adult HPI - General Chief complaint: Recheck/Abnormal Lab/Rx Stated complaint: Port issues Time Seen by Provider: 10/19/19 13:27 Source: patient, family, RN notes reviewed Mode of arrival: ambulatory Limitations: no limitations - History of Present Illness Initial comments: Patient is a pleasant 39-year-old female presenting to the emergency department with discomfort around her MediPort. Patient had displaced 3 days ago. Patient did have bandage changed 2 days ago. Port is accessed however has not been used. They did notice some blood near the bandage site. Patient has had having some discomfort that is slightly increasing since the port was placed. No fevers. No dyspnea. Patient had port placed secondary to concerns with malnut rition secondary to gastroparesis. - Related Data Home Medications Medication Instructions Recorded Confirmed Montelukast Chew [Singulair] 10 mg PO DAILY 02/02/18 10/19/19 Topiramate [Trokendi Xr] 50 mg PO HS 07/18/18 10/19/19 Prucalopride Succinate [Motegrity] 2 mg PO DAILY 01/14/19 10/19/19 oxyCODONE HCL [oxyCODONE HCL (IR)] 10 mg PO Q6H PRN 04/20/19 10/19/19 Linaclotide [Linzess] 290 mcg PO DAILY 05/24/19 10/19/19 Tegaserod Hydrogen Maleate 6 mg PO AC-BID 05/24/19 10/19/19 [Zelnorm] Lansoprazole 30 mg PO BID 08/27/19 10/19/19 Levothyroxine Sodium [Synthroid] 100 mcg PO DAILY 10/04/19 10/19/19 Previous Rx's Medication Instructions Recorded Scopolamine 1.5MG/72Hr Patch 1 patch TRANSDERM Q72H #10 patch 07/31/18 [TransDerm Scop] Aspirin 81 mg PO DAILY 30 Days chewable 10/16/19 Fondaparinux Sodium [Arixtra] 7.5 mg SQ DAILY #30 ml 10/16/19 Allergies Allergy/AdvReac Type Severity Reaction Status Date / Time metoclopramide [From Reglan] AdvReac Mild jittery Verified 10/19/19 14:03 prochlorperazine AdvReac Mild JITTERY Verified 10/19/19 14:03 [From Compazine] Review of Systems ROS Statement: Those systems with pertinent positive or pertinent negative responses have been documented in the HPI. ROS Other: All systems not noted in ROS Statement are negative. Constitutional: Denies: fever Eyes: Denies: eye pain ENT: Denies: ear pain Respiratory: Denies: cough, dyspnea Cardiovascular: Reports: as per HPI Endocrine: Denies: fatigue Gastrointestinal: Denies: abdominal pain Genitourinary: Denies: dysuria Musculoskeletal: Denies: back pain Skin: Reports: as per HPI Neurological: Denies: weakness Past Medical History Past Medical History: Deep Vein Thrombosis (DVT), GERD/Reflux, Pulmonary Embolus (PE), Thyroid Disorder Additional Past Medical History / Comment(s): Other hx:Idiopathic gastroparesis, takes little in orally-has J tube for feedings-currently on hold and receiving TPN, chronic abdominal pain, R pulmonary embolism -2017, dvt R upper extremity 2018, pancreatitis once in 2018-thought stone somewhere, hypothyroid, chronic anemia, sinus problems, migraine. 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 J tube replaced-last replace in November or December 2018, piccs, mediport insertion Past Anesthesia/Blood Transfusion Reactions: No Reported Reaction Past Psychological History: Depression Smoking Status: Never smoker Past Alcohol Use History: None Reported Past Drug Use History: None Reported - Past Family History Father Family Medical History: Hypertension Additional Family Medical History / Comment(s): Father is 57 yrs old.. Mother Family Medical History: No Reported History Additional Family Medical History / Comment(s): Mother is 57yrs old. General Exam Limitations: no limitations General appearance: alert, in no apparent distress Head exam: Present: normocephalic Eye exam: Present: normal appearance Respiratory exam: Present: normal lung sounds bilaterally, chest wall tenderness (Mild tenderness superior to Mediport placement.) Cardiovascular Exam: Present: regular rate, normal rhythm GI/Abdominal exam: Present: soft. Absent: tenderness Extremities exam: Present: normal inspection Neurological exam: Present: alert Psychiatric exam: Present: normal affect, normal mood Skin exam: Present: other (Mediport with Tegaderm right upper chest. There is mild amount of blood on the gauze.) Course Vital Signs 10/19/19 13:22 Temperature 98.4 F Pulse Rate 111 H Respiratory 20 Rate Blood Pressure 134/78 O2 Sat by Pulse 99 Oximetry Medical Decision Making - Medical Decision Making Patient was evaluated by Dr. Hess in the emergency department who did not feel need for further treatment or evaluation. She is okay with removing the Billings needle which patient and family did request. This has been in there for a couple of days now. - Radiology Data Radiology results: image reviewed (Chest x-ray shows no acute process) Disposition Clinical Impression: Postoperative pain Disposition: HOME SELF-CARE Condition: Stable Additional Instructions: Please follow-up with Dr. Hess in the next couple days for recheck. Please also follow-up to primary care physician in the next couple days for recheck. Return for fever, redness, increased pain or swelling, worsening symptoms or any other concerns. Is patient prescribed a controlled substance at d/c from ED?: No Referrals: Wong Adame MD [Primary Care Provider] - 1-2 days Flor Hess DO [STAFF PHYSICIAN] - 1-2 days Time of Disposition: 15:21
--- NOTE | 2019-10-19 13:58 | XR ---
EXAMINATION TYPE: XR chest 2V DATE OF EXAM: 10/19/2019 COMPARISON: 10/16/2019 HISTORY: Chest pain TECHNIQUE: Frontal and lateral views of the chest are obtained. FINDINGS: There is no focal air space opacity. No evidence for pneumothorax. No pleural effusion. The cardiac silhouette size is within normal limits. The osseous structures are grossly intact. Right-sided MediPort catheter with its distal tip overlyin g the SVC appears unchanged relative to the prior study. Previous PICC line has been removed. IMPRESSION: 1. No acute cardiopulmonary process.
[2019-10-19 15:21] VITALS: BP 116/83; PULSE 98; RESP 18; TEMP 98.2
== END 2019-10-19 15:39 | disposition home or self-care (01) ==
LOC: EC 13:13
DX: G89.18 Other acute postprocedural pain (principal); T82.594A Other mechanical complication of infusion catheter, initial encounter; K21.9 Gastro-esophageal reflux disease without esophagitis; E07.9 Disorder of thyroid, unspecified; E03.9 Hypothyroidism, unspecified; F32.9 Major depressive disorder, single episode, unspecified; K31.84 Gastroparesis; Z79.890 Hormone replacement therapy; Z79.899 Other long term (current) drug therapy; Z88.8 Allergy status to other drugs, medicaments and biological substances; Z86.711 Personal history of pulmonary embolism; Z86.718 Personal history of other venous thrombosis and embolism; Z93.1 Gastrostomy status
CPT/HCPCS: 71046; 99283; 96374; J1642

== ENCOUNTER 2019-10-19 22:25 | Emergency (ER) | payer BC ==
--- NOTE | 2019-10-19 23:39 | ED ---
Recheck HPI - General Chief Complaint: Recheck/Abnormal Lab/Rx Stated Complaint: Port Problem Time Seen by Provider: 10/19/19 23:00 Source: patient Mode of arrival: ambulatory Limitations: no limitations - History of Present Illness Initial Comments: This patient is a 39-year-old woman who presents to be evaluated for suspected hematoma of the right upper chest wall. The patient did have a Mediport placed on October [address] Hess. The Mediport also had a Billings needle in it and the patient was seen in the emergency department and evaluated by Dr. Hess this afternoon for some swelling at the Mediport site. Given the possibility of bleeding there the Billings needle was discontinued and the patient was then felt stable to go home. The patient states she is had continued swelling and there is some pain associated so she presents to have this rechecked. Patient denies fever or chills, no other chest pain or dyspnea. No right upper extremity sy mptoms. The patient does take Arixtra as an anticoagulant given her history of multiple DVT/PE. MD Complaint: wound re-check -: hour(s) Initial Visit For: other (Hematoma) Returns Today for: wound recheck Symptoms Since Prior Visit: worsening swelling Associated Symptoms: none - Related Data Home Medications Medication Instructions Recorded Confirmed Montelukast Chew [Singulair] 10 mg PO DAILY 02/02/18 10/19/19 Topiramate [Trokendi Xr] 50 mg PO HS 07/18/18 10/19/19 Prucalopride Succinate [Motegrity] 2 mg PO DAILY 01/14/19 10/19/19 oxyCODONE HCL [oxyCODONE HCL (IR)] 10 mg PO Q6H PRN 04/20/19 10/19/19 Linaclotide [Linzess] 290 mcg PO DAILY 05/24/19 10/19/19 Tegaserod Hydrogen Maleate 6 mg PO AC-BID 05/24/19 10/19/19 [Zelnorm] Lansoprazole 30 mg PO BID 08/27/19 10/19/19 Levothyroxine Sodium [Synthroid] 100 mcg PO DAILY 10/04/19 10/19/19 Previous Rx's Medication Instructions Recorded Scopolamine 1.5MG/72Hr Patch 1 patch TRANSDERM Q72H #10 patch 07/31/18 [TransDerm Scop] Aspirin 81 mg PO DAILY 30 Days chewable 10/16/19 Fondaparinux Sodium [Arixtra] 7.5 mg SQ DAILY #30 ml 10/16/19 Allergies Allergy/AdvReac Type Severity Reaction Status Date / Time metoclopramide [From Reglan] AdvReac Mild jittery Verified 10/19/19 23:39 prochlorperazine AdvReac Mild JITTERY Verified 10/19/19 23:39 [From Compazine] Review of Systems ROS Statement: Those systems with pertinent positive or pertinent negative responses have been documented in the HPI. ROS Other: All systems not noted in ROS Statement are negative. Constitutional: Denies: fever, chills Respiratory: Denies: cough, dyspnea Cardiovascular: Denies: chest pain, palpitations, edema Skin: Denies: rash Hematological/Lymphatic: Reports: as per HPI (Taking Arixtra) Past Medical History Past Medical History: Deep Vein Thrombosis (DVT), GERD/Reflux, Pulmonary Embolus (PE), Thyroid Disorder Additional Past Medical History / Comment(s): Other hx:Idiopathic gastroparesis, takes little in orally-has J tube for feedings-currently on hold and receiving TPN, chronic abdominal pain, R pulmonary embolism 5-2017, dvt R upper extremity 2019, pancreatitis once in 2018-thought stone somewhere, hypothyroid, chronic anemia, sinus problems, migraine. 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 J tube replaced-last replace in November or December 2018, piccs, mediport insertion Past Anesthesia/Blood Transfusion Reactions: No Reported Reaction Past Psychological History: Depression Smoking Status: Never smoker Past Alcohol Use History: None Reported Past Drug Use History: None Reported - Past Family History Father Family Medical History: Hypertension Additional Family Medical History / Comment(s): Father is 57 yrs old.. Mother Family Medical History: No Reported History Additional Family Medical History / Comment(s): Mother is 57yrs old. General Exam Limitations: no limitations General appearance: alert, in no apparent distress Respiratory exam: Present: normal lung sounds bilaterally. Absent: respiratory distress, wheezes, rales, rhonchi, stridor Cardiovascular Exam: Present: regular rate, normal rhythm, normal heart sounds, other (The patient's insertion site is closed dry and intact. There is no abnor mal warmth or erythema suggestive of secondary infection. There is a small amount of ecchymosis and there is a 2.5 cm area of fullness suggestive of hematoma overlying the port site. Moderate tenderness.). Absent: systolic murmur, diastolic murmur, rubs, gallop GI/Abdominal exam: Present: soft. Absent: tenderness Skin exam: Present: warm, dry, intact, normal color. Absent: rash Course Vital Signs 10/19/19 10/20/19 22:27 00:44 Temperature 98.3 F 98.1 F Pulse Rate 98 91 Respiratory 20 18 Rate Blood Pressure 124/88 122/73 O2 Sat by Pulse 99 99 Oximetry Medical Decision Making - Medical Decision Making This patient is a 39-year-old woman presenting with small hematoma at the site of her Mediport placement. The case is discussed with her vascular surgeon Dr. Hess. Treatment recommendations are incorporated and patient will follow-up Disposition Clinical Impression: Hematoma Disposition: HOME SELF-CARE Condition: Good Instructions (If sedation given, give patient instructions): Hematoma (ED) Is patient prescribed a controlled substance at d/c from ED?: No Referrals: Wong Adame MD [Primary Care Provider] - 1-2 days Flor Hess DO [STAFF PHYSICIAN] - 1-2 days
--- NOTE | 2019-10-20 00:14 | US ---
EXAMINATION TYPE: US mass soft tissue chest/back DATE OF EXAM: 10/19/2019 COMPARISON: NONE CLINICAL HISTORY: hematoma. Patient has port in upper chest for PTN. Today a bruise developed at port site. Patient is on blood thinners. Scanning was performed directly over bruising. There is a hypoechoic area without any vascular flow t hat shows what appears to be part of line inside. The line can also be seen extending upward towards neck but does not appear to be inside a vessel. IMPRESSION: There is 2 cm rounded area that is decreased in echogenicity around the port catheter reilly t could be a hematoma or blood clot..
[2019-10-20 00:46] VITALS: BP 122/73; PULSE 91; RESP 18; TEMP 98.1
== END 2019-10-20 00:46 | disposition home or self-care (01) ==
LOC: EC 22:25
DX: L76.32 Postprocedural hematoma of skin and subcutaneous tissue following other procedure (principal); K21.9 Gastro-esophageal reflux disease without esophagitis; E07.9 Disorder of thyroid, unspecified; Z86.711 Personal history of pulmonary embolism; Z86.718 Personal history of other venous thrombosis and embolism; Z79.890 Hormone replacement therapy; Z79.51 Long term (current) use of inhaled steroids; Z79.899 Other long term (current) drug therapy; Z88.8 Allergy status to other drugs, medicaments and biological substances
CPT/HCPCS: 99283

== ENCOUNTER 2019-12-06 19:24 | Emergency (ER) | payer BC ==
[2019-12-06 19:31] VITALS: TEMP 98.2
[2019-12-06] MEDS ORDERED: HYDROmorphone 0.5 MG/0.5 ML SYRINGE IVP STA (20:07)
--- NOTE | 2019-12-06 20:07 | ED ---
General Adult HPI - General Source: patient, RN notes reviewed Mode of arrival: ambulatory Limitations: no limitations <Errol Tavarez - Last Filed: 12/06/19 20:07> <Ciara Howard - Last Filed: 12/07/19 16:23> - General Chief complaint: Skin/Abscess/Foreign Body Stated complaint: Infection around feeding tube Time Seen by Provider: 12/06/19 19:41 - History of Present Illness Initial comments: 39-year-old female presents to the emergency department for pain around G-tube site. Patient reports that she has irritation around the site. States her infectious disease doctor told her to use a barrier cream that usually helps but has not been helping lately. Patient has not tried anything else. Patient denies fevers or chills. Denies any spreading redness. Denies purulent drainage. Patient reports that she is going out of town tomorrow so once is taking care of today. She states she would've called her surgeon but he is out of the office.Patient has no other complaints at this time including shortness of breath, chest pain, abdominal pain, nausea or vomiting, headache, or visual changes. (Errol Tavarez) - Related Data Home Medications Medication Instructions Recorded Confirmed Montelukast Chew [Singulair] 10 mg PO DAILY 02/02/18 10/19/19 Topiramate [Trokendi Xr] 50 mg PO HS 07/18/18 10/19/19 Prucalopride Succinate [Motegrity] 2 mg PO DAILY 01/14/19 10/19/19 oxyCODONE HCL [oxyCODONE HCL (IR)] 10 mg PO Q6H PRN 04/20/19 10/19/19 Linaclotide [Linzess] 290 mcg PO DAILY 05/24/19 10/19/19 Tegaserod Hydrogen Maleate 6 mg PO AC-BID 05/24/19 10/19/19 [Zelnorm] Lansoprazole 30 mg PO BID 08/27/19 10/19/19 Levothyroxine Sodium [Synthroid] 100 mcg PO DAILY 10/04/19 10/19/19 Previous Rx's Medication Instructions Recorded Scopolamine 1.5MG/72Hr Patch 1 patch TRANSDERM Q72H #10 patch 07/31/18 [TransDerm Scop] Aspirin 81 mg PO DAILY 30 Days chewable 10/16/19 Fondaparinux Sodium [Arixtra] 7.5 mg SQ DAILY #30 ml 10/16/19 Cephalexin [Keflex] 500 mg PO Q6HR 10 Days #40 cap 12/06/19 Allergies Allergy/AdvReac Type Severity Reaction Status Date / Time metoclopramide [From Reglan] AdvReac Mild jittery Verified 12/06/19 19:31 prochlorperazine AdvReac Mild JITTERY Verified 12/06/19 19:31 [From Compazine] Review of Systems ROS Other: All systems not noted in ROS Statement are negative. <Errol Tavarez P - Last Filed: 12/06/19 20:07> ROS Other: All systems not noted in ROS Statement are negative. <Ciara Howard - Last Filed: 12/07/19 16:23> ROS Statement: Those systems with pertinent positive or pertinent negative responses have been documented in the HPI. Past Medical History Past Medical History: Deep Vein Thrombosis (DVT), GERD/Reflux, Pulmonary Embolus (PE), Thyroid Disorder Additional Past Medical History / Comment(s): Other hx:Idiopathic gastroparesis, takes little in orally-has J tube for feedings-currently on hold and receiving TPN, chronic abdominal pain, R pulmonary embolism 5-2017, dvt R upper extremity 2018, pancreatitis once in 2018-thought stone somewhere, hypothyroid, chronic anemia, sinus problems, migraine. 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 J tube replaced-last replace in November or December 2018, piccs, mediport insertion Past Anesthesia/Blood Transfusion Reactions: No Reported Reaction Past Psychological History: Depression Smoking Status: Never smoker Past Alcohol Use History: None Reported Past Drug Use History: None Reported - Past Family History Father Family Medical History: Hypertension Additional Family Medical History / Comment(s): Father is 57 yrs old.. Mother Family Medical History: No Reported History Additional Family Medical History / Comment(s): Mother is 57yrs old. <Errol Tavarez - Last Filed: 12/06/19 20:07> General Exam Limitations: no limitations General appearance: alert, in no apparent distress Head exam: Present: atraumatic, normocephalic, normal inspection Eye exam: Present: normal appearance, PERRL, EOMI. Absent: scleral icterus, conjunctival injection, periorbital swelling ENT exam: Present: normal exam, mucous membranes moist Neck exam: Present: normal inspection. Absent: tenderness, meningismus, lymphadenopathy Respiratory exam: Present: normal lung sounds bilaterally. Absent: respiratory distress, wheezes, rales, rhonchi, stridor Cardiovascular Exam: Present: regular rate, normal rhythm, normal heart sounds. Absent: systolic murmur, diastolic murmur, rubs, gallop, clicks GI/Abdominal exam: Present: soft, normal bowel sounds, other (Skin breakdown noted around G-tube site with small ulcerations. There is no evidence of cellulitis or infection at this time.). Absent: distended, tenderness, guarding, rebound, rigid <Errol Tavarez - Last Filed: 12/06/19 20:07> Course Vital Signs 12/06/19 12/06/19 19:29 20:31 Temperature 98.2 F Pulse Rate 114 H 84 Respiratory 20 16 Rate Blood Pressure 117/86 150/84 O2 Sat by Pulse 99 100 Oximetry Medical Decision Making <Errol Tavarez - Last Filed: 12/06/19 20:07> <Ciara Howard - Last Filed: 12/07/19 16:23> - Medical Decision Making Physical exam ulcerations around the G-tube site from kin breakdown. Patient has applying barrier cream. I recommended nystatin powder at this time which patient states she has at home and can use. I did write perception for antibiotics as there are some shallow open ulcers and patient has struggled with infection of this site before. Although there is no infection at this time Keflex was prescribed prophylactically. Patient will follow up with her surgeon. She will return here for any worsening symptoms or fevers. (Errol Tavarez) I was available for consultation in the emergency department. The history and physical exam were done by the midlevel provider. I was consulted for this patients care. I reviewed the case with the midlevel provider and based on their presentation of the patient, I agree with the assessment, medical decision making and plan of care as documented. Chart was dictated using [employer] dictation software. Attempts were made to correct any dictation errors however some typographical errors may persist. Patient was seen during a national state of emergency due to the Covid-19 pandemic. (Ciara Howard) Disposition Is patient prescribed a controlled substance at d/c from ED?: No Time of Disposition: 20:03 <Errol Tavarez - Last Filed: 12/06/19 20:07> <Ciara Howard - Last Filed: 12/07/19 16:23> Clinical Impression: Peristomal skin irritation and breakdown Disposition: HOME SELF-CARE Condition: Good Instructions (If sedation given, give patient instructions): How to Use and Care for Your PEG Tube (ED) Additional Instructions: Please use antibiotic as directed. Use nystatin powder 3 times daily. Follow- up with your surgeon. Return to the emergency room for any worsening symptoms. Prescriptions: Cephalexin [Keflex] 500 mg PO Q6HR 10 Days #40 cap Referrals: Wong Adame MD [Primary Care Provider] - 1-2 days
[2019-12-06 20:33] VITALS: BP 150/84; PULSE 84; RESP 16
== END 2019-12-06 20:33 | disposition home or self-care (01) ==
LOC: EC 19:24
DX: K94.23 Gastrostomy malfunction (principal); T85.848A Pain due to other internal prosthetic devices, implants and grafts, initial encounter; F32.9 Major depressive disorder, single episode, unspecified; E03.9 Hypothyroidism, unspecified; Z79.51 Long term (current) use of inhaled steroids; Z79.899 Other long term (current) drug therapy; Z88.8 Allergy status to other drugs, medicaments and biological substances; Z86.718 Personal history of other venous thrombosis and embolism; Z86.711 Personal history of pulmonary embolism
CPT/HCPCS: 99282; 96374; J1170

== ENCOUNTER 2019-12-30 10:49 | Inpatient (IN) | payer BC ==
[2019-12-30] MEDS ORDERED: diphenhydrAMINE 50 MG/ML 1 ML VIAL IVP STA (11:20)
[2019-12-30] MEDS ORDERED: SODIUM CHLORIDE 0.9% 1,000 ML IV STA ×2 (11:20)
[2019-12-30] MEDS ORDERED: METOCLOPRAMIDE 5 MG/ML 2 ML VIAL IVP STA (11:20)
[2019-12-30] MEDS ORDERED: HYDROmorphone 1 MG/ML 1 ML SYRINGE IVP STA ×2 (11:20→12:42)
[2019-12-30] MEDS ORDERED: PANTOPRAZOLE 40 MG/10 ML VIAL IVP STA (11:20)
[2019-12-30] MEDS ORDERED: SODIUM CHLORIDE 0.9% 500 ML 500 ML IV STA (11:20)
--- NOTE | 2019-12-30 11:22 | ED ---
Nausea/Vomiting/Diarrhea HPI - General Chief complaint: Nausea/Vomiting/Diarrhea Stated complaint: Vomiting Time Seen by Provider: 12/30/19 11:12 Source: patient, RN notes reviewed, old records reviewed Mode of arrival: ambulatory Limitations: no limitations - History of Present Illness Initial comments: This is a 39-year-old female well-known to this emergency department, long history of bowel issues. Surgeries. Patient going for persistent nausea and vomiting weakness abdominal pain mainly right upper quadrant and not feeling well. No known sick contacts no travel history no fevers. No diarrhea no blood in the vomit or stool MD complaint: nausea, vomiting, diarrhea, abdominal pain -: days(s) Description of Vomiting: food contents, watery Description of Diarrhea: water Associated Abdominal Pain: Yes Location: RUQ Severity: moderate Severity scale (1-10): 4 Quality: cramping, aching Consistency: intermittent Improves with: none Worsens with: eating Associated Symptoms: loss of appetite, malaise, nausea/vomiting, weakness - Related Data Home Medications Medication Instructions Recorded Confirmed Montelukast Chew [Singulair] 10 mg PO DAILY 02/02/18 10/19/19 Topiramate [Trokendi Xr] 50 mg PO HS 07/18/18 10/19/19 Prucalopride Succinate [Motegrity] 2 mg PO DAILY 01/14/19 10/19/19 oxyCODONE HCL [oxyCODONE HCL (IR)] 10 mg PO Q6H PRN 04/20/19 10/19/19 Linaclotide [Linzess] 290 mcg PO DAILY 05/24/19 10/19/19 Tegaserod Hydrogen Maleate 6 mg PO AC-BID 05/24/19 10/19/19 [Zelnorm] Lansoprazole 30 mg PO BID 08/27/19 10/19/19 Levothyroxine Sodium [Synthroid] 100 mcg PO DAILY 10/04/19 10/19/19 Previous Rx's Medication Instructions Recorded Scopolamine 1.5MG/72Hr Patch 1 patch TRANSDERM Q72H #10 patch 07/31/18 [TransDerm Scop] Aspirin 81 mg PO DAILY 30 Days chewable 10/16/19 Fondaparinux Sodium [Arixtra] 7.5 mg SQ DAILY #30 ml 10/16/19 Cephalexin [Keflex] 500 mg PO Q6HR 10 Days #40 cap 12/06/19 Allergies Allergy/AdvReac Type Severity Reaction Status Date / Time metoclopramide [From Reglan] AdvReac Mild jittery Verified 12/30/19 11:07 prochlorperazine AdvReac Mild JITTERY Verified 12/30/19 11:07 [From Compazine] Review of Systems ROS Statement: Those systems with pertinent positive or pertinent negative responses have been documented in the HPI. ROS Other: All systems not noted in ROS Statement are negative. Past Medical History Past Medical History: Deep Vein Thrombosis (DVT), GERD/Reflux, Pulmonary Embolus (PE), Thyroid Disorder Additional Past Medical History / Comment(s): Other hx:Idiopathic gastroparesis, takes little in orally-has J tube for feedings-currently on hold and receiving TPN, chronic abdominal pain, R pulmonary embolism -2017, dvt R upper extremity 2018, pancreatitis once in 2018-thought stone somewhere, hypothyroid, chronic anemia, sinus problems, migraine. 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 J tube replaced-last replace in November or December 2018, piccs, mediport insertion Past Anesthesia/Blood Transfusion Reactions: No Reported Reaction Past Psychological History: Depression Smoking Status: Never smoker Past Alcohol Use History: None Reported Past Drug Use History: None Reported - Past Family History Father Family Medical History: Hypertension Additional Family Medical History / Comment(s): Father is 57 yrs old.. Mother Family Medical History: No Reported History Additional Family Medical History / Comment(s): Mother is 57yrs old. General Exam Limitations: no limitations General appearance: alert, in no apparent distress Head exam: Present: atraumatic, normocephalic, normal inspection Eye exam: Present: normal appearance, PERRL, EOMI. Absent: scleral icterus, conjunctival injection, periorbital swelling ENT exam: Present: normal exam, mucous membranes moist Neck exam: Present: normal inspection. Absent: tenderness, meningismus, lymphadenopathy Respiratory exam: Present: normal lung sounds bilaterally. Absent: respiratory distress, wheezes, rales, rhonchi, stridor Cardiovascular Exam: Present: regular rate, normal rhythm, normal heart sounds. Absent: systolic murmur, diastolic murmur, rubs, gallop, clicks GI/Abdominal exam: Present: soft, normal bowel sounds. Absent: distended, tenderness, guarding, rebound, rigid Extremities exam: Present: normal inspection, full ROM, normal capillary refill. Absent: tenderness, pedal edema, joint swelling, calf tenderness Back exam: Present: normal inspection Neurological exam: Present: alert, oriented X3, CN II-XII intact Psychiatric exam: Present: normal affect, normal mood Skin exam: Present: warm, dry, intact, normal color. Absent: rash Course Vital Signs 12/30/19 11:07 Temperature 98.4 F Pulse Rate 104 H Respiratory 20 Rate Blood Pressure 111/73 O2 Sat by Pulse 100 Oximetry - Reevaluation(s) Reevaluation #1: 12/30/19 13:17 Medical record is reviewed Reevaluation #2: 12/30/19 13:17 Patient still does have significant nausea vomiting, abdominal pain severe Reevaluation #3: 12/30/19 13:17 Spoke with patient informed of results, questions answered - Consultations Consultation #1: Spoke with Dr. Adame were okay to admit Medical Decision Making - Medical Decision Making 39 female to the ER for evaluation patient Dese for evaluation regards to abdominal pain nausea vomiting intractable nausea and vomiting as well as abdominal pain. Patient has history of Onesimo brower Dr. for further evaluation management - Lab Data Result diagrams: 12/30/19 11:40 12/30/19 11:40 Lab Results 12/30/19 12/30/19 Range/Units 11:40 11:40 WBC 8.9 (3.8-10.6) k/uL RBC 5.33 (3.80-5.40) m/uL Hgb 14.3 (11.4-16.0) gm/dL Hct 43.9 (34.0-46.0) % MCV 82.4 (80.0-100.0) fL MCH 26.7 (25.0-35.0) pg MCHC 32.5 (31.0-37.0) g/dL RDW 17.6 H (11.5-15.5) % Plt Count 420 (150-450) k/uL Neutrophils % 70 % Lymphocytes % 22 % Monocytes % 4 % Eosinophils % 2 % Basophils % 1 % Neutrophils # 6.2 (1.3-7.7) k/uL Lymphocytes # 2.0 (1.0-4.8) k/uL Monocytes # 0.4 (0-1.0) k/uL Eosinophils # 0.2 (0-0.7) k/uL Basophils # 0.1 (0-0.2) k/uL Anisocytosis Slight Sodium 140 (137-145) mmol/L Potassium 4.3 (3.5-5.1) mmol/L Chloride 108 H (98-107) mmol/L Carbon Dioxide 23 (22-30) mmol/L Anion Gap 9 mmol/L BUN 11 (7-17) mg/dL Creatinine 0.82 (0.52-1.04) mg/dL Est GFR (CKD-EPI)AfAm >90 (>60 ml/min/1.73 sqM) Est GFR (CKD-EPI)NonAf >90 (>60 ml/min/1.73 sqM) Glucose 90 (74-99) mg/dL Calcium 9.8 (8.4-10.2) mg/dL Phosphorus 4.2 (2.5-4.5) mg/dL Magnesium 2.1 (1.6-2.3) mg/dL Total Bilirubin 0.3 (0.2-1.3) mg/dL AST 19 (14-36) U/L ALT 30 (4-34) U/L Alkaline Phosphatase 117 (38-126) U/L Total Protein 7.0 (6.3-8.2) g/dL Albumin 4.4 (3.5-5.0) g/dL Disposition Clinical Impression: Abdominal pain, Acute gastroenteritis, Intractable nausea and vomiting, Intractable abdominal pain Disposition: ADMITTED IP TO THIS HOSP Condition: Good Is patient prescribed a controlled substance at d/c from ED?: No Referrals: Wong Adame MD [Primary Care Provider] - 1-2 days
[2019-12-30] MEDS ORDERED: PROMETHAZINE INJ 25 MG in SODIUM CHLORIDE 0.9% 50 ML IVPB STA (11:45)
[2019-12-30 11:58] LABS: Anisocytosis Slight; Basophils # (A) 0.1 k/uL (0-0.2); Basophils % (A) 1 %; Eosinophils # (A) 0.2 k/uL (0-0.7); Eosinophils % (A) 2 %; HCT 43.9 % (34.0-46.0); HGB 14.3 gm/dL (11.4-16.0); Lymphocytes % (A) 22 %; MCH 26.7 pg (25.0-35.0); MCHC 32.5 g/dL (31.0-37.0); MCV 82.4 fL (80.0-100.0); Mean Platelet Volume 6.8; Monocytes # (A) 0.4 k/uL (0-1.0); Monocytes % (A) 4 %; Neutrophils # (A) 6.2 k/uL (1.3-7.7); Neutrophils % (A) 70 %; Platelet Count 420 k/uL (150-450); RBC 5.33 m/uL (3.80-5.40); RDW 17.6 % (11.5-15.5); WBC 8.9 k/uL (3.8-10.6)
[2019-12-30 12:04] LABS: Sodium 140 mmol/L (137-145)
[2019-12-30 12:07] LABS: ALT 30 U/L (4-34); AST 19 U/L (14-36); African American GFR (CKD) >90 (>60 ml/min/1.73 sqM); Albumin 4.4 g/dL (3.5-5.0); Alkaline Phosphatase 117 U/L (38-126); Anion Gap 9 mmol/L; Blood Urea Nitrogen 11 mg/dL (7-17); Calcium 9.8 mg/dL (8.4-10.2); Carbon Dioxide 23 mmol/L (22-30); Chloride 108 mmol/L (98-107); Glucose 90 mg/dL (74-99); Magnesium 2.1 mg/dL (1.6-2.3); Non-African American GFR(CKD) >90 (>60 ml/min/1.73 sqM); Phosphorus 4.2 mg/dL (2.5-4.5); Potassium 4.3 mmol/L (3.5-5.1); Total Bilirubin 0.3 mg/dL (0.2-1.3)
[2019-12-30] MEDS ORDERED: LORazepam 2 MG/ML INJ IV STA (13:15)
[2019-12-30] MEDS: HYDROmorphone 1 MG/ML 1 ML SYRINGE IVP PRN ×2 (16:03→20:29)
[2019-12-30] MEDS: ONDANSETRON 4 MG/2 ML VIAL IVP PRN (16:03)
[2019-12-30] MEDS: PANTOPRAZOLE 40 MG/10 ML VIAL IVP SCH (20:28)
[2019-12-30] MEDS: TOPIRAMATE 25 MG TAB PO SCH (20:29)
[2019-12-30] MEDS: LORazepam 2 MG/ML INJ IV PRN (20:30)
[2019-12-30] MEDS ORDERED: LANSOPRAZOLE 30 MG PO SCH (21:00)
[2019-12-31] MEDS: ONDANSETRON 4 MG/2 ML VIAL IVP PRN ×4 (00:24→22:59)
[2019-12-31] MEDS: HYDROmorphone 1 MG/ML 1 ML SYRINGE IVP PRN ×5 (00:25→17:37)
[2019-12-31] MEDS: LORazepam 2 MG/ML INJ IV PRN ×5 (00:36→18:42)
[2019-12-31] MEDS: LEVOTHYROXINE 100 MCG TAB PO SCH (06:46)
[2019-12-31] MEDS: MONTELUKAST 5 MG CHEWABLE PO SCH (08:43)
[2019-12-31] MEDS: SCOPOLAMINE 1.5MG/72HR PATCH TRANSDERM SCH (08:45)
[2019-12-31] MEDS: ASPIRIN 81 MG PO SCH (08:55)
[2019-12-31] MEDS: TOPIRAMATE 25 MG TAB PO SCH ×2 (08:55→21:07)
[2019-12-31] MEDS: PANTOPRAZOLE 40 MG/10 ML VIAL IVP SCH ×2 (08:56→21:07)
[2019-12-31] MEDS: diphenhydrAMINE 50 MG/ML 1 ML VIAL IVP PRN ×2 (08:57→16:20)
[2020-01-01] MEDS: HYDROmorphone 1 MG/ML 1 ML SYRINGE IVP PRN ×6 (00:13→20:55)
[2020-01-01] MEDS: LORazepam 2 MG/ML INJ IV PRN ×4 (00:19→21:49)
[2020-01-01] MEDS: LEVOTHYROXINE 100 MCG TAB PO SCH (05:00)
[2020-01-01] MEDS: TOPIRAMATE 25 MG TAB PO SCH ×2 (09:15→21:49)
[2020-01-01] MEDS: PANTOPRAZOLE 40 MG/10 ML VIAL IVP SCH ×2 (09:15→21:49)
[2020-01-01] MEDS: ASPIRIN 81 MG PO SCH (09:15)
[2020-01-01] MEDS: MONTELUKAST 5 MG CHEWABLE PO SCH (09:15)
[2020-01-01 12:16] LABS: Anisocytosis Slight; HCT 45.1 % (34.0-46.0); HGB 14.9 gm/dL (11.4-16.0); MCH 27.1 pg (25.0-35.0); MCHC 33.1 g/dL (31.0-37.0); MCV 81.9 fL (80.0-100.0); Mean Platelet Volume 6.6; Platelet Count 382 k/uL (150-450); RDW 17.1 % (11.5-15.5); WBC 6.2 k/uL (3.8-10.6)
[2020-01-01] MEDS: PROMETHAZINE INJ 6.25 MG in SODIUM CHLORIDE 0.9% 50 ML IVPB SCH ×2 (12:52→17:04)
[2020-01-01 12:56] LABS: Calcium 9.9 mg/dL (8.4-10.2)
[2020-01-01 12:58] LABS: Potassium 4.3 mmol/L (3.5-5.1)
[2020-01-01] MEDS: diphenhydrAMINE 50 MG/ML 1 ML VIAL IVP PRN (15:43)
--- NOTE | 2020-01-01 17:41 | HP ---
HISTORY AND PHYSICAL CHIEF COMPLAINT: Recurrent, persistent abdominal pain and vomiting with gastroparesis. HISTORY OF PRESENT ILLNESS: This is another admission for this 39-year-old white female with gastroparesis. She is in and out of the hospital frequently. She has been home for some period of time. This time, but started again to have pain and vomiting and was brought back to the emergency room. She is a difficult management issue because she states that she is going to numerous physicians including the [facility] and another physician in [place] or [place]. She has a jejunostomy tube. She develops frequent episodes of vomiting and eventually comes to the emergency room. Despite all of her issues, she seems to hold and maintain her weight and she does not have fevers, chills, hemoptysis, melena, diarrhea, etc. REVIEW OF SYSTEMS: Otherwise unremarkable other than her chief complaint. Past medical history, family history, and personal and social histories are all basically unchanged from before. She is allergic to COMPAZINE and REGLAN. Medications are numerous and can be found in the MAR. PHYSICAL EXAMINATION: Blood pressure 136/85 with a pulse of 90, respirations of 36, and she is afebrile. In general, she appeared to be slightly overweight. Color was normal. Skin was well hydrated. Head, ears, eyes, nose, mouth, and throat were unremarkable and neck veins are not distended. Carotids are normal. There is no thyromegaly. The chest is clear to auscultation and percussion. Cardiac exam demonstrates normal sinus rhythm with no murmurs or extra sounds. The abdomen is slightly protuberant, soft, nontender without visceromegaly, masses, jejunostomy tube is in place in the left upper quadrant. Extremities, normal. Neurologically, she is intact. She is admitted to the hospital with diagnoses: 1. Intractable abdominal pain and vomiting. 2. Gastroparesis. 3. Dehydration. PLAN: Admit, control nausea and vomiting and pain as well as possible. MMODL / IJN: [id number] /
--- NOTE | 2020-01-01 17:53 | PN ---
PROGRESS NOTE DATE OF SERVICE: 12/31/2019 CHIEF COMPLAINT: Gastroparesis. HISTORY OF PRESENT ILLNESS: This lady is just about the same a yesterday. Pain continues. Vital signs are normal. She is afebrile. She did apparently vomit 5 times yesterday by her history. PHYSICAL EXAMINATION: Her chest is clear. The cardiac exam is normal. The abdomen is soft and nontender and jejunostomy tube is in place. Extremities are normal. IMPRESSION: 1. Gastroparesis. 2. Intractable nausea and vomiting. PLAN: Continue with antiemetics and IV fluids and reassess tomorrow. MMODL / IJN: [id number] /
--- NOTE | 2020-01-01 18:23 | PN ---
PROGRESS NOTE DATE OF SERVICE: 01/01/2020 CHIEF COMPLAINT: Gastroparesis. HISTORY OF PRESENT ILLNESS: This lady states she is not any better and threw up numerous times yesterday. She had no fever, chills, diarrhea, melena, etc. PHYSICAL EXAMINATION: Her chest is clear. Cardiac exam is normal. The abdomen is soft and nontender without any masses or visceromegaly. IMPRESSION: 1. Gastroparesis with persistent nausea and vomiting. 2. Dehydration. PLAN: Continue with antiemetics and analgesics. MMODL / IJN: [id number] /
--- NOTE | 2020-01-01 18:47 | HP ---
HISTORY AND PHYSICAL ADDENDUM TO HISTORY AND PHYSICAL: I was not notified of this lady's admission until she had been in the hospital a full day. MMFOSTER / FLAKON: [id number] /
[2020-01-02] MEDS: PROMETHAZINE INJ 6.25 MG in SODIUM CHLORIDE 0.9% 50 ML IVPB SCH ×5 (00:39→23:42)
[2020-01-02] MEDS: HYDROmorphone 1 MG/ML 1 ML SYRINGE IVP PRN ×6 (00:59→21:14)
[2020-01-02] MEDS: LEVOTHYROXINE 100 MCG TAB PO SCH (05:56)
--- NOTE | 2020-01-02 06:32 | CONS ---
CONSULTATION DATE OF CONSULTATION: 01/01/2020 REQUESTING PHYSICIAN: Dr. Adame. REASON FOR CONSULTATION: Nausea, vomiting, and abdominal pain. HISTORY OF PRESENT ILLNESS: The patient is a 39-year-old pleasant white female with history of idiopathic gastroparesis diagnosed approximately 6 years ago at [facility], presently follows with Dr. Sandhu in [facility]. She underwent a J-tube placement approximately 3 years ago for nutritional needs. The patient started having severe episodes of nausea and vomiting with epigastric pain that started about a week ago. She tried to manage at home by taking antiemetics and PPI but continued to remain symptomatic. They tried to stop her tube feeds 3 days ago and still had symptoms and hence came into the emergency room and subsequently admitted to the hospital for further evaluation. This morning she is feeling somewhat better. The tube feeds are on hold. She had 2 episodes of emesis with persistent nausea. She remains on Zofran, scopolamine patch, Protonix and Compazine as needed. PAST MEDICAL HISTORY: Significant for idiopathic gastroparesis diagnosed 6 years ago, history of hypothyroidism, gastroesophageal reflux disease, DVT, PE. MEDICATIONS: Medications at home include Singulair, , oxycodone, Zelnorm, lansoprazole, Synthroid. PAST SURGICAL HISTORY:: J tube placement 3 years ago, history of , cholecystectomy, tonsillectomy, hernia repair, gastric bezoar with removal in spring, multiple EGDs and ERCPs in the past. SOCIAL HISTORY: No smoking, no alcohol use. FAMILY HISTORY: Father has hypertension. Mother is healthy. REVIEW OF SYSTEMS: CARDIOPULMONARY: No chest pain or shortness of breath. GENITOURINARY: No dysuria or hematuria. MUSCULOSKELETAL: Unremarkable. SKIN: Unremarkable. ENDOCRINE: Unremarkable. PSYCHIATRIC: Anxiety. NEUROLOGY: Unremarkable. ENT: Vision unremarkable. GI: As mentioned above. HEMATOLOGY: History of DVT/PE in the past. EXAMINATION: She appears comfortable. No apparent distress. Vital signs stable. Blood pressure is 120/86, pulse 75, temperature 98.7. HEENT: Examination unremarkable. Conjunctivae are pink. Sclerae anicteric. Oral cavity no lesions. NECK: No JVD or lymph node enlargement. CHEST: Clear to auscultation. HEART: Regular rate and rhythm. ABDOMEN: Soft. J-tube in place. There was mild tenderness in the epigastric area. Rest of the abdomen was benign. Bowel sounds are positive. EXTREMITIES: No pedal edema. NEURO: She is alert and oriented x3. No focal deficits. LABS: From yesterday WBC 8.1, hemoglobin 14.3, platelets 420. AST, ALT, T-bilirubin, alkaline phosphatase are normal. Amylase and lipase are normal. Today CBC with differential count is within normal limits. IMPRESSION: 1. This is a lady who presented to the hospital with nausea, vomiting and abdominal pain for the last one week duration. History of idiopathic gastroparesis diagnosed 6 years ago and follows at [facility]. She underwent J-tube placement 3 years ago for nutritional purposes and uses J-tube for feeds continuously for 16 hours a day at 50 mL an hour. She held her J-tube feeds about 3 days ago because of the persistent symptoms and she is slowly improving. Presently on Protonix, Zofran, and scopolamine patch. 2. History of hypothyroidism. 3. History of deep venous thrombosis in the past. RECOMMENDATIONS: 1. Continue with Protonix 40 mg twice daily. 2. Start clear liquid diet. 3. Antiemetics as needed. 4. Continue to hold tube feeds for now. We will reassess her in the morning and based on her symptoms, we will make further recommendations. Thank you for this consultation. MMODL / IJN: [id number] /
[2020-01-02] MEDS: PANTOPRAZOLE 40 MG/10 ML VIAL IVP SCH ×2 (07:43→20:31)
[2020-01-02] MEDS: ONDANSETRON 4 MG/2 ML VIAL IVP PRN ×2 (07:44→17:19)
[2020-01-02] MEDS: TOPIRAMATE 25 MG TAB PO SCH ×2 (07:44→20:32)
[2020-01-02] MEDS: ASPIRIN 81 MG PO SCH (07:44)
[2020-01-02] MEDS: MONTELUKAST 5 MG CHEWABLE PO SCH (07:44)
[2020-01-02] MEDS: diphenhydrAMINE 50 MG/ML 1 ML VIAL IVP PRN ×2 (09:16→19:45)
[2020-01-02 10:57] LABS: Calcium 9.6 mg/dL (8.4-10.2); Potassium 4.3 mmol/L (3.5-5.1)
--- NOTE | 2020-01-02 12:32 | P.PN ---
Subjective Progress Note Date: 01/02/20 Principal diagnosis: Nausea, vomiting, and abdominal pain This is a 39-year-old white female with a history of idiopathic gastroparesis diagnosed approximately 6 years ago through [facility] and is following at [facility]. She underwent a G-tube placement approximately 3 years ago for nutritional needs. She has been having severe episodes of nausea and vomiting with epigastric pain for the past week. She has stopped her feedings. She is seen and evaluated at the bedside. She states she still not feeling well. Abdominal pain is somewhat improved. She tolerated some liquids yesterday, however had some Jell-O and states she did vomit that. Other than that she's been having nausea. Objective - Vital Signs Vital signs: Vital Signs Temp 98.5 F 01/02/20 07:31 Pulse 65 01/02/20 07:31 Resp 16 01/02/20 07:31 BP 137/89 01/02/20 07:31 Pulse Ox 100 01/02/20 07:31 Intake & Output 01/01/20 01/02/20 01/02/20 18:59 06:59 18:59 Intake Total 300 Balance 300 Intake: Oral 300 Other: Voiding Method Toilet # Voids 2 - Exam General appearance: The patient is alert, oriented, in no acute distress. HET: Head is normocephalic and atraumatic. NG tube appearing. Sclerae anicteric. Neck: Supple without lymphadenopathy. Abdomen: Soft, diffuse tenderness, nondistended with bowel sounds. No rigidity. Extremities: Normal skin color and turgor. No pedal edema. Neurological: No focal deficits. Alert and Oriented 3. - Labs CBC & Chem 7: 01/01/20 11:48 01/02/20 10:00 Labs: Abnormal Lab Results - Last 24 Hours (Table) 01/01/20 Range/Units 11:48 Creatinine 1.05 H (0.52-1.04) mg/dL Assessment and Plan Assessment: 1. This is a lady who presented to the hospital with nausea, vomiting, and abdominal pain for the past week duration. She has a history of idiopathic gastroparesis diagnosed 6 years ago and follows at the [facility]. She underwent a J-tube placement 3 years ago for nutritional purposes and use his G-tube for feeds continuously for 16 hours a day [place] miles an hour. She held her G-tube feeds for about the last 3 days because of the persistent symptoms, and she states she is slowly improving. Presently on on her again, Protonix, Zofran, and scopolamine patch. 2. History of hypothyroidism 3. History of deep venous thrombosis in the past and bilateral upper extremities due to PICC line placement Plan: 1. Continue with Protonix 40 mg twice daily 2. Start clear liquid diet 3. Antiemetics as needed 4. Continue to hold tube feeds for now. We will reassess daily and based on her symptoms will make further recommendations. For this consultation. X The impression and plan of care has been dictated as directed. Dr. Sai Canales I performed a history and examination of this patient, discussed the same with the dictator. I agree with the dictator's note ,documented as a scribe. Any additional findings or plans will be noted.
[2020-01-02] MEDS: LORazepam 2 MG/ML INJ IV PRN ×2 (14:34→19:46)
[2020-01-03] MEDS: HYDROmorphone 1 MG/ML 1 ML SYRINGE IVP PRN ×6 (02:22→22:09)
[2020-01-03] MEDS: ONDANSETRON 4 MG/2 ML VIAL IVP PRN ×2 (02:23→07:50)
[2020-01-03] MEDS: PROMETHAZINE INJ 6.25 MG in SODIUM CHLORIDE 0.9% 50 ML IVPB SCH ×3 (05:56→17:36)
[2020-01-03] MEDS: LEVOTHYROXINE 100 MCG TAB PO SCH (06:28)
[2020-01-03] MEDS: MONTELUKAST 5 MG CHEWABLE PO SCH (07:49)
[2020-01-03] MEDS: SCOPOLAMINE 1.5MG/72HR PATCH TRANSDERM SCH (07:50)
[2020-01-03] MEDS: PANTOPRAZOLE 40 MG/10 ML VIAL IVP SCH ×2 (07:50→21:09)
[2020-01-03] MEDS: ASPIRIN 81 MG PO SCH (07:50)
[2020-01-03] MEDS: TOPIRAMATE 25 MG TAB PO SCH ×2 (07:50→21:09)
[2020-01-03] MEDS: LORazepam 2 MG/ML INJ IV PRN ×4 (08:09→23:12)
[2020-01-03] MEDS: diphenhydrAMINE 50 MG/ML 1 ML VIAL IVP PRN ×3 (08:10→22:10)
--- NOTE | 2020-01-03 12:02 | P.PN ---
Subjective Progress Note Date: 01/03/20 Principal diagnosis: Nausea, vomiting, and abdominal pain This is a 39-year-old white female with a history of idiopathic gastroparesis diagnosed approximately 6 years ago through [facility] and is following at [facility]. She underwent a G-tube placement approximately 3 years ago for nutritional needs. She has been having severe episodes of nausea and vomiting with epigastric pain for the past week. She has stopped her feedings. She is seen and evaluated at the bedside. She states she still not feeling well. Abdominal pain is the same. She had some sips of water, however state she is still having nausea and vomiting. He had a bowel movement this morning. She denies any fevers or chills. Objective - Vital Signs Vital signs: Vital Signs Temp 98.2 F 01/03/20 07:41 Pulse 77 01/03/20 07:41 Resp 16 01/03/20 07:41 BP 124/83 01/03/20 07:41 Pulse Ox 100 01/03/20 07:41 Intake & Output 01/02/20 01/03/20 01/03/20 18:59 06:59 18:59 Intake Total 300 200 Balance 300 200 Intake: Oral 200 Other 300 Other: Voiding Method Toilet Toilet Toilet - Exam General appearance: The patient is alert, oriented, in no acute distress. HET: Head is normocephalic and atraumatic. NG tube appearing. Sclerae anicteric. Neck: Supple without lymphadenopathy. Abdomen: Soft, diffuse tenderness, nondistended with bowel sounds. No rigidity. Extremities: Normal skin color and turgor. No pedal edema. Neurological: No focal deficits. Alert and Oriented 3. - Labs CBC & Chem 7: 01/01/20 11:48 01/02/20 10:00 Assessment and Plan Assessment: 1. This is a lady who presented to the hospital with nausea, vomiting, and abdominal pain for the past week duration. She has a history of idiopathic gastroparesis diagnosed 6 years ago and follows at the [facility]. She underwent a J-tube placement 3 years ago for nutritional purposes and use his G-tube for feeds continuously for 16 hours a day [place] miles an hour. She held her G-tube feeds for about the last 3 days because of the persistent symptoms, and she states she is slowly improving. Presently on on her again, Protonix, Zofran, and scopolamine patch. 2. History of hypothyroidism 3. History of deep venous thrombosis in the past and bilateral upper extremities due to PICC line placement Plan: 1. Continue with Protonix 40 mg twice daily 2. Start clear liquid diet 3. Antiemetics as needed, Tigan IM added 4. Discussed with patient we recommend she restart her tube feeding. Patient will bring in from home and start at 10 ml/hr The impression and plan of care has been dictated as directed. Dr. Sai Canales I performed a history and examination of this patient, discussed the same with the dictator. I agree with the dictator's note ,documented as a scribe. Any additional findings or plans will be noted.
[2020-01-03] MEDS: TRIMETHOBENZAMIDE 100 MG/ML 2 ML VIAL IM PRN (15:19)
[2020-01-04] MEDS: PROMETHAZINE INJ 6.25 MG in SODIUM CHLORIDE 0.9% 50 ML IVPB SCH ×3 (01:46→14:24)
--- NOTE | 2020-01-04 02:22 | PN ---
PROGRESS NOTE DATE OF SERVICE: 01/02/2020 CHIEF COMPLAINT: Intractable abdominal pain with nausea, vomiting due to gastroparesis. HISTORY OF PRESENT ILLNESS: This lady is not doing any better. She has persisted chronic crampy abdominal pain and continues to have vomiting. She is taking essentially nothing orally. PHYSICAL EXAMINATION: Her vital signs are normal. Chest is clear. Cardiac exam is normal. Abdomen is soft, nontender. IMPRESSION: Gastroparesis with intractable abdominal pain and vomiting. PLAN: Consult GI, looking for any other measures that may help alleviate this lady's symptoms. She gives the impression of being very depressed. MMODL / IJN: [id number] /
--- NOTE | 2020-01-04 02:37 | PN ---
PROGRESS NOTE DATE OF SERVICE: 01/03/2020 CHIEF COMPLAINT: Gastroparesis. HISTORY OF PRESENT ILLNESS: This lady continues to complain of persistent pain and vomiting. Gastroenterology has done evaluation and they have nothing further to add. The goal will be to try to get her out of the hospital now, which was always a challenge. PHYSICAL EXAMINATION: Color is good. Hydration is good. Chest is clear. Cardiac exam is normal. Abdomen is soft, nontender. IMPRESSION: 1. Chronic abdominal pain due to gastroparesis. 2. Chronic and recurrent nausea and vomiting. 3. Depression. PLAN: With no further help for Gastroenterology, I do not know what else can be done other than to wait until her symptoms subside which they always do. MMODL / IJN: [id number] /
[2020-01-04] MEDS: ONDANSETRON 4 MG/2 ML VIAL IVP PRN ×2 (02:54→08:50)
[2020-01-04] MEDS: HYDROmorphone 1 MG/ML 1 ML SYRINGE IVP PRN ×3 (04:18→14:24)
[2020-01-04] MEDS: diphenhydrAMINE 50 MG/ML 1 ML VIAL IVP PRN ×3 (04:32→16:42)
[2020-01-04] MEDS: LORazepam 2 MG/ML INJ IV PRN (06:55)
[2020-01-04] MEDS: LEVOTHYROXINE 100 MCG TAB PO SCH (06:55)
[2020-01-04] MEDS: ASPIRIN 81 MG PO SCH (08:50)
[2020-01-04] MEDS: TOPIRAMATE 25 MG TAB PO SCH ×2 (08:50→20:23)
[2020-01-04] MEDS: PANTOPRAZOLE 40 MG/10 ML VIAL IVP SCH (08:50)
[2020-01-04] MEDS: MONTELUKAST 5 MG CHEWABLE PO SCH (08:53)
--- NOTE | 2020-01-04 13:10 | P.PN ---
Subjective Progress Note Date: 01/04/20 Principal diagnosis: Nausea, vomiting, and abdominal pain This is a 39-year-old white female with a history of idiopathic gastroparesis diagnosed approximately 6 years ago through [facility] and is following at [facility]. She underwent a G-tube placement approximately 3 years ago for nutritional needs. She has been having severe episodes of nausea and vomiting with epigastric pain for the past week. She has stopped her feedings. She is seen and evaluated at the bedside. She states she still not feeling well. Abdominal pain is the same. She had some sips of water and a pudding that she kept down for the most part. Her did not bring in her tube feedings yesterday so she has not trialed yet. She denies any fevers or chills. He states the [facility] has been helping with the nausea and vomiting. Objective - Vital Signs Vital signs: Vital Signs Temp 98.3 F 01/04/20 08:48 Pulse 75 01/04/20 09:00 Resp 16 01/04/20 09:00 BP 132/81 01/04/20 08:48 Pulse Ox 100 01/04/20 08:48 Intake & Output 01/03/20 01/04/20 01/04/20 18:59 06:59 18:59 Intake Total 200 Balance 200 Intake: Oral 200 Other: Voiding Method Toilet Toilet # Voids 1 2 1 - Exam General appearance: The patient is alert, oriented, in no acute distress. HET: Head is normocephalic and atraumatic. NG tube appearing. Sclerae anicteric. Neck: Supple without lymphadenopathy. Abdomen: Soft, diffuse tenderness, nondistended with bowel sounds. No rigidity. Extremities: Normal skin color and turgor. No pedal edema. Neurological: No focal deficits. Alert and Oriented 3. - Labs CBC & Chem 7: 01/01/20 11:48 01/02/20 10:00 Assessment and Plan Assessment: 1. This is a lady who presented to the hospital with nausea, vomiting, and abdominal pain for the past week duration. She has a history of idiopathic gastroparesis diagnosed 6 years ago and follows at the [facility]. She underwent a J-tube placement 3 years ago for nutritional purposes and use his G-tube for feeds continuously for 16 hours a day [place] miles an hour. She held her G-tube feeds for about the last 3 days because of the persistent symptoms, and she states she is slowly improving. Presently on on Protonix, Zofran, Tigan, and scopolamine patch. Will discontinue zofran and start phenergan 12.5 mg IVPB Q 6 hours PRN. Patient may also have a component of chronic intestinal pseudo-obstruction, she will have further evaluation and workup at [facility]. This with patient and about possible transfer to 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 However and patient state that sometimes it takes up to 2 weeks for the gastroparesis flare to improve. They feel that there would be no further medical management changes by going to [facility] and wished to hold for any transfer at this time. 2. History of hypothyroidism 3. History of deep venous thrombosis in the past and bilateral upper extremities due to PICC line placement Plan: 1. Continue with Protonix 40 mg twice daily 2. Advance diet as tolerated 3. Antiemetics as needed, Tigan IM added, Zofran discontinued and will add P henergan 12.5 mg IV piggyback every 6 hours as needed 4. Discussed with patient we recommend she restart her tube feeding. Patient will bring in from home and start at 10 ml/hr 5. Patient may also a component of chronic intestinal pseudoobstruction which she will further have evaluated and worked up at [facility]. 6. Continue supportive care. As patient's has stated that at times it takes up to 2 weeks for the gastroparesis flareup to resolve. Did discuss consideration of transfer to [facility] where patient ham rolling machine operator is, however patient stated they will likely do the same as is being done here at this time does not wish for a transfer. The impression and plan of care has been dictated as directed. Dr. Sai Canales I performed a history and examination of this patient, discussed the same with the dictator. I agree with the dictator's note ,documented as a scribe. Any additional findings or plans will be noted.
[2020-01-04] MEDS: TRIMETHOBENZAMIDE 100 MG/ML 2 ML VIAL IM PRN (16:54)
--- NOTE | 2020-01-04 19:20 | PN ---
PROGRESS NOTE DATE OF SERVICE: 01/04/2020 CHIEF COMPLAINT: Abdominal pain and vomiting. HISTORY OF PRESENT ILLNESS: This lady continues to have persistent abdominal pain with vomiting without hematemesis. She has been seen by Gastroenterology and they have nothing further to offer. As per her usual visit, it is difficult to justify keeping her in as well as sending her home. This morning she apparently is quite lethargic and I will cut down on her analgesics and remove her tranquilizer. PHYSICAL EXAMINATION: Her abdomen is soft, nontender. Bowel sounds are present. Chest is clear. Cardiac exam is normal. IMPRESSION: 1. Intractable abdominal pain. 2. Gastroparesis. 3. Persistent nausea and vomiting. 4. Lethargy. PLAN: Decrease some of her analgesia and sedations with the hope of encouraging her to prepare herself for discharge. MMODL / IJN: [id number] /
--- NOTE | 2020-01-04 19:44 | PN ---
PROGRESS NOTE DATE OF SERVICE: 01/04/2020. CHIEF COMPLAINT: Gastroparesis with intractable abdominal pain and vomiting. HISTORY OF PRESENT ILLNESS: This lady still states that she is throwing up 4 or 5 times a day. This is not always witnessed. She continues to complain of pain. She has had no fever or chills. She has been evaluated by Gastroenterology. PHYSICAL EXAMINATION: Color and hydration are good. Vital signs are normal. Chest is clear. Cardiac exam is normal. The abdomen is soft and nontender. IMPRESSION: 1. Gastroparesis. 2. Persistent abdominal pain with nausea and vomiting. PLAN: Encourage patient to become more active and be prepared for discharge. She receives just about everything at home that she is getting here. MMODL / IJN: [id number] /
[2020-01-04] MEDS: HYDROmorphone 0.5 MG/0.5 ML SYRINGE IVP PRN (20:22)
[2020-01-04] MEDS: PANTOPRAZOLE 40 MG TABLET PO SCH (20:23)
[2020-01-04] MEDS: PROMETHAZINE INJ 12.5 MG in SODIUM CHLORIDE 0.9% 50 ML IVPB PRN (20:25)
[2020-01-05] MEDS: diphenhydrAMINE 50 MG/ML 1 ML VIAL IVP PRN ×3 (00:05→18:36)
[2020-01-05] MEDS: HYDROmorphone 0.5 MG/0.5 ML SYRINGE IVP PRN ×4 (03:13→20:51)
[2020-01-05] MEDS: LEVOTHYROXINE 100 MCG TAB PO SCH (05:55)
[2020-01-05] MEDS: ASPIRIN 81 MG PO SCH (08:00)
[2020-01-05] MEDS: TOPIRAMATE 25 MG TAB PO SCH ×2 (08:00→20:51)
[2020-01-05] MEDS: PANTOPRAZOLE 40 MG TABLET PO SCH ×2 (08:00→20:51)
[2020-01-05] MEDS: MONTELUKAST 5 MG CHEWABLE PO SCH (08:00)
[2020-01-05] MEDS: PROMETHAZINE INJ 12.5 MG in SODIUM CHLORIDE 0.9% 50 ML IVPB PRN ×3 (09:05→20:52)
[2020-01-05 09:30] LABS: Anisocytosis Slight; Basophils # (A) 0.1 k/uL (0-0.2); Basophils % (A) 1 %; Eosinophils # (A) 0.3 k/uL (0-0.7); Eosinophils % (A) 4 %; HCT 43.9 % (34.0-46.0); HGB 14.3 gm/dL (11.4-16.0); Lymphocytes # (A) 1.7 k/uL (1.0-4.8); Lymphocytes % (A) 21 %; MCH 27.5 pg (25.0-35.0); MCHC 32.7 g/dL (31.0-37.0); Mean Platelet Volume 6.3; Monocytes # (A) 0.3 k/uL (0-1.0); Monocytes % (A) 4 %; Neutrophils # (A) 5.6 k/uL (1.3-7.7); Neutrophils % (A) 69 %; Platelet Count 291 k/uL (150-450); RBC 5.22 m/uL (3.80-5.40); RDW 16.8 % (11.5-15.5); WBC 8.1 k/uL (3.8-10.6)
[2020-01-05 09:52] LABS: Albumin 4.1 g/dL (3.5-5.0); Calcium 9.3 mg/dL (8.4-10.2); Total Bilirubin 0.3 mg/dL (0.2-1.3); Total Protein 6.7 g/dL (6.3-8.2)
--- NOTE | 2020-01-05 10:52 | PN ---
PROGRESS NOTE DATE OF DICTATION: January 05, 2020. REQUESTING PHYSICIAN: Dr. Adame. Patient is a 39-year-old pleasant white female diagnosed with idiopathic gastroparesis 6 years ago, follows at [facility] and at [facility]. The patient has been in the hospital for 5 days with severe persistent abdominal pain associated with nausea, vomiting. She has a history of J-tube placement about a year ago at [facility]. She is not able to tolerate her tube feeds currently. She has been on various antiemetics including Zofran, Phenergan, Tigan, scopolamine patch, and so far still remains symptomatic. She has been investigated extensively at [facility] and in fact she has an appointment to be seen by a gastrointestinal motility specialist at [place] next month to evaluate for small bowel pseudo-obstruction. She has been on TPN several times. The last time she was on TPN was a year ago for almost 6 months which ended only in June of this year. She has a port in place for intermittent TPN. PHYSICAL EXAMINATION: She appears comfortable. Blood pressure 130/72, pulse 88, temperature 98.7. HEENT examination unremarkable. Conjunctivae pink. Sclerae anicteric. Oral cavity no lesions. Neck no JVD. No lymph node enlargement. Chest was clear to auscultation. HEART: Regular rate and rhythm. ABDOMEN: Soft. Bowel sounds are positive. No organomegaly. J-tube in place. There was mild tenderness in the epigastric area. EXTREMITIES: No pedal edema. SKIN no rashes. NEUROLOGIC: Alert and oriented x3. No focal deficits. LABS: No labs available for the last 2 days. IMPRESSION: 1. Severe idiopathic gastroparesis and possible small bowel motility problem. The patient has been suffering with this for the last 6 years, has a J-tube in place for the last one year. Currently, not able to tolerate any oral intake or J-tube feeds. She has been on antiemetics and proton pump inhibitors with no improvement in her symptoms. Yesterday, Phenergan was increased to 12.5 mg 4 times daily and so far no change in her symptoms. 2. Malnutrition in the past, needing TPN on several different occasions. The last time was 6 months ago. 3. History of J-tube placement because of persistent severe idiopathic gastroparesis. RECOMMENDATIONS: 1. Continue with Protonix 40 mg twice daily. 2. Continue with scopolamine patch, Tigan intramuscular and Phenergan. 3. Discontinue Zofran. 4. I told the patient that she can start the J tube feeds at 10 mL an hour today and see if she can tolerate it. If not by tomorrow, we will make decisions for her to be started on TPN. The plan was discussed with her in detail and she is agreeable to it. Thank you for this consultation. In the meantime, I have requested for labs also. MMODL / IJN: [id number] /
[2020-01-05] MEDS: TRIMETHOBENZAMIDE 100 MG/ML 2 ML VIAL IM PRN (11:16)
--- NOTE | 2020-01-05 15:57 | PN ---
PROGRESS NOTE DATE OF SERVICE: 01/05/2020 CHIEF COMPLAINT: Intractable abdominal pain, vomiting. HISTORY OF PRESENT ILLNESS: This lady still states that she is throwing up several times a day. However, nurses have not observed this. She continues to have pain. Medications have been cut back in hopes of encouraging her to go home where she can control her own analgesic use. Gastroenterology saw her today and is starting her back on jejunostomy tube feedings with the plan that if she does not tolerate them, they will restart TPN. PHYSICAL EXAMINATION: Chest is clear. Cardiac exam is normal. Abdomen is soft, nontender. IMPRESSION: 1. Gastroparesis. 2. Intractable pain. 3. Intractable nausea and vomiting. PLAN: Resume J-tube feedings and await further guidelines from Gastroenterology. MMODL / IJN: [id number] /
[2020-01-06] MEDS: diphenhydrAMINE 50 MG/ML 1 ML VIAL IVP PRN ×4 (01:12→17:27)
[2020-01-06] MEDS: HYDROmorphone 0.5 MG/0.5 ML SYRINGE IVP PRN ×4 (03:16→21:43)
[2020-01-06] MEDS: PROMETHAZINE INJ 12.5 MG in SODIUM CHLORIDE 0.9% 50 ML IVPB PRN ×2 (03:17→09:06)
[2020-01-06] MEDS: LEVOTHYROXINE 100 MCG TAB PO SCH (06:01)
[2020-01-06 08:33] LABS: Albumin 3.9 g/dL (3.5-5.0); Calcium 8.8 mg/dL (8.4-10.2); Total Bilirubin 0.9 mg/dL (0.2-1.3); Total Protein 6.7 g/dL (6.3-8.2)
[2020-01-06 08:40] LABS: Potassium 4.7 mmol/L (3.5-5.1)
[2020-01-06] MEDS: ASPIRIN 81 MG PO SCH (08:45)
[2020-01-06] MEDS: MONTELUKAST 5 MG CHEWABLE PO SCH (08:46)
[2020-01-06] MEDS: TOPIRAMATE 25 MG TAB PO SCH ×2 (08:46→21:43)
[2020-01-06] MEDS: SCOPOLAMINE 1.5MG/72HR PATCH TRANSDERM SCH (08:46)
[2020-01-06] MEDS: PANTOPRAZOLE 40 MG TABLET PO SCH ×2 (08:46→21:43)
[2020-01-06 10:10] LABS: Anisocytosis Slight; Basophils # (A) 0.1 k/uL (0-0.2); Basophils % (A) 1 %; Eosinophils # (A) 0.3 k/uL (0-0.7); Eosinophils % (A) 3 %; HCT 42.5 % (34.0-46.0); HGB 13.8 gm/dL (11.4-16.0); Lymphocytes # (A) 2.2 k/uL (1.0-4.8); Lymphocytes % (A) 25 %; MCH 26.7 pg (25.0-35.0); MCHC 32.4 g/dL (31.0-37.0); MCV 82.3 fL (80.0-100.0); Mean Platelet Volume 6.4; Monocytes # (A) 0.4 k/uL (0-1.0); Monocytes % (A) 5 %; Neutrophils # (A) 5.6 k/uL (1.3-7.7); Neutrophils % (A) 64 %; Platelet Count 303 k/uL (150-450); RBC 5.17 m/uL (3.80-5.40); RDW 16.9 % (11.5-15.5); WBC 8.7 k/uL (3.8-10.6)
--- NOTE | 2020-01-06 11:06 | PN ---
PROGRESS NOTE DATE OF SERVICE: January 06, 2020 Patient is a 39-year-old pleasant white female admitted to hospital with severe gastroparesis and possible small-bowel dysmotility. The patient was started on J-tube feeds yesterday at 10 mL an hour and she is tolerating well. She still has persistent nausea, not feeling well. No abdominal pain. PHYSICAL EXAMINATION: Appears comfortable, no apparent distress. Vital signs stable. Blood pressure 133/58, pulse rate 62 and afebrile. HEENT examination unremarkable. Conjunctivae pink. Sclerae anicteric. Oral cavity no lesions. NECK no JVD or lymph node enlargement. CHEST was clear to auscultation. HEART: Regular rate and rhythm. ABDOMEN: Soft. There was mild tenderness in the epigastric area. J-G tube in place. EXTREMITIES: No pedal edema. NEUROLOGIC: Alert and oriented x3. No focal deficits. LABS: Labs done today WBC 8.7, hemoglobin 13.8, platelets normal. Basic metabolic panel today is still pending. IMPRESSION: 1. Severe intractable nausea, vomiting and abdominal pain secondary to idiopathic gastroparesis. She is status post J-tube placement a year ago at [facility], started on J-tube feeds yesterday 10 mL an hour, tolerating well. Continues to have persistent nausea and occasional emesis. 2. Questionable small bowel dysmotility. RECOMMENDATIONS: 1. Increase the J-tube feeds to 15 mL an hour and slowly every 12 hours. Increase by 5 mL/h until a goal rate of 30 mL an hour. 2. Increase Phenergan to 25 mg q.6 hours. 3. Continue with Tigan p.r.n. and Protonix daily. 4. Increase ambulation. 5. We will follow with you closely. Thank you for this consultation. MMODL / IJN: [id number] /
[2020-01-06] MEDS: PROMETHAZINE INJ 25 MG in SODIUM CHLORIDE 0.9% 50 ML IVPB PRN ×2 (15:49→22:07)
[2020-01-07] MEDS: HYDROmorphone 0.5 MG/0.5 ML SYRINGE IVP PRN ×4 (03:39→21:37)
[2020-01-07] MEDS: PROMETHAZINE INJ 25 MG in SODIUM CHLORIDE 0.9% 50 ML IVPB PRN ×3 (03:43→21:37)
[2020-01-07] MEDS: LEVOTHYROXINE 100 MCG TAB PO SCH (05:41)
[2020-01-07] MEDS: diphenhydrAMINE 50 MG/ML 1 ML VIAL IVP PRN ×4 (05:43→21:37)
[2020-01-07] MEDS: ASPIRIN 81 MG PO SCH (09:53)
[2020-01-07] MEDS: TOPIRAMATE 25 MG TAB PO SCH ×2 (11:04→21:36)
[2020-01-07] MEDS: PANTOPRAZOLE 40 MG TABLET PO SCH ×2 (11:04→21:36)
--- NOTE | 2020-01-07 12:38 | P.PN ---
Subjective Progress Note Date: 01/07/20 Principal diagnosis: Nausea, vomiting, and abdominal pain This is a 39-year-old white female with a history of idiopathic gastroparesis diagnosed approximately 6 years ago through [facility] and is following at [facility]. She underwent a G-tube placement approximately 3 years ago for nutritional needs. She has been having severe episodes of nausea and vomiting with epigastric pain for the past week. The patient started on J- tube feedings and has increased to 15ml per hour. She states she is tolerating the tube feedings well. She states not much improvement with her abdominal pain, nausea and vomiting. She is tolerating some clears and Jell-O. She denies any fevers or acute changes through the night. All movements have been normal. She states her J-tube has a crack in it and is leaking, surgery is on consult. Objective - Vital Signs Vital signs: Vital Signs Temp 98.6 F 01/07/20 02:33 Pulse 87 01/07/20 02:33 Resp 18 01/07/20 02:33 BP 118/75 01/07/20 02:33 Pulse Ox 100 01/07/20 02:33 Intake & Output 01/06/20 01/07/20 01/07/20 18:59 06:59 18:59 Intake Total 118 Balance 118 Intake: Tube Feeding 118 Other: Voiding Method Toilet Toilet # Voids 2 2 - Exam General appearance: The patient is alert, oriented, in no acute distress. HET: Head is normocephalic and atraumatic. NG tube appearing. Sclerae anicteric. Neck: Supple without lymphadenopathy. Abdomen: Soft, diffuse tenderness, nondistended with bowel sounds. No guarding or rigidity. Extremities: Normal skin color and turgor. No pedal edema. Neurological: No focal deficits. Alert and Oriented 3. - Labs CBC & Chem 7: 01/06/20 09:33 01/06/20 08:06 Labs: Abnormal Lab Results - Last 24 Hours (Table) 01/06/20 01/06/20 Range/Units 08:06 09:33 RDW 16.9 H (11.5-15.5) % Chloride 113 H (98-107) mmol/L Carbon Dioxide 19 L (22-30) mmol/L AST 41 H (14-36) U/L Assessment and Plan Assessment: 1. This is a lady who presented to the hospital with nausea, vomiting, and abdominal pain for the past week duration. She has a history of idiopathic gastroparesis diagnosed 6 years ago and follows at the [facility]. She underwent a J-tube placement 3 years ago for nutritional purposes at [facility]. Started on J-tube feedings and tolerating well. 2. Questionable small bowel dysmotility 3. History of hypothyroidism 4. History of deep venous thrombosis in the past and bilateral upper extremities due to PICC line placement Plan: 1. Continue with Protonix 40 mg twice daily 2. Advance diet as tolerated 3. Antiemetics as needed, Tigan IM PRN and Phenergan 25 mg Q6 hours 4. J-tube feedings increased to 15 mL an hour and increase by 5ml/HR every 12 hours for a goal rate of 30ML per hour We will sign off at this time. If there are any future concerns please do not hesitate to contact us. The impression and plan of care has been dictated as directed. Dr. Saxena I performed a history and examination of this patient, discussed the same with the dictator. I agree with the dictator's note ,documented as a scribe. Any additional findings or plans will be noted.
--- NOTE | 2020-01-07 13:31 | P.GSCN ---
History of Present Illness Consult date: 01/07/20 History of present illness: CHIEF COMPLAINT: Leaking from J-tube HISTORY OF PRESENT ILLNESS: This is a 39-year-old female with a known history of idiopathic gastroparesis and small bowel dysmotility disorder. Patient had J- tube placement approximately 3 years ago for nutritional needs. She had G-tube placement through [facility] and also has had workup at [facility]. She also has a history of GERD, DVT and PE in which she takes Arixtra. Her last dose was on 01/05/2020. She presented to the hospital with abdominal pain nausea and vomiting 1 week. She is followed by GI service. Patient is doing complaining of leakage from her J-tube. Surgery has been consulted to replace the J-tube. Patient reports at this J-tube was exchanged in September of this year at [facility]. Patient denies any fever, chills or sweats. PAST MEDICAL HISTORY: See list. PAST SURGICAL HISTORY: See list. MEDICATIONS: See list. ALLERGIES: See list. SOCIAL HISTORY: No illicit drug use. REVIEW OF SYSTEMS: CONSTITUTIONAL: Denies fever or chills. HEENT: Denies blurred vision, vision changes, or eye pain. Denies hemoptysis CARDIOVASCULAR: Denies chest pain or pressure. RESPIRATORY: No shortness of breath. GASTROINTESTINAL: See HPI for pertinent findings HEMATOLOGIC: Denies bleeding disorders. GENITOURINARY: Denies any blood in urine or increased urinary frequency. SKIN: Denies pruitis. Denies rash. PHYSICAL EXAM: VITAL SIGNS: Reviewed GENERAL: Well-developed in no acute distress. HEENT: No sclera icterus. Extraocular movements grossly intact. Moist buccal mucosa. Head is atraumatic, normocephalic. No nasal drainage. ABDOMEN: Soft. Nontender nondistended. J-tube is fractured. There is some leak with leakage noted from J-tube. Skin is excoriated from J-tube NEUROLOGIC: Alert and oriented. Cranial nerves II through XII grossly intact. LABORATORY DATA: WBC 8.7 IMAGING: ASSESSMENT: 1. Fractured and leaking J-tube 2. Abdominal pain with nausea and vomiting 3. History of idiopathic gastroparesis 4. History of DVT and PE PLAN: -Patient scheduled for attempted replacement of J-tube tomorrow with Dr. Segovia -Keep patient nothing by mouth after midnight -Hold tube feedings -Hold Arixtra Thank you for this consultation Physician Front Desk Receptionist note has been reviewed by physician. Signing provider agrees with the documented findings, assessment, and plan of care. Past Medical History Past Medical History: Deep Vein Thrombosis (DVT), GERD/Reflux, Pulmonary Embolus (PE), Thyroid Disorder Additional Past Medical History / Comment(s): Other hx:Idiopathic gastroparesis, takes little in orally-has J tube for feedings- chronic abdominal pain, R pulmo nary embolism -2017, dvt R upper extremity 2018, pancreatitis once in 2018- thought stone somewhere, hypothyroid, chronic anemia, sinus problems, migraine. 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 J tube replaced-last rep lace in November or December 2018, piccs, mediport insertion Past Anesthesia/Blood Transfusion Reactions: No Reported Reaction Past Psychological History: Depression Additional Psychological History / Comment(s): . Smoking Status: Never smoker Past Alcohol Use History: None Reported Additional Past Alcohol Use History / Comment(s): PT DENIES SMOKING OR ANY ILLEGAL DRUG USE, HAS AN OCC DRINK. Past Drug Use History: None Reported - Past Family History Father Family Medical History: Hypertension Additional Family Medical History / Comment(s): Father is 57 yrs old.. Mother Family Medical History: No Reported History Additional Family Medical History / Comment(s): Mother is 58yrs old. Medications and Allergies Home Medications Medication Instructions Recorded Confirmed Type Montelukast Chew [Singulair] 10 mg PO DAILY 02/02/18 12/30/19 History Topiramate [Trokendi Xr] 50 mg PO HS 07/18/18 12/30/19 History Scopolamine 1.5MG/72Hr Patch 1 patch TRANSDERM Q72H #10 patch 07/31/18 12/30/19 Rx [TransDerm Scop] Prucalopride Succinate [Motegrity] 2 mg PO DAILY 01/14/19 12/30/19 History oxyCODONE HCL [oxyCODONE HCL (IR)] 10 mg PO Q6H PRN 04/20/19 12/30/19 History Linaclotide [Linzess] 290 mcg PO DAILY 05/24/19 12/30/19 History Tegaserod Hydrogen Maleate 6 mg PO AC-BID 05/24/19 12/30/19 History [Zelnorm] Lansoprazole 30 mg PO BID 08/27/19 12/30/19 History Levothyroxine Sodium [Synthroid] 100 mcg PO DAILY 10/04/19 12/30/19 History Aspirin 81 mg PO DAILY 30 Days chewable 10/16/19 12/30/19 Rx Fondaparinux Sodium [Arixtra] 7.5 mg SQ DAILY #30 ml 10/16/19 12/30/19 Rx Allergies Allergy/AdvReac Type Severity Reaction Status Date / Time metoclopramide [From Reglan] AdvReac Mild jittery Verified 12/30/19 16:36 prochlorperazine AdvReac Mild JITTERY Verified 12/30/19 16:36 [From Compazine] Surgical - Exam Vital Signs Temp Pulse Resp BP Pulse Ox 98.4 F 104 H 20 111/73 100 12/30/19 11:07 12/30/19 11:07 12/30/19 11:07 12/30/19 11:07 12/30/19 11:07 Results - Labs 01/06/20 09:33 01/06/20 08:06
[2020-01-07] MEDS: MONTELUKAST 5 MG CHEWABLE PO SCH (16:31)
--- NOTE | 2020-01-07 22:33 | PN ---
PROGRESS NOTE DATE OF SERVICE: 01/06/2020 CHIEF COMPLAINT: Gastroparesis. HISTORY OF PRESENT ILLNESS: This lady is doing fairly well. Her jejunostomy feedings were restarted. However, there was a break in the jejunostomy feeding tube with a leak. PHYSICAL EXAMINATION: Chest is clear. Cardiac exam is normal. The abdomen is soft, nontender. There is a leak in the jejunostomy tube right at the hub. IMPRESSION: 1. Gastroparesis with intractable abdominal pain and vomiting. 2. Fractured jejunostomy tube. PLAN: General surgery referral to replace jejunostomy tube, and then she will be able to go home. MMODL / IJN: [id number] /
--- NOTE | 2020-01-07 22:49 | PN ---
PROGRESS NOTE DATE OF SERVICE: 01/07/2020 CHIEF COMPLAINT: Gastroparesis. HISTORY OF PRESENT ILLNESS: This lady is waiting to go to the operating room to have her jejunostomy tube replaced. She otherwise is doing well and has no problems. PHYSICAL EXAMINATION: Her chest is clear. Cardiac exam is normal. Abdomen is soft, nontender. IMPRESSION: 1. Gastroparesis. 2. Depression. 3. Intractable vomiting and pain. PLAN: Replace jejunostomy tube and then probably discharge either later today or tomorrow. MMODL / IJN: [id number] /
[2020-01-08] MEDS: PROMETHAZINE INJ 25 MG in SODIUM CHLORIDE 0.9% 50 ML IVPB PRN ×3 (03:18→21:40)
[2020-01-08] MEDS: diphenhydrAMINE 50 MG/ML 1 ML VIAL IVP PRN ×3 (03:19→22:41)
[2020-01-08] MEDS: HYDROmorphone 0.5 MG/0.5 ML SYRINGE IVP PRN ×4 (03:19→22:41)
[2020-01-08] MEDS: LEVOTHYROXINE 100 MCG TAB PO SCH (06:21)
[2020-01-08] MEDS: PANTOPRAZOLE 40 MG TABLET PO SCH ×2 (07:43→22:50)
[2020-01-08] MEDS: TOPIRAMATE 25 MG TAB PO SCH ×2 (07:43→22:42)
[2020-01-08] MEDS: ASPIRIN 81 MG PO SCH (07:43)
[2020-01-08] MEDS ORDERED: LIDOCAINE 1% INJ 10MG/ML (20 ML MDV) ONE (10:56)
[2020-01-08] MEDS ORDERED: PROPOFOL 10 MG/ML 20 ML VIAL IV ONE (10:56)
[2020-01-08] MEDS ORDERED: IV FLUID CONTINUATION 1,000 ML IV ONE (11:00)
--- NOTE | 2020-01-08 11:16 | P.OP ---
Date of Procedure: 01/08/20 Preoperative Diagnosis: Gastroparesis Postoperative Diagnosis: Gastroparesis Procedure(s) Performed: EGD Replacement of feeding J-tube Anesthesia: MAC Surgeon: Juice Segovia Pathology: none sent Condition: stable Disposition: floor Description of Procedure: Patient's placed on the endoscopy table in the lateral position. She received IV sedation. The gastroscope placed oropharynx passed in the esophagus stomach. Scope was placed through the pylorus. The patient did not have a gastrojejunal feeding tube. At this point scope withdrawn. Next the patient's jejunal feeding tube balloon was deflated. The feeding tube was removed. A new 18-Bel[place]an jejunal feeding tube was then placed through the existing tract. The balloon was insufflated with 6 mL of water. Patient top she will was sent back to the floor in stable condition.
[2020-01-08] MEDS: MONTELUKAST 5 MG CHEWABLE PO SCH (13:37)
[2020-01-08] MEDS: MOTEGRITY 2 MG PO SCH (13:37)
[2020-01-08 14:20] VITALS: BMI 33.0
--- NOTE | 2020-01-08 20:16 | PN ---
PROGRESS NOTE DATE OF SERVICE: 01/08/2020 CHIEF COMPLAINT: Gastroparesis with nausea and vomiting. HISTORY OF PRESENT ILLNESS: This lady did not have her jejunostomy tube replaced yesterday. She is going today. She is otherwise feeling well. She has had no fever, chest pain, shortness of breath, etc. PHYSICAL EXAMINATION: Chest is clear. Cardiac exam is normal. Abdomen is soft, nontender. IMPRESSION: Gastroparesis. PLAN: Replace jejunostomy tube today and then home after that. MMODL / IJN: [id number] /
[2020-01-09] MEDS: HYDROmorphone 0.5 MG/0.5 ML SYRINGE IVP PRN ×2 (04:51→11:16)
[2020-01-09] MEDS: diphenhydrAMINE 50 MG/ML 1 ML VIAL IVP PRN ×2 (04:52→11:17)
[2020-01-09] MEDS: LEVOTHYROXINE 100 MCG TAB PO SCH (04:55)
[2020-01-09 05:12] VITALS: RESP 16
[2020-01-09] MEDS: PANTOPRAZOLE 40 MG TABLET PO SCH (09:46)
[2020-01-09] MEDS: ASPIRIN 81 MG PO SCH (09:46)
[2020-01-09] MEDS: MONTELUKAST 5 MG CHEWABLE PO SCH (09:46)
[2020-01-09] MEDS: TOPIRAMATE 25 MG TAB PO SCH (09:46)
[2020-01-09] MEDS: MOTEGRITY 2 MG PO SCH (09:47)
[2020-01-09] MEDS: SCOPOLAMINE 1.5MG/72HR PATCH TRANSDERM SCH (09:47)
--- NOTE | 2020-01-09 11:03 | P.PN ---
Subjective Progress Note Date: 01/09/20 CHIEF COMPLAINT: Malfunctioning J-tube HISTORY OF PRESENT ILLNESS: Patient is status post EGD and replacement of feeding J-tube. She is tolerating her tube feedings. Nursing is working on titrating tube feedings to goal. She is anticipating discharge later today. She denies any nausea or vomiting. Afebrile PHYSICAL EXAM: VITAL SIGNS: Reviewed. GENERAL: Well-developed in no acute distress. HEENT: No sclera icterus. Extraocular movements grossly intact. Moist buccal mucosa. Head is atraumatic, normocephalic. ABDOMEN: Soft. Nondistended. Nontender. J-tube site clean dry and intact NEUROLOGIC: Alert and oriented. Cranial nerves II through XII grossly intact. ASSESSMENT: 1. Gastroparesis and malfunctioning J-tube. Status post EGD and replacement of feeding J-tube PLAN: -Continue to titrate tube feedings to goal -Patient can be discharge from surgical standpoint -Patient follow up with Dr. Segovia in 1 week Physician Nursing Education Specialist note has been reviewed by physician. Signing provider agrees with the documented findings, assessment, and plan of care. Objective - Vital Signs Vital signs: Vital Signs Temp 98.5 F 01/09/20 05:00 Pulse 76 01/09/20 05:00 Resp 16 01/09/20 05:00 BP 109/72 01/09/20 05:00 Pulse Ox 98 01/09/20 05:00 Intake & Output 01/08/20 01/09/20 01/09/20 18:59 06:59 18:59 Intake Total 150 Balance 150 Weight 78.6 kg 73 kg Intake: IV 150 Other: Voiding Method Toilet # Voids 1 - Labs CBC & Chem 7: 01/06/20 09:33 01/06/20 08:06
[2020-01-09 12:29] VITALS: BP 117/76; PULSE 87; TEMP 98.2
--- NOTE | 2020-01-09 18:29 | DS ---
DISCHARGE SUMMARY CHIEF COMPLAINT: Intractable abdominal pain, nausea and vomiting. HISTORY OF PRESENT ILLNESS AND PHYSICAL EXAMINATION: Details of this lady's history and physical can be found in the initial workup. LABORATORY STUDIES: While she was in the hospital she had laboratory studies, details of which can be found in the laboratory section of her chart. COURSE IN THE HOSPITAL: After admission she was placed on bedrest and started on intravenous fluids, analgesics and antiemetics. Her symptoms waxed and waned, which is usual for her. She was seen by Gastroenterology, who decided to resume her jejunostomy tube feedings. This was done, but then there was a leak in the jejunostomy tube and it had to be replaced. After that she was cleared by Surgery and GI. It was felt that she could go home, and she will go home on her usual activity and medication and program with home care. We will follow her up by phone. FINAL DIAGNOSES: 1. Gastroparesis. 2. Intractable abdominal pain. 3. Intractable nausea and vomiting. OPERATIONS: None. CONSULTATION: Gastroenterology. She is improved. COLTEN / FLAKON: [id number] /
== END 2020-01-09 15:58 | disposition home or self-care (01) | DRG 392 ==
LOC: EC 10:49 → 1SOBS 13:16 → OBSVTOIN 01-01 13:23 → 6NMEDSUR 01-08 14:58
PROVIDERS: ADMIT Family Medicine; ATTEND Family Medicine
PROC: 0DPD8UZ Removal of Feeding Device from Lower Intestinal Tract, Via Natural or Artificial Opening Endoscopic (ICD-10-PCS; principal; 2020-01-08 11:50)
PROC: 0DHA3UZ Insertion of Feeding Device into Jejunum, Percutaneous Approach (ICD-10-PCS; principal; 2020-01-08 11:50)
DX: K31.84 Gastroparesis (principal); K94.13 Enterostomy malfunction; E86.0 Dehydration; E03.9 Hypothyroidism, unspecified; F32.9 Major depressive disorder, single episode, unspecified; G89.29 Other chronic pain; Z79.82 Long term (current) use of aspirin; Z79.890 Hormone replacement therapy; Z79.899 Other long term (current) drug therapy; Z86.711 Personal history of pulmonary embolism; Z86.718 Personal history of other venous thrombosis and embolism; Z95.828 Presence of other vascular implants and grafts; Z98.891 History of uterine scar from previous surgery; Z82.49 Family history of ischemic heart disease and other diseases of the circulatory system; Z88.8 Allergy status to other drugs, medicaments and biological substances; Z86.19 Personal history of other infectious and parasitic diseases; Z90.49 Acquired absence of other specified parts of digestive tract; Z98.890 Other specified postprocedural states; Z90.89 Acquired absence of other organs
CPT/HCPCS: 36415; 43239; 80048; 80053; 81025; 82150; 83690; 83735; 84100; 85025; 85027; 96361; 96374; 96375; 96376; 99285

== ENCOUNTER 2020-02-26 17:26 | Emergency (ER) | payer BC ==
[2020-02-26 17:35] VITALS: RESP 18
--- NOTE | 2020-02-26 18:03 | ED ---
Recheck HPI - General Chief Complaint: Recheck/Abnormal Lab/Rx Stated Complaint: Feeding tube issue Time Seen by Provider: 02/26/20 17:45 Source: patient Mode of arrival: ambulatory Limitations: no limitations - History of Present Illness Initial Comments: 39yo female presenting today for cc of J tube fell out. pt states that her j tube fell just prior to arrival. states she recently had it replaced through same tract because the old tube cracked she states it was done by Dr. Segovia. Patient denies bleeding pain. denies additional complaints. patient appears nontoxic in no acute distress on arrival Pt states she has had the same tract for years, no new surgeries just replacement tube within last month by Dr. Segovia. - Related Data Home Medications Medication Instructions Recorded Confirmed Montelukast Chew [Singulair] 10 mg PO DAILY 02/02/18 12/30/19 Topiramate [Trokendi Xr] 50 mg PO HS 07/18/18 12/30/19 Prucalopride Succinate [Motegrity] 2 mg PO DAILY 01/14/19 12/30/19 oxyCODONE HCL [oxyCODONE HCL (IR)] 10 mg PO Q6H PRN 04/20/19 12/30/19 Linaclotide [Linzess] 290 mcg PO DAILY 05/24/19 12/30/19 Tegaserod Hydrogen Maleate 6 mg PO AC-BID 05/24/19 12/30/19 [Zelnorm] Lansoprazole 30 mg PO BID 08/27/19 12/30/19 Levothyroxine Sodium [Synthroid] 100 mcg PO DAILY 10/04/19 12/30/19 Previous Rx's Medication Instructions Recorded Scopolamine 1.5MG/72Hr Patch 1 patch TRANSDERM Q72H #10 patch 07/31/18 [TransDerm Scop] Aspirin 81 mg PO DAILY 30 Days chewable 10/16/19 Fondaparinux Sodium [Arixtra] 7.5 mg SQ DAILY #30 ml 10/16/19 Allergies Allergy/AdvReac Type Severity Reaction Status Date / Time metoclopramide [From Reglan] AdvReac Mild jittery Verified 02/26/20 17:35 prochlorperazine AdvReac Mild JITTERY Verified 02/26/20 17:35 [From Compazine] Review of Systems ROS Statement: Those systems with pertinent positive or pertinent negative responses have been documented in the HPI. ROS Other: All systems not noted in ROS Statement are negative. Past Medical History Past Medical History: Deep Vein Thrombosis (DVT), GERD/Reflux, Pulmonary Embolus (PE), Thyroid Disorder Additional Past Medical History / Comment(s): Other hx:Idiopathic gastroparesis, takes little in orally-has J tube for feedings- chronic abdominal pain, R pulmonary embolism 5-2017, dvt R upper extremity 2018, pancreatitis once in 2018-thought stone somewhere, hypothyroid, chronic anemia, sinus problems, migraine. 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 J tube replaced-last replace in November or December 2018, piccs, mediport insertion Past Anesthesia/Blood Transfusion Reactions: No Reported Reaction Past Psychological History: Depression Smoking Status: Never smoker Past Alcohol Use History: None Reported Past Drug Use History: None Reported - Past Family History Father Family Medical History: Hypertension Additional Family Medical History / Comment(s): Father is 57 yrs old.. Mother Family Medical History: No Reported History Additional Family Medical History / Comment(s): Mother is 58yrs old. General Exam - General Exam Comments Initial Comments: General: The patient is awake and alert, in no distress, and does not appear acutely ill. Eye: Pupils are equal, round and reactive to light, extra-ocular movements are intact. No nystagmus. There is normal conjunctiva bilaterally. No signs of icterus. Gastrointestinal: Soft, non-distended, non-tender abdomen without masses or organomegaly noted. There is no rebound or guarding present. Musculoskeletal: Normal ROM, no tenderness. Strength 5/5. Sensation intact. Pulses equal bilaterally 2+. Neurological: A&O x 3. CN II-XII intact, There are no obvious motor or sensory deficits. Coordination appears grossly intact. Speech is normal. Skin: Skin is warm and dry and no rashes. opening left mid abdomen, some excoriation, no drainage surrounding it Psychiatric: Cooperative, appropriate mood & affect, normal judgment. Limitations: no limitations Course Vital Signs 02/26/20 02/26/20 17:32 19:10 Temperature 97.6 F 97 F L Pulse Rate 103 H 83 Respiratory 18 18 Rate Blood Pressure 129/88 127/71 O2 Sat by Pulse 97 100 Oximetry Medical Decision Making - Medical Decision Making 39yo presenting for j tube replacement. contacted central sterile no 18fr J tubes. Contact pt surgeon Dr. Segovia (Dr. Pineda did) recommending 18fr page as replacement and f/u in office. Replacement successful, minimal pain. pt tolerated well (pre-mediated with dilaudid prior to placement). Patient KUB shows appropriate placement. pt discharged appearing well agreeable to care plan and f/u instruction. J tube flushed. Disposition Clinical Impression: Jejunostomy tube fell out Disposition: HOME SELF-CARE Condition: Good Additional Instructions: Please use medication as discussed. Please follow-up with family doctor in the next 2 days, recommend follow-up in next 2-3 days with your surgeon for more permanent solution. Please return to emergency room if the symptoms increase or worsen or for any other concerns. Is patient prescribed a controlled substance at d/c from ED?: No Referrals: Wong Adame MD [Primary Care Provider] - 1-2 days Juice Segovia MD [STAFF PHYSICIAN] - 1-2 days Time of Disposition: 18:51
[2020-02-26] MEDS ORDERED: HYDROmorphone 1 MG/ML 1 ML SYRINGE IM STA (18:08)
--- NOTE | 2020-02-26 19:01 | XR ---
EXAMINATION TYPE: XR abdomen 1V DATE OF EXAM: 02/26/2020 COMPARISON: October 04, 2019 HISTORY: PEG tube TECHNIQUE: Single view was obtained with contrast injected into the jejunostomy tube. FINDINGS: There is normal contrast opacification of the proximal jejunum. There is no contrast extrav asation. Bowel gas pattern is nonacute. There are clips from cholecystectomy. IMPRESSION: Jejunostomy tube is in good position.
[2020-02-26 19:11] VITALS: BP 127/71; PULSE 83; TEMP 97
== END 2020-02-26 19:10 | disposition home or self-care (01) ==
LOC: EC 17:26
DX: T85.528A Displacement of other gastrointestinal prosthetic devices, implants and grafts, initial encounter (principal); E03.9 Hypothyroidism, unspecified; G89.29 Other chronic pain; R10.9 Unspecified abdominal pain; K21.9 Gastro-esophageal reflux disease without esophagitis; Z79.899 Other long term (current) drug therapy; Z79.890 Hormone replacement therapy; Z88.8 Allergy status to other drugs, medicaments and biological substances; Z90.49 Acquired absence of other specified parts of digestive tract; Z86.718 Personal history of other venous thrombosis and embolism; Z86.711 Personal history of pulmonary embolism
CPT/HCPCS: 74018; 99283; 96372; J1170; Q9967

== ENCOUNTER 2020-02-29 17:02 | Emergency (ER) | payer BC ==
[2020-02-29 17:06] VITALS: BP 135/88; PULSE 88; RESP 18; TEMP 98.7
[2020-02-29] MEDS ORDERED: HYDROmorphone 1 MG/ML 1 ML SYRINGE IM STA (17:35)
--- NOTE | 2020-02-29 18:16 | ED ---
Recheck HPI - General Chief Complaint: Recheck/Abnormal Lab/Rx Stated Complaint: Feeding tube came out Time Seen by Provider: 02/29/20 17:10 Source: patient Mode of arrival: ambulatory Limitations: no limitations - History of Present Illness Initial Comments: 39-year-old presenting for J-tube placement. Patient states her J-tube fell out again which was actually a temporary Page catheter 18-Sinhala until patient can see her surgeon she states she is appointment on Tuesday. Patient states that it fell out yesterday but she was able to replace it. Patient presenting for a replacement tube today. Patient states the old balloon popped. patient denies vomiting, fevers or additional complaints. pt appears well nontoxic. last BM this morning normal. - Related Data Home Medications Medication Instructions Recorded Confirmed Montelukast Chew [Singulair] 10 mg PO DAILY 02/02/18 12/30/19 Topiramate [Trokendi Xr] 50 mg PO HS 07/18/18 12/30/19 Prucalopride Succinate [Motegrity] 2 mg PO DAILY 01/14/19 12/30/19 oxyCODONE HCL [oxyCODONE HCL (IR)] 10 mg PO Q6H PRN 04/20/19 12/30/19 Linaclotide [Linzess] 290 mcg PO DAILY 05/24/19 12/30/19 Tegaserod Hydrogen Maleate 6 mg PO AC-BID 05/24/19 12/30/19 [Zelnorm] Lansoprazole 30 mg PO BID 08/27/19 12/30/19 Levothyroxine Sodium [Synthroid] 100 mcg PO DAILY 10/04/19 12/30/19 Previous Rx's Medication Instructions Recorded Scopolamine 1.5MG/72Hr Patch 1 patch TRANSDERM Q72H #10 patch 07/31/18 [TransDerm Scop] Aspirin 81 mg PO DAILY 30 Days chewable 10/16/19 Fondaparinux Sodium [Arixtra] 7.5 mg SQ DAILY #30 ml 10/16/19 Allergies Allergy/AdvReac Type Severity Reaction Status Date / Time metoclopramide [From Reglan] AdvReac Mild jittery Verified 02/29/20 17:06 prochlorperazine AdvReac Mild JITTERY Verified 02/29/20 17:06 [From Compazine] Review of Systems ROS Statement: Those systems with pertinent positive or pertinent negative responses have been documented in the HPI. ROS Other: All systems not noted in ROS Statement are negative. Past Medical History Past Medical History: Deep Vein Thrombosis (DVT), GERD/Reflux, Pulmonary Embolus (PE), Thyroid Disorder Additional Past Medical History / Comment(s): Other hx:Idiopathic gastroparesis, takes little in orally-has J tube for feedings- chronic abdominal pain, R pulmonary embolism 5-2017, dvt R upper extremity 2018, pancreatitis once in 2018-thought stone somewhere, hypothyroid, chronic anemia, sinus problems, migraine. 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 J tube replaced-last replace in November or December 2018, piccs, mediport insertion Past Anesthesia/Blood Transfusion Reactions: No Reported Reaction Past Psychological History: Depression Smoking Status: Never smoker Past Alcohol Use History: None Reported Past Drug Use History: None Reported - Past Family History Father Family Medical History: Hypertension Additional Family Medical History / Comment(s): Father is 57 yrs old.. Mother Family Medical History: No Reported History Additional Family Medical History / Comment(s): Mother is 58yrs old. General Exam - General Exam Comments Initial Comments: General: The patient is awake and alert, in no distress Eye: Pupils are equal, round and reactive to light, extra-ocular movements are intact. No nystagmus. There is normal conjunctiva bilaterally. No signs of icterus. Gastrointestinal: [Soft, non-distended, non-tender abdomen without masses or organomegaly noted. There is no rebound or guarding present. opening left abdomen, excoriation mild. no drainage. Musculoskeletal: Normal ROM, no tenderness. Strength 5/5. Sensation intact. Radial pulses equal bilaterally 2+. Neurological: A&O x 3. CN II-XII intact grossly, There are no obvious motor or sensory deficits. Coordination appears grossly intact. Speech is normal. Skin: Skin is warm and dry and no rashes or lesions are noted. Psychiatric: Cooperative, appropriate mood & affect, normal judgment. Limitations: no limitations Course Vital Signs 02/29/20 17:04 Temperature 98.7 F Pulse Rate 88 Respiratory 18 Rate Blood Pressure 135/88 O2 Sat by Pulse 100 Oximetry Medical Decision Making - Medical Decision Making 39yo presented for replacement of J-tube. balloon malfunction. replcaed per last surgical recommendation 3 days ago with 18 fr page. pt has appointment tuesday. kub good placement. pt discharged appearing well. Disposition Clinical Impression: Jejunostomy tube fell out Disposition: HOME SELF-CARE Condition: Good Additional Instructions: Please use medication as discussed. Please follow-up with surgeon on Tuesday as scheduled. Please return to emergency room if the symptoms increase or worsen or for any other concerns. Is patient prescribed a controlled substance at d/c from ED?: No Referrals: Wong Adame MD [Primary Care Provider] - 1-2 days Time of Disposition: 18:16
--- NOTE | 2020-02-29 18:28 | XR ---
EXAMINATION TYPE: XR KUB DATE OF EXAM: 02/29/2020 COMPARISON: 02/26/2020 HISTORY: Tube check Single view of the abdomen was obtained with contrast injected into the jejunostomy tube. There is c ontrast opacification of the jejunum. I see no extravasation. The contrast was Isovue 30 mL. IMPRESSION: Jejunostomy tube appears to be in good position. No change compared to recent exam.
== END 2020-02-29 18:59 | disposition home or self-care (01) ==
LOC: EC 17:02
DX: T85.528A Displacement of other gastrointestinal prosthetic devices, implants and grafts, initial encounter (principal); K21.9 Gastro-esophageal reflux disease without esophagitis; E03.9 Hypothyroidism, unspecified; Z79.51 Long term (current) use of inhaled steroids; Z79.899 Other long term (current) drug therapy; Z79.890 Hormone replacement therapy; Z88.8 Allergy status to other drugs, medicaments and biological substances; Z86.718 Personal history of other venous thrombosis and embolism; Z86.711 Personal history of pulmonary embolism
CPT/HCPCS: 74018; 99283; 96372; J1170

== ENCOUNTER 2020-03-25 05:13 | Emergency (ER) | payer BC ==
[2020-03-25 05:21] VITALS: RESP 18; TEMP 99
--- NOTE | 2020-03-25 05:43 | ED ---
Extremity Problem HPI <Jian Vallejo - Last Filed: 03/25/20 08:23> - General Source: patient, RN notes reviewed, old records reviewed Mode of arrival: ambulatory Limitations: no limitations - History of Present Illness MD Complaint: extremity pain, extremity swelling -: days(s) Location: right, lower extremity -: Yes myalgia, Yes arthralgia Radiation: none Severity scale (1-10): 7 Quality: burning, aching Consistency: constant Improves with: nothing Worsens with: nothing Associated Symptoms: denies other symptoms <Cruz Finch - Last Filed: 03/26/20 03:19> - General Chief complaint: Extremity Problem,Nontraumatic Stated complaint: Leg pain Time Seen by Provider: 03/25/20 05:24 - History of Present Illness Initial comments: This is a 32-year-old female well-known to our facility for lower extremity pain right lower [place] pain history of DVT history of blood clots concern for blood clot of the right leg. Patient has no chest pain or shortness of breath, and is complaining of generalized body aches and pains which she does normally have. That is her baseline. Patient was or history of DVTs is concern for DVT in the right lower extremity wanted to be checked out for symptoms became worse, patient is anticoagulated (Cruz Finch) - Related Data Home Medications Medication Instructions Recorded Confirmed Montelukast Chew [Singulair] 10 mg PO DAILY 02/02/18 12/30/19 Topiramate [Trokendi Xr] 50 mg PO HS 07/18/18 12/30/19 Prucalopride Succinate [Motegrity] 2 mg PO DAILY 01/14/19 12/30/19 oxyCODONE HCL [oxyCODONE HCL (IR)] 10 mg PO Q6H PRN 04/20/19 12/30/19 Linaclotide [Linzess] 290 mcg PO DAILY 05/24/19 12/30/19 Tegaserod Hydrogen Maleate 6 mg PO AC-BID 05/24/19 12/30/19 [Zelnorm] Lansoprazole 30 mg PO BID 08/27/19 12/30/19 Levothyroxine Sodium [Synthroid] 100 mcg PO DAILY 10/04/19 12/30/19 Previous Rx's Medication Instructions Recorded Scopolamine 1.5MG/72Hr Patch 1 patch TRANSDERM Q72H #10 patch 07/31/18 [TransDerm Scop] Aspirin 81 mg PO DAILY 30 Days chewable 10/16/19 Fondaparinux Sodium [Arixtra] 7.5 mg SQ DAILY #30 ml 10/16/19 Allergies Allergy/AdvReac Type Severity Reaction Status Date / Time metoclopramide [From Reglan] AdvReac Mild jittery Verified 03/25/20 05:21 prochlorperazine AdvReac Mild JITTERY Verified 03/25/20 05:21 [From Compazine] Review of Systems ROS Other: All systems not noted in ROS Statement are negative. <Jian Vallejo - Last Filed: 03/25/20 08:23> ROS Other: All systems not noted in ROS Statement are negative. <Cruz Ficnh - Last Filed: 03/26/20 03:19> ROS Statement: Those systems with pertinent positive or pertinent negative responses have been documented in the HPI. Past Medical History Past Medical History: Deep Vein Thrombosis (DVT), GERD/Reflux, Pulmonary Embolus (PE), Thyroid Disorder Additional Past Medical History / Comment(s): Other hx:Idiopathic gastroparesis, takes little in orally-has J tube for feedings- chronic abdominal pain, R pulmonary embolism -2017, dvt R upper extremity 2018, pancreatitis once in 2018-thought stone somewhere, hypothyroid, chronic anemia, sinus problems, migraine. 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 J tube replaced-last replace in November or December 2018, piccs, mediport insertion , left carpal tunnel Past Anesthesia/Blood Transfusion Reactions: No Reported Reaction Past Psychological History: Depression Smoking Status: Never smoker Past Alcohol Use History: None Reported Past Drug Use History: None Reported - Past Family History Father Family Medical History: Hypertension Additional Family Medical History / Comment(s): Father is 57 yrs old.. Mother Family Medical History: No Reported History Additional Family Medical History / Comment(s): Mother is 58yrs old. <Joshua Finchophe Holger - Last Filed: 03/26/20 03:19> General Exam Limitations: no limitations General appearance: alert, in no apparent distress Head exam: Present: atraumatic, normocephalic, normal inspection Eye exam: Present: normal appearance, PERRL, EOMI. Absent: scleral icterus, conjunctival injection, periorbital swelling ENT exam: Present: normal exam, mucous membranes moist Neck exam: Present: normal inspection. Absent: tenderness, meningismus, lymphadenopathy Respiratory exam: Present: normal lung sounds bilaterally. Absent: respiratory distress, wheezes, rales, rhonchi, stridor Cardiovascular Exam: Present: normal rhythm, tachycardia, normal heart sounds. Absent: systolic murmur, diastolic murmur, rubs, gallop, clicks GI/Abdominal exam: Present: soft, normal bowel sounds. Absent: distended, tenderness, guarding, rebound, rigid Extremities exam: Present: normal inspection, full ROM, normal capillary refill. Absent: tenderness, pedal edema, joint swelling, calf tenderness Back exam: Present: normal inspection Neurological exam: Present: alert, oriented X3, CN II-XII intact Psychiatric exam: Present: normal affect, normal mood Skin exam: Present: warm, dry, intact, normal color. Absent: rash <Cruz Finch B - Last Filed: 03/26/20 03:19> Course Vital Signs 03/25/20 03/25/20 05:17 08:31 Temperature 99.0 F Pulse Rate 110 H 80 Respiratory 18 18 Rate Blood Pressure 135/95 137/91 O2 Sat by Pulse 97 100 Oximetry Medical Decision Making <Jian Vallejo - Last Filed: 03/25/20 08:23> - Medical Decision Making Patient's care was signed out at shift change awaiting ultrasound results of right lower extremity regarding pain in a patient with history of DVT. Ultrasound is negative for DVT. I did reexamine the patient, she has normal pulse exam, 2+ DP and PT pulses, normal strength. Overall well-appearing. Patient will follow-up with her primary care physician regarding these symptoms if symptoms change or worsen, please return to the emergency department. (Jian Vallejo) Disposition Is patient prescribed a controlled substance at d/c from ED?: No Time of Disposition: 08:24 <Jian Vallejo - Last Filed: 03/25/20 08:23> <Cruz Finch - Last Filed: 03/26/20 03:19> Clinical Impression: Lower extremity pain Disposition: HOME SELF-CARE Condition: Good Instructions (If sedation given, give patient instructions): Muscle Strain (ED) Referrals: Wong Adame MD [Primary Care Provider] - 1-2 days
[2020-03-25] MEDS ORDERED: HYDROmorphone 1 MG/ML 1 ML SYRINGE IM STA (05:55)
--- NOTE | 2020-03-25 08:07 | US ---
EXAMINATION TYPE: US venous doppler duplex LE RT DATE OF EXAM: 03/25/2020 7:45 AM COMPARISON: NONE CLINICAL HISTORY: pain. SIDE PERFORMED: TECHNIQUE: The lower extremity deep venous system is examined utilizing real time linear array sonog cedrick with graded compression, doppler sonography and color-flow sonography. VESSELS IMAGED: Common Femoral Vein Deep Femoral Vein Greater Saphenous Vein * Femoral Vein Popliteal Vein Small Saphenous Vein * Proximal Calf Veins (* superficial vessels) Right Leg: Negative for DVT IMPRESSION: No evidence for DVT.
[2020-03-25 08:33] VITALS: BP 137/91; PULSE 80
== END 2020-03-25 08:31 | disposition home or self-care (01) ==
LOC: EC 05:13
DX: M79.604 Pain in right leg (principal); M79.89 Other specified soft tissue disorders; K21.9 Gastro-esophageal reflux disease without esophagitis; F32.9 Major depressive disorder, single episode, unspecified; E03.9 Hypothyroidism, unspecified; Z79.890 Hormone replacement therapy; Z79.899 Other long term (current) drug therapy; Z88.8 Allergy status to other drugs, medicaments and biological substances; Z86.718 Personal history of other venous thrombosis and embolism; Z86.711 Personal history of pulmonary embolism; Z87.19 Personal history of other diseases of the digestive system; Z82.49 Family history of ischemic heart disease and other diseases of the circulatory system
CPT/HCPCS: 93971; 96372; 99284; J1170

== ENCOUNTER 2020-04-20 07:07 | Emergency (ER) | payer BC ==
[2020-04-20 07:21] VITALS: TEMP 98.8
[2020-04-20] MEDS ORDERED: HYDROmorphone 1 MG/ML 1 ML SYRINGE IVP STA (07:29)
--- NOTE | 2020-04-20 07:33 | ED ---
Extremity Problem HPI - General Chief complaint: Extremity Problem,Nontraumatic Stated complaint: RT leg pain Time Seen by Provider: 04/20/20 07:22 Source: patient Mode of arrival: ambulatory Limitations: no limitations - History of Present Illness Initial comments: 40 yo female presenting for cc of right leg pain. pt states that for the past 1- 2 days she has not been able to get comfortable secondary to right hip pain. pt states it radiates down the leg to the ankle, aching in nature. she states it is hard to get comfortable. pt states that this pain is completely different than when she presented for a right calf kirill horse a month ago. pt states her only blood clot was secondary to her PICC line. pt denies chest pain, dyspnea. Denies fevers. denies leg swelling. denies calf pain. patient appears well nontoxic in no acute distress. pt denies falls/trauma. - Related Data Home Medications Medication Instructions Recorded Confirmed Montelukast Chew [Singulair] 10 mg PO DAILY 02/02/18 12/30/19 Topiramate [Trokendi Xr] 50 mg PO HS 07/18/18 12/30/19 Prucalopride Succinate [Motegrity] 2 mg PO DAILY 01/14/19 12/30/19 oxyCODONE HCL [oxyCODONE HCL (IR)] 10 mg PO Q6H PRN 04/20/19 12/30/19 Linaclotide [Linzess] 290 mcg PO DAILY 05/24/19 12/30/19 Tegaserod Hydrogen Maleate 6 mg PO AC-BID 05/24/19 12/30/19 [Zelnorm] Lansoprazole 30 mg PO BID 08/27/19 12/30/19 Levothyroxine Sodium [Synthroid] 100 mcg PO DAILY 10/04/19 12/30/19 Previous Rx's Medication Instructions Recorded Scopolamine 1.5MG/72Hr Patch 1 patch TRANSDERM Q72H #10 patch 07/31/18 [TransDerm Scop] Aspirin 81 mg PO DAILY 30 Days chewable 10/16/19 Fondaparinux Sodium [Arixtra] 7.5 mg SQ DAILY #30 ml 10/16/19 predniSONE 50 mg PO DAILY 4 Days #4 tab 04/20/20 Allergies Allergy/AdvReac Type Severity Reaction Status Date / Time metoclopramide [From Reglan] AdvReac Mild jittery Verified 04/20/20 07:21 prochlorperazine AdvReac Mild JITTERY Verified 04/20/20 07:21 [From Compazine] Review of Systems ROS Statement: Those systems with pertinent positive or pertinent negative responses have been documented in the HPI. ROS Other: All systems not noted in ROS Statement are negative. Past Medical History Past Medical History: Deep Vein Thrombosis (DVT), GERD/Reflux, Pulmonary Embolus (PE), Thyroid Disorder Additional Past Medical History / Comment(s): Other hx:Idiopathic gastroparesis, takes little in orally-has J tube for feedings- chronic abdominal pain, R pulmonary embolism 5-2017, dvt R upper extremity 2018, pancreatitis once in 2018-thought stone somewhere, hypothyroid, chronic anemia, sinus problems, migraine. 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 J tube replaced-last replace in November or December 2018, piccs, mediport insertion , left carpal tunnel Past Anesthesia/Blood Transfusion Reactions: No Reported Reaction Past Psychological History: Depression Smoking Status: Never smoker Past Alcohol Use History: None Reported Past Drug Use History: None Reported - Past Family History Father Family Medical History: Hypertension Additional Family Medical History / Comment(s): Father is 57 yrs old.. Mother Family Medical History: No Reported History Additional Family Medical History / Comment(s): Mother is 58yrs old. General Exam - General Exam Comments Initial Comments: General: The patient is awake and alert, in no distress Eye: Pupils are equal, round and reactive to light, extra-ocular movements are intact. No nystagmus. There is normal conjunctiva bilaterally. No signs of icterus. Cardiovascular: There is a regular rate and rhythm. No murmur, rub or gallop is appreciated. Respiratory: Lungs are clear to auscultation, respirations are non-labored, breath sounds are equal. No wheezes, stridor, rales, or rhonchi. Gastrointestinal: Soft, non-distended, non-tender abdomen without masses or organomegaly noted. There is no rebound or guarding present. Musculoskeletal: no midline tenderness to palpation of the lumbar ot thoracic spine nor paraspinal. pt has no point localied tenderness of hips, knee, ankles to touch of skin. patient has normal sensation in the saddle region. Normal ROM, no tenderness. can weight bear. no calf or leg swelling/redness. no skin changes. Strength 5/5 of the LE b/l. Sensation intact of the LE b/l. Radial and DP pulses equal bilaterally 2+. Neurological: A&O x 3. CN II-XII intact grossly, There are no obvious motor or sensory deficits. Coordination appears grossly intact. Speech is normal. Skin: Skin is warm and dry and no rashes or lesions are noted. Psychiatric: Cooperative, appropriate mood & affect, normal judgment. Limitations: no limitations Course Vital Signs 04/20/20 04/20/20 07:18 08:57 Temperature 98.8 F Pulse Rate 96 87 Respiratory 16 17 Rate Blood Pressure 121/62 127/82 O2 Sat by Pulse 98 97 Oximetry Medical Decision Making - Medical Decision Making XR (-) for acute process. US (-). No swelling. No skin changes. Patient neurovascularly intact. She can weight-bear. No injuries noted per patient. at this time i feel pt is stable for discharge with pcp f/u-attending agreeable. patient agreeable to this care plan and discharge at this time. Disposition Clinical Impression: Right leg pain Disposition: HOME SELF-CARE Condition: Good Instructions (If sedation given, give patient instructions): Hip Pain (ED) Additional Instructions: Please use medication as discussed. Please follow-up with family doctor in the next 2 days, recommend outpatient orthopedic follow-up as well as PCP. Please return to emergency room if the symptoms increase or worsen or for any other concerns. Prescriptions: predniSONE 50 mg PO DAILY 4 Days #4 tab Is patient prescribed a controlled substance at d/c from ED?: No Referrals: Wong Adame MD [Primary Care Provider] - 1-2 days Time of Disposition: 08:46
--- NOTE | 2020-04-20 08:04 | XR ---
EXAMINATION TYPE: XR Hip RT and AP Pelvis DATE OF EXAM: 04/20/2020 COMPARISON: NONE HISTORY: Pain in right hip TECHNIQUE: A single AP view of the pelvis is obtained. Two views of the right hip are obtained. FINDINGS: There is no acute fracture/dislocation evident in the pelvis. The hip and sacroiliac join ts appear symmetric and unremarkable. The overlying soft tissue appears unremarkable. Intrauterine c ontraceptive device is present within the pelvis. Two views of right hip show no acute fracture or dislocation. No focal lytic or sclerotic lesion see n in the proximal right femur. The overlying soft tissue is unremarkable. IMPRESSION: There is no acute fracture or dislocation in the pelvis or hip.
--- NOTE | 2020-04-20 08:05 | XR ---
Lumbar spine HISTORY: Right hip and leg pain 3 views of the lumbar spine There is a tubing over the left hemiabdomen with contrast filled balloon suspected. Postop change not ed with bowel suture in the left hemiabdomen. Lumbar vertebral bodies show preserved height, alignmen t, and bone mineralization. Disc spaces are maintained. IMPRESSION: Postop changes. No acute lumbar spine abnormality is evident.
--- NOTE | 2020-04-20 08:36 | US ---
EXAMINATION TYPE: US venous doppler duplex LE RT DATE OF EXAM: 04/20/2020 7:35 AM COMPARISON: NONE CLINICAL HISTORY: leg pain. SIDE PERFORMED: Right TECHNIQUE: The lower extremity deep venous system is examined utilizing real time linear array sonog cedrick with graded compression, doppler sonography and color-flow sonography. VESSELS IMAGED: Common Femoral Vein Deep Femoral Vein Greater Saphenous Vein * Femoral Vein Popliteal Vein Small Saphenous Vein * Proximal Calf Veins (* superficial vessels) There is normal flow, compressibility, vascular waveforms. Right Leg: Negative for DVT IMPRESSION: No evident deep venous thrombosis at or above the right knee.
[2020-04-20] MEDS ORDERED: HYDROmorphone 0.5 MG/0.5 ML SYRINGE IVP STA (08:51)
[2020-04-20 08:58] VITALS: BP 127/82; PULSE 87; RESP 17
== END 2020-04-20 09:08 | disposition home or self-care (01) ==
LOC: EC 07:07
DX: M79.604 Pain in right leg (principal); M25.551 Pain in right hip; E03.9 Hypothyroidism, unspecified; K21.9 Gastro-esophageal reflux disease without esophagitis; Z79.890 Hormone replacement therapy; Z79.899 Other long term (current) drug therapy; Z88.8 Allergy status to other drugs, medicaments and biological substances; Z90.49 Acquired absence of other specified parts of digestive tract
CPT/HCPCS: 72100; 73502; 93971; 99284; 96374; 96376; J1170 ×2

== ENCOUNTER 2020-05-20 12:24 | Emergency (ER) | payer BC ==
[2020-05-20] MEDS ORDERED: diphenhydrAMINE 50 MG/ML 1 ML VIAL IVP STA ×2 (12:44→14:51)
[2020-05-20] MEDS ORDERED: ONDANSETRON 4 MG/2 ML VIAL IVP STA ×2 (12:44→14:51)
[2020-05-20] MEDS ORDERED: SODIUM CHLORIDE 0.9% 500 ML 500 ML IV STA (12:44)
[2020-05-20] MEDS ORDERED: HYDROmorphone 1 MG/ML 1 ML SYRINGE IVP STA ×2 (12:45→14:51)
--- NOTE | 2020-05-20 12:51 | ED ---
General Adult HPI - General Chief complaint: Headache Stated complaint: Head pain Time Seen by Provider: 05/20/20 12:35 Source: patient, RN notes reviewed, old records reviewed Mode of arrival: wheelchair Limitations: no limitations - History of Present Illness Initial comments: 40-year-old female presented for evaluation of headache. Headache is throughout her entire head. This began about 2-3 hours prior to arrival. She states she does have history of migraine and this is similar to migraines but more severe. She states was more sudden, although it was not a thunderclap headache, it was more sudden in onset than previous headaches. She tried Imitrex at home with no relief. She's had several episodes of vomiting. She has photophobia. She is currently on Lovenox with history of DVT PE. - Related Data Home Medications Medication Instructions Recorded Confirmed Montelukast Chew [Singulair] 10 mg PO DAILY 02/02/18 05/20/20 Topiramate [Trokendi Xr] 50 mg PO HS 07/18/18 05/20/20 Prucalopride Succinate [Motegrity] 2 mg PO DAILY 01/14/19 05/20/20 oxyCODONE HCL [oxyCODONE HCL (IR)] 10 mg PO Q8H PRN 04/20/19 05/20/20 Linaclotide [Linzess] 290 mcg PO DAILY 05/24/19 05/20/20 Tegaserod Hydrogen Maleate 6 mg PO AC-BID 05/24/19 05/20/20 [Zelnorm] Lansoprazole 30 mg PO BID 08/27/19 05/20/20 Levothyroxine Sodium [Synthroid] 100 mcg PO DAILY 10/04/19 05/20/20 Amoxic-Pot Clav 875-125Mg 1 tab PO BID 05/20/20 05/20/20 [Augmentin 875-125] Diclofenac Sodium [Voltaren] 25 mg PO DAILY PRN 05/20/20 05/20/20 SUMAtriptan SUCCINATE [Imitrex] 100 mg PO DAILY PRN 05/20/20 05/20/20 predniSONE [Deltasone] 20 mg PO BID 05/20/20 05/20/20 Previous Rx's Medication Instructions Recorded Scopolamine 1.5MG/72Hr Patch 1 patch TRANSDERM Q72H #10 patch 07/31/18 [TransDerm Scop] Aspirin 81 mg PO DAILY 30 Days chewable 10/16/19 Fondaparinux Sodium [Arixtra] 7.5 mg SQ DAILY #30 ml 10/16/19 Allergies Allergy/AdvReac Type Severity Reaction Status Date / Time metoclopramide [From Reglan] AdvReac Mild jittery Verified 05/20/20 12:29 prochlorperazine AdvReac Mild JITTERY Verified 05/20/20 12:29 [From Compazine] Review of Systems ROS Statement: Those systems with pertinent positive or pertinent negative responses have been documented in the HPI. ROS Other: All systems not noted in ROS Statement are negative. Past Medical History Past Medical History: Deep Vein Thrombosis (DVT), GERD/Reflux, Pulmonary Embolus (PE), Thyroid Disorder Additional Past Medical History / Comment(s): Other hx:Idiopathic gastroparesis, takes little in orally-has J tube for feedings- chronic abdominal pain, R pulmonary embolism 5-2017, dvt R upper extremity 2018, pancreatitis once in 2017-thought stone somewhere, hypothyroid, chronic anemia, sinus problems, migraine. 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 J tube replaced-last replace in November or December 2018, piccs, mediport insertion , left carpal tunnel Past Anesthesia/Blood Transfusion Reactions: No Reported Reaction Past Psychological History: Depression Smoking Status: Never smoker Past Alcohol Use History: None Reported Past Drug Use History: None Reported - Past Family History Father Family Medical History: Hypertension Additional Family Medical History / Comment(s): Father is 57 yrs old.. Mother Family Medical History: No Reported History Additional Family Medical History / Comment(s): Mother is 58yrs old. General Exam Limitations: no limitations General appearance: alert, in no apparent distress (She is uncomfortable) Head exam: Present: atraumatic, normocephalic Eye exam: Present: normal appearance, PERRL ENT exam: Present: normal exam Neck exam: Present: normal inspection. Absent: tenderness, meningismus Respiratory exam: Present: normal lung sounds bilaterally. Absent: respiratory distress Cardiovascular Exam: Present: regular rate, normal rhythm GI/Abdominal exam: Present: soft. Absent: distended Extremities exam: Present: normal inspection, normal capillary refill. Absent: pedal edema Neurological exam: Present: alert, oriented X3, CN II-XII intact. Absent: motor sensory deficit Psychiatric exam: Present: normal affect, normal mood Skin exam: Present: warm, dry, intact. Absent: cyanosis, diaphoretic Course Vital Signs 05/20/20 12:25 Temperature 98.5 F Pulse Rate 92 Respiratory 18 Rate Blood Pressure 136/89 O2 Sat by Pulse 95 Oximetry Medical Decision Making - Medical Decision Making 40-year-old female presenting with headache, there is some concern for in tracranial hemorrhage given the anticoagulation status and relatively sudden onset headache. CT is performed which is negative for intracranial hemorrhage or mass effect. CT does show a sinusitis for which the patient is currently being treated with Augmentin. She has a leukocytosis, white blood cell count of 12. Electrolytes are within normal limits, CBC and CMP are otherwise unremarkable. Patient reevaluated, she does have some improvement in her symptoms. She feels that she can tolerate her symptoms at home and will return if needed. - Lab Data Result diagrams: 05/20/20 13:49 05/20/20 13:49 Lab Results 05/20/20 05/20/20 Range/Units 13:49 13:49 WBC 12.4 H (3.8-10.6) k/uL RBC 5.24 (3.80-5.40) m/uL Hgb 15.1 (11.4-16.0) gm/dL Hct 44.9 (34.0-46.0) % MCV 85.6 (80.0-100.0) fL MCH 28.8 (25.0-35.0) pg MCHC 33.6 (31.0-37.0) g/dL RDW 13.3 (11.5-15.5) % Plt Count 396 (150-450) k/uL MPV 6.6 Neutrophils % 66 % Lymphocytes % 25 % Monocytes % 5 % Eosinophils % 3 % Basophils % 0 % Neutrophils # 8.1 H (1.3-7.7) k/uL Lymphocytes # 3.1 (1.0-4.8) k/uL Monocytes # 0.7 (0-1.0) k/uL Eosinophils # 0.3 (0-0.7) k/uL Basophils # 0.0 (0-0.2) k/uL Sodium 139 (137-145) mmol/L Potassium 4.0 (3.5-5.1) mmol/L Chloride 108 H (98-107) mmol/L Carbon Dioxide 22 (22-30) mmol/L Anion Gap 9 mmol/L BUN 18 H (7-17) mg/dL Creatinine 0.72 (0.52-1.04) mg/dL Est GFR (CKD-EPI)AfAm >90 (>60 ml/min/1.73 sqM) Est GFR (CKD-EPI)NonAf >90 (>60 ml/min/1.73 sqM) Glucose 88 (74-99) mg/dL Calcium 9.3 (8.4-10.2) mg/dL Total Bilirubin 0.4 (0.2-1.3) mg/dL AST 25 (14-36) U/L ALT 15 (4-34) U/L Alkaline Phosphatase 96 (38-126) U/L Total Protein 6.8 (6.3-8.2) g/dL Albumin 4.0 (3.5-5.0) g/dL Disposition Clinical Impression: Headache Disposition: HOME SELF-CARE Condition: Good Instructions (If sedation given, give patient instructions): Acute Headache (ED) Is patient prescribed a controlled substance at d/c from ED?: No Referrals: Karthikeyan Pedro MD [Primary Care Provider] - 1-2 days Time of Disposition: 14:58
--- NOTE | 2020-05-20 13:41 | CT ---
EXAMINATION TYPE: CT brain wo con DATE OF EXAM: 05/20/2020 COMPARISON: 12/14/2018 HISTORY: 40-year-old female Headache TECHNIQUE: Examination was done in axial plane without intravenous contrast. Coronal and sagittal r econstructions performed. CT DLP: 1036.4 mGycm Automated exposure control for dose reduction was used. FINDINGS: Earrings are present casting prominent streak artifacts along the parietal convexities. Within this limitation, there is no definite evidence of acute intracranial hemorrhage, acute ischem ic changes, mass, mass-effect, or extra-axial fluid collection. There is no effacement of cerebral s ulci or basal subarachnoid cisterns. There is no hydrocephalus. There is no midline shift. Gutierrez-wh ite matter distinction is preserved. Air-fluid level left maxillary sinus. Mastoid air cells are pneumatized. Orbits and globes are intact . IMPRESSION: 1. Streak artifacts from the patient's earrings. Allowing for this limitation, no definite acute intr acranial abnormality seen. 2. Air-fluid level in the left maxillary sinus suggests acute sinusitis. Clinically correlate.
[2020-05-20 14:00] LABS: Basophils % (A) 0 %; Eosinophils # (A) 0.3 k/uL (0-0.7); Eosinophils % (A) 3 %; HCT 44.9 % (34.0-46.0); HGB 15.1 gm/dL (11.4-16.0); Lymphocytes # (A) 3.1 k/uL (1.0-4.8); Lymphocytes % (A) 25 %; MCH 28.8 pg (25.0-35.0); MCHC 33.6 g/dL (31.0-37.0); MCV 85.6 fL (80.0-100.0); Mean Platelet Volume 6.6; Monocytes # (A) 0.7 k/uL (0-1.0); Monocytes % (A) 5 %; Neutrophils # (A) 8.1 k/uL (1.3-7.7); Neutrophils % (A) 66 %; Platelet Count 396 k/uL (150-450); RBC 5.24 m/uL (3.80-5.40); RDW 13.3 % (11.5-15.5); WBC 12.4 k/uL (3.8-10.6)
[2020-05-20 14:33] LABS: ALT 15 U/L (4-34); AST 25 U/L (14-36); African American GFR (CKD) >90 (>60 ml/min/1.73 sqM); Alkaline Phosphatase 96 U/L (38-126); Anion Gap 9 mmol/L; Blood Urea Nitrogen 18 mg/dL (7-17); Calcium 9.3 mg/dL (8.4-10.2); Carbon Dioxide 22 mmol/L (22-30); Chloride 108 mmol/L (98-107); Glucose 88 mg/dL (74-99); Non-African American GFR(CKD) >90 (>60 ml/min/1.73 sqM); Sodium 139 mmol/L (137-145); Total Bilirubin 0.4 mg/dL (0.2-1.3); Total Protein 6.8 g/dL (6.3-8.2)
[2020-05-20] MEDS ORDERED: HYDROPHILIC CREAM 180 GM TUBE TOPICAL SCH (15:00)
[2020-05-20 15:31] VITALS: BP 130/80; PULSE 90; RESP 16; TEMP 98.2
== END 2020-05-20 15:30 | disposition home or self-care (01) ==
LOC: EC 12:24
DX: R51.9 Headache, unspecified (principal); J32.0 Chronic maxillary sinusitis; D72.829 Elevated white blood cell count, unspecified; K21.9 Gastro-esophageal reflux disease without esophagitis; E03.9 Hypothyroidism, unspecified; Z79.899 Other long term (current) drug therapy; Z79.52 Long term (current) use of systemic steroids; Z79.890 Hormone replacement therapy; Z79.01 Long term (current) use of anticoagulants; Z88.8 Allergy status to other drugs, medicaments and biological substances; Z86.711 Personal history of pulmonary embolism; Z87.19 Personal history of other diseases of the digestive system; Z87.09 Personal history of other diseases of the respiratory system; Z86.718 Personal history of other venous thrombosis and embolism
CPT/HCPCS: 36415; 70450; 80053; 85025; 96361; 96374; 96375; 96376; 99284

== ENCOUNTER 2020-05-21 13:51 | Emergency (ER) | payer BC ==
[2020-05-21 13:55] VITALS: TEMP 99.2
[2020-05-21] MEDS ORDERED: diphenhydrAMINE 50 MG/ML 1 ML VIAL IVP STA (14:13)
[2020-05-21] MEDS ORDERED: HYDROmorphone 0.5 MG/0.5 ML SYRINGE IVP STA ×2 (14:13→15:35)
[2020-05-21] MEDS ORDERED: ONDANSETRON 4 MG/2 ML VIAL IVP STA (14:13)
[2020-05-21] MEDS ORDERED: SODIUM CHLORIDE 0.9% 1,000 ML IV STA (14:13)
--- NOTE | 2020-05-21 14:27 | ED ---
Headache HPI - General Chief Complaint: Headache Stated Complaint: High blood pressure Time Seen by Provider: 05/21/20 14:03 Source: RN notes reviewed Mode of arrival: wheelchair Limitations: no limitations - History of Present Illness Initial Comments: Patient is a 40-year-old female presents to emergency department with her complaining of headache. She was just here yesterday on 05/19/2020 for the same complaint. She had a scan of the head done which showed acute sinusitis. Patient states she is on day 6 out of 10 for antibiotic therapy. She does report a history of migraines with photophobia. She was sitting in bed with her head been around her eyes. She stated that she came back in because the headache got slightly better last night after being discharged in the hospital but came back this morning. She stated that her pain was about an 8 out of 10 that is unrelieved with [id number] or at home medications. She denied any chest pains worse breath nausea vomiting lightheadedness dizziness fever fatigue chills. - Related Data Home Medications Medication Instructions Recorded Confirmed Montelukast Chew [Singulair] 10 mg PO DAILY 02/02/18 05/21/20 Topiramate [Trokendi Xr] 50 mg PO HS 07/18/18 05/21/20 Prucalopride Succinate [Motegrity] 2 mg PO DAILY 01/14/19 05/21/20 oxyCODONE HCL [oxyCODONE HCL (IR)] 10 mg PO Q8H PRN 04/20/19 05/21/20 Linaclotide [Linzess] 290 mcg PO DAILY 05/24/19 05/21/20 Tegaserod Hydrogen Maleate 6 mg PO AC-BID 05/24/19 05/21/20 [Zelnorm] Lansoprazole 30 mg PO BID 08/27/19 05/21/20 Levothyroxine Sodium [Synthroid] 100 mcg PO DAILY 10/04/19 05/21/20 Amoxic-Pot Clav 875-125Mg 1 tab PO BID 05/20/20 05/21/20 [Augmentin 875-125] Diclofenac Sodium [Voltaren] 25 mg PO DAILY PRN 05/20/20 05/21/20 SUMAtriptan SUCCINATE [Imitrex] 100 mg PO DAILY PRN 05/20/20 05/21/20 Previous Rx's Medication Instructions Recorded Scopolamine 1.5MG/72Hr Patch 1 patch TRANSDERM Q72H #10 patch 07/31/18 [TransDerm Scop] Aspirin 81 mg PO DAILY 30 Days chewable 10/16/19 Fondaparinux Sodium [Arixtra] 7.5 mg SQ DAILY #30 ml 10/16/19 Allergies Allergy/AdvReac Type Severity Reaction Status Date / Time metoclopramide [From Reglan] AdvReac Mild jittery Verified 05/21/20 14:56 prochlorperazine AdvReac Mild JITTERY Verified 05/21/20 14:56 [From Compazine] Review of Systems ROS Statement: Those systems with pertinent positive or pertinent negative responses have been documented in the HPI. ROS Other: All systems not noted in ROS Statement are negative. Past Medical History Past Medical History: Deep Vein Thrombosis (DVT), GERD/Reflux, Pulmonary Embolus (PE), Thyroid Disorder Additional Past Medical History / Comment(s): Other hx:Idiopathic gastroparesis, takes little in orally-has J tube for feedings- chronic abdominal pain, R pulmonary embolism -2017, dvt R upper extremity 2018, pancreatitis once in 2018-thought stone somewhere, hypothyroid, chronic anemia, sinus problems, migraine. 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 J tube replaced-last replace in November or December 2018, piccs, mediport insertion , left carpal tunnel Past Anesthesia/Blood Transfusion Reactions: No Reported Reaction Past Psychological History: Depression Smoking Status: Never smoker Past Alcohol Use History: None Reported Past Drug Use History: None Reported - Past Family History Father Family Medical History: Hypertension Additional Family Medical History / Comment(s): Father is 57 yrs old.. Mother Family Medical History: No Reported History Additional Family Medical History / Comment(s): Mother is 58yrs old. General Exam Limitations: no limitations General appearance: alert, in no apparent distress, obese Head exam: Present: atraumatic, normocephalic, normal inspection Eye exam: Present: normal appearance, PERRL, EOMI. Absent: scleral icterus, conjunctival injection, periorbital swelling ENT exam: Present: normal exam, mucous membranes moist Neck exam: Present: normal inspection. Absent: tenderness, meningismus, lymphadenopathy Respiratory exam: Present: normal lung sounds bilaterally. Absent: respiratory distress, wheezes, rales, rhonchi, stridor Cardiovascular Exam: Present: regular rate, normal rhythm, normal heart sounds. Absent: systolic murmur, diastolic murmur, rubs, gallop, clicks GI/Abdominal exam: Present: soft, normal bowel sounds. Absent: distended, tenderness, guarding, rebound, rigid Extremities exam: Present: normal inspection, full ROM, normal capillary refill. Absent: tenderness, pedal edema, joint swelling, calf tenderness Neurological exam: Present: alert, oriented X3, CN II-XII intact Psychiatric exam: Present: normal affect, normal mood Skin exam: Present: warm, dry, intact, normal color. Absent: rash Course Vital Signs 05/21/20 13:53 Temperature 99.2 F Pulse Rate 85 Respiratory 18 Rate Blood Pressure 132/86 O2 Sat by Pulse 100 Oximetry Medical Decision Making - Medical Decision Making 32-year-old female complaining of headache with history of migraines and acute sinusitis. 1 L of normal saline, Benadryl, Zofran, Dilaudid ordered for management. Upon reevaluation patient was doing better but still moderate amount of pain, I don't half milligram of Dilaudid was ordered and given. Case discussed with Dr. Figueroa, it was decided the patient to discharge home with follow-up primary care. Disposition Clinical Impression: Migraine headache, Acute sinusitis Disposition: HOME SELF-CARE Condition: Stable Instructions (If sedation given, give patient instructions): Acute Headache (ED) Additional Instructions: Please return to the Emergency Department if symptoms worsen or any other concerns. Follow-up with primary care that is scheduled TeleMed visit. Take pain medication as prescribed by her primary care. Did get plenty of fluids, rest Is patient prescribed a controlled substance at d/c from ED?: No Referrals: Karthikeyan Pedro MD [Primary Care Provider] - 1-2 days Time of Disposition: 15:37
[2020-05-21 15:48] VITALS: BP 146/95; PULSE 70; RESP 16
== END 2020-05-21 15:54 | disposition home or self-care (01) ==
LOC: EC 13:51
DX: G43.909 Migraine, unspecified, not intractable, without status migrainosus (principal); J01.90 Acute sinusitis, unspecified; E03.9 Hypothyroidism, unspecified; K21.9 Gastro-esophageal reflux disease without esophagitis; G89.29 Other chronic pain; R10.9 Unspecified abdominal pain; Z79.899 Other long term (current) drug therapy; Z79.890 Hormone replacement therapy; Z88.8 Allergy status to other drugs, medicaments and biological substances; Z86.718 Personal history of other venous thrombosis and embolism; Z86.711 Personal history of pulmonary embolism
CPT/HCPCS: 99284; 96374; 96375 ×2; 96376; 96361; J1200; J2405; J1170

== ENCOUNTER 2020-05-25 17:59 | Emergency (ER) | payer BC ==
[2020-05-25 18:02] VITALS: TEMP 98.7
[2020-05-25] MEDS ORDERED: IPRATROPIUM-ALBUTEROL 3 ML NEB INHALATION STA (18:15)
[2020-05-25] MEDS ORDERED: LORazepam 2 MG/ML INJ IV STA (18:15)
--- NOTE | 2020-05-25 18:48 | XR ---
EXAMINATION TYPE: XR chest 1V DATE OF EXAM: 05/25/2020 COMPARISON: 10/19/2019 HISTORY: Cough TECHNIQUE: FINDINGS: Heart and mediastinum are normal. Lungs are clear. Diaphragm is normal. There is right-side d central venous catheter with tip in the right atrium. There is no pleural effusion. Bony thorax is intact. IMPRESSION: Normal chest. No change.
[2020-05-25 20:02] VITALS: BP 121/93; PULSE 117; RESP 18
--- NOTE | 2020-05-25 21:27 | ED ---
SOB HPI - General Chief Complaint: Shortness of Breath Stated Complaint: aspiration Time Seen by Provider: 05/25/20 18:03 Source: patient Mode of arrival: ambulatory Limitations: no limitations - History of Present Illness Initial Comments: Maribel is a 40-year-old female with multiple chronic medical conditions very well-known to our emergency department she presents the ER today via private vehicle for evaluation of a cough. Patient currently being treated for a sinus infection or reports she's just been coughing and coughing so hard she has vomit ed. - Related Data Home Medications Medication Instructions Recorded Confirmed Montelukast Chew [Singulair] 10 mg PO DAILY 02/02/18 05/25/20 Topiramate [Trokendi Xr] 50 mg PO HS 07/18/18 05/25/20 Prucalopride Succinate [Motegrity] 2 mg PO DAILY 01/14/19 05/25/20 oxyCODONE HCL [oxyCODONE HCL (IR)] 10 mg PO Q8H PRN 04/20/19 05/25/20 Linaclotide [Linzess] 290 mcg PO DAILY 05/24/19 05/25/20 Tegaserod Hydrogen Maleate 6 mg PO AC-BID 05/24/19 05/25/20 [Zelnorm] Lansoprazole 30 mg PO BID 08/27/19 05/25/20 Levothyroxine Sodium [Synthroid] 100 mcg PO DAILY 10/04/19 05/25/20 Diclofenac Sodium [Voltaren] 25 mg PO DAILY PRN 05/20/20 05/25/20 SUMAtriptan SUCCINATE [Imitrex] 100 mg PO DAILY PRN 05/20/20 05/25/20 Enoxaparin [Lovenox] 80 mg SQ DAILY 05/25/20 05/25/20 Scopolamine 1.5MG/72Hr Patch 1 patch TRANSDERM Q72H PRN 05/25/20 05/25/20 [TransDerm Scop] Previous Rx's Medication Instructions Recorded Aspirin 81 mg PO DAILY 30 Days chewable 10/16/19 Allergies Allergy/AdvReac Type Severity Reaction Status Date / Time metoclopramide [From Reglan] AdvReac Mild jittery Verified 05/25/20 20:37 prochlorperazine AdvReac Mild JITTERY Verified 02/21/21 20:37 [From Compazine] Review of Systems ROS Statement: Those systems with pertinent positive or pertinent negative responses have been documented in the HPI. ROS Other: All systems not noted in ROS Statement are negative. Past Medical History Past Medical History: Deep Vein Thrombosis (DVT), GERD/Reflux, Pulmonary Embolus (PE), Thyroid Disorder Additional Past Medical History / Comment(s): Other hx:Idiopathic gastroparesis, takes little in orally-has J tube for feedings- chronic abdominal pain, R pulmonary embolism 5-2017, dvt R upper extremity 2018, pancreatitis once in 2018-thought stone somewhere, hypothyroid, chronic anemia, sinus problems, migraine. 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 J tube replaced-last replace in November or December 2018, piccs, mediport insertion , left carpal tunnel Past Anesthesia/Blood Transfusion Reactions: No Reported Reaction Past Psychological History: Depression Smoking Status: Never smoker Past Alcohol Use History: None Reported Past Drug Use History: None Reported - Past Family History Father Family Medical History: Hypertension Additional Family Medical History / Comment(s): Father is 57 yrs old.. Mother Family Medical History: No Reported History Additional Family Medical History / Comment(s): Mother is 58yrs old. General Exam - General Exam Comments Initial Comments: Physical Exam GENERAL: Chronically ill appearing HENT: Normocephalic, Atraumatic. EYES: PERRL, EOMI PULMONARY: Wheezing CARDIOVASCULAR: Tachycardia regular ABDOMEN: Soft and nontender with normal bowel sounds. SKIN: Skin is clear with no lesions or rashes and otherwise unremarkable. : Deferred NEUROLOGIC: Patient is alert and oriented x3. Moving all extremities spontaneously MUSCULOSKELETAL: Normal extremities with adequate strength and full range of motion. No lower extremity swelling or edema. No calf tenderness. PSYCHIATRIC: Normal psychiatric evaluation. Limitations: no limitations Course Vital Signs 05/25/20 05/25/20 05/25/20 17:59 18:50 18:54 Temperature 98.7 F Pulse Rate 124 H 111 H 120 H Respiratory 24 Rate Blood Pressure 138/104 O2 Sat by Pulse 98 Oximetry 05/25/20 20:01 Temperature Pulse Rate 117 H Respiratory 18 Rate Blood Pressure 121/93 O2 Sat by Pulse 99 Oximetry Medical Decision Making - Medical Decision Making She was seen and evaluated history is obtained from patient and review of medical record Patient appears to be having a vocal cord spasm Patient was treated with breathing treatment and a dose of Ativan she had resolution of her cough, chest x-ray was clear the patient be discharged home with continued treatment for her Disposition Clinical Impression: Spasm of vocal cords Disposition: HOME SELF-CARE Condition: Stable Instructions (If sedation given, give patient instructions): Bronchospasm (ED) Is patient prescribed a controlled substance at d/c from ED?: No Referrals: Karthikeyan Pedro MD [Primary Care Provider] - 1-2 days
== END 2020-05-25 21:38 | disposition home or self-care (01) ==
LOC: EC 17:59
DX: J38.5 Laryngeal spasm (principal); R00.0 Tachycardia, unspecified; R06.2 Wheezing; F32.9 Major depressive disorder, single episode, unspecified; K21.9 Gastro-esophageal reflux disease without esophagitis; E07.9 Disorder of thyroid, unspecified; Z79.01 Long term (current) use of anticoagulants; Z79.890 Hormone replacement therapy; Z79.899 Other long term (current) drug therapy; Z88.8 Allergy status to other drugs, medicaments and biological substances; Z86.711 Personal history of pulmonary embolism; Z86.718 Personal history of other venous thrombosis and embolism; Z90.49 Acquired absence of other specified parts of digestive tract
CPT/HCPCS: 94640; 71045; 99285; 96374; J2060

== ENCOUNTER 2020-06-16 17:53 | Emergency (ER) | payer BC ==
[2020-06-16 18:00] VITALS: RESP 18; TEMP 98.3
[2020-06-16] MEDS ORDERED: MORPHINE SULFATE 2 MG/ML SYRINGE IVP STA (19:10)
[2020-06-16] MEDS ORDERED: ONDANSETRON 4 MG/2 ML VIAL IVP STA (19:10)
--- NOTE | 2020-06-16 19:19 | ED ---
Upper Extremity HPI - General Chief Complaint: Extremity Injury, Upper Stated Complaint: rt wrist injury Time Seen by Provider: 06/16/20 18:54 Source: patient, RN notes reviewed Mode of arrival: ambulatory Limitations: no limitations - History of Present Illness Initial Comments: Patient is a 40-year-old female that presents to emergency department compl aining of right wrist pain. She noted that she hurt it while unloading groceries from her truck on Tuesday evening. she notes that she did think that he was serious wrong and she's tried taking Tylenol Motrin [id number] for pain control. While sitting in a chair in the exam room patient was in no apparent discomfort or pain while the wrist was not moving. She noted that she can still move it with some significant pain. After exam patient became diaphoretic and nauseous but stated that she was okay. She denied any weakness or tingling decreased sensation chest pain first breath headache nausea or diarrhea constipation fever fatigue chills - Related Data Home Medications Medication Instructions Recorded Confirmed Montelukast Chew [Singulair] 10 mg PO DAILY 02/02/18 05/25/20 Topiramate [Trokendi Xr] 50 mg PO HS 07/18/18 05/25/20 Prucalopride Succinate [Motegrity] 2 mg PO DAILY 01/14/19 05/25/20 oxyCODONE HCL [oxyCODONE HCL (IR)] 10 mg PO Q8H PRN 04/20/19 05/25/20 Linaclotide [Linzess] 290 mcg PO DAILY 05/24/19 05/25/20 Tegaserod Hydrogen Maleate 6 mg PO AC-BID 05/24/19 05/25/20 [Zelnorm] Lansoprazole 30 mg PO BID 08/27/19 05/25/20 Levothyroxine Sodium [Synthroid] 100 mcg PO DAILY 10/04/19 05/25/20 Diclofenac Sodium [Voltaren] 25 mg PO DAILY PRN 05/20/20 05/25/20 SUMAtriptan SUCCINATE [Imitrex] 100 mg PO DAILY PRN 05/20/20 05/25/20 Enoxaparin [Lovenox] 80 mg SQ DAILY 05/25/20 05/25/20 Scopolamine 1.5MG/72Hr Patch 1 patch TRANSDERM Q72H PRN 05/25/20 05/25/20 [TransDerm Scop] Previous Rx's Medication Instructions Recorded Aspirin 81 mg PO DAILY 30 Days chewable 10/16/19 Allergies Allergy/AdvReac Type Severity Reaction Status Date / Time metoclopramide [From Reglan] AdvReac Mild jittery Verified 06/16/20 18:00 prochlorperazine AdvReac Mild JITTERY Verified 06/16/20 18:00 [From Compazine] Review of Systems ROS Statement: Those systems with pertinent positive or pertinent negative responses have been documented in the HPI. ROS Other: All systems not noted in ROS Statement are negative. Past Medical History Past Medical History: Deep Vein Thrombosis (DVT), GERD/Reflux, Pulmonary Embolus (PE), Thyroid Disorder Additional Past Medical History / Comment(s): Other hx:Idiopathic gastroparesis, takes little in orally-has J tube for feedings- chronic abdominal pain, R pulmonary embolism 5-2017, dvt R upper extremity 2018, pancreatitis once in 2017-thought stone somewhere, hypothyroid, chronic anemia, sinus problems, migraine. 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 J tube replaced-last replace in November or December 2018, piccs, mediport insertion , left carpal tunnel Past Anesthesia/Blood Transfusion Reactions: No Reported Reaction Past Psychological History: Depression Smoking Status: Never smoker Past Alcohol Use History: None Reported Past Drug Use History: None Reported - Past Family History Father Family Medical History: Hypertension Additional Family Medical History / Comment(s): Father is 57 yrs old.. Mother Family Medical History: No Reported History Additional Family Medical History / Comment(s): Mother is 58yrs old. General Exam Limitations: no limitations General appearance: alert, in no apparent distress Head exam: Present: atraumatic, normocephalic, normal inspection Eye exam: Present: normal appearance, PERRL, EOMI. Absent: scleral icterus, conjunctival injection, periorbital swelling ENT exam: Present: normal exam, mucous membranes moist Neck exam: Present: normal inspection. Absent: tenderness, meningismus, lymphadenopathy Respiratory exam: Present: normal lung sounds bilaterally. Absent: respiratory distress, wheezes, rales, rhonchi, stridor Cardiovascular Exam: Present: regular rate, normal rhythm, normal heart sounds. Absent: systolic murmur, diastolic murmur, rubs, gallop, clicks GI/Abdominal exam: Present: soft, normal bowel sounds. Absent: distended, tenderness, guarding, rebound, rigid Extremities exam: Present: full ROM (With significant pain.), normal capillary refill. Absent: normal inspection (Obvious deformity of the right wrist on the radial side, small bump protruding on the ventral side.), tenderness, pedal edema, joint swelling, calf tenderness Neurological exam: Present: alert, oriented X3, CN II-XII intact Psychiatric exam: Present: normal affect, normal mood Skin exam: Present: warm, dry, intact, normal color. Absent: rash Course Vital Signs 06/16/20 17:58 Temperature 98.3 F Pulse Rate 108 H Respiratory 18 Rate Blood Pressure 120/75 O2 Sat by Pulse 98 Oximetry Medical Decision Making - Medical Decision Making 40-year-old female complaining of right wrist pain after injury on Tuesday. 2 mg of morphine, 4 mg of Zofran, right wrist x-ray ordered. Negative x-ray. Most likely soft tissue injury such as ligament damage. We'll need to follow-up with orthopedics. patient declined the need for any splints or pain medication only. Case discussed with Dr. Castro, patient discharged home with follow-up to orthopedics. - Radiology Data Radiology results: report reviewed, image reviewed Negative right wrist exam. No fracture. Disposition Clinical Impression: Right wrist injury, Wrist pain Disposition: HOME SELF-CARE Condition: Stable Instructions (If sedation given, give patient instructions): Wrist Injury (ED) Additional Instructions: Please return to the Emergency Department if symptoms worsen or any other concerns. Follow-up with orthopedics as soon as possible. Continue take [id number] pain medication for management. Avoid any strenuous usual activity with right wrist. Is patient prescribed a controlled substance at d/c from ED?: No Referrals: Karthikeyan Pedro MD [Primary Care Provider] - 1-2 days Anup Rose DO [Doctor of Osteopathic Medicine] - 1-2 days Time of Disposition: 19:57
--- NOTE | 2020-06-16 19:48 | XR ---
EXAMINATION TYPE: XR wrist complete RT DATE OF EXAM: 06/16/2020 COMPARISON: NONE HISTORY: Wrist pain TECHNIQUE: 4 views FINDINGS: I see no fracture nor dislocation. Joint spaces are normal. Carpal bones are intact. Metaca rpals are intact. IMPRESSION: Negative right wrist exam. No fracture.
[2020-06-16 20:07] VITALS: BP 121/75; PULSE 97
== END 2020-06-16 20:11 | disposition home or self-care (01) ==
LOC: EC 17:53
DX: S69.91XA Unspecified injury of right wrist, hand and finger(s), initial encounter (principal); K21.9 Gastro-esophageal reflux disease without esophagitis; F32.9 Major depressive disorder, single episode, unspecified; Z86.718 Personal history of other venous thrombosis and embolism; X58.XXXA Exposure to other specified factors, initial encounter
CPT/HCPCS: 73110; 99283; 96374; 96375; J2405; J2270

== ENCOUNTER 2020-07-21 13:29 | Emergency (ER) | payer BC ==
[2020-07-21 14:26] VITALS: RESP 18
[2020-07-21] MEDS ORDERED: SODIUM CHLORIDE 0.9% 1,000 ML IV ONE (15:31)
[2020-07-21] MEDS ORDERED: HYDROmorphone 0.5 MG/0.5 ML SYRINGE IVP STA (15:32)
--- NOTE | 2020-07-21 15:41 | ED ---
General Adult HPI - General Chief complaint: Abdominal Pain Stated complaint: vomiting, abd pain Time Seen by Provider: 07/21/20 14:25 Source: patient, RN notes reviewed, old records reviewed Mode of arrival: ambulatory Limitations: no limitations - History of Present Illness Initial comments: This is a 40-year-old female who presents emergency department with past medical history significant for gastroparesis. Patient states she's got a gastric stim ulator in place. Patient states it was just put in 1-1/2 weeks ago. Patient states that she has had one in the past as well. Patient denies any fevers or chills patient denies cough or chest pain. Patient states she does have some upper abdominal pain in the right upper quadrant and epigastric region. Patient states this is typical of her when she gets these vomiting episodes. Patient states she did vomit last couple days he cannot keep anything down. Patient states she's taken Zofran and Phenergan at home but it has not worked. State patient states this is typical of her episodes - Related Data Home Medications Medication Instructions Recorded Confirmed Montelukast Chew [Singulair] 10 mg PO DAILY 02/02/18 05/25/20 Topiramate [Trokendi Xr] 50 mg PO HS 07/18/18 05/25/20 Prucalopride Succinate [Motegrity] 2 mg PO DAILY 01/14/19 05/25/20 oxyCODONE HCL [oxyCODONE HCL (IR)] 10 mg PO Q8H PRN 04/20/19 05/25/20 Linaclotide [Linzess] 290 mcg PO DAILY 05/24/19 05/25/20 Tegaserod Hydrogen Maleate 6 mg PO AC-BID 05/24/19 05/25/20 [Zelnorm] Lansoprazole 30 mg PO BID 08/27/19 05/25/20 Levothyroxine Sodium [Synthroid] 100 mcg PO DAILY 10/04/19 05/25/20 Diclofenac Sodium [Voltaren] 25 mg PO DAILY PRN 05/20/20 05/25/20 SUMAtriptan SUCCINATE [Imitrex] 100 mg PO DAILY PRN 05/20/20 05/25/20 Enoxaparin [Lovenox] 80 mg SQ DAILY 05/25/20 05/25/20 Scopolamine 1.5MG/72Hr Patch 1 patch TRANSDERM Q72H PRN 05/25/20 05/25/20 [TransDerm Scop] Previous Rx's Medication Instructions Recorded Aspirin 81 mg PO DAILY 30 Days chewable 10/16/19 Allergies Allergy/AdvReac Type Severity Reaction Status Date / Time metoclopramide [From Reglan] AdvReac Mild jittery Verified 06/16/20 18:00 prochlorperazine AdvReac Mild JITTERY Verified 06/16/20 18:00 [From Compazine] Review of Systems ROS Statement: Those systems with pertinent positive or pertinent negative responses have been documented in the HPI. ROS Other: All systems not noted in ROS Statement are negative. Past Medical History Past Medical History: Deep Vein Thrombosis (DVT), GERD/Reflux, Pulmonary Embolus (PE), Thyroid Disorder Additional Past Medical History / Comment(s): Other hx:Idiopathic gastroparesis, takes little in orally-has J tube for feedings- chronic abdominal pain, R pulmonary embolism -2017, dvt R upper extremity 2018, pancreatitis once in 18-thought stone somewhere, hypothyroid, chronic anemia, sinus problems, migraine. 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 J tube replaced-last replace in November or December 2018, piccs, mediport insertion , left carpal tunnel, right wrist cyst removal Past Anesthesia/Blood Transfusion Reactions: No Reported Reaction Past Psychological History: Depression Smoking Status: Never smoker Past Alcohol Use History: None Reported Past Drug Use History: None Reported - Past Family History Father Family Medical History: Hypertension Additional Family Medical History / Comment(s): Father is 57 yrs old.. Mother Family Medical History: No Reported History Additional Family Medical History / Comment(s): Mother is 58yrs old. General Exam - General Exam Comments Initial Comments: GENERAL: Patient is well-developed and well-nourished. Patient is nontoxic and well-hydr ated and is in mild distress. ENT: Neck is soft and supple. No significant lymphadenopathy is noted. Oropharynx is clear. Moist mucous membranes. Neck has full range of motion without eliciting any pain. EYES: The sclera were anicteric and conjunctiva were pink and moist. Extraocular movements were intact and pupils were equal round and reactive to light. Eyelids were unremarkable. PULMONARY: Unlabored respirations. Good breath sounds bilaterally. No audible rales rhonchi or wheezing was noted. CARDIOVASCULAR: There is a regular rate and rhythm without any murmurs gallops or rubs. ABDOMEN: Tender epigastric and right upper quadrant. SKIN: Skin is clear with no lesions or rashes and otherwise unremarkable. NEUROLOGIC: Patient is alert and oriented x3. Cranial nerves II through XII are grossly intact. Motor and sensory are also intact. Normal speech, volume and content. Symmetrical smile. MUSCULOSKELETAL: Normal extremities with adequate strength and full range of motion. LYMPHATICS: No significant lymphadenopathy is noted PSYCHIATRIC: Normal psychiatric evaluation. Limitations: no limitations Course Vital Signs 07/21/20 07/21/20 14:21 17:18 Temperature 98 F 98.6 F Pulse Rate 95 73 Respiratory 18 18 Rate Blood Pressure 115/77 114/74 O2 Sat by Pulse 99 98 Oximetry Medical Decision Making - Medical Decision Making EKG shows normal sinus rhythm at 72 bpm MN interval is 130s dresses 76 QT interval 398 QTC is 435. Patient's EKG shows no ST segment elevation or depression. Patient received Zofran and droperidol in the emergency department. - Lab Data Result diagrams: 07/21/20 16:21 07/21/20 16:21 Lab Results 07/21/20 07/21/20 07/21/20 Range/Units 16:21 16:21 16:21 WBC 12.0 H (3.8-10.6) k/uL RBC 5.30 (3.80-5.40) m/uL Hgb 16.0 (11.4-16.0) gm/dL Hct 46.5 H (34.0-46.0) % MCV 87.7 (80.0-100.0) fL MCH 30.2 (25.0-35.0) pg MCHC 34.5 (31.0-37.0) g/dL RDW 14.2 (11.5-15.5) % Plt Count 413 (150-450) k/uL MPV 6.4 Neutrophils % 76 % Lymphocytes % 16 % Monocytes % 3 % Eosinophils % 3 % Basophils % 1 % Neutrophils # 9.2 H (1.3-7.7) k/uL Lymphocytes # 1.9 (1.0-4.8) k/uL Monocytes # 0.4 (0-1.0) k/uL Eosinophils # 0.3 (0-0.7) k/uL Basophils # 0.1 (0-0.2) k/uL Sodium 136 L (137-145) mmol/L Potassium 4.7 (3.5-5.1) mmol/L Chloride 105 (98-107) mmol/L Carbon Dioxide 23 (22-30) mmol/L Anion Gap 8 mmol/L BUN 16 (7-17) mg/dL Creatinine 0.95 (0.52-1.04) mg/dL Est GFR (CKD-EPI)AfAm 88 (>60 ml/min/1.73 sqM) Est GFR (CKD-EPI)NonAf 77 (>60 ml/min/1.73 sqM) Glucose 97 (74-99) mg/dL Calcium 10.0 (8.4-10.2) mg/dL Total Bilirubin 0.3 (0.2-1.3) mg/dL AST 21 (14-36) U/L ALT 34 (4-34) U/L Alkaline Phosphatase 136 H (38-126) U/L Total Protein 7.0 (6.3-8.2) g/dL Albumin 4.3 (3.5-5.0) g/dL Amylase 83 (30-110) U/L Lipase 36 (23-300) U/L Urine Color Yellow Urine Appearance Clear (Clear) Urine pH 7.0 (5.0-8.0) Ur Specific [place] 1.022 (1.001-1.035) Urine Protein Negative (Negative) Urine Glucose (UA) Negative (Negative) Urine Ketones Negative (Negative) Urine Blood Moderate H (Negative) Urine Nitrite Negative (Negative) Urine Bilirubin Negative (Negative) Urine Urobilinogen <2.0 (<2.0) mg/dL Ur Leukocyte Esterase Negative (Negative) Urine RBC 2 (0-5) /hpf Urine WBC 1 (0-5) /hpf Ur Squamous Epith Cells 6 H (0-4) /hpf Urine Bacteria Rare H (None) /hpf Urine Mucus Occasional H (None) /hpf Disposition Clinical Impression: Gastroparesis Disposition: HOME SELF-CARE Instructions (If sedation given, give patient instructions): Gastroparesis (ED) Is patient prescribed a controlled substance at d/c from ED?: No Referrals: Karthikeyan Pedro MD [Primary Care Provider] - 1-2 days Time of Disposition: 18:20
[2020-07-21] MEDS ORDERED: ONDANSETRON 4 MG/2 ML VIAL IVP STA (16:03)
[2020-07-21 16:38] LABS: Basophils # (A) 0.1 k/uL (0-0.2); Basophils % (A) 1 %; Eosinophils # (A) 0.3 k/uL (0-0.7); Eosinophils % (A) 3 %; HCT 46.5 % (34.0-46.0); Lymphocytes # (A) 1.9 k/uL (1.0-4.8); Lymphocytes % (A) 16 %; MCH 30.2 pg (25.0-35.0); MCHC 34.5 g/dL (31.0-37.0); MCV 87.7 fL (80.0-100.0); Mean Platelet Volume 6.4; Monocytes # (A) 0.4 k/uL (0-1.0); Monocytes % (A) 3 %; Neutrophils # (A) 9.2 k/uL (1.3-7.7); Neutrophils % (A) 76 %; Platelet Count 413 k/uL (150-450); RDW 14.2 % (11.5-15.5)
[2020-07-21 16:45] LABS: Albumin 4.3 g/dL (3.5-5.0); Potassium 4.7 mmol/L (3.5-5.1); Total Bilirubin 0.3 mg/dL (0.2-1.3)
[2020-07-21 17:23] VITALS: BP 114/74; PULSE 73; TEMP 98.6
[2020-07-21 17:33] LABS: Appearance,Urine Clear (Clear); Bacteria,Urine Rare /hpf; Bilirubin,Urine Negative (Negative); Blood,Urine Moderate (Negative); Color,Urine Yellow; Glucose,Urine (UA) Negative (Negative); Ketones,Urine Negative (Negative); Leukocyte Esterase,Urine Negative (Negative); Mucus,Urine Occasional /hpf; Nitrite,Urine Negative (Negative); Protein,Urine Negative (Negative); RBC,Urine 2 /hpf (0-5); Specific Gravity,Urine 1.022 (1.001-1.035); Squamous Epithelial Cell,Urine 6 /hpf (0-4); Urobilinogen,Urine <2.0 mg/dL (<2.0); WBC,Urine 1 /hpf (0-5)
== END 2020-07-21 18:29 | disposition home or self-care (01) ==
LOC: EC 13:29
DX: K31.84 Gastroparesis (principal); F32.9 Major depressive disorder, single episode, unspecified; E03.9 Hypothyroidism, unspecified; Z86.711 Personal history of pulmonary embolism; Z86.718 Personal history of other venous thrombosis and embolism; Z90.49 Acquired absence of other specified parts of digestive tract; Z90.09 Acquired absence of other part of head and neck
CPT/HCPCS: 36415; 93005; 80053; 82150; 83690; 85025; 81001; 99284; 96374; 96375 ×2; J2405; J1170; J1790

== ENCOUNTER 2020-09-03 12:44 | Emergency (ER) | payer BC ==
[2020-09-03 13:53] LABS: Glucose,Whole Blood 139 mg/dL (75-99)
[2020-09-03] MEDS ORDERED: ONDANSETRON 4 MG/2 ML VIAL IVP STA (13:53)
[2020-09-03] MEDS ORDERED: HYDROmorphone 1 MG/ML 1 ML SYRINGE IVP STA ×2 (13:53→16:02)
[2020-09-03] MEDS ORDERED: SODIUM CHLORIDE 0.9% 1,000 ML IV STA (13:53)
--- NOTE | 2020-09-03 14:14 | ED ---
Abdominal Pain HPI - General Chief Complaint: Abdominal Pain Stated Complaint: Abd/Back Pain Time Seen by Provider: 09/03/20 13:34 Source: patient Mode of arrival: ambulatory Limitations: no limitations - History of Present Illness Initial Comments: 40 year-old female patient presents to the emergency department for evaluation of lower abdominal pain and back pain. States symptoms started two days ago and are worsening. Denies any fever or chills. Denies nausea or vomiting. States that she does have chronic abdominal pain due to gastroparesis, has jejunostomy tube, but this pain is different. Does report some dysuria and urinary frequency. No bowel movement today. Multiple abdominal surgeries. Patient denies any recent rash, cough, shortness of breath, chest pain, numbness, tingling, dizziness, weakness, headache, visual changes, or any other complaints. - Related Data Home Medications Medication Instructions Recorded Confirmed Montelukast Chew [Singulair] 10 mg PO DAILY 02/02/18 09/03/20 Prucalopride Succinate [Motegrity] 2 mg PO DAILY 01/14/19 09/03/20 oxyCODONE HCL [oxyCODONE HCL (IR)] 10 mg PO Q8H PRN 04/20/19 09/03/20 Linaclotide [Linzess] 290 mcg PO DAILY 05/24/19 09/03/20 Tegaserod Hydrogen Maleate 6 mg PO AC-BID 05/24/19 09/03/20 [Zelnorm] Lansoprazole 30 mg PO BID 08/27/19 09/03/20 Levothyroxine Sodium [Synthroid] 100 mcg PO DAILY 10/04/19 09/03/20 SUMAtriptan SUCCINATE [Imitrex] 100 mg PO DAILY PRN 05/20/20 09/03/20 Scopolamine 1.5MG/72Hr Patch 1 patch TRANSDERM Q72H PRN 05/25/20 09/03/20 [TransDerm Scop] Previous Rx's Medication Instructions Recorded Aspirin 81 mg PO DAILY 30 Days chewable 10/16/19 Allergies Allergy/AdvReac Type Severity Reaction Status Date / Time metoclopramide [From Reglan] AdvReac Mild jittery Verified 09/03/20 13:54 prochlorperazine AdvReac Mild JITTERY Verified 09/03/20 13:54 [From Compazine] Review of Systems ROS Statement: Those systems with pertinent positive or pertinent negative responses have been documented in the HPI. ROS Other: All systems not noted in ROS Statement are negative. Past Medical History Past Medical History: Deep Vein Thrombosis (DVT), GERD/Reflux, Pulmonary Embolus (PE), Thyroid Disorder Additional Past Medical History / Comment(s): Other hx:Idiopathic gastroparesis, takes little in orally-has J tube for feedings- chronic abdominal pain, R pulmonary embolism 5-2017, dvt R upper extremity 2018, pancreatitis once in 2018-thought stone somewhere, hypothyroid, chronic anemia, sinus problems, migraine. 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 J tube replaced-last replace in November or December 2018, piccs, mediport insertion , left carpal tunnel, right wrist cyst removal Past Anesthesia/Blood Transfusion Reactions: No Reported Reaction Past Psychological History: Depression Smoking Status: Never smoker Past Alcohol Use History: None Reported Past Drug Use History: None Reported - Past Family History Father Family Medical History: Hypertension Additional Family Medical History / Comment(s): Father is 57 yrs old.. Mother Family Medical History: No Reported History Additional Family Medical History / Comment(s): Mother is 58yrs old. General Exam Limitations: no limitations General appearance: alert, in no apparent distress, other (Social well- developed, well-nourished adult female patient who is diaphoretic and appears uncomfortable. Vital signs upon presentation are temperature 98.3F, pulse 100, respirations 17, blood pressure 108/78, pulse ox 90% on room air.) Eye exam: Present: normal appearance, PERRL, EOMI. Absent: scleral icterus, conjunctival injection, periorbital swelling ENT exam: Present: normal exam, normal oropharynx, mucous membranes moist Respiratory exam: Present: normal lung sounds bilaterally. Absent: respiratory distress, wheezes, rales, rhonchi, stridor Cardiovascular Exam: Present: regular rate, normal rhythm, normal heart sounds. Absent: systolic murmur, diastolic murmur, rubs, gallop, clicks GI/Abdominal exam: Present: soft, tenderness (Right lower quadrant), normal bowel sounds. Absent: distended, guarding, rebound, rigid Neurological exam: Present: alert, oriented X3, CN II-XII intact Psychiatric exam: Present: normal affect, normal mood Skin exam: Present: warm, dry, intact, normal color. Absent: rash Course Vital Signs 09/03/20 09/03/20 09/03/20 13:12 15:00 15:30 Temperature 98.3 F Pulse Rate 100 82 86 Respiratory 17 16 18 Rate Blood Pressure 108/78 132/78 138/78 O2 Sat by Pulse 100 98 98 Oximetry Medical Decision Making - Medical Decision Making 40-year-old female patient presented to the emergency department today for evaluation of abdominal pain and back pain. States the pain is in the lower abdomen. Physical examination did reveal some right lower quadrant tenderness. Patient while waiting to be evaluated did have an episode where she became quite diaphoretic. Vital signs are within normal range, glucose normal. EKG was sinus rhythm. We did immediately obtain IV access, sent her to CT which showed no acute abnormality possible enteritis. Episode was possibly due to vasovagal reaction. No further episodes during evaluation. Labs reviewed and were unremarkable. She is given pain medication nausea medication. Upon reevaluation resting comfortably in bed. States she is feeling better. She does feel comfortable being discharged home at this time. She is instructed to follow-up with her primary care physician for recheck in 1-2 days. Return parameters were discussed in detail. She verbalizes understanding and agrees this plan. Case discussed with my attending Dr. Chapin. - Lab Data Result diagrams: 09/03/20 15:02 09/03/20 15:02 Lab Results 09/03/20 09/03/20 09/03/20 Range/Units 13:48 15:02 15:02 WBC 5.3 (3.8-10.6) k/uL RBC 4.88 (3.80-5.40) m/uL Hgb 14.7 (11.4-16.0) gm/dL Hct 43.5 (34.0-46.0) % MCV 89.2 (80.0-100.0) fL MCH 30.2 (25.0-35.0) pg MCHC 33.8 (31.0-37.0) g/dL RDW 13.6 (11.5-15.5) % Plt Count 333 (150-450) k/uL MPV 6.7 Neutrophils % 69 % Lymphocytes % 22 % Monocytes % 6 % Eosinophils % 2 % Basophils % 1 % Neutrophils # 3.6 (1.3-7.7) k/uL Lymphocytes # 1.1 (1.0-4.8) k/uL Monocytes # 0.3 (0-1.0) k/uL Eosinophils # 0.1 (0-0.7) k/uL Basophils # 0.0 (0-0.2) k/uL Sodium (137-145) mmol/L Potassium (3.5-5.1) mmol/L Chloride (98-107) mmol/L Carbon Dioxide (22-30) mmol/L Anion Gap mmol/L BUN (7-17) mg/dL Creatinine (0.52-1.04) mg/dL Est GFR (CKD-EPI)AfAm (>60 ml/min/1.73 sqM) Est GFR (CKD-EPI)NonAf (>60 ml/min/1.73 sqM) Glucose (74-99) mg/dL POC Glucose (mg/dL) 139 H (75-99) mg/dL POC Glu [employer] System Maintainer SARTHAK CruzySharla Plasma Lactic Acid Frank (0.7-2.0) mmol/L Calcium (8.4-10.2) mg/dL Total Bilirubin (0.2-1.3) mg/dL AST (14-36) U/L ALT (4-34) U/L Alkaline Phosphatase (38-126) U/L Total Protein (6.3-8.2) g/dL Albumin (3.5-5.0) g/dL Amylase (30-110) U/L Lipase (23-300) U/L Urine Color Light Yellow Urine Appearance Clear (Clear) Urine pH 6.5 (5.0-8.0) Ur Specific [place] >1.050 H (1.001-1.035) Urine Protein Negative (Negative) Urine Glucose (UA) Negative (Negative) Urine Ketones Negative (Negative) Urine Blood Large H (Negative) Urine Nitrite Negative (Negative) Urine Bilirubin Negative (Negative) Urine Urobilinogen <2.0 (<2.0) mg/dL Ur Leukocyte Esterase Trace H (Negative) Urine RBC 4 (0-5) /hpf Urine WBC 3 (0-5) /hpf Ur Squamous Epith Cells 13 H (0-4) /hpf Urine Mucus Rare H (None) /hpf 09/03/20 09/03/20 Range/Units 15:02 15:02 WBC (3.8-10.6) k/uL RBC (3.80-5.40) m/uL Hgb (11.4-16.0) gm/dL Hct (34.0-46.0) % MCV (80.0-100.0) fL MCH (25.0-35.0) pg MCHC (31.0-37.0) g/dL RDW (11.5-15.5) % Plt Count (150-450) k/uL MPV Neutrophils % % Lymphocytes % % Monocytes % % Eosinophils % % Basophils % % Neutrophils # (1.3-7.7) k/uL Lymphocytes # (1.0-4.8) k/uL Monocytes # (0-1.0) k/uL Eosinophils # (0-0.7) k/uL Basophils # (0-0.2) k/uL Sodium 137 (137-145) mmol/L Potassium 4.2 (3.5-5.1) mmol/L Chloride 106 (98-107) mmol/L Carbon Dioxide 22 (22-30) mmol/L Anion Gap 9 mmol/L BUN 8 (7-17) mg/dL Creatinine 0.66 (0.52-1.04) mg/dL Est GFR (CKD-EPI)AfAm >90 (>60 ml/min/1.73 sqM) Est GFR (CKD-EPI)NonAf >90 (>60 ml/min/1.73 sqM) Glucose 118 H (74-99) mg/dL POC Glucose (mg/dL) (75-99) mg/dL POC Glu [employer] System Maintainer ID Plasma Lactic Acid Frank 1.5 (0.7-2.0) mmol/L Calcium 9.6 (8.4-10.2) mg/dL Total Bilirubin 0.3 (0.2-1.3) mg/dL AST 31 (14-36) U/L ALT 57 H (4-34) U/L Alkaline Phosphatase 196 H (38-126) U/L Total Protein 6.6 (6.3-8.2) g/dL Albumin 4.0 (3.5-5.0) g/dL Amylase 60 (30-110) U/L Lipase 40 (23-300) U/L Urine Color Urine Appearance (Clear) Urine pH (5.0-8.0) Ur Specific [place] (1.001-1.035) Urine Protein (Negative) Urine Glucose (UA) (Negative) Urine Ketones (Negative) Urine Blood (Negative) Urine Nitrite (Negative) Urine Bilirubin (Negative) Urine Urobilinogen (<2.0) mg/dL Ur Leukocyte Esterase (Negative) Urine RBC (0-5) /hpf Urine WBC (0-5) /hpf Ur Squamous Epith Cells (0-4) /hpf Urine Mucus (None) /hpf - EKG Data -: EKG Interpreted by Tn EKG Comments: EKG obtained at 1356 shows normal sinus rhythm with a ventricular rate of 81, NV interval 1:30, QR spiritism 90, QT 386, QTc 448. No evidence of ST elevation or depression. - Radiology Data Radiology results: report reviewed, image reviewed CT abdomen and pelvis showed correlate for enteritis. Postop changes. Disposition Clinical Impression: Abdominal pain, Vasovagal reaction Disposition: HOME SELF-CARE Condition: Good Instructions (If sedation given, give patient instructions): Abdominal Pain (ED) Additional Instructions: Follow up with her primary care physician for recheck in 1-2 days. Return to the emergency department for any new, worsening, or concerning symptoms. Is patient prescribed a controlled substance at d/c from ED?: No Referrals: Karthikeyan Pedro MD [Primary Care Provider] - 1-2 days Time of Disposition: 16:15
--- NOTE | 2020-09-03 14:53 | CT ---
EXAMINATION TYPE: CT abdomen pelvis w con DATE OF EXAM: 09/03/2020 COMPARISON: CT 07/31/2019 HISTORY: pain, back pain, diaphoresis, history of idiopathic gastroparesis CT DLP: 1283.2 mGycm Automated exposure control for dose reduction was used. TECHNIQUE: Helical acquisition of images from the lung bases through the pelvis have been completed. CONTRAST: Performed without Oral Contrast and with IV Contrast, patient injected with 100 mL of Isovue 300. FINDINGS: There is a generator over the anterior lower abdomen wall in the subcutaneous fat, leads ar e coursing to the level of the anterior aspect of the stomach, there is a jejunal feeding tube in karen ce. Sutures noted along the superior margin of the stomach. There is a subcutaneous soft tissue nodul e at the infraumbilical location anterior abdominal wall measuring 13 mm, possible sebaceous cyst or injection granuloma. LUNG BASES: No significant abnormality is appreciated. AORTA: No significant abnormality is appreciated. LIVER/GB: Patient is post cholecystectomy. There is some prominence of intrahepatic biliary ducts, no evident liver mass PANCREAS: No significant abnormality is seen. SPLEEN: No significant abnormality is seen. ADRENALS: No significant abnormality is seen. KIDNEYS: No significant abnormality is seen. REPRODUCTIVE ORGANS: Intrauterine contraceptive device is in place. BOWEL: Fluid-filled loops of small and large bowel are present. No evident bowel obstruction. No dwayne endicitis. FREE AIR: No Free Air visible. ASCITES: None visible. PELVIC ADENOPATHY: None visualized. RETROPERITONEAL ADENOPATHY: No Retroperitoneal Adenopathy visible. URINARY BLADDER: No significant abnormality is seen. OSSEOUS STRUCTURES: No significant abnormality is seen. IMPRESSION: Correlate for enteritis. Postop changes.
[2020-09-03 15:20] LABS: Basophils % (A) 1 %; Eosinophils # (A) 0.1 k/uL (0-0.7); Eosinophils % (A) 2 %; HCT 43.5 % (34.0-46.0); HGB 14.7 gm/dL (11.4-16.0); Lymphocytes # (A) 1.1 k/uL (1.0-4.8); Lymphocytes % (A) 22 %; MCH 30.2 pg (25.0-35.0); MCHC 33.8 g/dL (31.0-37.0); MCV 89.2 fL (80.0-100.0); Mean Platelet Volume 6.7; Monocytes # (A) 0.3 k/uL (0-1.0); Monocytes % (A) 6 %; Neutrophils # (A) 3.6 k/uL (1.3-7.7); Neutrophils % (A) 69 %; Platelet Count 333 k/uL (150-450); RBC 4.88 m/uL (3.80-5.40); RDW 13.6 % (11.5-15.5); WBC 5.3 k/uL (3.8-10.6)
[2020-09-03 15:29] LABS: ALT 57 U/L (4-34); AST 31 U/L (14-36); African American GFR (CKD) >90 (>60 ml/min/1.73 sqM); Alkaline Phosphatase 196 U/L (38-126); Amylase 60 U/L (30-110); Anion Gap 9 mmol/L; Blood Urea Nitrogen 8 mg/dL (7-17); Calcium 9.6 mg/dL (8.4-10.2); Carbon Dioxide 22 mmol/L (22-30); Chloride 106 mmol/L (98-107); Glucose 118 mg/dL (74-99); Lipase 40 U/L (23-300); Non-African American GFR(CKD) >90 (>60 ml/min/1.73 sqM); Potassium 4.2 mmol/L (3.5-5.1); Sodium 137 mmol/L (137-145); Total Bilirubin 0.3 mg/dL (0.2-1.3); Total Protein 6.6 g/dL (6.3-8.2)
[2020-09-03 16:02] LABS: Appearance,Urine Clear (Clear); Bilirubin,Urine Negative (Negative); Blood,Urine Large (Negative); Color,Urine Light Yellow; Glucose,Urine (UA) Negative (Negative); Ketones,Urine Negative (Negative); Leukocyte Esterase,Urine Trace (Negative); Mucus,Urine Rare /hpf; Nitrite,Urine Negative (Negative); PH, Urine 6.5 (5.0-8.0); Protein,Urine Negative (Negative); RBC,Urine 4 /hpf (0-5); Squamous Epithelial Cell,Urine 13 /hpf (0-4); Urobilinogen,Urine <2.0 mg/dL (<2.0); WBC,Urine 3 /hpf (0-5)
[2020-09-03 16:04] LABS: Specific Gravity,Urine >1.050 (1.001-1.035)
[2020-09-03 17:28] VITALS: BP 132/77; PULSE 81; RESP 16; TEMP 98
== END 2020-09-03 16:30 | disposition home or self-care (01) ==
LOC: EC 12:44
DX: R10.31 Right lower quadrant pain (principal); R55 Syncope and collapse; E03.9 Hypothyroidism, unspecified; K21.9 Gastro-esophageal reflux disease without esophagitis; Z86.718 Personal history of other venous thrombosis and embolism; Z86.711 Personal history of pulmonary embolism; Z90.49 Acquired absence of other specified parts of digestive tract; Z90.09 Acquired absence of other part of head and neck; F32.9 Major depressive disorder, single episode, unspecified
CPT/HCPCS: 36415; 80053; 82150; 83605; 83690; 85025; 81001; 74177; 99284; 96374; 96376; 96375; 96361; J2405; J1170; Q9967; 93005

== ENCOUNTER 2020-09-08 14:24 | Inpatient (IN) | payer BC ==
[2020-09-08] MEDS ORDERED: SODIUM CHLORIDE 0.9% 1,000 ML IV STA (15:46)
[2020-09-08] MEDS ORDERED: ONDANSETRON 4 MG/2 ML VIAL IVP STA (15:47)
[2020-09-08] MEDS ORDERED: HYDROmorphone 1 MG/ML 1 ML SYRINGE IVP STA ×2 (15:47→17:59)
--- NOTE | 2020-09-08 16:18 | XR ---
EXAMINATION TYPE: XR KUB DATE OF EXAM: 09/08/2020 4:11 PM CLINICAL HISTORY: Abdominal pain with nausea and vomiting. History of gastroparesis. TECHNIQUE: Two Upright KUB images of the abdomen are obtained. COMPARISON: CT 5 days ago. FINDINGS: Scattered gas seen in nondistended small and large bowel loops. Gastric stimulator device r edemonstrated. Radiodense ball in left-sided bowel loop again seen. Partial visualization of right sided central venous catheter terminating near tricuspid valve. Cholec ystectomy clips redemonstrated. No free air. Metallic IUD overlies the pelvis. Lung bases remain pipe r. IMPRESSION: Overall nonobstructive bowel gas pattern redemonstrated.
--- NOTE | 2020-09-08 16:28 | ED ---
General Adult HPI - General Chief complaint: Nausea/Vomiting/Diarrhea Stated complaint: ABD pain Time Seen by Provider: 09/08/20 15:32 Source: patient, RN notes reviewed, old records reviewed Mode of arrival: ambulatory Limitations: no limitations - History of Present Illness Initial comments: 40-year-old female with history of gastroparesis status post gastric stimulator and J-tube presenting for evaluation of vomiting and abdominal pain. Abdominal pain predominantly on the right side. She did have similar symptoms although not as severe within the last 1 week. She has also had several episodes of vomiting. She attempted to treat symptoms at home with IV fluids through her Mediport this did not significantly improve her symptoms. She had computed tomography scan performed on September 03. No reported fevers. Patient has had normal bowel movements. - Related Data Home Medications Medication Instructions Recorded Confirmed Montelukast Chew [Singulair] 10 mg PO DAILY 02/02/18 09/03/20 Prucalopride Succinate [Motegrity] 2 mg PO DAILY 01/14/19 09/03/20 oxyCODONE HCL [oxyCODONE HCL (IR)] 10 mg PO Q8H PRN 04/20/19 09/03/20 Linaclotide [Linzess] 290 mcg PO DAILY 05/24/19 09/03/20 Tegaserod Hydrogen Maleate 6 mg PO AC-BID 05/24/19 09/03/20 [Zelnorm] Lansoprazole 30 mg PO BID 08/27/19 09/03/20 Levothyroxine Sodium [Synthroid] 100 mcg PO DAILY 10/04/19 09/03/20 SUMAtriptan SUCCINATE [Imitrex] 100 mg PO DAILY PRN 05/20/20 09/03/20 Scopolamine 1.5MG/72Hr Patch 1 patch TRANSDERM Q72H PRN 05/25/20 09/03/20 [TransDerm Scop] Previous Rx's Medication Instructions Recorded Aspirin 81 mg PO DAILY 30 Days chewable 10/16/19 Allergies Allergy/AdvReac Type Severity Reaction Status Date / Time metoclopramide [From Reglan] AdvReac Mild jittery Verified 09/08/20 14:54 prochlorperazine AdvReac Mild JITTERY Verified 09/08/20 14:54 [From Compazine] Review of Systems ROS Statement: Those systems with pertinent positive or pertinent negative responses have been documented in the HPI. ROS Other: All systems not noted in ROS Statement are negative. Past Medical History Past Medical History: Deep Vein Thrombosis (DVT), GERD/Reflux, Pulmonary Embolus (PE), Thyroid Disorder Additional Past Medical History / Comment(s): Other hx:Idiopathic gastroparesis, takes little in orally-has J tube for feedings- chronic abdominal pain, R pulmonary embolism 5-2017, dvt R upper extremity 2018, pancreatitis once in 2018-thought stone somewhere, hypothyroid, chronic anemia, sinus problems, migraine. 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 J tube replaced-last replace in November or December 2018, piccs, mediport insertion , left carpal tunnel, right wrist cyst removal Past Anesthesia/Blood Transfusion Reactions: No Reported Reaction Past Psychological History: Depression Smoking Status: Never smoker Past Alcohol Use History: None Reported Past Drug Use History: None Reported - Past Family History Father Family Medical History: Hypertension Additional Family Medical History / Comment(s): Father is 57 yrs old.. Mother Family Medical History: No Reported History Additional Family Medical History / Comment(s): Mother is 58yrs old. General Exam Limitations: no limitations General appearance: alert, in no apparent distress Head exam: Present: atraumatic, normocephalic Eye exam: Present: normal appearance, PERRL Neck exam: Present: normal inspection. Absent: tenderness, meningismus Respiratory exam: Present: normal lung sounds bilaterally. Absent: respiratory distress, wheezes, rales Cardiovascular Exam: Present: regular rate, normal rhythm GI/Abdominal exam: Present: soft, tenderness, other (J-tube). Absent: distended Extremities exam: Present: normal inspection, normal capillary refill. Absent: pedal edema Neurological exam: Present: alert, oriented X3, CN II-XII intact. Absent: motor sensory deficit Psychiatric exam: Present: normal affect, normal mood Skin exam: Present: warm, dry, intact. Absent: cyanosis, diaphoretic Course Vital Signs 09/08/20 14:51 Temperature 98.7 F Pulse Rate 95 Respiratory 18 Rate Blood Pressure 132/85 O2 Sat by Pulse 100 Oximetry Medical Decision Making - Medical Decision Making 40-year-old female with repeat visit for abdominal pain nausea vomiting. Patient CT performed on September 07, reviewed, showing enteritis no other acute findings. X-rays performed today which is negative for obstruction or intraperitoneal free air. She's given pain control and antiemetics with only minimal improvement. She does have a normal CBC, normal CMP. She will be kept in observation for persistent symptoms and pain control. Case discussed with Dr. Watts - Lab Data Result diagrams: 09/08/20 16:25 09/08/20 16:25 Lab Results 09/08/20 09/08/20 09/08/20 Range/Units 16:25 16:25 16:25 WBC 9.3 (3.8-10.6) k/uL RBC 4.75 (3.80-5.40) m/uL Hgb 13.9 (11.4-16.0) gm/dL Hct 42.0 (34.0-46.0) % MCV 88.4 (80.0-100.0) fL MCH 29.2 (25.0-35.0) pg MCHC 33.0 (31.0-37.0) g/dL RDW 13.8 (11.5-15.5) % Plt Count 333 (150-450) k/uL MPV 6.3 Neutrophils % 73 % Lymphocytes % 19 % Monocytes % 5 % Eosinophils % 1 % Basophils % 0 % Neutrophils # 6.8 (1.3-7.7) k/uL Lymphocytes # 1.8 (1.0-4.8) k/uL Monocytes # 0.5 (0-1.0) k/uL Eosinophils # 0.1 (0-0.7) k/uL Basophils # 0.0 (0-0.2) k/uL PT 10.4 (9.0-12.0) sec INR 1.0 (<1.2) APTT 20.9 L (22.0-30.0) sec Sodium (137-145) mmol/L Potassium (3.5-5.1) mmol/L Chloride (98-107) mmol/L Carbon Dioxide (22-30) mmol/L Anion Gap mmol/L BUN (7-17) mg/dL Creatinine (0.52-1.04) mg/dL Est GFR (CKD-EPI)AfAm (>60 ml/min/1.73 sqM) Est GFR (CKD-EPI)NonAf (>60 ml/min/1.73 sqM) Glucose (74-99) mg/dL Plasma Lactic Acid Frank (0.7-2.0) mmol/L Calcium (8.4-10.2) mg/dL Total Bilirubin (0.2-1.3) mg/dL AST (14-36) U/L ALT (4-34) U/L Alkaline Phosphatase (38-126) U/L Total Protein (6.3-8.2) g/dL Albumin (3.5-5.0) g/dL Amylase (30-110) U/L Lipase (23-300) U/L Urine Color Light Yellow Urine Appearance Clear (Clear) Urine pH 5.5 (5.0-8.0) Ur Specific [place] 1.015 (1.001-1.035) Urine Protein Negative (Negative) Urine Glucose (UA) Negative (Negative) Urine Ketones Negative (Negative) Urine Blood Trace H (Negative) Urine Nitrite Negative (Negative) Urine Bilirubin Negative (Negative) Urine Urobilinogen <2.0 (<2.0) mg/dL Ur Leukocyte Esterase Negative (Negative) Urine RBC <1 (0-5) /hpf Urine WBC 1 (0-5) /hpf Ur Squamous Epith Cells 1 (0-4) /hpf Urine Bacteria Rare H (None) /hpf Urine Mucus Rare H (None) /hpf 09/08/20 09/08/20 Range/Units 16:25 16:25 WBC (3.8-10.6) k/uL RBC (3.80-5.40) m/uL Hgb (11.4-16.0) gm/dL Hct (34.0-46.0) % MCV (80.0-100.0) fL MCH (25.0-35.0) pg MCHC (31.0-37.0) g/dL RDW (11.5-15.5) % Plt Count (150-450) k/uL MPV Neutrophils % % Lymphocytes % % Monocytes % % Eosinophils % % Basophils % % Neutrophils # (1.3-7.7) k/uL Lymphocytes # (1.0-4.8) k/uL Monocytes # (0-1.0) k/uL Eosinophils # (0-0.7) k/uL Basophils # (0-0.2) k/uL PT (9.0-12.0) sec INR (<1.2) APTT (22.0-30.0) sec Sodium 138 (137-145) mmol/L Potassium 3.8 (3.5-5.1) mmol/L Chloride 110 H (98-107) mmol/L Carbon Dioxide 24 (22-30) mmol/L Anion Gap 4 mmol/L BUN 8 (7-17) mg/dL Creatinine 0.65 (0.52-1.04) mg/dL Est GFR (CKD-EPI)AfAm >90 (>60 ml/min/1.73 sqM) Est GFR (CKD-EPI)NonAf >90 (>60 ml/min/1.73 sqM) Glucose 82 (74-99) mg/dL Plasma Lactic Acid Frank 0.8 (0.7-2.0) mmol/L Calcium 8.9 (8.4-10.2) mg/dL Total Bilirubin 0.2 (0.2-1.3) mg/dL AST 18 (14-36) U/L ALT 18 (4-34) U/L Alkaline Phosphatase 142 H (38-126) U/L Total Protein 6.1 L (6.3-8.2) g/dL Albumin 3.7 (3.5-5.0) g/dL Amylase 86 (30-110) U/L Lipase 54 (23-300) U/L Urine Color Urine Appearance (Clear) Urine pH (5.0-8.0) Ur Specific [place] (1.001-1.035) Urine Protein (Negative) Urine Glucose (UA) (Negative) Urine Ketones (Negative) Urine Blood (Negative) Urine Nitrite (Negative) Urine Bilirubin (Negative) Urine Urobilinogen (<2.0) mg/dL Ur Leukocyte Esterase (Negative) Urine RBC (0-5) /hpf Urine WBC (0-5) /hpf Ur Squamous Epith Cells (0-4) /hpf Urine Bacteria (None) /hpf Urine Mucus (None) /hpf Disposition Clinical Impression: Dehydration, Intractable nausea and vomiting, Abdominal pain Disposition: ADMITTED IP TO THIS HOSP Condition: Stable Is patient prescribed a controlled substance at d/c from ED?: No Referrals: Karthikeyan Pedro MD [Primary Care Provider] - 1-2 days Decision to Admit Reason: Admit from EC Decision Date: 09/08/20 Decision Time: 18:04
[2020-09-08 16:42] LABS: Basophils % (A) 0 %; Eosinophils # (A) 0.1 k/uL (0-0.7); Eosinophils % (A) 1 %; HGB 13.9 gm/dL (11.4-16.0); Lymphocytes # (A) 1.8 k/uL (1.0-4.8); Lymphocytes % (A) 19 %; MCH 29.2 pg (25.0-35.0); MCV 88.4 fL (80.0-100.0); Mean Platelet Volume 6.3; Monocytes # (A) 0.5 k/uL (0-1.0); Monocytes % (A) 5 %; Neutrophils # (A) 6.8 k/uL (1.3-7.7); Neutrophils % (A) 73 %; Platelet Count 333 k/uL (150-450); RBC 4.75 m/uL (3.80-5.40); RDW 13.8 % (11.5-15.5); WBC 9.3 k/uL (3.8-10.6)
[2020-09-08 16:52] LABS: ALT 18 U/L (4-34); AST 18 U/L (14-36); African American GFR (CKD) >90 (>60 ml/min/1.73 sqM); Albumin 3.7 g/dL (3.5-5.0); Alkaline Phosphatase 142 U/L (38-126); Amylase 86 U/L (30-110); Anion Gap 4 mmol/L; Blood Urea Nitrogen 8 mg/dL (7-17); Calcium 8.9 mg/dL (8.4-10.2); Carbon Dioxide 24 mmol/L (22-30); Chloride 110 mmol/L (98-107); Glucose 82 mg/dL (74-99); Lipase 54 U/L (23-300); Non-African American GFR(CKD) >90 (>60 ml/min/1.73 sqM); Potassium 3.8 mmol/L (3.5-5.1); Sodium 138 mmol/L (137-145); Total Bilirubin 0.2 mg/dL (0.2-1.3); Total Protein 6.1 g/dL (6.3-8.2)
[2020-09-08 16:56] LABS: Appearance,Urine Clear (Clear); Bacteria,Urine Rare /hpf; Bilirubin,Urine Negative (Negative); Blood,Urine Trace (Negative); Color,Urine Light Yellow; Glucose,Urine (UA) Negative (Negative); Ketones,Urine Negative (Negative); Leukocyte Esterase,Urine Negative (Negative); Mucus,Urine Rare /hpf; Nitrite,Urine Negative (Negative); PH, Urine 5.5 (5.0-8.0); Protein,Urine Negative (Negative); RBC,Urine <1 /hpf (0-5); Specific Gravity,Urine 1.015 (1.001-1.035); Squamous Epithelial Cell,Urine 1 /hpf (0-4); Urobilinogen,Urine <2.0 mg/dL (<2.0); WBC,Urine 1 /hpf (0-5)
[2020-09-08 16:58] LABS: Prothrombin Time 10.4 sec (9.0-12.0)
[2020-09-08 17:26] LABS: Partial Thromboplastin Time 20.9 sec (22.0-30.0)
[2020-09-08] MEDS ORDERED: PROMETHAZINE 25 MG TAB PO STA (17:59)
[2020-09-08] MEDS ORDERED: ACETAMINOPHEN TAB 325 MG TAB PO PRN (18:01)
[2020-09-08] MEDS ORDERED: HYDROmorphone 0.5 MG/0.5 ML SYRINGE IVP PRN (18:01)
[2020-09-08] MEDS ORDERED: NALOXONE 0.4 MG/ML 1 ML VIAL IV PRN (18:01)
[2020-09-08] MEDS: SODIUM CHLORIDE 0.9% 1,000 ML IV SCH ×2 (19:12→21:39)
[2020-09-08] MEDS: HYDROmorphone 1 MG/ML 1 ML SYRINGE IVP PRN (21:36)
[2020-09-08] MEDS: ONDANSETRON 4 MG/2 ML VIAL IVP PRN (21:36)
--- NOTE | 2020-09-08 21:44 | P.HPIM ---
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 Of note, the patient has been following the [facility] where she received her gastric stimulator and [facility] along with multiple outpatient physicians. The patient reports that her symptoms started roughly a week ago and gradually worsened. She reports diffuse right-sided abdominal pain with radiation to the back, 8 out of 10 on maximal intensity, currently at a 4 out of 10, aching in nature, with no clear alleviating or exacerbating features. The patient reported 3-4 episodes of vomiting daily. Reports that her symptoms are similar to her prior episodes for which she has been admitted to the hospital numerous times. The patient reports that she is no longer on the trial medication which prohibited her from using QT prolonging medications. Notes that she was told she may use Zofran for nausea as needed. She denied chest discomfort, shortness of breath, fever, chills, cough. Denied urinary complaints. Denied headaches, visual disturbances, weakness, numbness, tingling. Reports no issues with her J-tube feedings. A KUB x-ray in the emergency room was unremarkable. Laboratory evaluation was remarkable for alk phos of 142 with unremarkable UA. She was given IV fluids and antiemetics in the emergency room along with pain control and was admitted to the medicine service. Review of systems: Pertinent positives and negatives as discussed in HPI, a complete review of systems was performed and all other systems are negative. Physical examination: General: non toxic, no distress, appears at stated age, obese Derm: no unusual rashes/lesions no unusual ecchymoses, warm, dry Head: atraumatic, normocephalic, symmetric Eyes: EOMI, no lid lag, anicteric sclera, pupils equal round reactive to light ENT: Nose and ears atraumatic, no thrush, no pharyngeal erythema Neck: No thyromegaly, no cervical lymphadenopathy, trachea midline, supple Mouth: no lip lesion, mucus membranes moist Cardiovascular: S1S2 reg, no murmur, positive posterior tibial pulse bilateral, no edema, capillary refill less than 2 seconds Lungs: CTA bilateral, no rhonchi, no rales , no accessory muscle use Abdominal: soft, mild diffuse right-sided tenderness, no guarding, no appreciable organomegaly, normal bowel sounds, J-tube in place with clean overlying dressing, no surrounding erythema at insertion site noted Ext: no gross muscle atrophy, muscle strength 5 out of 5 in all 4 extremities grossly, no contractures, Neuro: CN II-XI grossly intact, light touch intact all 4 extremities, finger to nose within normal limits, Psych: Alert, oriented, appropriate affect Assessment/plan Intractable nausea and vomiting, likely secondary to gastroparesis -Antiemetics -IV fluids -GI consult -Pain control Chronic conditions: History of DVT, hypothyroidism -Continue with home medications DVT prophylaxis -Lovenox The patient is admitted with an anticipated less than 2 midnight stay for evaluation of nausea, vomiting CODE STATUS: Full Code Discussed with: Patient Anticipated discharge date: in am Anticipated discharge place: Home A total of 35 minutes was spent on the care of this complex patient more than 50% of the time was spent in counseling and care coordination. Past Medical History Past Medical History: Deep Vein Thrombosis (DVT), GERD/Reflux, Pulmonary Embolus (PE), Thyroid Disorder Additional Past Medical History / Comment(s): Other hx:Idiopathic gastroparesis, takes little in orally-has J tube for feedings- chronic abdominal pain, R pulmonary embolism -2017, dvt R upper extremity 2018, pancreatitis once in 2018-thought stone somewhere, hypothyroid, chronic anemia, sinus problems, migraine. 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 J tube replaced-last replace in November or December 2018, piccs, mediport insertion , left carpal tunnel, right wrist cyst removal Past Anesthesia/Blood Transfusion Reactions: No Reported Reaction Past Psychological History: Depression Smoking Status: Never smoker Past Alcohol Use History: None Reported Past Drug Use History: None Reported - Past Family History Father Family Medical History: Hypertension Additional Family Medical History / Comment(s): Father is 57 yrs old.. Mother Family Medical History: No Reported History Additional Family Medical History / Comment(s): Mother is 58yrs old. Medications and Allergies Home Medications Medication Instructions Recorded Confirmed Type Montelukast Chew [Singulair] 10 mg PO DAILY 02/02/18 09/08/20 History Prucalopride Succinate [Motegrity] 2 mg PO DAILY 01/14/19 09/08/20 History oxyCODONE HCL [oxyCODONE HCL (IR)] 10 mg PO Q8H PRN 04/20/19 09/08/20 History Linaclotide [Linzess] 290 mcg PO DAILY 05/24/19 09/08/20 History Tegaserod Hydrogen Maleate 6 mg PO AC-BID 05/24/19 09/08/20 History [Zelnorm] Lansoprazole 30 mg PO BID 08/27/19 09/08/20 History Levothyroxine Sodium [Synthroid] 100 mcg PO DAILY 10/04/19 09/08/20 History Aspirin 81 mg PO DAILY 30 Days chewable 10/16/19 09/08/20 Rx SUMAtriptan SUCCINATE [Imitrex] 100 mg PO DAILY PRN 05/20/20 09/08/20 History Scopolamine 1.5MG/72Hr Patch 1 patch TRANSDERM Q72H PRN 05/25/20 09/08/20 History [TransDerm Scop] Allergies Allergy/AdvReac Type Severity Reaction Status Date / Time metoclopramide [From Reglan] AdvReac Mild jittery Verified 09/08/20 19:17 prochlorperazine AdvReac Mild JITTERY Verified 09/08/20 19:17 [From Compazine] Physical Exam Vitals: Vital Signs Temp Pulse Resp BP Pulse Ox 09/08/20 14:51 98.7 F 95 18 132/85 100 Intake and Output 09/08/20 09/08/20 09/08/20 06:59 14:59 22:59 Other: Weight 77.111 kg Results CBC & Chem 7: 09/08/20 16:25 09/08/20 16:25 Labs: Abnormal Lab Results - Last 24 Hours (Table) 09/08/20 09/08/20 09/08/20 Range/Units 16:25 16:25 16:25 APTT 20.9 L (22.0-30.0) sec Chloride 110 H (98-107) mmol/L Alkaline Phosphatase 142 H (38-126) U/L Total Protein 6.1 L (6.3-8.2) g/dL Urine Blood Trace H (Negative) Urine Bacteria Rare H (None) /hpf Urine Mucus Rare H (None) /hpf
[2020-09-09] MEDS: HYDROmorphone 1 MG/ML 1 ML SYRINGE IVP PRN ×3 (00:29→07:24)
[2020-09-09] MEDS: ENOXAPARIN 80 MG/0.8 ML SYRINGE SQ SCH ×3 (04:18→23:47)
[2020-09-09] MEDS: ONDANSETRON 4 MG/2 ML VIAL IVP PRN ×3 (07:23→23:46)
[2020-09-09] MEDS: PANTOPRAZOLE 40 MG TABLET PO SCH ×2 (07:24→16:35)
[2020-09-09] MEDS: LEVOTHYROXINE 100 MCG TAB PO SCH (07:24)
[2020-09-09] MEDS ORDERED: HYDROmorphone 0.5 MG/0.5 ML SYRINGE IVP PRN (08:32)
[2020-09-09 09:05] LABS: African American GFR (CKD) >90 (>60 ml/min/1.73 sqM); Anion Gap 4 mmol/L; Blood Urea Nitrogen 7 mg/dL (7-17); Calcium 8.2 mg/dL (8.4-10.2); Carbon Dioxide 24 mmol/L (22-30); Chloride 112 mmol/L (98-107); Glucose 80 mg/dL (74-99); Magnesium 1.8 mg/dL (1.6-2.3); Non-African American GFR(CKD) >90 (>60 ml/min/1.73 sqM); Potassium 3.8 mmol/L (3.5-5.1); Sodium 140 mmol/L (137-145)
[2020-09-09] MEDS ORDERED: KETOROLAC 15 MG/ML 1 ML VIAL IVP STA (12:10)
--- NOTE | 2020-09-09 14:20 | P.PN ---
Subjective Progress Note Date: 09/09/20 Hospital course: Patient is a 40-year-old female with a past medical history of PE/DVT on Lovenox, hypothyroidism, and recurrent gastroparesis with chronic PEG tube for feedings and gastric stimulator. Patient presented to the emergency department on 09/08/20 with a chief complaint of abdominal pain with persistent nausea and vomiting beginning one week ago and progressively worsening. Patient was seen and fully evaluated in the emergency department lab work completed with CBC unremarkable, BMP unremarkable, and liver profile showing a slightly elevated alkaline phosphatase of 142 which has improved from previous labs done on 09/03/20 in which it resulted at 196. Urinalysis negative for blood, ketones, protein, or infection. Covid 19 PCR negative. Abdominal x-ray/KUB completed showing overall nonobstructive GAS pattern with no signs of ileus or bowel obstruction. Patient admitted under our services with consultation to GI. Physical exam: Patient seen and fully evaluated at the bedside today. Patient reports continued persistent diffuse abdominal pain consistent with previous flareups for gastroparesis. Patient has not had any noted episodes of emesis and greater than 24 hours, however patient reporting persistent nausea and pain. Diet was advanced to clear liquids, patient states she refuses to eat or drink anything by mouth while she is in a flare up. Patient's also at bedside, patient and expressed being upset over her scheduled narcotics. Requesting every 1-2 hours and Dilaudid was currently ordered every 6 hours and this was increased to Dilaudid 0.5 mg q4 hours. Order placed for Toradol and patient refused medication stating it makes her stomach feel like it's in knots. Offered to place orders for Ofirmev and/or Bentyl and patient also refused. Patient states Dilaudid with IV Phenergan is the only thing that works for her flareups. General: non toxic, no distress, appears at stated age Derm: warm, dry Head: atraumatic, normocephalic, symmetric Eyes: EOMI, no lid lag, anicteric sclera Mouth: no lip lesion, mucus membranes moist Cardiovascular: S1S2 reg, no murmur, positive posterior tibial pulse bilateral, Lungs: CTA bilateral, no rhonchi, no rales , no accessory muscle use Abdominal: soft, diffuse tenderness to palpation, no guarding, no appreciable organomegaly. PEG tube in place. Ext: no gross muscle atrophy, no edema, no contractures Neuro: CN II-XI grossly intact, no focal neuro deficits Psych: Alert, oriented, appropriate affect Plan of care: Intractable nausea and vomiting likely secondary to gastroparesis -Abdominal x-ray/KUB completed showing overall nonobstructive GAS pattern with no signs of ileus or bowel obstruction. -GI consulted, appreciate further recommendations. -Continue hydration with IV fluids. -Symptomatic care and pain management with antiemetics and Dilaudid for pain. Hypothyroidism -Continue daily medication management with levothyroxine. History of DVT -Continue anticoagulation with Lovenox. CODE STATUS: Full code DVT prophylaxis: Lovenox Discussed with: Patient, patient's , and RN Anticipated discharge date: Clinical course to determine Anticipated discharge place: Home A total of 45 minutes was spent on the care of this complex patient more than 50% of the time was spent in counseling and care coordination. Objective - Vital Signs Vital signs: Vital Signs Temp 98.8 F 09/09/20 07:00 Pulse 86 09/09/20 07:00 Resp 19 09/09/20 07:00 BP 122/78 09/09/20 07:00 Pulse Ox 97 09/09/20 07:00 Intake & Output 09/08/20 09/09/20 09/09/20 18:59 06:59 18:59 Weight 77.111 kg - Labs CBC & Chem 7: 09/08/20 16:25 09/09/20 08:19 Labs: Abnormal Lab Results - Last 24 Hours (Table) 09/08/20 09/08/20 09/08/20 Range/Units 16:25 16:25 16:25 APTT 20.9 L (22.0-30.0) sec Chloride 110 H (98-107) mmol/L Calcium (8.4-10.2) mg/dL Alkaline Phosphatase 142 H (38-126) U/L Total Protein 6.1 L (6.3-8.2) g/dL Urine Blood Trace H (Negative) Urine Bacteria Rare H (None) /hpf Urine Mucus Rare H (None) /hpf 09/09/20 Range/Units 08:19 APTT (22.0-30.0) sec Chloride 112 H (98-107) mmol/L Calcium 8.2 L (8.4-10.2) mg/dL Alkaline Phosphatase (38-126) U/L Total Protein (6.3-8.2) g/dL Urine Blood (Negative) Urine Bacteria (None) /hpf Urine Mucus (None) /hpf
[2020-09-09] MEDS: SODIUM CHLORIDE 0.9% 1,000 ML IV SCH (16:27)
[2020-09-09] MEDS: HYDROmorphone 0.5 MG/0.5 ML SYRINGE IVP PRN ×3 (16:32→23:47)
[2020-09-10] MEDS: SODIUM CHLORIDE 0.9% 1,000 ML IV SCH ×3 (01:21→15:03)
[2020-09-10] MEDS: HYDROmorphone 0.5 MG/0.5 ML SYRINGE IVP PRN ×6 (04:03→21:26)
[2020-09-10] MEDS: LEVOTHYROXINE 100 MCG TAB PO SCH (05:43)
[2020-09-10] MEDS: PANTOPRAZOLE 40 MG TABLET PO SCH ×2 (07:46→16:53)
[2020-09-10] MEDS: ONDANSETRON 4 MG/2 ML VIAL IVP PRN ×2 (08:44→16:53)
[2020-09-10] MEDS: ENOXAPARIN 80 MG/0.8 ML SYRINGE SQ SCH ×2 (11:15→23:13)
[2020-09-10] MEDS: PROMETHAZINE 25 MG TAB PO PRN (11:54)
--- NOTE | 2020-09-10 13:47 | P.PN ---
Subjective Progress Note Date: 09/10/20 History is a little better, abd pain better , no cp no fever Nausea and vomiting improved Objective - Vital Signs Vital signs: Vital Signs Temp 98.0 F 09/10/20 07:00 Pulse 70 09/10/20 07:00 Resp 17 09/10/20 07:00 BP 123/84 09/10/20 07:00 Pulse Ox 97 09/10/20 07:00 Intake & Output 09/09/20 09/10/20 09/10/20 18:59 06:59 18:59 Intake Total 0 Balance 0 Weight 77.111 kg 77.111 kg Intake: Oral 0 Other: Voiding Method Toilet # Voids 1 3 - Exam General: non toxic, no distress Derm: warm, dry Head: atraumatic, normocephalic, symmetric Eyes: EOMI, no lid lag, anicteric sclera Mouth: no lip lesion Cardiovascular: S1S2 reg, no murmur, positive posterior tibial pulse bilateral, Lungs: CTA bilateral, no rhonchi, no rales , no accessory muscle use Abdominal: soft, diffuse tenderness to palpation, no guarding, no appreciable organomegaly. PEG tube in place. Ext: no gross muscle atrophy, no edema, no contractures Neuro: CN II-XI grossly intact, no focal neuro deficits Psych: Alert, oriented, appropriate affect - Labs CBC & Chem 7: 09/08/20 16:25 09/09/20 08:19 Assessment and Plan Plan: Intractable nausea and vomiting likely secondary to gastroparesis -Abdominal x-ray/KUB completed showing overall nonobstructive GAS pattern with no signs of ileus or bowel obstruction. -GI consulted, input appreciated -Continue IV fluids, decrease to 75 mL/h -Symptomatic care and pain management with antiemetics and Dilaudid for pain. Hypothyroidism -Continue daily medication management with levothyroxine. History of DVT -Continue anticoagulation with Lovenox. CODE STATUS: Full code DVT prophylaxis: Lovenox Discussed with: Patient, and RN Anticipated discharge date: Clinical course to determine Anticipated discharge place: Home in 1-2 days pending clinical progression
--- NOTE | 2020-09-10 13:49 | P.CONS ---
History of Present Illness - Reason for Consult Consult date: 09/10/20 Nausea vomiting, gastroparesis Requesting physician: Autumn Watts - Chief Complaint Abdominal pain, nausea vomiting - History of Present Illness This pleasant 32-year-old female with significant history of gastroparesis, multiple abdominal surgeries, who has a J-tube which was replaced in January 2020. Patient presented to the emergency department on September 03 with nausea vomiting abdominal pain, was treated and sent home. She returned yesterday for increased nausea vomiting and abdominal pain. States she is not keeping anything down. States she vomited at least 70 times yesterday with the dry heaves. States she is able to drink some diet coke and soup other than that she is getting her nutrition through her J-tube daily. She had an EGD with in January 2020 when he replaced her J-tube. She recently underwent gastric pacemeaker in July 2019 in [place], she eats her stimulator set at the lowest setting and has an appointment with a surgeon Dr. Margaret Marie [facility] coming up to adjust her settings. Patient also states she had an EGD in July 2020 prior to her gastroparesis stimulator he states had her symptoms have been pretty well controlled for quite some time, however over the last week or 2 she started having severe abdominal pain with nausea and vomiting again. She denies any diarrhea or constipation. Bowel movements are normal. Denies any hematemesis or coffee-ground emesis. Review of Systems REVIEW OF SYSTEMS: CARDIOPULMONARY: No chest pain or shortness of breath. Gastrointestinal: Sharp, stabbing abdominal pain. Nausea and vomiting. No hematemesis, coffee-ground emesis. No rectal bleeding, or melena. No constipation or diarrhea. No weight loss. GENITOURINARY: No dysuria or hematuria. MUSCULOSKELETAL: Reports normal range of motion., Joint pain. SKIN: No rashes. No jaundice. ENDOCRINE: No chills, fevers. No excessive weight gain or loss. No polydipsia or polyuria. PSYCHIATRIC: Unremarkable. NEUROLOGY: No change in mental status. Denies dizziness, headache. ENT: Vision unremarkable. CONSTITUTIONAL: No recent weight loss. No fever, chills, night sweats. Past Medical History Past Medical History: Deep Vein Thrombosis (DVT), GERD/Reflux, Pulmonary Embolus (PE), Thyroid Disorder Additional Past Medical History / Comment(s): Idiopathic gastroparesis, takes little in orally-has J tube for feedings and gastric stimulator- chronic abdominal pain, R pulmonary embolism 5-2017, dvt R upper extremity 2018, pancreatitis once in 2018-thought stone somewhere, hypothyroid, chronic anemia, sinus problems, migraine. 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 Mother Family Medical History: No Reported History Additional Family Medical History / Comment(s): Mother is 58yrs old. Medications and Allergies Home Medications Medication Instructions Recorded Confirmed Type Montelukast Chew [Singulair] 10 mg PO DAILY 02/02/18 09/08/20 History Prucalopride Succinate [Motegrity] 2 mg PO DAILY 01/14/19 09/08/20 History oxyCODONE HCL [oxyCODONE HCL (IR)] 10 mg PO Q8H PRN 04/20/19 09/08/20 History Linaclotide [Linzess] 290 mcg PO DAILY 05/24/19 09/08/20 History Tegaserod Hydrogen Maleate 6 mg PO AC-BID 05/24/19 09/08/20 History [Zelnorm] Lansoprazole 30 mg PO BID 08/27/19 09/08/20 History Levothyroxine Sodium [Synthroid] 100 mcg PO DAILY 10/04/19 09/08/20 History Aspirin 81 mg PO DAILY 30 Days chewable 10/16/19 09/08/20 Rx SUMAtriptan SUCCINATE [Imitrex] 100 mg PO DAILY PRN 05/20/20 09/08/20 History Scopolamine 1.5MG/72Hr Patch 1 patch TRANSDERM Q72H PRN 05/25/20 09/08/20 History [TransDerm Scop] Enoxaparin [Lovenox] 80 mg SQ Q12H 09/08/20 09/08/20 History Allergies Allergy/AdvReac Type Severity Reaction Status Date / Time metoclopramide [From Reglan] AdvReac Mild jittery Verified 09/08/20 19:17 prochlorperazine AdvReac Mild JITTERY Verified 09/08/20 19:17 [From Compazine] Physical Exam Vitals: Vital Signs Temp Pulse Resp BP BP Pulse Ox 09/10/20 07:00 98.0 F 70 17 123/84 97 09/10/20 01:09 97.9 F 88 18 129/80 97 09/09/20 19:22 99.0 F 67 16 110/67 97 09/09/20 14:40 98.7 F 98 14 122/79 98 09/09/20 13:57 98.1 F 76 19 119/78 98 Intake and Output 09/09/20 09/10/20 09/10/20 22:59 06:59 14:59 Other: Voiding Method Toilet # Voids 1 3 General appearance: The patient is alert, oriented, appears in no acute distress. HET: Head is normocephalic and atraumatic. Pupils are equal and reactive. Oropharynx is clear without lesions. Neck: Supple without lymphadenopathy. Trachea midline. Heart: S1 S2. Regular rate and rhythm. Lungs: Clear to auscultation. Abdomen: Soft, diffuse tenderness, nondistended with bowel sounds. No guarding or rigidity. Extremities: Normal skin color and turgor. No pedal edema. Neurological: No focal deficits. Alert and oriented 3. Results CBC & Chem 7: 09/08/20 16:25 09/09/20 08:19 Assessment and Plan (1) Gastroparesis Narrative/Plan: 10-year-old female with a long-standing history of gastroparesis with a history of multiple abdominal surgeries including Edna-en-Y gastric bypass and recent J- tube replacement. Patient states she's had increased nausea and vomiting over the last week with severe abdominal pain. Having up to 70 episodes of vomiting. This morning she states she's not had any vomiting only nausea however pain is still present. States she is having little intake between oral and her J-tube feedings. She had a recent upper endoscopy in July 2020 in [place] while she underwent gastric pacemaker. She had a prior EGD and G-tube replacement in February [address] Segovia. He is denying any hematemesis or coffee-ground emesis. Currently on Zofran which is improving her nausea and vomiting. Patient also states Phenergan has worked well for her in the past. No plans on endoscopic evaluation. Will treat with antiemetics and pain medications as needed. Dietitian to be consulted for G-tube feedings. Current Visit: No Status: Acute Code(s): K31.84 - GASTROPARESIS SNOMED Code(s): 478237661 (2) Nausea & vomiting Current Visit: No Status: Acute Code(s): R11.2 - NAUSEA WITH VOMITING, UNSPECIFIED SNOMED Code(s): 72277881 (3) Jejunostomy tube present Current Visit: No Status: Chronic Code(s): Z93.4 - OTHER ARTIFICIAL OPENINGS OF GASTROINTESTINAL TRACT STATUS SNOMED Code(s): 923364001 Plan: 1. Continue symptomatic and supportive care 2. Continue antiemetics, Phenergan added 3. Continue Protonix as ordered 4. Diet as tolerated 5. Dietitian consulted for enteral nutrition 6. Consider possible TPN if patient unable to tolerate oral or enteral nutrition Thank you for this consultation, we will continue to follow Dr. Saxena I agree with the dictator's note, documented as a scribe by Collette Mueller.
[2020-09-10 19:20] VITALS: RESP 16
[2020-09-11] MEDS: ONDANSETRON 4 MG/2 ML VIAL IVP PRN ×2 (00:38→15:41)
[2020-09-11] MEDS: HYDROmorphone 0.5 MG/0.5 ML SYRINGE IVP PRN ×7 (00:39→21:17)
[2020-09-11] MEDS: SODIUM CHLORIDE 0.9% 1,000 ML IV SCH ×2 (03:02→11:59)
[2020-09-11] MEDS: LEVOTHYROXINE 100 MCG TAB PO SCH (06:02)
[2020-09-11] MEDS: PROMETHAZINE 25 MG TAB PO PRN (06:25)
[2020-09-11] MEDS: PANTOPRAZOLE 40 MG TABLET PO SCH ×2 (08:49→16:57)
[2020-09-11 09:56] LABS: Basophils # (A) 0.03 X 10*3/uL (0.00-0.10); Basophils % (A) 0.7 %; Eosinophils # (A) 0.09 X 10*3/uL (0.04-0.35); HGB 13.3 g/dL (12.0-15.0); Lymphocytes # (A) 2.27 X 10*3/uL (0.90-5.00); Lymphocytes % (A) 50.4 %; MCH 29.7 pg (27.0-32.0); MCHC 33.3 g/dL (32.0-37.0); MCV 89.3 fL (80.0-97.0); Mean Platelet Volume 8.6 fL (9.5-12.2); Monocytes # (A) 0.52 X 10*3/uL (0.20-1.00); Monocytes % (A) 11.6 %; Neutrophils # (A) 1.58 X 10*3/uL (1.80-7.70); Neutrophils % (A) 35.1 %; Platelet Count 307 X 10*3/uL (140-440); RBC 4.48 X 10*6/uL (4.10-5.20); RDW 12.7 % (11.5-14.5)
--- NOTE | 2020-09-11 10:35 | P.PN ---
Subjective Progress Note Date: 09/11/20 Abdominal pain better, no chest pain no fever. Currently no nausea or vomiting Objective - Vital Signs Vital signs: Vital Signs Temp 98.2 F 09/11/20 07:44 Pulse 74 09/11/20 07:44 Resp 16 09/11/20 07:44 BP 126/84 09/11/20 07:44 Pulse Ox 97 09/11/20 07:44 Intake & Output 09/10/20 09/11/20 09/11/20 18:59 06:59 18:59 Intake Total 0 Balance 0 Weight 77.111 kg Intake: Oral 0 Other: Voiding Method Toilet Toilet Toilet # Bowel Movements 1 - Exam General: non toxic, no distress Derm: warm, dry Head: atraumatic, normocephalic, symmetric Eyes: EOMI, no lid lag, anicteric sclera Mouth: no lip lesion Cardiovascular: S1S2 reg, no murmur, Lungs: CTA bilateral, no rhonchi, no rales , no accessory muscle use Abdominal: soft, diffuse tenderness to palpation, no guarding, no appreciable organomegaly. PEG tube in place. Ext: no gross muscle atrophy, no edema, no contractures Neuro: CN II-XI grossly intact, no focal neuro deficits Psych: Alert, oriented, appropriate affect - Labs CBC & Chem 7: 09/11/20 06:58 09/09/20 08:19 Labs: Abnormal Lab Results - Last 24 Hours (Table) 09/11/20 Range/Units 06:58 MPV 8.6 L (9.5-12.2) fL Neutrophils # 1.58 L (1.80-7.70) X 10*3/uL Assessment and Plan Plan: Intractable nausea and vomiting likely secondary to gastroparesis -Abdominal x-ray/KUB completed showing overall nonobstructive GAS pattern with no signs of ileus or bowel obstruction. -GI consulted, input appreciated -Continue IV fluids, decrease to 50 mL/h -Symptomatic care and pain management with antiemetics and Dilaudid for pain. Hypothyroidism -Continue daily medication management with levothyroxine. History of DVT -Continue anticoagulation with Lovenox. CODE STATUS: Full code DVT prophylaxis: Lovenox Discussed with: Patient Anticipated discharge date: Clinical course to determine Anticipated discharge place: Home in 1-2 days pending clinical progression
--- NOTE | 2020-09-11 11:43 | P.PN ---
Subjective Progress Note Date: 09/11/20 Principal diagnosis: Gastroparesis Patient seen and examined. States she feels about the same as yesterday. Still having abdominal pain, no vomiting today. Patient states she did try some pudding yesterday and vomited for a while after. is bringing in her tube feedings and we'll try to initiate today. Objective - Vital Signs Vital signs: Vital Signs Temp 98.2 F 09/11/20 07:44 Pulse 74 09/11/20 07:44 Resp 16 09/11/20 07:44 BP 126/84 09/11/20 07:44 Pulse Ox 97 09/11/20 07:44 Intake & Output 09/10/20 09/11/20 09/11/20 18:59 06:59 18:59 Intake Total 0 Balance 0 Weight 77.111 kg Intake: Oral 0 Other: Voiding Method Toilet Toilet Toilet # Bowel Movements 1 - Exam General appearance: The patient is alert, oriented, appears in no acute distress. HET: Head is normocephalic and atraumatic. Conjunctiva pink. Sclera anicteric. Neck: Supple without lymphadenopathy. Abdomen: Soft, diffuse tenderness, nondistended with bowel sounds. No guarding or rigidity. Extremities: Normal skin color and turgor. No pedal edema Skin: No rashes, no jaundice Neurological: No focal deficits. Alert and oriented 3. - Labs CBC & Chem 7: 09/11/20 06:58 09/11/20 06:58 Labs: Abnormal Lab Results - Last 24 Hours (Table) 09/11/20 Range/Units 06:58 MPV 8.6 L (9.5-12.2) fL Neutrophils # 1.58 L (1.80-7.70) X 10*3/uL Assessment and Plan (1) Gastroparesis Narrative/Plan: 10-year-old female with a long-standing history of gastroparesis with a history of multiple abdominal surgeries including Edna-en-Y gastric bypass and recent J-tube replacement. Patient states she's had increased nausea and vomiting over the last week with severe abdominal pain. Having up to 70 episodes of vomiting. This morning she states she's not had any vomiting only nausea however pain is still present. States she is having little intake between oral and her J-tube feedings. She had a recent upper endoscopy in July 2020 in [place] while she underwent gastric pacemaker. She had a prior EGD and G-tube replacement in February [address] Segovia. He is denying any hematemesis or coffee-ground emesis. Currently on Zofran which is improving her nausea and vomiting. Patient also states Phenergan has worked well for her in the past. No plans on endoscopic evaluation. Will treat with antiemetics and pain medications as needed. Dietitian to be consulted for G-tube feedings. Current Visit: No Status: Acute Code(s): K31.84 - GASTROPARESIS SNOMED Code(s): 650943611 (2) Nausea & vomiting Current Visit: No Status: Acute Code(s): R11.2 - NAUSEA WITH VOMITING, UNSPECIFIED SNOMED Code(s): 17991219 (3) Jejunostomy tube present Current Visit: No Status: Chronic Code(s): Z93.4 - OTHER ARTIFICIAL OPENINGS OF GASTROINTESTINAL TRACT STATUS SNOMED Code(s): 197603507 Plan: 1. Continue symptomatic and supportive care 2. Continue antiemetics, Phenergan added, Benadryl added PRN 3. Continue Protonix as ordered 4. Diet as tolerated 5. Dietitian consulted for enteral nutrition, patient to administer her own enteral nutrition 6. Consider possible TPN if patient unable to tolerate oral or enteral nutrition Thank you for this consultation, we will continue to follow Dr. Saxena I agree with the dictator's note, documented as a scribe by Collette Mueller.
[2020-09-11] MEDS: ENOXAPARIN 80 MG/0.8 ML SYRINGE SQ SCH (12:04)
[2020-09-11 15:31] LABS: African American GFR (CKD) 108.4 (60.0-200.0); Albumin 3.7 g/dL (3.80-4.90); Albumin/Globulin Ratio 1.95 (1.60-3.17); BUN/Creat Ratio 6.25 Ratio (12.00-20.00); Calcium 9.4 mg/dL (8.7-10.3); Globulin 1.9 g/dL (1.6-3.3); Non-African American GFR(CKD) 93.5 (60.0-200.0); Potassium 3.7 mmol/L (3.5-5.5); Total Bilirubin 0.3 mg/dL (0.2-1.2); Total Protein 5.6 g/dL (6.2-8.2)
[2020-09-11] MEDS: diphenhydrAMINE 50 MG/ML 1 ML VIAL IVP PRN (18:33)
[2020-09-12] MEDS: diphenhydrAMINE 50 MG/ML 1 ML VIAL IVP PRN ×3 (01:15→20:37)
[2020-09-12] MEDS: HYDROmorphone 0.5 MG/0.5 ML SYRINGE IVP PRN ×6 (01:15→20:37)
[2020-09-12] MEDS: ENOXAPARIN 80 MG/0.8 ML SYRINGE SQ SCH ×2 (01:18→12:46)
[2020-09-12] MEDS: ONDANSETRON 4 MG/2 ML VIAL IVP PRN ×2 (04:43→16:00)
[2020-09-12] MEDS: LEVOTHYROXINE 100 MCG TAB PO SCH (06:02)
[2020-09-12] MEDS: PANTOPRAZOLE 40 MG TABLET PO SCH ×2 (08:49→17:14)
[2020-09-12] MEDS: SODIUM CHLORIDE 0.9% 1,000 ML IV SCH (08:51)
[2020-09-12 09:14] LABS: HCT 39.5 % (37.2-46.3); HGB 13.2 g/dL (12.0-15.0); MCH 30.1 pg (27.0-32.0); MCHC 33.4 g/dL (32.0-37.0); MCV 90.2 fL (80.0-97.0); Mean Platelet Volume 8.7 fL (9.5-12.2); Platelet Count 291 X 10*3/uL (140-440); RBC 4.38 X 10*6/uL (4.10-5.20); RDW 12.6 % (11.5-14.5); WBC 5.83 X 10*3/uL (4.50-10.00)
[2020-09-12 09:49] LABS: African American GFR (CKD) 108.4 (60.0-200.0); Albumin 3.6 g/dL (3.80-4.90); Albumin/Globulin Ratio 1.8 (1.60-3.17); BUN/Creat Ratio 6.25 Ratio (12.00-20.00); Calcium 9.3 mg/dL (8.7-10.3); Non-African American GFR(CKD) 93.5 (60.0-200.0); Potassium 3.6 mmol/L (3.5-5.5); Total Bilirubin 0.2 mg/dL (0.2-1.2); Total Protein 5.6 g/dL (6.2-8.2)
[2020-09-12 10:12] LABS: Basophils # (A) 0.04 X 10*3/uL (0.00-0.10); Basophils % (A) 0.7 %; Eosinophils # (A) 0.14 X 10*3/uL (0.04-0.35); Eosinophils % (A) 2.4 %; Lymphocytes # (A) 2.74 X 10*3/uL (0.90-5.00); Monocytes # (A) 0.62 X 10*3/uL (0.20-1.00); Monocytes % (A) 10.6 %; Neutrophils # (A) 2.28 X 10*3/uL (1.80-7.70); Neutrophils % (A) 39.1 %
--- NOTE | 2020-09-12 11:13 | P.PN ---
Subjective Progress Note Date: 09/12/20 Abdominal pain improving no chest pain no fever. No nausea or vomiting. Objective - Vital Signs Vital signs: Vital Signs Temp 98.1 F 09/12/20 07:35 Pulse 63 09/12/20 07:35 Resp 16 09/12/20 07:35 BP 125/85 09/12/20 07:35 Pulse Ox 98 09/12/20 07:35 Intake & Output 09/11/20 09/12/20 09/12/20 18:59 06:59 18:59 Intake Total 300 Balance 300 Weight 77.111 kg 86.1 kg Intake: Tube Feeding 300 Other: Voiding Method Toilet Toilet Toilet - Exam General: non toxic, no distress Derm: warm, dry Head: atraumatic, normocephalic, symmetric Eyes: EOMI, no lid lag, anicteric sclera Mouth: no lip lesion Cardiovascular: S1S2 reg, no murmur, Lungs: CTA bilateral, no rhonchi, no rales , no accessory muscle use Abdominal: soft, nontender, no guarding, no appreciable organomegaly. PEG tube in place. Ext: no gross muscle atrophy, no edema, no contractures Neuro: CN II-XI grossly intact, no focal neuro deficits Psych: Alert, oriented, appropriate affect - Labs CBC & Chem 7: 09/12/20 05:23 09/12/20 05:23 Labs: Abnormal Lab Results - Last 24 Hours (Table) 09/11/20 09/12/20 09/12/20 Range/Units 06:58 05:23 05:23 MPV 8.7 L (9.5-12.2) fL BUN 5.0 L 5.0 L (9.0-27.0) mg/dL BUN/Creatinine Ratio 6.25 L 6.25 L (12.00-20.00) Ratio Alkaline Phosphatase 142 H 136 H (41-126) U/L Total Protein 5.6 L 5.6 L (6.2-8.2) g/dL Albumin 3.70 L 3.60 L (3.80-4.90) g/dL Assessment and Plan Plan: Intractable nausea and vomiting likely secondary to gastroparesis -Abdominal x-ray/KUB completed showing overall nonobstructive GAS pattern with no signs of ileus or bowel obstruction. -GI consulted, input appreciated Discontinue IV fluids -Symptomatic care and pain management with antiemetics and Dilaudid for pain. Hypothyroidism -Continue daily medication management with levothyroxine. History of DVT -Continue anticoagulation with Lovenox. CODE STATUS: Full code DVT prophylaxis: Lovenox Discussed with: Patient Anticipated discharge date: Clinical course to determine Anticipated discharge place: Home likely tomorrow
[2020-09-12 13:59] VITALS: BMI 33.6
[2020-09-12] MEDS ORDERED: PETROLATUM, WHITE OINT 454 GM JAR TOPICAL PRN (14:18)
--- NOTE | 2020-09-12 16:19 | P.PN ---
Subjective Progress Note Date: 09/12/20 Principal diagnosis: Gastroparesis The patient was seen and examined sitting up at the bedside. States her abdominal pain has improved some, still has some nausea but no vomiting. She did start her tube feedings and it is running at 25, rales per hour. She had a bowel movement yesterday, none today. No acute changes through the night, afebrile. Objective - Vital Signs Vital signs: Vital Signs Temp 98.1 F 09/12/20 07:35 Pulse 63 09/12/20 07:35 Resp 16 09/12/20 07:35 BP 125/85 09/12/20 07:35 Pulse Ox 98 09/12/20 07:35 Intake & Output 09/11/20 09/12/20 09/12/20 18:59 06:59 18:59 Intake Total 300 Balance 300 Weight 77.111 kg 86.1 kg Intake: Tube Feeding 300 Other: Voiding Method Toilet Toilet Toilet - Exam General appearance: The patient is alert, oriented, appears in no acute distress. HET: Head is normocephalic and atraumatic. Conjunctiva pink. Sclera anicteric. Neck: Supple without lymphadenopathy. Abdomen: Soft, diffuse tenderness, nondistended with bowel sounds. No guard ing or rigidity. Extremities: Normal skin color and turgor. No pedal edema Skin: No rashes, no jaundice Neurological: No focal deficits. Alert and oriented 3. - Labs CBC & Chem 7: 09/12/20 05:23 09/12/20 05:23 Labs: Abnormal Lab Results - Last 24 Hours (Table) 09/11/20 09/12/20 09/12/20 Range/Units 06:58 05:23 05:23 MPV 8.7 L (9.5-12.2) fL BUN 5.0 L 5.0 L (9.0-27.0) mg/dL BUN/Creatinine Ratio 6.25 L 6.25 L (12.00-20.00) Ratio Alkaline Phosphatase 142 H 136 H (41-126) U/L Total Protein 5.6 L 5.6 L (6.2-8.2) g/dL Albumin 3.70 L 3.60 L (3.80-4.90) g/dL Assessment and Plan (1) Gastroparesis Narrative/Plan: 40-year-old female with a long-standing history of gastroparesis with a history of multiple abdominal surgeries including Edna-en-Y gastric bypass and recent J- tube replacement. Patient states she's had increased nausea and vomiting over the last week with severe abdominal pain. Having up to 70 episodes of vomiting. This morning she states she's not had any vomiting only nausea however pain is still present. States she is having little intake between oral and her J-tube feedings. She had a recent upper endoscopy in July 2020 in [place] while she underwent gastric pacemaker. She had a prior EGD and G-tube replacement in [place] [address] Segovia. He is denying any hematemesis or coffee-ground emesis. Currently on Zofran which is improving her nausea and vomiting. Supa nt also states Phenergan has worked well for her in the past. No plans on endoscopic evaluation. Will treat with antiemetics and pain medications as needed. Dietitian to be consulted for J-tube feedings. Patient started on tube feedings at 25 mL per hour today. Current Visit: No Status: Acute Code(s): K31.84 - GASTROPARESIS SNOMED Code(s): 456812267 (2) Nausea & vomiting Current Visit: No Status: Acute Code(s): R11.2 - NAUSEA WITH VOMITING, UNSPECIFIED SNOMED Code(s): 68119140 (3) Jejunostomy tube present Current Visit: No Status: Chronic Code(s): Z93.4 - OTHER ARTIFICIAL OPENINGS OF GASTROINTESTINAL TRACT STATUS SNOMED Code(s): 669214074 Plan: 1. Continue symptomatic and supportive care 2. Continue antiemetics, Phenergan added, Benadryl added PRN 3. Continue Protonix as ordered 4. Diet as tolerated 5. Dietitian consulted for enteral nutrition, patient to administer her own enteral nutrition Thank you for allowing us to participate in the care of the patient, the GI service will sign off, gastroenterology will not be available at the hospital this weekend and if further evaluation by gastroenterology is required the patient will need transfer as per the primary team's discretion. Dr. Saxena I agree with the dictator's note, documented as a scribe by Collette Mueller.
[2020-09-13] MEDS: ONDANSETRON 4 MG/2 ML VIAL IVP PRN ×2 (00:12→12:33)
[2020-09-13] MEDS: HYDROmorphone 0.5 MG/0.5 ML SYRINGE IVP PRN ×5 (00:12→12:44)
[2020-09-13] MEDS: ENOXAPARIN 80 MG/0.8 ML SYRINGE SQ SCH ×2 (00:12→11:26)
[2020-09-13] MEDS: diphenhydrAMINE 50 MG/ML 1 ML VIAL IVP PRN ×2 (03:05→12:45)
[2020-09-13] MEDS: LEVOTHYROXINE 100 MCG TAB PO SCH (05:48)
[2020-09-13] MEDS: PANTOPRAZOLE 40 MG TABLET PO SCH (07:42)
[2020-09-13 07:54] VITALS: BP 123/83; PULSE 77; TEMP 98.8
[2020-09-13 08:53] LABS: Basophils # (A) 0.05 X 10*3/uL (0.00-0.10); Basophils % (A) 0.9 %; Eosinophils # (A) 0.11 X 10*3/uL (0.04-0.35); HCT 40.6 % (37.2-46.3); HGB 13.4 g/dL (12.0-15.0); Lymphocytes # (A) 2.51 X 10*3/uL (0.90-5.00); Lymphocytes % (A) 46.7 %; MCV 90.8 fL (80.0-97.0); Mean Platelet Volume 8.8 fL (9.5-12.2); Monocytes # (A) 0.57 X 10*3/uL (0.20-1.00); Monocytes % (A) 10.6 %; Neutrophils # (A) 2.12 X 10*3/uL (1.80-7.70); Neutrophils % (A) 39.4 %; Platelet Count 281 X 10*3/uL (140-440); RBC 4.47 X 10*6/uL (4.10-5.20); RDW 12.6 % (11.5-14.5); WBC 5.38 X 10*3/uL (4.50-10.00)
[2020-09-13 09:36] LABS: Albumin 3.7 g/dL (3.80-4.90); Albumin/Globulin Ratio 1.76 (1.60-3.17); Anion Gap 6.8 mmol/L (4.00-12.00); Calcium 9.4 mg/dL (8.7-10.3); Carbon Dioxide 27.2 mmol/L (21.6-31.8); Globulin 2.1 g/dL (1.6-3.3); Non-African American GFR(CKD) 81.1 (60.0-200.0); Potassium 3.9 mmol/L (3.5-5.5); Total Bilirubin 0.2 mg/dL (0.2-1.2); Total Protein 5.8 g/dL (6.2-8.2)
--- NOTE | 2020-09-13 16:43 | P.DS ---
Providers Date of admission: 09/09/20 17:22 Expected date of discharge: 09/13/20 Attending physician: Autumn Watts Consults: 09/09/20 14:10 Consult Physician Routine Consulting Provider: Sly Saxena Consult Reason/Comments: gastroparesis Do you want consulting provider notified?: Yes Primary care physician: [facility] Course: Intractable nausea and vomiting likely secondary to gastroparesis Patient was admitted for intractable nausea and vomiting secondary no gastroparesis of unknown etiology. J was consult and their input was appr eciated greatly. No intervention was needed during admission. Imaging demonstrated overall nonobstructive bowel gas pattern, no ileus/obstruction. Patient was restarted on her tube feeds and had dietitian consult. She was able tolerate her feeds at her goal rate by the day of discharge. On the day of discharge she reported her pain was well-controlled as well as no further episodes of nausea/vomiting area she indicated to me that she would follow-up with her PCP as well as her GI physician [facility] for ongoing care. No medication changes were made on discharge from her home medication regimen. I spent 31 minutes coordinating this complex discharge Assessment: Gen: awake, alert HEENT: normocephalic, atraumatic, good hearing acuity, moist mucous membranes Resp: good air exchange, breathing comfortably with no accessory muscle use CVS: good distal perfusion x 4, GI: soft, NTTP, ND, quiet bowel sounds, +PEG tube : no SPT, no CVAT, page catheter not present MSK: no pitting edema, no clubbing Neuro: non-focal, moving all extremities Psych: cooperative, euthymic mood Patient Condition at Discharge: Good Plan - Discharge Summary Discharge Rx Participant: No New Discharge Prescriptions: New Acetaminophen Tab [Tylenol] 650 mg PO Q6HR PRN tab PRN Reason: Mild Pain Or Fever > 100.5 Continue Montelukast Chew [Singulair] 10 mg PO DAILY Prucalopride Succinate [Motegrity] 2 mg PO DAILY oxyCODONE HCL [oxyCODONE HCL (IR)] 10 mg PO Q8H PRN PRN Reason: Pain Tegaserod Hydrogen Maleate [Zelnorm] 6 mg PO AC-BID Linaclotide [Linzess] 290 mcg PO DAILY Lansoprazole 30 mg PO BID Levothyroxine Sodium [Synthroid] 100 mcg PO DAILY Aspirin 81 mg PO DAILY 30 Days chewable SUMAtriptan SUCCINATE [Imitrex] 100 mg PO DAILY PRN PRN Reason: Migraine Headache Scopolamine 1.5MG/72Hr Patch [TransDerm Scop] 1 patch TRANSDERM Q72H PRN PRN Reason: Vertigo Enoxaparin [Lovenox] 80 mg SQ Q12H Discharge Medication List Montelukast Chew [Singulair] 10 mg PO DAILY 02/02/18 [History] Prucalopride Succinate [Motegrity] 2 mg PO DAILY 01/14/19 [History] oxyCODONE HCL [oxyCODONE HCL (IR)] 10 mg PO Q8H PRN 04/20/19 [History] Linaclotide [Linzess] 290 mcg PO DAILY 05/24/19 [History] Tegaserod Hydrogen Maleate [Zelnorm] 6 mg PO AC-BID 05/24/19 [History] Lansoprazole 30 mg PO BID 08/27/19 [History] Levothyroxine Sodium [Synthroid] 100 mcg PO DAILY 10/04/19 [History] Aspirin 81 mg PO DAILY 30 Days chewable 10/16/19 [Rx] SUMAtriptan SUCCINATE [Imitrex] 100 mg PO DAILY PRN 05/20/20 [History] Scopolamine 1.5MG/72Hr Patch [TransDerm Scop] 1 patch TRANSDERM Q72H PRN [History] Enoxaparin [Lovenox] 80 mg SQ Q12H 09/08/20 [History] Acetaminophen Tab [Tylenol] 650 mg PO Q6HR PRN tab 09/13/20 [Rx] Follow up Appointment(s)/Referral(s): Karthikeyan Pedro MD [Primary Care Provider] - 1-2 days Patient Instructions/Handouts: Chronic Abdominal Pain (GEN) Activity/Diet/Wound Care/Special Instructions: [facility] can be contacted at [phone] if needed. Discharge Disposition: HOME SELF-CARE
== END 2020-09-13 14:00 | disposition home or self-care (01) | DRG 392 ==
LOC: EC 14:24 → 1SOBS 18:01 → 6NMEDSUR 20:41 → OBSVTOIN 09-09 17:22 → 6NMEDSUR 09-11 00:27
PROVIDERS: ADMIT Internal Medicine; ATTEND Internal Medicine
DX: K31.84 Gastroparesis (principal); Z93.4 Other artificial openings of gastrointestinal tract status; Z20.822 Contact with and (suspected) exposure to COVID-19; E86.0 Dehydration; K21.9 Gastro-esophageal reflux disease without esophagitis; G89.29 Other chronic pain; E03.9 Hypothyroidism, unspecified; G43.909 Migraine, unspecified, not intractable, without status migrainosus; E66.9 Obesity, unspecified; Z68.33 Body mass index [BMI] 33.0-33.9, adult; Z79.82 Long term (current) use of aspirin; Z79.890 Hormone replacement therapy; Z79.899 Other long term (current) drug therapy; Z86.718 Personal history of other venous thrombosis and embolism; Z86.711 Personal history of pulmonary embolism; Z87.19 Personal history of other diseases of the digestive system; Z86.19 Personal history of other infectious and parasitic diseases; Z98.891 History of uterine scar from previous surgery; Z90.49 Acquired absence of other specified parts of digestive tract; Z87.39 Personal history of other diseases of the musculoskeletal system and connective tissue; Z86.59 Personal history of other mental and behavioral disorders; Z86.2 Personal history of diseases of the blood and blood-forming organs and certain disorders involving the immune mechanism; Z96.82 Presence of neurostimulator; Z90.89 Acquired absence of other organs; Z98.890 Other specified postprocedural states; Z71.3 Dietary counseling and surveillance; Z88.8 Allergy status to other drugs, medicaments and biological substances; Z82.49 Family history of ischemic heart disease and other diseases of the circulatory system
CPT/HCPCS: 36415; 74018; 80048; 80053; 81001; 82150; 83605; 83690; 83735; 85025; 85610; 85730; 87635; 96361; 96374; 96375; 99285

== ENCOUNTER 2020-09-15 15:07 | Emergency (ER) | payer BC ==
[2020-09-15 15:11] VITALS: BP 130/89; PULSE 113; RESP 20; TEMP 98.4
[2020-09-15] MEDS ORDERED: HYDROmorphone 1 MG/ML 1 ML SYRINGE IVP STA ×2 (15:40→17:06)
[2020-09-15] MEDS ORDERED: ONDANSETRON 4 MG/2 ML VIAL IVP STA (15:40)
[2020-09-15] MEDS ORDERED: SODIUM CHLORIDE 0.9% 1,000 ML IV STA (15:40)
[2020-09-15 16:20] LABS: Basophils # (A) 0.1 k/uL (0-0.2); Basophils % (A) 1 %; Eosinophils # (A) 0.1 k/uL (0-0.7); Eosinophils % (A) 1 %; HCT 43.7 % (34.0-46.0); HGB 14.4 gm/dL (11.4-16.0); Lymphocytes # (A) 1.6 k/uL (1.0-4.8); Lymphocytes % (A) 27 %; MCH 28.8 pg (25.0-35.0); MCHC 32.9 g/dL (31.0-37.0); MCV 87.8 fL (80.0-100.0); Mean Platelet Volume 6.7; Monocytes # (A) 0.4 k/uL (0-1.0); Monocytes % (A) 6 %; Neutrophils # (A) 3.7 k/uL (1.3-7.7); Neutrophils % (A) 63 %; Platelet Count 302 k/uL (150-450); RBC 4.97 m/uL (3.80-5.40); RDW 13.3 % (11.5-15.5); WBC 5.9 k/uL (3.8-10.6)
--- NOTE | 2020-09-15 16:22 | ED ---
Abdominal Pain HPI - General Chief Complaint: Abdominal Pain Stated Complaint: J tube discharge Time Seen by Provider: 09/15/20 15:15 Source: patient Mode of arrival: wheelchair Limitations: no limitations - History of Present Illness Initial Comments: 40-year-old female with history of gastroparesis presents to emergency Department with chief complaint of J-tube malfunction. Patient reports she was discharged 2 days ago from this hospital. He states after discharge, she developed upper abdominal tenderness. States today she has noticed some fecal- like discharge near the J-tube. States this is uncommon for her. She has occasional excoriations from acid but nothing like this. Patient states she has not had a bowel movements in over 3 days. She does report nausea and multiple episodes of nonbilious and nonbloody vomiting. States the tube was placed several Years ago by from [facility]. She denies any urinary or vaginal symptoms. States the J-tube is flushing well otherwise. Patient is concerned for possible obstruction. - Related Data Home Medications Medication Instructions Recorded Confirmed Montelukast Chew [Singulair] 10 mg PO DAILY 02/02/18 09/08/20 Prucalopride Succinate [Motegrity] 2 mg PO DAILY 01/14/19 09/08/20 oxyCODONE HCL [oxyCODONE HCL (IR)] 10 mg PO Q8H PRN 04/20/19 09/08/20 Linaclotide [Linzess] 290 mcg PO DAILY 05/24/19 09/08/20 Tegaserod Hydrogen Maleate 6 mg PO AC-BID 05/24/19 09/08/20 [Zelnorm] Lansoprazole 30 mg PO BID 08/27/19 09/08/20 Levothyroxine Sodium [Synthroid] 100 mcg PO DAILY 10/04/19 09/08/20 SUMAtriptan SUCCINATE [Imitrex] 100 mg PO DAILY PRN 05/20/20 09/08/20 Scopolamine 1.5MG/72Hr Patch 1 patch TRANSDERM Q72H PRN 05/25/20 09/08/20 [TransDerm Scop] Enoxaparin [Lovenox] 80 mg SQ Q12H 09/08/20 09/08/20 Previous Rx's Medication Instructions Recorded Aspirin 81 mg PO DAILY 30 Days chewable 10/16/19 Acetaminophen Tab [Tylenol] 650 mg PO Q6HR PRN tab 09/13/20 Allergies Allergy/AdvReac Type Severity Reaction Status Date / Time metoclopramide [From Reglan] AdvReac Mild jittery Verified 09/15/20 15:11 prochlorperazine AdvReac Mild JITTERY Verified 09/15/20 15:11 [From Compazine] Review of Systems ROS Statement: Those systems with pertinent positive or pertinent negative responses have been documented in the HPI. ROS Other: All systems not noted in ROS Statement are negative. Past Medical History Past Medical History: Deep Vein Thrombosis (DVT), GERD/Reflux, Pulmonary Embolus (PE), Thyroid Disorder Additional Past Medical History / Comment(s): Idiopathic gastroparesis, takes little in orally-has J tube for feedings and gastric stimulator- chronic abdominal pain, R pulmonary embolism -2017, dvt R upper extremity 2018, pancreatitis once in 2018-thought stone somewhere, hypothyroid, chronic anemia, sinus problems, migraine. 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 Mother Family Medical History: No Reported History Additional Family Medical History / Comment(s): Mother is 58yrs old. General Exam Limitations: no limitations General appearance: alert, in no apparent distress Head exam: Present: atraumatic, normocephalic, normal inspection Eye exam: Present: normal appearance, PERRL, EOMI Pupils: Present: normal accommodation ENT exam: Present: normal exam, normal oropharynx, mucous membranes moist Neck exam: Present: normal inspection, full ROM. Absent: tenderness, lymphadenopathy Respiratory exam: Present: normal lung sounds bilaterally. Absent: respiratory distress Cardiovascular Exam: Present: regular rate, normal rhythm, normal heart sounds. Absent: systolic murmur GI/Abdominal exam: Present: soft, tenderness (Diffuse upper abdominal tenderne ss.), other (J-tube appears to be in place. Surrounding brown discharge near the ostomy site.). Absent: distended, guarding, rebound, rigid Extremities exam: Present: normal inspection, full ROM. Absent: tenderness Back exam: Present: normal inspection, full ROM. Absent: tenderness Neurological exam: Present: alert, oriented X3 Psychiatric exam: Present: normal affect, normal mood Skin exam: Present: warm, dry, intact, normal color Course Vital Signs 09/15/20 15:09 Temperature 98.4 F Pulse Rate 113 H Respiratory 20 Rate Blood Pressure 130/89 O2 Sat by Pulse 100 Oximetry Medical Decision Making - Medical Decision Making 40-year-old female with history of gastroparesis presents to emergency Department with chief complaint of J-tube malfunction. On physical examination, the tube appears to be flushing well. There is some excoriation around the insertion site. There is also some brown discharge noted as well. This was cleaned you abd pad was applied. She does have surrounding tenderness in the region. Patient is said many CT imaging given her stomach, the last one was 6 days ago. He decided to only obtain a KUB at this time which showed no acute findings. Laboratory work was also unremarkable. Patient was unable to give a urine sample. Patient was given analgesia and IV fluids and antiemetics. On reevaluation, patient reports improvement of symptoms. He states she has an appointment with her surgeon this week. Return parameters were thoroughly discussed the patient was anything agreeable. Case discussed with - Lab Data Result diagrams: 09/15/20 16:10 09/15/20 16:10 Lab Results 09/15/20 09/15/20 Range/Units 16:10 16:10 WBC 5.9 (3.8-10.6) k/uL RBC 4.97 (3.80-5.40) m/uL Hgb 14.4 (11.4-16.0) gm/dL Hct 43.7 (34.0-46.0) % MCV 87.8 (80.0-100.0) fL MCH 28.8 (25.0-35.0) pg MCHC 32.9 (31.0-37.0) g/dL RDW 13.3 (11.5-15.5) % Plt Count 302 (150-450) k/uL MPV 6.7 Neutrophils % 63 % Lymphocytes % 27 % Monocytes % 6 % Eosinophils % 1 % Basophils % 1 % Neutrophils # 3.7 (1.3-7.7) k/uL Lymphocytes # 1.6 (1.0-4.8) k/uL Monocytes # 0.4 (0-1.0) k/uL Eosinophils # 0.1 (0-0.7) k/uL Basophils # 0.1 (0-0.2) k/uL Sodium 143 (137-145) mmol/L Potassium 3.7 (3.5-5.1) mmol/L Chloride 112 H (98-107) mmol/L Carbon Dioxide 21 L (22-30) mmol/L Anion Gap 10 mmol/L BUN 9 (7-17) mg/dL Creatinine 0.69 (0.52-1.04) mg/dL Est GFR (CKD-EPI)AfAm >90 (>60 ml/min/1.73 sqM) Est GFR (CKD-EPI)NonAf >90 (>60 ml/min/1.73 sqM) Glucose 106 H (74-99) mg/dL Calcium 9.0 (8.4-10.2) mg/dL Total Bilirubin 0.2 (0.2-1.3) mg/dL AST 21 (14-36) U/L ALT 22 (4-34) U/L Alkaline Phosphatase 113 (38-126) U/L Total Protein 6.3 (6.3-8.2) g/dL Albumin 3.8 (3.5-5.0) g/dL Amylase 70 (30-110) U/L Lipase 14 L (23-300) U/L Disposition Clinical Impression: Abdominal pain Disposition: HOME SELF-CARE Condition: Stable Instructions (If sedation given, give patient instructions): Abdominal Pain (ED) Additional Instructions: Please return to the Emergency Department if symptoms worsen or any other con cerns. Is patient prescribed a controlled substance at d/c from ED?: No Referrals: Karthikeyan Pedro MD [Primary Care Provider] - 1-2 days Time of Disposition: 17:05
[2020-09-15 16:29] LABS: Potassium 3.7 mmol/L (3.5-5.1)
[2020-09-15 16:30] LABS: ALT 22 U/L (4-34); AST 21 U/L (14-36); African American GFR (CKD) >90 (>60 ml/min/1.73 sqM); Albumin 3.8 g/dL (3.5-5.0); Alkaline Phosphatase 113 U/L (38-126); Amylase 70 U/L (30-110); Anion Gap 10 mmol/L; Blood Urea Nitrogen 9 mg/dL (7-17); Carbon Dioxide 21 mmol/L (22-30); Chloride 112 mmol/L (98-107); Glucose 106 mg/dL (74-99); Lipase 14 U/L (23-300); Non-African American GFR(CKD) >90 (>60 ml/min/1.73 sqM); Sodium 143 mmol/L (137-145); Total Bilirubin 0.2 mg/dL (0.2-1.3); Total Protein 6.3 g/dL (6.3-8.2)
--- NOTE | 2020-09-15 16:30 | XR ---
EXAMINATION TYPE: XR KUB DATE OF EXAM: 09/15/2020 4:24 PM CLINICAL HISTORY: Possible obstruction. Leakage and drainage around J-tube. TECHNIQUE: Two Upright KUB images of the abdomen are obtained. COMPARISON: Abdominal x-ray series one week ago. CT abdomen and pelvis 12 days ago.. FINDINGS: Right-sided anterior gastric stimulator device redemonstrated. Cholecystectomy clips redemo nstrated. Persistent left-sided percutaneous jejunostomy tube. Surgical sutures left mid abdomen rede monstrated. Overall nonobstructive bowel gas pattern redemonstrated. Metallic IUD redemonstrated over lying the pelvis. No free air. Lung bases remain clear. Visualized osseous structures are intact. IMPRESSION: Overall nonobstructive bowel gas pattern is redemonstrated.
== END 2020-09-15 17:25 | disposition home or self-care (01) ==
LOC: EC 15:07
DX: R10.10 Upper abdominal pain, unspecified (principal); R11.2 Nausea with vomiting, unspecified; E07.9 Disorder of thyroid, unspecified; K21.9 Gastro-esophageal reflux disease without esophagitis; Z79.890 Hormone replacement therapy; Z88.8 Allergy status to other drugs, medicaments and biological substances; Z86.718 Personal history of other venous thrombosis and embolism; Z79.01 Long term (current) use of anticoagulants; Z79.899 Other long term (current) drug therapy
CPT/HCPCS: 99284 ×2; 96374 ×2; 96375 ×2; 96376 ×2; 96361 ×2; 36415; 80053; 82150; 83690; 85025; 74018; J2405; J1170

== ENCOUNTER 2020-09-22 05:17 | Emergency (ER) | payer BC ==
[2020-09-22 06:04] LABS: Basophils # (A) 0.1 k/uL (0-0.2); Basophils % (A) 1 %; Eosinophils # (A) 0.2 k/uL (0-0.7); Eosinophils % (A) 2 %; HCT 42.3 % (34.0-46.0); Lymphocytes # (A) 2.5 k/uL (1.0-4.8); Lymphocytes % (A) 29 %; MCH 30.5 pg (25.0-35.0); MCHC 35.5 g/dL (31.0-37.0); MCV 86.1 fL (80.0-100.0); Mean Platelet Volume 7.2; Monocytes # (A) 0.5 k/uL (0-1.0); Monocytes % (A) 6 %; Neutrophils # (A) 5.2 k/uL (1.3-7.7); Neutrophils % (A) 61 %; Platelet Count 296 k/uL (150-450); RBC 4.92 m/uL (3.80-5.40); RDW 12.9 % (11.5-15.5); WBC 8.6 k/uL (3.8-10.6)
[2020-09-22 06:10] LABS: ALT 15 U/L (4-34); AST 22 U/L (14-36); African American GFR (CKD) >90 (>60 ml/min/1.73 sqM); Albumin 4.4 g/dL (3.5-5.0); Alkaline Phosphatase 106 U/L (38-126); Amylase 65 U/L (30-110); Anion Gap 10 mmol/L; Blood Urea Nitrogen 13 mg/dL (7-17); Calcium 9.5 mg/dL (8.4-10.2); Carbon Dioxide 21 mmol/L (22-30); Chloride 108 mmol/L (98-107); Glucose 96 mg/dL (74-99); Lipase 41 U/L (23-300); Non-African American GFR(CKD) >90 (>60 ml/min/1.73 sqM); Potassium 4.2 mmol/L (3.5-5.1); Sodium 139 mmol/L (137-145); Total Bilirubin 0.4 mg/dL (0.2-1.3); Total Protein 6.9 g/dL (6.3-8.2)
[2020-09-22 06:11] LABS: Amorphous Sediment,Urine Rare /hpf; Appearance,Urine Cloudy (Clear); Bacteria,Urine Many /hpf; Bilirubin,Urine 1+ (Negative); Blood,Urine Moderate (Negative); Calcium Oxalate Crystals,Urine Rare /hpf; Color,Urine Yellow; Glucose,Urine (UA) Negative (Negative); Hyaline Casts,Urine 21 /lpf (0-2); Ketones,Urine Negative (Negative); Leukocyte Esterase,Urine Trace (Negative); Mucus,Urine Many /hpf; Nitrite,Urine Negative (Negative); PH, Urine 5.5 (5.0-8.0); Protein,Urine 1+ (Negative); RBC,Urine 3 /hpf (0-5); Squamous Epithelial Cell,Urine 45 /hpf (0-4); WBC,Urine 12 /hpf (0-5)
[2020-09-22] MEDS ORDERED: SODIUM CHLORIDE 0.9% 1,000 ML IV STA (06:12)
[2020-09-22] MEDS ORDERED: ONDANSETRON 4 MG/2 ML VIAL IVP STA (06:12)
[2020-09-22] MEDS ORDERED: HYDROmorphone 1 MG/ML 1 ML SYRINGE IVP STA ×2 (06:12→07:01)
--- NOTE | 2020-09-22 06:20 | ED ---
Abdominal Pain HPI - General Chief Complaint: Abdominal Pain Stated Complaint: Abd Pain Time Seen by Provider: 09/22/20 05:25 Source: patient Mode of arrival: ambulatory Limitations: no limitations - History of Present Illness Initial Comments: Patient is a 40-year-old female, with history of gastroparesis with J-tube, presenting to the emergency Department with complaints of abdominal pain, nausea and vomiting that started suddenly about 1:30 this morning. Patient states yesterday she felt her normal self. She denies any recent fevers or chills, she's been having normal bowel movements. She denies any chest pain or shortness of breath. She describes the pain as in the middle of her abdominal region, no radiation, consistent. Currently it is a 12/12. She denies any hematemesis or coffee-ground emesis. She denies any dysuria. She has no further complaints. The ER her vitals are stable. - Related Data Home Medications Medication Instructions Recorded Confirmed Montelukast Chew [Singulair] 10 mg PO DAILY 02/02/18 09/08/20 Prucalopride Succinate [Motegrity] 2 mg PO DAILY 01/14/19 09/08/20 oxyCODONE HCL [oxyCODONE HCL (IR)] 10 mg PO Q8H PRN 04/20/19 09/08/20 Linaclotide [Linzess] 290 mcg PO DAILY 05/24/19 09/08/20 Tegaserod Hydrogen Maleate 6 mg PO AC-BID 05/24/19 09/08/20 [Zelnorm] Lansoprazole 30 mg PO BID 08/27/19 09/08/20 Levothyroxine Sodium [Synthroid] 100 mcg PO DAILY 10/04/19 09/08/20 SUMAtriptan SUCCINATE [Imitrex] 100 mg PO DAILY PRN 05/20/20 09/08/20 Scopolamine 1.5MG/72Hr Patch 1 patch TRANSDERM Q72H PRN 05/25/20 09/08/20 [TransDerm Scop] Enoxaparin [Lovenox] 80 mg SQ Q12H 09/08/20 09/08/20 Previous Rx's Medication Instructions Recorded Aspirin 81 mg PO DAILY 30 Days chewable 10/16/19 Acetaminophen Tab [Tylenol] 650 mg PO Q6HR PRN tab 09/13/20 Allergies Allergy/AdvReac Type Severity Reaction Status Date / Time metoclopramide [From Reglan] AdvReac Mild jittery Verified 09/15/20 15:11 prochlorperazine AdvReac Mild JITTERY Verified 09/15/20 15:11 [From Compazine] Review of Systems ROS Statement: Those systems with pertinent positive or pertinent negative responses have been documented in the HPI. ROS Other: All systems not noted in ROS Statement are negative. Past Medical History Past Medical History: Deep Vein Thrombosis (DVT), GERD/Reflux, Pulmonary Embolus (PE), Thyroid Disorder Additional Past Medical History / Comment(s): Idiopathic gastroparesis, takes little in orally-has J tube for feedings and gastric stimulator- chronic abdominal pain, R pulmonary embolism 5-2017, dvt R upper extremity 2018, pancreatitis once in 2018-thought stone somewhere, hypothyroid, chronic anemia, sinus problems, migraine. 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 Mother Family Medical History: No Reported History Additional Family Medical History / Comment(s): Mother is 58yrs old. General Exam - General Exam Comments Initial Comments: GENERAL: Patient is well-developed and well-nourished. Patient is nontoxic and in moderate distress. HEAD: Atraumatic, normocephalic. EYES: Pupils equal round and reactive to light, extraocular movements intact, sclera anicteric, conjunctiva are normal. Eyelids were unremarkable. ENT: TMs normal, nares patent, oropharynx clear without exudates. Moist mucous membranes. NECK: Normal range of motion, supple without lymphadenopathy or JVD. LUNGS: Unlabored respirations. Breath sounds clear to auscultation bilaterally and equal. No wheezes rales or rhonchi. HEART: Regular rate and rhythm without murmurs, rubs or gallops. ABDOMEN: Soft, tender to palpation of the center of the abdomen, no specific area pain. J-tube present, no signs of infection. normoactive bowel sounds. No guarding, no rebound. No masses appreciated. : Deferred MUSCULOSKELETAL: Normal extremities with adequate strength and normal range of motion, no pitting or edema. No clubbing or cyanosis. NEUROLOGICAL: Patient is alert and oriented x 3. Motor and sensory are also intact. Cranial nerves II through XII grossly intact. Symmetrical smile. Normal speech, normal gait. PSYCH: Normal mood, normal affect. SKIN: Warm, Dry, normal turgor, no rashes or lesions noted. Limitations: no limitations Course Vital Signs 09/22/20 09/22/20 09/22/20 05:41 06:44 07:00 Temperature 97.8 F Pulse Rate 96 92 101 H Respiratory 18 20 18 Rate Blood Pressure 141/86 128/81 128/97 O2 Sat by Pulse 93 L 99 99 Oximetry 09/22/20 08:42 Temperature 98.2 F Pulse Rate 105 H Respiratory 18 Rate Blood Pressure 126/69 O2 Sat by Pulse 99 Oximetry Medical Decision Making - Medical Decision Making Patient is a 40-year-old female with history of gastroparesis, well-known to this ER, presenting with abdominal pain, nausea and vomiting started about 1:30 this morning. Her vital signs are stable. Her pain is nonspecific but near the center of her abdomen, no radiation. No fevers. Lab work is unremarkable, urine has a bit of bacteria although this was not a clean sample. Patient has no dysuria or frequency. KUB shows no acute process, J-tube is in correct location. Patient was given fluids and pain control, reports improvement in her symptoms. She states she is going to follow up with her GI specialist. She is stable for discharge and she is in agreement with this plan of care. Return parameters were discussed with her and she verbalized understanding. Case discussed with Dr. Castro. - Lab Data Result diagrams: 09/22/20 05:50 09/22/20 05:50 Lab Results 09/22/20 09/22/20 09/22/20 Range/Units 05:50 05:50 05:50 WBC 8.6 (3.8-10.6) k/uL RBC 4.92 (3.80-5.40) m/uL Hgb 15.0 (11.4-16.0) gm/dL Hct 42.3 (34.0-46.0) % MCV 86.1 (80.0-100.0) fL MCH 30.5 (25.0-35.0) pg MCHC 35.5 (31.0-37.0) g/dL RDW 12.9 (11.5-15.5) % Plt Count 296 (150-450) k/uL MPV 7.2 Neutrophils % 61 % Lymphocytes % 29 % Monocytes % 6 % Eosinophils % 2 % Basophils % 1 % Neutrophils # 5.2 (1.3-7.7) k/uL Lymphocytes # 2.5 (1.0-4.8) k/uL Monocytes # 0.5 (0-1.0) k/uL Eosinophils # 0.2 (0-0.7) k/uL Basophils # 0.1 (0-0.2) k/uL Sodium (137-145) mmol/L Potassium (3.5-5.1) mmol/L Chloride (98-107) mmol/L Carbon Dioxide (22-30) mmol/L Anion Gap mmol/L BUN (7-17) mg/dL Creatinine (0.52-1.04) mg/dL Est GFR (CKD-EPI)AfAm (>60 ml/min/1.73 sqM) Est GFR (CKD-EPI)NonAf (>60 ml/min/1.73 sqM) Glucose (74-99) mg/dL Calcium (8.4-10.2) mg/dL Total Bilirubin (0.2-1.3) mg/dL AST (14-36) U/L ALT (4-34) U/L Alkaline Phosphatase (38-126) U/L Total Protein (6.3-8.2) g/dL Albumin (3.5-5.0) g/dL Amylase (30-110) U/L Lipase (23-300) U/L Urine Color Yellow Urine Appearance Cloudy H (Clear) Urine pH 5.5 (5.0-8.0) Ur Specific [place] 1.030 (1.001-1.035) Urine Protein 1+ H (Negative) Urine Glucose (UA) Negative (Negative) Urine Ketones Negative (Negative) Urine Blood Moderate H (Negative) Urine Nitrite Negative (Negative) Urine Bilirubin 1+ H (Negative) Urine Urobilinogen 2.0 (<2.0) mg/dL Ur Leukocyte Esterase Trace H (Negative) Urine RBC 3 (0-5) /hpf Urine WBC 12 H (0-5) /hpf Ur Squamous Epith Cells 45 H (0-4) /hpf Calcium Oxalate Crystal Rare H (None) /hpf Amorphous Sediment Rare H (None) /hpf Urine Bacteria Many H (None) /hpf Hyaline Casts 21 H (0-2) /lpf Urine Mucus Many H (None) /hpf Urine HCG, Qual Not Detected (Not Detectd) 09/22/20 Range/Units 05:50 WBC (3.8-10.6) k/uL RBC (3.80-5.40) m/uL Hgb (11.4-16.0) gm/dL Hct (34.0-46.0) % MCV (80.0-100.0) fL MCH (25.0-35.0) pg MCHC (31.0-37.0) g/dL RDW (11.5-15.5) % Plt Count (150-450) k/uL MPV Neutrophils % % Lymphocytes % % Monocytes % % Eosinophils % % Basophils % % Neutrophils # (1.3-7.7) k/uL Lymphocytes # (1.0-4.8) k/uL Monocytes # (0-1.0) k/uL Eosinophils # (0-0.7) k/uL Basophils # (0-0.2) k/uL Sodium 139 (137-145) mmol/L Potassium 4.2 (3.5-5.1) mmol/L Chloride 108 H (98-107) mmol/L Carbon Dioxide 21 L (22-30) mmol/L Anion Gap 10 mmol/L BUN 13 (7-17) mg/dL Creatinine 0.73 (0.52-1.04) mg/dL Est GFR (CKD-EPI)AfAm >90 (>60 ml/min/1.73 sqM) Est GFR (CKD-EPI)NonAf >90 (>60 ml/min/1.73 sqM) Glucose 96 (74-99) mg/dL Calcium 9.5 (8.4-10.2) mg/dL Total Bilirubin 0.4 (0.2-1.3) mg/dL AST 22 (14-36) U/L ALT 15 (4-34) U/L Alkaline Phosphatase 106 (38-126) U/L Total Protein 6.9 (6.3-8.2) g/dL Albumin 4.4 (3.5-5.0) g/dL Amylase 65 (30-110) U/L Lipase 41 (23-300) U/L Urine Color Urine Appearance (Clear) Urine pH (5.0-8.0) Ur Specific [place] (1.001-1.035) Urine Protein (Negative) Urine Glucose (UA) (Negative) Urine Ketones (Negative) Urine Blood (Negative) Urine Nitrite (Negative) Urine Bilirubin (Negative) Urine Urobilinogen (<2.0) mg/dL Ur Leukocyte Esterase (Negative) Urine RBC (0-5) /hpf Urine WBC (0-5) /hpf Ur Squamous Epith Cells (0-4) /hpf Calcium Oxalate Crystal (None) /hpf Amorphous Sediment (None) /hpf Urine Bacteria (None) /hpf Hyaline Casts (0-2) /lpf Urine Mucus (None) /hpf Urine HCG, Qual (Not Detectd) Disposition Clinical Impression: Abdominal pain, Nausea & vomiting Disposition: HOME SELF-CARE Condition: Stable Instructions (If sedation given, give patient instructions): Abdominal Pain (ED) Additional Instructions: Please return to the Emergency Department if symptoms worsen or any other concerns. Recommend following up with your GI specialist as discussed. Is patient prescribed a controlled substance at d/c from ED?: No Referrals: Karthikeyan Pedro MD [Primary Care Provider] - 1-2 days Time of Disposition: 08:34
--- NOTE | 2020-09-22 06:21 | XR ---
EXAMINATION TYPE: XR KUB DATE OF EXAM: 09/22/2020 COMPARISON: 09/15/2020 HISTORY: Discharge from the jejunostomy tube TECHNIQUE: 2 views upright FINDINGS: There is no sign of intestinal obstruction or pneumoperitoneum. Fecal pattern is normal. Th ere is no evidence of a mass. There are clips from cholecystectomy. There is balloon catheter over th e left mid abdomen apparently the jejunostomy tube. IMPRESSION: Nonacute abdomen. Jejunostomy catheter probably not changed in position compared to last exam. No bowel obstruction. No free air.
[2020-09-22 07:39] VITALS: RESP 18
[2020-09-22] MEDS ORDERED: HYDROmorphone 0.5 MG/0.5 ML SYRINGE IVP STA (08:21)
[2020-09-22 08:43] VITALS: BP 126/69; PULSE 105; TEMP 98.2
== END 2020-09-22 08:47 | disposition home or self-care (01) ==
LOC: EC 05:17
DX: R10.9 Unspecified abdominal pain (principal); R11.2 Nausea with vomiting, unspecified; K21.9 Gastro-esophageal reflux disease without esophagitis; E03.9 Hypothyroidism, unspecified; Z88.8 Allergy status to other drugs, medicaments and biological substances; Z90.49 Acquired absence of other specified parts of digestive tract; Z88.6 Allergy status to analgesic agent; Z79.890 Hormone replacement therapy; Z79.899 Other long term (current) drug therapy; Z93.4 Other artificial openings of gastrointestinal tract status
CPT/HCPCS: 99284; 96374; 96375; 96376; 96361; 36415; 80053; 82150; 83690; 85025; 81001; 81025; 74018; J2405; J1170 ×2; J1642

== ENCOUNTER 2020-10-07 09:05 | Emergency (ER) | payer BC ==
[2020-10-07 09:09] VITALS: BP 120/80; PULSE 94; RESP 18; TEMP 98
--- NOTE | 2020-10-07 09:28 | ED ---
General Adult HPI - General Chief complaint: Recheck/Abnormal Lab/Rx Stated complaint: Feeding Tube Fell Out Time Seen by Provider: 10/07/20 09:17 Source: patient Limitations: no limitations - History of Present Illness Initial comments: Dictation was produced using [employer] dictation software. please excuse any grammatical, word or spelling errors. Chief Complaint: 40-year-old female with past medical history of gastroparesis presents with G-tube displacement History of Present Illness: 40-year-old female 2 days ago her G-tube fell out. She went to days without detected replacement because her out camping. She is here today for PEG tube replacement. Initial PEG tube was placed several years ago. The ROS documented in this emergency department record has been reviewed and confirmed by me. Those systems with pertinent positive or negative responses have been documented in the HPI. All other systems are other negative and/or noncontributory. PHYSICAL EXAM: General Impression: Alert and oriented x3, not in acute distress HEENT: Normocephalic atraumatic, extra-ocular movements intact, pupils equal and reactive to light bilaterally, mucous membranes moist. Cardiovascular: Heart regular rate and rhythm Chest: Able to complete full sentences, no retractions, no tachypnea Abdomen: abdomen soft, non-tender, non-distended, no organomegaly, PEG tube site slightly erythematous Musculoskeletal: Pulses present and equal in all extremities, no peripheral edema Motor: no focal deficits noted Neurological: CN II-XII grossly intact, no focal motor or sensory deficits noted Skin: Intact with no visualized rashes Psych: Normal affect and mood ED course: 40-year-old female presents with PEG tube displacement. She states that her PEG tube fell out 2 days ago. Is upon arrival are within acceptable limits. PEG tube replacement was attempted at bedside however the tract appears to be closed. Case discussed with Dr. ulloa. He is familiar with patient I does not feel comfortable attempting PEG tube given patient's medical history. Dr. Barfield was con call. He was contacted and is familiar with patient. He wants patient to follow-up in his office for outpatient management of PEG tube placement. Once is here in his office at 2 PM. Patient is agreeable with that plan. She able to tolerate liquids. - Related Data Home Medications Medication Instructions Recorded Confirmed Montelukast Chew [Singulair] 10 mg PO DAILY 02/02/18 10/07/20 Prucalopride Succinate [Motegrity] 2 mg PO DAILY 01/14/19 10/07/20 oxyCODONE HCL [oxyCODONE HCL (IR)] 10 mg PO Q8H PRN 04/20/19 10/07/20 Linaclotide [Linzess] 290 mcg PO DAILY 05/24/19 10/07/20 Tegaserod Hydrogen Maleate 6 mg PO AC-BID 05/24/19 10/07/20 [Zelnorm] Lansoprazole 30 mg PO BID 08/27/19 10/07/20 Levothyroxine Sodium [Synthroid] 100 mcg PO DAILY 10/04/19 10/07/20 SUMAtriptan SUCCINATE [Imitrex] 100 mg PO DAILY PRN 05/20/20 10/07/20 Scopolamine 1.5MG/72Hr Patch 1 patch TRANSDERM Q72H PRN 05/25/20 10/07/20 [TransDerm Scop] Enoxaparin [Lovenox] 80 mg SQ Q12H 09/08/20 10/07/20 Topiramate [Trokendi Xr] 50 mg PO DAILY 10/07/20 10/07/20 Previous Rx's Medication Instructions Recorded Aspirin 81 mg PO DAILY 30 Days chewable 10/16/19 Allergies Allergy/AdvReac Type Severity Reaction Status Date / Time metoclopramide [From Reglan] AdvReac Mild jittery Verified 10/07/20 09:48 prochlorperazine AdvReac Mild JITTERY Verified 10/07/20 09:48 [From Compazine] Review of Systems ROS Statement: Those systems with pertinent positive or pertinent negative responses have been documented in the HPI. ROS Other: All systems not noted in ROS Statement are negative. Past Medical History Past Medical History: Deep Vein Thrombosis (DVT), GERD/Reflux, Pulmonary Embolus (PE), Thyroid Disorder Additional Past Medical History / Comment(s): Idiopathic gastroparesis, takes little in orally-has J tube for feedings and gastric stimulator- chronic abdominal pain, R pulmonary embolism 5-2017, dvt R upper extremity 2019, pancreatitis once in 2018-thought stone somewhere, hypothyroid, chronic anemia, sinus problems, migraine. 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 Mother Family Medical History: No Reported History Additional Family Medical History / Comment(s): Mother is 58yrs old. General Exam Limitations: no limitations Course Vital Signs 10/07/20 09:05 Temperature 98 F Pulse Rate 94 Respiratory 18 Rate Blood Pressure 120/80 O2 Sat by Pulse 98 Oximetry Disposition Clinical Impression: PEG tube malfunction Disposition: HOME SELF-CARE Condition: Fair Instructions (If sedation given, give patient instructions): Percutaneous Endoscopic Gastrostomy (ED) Additional Instructions: Follow-up and Dr. Segovia's office at 2 PM today Is patient prescribed a controlled substance at d/c from ED?: No Referrals: Juice Segovia MD [STAFF PHYSICIAN] - 10/07/20 2:00 pm
== END 2020-10-07 10:22 | disposition home or self-care (01) ==
LOC: EC 09:05
DX: K94.23 Gastrostomy malfunction (principal); E03.9 Hypothyroidism, unspecified; K21.9 Gastro-esophageal reflux disease without esophagitis; Z88.8 Allergy status to other drugs, medicaments and biological substances; Z79.899 Other long term (current) drug therapy; Z79.890 Hormone replacement therapy
CPT/HCPCS: 99282

== ENCOUNTER 2020-10-17 21:08 | Emergency (ER) | payer BC ==
[2020-10-18 00:19] LABS: Appearance,Urine Clear (Clear); Bilirubin,Urine Negative (Negative); Blood,Urine Negative (Negative); Color,Urine Light Yellow; Glucose,Urine (UA) Negative (Negative); Ketones,Urine Negative (Negative); Leukocyte Esterase,Urine Negative (Negative); Nitrite,Urine Negative (Negative); PH, Urine 5.5 (5.0-8.0); Protein,Urine Negative (Negative); Specific Gravity,Urine 1.021 (1.001-1.035); Urobilinogen,Urine <2.0 mg/dL (<2.0)
[2020-10-18 02:16] LABS: Basophils % (A) 0 %; Eosinophils % (A) 0 %; HGB 15.4 gm/dL (11.4-16.0); Lymphocytes # (A) 1.3 k/uL (1.0-4.8); Lymphocytes % (A) 15 %; MCHC 34.3 g/dL (31.0-37.0); MCV 87.5 fL (80.0-100.0); Mean Platelet Volume 6.7; Monocytes # (A) 0.1 k/uL (0-1.0); Monocytes % (A) 1 %; Neutrophils # (A) 7.4 k/uL (1.3-7.7); Neutrophils % (A) 83 %; Platelet Count 391 k/uL (150-450); RBC 5.14 m/uL (3.80-5.40); RDW 13.2 % (11.5-15.5); WBC 8.9 k/uL (3.8-10.6)
[2020-10-18 02:27] LABS: African American GFR (CKD) >90 (>60 ml/min/1.73 sqM); Anion Gap 10 mmol/L; Blood Urea Nitrogen 13 mg/dL (7-17); Calcium 10.4 mg/dL (8.4-10.2); Carbon Dioxide 22 mmol/L (22-30); Chloride 109 mmol/L (98-107); Glucose 140 mg/dL (74-99); Non-African American GFR(CKD) >90 (>60 ml/min/1.73 sqM); Potassium 4.1 mmol/L (3.5-5.1); Sodium 141 mmol/L (137-145)
--- NOTE | 2020-10-18 02:38 | ED ---
General Adult HPI - General Chief complaint: Recheck/Abnormal Lab/Rx Stated complaint: port infection Time Seen by Provider: 10/17/20 21:34 Source: patient Mode of arrival: ambulatory Limitations: no limitations - History of Present Illness Initial comments: Patient complains of having developed fever. States that also feels that her port site does not appear right. -: days(s) Location: chest Quality: burning Consistency: constant Improves with: none Worsens with: none Associated Symptoms: fever/chills Treatments Prior to Arrival: none - Related Data Home Medications Medication Instructions Recorded Confirmed Montelukast Chew [Singulair] 10 mg PO DAILY 02/02/18 10/17/20 Prucalopride Succinate [Motegrity] 2 mg PO DAILY 01/14/19 10/17/20 oxyCODONE HCL [oxyCODONE HCL (IR)] 10 mg PO Q8H PRN 04/20/19 10/17/20 Linaclotide [Linzess] 290 mcg PO DAILY 05/24/19 10/17/20 Tegaserod Hydrogen Maleate 6 mg PO AC-BID 05/24/19 10/17/20 [Zelnorm] Lansoprazole 30 mg PO BID 08/27/19 10/17/20 Levothyroxine Sodium [Synthroid] 100 mcg PO DAILY 10/04/19 10/17/20 SUMAtriptan SUCCINATE [Imitrex] 100 mg PO DAILY PRN 05/20/20 10/17/20 Scopolamine 1.5MG/72Hr Patch 1 patch TRANSDERM Q72H PRN 05/25/20 10/17/20 [TransDerm Scop] Enoxaparin [Lovenox] 80 mg SQ Q12H 09/08/20 10/17/20 Topiramate [Trokendi Xr] 50 mg PO DAILY 10/07/20 10/17/20 Previous Rx's Medication Instructions Recorded Aspirin 81 mg PO DAILY 30 Days chewable 10/16/19 Allergies Allergy/AdvReac Type Severity Reaction Status Date / Time metoclopramide [From Reglan] AdvReac Mild jittery Verified 10/17/20 21:23 prochlorperazine AdvReac Mild JITTERY Verified 10/17/20 21:23 [From Compazine] Review of Systems ROS Statement: Those systems with pertinent positive or pertinent negative responses have been documented in the HPI. ROS Other: All systems not noted in ROS Statement are negative. Constitutional: Reports: fever, chills Respiratory: Denies: cough, dyspnea, wheezes Cardiovascular: Reports: as per HPI, chest pain. Denies: palpitations, dyspnea on exertion, edema Gastrointestinal: Denies: abdominal pain, nausea, vomiting, diarrhea Genitourinary: Denies: dysuria, frequency, hematuria Musculoskeletal: Denies: back pain Skin: Denies: rash Neurological: Denies: headache Past Medical History Past Medical History: Deep Vein Thrombosis (DVT), GERD/Reflux, Pulmonary Embolus (PE), Thyroid Disorder Additional Past Medical History / Comment(s): Idiopathic gastroparesis, takes little in orally-has J tube for feedings and gastric stimulator- chronic abdominal pain, R pulmonary embolism -2017, dvt R upper extremity 2018, pancreatitis once in 2018-thought stone somewhere, hypothyroid, chronic anemia, sinus problems, migraine. 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 Mother Family Medical History: No Reported History Additional Family Medical History / Comment(s): Mother is 58yrs old. General Exam Limitations: no limitations General appearance: alert, in no apparent distress Head exam: Present: atraumatic, normocephalic Eye exam: Present: normal appearance. Absent: scleral icterus, conjunctival injection ENT exam: Present: normal oropharynx Neck exam: Present: normal inspection Respiratory exam: Present: normal lung sounds bilaterally. Absent: respiratory distress, wheezes, rales, rhonchi, stridor Cardiovascular Exam: Present: normal rhythm, tachycardia, normal heart sounds. Absent: systolic murmur, diastolic murmur, rubs, gallop GI/Abdominal exam: Present: soft. Absent: distended, tenderness, guarding, rebound, rigid, mass Extremities exam: Present: normal inspection, normal capillary refill Back exam: Present: normal inspection Neurological exam: Present: alert Skin exam: Present: warm, dry, intact, normal color. Absent: rash Course Vital Signs 10/17/20 10/17/20 10/17/20 21:20 22:16 23:00 Temperature 98.6 F 98.5 F Pulse Rate 116 H 97 Respiratory 20 Rate Blood Pressure 129/86 O2 Sat by Pulse 99 99 Oximetry 10/18/20 02:50 Temperature 98.4 F Pulse Rate 91 Respiratory 18 Rate Blood Pressure 109/79 O2 Sat by Pulse 99 Oximetry Medical Decision Making - Lab Data Result diagrams: 10/17/20 01:45 10/17/20 01:45 Lab Results 10/17/20 10/17/20 10/17/20 Range/Units 01:45 01:45 22:39 WBC 8.9 (3.8-10.6) k/uL RBC 5.14 (3.80-5.40) m/uL Hgb 15.4 (11.4-16.0) gm/dL Hct 45.0 (34.0-46.0) % MCV 87.5 (80.0-100.0) fL MCH 30.0 (25.0-35.0) pg MCHC 34.3 (31.0-37.0) g/dL RDW 13.2 (11.5-15.5) % Plt Count 391 (150-450) k/uL MPV 6.7 Neutrophils % 83 % Lymphocytes % 15 % Monocytes % 1 % Eosinophils % 0 % Basophils % 0 % Neutrophils # 7.4 (1.3-7.7) k/uL Lymphocytes # 1.3 (1.0-4.8) k/uL Monocytes # 0.1 (0-1.0) k/uL Eosinophils # 0.0 (0-0.7) k/uL Basophils # 0.0 (0-0.2) k/uL Sodium 141 (137-145) mmol/L Potassium 4.1 (3.5-5.1) mmol/L Chloride 109 H (98-107) mmol/L Carbon Dioxide 22 (22-30) mmol/L Anion Gap 10 mmol/L BUN 13 (7-17) mg/dL Creatinine 0.74 (0.52-1.04) mg/dL Est GFR (CKD-EPI)AfAm >90 (>60 ml/min/1.73 sqM) Est GFR (CKD-EPI)NonAf >90 (>60 ml/min/1.73 sqM) Glucose 140 H (74-99) mg/dL Calcium 10.4 H (8.4-10.2) mg/dL Urine Color Urine Appearance (Clear) Urine pH (5.0-8.0) Ur Specific [place] (1.001-1.035) Urine Protein (Negative) Urine Glucose (UA) (Negative) Urine Ketones (Negative) Urine Blood (Negative) Urine Nitrite (Negative) Urine Bilirubin (Negative) Urine Urobilinogen (<2.0) mg/dL Ur Leukocyte Esterase (Negative) Coronavirus (PCR) Not Detected (Not Detectd) 10/18/20 Range/Units 00:01 WBC (3.8-10.6) k/uL RBC (3.80-5.40) m/uL Hgb (11.4-16.0) gm/dL Hct (34.0-46.0) % MCV (80.0-100.0) fL MCH (25.0-35.0) pg MCHC (31.0-37.0) g/dL RDW (11.5-15.5) % Plt Count (150-450) k/uL MPV Neutrophils % % Lymphocytes % % Monocytes % % Eosinophils % % Basophils % % Neutrophils # (1.3-7.7) k/uL Lymphocytes # (1.0-4.8) k/uL Monocytes # (0-1.0) k/uL Eosinophils # (0-0.7) k/uL Basophils # (0-0.2) k/uL Sodium (137-145) mmol/L Potassium (3.5-5.1) mmol/L Chloride (98-107) mmol/L Carbon Dioxide (22-30) mmol/L Anion Gap mmol/L BUN (7-17) mg/dL Creatinine (0.52-1.04) mg/dL Est GFR (CKD-EPI)AfAm (>60 ml/min/1.73 sqM) Est GFR (CKD-EPI)NonAf (>60 ml/min/1.73 sqM) Glucose (74-99) mg/dL Calcium (8.4-10.2) mg/dL Urine Color Light Yellow Urine Appearance Clear (Clear) Urine pH 5.5 (5.0-8.0) Ur Specific [place] 1.021 (1.001-1.035) Urine Protein Negative (Negative) Urine Glucose (UA) Negative (Negative) Urine Ketones Negative (Negative) Urine Blood Negative (Negative) Urine Nitrite Negative (Negative) Urine Bilirubin Negative (Negative) Urine Urobilinogen <2.0 (<2.0) mg/dL Ur Leukocyte Esterase Negative (Negative) Coronavirus (PCR) (Not Detectd) Disposition Clinical Impression: History of fever, C Disposition: HOME SELF-CARE Condition: Fair Instructions (If sedation given, give patient instructions): Fever in Adults (ED) Is patient prescribed a controlled substance at d/c from ED?: No Referrals: Karthikeyan Pedro MD [Primary Care Provider] - 1-2 days Flor Hess DO [STAFF PHYSICIAN] - 1-2 days
[2020-10-18 02:52] VITALS: BP 109/79; PULSE 91; RESP 18; TEMP 98.4
== END 2020-10-18 02:52 | disposition home or self-care (01) ==
LOC: EC 21:08
DX: R50.9 Fever, unspecified (principal); K21.9 Gastro-esophageal reflux disease without esophagitis; E03.9 Hypothyroidism, unspecified; G43.909 Migraine, unspecified, not intractable, without status migrainosus; Z88.8 Allergy status to other drugs, medicaments and biological substances; Z79.899 Other long term (current) drug therapy; Z79.890 Hormone replacement therapy; Z86.711 Personal history of pulmonary embolism; Z86.718 Personal history of other venous thrombosis and embolism; Z79.01 Long term (current) use of anticoagulants; Z20.822 Contact with and (suspected) exposure to COVID-19
CPT/HCPCS: 36415; 80048; 81003; 85025; 87040; 87635; 99283

== ENCOUNTER 2021-02-02 01:53 | Emergency (ER) | payer BC ==
[2021-02-02] MEDS ORDERED: ONDANSETRON 4 MG/2 ML VIAL IVP STA (03:03)
[2021-02-02] MEDS ORDERED: diphenhydrAMINE 50 MG/ML 1 ML VIAL IVP STA (03:03)
[2021-02-02] MEDS ORDERED: HYDROmorphone 1 MG/ML 1 ML SYRINGE IVP STA ×2 (03:03→04:57)
[2021-02-02] MEDS: SODIUM CHLORIDE 0.9% 500 ML 500 ML IV SCH ×2 (03:23→04:15)
--- NOTE | 2021-02-02 03:32 | XR ---
EXAMINATION TYPE: XR chest 1V portable DATE OF EXAM: 02/02/2021 COMPARISON: 05/25/2020 HISTORY: Fever TECHNIQUE: Single view FINDINGS: Heart and mediastinum are normal. Lungs are clear of infiltrate. There is no heart failure. There is small area of subsegmental atelectasis right lower lobe. Bony thorax is intact. IMPRESSION: Mild right lung base subsegmental atelectasis. Normal heart.
[2021-02-02 03:37] LABS: Chloride 107 mmol/L (98-107)
[2021-02-02 03:39] LABS: ALT 17 U/L (4-34); AST 18 U/L (14-36); African American GFR (CKD) >90 (>60 ml/min/1.73 sqM); Albumin 4.5 g/dL (3.5-5.0); Alkaline Phosphatase 123 U/L (38-126); Anion Gap 12 mmol/L; Blood Urea Nitrogen 9 mg/dL (7-17); Calcium 9.6 mg/dL (8.4-10.2); Carbon Dioxide 18 mmol/L (22-30); Glucose 96 mg/dL (74-99); Non-African American GFR(CKD) >90 (>60 ml/min/1.73 sqM); Potassium 4.4 mmol/L (3.5-5.1); Sodium 137 mmol/L (137-145); Total Bilirubin 0.4 mg/dL (0.2-1.3); Total Protein 7.5 g/dL (6.3-8.2)
[2021-02-02 03:53] LABS: Basophils % (A) 0 %; Eosinophils # (A) 0.1 k/uL (0-0.7); Eosinophils % (A) 1 %; HGB 14.6 gm/dL (11.4-16.0); Lymphocytes # (A) 1.9 k/uL (1.0-4.8); Lymphocytes % (A) 16 %; MCH 29.6 pg (25.0-35.0); Mean Platelet Volume 6.7; Monocytes # (A) 0.7 k/uL (0-1.0); Monocytes % (A) 6 %; Neutrophils # (A) 8.5 k/uL (1.3-7.7); Neutrophils % (A) 74 %; Platelet Count 375 k/uL (150-450); RBC 4.94 m/uL (3.80-5.40); RDW 13.7 % (11.5-15.5); WBC 11.4 k/uL (3.8-10.6)
--- NOTE | 2021-02-02 04:31 | ED ---
General Adult HPI - General Chief complaint: Fever Stated complaint: Fever, high heart rate Time Seen by Provider: 02/02/21 02:31 Source: patient Mode of arrival: wheelchair - History of Present Illness Initial comments: 40-year-old female patient presents to the emergency department today for evaluation of generalized body pain, nausea, intermittent fevers. States symptoms started this morning have been worsening throughout the day. States she has been taking Tylenol. She does have a Mediport is concerned for possible infection. She reports mild intermittent cough. Reports mild right upper quadrant abdominal pain which is not unusual for her. She has had some diarrh ea. Patient denies any recent rash, shortness of breath, chest pain, constipation, back pain, numbness, tingling, dizziness, weakness, hematuria, dysuria, urinary urgency, urinary frequency, headache, visual changes, or any other complaints. - Related Data Home Medications Medication Instructions Recorded Confirmed Montelukast Chew [Singulair chew] 10 mg PO DAILY 02/02/18 10/17/20 Prucalopride Succinate [Motegrity] 2 mg PO DAILY 01/14/19 10/17/20 oxyCODONE HCL [oxyCODONE HCL (IR)] 10 mg PO Q8H PRN 04/20/19 10/17/20 Linaclotide [Linzess] 290 mcg PO DAILY 05/24/19 10/17/20 Tegaserod Hydrogen Maleate 6 mg PO AC-BID 05/24/19 10/17/20 [Zelnorm] Lansoprazole 30 mg PO BID 08/27/19 10/17/20 Levothyroxine Sodium [Synthroid] 100 mcg PO DAILY 10/04/19 10/17/20 SUMAtriptan SUCCINATE [Imitrex] 100 mg PO DAILY PRN 05/20/20 10/17/20 Scopolamine 1.5MG/72Hr Patch 1 patch TRANSDERM Q72H PRN 05/25/20 10/17/20 [TransDerm Scop] Enoxaparin [Lovenox] 80 mg SQ Q12H 09/08/20 10/17/20 Topiramate [Trokendi Xr] 50 mg PO DAILY 10/07/20 10/17/20 Previous Rx's Medication Instructions Recorded Aspirin 81 mg PO DAILY 30 Days chewable 10/16/19 Allergies Allergy/AdvReac Type Severity Reaction Status Date / Time metoclopramide [From Reglan] AdvReac Mild jittery Verified 02/02/21 02:01 prochlorperazine AdvReac Mild JITTERY Verified 02/02/21 02:01 [From Compazine] Review of Systems ROS Statement: Those systems with pertinent positive or pertinent negative responses have been documented in the HPI. ROS Other: All systems not noted in ROS Statement are negative. Past Medical History Past Medical History: Deep Vein Thrombosis (DVT), GERD/Reflux, Pulmonary Embolus (PE), Thyroid Disorder Additional Past Medical History / Comment(s): Idiopathic gastroparesis, takes little in orally-has J tube for feedings and gastric stimulator- chronic abdominal pain, R pulmonary embolism 5-2017, dvt R upper extremity 2018, pancreatitis once in 2018-thought stone somewhere, hypothyroid, chronic anemia, sinus problems, migraine. 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 Mother Family Medical History: No Reported History Additional Family Medical History / Comment(s): Mother is 58yrs old. General Exam General appearance: alert, in no apparent distress, other (This is a well- developed, well-nourished adult female patient in no acute distress. Vital signs upon presentation are temperature 98.8F, pulse 105, respirations 19, blood pressure 126/73, pulse ox 97% on room air.) Eye exam: Present: normal appearance, PERRL, EOMI. Absent: scleral icterus, conjunctival injection, periorbital swelling ENT exam: Present: normal exam, normal oropharynx, mucous membranes moist Respiratory exam: Present: normal lung sounds bilaterally. Absent: respiratory distress, wheezes, rales, rhonchi, stridor Cardiovascular Exam: Present: normal rhythm, tachycardia, normal heart sounds. Absent: systolic murmur, diastolic murmur, rubs, gallop, clicks GI/Abdominal exam: Present: soft, normal bowel sounds. Absent: distended, tenderness, guarding, rebound, rigid Neurological exam: Present: alert, oriented X3, CN II-XII intact Psychiatric exam: Present: normal affect, normal mood Skin exam: Present: warm, dry, intact, normal color. Absent: rash Course Vital Signs 02/02/21 01:57 Temperature 98.8 F Pulse Rate 105 H Respiratory 19 Rate Blood Pressure 126/73 O2 Sat by Pulse 97 Oximetry Medical Decision Making - Medical Decision Making 40 year-old female patient presents to the emergency department for evaluation of body aches and fevers over the last 24 hours. Physical examination is unremarkable. Abdomen soft. No signs of infection around her J-tube. Labs reviewed and did reveal mildly elevated white blood cell count. Chest x-ray showed some mild atelectasis right midlung. Upon reevaluation she is resting comfortably. We did have blood cultures drawn. We discharged follow up with her primary care physician awake cultures. Return parameters were discussed in detail. She verbalizes understanding and agrees with this plan. Case discussed with my attending Dr. Finch. - Lab Data Result diagrams: 02/02/21 02:56 02/02/21 02:56 Lab Results 02/02/21 02/02/21 02/02/21 Range/Units 02:56 02:56 02:56 WBC 11.4 H (3.8-10.6) k/uL RBC 4.94 (3.80-5.40) m/uL Hgb 14.6 (11.4-16.0) gm/dL Hct 43.0 (34.0-46.0) % MCV 87.0 (80.0-100.0) fL MCH 29.6 (25.0-35.0) pg MCHC 34.0 (31.0-37.0) g/dL RDW 13.7 (11.5-15.5) % Plt Count 375 (150-450) k/uL MPV 6.7 Neutrophils % 74 % Lymphocytes % 16 % Monocytes % 6 % Eosinophils % 1 % Basophils % 0 % Neutrophils # 8.5 H (1.3-7.7) k/uL Lymphocytes # 1.9 (1.0-4.8) k/uL Monocytes # 0.7 (0-1.0) k/uL Eosinophils # 0.1 (0-0.7) k/uL Basophils # 0.0 (0-0.2) k/uL Sodium 137 (137-145) mmol/L Potassium 4.4 (3.5-5.1) mmol/L Chloride 107 (98-107) mmol/L Carbon Dioxide 18 L (22-30) mmol/L Anion Gap 12 mmol/L BUN 9 (7-17) mg/dL Creatinine 0.67 (0.52-1.04) mg/dL Est GFR (CKD-EPI)AfAm >90 (>60 ml/min/1.73 sqM) Est GFR (CKD-EPI)NonAf >90 (>60 ml/min/1.73 sqM) Glucose 96 (74-99) mg/dL Plasma Lactic Acid Frank 1.4 (0.7-2.0) mmol/L Calcium 9.6 (8.4-10.2) mg/dL Total Bilirubin 0.4 (0.2-1.3) mg/dL AST 18 (14-36) U/L ALT 17 (4-34) U/L Alkaline Phosphatase 123 (38-126) U/L Total Protein 7.5 (6.3-8.2) g/dL Albumin 4.5 (3.5-5.0) g/dL Urine Color Urine Appearance (Clear) Urine pH (5.0-8.0) Ur Specific [place] (1.001-1.035) Urine Protein (Negative) Urine Glucose (UA) (Negative) Urine Ketones (Negative) Urine Blood (Negative) Urine Nitrite (Negative) Urine Bilirubin (Negative) Urine Urobilinogen (<2.0) mg/dL Ur Leukocyte Esterase (Negative) Coronavirus (PCR) (Not Detectd) 02/02/21 02/02/21 Range/Units 02:56 03:28 WBC (3.8-10.6) k/uL RBC (3.80-5.40) m/uL Hgb (11.4-16.0) gm/dL Hct (34.0-46.0) % MCV (80.0-100.0) fL MCH (25.0-35.0) pg MCHC (31.0-37.0) g/dL RDW (11.5-15.5) % Plt Count (150-450) k/uL MPV Neutrophils % % Lymphocytes % % Monocytes % % Eosinophils % % Basophils % % Neutrophils # (1.3-7.7) k/uL Lymphocytes # (1.0-4.8) k/uL Monocytes # (0-1.0) k/uL Eosinophils # (0-0.7) k/uL Basophils # (0-0.2) k/uL Sodium (137-145) mmol/L Potassium (3.5-5.1) mmol/L Chloride (98-107) mmol/L Carbon Dioxide (22-30) mmol/L Anion Gap mmol/L BUN (7-17) mg/dL Creatinine (0.52-1.04) mg/dL Est GFR (CKD-EPI)AfAm (>60 ml/min/1.73 sqM) Est GFR (CKD-EPI)NonAf (>60 ml/min/1.73 sqM) Glucose (74-99) mg/dL Plasma Lactic Acid Frank (0.7-2.0) mmol/L Calcium (8.4-10.2) mg/dL Total Bilirubin (0.2-1.3) mg/dL AST (14-36) U/L ALT (4-34) U/L Alkaline Phosphatase (38-126) U/L Total Protein (6.3-8.2) g/dL Albumin (3.5-5.0) g/dL Urine Color Light Yellow Urine Appearance Clear (Clear) Urine pH 5.5 (5.0-8.0) Ur Specific [place] 1.011 (1.001-1.035) Urine Protein Negative (Negative) Urine Glucose (UA) Negative (Negative) Urine Ketones Negative (Negative) Urine Blood Negative (Negative) Urine Nitrite Negative (Negative) Urine Bilirubin Negative (Negative) Urine Urobilinogen <2.0 (<2.0) mg/dL Ur Leukocyte Esterase Negative (Negative) Coronavirus (PCR) Not Detected (Not Detectd) - Radiology Data Radiology results: report reviewed, image reviewed The x-ray of the chest is obtained. Report was reviewed in its entirety. Impression by Dr. Keller shows mild right lung base as subsegmental atelectasis. Normal heart. Disposition Clinical Impression: Fever, Body aches Disposition: [facility] Condition: Serious Referrals: Karthikeyan Pedro MD [Primary Care Provider] - 1-2 days Decision to Admit Reason: Admit from EC Decision Date: 02/02/21 Decision Time: 04:49
[2021-02-02 04:41] LABS: Appearance,Urine Clear (Clear); Bilirubin,Urine Negative (Negative); Blood,Urine Negative (Negative); Color,Urine Light Yellow; Glucose,Urine (UA) Negative (Negative); Ketones,Urine Negative (Negative); Leukocyte Esterase,Urine Negative (Negative); Nitrite,Urine Negative (Negative); PH, Urine 5.5 (5.0-8.0); Protein,Urine Negative (Negative); Specific Gravity,Urine 1.011 (1.001-1.035); Urobilinogen,Urine <2.0 mg/dL (<2.0)
[2021-02-02 05:14] VITALS: BP 127/77; PULSE 85; RESP 18; TEMP 98.7
== END 2021-02-02 05:14 | disposition other institution (70) ==
LOC: EC 01:53
DX: R50.9 Fever, unspecified (principal); R52 Pain, unspecified; K21.9 Gastro-esophageal reflux disease without esophagitis; E03.9 Hypothyroidism, unspecified; Z79.82 Long term (current) use of aspirin; Z86.711 Personal history of pulmonary embolism; Z86.718 Personal history of other venous thrombosis and embolism; Z90.49 Acquired absence of other specified parts of digestive tract; Z79.890 Hormone replacement therapy; Z88.8 Allergy status to other drugs, medicaments and biological substances
CPT/HCPCS: 99285 ×2; 96361 ×2; 96375 ×2; 96376 ×2; 96374 ×2; 36415; 80053; 83605; 85025; 81003; 87040; 87077; 87186; 87635; 71045; J1200; J2405; J1170

== ENCOUNTER 2021-02-11 22:26 | Emergency (ER) | payer BC ==
[2021-02-11 22:55] VITALS: BP 125/81; PULSE 108; RESP 20; TEMP 100.1
[2021-02-12] MEDS ORDERED: GELATIN SPONGE,ABSORB (LARGE) 1 EACH SPONGE TOPICAL STA ×2 (00:46→03:05)
--- NOTE | 2021-02-12 00:52 | ED ---
Recheck HPI - General Source: patient Mode of arrival: ambulatory Limitations: no limitations <Paula Marshall - Last Filed: 02/12/21 01:19> <Errol Tavarez - Last Filed: 02/12/21 03:07> - General Chief Complaint: Recheck/Abnormal Lab/Rx Stated Complaint: bleeding from pic line Time Seen by Provider: 02/11/21 23:03 - History of Present Illness Initial Comments: 40 year-old female patient presents to the emergency department for evaluation of bleeding from PICC line insertion site. It was inserted yesterday for IV antibiotics. States today it started bleeding and they were unable to get it to stop. She does take Arixtra for history of DVT specifically related to PICC line. She reports intermittent fevers. Patient denies any recent cough, shortness of breath, chest pain, abdominal pain, nausea, vomiting, diarrhea, constipation, back pain, numbness, tingling, dizziness, weakness, hematuria, dysuria, urinary urgency, urinary frequency, headache, visual changes, or any other complaints. (Paula Marshall) - Related Data Home Medications Medication Instructions Recorded Confirmed Montelukast Chew [Singulair chew] 10 mg PO DAILY 02/02/18 10/17/20 Prucalopride Succinate [Motegrity] 2 mg PO DAILY 01/14/19 10/17/20 oxyCODONE HCL [oxyCODONE HCL (IR)] 10 mg PO Q8H PRN 04/20/19 10/17/20 Linaclotide [Linzess] 290 mcg PO DAILY 05/24/19 10/17/20 Tegaserod Hydrogen Maleate 6 mg PO AC-BID 05/24/19 10/17/20 [Zelnorm] Lansoprazole 30 mg PO BID 08/27/19 10/17/20 Levothyroxine Sodium [Synthroid] 100 mcg PO DAILY 10/04/19 10/17/20 SUMAtriptan SUCCINATE [Imitrex] 100 mg PO DAILY PRN 05/20/20 10/17/20 Scopolamine 1.5MG/72Hr Patch 1 patch TRANSDERM Q72H PRN 05/25/20 10/17/20 [TransDerm Scop] Enoxaparin [Lovenox] 80 mg SQ Q12H 09/08/20 10/17/20 Topiramate [Trokendi Xr] 50 mg PO DAILY 10/07/20 10/17/20 Previous Rx's Medication Instructions Recorded Aspirin 81 mg PO DAILY 30 Days chewable 10/16/19 Allergies Allergy/AdvReac Type Severity Reaction Status Date / Time metoclopramide [From Reglan] AdvReac Mild jittery Verified 02/11/21 22:51 prochlorperazine AdvReac Mild JITTERY Verified 02/11/21 22:51 [From Compazine] Review of Systems ROS Other: All systems not noted in ROS Statement are negative. <Paula Marshall - Last Filed: 02/12/21 01:19> ROS Other: All systems not noted in ROS Statement are negative. <Errol Tavarez - Last Filed: 02/12/21 03:07> ROS Statement: Those systems with pertinent positive or pertinent negative responses have been documented in the HPI. Past Medical History Past Medical History: Deep Vein Thrombosis (DVT), GERD/Reflux, Pulmonary Embolus (PE), Thyroid Disorder Additional Past Medical History / Comment(s): Idiopathic gastroparesis, takes little in orally-has J tube for feedings and gastric stimulator- chronic abdominal pain, R pulmonary embolism 5-2017, dvt R upper extremity 2018, pancreatitis once in 2018-thought stone somewhere, hypothyroid, chronic anemia, sinus problems, migraine. 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 Mother Family Medical History: No Reported History Additional Family Medical History / Comment(s): Mother is 58yrs old. <Paula Marshall - Last Filed: 02/12/21 01:19> General Exam Limitations: no limitations General appearance: alert, in no apparent distress, other (This is a well- developed, well-nourished adult female patient in no acute distress.) Respiratory exam: Present: normal lung sounds bilaterally. Absent: respiratory distress, wheezes, rales, rhonchi, stridor Cardiovascular Exam: Present: regular rate, normal rhythm, normal heart sounds. Absent: systolic murmur, diastolic murmur, rubs, gallop, clicks Extremities exam: Present: full ROM, normal capillary refill, other (Bleeding from right arm picc line insertion site. Bright red blood. ). Absent: normal inspection, tenderness, pedal edema, joint swelling, calf tenderness <Paula Marshall - Last Filed: 02/12/21 01:19> Course <Paula Marshall - Last Filed: 02/12/21 01:19> Vital Signs 02/11/21 22:52 Temperature 100.1 F H Pulse Rate 108 H Respiratory 20 Rate Blood Pressure 125/81 O2 Sat by Pulse 98 Oximetry - Reevaluation(s) Reevaluation #1: 02/12/21 00:50 Direct pressure dressing was applied for approximately one hour. This was removed and bleeding restarted. Case discussed with my attending Dr. Finch. Plan is to apply gel foam around the site, will reapply pressure dressing and monitor. (Paula Marshall) Medical Decision Making <Paula Marshall - Last Filed: 02/12/21 01:19> <Errol Tavarez P - Last Filed: 02/12/21 03:07> - Medical Decision Making 40-year-old female patient presented to the emergency department this evening for evaluation of bleeding from her PICC line insertion site. PICC line was placed yesterday. Physical examination did reveal slow oozing of bright red blood from the insertion site. Blood pressure is normal. Patient denies any dizziness or fainting. Care will be handed over to my attending Dr. Finch at 0120. (Paula Marshall) Site re-evaluated. No bleeding after gelfoam applied. Patient can be discharged home and will change dressing tomorrow. (Errol Tavarez) Disposition <Paula Marshall - Last Filed: 02/12/21 01:19> Is patient prescribed a controlled substance at d/c from ED?: No Time of Disposition: 03:06 <Errol Tavarez - Last Filed: 02/12/21 03:07> Clinical Impression: Bleeding from PICC line Disposition: HOME SELF-CARE Condition: Good Instructions (If sedation given, give patient instructions): How to Flush Your PICC or Midline Catheter (ED) Additional Instructions: Please follow up with primary care in 1-2 days. Return to the ER for any worsening symptoms. Referrals: Karthikeyan Pedro MD [Primary Care Provider] - 1-2 days
== END 2021-02-12 03:16 | disposition home or self-care (01) ==
LOC: EC 22:26
DX: T82.838A Hemorrhage due to vascular prosthetic devices, implants and grafts, initial encounter (principal); Z88.8 Allergy status to other drugs, medicaments and biological substances; K21.9 Gastro-esophageal reflux disease without esophagitis; Z79.899 Other long term (current) drug therapy; Z86.718 Personal history of other venous thrombosis and embolism; Z86.711 Personal history of pulmonary embolism; Z79.890 Hormone replacement therapy; E03.9 Hypothyroidism, unspecified
CPT/HCPCS: 99283

== ENCOUNTER 2021-02-16 09:33 | Emergency (ER) | payer BC ==
[2021-02-16 11:23] VITALS: RESP 18; TEMP 97.5
--- NOTE | 2021-02-16 13:17 | ED ---
General Adult HPI - General Chief complaint: Extremity Injury, Upper Stated complaint: . PICC line Time Seen by Provider: 02/16/21 12:27 Source: patient, family, RN notes reviewed Mode of arrival: ambulatory Limitations: no limitations - History of Present Illness Initial comments: 32-year-old female presents to the emergency department accompanied by her spouse, for evaluation of right upper arm pain. Patient states she had a PICC placed 2 days ago and had to go off of her blood thinning medicines due to continuous bleeding at the PICC line insertion site. The PICC line was placed for antibiotic therapy related to an infected port that was removed. States she resumed taking her blood thinning medicines today, however has developed pain and burning discomfort in the right upper arm that she says is similar to previous episodes of DVT. Patient denies fever, chills, dizziness, chest pain, shortness of breath, difficulty breathing, and loss of sensation distal to painful area. - Related Data Home Medications Medication Instructions Recorded Confirmed Montelukast Chew [Singulair chew] 10 mg PO DAILY 02/02/18 10/17/20 Prucalopride Succinate [Motegrity] 2 mg PO DAILY 01/14/19 10/17/20 oxyCODONE HCL [oxyCODONE HCL (IR)] 10 mg PO Q8H PRN 04/20/19 10/17/20 Linaclotide [Linzess] 290 mcg PO DAILY 05/24/19 10/17/20 Tegaserod Hydrogen Maleate 6 mg PO AC-BID 05/24/19 10/17/20 [Zelnorm] Lansoprazole 30 mg PO BID 08/27/19 10/17/20 Levothyroxine Sodium [Synthroid] 100 mcg PO DAILY 10/04/19 10/17/20 SUMAtriptan SUCCINATE [Imitrex] 100 mg PO DAILY PRN 05/20/20 10/17/20 Scopolamine 1.5MG/72Hr Patch 1 patch TRANSDERM Q72H PRN 05/25/20 10/17/20 [TransDerm Scop] Enoxaparin [Lovenox] 80 mg SQ Q12H 09/08/20 10/17/20 Topiramate [Trokendi Xr] 50 mg PO DAILY 10/07/20 10/17/20 Previous Rx's Medication Instructions Recorded Aspirin 81 mg PO DAILY 30 Days chewable 10/16/19 Allergies Allergy/AdvReac Type Severity Reaction Status Date / Time metoclopramide [From Reglan] AdvReac Mild jittery Verified 02/16/21 11:22 prochlorperazine AdvReac Mild JITTERY Verified 02/16/21 11:22 [From Compazine] Review of Systems ROS Statement: Those systems with pertinent positive or pertinent negative responses have been documented in the HPI. ROS Other: All systems not noted in ROS Statement are negative. Past Medical History Past Medical History: Deep Vein Thrombosis (DVT), GERD/Reflux, Pulmonary Embolus (PE), Thyroid Disorder Additional Past Medical History / Comment(s): Idiopathic gastroparesis, takes little in orally-has J tube for feedings and gastric stimulator- chronic abdominal pain, R pulmonary embolism -2017, dvt R upper extremity 2018, pancreatitis once in 2018-thought stone somewhere, hypothyroid, chronic anemia, sinus problems, migraine. 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 Mother Family Medical History: No Reported History Additional Family Medical History / Comment(s): Mother is 58yrs old. General Exam Limitations: no limitations (Well-developed, well-nourished female in mild distress. Initial temperature 97.5, pulse 88, respirations 18, blood pressure 125/84, pulse ox 99% on room air.) General appearance: alert, in no apparent distress Respiratory exam: Present: normal lung sounds bilaterally. Absent: respiratory distress, wheezes, rales, rhonchi, stridor Cardiovascular Exam: Present: regular rate, normal rhythm, normal heart sounds. Absent: systolic murmur, diastolic murmur, rubs, gallop, clicks Right Upper Arm exam: Present: tenderness, swelling, ecchymosis, other (PICC line present in the right upper extremity. No bleeding seen at this time. Resolving contusions noted around insertion site and distally. Mild erythema noted around the border of the tape. Tenderness upon palpation of the right upper arm.) Vascular: Present: normal capillary refill, radial pulse, brachial pulse, ulnar pulse. Absent: Pallo Neurological exam: Present: alert, oriented X3, CN II-XII intact Psychiatric exam: Present: normal affect, normal mood Skin exam: Present: warm, dry Course Vital Signs 02/16/21 02/16/21 11:19 15:42 Temperature 97.5 F L 97.5 F L Pulse Rate 88 92 Respiratory 18 18 Rate Blood Pressure 125/84 130/75 O2 Sat by Pulse 99 99 Oximetry - Reevaluation(s) Reevaluation #1: 02/16/21 13:00 Patient in ultrasound. 02/16/21 14:57 Spoke with MARILYN Garcia who will contact Dr. Meng and call back with further direction. 02/16/21 15:25 Update from MARILYN Garcia: Continue home medications, do not remove PICC line, follow-up with Dr. Meng within the next week. Medical Decision Making - Medical Decision Making 40-year-old female with a history of DVT and extensive GI complications presents to the emergency department for evaluation of pain to the right upper extremity at the site of her PICC line. Upon exam, neurovascular status is intact and there is no active bleeding from the PICC line, which was a previous issue, and patient complains of pain distal in superior to the insertion site. Patient's PICC line with placed at [place] on February 10, then she developed bleeding on the and acquired an ER visit at that time. Patient was instructed to hold her Arixtra and aspirin for 2 days. States she resumed taking both on Tuesday the , then developed this pain in her upper arm this morning. Doppler study of the right upper extremity shows DVT involving the right brachial vein. The patient's PICC line is seen coursing through the clot and the thrombus is in completely occlusive. These results were reviewed with patient's hematology nurse practitioner, Radha, who spoke with Dr. Meng. Per his instructions, PICC line is to remain in place and patient is to stay on her current medication regimen. Patient will be discharged home to follow-up with hematology sometime this week. Return parameters were discussed in detail. Patient verbalizes understanding and agrees with this plan. This patient's care is discussed with my attending Dr. Hackett. - Radiology Data Radiology results: report reviewed Venous Doppler of the right upper extremity was obtained. Report was reviewed in its entirety. Impression per Dr. Clark is exam positive for DVT involving the right brachial vein. The patient's PICC line is seen coursing through the clot and the thrombus is in completely occlusive. Disposition Clinical Impression: Deep vein thrombosis, upper right extremity Disposition: HOME SELF-CARE Condition: Stable Instructions (If sedation given, give patient instructions): Deep Vein Thrombosis (ED) Additional Instructions: Continue home medications per your previous regimen. PICC line will remain in place. Please call Dr. Meng's office to be seen within a week. Return to the emergency department with any new, worsening, or concerning symptoms. Is patient prescribed a controlled substance at d/c from ED?: No Referrals: Karthikeyan Pedro MD [Primary Care Provider] - 1-2 days Time of Disposition: 15:28
[2021-02-16] MEDS ORDERED: HYDROmorphone 1 MG/ML 1 ML SYRINGE IVP STA (13:27)
--- NOTE | 2021-02-16 13:33 | US ---
EXAMINATION TYPE: US venous doppler duplex UE RT DATE OF EXAM: 02/16/2021 COMPARISON: None CLINICAL HISTORY: 40-year-old female swelling. SIDE PERFORMED: Right TECHNIQUE: Grayscale, color doppler, spectral doppler imaging performed of the deep veins of the upp er extremities. FINDINGS: Right Arm: Positive for DVT in right brachial vein. There appears to be flow around the PICC line. Ce phalic vein not seen. IMPRESSION: Exam positive for DVT involving the right brachial vein. The patient's PICC line is seen coursing thr ough the clot and the thrombus is incompletely occlusive.
[2021-02-16 15:47] VITALS: BP 130/75; PULSE 92
== END 2021-02-16 15:42 | disposition home or self-care (01) ==
LOC: EC 09:33
DX: I82.621 Acute embolism and thrombosis of deep veins of right upper extremity (principal); K21.9 Gastro-esophageal reflux disease without esophagitis; E03.9 Hypothyroidism, unspecified; G43.909 Migraine, unspecified, not intractable, without status migrainosus; Z79.890 Hormone replacement therapy; Z79.899 Other long term (current) drug therapy; Z86.711 Personal history of pulmonary embolism; Z88.8 Allergy status to other drugs, medicaments and biological substances
CPT/HCPCS: 93971; 99283; 96374; J1170

== ENCOUNTER 2021-03-02 14:35 | Emergency (ER) | payer BC ==
[2021-03-02 15:13] VITALS: RESP 18
--- NOTE | 2021-03-02 17:13 | XR ---
EXAMINATION TYPE: XR chest 2V DATE OF EXAM: 03/02/2021 COMPARISON: 02/02/2021 INDICATION: Difficulty breathing TECHNIQUE: Frontal and lateral views of the chest are obtained. FINDINGS: The heart size is normal. The pulmonary vasculature is normal. The lungs are clear. PICC line is entering on the right with the tip in the proximal superior vena cava region. Radiopaque foreign bodies are along the anterior abdominal wall. IMPRESSION: 1. No acute pulmonary process.
[2021-03-02 22:32] LABS: Basophils # (A) 0.1 k/uL (0-0.2); Basophils % (A) 1 %; Eosinophils # (A) 0.2 k/uL (0-0.7); Eosinophils % (A) 2 %; HCT 41.7 % (34.0-46.0); HGB 14.4 gm/dL (11.4-16.0); Lymphocytes # (A) 2.6 k/uL (1.0-4.8); Lymphocytes % (A) 28 %; MCH 29.3 pg (25.0-35.0); MCHC 34.6 g/dL (31.0-37.0); MCV 84.5 fL (80.0-100.0); Mean Platelet Volume 7.1; Monocytes # (A) 0.5 k/uL (0-1.0); Monocytes % (A) 5 %; Neutrophils # (A) 5.8 k/uL (1.3-7.7); Neutrophils % (A) 63 %; Platelet Count 318 k/uL (150-450); RBC 4.93 m/uL (3.80-5.40); WBC 9.3 k/uL (3.8-10.6)
[2021-03-02 22:45] LABS: ALT 16 U/L (4-34); AST 17 U/L (14-36); African American GFR (CKD) >90 (>60 ml/min/1.73 sqM); Albumin 4.4 g/dL (3.5-5.0); Alkaline Phosphatase 145 U/L (38-126); Anion Gap 10 mmol/L; Blood Urea Nitrogen 13 mg/dL (7-17); Carbon Dioxide 19 mmol/L (22-30); Chloride 109 mmol/L (98-107); Glucose 88 mg/dL (74-99); Non-African American GFR(CKD) 80 (>60 ml/min/1.73 sqM); Sodium 138 mmol/L (137-145); Total Bilirubin 0.3 mg/dL (0.2-1.3); Total Protein 7.1 g/dL (6.3-8.2)
--- NOTE | 2021-03-02 22:45 | US ---
EXAMINATION TYPE: US venous doppler duplex UE RT DATE OF EXAM: 03/02/2021 COMPARISON: US CLINICAL HISTORY: known DVT; worsening symptoms. . Known DVT, worsening symptoms. SIDE PERFORMED: Right Right Arm: Limited exam due to anatomical vessel variation. Minimal internal echoes and slight colo r defect are seen surrounding PICC as seen on prior exam. However, per PA Oliver and as it appears o n ultrasound, PICC is in place within the basilic vein. Cephalic vein not seen. Lower brachial vein s unable to evaluate due to bandage. IMPRESSION: There is some superficial thrombus around the PICC line catheter. No evidence of deep vein thrombosis . No adverse change compared to old exam.
[2021-03-02 23:01] LABS: Partial Thromboplastin Time 31.1 sec (22.0-30.0)
[2021-03-02] MEDS ORDERED: ONDANSETRON 4 MG/2 ML VIAL IVP STA (23:20)
[2021-03-02] MEDS ORDERED: HYDROmorphone 1 MG/ML 1 ML SYRINGE IVP STA (23:20)
--- NOTE | 2021-03-02 23:21 | ED ---
General Adult HPI - General Chief complaint: Shortness of Breath Stated complaint: DVT+, increased SOB & arm tingling Time Seen by Provider: 03/02/21 21:20 Source: patient, RN notes reviewed Mode of arrival: wheelchair Limitations: no limitations - History of Present Illness Initial comments: Patient is a 40-year-old female that presents to the emergency department complaining of right arm pain. She does have a port in that arm. She notes that she does have a history of DVT. She notes she is on chronic anticoagulation. She denied any other issues or complaint patientis a chronic issue but it seems to gotten worse over the past few days. Patient denied any other issues or complaints. She denied chest pain short of breath headache nausea vomiting diarrhea constipation fever fatigue chills. - Related Data Home Medications Medication Instructions Recorded Confirmed Montelukast Chew [Singulair chew] 10 mg PO DAILY 02/02/18 03/02/21 Prucalopride Succinate [Motegrity] 2 mg PO DAILY 01/14/19 03/02/21 oxyCODONE HCL [oxyCODONE HCL (IR)] 10 mg PO Q8H PRN 04/20/19 03/02/21 Linaclotide [Linzess] 290 mcg PO DAILY 05/24/19 03/02/21 Tegaserod Hydrogen Maleate 6 mg PO AC-BID 05/24/19 03/02/21 [Zelnorm] Lansoprazole 30 mg PO BID 08/27/19 03/02/21 Levothyroxine Sodium [Synthroid] 100 mcg PO DAILY 10/04/19 03/02/21 SUMAtriptan SUCCINATE [Imitrex] 100 mg PO BID PRN 05/20/20 03/02/21 Scopolamine 1.5MG/72Hr Patch 1 patch TRANSDERM Q72H PRN 05/25/20 03/02/21 [TransDerm Scop] Topiramate [Trokendi Xr] 50 mg PO DAILY 10/07/20 03/02/21 Fondaparinux Sodium [Arixtra] 7.5 mg SQ DAILY 03/02/21 03/02/21 HYDROmorphone [Dilaudid] 4 mg PO Q8H PRN 03/02/21 03/02/21 Previous Rx's Medication Instructions Recorded Aspirin 81 mg PO DAILY 30 Days chewable 10/16/19 Allergies Allergy/AdvReac Type Severity Reaction Status Date / Time metoclopramide [From Reglan] AdvReac Mild jittery Verified 03/02/21 23:13 prochlorperazine AdvReac Mild JITTERY Verified 03/02/21 23:13 [From Compazine] Review of Systems ROS Statement: Those systems with pertinent positive or pertinent negative responses have been documented in the HPI. ROS Other: All systems not noted in ROS Statement are negative. Past Medical History Past Medical History: Deep Vein Thrombosis (DVT), GERD/Reflux, Pulmonary Embolus (PE), Thyroid Disorder Additional Past Medical History / Comment(s): Idiopathic gastroparesis, takes little in orally-has J tube for feedings and gastric stimulator- chronic abdominal pain, R pulmonary embolism 5-2017, dvt R upper extremity 2018, pancreatitis once in 2018-thought stone somewhere, hypothyroid, chronic anemia, sinus problems, migraine. 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 Mother Family Medical History: No Reported History Additional Family Medical History / Comment(s): Mother is 58yrs old. General Exam Limitations: no limitations General appearance: alert, in no apparent distress Head exam: Present: atraumatic, normocephalic, normal inspection Eye exam: Present: normal appearance, PERRL, EOMI. Absent: scleral icterus, conjunctival injection, periorbital swelling ENT exam: Present: normal exam, mucous membranes moist Neck exam: Present: normal inspection Respiratory exam: Present: normal lung sounds bilaterally. Absent: respiratory distress, wheezes, rales, rhonchi, stridor Cardiovascular Exam: Present: regular rate, normal rhythm, normal heart sounds. Absent: systolic murmur, diastolic murmur, rubs, gallop, clicks GI/Abdominal exam: Present: soft, normal bowel sounds. Absent: distended, tenderness, guarding, rebound, rigid Extremities exam: Present: normal inspection, full ROM, normal capillary refill, other (Right arm tenderness surrounding port). Absent: tenderness, pedal edema, joint swelling, calf tenderness Neurological exam: Present: alert, oriented X3 Psychiatric exam: Present: normal affect, normal mood Skin exam: Present: warm, dry, intact, normal color. Absent: rash Course Vital Signs 03/02/21 03/02/21 03/02/21 15:10 21:59 22:06 Temperature 98.9 F Pulse Rate 101 H 74 Respiratory 18 18 18 Rate Blood Pressure 128/83 138/76 O2 Sat by Pulse 100 100 Oximetry Medical Decision Making - Medical Decision Making 40-year-old female complaining of right upper extremity pain, history of DVT around her port. Labs, ultrasound, chest x-ray ordered. Ultrasound shows no change from previous study. Case discussed with Dr. Boyd, patient discharge home with follow-up to primary care. - Lab Data Result diagrams: 03/02/21 22:11 03/02/21 22:11 Lab Results 03/02/21 03/02/21 03/02/21 Range/Units 22:11 22:11 22:11 WBC 9.3 (3.8-10.6) k/uL RBC 4.93 (3.80-5.40) m/uL Hgb 14.4 (11.4-16.0) gm/dL Hct 41.7 (34.0-46.0) % MCV 84.5 (80.0-100.0) fL MCH 29.3 (25.0-35.0) pg MCHC 34.6 (31.0-37.0) g/dL RDW 13.0 (11.5-15.5) % Plt Count 318 (150-450) k/uL MPV 7.1 Neutrophils % 63 % Lymphocytes % 28 % Monocytes % 5 % Eosinophils % 2 % Basophils % 1 % Neutrophils # 5.8 (1.3-7.7) k/uL Lymphocytes # 2.6 (1.0-4.8) k/uL Monocytes # 0.5 (0-1.0) k/uL Eosinophils # 0.2 (0-0.7) k/uL Basophils # 0.1 (0-0.2) k/uL PT 11.0 (9.0-12.0) sec INR 1.0 (<1.2) APTT 31.1 H (22.0-30.0) sec D-Dimer 0.23 (<0.60) mg/L FEU Sodium 138 (137-145) mmol/L Potassium 4.0 (3.5-5.1) mmol/L Chloride 109 H (98-107) mmol/L Carbon Dioxide 19 L (22-30) mmol/L Anion Gap 10 mmol/L BUN 13 (7-17) mg/dL Creatinine 0.92 (0.52-1.04) mg/dL Est GFR (CKD-EPI)AfAm >90 (>60 ml/min/1.73 sqM) Est GFR (CKD-EPI)NonAf 80 (>60 ml/min/1.73 sqM) Glucose 88 (74-99) mg/dL Plasma Lactic Acid Frank (0.7-2.0) mmol/L Calcium 10.0 (8.4-10.2) mg/dL Total Bilirubin 0.3 (0.2-1.3) mg/dL AST 17 (14-36) U/L ALT 16 (4-34) U/L Alkaline Phosphatase 145 H (38-126) U/L Total Protein 7.1 (6.3-8.2) g/dL Albumin 4.4 (3.5-5.0) g/dL 03/02/21 Range/Units 22:11 WBC (3.8-10.6) k/uL RBC (3.80-5.40) m/uL Hgb (11.4-16.0) gm/dL Hct (34.0-46.0) % MCV (80.0-100.0) fL MCH (25.0-35.0) pg MCHC (31.0-37.0) g/dL RDW (11.5-15.5) % Plt Count (150-450) k/uL MPV Neutrophils % % Lymphocytes % % Monocytes % % Eosinophils % % Basophils % % Neutrophils # (1.3-7.7) k/uL Lymphocytes # (1.0-4.8) k/uL Monocytes # (0-1.0) k/uL Eosinophils # (0-0.7) k/uL Basophils # (0-0.2) k/uL PT (9.0-12.0) sec INR (<1.2) APTT (22.0-30.0) sec D-Dimer (<0.60) mg/L FEU Sodium (137-145) mmol/L Potassium (3.5-5.1) mmol/L Chloride (98-107) mmol/L Carbon Dioxide (22-30) mmol/L Anion Gap mmol/L BUN (7-17) mg/dL Creatinine (0.52-1.04) mg/dL Est GFR (CKD-EPI)AfAm (>60 ml/min/1.73 sqM) Est GFR (CKD-EPI)NonAf (>60 ml/min/1.73 sqM) Glucose (74-99) mg/dL Plasma Lactic Acid Frank 0.8 (0.7-2.0) mmol/L Calcium (8.4-10.2) mg/dL Total Bilirubin (0.2-1.3) mg/dL AST (14-36) U/L ALT (4-34) U/L Alkaline Phosphatase (38-126) U/L Total Protein (6.3-8.2) g/dL Albumin (3.5-5.0) g/dL - Radiology Data Radiology results: report reviewed, image reviewed Ultrasound right upper extremity: There is some superficial thrombus around the PICC line catheter. No evidence of deep vein thrombosis. No adverse change compared to old exam. Chest x-ray: No acute pulmonary process. Disposition Clinical Impression: Deep vein thrombosis, upper right extremity, Thrombophlebitis of right upper extremity Disposition: HOME SELF-CARE Condition: Stable Additional Instructions: Please return to the Emergency Department if symptoms worsen or any other concerns. Follow-up with primary care 1-2 days. Continue take at home medications as prescribed. Is patient prescribed a controlled substance at d/c from ED?: No Referrals: Karthikeyan Pedro MD [Primary Care Provider] - 1-2 days Time of Disposition: 23:21
[2021-03-02 23:33] VITALS: BP 116/79; PULSE 85; TEMP 98.3
== END 2021-03-02 23:35 | disposition home or self-care (01) ==
LOC: EC 14:35
DX: I82.621 Acute embolism and thrombosis of deep veins of right upper extremity (principal); I80.8 Phlebitis and thrombophlebitis of other sites; K21.9 Gastro-esophageal reflux disease without esophagitis; E07.9 Disorder of thyroid, unspecified; Z86.711 Personal history of pulmonary embolism; Z86.718 Personal history of other venous thrombosis and embolism; Z79.899 Other long term (current) drug therapy
CPT/HCPCS: 36415; 93005; 85379; 80053; 83605; 84484; 85025; 85610; 85730; 71046; 93971; 99285; 96374; 96375; J2405; J1170

== ENCOUNTER 2021-03-04 12:50 | Emergency (ER) | payer BC ==
[2021-03-04 13:42] VITALS: TEMP 97.8
--- NOTE | 2021-03-04 14:27 | US ---
EXAMINATION TYPE: US venous doppler duplex LE RT DATE OF EXAM: 03/04/2021 2:16 PM COMPARISON: NONE CLINICAL HISTORY: R/O DVT. Right calf pain for the past day. SIDE PERFORMED: Right TECHNIQUE: The lower extremity deep venous system is examined utilizing real time linear array sonog cedrick with graded compression, doppler sonography and color-flow sonography. VESSELS IMAGED: Common Femoral Vein Deep Femoral Vein Greater Saphenous Vein * Femoral Vein Popliteal Vein Small Saphenous Vein * Proximal Calf Veins (* superficial vessels) Right Leg: Negative for DVT IMPRESSION: No evidence of DVT at this time.
[2021-03-04] MEDS ORDERED: HYDROcodone/APAP 7.5-325MG 1 EACH TAB PO ONE (16:45)
--- NOTE | 2021-03-04 16:46 | ED ---
Extremity Problem HPI - General Chief complaint: Extremity Problem,Nontraumatic Stated complaint: rt foot pain, no injury Time Seen by Provider: 03/04/21 16:24 Source: patient Mode of arrival: ambulatory Limitations: no limitations - History of Present Illness Initial comments: Patient is a 32-year-old female presenting to the emergency Department with complaints of pain in her right foot that started last night. She denies any injuries or trauma, no falls. She denies any previous surgeries or injuries to her right foot. She does have history of DVT and her right upper arm, she is on thinners. She was concerned for a another DVT. She denies any redness, no swelling. She denies any fevers or chills, no cough or shortness of breath. Patient has no further complaints today. Her vital signs are stable upon arrival. - Related Data Home Medications Medication Instructions Recorded Confirmed Montelukast Chew [Singulair chew] 10 mg PO DAILY 02/02/18 03/02/21 Prucalopride Succinate [Motegrity] 2 mg PO DAILY 01/14/19 03/02/21 oxyCODONE HCL [oxyCODONE HCL (IR)] 10 mg PO Q8H PRN 04/20/19 03/02/21 Linaclotide [Linzess] 290 mcg PO DAILY 05/24/19 03/02/21 Tegaserod Hydrogen Maleate 6 mg PO AC-BID 05/24/19 03/02/21 [Zelnorm] Lansoprazole 30 mg PO BID 08/27/19 03/02/21 Levothyroxine Sodium [Synthroid] 100 mcg PO DAILY 10/04/19 03/02/21 SUMAtriptan SUCCINATE [Imitrex] 100 mg PO BID PRN 05/20/20 03/02/21 Scopolamine 1.5MG/72Hr Patch 1 patch TRANSDERM Q72H PRN 05/25/20 03/02/21 [TransDerm Scop] Topiramate [Trokendi Xr] 50 mg PO DAILY 10/07/20 03/02/21 Fondaparinux Sodium [Arixtra] 7.5 mg SQ DAILY 03/02/21 03/02/21 HYDROmorphone [Dilaudid] 4 mg PO Q8H PRN 03/02/21 03/02/21 Promethazine 25mg/Ml 12.5 - 25 mg IV Q4H PRN 03/02/21 03/02/21 Zofran 4mg/2ml 4 - 8 mg IV TID PRN 03/02/21 03/02/21 Previous Rx's Medication Instructions Recorded Aspirin 81 mg PO DAILY 30 Days chewable 10/16/19 Allergies Allergy/AdvReac Type Severity Reaction Status Date / Time metoclopramide [From Reglan] AdvReac Mild jittery Verified 03/02/21 23:13 prochlorperazine AdvReac Mild JITTERY Verified 03/02/21 23:13 [From Compazine] Review of Systems ROS Statement: Those systems with pertinent positive or pertinent negative responses have been documented in the HPI. ROS Other: All systems not noted in ROS Statement are negative. Past Medical History Past Medical History: Deep Vein Thrombosis (DVT), GERD/Reflux, Pulmonary Embolus (PE), Thyroid Disorder Additional Past Medical History / Comment(s): Idiopathic gastroparesis, takes little in orally-has J tube for feedings and gastric stimulator- chronic abdominal pain, R pulmonary embolism -2017, dvt R upper extremity 2018, pancreatitis once in 2017-thought stone somewhere, hypothyroid, chronic anemia, sinus problems, migraine. 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 Mother Family Medical History: No Reported History Additional Family Medical History / Comment(s): Mother is 58yrs old. General Exam - General Exam Comments Initial Comments: GENERAL: Patient is well-developed and well-nourished. Patient is nontoxic and in no acute distress. HEAD: Atraumatic, normocephalic. ENT: Moist mucous membranes. LUNGS: Unlabored respirations. Breath sounds clear to auscultation bilaterally and equal. No wheezes rales or rhonchi. HEART: Regular rate and rhythm without murmurs, rubs or gallops. MUSCULOSKELETAL: Patient has minimal pain of the right lateral malleolus. There is no swelling, no erythema, neurovascularly intact. No clubbing or cyanosis. NEUROLOGICAL: Patient is alert and oriented x 3. SKIN: Warm, Dry, normal turgor, no rashes or lesions noted. Limitations: no limitations Course Vital Signs 03/04/21 03/04/21 13:36 17:05 Temperature 97.8 F Pulse Rate 86 90 Respiratory 19 18 Rate Blood Pressure 109/72 136/78 O2 Sat by Pulse 100 100 Oximetry Medical Decision Making - Medical Decision Making Patient is a 40-year-old female here with right foot pain, concerns for possible DVT. She does have history of DVTs, she is on thinners. No acute trauma, no redness, the ankle appears normal, neurovascular intact. I discussed with karina jacob that she can try ice to the area, anti-inflammatory such as ibuprofen or Aleve. I recommended following up with her PCP. She is agreeable to this plan of care. She is requesting pain medication here. Did give her a dose of [place]. Disposition Clinical Impression: Right foot pain Disposition: HOME SELF-CARE Condition: Stable Instructions (If sedation given, give patient instructions): Arthralgia (ED) Additional Instructions: Please return to the Emergency Department if symptoms worsen or any other concerns. Recommend ice to the area, ibuprofen or Aleve for discomfort. If symptoms persist, follow-up with your primary care physician. Is patient prescribed a controlled substance at d/c from ED?: No Referrals: Karthikeyan Pedro MD [Primary Care Provider] - 1-2 days Time of Disposition: 16:46
[2021-03-04 17:07] VITALS: BP 136/78; PULSE 90; RESP 18
== END 2021-03-04 17:12 | disposition home or self-care (01) ==
LOC: EC 12:50
DX: M79.671 Pain in right foot (principal); K21.9 Gastro-esophageal reflux disease without esophagitis; E07.9 Disorder of thyroid, unspecified; Z79.899 Other long term (current) drug therapy; Z88.8 Allergy status to other drugs, medicaments and biological substances; Z79.890 Hormone replacement therapy; Z86.711 Personal history of pulmonary embolism; Z86.718 Personal history of other venous thrombosis and embolism
CPT/HCPCS: 99283

== ENCOUNTER → 2021-03-06 | Day surgery (SDC) | payer BC ==
[2021-03-05 11:12] VITALS: BMI 30.1
[~2021-03-06] MED LIST: .fentaNYL (PF) 50 MCG/ML 2 ML AMP ONE; ACETAMINOPHEN TAB 500 MG TAB PO PRN; BUPIVACAINE (PF) 0.25% 30 ML VIAL SQ ONE; DEXAMETHASONE SOD PHOSPHATE 4 MG/ML 1 ML VIAL IV ONE; HEPARIN SODIUM,PORCINE/PF 5,000 UNIT/0.5 ML SYRINGE SQ PRN; HYDROcodone/APAP 5-325MG 1 EACH TAB PO PRN; LACTATED RINGERS 1,000 ML IV SCH; LIDOCAINE 1% INJ 10MG/ML (20 ML MDV) ONE; MIDAZOLAM 2 MG/2 ML VIAL IV PRN; MIDAZOLAM 2 MG/2 ML VIAL ONE; NALOXONE 0.4 MG/ML 1 ML VIAL IV PRN; ONDANSETRON 4 MG/2 ML VIAL IVP ONE; PROPOFOL 10 MG/ML 20 ML VIAL IV ONE; Pre Op ABX Message 1 EACH MISC MISCELLANE ONE; SCOPOLAMINE 1.5MG/72HR PATCH TRANSDERM ONE; SODIUM CHLORIDE 0.9% 100 ML with ceFAZolin 2,000 MG IV ONE; SUCCINYLCHOLINE CHLORIDE 100 MG/5 ML SYR IV ONE
--- NOTE | 2021-03-06 09:52 | P.GSHP ---
History of Present Illness H&P Date: 03/06/21 Chief Complaint: Poor IV access 40-year-old female with multiple medical issues. Patient is on home TPN for severe gastroparesis. She has had multiple access sites in the past. She has had a Port-A-Cath on each side of her chest. She had a right-sided Port-A-Cath removed about 1 month ago. This became infected and that was the reason for removal. She currently has a right brachial PICC line in place. Here today for Port-A-Cath placement. Past Medical History Past Medical History: Deep Vein Thrombosis (DVT), GERD/Reflux, Pulmonary Embolus (PE), Thyroid Disorder Additional Past Medical History / Comment(s): Idiopathic gastroparesis, takes little in orally-has J tube for feedings and gastric stimulator- chronic abdominal pain, R pulmonary embolism -2017, dvt R upper extremity 2018, pancreatitis once in 2018-thought stone somewhere, hypothyroid, chronic anemia, sinus problems, migraines History of Any Multi-Drug Resistant Organisms: VRE Date of last positivie culture/infection: 08/01/18 MDRO Source:: VRE URINE Past Surgical History: Section, Cholecystectomy, Hernia Repair, Orthopedic Surgery, Tonsillectomy Additional Past Surgical History / Comment(s): Gastric pacer with removal in spring 2017, J tube, gastric stimulator, x3, 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 Mother Family Medical History: No Reported History Additional Family Medical History / Comment(s): Mother is 58yrs old. Medications and Allergies Home Medications Medication Instructions Recorded Confirmed Type Montelukast Chew [Singulair chew] 10 mg PO DAILY 02/02/18 03/05/21 History Prucalopride Succinate [Motegrity] 2 mg PO DAILY 01/14/19 03/05/21 History oxyCODONE HCL [oxyCODONE HCL (IR)] 10 mg PO Q8H PRN 04/20/19 03/05/21 History Linaclotide [Linzess] 290 mcg PO DAILY 05/24/19 03/05/21 History Tegaserod Hydrogen Maleate 6 mg PO AC-BID 05/24/19 03/05/21 History [Zelnorm] Lansoprazole 30 mg PO BID 08/27/19 03/05/21 History Levothyroxine Sodium [Synthroid] 100 mcg PO DAILY 10/04/19 03/05/21 History Aspirin 81 mg PO DAILY 30 Days chewable 10/16/19 03/05/21 Rx SUMAtriptan SUCCINATE [Imitrex] 100 mg PO BID PRN 05/20/20 03/05/21 History Scopolamine 1.5MG/72Hr Patch 1 patch TRANSDERM Q72H PRN 05/25/20 03/05/21 History [TransDerm Scop] Topiramate [Trokendi Xr] 50 mg PO DAILY 10/07/20 03/05/21 History Fondaparinux Sodium [Arixtra] 7.5 mg SQ DAILY 03/02/21 03/05/21 History Promethazine 25mg/Ml 12.5 - 25 mg IV Q4H PRN 03/02/21 03/05/21 History Zofran 4mg/2ml 4 - 8 mg IV TID PRN 03/02/21 03/05/21 History Allergies Allergy/AdvReac Type Severity Reaction Status Date / Time metoclopramide [From Reglan] AdvReac Mild jittery Verified 03/05/21 10:44 prochlorperazine AdvReac Mild JITTERY Verified 03/05/21 10:44 [From Compazine] Surgical - Exam Vital Signs Temp Pulse Resp BP Pulse Ox 96.8 F L 60 16 136/83 95 03/06/21 08:51 03/06/21 08:51 03/06/21 08:51 03/06/21 08:51 03/06/21 08:51 Physical exam: General: Well-developed, well-nourished HEENT: Normocephalic, sclerae nonicteric Abdomen: Nontender, nondistended Extremities: No edema Neuro: Alert and oriented Chest: Bilateral chest wall scars from previous port Assessment and Plan (1) Gastroparesis Narrative/Plan: 40-year-old female requiring Port-A-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 We'll proceed with Port-A-Cath placement at this time. Discussed that we would plan 8-Portuguese catheter on the left internal jugular site. Risks of bleeding, infection, DVT, pneumothorax, catheter malfunction, anesthesia related complications were discussed. The patient understands and wishes to proceed. Current Visit: No Status: Acute Code(s): K31.84 - GASTROPARESIS SNOMED Code(s): 663523005
--- NOTE | 2021-03-06 11:12 | P.OP ---
Date of Procedure: 03/06/21 Procedure(s) Performed: PREOPERATIVE DIAGNOSIS: Gastroparesis, poor IV access POSTOPERATIVE DIAGNOSIS: Same PROCEDURE: Port-A-Cath placement with fluoroscopic and ultrasound guidance SURGEON: Deann EBL: Minimal ANESTHESIA: General COMPLICATIONS: None OPERATIVE PROCEDURE: Patient was brought and placed on the operative table in the supine position. The patient was sedated per anesthesia that time. The chest and neck were prepped and draped in usual sterile fashion. The ultrasound probe was used to identify the location of the left internal jugular vein. The skin was localized with lidocaine. The Seldinger needle was advanced into the IJ under ultrasound guidance. The wire was advanced through the needle under fluoroscopic guidance into the superior vena cava. A port pocket was created in the left infraclavicular location slightly medial and slightly superior to the previous scar site. The 8-Maldivian catheter was tunneled from the wire entrance site to the port pocket. The port was then connected to the catheter. The dilator introducer was threaded over the guidewire. The guidewire and dilator were then removed. The catheter was advanced through the introducer and introducer was then removed. As I measured the catheter again on the outside of the chest wall I thought the catheter was a bit too long and I removed the distal 1 cm or so of the catheter. Upon removal of this catheter the tip should be at about the 2 cm hernán. The tip was seen to be in the right atrial junction via fluoroscopy. A picture of the radiograph showing the tip at the radial digital junction was taken. Port was flushed with both saline and a Hep-Lock solution. There was good flow both in and out of the port. The port was sutured in underlying tissues using 3-0 silk sutures. The subcutaneous tissues were reapproximated using 3-0 Vicryl sutures and the skin at both locations using 4-0 Monocryl sutures. Skin glue and sterile dressings then applied. DISPOSITION: Stable to recovery room
--- NOTE | 2021-03-06 11:24 | FL ---
EXAMINATION TYPE: FL guided central line placemt HISTORY: Fluoroscopy time Impression: 1. Fluoroscopy support provided to the referring physician.
[2021-03-06 11:36] VITALS: TEMP 97
[2021-03-06] MEDS: HYDROmorphone 0.5 MG/0.5 ML SYRINGE IVP PRN ×2 (11:39→11:46)
--- NOTE | 2021-03-06 11:53 | XR ---
EXAMINATION TYPE: XR chest 1V confirm line plcvt DATE OF EXAM: 03/06/2021 COMPARISON: 03/02/2021 HISTORY: Line placement TECHNIQUE: Single frontal view of the chest is obtained. FINDINGS: There is no focal air space opacity, pleural effusion, or pneumothorax seen. The cardiac silhouette size is within normal limits. The osseous structures are intact. Mediport catheter seen with the tip overlying the SVC. Surgical change in the upper abdomen on the left and right noted. IMPRESSION: No acute process.
[2021-03-06 12:34] VITALS: BP 127/73; PULSE 77; RESP 16
== END ==
LOC: OR 08:21
PROVIDERS: ATTEND Surgery
DX: K31.84 Gastroparesis (principal); K95.89 Other complications of other bariatric procedure; Y84.8 Other medical procedures as the cause of abnormal reaction of the patient, or of later complication, without mention of misadventure at the time of the procedure; K55.1 Chronic vascular disorders of intestine; D50.9 Iron deficiency anemia, unspecified; G89.29 Other chronic pain; E07.9 Disorder of thyroid, unspecified; Z86.718 Personal history of other venous thrombosis and embolism; D68.59 Other primary thrombophilia; K21.9 Gastro-esophageal reflux disease without esophagitis; Z79.899 Other long term (current) drug therapy; Z79.82 Long term (current) use of aspirin
CPT/HCPCS: 81025; 77001; 36561; C1788; J2250; J1100; J2405; J0690; J2001; J3010; J1642; J0330; J2704; J1170; J1644

== ENCOUNTER 2021-05-02 13:43 | Emergency (ER) | payer BC ==
[2021-05-02 14:09] VITALS: RESP 18; TEMP 99.2
[2021-05-02] MEDS ORDERED: HYDROmorphone 0.5 MG/0.5 ML SYRINGE IVP STA ×3 (14:31→16:58)
[2021-05-02] MEDS ORDERED: SODIUM CHLORIDE 0.9% 500 ML 500 ML IV STA (14:31)
[2021-05-02] MEDS ORDERED: ONDANSETRON 4 MG/2 ML VIAL IVP STA (14:31)
--- NOTE | 2021-05-02 14:35 | ED ---
General Adult HPI - General Chief complaint: Headache Stated complaint: Migraine Time Seen by Provider: 05/02/21 14:16 Source: patient Mode of arrival: ambulatory Limitations: no limitations - History of Present Illness Initial comments: This 41-year-old female with past medical history of migraines presents to the emergency department with a headache that began this morning. Patient states she takes Topamax, Imitrex, Zipzar daily for her migraines, however today none of these have helped. She states this feels similar to her prior migraine headaches that she has. Patient states she has not had a migraine that she has not been able to control home for about a year. Patient states she is nauseous and does have sensitivity to light and noise. Patient states this headache began out of nowhere and has been steady since. Patient states her pain is 9/10. Patient states her migraine is more in the right side than the left side, which is common for her. Patient states she also feels a little bit dizzy like the room is spinning. Patient denies any chest pain, shortness of breath, abdominal pain, blurred vision, vomiting, neck pain, fever. - Related Data Home Medications Medication Instructions Recorded Confirmed Montelukast Chew [Singulair chew] 10 mg PO DAILY 02/02/18 03/05/21 Prucalopride Succinate [Motegrity] 2 mg PO DAILY 01/14/19 03/05/21 oxyCODONE HCL [oxyCODONE HCL (IR)] 10 mg PO Q8H PRN 04/20/19 03/05/21 Linaclotide [Linzess] 290 mcg PO DAILY 05/24/19 03/05/21 Tegaserod Hydrogen Maleate 6 mg PO AC-BID 05/24/19 03/05/21 [Zelnorm] Lansoprazole 30 mg PO BID 08/27/19 03/05/21 Levothyroxine Sodium [Synthroid] 100 mcg PO DAILY 10/04/19 03/05/21 SUMAtriptan SUCCINATE [Imitrex] 100 mg PO BID PRN 05/20/20 03/05/21 Scopolamine 1.5MG/72Hr Patch 1 patch TRANSDERM Q72H PRN 05/25/20 03/05/21 [TransDerm Scop] Topiramate [Trokendi Xr] 50 mg PO DAILY 10/07/20 03/05/21 Fondaparinux Sodium [Arixtra] 7.5 mg SQ DAILY 03/02/21 03/05/21 Promethazine 25mg/Ml 12.5 - 25 mg IV Q4H PRN 03/02/21 03/05/21 Zofran 4mg/2ml 4 - 8 mg IV TID PRN 03/02/21 03/05/21 Previous Rx's Medication Instructions Recorded Aspirin 81 mg PO DAILY 30 Days chewable 10/16/19 Cephalexin [Keflex] 500 mg PO Q6HR #28 cap 04/04/21 Allergies Allergy/AdvReac Type Severity Reaction Status Date / Time metoclopramide [From Reglan] AdvReac Mild jittery Verified 05/02/21 14:05 prochlorperazine AdvReac Mild JITTERY Verified 05/02/21 14:05 [From Compazine] Review of Systems ROS Statement: Those systems with pertinent positive or pertinent negative responses have been documented in the HPI. ROS Other: All systems not noted in ROS Statement are negative. Past Medical History Past Medical History: Deep Vein Thrombosis (DVT), GERD/Reflux, Pulmonary Embolus (PE), Thyroid Disorder Additional Past Medical History / Comment(s): Idiopathic gastroparesis, takes little in orally-has J tube for feedings and gastric stimulator- chronic abdominal pain, R pulmonary embolism -2017, dvt R upper extremity 2018, pancreatitis once in 2017-thought stone somewhere, hypothyroid, chronic anemia, sinus problems, migraines History of Any Multi-Drug Resistant Organisms: VRE Date of last positivie culture/infection: 08/01/18 MDRO Source:: VRE URINE Past Surgical History: Section, Cholecystectomy, Hernia Repair, Orthopedic Surgery, Tonsillectomy Additional Past Surgical History / Comment(s): Gastric pacer with removal in spring 2017, J tube, gastric stimulator, x3, 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 Mother Family Medical History: No Reported History Additional Family Medical History / Comment(s): Mother is 58yrs old. General Exam Limitations: no limitations General appearance: alert, in no apparent distress Head exam: Present: atraumatic, normocephalic, other (No pain to palpation) Eye exam: Present: PERRL, EOMI, other (Pain that had 1 patient took off eye mask) Pupils: Present: normal accommodation ENT exam: Present: mucous membranes moist Neck exam: Present: full ROM. Absent: tenderness, meningismus Respiratory exam: Present: normal lung sounds bilaterally. Absent: respiratory distress, wheezes, rales, rhonchi, stridor Cardiovascular Exam: Present: regular rate, normal rhythm, normal heart sounds. Absent: systolic murmur, diastolic murmur, rubs, gallop, clicks GI/Abdominal exam: Present: soft, normal bowel sounds. Absent: distended, tenderness, guarding, rebound, rigid Extremities exam: Present: full ROM Back exam: Present: full ROM. Absent: tenderness, CVA tenderness (R), CVA tenderness (L) Neurological exam: Present: alert, oriented X3, CN II-XII intact Psychiatric exam: Present: normal affect, normal mood Skin exam: Present: warm, dry, intact, normal color. Absent: rash Course Vital Signs 05/02/21 05/02/21 14:05 16:19 Temperature 99.2 F Pulse Rate 89 82 Respiratory 18 18 Rate Blood Pressure 112/70 110/72 O2 Sat by Pulse 98 99 Oximetry - Reevaluation(s) Reevaluation #1: 05/02/21 15:24 She states her pain is significantly decreased after receiving some fluid and pain medication. Reevaluation #2: 05/02/21 16:38 Patient states she is no longer dizzy and states her headache has significantly improved Medical Decision Making - Medical Decision Making This 41-year-old female past medical history of migraine headaches presents to the emergency department with right-sided take that began this morning. Pain medication and fluids were given which decreased patient's pain significantly. CT brain impression: Negative unenhanced computed tomography scan. No change from prior. There is no sign of intracranial hemorrhage. Patient sent home to follow-up with primary care provider next 24-48 hours. Strict return precautions were discussed. Patient verbally agreed to plan. Patient sent home stable condition. Discussed with my attending, . Disposition Clinical Impression: Headache Disposition: HOME SELF-CARE Condition: Stable Instructions (If sedation given, give patient instructions): Migraine Headache (ED), Acute Headache (ED) Additional Instructions: Please return to the emergency department with any concerning, new, worsening symptoms. Follow-up with primary care provider next 24-48 hours. Is patient prescribed a controlled substance at d/c from ED?: No Referrals: Karthikeyan Pedro MD [Primary Care Provider] - 1-2 days Time of Disposition: 16:37
[2021-05-02] MEDS ORDERED: diphenhydrAMINE 50 MG/ML 1 ML VIAL IVP STA (15:23)
--- NOTE | 2021-05-02 15:23 | CT ---
EXAMINATION TYPE: CT brain wo con DATE OF EXAM: 05/02/2021 COMPARISON: 05/20/2020 HISTORY: c/o migraines CT DLP: 1118.4 mGycm Automated exposure control for dose reduction was used. Images obtained of the brain without contrast. Ventricles have normal size. There is no mass effect or midline shift. There is no sign of intracrani al hemorrhage. Calvarium is intact. There is normal aeration of the mastoid sinuses. Skull base is in tact but IMPRESSION: Negative unenhanced head CT scan. No change.
[2021-05-02 17:11] VITALS: BP 115/60; PULSE 84
== END 2021-05-02 17:10 | disposition home or self-care (01) ==
LOC: EC 13:43
DX: R51.9 Headache, unspecified (principal); K21.9 Gastro-esophageal reflux disease without esophagitis; Z79.83 Long term (current) use of bisphosphonates; Z88.9 Allergy status to unspecified drugs, medicaments and biological substances; Z88.8 Allergy status to other drugs, medicaments and biological substances
CPT/HCPCS: 70450; 99284; 96374; 96375; 96376; J1200; J2405; J1170

== ENCOUNTER 2021-05-03 14:34 | Emergency (ER) | payer BC ==
[2021-05-03 14:39] VITALS: BP 120/71; RESP 18; TEMP 98.1
[2021-05-03] MEDS ORDERED: SODIUM CHLORIDE 0.9% 1,000 ML IV STA (14:56)
[2021-05-03] MEDS ORDERED: DEXAMETHASONE SOD PHOSPHATE 10 MG/ML 1 ML VIAL IV STA (14:56)
[2021-05-03] MEDS ORDERED: diphenhydrAMINE 50 MG/ML 1 ML VIAL IVP STA (14:56)
[2021-05-03] MEDS ORDERED: KETOROLAC 15 MG/ML 1 ML VIAL IVP STA (14:56)
[2021-05-03] MEDS ORDERED: MAGNESIUM SULFATE-D5W PMX 1 GM in DEXTROSE/WATER 1 100ML.BAG IVPB ONE (15:02)
--- NOTE | 2021-05-03 15:29 | ED ---
General Adult HPI - General Source: patient Mode of arrival: ambulatory Limitations: no limitations <Anneliese Cruz - Last Filed: 05/03/21 16:34> <Ciara Howard - Last Filed: 05/09/21 23:32> - General Chief complaint: Headache Stated complaint: Migraine Time Seen by Provider: 05/03/21 14:40 - History of Present Illness Initial comments: This 41-year-old female with past medical history of GERD, thyroid disorder, idiopathic gastroparesis, migraine headaches presents to the emergency department with a headache that began this morning. Patient states she was here yesterday with a migraine that resolved, she states after leaving here yesterday her headache was gone and felt better, however, today at [facility] her headache started to come back and has been slowly getting worse since. Patient states she does have some light and noise sensitivity which is common with her migraine headaches. She states she feels little bit nauseous but denies any vomiting. She states her pain as 9/10. Patient states this migraine headache as the exact same as when she had yesterday and the same as all other migraine headaches in the past. Patient denies any chest pain, shortness of breath, abdominal pain, change in vision, change in appetite, change in bowel or bladder, neck pain, back pain. Patient states that she was here yesterday she did get a brain MRI which she stated did not have any acute abnormalities present. (Anneliese Cruz) - Related Data Home Medications Medication Instructions Recorded Confirmed Montelukast Chew [Singulair chew] 10 mg PO DAILY 02/02/18 05/06/21 Prucalopride Succinate [Motegrity] 2 mg PO DAILY 01/14/19 05/06/21 oxyCODONE HCL [oxyCODONE HCL (IR)] 10 mg PO Q8H PRN 04/20/19 05/06/21 Linaclotide [Linzess] 290 mcg PO DAILY PRN 05/24/19 05/06/21 Tegaserod Hydrogen Maleate 6 mg PO AC-BID 05/24/19 05/06/21 [Zelnorm] Lansoprazole 30 mg PO BID 08/27/19 05/06/21 Levothyroxine Sodium [Synthroid] 100 mcg PO DAILY 10/04/19 05/06/21 SUMAtriptan SUCCINATE [Imitrex] 100 mg PO BID PRN 05/20/20 05/06/21 Topiramate [Trokendi Xr] 50 mg PO HS 10/07/20 05/06/21 Ondansetron Odt [Zofran Odt] 8 mg PO Q8HR PRN 05/03/21 05/06/21 Promethazine Vc-Codeine Sushma 5 ml PO Q6H PRN 05/03/21 05/06/21 Zipsor 25mg 25 mg PO TID 05/03/21 05/06/21 Previous Rx's Medication Instructions Recorded Aspirin 81 mg PO DAILY 30 Days chewable 10/16/19 Calcium Carbonate [Calcium] 600 mg PO DAILY #30 tablet 05/07/21 Allergies Allergy/AdvReac Type Severity Reaction Status Date / Time metoclopramide [From Reglan] AdvReac Mild jittery Verified 05/06/21 18:10 prochlorperazine AdvReac Mild JITTERY Verified 05/06/21 18:10 [From Compazine] Review of Systems ROS Other: All systems not noted in ROS Statement are negative. <Anneliese Cruz - Last Filed: 05/03/21 16:34> ROS Other: All systems not noted in ROS Statement are negative. <Ciara Howard - Last Filed: 05/09/21 23:32> ROS Statement: Those systems with pertinent positive or pertinent negative responses have been documented in the HPI. Past Medical History Past Medical History: Deep Vein Thrombosis (DVT), GERD/Reflux, Pulmonary Embolus (PE), Thyroid Disorder Additional Past Medical History / Comment(s): Idiopathic gastroparesis, takes little in orally-has J tube for feedings and gastric stimulator- chronic abdominal pain, R pulmonary embolism -2017, dvt R upper extremity 2018, pancreatitis once in 2018-thought stone somewhere, hypothyroid, chronic anemia, sinus problems, migraines History of Any Multi-Drug Resistant Organisms: VRE Date of last positivie culture/infection: 08/01/18 MDRO Source:: VRE URINE Past Surgical History: Section, Cholecystectomy, Hernia Repair, Orthopedic Surgery, Tonsillectomy Additional Past Surgical History / Comment(s): Gastric pacer with removal in spring 2017, J tube, gastric stimulator, x3, 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 Mother Family Medical History: No Reported History Additional Family Medical History / Comment(s): Mother is 58yrs old. <Anneliese Cruz - Last Filed: 05/03/21 16:34> General Exam Limitations: no limitations General appearance: alert (She was sunglasses on and would over her eyes. States with light makes her headache worse.), in no apparent distress Head exam: Present: atraumatic, normocephalic, normal inspection Eye exam: Present: PERRL, EOMI Pupils: Present: normal accommodation ENT exam: Present: normal exam, mucous membranes moist Neck exam: Present: normal inspection, full ROM. Absent: tenderness, meningismus, lymphadenopathy Respiratory exam: Present: normal lung sounds bilaterally. Absent: respiratory distress, wheezes, rales, rhonchi, stridor Cardiovascular Exam: Present: regular rate, normal rhythm, normal heart sounds. Absent: systolic murmur, diastolic murmur, rubs, gallop, clicks GI/Abdominal exam: Present: soft, normal bowel sounds. Absent: distended, tenderness, guarding, rebound, rigid Extremities exam: Present: normal inspection, full ROM, normal capillary refill. Absent: tenderness, pedal edema, joint swelling, calf tenderness Back exam: Present: normal inspection, full ROM. Absent: tenderness, CVA tenderness (R), CVA tenderness (L), paraspinal tenderness, vertebral tenderness Neurological exam: Present: alert, oriented X3, CN II-XII intact Psychiatric exam: Present: normal affect, normal mood Skin exam: Present: warm, dry, intact, normal color. Absent: rash <Anneliese Cruz - Last Filed: 05/03/21 16:34> Course <Anneliese Cruz - Last Filed: 05/03/21 16:34> Vital Signs 05/03/21 05/03/21 14:36 16:43 Temperature 98.1 F Pulse Rate 73 69 Respiratory 18 18 Rate Blood Pressure 120/71 O2 Sat by Pulse 99 99 Oximetry - Reevaluation(s) Reevaluation #1: 05/03/21 15:46 Patient states her headache pain has slightly gotten better but states she is still a little bit nauseous. (Anneliese Cruz) Medical Decision Making <Anneliese Cruz - Last Filed: 05/03/21 16:34> <Ciara Howard - Last Filed: 05/09/21 23:32> - Medical Decision Making This 41-year-old female with a past medical history of idiopathic gastroparesis and migraine headaches presents to the emergency department with a migraine headache that began at 10 AM this morning. Patient states she experienced a migraine headache yesterday that was the same as what she is feeling now. Patient states she took Imitrex, Zipsor and Excedrin which did not seem to relieve or help her headache. Fluids, Decadron, Toradol, Benadryl, Ativan and magnesium were given to patient seemed to relieve her pain. Patient states her pain is still 7/10, 0.5 of Dilaudid was given patient. Patient discharged home with relief of her headache. Patient to follow up with her neurologist in the next 24-48 hours. Strict return precautions were discussed. Patient verbally agreed to the plan. Patient sent home in stable condition. Discussed case with my attending, Dr. Howard. (Anneliese Cruz) I evaluated the patient myself. Discussed treatment with non narcotic medications. and patient report that her headaches only respond to iv narcotics. Discussed concern for dependency with patient however patient and adamant that nothing else has worked or will work. Patient refusing to try recommended non narcotic options. I stressed that the patient needs to follow up with her neurologist for better treatment options as I am concerned about her frequency of visits to the ED with demand for IV opiates. (Ciara Howard) Disposition Is patient prescribed a controlled substance at d/c from ED?: No Time of Disposition: 16:32 <Anneliese Cruz - Last Filed: 05/03/21 16:34> <Ciara Howard - Last Filed: 05/09/21 23:32> Clinical Impression: Migraine headache, Narcotic dependency, continuous Disposition: HOME SELF-CARE Condition: Stable Instructions (If sedation given, give patient instructions): Acute Headache (ED) Additional Instructions: Please return to the emergency department with any concerning, new, worsening symptoms. Please follow-up with neurologist next 24-48 hours. Referrals: None,Stated [Primary Care Provider] - 1-2 days
[2021-05-03] MEDS ORDERED: LORazepam 2 MG/ML INJ IV STA (15:43)
[2021-05-03] MEDS ORDERED: PANTOPRAZOLE 40 MG/10 ML VIAL IVP STA (16:15)
[2021-05-03] MEDS ORDERED: HYDROmorphone 0.5 MG/0.5 ML SYRINGE IVP STA (16:31)
[2021-05-03 16:44] VITALS: PULSE 69
== END 2021-05-03 16:50 | disposition home or self-care (01) ==
LOC: EC 14:34
DX: G43.909 Migraine, unspecified, not intractable, without status migrainosus (principal); F11.20 Opioid dependence, uncomplicated; Z86.718 Personal history of other venous thrombosis and embolism; Z88.8 Allergy status to other drugs, medicaments and biological substances; Z88.9 Allergy status to unspecified drugs, medicaments and biological substances
CPT/HCPCS: 99283; 96374; 96375; J2060; J1200; J1100; J3475; J1885; C9113; J1170

== ENCOUNTER 2021-05-04 19:06 | Emergency (ER) | payer BC ==
[2021-05-04 19:32] VITALS: TEMP 98.1
[2021-05-04] MEDS ORDERED: LORazepam 2 MG/ML INJ IV STA (20:36)
[2021-05-04] MEDS ORDERED: SODIUM CHLORIDE 0.9% 1,000 ML IV STA (20:36)
[2021-05-04] MEDS ORDERED: diphenhydrAMINE 50 MG/ML 1 ML VIAL IVP STA (20:36)
[2021-05-04] MEDS ORDERED: KETOROLAC 30 MG/ML 1 ML VIAL IVP STA (20:36)
--- NOTE | 2021-05-04 20:39 | ED ---
General Adult HPI - General Chief complaint: Headache Stated complaint: Headache Time Seen by Provider: 05/04/21 20:21 Source: patient, family Mode of arrival: ambulatory Limitations: no limitations - History of Present Illness Initial comments: 41-year-old female with a complicated past medical history presents to the emergency room for migraine headache. Patient states that she developed a migraine earlier today. States it had a slow onset. Denies any thunderclap characteristics. Patient states this pain is exactly consistent with previous migraines. Patient states it is unilateral on the right side of the head. Patient admits to nausea and light sensitivity. Patient is seeing her neurologist tomorrow. Patient already took her sumatriptan and topamax. Patient has no other complaints at this time including shortness of breath, chest pain, abdominal pain, or visual changes. - Related Data Home Medications Medication Instructions Recorded Confirmed Montelukast Chew [Singulair chew] 10 mg PO DAILY 02/02/18 05/04/21 Prucalopride Succinate [Motegrity] 2 mg PO DAILY 01/14/19 05/04/21 oxyCODONE HCL [oxyCODONE HCL (IR)] 10 mg PO Q8H PRN 04/20/19 05/04/21 Linaclotide [Linzess] 290 mcg PO DAILY PRN 05/24/19 05/04/21 Tegaserod Hydrogen Maleate 6 mg PO AC-BID 05/24/19 05/04/21 [Zelnorm] Lansoprazole 30 mg PO BID 08/27/19 05/04/21 Levothyroxine Sodium [Synthroid] 100 mcg PO DAILY 10/04/19 05/04/21 SUMAtriptan SUCCINATE [Imitrex] 100 mg PO BID PRN 05/20/20 05/04/21 Topiramate [Trokendi Xr] 50 mg PO HS 10/07/20 05/04/21 Ondansetron Odt [Zofran Odt] 8 mg PO Q8HR PRN 05/03/21 05/04/21 Promethazine Vc-Codeine Sushma 5 ml PO Q6H PRN 05/03/21 05/04/21 Zipsor 25mg 25 mg PO TID 05/03/21 05/04/21 Previous Rx's Medication Instructions Recorded Aspirin 81 mg PO DAILY 30 Days chewable 10/16/19 Allergies Allergy/AdvReac Type Severity Reaction Status Date / Time metoclopramide [From Reglan] AdvReac Mild jittery Verified 05/04/21 21:21 prochlorperazine AdvReac Mild JITTERY Verified 05/04/21 21:21 [From Compazine] Review of Systems ROS Statement: Those systems with pertinent positive or pertinent negative responses have been documented in the HPI. ROS Other: All systems not noted in ROS Statement are negative. Past Medical History Past Medical History: Deep Vein Thrombosis (DVT), GERD/Reflux, Pulmonary Embolus (PE), Thyroid Disorder Additional Past Medical History / Comment(s): Idiopathic gastroparesis, takes little in orally-has J tube for feedings and gastric stimulator- chronic abdominal pain, R pulmonary embolism 5-2017, dvt R upper extremity 2018, pancreatitis once in 2017-thought stone somewhere, hypothyroid, chronic anemia, sinus problems, migraines History of Any Multi-Drug Resistant Organisms: VRE Date of last positivie culture/infection: 08/01/18 MDRO Source:: VRE URINE Past Surgical History: Section, Cholecystectomy, Hernia Repair, Orthopedic Surgery, Tonsillectomy Additional Past Surgical History / Comment(s): Gastric pacer with removal in spring 2017, J tube, gastric stimulator, x3, 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 Mother Family Medical History: No Reported History Additional Family Medical History / Comment(s): Mother is 58yrs old. General Exam Limitations: no limitations General appearance: alert, in no apparent distress Head exam: Present: atraumatic Eye exam: Present: normal appearance, PERRL, EOMI. Absent: scleral icterus, conjunctival injection ENT exam: Present: normal exam, mucous membranes moist Neck exam: Present: normal inspection, full ROM. Absent: tenderness Respiratory exam: Present: normal lung sounds bilaterally. Absent: respiratory distress, wheezes Cardiovascular Exam: Present: regular rate, normal rhythm, normal heart sounds GI/Abdominal exam: Present: soft, normal bowel sounds. Absent: distended, tenderness Neurological exam: Present: alert, oriented X3, other (GCS 15) Course Vital Signs 05/04/21 05/04/21 05/04/21 19:22 20:32 22:07 Temperature 98.1 F Pulse Rate 112 H 101 H 99 Respiratory 22 18 18 Rate Blood Pressure 132/86 135/87 138/85 O2 Sat by Pulse 98 98 98 Oximetry Medical Decision Making - Medical Decision Making Vitals are stable. Patient is well-appearing. Patient was given fluids, Toradol, Ativan, Benadryl. She did have improvement in symptoms. She was given a dose of Solu-Medrol to prevent rebound headache. Patient has an appointment with her neurologist. She will follow up with them at 4:30 tomorrow May 05. She will return here for any worsening symptoms. Disposition Clinical Impression: Headache Disposition: HOME SELF-CARE Condition: Good Instructions (If sedation given, give patient instructions): Migraine Headache (ED) Additional Instructions: Please follow-up with your neurologist at your scheduled appointment tomorrow at 4:30. Return to the emergency room for any worsening symptoms. Is patient prescribed a controlled substance at d/c from ED?: No Referrals: Karthikeyan Pedro MD [Primary Care Provider] - 1-2 days Time of Disposition: 22:48
[2021-05-04 22:10] VITALS: RESP 18
[2021-05-04] MEDS ORDERED: methylPREDNISolone SOD SUCCI 125 MG/2 ML VIAL IV STA (22:47)
[2021-05-04] MEDS ORDERED: HYDROmorphone 0.5 MG/0.5 ML SYRINGE IVP STA (23:13)
[2021-05-04 23:51] VITALS: BP 134/78; PULSE 78
== END 2021-05-04 23:51 | disposition home or self-care (01) ==
LOC: EC 19:06
DX: R51.9 Headache, unspecified (principal); Z88.8 Allergy status to other drugs, medicaments and biological substances; Z88.9 Allergy status to unspecified drugs, medicaments and biological substances
CPT/HCPCS: 99283; 96374; 96375; J2060; J1200; J2930; J1885; J1170

== ENCOUNTER 2021-05-06 17:45 | Observation (INO) | payer BC ==
[2021-05-06] MEDS ORDERED: diphenhydrAMINE 50 MG/ML 1 ML VIAL IVP STA (18:04)
[2021-05-06] MEDS ORDERED: SODIUM CHLORIDE 0.9% 500 ML 500 ML IV STA (18:04)
[2021-05-06] MEDS ORDERED: SODIUM CHLORIDE 0.9% 1,000 ML IV STA (18:08)
[2021-05-06] MEDS ORDERED: LORazepam 2 MG/ML INJ IV STA (18:09)
[2021-05-06 18:16] LABS: Basophils # (A) 0.1 k/uL (0-0.2); Basophils % (A) 1 %; Eosinophils # (A) 0.1 k/uL (0-0.7); Eosinophils % (A) 1 %; HCT 40.7 % (34.0-46.0); HGB 13.5 gm/dL (11.4-16.0); Lymphocytes # (A) 3.6 k/uL (1.0-4.8); Lymphocytes % (A) 38 %; MCH 29.9 pg (25.0-35.0); MCHC 33.3 g/dL (31.0-37.0); Mean Platelet Volume 6.9; Monocytes # (A) 0.6 k/uL (0-1.0); Monocytes % (A) 7 %; Neutrophils # (A) 4.9 k/uL (1.3-7.7); Neutrophils % (A) 51 %; Platelet Count 296 k/uL (150-450); RBC 4.52 m/uL (3.80-5.40); RDW 13.5 % (11.5-15.5); WBC 9.5 k/uL (3.8-10.6)
[2021-05-06 18:25] LABS: ALT 7 U/L (4-34); AST 15 U/L (14-36); African American GFR (CKD) >90 (>60 ml/min/1.73 sqM); Albumin 2.2 g/dL (3.5-5.0); Alkaline Phosphatase 53 U/L (38-126); Anion Gap 8 mmol/L; Blood Urea Nitrogen 14 mg/dL (7-17); Carbon Dioxide 16 mmol/L (22-30); Chloride 120 mmol/L (98-107); Glucose 69 mg/dL (74-99); Lipase 65 U/L (23-300); Non-African American GFR(CKD) >90 (>60 ml/min/1.73 sqM); Potassium 3.3 mmol/L (3.5-5.1); Sodium 144 mmol/L (137-145); Total Bilirubin 0.2 mg/dL (0.2-1.3); Total Protein 4.3 g/dL (6.3-8.2)
--- NOTE | 2021-05-06 18:27 | ED ---
General Adult HPI - General Chief complaint: Nausea/Vomiting/Diarrhea Stated complaint: N/V Time Seen by Provider: 05/06/21 17:50 Source: patient Mode of arrival: ambulatory Limitations: no limitations - History of Present Illness Initial comments: This 41-year-old female past medical history of idiopathic gastroparesis and migraines presents to the emergency department with diffuse abdominal pain, nausea and vomiting that began this morning. Patient states she began vomiting this morning and has vomited about 12 times since. Patient states she has given herself fluids through her port, 1 L last night. Patient states she also has diffuse abdominal pain rating at 7/10 pain and describes it as diffuse. Patient denies any chest pain, shortness of breath, back pain, change in vision, change in bowel or bladder, hemoptysis, dizziness, headache. Patient states she has been here for the last 4 days for migraine, however that has resolved. - Related Data Home Medications Medication Instructions Recorded Confirmed Montelukast Chew [Singulair chew] 10 mg PO DAILY 02/02/18 05/06/21 Prucalopride Succinate [Motegrity] 2 mg PO DAILY 01/14/19 05/06/21 oxyCODONE HCL [oxyCODONE HCL (IR)] 10 mg PO Q8H PRN 04/20/19 05/06/21 Linaclotide [Linzess] 290 mcg PO DAILY PRN 05/24/19 05/06/21 Tegaserod Hydrogen Maleate 6 mg PO AC-BID 05/24/19 05/06/21 [Zelnorm] Lansoprazole 30 mg PO BID 08/27/19 05/06/21 Levothyroxine Sodium [Synthroid] 100 mcg PO DAILY 10/04/19 05/06/21 SUMAtriptan SUCCINATE [Imitrex] 100 mg PO BID PRN 05/20/20 05/06/21 Topiramate [Trokendi Xr] 50 mg PO HS 10/07/20 05/06/21 Ondansetron Odt [Zofran Odt] 8 mg PO Q8HR PRN 05/03/21 05/06/21 Promethazine Vc-Codeine Sushma 5 ml PO Q6H PRN 05/03/21 05/06/21 Zipsor 25mg 25 mg PO TID 05/03/21 05/06/21 Previous Rx's Medication Instructions Recorded Aspirin 81 mg PO DAILY 30 Days chewable 10/16/19 Allergies Allergy/AdvReac Type Severity Reaction Status Date / Time metoclopramide [From Reglan] AdvReac Mild jittery Verified 05/06/21 18:10 prochlorperazine AdvReac Mild JITTERY Verified 05/06/21 18:10 [From Compazine] Review of Systems ROS Statement: Those systems with pertinent positive or pertinent negative responses have been documented in the HPI. ROS Other: All systems not noted in ROS Statement are negative. Past Medical History Past Medical History: Deep Vein Thrombosis (DVT), GERD/Reflux, Pulmonary Embolus (PE), Thyroid Disorder Additional Past Medical History / Comment(s): Idiopathic gastroparesis, takes little in orally-has J tube for feedings and gastric stimulator- chronic abdominal pain, R pulmonary embolism -2017, dvt R upper extremity 2018, pancreatitis once in 2018-thought stone somewhere, hypothyroid, chronic anemia, sinus problems, migraines History of Any Multi-Drug Resistant Organisms: VRE Date of last positivie culture/infection: 08/01/18 MDRO Source:: VRE URINE Past Surgical History: Section, Cholecystectomy, Hernia Repair, Orthopedic Surgery, Tonsillectomy Additional Past Surgical History / Comment(s): Gastric pacer with removal in spring 2017, J tube, gastric stimulator, x3, 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 Mother Family Medical History: No Reported History Additional Family Medical History / Comment(s): Mother is 58yrs old. General Exam Limitations: no limitations General appearance: alert, in no apparent distress Head exam: Present: atraumatic, normocephalic Eye exam: Present: normal appearance, PERRL, EOMI Pupils: Present: normal accommodation ENT exam: Present: normal exam, mucous membranes moist Neck exam: Present: full ROM Respiratory exam: Present: normal lung sounds bilaterally. Absent: respiratory distress, wheezes, rales, rhonchi, stridor Cardiovascular Exam: Present: regular rate, normal rhythm, normal heart sounds. Absent: systolic murmur, diastolic murmur, rubs, gallop, clicks GI/Abdominal exam: Present: soft, tenderness (Diffuse tenderness in all quadrants to palpation), normal bowel sounds. Absent: distended, guarding, rebound, rigid Extremities exam: Present: full ROM Back exam: Present: full ROM. Absent: tenderness, CVA tenderness (R), CVA tenderness (L) Neurological exam: Present: alert, oriented X3, CN II-XII intact Psychiatric exam: Present: normal affect, normal mood Skin exam: Present: warm, dry, intact, normal color, other (no chvostek or trousseau signs present). Absent: rash Course Vital Signs 05/06/21 17:47 Temperature 98 F Pulse Rate 84 Respiratory 18 Rate Blood Pressure 115/76 O2 Sat by Pulse 98 Oximetry Medical Decision Making - Medical Decision Making This 41-year-old female since the emergency department with nausea vomiting and abdominal pain that began this morning. Labs revealed calcium of 6.2, albumin 2.2 and glucose of 69. 1 g calcium gluconate was given and 0.5 glucagon then given. Urine unremarkable. Coronavirus not detected. Spoke with Christina Ku who agreed to admit the patient. Patient will be admitted to the hospital for observation and lab rechecks in the morning. Fluids, Ativan, Benadryl, Dilaudid given to patient which improved her nausea and abdominal pain. Patient was put on continuous color television console monitor. Patient verbally agreed to plan. Discussed the case with my attending, Dr. Pineda. - Lab Data Result diagrams: 05/06/21 18:10 05/06/21 18:10 Lab Results 05/06/21 05/06/21 05/06/21 Range/Units 18:10 18:10 18:10 WBC 9.5 (3.8-10.6) k/uL RBC 4.52 (3.80-5.40) m/uL Hgb 13.5 (11.4-16.0) gm/dL Hct 40.7 (34.0-46.0) % MCV 90.0 (80.0-100.0) fL MCH 29.9 (25.0-35.0) pg MCHC 33.3 (31.0-37.0) g/dL RDW 13.5 (11.5-15.5) % Plt Count 296 (150-450) k/uL MPV 6.9 Neutrophils % 51 % Lymphocytes % 38 % Monocytes % 7 % Eosinophils % 1 % Basophils % 1 % Neutrophils # 4.9 (1.3-7.7) k/uL Lymphocytes # 3.6 (1.0-4.8) k/uL Monocytes # 0.6 (0-1.0) k/uL Eosinophils # 0.1 (0-0.7) k/uL Basophils # 0.1 (0-0.2) k/uL Sodium 144 (137-145) mmol/L Potassium 3.3 L (3.5-5.1) mmol/L Chloride 120 H (98-107) mmol/L Carbon Dioxide 16 L (22-30) mmol/L Anion Gap 8 mmol/L BUN 14 (7-17) mg/dL Creatinine 0.59 (0.52-1.04) mg/dL Est GFR (CKD-EPI)AfAm >90 (>60 ml/min/1.73 sqM) Est GFR (CKD-EPI)NonAf >90 (>60 ml/min/1.73 sqM) Glucose 69 L (74-99) mg/dL Calcium 6.2 L* (8.4-10.2) mg/dL Total Bilirubin 0.2 (0.2-1.3) mg/dL AST 15 (14-36) U/L ALT 7 (4-34) U/L Alkaline Phosphatase 53 (38-126) U/L Total Protein 4.3 L (6.3-8.2) g/dL Albumin 2.2 L (3.5-5.0) g/dL Lipase 65 (23-300) U/L Urine Color Light Yellow Urine Appearance Clear (Clear) Urine pH 6.0 (5.0-8.0) Ur Specific [place] 1.012 (1.001-1.035) Urine Protein Negative (Negative) Urine Glucose (UA) Negative (Negative) Urine Ketones Negative (Negative) Urine Blood Negative (Negative) Urine Nitrite Negative (Negative) Urine Bilirubin Negative (Negative) Urine Urobilinogen <2.0 (<2.0) mg/dL Ur Leukocyte Esterase Negative (Negative) Coronavirus (PCR) (Not Detectd) 05/06/21 Range/Units 19:46 WBC (3.8-10.6) k/uL RBC (3.80-5.40) m/uL Hgb (11.4-16.0) gm/dL Hct (34.0-46.0) % MCV (80.0-100.0) fL MCH (25.0-35.0) pg MCHC (31.0-37.0) g/dL RDW (11.5-15.5) % Plt Count (150-450) k/uL MPV Neutrophils % % Lymphocytes % % Monocytes % % Eosinophils % % Basophils % % Neutrophils # (1.3-7.7) k/uL Lymphocytes # (1.0-4.8) k/uL Monocytes # (0-1.0) k/uL Eosinophils # (0-0.7) k/uL Basophils # (0-0.2) k/uL Sodium (137-145) mmol/L Potassium (3.5-5.1) mmol/L Chloride (98-107) mmol/L Carbon Dioxide (22-30) mmol/L Anion Gap mmol/L BUN (7-17) mg/dL Creatinine (0.52-1.04) mg/dL Est GFR (CKD-EPI)AfAm (>60 ml/min/1.73 sqM) Est GFR (CKD-EPI)NonAf (>60 ml/min/1.73 sqM) Glucose (74-99) mg/dL Calcium (8.4-10.2) mg/dL Total Bilirubin (0.2-1.3) mg/dL AST (14-36) U/L ALT (4-34) U/L Alkaline Phosphatase (38-126) U/L Total Protein (6.3-8.2) g/dL Albumin (3.5-5.0) g/dL Lipase (23-300) U/L Urine Color Urine Appearance (Clear) Urine pH (5.0-8.0) Ur Specific [place] (1.001-1.035) Urine Protein (Negative) Urine Glucose (UA) (Negative) Urine Ketones (Negative) Urine Blood (Negative) Urine Nitrite (Negative) Urine Bilirubin (Negative) Urine Urobilinogen (<2.0) mg/dL Ur Leukocyte Esterase (Negative) Coronavirus (PCR) Not Detected (Not Detectd) Disposition Clinical Impression: Hypocalcemia, Abdominal pain, Nausea and vomiting Disposition: ADMITTED IP TO THIS HOSP Condition: Stable Is patient prescribed a controlled substance at d/c from ED?: No Time of Disposition: 19:42
[2021-05-06 18:28] LABS: Calcium 6.2 mg/dL (8.4-10.2)
[2021-05-06] MEDS ORDERED: CALCIUM GLUCONATE 1 GM in SODIUM CHLORIDE 0.9% 100 ML IVPB ONE (18:29)
[2021-05-06] MEDS: CHOLECALCIFEROL 25 MCG (1000 IU) TABLET PO SCH (18:58)
[2021-05-06] MEDS ORDERED: GLUCAGON 1 MG/ML VIAL IVP STA (19:11)
[2021-05-06] MEDS ORDERED: HYDROmorphone 0.5 MG/0.5 ML SYRINGE IVP STA (19:17)
[2021-05-06] MEDS ORDERED: NALOXONE 0.4 MG/ML 1 ML VIAL IV PRN ×2 (19:28→19:59)
[2021-05-06 19:45] LABS: Appearance,Urine Clear (Clear); Bilirubin,Urine Negative (Negative); Blood,Urine Negative (Negative); Color,Urine Light Yellow; Glucose,Urine (UA) Negative (Negative); Ketones,Urine Negative (Negative); Leukocyte Esterase,Urine Negative (Negative); Nitrite,Urine Negative (Negative); Protein,Urine Negative (Negative); Specific Gravity,Urine 1.012 (1.001-1.035); Urobilinogen,Urine <2.0 mg/dL (<2.0)
[2021-05-06] MEDS: SODIUM CHLORIDE 0.9% 1,000 ML IV SCH (20:56)
[2021-05-06] MEDS: HYDROmorphone 0.5 MG/0.5 ML SYRINGE IVP PRN (22:05)
[2021-05-06] MEDS: ONDANSETRON 4 MG/2 ML VIAL IVP PRN (22:08)
[2021-05-06] MEDS ORDERED: POTASSIUM CHLORIDE ER 20 MEQ TAB.ER PO STA (22:58)
[2021-05-06 23:01] VITALS: RESP 16
[2021-05-06] MEDS: PANTOPRAZOLE 40 MG/10 ML VIAL IVP SCH (23:30)
[2021-05-06] MEDS: diphenhydrAMINE 50 MG/ML 1 ML VIAL IVP PRN (23:34)
[2021-05-07] MEDS: HYDROmorphone 0.5 MG/0.5 ML SYRINGE IVP PRN ×4 (01:35→10:42)
[2021-05-07] MEDS: SODIUM CHLORIDE 0.9% 1,000 ML IV SCH ×2 (01:37→11:33)
[2021-05-07] MEDS: diphenhydrAMINE 50 MG/ML 1 ML VIAL IVP PRN ×2 (05:31→11:33)
[2021-05-07] MEDS ORDERED: LEVOTHYROXINE 100 MCG TAB PO SCH (06:30)
[2021-05-07] MEDS: PANTOPRAZOLE 40 MG/10 ML VIAL IVP SCH (07:36)
[2021-05-07] MEDS: ONDANSETRON 4 MG/2 ML VIAL IVP PRN (07:37)
[2021-05-07] MEDS: CHOLECALCIFEROL 25 MCG (1000 IU) TABLET PO SCH (07:37)
[2021-05-07] MEDS ORDERED: NON FORMULARY DRUG (Linaclotide [Linzess] 290 MCG Capsule) PO PRN (07:58)
[2021-05-07] MEDS ORDERED: SUMAtriptan succinate 50 MG TAB PO PRN (07:58)
[2021-05-07] MEDS ORDERED: ONDANSETRON ODT 8 MG TAB.RAPDIS PO PRN (07:58)
[2021-05-07 08:08] LABS: ALT 35 U/L (4-34); African American GFR (CKD) >90 (>60 ml/min/1.73 sqM); Albumin 3.2 g/dL (3.5-5.0); Albumin/Globulin Ratio 1.2; Anion Gap 6 mmol/L; Blood Urea Nitrogen 14 mg/dL (7-17); Calcium 9.2 mg/dL (8.4-10.2); Carbon Dioxide 20 mmol/L (22-30); Chloride 115 mmol/L (98-107); Globulin 2.6 g/dL; Glucose 77 mg/dL (74-99); Non-African American GFR(CKD) 82 (>60 ml/min/1.73 sqM); Sodium 141 mmol/L (137-145); Total Bilirubin 0.7 mg/dL (0.2-1.3); Total Protein 5.8 g/dL (6.3-8.2)
[2021-05-07 08:09] LABS: AST 35 U/L (14-36); Alkaline Phosphatase 55 U/L (38-126); Potassium 5.4 mmol/L (3.5-5.1)
[2021-05-07 08:20] LABS: Basophils # (A) 0.1 k/uL (0-0.2); Basophils % (A) 1 %; Eosinophils # (A) 0.2 k/uL (0-0.7); Eosinophils % (A) 3 %; HCT 43.7 % (34.0-46.0); HGB 14.6 gm/dL (11.4-16.0); Lymphocytes # (A) 3.3 k/uL (1.0-4.8); Lymphocytes % (A) 42 %; MCH 29.7 pg (25.0-35.0); MCHC 33.5 g/dL (31.0-37.0); MCV 88.8 fL (80.0-100.0); Mean Platelet Volume 8.3; Monocytes # (A) 0.6 k/uL (0-1.0); Monocytes % (A) 8 %; Neutrophils # (A) 3.7 k/uL (1.3-7.7); Neutrophils % (A) 46 %; Platelet Count 259 k/uL (150-450); RBC 4.92 m/uL (3.80-5.40); RDW 13.4 % (11.5-15.5)
[2021-05-07] MEDS ORDERED: ASPIRIN 81 MG PO SCH (09:00)
[2021-05-07] MEDS ORDERED: MONTELUKAST 10 MG TAB PO SCH (09:00)
--- NOTE | 2021-05-07 10:30 | P.HPIM ---
History of Present Illness 41-year-old female with past medical history of gastroparesis came in with compensative nausea vomiting and epigastric abdominal pain moderate severity 7/10 all of these symptoms resolved at this time patient was also having hypocalcemia because of which patient was admitted patient to calcium is around 6.2corrected calcium is around 7.8 which is close to within normal notes although patient received calcium gluconate. Patient's symptoms at this time resolved the patient was also hypokalemic and received potassium supplementation present potassium is on 5.4 because of hemolysis. Patient is clinically doing well at this time will be discharged today. REVIEW OF SYSTEMS: CONSTITUTIONAL: No fever, no malaise, no fatigue. HEENT: No recent visual problems or hearing problems. Denied any sore throat. CARDIOVASCULAR: No chest pain, orthopnea, PND, no palpitations, no syncope. PULMONARY: No shortness of breath, no cough, no hemoptysis. GASTROINTESTINAL: As mentioned in HPI NEUROLOGICAL: No headaches, no weakness, no numbness. HEMATOLOGICAL: Denies any bleeding or petechiae. GENITOURINARY: Denies any burning micturition, frequency, or urgency. MUSCULOSKELETAL/RHEUMATOLOGICAL: Denies any joint pain, swelling, or any muscle pain. ENDOCRINE: Denies any polyuria or polydipsia. The rest of the 14-point review of systems is negative. PHYSICAL EXAMINATION: GENERAL: The patient is alert and oriented x3, not in any acute distress. Well developed, well nourished. HEENT: Pupils are round and equally reacting to light. EOMI. No scleral icterus. No conjunctival pallor. Normocephalic, atraumatic. No pharyngeal erythema. No thyromegaly. CARDIOVASCULAR: S1 and S2 present. No murmurs, rubs, or gallops. PULMONARY: Chest is clear to auscultation, no wheezing or crackles. ABDOMEN: Soft, nontender, nondistended, normoactive bowel sounds. No palpable organomegaly. MUSCULOSKELETAL: No joint swelling or deformity. EXTREMITIES: No cyanosis, clubbing, or pedal edema. NEUROLOGICAL: Gross neurological examination did not reveal any focal deficits. SKIN: No rashes. Assessment and plan - nausea vomiting probably secondary to her gastroparesis or gastritis patient symptoms resolved at this time patient will be discharged if she can tolerate diet well. -Hypokalemia potassium was supplemented -Noniron gap and bulk acidosis secondary to hyperchloremia -Hypocalcemia probably secondary to poor protein intake patient was discharged on calcium carbonate on daily basis. Patient was hyponatremic yesterday. She present calcium is around 9.2 patient was given calcium gluconate and her albumin did improve 0.2 asthma History of DVT in the past presently not on any anti-coagulation -Gastric esophageal reflux disease -History of idiopathic gastroparesis, patient has gastric pacemaker -Hypothyroidism -Depression Patient will be discharged today patient was started on diet. Past Medical History Past Medical History: Deep Vein Thrombosis (DVT), GERD/Reflux, Pulmonary Embolus (PE), Thyroid Disorder Additional Past Medical History / Comment(s): Idiopathic gastroparesis, takes little in orally-has J tube for feedings and gastric stimulator- chronic abdominal pain, R pulmonary embolism -2017, dvt R upper extremity 2018, pancreatitis once in 2017-thought stone somewhere, hypothyroid, chronic anemia, sinus problems, migraines History of Any Multi-Drug Resistant Organisms: VRE Date of last positivie culture/infection: 08/01/18 MDRO Source:: VRE URINE Past Surgical History: Section, Cholecystectomy, Hernia Repair, Orthopedic Surgery, Tonsillectomy Additional Past Surgical History / Comment(s): Gastric pacer with removal in spring 2017, J tube, gastric stimulator, x3, 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 Mother Family Medical History: No Reported History Additional Family Medical History / Comment(s): Mother is 58yrs old. Medications and Allergies Home Medications Medication Instructions Recorded Confirmed Type Montelukast Chew [Singulair chew] 10 mg PO DAILY 02/02/18 05/06/21 History Prucalopride Succinate [Motegrity] 2 mg PO DAILY 01/14/19 05/06/21 History oxyCODONE HCL [oxyCODONE HCL (IR)] 10 mg PO Q8H PRN 04/20/19 05/06/21 History Linaclotide [Linzess] 290 mcg PO DAILY PRN 05/24/19 05/06/21 History Tegaserod Hydrogen Maleate 6 mg PO AC-BID 05/24/19 05/06/21 History [Zelnorm] Lansoprazole 30 mg PO BID 08/27/19 05/06/21 History Levothyroxine Sodium [Synthroid] 100 mcg PO DAILY 10/04/19 05/06/21 History Aspirin 81 mg PO DAILY 30 Days chewable 10/16/19 05/06/21 Rx SUMAtriptan SUCCINATE [Imitrex] 100 mg PO BID PRN 05/20/20 05/06/21 History Topiramate [Trokendi Xr] 50 mg PO HS 10/07/20 05/06/21 History Ondansetron Odt [Zofran Odt] 8 mg PO Q8HR PRN 05/03/21 05/06/21 History Promethazine Vc-Codeine Sushma 5 ml PO Q6H PRN 05/03/21 05/06/21 History Zipsor 25mg 25 mg PO TID 05/03/21 05/06/21 History Calcium Carbonate [Calcium] 600 mg PO DAILY #30 tablet 05/07/21 Rx Allergies Allergy/AdvReac Type Severity Reaction Status Date / Time metoclopramide [From Reglan] AdvReac Mild jittery Verified 05/06/21 18:10 prochlorperazine AdvReac Mild JITTERY Verified 05/06/21 18:10 [From Compazine] Physical Exam Vitals: Vital Signs Temp Pulse Pulse Resp BP BP Pulse Ox 05/07/21 07:10 97.6 F 71 16 121/76 97 05/07/21 01:31 97.7 F 61 16 117/71 98 05/06/21 21:35 98.2 F 67 16 126/81 98 05/06/21 17:47 98 F 84 18 115/76 98 Intake and Output 05/06/21 05/07/21 05/07/21 22:59 06:59 14:59 Other: # Voids 2 Weight 77.111 kg Results CBC & Chem 7: 05/07/21 07:01 05/07/21 07:01 Labs: Abnormal Lab Results - Last 24 Hours (Table) 05/06/21 05/07/21 Range/Units 18:10 07:01 Potassium 3.3 L 5.4 H (3.5-5.1) mmol/L Chloride 120 H 115 H (98-107) mmol/L Carbon Dioxide 16 L 20 L (22-30) mmol/L Glucose 69 L (74-99) mg/dL Calcium 6.2 L* (8.4-10.2) mg/dL ALT 35 H (4-34) U/L Total Protein 4.3 L 5.8 L (6.3-8.2) g/dL Albumin 2.2 L 3.2 L (3.5-5.0) g/dL
--- NOTE | 2021-05-07 10:31 | P.DS ---
Providers Date of admission: 05/06/21 19:59 Attending physician: Antwon Teresa Primary care physician: [facility] Course: Refer to my history of present illness for further details Patient Condition at Discharge: Stable Plan - Discharge Summary New Discharge Prescriptions: New Calcium Carbonate [Calcium] 600 mg PO DAILY #30 tablet No Action Montelukast Chew [Singulair chew] 10 mg PO DAILY Prucalopride Succinate [Motegrity] 2 mg PO DAILY oxyCODONE HCL [oxyCODONE HCL (IR)] 10 mg PO Q8H PRN PRN Reason: Pain Tegaserod Hydrogen Maleate [Zelnorm] 6 mg PO AC-BID Linaclotide [Linzess] 290 mcg PO DAILY PRN PRN Reason: Constipation Lansoprazole 30 mg PO BID Levothyroxine Sodium [Synthroid] 100 mcg PO DAILY Aspirin 81 mg PO DAILY 30 Days chewable SUMAtriptan SUCCINATE [Imitrex] 100 mg PO BID PRN PRN Reason: Migraine Headache Ondansetron Odt [Zofran Odt] 8 mg PO Q8HR PRN PRN Reason: Nausea Zipsor 25mg 25 mg PO TID Topiramate [Trokendi Xr] 50 mg PO HS Promethazine Vc-Codeine Sushma 5 ml PO Q6H PRN PRN Reason: Nausea Discharge Medication List Montelukast Chew [Singulair chew] 10 mg PO DAILY 02/02/18 [History] Prucalopride Succinate [Motegrity] 2 mg PO DAILY 01/14/19 [History] oxyCODONE HCL [oxyCODONE HCL (IR)] 10 mg PO Q8H PRN 04/20/19 [History] Linaclotide [Linzess] 290 mcg PO DAILY PRN 05/24/19 [History] Tegaserod Hydrogen Maleate [Zelnorm] 6 mg PO AC-BID 05/24/19 [History] Lansoprazole 30 mg PO BID 08/27/19 [History] Levothyroxine Sodium [Synthroid] 100 mcg PO DAILY 10/04/19 [History] Aspirin 81 mg PO DAILY 30 Days chewable 10/16/19 [Rx] SUMAtriptan SUCCINATE [Imitrex] 100 mg PO BID PRN 05/20/20 [History] Topiramate [Trokendi Xr] 50 mg PO HS 10/07/20 [History] Ondansetron Odt [Zofran Odt] 8 mg PO Q8HR PRN 05/03/21 [History] Promethazine Vc-Codeine Sushma 5 ml PO Q6H PRN 05/03/21 [History] Zipsor 25mg 25 mg PO TID 05/03/21 [History] Calcium Carbonate [Calcium] 600 mg PO DAILY #30 tablet 05/07/21 [Rx] Follow up Appointment(s)/Referral(s): Karthikeyan Pedro MD [Primary Care Provider] - 3 Days Discharge Disposition: HOME SELF-CARE
[2021-05-07] MEDS ORDERED: HYDROmorphone 1 MG/ML 1 ML SYRINGE IVP PRN (12:11)
[2021-05-07 14:44] VITALS: BP 123/83; PULSE 89; TEMP 98.3
[2021-05-07] MEDS ORDERED: TOPIRAMATE 25 MG TAB PO SCH (21:00)
[2021-05-08] MEDS ORDERED: PANTOPRAZOLE 40 MG TABLET PO SCH (07:30)
== END 2021-05-07 15:49 | disposition home or self-care (01) ==
LOC: EC 17:45 → 6NMEDSUR 19:59
PROVIDERS: ADMIT Hospitalist; ATTEND Hospitalist
DX: R11.2 Nausea with vomiting, unspecified (principal); E83.51 Hypocalcemia; E87.6 Hypokalemia; E87.8 Other disorders of electrolyte and fluid balance, not elsewhere classified; E87.1 Hypo-osmolality and hyponatremia; K21.9 Gastro-esophageal reflux disease without esophagitis; E03.9 Hypothyroidism, unspecified; F32.A Depression, unspecified; K31.84 Gastroparesis; G43.909 Migraine, unspecified, not intractable, without status migrainosus; D64.9 Anemia, unspecified; Z20.822 Contact with and (suspected) exposure to COVID-19; Z90.49 Acquired absence of other specified parts of digestive tract; Z86.718 Personal history of other venous thrombosis and embolism; Z86.711 Personal history of pulmonary embolism; Z16.24 Resistance to multiple antibiotics; Z79.82 Long term (current) use of aspirin; Z79.899 Other long term (current) drug therapy; Z79.890 Hormone replacement therapy; Z88.8 Allergy status to other drugs, medicaments and biological substances; Z96.82 Presence of neurostimulator; Z82.49 Family history of ischemic heart disease and other diseases of the circulatory system; Z98.0 Intestinal bypass and anastomosis status
CPT/HCPCS: 96376 ×2; 96375 ×2; 96361; 96374; 99284; 36415; 80053 ×2; 83690; 85025 ×2; 81003; 87635; G0378 ×2; J2060; J1200 ×2; J1610; J2405 ×2; J1170 ×3; J0610; C9113 ×2

== ENCOUNTER 2021-05-16 22:51 | Emergency (ER) | payer BC ==
[2021-05-16 22:55] VITALS: BP 119/59; PULSE 112; RESP 20; TEMP 99.4
[2021-05-17] MEDS: SODIUM CHLORIDE 0.9% 500 ML 500 ML IV SCH ×2 (01:14→01:38)
[2021-05-17] MEDS ORDERED: ONDANSETRON 4 MG/2 ML VIAL IVP STA (01:19)
--- NOTE | 2021-05-17 02:14 | ED ---
General Adult HPI - General Chief complaint: Fever Stated complaint: Fever Time Seen by Provider: 05/17/21 00:07 Source: patient Mode of arrival: ambulatory Limitations: no limitations - History of Present Illness Initial comments: 41-year-old female patient with past medical history significant for gastroparesis, has a G-tube, left upper chest port due to poor venous access presents for evaluation of fever. States she developed a fever this evening a round 6 PM. Did take down on Motrin. She was advised to come to the emergency department whenever she has a fever due to possible poor infection. She states she does feel nauseated. Denies any cough or congestion. Denies any chest pain or abdominal pain. Denies any back pain. States her urine has been dark in color. She does give her self fluids at home. She is vaccinated for COVID-19. Does have flu vaccine. Patient denies any recent rash, shortness of breath, diarrhea, constipation, back pain, numbness, tingling, dizziness, weakness, hematuria, dysuria, urinary urgency, urinary frequency, headache, visual changes, or any other complaints. - Related Data Home Medications Medication Instructions Recorded Confirmed Montelukast Chew [Singulair chew] 10 mg PO DAILY 02/02/18 05/06/21 Prucalopride Succinate [Motegrity] 2 mg PO DAILY 01/14/19 05/06/21 oxyCODONE HCL [oxyCODONE HCL (IR)] 10 mg PO Q8H PRN 04/20/19 05/06/21 Linaclotide [Linzess] 290 mcg PO DAILY PRN 05/24/19 05/06/21 Tegaserod Hydrogen Maleate 6 mg PO AC-BID 05/24/19 05/06/21 [Zelnorm] Lansoprazole 30 mg PO BID 08/27/19 05/06/21 Levothyroxine Sodium [Synthroid] 100 mcg PO DAILY 10/04/19 05/06/21 SUMAtriptan SUCCINATE [Imitrex] 100 mg PO BID PRN 05/20/20 05/06/21 Topiramate [Trokendi Xr] 50 mg PO HS 10/07/20 05/06/21 Ondansetron Odt [Zofran Odt] 8 mg PO Q8HR PRN 05/03/21 05/06/21 Promethazine Vc-Codeine Sushma 5 ml PO Q6H PRN 05/03/21 05/06/21 Zipsor 25mg 25 mg PO TID 05/03/21 05/06/21 Previous Rx's Medication Instructions Recorded Aspirin 81 mg PO DAILY 30 Days chewable 10/16/19 Calcium Carbonate [Calcium] 600 mg PO DAILY #30 tablet 05/07/21 Allergies Allergy/AdvReac Type Severity Reaction Status Date / Time metoclopramide [From Reglan] AdvReac Mild jittery Verified 05/16/21 22:54 prochlorperazine AdvReac Mild JITTERY Verified 05/16/21 22:54 [From Compazine] Review of Systems ROS Statement: Those systems with pertinent positive or pertinent negative responses have been documented in the HPI. ROS Other: All systems not noted in ROS Statement are negative. Past Medical History Past Medical History: Deep Vein Thrombosis (DVT), GERD/Reflux, Pulmonary Embolus (PE), Thyroid Disorder Additional Past Medical History / Comment(s): Idiopathic gastroparesis, takes little in orally-has J tube for feedings and gastric stimulator- chronic abdominal pain, R pulmonary embolism , dvt R upper extremity 2018, pancreatitis once in 2017-thought stone somewhere, hypothyroid, chronic anemia, sinus problems, migraines History of Any Multi-Drug Resistant Organisms: VRE Date of last positivie culture/infection: 08/01/18 MDRO Source:: VRE URINE Past Surgical History: Section, Cholecystectomy, Hernia Repair, Orthopedic Surgery, Tonsillectomy Additional Past Surgical History / Comment(s): Gastric pacer with removal in spring 2017, J tube, gastric stimulator, x3, 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 Mother Family Medical History: No Reported History Additional Family Medical History / Comment(s): Mother is 58yrs old. General Exam Limitations: no limitations General appearance: alert, in no apparent distress, other (This is a well- developed, well-nourished adult female in no acute distress) Eye exam: Present: normal appearance, PERRL, EOMI. Absent: scleral icterus, conjunctival injection, periorbital swelling ENT exam: Present: normal exam, normal oropharynx, mucous membranes moist Respiratory exam: Present: normal lung sounds bilaterally. Absent: respiratory distress, wheezes, rales, rhonchi, stridor Cardiovascular Exam: Present: normal rhythm, tachycardia, normal heart sounds. Absent: systolic murmur, diastolic murmur, rubs, gallop, clicks GI/Abdominal exam: Present: soft, normal bowel sounds, other (G-tube to the left upper abdomen, no surrounding erythema or drainage from the insertion site.). Absent: distended, tenderness, guarding, rebound, rigid Neurological exam: Present: alert, oriented X3, CN II-XII intact Psychiatric exam: Present: normal affect, normal mood Skin exam: Present: warm, dry, intact, normal color. Absent: rash Course Vital Signs 05/16/21 22:52 Temperature 99.4 F Pulse Rate 112 H Respiratory 20 Rate Blood Pressure 119/59 O2 Sat by Pulse 99 Oximetry Medical Decision Making - Medical Decision Making 41-year-old female patient presented for evaluation of fever. Physical examination is unremarkable. Lungs are clear to auscultation. Abdomen soft and nontender. No evidence for infection around the G-tube site. Labs reviewed and did reveal a normal white blood cell count which tested negative for influenza and COVID-19. Urinalysis negative for infection. She will be discharged follow up with the primary care physician for recheck in 1-2 days. Return parameters were discussed in detail. They verbalize understanding and agree with this plan. My attending is Dr. Castro. - Lab Data Result diagrams: 05/17/21 02:47 05/17/21 02:47 Lab Results 05/17/21 05/17/21 05/17/21 Range/Units 00:35 00:35 02:47 WBC 7.4 (3.8-10.6) k/uL RBC 4.41 (3.80-5.40) m/uL Hgb 13.0 (11.4-16.0) gm/dL Hct 39.3 (34.0-46.0) % MCV 89.0 (80.0-100.0) fL MCH 29.6 (25.0-35.0) pg MCHC 33.2 (31.0-37.0) g/dL RDW 12.9 (11.5-15.5) % Plt Count 250 (150-450) k/uL MPV 6.9 Neutrophils % 53 % Lymphocytes % 31 % Monocytes % 9 % Eosinophils % 4 % Basophils % 1 % Neutrophils # 3.9 (1.3-7.7) k/uL Lymphocytes # 2.3 (1.0-4.8) k/uL Monocytes # 0.6 (0-1.0) k/uL Eosinophils # 0.3 (0-0.7) k/uL Basophils # 0.1 (0-0.2) k/uL Sodium (137-145) mmol/L Potassium (3.5-5.1) mmol/L Chloride (98-107) mmol/L Carbon Dioxide (22-30) mmol/L Anion Gap mmol/L BUN (7-17) mg/dL Creatinine (0.52-1.04) mg/dL Est GFR (CKD-EPI)AfAm (>60 ml/min/1.73 sqM) Est GFR (CKD-EPI)NonAf (>60 ml/min/1.73 sqM) Glucose (74-99) mg/dL Plasma Lactic Acid Frank (0.7-2.0) mmol/L Calcium (8.4-10.2) mg/dL Total Bilirubin (0.2-1.3) mg/dL AST (14-36) U/L ALT (4-34) U/L Alkaline Phosphatase (38-126) U/L Total Protein (6.3-8.2) g/dL Albumin (3.5-5.0) g/dL Urine Color Urine Appearance (Clear) Urine pH (5.0-8.0) Ur Specific [place] (1.001-1.035) Urine Protein (Negative) Urine Glucose (UA) (Negative) Urine Ketones (Negative) Urine Blood (Negative) Urine Nitrite (Negative) Urine Bilirubin (Negative) Urine Urobilinogen (<2.0) mg/dL Ur Leukocyte Esterase (Negative) Coronavirus (PCR) Not Detected (Not Detectd) Influenza Type A RNA Not Detected (Not Detectd) Influenza Type B (PCR) Not Detected (Not Detectd) 05/17/21 05/17/21 05/17/21 Range/Units 02:47 02:47 03:19 WBC (3.8-10.6) k/uL RBC (3.80-5.40) m/uL Hgb (11.4-16.0) gm/dL Hct (34.0-46.0) % MCV (80.0-100.0) fL MCH (25.0-35.0) pg MCHC (31.0-37.0) g/dL RDW (11.5-15.5) % Plt Count (150-450) k/uL MPV Neutrophils % % Lymphocytes % % Monocytes % % Eosinophils % % Basophils % % Neutrophils # (1.3-7.7) k/uL Lymphocytes # (1.0-4.8) k/uL Monocytes # (0-1.0) k/uL Eosinophils # (0-0.7) k/uL Basophils # (0-0.2) k/uL Sodium 135 L (137-145) mmol/L Potassium 3.1 L (3.5-5.1) mmol/L Chloride 104 (98-107) mmol/L Carbon Dioxide 23 (22-30) mmol/L Anion Gap 8 mmol/L BUN <2 L (7-17) mg/dL Creatinine 0.67 (0.52-1.04) mg/dL Est GFR (CKD-EPI)AfAm >90 (>60 ml/min/1.73 sqM) Est GFR (CKD-EPI)NonAf >90 (>60 ml/min/1.73 sqM) Glucose 91 (74-99) mg/dL Plasma Lactic Acid Frank <0.5 L (0.7-2.0) mmol/L Calcium 8.4 (8.4-10.2) mg/dL Total Bilirubin 0.5 (0.2-1.3) mg/dL AST 25 (14-36) U/L ALT 87 H (4-34) U/L Alkaline Phosphatase 126 (38-126) U/L Total Protein 5.6 L (6.3-8.2) g/dL Albumin 3.2 L (3.5-5.0) g/dL Urine Color Light Yellow Urine Appearance Clear (Clear) Urine pH 5.5 (5.0-8.0) Ur Specific [place] 1.007 (1.001-1.035) Urine Protein Negative (Negative) Urine Glucose (UA) Negative (Negative) Urine Ketones 1+ H (Negative) Urine Blood Negative (Negative) Urine Nitrite Negative (Negative) Urine Bilirubin Negative (Negative) Urine Urobilinogen <2.0 (<2.0) mg/dL Ur Leukocyte Esterase Negative (Negative) Coronavirus (PCR) (Not Detectd) Influenza Type A RNA (Not Detectd) Influenza Type B (PCR) (Not Detectd) Disposition Clinical Impression: Fever Disposition: HOME SELF-CARE Condition: Good Instructions (If sedation given, give patient instructions): Fever in Adults (ED) Additional Instructions: Follow up with your primary care physician for recheck in 1-2 days. Return to the emergency department for any new, worsening, or concerning symptoms. Is patient prescribed a controlled substance at d/c from ED?: No Referrals: Karthikeyan Pedro MD [Primary Care Provider] - 1-2 days Time of Disposition: 03:38
[2021-05-17] MEDS ORDERED: HYDROmorphone 1 MG/ML 1 ML SYRINGE IVP STA (02:37)
[2021-05-17 02:55] LABS: Basophils # (A) 0.1 k/uL (0-0.2); Basophils % (A) 1 %; Eosinophils # (A) 0.3 k/uL (0-0.7); Eosinophils % (A) 4 %; HCT 39.3 % (34.0-46.0); Lymphocytes # (A) 2.3 k/uL (1.0-4.8); Lymphocytes % (A) 31 %; MCH 29.6 pg (25.0-35.0); MCHC 33.2 g/dL (31.0-37.0); Mean Platelet Volume 6.9; Monocytes # (A) 0.6 k/uL (0-1.0); Monocytes % (A) 9 %; Neutrophils # (A) 3.9 k/uL (1.3-7.7); Neutrophils % (A) 53 %; Platelet Count 250 k/uL (150-450); RBC 4.41 m/uL (3.80-5.40); RDW 12.9 % (11.5-15.5); WBC 7.4 k/uL (3.8-10.6)
[2021-05-17 03:06] LABS: ALT 87 U/L (4-34); AST 25 U/L (14-36); African American GFR (CKD) >90 (>60 ml/min/1.73 sqM); Albumin 3.2 g/dL (3.5-5.0); Alkaline Phosphatase 126 U/L (38-126); Anion Gap 8 mmol/L; Blood Urea Nitrogen <2 mg/dL (7-17); Calcium 8.4 mg/dL (8.4-10.2); Carbon Dioxide 23 mmol/L (22-30); Chloride 104 mmol/L (98-107); Glucose 91 mg/dL (74-99); Non-African American GFR(CKD) >90 (>60 ml/min/1.73 sqM); Potassium 3.1 mmol/L (3.5-5.1); Sodium 135 mmol/L (137-145); Total Bilirubin 0.5 mg/dL (0.2-1.3); Total Protein 5.6 g/dL (6.3-8.2)
[2021-05-17] MEDS ORDERED: POTASSIUM CHLORIDE ER 20 MEQ TAB.ER PO STA (03:15)
[2021-05-17 03:35] LABS: Appearance,Urine Clear (Clear); Bilirubin,Urine Negative (Negative); Blood,Urine Negative (Negative); Color,Urine Light Yellow; Glucose,Urine (UA) Negative (Negative); Ketones,Urine 1+ (Negative); Leukocyte Esterase,Urine Negative (Negative); Nitrite,Urine Negative (Negative); PH, Urine 5.5 (5.0-8.0); Protein,Urine Negative (Negative); Specific Gravity,Urine 1.007 (1.001-1.035); Urobilinogen,Urine <2.0 mg/dL (<2.0)
== END 2021-05-17 04:37 | disposition home or self-care (01) ==
LOC: EC 22:51
DX: R50.9 Fever, unspecified (principal); K21.9 Gastro-esophageal reflux disease without esophagitis; E07.9 Disorder of thyroid, unspecified; Z88.8 Allergy status to other drugs, medicaments and biological substances; Z79.890 Hormone replacement therapy; Z20.822 Contact with and (suspected) exposure to COVID-19; Z79.899 Other long term (current) drug therapy
CPT/HCPCS: 36415; 80053; 83605; 85025; 81003; 87040; 87502; 87635; 99283; 96374; 96375; 96361; J2405; J1170

== ENCOUNTER 2021-05-22 18:42 | Emergency (ER) | payer BC ==
[2021-05-22 18:54] VITALS: TEMP 99.3
[2021-05-22 19:39] LABS: Basophils # (A) 0.1 k/uL (0-0.2); Basophils % (A) 1 %; Eosinophils # (A) 0.1 k/uL (0-0.7); Eosinophils % (A) 1 %; HCT 53.6 % (34.0-46.0); Lymphocytes # (A) 1.8 k/uL (1.0-4.8); Lymphocytes % (A) 21 %; MCH 29.5 pg (25.0-35.0); MCHC 33.5 g/dL (31.0-37.0); MCV 88.3 fL (80.0-100.0); Mean Platelet Volume 6.8; Monocytes # (A) 0.3 k/uL (0-1.0); Monocytes % (A) 3 %; Neutrophils # (A) 6.2 k/uL (1.3-7.7); Neutrophils % (A) 73 %; RBC 6.07 m/uL (3.80-5.40); RDW 13.4 % (11.5-15.5); WBC 8.6 k/uL (3.8-10.6)
[2021-05-22 19:46] LABS: ALT 26 U/L (4-34); AST 24 U/L (14-36); African American GFR (CKD) >90 (>60 ml/min/1.73 sqM); Albumin 5.1 g/dL (3.5-5.0); Alkaline Phosphatase 131 U/L (38-126); Anion Gap 18 mmol/L; Blood Urea Nitrogen 15 mg/dL (7-17); Calcium 10.2 mg/dL (8.4-10.2); Carbon Dioxide 16 mmol/L (22-30); Chloride 108 mmol/L (98-107); Glucose 125 mg/dL (74-99); Magnesium 2.2 mg/dL (1.6-2.3); Non-African American GFR(CKD) >90 (>60 ml/min/1.73 sqM); Sodium 142 mmol/L (137-145); Total Bilirubin 0.6 mg/dL (0.2-1.3); Total Protein 8.9 g/dL (6.3-8.2)
--- NOTE | 2021-05-22 19:46 | XR ---
EXAMINATION TYPE: XR chest 2V DATE OF EXAM: 05/22/2021 COMPARISON: 03/06/2021 HISTORY: Chest pain TECHNIQUE: FINDINGS: Heart and mediastinum are normal. Lungs are clear. Diaphragm is normal. Costophrenic angles are clear. There is left-sided central venous catheter with tip in the superior vena cava. Bony thor ax is intact. IMPRESSION: No active cardiopulmonary disease. Normal heart. No change.
[2021-05-22 19:49] LABS: Potassium 4.4 mmol/L (3.5-5.1)
[2021-05-22 20:08] LABS: INR 0.9 (<1.2); Partial Thromboplastin Time 25.4 sec (22.0-30.0); Prothrombin Time 10.1 sec (9.0-12.0)
[2021-05-22 20:32] LABS: HGB 17.9 gm/dL (11.4-16.0); Platelet Count 521 k/uL (150-450)
[2021-05-22] MEDS ORDERED: SODIUM CHLORIDE 0.9% 500 ML 500 ML IV STA (22:15)
[2021-05-22] MEDS ORDERED: SODIUM CHLORIDE 0.9% 1,000 ML IV SCH (22:15)
[2021-05-22] MEDS ORDERED: SODIUM CHLORIDE 0.9% 1,000 ML IV STA (22:15)
[2021-05-22] MEDS ORDERED: diphenhydrAMINE 50 MG/ML 1 ML VIAL IVP STA (22:38)
[2021-05-22] MEDS ORDERED: HYDROmorphone 1 MG/ML 1 ML SYRINGE IVP STA (22:38)
--- NOTE | 2021-05-22 22:40 | ED ---
Weakness HPI - General Chief complaint: Chest Pain Stated complaint: chest pain Time Seen by Provider: 05/22/21 22:06 Source: patient, RN notes reviewed, old records reviewed Mode of arrival: ambulatory Limitations: no limitations - History of Present Illness Initial comments: This is a 41-year-old female to the ER today for evaluation. Patient presents today for evaluation regards to not feeling well some weakness and some dizziness and lightheadedness some chest pain. Patient is on blood thinners but does have some underlying concern for PE. She has no provoking factors recently. No recent procedures or surgery. Patient denying any current fevers which has not feeling well. Symptoms for the last day day and a half. Worsening. Mild nausea no active vomiting. No diarrhea. Patient is well-known to this facility for multiple different significant medical problems. MD Complaint: generalized weakness, lack of energy (Dizziness lightheadedness) -: hour(s) Location: generalized Severity: moderate Severity scale (1-10): 7 Consistency: constant Improves with: none Worsens with: none Context: recent illness, history of similar Associated Symptoms: chest pain, nausea/vomiting, shortness of breath - Related Data Home Medications Medication Instructions Recorded Confirmed Montelukast Chew [Singulair chew] 10 mg PO DAILY 02/02/18 05/06/21 Prucalopride Succinate [Motegrity] 2 mg PO DAILY 01/14/19 05/06/21 oxyCODONE HCL [oxyCODONE HCL (IR)] 10 mg PO Q8H PRN 04/20/19 05/06/21 Linaclotide [Linzess] 290 mcg PO DAILY PRN 05/24/19 05/06/21 Tegaserod Hydrogen Maleate 6 mg PO AC-BID 05/24/19 05/06/21 [Zelnorm] Lansoprazole 30 mg PO BID 08/27/19 05/06/21 Levothyroxine Sodium [Synthroid] 100 mcg PO DAILY 10/04/19 05/06/21 SUMAtriptan SUCCINATE [Imitrex] 100 mg PO BID PRN 05/20/20 05/06/21 Topiramate [Trokendi Xr] 50 mg PO HS 10/07/20 05/06/21 Ondansetron Odt [Zofran Odt] 8 mg PO Q8HR PRN 05/03/21 05/06/21 Promethazine Vc-Codeine Sushma 5 ml PO Q6H PRN 05/03/21 05/06/21 Zipsor 25mg 25 mg PO TID 05/03/21 05/06/21 Previous Rx's Medication Instructions Recorded Aspirin 81 mg PO DAILY 30 Days chewable 10/16/19 Calcium Carbonate [Calcium] 600 mg PO DAILY #30 tablet 05/07/21 Allergies Allergy/AdvReac Type Severity Reaction Status Date / Time metoclopramide [From Reglan] AdvReac Mild jittery Verified 05/22/21 18:51 prochlorperazine AdvReac Mild JITTERY Verified 05/22/21 18:51 [From Compazine] Review of Systems ROS Statement: Those systems with pertinent positive or pertinent negative responses have been documented in the HPI. ROS Other: All systems not noted in ROS Statement are negative. Past Medical History Past Medical History: Deep Vein Thrombosis (DVT), GERD/Reflux, Pulmonary Embolus (PE), Thyroid Disorder Additional Past Medical History / Comment(s): Idiopathic gastroparesis, takes little in orally-has J tube for feedings and gastric stimulator- chronic abdominal pain, R pulmonary embolism -2017, dvt R upper extremity 2018, pancreatitis once in 2018-thought stone somewhere, hypothyroid, chronic anemia, sinus problems, migraines History of Any Multi-Drug Resistant Organisms: VRE Date of last positivie culture/infection: 08/01/18 MDRO Source:: VRE URINE Past Surgical History: Section, Cholecystectomy, Hernia Repair, Orthopedic Surgery, Tonsillectomy Additional Past Surgical History / Comment(s): Gastric pacer with removal in spring 2017, J tube, gastric stimulator, x3, 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 Mother Family Medical History: No Reported History Additional Family Medical History / Comment(s): Mother is 58yrs old. General Exam Limitations: no limitations General appearance: alert, in no apparent distress Head exam: Present: atraumatic, normocephalic, normal inspection Eye exam: Present: normal appearance, PERRL, EOMI. Absent: scleral icterus, conjunctival injection, periorbital swelling ENT exam: Present: normal exam, mucous membranes dry Neck exam: Present: normal inspection. Absent: tenderness, meningismus, lymphadenopathy Respiratory exam: Present: normal lung sounds bilaterally. Absent: respiratory distress, wheezes, rales, rhonchi, stridor Cardiovascular Exam: Present: normal rhythm, tachycardia, normal heart sounds. Absent: systolic murmur, diastolic murmur, rubs, gallop, clicks GI/Abdominal exam: Present: soft, normal bowel sounds. Absent: distended, tenderness, guarding, rebound, rigid Extremities exam: Present: normal inspection, full ROM, normal capillary refill. Absent: tenderness, pedal edema, joint swelling, calf tenderness Back exam: Present: normal inspection Neurological exam: Present: alert, oriented X3, CN II-XII intact Psychiatric exam: Present: normal affect, normal mood Skin exam: Present: warm, dry, intact, normal color. Absent: rash Course Vital Signs 05/22/21 05/22/21 05/22/21 18:51 22:04 23:51 Temperature 99.3 F Pulse Rate 108 H 84 90 Respiratory 20 18 16 Rate Blood Pressure 133/83 115/81 129/77 O2 Sat by Pulse 99 98 97 Oximetry - Reevaluation(s) Reevaluation #1: 05/22/21 23:01 Medical record is reviewed Reevaluation #2: 05/23/21 00:20 Patient feeling much improved symptomatically treatment here in the ER Reevaluation #3: 05/23/21 00:20 Patient informed results and questions have been answered Reevaluation #4: 05/23/21 00:20 Patient is in no acute Distress has no pain EKG Findings - EKG Comments: EKG Findings:: EKG shows sinus tachycardia rate of 105 NE 124 QRS 86 QTc 385 Medical Decision Making - Medical Decision Making 41 female well-known to this ER facility coming in for evaluation of chest pain weakness lightheadedness and dizziness. Significant dehydration on lab evaluation. Patient given adequate resuscitation here in the ER symptomatically management and can be discharged home - Lab Data Result diagrams: 05/22/21 19:28 05/22/21 19:21 Lab Results 05/22/21 05/22/21 05/22/21 Range/Units 19:21 19:21 19:21 WBC (3.8-10.6) k/uL RBC (3.80-5.40) m/uL Hgb (11.4-16.0) gm/dL Hct (34.0-46.0) % MCV (80.0-100.0) fL MCH (25.0-35.0) pg MCHC (31.0-37.0) g/dL RDW (11.5-15.5) % Plt Count (150-450) k/uL MPV Neutrophils % % Lymphocytes % % Monocytes % % Eosinophils % % Basophils % % Neutrophils # (1.3-7.7) k/uL Lymphocytes # (1.0-4.8) k/uL Monocytes # (0-1.0) k/uL Eosinophils # (0-0.7) k/uL Basophils # (0-0.2) k/uL PT 10.1 (9.0-12.0) sec INR 0.9 (<1.2) APTT 25.4 (22.0-30.0) sec D-Dimer 0.29 (<0.60) mg/L FEU Sodium 142 (137-145) mmol/L Potassium 4.4 (3.5-5.1) mmol/L Chloride 108 H (98-107) mmol/L Carbon Dioxide 16 L (22-30) mmol/L Anion Gap 18 mmol/L BUN 15 (7-17) mg/dL Creatinine 0.76 (0.52-1.04) mg/dL Est GFR (CKD-EPI)AfAm >90 (>60 ml/min/1.73 sqM) Est GFR (CKD-EPI)NonAf >90 (>60 ml/min/1.73 sqM) Glucose 125 H (74-99) mg/dL Calcium 10.2 (8.4-10.2) mg/dL Magnesium 2.2 (1.6-2.3) mg/dL Total Bilirubin 0.6 (0.2-1.3) mg/dL AST 24 (14-36) U/L ALT 26 (4-34) U/L Alkaline Phosphatase 131 H (38-126) U/L Troponin I <0.012 (0.000-0.034) ng/mL Total Protein 8.9 H (6.3-8.2) g/dL Albumin 5.1 H (3.5-5.0) g/dL Influenza Type A (PCR) (Not Detectd) Influenza Type B (PCR) (Not Detectd) RSV (PCR) (Not Detectd) SARS-CoV-2 (PCR) (Not Detectd) 05/22/21 05/22/21 Range/Units 19:28 22:45 WBC 8.6 (3.8-10.6) k/uL RBC 6.07 H (3.80-5.40) m/uL Hgb 17.9 H D (11.4-16.0) gm/dL Hct 53.6 H (34.0-46.0) % MCV 88.3 (80.0-100.0) fL MCH 29.5 (25.0-35.0) pg MCHC 33.5 (31.0-37.0) g/dL RDW 13.4 (11.5-15.5) % Plt Count 521 H D (150-450) k/uL MPV 6.8 Neutrophils % 73 % Lymphocytes % 21 % Monocytes % 3 % Eosinophils % 1 % Basophils % 1 % Neutrophils # 6.2 (1.3-7.7) k/uL Lymphocytes # 1.8 (1.0-4.8) k/uL Monocytes # 0.3 (0-1.0) k/uL Eosinophils # 0.1 (0-0.7) k/uL Basophils # 0.1 (0-0.2) k/uL PT (9.0-12.0) sec INR (<1.2) APTT (22.0-30.0) sec D-Dimer (<0.60) mg/L FEU Sodium (137-145) mmol/L Potassium (3.5-5.1) mmol/L Chloride (98-107) mmol/L Carbon Dioxide (22-30) mmol/L Anion Gap mmol/L BUN (7-17) mg/dL Creatinine (0.52-1.04) mg/dL Est GFR (CKD-EPI)AfAm (>60 ml/min/1.73 sqM) Est GFR (CKD-EPI)NonAf (>60 ml/min/1.73 sqM) Glucose (74-99) mg/dL Calcium (8.4-10.2) mg/dL Magnesium (1.6-2.3) mg/dL Total Bilirubin (0.2-1.3) mg/dL AST (14-36) U/L ALT (4-34) U/L Alkaline Phosphatase (38-126) U/L Troponin I (0.000-0.034) ng/mL Total Protein (6.3-8.2) g/dL Albumin (3.5-5.0) g/dL Influenza Type A (PCR) Not Detected (Not Detectd) Influenza Type B (PCR) Not Detected (Not Detectd) RSV (PCR) Not Detected (Not Detectd) SARS-CoV-2 (PCR) Not Detected (Not Detectd) - Radiology Data Radiology results: report reviewed (Chest x-rays negative for acute disease), image reviewed Disposition Clinical Impression: Dehydration, Dizziness Disposition: HOME SELF-CARE Condition: Good Instructions (If sedation given, give patient instructions): Dizziness (ED), De hydration (ED) Is patient prescribed a controlled substance at d/c from ED?: No Referrals: Karthikeyan Pedro MD [Primary Care Provider] - 1-2 days
[2021-05-22 23:39] LABS: Influenza A Not Detected (Not Detectd); Influenza B Not Detected (Not Detectd)
[2021-05-22 23:56] VITALS: BP 129/77; PULSE 90; RESP 16
== END 2021-05-23 00:52 | disposition home or self-care (01) ==
LOC: EC 18:42
DX: E86.0 Dehydration (principal); E07.9 Disorder of thyroid, unspecified; Z79.890 Hormone replacement therapy; Z20.822 Contact with and (suspected) exposure to COVID-19; Z88.8 Allergy status to other drugs, medicaments and biological substances; Z88.9 Allergy status to unspecified drugs, medicaments and biological substances
CPT/HCPCS: 36415; 93005; 85379; 80053; 83735; 84484; 85025; 85610; 85730; 87636; 71046; 99285; 96374; 96375; J1200; J1170

== ENCOUNTER 2021-05-24 18:06 | Emergency (ER) | payer BC ==
[2021-05-24 18:20] VITALS: TEMP 98.2
[2021-05-24] MEDS ORDERED: MORPHINE SULFATE 4 MG/ML SYRINGE IV STA ×2 (18:50→22:50)
[2021-05-24] MEDS ORDERED: ONDANSETRON 4 MG/2 ML VIAL IVP STA (18:50)
--- NOTE | 2021-05-24 19:01 | ED ---
General Adult HPI - General Chief complaint: Chest Pain Stated complaint: port problem Time Seen by Provider: 05/24/21 18:40 Source: patient, RN notes reviewed Mode of arrival: ambulatory Limitations: no limitations - History of Present Illness Initial comments: This is a pleasant 41-year-old female who presents to emergency department complaining of chest discomfort. She was seen here 2 days ago for the same thing and had a workup done. Patient now believes that the discomfort is related to her report. She has a port in her left upper chest which she is been accessing for fluids and antiemetics. With anything through the port she's getting a burning sensation in the area. Patient has had the port in place since March 06 for gastroparesis. No headache, no fever or chills, no changes in vision or hearing, no sore throat or difficulty with speech, no neck pain, no chest pain or shortness of breath, no abdominal pain, no nausea or vomiting, no changes in urination or bowel movements, no numbness or tingling, no extremity pain, no skin rashes or lesions. - Related Data Home Medications Medication Instructions Recorded Confirmed Montelukast Chew [Singulair chew] 10 mg PO DAILY 02/02/18 05/06/21 Prucalopride Succinate [Motegrity] 2 mg PO DAILY 01/14/19 05/06/21 oxyCODONE HCL [oxyCODONE HCL (IR)] 10 mg PO Q8H PRN 04/20/19 05/06/21 Linaclotide [Linzess] 290 mcg PO DAILY PRN 05/24/19 05/06/21 Tegaserod Hydrogen Maleate 6 mg PO AC-BID 05/24/19 05/06/21 [Zelnorm] Lansoprazole 30 mg PO BID 08/27/19 05/06/21 Levothyroxine Sodium [Synthroid] 100 mcg PO DAILY 10/04/19 05/06/21 SUMAtriptan SUCCINATE [Imitrex] 100 mg PO BID PRN 05/20/20 05/06/21 Topiramate [Trokendi Xr] 50 mg PO HS 10/07/20 05/06/21 Ondansetron Odt [Zofran Odt] 8 mg PO Q8HR PRN 05/03/21 05/06/21 Promethazine Vc-Codeine Sushma 5 ml PO Q6H PRN 05/03/21 05/06/21 Zipsor 25mg 25 mg PO TID 05/03/21 05/06/21 Previous Rx's Medication Instructions Recorded Aspirin 81 mg PO DAILY 30 Days chewable 10/16/19 Calcium Carbonate [Calcium] 600 mg PO DAILY #30 tablet 05/07/21 Allergies Allergy/AdvReac Type Severity Reaction Status Date / Time metoclopramide [From Reglan] AdvReac Mild jittery Verified 05/24/21 18:20 prochlorperazine AdvReac Mild JITTERY Verified 05/24/21 18:20 [From Compazine] Review of Systems ROS Statement: Those systems with pertinent positive or pertinent negative responses have been documented in the HPI. ROS Other: All systems not noted in ROS Statement are negative. Past Medical History Past Medical History: Deep Vein Thrombosis (DVT), GERD/Reflux, Pulmonary Embolus (PE), Thyroid Disorder Additional Past Medical History / Comment(s): Idiopathic gastroparesis, takes little in orally-has J tube for feedings and gastric stimulator- chronic abdominal pain, R pulmonary embolism -2017, dvt R upper extremity 2018, pancreatitis once in 2017-thought stone somewhere, hypothyroid, chronic anemia, sinus problems, migraines History of Any Multi-Drug Resistant Organisms: VRE Date of last positivie culture/infection: 08/01/18 MDRO Source:: VRE URINE Past Surgical History: Section, Cholecystectomy, Hernia Repair, Orthopedic Surgery, Tonsillectomy Additional Past Surgical History / Comment(s): Gastric pacer with removal in spring 2017, J tube, gastric stimulator, x3, 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 Mother Family Medical History: No Reported History Additional Family Medical History / Comment(s): Mother is 58yrs old. General Exam Limitations: no limitations General appearance: alert, in no apparent distress Head exam: Present: atraumatic, normocephalic, normal inspection Eye exam: Present: normal appearance, PERRL, EOMI. Absent: scleral icterus, conjunctival injection, periorbital swelling ENT exam: Present: normal exam, normal oropharynx, mucous membranes moist, TM's normal bilaterally, normal external ear exam Neck exam: Present: normal inspection, full ROM. Absent: tenderness, meningismus, lymphadenopathy Respiratory exam: Present: normal lung sounds bilaterally, chest wall tenderness, other (Patient has a port noted in the left upper chest). Absent: respiratory distress, wheezes, rales, rhonchi, stridor, accessory muscle use Cardiovascular Exam: Present: regular rate, normal rhythm, normal heart sounds. Absent: systolic murmur, diastolic murmur, rubs, gallop, clicks GI/Abdominal exam: Present: soft, normal bowel sounds. Absent: distended, tenderness, guarding, rebound, rigid Extremities exam: Present: normal inspection, full ROM, normal capillary refill. Absent: tenderness, pedal edema, joint swelling, calf tenderness Back exam: Present: normal inspection Neurological exam: Present: alert, oriented X3, CN II-XII intact Psychiatric exam: Present: normal affect, normal mood Skin exam: Present: warm, dry, intact, normal color. Absent: rash Course Vital Signs 05/24/21 18:14 Temperature 98.2 F Pulse Rate 102 H Respiratory 20 Rate Blood Pressure 124/88 O2 Sat by Pulse 98 Oximetry - Reevaluation(s) Reevaluation #1: 05/24/21 22:11 Medical record is reviewed Symptoms are improved here in the emergency department Patient is informed of results and questions answered Patient in no distress Chest x-ray read by radiology shows a patent Port-A-Cath Reevaluation #2: 05/24/21 22:48 Medical record is reviewed Symptoms are improved here in the emergency department Patient is informed of results and questions answered Patient in no distress Patient reevaluated is resting comfortable in bed. Patient and her are refusing CT of the chest. EKG Findings - EKG Comments: EKG Findings:: EKG reveals normal sinus rhythm with a rate of 77, normal axis, normal QRS morphology, normal intervals, no acute changes Medical Decision Making - Medical Decision Making Patient was seen here 2 days ago for chest wall pain, possibly related to her port. A workup that day to include d-dimer which was negative. We'll repeat the patient's lab work here today minus the d-dimer. Patient really concerned today about the port itself stating that whenever she infuses something into it she's getting a burning sensation around it. Note that the patient is on anti-coagulation with Arixtra We did have a long discussion weighing the pros and cons of computed tomography scan. In the end they chose to defer this scan. Patient is lucid and able make her own medical decisions. I've no diagnostic reason for the patient to have discomfort when her Port-A-Cath is accessed. All findings were discussed with the patient. All questions answered with both the patient and . Advised to call her specialist tomorrow as well as a primary care physician.Patient was told to return to the ER for any signs or symptoms worsen. Told to return immediately if any other problems arise. All questions answered. Treatment plan discussed. Patient in agreement Every effort has been made to ensure accuracy of this dictation. However, due to the limitations of electronic medical records and dictation devices, errors in charting still occur. 05/24/21 22:49 The resting physician [address] Dr[address] Chapin. Case was discussed. - Lab Data Result diagrams: 05/24/21 21:41 05/24/21 20:31 Lab Results 05/24/21 05/24/21 05/24/21 Range/Units 20:31 21:41 21:49 WBC 8.2 (3.8-10.6) k/uL RBC 5.44 H (3.80-5.40) m/uL Hgb 15.7 (11.4-16.0) gm/dL Hct 48.7 H (34.0-46.0) % MCV 89.5 (80.0-100.0) fL MCH 28.9 (25.0-35.0) pg MCHC 32.3 (31.0-37.0) g/dL RDW 13.4 (11.5-15.5) % Plt Count 466 H (150-450) k/uL MPV 6.4 Neutrophils % 61 % Lymphocytes % 30 % Monocytes % 5 % Eosinophils % 2 % Basophils % 1 % Neutrophils # 5.0 (1.3-7.7) k/uL Lymphocytes # 2.4 (1.0-4.8) k/uL Monocytes # 0.4 (0-1.0) k/uL Eosinophils # 0.2 (0-0.7) k/uL Basophils # 0.1 (0-0.2) k/uL Sodium 138 (137-145) mmol/L Potassium 4.3 (3.5-5.1) mmol/L Chloride 113 H (98-107) mmol/L Carbon Dioxide 20 L (22-30) mmol/L Anion Gap 5 mmol/L BUN 12 (7-17) mg/dL Creatinine 0.89 (0.52-1.04) mg/dL Est GFR (CKD-EPI)AfAm >90 (>60 ml/min/1.73 sqM) Est GFR (CKD-EPI)NonAf 82 (>60 ml/min/1.73 sqM) Glucose 84 (74-99) mg/dL Calcium 9.5 (8.4-10.2) mg/dL Magnesium 2.3 (1.6-2.3) mg/dL Total Bilirubin 0.5 (0.2-1.3) mg/dL AST 18 (14-36) U/L ALT 16 (4-34) U/L Alkaline Phosphatase 112 (38-126) U/L Troponin I <0.012 (0.000-0.034) ng/mL Total Protein 7.3 (6.3-8.2) g/dL Albumin 4.2 (3.5-5.0) g/dL Lipase 80 (23-300) U/L Disposition Clinical Impression: Chest wall pain Disposition: HOME SELF-CARE Condition: Stable Instructions (If sedation given, give patient instructions): Chest Pain (ED) Additional Instructions: Continue to take your Arixtra as directed by your prescribing physician. Follow-up with your regular doctor in the morning. Touch base with your specialist regarding the Port-A-Cath tomorrow. Follow-up with your regular physician as directed. Return to the ER immediately if any symptoms worsen, new symptoms arise, or any other problems develop. Is patient prescribed a controlled substance at d/c from ED?: No Referrals: Karthikeyan Pedro MD [Primary Care Provider] - 05/25/21 8:00 am Time of Disposition: 22:50
[2021-05-24 21:08] LABS: ALT 16 U/L (4-34); AST 18 U/L (14-36); African American GFR (CKD) >90 (>60 ml/min/1.73 sqM); Albumin 4.2 g/dL (3.5-5.0); Alkaline Phosphatase 112 U/L (38-126); Anion Gap 5 mmol/L; Blood Urea Nitrogen 12 mg/dL (7-17); Calcium 9.5 mg/dL (8.4-10.2); Carbon Dioxide 20 mmol/L (22-30); Chloride 113 mmol/L (98-107); Glucose 84 mg/dL (74-99); Lipase 80 U/L (23-300); Magnesium 2.3 mg/dL (1.6-2.3); Non-African American GFR(CKD) 82 (>60 ml/min/1.73 sqM); Potassium 4.3 mmol/L (3.5-5.1); Sodium 138 mmol/L (137-145); Total Bilirubin 0.5 mg/dL (0.2-1.3); Total Protein 7.3 g/dL (6.3-8.2)
--- NOTE | 2021-05-24 21:10 | XR ---
EXAMINATION TYPE: XR chest 1V DATE OF EXAM: 05/24/2021 COMPARISON: 05/22/2021 HISTORY: Check catheter TECHNIQUE: Single view FINDINGS: 10 mL of Isovue was injected into the Port-A-Cath. There is no contrast extravasation. Ther e is normal contrast opacification of the catheter. Catheter tip is in the superior vena cava. Heart and mediastinum are normal. Lungs are clear. Diaphragm is normal. IMPRESSION: Catheter is in good position. No evidence of a leak. No cardiopulmonary disease.
[2021-05-24 22:09] LABS: Basophils # (A) 0.1 k/uL (0-0.2); Basophils % (A) 1 %; Eosinophils # (A) 0.2 k/uL (0-0.7); Eosinophils % (A) 2 %; HCT 48.7 % (34.0-46.0); HGB 15.7 gm/dL (11.4-16.0); Lymphocytes # (A) 2.4 k/uL (1.0-4.8); Lymphocytes % (A) 30 %; MCH 28.9 pg (25.0-35.0); MCHC 32.3 g/dL (31.0-37.0); MCV 89.5 fL (80.0-100.0); Mean Platelet Volume 6.4; Monocytes # (A) 0.4 k/uL (0-1.0); Monocytes % (A) 5 %; Neutrophils % (A) 61 %; Platelet Count 466 k/uL (150-450); RBC 5.44 m/uL (3.80-5.40); RDW 13.4 % (11.5-15.5); WBC 8.2 k/uL (3.8-10.6)
[2021-05-24 23:17] VITALS: BP 121/85; PULSE 84; RESP 18
== END 2021-05-24 23:16 | disposition home or self-care (01) ==
LOC: EC 18:06
DX: R07.89 Other chest pain (principal); K21.9 Gastro-esophageal reflux disease without esophagitis; Z79.83 Long term (current) use of bisphosphonates; Z88.8 Allergy status to other drugs, medicaments and biological substances; Z88.9 Allergy status to unspecified drugs, medicaments and biological substances
CPT/HCPCS: 36415; 93005; 80053; 83690; 83735; 84484; 85025; 71045; 99285; 96374; 96375; 96376; J2270; J2405

== ENCOUNTER 2021-07-05 13:59 | Emergency (ER) | payer BC ==
[2021-07-05 14:45] VITALS: TEMP 99.3
[2021-07-05] MEDS ORDERED: HYDROmorphone 0.5 MG/0.5 ML SYRINGE IVP STA ×2 (15:24→18:31)
[2021-07-05] MEDS ORDERED: SODIUM CHLORIDE 0.9% 1,000 ML IV STA (15:24)
--- NOTE | 2021-07-05 15:47 | ED ---
General Adult HPI - General Source: patient Mode of arrival: ambulatory Limitations: no limitations <Anneliese Cruz - Last Filed: 07/05/21 20:13> <Ciara Howard - Last Filed: 07/06/21 23:35> - General Chief complaint: Abdominal Pain Stated complaint: Abdominal/Back Pain Time Seen by Provider: 07/05/21 14:53 - History of Present Illness Initial comments: This 41-year-old female who is well-known to the emergency department since the emergency department with abdominal pain radiating to her back 2 days. Patient states 2 days ago she noticed generalized abdominal pain and discomfort and states she feels like her right kidney is starting to have pain. Patient states she does not have a history of any kidney stones. Patient states her pain is dull in nature. Patient states her pain worsens with movement. Patient states she has experienced about 8 episodes of vomiting since yesterday. Patient states she is also experiencing some burning and increased frequency with urination. She denies any blood in her urination. She denies any hemoptysis or loss of appetite. Patient denies any fevers, diarrhea, constipation, headache, lightheadedness, dizziness. Patient denies any chest pain, shortness of breath, changes in vision, weakness. (Anneliese Cruz) - Related Data Home Medications Medication Instructions Recorded Confirmed Montelukast Chew [Singulair chew] 10 mg PO DAILY 02/02/18 05/06/21 Prucalopride Succinate [Motegrity] 2 mg PO DAILY 01/14/19 05/06/21 oxyCODONE HCL [oxyCODONE HCL (IR)] 10 mg PO Q8H PRN 04/20/19 05/06/21 Linaclotide [Linzess] 290 mcg PO DAILY PRN 05/24/19 05/06/21 Tegaserod Hydrogen Maleate 6 mg PO AC-BID 05/24/19 05/06/21 [Zelnorm] Lansoprazole 30 mg PO BID 08/27/19 05/06/21 Levothyroxine Sodium [Synthroid] 100 mcg PO DAILY 10/04/19 05/06/21 SUMAtriptan SUCCINATE [Imitrex] 100 mg PO BID PRN 05/20/20 05/06/21 Topiramate [Trokendi Xr] 50 mg PO HS 10/07/20 05/06/21 Ondansetron Odt [Zofran Odt] 8 mg PO Q8HR PRN 05/03/21 05/06/21 Promethazine Vc-Codeine Sushma 5 ml PO Q6H PRN 05/03/21 05/06/21 Zipsor 25mg 25 mg PO TID 05/03/21 05/06/21 Previous Rx's Medication Instructions Recorded Aspirin 81 mg PO DAILY 30 Days chewable 10/16/19 Calcium Carbonate [Calcium] 600 mg PO DAILY #30 tablet 05/07/21 Allergies Allergy/AdvReac Type Severity Reaction Status Date / Time metoclopramide [From Reglan] AdvReac Mild jittery Verified 07/05/21 14:46 prochlorperazine AdvReac Mild JITTERY Verified 07/05/21 14:46 [From Compazine] Review of Systems ROS Other: All systems not noted in ROS Statement are negative. <Anneliese Cruz - Last Filed: 07/05/21 20:13> ROS Other: All systems not noted in ROS Statement are negative. <Ciara Howard - Last Filed: 07/06/21 23:35> ROS Statement: Those systems with pertinent positive or pertinent negative responses have been documented in the HPI. Past Medical History Past Medical History: Deep Vein Thrombosis (DVT), GERD/Reflux, Pulmonary Embolus (PE), Thyroid Disorder Additional Past Medical History / Comment(s): Idiopathic gastroparesis, takes little in orally-has J tube for feedings and gastric stimulator- chronic abdominal pain, R pulmonary embolism 5-2017, dvt R upper extremity 2018, pancreatitis once in 2017-thought stone somewhere, hypothyroid, chronic anemia, sinus problems, migraines History of Any Multi-Drug Resistant Organisms: VRE Date of last positivie culture/infection: 08/01/18 MDRO Source:: VRE URINE Past Surgical History: Section, Cholecystectomy, Hernia Repair, Orthopedic Surgery, Tonsillectomy Additional Past Surgical History / Comment(s): Gastric pacer with removal in spring 2017, J tube, gastric stimulator, x3, 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 Mother Family Medical History: No Reported History Additional Family Medical History / Comment(s): Mother is 58yrs old. <Anneliese Cruz - Last Filed: 07/05/21 20:13> General Exam Limitations: no limitations General appearance: alert, in no apparent distress Head exam: Present: atraumatic, normocephalic, normal inspection Eye exam: Present: normal appearance, PERRL, EOMI. Absent: scleral icterus, conjunctival injection, periorbital swelling Pupils: Present: normal accommodation ENT exam: Present: normal exam, mucous membranes moist Neck exam: Present: normal inspection. Absent: tenderness, meningismus, lymphadenopathy Respiratory exam: Present: normal lung sounds bilaterally. Absent: respiratory distress, wheezes, rales, rhonchi, stridor Cardiovascular Exam: Present: regular rate, normal rhythm, normal heart sounds. Absent: systolic murmur, diastolic murmur, rubs, gallop, clicks GI/Abdominal exam: Present: soft, tenderness (Pain to palpation in right lower/mid quadrant), normal bowel sounds. Absent: distended, guarding, rebound, rigid Extremities exam: Present: normal inspection, full ROM, normal capillary refill. Absent: tenderness, pedal edema, joint swelling, calf tenderness Back exam: Present: normal inspection, full ROM, CVA tenderness (R). Absent: CVA tenderness (L), paraspinal tenderness, vertebral tenderness Neurological exam: Present: alert, oriented X3, CN II-XII intact Psychiatric exam: Present: normal affect, normal mood Skin exam: Present: warm, dry, intact, normal color. Absent: rash <Anneliese Cruz - Last Filed: 07/05/21 20:13> Course Vital Signs 07/05/21 07/05/21 14:42 20:08 Temperature 99.3 F Pulse Rate 99 89 Respiratory 18 16 Rate Blood Pressure 135/94 136/80 O2 Sat by Pulse 99 98 Oximetry Medical Decision Making - Lab Data Result diagrams: 07/05/21 15:46 07/05/21 15:46 <Anneliese Cruz - Last Filed: 07/05/21 20:13> - Lab Data Result diagrams: 07/05/21 15:46 07/05/21 15:46 <Ciara Howard - Last Filed: 07/06/21 23:35> - Medical Decision Making This 41-year-old female presents emergency Department with right-sided abdominal pain and vomiting [address] abdomen and pelvis impression no findings to explai n the patient's right sided abdominal pain. Jejunostomy tube with significant increase in tubing within the bowel. Prior, patient states she did just have tube replaced 2 days ago. IUD in place. Post surgical changes. After receiving IV fluids, Zofran and Dilaudid patient states her pain is sig nificantly decreased. Labs unremarkable. Urine with 8 squamous epithelial cells. Negative nitrites. Due to patient's decreased pain and no vomiting while here in the emergency department, patient sent home to follow with her primary care provider next 1-2 days. Patient states she does have Zofran at home that I instructed her to use as directed. Strict return precautions were discussed. Patient verbally agreed to plan. Patient sent home in stable condition. Case discussed in detail my attending, . (Anneliese Cruz) I was available for consultation in the emergency department. The history and physical exam were done by the midlevel provider. I was consulted for this patients care. I reviewed the case with the midlevel provider and based on their presentation of the patient, I agree with the assessment, medical decision making and plan of care as documented. Chart was dictated using [employer] dictation software. Attempts were made to correct any dictation errors however some typographical errors may persist. (Ciara Howard) - Lab Data Lab Results 07/05/21 07/05/21 07/05/21 Range/Units 15:46 15:46 15:46 WBC 9.6 (3.8-10.6) k/uL RBC 5.31 (3.80-5.40) m/uL Hgb 15.5 (11.4-16.0) gm/dL Hct 47.1 H (34.0-46.0) % MCV 88.7 (80.0-100.0) fL MCH 29.1 (25.0-35.0) pg MCHC 32.9 (31.0-37.0) g/dL RDW 13.3 (11.5-15.5) % Plt Count 343 (150-450) k/uL MPV 6.9 Neutrophils % 72 % Lymphocytes % 22 % Monocytes % 4 % Eosinophils % 1 % Basophils % 0 % Neutrophils # 6.9 (1.3-7.7) k/uL Lymphocytes # 2.1 (1.0-4.8) k/uL Monocytes # 0.3 (0-1.0) k/uL Eosinophils # 0.1 (0-0.7) k/uL Basophils # 0.0 (0-0.2) k/uL PT 10.5 (9.0-12.0) sec INR 1.0 (<1.2) APTT 23.4 (22.0-30.0) sec Sodium (137-145) mmol/L Potassium (3.5-5.1) mmol/L Chloride (98-107) mmol/L Carbon Dioxide (22-30) mmol/L Anion Gap mmol/L BUN (7-17) mg/dL Creatinine (0.52-1.04) mg/dL Est GFR (CKD-EPI)AfAm (>60 ml/min/1.73 sqM) Est GFR (CKD-EPI)NonAf (>60 ml/min/1.73 sqM) Glucose (74-99) mg/dL Plasma Lactic Acid Frank (0.7-2.0) mmol/L Calcium (8.4-10.2) mg/dL Total Bilirubin (0.2-1.3) mg/dL AST (14-36) U/L ALT (4-34) U/L Alkaline Phosphatase (38-126) U/L Total Protein (6.3-8.2) g/dL Albumin (3.5-5.0) g/dL Lipase (23-300) U/L Urine Color Yellow Urine Appearance Cloudy H (Clear) Urine pH 5.5 (5.0-8.0) Ur Specific Se[place]our 1.018 (1.001-1.035) Urine Protein Negative (Negative) Urine Glucose (UA) Negative (Negative) Urine Ketones Negative (Negative) Urine Blood Negative (Negative) Urine Nitrite Negative (Negative) Urine Bilirubin Negative (Negative) Urine Urobilinogen <2.0 (<2.0) mg/dL Ur Leukocyte Esterase Negative (Negative) Urine RBC <1 (0-5) /hpf Urine WBC 1 (0-5) /hpf Ur Squamous Epith Cells 8 H (0-4) /hpf Urine Bacteria Rare H (None) /hpf Urine Mucus Rare H (None) /hpf Urine HCG, Qual (Not Detectd) 07/05/21 07/05/21 07/05/21 Range/Units 15:46 15:46 15:46 WBC (3.8-10.6) k/uL RBC (3.80-5.40) m/uL Hgb (11.4-16.0) gm/dL Hct (34.0-46.0) % MCV (80.0-100.0) fL MCH (25.0-35.0) pg MCHC (31.0-37.0) g/dL RDW (11.5-15.5) % Plt Count (150-450) k/uL MPV Neutrophils % % Lymphocytes % % Monocytes % % Eosinophils % % Basophils % % Neutrophils # (1.3-7.7) k/uL Lymphocytes # (1.0-4.8) k/uL Monocytes # (0-1.0) k/uL Eosinophils # (0-0.7) k/uL Basophils # (0-0.2) k/uL PT (9.0-12.0) sec INR (<1.2) APTT (22.0-30.0) sec Sodium 137 (137-145) mmol/L Potassium 4.3 (3.5-5.1) mmol/L Chloride 108 H (98-107) mmol/L Carbon Dioxide 20 L (22-30) mmol/L Anion Gap 9 mmol/L BUN 13 (7-17) mg/dL Creatinine 0.86 (0.52-1.04) mg/dL Est GFR (CKD-EPI)AfAm >90 (>60 ml/min/1.73 sqM) Est GFR (CKD-EPI)NonAf 86 (>60 ml/min/1.73 sqM) Glucose 85 (74-99) mg/dL Plasma Lactic Acid Frank 0.6 L (0.7-2.0) mmol/L Calcium 9.2 (8.4-10.2) mg/dL Total Bilirubin 0.4 (0.2-1.3) mg/dL AST 18 (14-36) U/L ALT 12 (4-34) U/L Alkaline Phosphatase 102 (38-126) U/L Total Protein 7.0 (6.3-8.2) g/dL Albumin 4.3 (3.5-5.0) g/dL Lipase 28 (23-300) U/L Urine Color Urine Appearance (Clear) Urine pH (5.0-8.0) Ur Specific Seymour (1.001-1.035) Urine Protein (Negative) Urine Glucose (UA) (Negative) Urine Ketones (Negative) Urine Blood (Negative) Urine Nitrite (Negative) Urine Bilirubin (Negative) Urine Urobilinogen (<2.0) mg/dL Ur Leukocyte Esterase (Negative) Urine RBC (0-5) /hpf Urine WBC (0-5) /hpf Ur Squamous Epith Cells (0-4) /hpf Urine Bacteria (None) /hpf Urine Mucus (None) /hpf Urine HCG, Qual Not Detected (Not Detectd) Disposition Is patient prescribed a controlled substance at d/c from ED?: No Time of Disposition: 20:10 <Anneliese Cruz - Last Filed: 07/05/21 20:13> <Ciara Howard - Last Filed: 07/06/21 23:35> Clinical Impression: Abdominal pain, Vomiting Disposition: HOME SELF-CARE Condition: Stable Instructions (If sedation given, give patient instructions): Abdominal Pain (ED) Additional Instructions: Please follow up with your primary care provider in next 24-48 hours. Return to the emergency department with any new, worsening or concerning symptoms. Take Zofran as directed for nausea and vomiting. Referrals: Karthikeyan Pedro MD [Primary Care Provider] - 1-2 days
[2021-07-05 16:07] LABS: Appearance,Urine Cloudy (Clear); Bacteria,Urine Rare /hpf; Bilirubin,Urine Negative (Negative); Blood,Urine Negative (Negative); Color,Urine Yellow; Glucose,Urine (UA) Negative (Negative); Ketones,Urine Negative (Negative); Leukocyte Esterase,Urine Negative (Negative); Mucus,Urine Rare /hpf; Nitrite,Urine Negative (Negative); PH, Urine 5.5 (5.0-8.0); Protein,Urine Negative (Negative); RBC,Urine <1 /hpf (0-5); Specific Gravity,Urine 1.018 (1.001-1.035); Squamous Epithelial Cell,Urine 8 /hpf (0-4); Urobilinogen,Urine <2.0 mg/dL (<2.0); WBC,Urine 1 /hpf (0-5)
[2021-07-05 16:09] LABS: Partial Thromboplastin Time 23.4 sec (22.0-30.0); Prothrombin Time 10.5 sec (9.0-12.0)
[2021-07-05 16:10] LABS: ALT 12 U/L (4-34); AST 18 U/L (14-36); African American GFR (CKD) >90 (>60 ml/min/1.73 sqM); Albumin 4.3 g/dL (3.5-5.0); Alkaline Phosphatase 102 U/L (38-126); Anion Gap 9 mmol/L; Blood Urea Nitrogen 13 mg/dL (7-17); Calcium 9.2 mg/dL (8.4-10.2); Carbon Dioxide 20 mmol/L (22-30); Chloride 108 mmol/L (98-107); Glucose 85 mg/dL (74-99); Lipase 28 U/L (23-300); Non-African American GFR(CKD) 86 (>60 ml/min/1.73 sqM); Potassium 4.3 mmol/L (3.5-5.1); Sodium 137 mmol/L (137-145); Total Bilirubin 0.4 mg/dL (0.2-1.3)
[2021-07-05 16:12] LABS: Basophils % (A) 0 %; Eosinophils # (A) 0.1 k/uL (0-0.7); Eosinophils % (A) 1 %; HCT 47.1 % (34.0-46.0); HGB 15.5 gm/dL (11.4-16.0); Lymphocytes # (A) 2.1 k/uL (1.0-4.8); Lymphocytes % (A) 22 %; MCH 29.1 pg (25.0-35.0); MCHC 32.9 g/dL (31.0-37.0); MCV 88.7 fL (80.0-100.0); Mean Platelet Volume 6.9; Monocytes # (A) 0.3 k/uL (0-1.0); Monocytes % (A) 4 %; Neutrophils # (A) 6.9 k/uL (1.3-7.7); Neutrophils % (A) 72 %; Platelet Count 343 k/uL (150-450); RBC 5.31 m/uL (3.80-5.40); RDW 13.3 % (11.5-15.5); WBC 9.6 k/uL (3.8-10.6)
[2021-07-05] MEDS ORDERED: ONDANSETRON 4 MG/2 ML VIAL IVP STA (16:27)
--- NOTE | 2021-07-05 19:47 | CT ---
EXAMINATION TYPE: CT abdomen pelvis w con CT DLP: 1105.2 mGycm, Automated exposure control for dose reduction was used. DATE OF EXAM: 07/05/2021 7:29 PM COMPARISON: CT abdomen pelvis most recent from 09/03/2020. CLINICAL INDICATION:Female, 41 years old with history of abd pain right; RUQ pain TECHNIQUE: Standard CT of the abdomen following the administration of 100 cc of Isovue 300 IV contr ast material. Coronal and sagittal reformats were performed. FINDINGS: LOWER CHEST: Unremarkable ABDOMEN LIVER: Unremarkable GALLBLADDER AND BILE DUCTS: Gallbladder is surgically absent with mild intrahepatic and extra hepatic biliary dilatation likely physiologic and a postcholecystectomy change. No evidence of choledocholit hiasis. PANCREAS: Unremarkable. SPLEEN: Small splenule is present. ADRENAL GLANDS: Unremarkable. KIDNEYS AND URETERS: No evidence of hydronephrosis or renal calculus. The ureters are unremarkable. PELVIS BLADDER: Unremarkable REPRODUCTIVE: Intrauterine device seen within the endometrium. ABDOMEN & PELVIS STOMACH AND BOWEL: Electronic device with leads terminating near the anterior abdominal wall/gastric wall. Jejunostomy tube within the left abdomen with significant increase in tubing seen within the carlos wel loops on today's exam compared to prior on 09/03/2020. No evidence of bowel obstruction. Appendix i s visualized and normal. PERITONEUM: No evidence of pneumoperitoneum or free fluid. VASCULATURE: No evidence of aortic aneurysm. MUSCULOSKELETAL: No acute osseous abnormalities LYMPH NODES: No gross evidence for lymphadenopathy. SOFT TISSUE/ABDOMINAL WALL: MR fat filled ventral hernia measuring 12 mm at the neck. IMPRESSION: 1. No finding to explain the patient's right upper quadrant pain. 2. Jejunostomy tube with significant increase in tubing within the bowel on today's exam compared to prior. 3. Postsurgical changes. 4. IUD in place.
[2021-07-05 20:08] VITALS: BP 136/80; PULSE 89; RESP 16
== END 2021-07-05 20:17 | disposition home or self-care (01) ==
LOC: EC 13:59
DX: R10.9 Unspecified abdominal pain (principal); R11.10 Vomiting, unspecified; E07.9 Disorder of thyroid, unspecified; Z86.718 Personal history of other venous thrombosis and embolism; Z79.83 Long term (current) use of bisphosphonates; Z79.899 Other long term (current) drug therapy; Z88.8 Allergy status to other drugs, medicaments and biological substances
CPT/HCPCS: 36415; 80053; 83605; 83690; 85025; 85610; 85730; 81001; 81025; 74177; 99284; 96374; 96375; 96376; 96361; J2405; J1170; Q9967

== ENCOUNTER 2021-07-26 16:43 | Emergency (ER) | payer BC ==
[2021-07-26 17:22] VITALS: TEMP 99.4
[2021-07-26 19:05] LABS: Basophils # (A) 0.1 k/uL (0-0.2); Basophils % (A) 1 %; Eosinophils # (A) 0.1 k/uL (0-0.7); Eosinophils % (A) 2 %; HCT 44.3 % (34.0-46.0); Lymphocytes # (A) 2.4 k/uL (1.0-4.8); Lymphocytes % (A) 26 %; MCH 29.3 pg (25.0-35.0); MCHC 33.8 g/dL (31.0-37.0); MCV 86.8 fL (80.0-100.0); Mean Platelet Volume 6.8; Monocytes # (A) 0.4 k/uL (0-1.0); Monocytes % (A) 4 %; Neutrophils # (A) 6.2 k/uL (1.3-7.7); Neutrophils % (A) 67 %; Platelet Count 363 k/uL (150-450); RBC 5.11 m/uL (3.80-5.40); RDW 13.5 % (11.5-15.5); WBC 9.3 k/uL (3.8-10.6)
[2021-07-26 19:14] LABS: ALT 9 U/L (4-34); AST 21 U/L (14-36); African American GFR (CKD) >90 (>60 ml/min/1.73 sqM); Albumin 3.8 g/dL (3.5-5.0); Alkaline Phosphatase 92 U/L (38-126); Anion Gap 11 mmol/L; Blood Urea Nitrogen 14 mg/dL (7-17); Calcium 8.3 mg/dL (8.4-10.2); Carbon Dioxide 16 mmol/L (22-30); Chloride 113 mmol/L (98-107); Glucose 79 mg/dL (74-99); Non-African American GFR(CKD) >90 (>60 ml/min/1.73 sqM); Potassium 4.2 mmol/L (3.5-5.1); Sodium 140 mmol/L (137-145); Total Bilirubin 0.4 mg/dL (0.2-1.3); Total Protein 6.7 g/dL (6.3-8.2)
[2021-07-26] MEDS ORDERED: SODIUM CHLORIDE 0.9% 1,000 ML IV STA (19:49)
--- NOTE | 2021-07-26 19:58 | ED ---
General Adult HPI - General Chief complaint: Fever Stated complaint: Abd Pain/Fever Time Seen by Provider: 07/26/21 19:43 Source: patient, RN notes reviewed Mode of arrival: ambulatory Limitations: no limitations - History of Present Illness Initial comments: This is a pleasant 41-year-old female with a history of gastroparesis which was idiopathic in nature. Patient presents to the emergency room today complaining of fever, increased right lower quadrant abdominal pain. Patient states that she has a gastric stimulator in her right lower abdomen which previously had become infected at one time. Patient states she had it placed about one year ag o. Patient also has a jejunal tube. Patient receives feedings through this time to time. No other significant past medical history. Patient also complaining of body aches. No cough, shortness breath, no sore throat, no earache, no skin rash or lesions. No neck stiffness. No problems with urin ation. Patient is immunized against COVID-19. - Related Data Home Medications Medication Instructions Recorded Confirmed Montelukast Chew [Singulair chew] 10 mg PO DAILY 02/02/18 05/06/21 Prucalopride Succinate [Motegrity] 2 mg PO DAILY 01/14/19 05/06/21 oxyCODONE HCL [oxyCODONE HCL (IR)] 10 mg PO Q8H PRN 04/20/19 05/06/21 Linaclotide [Linzess] 290 mcg PO DAILY PRN 05/24/19 05/06/21 Tegaserod Hydrogen Maleate 6 mg PO AC-BID 05/24/19 05/06/21 [Zelnorm] Lansoprazole 30 mg PO BID 08/27/19 05/06/21 Levothyroxine Sodium [Synthroid] 100 mcg PO DAILY 10/04/19 05/06/21 SUMAtriptan SUCCINATE [Imitrex] 100 mg PO BID PRN 05/20/20 05/06/21 Topiramate [Trokendi Xr] 50 mg PO HS 10/07/20 05/06/21 Ondansetron Odt [Zofran Odt] 8 mg PO Q8HR PRN 05/03/21 05/06/21 Promethazine Vc-Codeine Sushma 5 ml PO Q6H PRN 05/03/21 05/06/21 Zipsor 25mg 25 mg PO TID 05/03/21 05/06/21 Previous Rx's Medication Instructions Recorded Aspirin 81 mg PO DAILY 30 Days chewable 10/16/19 Calcium Carbonate [Calcium] 600 mg PO DAILY #30 tablet 05/07/21 Clindamycin [Cleocin] 300 mg PO Q6H #40 capsule 07/26/21 Allergies Allergy/AdvReac Type Severity Reaction Status Date / Time metoclopramide [From Reglan] AdvReac Mild jittery Verified 07/26/21 17:23 prochlorperazine AdvReac Mild JITTERY Verified 07/26/21 17:23 [From Compazine] Review of Systems ROS Statement: Those systems with pertinent positive or pertinent negative responses have been documented in the HPI. ROS Other: All systems not noted in ROS Statement are negative. Past Medical History Past Medical History: Deep Vein Thrombosis (DVT), GERD/Reflux, Pulmonary Embolus (PE), Thyroid Disorder Additional Past Medical History / Comment(s): Idiopathic gastroparesis, takes little in orally-has J tube for feedings and gastric stimulator- chronic abdominal pain, R pulmonary embolism -2017, dvt R upper extremity 2018, pancreatitis once in 2017-thought stone somewhere, hypothyroid, chronic anemia, sinus problems, migraines History of Any Multi-Drug Resistant Organisms: VRE Date of last positivie culture/infection: 08/01/18 MDRO Source:: VRE URINE Past Surgical History: Section, Cholecystectomy, Hernia Repair, Orthopedic Surgery, Tonsillectomy Additional Past Surgical History / Comment(s): Gastric pacer with removal in spring 2017, J tube, gastric stimulator, x3, 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 Mother Family Medical History: No Reported History Additional Family Medical History / Comment(s): Mother is 58yrs old. General Exam Limitations: no limitations General appearance: alert, in no apparent distress Head exam: Present: atraumatic, normocephalic, normal inspection Eye exam: Present: normal appearance, PERRL, EOMI. Absent: scleral icterus, conjunctival injection, periorbital swelling ENT exam: Present: normal exam, mucous membranes moist Neck exam: Present: normal inspection. Absent: tenderness, meningismus, lymphadenopathy Respiratory exam: Present: normal lung sounds bilaterally. Absent: respiratory distress, wheezes, rales, rhonchi, stridor Cardiovascular Exam: Present: regular rate, normal rhythm, normal heart sounds. Absent: systolic murmur, diastolic murmur, rubs, gallop, clicks GI/Abdominal exam: Present: soft, tenderness (Tender in the right lower quadrant, subcutaneous device palpated.), guarding, normal bowel sounds, other (Jejunal tube noted). Absent: distended, rebound, rigid Extremities exam: Present: normal inspection, full ROM, normal capillary refill. Absent: tenderness, pedal edema, joint swelling, calf tenderness Back exam: Present: normal inspection Neurological exam: Present: alert, oriented X3, CN II-XII intact Psychiatric exam: Present: normal affect, normal mood Skin exam: Present: warm, dry, intact, normal color. Absent: rash Course Vital Signs 07/26/21 17:18 Temperature 99.4 F Pulse Rate 112 H Respiratory 20 Rate Blood Pressure 146/84 O2 Sat by Pulse 100 Oximetry - Reevaluation(s) Reevaluation #1: 07/26/21 22:50 Medical record is reviewed Symptoms are improved here in the emergency department Patient is informed of results and questions answered Patient in no distress All findings discussed with the patient, treatment plan discussed, all questions answered Medical Decision Making - Medical Decision Making She presents with fever and right lower quadrant pain. Appendicitis within the differential. Other etiologies such as diverticulitis, infected implantable device, urinary tract infection also possible. Does not appear to be consistent with cardiopulmonary disease. Patient does have some body aches. COVID-19 or other viral etiology possible as well. Case was discussed with the patient's surgeon, Dr. Graham at [facility]. He suggested. Treatment with antibiotics and follow-up in his of fice. We'll cover the patient will clindamycin. Plan discussed with the patient. Patient concurs. All questions answered. Patient was told to return to the ER for any signs or symptoms worsen. Told to return immediately if any other problems arise. All questions answered. Treatment plan discussed. Patient in agreement Every effort has been made to ensure accuracy of this dictation. However, due to the limitations of electronic medical records and dictation devices, errors i n charting still occur. The case was discussed in detail with ED attending physician. Presentation, findings, treatment plan discussed in detail. Dr. Ferro - Lab Data Result diagrams: 07/26/21 18:50 07/26/21 18:50 Lab Results 07/26/21 07/26/21 07/26/21 Range/Units 18:50 18:50 19:49 WBC 9.3 (3.8-10.6) k/uL RBC 5.11 (3.80-5.40) m/uL Hgb 15.0 (11.4-16.0) gm/dL Hct 44.3 (34.0-46.0) % MCV 86.8 (80.0-100.0) fL MCH 29.3 (25.0-35.0) pg MCHC 33.8 (31.0-37.0) g/dL RDW 13.5 (11.5-15.5) % Plt Count 363 (150-450) k/uL MPV 6.8 Neutrophils % 67 % Lymphocytes % 26 % Monocytes % 4 % Eosinophils % 2 % Basophils % 1 % Neutrophils # 6.2 (1.3-7.7) k/uL Lymphocytes # 2.4 (1.0-4.8) k/uL Monocytes # 0.4 (0-1.0) k/uL Eosinophils # 0.1 (0-0.7) k/uL Basophils # 0.1 (0-0.2) k/uL Sodium 140 (137-145) mmol/L Potassium 4.2 (3.5-5.1) mmol/L Chloride 113 H (98-107) mmol/L Carbon Dioxide 16 L (22-30) mmol/L Anion Gap 11 mmol/L BUN 14 (7-17) mg/dL Creatinine 0.80 (0.52-1.04) mg/dL Est GFR (CKD-EPI)AfAm >90 (>60 ml/min/1.73 sqM) Est GFR (CKD-EPI)NonAf >90 (>60 ml/min/1.73 sqM) Glucose 79 (74-99) mg/dL Plasma Lactic Acid Frank (0.7-2.0) mmol/L Calcium 8.3 L (8.4-10.2) mg/dL Total Bilirubin 0.4 (0.2-1.3) mg/dL AST 21 (14-36) U/L ALT 9 (4-34) U/L Alkaline Phosphatase 92 (38-126) U/L Total Protein 6.7 (6.3-8.2) g/dL Albumin 3.8 (3.5-5.0) g/dL Urine Color Urine Appearance (Clear) Urine pH (5.0-8.0) Ur Specific [place] (1.001-1.035) Urine Protein (Negative) Urine Glucose (UA) (Negative) Urine Ketones (Negative) Urine Blood (Negative) Urine Nitrite (Negative) Urine Bilirubin (Negative) Urine Urobilinogen (<2.0) mg/dL Ur Leukocyte Esterase (Negative) Urine RBC (0-5) /hpf Urine WBC (0-5) /hpf Ur Squamous Epith Cells (0-4) /hpf Calcium Oxalate Crystal (None) /hpf Amorphous Sediment (None) /hpf Urine Bacteria (None) /hpf Hyaline Casts (0-2) /lpf Urine Mucus (None) /hpf Urine HCG, Qual (Not Detectd) Coronavirus (PCR) (Not Detectd) Influenza Type A RNA Not Detected (Not Detectd) Influenza Type B (PCR) Not Detected (Not Detectd) 07/26/21 07/26/21 07/26/21 Range/Units 19:49 20:01 21:00 WBC (3.8-10.6) k/uL RBC (3.80-5.40) m/uL Hgb (11.4-16.0) gm/dL Hct (34.0-46.0) % MCV (80.0-100.0) fL MCH (25.0-35.0) pg MCHC (31.0-37.0) g/dL RDW (11.5-15.5) % Plt Count (150-450) k/uL MPV Neutrophils % % Lymphocytes % % Monocytes % % Eosinophils % % Basophils % % Neutrophils # (1.3-7.7) k/uL Lymphocytes # (1.0-4.8) k/uL Monocytes # (0-1.0) k/uL Eosinophils # (0-0.7) k/uL Basophils # (0-0.2) k/uL Sodium (137-145) mmol/L Potassium (3.5-5.1) mmol/L Chloride (98-107) mmol/L Carbon Dioxide (22-30) mmol/L Anion Gap mmol/L BUN (7-17) mg/dL Creatinine (0.52-1.04) mg/dL Est GFR (CKD-EPI)AfAm (>60 ml/min/1.73 sqM) Est GFR (CKD-EPI)NonAf (>60 ml/min/1.73 sqM) Glucose (74-99) mg/dL Plasma Lactic Acid Frank 0.9 (0.7-2.0) mmol/L Calcium (8.4-10.2) mg/dL Total Bilirubin (0.2-1.3) mg/dL AST (14-36) U/L ALT (4-34) U/L Alkaline Phosphatase (38-126) U/L Total Protein (6.3-8.2) g/dL Albumin (3.5-5.0) g/dL Urine Color Yellow Urine Appearance Cloudy H (Clear) Urine pH 5.5 (5.0-8.0) Ur Specific [place] 1.028 (1.001-1.035) Urine Protein Trace H (Negative) Urine Glucose (UA) Negative (Negative) Urine Ketones Negative (Negative) Urine Blood Trace H (Negative) Urine Nitrite Negative (Negative) Urine Bilirubin Negative (Negative) Urine Urobilinogen 2.0 (<2.0) mg/dL Ur Leukocyte Esterase Negative (Negative) Urine RBC 1 (0-5) /hpf Urine WBC 3 (0-5) /hpf Ur Squamous Epith Cells 1 (0-4) /hpf Calcium Oxalate Crystal Many H (None) /hpf Amorphous Sediment Rare H (None) /hpf Urine Bacteria Rare H (None) /hpf Hyaline Casts 1 (0-2) /lpf Urine Mucus Few H (None) /hpf Urine HCG, Qual (Not Detectd) Coronavirus (PCR) Not Detected (Not Detectd) Influenza Type A RNA (Not Detectd) Influenza Type B (PCR) (Not Detectd) 04/24/22 Range/Units 21:00 WBC (3.8-10.6) k/uL RBC (3.80-5.40) m/uL Hgb (11.4-16.0) gm/dL Hct (34.0-46.0) % MCV (80.0-100.0) fL MCH (25.0-35.0) pg MCHC (31.0-37.0) g/dL RDW (11.5-15.5) % Plt Count (150-450) k/uL MPV Neutrophils % % Lymphocytes % % Monocytes % % Eosinophils % % Basophils % % Neutrophils # (1.3-7.7) k/uL Lymphocytes # (1.0-4.8) k/uL Monocytes # (0-1.0) k/uL Eosinophils # (0-0.7) k/uL Basophils # (0-0.2) k/uL Sodium (137-145) mmol/L Potassium (3.5-5.1) mmol/L Chloride (98-107) mmol/L Carbon Dioxide (22-30) mmol/L Anion Gap mmol/L BUN (7-17) mg/dL Creatinine (0.52-1.04) mg/dL Est GFR (CKD-EPI)AfAm (>60 ml/min/1.73 sqM) Est GFR (CKD-EPI)NonAf (>60 ml/min/1.73 sqM) Glucose (74-99) mg/dL Plasma Lactic Acid Frank (0.7-2.0) mmol/L Calcium (8.4-10.2) mg/dL Total Bilirubin (0.2-1.3) mg/dL AST (14-36) U/L ALT (4-34) U/L Alkaline Phosphatase (38-126) U/L Total Protein (6.3-8.2) g/dL Albumin (3.5-5.0) g/dL Urine Color Urine Appearance (Clear) Urine pH (5.0-8.0) Ur Specific [place] (1.001-1.035) Urine Protein (Negative) Urine Glucose (UA) (Negative) Urine Ketones (Negative) Urine Blood (Negative) Urine Nitrite (Negative) Urine Bilirubin (Negative) Urine Urobilinogen (<2.0) mg/dL Ur Leukocyte Esterase (Negative) Urine RBC (0-5) /hpf Urine WBC (0-5) /hpf Ur Squamous Epith Cells (0-4) /hpf Calcium Oxalate Crystal (None) /hpf Amorphous Sediment (None) /hpf Urine Bacteria (None) /hpf Hyaline Casts (0-2) /lpf Urine Mucus (None) /hpf Urine HCG, Qual Not Detected (Not Detectd) Coronavirus (PCR) (Not Detectd) Influenza Type A RNA (Not Detectd) Influenza Type B (PCR) (Not Detectd) Disposition Clinical Impression: Abdominal pain Narrative: Possible inflammation/early infectious process near gastric stimulator Disposition: HOME SELF-CARE Condition: Good Instructions (If sedation given, give patient instructions): Abdominal Pain (ED) Additional Instructions: The case was discussed in detail with ED attending physician. Presentation, findings, treatment plan discussed in detail. Is patient prescribed a controlled substance at d/c from ED?: No Referrals: Karthikeyan Pedro MD [Primary Care Provider] - 1-2 days
[2021-07-26] MEDS ORDERED: KETOROLAC 15 MG/ML 1 ML VIAL IVP STA (21:05)
[2021-07-26] MEDS ORDERED: ONDANSETRON 4 MG/2 ML VIAL IVP STA (21:05)
[2021-07-26] MEDS ORDERED: MORPHINE SULFATE 4 MG/ML SYRINGE IV STA (21:05)
[2021-07-26 21:34] LABS: Amorphous Sediment,Urine Rare /hpf; Appearance,Urine Cloudy (Clear); Bacteria,Urine Rare /hpf; Bilirubin,Urine Negative (Negative); Blood,Urine Trace (Negative); Calcium Oxalate Crystals,Urine Many /hpf; Color,Urine Yellow; Glucose,Urine (UA) Negative (Negative); Hyaline Casts,Urine 1 /lpf (0-2); Ketones,Urine Negative (Negative); Leukocyte Esterase,Urine Negative (Negative); Mucus,Urine Few /hpf; Nitrite,Urine Negative (Negative); PH, Urine 5.5 (5.0-8.0); Protein,Urine Trace (Negative); RBC,Urine 1 /hpf (0-5); Specific Gravity,Urine 1.028 (1.001-1.035); Squamous Epithelial Cell,Urine 1 /hpf (0-4); WBC,Urine 3 /hpf (0-5)
--- NOTE | 2021-07-26 21:36 | CT ---
EXAMINATION TYPE: CT abdomen pelvis w con DATE OF EXAM: 07/26/2021 COMPARISON: 07/05/2021 HISTORY: Right lower quadrant pain. CT DLP: 1046.5 mGycm Automated exposure control for dose reduction was used. CONTRAST: Performed with IV Contrast, patient injected with 100 mL of Isovue 300. Lung bases are clear. There is no pleural effusion. There is previous surgery at the stomach. There a re clips from cholecystectomy. Liver is intact. Spleen is intact. There is no pancreatic mass. The bi le ducts are not dilated. There is apparent jejunostomy tube noted. There is no adrenal mass. Kidneys show satisfactory contrast opacification. There is no hydronephrosi s. Ureters are not dilated. There is implant device over the right anterior abdomen. The bladder dist ends smoothly. Uterus is anteverted. There is IUD in the uterine fundus. No pelvic mass. No free flui d in the pelvis. Lumbar vertebrae have normal spacing and alignment. Posterior elements are intact. T he bony pelvis is intact. There is no mesenteric edema. No ascites or free air. No bowel obstruction. Appendix appears to be in ferior and appears normal. IMPRESSION: Jejunostomy tube noted. No bowel obstruction. No significant change compared to old exam.
[2021-07-26] MEDS ORDERED: CLINDAMYCIN 150 MG CAP PO STA (22:47)
[2021-07-26 23:35] VITALS: BP 137/98; PULSE 88; RESP 16
== END 2021-07-26 23:07 | disposition home or self-care (01) ==
LOC: EC 16:43
DX: R10.31 Right lower quadrant pain (principal); K21.9 Gastro-esophageal reflux disease without esophagitis; Z79.1 Long term (current) use of non-steroidal anti-inflammatories (NSAID); Z79.890 Hormone replacement therapy; E07.9 Disorder of thyroid, unspecified; Z20.822 Contact with and (suspected) exposure to COVID-19; Z88.8 Allergy status to other drugs, medicaments and biological substances; Z88.9 Allergy status to unspecified drugs, medicaments and biological substances
CPT/HCPCS: 36415; 80053; 83605; 85025; 81001; 81025; 87502; 87635; 74177; 99284; 96374; 96375; 96361; J2270; J2405; J1885; Q9967

== ENCOUNTER 2021-07-28 15:42 | Emergency (ER) | payer BC ==
[2021-07-28 15:48] VITALS: BP 126/91; PULSE 104; RESP 20; TEMP 98.4
--- NOTE | 2021-07-28 17:09 | XR ---
EXAMINATION TYPE: XR chest 2V DATE OF EXAM: 07/28/2021 COMPARISON: 05/24/2021 HISTORY: Chest pain Tachycardia TECHNIQUE: FINDINGS: Heart and mediastinum are normal. Lungs are clear. The diaphragm is normal. There is left-s ided central venous catheter with tip in the superior vena cava. Bony thorax appears normal. IMPRESSION: Normal chest. No change.
== END 2021-07-28 17:55 | disposition left against medical advice (07) ==
LOC: EC 15:42
DX: Z53.21 Procedure and treatment not carried out due to patient leaving prior to being seen by health care provider (principal); R00.0 Tachycardia, unspecified
CPT/HCPCS: 71046; 99499

== ENCOUNTER → 2021-10-28 | Outpatient (CLI) | payer BC ==
[2021-10-28 14:59] LABS: Magnesium 2.1 mg/dL (1.5-2.4); Phosphorus 2.8 mg/dL (2.4-5.1); Triglycerides 84.9 mg/dL (0.00-149.00)
[2021-10-28 15:05] LABS: Basophils # (A) 0.06 X 10*3/uL (0.00-0.10); Basophils % (A) 0.9 %; Eosinophils # (A) 0.22 X 10*3/uL (0.04-0.35); Eosinophils % (A) 3.5 %; HCT 38.3 % (37.2-46.3); HGB 12.3 g/dL (12.0-15.0); Immature Grans, Automated 0.3 %; Lymphocytes # (A) 2.09 X 10*3/uL (0.90-5.00); MCH 27.5 pg (27.0-32.0); MCHC 32.1 g/dL (32.0-37.0); MCV 85.5 fL (80.0-97.0); Mean Platelet Volume 9.8 fL (9.5-12.2); Monocytes # (A) 0.47 X 10*3/uL (0.20-1.00); Monocytes % (A) 7.4 %; NRBC Per 100 WBC 0 /100 WBCS (0.0-0.0); Neutrophils # (A) 3.48 X 10*3/uL (1.80-7.70); Neutrophils % (A) 54.9 %; Platelet Count 412 X 10*3/uL (140-440); RBC 4.48 X 10*6/uL (4.10-5.20); RDW 13.3 % (11.5-14.5); WBC 6.34 X 10*3/uL (4.50-10.00)
== END | disposition home or self-care (01) ==
LOC: LABWHC1 10:12
DX: R10.9 Unspecified abdominal pain (principal)
CPT/HCPCS: 36415; 83735; 84100; 84478; 85025

== ENCOUNTER → 2021-12-09 | Outpatient (CLI) | payer BC ==
[2021-12-09 23:28] LABS: Basophils # (A) 0.09 X 10*3/uL (0.00-0.10); Basophils % (A) 1.2 %; Eosinophils # (A) 0.28 X 10*3/uL (0.04-0.35); Eosinophils % (A) 3.7 %; HCT 37.6 % (37.2-46.3); HGB 12.4 g/dL (12.0-15.0); Immature Grans, Automated 0.3 %; Lymphocytes # (A) 2.74 X 10*3/uL (0.90-5.00); Lymphocytes % (A) 36.1 %; MCH 28.9 pg (27.0-32.0); MCV 87.6 fL (80.0-97.0); Monocytes # (A) 0.53 X 10*3/uL (0.20-1.00); NRBC Per 100 WBC 0 /100 WBCS (0.0-0.0); Neutrophils # (A) 3.93 X 10*3/uL (1.80-7.70); Neutrophils % (A) 51.7 %; Platelet Count 339 X 10*3/uL (140-440); RBC 4.29 X 10*6/uL (4.10-5.20); RDW 13.7 % (11.5-14.5); WBC 7.59 X 10*3/uL (4.50-10.00)
[2021-12-10 00:42] LABS: African American GFR (CKD) 77.5 (60.0-200.0); Albumin 4.4 g/dL (3.8-4.9); Albumin/Globulin Ratio 2.15 (1.60-3.17); Anion Gap 13.3 mmol/L (10.00-18.00); BUN/Creat Ratio 19.81 Ratio (12.00-20.00); Blood Urea Nitrogen 20.8 mg/dL (9.0-27.0); Calcium 9.6 mg/dL (8.7-10.3); Carbon Dioxide 21.4 mmol/L (20.0-27.5); Globulin 2.1 g/dL (1.6-3.3); Magnesium 2.1 mg/dL (1.5-2.4); Non-African American GFR(CKD) 66.9 (60.0-200.0); Phosphorus 5.1 mg/dL (2.4-5.1); Potassium 4.1 mmol/L (3.5-5.5); Total Bilirubin 0.2 mg/dL (0.30-1.20); Total Protein 6.5 g/dL (6.2-8.2); Triglycerides 79.8 mg/dL (0.00-149.00)
== END | disposition home or self-care (01) ==
LOC: LABWHC1 16:15
PROVIDERS: ATTEND Internal Medicine
DX: R10.9 Unspecified abdominal pain (principal)
CPT/HCPCS: 36415; 80053; 83735; 84100; 84478; 85025

== ENCOUNTER 2021-12-13 09:07 | Emergency (ER) | payer BC ==
[2021-12-13 09:16] VITALS: TEMP 98.1
[2021-12-13] MEDS ORDERED: SODIUM CHLORIDE 0.9% 1,000 ML IV STA (11:18)
[2021-12-13] MEDS ORDERED: MORPHINE SULFATE 4 MG/ML SYRINGE IVP STA (11:19)
[2021-12-13] MEDS ORDERED: ONDANSETRON 4 MG/2 ML VIAL IVP STA (11:19)
[2021-12-13] MEDS ORDERED: diphenhydrAMINE 50 MG/ML 1 ML VIAL IVP STA (11:22)
[2021-12-13 11:53] LABS: Basophils % (A) 1 %; Eosinophils # (A) 0.1 k/uL (0-0.7); Eosinophils % (A) 2 %; HCT 42.5 % (34.0-46.0); HGB 13.8 gm/dL (11.4-16.0); Lymphocytes # (A) 1.7 k/uL (1.0-4.8); Lymphocytes % (A) 25 %; MCH 28.8 pg (25.0-35.0); MCHC 32.5 g/dL (31.0-37.0); MCV 88.5 fL (80.0-100.0); Mean Platelet Volume 7.2; Monocytes # (A) 0.3 k/uL (0-1.0); Monocytes % (A) 4 %; Neutrophils # (A) 4.6 k/uL (1.3-7.7); Neutrophils % (A) 67 %; Platelet Count 338 k/uL (150-450); RDW 13.8 % (11.5-15.5); WBC 6.9 k/uL (3.8-10.6)
[2021-12-13 12:04] LABS: ALT 17 U/L (4-34); AST 16 U/L (14-36); African American GFR (CKD) >90 (>60 ml/min/1.73 sqM); Albumin 4.5 g/dL (3.5-5.0); Alkaline Phosphatase 128 U/L (38-126); Anion Gap 13 mmol/L; Blood Urea Nitrogen 15 mg/dL (7-17); Calcium 9.5 mg/dL (8.4-10.2); Carbon Dioxide 19 mmol/L (22-30); Chloride 110 mmol/L (98-107); Glucose 88 mg/dL (74-99); Lipase 40 U/L (23-300); Non-African American GFR(CKD) 86 (>60 ml/min/1.73 sqM); Sodium 142 mmol/L (137-145); Total Bilirubin 0.3 mg/dL (0.2-1.3); Total Protein 6.8 g/dL (6.3-8.2)
[2021-12-13 12:19] LABS: Appearance,Urine Clear (Clear); Bacteria,Urine Rare /hpf; Bilirubin,Urine Negative (Negative); Blood,Urine Trace (Negative); Color,Urine Yellow; Glucose,Urine (UA) Negative (Negative); Ketones,Urine Negative (Negative); Leukocyte Esterase,Urine Negative (Negative); Mucus,Urine Occasional /hpf; Nitrite,Urine Negative (Negative); Protein,Urine Negative (Negative); RBC,Urine 1 /hpf (0-5); Squamous Epithelial Cell,Urine 9 /hpf (0-4); Urobilinogen,Urine <2.0 mg/dL (<2.0); WBC,Urine 2 /hpf (0-5)
[2021-12-13] MEDS ORDERED: HYDROmorphone 0.5 MG/0.5 ML SYRINGE IVP STA (12:47)
--- NOTE | 2021-12-13 13:00 | XR ---
EXAMINATION TYPE: XR KUB DATE OF EXAM: 12/13/2021 12:55 PM INDICATION: Patient age:Female; 41 years old; Reason for study: rule out obstruction; [facility]. COMPARISON: 07/27/2021 CT. TECHNIQUE: One radiographic view of the abdomen was obtained. FINDINGS: The bowel gas pattern is nonspecific without dilated loops of small or large bowel. There i s no evidence for organomegaly or pneumoperitoneum. The osseous structures are intact. No abnormal calcifications are present. Fecal material and gas are demonstrated throughout the colon and rectum. Right upper quadrant cholecystectomy clips. Battery pack pack noted in the right lower quadrant with leads terminating in the left upper quadrant. IUD present. IMPRESSION: 1. No definitive evidence of obstruction. 2. Nonspecific bowel gas pattern without radiographic evidence for acute process.
--- NOTE | 2021-12-13 13:03 | ED ---
Fever HPI - General Chief Complaint: Fever Stated Complaint: fever Time Seen by Provider: 12/13/21 10:54 Source: patient Mode of arrival: ambulatory Limitations: no limitations - History of Present Illness Initial Comments: Patient is a 41-year-old female with past medical history of gastroparesis with stimulator, multiple abdominal surgeries, and J-tube presents to the emergency department with a chief complaint of abdominal pain. Patient is well-known to our facility for abdominal issues. She states symptoms started a couple days ago. States pain is in the upper middle abdomen and is typical of her gastroparesis pain however pain do not improve with the use of her home prescription of oxycodone. Patient also reports fever, nausea, one episode of vomiting today. Denies any increased redness swelling or drainage from j-tube. Took prescribed Zofran and Phenergan with some relief of nausea. Denies shortness of breath, chest pain, palpitations, diarrhea, blood in stool, burning with urination, blood in urine, vaginal discharge. Denies alcohol use. Patient follows at [facility] for gastroparesis. She currently uses TPN. - Related Data Home Medications Medication Instructions Recorded Confirmed Montelukast Chew [Singulair chew] 10 mg PO DAILY 02/02/18 05/06/21 Prucalopride Succinate [Motegrity] 2 mg PO DAILY 01/14/19 05/06/21 oxyCODONE HCL [oxyCODONE HCL (IR)] 10 mg PO Q8H PRN 04/20/19 05/06/21 Linaclotide [Linzess] 290 mcg PO DAILY PRN 05/24/19 05/06/21 Tegaserod Hydrogen Maleate 6 mg PO AC-BID 05/24/19 05/06/21 [Zelnorm] Lansoprazole 30 mg PO BID 08/27/19 05/06/21 Levothyroxine Sodium [Synthroid] 100 mcg PO DAILY 10/04/19 05/06/21 SUMAtriptan succinate [Imitrex] 100 mg PO BID PRN 05/20/20 05/06/21 Topiramate [Trokendi Xr] 50 mg PO HS 10/07/20 05/06/21 Ondansetron Odt [Zofran Odt] 8 mg PO Q8HR PRN 05/03/21 05/06/21 Promethazine Vc-Codeine Sushma 5 ml PO Q6H PRN 05/03/21 05/06/21 Zipsor 25mg 25 mg PO TID 05/03/21 05/06/21 Previous Rx's Medication Instructions Recorded Aspirin 81 mg PO DAILY 30 Days chewable 10/16/19 Calcium Carbonate [Calcium] 600 mg PO DAILY #30 tablet 05/07/21 Clindamycin [Cleocin] 300 mg PO Q6H #40 capsule 07/26/21 cefUROXime axetiL [Ceftin] 500 mg PO BID 7 Days #14 tab 08/23/21 Allergies Allergy/AdvReac Type Severity Reaction Status Date / Time midazolam [From Versed] Allergy Anaphylaxis Verified 12/13/21 09:17 metoclopramide [From Reglan] AdvReac Mild jittery Verified 12/13/21 09:16 prochlorperazine AdvReac Mild JITTERY Verified 12/13/21 09:16 [From Compazine] Review of Systems ROS Statement: Those systems with pertinent positive or pertinent negative responses have been documented in the HPI. ROS Other: All systems not noted in ROS Statement are negative. Past Medical History Past Medical History: Deep Vein Thrombosis (DVT), GERD/Reflux, Pulmonary Embolus (PE), Thyroid Disorder Additional Past Medical History / Comment(s): Idiopathic gastroparesis, takes little in orally-has J tube for feedings and gastric stimulator- chronic abdominal pain, R pulmonary embolism -2017, dvt R upper extremity 2018, pancreatitis once in 2017-thought stone somewhere, hypothyroid, chronic anemia, sinus problems, migraines History of Any Multi-Drug Resistant Organisms: VRE Date of last positivie culture/infection: 08/01/18 MDRO Source:: VRE URINE Past Surgical History: Section, Cholecystectomy, Hernia Repair, Orthopedic Surgery, Tonsillectomy Additional Past Surgical History / Comment(s): Gastric pacer with removal in spring 2017, J tube, gastric stimulator, x3, 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 Mother Family Medical History: No Reported History Additional Family Medical History / Comment(s): Mother is 58yrs old. General Exam Limitations: no limitations General appearance: alert, in no apparent distress Neck exam: Present: normal inspection Respiratory exam: Present: normal lung sounds bilaterally. Absent: respiratory distress, wheezes, rales, rhonchi, stridor Cardiovascular Exam: Present: regular rate, normal rhythm, normal heart sounds. Absent: systolic murmur, diastolic murmur, rubs, gallop, clicks GI/Abdominal exam: Present: soft, tenderness (mild epigastric ), normal bowel sounds, other (j-tube intact without cellulitis ). Absent: distended, guarding, rebound, rigid Course Vital Signs 12/13/21 12/13/21 12/13/21 09:14 12:01 13:06 Temperature 98.1 F 98.1 F 98.1 F Pulse Rate 87 68 65 Respiratory 20 16 17 Rate Blood Pressure 118/78 117/75 117/70 O2 Sat by Pulse 96 100 100 Oximetry Medical Decision Making - Medical Decision Making 41-year-old female presenting with epigastric pain. Patient well-appearing and in no apparent distress. EKG shows sinus rhythm without ST segment or T-wave abnormality. Laboratory studies obtained and are unremarkable. There is no leukocytosis. Lipase is within normal limits. Troponin is within normal limits. Patient adamant that she needs x-ray and blood cultures. Based on vitals, physical exam, and labs, I did not feel that this was warranted but these were obtained. KUB x-ray is negative for acute process. She'll be discharged with instruction to follow up with the GI specialist. Dr. Boyd is my attending. - Lab Data Result diagrams: 12/13/21 11:39 12/13/21 11:39 Lab Results 12/13/21 12/13/21 12/13/21 Range/Units 11:39 11:39 11:39 WBC 6.9 (3.8-10.6) k/uL RBC 4.80 (3.80-5.40) m/uL Hgb 13.8 (11.4-16.0) gm/dL Hct 42.5 (34.0-46.0) % MCV 88.5 (80.0-100.0) fL MCH 28.8 (25.0-35.0) pg MCHC 32.5 (31.0-37.0) g/dL RDW 13.8 (11.5-15.5) % Plt Count 338 (150-450) k/uL MPV 7.2 Neutrophils % 67 % Lymphocytes % 25 % Monocytes % 4 % Eosinophils % 2 % Basophils % 1 % Neutrophils # 4.6 (1.3-7.7) k/uL Lymphocytes # 1.7 (1.0-4.8) k/uL Monocytes # 0.3 (0-1.0) k/uL Eosinophils # 0.1 (0-0.7) k/uL Basophils # 0.0 (0-0.2) k/uL Sodium 142 (137-145) mmol/L Potassium 4.0 (3.5-5.1) mmol/L Chloride 110 H (98-107) mmol/L Carbon Dioxide 19 L (22-30) mmol/L Anion Gap 13 mmol/L BUN 15 (7-17) mg/dL Creatinine 0.86 (0.52-1.04) mg/dL Est GFR (CKD-EPI)AfAm >90 (>60 ml/min/1.73 sqM) Est GFR (CKD-EPI)NonAf 86 (>60 ml/min/1.73 sqM) Glucose 88 (74-99) mg/dL Calcium 9.5 (8.4-10.2) mg/dL Total Bilirubin 0.3 (0.2-1.3) mg/dL AST 16 (14-36) U/L ALT 17 (4-34) U/L Alkaline Phosphatase 128 H (38-126) U/L Troponin I (0.000-0.034) ng/mL Total Protein 6.8 (6.3-8.2) g/dL Albumin 4.5 (3.5-5.0) g/dL Lipase 40 (23-300) U/L Urine Color Yellow Urine Appearance Clear (Clear) Urine pH 5.0 (5.0-8.0) Ur Specific [place] 1.020 (1.001-1.035) Urine Protein Negative (Negative) Urine Glucose (UA) Negative (Negative) Urine Ketones Negative (Negative) Urine Blood Trace H (Negative) Urine Nitrite Negative (Negative) Urine Bilirubin Negative (Negative) Urine Urobilinogen <2.0 (<2.0) mg/dL Ur Leukocyte Esterase Negative (Negative) Urine RBC 1 (0-5) /hpf Urine WBC 2 (0-5) /hpf Ur Squamous Epith Cells 9 H (0-4) /hpf Urine Bacteria Rare H (None) /hpf Urine Mucus Occasional H (None) /hpf 12/13/21 Range/Units 11:39 WBC (3.8-10.6) k/uL RBC (3.80-5.40) m/uL Hgb (11.4-16.0) gm/dL Hct (34.0-46.0) % MCV (80.0-100.0) fL MCH (25.0-35.0) pg MCHC (31.0-37.0) g/dL RDW (11.5-15.5) % Plt Count (150-450) k/uL MPV Neutrophils % % Lymphocytes % % Monocytes % % Eosinophils % % Basophils % % Neutrophils # (1.3-7.7) k/uL Lymphocytes # (1.0-4.8) k/uL Monocytes # (0-1.0) k/uL Eosinophils # (0-0.7) k/uL Basophils # (0-0.2) k/uL Sodium (137-145) mmol/L Potassium (3.5-5.1) mmol/L Chloride (98-107) mmol/L Carbon Dioxide (22-30) mmol/L Anion Gap mmol/L BUN (7-17) mg/dL Creatinine (0.52-1.04) mg/dL Est GFR (CKD-EPI)AfAm (>60 ml/min/1.73 sqM) Est GFR (CKD-EPI)NonAf (>60 ml/min/1.73 sqM) Glucose (74-99) mg/dL Calcium (8.4-10.2) mg/dL Total Bilirubin (0.2-1.3) mg/dL AST (14-36) U/L ALT (4-34) U/L Alkaline Phosphatase (38-126) U/L Troponin I <0.012 (0.000-0.034) ng/mL Total Protein (6.3-8.2) g/dL Albumin (3.5-5.0) g/dL Lipase (23-300) U/L Urine Color Urine Appearance (Clear) Urine pH (5.0-8.0) Ur Specific [place] (1.001-1.035) Urine Protein (Negative) Urine Glucose (UA) (Negative) Urine Ketones (Negative) Urine Blood (Negative) Urine Nitrite (Negative) Urine Bilirubin (Negative) Urine Urobilinogen (<2.0) mg/dL Ur Leukocyte Esterase (Negative) Urine RBC (0-5) /hpf Urine WBC (0-5) /hpf Ur Squamous Epith Cells (0-4) /hpf Urine Bacteria (None) /hpf Urine Mucus (None) /hpf Disposition Clinical Impression: Epigastric pain, Nausea & vomiting Disposition: HOME SELF-CARE Condition: Good Instructions (If sedation given, give patient instructions): Abdominal Pain (ED) Additional Instructions: Follow-up with GI specialist. Take home prescription of oxycodone, Zofran, and Phenergan. Return to the emergency department if you experience new, concerning, or worsening symptoms. Is patient prescribed a controlled substance at d/c from ED?: No Referrals: Karthikeyan Pedro MD [Primary Care Provider] - 1-2 days Time of Disposition: 13:03
[2021-12-13 13:07] VITALS: BP 117/70; PULSE 65; RESP 17
== END 2021-12-13 13:20 | disposition home or self-care (01) ==
LOC: EC 09:07
DX: R10.13 Epigastric pain (principal); R11.2 Nausea with vomiting, unspecified; R50.9 Fever, unspecified; K21.9 Gastro-esophageal reflux disease without esophagitis; E03.9 Hypothyroidism, unspecified; Z86.718 Personal history of other venous thrombosis and embolism; Z86.711 Personal history of pulmonary embolism; Z79.890 Hormone replacement therapy; Z79.899 Other long term (current) drug therapy; Z88.4 Allergy status to anesthetic agent; Z88.8 Allergy status to other drugs, medicaments and biological substances; Z88.9 Allergy status to unspecified drugs, medicaments and biological substances
CPT/HCPCS: 36415; 93005; 80053; 83690; 84484; 85025; 81001; 87040; 87077; 87186; 74018; 99284; 96374; 96375; 96361; J2270; J1200; J1170

== ENCOUNTER 2021-12-14 07:19 | Emergency (ER) | payer BC ==
[2021-12-14] MEDS ORDERED: SODIUM CHLORIDE 0.9% 1,000 ML IV STA (07:53)
[2021-12-14] MEDS ORDERED: VANCOMYCIN 1,250 MG in SODIUM CHLORIDE 0.9% 250 ML IVPB STA (08:02)
--- NOTE | 2021-12-14 08:06 | ED ---
General Adult HPI - General Chief complaint: Recheck/Abnormal Lab/Rx Stated complaint: positive culture labs Time Seen by Provider: 12/14/21 07:25 Source: patient, RN notes reviewed, old records reviewed Mode of arrival: ambulatory Limitations: no limitations - History of Present Illness Initial comments: This is a 41-year-old female presents emergency Department with a past medical history significant for gastroparesis. Patient has a port in for TPN. Patient states over the weekend she had a fever and she came into the emergency department data blood cultures blood cultures come back staph aureus and patient came back in the emergency department. Patient states she also had some mild abdominal pain across top which she states she has some always but it was a little worse over the weekend. Patient denies any cough or congestion. Patient denies any dysuria hematuria urinary frequency. - Related Data Home Medications Medication Instructions Recorded Confirmed Montelukast Chew [Singulair chew] 10 mg PO DAILY 02/02/18 05/06/21 Prucalopride Succinate [Motegrity] 2 mg PO DAILY 01/14/19 05/06/21 oxyCODONE HCL [oxyCODONE HCL (IR)] 10 mg PO Q8H PRN 04/20/19 05/06/21 Linaclotide [Linzess] 290 mcg PO DAILY PRN 05/24/19 05/06/21 Tegaserod Hydrogen Maleate 6 mg PO AC-BID 05/24/19 05/06/21 [Zelnorm] Lansoprazole 30 mg PO BID 08/27/19 05/06/21 Levothyroxine Sodium [Synthroid] 100 mcg PO DAILY 10/04/19 05/06/21 SUMAtriptan succinate [Imitrex] 100 mg PO BID PRN 05/20/20 05/06/21 Topiramate [Trokendi Xr] 50 mg PO HS 10/07/20 05/06/21 Ondansetron Odt [Zofran Odt] 8 mg PO Q8HR PRN 05/03/21 05/06/21 Promethazine Vc-Codeine Sushma 5 ml PO Q6H PRN 05/03/21 05/06/21 Zipsor 25mg 25 mg PO TID 05/03/21 05/06/21 Previous Rx's Medication Instructions Recorded Aspirin 81 mg PO DAILY 30 Days chewable 10/16/19 Calcium Carbonate [Calcium] 600 mg PO DAILY #30 tablet 05/07/21 Clindamycin [Cleocin] 300 mg PO Q6H #40 capsule 07/26/21 cefUROXime axetiL [Ceftin] 500 mg PO BID 7 Days #14 tab 08/23/21 Allergies Allergy/AdvReac Type Severity Reaction Status Date / Time midazolam [From Versed] Allergy Anaphylaxis Verified 12/14/21 07:23 metoclopramide [From Reglan] AdvReac Mild jittery Verified 12/14/21 07:23 prochlorperazine AdvReac Mild JITTERY Verified 12/14/21 07:23 [From Compazine] Review of Systems ROS Statement: Those systems with pertinent positive or pertinent negative responses have been documented in the HPI. ROS Other: All systems not noted in ROS Statement are negative. Past Medical History Past Medical History: Deep Vein Thrombosis (DVT), GERD/Reflux, Pulmonary Embolus (PE), Thyroid Disorder Additional Past Medical History / Comment(s): Idiopathic gastroparesis, takes little in orally-has J tube for feedings and gastric stimulator- chronic abdominal pain, R pulmonary embolism , dvt R upper extremity 2018, pancreatitis once in 2018-thought stone somewhere, hypothyroid, chronic anemia, sinus problems, migraines History of Any Multi-Drug Resistant Organisms: VRE Date of last positivie culture/infection: 08/01/18 MDRO Source:: VRE URINE Past Surgical History: Section, Cholecystectomy, Hernia Repair, Orthopedic Surgery, Tonsillectomy Additional Past Surgical History / Comment(s): Gastric pacer with removal in spring 2017, J tube, gastric stimulator, x3, 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 Mother Family Medical History: No Reported History Additional Family Medical History / Comment(s): Mother is 58yrs old. General Exam - General Exam Comments Initial Comments: GENERAL: Patient is well-developed and well-nourished. Patient is nontoxic and well- hydrated and is in mild distress. ENT: Neck is soft and supple. No significant lymphadenopathy is noted. Oropharynx is clear. Moist mucous membranes. Neck has full range of motion without eliciting any pain. EYES: The sclera were anicteric and conjunctiva were pink and moist. Extraocular movements were intact and pupils were equal round and reactive to light. Eyelids were unremarkable. PULMONARY: Unlabored respirations. Good breath sounds bilaterally. No audible rales rho nchi or wheezing was noted. CARDIOVASCULAR: There is a regular rate and rhythm without any murmurs gallops or rubs. ABDOMEN: Patient has mild epigastric abdominal pain SKIN: Skin is clear with no lesions or rashes and otherwise unremarkable. NEUROLOGIC: Patient is alert and oriented x3. Cranial nerves II through XII are grossly intact. Motor and sensory are also intact. Normal speech, volume and content. Symmetrical smile. MUSCULOSKELETAL: Normal extremities with adequate strength and full range of motion. [id number] LYMPHATICS: No significant lymphadenopathy is noted PSYCHIATRIC: Normal psychiatric evaluation. Limitations: no limitations Course Vital Signs 12/14/21 07:21 Temperature 98.4 F Pulse Rate 83 Respiratory 20 Rate Blood Pressure 126/78 O2 Sat by Pulse 98 Oximetry Medical Decision Making - Medical Decision Making I spoke with Dr. Hemphill out [facility] and he wanted the patient admitted to the [facility] system. Patient was in agreement. Patient states she did not want the embolus and her was going to pick her up and take her there. Patient did receive a gram of vancomycin here. Disposition Clinical Impression: Infection of venous access port Disposition: OTHER INSTITUTION NOT DEFINED Is patient prescribed a controlled substance at d/c from ED?: No Referrals: Karthikeyan Pedro MD [Primary Care Provider] - 1-2 days Time of Disposition: 09:14 - Out of Hospital Transfer - Req. Specs Out of Hospital Transfer - Requested Specifics: Other Emergency Center ([facility])
[2021-12-14] MEDS ORDERED: diphenhydrAMINE 50 MG/ML 1 ML VIAL IVP STA (08:42)
[2021-12-14 10:07] LABS: ALT 16 U/L (4-34); African American GFR (CKD) >90 (>60 ml/min/1.73 sqM); Albumin 3.9 g/dL (3.5-5.0); Amylase 106 U/L (30-110); Anion Gap 11 mmol/L; Basophils # (A) 0.1 k/uL (0-0.2); Basophils % (A) 1 %; Blood Urea Nitrogen 12 mg/dL (7-17); Carbon Dioxide 17 mmol/L (22-30); Chloride 112 mmol/L (98-107); Eosinophils # (A) 0.2 k/uL (0-0.7); Eosinophils % (A) 4 %; Glucose 82 mg/dL (74-99); HGB 13.9 gm/dL (11.4-16.0); Lipase 62 U/L (23-300); Lymphocytes % (A) 30 %; MCH 28.4 pg (25.0-35.0); MCHC 32.3 g/dL (31.0-37.0); Monocytes # (A) 0.4 k/uL (0-1.0); Monocytes % (A) 6 %; Neutrophils # (A) 3.7 k/uL (1.3-7.7); Neutrophils % (A) 57 %; Non-African American GFR(CKD) >90 (>60 ml/min/1.73 sqM); Platelet Count 247 k/uL (150-450); RBC 4.89 m/uL (3.80-5.40); RDW 13.4 % (11.5-15.5); Sodium 140 mmol/L (137-145); Total Bilirubin 0.5 mg/dL (0.2-1.3); Total Protein 6.4 g/dL (6.3-8.2); WBC 6.5 k/uL (3.8-10.6)
[2021-12-14 10:08] LABS: Potassium 4.3 mmol/L (3.5-5.1)
[2021-12-14 10:09] LABS: AST 29 U/L (14-36); Alkaline Phosphatase 138 U/L (38-126)
[2021-12-14] MEDS ORDERED: KETOROLAC 15 MG/ML 1 ML VIAL IVP STA (10:16)
[2021-12-14 10:21] LABS: RBC Morphology Normal
[2021-12-14] MEDS ORDERED: HYDROmorphone 0.5 MG/0.5 ML SYRINGE IVP STA (10:34)
[2021-12-14 10:37] LABS: Appearance,Urine Clear (Clear); Bilirubin,Urine Negative (Negative); Blood,Urine Negative (Negative); Color,Urine Colorless; Glucose,Urine (UA) Negative (Negative); Ketones,Urine Negative (Negative); Leukocyte Esterase,Urine Small (Negative); Mucus,Urine Rare /hpf; Nitrite,Urine Negative (Negative); Protein,Urine Negative (Negative); RBC,Urine 1 /hpf (0-5); Specific Gravity,Urine 1.003 (1.001-1.035); Squamous Epithelial Cell,Urine 2 /hpf (0-4); Urobilinogen,Urine <2.0 mg/dL (<2.0); WBC,Urine 4 /hpf (0-5)
[2021-12-14 10:47] VITALS: BP 138/78; PULSE 88; RESP 18; TEMP 98
[2021-12-14] MEDS ORDERED: VANCOMYCIN 1,000 MG in SODIUM CHLORIDE 0.9% 250 ML IVPB SCH (18:00)
== END 2021-12-14 10:46 | disposition other institution (70) ==
LOC: EC 07:19
DX: T80.212A Local infection due to central venous catheter, initial encounter (principal); E03.9 Hypothyroidism, unspecified; K21.9 Gastro-esophageal reflux disease without esophagitis; Z86.711 Personal history of pulmonary embolism; Z79.890 Hormone replacement therapy; Z79.899 Other long term (current) drug therapy; Z88.8 Allergy status to other drugs, medicaments and biological substances; Z20.822 Contact with and (suspected) exposure to COVID-19
CPT/HCPCS: 96365 ×2; 96366 ×2; 96375 ×2; 99283 ×2; 36415; 80053; 82150; 83605; 83690; 85025; 81001; 87040; 87635; J3370; J1200; J1170

== ENCOUNTER 2022-01-10 07:52 | Emergency (ER) | payer BC ==
[2022-01-10 07:59] VITALS: BP 129/76; PULSE 105; RESP 16; TEMP 98.2
[2022-01-10] MEDS ORDERED: SODIUM CHLORIDE 0.9% 1,000 ML IV STA (08:04)
--- NOTE | 2022-01-10 08:20 | ED ---
General Adult HPI - General Chief complaint: Recheck/Abnormal Lab/Rx Stated complaint: Dehydration Time Seen by Provider: 01/10/22 08:03 Source: patient, family, RN notes reviewed Mode of arrival: ambulatory Limitations: no limitations - History of Present Illness Initial comments: Patient is a 41-year-old female presenting to the emergency room with complaints of decreased ability for oral intake, increased urine concentration and concerns of dehydration since removal of her central line not allowing her to receive IV hydration. She does continue to give herself fluids and foods down the J-tube. She is also complaining of bilateral flank pain right worse than left. She denies any new abdominal pain, new nausea or vomiting, fevers or ch ills. She has a significant past medical history including idiopathic gastroparesis previous bypass surgery J-tube insertion, chronic abdominal pain, upper extremity DVT, pancreatitis, hypothyroidism, anemia and migraines. - Related Data Home Medications Medication Instructions Recorded Confirmed Montelukast Chew [Singulair chew] 10 mg PO DAILY 02/02/18 05/06/21 Prucalopride Succinate [Motegrity] 2 mg PO DAILY 01/14/19 05/06/21 oxyCODONE HCL [oxyCODONE HCL (IR)] 10 mg PO Q8H PRN 04/20/19 05/06/21 Linaclotide [Linzess] 290 mcg PO DAILY PRN 05/24/19 05/06/21 Tegaserod Hydrogen Maleate 6 mg PO AC-BID 05/24/19 05/06/21 [Zelnorm] Lansoprazole 30 mg PO BID 08/27/19 05/06/21 Levothyroxine Sodium [Synthroid] 100 mcg PO DAILY 10/04/19 05/06/21 SUMAtriptan succinate [Imitrex] 100 mg PO BID PRN 05/20/20 05/06/21 Topiramate [Trokendi Xr] 50 mg PO HS 10/07/20 05/06/21 Ondansetron Odt [Zofran Odt] 8 mg PO Q8HR PRN 05/03/21 05/06/21 Promethazine Vc-Codeine Sushma 5 ml PO Q6H PRN 05/03/21 05/06/21 Zipsor 25mg 25 mg PO TID 05/03/21 05/06/21 Previous Rx's Medication Instructions Recorded Aspirin 81 mg PO DAILY 30 Days chewable 10/16/19 Calcium Carbonate [Calcium] 600 mg PO DAILY #30 tablet 05/07/21 Clindamycin [Cleocin] 300 mg PO Q6H #40 capsule 07/26/21 cefUROXime axetiL [Ceftin] 500 mg PO BID 7 Days #14 tab 08/23/21 Sulfamethox-Tmp 800-160Mg [Bactrim 1 tab PEG/G-TUBE Q12HR 5 Days #10 01/10/22 DS 800-160 mg] tab Allergies Allergy/AdvReac Type Severity Reaction Status Date / Time midazolam [From Versed] Allergy Anaphylaxis Verified 01/10/22 07:59 metoclopramide [From Reglan] AdvReac Mild jittery Verified 01/10/22 07:59 prochlorperazine AdvReac Mild JITTERY Verified 01/10/22 07:59 [From Compazine] Review of Systems ROS Statement: Those systems with pertinent positive or pertinent negative responses have been documented in the HPI. ROS Other: All systems not noted in ROS Statement are negative. Past Medical History Past Medical History: Deep Vein Thrombosis (DVT), GERD/Reflux, Pulmonary Embolus (PE), Thyroid Disorder Additional Past Medical History / Comment(s): Idiopathic gastroparesis, takes little in orally-has J tube for feedings and gastric stimulator- chronic abdominal pain, R pulmonary embolism -2017, dvt R upper extremity 2018, pancreatitis once in 2017-thought stone somewhere, hypothyroid, chronic anemia, sinus problems, migraines History of Any Multi-Drug Resistant Organisms: VRE Date of last positivie culture/infection: 08/01/18 MDRO Source:: VRE URINE Past Surgical History: Section, Cholecystectomy, Hernia Repair, Orthopedic Surgery, Tonsillectomy Additional Past Surgical History / Comment(s): Gastric pacer with removal in spring 2017, J tube, gastric stimulator, x3, 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 Mother Family Medical History: No Reported History Additional Family Medical History / Comment(s): Mother is 58yrs old. General Exam General appearance: alert, in no apparent distress Head exam: Present: atraumatic, normocephalic, normal inspection Eye exam: Present: normal appearance, PERRL, EOMI, scleral icterus, conjunctival injection. Absent: nystagmus ENT exam: Present: normal exam, mucous membranes moist Neck exam: Present: normal inspection, full ROM Respiratory exam: Present: normal lung sounds bilaterally. Absent: respiratory distress, wheezes, rales, rhonchi, stridor Cardiovascular Exam: Present: regular rate, normal rhythm, normal heart sounds. Absent: systolic murmur, diastolic murmur, rubs, gallop, clicks GI/Abdominal exam: Present: soft. Absent: distended, guarding, rebound, rigid Rectal exam: Present: deferred Extremities exam: Present: normal inspection. Absent: pedal edema, joint swelling Back exam: Present: normal inspection, CVA tenderness (R). Absent: CVA tenderness (L) Neurological exam: Present: alert, oriented X3, CN II-XII intact Psychiatric exam: Present: normal affect, normal mood Skin exam: Present: warm, dry, intact, normal color. Absent: rash Course Vital Signs 01/10/22 07:54 Temperature 98.2 F Pulse Rate 105 H Respiratory 16 Rate Blood Pressure 129/76 O2 Sat by Pulse 100 Oximetry Medical Decision Making - Medical Decision Making 41-year-old female presenting to the emergency room with concerns of bilateral flank pain, dark urine and difficulty keeping fluid intake down after removal oral for central line 2 weeks ago. Will check CBC, BMP along with urinalysis. Due to multiple surgical changes in the abdomen will defer KUB and check CT the abdomen without contrast to evaluate flank pain. Will give 1 L IV fluid bolus. CBC stable. BMP revealed hypernatremia with a sodium level of 146 BUN and creatinine normal. Urinalysis with multiple anomalies including large amount of leukocyte Estrace. CT of the abdomen reveals a 1-2 mm nonobstructing right renal calculi no hydronephrosis. No other acute process seen in the abdomen. Continues to complain of pain will give 1 dose of IV Dilaudid and monitor response. Pain improved with IV Dilaudid. Will discharge home with continued fluids both orally and 3J2. Will give Bactrim for UTI. Encouraged follow-up with her primary care provider. Case discussed with Dr. Pineda. - Lab Data Result diagrams: 01/10/22 08:37 01/10/22 08:37 Lab Results 01/10/22 01/10/22 01/10/22 Range/Units 08:37 08:37 08:37 WBC 7.1 (3.8-10.6) k/uL RBC 5.28 (3.80-5.40) m/uL Hgb 14.6 (11.4-16.0) gm/dL Hct 45.1 (34.0-46.0) % MCV 85.4 (80.0-100.0) fL MCH 27.7 (25.0-35.0) pg MCHC 32.4 (31.0-37.0) g/dL RDW 13.0 (11.5-15.5) % Plt Count 466 H (150-450) k/uL MPV 6.9 Neutrophils % 66 % Lymphocytes % 26 % Monocytes % 4 % Eosinophils % 2 % Basophils % 1 % Neutrophils # 4.7 (1.3-7.7) k/uL Lymphocytes # 1.9 (1.0-4.8) k/uL Monocytes # 0.3 (0-1.0) k/uL Eosinophils # 0.2 (0-0.7) k/uL Basophils # 0.1 (0-0.2) k/uL Sodium 146 H (137-145) mmol/L Potassium 3.7 (3.5-5.1) mmol/L Chloride 110 H (98-107) mmol/L Carbon Dioxide 22 (22-30) mmol/L Anion Gap 14 mmol/L BUN 13 (7-17) mg/dL Creatinine 0.82 (0.52-1.04) mg/dL Est GFR (CKD-EPI)AfAm >90 (>60 ml/min/1.73 sqM) Est GFR (CKD-EPI)NonAf >90 (>60 ml/min/1.73 sqM) Glucose 83 (74-99) mg/dL Calcium 10.1 (8.4-10.2) mg/dL Urine Color Yellow Urine Appearance Cloudy H (Clear) Urine pH 5.5 (5.0-8.0) Ur Specific [place] 1.024 (1.001-1.035) Urine Protein 1+ H (Negative) Urine Glucose (UA) Negative (Negative) Urine Ketones Negative (Negative) Urine Blood Negative (Negative) Urine Nitrite Negative (Negative) Urine Bilirubin Negative (Negative) Urine Urobilinogen <2.0 (<2.0) mg/dL Ur Leukocyte Esterase Large H (Negative) Urine RBC 10 H (0-5) /hpf Urine WBC 17 H (0-5) /hpf Ur Squamous Epith Cells 43 H (0-4) /hpf Amorphous Sediment Rare H (None) /hpf Hyaline Casts 4 H (0-2) /lpf Urine Mucus Many H (None) /hpf - Radiology Data Radiology results: report reviewed, image reviewed CT abdomen pelvis without contrast impression 1-2 mm nonobstructing right renal calculi without hydronephrosis. Device and postsurgical changes seen and stable No acute changes within the abdomen. Disposition Clinical Impression: Nephrolithiasis, Hypernatremia, UTI (urinary tract infection) Disposition: HOME SELF-CARE Condition: Stable Instructions (If sedation given, give patient instructions): Kidney Stones (ED), Urinary Tract Infection in Women (DC) Additional Instructions: Please follow-up with your primary care provider. Continue good hydration both orally and via J-tube. Complete course of antibiotic as prescribed. Please return to the Emergency Department if symptoms worsen or any other concerns. Prescriptions: Sulfamethox-Tmp 800-160Mg [Bactrim DS 800-160 mg] 1 tab PEG/G-TUBE Q12HR 5 Days #10 tab Is patient prescribed a controlled substance at d/c from ED?: No Referrals: Karthikeyan Pedro MD [Primary Care Provider] - 1-2 days Time of Disposition: 10:12
[2022-01-10 08:56] LABS: Basophils # (A) 0.1 k/uL (0-0.2); Basophils % (A) 1 %; Eosinophils # (A) 0.2 k/uL (0-0.7); Eosinophils % (A) 2 %; HCT 45.1 % (34.0-46.0); HGB 14.6 gm/dL (11.4-16.0); Lymphocytes # (A) 1.9 k/uL (1.0-4.8); Lymphocytes % (A) 26 %; MCH 27.7 pg (25.0-35.0); MCHC 32.4 g/dL (31.0-37.0); MCV 85.4 fL (80.0-100.0); Mean Platelet Volume 6.9; Monocytes # (A) 0.3 k/uL (0-1.0); Monocytes % (A) 4 %; Neutrophils # (A) 4.7 k/uL (1.3-7.7); Neutrophils % (A) 66 %; Platelet Count 466 k/uL (150-450); RBC 5.28 m/uL (3.80-5.40); WBC 7.1 k/uL (3.8-10.6)
[2022-01-10 09:13] LABS: Amorphous Sediment,Urine Rare /hpf; Appearance,Urine Cloudy (Clear); Bilirubin,Urine Negative (Negative); Blood,Urine Negative (Negative); Color,Urine Yellow; Glucose,Urine (UA) Negative (Negative); Hyaline Casts,Urine 4 /lpf (0-2); Ketones,Urine Negative (Negative); Leukocyte Esterase,Urine Large (Negative); Mucus,Urine Many /hpf; Nitrite,Urine Negative (Negative); PH, Urine 5.5 (5.0-8.0); Protein,Urine 1+ (Negative); RBC,Urine 10 /hpf (0-5); Specific Gravity,Urine 1.024 (1.001-1.035); Squamous Epithelial Cell,Urine 43 /hpf (0-4); Urobilinogen,Urine <2.0 mg/dL (<2.0); WBC,Urine 17 /hpf (0-5)
[2022-01-10 09:14] LABS: African American GFR (CKD) >90 (>60 ml/min/1.73 sqM); Anion Gap 14 mmol/L; Blood Urea Nitrogen 13 mg/dL (7-17); Calcium 10.1 mg/dL (8.4-10.2); Carbon Dioxide 22 mmol/L (22-30); Chloride 110 mmol/L (98-107); Glucose 83 mg/dL (74-99); Non-African American GFR(CKD) >90 (>60 ml/min/1.73 sqM); Potassium 3.7 mmol/L (3.5-5.1); Sodium 146 mmol/L (137-145)
--- NOTE | 2022-01-10 09:26 | CT ---
EXAMINATION TYPE: CT abdomen pelvis wo con DATE OF EXAM: 01/10/2022 COMPARISON: 07/26/2021 HISTORY: Dehydration, Bilateral flank pain CT DLP: 582.6 mGycm Automated exposure control for dose reduction was used. TECHNIQUE: Helical acquisition of images was performed from the lung bases through the pelvis. FINDINGS: The lung bases are clear. There is a tiny 1 to 2 mm nonobstructing right renal calcification. There is no hydronephrosis. Bowel loops are normal in caliber is no evidence of obstruction. There is no free intraperitoneal air or fluid. There is no organomegaly involving the liver, pancreas, spleen or adrenal glands. There are postsurgical changes including cholecystectomy, a left-sided jejunostomy tube, stimulator d evice in the anterior abdominal wall and a IUD all of which were seen previously and are stable. The osseous structures are intact. IMPRESSION: 1. 1 - 2 mm nonobstructing right renal calculus without hydronephrosis. 2. Devices and postsurgical changes as described above all of which were seen previously and are stab le. 3. No acute changes within the abdomen
[2022-01-10] MEDS ORDERED: HYDROmorphone 1 MG/ML 1 ML SYRINGE IVP STA (09:36)
== END 2022-01-10 10:00 | disposition home or self-care (01) ==
LOC: EC 07:52
DX: E87.0 Hyperosmolality and hypernatremia (principal); K21.9 Gastro-esophageal reflux disease without esophagitis; Z79.899 Other long term (current) drug therapy; Z88.8 Allergy status to other drugs, medicaments and biological substances; Z88.3 Allergy status to other anti-infective agents
CPT/HCPCS: 36415; 80048; 85025; 81001; 87086; 74176; 99285; 96374; 96361; J1170

== ENCOUNTER 2022-01-10 21:17 | Emergency (ER) | payer BC ==
[2022-01-10 21:55] VITALS: TEMP 97.8
[2022-01-10] MEDS ORDERED: SODIUM CHLORIDE 0.9% 500 ML 500 ML IV STA (22:22)
[2022-01-10] MEDS ORDERED: SODIUM CHLORIDE 0.9% 1,000 ML IV STA ×2 (22:22)
[2022-01-10] MEDS ORDERED: HYDROmorphone 1 MG/ML 1 ML SYRINGE IVP STA (22:23)
[2022-01-10] MEDS ORDERED: PANTOPRAZOLE 40 MG/10 ML VIAL IVP STA (22:23)
--- NOTE | 2022-01-10 22:30 | ED ---
Recheck HPI - General Chief Complaint: Nausea/Vomiting/Diarrhea Stated Complaint: dehydrated Time Seen by Provider: 01/10/22 22:21 Source: patient, RN notes reviewed, old records reviewed Mode of arrival: ambulatory Limitations: no limitations - History of Present Illness Initial Comments: This is a 41-year-old female to the emergency department for evaluation. This patient presents today for evaluation regards to nausea vomiting recent diagnosis of urinary tract infection and kidney stone. History of kidney stones. History of persistent nausea and vomiting currently. Patient was again seen here earlier this morning and symptoms are progressively worsened. Unable tolerate medication MD Complaint: abnormal lab (Positive UTI), other (Positive nausea vomiting) -: hour(s) Returns Today for: Called Because of Abnormal Lab/Test, persistent/worsening pain related to initial visit Symptoms Since Prior Visit: worsening pain Context: planned re-check Associated Symptoms: nausea, abdominal pain Treatments Prior to Arrival: Given Antibiotics on, Given Pain Meds on - Related Data Home Medications Medication Instructions Recorded Confirmed Montelukast Chew [Singulair chew] 10 mg PO DAILY 02/02/18 05/06/21 Prucalopride Succinate [Motegrity] 2 mg PO DAILY 01/14/19 05/06/21 oxyCODONE HCL [oxyCODONE HCL (IR)] 10 mg PO Q8H PRN 04/20/19 05/06/21 Linaclotide [Linzess] 290 mcg PO DAILY PRN 05/24/19 05/06/21 Tegaserod Hydrogen Maleate 6 mg PO AC-BID 05/24/19 05/06/21 [Zelnorm] Lansoprazole 30 mg PO BID 08/27/19 05/06/21 Levothyroxine Sodium [Synthroid] 100 mcg PO DAILY 10/04/19 05/06/21 SUMAtriptan succinate [Imitrex] 100 mg PO BID PRN 05/20/20 05/06/21 Topiramate [Trokendi Xr] 50 mg PO HS 10/07/20 05/06/21 Ondansetron Odt [Zofran Odt] 8 mg PO Q8HR PRN 05/03/21 05/06/21 Promethazine Vc-Codeine Sushma 5 ml PO Q6H PRN 05/03/21 05/06/21 Zipsor 25mg 25 mg PO TID 05/03/21 05/06/21 Previous Rx's Medication Instructions Recorded Aspirin 81 mg PO DAILY 30 Days chewable 10/16/19 Calcium Carbonate [Calcium] 600 mg PO DAILY #30 tablet 05/07/21 Clindamycin [Cleocin] 300 mg PO Q6H #40 capsule 07/26/21 cefUROXime axetiL [Ceftin] 500 mg PO BID 7 Days #14 tab 08/23/21 Sulfamethox-Tmp 800-160Mg [Bactrim 1 tab PEG/G-TUBE Q12HR 5 Days #10 01/10/22 DS 800-160 mg] tab Allergies Allergy/AdvReac Type Severity Reaction Status Date / Time midazolam [From Versed] Allergy Anaphylaxis Verified 01/10/22 21:58 metoclopramide [From Reglan] AdvReac Mild jittery Verified 01/10/22 21:58 prochlorperazine AdvReac Mild JITTERY Verified 01/10/22 21:58 [From Compazine] Review of Systems ROS Statement: Those systems with pertinent positive or pertinent negative responses have been documented in the HPI. ROS Other: All systems not noted in ROS Statement are negative. Past Medical History Past Medical History: Deep Vein Thrombosis (DVT), GERD/Reflux, Pulmonary Embolus (PE), Thyroid Disorder Additional Past Medical History / Comment(s): Idiopathic gastroparesis, takes little in orally-has J tube for feedings and gastric stimulator- chronic abdominal pain, R pulmonary embolism -2017, dvt R upper extremity 2018, pancreatitis once in 2018-thought stone somewhere, hypothyroid, chronic anemia, sinus problems, migraines History of Any Multi-Drug Resistant Organisms: VRE Date of last positivie culture/infection: 08/01/18 MDRO Source:: VRE URINE Past Surgical History: Section, Cholecystectomy, Hernia Repair, Orthopedic Surgery, Tonsillectomy Additional Past Surgical History / Comment(s): Gastric pacer with removal in spring 2017, J tube, gastric stimulator, x3, 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 Mother Family Medical History: No Reported History Additional Family Medical History / Comment(s): Mother is 58yrs old. General Exam Limitations: no limitations General appearance: alert, in no apparent distress Head exam: Present: atraumatic, normocephalic, normal inspection Eye exam: Present: normal appearance, PERRL, EOMI. Absent: scleral icterus, conjunctival injection, periorbital swelling ENT exam: Present: normal exam, mucous membranes moist Neck exam: Present: normal inspection. Absent: tenderness, meningismus, lymphadenopathy Respiratory exam: Present: normal lung sounds bilaterally. Absent: respiratory distress, wheezes, rales, rhonchi, stridor Cardiovascular Exam: Present: regular rate, normal rhythm, normal heart sounds. Absent: systolic murmur, diastolic murmur, rubs, gallop, clicks GI/Abdominal exam: Present: soft, normal bowel sounds. Absent: distended, tenderness, guarding, rebound, rigid Extremities exam: Present: normal inspection, full ROM, normal capillary refill. Absent: tenderness, pedal edema, joint swelling, calf tenderness Back exam: Present: normal inspection Neurological exam: Present: alert, oriented X3, CN II-XII intact Psychiatric exam: Present: normal affect, normal mood Skin exam: Present: warm, dry, intact, normal color. Absent: rash Course Vital Signs 01/10/22 21:51 Temperature 97.8 F Pulse Rate 76 Respiratory 20 Rate Blood Pressure 145/88 O2 Sat by Pulse 99 Oximetry - Reevaluation(s) Reevaluation #1: 01/10/22 23:01 Medical record is reviewed Reevaluation #2: 01/11/22 00:26 Patient symptoms are improved here in the emergency department Reevaluation #3: 01/11/22 00:26 Patient informed results and questions are answered feels good for discharge Medical Decision Making - Medical Decision Making 41 female to the ER for evaluation patient presents today for evaluation of nausea vomiting in the setting of dehydration urinary tract infection with kidney stone. Patient feels improved here in the ER, symptoms are improved and she can be discharged home presents today - Lab Data Result diagrams: 01/10/22 22:56 01/10/22 22:56 Lab Results 01/10/22 01/10/22 01/10/22 Range/Units 22:56 22:56 22:56 WBC 8.4 (3.8-10.6) k/uL RBC 4.79 (3.80-5.40) m/uL Hgb 13.7 (11.4-16.0) gm/dL Hct 40.4 (34.0-46.0) % MCV 84.3 (80.0-100.0) fL MCH 28.7 (25.0-35.0) pg MCHC 34.0 (31.0-37.0) g/dL RDW 12.9 (11.5-15.5) % Plt Count 424 (150-450) k/uL MPV 7.1 Neutrophils % 62 % Lymphocytes % 29 % Monocytes % 4 % Eosinophils % 2 % Basophils % 1 % Neutrophils # 5.2 (1.3-7.7) k/uL Lymphocytes # 2.4 (1.0-4.8) k/uL Monocytes # 0.3 (0-1.0) k/uL Eosinophils # 0.2 (0-0.7) k/uL Basophils # 0.1 (0-0.2) k/uL Sodium 144 (137-145) mmol/L Potassium 3.4 L (3.5-5.1) mmol/L Chloride 111 H (98-107) mmol/L Carbon Dioxide 19 L (22-30) mmol/L Anion Gap 14 mmol/L BUN 12 (7-17) mg/dL Creatinine 0.69 (0.52-1.04) mg/dL Est GFR (CKD-EPI)AfAm >90 (>60 ml/min/1.73 sqM) Est GFR (CKD-EPI)NonAf >90 (>60 ml/min/1.73 sqM) Glucose 78 (74-99) mg/dL Plasma Lactic Acid Frank 1.1 (0.7-2.0) mmol/L Calcium 9.5 (8.4-10.2) mg/dL Phosphorus 4.6 H (2.5-4.5) mg/dL Magnesium 2.1 (1.6-2.3) mg/dL Total Bilirubin 0.3 (0.2-1.3) mg/dL AST 20 (14-36) U/L ALT 26 (4-34) U/L Alkaline Phosphatase 137 H (38-126) U/L Total Protein 6.8 (6.3-8.2) g/dL Albumin 4.5 (3.5-5.0) g/dL Disposition Clinical Impression: Nausea & vomiting, Dehydration, Intractable nausea and vomiting Disposition: HOME SELF-CARE Condition: Good Instructions (If sedation given, give patient instructions): Acute Nausea and Vomiting (ED) Is patient prescribed a controlled substance at d/c from ED?: No Referrals: Karthikeyan Pedro MD [Primary Care Provider] - 1-2 days Time of Disposition: 01:10
[2022-01-10 23:05] LABS: Basophils # (A) 0.1 k/uL (0-0.2); Basophils % (A) 1 %; Eosinophils # (A) 0.2 k/uL (0-0.7); Eosinophils % (A) 2 %; HCT 40.4 % (34.0-46.0); HGB 13.7 gm/dL (11.4-16.0); Lymphocytes # (A) 2.4 k/uL (1.0-4.8); Lymphocytes % (A) 29 %; MCH 28.7 pg (25.0-35.0); MCV 84.3 fL (80.0-100.0); Mean Platelet Volume 7.1; Monocytes # (A) 0.3 k/uL (0-1.0); Monocytes % (A) 4 %; Neutrophils # (A) 5.2 k/uL (1.3-7.7); Neutrophils % (A) 62 %; Platelet Count 424 k/uL (150-450); RBC 4.79 m/uL (3.80-5.40); RDW 12.9 % (11.5-15.5); WBC 8.4 k/uL (3.8-10.6)
[2022-01-10 23:15] LABS: ALT 26 U/L (4-34); AST 20 U/L (14-36); African American GFR (CKD) >90 (>60 ml/min/1.73 sqM); Albumin 4.5 g/dL (3.5-5.0); Alkaline Phosphatase 137 U/L (38-126); Anion Gap 14 mmol/L; Blood Urea Nitrogen 12 mg/dL (7-17); Calcium 9.5 mg/dL (8.4-10.2); Carbon Dioxide 19 mmol/L (22-30); Chloride 111 mmol/L (98-107); Glucose 78 mg/dL (74-99); Magnesium 2.1 mg/dL (1.6-2.3); Non-African American GFR(CKD) >90 (>60 ml/min/1.73 sqM); Phosphorus 4.6 mg/dL (2.5-4.5); Potassium 3.4 mmol/L (3.5-5.1); Sodium 144 mmol/L (137-145); Total Bilirubin 0.3 mg/dL (0.2-1.3); Total Protein 6.8 g/dL (6.3-8.2)
[2022-01-11 01:06] VITALS: BP 122/88; PULSE 77; RESP 16
== END 2022-01-11 01:06 | disposition home or self-care (01) ==
LOC: SUPCPDRO 21:17 → EC 21:17
DX: E86.0 Dehydration (principal); K21.9 Gastro-esophageal reflux disease without esophagitis; E07.9 Disorder of thyroid, unspecified; Z79.82 Long term (current) use of aspirin; Z88.8 Allergy status to other drugs, medicaments and biological substances; Z86.711 Personal history of pulmonary embolism; Z79.890 Hormone replacement therapy; Z79.899 Other long term (current) drug therapy
CPT/HCPCS: 36415; 80053; 83605; 83735; 84100; 85025; 87040; 96365; 96375; 96361 ×2; 99284; J0696; J1170; C9113; J1790

== ENCOUNTER 2022-02-13 14:49 | Emergency (ER) | payer BC ==
[2022-02-13 14:59] VITALS: TEMP 97.9
--- NOTE | 2022-02-13 16:56 | ED ---
General Adult HPI - General Chief complaint: Recheck/Abnormal Lab/Rx Stated complaint: Feeding tube issues Time Seen by Provider: 02/13/22 16:01 Source: patient, RN notes reviewed Mode of arrival: ambulatory Limitations: no limitations - History of Present Illness Initial comments: 41-year-old female presents to the emergency department for evaluation of broken G-tube. Patient states she had a new G-tube placed at [facility] last month and states that it has felt a little strange the past few days, however, today it has completely . Patient reports minimal discomfort. States she has had no abdominal trauma or injury. Has had a feeding tube for the past six years and is used to maintaining it. Denies any fever, chills, nausea, or vomiting currently. - Related Data Home Medications Medication Instructions Recorded Confirmed Montelukast Chew [Singulair chew] 10 mg PO DAILY 02/02/18 05/06/21 Prucalopride Succinate [Motegrity] 2 mg PO DAILY 01/14/19 05/06/21 oxyCODONE HCL [oxyCODONE HCL (IR)] 10 mg PO Q8H PRN 04/20/19 05/06/21 Linaclotide [Linzess] 290 mcg PO DAILY PRN 05/24/19 05/06/21 Tegaserod Hydrogen Maleate 6 mg PO AC-BID 05/24/19 05/06/21 [Zelnorm] Lansoprazole 30 mg PO BID 08/27/19 05/06/21 Levothyroxine Sodium [Synthroid] 100 mcg PO DAILY 10/04/19 05/06/21 SUMAtriptan succinate [Imitrex] 100 mg PO BID PRN 05/20/20 05/06/21 Topiramate [Trokendi Xr] 50 mg PO HS 10/07/20 05/06/21 Ondansetron Odt [Zofran Odt] 8 mg PO Q8HR PRN 05/03/21 05/06/21 Promethazine Vc-Codeine Sushma 5 ml PO Q6H PRN 05/03/21 05/06/21 Zipsor 25mg 25 mg PO TID 05/03/21 05/06/21 Previous Rx's Medication Instructions Recorded Aspirin 81 mg PO DAILY 30 Days chewable 10/16/19 Calcium Carbonate [Calcium] 600 mg PO DAILY #30 tablet 05/07/21 Clindamycin [Cleocin] 300 mg PO Q6H #40 capsule 07/26/21 cefUROXime axetiL [Ceftin] 500 mg PO BID 7 Days #14 tab 08/23/21 Sulfamethox-Tmp 800-160Mg [Bactrim 1 tab PEG/G-TUBE Q12HR 5 Days #10 01/10/22 DS 800-160 mg] tab Allergies Allergy/AdvReac Type Severity Reaction Status Date / Time midazolam [From Versed] Allergy Anaphylaxis Verified 01/10/22 21:58 metoclopramide [From Reglan] AdvReac Mild jittery Verified 01/10/22 21:58 prochlorperazine AdvReac Mild JITTERY Verified 01/10/22 21:58 [From Compazine] Review of Systems ROS Statement: Those systems with pertinent positive or pertinent negative responses have been documented in the HPI. ROS Other: All systems not noted in ROS Statement are negative. Past Medical History Past Medical History: Deep Vein Thrombosis (DVT), GERD/Reflux, Pulmonary Embolus (PE), Thyroid Disorder Additional Past Medical History / Comment(s): Idiopathic gastroparesis, takes little in orally-has J tube for feedings and gastric stimulator- chronic abdominal pain, R pulmonary embolism 5-2017, dvt R upper extremity 2018, pancreatitis once in 2017-thought stone somewhere, hypothyroid, chronic anemia, sinus problems, migraines History of Any Multi-Drug Resistant Organisms: VRE Date of last positivie culture/infection: 08/01/18 MDRO Source:: VRE URINE Past Surgical History: Section, Cholecystectomy, Hernia Repair, Orthopedic Surgery, Tonsillectomy Additional Past Surgical History / Comment(s): Gastric pacer with removal in spring 2017, J tube, gastric stimulator, x3, 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 Mother Family Medical History: No Reported History Additional Family Medical History / Comment(s): Mother is 58yrs old. General Exam Limitations: no limitations General appearance: alert, in no apparent distress ENT exam: Present: mucous membranes moist Respiratory exam: Present: normal lung sounds bilaterally. Absent: respiratory distress, wheezes, rales, rhonchi, stridor Cardiovascular Exam: Present: regular rate, normal rhythm, normal heart sounds. Absent: systolic murmur, diastolic murmur, rubs, gallop, clicks GI/Abdominal exam: Present: soft, normal bowel sounds, other (J-tube site left mid abdomen. Patient has first four inches of 14fr J-Tube. Unable to visualize any portion of retained tube. No drainage; minimal erythema.). Absent: distended, tenderness, guarding, rebound, rigid Neurological exam: Present: alert, oriented X3, CN II-XII intact Psychiatric exam: Present: normal affect, normal mood Course Vital Signs 02/13/22 02/13/22 14:56 22:00 Temperature 97.9 F Pulse Rate 97 60 Respiratory 20 18 Rate Blood Pressure 108/73 122/75 O2 Sat by Pulse 99 98 Oximetry - Reevaluation(s) Reevaluation #1: 02/13/22 17:45 Spoke with patient's on-call surgeon at [facility] regarding patient care and findings. He recommends CT to further evaluate location of retained tube. 02/13/22 20:55 Upon reassessment, patient is resting more comfortably. She has returned from CT. Results pending. 02/13/22 22:[address] Mercado regarding findings from imaging. He suggests options for proceeding and patient wishes to follow up via outpatient route on Tuesday. 02/13/22 23:15 10 syriac page inserted into J-tube track in abdominal wall to maintain patency. Balloon was inflated. End was capped. Tube secured. Discussed purpose and proper care; patient and spouse verbalize understanding. Medical Decision Making - Medical Decision Making 41-year-old female well-known to this emergency department with a history of idiopathic gastroparesis. She has a gastric stimulator and a J-tube. Upon presentation, patient reports her J-tube has completely broken with the first four inches completely , while the remaining tube is no longer vis ualized or palpable in the tract. Patient is able to tolerate some oral intake. Laboratory studies were obtained and are unremarkable. Patient was given IV fluids and pain medicine for chronic discomfort. Imaging was performed and confirms that the tube is no longer in the abdominal wall. I spoke with her surgeon out of [facility]. 10 syriac page catheter was placed in track to preserve patency. Patient will follow up on an outpatient basis Tuesday. Return parameters were discussed with patient and spouse; they've verbalized understanding and agreed with this plan. Attending: Pillo. - Lab Data Result diagrams: 02/13/22 19:32 02/13/22 19:32 Lab Results 02/13/22 02/13/22 Range/Units 19:32 19:32 WBC 8.4 (3.8-10.6) k/uL RBC 4.94 (3.80-5.40) m/uL Hgb 14.2 (11.4-16.0) gm/dL Hct 42.5 (34.0-46.0) % MCV 85.9 (80.0-100.0) fL MCH 28.8 (25.0-35.0) pg MCHC 33.5 (31.0-37.0) g/dL RDW 12.8 (11.5-15.5) % Plt Count 397 (150-450) k/uL MPV 6.9 Neutrophils % 55 % Lymphocytes % 36 % Monocytes % 4 % Eosinophils % 2 % Basophils % 1 % Neutrophils # 4.6 (1.3-7.7) k/uL Lymphocytes # 3.1 (1.0-4.8) k/uL Monocytes # 0.4 (0-1.0) k/uL Eosinophils # 0.2 (0-0.7) k/uL Basophils # 0.1 (0-0.2) k/uL Sodium 139 (137-145) mmol/L Potassium 4.0 (3.5-5.1) mmol/L Chloride 105 (98-107) mmol/L Carbon Dioxide 28 (22-30) mmol/L Anion Gap 6 mmol/L BUN 14 (7-17) mg/dL Creatinine 0.77 (0.52-1.04) mg/dL Est GFR (CKD-EPI)AfAm >90 (>60 ml/min/1.73 sqM) Est GFR (CKD-EPI)NonAf >90 (>60 ml/min/1.73 sqM) Glucose 89 (74-99) mg/dL Calcium 9.0 (8.4-10.2) mg/dL Total Bilirubin 0.2 (0.2-1.3) mg/dL AST 17 (14-36) U/L ALT 14 (4-34) U/L Alkaline Phosphatase 103 (38-126) U/L Total Protein 6.3 (6.3-8.2) g/dL Albumin 4.1 (3.5-5.0) g/dL - Radiology Data Radiology results: report reviewed, image reviewed Interpreted by me: My initial interpretation of image includes visualizing retained left sided jejunostomy tube. There is an implant in the right mid abdomen as well. Awaiting radiologist interpretation. KUB x-ray was obtained. Report was reviewed in its entirety. Impression per Dr. Young if the device over the right mid abdomen and the appearance of the catheters appear unchanged in position compared to last exam. There is a left- sided jejunostomy tube and connection at the skin surface seen. Nonacute bowel gas pattern. Disposition Clinical Impression: Jejunostomy tube fell out Disposition: HOME SELF-CARE Condition: Stable Additional Instructions: Maintain the catheter to preserve track. Maintain J-tube site care. Follow-up on Tuesday for further evaluation and treatment. Return to the emergency department with any new, worsening, or concerning symptoms. Is patient prescribed a controlled substance at d/c from ED?: No Referrals: Karthikeyan Pedro MD [Primary Care Provider] - 1-2 days
--- NOTE | 2022-02-13 17:09 | XR ---
EXAMINATION TYPE: XR KUB DATE OF EXAM: 02/13/2022 COMPARISON: 12/13/2021 HISTORY: Jejunostomy tube is snapped in half TECHNIQUE: Single view FINDINGS: There is no sign of intestinal obstruction or pneumoperitoneum. Fecal pattern is normal. Th ere are clips from cholecystectomy. There is some tubing over the left mid abdomen in uncertain locat ion. There is additional tubing over the midline abdomen which appear separate. There is device impla nted over the right mid abdomen. Bony structures are intact. IMPRESSION: The device over the right mid abdomen and the apparent electrodes or catheters appear unc hanged in position compared to last exam there is a left-sided jejunostomy tube and connection at the skin surface is not seen. Nonacute bowel gas pattern.
[2022-02-13] MEDS ORDERED: SODIUM CHLORIDE 0.9% 1,000 ML IV STA (17:48)
[2022-02-13] MEDS ORDERED: HYDROmorphone 1 MG/ML 1 ML SYRINGE IVP STA ×2 (17:48→22:05)
[2022-02-13] MEDS ORDERED: ONDANSETRON 4 MG/2 ML VIAL IVP STA (17:48)
[2022-02-13 19:48] LABS: Basophils # (A) 0.1 k/uL (0-0.2); Basophils % (A) 1 %; Eosinophils # (A) 0.2 k/uL (0-0.7); Eosinophils % (A) 2 %; HCT 42.5 % (34.0-46.0); HGB 14.2 gm/dL (11.4-16.0); Lymphocytes # (A) 3.1 k/uL (1.0-4.8); Lymphocytes % (A) 36 %; MCH 28.8 pg (25.0-35.0); MCHC 33.5 g/dL (31.0-37.0); MCV 85.9 fL (80.0-100.0); Mean Platelet Volume 6.9; Monocytes # (A) 0.4 k/uL (0-1.0); Monocytes % (A) 4 %; Neutrophils # (A) 4.6 k/uL (1.3-7.7); Neutrophils % (A) 55 %; Platelet Count 397 k/uL (150-450); RBC 4.94 m/uL (3.80-5.40); RDW 12.8 % (11.5-15.5); WBC 8.4 k/uL (3.8-10.6)
[2022-02-13 20:04] LABS: ALT 14 U/L (4-34); AST 17 U/L (14-36); African American GFR (CKD) >90 (>60 ml/min/1.73 sqM); Albumin 4.1 g/dL (3.5-5.0); Alkaline Phosphatase 103 U/L (38-126); Anion Gap 6 mmol/L; Blood Urea Nitrogen 14 mg/dL (7-17); Carbon Dioxide 28 mmol/L (22-30); Chloride 105 mmol/L (98-107); Glucose 89 mg/dL (74-99); Non-African American GFR(CKD) >90 (>60 ml/min/1.73 sqM); Sodium 139 mmol/L (137-145); Total Bilirubin 0.2 mg/dL (0.2-1.3); Total Protein 6.3 g/dL (6.3-8.2)
--- NOTE | 2022-02-13 21:28 | CT ---
EXAMINATION TYPE: CT abdomen pelvis w con DATE OF EXAM: 02/13/2022 COMPARISON: 01/10/2022 HISTORY: Pt states she lost her Feeding tube internally CT DLP: 1288.9 mGycm Automated exposure control for dose reduction was used. CONTRAST: Performed with IV Contrast, patient injected with 100cc mL of Isovue 300. Images obtained from the diaphragm to the floor the pelvis with IV contrast. The lung bases are clear. No pleural effusion. Heart size is normal. No pericardial effusion. There a re clips from cholecystectomy. Liver spleen and stomach pancreas appear intact. There is mild enlarge ment of the biliary tree. No obstructing lesion seen. There are gastric surgical clips. There is anne marie ce implanted over the right anterior mid abdomen. There is jejunostomy tube in the left side of the abdomen. Tube is entirely within the abdomen and no tube extending to the skin surface. There is no adrenal mass. Kidneys show satisfactory contrast opacification. No hydronephrosis. Ureter s are not dilated. No retroperitoneal adenopathy. There is no mesenteric edema. No ascites or free air. No sign of a bowel obstruction. There is intact urinary bladder. No pelvic mass. There is IUD in the uterine fundus. No free fluid in the pelvis. No inguinal hernia. The lumbar spine is intact. No compression fracture. The bony pelvis is intact. IMPRESSION: The jejunostomy tube is within the abdomen and no tubing seen at the skin surface. There is device implanted over the right mid abdomen. Mild ectasia of the biliary tree which appears increased compared to the old exam. No bowel obstructi on.
[2022-02-13 22:11] VITALS: BP 122/75; PULSE 60; RESP 18
== END 2022-02-13 23:29 | disposition home or self-care (01) ==
LOC: EC 14:49
DX: K94.23 Gastrostomy malfunction (principal); I82.409 Acute embolism and thrombosis of unspecified deep veins of unspecified lower extremity; K21.9 Gastro-esophageal reflux disease without esophagitis; I26.99 Other pulmonary embolism without acute cor pulmonale; E03.9 Hypothyroidism, unspecified; F32.A Depression, unspecified; Z79.83 Long term (current) use of bisphosphonates; Z79.890 Hormone replacement therapy; Z88.4 Allergy status to anesthetic agent; Z88.8 Allergy status to other drugs, medicaments and biological substances; Z88.9 Allergy status to unspecified drugs, medicaments and biological substances
CPT/HCPCS: 36415; 80053; 85025; 74018; 74177; 99284; 96374; 96375; 96376; 96361 ×2; J2405; J1170; Q9967

== ENCOUNTER 2022-02-24 03:15 | Emergency (ER) | payer BC ==
[2022-02-24 03:26] VITALS: TEMP 98.3
[2022-02-24] MEDS ORDERED: PANTOPRAZOLE 40 MG/10 ML VIAL IVP STA (03:35)
[2022-02-24] MEDS ORDERED: SODIUM CHLORIDE 0.9% 1,000 ML IV STA ×2 (03:35)
[2022-02-24] MEDS ORDERED: SODIUM CHLORIDE 0.9% 500 ML 500 ML IV STA (03:35)
[2022-02-24] MEDS ORDERED: diphenhydrAMINE 50 MG/ML 1 ML VIAL IVP STA (03:35)
[2022-02-24] MEDS ORDERED: HYDROmorphone 1 MG/ML 1 ML SYRINGE IVP STA ×2 (03:35→05:25)
[2022-02-24 04:02] LABS: Basophils # (A) 0.1 k/uL (0-0.2); Basophils % (A) 0 %; Eosinophils # (A) 0.4 k/uL (0-0.7); Eosinophils % (A) 2 %; HCT 41.2 % (34.0-46.0); HGB 14.2 gm/dL (11.4-16.0); Lymphocytes # (A) 1.7 k/uL (1.0-4.8); Lymphocytes % (A) 10 %; MCH 29.2 pg (25.0-35.0); MCHC 34.4 g/dL (31.0-37.0); Mean Platelet Volume 7.2; Monocytes # (A) 0.9 k/uL (0-1.0); Monocytes % (A) 5 %; Neutrophils # (A) 13.9 k/uL (1.3-7.7); Neutrophils % (A) 81 %; Platelet Count 296 k/uL (150-450); RBC 4.85 m/uL (3.80-5.40); RDW 12.7 % (11.5-15.5); WBC 17.1 k/uL (3.8-10.6)
--- NOTE | 2022-02-24 04:10 | ED ---
Recheck HPI - General Chief Complaint: Abdominal Pain Stated Complaint: Abdominal pain, vomiting Time Seen by Provider: 02/24/22 03:35 Source: patient, RN notes reviewed, old records reviewed, Caregiver Mode of arrival: wheelchair Limitations: no limitations - History of Present Illness Initial Comments: This is a 41-year-old female DF for evaluation patient Dese for evaluation of severe abdominal pain unlike anything she is experiencing for positive nausea no vomiting. Pain again is severe causing her very weakness decreased appetite decreased mobility. Patient has no trauma noted. No no current nausea vomiting or diarrhea. MD Complaint: medication refill request (Pain control) -: days(s) Returns Today for: persistent/worsening pain related to initial visit Symptoms Since Prior Visit: worsening pain Associated Symptoms: none - Related Data Home Medications Medication Instructions Recorded Confirmed Montelukast Chew [Singulair chew] 10 mg PO DAILY 02/02/18 05/06/21 Prucalopride Succinate [Motegrity] 2 mg PO DAILY 01/14/19 05/06/21 oxyCODONE HCL [oxyCODONE HCL (IR)] 10 mg PO Q8H PRN 04/20/19 05/06/21 Linaclotide [Linzess] 290 mcg PO DAILY PRN 05/24/19 05/06/21 Tegaserod Hydrogen Maleate 6 mg PO AC-BID 05/24/19 05/06/21 [Zelnorm] Lansoprazole 30 mg PO BID 08/27/19 05/06/21 Levothyroxine Sodium [Synthroid] 100 mcg PO DAILY 10/04/19 05/06/21 SUMAtriptan succinate [Imitrex] 100 mg PO BID PRN 05/20/20 05/06/21 Topiramate [Trokendi Xr] 50 mg PO HS 10/07/20 05/06/21 Ondansetron Odt [Zofran Odt] 8 mg PO Q8HR PRN 05/03/21 05/06/21 Promethazine Vc-Codeine Sushma 5 ml PO Q6H PRN 05/03/21 05/06/21 Zipsor 25mg 25 mg PO TID 05/03/21 05/06/21 Previous Rx's Medication Instructions Recorded Aspirin 81 mg PO DAILY 30 Days chewable 10/16/19 Calcium Carbonate [Calcium] 600 mg PO DAILY #30 tablet 05/07/21 Clindamycin [Cleocin] 300 mg PO Q6H #40 capsule 07/26/21 cefUROXime axetiL [Ceftin] 500 mg PO BID 7 Days #14 tab 08/23/21 Sulfamethox-Tmp 800-160Mg [Bactrim 1 tab PEG/G-TUBE Q12HR 5 Days #10 01/10/22 DS 800-160 mg] tab Allergies Allergy/AdvReac Type Severity Reaction Status Date / Time midazolam [From Versed] Allergy Anaphylaxis Verified 02/25/22 16:42 metoclopramide [From Reglan] AdvReac Mild jittery Verified 02/25/22 16:42 prochlorperazine AdvReac Mild JITTERY Verified 02/25/22 16:42 [From Compazine] Review of Systems ROS Statement: Those systems with pertinent positive or pertinent negative responses have been documented in the HPI. ROS Other: All systems not noted in ROS Statement are negative. Past Medical History Past Medical History: Deep Vein Thrombosis (DVT), GERD/Reflux, Pulmonary Embolus (PE), Thyroid Disorder Additional Past Medical History / Comment(s): Idiopathic gastroparesis, takes little in orally-has J tube for feedings and gastric stimulator- chronic abdominal pain, R pulmonary embolism 5-2017, dvt R upper extremity 2018, pancreatitis once in 2017-thought stone somewhere, hypothyroid, chronic anemia, sinus problems, migraines History of Any Multi-Drug Resistant Organisms: VRE Date of last positivie culture/infection: 08/01/18 MDRO Source:: VRE URINE Past Surgical History: Section, Cholecystectomy, Hernia Repair, Orthopedic Surgery, Tonsillectomy Additional Past Surgical History / Comment(s): Gastric pacer with removal in spring 2017, J tube, gastric stimulator, x3, 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 Mother Family Medical History: No Reported History Additional Family Medical History / Comment(s): Mother is 58yrs old. General Exam Limitations: no limitations General appearance: alert, in no apparent distress Head exam: Present: atraumatic, normocephalic, normal inspection Eye exam: Present: normal appearance, PERRL, EOMI. Absent: scleral icterus, conjunctival injection, periorbital swelling ENT exam: Present: normal exam, mucous membranes moist Neck exam: Present: normal inspection. Absent: tenderness, meningismus, lymphadenopathy Respiratory exam: Present: normal lung sounds bilaterally. Absent: respiratory distress, wheezes, rales, rhonchi, stridor Cardiovascular Exam: Present: regular rate, normal rhythm, normal heart sounds. Absent: systolic murmur, diastolic murmur, rubs, gallop, clicks GI/Abdominal exam: Present: soft, normal bowel sounds. Absent: distended, tenderness, guarding, rebound, rigid Extremities exam: Present: normal inspection, full ROM, normal capillary refill. Absent: tenderness, pedal edema, joint swelling, calf tenderness Back exam: Present: normal inspection Neurological exam: Present: alert, oriented X3, CN II-XII intact Psychiatric exam: Present: normal affect, normal mood Skin exam: Present: warm, dry, intact, normal color. Absent: rash Course Vital Signs 02/24/22 02/24/22 03:22 07:03 Temperature 98.3 F Pulse Rate 61 74 Respiratory 28 H 15 Rate Blood Pressure 134/74 129/65 O2 Sat by Pulse 98 99 Oximetry - Reevaluation(s) Reevaluation #1: Medical records reviewed Patient symptoms are significantly improved here in the ER Patient informed results and questions answered Medical Decision Making - Medical Decision Making 41 female DF for evaluation. Patient has a for evaluation of cough congestion shortness of breath not feeling well believes is fluid around her heart. Patient is computed tomography scan here in the ER negative for PE nothing on his comment on. No pneumonia and no other reason for chest pain. Patient is given symptomatic treatment and can be discharged home - Lab Data Result diagrams: 02/24/22 03:50 02/24/22 03:50 Lab Results 02/24/22 02/24/22 02/24/22 Range/Units 03:50 03:50 03:50 WBC 17.1 H (3.8-10.6) k/uL RBC 4.85 (3.80-5.40) m/uL Hgb 14.2 (11.4-16.0) gm/dL Hct 41.2 (34.0-46.0) % MCV 85.0 (80.0-100.0) fL MCH 29.2 (25.0-35.0) pg MCHC 34.4 (31.0-37.0) g/dL RDW 12.7 (11.5-15.5) % Plt Count 296 (150-450) k/uL MPV 7.2 Neutrophils % 81 % Lymphocytes % 10 % Monocytes % 5 % Eosinophils % 2 % Basophils % 0 % Neutrophils # 13.9 H (1.3-7.7) k/uL Lymphocytes # 1.7 (1.0-4.8) k/uL Monocytes # 0.9 (0-1.0) k/uL Eosinophils # 0.4 (0-0.7) k/uL Basophils # 0.1 (0-0.2) k/uL Sodium 140 (137-145) mmol/L Potassium 3.9 (3.5-5.1) mmol/L Chloride 110 H (98-107) mmol/L Carbon Dioxide 23 (22-30) mmol/L Anion Gap 7 mmol/L BUN 14 (7-17) mg/dL Creatinine 0.78 (0.52-1.04) mg/dL Est GFR (CKD-EPI)AfAm >90 (>60 ml/min/1.73 sqM) Est GFR (CKD-EPI)NonAf >90 (>60 ml/min/1.73 sqM) Glucose 129 H (74-99) mg/dL Plasma Lactic Acid Frank 1.6 (0.7-2.0) mmol/L Calcium 9.4 (8.4-10.2) mg/dL Total Bilirubin 0.3 (0.2-1.3) mg/dL AST 18 (14-36) U/L ALT 54 H (4-34) U/L Alkaline Phosphatase 122 (38-126) U/L Total Protein 6.4 (6.3-8.2) g/dL Albumin 4.3 (3.5-5.0) g/dL Amylase 64 (30-110) U/L Lipase 44 (23-300) U/L Urine Color Urine Appearance (Clear) Urine pH (5.0-8.0) Ur Specific [place] (1.001-1.035) Urine Protein (Negative) Urine Glucose (UA) (Negative) Urine Ketones (Negative) Urine Blood (Negative) Urine Nitrite (Negative) Urine Bilirubin (Negative) Urine Urobilinogen (<2.0) mg/dL Ur Leukocyte Esterase (Negative) Urine RBC (0-5) /hpf Urine WBC (0-5) /hpf Ur Squamous Epith Cells (0-4) /hpf Urine Bacteria (None) /hpf Hyaline Casts (0-2) /lpf Urine Mucus (None) /hpf Influenza Type A RNA (Not Detectd) Influenza Type B (PCR) (Not Detectd) 02/24/22 02/24/22 Range/Units 04:23 06:32 WBC (3.8-10.6) k/uL RBC (3.80-5.40) m/uL Hgb (11.4-16.0) gm/dL Hct (34.0-46.0) % MCV (80.0-100.0) fL MCH (25.0-35.0) pg MCHC (31.0-37.0) g/dL RDW (11.5-15.5) % Plt Count (150-450) k/uL MPV Neutrophils % % Lymphocytes % % Monocytes % % Eosinophils % % Basophils % % Neutrophils # (1.3-7.7) k/uL Lymphocytes # (1.0-4.8) k/uL Monocytes # (0-1.0) k/uL Eosinophils # (0-0.7) k/uL Basophils # (0-0.2) k/uL Sodium (137-145) mmol/L Potassium (3.5-5.1) mmol/L Chloride (98-107) mmol/L Carbon Dioxide (22-30) mmol/L Anion Gap mmol/L BUN (7-17) mg/dL Creatinine (0.52-1.04) mg/dL Est GFR (CKD-EPI)AfAm (>60 ml/min/1.73 sqM) Est GFR (CKD-EPI)NonAf (>60 ml/min/1.73 sqM) Glucose (74-99) mg/dL Plasma Lactic Acid Frank (0.7-2.0) mmol/L Calcium (8.4-10.2) mg/dL Total Bilirubin (0.2-1.3) mg/dL AST (14-36) U/L ALT (4-34) U/L Alkaline Phosphatase (38-126) U/L Total Protein (6.3-8.2) g/dL Albumin (3.5-5.0) g/dL Amylase (30-110) U/L Lipase (23-300) U/L Urine Color Light Yellow Urine Appearance Clear (Clear) Urine pH 5.5 (5.0-8.0) Ur Specific [place] 1.017 (1.001-1.035) Urine Protein Negative (Negative) Urine Glucose (UA) Negative (Negative) Urine Ketones Negative (Negative) Urine Blood Small H (Negative) Urine Nitrite Negative (Negative) Urine Bilirubin Negative (Negative) Urine Urobilinogen <2.0 (<2.0) mg/dL Ur Leukocyte Esterase Negative (Negative) Urine RBC 23 H (0-5) /hpf Urine WBC 4 (0-5) /hpf Ur Squamous Epith Cells 4 (0-4) /hpf Urine Bacteria Moderate H (None) /hpf Hyaline Casts 1 (0-2) /lpf Urine Mucus Occasional H (None) /hpf Influenza Type A RNA Not Detected (Not Detectd) Influenza Type B (PCR) Not Detected (Not Detectd) - Radiology Data Radiology results: report reviewed (CT head and pelvis is negative for acute disease), image reviewed Disposition Clinical Impression: Abdominal pain Disposition: HOME SELF-CARE Condition: Good Instructions (If sedation given, give patient instructions): Abdominal Pain (ED) Is patient prescribed a controlled substance at d/c from ED?: No Referrals: Karthikeyan Pedro MD [Primary Care Provider] - 1-2 days
[2022-02-24 04:12] LABS: ALT 54 U/L (4-34); AST 18 U/L (14-36); African American GFR (CKD) >90 (>60 ml/min/1.73 sqM); Albumin 4.3 g/dL (3.5-5.0); Alkaline Phosphatase 122 U/L (38-126); Amylase 64 U/L (30-110); Anion Gap 7 mmol/L; Blood Urea Nitrogen 14 mg/dL (7-17); Calcium 9.4 mg/dL (8.4-10.2); Carbon Dioxide 23 mmol/L (22-30); Chloride 110 mmol/L (98-107); Glucose 129 mg/dL (74-99); Lipase 44 U/L (23-300); Non-African American GFR(CKD) >90 (>60 ml/min/1.73 sqM); Potassium 3.9 mmol/L (3.5-5.1); Sodium 140 mmol/L (137-145); Total Bilirubin 0.3 mg/dL (0.2-1.3); Total Protein 6.4 g/dL (6.3-8.2)
--- NOTE | 2022-02-24 05:07 | XR ---
EXAMINATION TYPE: XR KUB DATE OF EXAM: 02/24/2022 COMPARISON: 02/13/2022 HISTORY: Abdominal pain TECHNIQUE: 2 views upright FINDINGS: There is no sign of intestinal obstruction or pneumoperitoneum. Fecal pattern is normal. Th ere are clips from cholecystectomy. There is device implanted over the right mid abdomen. There is re moval of the tubing in the left side of the abdomen compared to old exam. Lung bases are clear. No pa thologic calcifications over the kidneys. There is IUD noted. There is some densities over the left m id abdomen that are amorphous and appear mostly new compared to old exam. These could be surgical josselyn nges or foreign bodies. IMPRESSION: Possible new foreign bodies in the left mid abdomen compared to old exam. There is remova l of the tubing on the left side of the abdomen.
[2022-02-24] MEDS ORDERED: ONDANSETRON 4 MG/2 ML VIAL IVP STA (05:26)
--- NOTE | 2022-02-24 06:37 | CT ---
EXAM: CT Abdomen and Pelvis Without Intravenous Contrast CLINICAL HISTORY: pain TECHNIQUE: Axial computed tomography images of the abdomen and pelvis without intravenous contrast. CTDI is 11.6 mGy and DLP is 588 mGy-cm. This CT exam was performed using one or more of the following dose reduction techniques: automated exposure control, adjustment of the mA and/or kV according to patient size, and/or use of iterative reconstruction technique. COMPARISON: 01/10/2022. FINDINGS: Lung bases: Unremarkable. No mass. No consolidation. ABDOMEN: Liver: Hepatomegaly, measuring up to 19.4 cm in greatest craniocaudad dimension, interval worsening. Gallbladder and bile ducts: Status post cholecystectomy. Pancreas: Unremarkable. No ductal dilation. Spleen: Unremarkable. No splenomegaly. Adrenals: Unremarkable. No mass. Kidneys and ureters: Bilateral nonobstructing stones are again noted, measuring up to 2 mm in the upper pole of the left kidney. Probable 6 mm hemorrhagic versus proteinaceous cyst in the midpole of the right kidney, more conspicuous on this study than the prior. Stomach and bowel: Evaluation of the bowel is limited without the use of oral and IV contrast material. Postoperative changes are noted with left-sided ostomy. Correlate with patient's surgical history as it was not provided. Tube has been inserted in the ostomy. Bowel intussusception is seen by the postoperative changes in the left mid abdomen without definitive evidence of a bowel obstruction (series 2 1, image 72), which may be transient . No free air. No significant free fluid. No mucosal thickening. PELVIS: Appendix: No findings to suggest acute appendicitis. Bladder: Unremarkable. No stones. Reproductive: IUD seen within the endometrial cavity. ABDOMEN and PELVIS: Intraperitoneal space: Trace pelvic free fluid is likely physiologic. Bones/joints: No acute fracture. No dislocation. Soft tissues: See below. Vasculature: Unremarkable. No abdominal aortic aneurysm. Lymph nodes: Unremarkable. No enlarged lymph nodes. Tubes, lines and devices: Neurostimulator is seen in the subcutaneous fat of the right anterior abdominal wall with lead tips terminating by the distal stomach, as seen on prior study. IMPRESSION: 1. Evaluation of the bowel is limited without the use of oral and IV contrast material. Postoperative changes are noted with left-sided ostomy. Correlate with patient's surgical history as it was not provided. Tube has been inserted in the ostomy. Bowel intussusception is seen by the postoperative changes in the left mid abdomen without definitive evidence of a bowel obstruction (series 2 1, image 72), which may be transient . No free air. No significant free fluid. Repeat CT of the abdomen/pelvis with oral and IV contrast recommended for further evaluation. 2. Hepatomegaly, interval worsening.
[2022-02-24 07:03] VITALS: BP 129/65; PULSE 74; RESP 15
[2022-02-24 07:06] LABS: Appearance,Urine Clear (Clear); Bacteria,Urine Moderate /hpf; Bilirubin,Urine Negative (Negative); Blood,Urine Small (Negative); Color,Urine Light Yellow; Glucose,Urine (UA) Negative (Negative); Hyaline Casts,Urine 1 /lpf (0-2); Ketones,Urine Negative (Negative); Leukocyte Esterase,Urine Negative (Negative); Mucus,Urine Occasional /hpf; Nitrite,Urine Negative (Negative); PH, Urine 5.5 (5.0-8.0); Protein,Urine Negative (Negative); RBC,Urine 23 /hpf (0-5); Specific Gravity,Urine 1.017 (1.001-1.035); Squamous Epithelial Cell,Urine 4 /hpf (0-4); Urobilinogen,Urine <2.0 mg/dL (<2.0); WBC,Urine 4 /hpf (0-5)
== END 2022-02-24 07:04 | disposition home or self-care (01) ==
LOC: EC 03:15
DX: R10.9 Unspecified abdominal pain (principal); Z88.4 Allergy status to anesthetic agent; Z90.49 Acquired absence of other specified parts of digestive tract; E03.9 Hypothyroidism, unspecified; F32.A Depression, unspecified; Z88.8 Allergy status to other drugs, medicaments and biological substances; Z86.73 Personal history of transient ischemic attack (TIA), and cerebral infarction without residual deficits; Z79.890 Hormone replacement therapy; K21.9 Gastro-esophageal reflux disease without esophagitis; Z86.711 Personal history of pulmonary embolism; Z79.899 Other long term (current) drug therapy
CPT/HCPCS: 99284; 96374; 96375 ×4; 96376; 96361 ×3; 36415; 80053; 82150; 83605; 83690; 85025; 81001; 87040; 87502; 74018; 74176; J1200; J2405; J1170; C9113; J1790

== ENCOUNTER 2022-02-24 19:28 | Emergency (ER) | payer BC ==
[2022-02-24 19:32] VITALS: TEMP 98.7
[2022-02-24] MEDS ORDERED: HYDROmorphone 1 MG/ML 1 ML SYRINGE IVP STA (19:56)
[2022-02-24] MEDS ORDERED: SODIUM CHLORIDE 0.9% 1,000 ML IV STA (19:56)
[2022-02-24] MEDS ORDERED: ONDANSETRON 4 MG/2 ML VIAL IVP STA ×2 (19:56→22:00)
--- NOTE | 2022-02-24 20:07 | ED ---
General Adult HPI - General Chief complaint: Abdominal Pain Stated complaint: ABD Pain Time Seen by Provider: 02/24/22 19:35 Source: family, RN notes reviewed Mode of arrival: ambulatory Limitations: no limitations - History of Present Illness Initial comments: 41-year-old female presents to the emergency department with mid abdominal pain, onset yesterday. Patient has a lengthy GI history including idiopathic gastroparesis. States this pain is different than her typical abdominal pain. Is tolerating less oral intake than usual and has had episodes of vomiting today. Was seen last night for the same complaint. Sherrill improved after fluids and medicines and was discharged home to follow up outpatient. Saw her PCP for recheck today who encouraged her to return to the ED if pain resumed. States she is scheduled to see her GI doctor next week, though it is to have her J-Tube replaced. Has been passing small amount of soft, formed stool. Denies fever, chills, dizziness, headache, chest pain, shortness of breath, diarrhea, hematochezia, and dysuria. - Related Data Home Medications Medication Instructions Recorded Confirmed Montelukast Chew [Singulair chew] 10 mg PO DAILY 02/02/18 05/06/21 Prucalopride Succinate [Motegrity] 2 mg PO DAILY 01/14/19 05/06/21 oxyCODONE HCL [oxyCODONE HCL (IR)] 10 mg PO Q8H PRN 04/20/19 05/06/21 Linaclotide [Linzess] 290 mcg PO DAILY PRN 05/24/19 05/06/21 Tegaserod Hydrogen Maleate 6 mg PO AC-BID 05/24/19 05/06/21 [Zelnorm] Lansoprazole 30 mg PO BID 08/27/19 05/06/21 Levothyroxine Sodium [Synthroid] 100 mcg PO DAILY 10/04/19 05/06/21 SUMAtriptan succinate [Imitrex] 100 mg PO BID PRN 05/20/20 05/06/21 Topiramate [Trokendi Xr] 50 mg PO HS 10/07/20 05/06/21 Ondansetron Odt [Zofran Odt] 8 mg PO Q8HR PRN 05/03/21 05/06/21 Promethazine Vc-Codeine Sushma 5 ml PO Q6H PRN 05/03/21 05/06/21 Zipsor 25mg 25 mg PO TID 05/03/21 05/06/21 Previous Rx's Medication Instructions Recorded Aspirin 81 mg PO DAILY 30 Days chewable 10/16/19 Calcium Carbonate [Calcium] 600 mg PO DAILY #30 tablet 05/07/21 Clindamycin [Cleocin] 300 mg PO Q6H #40 capsule 07/26/21 cefUROXime axetiL [Ceftin] 500 mg PO BID 7 Days #14 tab 08/23/21 Sulfamethox-Tmp 800-160Mg [Bactrim 1 tab PEG/G-TUBE Q12HR 5 Days #10 01/10/22 DS 800-160 mg] tab Allergies Allergy/AdvReac Type Severity Reaction Status Date / Time midazolam [From Versed] Allergy Anaphylaxis Verified 02/24/22 19:32 metoclopramide [From Reglan] AdvReac Mild jittery Verified 02/24/22 19:32 prochlorperazine AdvReac Mild JITTERY Verified 02/24/22 19:32 [From Compazine] Review of Systems ROS Statement: Those systems with pertinent positive or pertinent negative responses have been documented in the HPI. ROS Other: All systems not noted in ROS Statement are negative. Past Medical History Past Medical History: Deep Vein Thrombosis (DVT), GERD/Reflux, Pulmonary Embolus (PE), Thyroid Disorder Additional Past Medical History / Comment(s): Idiopathic gastroparesis, takes little in orally-has J tube for feedings and gastric stimulator- chronic abdominal pain, R pulmonary embolism -2017, dvt R upper extremity 2018, pancreatitis once in 2017-thought stone somewhere, hypothyroid, chronic anemia, sinus problems, migraines History of Any Multi-Drug Resistant Organisms: VRE Date of last positivie culture/infection: 08/01/18 MDRO Source:: VRE URINE Past Surgical History: Section, Cholecystectomy, Hernia Repair, Orthopedic Surgery, Tonsillectomy Additional Past Surgical History / Comment(s): Gastric pacer with removal in spring 2017, J tube, gastric stimulator, x3, 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 Mother Family Medical History: No Reported History Additional Family Medical History / Comment(s): Mother is 58yrs old. General Exam Limitations: no limitations (Well-developed, well-nourished female in no acute d istress aside from pain.) General appearance: alert, in no apparent distress Eye exam: Present: normal appearance, PERRL, EOMI. Absent: scleral icterus, conjunctival injection ENT exam: Present: mucous membranes moist Neck exam: Present: normal inspection, full ROM. Absent: tenderness Respiratory exam: Present: normal lung sounds bilaterally. Absent: respiratory distress, wheezes, rales, rhonchi, stridor, chest wall tenderness Cardiovascular Exam: Present: regular rate, normal rhythm, normal heart sounds. Absent: systolic murmur, diastolic murmur, rubs, gallop, clicks GI/Abdominal exam: Present: soft, tenderness (Discomfort is midline, periumbilical), normal bowel sounds, other (Hess catheter in J-Tube track as placeholder until replacment. Skin intact, dressing c/d/i). Absent: distended, guarding, rebound, rigid Back exam: Absent: CVA tenderness (R), CVA tenderness (L) Neurological exam: Present: alert, oriented X3, CN II-XII intact Psychiatric exam: Present: normal affect, normal mood Skin exam: Present: warm, dry, intact, normal color. Absent: rash Course Vital Signs 02/24/22 02/24/22 02/25/22 19:30 21:30 02:00 Temperature 98.7 F Pulse Rate 99 102 H 78 Respiratory 18 17 15 Rate Blood Pressure 137/77 129/68 O2 Sat by Pulse 98 100 100 Oximetry - Reevaluation(s) Reevaluation #1: 02/24/22 20:00 Patient's medical record reviewed. In recent visit, patient did have a malfunction of her J-tube in which a significant portion was retained within the large intestines. Patient states she did pass the retained portion of the tube on Tuesday. Hess in J-tube track is intact. Patient is scheduled to see her surgeon on Tuesday for a replacement J-tube. 02/24/22 22:00 Upon reassessment, patient continues to have abdominal discomfort, though reports it is somewhat improved after medications. Discussed CT with oral and IV contrast and she is agreeable with this plan of care. 02/25/22 01:35 Results were discussed with patient and spouse. They are reassured by these findings and patient verbalizes readiness for discharge. Medical Decision Making - Medical Decision Making This is a pleasant 41-year-old female with a history of idiopathic gastroparesis and GI-related complications. Patient presents to the emergency department this evening for a repeat visit regarding mid to lower abdominal pain. Upon exam, patient initially appears to be feeling poorly with episodes of dry heaving, though is in no acute distress. In respect for sure decision making, CT of the abdomen and pelvis with oral and IV contrast was obtained in addition to laboratory studies. Patient was given Dilaudid, Zofran, and droperidol with some improvement. She was able to tolerate the oral contrast prep. CAT scan showed no acute findings; the concerning area of intussusception resolved. Laboratory studies are improved when compared to previous visit. Patient is reassured by these findings therefore will be discharged home to follow up with her surgeon and PCP as scheduled. Return parameters were discussed in detail. Patient verbalizes understanding and agrees with this plan. Attending: Josette. - Lab Data Result diagrams: 02/24/22 20:28 02/24/22 20:28 Lab Results 02/24/22 02/24/22 02/24/22 Range/Units 20:28 20:28 20:28 WBC 11.5 H (3.8-10.6) k/uL RBC 4.49 (3.80-5.40) m/uL Hgb 13.3 (11.4-16.0) gm/dL Hct 37.8 (34.0-46.0) % MCV 84.3 (80.0-100.0) fL MCH 29.6 (25.0-35.0) pg MCHC 35.1 (31.0-37.0) g/dL RDW 12.8 (11.5-15.5) % Plt Count 250 (150-450) k/uL MPV 7.4 Neutrophils % 75 % Lymphocytes % 15 % Monocytes % 6 % Eosinophils % 3 % Basophils % 0 % Neutrophils # 8.5 H (1.3-7.7) k/uL Lymphocytes # 1.8 (1.0-4.8) k/uL Monocytes # 0.6 (0-1.0) k/uL Eosinophils # 0.4 (0-0.7) k/uL Basophils # 0.0 (0-0.2) k/uL Sodium 139 (137-145) mmol/L Potassium 3.6 (3.5-5.1) mmol/L Chloride 109 H (98-107) mmol/L Carbon Dioxide 24 (22-30) mmol/L Anion Gap 6 mmol/L BUN 10 (7-17) mg/dL Creatinine 0.67 (0.52-1.04) mg/dL Est GFR (CKD-EPI)AfAm >90 (>60 ml/min/1.73 sqM) Est GFR (CKD-EPI)NonAf >90 (>60 ml/min/1.73 sqM) Glucose 114 H (74-99) mg/dL Plasma Lactic Acid Frank 1.2 (0.7-2.0) mmol/L Calcium 8.6 (8.4-10.2) mg/dL Total Bilirubin 0.4 (0.2-1.3) mg/dL AST 18 (14-36) U/L ALT 45 H (4-34) U/L Alkaline Phosphatase 114 (38-126) U/L Total Protein 5.9 L (6.3-8.2) g/dL Albumin 3.7 (3.5-5.0) g/dL Lipase 44 (23-300) U/L Urine Color Urine Appearance (Clear) Urine pH (5.0-8.0) Ur Specific [place] (1.001-1.035) Urine Protein (Negative) Urine Glucose (UA) (Negative) Urine Ketones (Negative) Urine Blood (Negative) Urine Nitrite (Negative) Urine Bilirubin (Negative) Urine Urobilinogen (<2.0) mg/dL Ur Leukocyte Esterase (Negative) 02/24/22 Range/Units 21:30 WBC (3.8-10.6) k/uL RBC (3.80-5.40) m/uL Hgb (11.4-16.0) gm/dL Hct (34.0-46.0) % MCV (80.0-100.0) fL MCH (25.0-35.0) pg MCHC (31.0-37.0) g/dL RDW (11.5-15.5) % Plt Count (150-450) k/uL MPV Neutrophils % % Lymphocytes % % Monocytes % % Eosinophils % % Basophils % % Neutrophils # (1.3-7.7) k/uL Lymphocytes # (1.0-4.8) k/uL Monocytes # (0-1.0) k/uL Eosinophils # (0-0.7) k/uL Basophils # (0-0.2) k/uL Sodium (137-145) mmol/L Potassium (3.5-5.1) mmol/L Chloride (98-107) mmol/L Carbon Dioxide (22-30) mmol/L Anion Gap mmol/L BUN (7-17) mg/dL Creatinine (0.52-1.04) mg/dL Est GFR (CKD-EPI)AfAm (>60 ml/min/1.73 sqM) Est GFR (CKD-EPI)NonAf (>60 ml/min/1.73 sqM) Glucose (74-99) mg/dL Plasma Lactic Acid Frank (0.7-2.0) mmol/L Calcium (8.4-10.2) mg/dL Total Bilirubin (0.2-1.3) mg/dL AST (14-36) U/L ALT (4-34) U/L Alkaline Phosphatase (38-126) U/L Total Protein (6.3-8.2) g/dL Albumin (3.5-5.0) g/dL Lipase (23-300) U/L Urine Color Light Yellow Urine Appearance Clear (Clear) Urine pH 5.5 (5.0-8.0) Ur Specific [place] 1.015 (1.001-1.035) Urine Protein Negative (Negative) Urine Glucose (UA) Negative (Negative) Urine Ketones Negative (Negative) Urine Blood Negative (Negative) Urine Nitrite Negative (Negative) Urine Bilirubin Negative (Negative) Urine Urobilinogen <2.0 (<2.0) mg/dL Ur Leukocyte Esterase Negative (Negative) - Radiology Data Radiology results: report reviewed, image reviewed Interpreted by me: Initial review of CT of the abdomen and pelvis reveals no unanticipated findings. CT of the abdomen and pelvis with oral and IV contrast was obtained. Report was reviewed in its entirety. Impression per Dr. Young is jejunostomy tube is in good position. No evidence of a bowel obstruction. No acute abnormality of the abdomen and pelvis. No adverse change compared to exam earlier today. There is clearing of the intussusception appearance of the jejunum in the left upper quadrant compared to old exam. Disposition Clinical Impression: Abdominal pain Disposition: HOME SELF-CARE Condition: Stable Instructions (If sedation given, give patient instructions): Abdominal Pain (E D) Additional Instructions: Continue your home medication regimen as prescribed. Follow-up with your surgeon on Tuesday as scheduled. Return to the emergency department with any new, worsening, or concerning symptoms. Is patient prescribed a controlled substance at d/c from ED?: No Referrals: Karthikeyan Pedro MD [Primary Care Provider] - 1-2 days Time of Disposition: 01:41
[2022-02-24 20:43] LABS: Basophils % (A) 0 %; Eosinophils # (A) 0.4 k/uL (0-0.7); Eosinophils % (A) 3 %; HCT 37.8 % (34.0-46.0); HGB 13.3 gm/dL (11.4-16.0); Lymphocytes # (A) 1.8 k/uL (1.0-4.8); Lymphocytes % (A) 15 %; MCH 29.6 pg (25.0-35.0); MCHC 35.1 g/dL (31.0-37.0); MCV 84.3 fL (80.0-100.0); Mean Platelet Volume 7.4; Monocytes # (A) 0.6 k/uL (0-1.0); Monocytes % (A) 6 %; Neutrophils # (A) 8.5 k/uL (1.3-7.7); Neutrophils % (A) 75 %; Platelet Count 250 k/uL (150-450); RBC 4.49 m/uL (3.80-5.40); RDW 12.8 % (11.5-15.5); WBC 11.5 k/uL (3.8-10.6)
[2022-02-24 21:09] LABS: ALT 45 U/L (4-34); AST 18 U/L (14-36); African American GFR (CKD) >90 (>60 ml/min/1.73 sqM); Albumin 3.7 g/dL (3.5-5.0); Alkaline Phosphatase 114 U/L (38-126); Anion Gap 6 mmol/L; Blood Urea Nitrogen 10 mg/dL (7-17); Calcium 8.6 mg/dL (8.4-10.2); Carbon Dioxide 24 mmol/L (22-30); Chloride 109 mmol/L (98-107); Glucose 114 mg/dL (74-99); Lipase 44 U/L (23-300); Non-African American GFR(CKD) >90 (>60 ml/min/1.73 sqM); Potassium 3.6 mmol/L (3.5-5.1); Sodium 139 mmol/L (137-145); Total Bilirubin 0.4 mg/dL (0.2-1.3); Total Protein 5.9 g/dL (6.3-8.2)
[2022-02-24 21:42] LABS: Appearance,Urine Clear (Clear); Bilirubin,Urine Negative (Negative); Blood,Urine Negative (Negative); Color,Urine Light Yellow; Glucose,Urine (UA) Negative (Negative); Ketones,Urine Negative (Negative); Leukocyte Esterase,Urine Negative (Negative); Nitrite,Urine Negative (Negative); PH, Urine 5.5 (5.0-8.0); Protein,Urine Negative (Negative); Specific Gravity,Urine 1.015 (1.001-1.035); Urobilinogen,Urine <2.0 mg/dL (<2.0)
[2022-02-24] MEDS ORDERED: HYDROmorphone 0.5 MG/0.5 ML SYRINGE IVP STA ×2 (22:00→23:58)
[2022-02-24] MEDS: IOPAMIDOL CONTRAST (ORAL USE) VIAL PO PRN ×2 (22:56→22:57)
--- NOTE | 2022-02-25 01:12 | CT ---
EXAMINATION TYPE: CT abdomen pelvis w con DATE OF EXAM: 02/25/2022 COMPARISON: 02/24/2022 HISTORY: hx of idiopathic gastropasresis, has J-tube and gastric stimulator CT DLP: 1016.8 mGycm Automated exposure control for dose reduction was used. CONTRAST: Performed with IV Contrast, patient injected with 100 mL of Isovue 300. Images obtained from the diaphragm to the floor the pelvis with the IV contrast. There is oral contra st. Lung bases are clear. No pleural effusion. Heart size is normal. No pericardial effusion. There are clips from cholecystectomy. Liver spleen pancreas appear intact. There is jejunostomy tube noted. Liver shows no focal defect. The bile ducts are not dilated. No pancreatic mass. There is cont rast in the stomach and small bowel and large bowel down to the proximal sigmoid colon. There is no adrenal mass. Kidneys show satisfactory contrast opacification. No hydronephrosis. Ureter s are not dilated. No retroperitoneal adenopathy. There is neural stimulator leads noted in the left upper quadrant. The device is implanted over the right anterior mid abdomen. Bladder distends smoothly. Uterus is anteverted. No pelvic mass. No free fluid in the pelvis. No ingu inal hernia. There is no mesenteric edema. No ascites or free air. No sign of a bowel obstruction. The lumbar vertebrae have normal alignment. Posterior elements are intact. Disc spaces are normal. Sa croiliac joints are intact. Hip joint spaces are fairly normal. IMPRESSION: Jejunostomy tube in good position. No evidence of a bowel obstruction. No acute abnormality of the ab domen and pelvis. No adverse change compared to exam earlier today. There is clearing of the intussus ception appearance of the jejunum in the left upper quadrant compared to old exam.
[2022-02-25 02:01] VITALS: BP 129/68; PULSE 78; RESP 15
== END 2022-02-25 02:01 | disposition home or self-care (01) ==
LOC: EC 19:28
DX: R10.30 Lower abdominal pain, unspecified (principal); K21.9 Gastro-esophageal reflux disease without esophagitis; E03.9 Hypothyroidism, unspecified; Z93.4 Other artificial openings of gastrointestinal tract status; Z86.718 Personal history of other venous thrombosis and embolism; Z86.711 Personal history of pulmonary embolism; Z90.49 Acquired absence of other specified parts of digestive tract; Z88.4 Allergy status to anesthetic agent; Z88.8 Allergy status to other drugs, medicaments and biological substances; Z79.82 Long term (current) use of aspirin; Z79.890 Hormone replacement therapy; Z79.899 Other long term (current) drug therapy
CPT/HCPCS: 36415; 80053; 83605; 83690; 85025; 81003; 74177; 99284; 96374; 96375; 96376 ×2; 96361; J2405; J1170 ×3; Q9967 ×2; J1790

== ENCOUNTER 2022-02-25 16:38 | Emergency (ER) | payer BC ==
[2022-02-25 16:42] VITALS: RESP 18; TEMP 98.6
--- NOTE | 2022-02-25 17:08 | ED ---
Extremity Problem HPI - General Chief complaint: Extremity Problem,Nontraumatic Stated complaint: lt hand swelling, pain, numbness Time Seen by Provider: 02/25/22 16:43 Source: patient, family Mode of arrival: ambulatory Limitations: no limitations - History of Present Illness Initial comments: Patient is a 41-year-old female presenting with chief complaint of swelling to the left upper extremity. Patient noticed swelling today. Patient had a port placed one week ago. She is currently on Arixtra and low-dose aspirin, Arixtra was stopped prior to the procedure, patient was on Lovenox for 3 days and stopped blood thinners 24 hours prior to procedure. Patient resumed taking her blood thinners on Tuesday the . Patient has history of DVTs. She denies any chest pain or difficulty breathing. Admits to some soreness around the port site, which has been consistent through last week however it is worse today. No fever or chills. No nausea or vomiting. No numbness or tingling. - Related Data Home Medications Medication Instructions Recorded Confirmed Montelukast Chew [Singulair chew] 10 mg PO DAILY 02/02/18 05/06/21 Prucalopride Succinate [Motegrity] 2 mg PO DAILY 01/14/19 05/06/21 oxyCODONE HCL [oxyCODONE HCL (IR)] 10 mg PO Q8H PRN 04/20/19 05/06/21 Linaclotide [Linzess] 290 mcg PO DAILY PRN 05/24/19 05/06/21 Tegaserod Hydrogen Maleate 6 mg PO AC-BID 05/24/19 05/06/21 [Zelnorm] Lansoprazole 30 mg PO BID 08/27/19 05/06/21 Levothyroxine Sodium [Synthroid] 100 mcg PO DAILY 10/04/19 05/06/21 SUMAtriptan succinate [Imitrex] 100 mg PO BID PRN 05/20/20 05/06/21 Topiramate [Trokendi Xr] 50 mg PO HS 10/07/20 05/06/21 Ondansetron Odt [Zofran Odt] 8 mg PO Q8HR PRN 05/03/21 05/06/21 Promethazine Vc-Codeine Sushma 5 ml PO Q6H PRN 05/03/21 05/06/21 Zipsor 25mg 25 mg PO TID 05/03/21 05/06/21 Previous Rx's Medication Instructions Recorded Aspirin 81 mg PO DAILY 30 Days chewable 10/16/19 Calcium Carbonate [Calcium] 600 mg PO DAILY #30 tablet 05/07/21 Clindamycin [Cleocin] 300 mg PO Q6H #40 capsule 07/26/21 cefUROXime axetiL [Ceftin] 500 mg PO BID 7 Days #14 tab 08/23/21 Sulfamethox-Tmp 800-160Mg [Bactrim 1 tab PEG/G-TUBE Q12HR 5 Days #10 01/10/22 DS 800-160 mg] tab Allergies Allergy/AdvReac Type Severity Reaction Status Date / Time midazolam [From Versed] Allergy Anaphylaxis Verified 02/25/22 16:42 metoclopramide [From Reglan] AdvReac Mild jittery Verified 02/25/22 16:42 prochlorperazine AdvReac Mild JITTERY Verified 02/25/22 16:42 [From Compazine] Review of Systems ROS Statement: Those systems with pertinent positive or pertinent negative responses have been documented in the HPI. ROS Other: All systems not noted in ROS Statement are negative. Past Medical History Past Medical History: Deep Vein Thrombosis (DVT), GERD/Reflux, Pulmonary Embolus (PE), Thyroid Disorder Additional Past Medical History / Comment(s): Idiopathic gastroparesis, takes little in orally-has J tube for feedings and gastric stimulator- chronic abdominal pain, R pulmonary embolism 5-2017, dvt R upper extremity 2018, pancreatitis once in 2017-thought stone somewhere, hypothyroid, chronic anemia, sinus problems, migraines History of Any Multi-Drug Resistant Organisms: VRE Date of last positivie culture/infection: 08/01/18 MDRO Source:: VRE URINE Past Surgical History: Section, Cholecystectomy, Hernia Repair, Orthopedic Surgery, Tonsillectomy Additional Past Surgical History / Comment(s): Gastric pacer with removal in spring 2017, J tube, gastric stimulator, x3, 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 Mother Family Medical History: No Reported History Additional Family Medical History / Comment(s): Mother is 58yrs old. General Exam Limitations: no limitations General appearance: alert, in no apparent distress Head exam: Present: atraumatic, normocephalic, normal inspection Eye exam: Present: normal appearance Neck exam: Present: normal inspection Respiratory exam: Present: normal lung sounds bilaterally. Absent: respiratory distress, wheezes, rales, rhonchi, stridor Cardiovascular Exam: Present: normal rhythm, tachycardia, normal heart sounds. Absent: systolic murmur, diastolic murmur, rubs, gallop, clicks Extremities exam: Present: full ROM, other (Left arm swelling). Absent: tenderness Left Vascular: Present: radial pulse (2+). Absent: vascular compromise Neurological exam: Present: alert, oriented X3, CN II-XII intact Psychiatric exam: Present: normal affect, normal mood Skin exam: Present: warm, dry, intact, normal color. Absent: rash Course Vital Signs 02/25/22 02/25/22 16:40 18:15 Temperature 98.6 F Pulse Rate 105 H 79 Respiratory 18 18 Rate Blood Pressure 151/96 125/83 O2 Sat by Pulse 97 99 Oximetry Medical Decision Making - Medical Decision Making Patient is a 41-year-old female who recently had left-sided chest port placed presenting with chief complaint of left arm swelling. Patient has history of DVTs, concerned for DVT. She is currently on anticoagulation. On physical examination she is neurovascularly intact, there is some swelling to the left arm. Venous Doppler study shows no evidence of DVT. Chest CTA shows no evidence of pulmonary embolism. May be due to postop swelling. Patient should follow-up with her surgeon. Follow-up with PCP. Report back to ER with any new or worsening symptoms. Discussed return parameters and answered all questions. Patient conveyed verbal understanding and agreed to the plan. I discussed this case in detail with my attending Dr. Pelletier - Lab Data Result diagrams: 02/25/22 17:25 02/25/22 17:25 Lab Results 02/25/22 02/25/2222 Range/Units 17:25 17:25 17:25 WBC 11.1 H (3.8-10.6) k/uL RBC 4.21 (3.80-5.40) m/uL Hgb 12.0 (11.4-16.0) gm/dL Hct 36.0 (34.0-46.0) % MCV 85.4 (80.0-100.0) fL MCH 28.6 (25.0-35.0) pg MCHC 33.5 (31.0-37.0) g/dL RDW 12.9 (11.5-15.5) % Plt Count 251 (150-450) k/uL MPV 7.4 Neutrophils % 69 % Lymphocytes % 21 % Monocytes % 6 % Eosinophils % 2 % Basophils % 1 % Neutrophils # 7.7 (1.3-7.7) k/uL Lymphocytes # 2.3 (1.0-4.8) k/uL Monocytes # 0.7 (0-1.0) k/uL Eosinophils # 0.2 (0-0.7) k/uL Basophils # 0.1 (0-0.2) k/uL PT 10.3 (9.0-12.0) sec INR 0.9 (<1.2) APTT 24.2 (22.0-30.0) sec Sodium 138 (137-145) mmol/L Potassium 3.8 (3.5-5.1) mmol/L Chloride 110 H (98-107) mmol/L Carbon Dioxide 22 (22-30) mmol/L Anion Gap 6 mmol/L BUN 8 (7-17) mg/dL Creatinine 0.76 (0.52-1.04) mg/dL Est GFR (CKD-EPI)AfAm >90 (>60 ml/min/1.73 sqM) Est GFR (CKD-EPI)NonAf >90 (>60 ml/min/1.73 sqM) Glucose 76 (74-99) mg/dL Calcium 8.9 (8.4-10.2) mg/dL Total Bilirubin 0.4 (0.2-1.3) mg/dL AST 33 (14-36) U/L ALT 46 H (4-34) U/L Alkaline Phosphatase 127 H (38-126) U/L Total Protein 5.8 L (6.3-8.2) g/dL Albumin 3.7 (3.5-5.0) g/dL Disposition Clinical Impression: Edema of upper extremity Disposition: HOME SELF-CARE Condition: Good Instructions (If sedation given, give patient instructions): Edema (ED) Additional Instructions: Follow-up with PCP. Report back to ER with any new or worsening symptoms. Is patient prescribed a controlled substance at d/c from ED?: No Referrals: Karthikeyan Pedro MD [Primary Care Provider] - 1-2 days Time of Disposition: 19:43
[2022-02-25] MEDS ORDERED: HYDROmorphone 1 MG/ML 1 ML SYRINGE IVP STA (17:23)
[2022-02-25 17:41] LABS: Basophils # (A) 0.1 k/uL (0-0.2); Basophils % (A) 1 %; Eosinophils # (A) 0.2 k/uL (0-0.7); Eosinophils % (A) 2 %; Lymphocytes # (A) 2.3 k/uL (1.0-4.8); Lymphocytes % (A) 21 %; MCH 28.6 pg (25.0-35.0); MCHC 33.5 g/dL (31.0-37.0); MCV 85.4 fL (80.0-100.0); Mean Platelet Volume 7.4; Monocytes # (A) 0.7 k/uL (0-1.0); Monocytes % (A) 6 %; Neutrophils # (A) 7.7 k/uL (1.3-7.7); Neutrophils % (A) 69 %; Platelet Count 251 k/uL (150-450); RBC 4.21 m/uL (3.80-5.40); RDW 12.9 % (11.5-15.5); WBC 11.1 k/uL (3.8-10.6)
[2022-02-25 17:51] LABS: African American GFR (CKD) >90 (>60 ml/min/1.73 sqM); Anion Gap 6 mmol/L; Blood Urea Nitrogen 8 mg/dL (7-17); Carbon Dioxide 22 mmol/L (22-30); Chloride 110 mmol/L (98-107); Glucose 76 mg/dL (74-99); Non-African American GFR(CKD) >90 (>60 ml/min/1.73 sqM); Potassium 3.8 mmol/L (3.5-5.1); Sodium 138 mmol/L (137-145)
[2022-02-25 17:52] LABS: ALT 46 U/L (4-34); AST 33 U/L (14-36); Albumin 3.7 g/dL (3.5-5.0); Alkaline Phosphatase 127 U/L (38-126); Calcium 8.9 mg/dL (8.4-10.2); Total Bilirubin 0.4 mg/dL (0.2-1.3); Total Protein 5.8 g/dL (6.3-8.2)
[2022-02-25 17:56] LABS: INR 0.9 (<1.2); Partial Thromboplastin Time 24.2 sec (22.0-30.0); Prothrombin Time 10.3 sec (9.0-12.0)
[2022-02-25 18:16] VITALS: BP 125/83; PULSE 79
--- NOTE | 2022-02-25 18:19 | US ---
EXAMINATION TYPE: US venous doppler duplex UE LT DATE OF EXAM: 02/25/2022 COMPARISON: CLINICAL HISTORY: swelling, discoloration. Left port. Purplish coloration. No redness. Patient sta diana swelling. On blood thinners. SIDE PERFORMED: Left Left Arm: Negative for DVT IMPRESSION: No evidence of deep vein thrombosis in the left arm.
[2022-02-25] MEDS ORDERED: HYDROmorphone 0.5 MG/0.5 ML SYRINGE IVP STA (18:27)
--- NOTE | 2022-02-25 19:35 | CT ---
EXAMINATION TYPE: CT chest angio for PE DATE OF EXAM: 02/25/2022 COMPARISON: 05/23/2019 HISTORY: Suspected DVT/PE. Left arm swelling. CT DLP: 354.9 mGycm Automated exposure control for dose reduction was used. CONTRAST: Performed with IV Contrast, patient injected with 100cc mL of Isovue 370. Images obtained from the thoracic inlet to the diaphragm with the IV contrast. There are Three-D post processed images. The lungs are clear of consolidation. No pleural effusion. Heart size is normal. No pericardial effus ion. There is no mediastinal adenopathy. There are no hilar masses. There is normal contrast opacification of the pulmonary arteries. No filling defect. The thoracic vertebra have normal alignment. No compression fracture. Sternum is intact. The ribs are intact. The upper abdominal soft tissues are intact. There are clips from cholecystectomy. IMPRESSION: Negative exam. No evidence of pulmonary embolism. No adverse change compared to the old exam.
== END 2022-02-25 20:02 | disposition home or self-care (01) ==
LOC: EC 16:38
DX: R22.32 Localized swelling, mass and lump, left upper limb (principal); K21.9 Gastro-esophageal reflux disease without esophagitis; E07.9 Disorder of thyroid, unspecified; Z79.899 Other long term (current) drug therapy
CPT/HCPCS: 36415; 80053; 85025; 85610; 85730; 93971; 71275; 99284; 96374; 96375; J1170 ×2; Q9967

== ENCOUNTER 2022-03-14 19:53 | Inpatient (IN) | payer BC ==
--- NOTE | 2022-03-14 22:35 | ED ---
General Adult HPI - General Chief complaint: Extremity Problem,Nontraumatic Stated complaint: poss clot Time Seen by Provider: 03/14/22 22:31 Source: patient Mode of arrival: ambulatory Limitations: no limitations - History of Present Illness Initial comments: Patient presents to the ED with her for evaluation. Patient states that she has had proximal left upper extremity pain since yesterday morning, and she is concerned that she may have developed a blood clot. Patient states that she has a left-sided port-a-cath in place, and she states that she had her current port was placed about a month ago. Patient states that her port is in place so she can receive antiemetic medications, as she has gastroparesis. Patient states that she has had DVTs in the past, and she states that she is on Arixtra anticoagulation therapy currently. Patient denies upper extremity trauma or injury, fever or chills, focal neuro deficit, chest pain, dyspnea, dizziness, nausea or vomiting, or any other symptoms or complaints. - Related Data Home Medications Medication Instructions Recorded Confirmed Montelukast Chew [Singulair chew] 10 mg PO DAILY 02/02/18 05/06/21 Prucalopride Succinate [Motegrity] 2 mg PO DAILY 01/14/19 05/06/21 oxyCODONE HCL [oxyCODONE HCL (IR)] 10 mg PO Q8H PRN 04/20/19 05/06/21 Linaclotide [Linzess] 290 mcg PO DAILY PRN 05/24/19 05/06/21 Tegaserod Hydrogen Maleate 6 mg PO AC-BID 05/24/19 05/06/21 [Zelnorm] Lansoprazole 30 mg PO BID 08/27/19 05/06/21 Levothyroxine Sodium [Synthroid] 100 mcg PO DAILY 10/04/19 05/06/21 SUMAtriptan succinate [Imitrex] 100 mg PO BID PRN 05/20/20 05/06/21 Topiramate [Trokendi Xr] 50 mg PO HS 10/07/20 05/06/21 Ondansetron Odt [Zofran Odt] 8 mg PO Q8HR PRN 05/03/21 05/06/21 Promethazine Vc-Codeine Sushma 5 ml PO Q6H PRN 05/03/21 05/06/21 Zipsor 25mg 25 mg PO TID 05/03/21 05/06/21 Previous Rx's Medication Instructions Recorded Aspirin 81 mg PO DAILY 30 Days chewable 10/16/19 Calcium Carbonate [Calcium] 600 mg PO DAILY #30 tablet 05/07/21 Clindamycin [Cleocin] 300 mg PO Q6H #40 capsule 07/26/21 cefUROXime axetiL [Ceftin] 500 mg PO BID 7 Days #14 tab 08/23/21 Sulfamethox-Tmp 800-160Mg [Bactrim 1 tab PEG/G-TUBE Q12HR 5 Days #10 01/10/22 DS 800-160 mg] tab Allergies Allergy/AdvReac Type Severity Reaction Status Date / Time midazolam [From Versed] Allergy Anaphylaxis Verified 03/14/22 20:33 metoclopramide [From Reglan] AdvReac Mild jittery Verified 03/14/22 20:33 prochlorperazine AdvReac Mild JITTERY Verified 03/14/22 20:33 [From Compazine] Review of Systems ROS Statement: Those systems with pertinent positive or pertinent negative responses have been documented in the HPI. ROS Other: All systems not noted in ROS Statement are negative. Past Medical History Past Medical History: Deep Vein Thrombosis (DVT), GERD/Reflux, Pulmonary Embolus (PE), Thyroid Disorder Additional Past Medical History / Comment(s): Idiopathic gastroparesis, takes little in orally-has J tube for feedings and gastric stimulator- chronic abdominal pain, R pulmonary embolism -2017, dvt R upper extremity 2018, pancrea titis once in 2018-thought stone somewhere, hypothyroid, chronic anemia, sinus problems, migraines History of Any Multi-Drug Resistant Organisms: VRE Date of last positivie culture/infection: 08/01/18 MDRO Source:: VRE URINE Past Surgical History: Section, Cholecystectomy, Hernia Repair, Ort hopedic Surgery, Tonsillectomy Additional Past Surgical History / Comment(s): Gastric pacer with removal in spring 2017, J tube, gastric stimulator, x3, 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 Mother Family Medical History: No Reported History Additional Family Medical History / Comment(s): Mother is 58yrs old. General Exam Limitations: no limitations General appearance: alert, in no apparent distress Head exam: Present: atraumatic, normocephalic Eye exam: Present: normal appearance, EOMI ENT exam: Present: mucous membranes moist Neck exam: Present: other (Trachea is in midline) Respiratory exam: Present: normal lung sounds bilaterally, other (Left chest Port-A-Cath without any redness or tenderness). Absent: respiratory distress, wheezes, rales, rhonchi, stridor Cardiovascular Exam: Present: regular rate, normal rhythm, normal heart sounds, other (Normal radial pulses bilaterally) GI/Abdominal exam: Present: soft. Absent: distended, tenderness, guarding Extremities exam: Present: full ROM, other (Mild left proximal arm tenderness). Absent: pedal edema, calf tenderness Neurological exam: Present: alert, oriented X3. Absent: motor sensory deficit Psychiatric exam: Present: normal affect, normal mood Skin exam: Present: warm, dry, intact, normal color Course Vital Signs 03/14/22 20:33 Temperature 98.6 F Pulse Rate 98 Respiratory 16 Rate Blood Pressure 131/88 O2 Sat by Pulse 98 Oximetry - Reevaluation(s) Reevaluation #1: 03/15/22 00:34 Patient and are aware of the patient's US report, and patient agrees with hospital admission at this time. Patient denies development of any new symptoms while in the ED. Patient remains alert and breathing comfortably with a normal room air oxygen saturation. 03/15/22 00:40 Case, H&P, left upper extremity venous duplex ultrasound report and ED management thus far were discussed with Dr. Cruz. He accepts hospital admission. He agrees with hematology consultation. He has no further recommendations at this time. Medical Decision Making - Medical Decision Making Patient has developed an acute left upper extremity DVT while on Arixtra anticoagulation therapy. Given that she is already on anticoagulation therapy, will place the patient on a heparin IV drip and admit her for further evaluation/management. Patient's labs are still pending at this time. Dr. Cruz has accepted hospital admission. Hematology has been placed on consult. - Radiology Data Left upper extremity venous duplex ultrasound: There is evidence of acute deep vein thrombosis in the left axillary and subclavian vein. Disposition Clinical Impression: Left upper extremity deep vein thrombosis Disposition: ADMITTED IP TO THIS HOSP Condition: Stable Is patient prescribed a controlled substance at d/c from ED?: No Referrals: Karthikeyan Pedro MD [Primary Care Provider] - 1-2 days Time of Disposition: 00:41
[2022-03-14] MEDS ORDERED: MORPHINE SULFATE 4 MG/ML SYRINGE IVP STA (22:51)
[2022-03-14] MEDS ORDERED: MORPHINE SULFATE 4 MG/ML SYRINGE IM STA (23:42)
--- NOTE | 2022-03-14 23:54 | US ---
EXAMINATION TYPE: US venous doppler duplex UE LT DATE OF EXAM: 03/14/2022 COMPARISON: US 02/25/2022 CLINICAL HISTORY: left arm pain, r/o DVT. Left arm pain for a few days. Patient has a port in place. Hx of DVT in right arm in 2019. Patient is on Arixtra. SIDE PERFORMED: Left arm Left Arm: There appear to be internal echoes within the left subclavian vein and axillary vein. [place] r defect seen within subclavian vein, and [id number] color flow seen within lateral subclavian vein and axillary vein. Compressions deferred within these segments. IMPRESSION: There is evidence of acute deep vein thrombosis in the left axillary and subclavian vein.
[2022-03-15] MEDS ORDERED: HEPARIN SODIUM 1,000 UN/ML (10ML VL) IV ONE (00:37)
[2022-03-15] MEDS ORDERED: HEPARIN SODIUM 1,000 UN/ML (10ML VL) IV PRN (00:37)
[2022-03-15] MEDS ORDERED: NALOXONE 0.4 MG/ML 1 ML VIAL IV PRN (00:41)
[2022-03-15 01:00] LABS: Basophils # (A) 0.1 k/uL (0-0.2); Basophils % (A) 1 %; Eosinophils # (A) 0.2 k/uL (0-0.7); Eosinophils % (A) 2 %; HGB 14.1 gm/dL (11.4-16.0); Lymphocytes # (A) 3.2 k/uL (1.0-4.8); Lymphocytes % (A) 40 %; MCH 29.4 pg (25.0-35.0); MCHC 35.3 g/dL (31.0-37.0); MCV 83.3 fL (80.0-100.0); Mean Platelet Volume 7.4; Monocytes # (A) 0.4 k/uL (0-1.0); Monocytes % (A) 5 %; Neutrophils # (A) 3.9 k/uL (1.3-7.7); Neutrophils % (A) 50 %; Platelet Count 376 k/uL (150-450); RBC 4.79 m/uL (3.80-5.40); RDW 13.1 % (11.5-15.5); WBC 7.9 k/uL (3.8-10.6)
[2022-03-15 01:19] LABS: INR 0.9 (<1.2); Prothrombin Time 9.9 sec (9.0-12.0)
[2022-03-15 01:21] LABS: ALT 15 U/L (4-34); AST 19 U/L (14-36); African American GFR (CKD) >90 (>60 ml/min/1.73 sqM); Albumin 4.3 g/dL (3.5-5.0); Alkaline Phosphatase 166 U/L (38-126); Anion Gap 9 mmol/L; Blood Urea Nitrogen 15 mg/dL (7-17); Calcium 9.5 mg/dL (8.4-10.2); Carbon Dioxide 24 mmol/L (22-30); Chloride 106 mmol/L (98-107); Creatine Kinase 62 U/L (30-135); Glucose 95 mg/dL (74-99); Non-African American GFR(CKD) 88 (>60 ml/min/1.73 sqM); Potassium 3.9 mmol/L (3.5-5.1); Sodium 139 mmol/L (137-145); Total Bilirubin 0.2 mg/dL (0.2-1.3); Total Protein 6.9 g/dL (6.3-8.2)
[2022-03-15] MEDS: HEPARIN SOD,PORK IN 0.45% NACL 25,000 UNIT in 0.45% NACL 1 250ML.BAG IV SCH ×2 (02:52→21:57)
--- NOTE | 2022-03-15 02:54 | P.HPIM ---
History of Present Illness H&P Date: 03/15/22 Chief Complaint: left arm pain and tightness 41 year old female with gastroparesis patient comes in due to couple days history of feeling tightness and discomfort in her left arm. no loss of function , no recent injuries. she has a mediport left chest for IVF and medications at home when needed due to frequent episodes of vomiting and oral intake intolerance due to severe gastroparesis patient denies any fever, chills, cough, URI symptoms , chest pain , skin changes over her left arm, injuries, denies any nausea vomiting, abd pain , changes in bowel or urinary habits. blood work in the ED unremarkable Venous doppler US showed acute DVT in the left subclavian and axillary vein patient is currently on blood thinners due to history of multiple episodes of DV T and PE she denies any tobacco smoking, illicit drugs or heavy alcohol consumption Review of Systems Pertinent positives as noted in HPI. All other systems were reviewed and are negative Past Medical History Past Medical History: Deep Vein Thrombosis (DVT), GERD/Reflux, Pulmonary Embolus (PE), Thyroid Disorder Additional Past Medical History / Comment(s): Idiopathic gastroparesis, takes little in orally-has J tube for feedings and gastric stimulator- chronic abdominal pain, R pulmonary embolism 5-2017, dvt R upper extremity 2018, pancreatitis once in 2018-thought stone somewhere, hypothyroid, chronic anemia, sinus problems, migraines History of Any Multi-Drug Resistant Organisms: VRE Date of last positivie culture/infection: 08/01/18 MDRO Source:: VRE URINE Past Surgical History: Section, Cholecystectomy, Hernia Repair, Orthopedic Surgery, Tonsillectomy Additional Past Surgical History / Comment(s): Gastric pacer with removal in spring 2017, J tube, gastric stimulator, x3, 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 Mother Family Medical History: No Reported History Additional Family Medical History / Comment(s): Mother is 58yrs old. Medications and Allergies Home Medications Medication Instructions Recorded Confirmed Type Montelukast Chew [Singulair chew] 10 mg PO DAILY 02/02/18 05/06/21 History Prucalopride Succinate [Motegrity] 2 mg PO DAILY 01/14/19 05/06/21 History oxyCODONE HCL [oxyCODONE HCL (IR)] 10 mg PO Q8H PRN 04/20/19 05/06/21 History Linaclotide [Linzess] 290 mcg PO DAILY PRN 05/24/19 05/06/21 History Tegaserod Hydrogen Maleate 6 mg PO AC-BID 05/24/19 05/06/21 History [Zelnorm] Lansoprazole 30 mg PO BID 08/27/19 05/06/21 History Levothyroxine Sodium [Synthroid] 100 mcg PO DAILY 10/04/19 05/06/21 History Aspirin 81 mg PO DAILY 30 Days chewable 10/16/19 05/06/21 Rx SUMAtriptan succinate [Imitrex] 100 mg PO BID PRN 05/20/20 05/06/21 History Topiramate [Trokendi Xr] 50 mg PO HS 10/07/20 05/06/21 History Ondansetron Odt [Zofran Odt] 8 mg PO Q8HR PRN 05/03/21 05/06/21 History Promethazine Vc-Codeine Sushma 5 ml PO Q6H PRN 05/03/21 05/06/21 History Zipsor 25mg 25 mg PO TID 05/03/21 05/06/21 History Calcium Carbonate [Calcium] 600 mg PO DAILY #30 tablet 05/07/21 Rx Clindamycin [Cleocin] 300 mg PO Q6H #40 capsule 07/26/21 Rx cefUROXime axetiL [Ceftin] 500 mg PO BID 7 Days #14 tab 08/23/21 Rx Sulfamethox-Tmp 800-160Mg [Bactrim 1 tab PEG/G-TUBE Q12HR 5 Days #10 01/10/22 Rx DS 800-160 mg] tab Allergies Allergy/AdvReac Type Severity Reaction Status Date / Time midazolam [From Versed] Allergy Anaphylaxis Verified 03/14/22 20:33 metoclopramide [From Reglan] AdvReac Mild jittery Verified 03/14/22 20:33 prochlorperazine AdvReac Mild JITTERY Verified 03/14/22 20:33 [From Compazine] Physical Exam Vitals: Vital Signs Temp Pulse Resp BP Pulse Ox 03/14/22 20:33 98.6 F 98 16 131/88 98 Intake and Output 03/14/22 03/14/22 03/15/22 14:59 22:59 06:59 Other: Weight 72.575 kg Constitutional: No acute distress, conversant, pleasant Eyes: Anicteric sclerae, moist conjunctiva, Pupils equal round reactive to light ENMT: NC/AT Oropharynx clear, no erythema, or exudates Neck: Supple, no masses, or JVD No carotid bruits No thyromegaly Lungs: Clear to auscultation Clear to percussion Normal respiratory effort, no accessory muscle use Cardiovascular: Heart regular in rate and rhythm, No murmurs, gallops, or rubs No peripheral edema Abdominal: Soft Nontender, no guarding, rebound or rigidity Abdomen moving with respiration Normoactive bowel sounds No hepatomegaly, No splenomegaly No palpable mass No abdominal wall hernia noted Skin: Normal temperature, tone, texture, turgor No induration No subcutaneous nodules No rash, lesions No ulcers Extremities: No digital cyanosis No clubbing Pedal pulses intact and symmetrical Radial pulses intact and symmetrical No calf tenderness Psychiatric: Alert and oriented to person, place and time Appropriate affect fair judgement Neuro Muscles Strength 5/5 in all 4 extremities Sensation to light touch grossly present throughout Cranial nerves II-XII grossly intact Lymphatics: no palpable cervical or supraclavicular lymph nodes Results CBC & Chem 7: 03/15/22 00:44 03/15/22 00:44 Labs: Abnormal Lab Results - Last 24 Hours (Table) 03/15/22 Range/Units 00:44 Alkaline Phosphatase 166 H (38-126) U/L Assessment and Plan Assessment: acute DVT left axillary and subclavian vein patient is on noval oral anticoagulation switch to heparin drip consult to hematology symptomatic control of pain with opiates chronic conditions gastroparesis , zofran, reglan PRN IVF hydration with normal saline continue with PPI hypothyroid , levothyroxin full code DVT PPX on heparin gtt for acute DVT
[2022-03-15] MEDS ORDERED: ONDANSETRON 4 MG/2 ML VIAL IVP PRN (02:56)
[2022-03-15] MEDS: HYDROmorphone 0.5 MG/0.5 ML SYRINGE IVP PRN ×4 (03:15→22:46)
[2022-03-15] MEDS: SODIUM CHLORIDE 0.9% 1,000 ML IV SCH ×3 (04:15→21:31)
[2022-03-15] MEDS: LEVOTHYROXINE 100 MCG TAB PO SCH (08:57)
[2022-03-15] MEDS: MONTELUKAST 10 MG TAB PO SCH (08:58)
[2022-03-15] MEDS: ASPIRIN 81 MG PO SCH (08:58)
[2022-03-15] MEDS: PANTOPRAZOLE 40 MG TABLET PO SCH ×2 (08:58→21:30)
--- NOTE | 2022-03-15 12:12 | US ---
EXAMINATION TYPE: US venous doppler duplex UE RT DATE OF EXAM: 03/15/2022 COMPARISON: US, left arm scanned less than 24 hours ago CLINICAL HISTORY: New Baseline, HX mult DVT 2/2 invasive lines. h/o DVT right arm, new baseline per o rder SIDE PERFORMED: Right Right Arm: Negative for DVT IMPRESSION: Grayscale, color doppler, spectral doppler imaging performed of the deep veins of the upper extremiti es. There is normal flow, compressibility and vascular waveforms.
--- NOTE | 2022-03-15 12:25 | CT ---
EXAMINATION TYPE: CT angio chest DATE OF EXAM: 03/15/2022 COMPARISON: none HISTORY: pain in port-a-cath, r/o blood clot CT DLP: 266.1 mGycm CONTRAST: CTA thoracic aorta with 3-D reconstruction is performed and with IV Contrast, patient injected with 1 00 mL of Isovue 370. Contrast CTA of the thoracic aorta was performed from the lung apex through the upper abdomen. 3D re construction imaging obtained at a separate workstation. CT Chest: THORACIC AORTA: No evidence for thoracic aortic aneurysm. Mild atheromatous changes seen. There is n o evidence for dissection or periaortic collection. LUNGS: The lungs are clear and free of infiltrate or atelectasis. No pulmonary nodule or mass is det ected. No pleural effusion or CT evidence of interstitial lung disease. MEDIASTINUM: No evidence for mediastinal hematoma. The heart is not enlarged. No evidence for med iastinal mass or adenopathy. HILAR STRUCTURES: No evidence for mass. No hilar adenopathy is appreciated. OTHER: There is filling defect within the left subclavian left axillary veins compatible with DVT. Mu ltiple venous collaterals seen within the left axilla. Port-A-Cath is noted be in place. IMPRESSION- There is filling defect within the left subclavian left axillary veins compatible with DVT. Multiple venous collaterals seen within the left axilla. Port-A-Cath is noted be in place.
--- NOTE | 2022-03-15 18:40 | P.PN ---
Subjective Progress Note Date: 03/15/22 Hospital course: Patient is a very pleasant 41-year-old female with a past medical history of idiopathic gastroparesis with gastric stimulator and J-tube, hypothyroidism, DVTs and PE on anticoagulation with Arixtra. She presented to the emergency department on 03/14/22 with a chief complaint of left upper extremity pain and concerns that she may have developed another blood clot. Patient reports she had a left sided Port-A-Cath placed approximately one month ago and stated that she has been taking her anticoagulation as prescribed without missing any doses. Upon arrival in the emergency department patient underwent full evaluation. CBC, coags, and CMP were unremarkable with the exception of slightly elevated alkaline phosphatase of 166. Venous Doppler of left upper extremity was completed revealing evidence of an acute DVT in the left axillary and subclavian vein. Patient was started on heparin infusion and admitted under our services with consultation to hematology and vascular surgery. Physical exam: Patient seen and fully evaluated at bedside this morning. She reports currently mild pain to left upper extremity and tingling in left hand but denies having any numbness. Patient denies having any other complaints including headache, lightheadedness, dizziness, chest pain, palpitations, or shortness of breath. Vital signs reviewed and stable. General: Nontoxic, no distress and appears stated age. Derm: Skin warm and dry, normal coloration for ethnicity. Head: Atraumatic, normocephalic and symmetric. Eyes: EOMs intact, no lid lag, and anicteric sclera Mouth: no lip lesions, mucus membranes moist Cardiovascular: regular rate and rhythm with normal S1S2, no murmur, positive posterior tibial pulses bilaterally, and cap refill < 2 seconds. Lungs: Respirations even, regular, and unlabored on room air. Lungs CTA bilaterally, no rhonchi, no rales, no wheezing, and no accessory muscle usage. Abdominal: soft, nontender to palpation, no guarding, no appreciable organomegaly Ext: ROM intact. No gross muscle atrophy, no edema, no contractures Neuro: Speech clear, face symmetrical and CN II-XII grossly intact with no noted focal neuro deficits Psych: Alert and oriented to person, place, time, and situation. Appropriate and pleasant affect. Assessment and Plan of Care: Acute DVT of left axillary and subclavian vein History of DVTs and PE -Continue heparin infusion pending evaluation and further recommendations from hematology. -Hematology consulted -Vascular surgery consulted for possible filter placement Chronic idiopathic gastroparesis -Continue home medication regimen with oxycodone, Protonix, and Zofran as needed. Hypothyroidism -Continue daily medication regimen with levothyroxine. CODE STATUS: Full code DVT prophylaxis: Heparin Discussed with: Patient, patient's , and RN Anticipated discharge date: Clinical course to determine Anticipated discharge place: Home A total of 32 minutes was spent on the care of this complex patient more than 50% of the time was spent in counseling and care coordination. Objective - Vital Signs Vital signs: Vital Signs Temp 98.6 F 03/14/22 20:33 Pulse 87 03/15/22 09:05 Resp 18 03/15/22 09:05 BP 120/82 03/15/22 09:05 Pulse Ox 97 03/15/22 09:05 FiO2 Intake & Output 03/14/22 03/15/22 03/15/22 18:59 06:59 18:59 Intake Total 88.835 Balance 88.835 Weight 72.575 kg Intake: Intake, IV Titration 88.835 Amount Heparin Sod,Pork in 0.45% 88.835 NaCl 25,000 unit In 0.45 % NaCl 1 250ml.bag @ 18 UNITS/KG/HR 13.064 mls/hr IV .[id number] [facility] Rx#: [id number] - Labs CBC & Chem 7: 03/15/22 00:44 03/15/22 00:44 Labs: Abnormal Lab Results - Last 24 Hours (Table) 03/15/22 03/15/22 03/15/22 Range/Units 00:44 07:56 15:44 APTT 75.0 H 95.4 H (22.0-30.0) sec Alkaline Phosphatase 166 H (38-126) U/L
--- NOTE | 2022-03-15 19:48 | P.CONS ---
History of Present Illness - Reason for Consult Consult date: 03/15/22 Left upper extremity DVT, on full dose anticoagulation Requesting physician: Steven Pelletier - Chief Complaint LUE pain - History of Present Illness Mrs. Johansen is a very pleasant 41-year-old female patient well known to Dr. Chung. She has a history of chronic idiopathic gastroparesis, requiring TPN. She saw Dr. Chung in the outpatient setting, last in 02/2021. She known to have chronic iron deficiency anemia attributed to gastric bypass. She is known to have Gastroparesis, pancreatitis, SMA syndrome, has gastric simulator placed, where site became infected and required IV antibiotics (Vancomycin). PE was diagnosed in [place] 05/22 post PICC line placement-3 months anticoagulation per Pulmonary. 08/20/2017 she was admitted to [facility], found to have SVT in the right basilic vein where she had a PICC line placed for gastric stimulator infection, on home IV antibiotics. Recommended anticoagulation for at least a year. Admitted to [facility] 05/10/18. She was anticoagulated at the time on eliquis, diagnosed with PICC line related left upper extremity SVT, recommendation was to continue on anticoagulation. She was changed to lovenox at some point. She was again admitted here 03/22 with line associated clot in the arm. Lovenox dose was increased. She had a RUE DVT in 2019 associated with PICC line and then she was started on arixtra. She cont with PICC and states she just had port placed soon about 1 mo ago. Not aware of any DVT in the interim-she [facility] after 2020, she has had multiple dopplers. She was seen 02/25/22 in ER, CTA was neg for PE, LUE was neg for DVT. She states she was having some swelling in the LUE. After the swelling was noted she missed 1 dose of arixtra. She is seen in ER, doppler + LUE DVT. Lt side is where port was placed. No other symptoms r/t DVT, on heparin drip, denies any bleeding. Review of Systems 10 point review of systems is negative except as stated in HPI Past Medical History Past Medical History: Deep Vein Thrombosis (DVT), GERD/Reflux, Pulmonary Embolus (PE), Thyroid Disorder Additional Past Medical History / Comment(s): Idiopathic gastroparesis, takes little in orally-has J tube for feedings and gastric stimulator- chronic abdominal pain, R pulmonary embolism 5-2017, dvt R upper extremity 2018, pancreatitis once in 2018-thought stone somewhere, hypothyroid, chronic anemia, sinus problems, migraines History of Any Multi-Drug Resistant Organisms: VRE Year Discovered:: 08/01/18 MDRO Source:: VRE URINE Past Surgical History: Section, Cholecystectomy, Hernia Repair, Orthopedic Surgery, Tonsillectomy Additional Past Surgical History / Comment(s): Gastric pacer with removal in spring 2017, J tube, gastric stimulator, x3, 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 Mother Family Medical History: No Reported History Additional Family Medical History / Comment(s): Mother is 58yrs old. Medications and Allergies Home Medications Medication Instructions Recorded Confirmed Type Montelukast Chew [Singulair chew] 10 mg PO DAILY 02/02/18 03/15/22 History oxyCODONE HCL [oxyCODONE HCL (IR)] 10 mg PO Q8H PRN 04/20/19 03/15/22 History Lansoprazole 30 mg PO BID 08/27/19 03/15/22 History Levothyroxine Sodium [Synthroid] 100 mcg PO DAILY 10/04/19 03/15/22 History Aspirin 81 mg PO DAILY 30 Days chewable 10/16/19 03/15/22 Rx SUMAtriptan succinate [Imitrex] 100 mg PO BID PRN 05/20/20 03/15/22 History Topiramate [Trokendi Xr] 50 mg PO HS 10/07/20 03/15/22 History Ondansetron Odt [Zofran Odt] 8 mg PO Q8HR PRN 05/03/21 03/15/22 History Cetirizine HCl 10 mg PO DAILY 03/15/22 03/15/22 History FLUoxetine HCL 20 mg PO DAILY 03/15/22 03/15/22 History Fondaparinux [Arixtra] 7.5 mg IM DAILY 03/15/22 03/15/22 History Hyoscyamine Sulfate [Levsin] 0.125 mg SL QID 03/15/22 03/15/22 History Promethazine HCl [Phenergan] 50 mg PO Q8H PRN 03/15/22 03/15/22 History Sulfamethox-Tmp 800-160Mg [Bactrim 1 tab PO Q12HR 03/15/22 03/15/22 History DS 800-160 mg] Tenapanor HCl [Ibsrela] 50 mg PO BID 03/15/22 03/15/22 History Allergies Allergy/AdvReac Type Severity Reaction Status Date / Time midazolam [From Versed] Allergy Anaphylaxis Verified 03/14/22 20:33 metoclopramide [From Reglan] AdvReac Mild jittery Verified 03/14/22 20:33 prochlorperazine AdvReac Mild JITTERY Verified 03/14/22 20:33 [From Compazine] Physical Exam Vitals: Vital Signs Temp Pulse Resp BP Pulse Ox 03/15/22 09:05 87 18 120/82 97 03/15/22 06:39 71 15 129/74 98 03/14/22 20:33 98.6 F 98 16 131/88 98 Intake and Output 03/14/22 03/15/22 03/15/22 22:59 06:59 14:59 Intake Total 88.835 Balance 88.835 Intake: Intake, IV Titration 88.835 Amount Heparin Sod,Pork in 0.45% 88.835 NaCl 25,000 unit In 0.45 % NaCl 1 250ml.bag @ 18 UNITS/KG/HR 13.064 mls/hr IV .[id number] [facility] Rx#: [id number] Other: Weight 72.575 kg - Constitutional General appearance: average body habitus, cooperative, no acute distress - EENT Eyes: anicteric sclerae, EOMI ENT: hearing grossly normal - Neck Neck: no lymphadenopathy - Respiratory Respiratory: bilateral: CTA - Cardiovascular Rhythm: regular Heart sounds: normal: S1, S2 Abnormal Heart Sounds: no systolic murmur, no diastolic murmur, no rub, no S3 Gallop, no S4 Gallop, no click, no other - Gastrointestinal General gastrointestinal: no absent bowel sounds, no decreased bowel sounds, no distended, no hepatomegaly, no hyperactive bowel sounds, normal bowel sounds, no organomegaly, no rigid, no scaphoid, soft, no splenomegaly, no tenderness, no umbilical hernia, no ventral hernia - Integumentary Integumentary: normal - Neurologic Neurologic: CNII-XII intact - Musculoskeletal Musculoskeletal: strength equal bilaterally - Psychiatric Psychiatric: A&O x's 3, appropriate affect, intact judgment & insight Results CBC & Chem 7: 03/15/22 00:44 03/15/22 00:44 Labs: Abnormal Lab Results - Last 24 Hours (Table) 03/15/22 03/15/22 Range/Units 00:44 07:56 APTT 75.0 H (22.0-30.0) sec Alkaline Phosphatase 166 H (38-126) U/L CT scan - chest: report reviewed (02/25/22) Venous US: report reviewed (doppler from 02/25/22/reviewed) Assessment and Plan (1) Deep vein thrombosis (DVT) of left upper extremity Current Visit: Yes Status: Acute Priority: High Code(s): I82.622 - ACUTE EMBOLISM AND THROMBOSIS OF DEEP VEINS OF L UP EXTREM SNOMED Code(s): 951259114 Plan: Patient has had failure of mult lines of anticoagulation, all Xa factor inhibitors. All of her clots are upper extremity and have been associated with invasive line placement. No known underlying clotting disorder has been identified in her extensive workup from the past. Unfortunately, patient is going to require line placement due to her multiple health conditions, chronic TPN. Thus far the only anticoagulants available to the patient that have not been tried yet are Pradaxa and Coumadin. Patient's history of gastroparesis Coumadin is likely going to be very difficult to regulate. Pradaxa has been prescribed. Communication order sent to case management verify co-pay. Communication order sent to nursing to discontinue heparin drip when first dose of Pradaxa given. Reassess right upper extremity, history of DVT, rule out any acute component. CTA of the chest ordered. Patient's is reporting that she was short of breath and tachycardic with ambulating which is not her baseline. Did review Dopplers and CTA's over the last year. Office medical record reviewed included documents from [facility]. Doctor attests: I performed a history and physical examination of this patient, developed impression and plan of care. Discussed with dictator. I agree with dictators note, documented as a scribe.
[2022-03-15 20:12] VITALS: RESP 16
[2022-03-15] MEDS: TOPIRAMATE 25 MG TAB PO SCH (21:30)
[2022-03-15] MEDS: DABIGATRAN 150 MG CAP PO SCH (21:30)
[2022-03-16] MEDS: HYDROmorphone 0.5 MG/0.5 ML SYRINGE IVP PRN (05:07)
[2022-03-16] MEDS: LEVOTHYROXINE 100 MCG TAB PO SCH (05:23)
[2022-03-16 08:53] VITALS: BP 109/67; PULSE 78; TEMP 98
[2022-03-16 09:00] LABS: Basophils # (A) 0.08 X 10*3/uL (0.00-0.10); Basophils % (A) 1.6 %; Eosinophils # (A) 0.18 X 10*3/uL (0.04-0.35); Eosinophils % (A) 3.5 %; HCT 39.8 % (37.2-46.3); HGB 12.5 g/dL (12.0-15.0); Immature Grans, Automated 0.2 %; Lymphocytes # (A) 2.51 X 10*3/uL (0.90-5.00); Lymphocytes % (A) 48.9 %; MCH 27.5 pg (27.0-32.0); MCHC 31.4 g/dL (32.0-37.0); MCV 87.5 fL (80.0-97.0); Mean Platelet Volume 9.1 fL (9.5-12.2); Monocytes # (A) 0.43 X 10*3/uL (0.20-1.00); Monocytes % (A) 8.4 %; NRBC Per 100 WBC 0 /100 WBCS (0.0-0.0); Neutrophils # (A) 1.92 X 10*3/uL (1.80-7.70); Neutrophils % (A) 37.4 %; Platelet Count 336 X 10*3/uL (140-440); RBC 4.55 X 10*6/uL (4.10-5.20); RDW 13.3 % (11.5-14.5); WBC 5.13 X 10*3/uL (4.50-10.00)
[2022-03-16] MEDS ORDERED: FLUoxetine HCL 20 MG CAP PO SCH (09:00)
[2022-03-16] MEDS ORDERED: LORATADINE 10 MG TAB PO SCH (09:00)
[2022-03-16 09:26] LABS: African American GFR (CKD) 107.6 (60.0-200.0); Albumin 3.9 g/dL (3.8-4.9); Albumin/Globulin Ratio 2.29 (1.60-3.17); Anion Gap 11.2 mmol/L (10.00-18.00); BUN/Creat Ratio 12.38 Ratio (12.00-20.00); Blood Urea Nitrogen 9.9 mg/dL (9.0-27.0); Calcium 9.3 mg/dL (8.7-10.3); Carbon Dioxide 21.8 mmol/L (20.0-27.5); Globulin 1.7 g/dL (1.6-3.3); Non-African American GFR(CKD) 92.9 (60.0-200.0); Potassium 4.4 mmol/L (3.5-5.5); Total Bilirubin 0.2 mg/dL (0.30-1.20); Total Protein 5.6 g/dL (6.2-8.2)
[2022-03-16] MEDS: PANTOPRAZOLE 40 MG TABLET PO SCH (09:53)
[2022-03-16] MEDS: TOPIRAMATE 25 MG TAB PO SCH (09:53)
[2022-03-16] MEDS: DABIGATRAN 150 MG CAP PO SCH (09:53)
[2022-03-16] MEDS: ASPIRIN 81 MG PO SCH (09:53)
[2022-03-16] MEDS: MONTELUKAST 10 MG TAB PO SCH (09:53)
--- NOTE | 2022-03-16 13:10 | P.GSCN ---
History of Present Illness Consult date: 03/16/22 Reason for Consult: Left upper extremity DVT on anticoagulation Requesting physician: Stevie Olivera History of present illness: 41-year-old female with history of multiple upper extremity DVTs related to PICC line placement. Patient has a history of gastroparesis requiring TPN, pancreatitis, SMA syndrome with gastric stimulator that had become infected and had also required IV antibiotics. She's had multiple PICC lines placed and removed 2 to DVTs. Most recently she has a port in the left chest wall that was placed about a month and a half ago. She started noticing left upper extremity swelling and discomfort over the last few days duration. She came into the emergency department for further evaluation and was noted to have, acute deep vein thrombosis in the left axillary and subclavian vein her venous duplex. Right upper extremity was negative for DVT as well as CT angiogram of the chest Being negative for pulmonary embolism. Patient has been on Xarelto, eliquis, and most recently on Arixtra for anticoagulation. She states she has been compliant with her medication. Patient was seen by hematology and they are going to recommend starting Predaxa if insurance covers it. Patient currently denies any shortness of breath or chest pain. She has full range of motion of her left upper extremity. She denies any significant pain at this time. Review of Systems A 14 point review systems was completed all pertinent positives and negatives as stated in the HPI. Past Medical History Past Medical History: Deep Vein Thrombosis (DVT), GERD/Reflux, Pulmonary Embolus (PE), Thyroid Disorder Additional Past Medical History / Comment(s): Idiopathic gastroparesis, takes little in orally-has J tube for feedings and gastric stimulator- chronic abdominal pain, R pulmonary embolism -2017, dvt R upper extremity 2018, pancreatitis once in 2018-thought stone somewhere, hypothyroid, chronic anemia, sinus problems, migraines History of Any Multi-Drug Resistant Organisms: VRE Year Discovered:: 08/01/18 MDRO Source:: VRE URINE Past Surgical History: Section, Cholecystectomy, Hernia Repair, Orthopedic Surgery, Tonsillectomy Additional Past Surgical History / Comment(s): Gastric pacer with removal in spring 2017, J tube, gastric stimulator, x3, 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, EGDs/ERCP, Pyloric surgery, colonoscopy, incisional hernia repair, piccs, mediport insertion , left carpal tunnel, right wrist cyst removal Past Anesthesia/Blood Transfusion Reactions: Motion Sickness, Postoperative Nausea & Vomiting (PONV) Past Psychological History: Depression Additional Psychological History / Comment(s): Pt resides with her spouse and 3 children. She has a J-tube for feedings which she has been taught how to care for. 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 She is independent. Smoking Status: Never smoker Past Alcohol Use History: Occasional Additional Past Alcohol Use History / Comment(s): PT DENIES SMOKING OR ANY ILLEGAL DRUG USE, HAS AN OCC DRINK. Past Drug Use History: None Reported - Past Family History Father Family Medical History: Hypertension Additional Family Medical History / Comment(s): Father is 58 yrs old.. Mother Family Medical History: No Reported History Additional Family Medical History / Comment(s): Mother is 58yrs old. Medications and Allergies Home Medications Medication Instructions Recorded Confirmed Type Montelukast Chew [Singulair chew] 10 mg PO DAILY 02/02/18 03/15/22 History oxyCODONE HCL [oxyCODONE HCL (IR)] 10 mg PO Q8H PRN 04/20/19 03/15/22 History Lansoprazole 30 mg PO BID 08/27/19 03/15/22 History Levothyroxine Sodium [Synthroid] 100 mcg PO DAILY 10/04/19 03/15/22 History Aspirin 81 mg PO DAILY 30 Days chewable 10/16/19 03/15/22 Rx SUMAtriptan succinate [Imitrex] 100 mg PO BID PRN 05/20/20 03/15/22 History Topiramate [Trokendi Xr] 50 mg PO HS 10/07/20 03/15/22 History Ondansetron Odt [Zofran Odt] 8 mg PO Q8HR PRN 05/03/21 03/15/22 History Cetirizine HCl 10 mg PO DAILY 03/15/22 03/15/22 History FLUoxetine HCL 20 mg PO DAILY 03/15/22 03/15/22 History Fondaparinux [Arixtra] 7.5 mg IM DAILY 03/15/22 03/15/22 History Hyoscyamine Sulfate [Levsin] 0.125 mg SL QID 03/15/22 03/15/22 History Promethazine HCl [Phenergan] 50 mg PO Q8H PRN 03/15/22 03/15/22 History Sulfamethox-Tmp 800-160Mg [Bactrim 1 tab PO Q12HR 03/15/22 03/15/22 History DS 800-160 mg] Tenapanor HCl [Ibsrela] 50 mg PO BID 03/15/22 03/15/22 History Dabigatran [Pradaxa] 150 mg PO BID 60 Days #120 cap 03/16/22 Rx Allergies Allergy/AdvReac Type Severity Reaction Status Date / Time midazolam [From Versed] Allergy Anaphylaxis Verified 03/14/22 20:33 metoclopramide [From Reglan] AdvReac Mild jittery Verified 03/14/22 20:33 prochlorperazine AdvReac Mild JITTERY Verified 03/14/22 20:33 [From Compazine] Surgical - Exam Vital Signs Temp Pulse Resp BP Pulse Ox 98.6 F 98 16 131/88 98 03/14/22 20:33 03/14/22 20:33 03/14/22 20:33 03/14/22 20:33 03/14/22 20:33 General appearance: The patient is alert, oriented, appears in no acute distress. HET: Head is normocephalic and atraumatic. Pupils are equal and reactive. Neck: Supple without lymphadenopathy. Trachea midline. Heart: Regular. Lungs: Equal expansion, normal respiratory effort. Abdomen: Soft, nontender, nondistended. Extremities: Normal skin color and turgor. Palpable bilateral +2 radial pulses, left upper extremity full range of motion, no redness, minimal swelling. Neurological: No focal deficits. Strength and sensation are grossly intact. Results - Labs 03/16/22 05:27 03/16/22 05:27 Abnormal Lab Results - Last 24 Hours (Table) 03/15/22 03/16/22 03/16/22 Range/Units 15:44 05:27 05:27 MCHC 31.4 L (32.0-37.0) g/dL MPV 9.1 L (9.5-12.2) fL APTT 95.4 H (22.0-30.0) sec Total Bilirubin 0.20 L (0.30-1.20) mg/dL Alkaline Phosphatase 127 H (41-126) U/L Total Protein 5.6 L (6.2-8.2) g/dL Diabetes panel 03/16/22 Range/Units 05:27 Sodium 140 (135-145) mmol/L Potassium 4.4 (3.5-5.5) mmol/L Chloride 107 (96-109) mmol/L Carbon Dioxide 21.8 (20.0-27.5) mmol/L BUN 9.9 (9.0-27.0) mg/dL Creatinine 0.8 (0.6-1.5) mg/dL Glucose 87 (70-110) mg/dL Calcium 9.3 (8.7-10.3) mg/dL AST 28 (13-35) U/L ALT 36 (8-44) U/L Alkaline Phosphatase 127 H (41-126) U/L Total Protein 5.6 L (6.2-8.2) g/dL Albumin 3.9 (3.8-4.9) g/dL Calcium panel 03/16/22 Range/Units 05:27 Calcium 9.3 (8.7-10.3) mg/dL Albumin 3.9 (3.8-4.9) g/dL Pituitary panel 03/16/22 Range/Units 05:27 Sodium 140 (135-145) mmol/L Potassium 4.4 (3.5-5.5) mmol/L Chloride 107 (96-109) mmol/L Carbon Dioxide 21.8 (20.0-27.5) mmol/L BUN 9.9 (9.0-27.0) mg/dL Creatinine 0.8 (0.6-1.5) mg/dL Glucose 87 (70-110) mg/dL Calcium 9.3 (8.7-10.3) mg/dL Adrenal panel 03/16/22 Range/Units 05:27 Sodium 140 (135-145) mmol/L Potassium 4.4 (3.5-5.5) mmol/L Chloride 107 (96-109) mmol/L Carbon Dioxide 21.8 (20.0-27.5) mmol/L BUN 9.9 (9.0-27.0) mg/dL Creatinine 0.8 (0.6-1.5) mg/dL Glucose 87 (70-110) mg/dL Calcium 9.3 (8.7-10.3) mg/dL Total Bilirubin 0.20 L (0.30-1.20) mg/dL AST 28 (13-35) U/L ALT 36 (8-44) U/L Alkaline Phosphatase 127 H (41-126) U/L Total Protein 5.6 L (6.2-8.2) g/dL Albumin 3.9 (3.8-4.9) g/dL Assessment and Plan Assessment: 1. Left upper extremity DVT left axillary subclavian vein 2. History of previous upper extremity DVTs related to PICC line on anticoagulation 3. Recent port placed left upper chest wall Plan: 1. Continue with recommendations on anticoagulation from hematology 2. No indication at this time for any filter placement 3. Elevate left upper extremity as needed for swelling and discomfort Thank you for this consultation, we will sign off at this time. The impression and plan of care has been dictated as directed. I performed a history and examination of this patient, discussed the same with the dictator. I agree with the dictator's note ,documented as a scribe. Any additional findings or plans will be noted.
--- NOTE | 2022-03-16 13:51 | P.DS ---
Providers Date of admission: 03/15/22 13:23 Expected date of discharge: 03/16/22 Attending physician: Mario Cruz MD Consults: 03/15/22 00:41 Consult Physician Urgent Consulting Provider: Toan Narvaez Consult Reason/Comments: Acute left upper extremity DVT while on Arixtra anticoagulation Do you want consulting provider notified?: Yes 03/15/22 14:00 Consult Physician Routine Consulting Provider: Maximino Luna Consult Reason/Comments: possible filter, acute DVT while on anticoagulant Do you want consulting provider notified?: Yes Primary care physician: [facility] Course: Discharge Diagnosis: Acute DVT of left axillary and subclavian vein, Arixtra has been discontinued and pt was placed on Pradaxa after evaluation and recommendations by theater company producer. Patient to follow up outpatient with PCP and hematology as recommended History of DVTs and PE. Continue anticoagulation with Pradaxa. Discussed with pharmacy after prescription was sent, insurance co-pay is $10 per month. Chronic idiopathic gastroparesis. Continue current home medication regimen with oxycodone, Phenergan and Zofran as needed and continue to follow up outpatient with patient safety manager for management. Hypothyroidism. Continue daily medication regimen with levothyroxine. Hospital Course: Patient is a very pleasant 41-year-old female with a past medical history of idiopathic gastroparesis with gastric stimulator and J-tube, hypothyroidism, DVTs and PE on anticoagulation with Arixtra. She presented to the emergency department on 03/14/22 with a chief complaint of left upper extremity pain and concerns that she may have developed another blood clot. Patient reports she had a left sided Port-A-Cath placed approximately one month ago and stated that she has been taking her anticoagulation as prescribed without missing any doses. Upon arrival in the emergency department patient underwent full evaluation. CBC, coags, and CMP were unremarkable with the exception of slightly elevated alkaline phosphatase of 166. Venous Doppler of left upper extremity was completed revealing evidence of an acute DVT in the left axillary and subclavian vein. Patient was started on heparin infusion and admitted under our services with consultation to hematology and vascular surgery. Venous Doppler right upper extremity negative for DVT. CTA chest negative for PE, confirming filling defect within the left subclavian left axillary veins compatible with DVT with multiple venous collaterals seen within the left axilla, also confirmed Port-A-Cath to be in place. Patient was evaluated by hematology and has been started on anticoagulant, Pradaxa. Arixtra has been discontinued and pt to be placed on Pradaxa and to follow up with hematology on discharge. Physical exam: Patient seen and fully evaluated at bedside this morning. She reports currently mild pain to left upper extremity is controlled and tingling previously experienced in left hand has totally resolved. Patient denies having any other complaints including headache, lightheadedness, dizziness, chest pain, palpitations, or shortness of breath. Vital signs reviewed and stable. General: Nontoxic, no distress and appears stated age. Derm: Skin warm and dry, normal coloration for ethnicity. Head: Atraumatic, normocephalic and symmetric. Eyes: EOMs intact, no lid lag, and anicteric sclera Mouth: no lip lesions, mucus membranes moist Cardiovascular: regular rate and rhythm with normal S1S2, no murmur, positive posterior tibial pulses bilaterally, and cap refill < 2 seconds. Lungs: Respirations even, regular, and unlabored on room air. Lungs CTA bilaterally, no rhonchi, no rales, no wheezing, and no accessory muscle usage. Abdominal: soft, nontender to palpation, no guarding, no appreciable organomegaly Ext: ROM intact. No gross muscle atrophy, no edema, no contractures Neuro: Speech clear, face symmetrical and CN II-XII grossly intact with no noted focal neuro deficits Psych: Alert and oriented to person, place, time, and situation. Appropriate and pleasant affect. A total of 33 minutes of time were spent preparing this complex discharge summary. Pt was discharged on 03/16/22 at 1:32 PM. Patient Condition at Discharge: Stable Plan - Discharge Summary New Discharge Prescriptions: New Dabigatran [Pradaxa] 150 mg PO BID 60 Days #120 cap Continue Montelukast Chew [Singulair chew] 10 mg PO DAILY oxyCODONE HCL [oxyCODONE HCL (IR)] 10 mg PO Q8H PRN PRN Reason: Pain Lansoprazole 30 mg PO BID Levothyroxine Sodium [Synthroid] 100 mcg PO DAILY Aspirin 81 mg PO DAILY 30 Days chewable SUMAtriptan succinate [Imitrex] 100 mg PO BID PRN PRN Reason: Migraine Headache Ondansetron Odt [Zofran ODT] 8 mg PO Q8HR PRN PRN Reason: Nausea Tenapanor HCl [Ibsrela] 50 mg PO BID Hyoscyamine Sulfate [Levsin] 0.125 mg SL QID Topiramate [Trokendi Xr] 50 mg PO HS Promethazine HCl [Phenergan] 50 mg PO Q8H PRN PRN Reason: Pain FLUoxetine HCL 20 mg PO DAILY Cetirizine HCl 10 mg PO DAILY Discontinued Sulfamethox-Tmp 800-160Mg [Bactrim DS 800-160 mg] 1 tab PO Q12HR Fondaparinux [Arixtra] 7.5 mg IM DAILY Discharge Medication List Montelukast Chew [Singulair chew] 10 mg PO DAILY 02/02/18 [History] oxyCODONE HCL [oxyCODONE HCL (IR)] 10 mg PO Q8H PRN 04/20/19 [History] Lansoprazole 30 mg PO BID 08/27/19 [History] Levothyroxine Sodium [Synthroid] 100 mcg PO DAILY 10/04/19 [History] Aspirin 81 mg PO DAILY 30 Days chewable 10/16/19 [Rx] SUMAtriptan succinate [Imitrex] 100 mg PO BID PRN 05/20/20 [History] Topiramate [Trokendi Xr] 50 mg PO HS 10/07/20 [History] Ondansetron Odt [Zofran ODT] 8 mg PO Q8HR PRN 05/03/21 [History] Cetirizine HCl 10 mg PO DAILY 03/15/22 [History] FLUoxetine HCL 20 mg PO DAILY 03/15/22 [History] Hyoscyamine Sulfate [Levsin] 0.125 mg SL QID 03/15/22 [History] Promethazine HCl [Phenergan] 50 mg PO Q8H PRN 03/15/22 [History] Tenapanor HCl [Ibsrela] 50 mg PO BID 03/15/22 [History] Dabigatran [Pradaxa] 150 mg PO BID 60 Days #120 cap 03/16/22 [Rx] Follow up Appointment(s)/Referral(s): Karthikeyan Pedro MD [Primary Care Provider] - 1-2 days (PLEASE CALL AND MAKE APPOINTMENT.) Ted Chung MD [STAFF PHYSICIAN] - 4 Weeks (PLEASE CALL AND SCHEDULE APPOINTMENT.) Patient Instructions/Handouts: Dabigatran (By mouth), Deep Vein Thrombosis (DC) Activity/Diet/Wound Care/Special Instructions: Activity: As tolerated. Take breaks as needed. Diet: Heart healthy and carb consistent diet. Avoid salts, or foods with hidden salts such as canned or boxed foods and frozen dinners. Extra salt makes your heart work harder and traps the fluid in your body for longer. Special Instructions: Take all of your medications as directed and remember to keep all of your doctor's appointments and follow-up as needed. You are also being discharged home on a blood thinner, Pradaxa. This is very important to take daily as directed until otherwise advised by your theater company producer, Dr. Chung. Being that you are being placed on a blood thinner it is very important to watch for any signs of bleeding and notify your doctor immediately if you notice any bleeding. It is also important to remove any trip hazards such as rugs or loose extension cords from your home to prevent unnecessary falls and if you do experience a fall or head injury, it is extremely important to be evaluated by a medical provider immediately to ensure no internal bleeding. Thank you for allowing us to participate in your care, it was truly a pleasure having you for our patient!!! Discharge Disposition: HOME SELF-CARE
--- NOTE | 2022-03-16 19:10 | P.PN ---
Subjective Progress Note Date: 03/16/22 Principal diagnosis: Recurrent upper extremity DVT In follow-up today patient has been started on Pradaxa, she denies any acute side effects, swelling in her left upper extremity is stable, not progressive. She has no other complaints today Objective - Vital Signs Vital signs: Vital Signs Temp 98.0 F 03/16/22 08:15 Pulse 78 03/16/22 08:15 Resp 16 03/16/22 08:15 BP 109/67 03/16/22 08:15 Pulse Ox 95 03/16/22 08:15 FiO2 Intake & Output 03/16/22 03/16/22 03/17/22 06:59 18:59 06:59 Intake Total 262.266 Balance 262.266 Weight 72.575 kg Intake: Intake, IV Titration 12.266 Amount Heparin Sod,Pork in 0.45% 12.266 NaCl 25,000 unit In 0.45 % NaCl 1 250ml.bag @ 18 UNITS/KG/HR 13.064 mls/hr IV .[id number] MILAN Rx#: [id number] Oral 250 Other: Voiding Method Toilet # Voids 2 0 - Constitutional General appearance: Present: average body habitus, cooperative, no acute distress - EENT Eyes: Present: anicteric sclerae, EOMI ENT: Present: hearing grossly normal - Respiratory Details: Respirations even and unlabored at rest - Neurologic Neurologic: Present: CNII-XII intact - Psychiatric Psychiatric: Present: A&O x's 3, appropriate affect, intact judgment & insight - Labs CBC & Chem 7: 03/16/22 05:27 03/16/22 05:27 Labs: Abnormal Lab Results - Last 24 Hours (Table) 03/16/22 03/16/22 Range/Units 05:27 05:27 MCHC 31.4 L (32.0-37.0) g/dL MPV 9.1 L (9.5-12.2) fL Total Bilirubin 0.20 L (0.30-1.20) mg/dL Alkaline Phosphatase 127 H (41-126) U/L Total Protein 5.6 L (6.2-8.2) g/dL - Imaging and Cardiology CT scan - chest: report reviewed MRI - head: report reviewed Assessment and Plan (1) Deep vein thrombosis (DVT) of left upper extremity Status: Acute Priority: High Code(s): I82.622 - ACUTE EMBOLISM AND THROMBOSIS OF DEEP VEINS OF L UP EXTREM SNOMED Code(s): 545956557 Plan: Patient has had failure of mult lines of anticoagulation, all Xa factor inhibitors. All of her clots are upper extremity and have been associated with invasive line placement. No known underlying clotting disorder has been identified in her extensive workup from the past. Unfortunately, patient is going to require line placement due to her multiple health conditions, chronic TPN. Thus far the only anticoagulants available to the patient that have not been tried yet are Pradaxa and Coumadin. Patient's history of gastroparesis Coumadin is likely going to be very difficult to regulate. Pradaxa has been prescribed. Co-pay is acceptable to patient and her / Doppler, right upper extremity, negative for DVT. CTA of the chest Negative for pulmonary embolism, interestingly, left subclavian clot is seen with multiple collaterals into the axilla. Case discussed with Vascular [employer]. SVC filter placement more risk then benefit. Pt has no Hx of lower extremity DVT. Doctor attests: I performed a history and physical examination of this patient, developed impression and plan of care. Discussed with dictator. I agree with dictators note, documented as a scribe. Time with Patient: Greater than 30
== END 2022-03-16 14:10 | disposition home or self-care (01) | DRG 315 ==
LOC: EC 19:53 → 6NMEDSUR 03-15 00:42 → OBSVTOIN 03-15 13:23 → 6NMEDSUR 03-15 19:04
PROVIDERS: ADMIT Internal Medicine; ATTEND Internal Medicine
DX: T82.868A Thrombosis due to vascular prosthetic devices, implants and grafts, initial encounter (principal); I82.812 Embolism and thrombosis of superficial veins of left lower extremity; I82.B12 Acute embolism and thrombosis of left subclavian vein; K55.1 Chronic vascular disorders of intestine; I82.A12 Acute embolism and thrombosis of left axillary vein; D50.9 Iron deficiency anemia, unspecified; E03.9 Hypothyroidism, unspecified; Z90.49 Acquired absence of other specified parts of digestive tract; G89.29 Other chronic pain; G43.909 Migraine, unspecified, not intractable, without status migrainosus; R00.0 Tachycardia, unspecified; R10.9 Unspecified abdominal pain; F32.A Depression, unspecified; K31.84 Gastroparesis; Z79.01 Long term (current) use of anticoagulants; Z79.82 Long term (current) use of aspirin; Z79.890 Hormone replacement therapy; Z79.899 Other long term (current) drug therapy; Z86.711 Personal history of pulmonary embolism; Z86.718 Personal history of other venous thrombosis and embolism; Z98.84 Bariatric surgery status; Z88.8 Allergy status to other drugs, medicaments and biological substances; Z87.19 Personal history of other diseases of the digestive system; Y84.8 Other medical procedures as the cause of abnormal reaction of the patient, or of later complication, without mention of misadventure at the time of the procedure
CPT/HCPCS: 71275; 80053; 82550; 85025; 85610; 85730; 96365; 96366; 96372; 96375; 96376; 99285

== ENCOUNTER 2022-04-05 21:55 | Emergency (ER) | payer BC ==
[2022-04-05] MEDS ORDERED: ACETAMINOPHEN TAB 500 MG TAB PO STA (22:47)
[2022-04-05] MEDS ORDERED: SODIUM CHLORIDE 0.9% 1,000 ML IV STA (22:47)
[2022-04-05] MEDS ORDERED: ONDANSETRON 4 MG/2 ML VIAL IVP STA (22:48)
[2022-04-05] MEDS ORDERED: HYDROmorphone 1 MG/ML 1 ML SYRINGE IVP STA (22:48)
--- NOTE | 2022-04-05 23:55 | ED ---
General Adult HPI - General Chief complaint: Fever Stated complaint: Fever Time Seen by Provider: 04/05/22 22:13 Source: patient, RN notes reviewed Mode of arrival: ambulatory Limitations: no limitations - History of Present Illness Initial comments: 42-year-old female presents to the emergency Department with complaints of fever. Patient reports fever began last night and persisted throughout the day. Has been taking Tylenol and Motrin with some improvement. Does have some right sided abdominal around site of implanted device. Was seen at [facility] prior to arrival where she had a full work up including CT of the abdomen and pelvis. States she was given Rocephin and Zithromax, then prescribed Cipro and Flagyl to take at home. States her temperature was down when she was discharged, but returned upon her arrival home. Has had minimal cough. Denies chest pain, vomiting, diarrhea, dysuria, or hematuria. - Related Data Home Medications Medication Instructions Recorded Confirmed Montelukast Chew [Singulair chew] 10 mg PO DAILY 02/02/18 03/15/22 oxyCODONE HCL [oxyCODONE HCL (IR)] 10 mg PO Q8H PRN 04/20/19 03/15/22 Lansoprazole 30 mg PO BID 08/27/19 03/15/22 Levothyroxine Sodium [Synthroid] 100 mcg PO DAILY 10/04/19 03/15/22 SUMAtriptan succinate [Imitrex] 100 mg PO BID PRN 05/20/20 03/15/22 Topiramate [Trokendi Xr] 50 mg PO HS 10/07/20 03/15/22 Ondansetron Odt [Zofran ODT] 8 mg PO Q8HR PRN 05/03/21 03/15/22 Cetirizine HCl 10 mg PO DAILY 03/15/22 03/15/22 FLUoxetine HCL 20 mg PO DAILY 03/15/22 03/15/22 Hyoscyamine Sulfate [Levsin] 0.125 mg SL QID 03/15/22 03/15/22 Promethazine HCl [Phenergan] 50 mg PO Q8H PRN 03/15/22 03/15/22 Tenapanor HCl [Ibsrela] 50 mg PO BID 03/15/22 03/15/22 Previous Rx's Medication Instructions Recorded Aspirin 81 mg PO DAILY 30 Days chewable 10/16/19 Dabigatran [Pradaxa] 150 mg PO BID 60 Days #120 cap 03/16/22 Allergies Allergy/AdvReac Type Severity Reaction Status Date / Time midazolam [From Versed] Allergy Anaphylaxis Verified 04/05/22 22:00 metoclopramide [From Reglan] AdvReac Mild jittery Verified 04/05/22 22:00 prochlorperazine AdvReac Mild JITTERY Verified 04/05/22 22:00 [From Compazine] Review of Systems ROS Statement: Those systems with pertinent positive or pertinent negative responses have been documented in the HPI. ROS Other: All systems not noted in ROS Statement are negative. Past Medical History Past Medical History: Deep Vein Thrombosis (DVT), GERD/Reflux, Pulmonary Embolus (PE), Thyroid Disorder Additional Past Medical History / Comment(s): Idiopathic gastroparesis, takes little in orally-has J tube for feedings and gastric stimulator- chronic abdominal pain, R pulmonary embolism 5-2017, dvt R upper extremity 2018, pancreatitis once in 2017-thought stone somewhere, hypothyroid, chronic anemia, sinus problems, migraines History of Any Multi-Drug Resistant Organisms: VRE Date of last positivie culture/infection: 08/01/18 MDRO Source:: VRE URINE Past Surgical History: Section, Cholecystectomy, Hernia Repair, Orthopedic Surgery, Tonsillectomy Additional Past Surgical History / Comment(s): Gastric pacer with removal in spring 2017, J tube, gastric stimulator, x3, 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 Mother Family Medical History: No Reported History Additional Family Medical History / Comment(s): Mother is 58yrs old. General Exam Limitations: no limitations General appearance: alert, in no apparent distress (Moderately ill-appearing female in no acute distress.) Eye exam: Present: normal appearance. Absent: scleral icterus, conjunctival injection ENT exam: Present: normal exam, normal oropharynx Neck exam: Present: normal inspection, full ROM. Absent: tenderness, lymphadenopathy Respiratory exam: Present: normal lung sounds bilaterally. Absent: respiratory distress, wheezes, rales, rhonchi, stridor, chest wall tenderness Cardiovascular Exam: Present: regular rate, tachycardia, normal heart sounds, other (Arrives with port accessed and left upper chest.) GI/Abdominal exam: Present: soft, tenderness (Tenderness upon palpation of the right side of the abdomen), normal bowel sounds, other (implanted stimulator in right lower abdomen- some tenderness around this site. J-Tube left side of abdomen is nontender.). Absent: distended, guarding, rebound, rigid Extremities exam: Present: normal inspection Back exam: Absent: CVA tenderness (R) Neurological exam: Present: alert, oriented X3 Psychiatric exam: Present: normal affect, normal mood Skin exam: Present: warm (skin is quite warm to touch), dry, intact, normal color Course Vital Signs 04/05/22 21:56 Temperature 101.2 F H Pulse Rate 118 H Respiratory 20 Rate Blood Pressure 155/75 O2 Sat by Pulse 96 Oximetry - Reevaluation(s) Reevaluation #1: 04/05/22 23:00 Upon initial exam, patient is found to be febrile with a oral temperature of 102.8. Has mild right-sided abdominal pain with no other symptoms. Reviewed results from [facility] as provided by patient. CT showed nonspecific colitis and possible right pyelonephritis with no hydronephrosis or evidence of kidney stone. Patient was given Rocephin and Zithromax prior to her departure. 04/06/22 01:00 Results were discussed with patient. Given fever and uncertainty of infection source, I recommended hospital admission. Patient is agreeable with this plan of care. 04/06/22 02:38 Spoke with hospitalist, Dr. Dias, who recommends transfer to [place] for continuity of care. 04/06/22 03:[address] Leiva at [facility] who accepts this patient. Patient is agreeable with transfer. Medical Decision Making - Medical Decision Making This is a pleasant ill appearing 42-year-old female with a significant abdominal history who presents to the emergency department this evening with complaints of fever and right-sided abdominal pain localized around the site of implanted device. Upon exam, patient is febrile with a temperature of 102.8. Tylenol and one liter of IV fluids were given with some improvement in fever, though pain persisted despite being given Dilaudid. Laboratory studies were obtained with minimal leukocytosis. Liver enzymes are mildly elevated. Viral respiratory swabs are negative. Urinalysis shows 1+ ketones and small amount of blood. Chest x-ray was obtained and was negative. I spoke with our hospitalist regarding this patient's care. He recommended transfer to [facility] for continuity of care. Patient was agreeable. I then spoke with Dr. Leiva at [facility] for ER to ER transfer. This patient's care was discussed with my attending, Josette. Was pt. sent in by a medical professional or institution? @ No Did you speak to anyone other than the patient for history? @ no Did you review nursing and triage notes? @ Yes, agree Were old charts reviewed? @ Previous admission records were reviewed. Workup from outside facility was reviewed as well. Differential Diagnosis? @ Sepsis, UTI, kidney stone, acute on chronic abdominal pain, infection of implanted device. EKG interpreted by me (3pts min.)? @ Not applicable X-rays interpreted by me (1pt min.)? @ Yes, chest x-ray shows no consolidation or acute findings. CT interpreted by me (1pt min.)? @ Not applicable U/S interpreted by me (1pt. min.)? @ Not applicable What testing was considered but not performed? (CT, X-rays, U/S, labs)? Why? @ Considered CT of the abdomen and pelvis, though patient had one done several hours ago therefore did not want repeat exposure. What meds were considered but not given? Why? @ IV antibiotics given within the past 8 hours therefore no additional doses were provided. Did you discuss the management of the patient with other professionals? @ Spoke with hospitalist, . Also spoke with [facility] ED physician, Dr. Leiva Did you reconcile home meds? @ No Was smoking cessation discussed for >3mins.? @ Not applicable Was critical care preformed (if so, how long)? @ No Were there social determinants of health that impacted care today? How? (Homelessness, low income, unemployed, alcoholism, drug addiction, transportation, low edu. Level, literacy, decrease access to med. care, penitentiary, rehab)? @ No Was there de-escalation of care discussed even if they declined? (Discuss DNR or withdrawal of care, Hospice)? @ No What co-morbidities impacted this encounter? (DM, HTN, Smoking, COPD, CAD, Cancer, CVA, Hep., AIDS, mental health diagnosis, sleep apnea, morbid obesity)? @ Chronic abdominal pain, gastroparesis Was patient admitted / discharged? @ Transferred Undiagnosed new problem with uncertain prognosis? @ Abdominal pain and fever of unknown etiology Drug Therapy requiring intensive monitoring for toxicity (Heparin, Nitro, Insulin, Cardizem)? @ No Were any procedures done? @ No Diagnosis/symptom? @ Fever, abdominal pain Acute, or Chronic, or Acute on Chronic? @ Acute Uncomplicated (without systemic symptoms) or Complicated (systemic symptoms)? @ Complicated Side effects of treatment? @ Not applicable Exacerbation, Progression, or Severe Exacerbation] @ No Poses a threat to life or bodily function? @ Not at this time - Lab Data Result diagrams: 04/05/22 23:35 04/05/22 23:35 Lab Results 04/05/22 04/05/22 04/05/22 Range/Units 23:35 23:35 23:35 WBC 11.4 H (3.8-10.6) k/uL RBC 4.59 (3.80-5.40) m/uL Hgb 13.4 (11.4-16.0) gm/dL Hct 39.1 (34.0-46.0) % MCV 85.2 (80.0-100.0) fL MCH 29.2 (25.0-35.0) pg MCHC 34.3 (31.0-37.0) g/dL RDW 13.3 (11.5-15.5) % Plt Count 230 (150-450) k/uL MPV 7.2 Neutrophils % 94 % Lymphocytes % 2 % Monocytes % 3 % Eosinophils % 0 % Basophils % 0 % Neutrophils # 10.7 H (1.3-7.7) k/uL Lymphocytes # 0.2 L (1.0-4.8) k/uL Monocytes # 0.3 (0-1.0) k/uL Eosinophils # 0.0 (0-0.7) k/uL Basophils # 0.0 (0-0.2) k/uL Sodium 137 (137-145) mmol/L Potassium 3.8 (3.5-5.1) mmol/L Chloride 106 (98-107) mmol/L Carbon Dioxide 22 (22-30) mmol/L Anion Gap 9 mmol/L BUN 14 (7-17) mg/dL Creatinine 0.85 (0.52-1.04) mg/dL Est GFR (CKD-EPI)AfAm >90 (>60 ml/min/1.73 sqM) Est GFR (CKD-EPI)NonAf 86 (>60 ml/min/1.73 sqM) Glucose 90 (74-99) mg/dL Plasma Lactic Acid Frank 0.9 (0.7-2.0) mmol/L Calcium 8.6 (8.4-10.2) mg/dL Total Bilirubin 0.9 (0.2-1.3) mg/dL AST 52 H (14-36) U/L ALT 48 H (4-34) U/L Alkaline Phosphatase 193 H (38-126) U/L Total Protein 6.0 L (6.3-8.2) g/dL Albumin 3.6 (3.5-5.0) g/dL Urine Color Urine Appearance (Clear) Urine pH (5.0-8.0) Ur Specific Media (1.001-1.035) Urine Protein (Negative) Urine Glucose (UA) (Negative) Urine Ketones (Negative) Urine Blood (Negative) Urine Nitrite (Negative) Urine Bilirubin (Negative) Urine Urobilinogen (<2.0) mg/dL Ur Leukocyte Esterase (Negative) Urine RBC (0-5) /hpf Urine WBC (0-5) /hpf Ur Squamous Epith Cells (0-4) /hpf Urine Mucus (None) /hpf Influenza Type A (PCR) (Not Detectd) Influenza Type B (PCR) (Not Detectd) RSV (PCR) (Not Detectd) SARS-CoV-2 (PCR) (Not Detectd) 04/05/22 04/06/22 Range/Units 23:35 00:30 WBC (3.8-10.6) k/uL RBC (3.80-5.40) m/uL Hgb (11.4-16.0) gm/dL Hct (34.0-46.0) % MCV (80.0-100.0) fL MCH (25.0-35.0) pg MCHC (31.0-37.0) g/dL RDW (11.5-15.5) % Plt Count (150-450) k/uL MPV Neutrophils % % Lymphocytes % % Monocytes % % Eosinophils % % Basophils % % Neutrophils # (1.3-7.7) k/uL Lymphocytes # (1.0-4.8) k/uL Monocytes # (0-1.0) k/uL Eosinophils # (0-0.7) k/uL Basophils # (0-0.2) k/uL Sodium (137-145) mmol/L Potassium (3.5-5.1) mmol/L Chloride (98-107) mmol/L Carbon Dioxide (22-30) mmol/L Anion Gap mmol/L BUN (7-17) mg/dL Creatinine (0.52-1.04) mg/dL Est GFR (CKD-EPI)AfAm (>60 ml/min/1.73 sqM) Est GFR (CKD-EPI)NonAf (>60 ml/min/1.73 sqM) Glucose (74-99) mg/dL Plasma Lactic Acid Frank (0.7-2.0) mmol/L Calcium (8.4-10.2) mg/dL Total Bilirubin (0.2-1.3) mg/dL AST (14-36) U/L ALT (4-34) U/L Alkaline Phosphatase (38-126) U/L Total Protein (6.3-8.2) g/dL Albumin (3.5-5.0) g/dL Urine Color Yellow Urine Appearance Clear (Clear) Urine pH 6.0 (5.0-8.0) Ur Specific Media 1.039 H (1.001-1.035) Urine Protein Trace H (Negative) Urine Glucose (UA) Negative (Negative) Urine Ketones 1+ H (Negative) Urine Blood Small H (Negative) Urine Nitrite Negative (Negative) Urine Bilirubin Negative (Negative) Urine Urobilinogen <2.0 (<2.0) mg/dL Ur Leukocyte Esterase Negative (Negative) Urine RBC 15 H (0-5) /hpf Urine WBC 1 (0-5) /hpf Ur Squamous Epith Cells 3 (0-4) /hpf Urine Mucus Rare H (None) /hpf Influenza Type A (PCR) Not Detected (Not Detectd) Influenza Type B (PCR) Not Detected (Not Detectd) RSV (PCR) Not Detected (Not Detectd) SARS-CoV-2 (PCR) Not Detected (Not Detectd) - Radiology Data Radiology results: report reviewed, image reviewed Interpreted by me: Per my interpretation, chest x-ray shows no evidence of focal consolidation or infiltrate. Port visualized to the left chest Two-view chest x-ray was obtained. Report was reviewed in its entirety. Impression per Dr. Young is no active cardiopulmonary disease. No change. Disposition Clinical Impression: Fever, Abdominal pain Disposition: OTHER INSTITUTION NOT DEFINED Condition: Serious Decision Date: 04/06/22 Decision Time: 01:50 - Out of Hospital Transfer - Req. Specs Out of Hospital Transfer - Requested Specifics: Other Emergency Center
[2022-04-06 00:30] LABS: Basophils % (A) 0 %; Eosinophils % (A) 0 %; HCT 39.1 % (34.0-46.0); HGB 13.4 gm/dL (11.4-16.0); Lymphocytes # (A) 0.2 k/uL (1.0-4.8); Lymphocytes % (A) 2 %; MCH 29.2 pg (25.0-35.0); MCHC 34.3 g/dL (31.0-37.0); MCV 85.2 fL (80.0-100.0); Mean Platelet Volume 7.2; Monocytes # (A) 0.3 k/uL (0-1.0); Monocytes % (A) 3 %; Neutrophils # (A) 10.7 k/uL (1.3-7.7); Neutrophils % (A) 94 %; Platelet Count 230 k/uL (150-450); RBC 4.59 m/uL (3.80-5.40); RDW 13.3 % (11.5-15.5); WBC 11.4 k/uL (3.8-10.6)
[2022-04-06 00:34] LABS: ALT 48 U/L (4-34); AST 52 U/L (14-36); African American GFR (CKD) >90 (>60 ml/min/1.73 sqM); Albumin 3.6 g/dL (3.5-5.0); Alkaline Phosphatase 193 U/L (38-126); Anion Gap 9 mmol/L; Blood Urea Nitrogen 14 mg/dL (7-17); Calcium 8.6 mg/dL (8.4-10.2); Carbon Dioxide 22 mmol/L (22-30); Chloride 106 mmol/L (98-107); Glucose 90 mg/dL (74-99); Non-African American GFR(CKD) 86 (>60 ml/min/1.73 sqM); Potassium 3.8 mmol/L (3.5-5.1); Sodium 137 mmol/L (137-145); Total Bilirubin 0.9 mg/dL (0.2-1.3)
--- NOTE | 2022-04-06 00:39 | XR ---
EXAMINATION TYPE: XR chest 2V DATE OF EXAM: 04/06/2022 COMPARISON: 07/28/2021 HISTORY: Fever TECHNIQUE: FINDINGS: Heart is normal. Lungs are clear of consolidation. There is no heart failure. There are no hilar masses. Costophrenic angles are clear. There is left-sided central venous catheter with tip in the superior vena cava. IMPRESSION: No active cardiopulmonary disease. No change.
[2022-04-06 00:47] LABS: Appearance,Urine Clear (Clear); Bilirubin,Urine Negative (Negative); Blood,Urine Small (Negative); Color,Urine Yellow; Glucose,Urine (UA) Negative (Negative); Ketones,Urine 1+ (Negative); Leukocyte Esterase,Urine Negative (Negative); Mucus,Urine Rare /hpf; Nitrite,Urine Negative (Negative); Protein,Urine Trace (Negative); RBC,Urine 15 /hpf (0-5); Specific Gravity,Urine 1.039 (1.001-1.035); Squamous Epithelial Cell,Urine 3 /hpf (0-4); Urobilinogen,Urine <2.0 mg/dL (<2.0); WBC,Urine 1 /hpf (0-5)
[2022-04-06] MEDS ORDERED: ACETAMINOPHEN TAB 325 MG TAB PO PRN (01:50)
[2022-04-06] MEDS ORDERED: IBUPROFEN 400 MG TAB PO PRN (01:50)
[2022-04-06] MEDS ORDERED: ONDANSETRON 4 MG/2 ML VIAL IVP PRN (01:50)
[2022-04-06] MEDS ORDERED: HYDROmorphone 1 MG/ML 1 ML SYRINGE IVP PRN (01:50)
[2022-04-06] MEDS ORDERED: NALOXONE 0.4 MG/ML 1 ML VIAL IV PRN (01:50)
[2022-04-06] MEDS ORDERED: SODIUM CHLORIDE 0.9% 1,000 ML IV SCH (02:00)
[2022-04-06 03:46] VITALS: TEMP 99
[2022-04-06 03:49] VITALS: BP 111/78; PULSE 104; RESP 16
== END 2022-04-06 03:31 | disposition other institution (70) ==
LOC: EC 21:55 → UNDOADMIN 04-06 02:23 → 6NMEDSUR 04-06 02:23 → EC 04-06 03:31
DX: R10.31 Right lower quadrant pain (principal); R50.9 Fever, unspecified; E07.9 Disorder of thyroid, unspecified; K21.9 Gastro-esophageal reflux disease without esophagitis; F32.A Depression, unspecified; Z20.822 Contact with and (suspected) exposure to COVID-19; Z90.49 Acquired absence of other specified parts of digestive tract; Z88.8 Allergy status to other drugs, medicaments and biological substances; Z88.4 Allergy status to anesthetic agent; Z88.9 Allergy status to unspecified drugs, medicaments and biological substances; Z79.899 Other long term (current) drug therapy
CPT/HCPCS: 99284; 96374; 96375; 96376; 80053; 83605; 85025; 87040; 87636; J2405; J1170; 36415; 71046; 81001

== ENCOUNTER 2022-07-28 13:37 | Emergency (ER) | payer BC ==
[2022-07-28] MEDS ORDERED: SODIUM CHLORIDE 0.9% 1,000 ML IV STA ×2 (14:57→17:30)
[2022-07-28] MEDS ORDERED: HYDROmorphone 1 MG/ML 1 ML SYRINGE IVP STA ×3 (14:58→19:07)
[2022-07-28] MEDS ORDERED: LORazepam 2 MG/ML INJ IV STA ×2 (15:26→19:07)
--- NOTE | 2022-07-28 15:26 | ED ---
Chest Pain HPI - General Chief Complaint: Chest Pain Stated Complaint: chest pain SOB tachycardia Source: patient, RN notes reviewed, old records reviewed Mode of arrival: wheelchair Limitations: no limitations - History of Present Illness Initial Comments: This is a 42-year-old female to the emergency department for evaluation again patient is well-known to our facility for multiple different issues and complaints chronic disease and coronary. Patient comes to emergency department today she is of recent inpatient hospitalization 3 weeks fever. Currently afebrile she was at work today he had a heart rate in the 190s felt lightheaded dizzy like she is given a pass out became sweaty with abdominal pain and chest pain. Patient presents to the ER for evaluation. Patient has currently chest pain abdominal pain and nausea with feelings of elevated heart rate near- syncope.. Apparently her feel sick contacts or change in medications no new medications. MD Complaint: chest pain -: days(s) Onset: during rest, during exertion Pain Location: substernal Pain Radiation: none Severity: moderate, severe Severity scale (1-10): 10 Quality: tightness, aching, sharp Consistency: constant Improves With: nothing Worsens With: nothing Context: recent illness Anginal Symptoms: nausea, vomiting, diaphoresis, dyspnea, sense of impending doom Other Symptoms: palpitations Treatments Prior to Arrival: none - Related Data Home Medications Medication Instructions Recorded Confirmed Montelukast Chew [Singulair chew] 10 mg PO HS 02/02/18 07/28/22 oxyCODONE HCL [oxyCODONE HCL (IR)] 10 mg PO Q8H PRN 04/20/19 07/28/22 Lansoprazole 30 mg PO BID 08/27/19 07/28/22 Levothyroxine Sodium [Synthroid] 100 mcg PO DAILY 10/04/19 07/28/22 SUMAtriptan succinate [Imitrex] 100 mg PO BID PRN 05/20/20 07/28/22 Topiramate [Trokendi Xr] 50 mg PO HS 10/07/20 07/28/22 Cetirizine HCl 10 mg PO DAILY 03/15/22 07/28/22 Hyoscyamine Sulfate [Levsin] 0.125 mg SL QID PRN 03/15/22 07/28/22 Tenapanor HCl [Ibsrela] 50 mg PO BID 03/15/22 07/28/22 FLUoxetine HCL [PROzac] 40 mg PO DAILY 05/21/22 07/28/22 ARIPiprazole [Abilify] 2 mg PO DAILY 07/28/22 07/28/22 Fondaparinux [Arixtra] 7.5 mg SQ HS 07/28/22 07/28/22 Ondansetron Odt [Zofran Odt] 8 mg PO Q8HR PRN 07/28/22 07/28/22 Previous Rx's Medication Instructions Recorded Aspirin 81 mg PO DAILY 30 Days chewable 10/16/19 Allergies Allergy/AdvReac Type Severity Reaction Status Date / Time midazolam [From Versed] Allergy Anaphylaxis Verified 07/28/22 17:07 metoclopramide [From Reglan] AdvReac Mild jittery Verified 07/28/22 17:07 prochlorperazine AdvReac Mild JITTERY Verified 07/28/22 17:07 [From Compazine] Review of Systems ROS Statement: Those systems with pertinent positive or pertinent negative responses have been documented in the HPI. ROS Other: All systems not noted in ROS Statement are negative. EKG Findings - EKG Comments: EKG Findings:: EKG is sinus 84 OR 135 QRS 80 QTC 424 Past Medical History Past Medical History: Deep Vein Thrombosis (DVT), GERD/Reflux, Pulmonary Embolus (PE), Thyroid Disorder Additional Past Medical History / Comment(s): Idiopathic gastroparesis, takes little in orally-has J tube for feedings and gastric stimulator- chronic abdominal pain, R pulmonary embolism 5-2017, dvt R upper extremity 2019, pancreatitis once in 2017-thought stone somewhere, hypothyroid, chronic anemia, sinus problems, migraines History of Any Multi-Drug Resistant Organisms: VRE Date of last positivie culture/infection: 08/01/18 MDRO Source:: VRE URINE Past Surgical History: Section, Cholecystectomy, Hernia Repair, Orthopedic Surgery, Tonsillectomy Additional Past Surgical History / Comment(s): Gastric pacer with removal in spring 2017, J tube, gastric stimulator, x3, 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 Mother Family Medical History: No Reported History Additional Family Medical History / Comment(s): Mother is 58yrs old. General Exam Limitations: no limitations General appearance: alert, anxious, in distress Head exam: Present: atraumatic, normocephalic, normal inspection Eye exam: Present: normal appearance, PERRL, EOMI. Absent: scleral icterus, conjunctival injection, periorbital swelling ENT exam: Present: normal exam, mucous membranes dry Neck exam: Present: normal inspection. Absent: tenderness, meningismus, lymphadenopathy Respiratory exam: Present: normal lung sounds bilaterally. Absent: respiratory distress, wheezes, rales, rhonchi, stridor Cardiovascular Exam: Present: normal rhythm, tachycardia, normal heart sounds. Absent: systolic murmur, diastolic murmur, rubs, gallop, clicks GI/Abdominal exam: Present: soft, normal bowel sounds. Absent: distended, tenderness, guarding, rebound, rigid Extremities exam: Present: normal inspection, full ROM, normal capillary refill. Absent: tenderness, pedal edema, joint swelling, calf tenderness Back exam: Present: normal inspection Neurological exam: Present: alert, oriented X3, CN II-XII intact Psychiatric exam: Present: normal affect, normal mood Skin exam: Present: warm, dry, intact, normal color. Absent: rash Course Vital Signs 07/28/22 07/28/22 07/28/22 13:39 14:22 16:00 Temperature 98.6 F Pulse Rate 89 94 Pulse Rate [ 77 Manager Target ] Respiratory 20 18 Rate Blood Pressure 129/86 121/74 O2 Sat by Pulse 99 99 Oximetry 07/28/22 07/28/22 17:00 18:00 Temperature Pulse Rate 93 96 Pulse Rate [ Manager Target ] Respiratory 18 18 Rate Blood Pressure 153/84 128/75 O2 Sat by Pulse 99 99 Oximetry - Reevaluation(s) Reevaluation #1: 07/28/22 19:37 Medical record is reviewed Reevaluation #2: 07/28/22 19:37 Patient informed results and questions answered Reevaluation #3: 07/28/22 19:37 Patient significant improvement in symptoms here in the ER 07/28/22 19:42 Studies Chest x-rays negative for acute disease, CT chest abdomen pelvis is improved, from prior Reevaluation #4: 07/28/22 19:37 Was pt. sent in by a medical professional or institution? @ -no Did you speak to anyone other than the patient for history? @ -no Did you review nursing and triage notes? @ -agree Were old charts reviewed? @ -yes priod admissions, prior CT scan with adenpathy and possible malposition of feeding tube Differential Diagnosis? @ -chest pain, arrhythmia EKG interpreted by me (3pts min.)? @ -yes X-rays interpreted by me (1pt min.)? @ -yes CT interpreted by me (1pt min.)? @ -no U/S interpreted by me (1pt. min.)? @ -no What testing was considered but not performed? (CT, X-rays, U/S, labs)? Why? @ -no What meds were considered but not given? Why? @ -no Did you discuss the management of the patient with other professionals? @ -no Did you reconcile home meds? @ -no Was smoking cessation discussed for >3mins.? @ -no Was critical care preformed (if so, how long)? @ -no Were there social determinants of health that impacted care today? How? (Homelessness, low income, unemployed, alcoholism, drug addiction, transportation, low edu. Level, literacy, decrease access to med. care, retirement, rehab)? @ -no Was there de-escalation of care discussed even if they declined? (Discuss DNR or withdrawal of care, Hospice)? @ -no What co-morbidities impacted this encounter? (DM, HTN, Smoking, COPD, CAD, Cancer, CVA, Hep., AIDS, mental health diagnosis, sleep apnea, morbid obesity)? @ -no Was patient admitted / discharged? @ -dc Undiagnosed new problem with uncertain prognosis? @ -no Drug Therapy requiring intensive monitoring for toxicity (Heparin, Nitro, Insulin, Cardizem)? @ -no Were any procedures done? @ -no Diagnosis/symptom? @ -cp, arrhythmia, NV Acute, or Chronic, or Acute on Chronic? @ -acute on chronic Uncomplicated (without systemic symptoms) or Complicated (systemic symptoms)? @ -uncomplicated Side effects of treatment? @ -no Exacerbation, Progression, or Severe Exacerbation] @ -exacerbation Poses a threat to life or bodily function? @ -no Reevaluation #5: 07/28/22 19:40 Differential Chest Pain: Stable Angina, Unstable Angina, STEMI, NSTEMI Aortic Dissection, Pneumothorax, Musculoskeletal, Esophageal Spasm GERD, Cholecystitis, Pancreatitis, Zoster, this is not meant to be an all-inclusive list. Chest Pain MDM - MDM 42 female to the ER for evaluation chest and abdominal pain nausea vomiting and arrhythmia with near syncope. Patient and near syncopal event just prior to arrival. Patient was at work when she felt like she was given a pass out, elevated heart rate in the 190s. Symptoms are improved here in the ER patient feels all is okay for discharge Disposition Clinical Impression: Near syncope, Atypical chest pain, Tachycardia, Arrhythmia, Nausea & vomiting Disposition: HOME SELF-CARE Condition: Fair Instructions (If sedation given, give patient instructions): Tachycardia (ED) Is patient prescribed a controlled substance at d/c from ED?: No Referrals: Karthikeyan Pedro MD [Primary Care Provider] - 1-2 days Time of Disposition: 19:30
[2022-07-28 16:10] LABS: Basophils % (A) 0 %; Eosinophils # (A) 0.1 k/uL (0-0.7); Eosinophils % (A) 1 %; HCT 38.8 % (34.0-46.0); HGB 13.1 gm/dL (11.4-16.0); Lymphocytes # (A) 1.4 k/uL (1.0-4.8); Lymphocytes % (A) 16 %; MCH 27.7 pg (25.0-35.0); MCHC 33.8 g/dL (31.0-37.0); MCV 81.8 fL (80.0-100.0); Monocytes # (A) 0.5 k/uL (0-1.0); Monocytes % (A) 5 %; Neutrophils # (A) 6.8 k/uL (1.3-7.7); Neutrophils % (A) 77 %; Platelet Count 376 k/uL (150-450); RBC 4.74 m/uL (3.80-5.40); RDW 14.5 % (11.5-15.5); WBC 8.8 k/uL (3.8-10.6)
[2022-07-28 16:12] LABS: Prothrombin Time 10.7 sec (9.0-12.0)
[2022-07-28] MEDS ORDERED: diphenhydrAMINE 50 MG/ML 1 ML VIAL IVP STA (16:13)
[2022-07-28 16:18] LABS: ALT 22 U/L (4-34); African American GFR (CKD) >90 (>60 ml/min/1.73 sqM); Albumin 4.2 g/dL (3.5-5.0); Anion Gap 13 mmol/L; Blood Urea Nitrogen 15 mg/dL (7-17); Calcium 9.5 mg/dL (8.4-10.2); Carbon Dioxide 21 mmol/L (22-30); Chloride 105 mmol/L (98-107); Glucose 76 mg/dL (74-99); Non-African American GFR(CKD) >90 (>60 ml/min/1.73 sqM); Sodium 139 mmol/L (137-145); Total Bilirubin 0.5 mg/dL (0.2-1.3)
--- NOTE | 2022-07-28 16:23 | XR ---
EXAMINATION TYPE: XR chest 2V DATE OF EXAM: 07/28/2022 4:12 PM COMPARISON: Chest radiographs from 05/21/2022 TECHNIQUE: XR chest 2V Frontal and lateral views of the chest. CLINICAL INDICATION:Female, 42 years old with history of Chest Pain; FINDINGS: Lungs/Pleura: There is no evidence of pleural effusion, focal consolidation, or pneumothorax. Pulmonary vascularity: Unremarkable. Heart/mediastinum: Cardiomediastinal silhouette is unremarkable. Musculoskeletal: No acute osseous pathology. Other findings: None Lines/Tubes: [id number] projecting over the left hemithorax with distal tip at the cavoatrial junction. IMPRESSION: No acute cardiopulmonary disease/process.
[2022-07-28 16:37] LABS: AST 23 U/L (14-36); Alkaline Phosphatase 146 U/L (38-126); Magnesium 2.1 mg/dL (1.6-2.3); Potassium 4.1 mmol/L (3.5-5.1)
[2022-07-28] MEDS ORDERED: ONDANSETRON 4 MG/2 ML VIAL IVP STA (18:16)
--- NOTE | 2022-07-28 18:21 | CT ---
EXAMINATION TYPE: CT ChestAbdPelvis w con CT DLP: 992.9 mGycm, Automated exposure control for dose reduction was used. DATE OF EXAM: 07/28/2022 5:50 PM COMPARISON: 03/15/2022. 02/25/2022 CT. CLINICAL INDICATION:Female, 42 years old with history of pain, pain. hx of gastroparesis. Technique: Multiple axial images of the chest, abdomen, and pelvis were obtained. Two-dimensional cor onal and sagittal reconstructions were obtained. Contrast used:100ml mL of Isovue 300 with IV Contrast, Oral contrast used: without Oral Contrast Findings: CHEST: LUNGS/ PLEURA: The lung parenchyma appears unremarkable. AIRWAY: Patent and unremarkable. HEART: Size within normal limits. MEDIASTINUM: No gross evidence of adenopathy. VASCULATURE: No aortic aneurysm. MUSCULOSKELETAL: No acute osseous abnormalities. SOFT TISSUES/LYMPH NODES: Left chest wall [id number] with tip terminating in the superior vena cav a.. LOWER NECK: No significant findings. ABDOMEN: ABDOMEN LIVER: Unremarkable GALLBLADDER AND BILE DUCTS: Gallbladder is surgically absent with mild intrahepatic and extra hepatic biliary dilatation likely physiologic and a postcholecystectomy change. No evidence of choledocholit hiasis. Biliary dilation is similar to prior 02/25/2022. PANCREAS: Unremarkable. SPLEEN: Unremarkable. ADRENAL GLANDS: Unremarkable. KIDNEYS AND URETERS: 2 mm nonobstructing right renal calculus suggested. No evidence of left renal ca lculus. PELVIS BLADDER: The urinary bladder is dilated. REPRODUCTIVE: IUD is within the endometrium. ABDOMEN & PELVIS STOMACH AND BOWEL: Electronic device with leads within the anterior abdomen. Additional tubing with c atheter terminating in the bowel which may represent a J-tube.. No evidence of bowel obstruction. PERITONEUM: No evidence of pneumoperitoneum or free fluid. VASCULATURE: No evidence of aortic aneurysm. MUSCULOSKELETAL: No acute osseous abnormalities LYMPH NODES: No gross evidence for lymphadenopathy. SOFT TISSUE/ABDOMINAL WALL: Unremarkable IMPRESSION: 1. No definitive acute abdominal process to explain the patient's pain. There is a J-tube with tip t erminating within the small bowel jejunum. There is a stimulator device is also present with leads in stable position. 2. Mild dilation of the biliary system which can be seen in setting of postcholecystectomy physiolog y. Findings are similar to 02/25/2022. 3. IUD within the endometrium.
[2022-07-28 19:51] VITALS: BP 127/96; PULSE 107; RESP 16; TEMP 98.2
== END 2022-07-28 19:51 | disposition home or self-care (01) ==
LOC: EC 13:37
DX: I49.9 Cardiac arrhythmia, unspecified (principal); R11.2 Nausea with vomiting, unspecified; E03.9 Hypothyroidism, unspecified; K21.9 Gastro-esophageal reflux disease without esophagitis; F32.A Depression, unspecified; Z79.899 Other long term (current) drug therapy; Z79.890 Hormone replacement therapy; Z88.4 Allergy status to anesthetic agent; Z88.8 Allergy status to other drugs, medicaments and biological substances; Z86.711 Personal history of pulmonary embolism; Z86.718 Personal history of other venous thrombosis and embolism
CPT/HCPCS: 36415; 80053; 83735; 84484; 85025; 85610; 85730; 71046; 71260; 74177; 99285; 96374; 96375 ×3; 96376 ×3; 96361; J2060; J1200; J2405; J1170; Q9967

== ENCOUNTER 2022-07-30 00:36 | Emergency (ER) | payer BC ==
[2022-07-30 02:59] VITALS: RESP 18; TEMP 98.7
[2022-07-30] MEDS ORDERED: SODIUM CHLORIDE 0.9% 1,000 ML IV ONE (03:56)
[2022-07-30] MEDS ORDERED: LORazepam 2 MG/ML INJ IV STA (03:56)
[2022-07-30 03:59] LABS: Basophils % (A) 0 %; Eosinophils # (A) 0.1 k/uL (0-0.7); Eosinophils % (A) 1 %; HCT 36.7 % (34.0-46.0); HGB 12.6 gm/dL (11.4-16.0); Lymphocytes # (A) 0.5 k/uL (1.0-4.8); Lymphocytes % (A) 4 %; MCH 28.7 pg (25.0-35.0); MCHC 34.3 g/dL (31.0-37.0); MCV 83.7 fL (80.0-100.0); Mean Platelet Volume 7.1; Monocytes # (A) 0.3 k/uL (0-1.0); Monocytes % (A) 2 %; Neutrophils # (A) 11.2 k/uL (1.3-7.7); Neutrophils % (A) 92 %; Platelet Count 199 k/uL (150-450); RBC 4.39 m/uL (3.80-5.40); RDW 14.4 % (11.5-15.5); WBC 12.2 k/uL (3.8-10.6)
[2022-07-30 04:20] LABS: ALT 25 U/L (4-34); AST 27 U/L (14-36); African American GFR (CKD) >90 (>60 ml/min/1.73 sqM); Albumin 3.5 g/dL (3.5-5.0); Alkaline Phosphatase 156 U/L (38-126); Anion Gap 12 mmol/L; Blood Urea Nitrogen 10 mg/dL (7-17); Calcium 8.4 mg/dL (8.4-10.2); Carbon Dioxide 18 mmol/L (22-30); Chloride 107 mmol/L (98-107); Glucose 81 mg/dL (74-99); Non-African American GFR(CKD) 85 (>60 ml/min/1.73 sqM); Potassium 3.6 mmol/L (3.5-5.1); Sodium 137 mmol/L (137-145); Total Bilirubin 0.6 mg/dL (0.2-1.3); Total Protein 5.9 g/dL (6.3-8.2)
[2022-07-30] MEDS ORDERED: diphenhydrAMINE 50 MG/ML 1 ML VIAL IVP STA (05:18)
[2022-07-30 05:27] LABS: Appearance,Urine Clear (Clear); Bacteria,Urine Rare /hpf; Bilirubin,Urine Negative (Negative); Blood,Urine Negative (Negative); Color,Urine Yellow; Glucose,Urine (UA) Negative (Negative); Hyaline Casts,Urine 1 /lpf (0-2); Ketones,Urine 3+ (Negative); Leukocyte Esterase,Urine Trace (Negative); Mucus,Urine Occasional /hpf; Nitrite,Urine Negative (Negative); Protein,Urine Negative (Negative); RBC,Urine 3 /hpf (0-5); Specific Gravity,Urine 1.017 (1.001-1.035); Squamous Epithelial Cell,Urine 3 /hpf (0-4); Urobilinogen,Urine <2.0 mg/dL (<2.0); WBC,Urine 5 /hpf (0-5)
--- NOTE | 2022-07-30 05:30 | ED ---
Fever HPI - General Chief Complaint: Fever Stated Complaint: Fever,Vomiting Time Seen by Provider: 07/30/22 03:12 Source: patient Mode of arrival: ambulatory - History of Present Illness Initial Comments: 42 year old female with past medical history of idiopathic gastroparesis, PE, migraines who presents to the emergency department reporting nausea and vomiting. Patient has frequent episodes of nausea and vomiting. She has a feeding tube and does not eat or drink anything by mouth. States that she has a port that she is able to access for fluids and anti-nausea medications. Symptoms have not been alleviated with her efforts at home and therefore she came into the emergency department for evaluation. She does admit to pain at the base of her neck. Also reports a fever for which she states she took Motrin and Tylenol at home. Denies any sick contacts. No urinary or bowel complaints. 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 - Related Data Home Medications Medication Instructions Recorded Confirmed Montelukast Chew [Singulair chew] 10 mg PO HS 02/02/18 07/28/22 oxyCODONE HCL [oxyCODONE HCL (IR)] 10 mg PO Q8H PRN 04/20/19 07/28/22 Lansoprazole 30 mg PO BID 08/27/19 07/28/22 Levothyroxine Sodium [Synthroid] 100 mcg PO DAILY 10/04/19 07/28/22 SUMAtriptan succinate [Imitrex] 100 mg PO BID PRN 05/20/20 07/28/22 Topiramate [Trokendi Xr] 50 mg PO HS 10/07/20 07/28/22 Cetirizine HCl 10 mg PO DAILY 03/15/22 07/28/22 Hyoscyamine Sulfate [Levsin] 0.125 mg SL QID PRN 03/15/22 07/28/22 Tenapanor HCl [Ibsrela] 50 mg PO BID 03/15/22 07/28/22 FLUoxetine HCL [PROzac] 40 mg PO DAILY 05/21/22 07/28/22 ARIPiprazole [Abilify] 2 mg PO DAILY 07/28/22 07/28/22 Fondaparinux [Arixtra] 7.5 mg SQ HS 07/28/22 07/28/22 Ondansetron Odt [Zofran Odt] 8 mg PO Q8HR PRN 07/28/22 07/28/22 Previous Rx's Medication Instructions Recorded Aspirin 81 mg PO DAILY 30 Days chewable 10/16/19 Allergies Allergy/AdvReac Type Severity Reaction Status Date / Time midazolam [From Versed] Allergy Anaphylaxis Verified 08/08/22 09:36 metoclopramide [From Reglan] AdvReac Mild jittery Verified 08/08/22 09:36 prochlorperazine AdvReac Mild JITTERY Verified 08/08/22 09:36 [From Compazine] Review of Systems ROS Statement: Those systems with pertinent positive or pertinent negative responses have been documented in the HPI. ROS Other: All systems not noted in ROS Statement are negative. Past Medical History Past Medical History: Deep Vein Thrombosis (DVT), GERD/Reflux, Pulmonary Embolus (PE), Thyroid Disorder Additional Past Medical History / Comment(s): Idiopathic gastroparesis, takes little in orally-has J tube for feedings and gastric stimulator- chronic abdominal pain, R pulmonary embolism 5-2017, dvt R upper extremity 2018, pancreatitis once in 2017-thought stone somewhere, hypothyroid, chronic anemia, sinus problems, migraines History of Any Multi-Drug Resistant Organisms: VRE Date of last positivie culture/infection: 08/01/18 MDRO Source:: VRE URINE Past Surgical History: Section, Cholecystectomy, Hernia Repair, Orthopedic Surgery, Tonsillectomy Additional Past Surgical History / Comment(s): Gastric pacer with removal in spring 2017, J tube, gastric stimulator, x3, 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 Mother Family Medical History: No Reported History Additional Family Medical History / Comment(s): Mother is 58yrs old. General Exam General appearance: alert, in no apparent distress Head exam: Present: atraumatic, normocephalic, normal inspection Eye exam: Present: normal appearance, PERRL, EOMI. Absent: scleral icterus, conjunctival injection, periorbital swelling ENT exam: Present: normal exam, mucous membranes moist Neck exam: Present: normal inspection. Absent: tenderness, meningismus, lymphadenopathy Respiratory exam: Present: normal lung sounds bilaterally. Absent: respiratory distress, wheezes, rales, rhonchi, stridor Cardiovascular Exam: Present: regular rate, normal rhythm, normal heart sounds. Absent: systolic murmur, diastolic murmur, rubs, gallop, clicks GI/Abdominal exam: Present: soft, normal bowel sounds. Absent: distended, tenderness, guarding, rebound, rigid Extremities exam: Present: normal inspection, full ROM, normal capillary refill. Absent: tenderness, pedal edema, joint swelling, calf tenderness Back exam: Present: normal inspection Neurological exam: Present: alert, oriented X3, CN II-XII intact Psychiatric exam: Present: normal affect, normal mood Skin exam: Present: warm, dry, intact, normal color. Absent: rash Course Vital Signs 07/30/22 07/30/22 07/30/22 00:54 02:56 06:46 Temperature 99.7 F H 98.7 F 98.7 F Pulse Rate 107 H 89 75 Respiratory 16 18 18 Rate Blood Pressure 100/67 103/58 112/78 O2 Sat by Pulse 98 97 99 Oximetry Medical Decision Making - Medical Decision Making Was pt. sent in by a medical professional or institution (FESTUS Ramirez, DISCOVERY GUIDE, urgent care, hospital, or senior care...) When possible be specific @ -No Did you speak to anyone other than the patient for history (EMS, parent, family, police, friend...)? What history was obtained from this source @ -Patients Did you review nursing and triage notes (agree or disagree)? Why? @ -I reviewed and agree with nursing and triage notes Were old charts reviewed (outside hosp., previous admission, EMS record, old EKG, old radiological studies, urgent care reports/EKG's, senior care records)? Report findings @ - old charts were reviewed - patient seen several times for same complaint Differential Diagnosis (chest pain, altered mental status, abdominal pain women, abdominal pain men, vaginal bleeding, weakness, fever, dyspnea, syncope, headache, dizziness, GI bleed, back pain, seizure, CVA, palpatations, mental health, musculoskeletal)? @ -influenza, covid, gastroenteritis, strep, colitis, bowel obstruction EKG interpreted by me (3pts min.). @ -No X-rays interpreted by me (1pt min.). @ -None done CT interpreted by me (1pt min.). @ -None done U/S interpreted by me (1pt. min.). @ -None done What testing was considered but not performed or refused? (CT, X-rays, U/S, labs)? Why? @ -None What meds were considered but not given or refused? Why? @ -None Did you discuss the management of the patient with other professionals (professionals i.e. DrBeverly, PA, DISCOVERY GUIDE, lab, RT, psych nurse, social media campaign manager, shorts sifter, teacher, special service officer, case technician)? Give summary @ -No Was smoking cessation discussed for >3mins.? @ -No Was critical care preformed (if so, how long)? @ -No Were there social determinants of health that impacted care today? How? (Homelessness, low income, unemployed, alcoholism, drug addiction, transportation, low edu. Level, literacy, decrease access to med. care, correction, rehab)? @ -No Was there de-escalation of care discussed even if they declined (Discuss DNR or withdrawal of care, Hospice)? DNR status @ -No What co-morbidities impacted this encounter? (DM, HTN, Smoking, COPD, CAD, Cancer, CVA, ARF, Chemo, Hep., AIDS, mental health diagnosis, sleep apnea, morbid obesity)? @ -gastroparesis Was patient admitted / discharged? Hospital course, mention meds given and route, prescriptions, significant lab abnormalities, going to OR and other pertinent info. @ -patient was placed in room 29. History and physical is performed. IV is established. Laboratory studies are conducted. She was given Benadryl, Ativan and Dilaudid for her symptoms. Patient reevaluated and reports to improve symptoms. Laboratory studies within normal limits at this time. Patient will be discharged home and instructed to follow up with primary care doctor. Return for any worsening symptoms. Patient discharged home in stable condition Undiagnosed new problem with uncertain prognosis? @ -No Drug Therapy requiring intensive monitoring for toxicity (Heparin, Nitro, Insulin, Cardizem)? @ -No Were any procedures done? @ -No Diagnosis/symptom? @ -acute nausea and vomiting Acute, or Chronic, or Acute on Chronic? @ -acute on chronic Uncomplicated (without systemic symptoms) or Complicated (systemic symptoms)? @ -complicated Side effects of treatment? @ -No Exacerbation, Progression, or Severe Exacerbation? @ -No Poses a threat to life or bodily function? How? (Chest pain, [place], [place], pneumonia, PE, COPD, DKA, ARF, appy, cholecystitis, CVA, Diverticulitis, Homicidal, Suicidal, threat to staff... and all critical care pts) @ -No - Lab Data Result diagrams: 07/30/22 03:16 07/30/22 03:16 Lab Results 07/30/22 07/30/22 07/30/22 Range/Units 03:16 03:16 03:16 WBC 12.2 H (3.8-10.6) k/uL RBC 4.39 (3.80-5.40) m/uL Hgb 12.6 (11.4-16.0) gm/dL Hct 36.7 (34.0-46.0) % MCV 83.7 (80.0-100.0) fL MCH 28.7 (25.0-35.0) pg MCHC 34.3 (31.0-37.0) g/dL RDW 14.4 (11.5-15.5) % Plt Count 199 (150-450) k/uL MPV 7.1 Neutrophils % 92 % Lymphocytes % 4 % Monocytes % 2 % Eosinophils % 1 % Basophils % 0 % Neutrophils # 11.2 H (1.3-7.7) k/uL Lymphocytes # 0.5 L (1.0-4.8) k/uL Monocytes # 0.3 (0-1.0) k/uL Eosinophils # 0.1 (0-0.7) k/uL Basophils # 0.0 (0-0.2) k/uL Sodium 137 (137-145) mmol/L Potassium 3.6 (3.5-5.1) mmol/L Chloride 107 (98-107) mmol/L Carbon Dioxide 18 L (22-30) mmol/L Anion Gap 12 mmol/L BUN 10 (7-17) mg/dL Creatinine 0.86 (0.52-1.04) mg/dL Est GFR (CKD-EPI)AfAm >90 (>60 ml/min/1.73 sqM) Est GFR (CKD-EPI)NonAf 85 (>60 ml/min/1.73 sqM) Glucose 81 (74-99) mg/dL Plasma Lactic Acid Frank (0.7-2.0) mmol/L Calcium 8.4 (8.4-10.2) mg/dL Total Bilirubin 0.6 (0.2-1.3) mg/dL AST 27 (14-36) U/L ALT 25 (4-34) U/L Alkaline Phosphatase 156 H (38-126) U/L Total Protein 5.9 L (6.3-8.2) g/dL Albumin 3.5 (3.5-5.0) g/dL Urine Color Yellow Urine Appearance Clear (Clear) Urine pH 6.0 (5.0-8.0) Ur Specific [place] 1.017 (1.001-1.035) Urine Protein Negative (Negative) Urine Glucose (UA) Negative (Negative) Urine Ketones 3+ H (Negative) Urine Blood Negative (Negative) Urine Nitrite Negative (Negative) Urine Bilirubin Negative (Negative) Urine Urobilinogen <2.0 (<2.0) mg/dL Ur Leukocyte Esterase Trace H (Negative) Urine RBC 3 (0-5) /hpf Urine WBC 5 (0-5) /hpf Ur Squamous Epith Cells 3 (0-4) /hpf Urine Bacteria Rare H (None) /hpf Hyaline Casts 1 (0-2) /lpf Urine Mucus Occasional H (None) /hpf Influenza Type A (PCR) (Not Detectd) Influenza Type B (PCR) (Not Detectd) RSV (PCR) (Not Detectd) SARS-CoV-2 (PCR) (Not Detectd) 07/30/22 07/30/22 Range/Units 03:16 03:16 WBC (3.8-10.6) k/uL RBC (3.80-5.40) m/uL Hgb (11.4-16.0) gm/dL Hct (34.0-46.0) % MCV (80.0-100.0) fL MCH (25.0-35.0) pg MCHC (31.0-37.0) g/dL RDW (11.5-15.5) % Plt Count (150-450) k/uL MPV Neutrophils % % Lymphocytes % % Monocytes % % Eosinophils % % Basophils % % Neutrophils # (1.3-7.7) k/uL Lymphocytes # (1.0-4.8) k/uL Monocytes # (0-1.0) k/uL Eosinophils # (0-0.7) k/uL Basophils # (0-0.2) k/uL Sodium (137-145) mmol/L Potassium (3.5-5.1) mmol/L Chloride (98-107) mmol/L Carbon Dioxide (22-30) mmol/L Anion Gap mmol/L BUN (7-17) mg/dL Creatinine (0.52-1.04) mg/dL Est GFR (CKD-EPI)AfAm (>60 ml/min/1.73 sqM) Est GFR (CKD-EPI)NonAf (>60 ml/min/1.73 sqM) Glucose (74-99) mg/dL Plasma Lactic Acid Frank 0.8 (0.7-2.0) mmol/L Calcium (8.4-10.2) mg/dL Total Bilirubin (0.2-1.3) mg/dL AST (14-36) U/L ALT (4-34) U/L Alkaline Phosphatase (38-126) U/L Total Protein (6.3-8.2) g/dL Albumin (3.5-5.0) g/dL Urine Color Urine Appearance (Clear) Urine pH (5.0-8.0) Ur Specific [place] (1.001-1.035) Urine Protein (Negative) Urine Glucose (UA) (Negative) Urine Ketones (Negative) Urine Blood (Negative) Urine Nitrite (Negative) Urine Bilirubin (Negative) Urine Urobilinogen (<2.0) mg/dL Ur Leukocyte Esterase (Negative) Urine RBC (0-5) /hpf Urine WBC (0-5) /hpf Ur Squamous Epith Cells (0-4) /hpf Urine Bacteria (None) /hpf Hyaline Casts (0-2) /lpf Urine Mucus (None) /hpf Influenza Type A (PCR) Not Detected (Not Detectd) Influenza Type B (PCR) Not Detected (Not Detectd) RSV (PCR) Not Detected (Not Detectd) SARS-CoV-2 (PCR) Not Detected (Not Detectd) Disposition Clinical Impression: Nausea & vomiting Disposition: HOME SELF-CARE Condition: Stable Instructions (If sedation given, give patient instructions): Acute Nausea and Vomiting (ED) Additional Instructions: Please follow-up with your doctor and return for any new or worsening symptoms Is patient prescribed a controlled substance at d/c from ED?: No Referrals: Karthikeyan Pedro MD [Primary Care Provider] - 1-2 days Time of Disposition: 06:39
[2022-07-30] MEDS ORDERED: HYDROmorphone 1 MG/ML 1 ML SYRINGE IVP STA (06:16)
[2022-07-30 06:49] VITALS: BP 112/78; PULSE 75
== END 2022-07-30 06:51 | disposition home or self-care (01) ==
LOC: EC 00:36
DX: R11.2 Nausea with vomiting, unspecified (principal); K21.9 Gastro-esophageal reflux disease without esophagitis; E03.9 Hypothyroidism, unspecified; Z86.718 Personal history of other venous thrombosis and embolism; F32.A Depression, unspecified; Z88.8 Allergy status to other drugs, medicaments and biological substances; Z79.890 Hormone replacement therapy; Z79.899 Other long term (current) drug therapy; Z20.822 Contact with and (suspected) exposure to COVID-19
CPT/HCPCS: 36415; 80053; 83605; 85025; 81001; 87636; 99284; 96374; 96375 ×2; 96361; J2060; J1200; J1170

== ENCOUNTER 2022-08-30 15:09 | Emergency (ER) | payer BC ==
--- NOTE | 2022-08-30 16:41 | ED ---
Abdominal Pain HPI - General Chief Complaint: Abdominal Pain Stated Complaint: feeding tube infection Time Seen by Provider: 08/30/22 16:00 Source: patient Mode of arrival: ambulatory Limitations: no limitations - History of Present Illness Initial Comments: 42-year-old female well known to the emergency department presents today for concern about her feeding tube. She has a history of etiopathic gastroparesis and has a J-tube. Reports that she was recently on Meropenem for an infected port. They removed her port and she was receiving antibiotics through PICC line. She recently finished this antibiotic last week. Over the past bloody she's had pain around her feeding tube site. Reports to some redness and concern for infection. No fevers. No purulent drainage from the site. 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, precipitating or modifying factors - Related Data Home Medications Medication Instructions Recorded Confirmed Montelukast Chew [Singulair chew] 10 mg PO HS 02/02/18 07/28/22 oxyCODONE HCL [oxyCODONE HCL (IR)] 10 mg PO Q8H PRN 04/20/19 07/28/22 Lansoprazole 30 mg PO BID 08/27/19 07/28/22 Levothyroxine Sodium [Synthroid] 100 mcg PO DAILY 10/04/19 07/28/22 SUMAtriptan succinate [Imitrex] 100 mg PO BID PRN 05/20/20 07/28/22 Topiramate [Trokendi Xr] 50 mg PO HS 10/07/20 07/28/22 Cetirizine HCl 10 mg PO DAILY 03/15/22 07/28/22 Hyoscyamine Sulfate [Levsin] 0.125 mg SL QID PRN 03/15/22 07/28/22 Tenapanor HCl [Ibsrela] 50 mg PO BID 03/15/22 07/28/22 FLUoxetine HCL [PROzac] 40 mg PO DAILY 05/21/22 07/28/22 ARIPiprazole [Abilify] 2 mg PO DAILY 07/28/22 07/28/22 Fondaparinux [Arixtra] 7.5 mg SQ HS 07/28/22 07/28/22 Ondansetron Odt [Zofran Odt] 8 mg PO Q8HR PRN 07/28/22 07/28/22 Previous Rx's Medication Instructions Recorded Aspirin 81 mg PO DAILY 30 Days chewable 10/16/19 Allergies Allergy/AdvReac Type Severity Reaction Status Date / Time midazolam [From Versed] Allergy Anaphylaxis Verified 08/30/22 15:36 metoclopramide [From Reglan] AdvReac Mild jittery Verified 08/30/22 15:36 prochlorperazine AdvReac Mild JITTERY Verified 08/30/22 15:36 [From Compazine] Review of Systems ROS Statement: Those systems with pertinent positive or pertinent negative responses have been documented in the HPI. ROS Other: All systems not noted in ROS Statement are negative. Past Medical History Past Medical History: Deep Vein Thrombosis (DVT), GERD/Reflux, Pulmonary Embolus (PE), Thyroid Disorder Additional Past Medical History / Comment(s): Idiopathic gastroparesis, takes little in orally-has J tube for feedings and gastric stimulator- chronic abdominal pain, R pulmonary embolism 5-2017, dvt R upper extremity 2018, pancreatitis once in 2018-thought stone somewhere, hypothyroid, chronic anemia, sinus problems, migraines History of Any Multi-Drug Resistant Organisms: VRE Date of last positivie culture/infection: 08/01/18 MDRO Source:: VRE URINE Past Surgical History: Section, Cholecystectomy, Hernia Repair, Orthopedic Surgery, Tonsillectomy Additional Past Surgical History / Comment(s): Gastric pacer with removal in spring 2017, J tube, gastric stimulator, x3, 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 Mother Family Medical History: No Reported History Additional Family Medical History / Comment(s): Mother is 58yrs old. General Exam Limitations: no limitations General appearance: alert, in no apparent distress Head exam: Present: atraumatic, normocephalic, normal inspection Eye exam: Present: normal appearance, PERRL, EOMI. Absent: scleral icterus, conjunctival injection, periorbital swelling ENT exam: Present: normal exam, mucous membranes moist Neck exam: Present: normal inspection. Absent: tenderness, meningismus, lymphadenopathy Respiratory exam: Present: normal lung sounds bilaterally. Absent: respiratory distress, wheezes, rales, rhonchi, stridor Cardiovascular Exam: Present: regular rate, normal rhythm, normal heart sounds. Absent: systolic murmur, diastolic murmur, rubs, gallop, clicks GI/Abdominal exam: Present: soft, normal bowel sounds, other (G-tube site with surrounding erythema and skin breakdown due to moisture. No signs of cellulitis). Absent: distended, tenderness, guarding, rebound, rigid Extremities exam: Present: normal inspection, full ROM, normal capillary refill. Absent: tenderness, pedal edema, joint swelling, calf tenderness Back exam: Present: normal inspection Neurological exam: Present: alert, oriented X3, CN II-XII intact Psychiatric exam: Present: normal affect, normal mood Skin exam: Present: warm, dry, intact, normal color. Absent: rash Course Vital Signs 08/30/22 08/30/22 15:33 17:00 Temperature 98.1 F 98.2 F Pulse Rate 101 H 72 Respiratory 20 18 Rate Blood Pressure 103/73 122/87 O2 Sat by Pulse 100 97 Oximetry Medical Decision Making - Medical Decision Making Was pt. sent in by a medical professional or institution (FESTUS Ramirez, COURT REGISTRY OFFICER, urgent care, hospital, or senior living...) When possible be specific @ -No Did you speak to anyone other than the patient for history (EMS, parent, family, police, friend...)? What history was obtained from this source @ -No Did you review nursing and triage notes (agree or disagree)? Why? @ -I reviewed and agree with nursing and triage notes Were old charts reviewed (outside hosp., previous admission, EMS record, old EKG, old radiological studies, urgent care reports/EKG's, senior living records)? Report findings @ -No old charts were reviewed Differential Diagnosis (chest pain, altered mental status, abdominal pain women, abdominal pain men, vaginal bleeding, weakness, fever, dyspnea, syncope, headache, dizziness, GI bleed, back pain, seizure, CVA, palpatations, mental health, musculoskeletal)? @ -Cellulitis, skin irritation, feeding tube malfunction EKG interpreted by me (3pts min.). @ -Not done X-rays interpreted by me (1pt min.). @ -None done CT interpreted by me (1pt min.). @ -None done U/S interpreted by me (1pt. min.). @ -None done What testing was considered but not performed or refused? (CT, X-rays, U/S, labs)? Why? @ -None What meds were considered but not given or refused? Why? @ -None Did you discuss the management of the patient with other professionals (professionals i.e. DrBeverly, PA, COURT REGISTRY OFFICER, lab, RT, psych nurse, manager social, rn cvicu, teacher, admissions officer, correctional casework specialist)? Give summary @ -No Was smoking cessation discussed for >3mins.? @ -No Was critical care preformed (if so, how long)? @ -No Were there social determinants of health that impacted care today? How? (Homelessness, low income, unemployed, alcoholism, drug addiction, transportation, low edu. Level, literacy, decrease access to med. care, fci, rehab)? @ -No Was there de-escalation of care discussed even if they declined (Discuss DNR or withdrawal of care, Hospice)? DNR status @ -No What co-morbidities impacted this encounter? (DM, HTN, Smoking, COPD, CAD, Cancer, CVA, ARF, Chemo, Hep., AIDS, mental health diagnosis, sleep apnea, morbid obesity)? @ -Idiopathic gastroparesis with feeding tube placement Was patient admitted / discharged? Hospital course, mention meds given and route, prescriptions, significant lab abnormalities, going to OR and other pertinent info. @ - Upon arrival patient was placed in room 7. There are history and physical exam was performed. No drainage from the site. Mild surrounding redness that appears consistent with localized irritation. No cellulitic findings. Some chronic breakdown of the skin. Recommended frequent dressing changes with a barrier cream. Barrier cream is applied. I did dress the site. Patient will follow up with her primary care doctor in a couple of days to have the site reevaluated and return for any new or worsening symptoms. Patient agreeable to plan she was discharged home in stable condition Undiagnosed new problem with uncertain prognosis? @ -No Drug Therapy requiring intensive monitoring for toxicity (Heparin, Nitro, Insulin, Cardizem)? @ -No Were any procedures done? @ -No Diagnosis/symptom? @ -Acute skin breakdown surrounding feeding tube Acute, or Chronic, or Acute on Chronic? @ Acute on chronic Uncomplicated (without systemic symptoms) or Complicated (systemic symptoms)? @ -Uncomplicated Side effects of treatment? @ -No Exacerbation, Progression, or Severe Exacerbation? @ -No Poses a threat to life or bodily function? How? (Chest pain, [place], [place], pneumonia, PE, COPD, DKA, ARF, appy, cholecystitis, CVA, Diverticulitis, Homicidal, Suicidal, threat to staff... and all critical care pts) @ -No - EKG Data EKG Comments: Please keep the area clean and dry. Use the barrier cream 4 times a day. Follow up with her doctor for recheck of the area Disposition Clinical Impression: Feeding tube dysfunction Disposition: HOME SELF-CARE Condition: Stable Is patient prescribed a controlled substance at d/c from ED?: No Referrals: Karthikeyan Pedro MD [Primary Care Provider] - 1-2 days Time of Disposition: 16:41
[2022-08-30 17:01] VITALS: BP 122/87; PULSE 72; RESP 18; TEMP 98.2
== END 2022-08-30 17:01 | disposition home or self-care (01) ==
LOC: EC 15:09
DX: R63.30 Feeding difficulties, unspecified (principal); F32.A Depression, unspecified; E03.9 Hypothyroidism, unspecified; K21.9 Gastro-esophageal reflux disease without esophagitis; Z79.82 Long term (current) use of aspirin; Z79.890 Hormone replacement therapy; Z79.899 Other long term (current) drug therapy; Z88.8 Allergy status to other drugs, medicaments and biological substances
CPT/HCPCS: 99283

== ENCOUNTER 2022-09-07 14:02 | Emergency (ER) | payer BC ==
[2022-09-07 14:31] VITALS: TEMP 98.6
[2022-09-07] MEDS ORDERED: SODIUM CHLORIDE 0.9% 1,000 ML IV STA ×2 (14:48→17:55)
[2022-09-07] MEDS ORDERED: ONDANSETRON 4 MG/2 ML VIAL IVP STA ×2 (14:56→17:55)
[2022-09-07] MEDS ORDERED: diphenhydrAMINE 50 MG/ML 1 ML VIAL IVP STA ×2 (14:56→19:36)
--- NOTE | 2022-09-07 15:01 | ED ---
Abdominal Pain HPI <Christal Mckeon - Last Filed: 09/07/22 16:10> - General Source: patient Mode of arrival: ambulatory Limitations: no limitations <Yimi Esquivel - Last Filed: 09/07/22 16:11> <Jian Mckeon - Last Filed: 09/07/22 23:50> - General Chief Complaint: Abdominal Pain Stated Complaint: vomiting Time Seen by Provider: 09/07/22 14:36 - History of Present Illness Initial Comments: 42-year-old female with past medical history significant for gastroparesis and J-tube placement presents to the ED with a chief complaint of N/V/abdominal pain. Patient states for the past 5 days has had nausea, vomiting, and diffuse abdominal pain. Patient states symptoms are consistent with history of prior. Last bowel movement yesterday which was normal in consistency. No other complaints. (Yimi Esquivel) - Related Data Home Medications Medication Instructions Recorded Confirmed Montelukast Chew [Singulair chew] 10 mg PO HS 02/02/18 07/28/22 oxyCODONE HCL [oxyCODONE HCL (IR)] 10 mg PO Q8H PRN 04/20/19 07/28/22 Lansoprazole 30 mg PO BID 08/27/19 07/28/22 Levothyroxine Sodium [Synthroid] 100 mcg PO DAILY 10/04/19 07/28/22 SUMAtriptan succinate [Imitrex] 100 mg PO BID PRN 05/20/20 07/28/22 Topiramate [Trokendi Xr] 50 mg PO HS 10/07/20 07/28/22 Cetirizine HCl 10 mg PO DAILY 03/15/22 07/28/22 Hyoscyamine Sulfate [Levsin] 0.125 mg SL QID PRN 03/15/22 07/28/22 Tenapanor HCl [Ibsrela] 50 mg PO BID 03/15/22 07/28/22 FLUoxetine HCL [PROzac] 40 mg PO DAILY 05/21/22 07/28/22 ARIPiprazole [Abilify] 2 mg PO DAILY 07/28/22 07/28/22 Fondaparinux [Arixtra] 7.5 mg SQ HS 07/28/22 07/28/22 Ondansetron Odt [Zofran Odt] 8 mg PO Q8HR PRN 07/28/22 07/28/22 Previous Rx's Medication Instructions Recorded Aspirin 81 mg PO DAILY 30 Days chewable 10/16/19 Allergies Allergy/AdvReac Type Severity Reaction Status Date / Time midazolam [From Versed] Allergy Anaphylaxis Verified 09/07/22 14:31 metoclopramide [From Reglan] AdvReac Mild jittery Verified 09/07/22 14:31 prochlorperazine AdvReac Mild JITTERY Verified 09/07/22 14:31 [From Compazine] ketorolac [From Toradol] AdvReac Abdominal Verified 09/07/22 16:53 Pain Review of Systems ROS Other: All systems not noted in ROS Statement are negative. <Christal Mckeon - Last Filed: 09/07/22 16:10> ROS Other: All systems not noted in ROS Statement are negative. <Yimi Esquivel - Last Filed: 09/07/22 16:11> ROS Other: All systems not noted in ROS Statement are negative. <Jian Mckeon - Last Filed: 09/07/22 23:50> ROS Statement: Those systems with pertinent positive or pertinent negative responses have been documented in the HPI. Past Medical History Past Medical History: Deep Vein Thrombosis (DVT), GERD/Reflux, Pulmonary Embolus (PE), Thyroid Disorder Additional Past Medical History / Comment(s): Idiopathic gastroparesis, takes little in orally-has J tube for feedings and gastric stimulator- chronic abdominal pain, R pulmonary embolism 5-2017, dvt R upper extremity 2018, pancreatitis once in 2017-thought stone somewhere, hypothyroid, chronic anemia, sinus problems, migraines History of Any Multi-Drug Resistant Organisms: VRE Date of last positivie culture/infection: 08/01/18 MDRO Source:: VRE URINE Past Surgical History: Section, Cholecystectomy, Hernia Repair, Orthopedic Surgery, Tonsillectomy Additional Past Surgical History / Comment(s): Gastric pacer with removal in spring 2017, J tube, gastric stimulator, x3, 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 Mother Family Medical History: No Reported History Additional Family Medical History / Comment(s): Mother is 58yrs old. <Yimi Esquivel - Last Filed: 09/07/22 16:11> General Exam Limitations: no limitations GI/Abdominal exam: Present: soft (She is tenderness to palpation. No focal tenderness to palpation. J-tube in place with minimal surrounding erythema. No warmth. No purulent drainage. Barrier cream noted.), normal bowel sounds Extremities exam: Present: normal inspection Neurological exam: Present: alert, oriented X3 Psychiatric exam: Present: normal affect, normal mood Skin exam: Present: warm, dry <Yimi Esquivel - Last Filed: 09/07/22 16:11> Course Vital Signs 09/07/22 09/07/22 14:26 19:29 Temperature 98.6 F Pulse Rate 85 89 Respiratory 20 18 Rate Blood Pressure 124/84 144/79 O2 Sat by Pulse 100 98 Oximetry Procedures - EJ/Peripheral Line No standard instances Consent Obtained: verbal consent Indications: nurses unable to establish peripheral IV Size: 20 (right external jugular) Dressing Placed: Tegaderm Patient Tolerated Procedure: well, no complications <Christal Mckeon - Last Filed: 09/07/22 16:10> - EJ/Peripheral Line No standard instances Additional Comments: Hilda was called to eat and IV placement for the patient. External jugular IV site clean dry and intact. Symmetric the Tegaderm. Flushed with 10 mL of saline. Patient tolerated well. No complications (Christal Mckeon) Medical Decision Making <Yimi Esquivel - Last Filed: 09/07/22 16:11> - Lab Data Result diagrams: 09/07/22 15:57 09/07/22 15:57 <Jian Mckeon - Last Filed: 09/07/22 23:50> - Medical Decision Making Was pt. sent in by a medical professional or institution (, PA, W[employer]CH[employer]IC, urgent care, hospital, or residential...) When possible be specific @ -No Did you speak to anyone other than the patient for history (EMS, parent, family, police, friend...)? What history was obtained from this source @ -No Did you review nursing and triage notes (agree or disagree)? Why? @ -I reviewed and agree with nursing and triage notes Were old charts reviewed (outside hosp., previous admission, EMS record, old EKG, old radiological studies, urgent care reports/EKG's, residential records)? Report findings @ -I reviewed prior charts showing history of similar in the past and recent placement of J tube. Differential Diagnosis (chest pain, altered mental status, abdominal pain women, abdominal pain men, vaginal bleeding, weakness, fever, dyspnea, syncope, headach e, dizziness, GI bleed, back pain, seizure, CVA, palpatations, mental health, musculoskeletal)? @ -Differential Abdominal Pain Women: Appendicitis, Cholecystitis, diverticulosis, ischemic bowel, pancreatitis, hepatitis, UTI, gastroenteritis, AAA, incarcerated hernia, bowel obstruction, constipation, inflammatory bowel, hepatitis, peptic ulcer disease, splenic infarction, perforated viscus, vulvitis, ovarian torsion, PID, kidney stone, placenta abruption, this is not meant to be an all-inclusive list EKG interpreted by me (3pts min.). @ -As above X-rays interpreted by me (1pt min.). @ -None done CT interpreted by me (1pt min.). @ -None done U/S interpreted by me (1pt. min.). @ -None done What testing was considered but not performed or refused? (CT, X-rays, U/S, labs)? Why? @ -None What meds were considered but not given or refused? Why? @ -None Did you discuss the management of the patient with other professionals (prof harmon i.e. , PA, [employer]IC, lab, RT, psych nurse, social science instructor, ammonia still operator, teacher, president and chief commercial officer, case work aide)? Give summary @ -No Was smoking cessation discussed for >3mins.? @ -No Was critical care preformed (if so, how long)? @ -No Were there social determinants of health that impacted care today? How? (Homelessness, low income, unemployed, alcoholism, drug addiction, transportat ion, low edu. Level, literacy, decrease access to med. care, detention, rehab)? @ -No Was there de-escalation of care discussed even if they declined (Discuss DNR or withdrawal of care, Hospice)? DNR status @ -No What co-morbidities impacted this encounter? (DM, HTN, Smoking, COPD, CAD, Cancer, CVA, ARF, Chemo, Hep., AIDS, mental health diagnosis, sleep apnea, morbid obesity)? @ -None Was patient admitted / discharged? Hospital course, mention meds given and route, prescriptions, significant lab abnormalities, going to OR and other pertinent info. @ - (Yimi Esquivel) this 42-year-old female initially presented with nausea, vomiting, and diffuse abdominal pain. She has had multiple previous similar incidents apparently related to severe gastroparesis. She initially was seen by the physician pharmacy sales assistant and further care was taken over by myself. The laboratory does not show any acute significant abnormalities. The patient was thoroughly hydrated. She refused Toradol and then stated that this is an ALLERGY. She also requested Phenergan but this does not come parenterally so rectal Phenergan is ordered but she refused this as well. She is requesting narcotic medication as this is the only thing that works for her. She is given morphine 4 mg IV. She also was given intravenous Benadryl. It is felt as though she stable for discharge home. She did receive Zofran on 2 occasions. 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 Return parameters are discussed. Close follow-up recommended. (Jian Mckeon) - Lab Data Lab Results 09/07/22 09/07/22 Range/Units 15:57 15:57 WBC 5.5 (3.8-10.6) k/uL RBC 4.49 (3.80-5.40) m/uL Hgb 12.8 (11.4-16.0) gm/dL Hct 37.9 (34.0-46.0) % MCV 84.4 (80.0-100.0) fL MCH 28.6 (25.0-35.0) pg MCHC 33.9 (31.0-37.0) g/dL RDW 14.3 (11.5-15.5) % Plt Count 263 (150-450) k/uL MPV 8.0 Neutrophils % 63 % Lymphocytes % 27 % Monocytes % 6 % Eosinophils % 2 % Basophils % 1 % Neutrophils # 3.5 (1.3-7.7) k/uL Lymphocytes # 1.5 (1.0-4.8) k/uL Monocytes # 0.3 (0-1.0) k/uL Eosinophils # 0.1 (0-0.7) k/uL Basophils # 0.0 (0-0.2) k/uL Sodium 142 (137-145) mmol/L Potassium 3.8 (3.5-5.1) mmol/L Chloride 110 H (98-107) mmol/L Carbon Dioxide 20 L (22-30) mmol/L Anion Gap 12 mmol/L BUN 6 L (7-17) mg/dL Creatinine 0.72 (0.52-1.04) mg/dL Est GFR (CKD-EPI)AfAm >90 (>60 ml/min/1.73 sqM) Est GFR (CKD-EPI)NonAf >90 (>60 ml/min/1.73 sqM) Glucose 83 (74-99) mg/dL Calcium 9.1 (8.4-10.2) mg/dL Total Bilirubin 0.3 (0.2-1.3) mg/dL AST 25 (14-36) U/L ALT 35 H (4-34) U/L Alkaline Phosphatase 146 H (38-126) U/L Total Protein 6.6 (6.3-8.2) g/dL Albumin 3.8 (3.5-5.0) g/dL Amylase 86 (30-110) U/L Lipase 46 (23-300) U/L Disposition <Christal Mckeon - Last Filed: 09/07/22 16:10> <Yimi Esquivel - Last Filed: 09/07/22 16:11> Is patient prescribed a controlled substance at d/c from ED?: No Time of Disposition: 18:24 <Jian Mckeon - Last Filed: 09/07/22 23:50> Clinical Impression: Abdominal pain, Gastroparesis, Nausea and vomiting, Dehydration Disposition: HOME SELF-CARE Condition: Good Instructions (If sedation given, give patient instructions): Acute Nausea and Vomiting (ED), Abdominal Pain (ED), Gastroparesis (ED) Referrals: Karthikeyan Pedro MD [Primary Care Provider] - 1-2 days
[2022-09-07 16:17] LABS: Basophils % (A) 1 %; Eosinophils # (A) 0.1 k/uL (0-0.7); Eosinophils % (A) 2 %; HCT 37.9 % (34.0-46.0); HGB 12.8 gm/dL (11.4-16.0); Lymphocytes # (A) 1.5 k/uL (1.0-4.8); Lymphocytes % (A) 27 %; MCH 28.6 pg (25.0-35.0); MCHC 33.9 g/dL (31.0-37.0); MCV 84.4 fL (80.0-100.0); Monocytes # (A) 0.3 k/uL (0-1.0); Monocytes % (A) 6 %; Neutrophils # (A) 3.5 k/uL (1.3-7.7); Neutrophils % (A) 63 %; Platelet Count 263 k/uL (150-450); RBC 4.49 m/uL (3.80-5.40); RDW 14.3 % (11.5-15.5); WBC 5.5 k/uL (3.8-10.6)
[2022-09-07 16:20] LABS: ALT 35 U/L (4-34); AST 25 U/L (14-36); African American GFR (CKD) >90 (>60 ml/min/1.73 sqM); Albumin 3.8 g/dL (3.5-5.0); Alkaline Phosphatase 146 U/L (38-126); Amylase 86 U/L (30-110); Anion Gap 12 mmol/L; Blood Urea Nitrogen 6 mg/dL (7-17); Calcium 9.1 mg/dL (8.4-10.2); Carbon Dioxide 20 mmol/L (22-30); Chloride 110 mmol/L (98-107); Glucose 83 mg/dL (74-99); Lipase 46 U/L (23-300); Non-African American GFR(CKD) >90 (>60 ml/min/1.73 sqM); Potassium 3.8 mmol/L (3.5-5.1); Sodium 142 mmol/L (137-145); Total Bilirubin 0.3 mg/dL (0.2-1.3); Total Protein 6.6 g/dL (6.3-8.2)
[2022-09-07] MEDS ORDERED: PROMETHAZINE SUPPOSITORY 25 MG SUPP RECTAL STA (16:52)
[2022-09-07] MEDS ORDERED: MORPHINE SULFATE 4 MG/ML SYRINGE IV STA (17:55)
[2022-09-07 19:34] VITALS: BP 144/79; PULSE 89; RESP 18
== END 2022-09-07 19:46 | disposition home or self-care (01) ==
LOC: EC 14:02
DX: K31.84 Gastroparesis (principal); R11.2 Nausea with vomiting, unspecified; E86.0 Dehydration; E03.9 Hypothyroidism, unspecified; K21.9 Gastro-esophageal reflux disease without esophagitis; F32.A Depression, unspecified; Z79.890 Hormone replacement therapy; Z79.899 Other long term (current) drug therapy; Z88.8 Allergy status to other drugs, medicaments and biological substances; Z88.6 Allergy status to analgesic agent; Z86.711 Personal history of pulmonary embolism
CPT/HCPCS: 80053; 82150; 83690; 85025; 99284; 96374; 96375 ×2; 96376 ×2; 96361 ×2; J2270; J1200; J2405; 36415

== ENCOUNTER 2022-09-08 18:50 | Observation (INO) | payer BC ==
[2022-09-08] MEDS ORDERED: SODIUM CHLORIDE 0.9% 1,000 ML IV STA (19:06)
--- NOTE | 2022-09-08 19:08 | ED ---
Overdose HPI - General Chief Complaint: Overdose Stated Complaint: overdose Time Seen by Provider: 09/08/22 19:05 Source: patient, RN notes reviewed, old records reviewed Mode of arrival: ambulatory Limitations: no limitations - History of Present Illness Initial Comments: This is a 6-year-old female DF. She presents today for evaluation regards to suicide attempt. Patient is known to facility for abdominal pain some chronic pain issues and multiple biliary issues. Patient was in the hospital yesterday menstrual history of sore psychiatrist yesterday and took overdose today. Patient took somewhere around 30 lisinopril. Denies any other overdose taking. No travel history no sick contacts no other complaints MD Complaint: intentional overdose, other (Suicide attempt by overdose chronic pain nausea vomiting) -: hour(s) Intent: suicide attempt, want to go to sleep How Overdose Was Discovered: family/friend present at time Context: Intentional Overdose: drug/ETOH problems, other (Medical problems) Associated Symptoms: depression Treatments Prior to Arrival: none - Related Data Home Medications Medication Instructions Recorded Confirmed Lansoprazole 30 mg PO BID 08/27/19 09/08/22 Levothyroxine Sodium [Synthroid] 100 mcg PO DAILY 10/04/19 09/08/22 SUMAtriptan succinate [Imitrex] 100 mg PO BID PRN 05/20/20 09/08/22 Topiramate [Trokendi Xr] 50 mg PO HS 10/07/20 09/08/22 Cetirizine HCl 10 mg PO DAILY 03/15/22 09/08/22 Hyoscyamine Sulfate [Levsin] 0.125 mg SL QID PRN 03/15/22 09/08/22 Tenapanor HCl [Ibsrela] 50 mg PO BID 03/15/22 09/08/22 FLUoxetine HCL [PROzac] 40 mg PO DAILY 05/21/22 09/08/22 Fondaparinux [Arixtra] 7.5 mg SQ HS 07/28/22 09/08/22 Ondansetron Odt [Zofran Odt] 8 mg PO Q8HR PRN 07/28/22 09/08/22 Promethazine HCl 12.5 mg PO Q6H PRN 09/08/22 09/08/22 Promethazine HCl 25 mg PO Q6H PRN 09/08/22 09/08/22 oxyCODONE HCL [oxyCODONE HCL (IR)] 15 mg PO Q8H PRN 09/08/22 09/08/22 Previous Rx's Medication Instructions Recorded Aspirin 81 mg PO DAILY 30 Days chewable 10/16/19 Allergies Allergy/AdvReac Type Severity Reaction Status Date / Time midazolam [From Versed] Allergy Anaphylaxis Verified 09/08/22 20:33 metoclopramide [From Reglan] AdvReac Mild jittery Verified 09/08/22 20:33 prochlorperazine AdvReac Mild JITTERY Verified 09/08/22 20:33 [From Compazine] ketorolac [From Toradol] AdvReac Abdominal Verified 09/08/22 20:33 Pain Review of Systems ROS Statement: Those systems with pertinent positive or pertinent negative responses have been documented in the HPI. ROS Other: All systems not noted in ROS Statement are negative. Past Medical History Past Medical History: Deep Vein Thrombosis (DVT), GERD/Reflux, Pulmonary Embolus (PE), Thyroid Disorder Additional Past Medical History / Comment(s): Idiopathic gastroparesis, takes little in orally-has J tube for feedings and gastric stimulator- chronic abdominal pain, R pulmonary embolism -2017, dvt R upper extremity 2018, pancreatitis once in 2018-thought stone somewhere, hypothyroid, chronic anemia, sinus problems, migraines History of Any Multi-Drug Resistant Organisms: VRE Date of last positivie culture/infection: 08/01/18 MDRO Source:: VRE URINE Past Surgical History: Section, Cholecystectomy, Hernia Repair, Orthopedic Surgery, Tonsillectomy Additional Past Surgical History / Comment(s): Gastric pacer with removal in spring 2017, J tube, gastric stimulator, x3, 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 Mother Family Medical History: No Reported History Additional Family Medical History / Comment(s): Mother is 58yrs old. General Exam Limitations: no limitations General appearance: alert, in no apparent distress Head exam: Present: atraumatic, normocephalic, normal inspection Eye exam: Present: normal appearance, PERRL, EOMI. Absent: scleral icterus, conjunctival injection, periorbital swelling ENT exam: Present: normal exam, mucous membranes moist Neck exam: Present: normal inspection. Absent: tenderness, meningismus, lymphadenopathy Respiratory exam: Present: normal lung sounds bilaterally. Absent: respiratory distress, wheezes, rales, rhonchi, stridor Cardiovascular Exam: Present: regular rate, normal rhythm, normal heart sounds. Absent: systolic murmur, diastolic murmur, rubs, gallop, clicks GI/Abdominal exam: Present: soft, normal bowel sounds. Absent: distended, tenderness, guarding, rebound, rigid Extremities exam: Present: normal inspection, full ROM, normal capillary refill. Absent: tenderness, pedal edema, joint swelling, calf tenderness Back exam: Present: normal inspection Neurological exam: Present: alert, oriented X3, CN II-XII intact Psychiatric exam: Present: normal affect, normal mood Skin exam: Present: warm, dry, intact, normal color. Absent: rash Course Vital Signs 09/08/22 09/08/22 09/08/22 18:54 19:40 20:00 Temperature 98.0 F Pulse Rate 101 H 66 66 Respiratory 20 16 20 Rate Blood Pressure 149/112 129/93 123/87 O2 Sat by Pulse 100 94 L 100 Oximetry - Reevaluation(s) Reevaluation #1: 09/08/22 23:07 Medical record is reviewed Reevaluation #2: 09/08/22 23:07 Patient has no change in symptoms here in the ER Reevaluation #3: 09/08/22 23:07 Patient informed results questions answered Reevaluation #4: 09/08/22 23:07 Was pt. sent in by a medical professional or institution? @ -no Did you speak to anyone other than the patient for history? @ -no Did you review nursing and triage notes? @ -agree Were old charts reviewed? @ -no Differential Diagnosis? @ -prior EKG interpreted by me (3pts min.)? @ -yes X-rays interpreted by me (1pt min.)? @ -yes CT interpreted by me (1pt min.)? @ -no U/S interpreted by me (1pt. min.)? @ -no What testing was considered but not performed? (CT, X-rays, U/S, labs)? Why? @ -no What meds were considered but not given? Why? @ -no Did you discuss the management of the patient with other professionals? @ -no Did you reconcile home meds? @ -no Was smoking cessation discussed for >3mins.? @ -no Was critical care preformed (if so, how long)? @ -no Were there social determinants of health that impacted care today? How? (Homelessness, low income, unemployed, alcoholism, drug addiction, transporta tion, low edu. Level, literacy, decrease access to med. care, long-term, rehab)? @ -no Was there de-escalation of care discussed even if they declined? (Discuss DNR or withdrawal of care, Hospice)? @ -no What co-morbidities impacted this encounter? (DM, HTN, Smoking, COPD, CAD, Cancer, CVA, Hep., AIDS, mental health diagnosis, sleep apnea, morbid obesity)? @ -none Was patient admitted / discharged? @ - Undiagnosed new problem with uncertain prognosis? @ -no Drug Therapy requiring intensive monitoring for toxicity (Heparin, Nitro, Insulin, Cardizem)? @ -no Were any procedures done? @ -no Diagnosis/symptom? @ - Acute, or Chronic, or Acute on Chronic? @ -no Uncomplicated (without systemic symptoms) or Complicated (systemic symptoms)? @ -uncomplicated Side effects of treatment? @ -no Exacerbation, Progression, or Severe Exacerbation] @ -no Poses a threat to life or bodily function? @ -yes Medical Decision Making - Medical Decision Making Auty female DF for evaluation of overdose, CRESCENCIO inhibitor overdose, lisinopril. Patient will be admitted for further monitoring and monitoring of electrolytes. - Lab Data Result diagrams: 09/08/22 19:20 09/08/22 19:20 Lab Results 09/08/22 09/08/22 09/08/22 Range/Units 19: 19: 19:20 WBC 6.6 (3.8-10.6) k/uL RBC 4.59 (3.80-5.40) m/uL Hgb 13.3 (11.4-16.0) gm/dL Hct 38.8 (34.0-46.0) % MCV 84.6 (80.0-100.0) fL MCH 28.9 (25.0-35.0) pg MCHC 34.2 (31.0-37.0) g/dL RDW 13.8 (11.5-15.5) % Plt Count 368 (150-450) k/uL MPV 6.9 Neutrophils % 58 % Lymphocytes % 31 % Monocytes % 6 % Eosinophils % 3 % Basophils % 1 % Neutrophils # 3.8 (1.3-7.7) k/uL Lymphocytes # 2.0 (1.0-4.8) k/uL Monocytes # 0.4 (0-1.0) k/uL Eosinophils # 0.2 (0-0.7) k/uL Basophils # 0.1 (0-0.2) k/uL Sodium (137-145) mmol/L Potassium (3.5-5.1) mmol/L Chloride (98-107) mmol/L Carbon Dioxide (22-30) mmol/L Anion Gap mmol/L BUN (7-17) mg/dL Creatinine (0.52-1.04) mg/dL Est GFR (CKD-EPI)AfAm (>60 ml/min/1.73 sqM) Est GFR (CKD-EPI)NonAf (>60 ml/min/1.73 sqM) Glucose (74-99) mg/dL Calcium (8.4-10.2) mg/dL Total Bilirubin (0.2-1.3) mg/dL AST (14-36) U/L ALT (4-34) U/L Alkaline Phosphatase (38-126) U/L Troponin I (0.000-0.034) ng/mL Total Protein (6.3-8.2) g/dL Albumin (3.5-5.0) g/dL Lipase (23-300) U/L Urine HCG, Qual Not Detected (Not Detectd) Salicylates mg/dL Urine Opiates Screen Detected H (NotDetected) Ur Oxycodone Screen Not Detected (NotDetected) Urine Methadone Screen Not Detected (NotDetected) Ur Propoxyphene Screen Not Detected (NotDetected) Acetaminophen ug/mL Ur Barbiturates Screen Not Detected (NotDetected) U Tricyclic Antidepress Not Detected (NotDetected) Ur Phencyclidine Scrn Not Detected (NotDetected) Ur Amphetamines Screen Detected H (NotDetected) U Methamphetamines Scrn Not Detected (NotDetected) U Benzodiazepines Scrn Detected H (NotDetected) Urine Cocaine Screen Not Detected (NotDetected) U Marijuana (THC) Screen Not Detected (NotDetected) Serum Alcohol mg/dL 09/08/22 09/08/22 Range/Units 19:20 19:20 WBC (3.8-10.6) k/uL RBC (3.80-5.40) m/uL Hgb (11.4-16.0) gm/dL Hct (34.0-46.0) % MCV (80.0-100.0) fL MCH (25.0-35.0) pg MCHC (31.0-37.0) g/dL RDW (11.5-15.5) % Plt Count (150-450) k/uL MPV Neutrophils % % Lymphocytes % % Monocytes % % Eosinophils % % Basophils % % Neutrophils # (1.3-7.7) k/uL Lymphocytes # (1.0-4.8) k/uL Monocytes # (0-1.0) k/uL Eosinophils # (0-0.7) k/uL Basophils # (0-0.2) k/uL Sodium 142 (137-145) mmol/L Potassium 3.4 L (3.5-5.1) mmol/L Chloride 106 (98-107) mmol/L Carbon Dioxide 27 (22-30) mmol/L Anion Gap 9 mmol/L BUN 7 (7-17) mg/dL Creatinine 0.78 (0.52-1.04) mg/dL Est GFR (CKD-EPI)AfAm >90 (>60 ml/min/1.73 sqM) Est GFR (CKD-EPI)NonAf >90 (>60 ml/min/1.73 sqM) Glucose 90 (74-99) mg/dL Calcium 9.8 (8.4-10.2) mg/dL Total Bilirubin 0.2 (0.2-1.3) mg/dL AST 21 (14-36) U/L ALT 31 (4-34) U/L Alkaline Phosphatase 161 H (38-126) U/L Troponin I <0.012 (0.000-0.034) ng/mL Total Protein 6.6 (6.3-8.2) g/dL Albumin 4.1 (3.5-5.0) g/dL Lipase 46 (23-300) U/L Urine HCG, Qual (Not Detectd) Salicylates <1.0 mg/dL Urine Opiates Screen (NotDetected) Ur Oxycodone Screen (NotDetected) Urine Methadone Screen (NotDetected) Ur Propoxyphene Screen (NotDetected) Acetaminophen <10.0 ug/mL Ur Barbiturates Screen (NotDetected) U Tricyclic Antidepress (NotDetected) Ur Phencyclidine Scrn (NotDetected) Ur Amphetamines Screen (NotDetected) U Methamphetamines Scrn (NotDetected) U Benzodiazepines Scrn (NotDetected) Urine Cocaine Screen (NotDetected) U Marijuana (THC) Screen (NotDetected) Serum Alcohol <10 mg/dL - EKG Data -: EKG Interpreted by Me (EKG is sinus 77 [place] 140 QRS 86 QTc 413) Disposition Clinical Impression: Drug overdose, Suicide attempt by multiple drug overdose, Nausea & vomiting, Intractable vomiting, Abdominal pain, Dehydration Disposition: ADMITTED IP TO THIS [facility] Condition: Serious Is patient prescribed a controlled substance at d/c from ED?: No Time of Disposition: 21:45
[2022-09-08 19:34] LABS: Basophils # (A) 0.1 k/uL (0-0.2); Basophils % (A) 1 %; Eosinophils # (A) 0.2 k/uL (0-0.7); Eosinophils % (A) 3 %; HCT 38.8 % (34.0-46.0); HGB 13.3 gm/dL (11.4-16.0); Lymphocytes % (A) 31 %; MCH 28.9 pg (25.0-35.0); MCHC 34.2 g/dL (31.0-37.0); MCV 84.6 fL (80.0-100.0); Mean Platelet Volume 6.9; Monocytes # (A) 0.4 k/uL (0-1.0); Monocytes % (A) 6 %; Neutrophils # (A) 3.8 k/uL (1.3-7.7); Neutrophils % (A) 58 %; Platelet Count 368 k/uL (150-450); RBC 4.59 m/uL (3.80-5.40); RDW 13.8 % (11.5-15.5); WBC 6.6 k/uL (3.8-10.6)
[2022-09-08 19:43] LABS: ALT 31 U/L (4-34); AST 21 U/L (14-36); Acetaminophen <10.0 ug/mL; African American GFR (CKD) >90 (>60 ml/min/1.73 sqM); Albumin 4.1 g/dL (3.5-5.0); Alcohol <10 mg/dL; Alkaline Phosphatase 161 U/L (38-126); Anion Gap 9 mmol/L; Blood Urea Nitrogen 7 mg/dL (7-17); Calcium 9.8 mg/dL (8.4-10.2); Carbon Dioxide 27 mmol/L (22-30); Chloride 106 mmol/L (98-107); Glucose 90 mg/dL (74-99); Lipase 46 U/L (23-300); Non-African American GFR(CKD) >90 (>60 ml/min/1.73 sqM); Potassium 3.4 mmol/L (3.5-5.1); Salicylate <1.0 mg/dL; Sodium 142 mmol/L (137-145); Total Bilirubin 0.2 mg/dL (0.2-1.3); Total Protein 6.6 g/dL (6.3-8.2)
[2022-09-08] MEDS ORDERED: PROCHLORPERAZINE INJ 10 MG/2 ML VIAL IVP STA (20:01)
[2022-09-08] MEDS ORDERED: HYDROmorphone 1 MG/ML 1 ML SYRINGE IVP STA (20:01)
[2022-09-08] MEDS ORDERED: POTASSIUM CHLORIDE 20 MEQ in WATER FOR INJECTION 1 100ML.BAG IVPB STA (20:03)
[2022-09-08 20:46] LABS: Amphetamine Screen,Urine Detected (NotDetected); Barbiturate Screen,Urine Not Detected (NotDetected); Benzodiazepines Screen,Urine Detected (NotDetected); Cocaine Screen,Urine Not Detected (NotDetected); Methadone Screen, Urine Not Detected (NotDetected); Opiate Screen,Urine Detected (NotDetected); Oxycodone Screen, Urine Not Detected (NotDetected); Phencyclidine Screen,Urine Not Detected (NotDetected); Tricyclic Antidepressant,Urine Not Detected (NotDetected); Urn Cannabinoid Scrn Not Detected (NotDetected)
[2022-09-08] MEDS ORDERED: LORazepam 2 MG/ML INJ IV STA (21:29)
[2022-09-08] MEDS ORDERED: droPERidol 5 MG/2 ML VIAL IVP ONE (21:29)
[2022-09-08] MEDS ORDERED: diphenhydrAMINE 50 MG/ML 1 ML VIAL IVP STA (21:29)
[2022-09-08] MEDS ORDERED: NALOXONE 0.4 MG/ML 1 ML VIAL IV PRN (21:41)
[2022-09-08] MEDS: SODIUM CHLORIDE 0.9% 1,000 ML IV SCH (22:10)
[2022-09-08 22:38] LABS: INR 1.1 (<1.2)
--- NOTE | 2022-09-09 04:26 | P.HPIM ---
History of Present Illness H&P Date: 09/08/22 The patient is a 42-year-old female with a PMH of DVTs and PEs, idiopathic gastroparesis status post gastric stimulator, hypothyroidism, and GERD who presents to the emergency room after an intentional overdose. The patient reports that she had been feeling down about her life due to her multiple m edical conditions and took handfuls of her 's old lisinopril and hydrochlorothiazide tablets at around 4 PM earlier tonight. She reports feeling at her baseline at the time of interview. Reports that she feels it was a mistake and that she does not wish to hurt herself. She denied any additional complaints. She denied experiencing chest discomfort, shortness of breath, fever, chills, cough, nausea, vomiting, abdominal pain, diarrhea. In the emergency room, EKG revealed sinus rhythm at [address]/T-wave inversions noted as reviewed by me. Laboratory evaluation was remarkable for potassium 3.4, with urine toxicology positive for opiates, amphetamines, and benzodiazepines, with alkaline phosphatase 161 and troponin less than 0.012. ED documentation reviewed and case discussed with ED provider. Review of systems: Pertinent positives and negatives as discussed in HPI, a complete review of systems was performed and all other systems are negative. Physical examination: Vital signs reviewed General: non toxic, no distress, appears at stated age, overweight Derm: no unusual rashes/lesions, warm Head: atraumatic, normocephalic, symmetric Eyes: EOMI, no lid lag, anicteric sclera, pupils equal round reactive to light ENT: Nose and ears atraumatic Neck: No cervical lymphadenopathy, trachea midline, supple Mouth: no lip lesion, mucus membranes moist Cardiovascular: S1S2 reg, no murmur, positive dorsalis pedis pulse bilateral, no edema Lungs: CTA bilateral, no rhonchi, no rales, no accessory muscle use Abdominal: soft, nontender to palpation, no guarding Ext: muscle strength 5 out of 5 in all 4 extremities grossly, no gross muscle atrophy, no contractures, Neuro: CN II-XI grossly intact, no gross focal neuro deficits Psych: Alert, oriented, appropriate affect Assessment: Intentional overdose on lisinopril and hydrochlorothiazide unknown dosage and amount Depression with suicidal ideation Hypokalemia History of DVT and PE Chronic conditions: Idiopathic gastroparesis, hypothyroidism Imaging: In the emergency room, EKG revealed sinus rhythm at [address]/T-wave inversions noted as reviewed by me. Data Review: Laboratory evaluation was remarkable for potassium 3.4, with urine toxicology positive for opiates, amphetamines, and benzodiazepines, with alkaline phospha tase 161 and troponin less than 0.012. Plan: Case was discussed with poison control by ED physician who recommended overnight monitoring inpatient Psychiatry consult Suicide precautions Monitor BMP DVT prophylaxis: Heparin subcu The patient is admitted with an anticipated less than 2 midnight stay for evaluation of overdose CODE STATUS: Full Code Discussed with: Patient Anticipated discharge place: Home Past Medical History Past Medical History: Deep Vein Thrombosis (DVT), GERD/Reflux, Pulmonary Embolus (PE), Thyroid Disorder Additional Past Medical History / Comment(s): Idiopathic gastroparesis, takes little in orally-has J tube for feedings and gastric stimulator- chronic abdominal pain, R pulmonary embolism -2017, dvt R upper extremity 2018, pancreatitis once in 2017-thought stone somewhere, hypothyroid, chronic anemia, sinus problems, migraines History of Any Multi-Drug Resistant Organisms: VRE Date of last positivie culture/infection: 08/01/18 MDRO Source:: VRE URINE Past Surgical History: Section, Cholecystectomy, Hernia Repair, Orthopedic Surgery, Tonsillectomy Additional Past Surgical History / Comment(s): Gastric pacer with removal in spring 2017, J tube, gastric stimulator, x3, 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 Mother Family Medical History: No Reported History Additional Family Medical History / Comment(s): Mother is 58yrs old. Medications and Allergies Home Medications Medication Instructions Recorded Confirmed Type Lansoprazole 30 mg PO BID 08/27/19 09/08/22 History Levothyroxine Sodium [Synthroid] 100 mcg PO DAILY 10/04/19 09/08/22 History Aspirin 81 mg PO DAILY 30 Days chewable 10/16/19 09/08/22 Rx SUMAtriptan succinate [Imitrex] 100 mg PO BID PRN 05/20/20 09/08/22 History Topiramate [Trokendi Xr] 50 mg PO HS 10/07/20 09/08/22 History Cetirizine HCl 10 mg PO DAILY 03/15/22 09/08/22 History Hyoscyamine Sulfate [Levsin] 0.125 mg SL QID PRN 03/15/22 09/08/22 History Tenapanor HCl [Ibsrela] 50 mg PO BID 03/15/22 09/08/22 History FLUoxetine HCL [PROzac] 40 mg PO DAILY 05/21/22 09/08/22 History Fondaparinux [Arixtra] 7.5 mg SQ HS 07/28/22 09/08/22 History Ondansetron Odt [Zofran Odt] 8 mg PO Q8HR PRN 07/28/22 09/08/22 History Promethazine HCl 12.5 mg PO Q6H PRN 09/08/22 09/08/22 History Promethazine HCl 25 mg PO Q6H PRN 09/08/22 09/08/22 History oxyCODONE HCL [oxyCODONE HCL (IR)] 15 mg PO Q8H PRN 09/08/22 09/08/22 History Allergies Allergy/AdvReac Type Severity Reaction Status Date / Time midazolam [From Versed] Allergy Anaphylaxis Verified 09/08/22 20:33 metoclopramide [From Reglan] AdvReac Mild jittery Verified 09/08/22 20:33 prochlorperazine AdvReac Mild JITTERY Verified 09/08/22 20:33 [From Compazine] ketorolac [From Toradol] AdvReac Abdominal Verified 09/08/22 20:33 Pain Physical Exam Vitals: Vital Signs Temp Pulse Resp BP Pulse Ox 09/08/22 23:00 77 14 114/68 96 09/08/22 22:30 80 13 143/89 95 09/08/22 22:00 135/94 09/08/22 21:30 64 19 116/70 97 09/08/22 21:00 89 16 116/74 97 09/08/22 20:30 89 13 116/68 100 09/08/22 20:00 66 20 123/87 100 09/08/22 19:40 66 16 129/93 94 L 09/08/22 18:54 98.0 F 101 H 20 149/112 100 Intake and Output 09/08/22 09/08/22 09/09/22 14:59 22:59 06:59 Other: Weight 72.575 kg Results CBC & Chem 7: 09/08/22 19:20 09/08/22 19:20 Labs: Abnormal Lab Results - Last 24 Hours (Table) 09/08/22 09/08/22 Range/Units 19:06 19:20 Potassium 3.4 L (3.5-5.1) mmol/L Alkaline Phosphatase 161 H (38-126) U/L Urine Opiates Screen Detected H (NotDetected) Ur Amphetamines Screen Detected H (NotDetected) U Benzodiazepines Scrn Detected H (NotDetected)
[2022-09-09] MEDS: SODIUM CHLORIDE 0.9% 1,000 ML IV SCH ×3 (05:08→22:14)
[2022-09-09] MEDS: HYDROmorphone 1 MG/ML 1 ML SYRINGE IVP PRN ×5 (05:09→22:37)
[2022-09-09] MEDS: ONDANSETRON 4 MG/2 ML VIAL IVP PRN ×2 (06:40→18:14)
[2022-09-09 06:55] LABS: ALT 29 U/L (4-34); African American GFR (CKD) >90 (>60 ml/min/1.73 sqM); Albumin 3.6 g/dL (3.5-5.0); Anion Gap 12 mmol/L; Blood Urea Nitrogen 7 mg/dL (7-17); Calcium 9.3 mg/dL (8.4-10.2); Carbon Dioxide 20 mmol/L (22-30); Chloride 107 mmol/L (98-107); Glucose 83 mg/dL (74-99); Non-African American GFR(CKD) >90 (>60 ml/min/1.73 sqM); Sodium 139 mmol/L (137-145); Total Bilirubin 0.6 mg/dL (0.2-1.3); Total Protein 6.1 g/dL (6.3-8.2)
[2022-09-09 07:03] LABS: AST 31 U/L (14-36); Alkaline Phosphatase 145 U/L (38-126); Potassium 4.2 mmol/L (3.5-5.1)
[2022-09-09 08:45] LABS: Basophils % (A) 1 %; Eosinophils # (A) 0.2 k/uL (0-0.7); Eosinophils % (A) 3 %; HCT 38.9 % (34.0-46.0); HGB 12.9 gm/dL (11.4-16.0); Lymphocytes # (A) 1.8 k/uL (1.0-4.8); Lymphocytes % (A) 32 %; MCH 28.3 pg (25.0-35.0); MCHC 33.2 g/dL (31.0-37.0); MCV 85.1 fL (80.0-100.0); Monocytes # (A) 0.4 k/uL (0-1.0); Monocytes % (A) 6 %; Neutrophils # (A) 3.2 k/uL (1.3-7.7); Neutrophils % (A) 56 %; Platelet Count 347 k/uL (150-450); RBC 4.57 m/uL (3.80-5.40); RDW 13.9 % (11.5-15.5); WBC 5.7 k/uL (3.8-10.6)
[2022-09-09] MEDS ORDERED: HYOSCYAMINE SULFATE 0.125 MG TAB SL PRN (09:11)
[2022-09-09] MEDS ORDERED: PROMETHAZINE 25 MG TAB PO PRN ×2 (09:11)
[2022-09-09] MEDS: LORazepam 2 MG/ML INJ IV PRN ×3 (09:15→20:38)
[2022-09-09] MEDS ORDERED: FLUoxetine HCL 20 MG CAP PO SCH (09:15)
[2022-09-09] MEDS: LORATADINE 10 MG TAB PO SCH (10:29)
[2022-09-09] MEDS: TOPIRAMATE 25 MG TAB PO SCH ×2 (10:29→20:25)
[2022-09-09] MEDS: PANTOPRAZOLE 40 MG TABLET PO SCH ×2 (10:29→20:25)
[2022-09-09] MEDS: diphenhydrAMINE 50 MG/ML 1 ML VIAL IVP PRN ×2 (10:29→18:28)
[2022-09-09] MEDS: LEVOTHYROXINE 100 MCG TAB PO SCH (10:29)
--- NOTE | 2022-09-09 13:21 | P.PN ---
Subjective Progress Note Date: 09/09/22 (delayed charting seen at approx 0920) Patient is a 5-year-old female with history of idiopathic gastroparesis status post gastric stimulator, hypothyroidism, GERD, and prior deep vein thrombosis who presented after an intentional overdose. Patient seen and examined at bedside in the ER with present. She reports that her belly pain and nausea are at baseline. She denies any chest pain, shortness of breath, dizziness. Per her she has been having a "flare" recently. However the patient did tell her that her abdominal pain and nausea and vomiting at baseline. She does admit to intentional overdose with lisinopril and hydrochlorothiazide. We discussed that she will be seen by psychiatry and they will write recommendations as to whether or not she needs inpatient psychiatry treatment. The states he was told she could stand medical for her mental health treatment, I claim him that this is not policy and if they felt she needed treatment for her mental health she would be admitted to the mental health unit. Vital signs reviewed General: nontoxic, no distress, appears at stated age Cardiovascular: S1S2 reg, no murmur, positive posterior tibial pulse bilateral, Lungs: CTA bilateral, no rhonchi, no rales , no accessory muscle use Abdominal: soft, nontender to palpation, no guarding, no appreciable organomegaly Ext: no gross muscle atrophy, no edema b/l lower extremities, no contractures Neuro: CN II-XI grossly intact, no focal neuro deficits Psych: Alert, oriented, appropriate affect Assessment: Suicide attempt with intentional overdose on lisinopril and hydrochlorothiazide Idiopathic gastroparesis with gastric stimulator History of deep pain thrombosis Hypothyroidism Opiate dependency Hypokalemia, resolved Imaging: None new Data Review: Blood pressures reviewed overnight and have been ranging from systolic of 96 to 141 and diastolic of 59-68 Plan: -Continue to monitor blood pressures until 24 hours from ingestion which he approximately 4 PM today -Resume home medications of Prozac 40 mg daily, Arixtra 7.5 mg at night, Levsin 0.125 mg as needed, Synthroid 100 g daily, Claritin 10 mg daily, oxycodone 15 mg by mouth every 8 hours, Protonix 40 mg twice daily, Phenergan, and Topamax 25 mg twice daily -Await psychiatry recommendations -Suicide precautions -Telemetry -Follow blood pressures DVT prophylaxis: Arixtra Discussed with: Patient, nursing, Anticipated discharge date: in AM Anticipated discharge place: MHU vs home This dictation was prepared using [employer] voice recognition software. Though every attempt is made to correct errors during dictation some may still exist. Objective - Vital Signs Vital signs: Vital Signs Temp 99.1 F 09/09/22 11:04 Pulse 85 09/09/22 11:04 Resp 18 09/09/22 11:04 BP 120/53 09/09/22 11:04 Pulse Ox 98 09/09/22 11:04 FiO2 Intake & Output 09/08/22 09/09/22 09/09/22 18:59 06:59 18:59 Weight 72.575 kg Other: Voiding Method Toilet - Labs CBC & Chem 7: 09/09/22 08:09 09/09/22 06:08 Labs: Abnormal Lab Results - Last 24 Hours (Table) 09/08/22 09/08/22 09/09/22 Range/Units 19:06 19:20 06:08 Potassium 3.4 L (3.5-5.1) mmol/L Carbon Dioxide 20 L (22-30) mmol/L Alkaline Phosphatase 161 H 145 H (38-126) U/L Total Protein 6.1 L (6.3-8.2) g/dL Urine Opiates Screen Detected H (NotDetected) Ur Amphetamines Screen Detected H (NotDetected) U Benzodiazepines Scrn Detected H (NotDetected)
--- NOTE | 2022-09-09 14:43 | P.HP ---
Psychiatric H&P - . H&P Date: 09/09/22 History & Physical: Allergies Allergy/AdvReac Type Severity Reaction Status Date / Time midazolam [From Versed] Allergy Anaphylaxis Verified 09/08/22 20:33 metoclopramide [From Reglan] AdvReac Mild jittery Verified 09/08/22 20:33 prochlorperazine AdvReac Mild JITTERY Verified 09/08/22 20:33 [From Compazine] ketorolac [From Toradol] AdvReac Abdominal Verified 09/08/22 20:33 Pain Vital Signs Temp 99.1 F 09/09/22 11:04 Pulse 85 09/09/22 11:04 Resp 18 09/09/22 11:04 BP 120/53 09/09/22 11:04 Pulse Ox 98 09/09/22 11:04 FiO2 Intake & Output 09/08/22 09/09/22 09/09/22 18:59 06:59 18:59 Weight 72.575 kg 72.575 kg Other: Voiding Method Toilet Laboratory Last Values WBC 5.7 k/uL (3.8-10.6) 09/09/22 08:09 RBC 4.57 m/uL (3.80-5.40) 09/09/22 08:09 Hgb 12.9 gm/dL (11.4-16.0) 09/09/22 08:09 Hct 38.9 % (34.0-46.0) 09/09/22 08:09 MCV 85.1 fL (80.0-100.0) 09/09/22 08:09 MCH 28.3 pg (25.0-35.0) 09/09/22 08:09 MCHC 33.2 g/dL (31.0-37.0) 09/09/22 08:09 RDW 13.9 % (11.5-15.5) 09/09/22 08:09 Plt Count 347 k/uL (150-450) 09/09/22 08:09 MPV 7.0 09/09/22 08:09 Neutrophils % 56 % 09/09/22 08:09 Lymphocytes % 32 % 09/09/22 08:09 Monocytes % 6 % 09/09/22 08:09 Eosinophils % 3 % 09/09/22 08:09 Basophils % 1 % 09/09/22 08:09 Neutrophils # 3.2 k/uL (1.3-7.7) 09/09/22 08:09 Lymphocytes # 1.8 k/uL (1.0-4.8) 09/09/22 08:09 Monocytes # 0.4 k/uL (0-1.0) 09/09/22 08:09 Eosinophils # 0.2 k/uL (0-0.7) 09/09/22 08:09 Basophils # 0.0 k/uL (0-0.2) 09/09/22 08:09 PT 11.0 sec (9.0-12.0) 09/08/22 22:00 INR 1.1 (<1.2) 09/08/22 22:00 Sodium 139 mmol/L (137-145) 09/09/22 06:08 Potassium 4.2 mmol/L (3.5-5.1) 09/09/22 06:08 Chloride 107 mmol/L (98-107) 09/09/22 06:08 Carbon Dioxide 20 mmol/L (22-30) L 09/09/22 06:08 Anion Gap 12 mmol/L 09/09/22 06:08 BUN 7 mg/dL (7-17) 09/09/22 06:08 Creatinine 0.73 mg/dL (0.52-1.04) 09/09/22 06:08 Est GFR (CKD-EPI)AfAm >90 (>60 ml/min/1.73 sqM) 09/09/22 06:08 Est GFR (CKD-EPI)NonAf >90 (>60 ml/min/1.73 sqM) 09/09/22 06:08 Glucose 83 mg/dL (74-99) 09/09/22 06:08 Calcium 9.3 mg/dL (8.4-10.2) 09/09/22 06:08 Total Bilirubin 0.6 mg/dL (0.2-1.3) 09/09/22 06:08 AST 31 U/L (14-36) 09/09/22 06:08 ALT 29 U/L (4-34) 09/09/22 06:08 Alkaline Phosphatase 145 U/L (38-126) H 09/09/22 06:08 Troponin I <0.012 ng/mL (0.000-0.034) 09/08/22 19:20 Total Protein 6.1 g/dL (6.3-8.2) L 09/09/22 06:08 Albumin 3.6 g/dL (3.5-5.0) 09/09/22 06:08 Lipase 46 U/L (23-300) 09/08/22 19:20 Urine HCG, Qual Not Detected (Not Detectd) 09/08/22 19:06 Salicylates <1.0 mg/dL 09/08/22 19:20 Urine Opiates Screen Detected (NotDetected) H 09/08/22 19:06 Ur Oxycodone Screen Not Detected (NotDetected) 09/08/22 19:06 Urine Methadone Screen Not Detected (NotDetected) 09/08/22 19:06 Ur Propoxyphene Screen Not Detected (NotDetected) 09/08/22 19:06 Acetaminophen <10.0 ug/mL 09/08/22 19:20 Ur Barbiturates Screen Not Detected (NotDetected) 09/08/22 19:06 U Tricyclic Antidepress Not Detected (NotDetected) 09/08/22 19:06 Ur Phencyclidine Scrn Not Detected (NotDetected) 09/08/22 19:06 Ur Amphetamines Screen Detected (NotDetected) H 09/08/22 19:06 U Methamphetamines Scrn Not Detected (NotDetected) 09/08/22 19:06 U Benzodiazepines Scrn Detected (NotDetected) H 09/08/22 19:06 Urine Cocaine Screen Not Detected (NotDetected) 09/08/22 19:06 U Marijuana (THC) Screen Not Detected (NotDetected) 09/08/22 19:06 Serum Alcohol <10 mg/dL 09/08/22 19:20 09/09/22 14:42 IDENTIFYING DATA: This patient is a , employed, 42 year old female with a significant history of idiopathic gastroparesis who presented to our hospital on 09/08/2022 HISTORY OF PRESENT ILLNESS: The patient presented to the hospital on 09/08/2022, after intentional overdose on her 's lisinopril and hydrochlorothiazide. The patient overdosed at approximately 4 PM on 09/08/2022 and estimates 30 tablets were ingested. The patient was subsequently admitted to the medical floor for observation. Psychiatrist been consulted for evaluation and management of depression with intentional overdose. Upon evaluation on the medical floor, the patient reports that she has been feeling increasingly depressed for the past year. She reports that she has been experiencing intermittent suicidal thoughts however she has been planning to overdose since this past April. She reports that she has been feeling helpless, hopeless, anhedonic, crying, and restless. She reports that she has been feeling increasingly depressed in regards to her constant issues regarding her gastroparesis and nausea. The patient does report that it was her intention to kill herself. She does express that this was a mistake. She does not endorse any significant history of bipolar disorder and reports no periods of excessive energy, grandiosity, impulsivity, or mood lability. She denies any significant history of auditory or visual hallucinations. She reports no paranoia or other delusions. The patient reports that she restarted seeing her therapist at [facility] approximately 2 months ago. However, the patient reports that her depression has been worsening and that the Prozac has been of little to no benefit. The patient is agreeable to inpatient psychiatric admission. PAST PSYCHIATRIC HISTORY: Patient has a depression and anxiety. Recalls being previously prescribed Prozac and Abilify. Patient denies any previous psychiatric hospitalizations. She currently sees a therapist at [facility]. Aside from this overdose attempt, the patient denies any other prior attempts at suicide. PAST MEDICAL HISTORY: Past Medical History: Deep Vein Thrombosis (DVT), GERD/Reflux, Pulmonary Embolus (PE), Thyroid Disorder Additional Past Medical History / Comment(s): Idiopathic gastroparesis, takes little in orally-has J tube for feedings and gastric stimulator- chronic abdominal pain, R pulmonary embolism -2017, dvt R upper extremity 2018, pancreatitis once in 2018-thought stone somewhere, hypothyroid, chronic anemia, sinus problems, migraines History of Any Multi-Drug Resistant Organisms: VRE Date of last positivie culture/infection: 08/01/18 MDRO Source:: VRE URINE Past Surgical History: Section, Cholecystectomy, Hernia Repair, Orthopedic Surgery, Tonsillectomy Additional Past Surgical History / Comment(s): Gastric pacer with removal in spring 2017, J tube, gastric stimulator, x3, 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, EGDs/ERCP, Pyloric surgery, colonoscopy, incisional hernia repair, piccs, mediport insertion , left carpal tunnel, right wrist cyst removal Past Anesthesia/Blood Transfusion Reactions: Motion Sickness, Postoperative Darren sea & Vomiting (PONV) Past Psychological History: Depression Smoking Status: Never smoker Past Alcohol Use History: Occasional Past Drug Use History: None Reported ALLERGIES: Allergies Allergy/AdvReac Type Severity Reaction Status Date / Time midazolam [From Versed] Allergy Anaphylaxis Verified 09/08/22 20:33 metoclopramide [From Reglan] AdvReac Mild jittery Verified 09/08/22 20:33 prochlorperazine AdvReac Mild JITTERY Verified 09/08/22 20:33 [From Compazine] ketorolac [From Toradol] AdvReac Abdominal Verified 09/08/22 20:33 Pain CHEMICAL DEPENDENCY HISTORY: Patient denies any tobacco, alcohol, marijuana, or illicit drug use. FAMILY PSYCHIATRIC/SUBSTANCE USE HISTORY: No reported family psychiatric history. SOCIAL HISTORY: Patient was [place] and raised [place]. She's been to her Aureliano for the past 18 years. They have 3 children together ages 15, 13, and 11. She lives with her and 3 children and 3 dogs. She has her bachelor's degree in social work. She attended [employer]. 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 Her hobbies and interests include camping. She reports no service. She denies any legal issues. She is Jain. MENTAL STATUS EXAM: General Appearance: Patient appears to be stated age is alert, pleasant, and cooperative. Patient appears to have fair hygiene and grooming wearing hospital gown with fair eye contact. Behavior: Patient is calmly lying in bed without any agitated behavior. Eye contact is appropriate. Speech: Patient's speech is fluent and nonpressured. Mood/Affect: Patient reports their mood is "depressed", affect is congruent and tearful. Melancholic. Suicidality/Homicidality: Patient denies any current suicidal or homicidal ideation, intention, and/or plan. Perceptions: Patient denies any visual hallucinations and denies any auditory hallucinations Though content/process: There is no evidence of any delusional thought content and thought process is linear and goal-directed. Memory and concentration: AOX3, grossly intact for the purposes of this session. Can spell "WORLD" backwards Judgment and insight: Fair IMPRESSIONS: Major depressive disorder, recurrent, severe Depressive disorder secondary to general medical condition PLAN: -At this time patient DOES meet criteria for inpatient psychiatric admission. The patient is at imminent risk of harm to self due to this overdose attempt. She does endorse significant symptoms of severe depression. -Would recommend the following medication changes/additions: Decrease Prozac to 30 mg by mouth daily. Start Remeron 7.5 mg by mouth at bedtime for depression/insomnia/nausea -Continue 1:1 sitter for safety -Cannot leave AMA at this time. Patient will need a petition and certification if attempting to leave AMA. -Will continue to follow along -When medically stable, patient is eligible for transfer to a psych bed when available. 09/09/22 14:42
[2022-09-09] MEDS: FONDAPARINUX 7.5 MG/0.6 ML SYRINGE SQ SCH (20:24)
[2022-09-09] MEDS ORDERED: MIRTAZAPINE 15 MG TAB PO SCH (21:00)
[2022-09-10] MEDS: diphenhydrAMINE 50 MG/ML 1 ML VIAL IVP PRN ×4 (00:24→19:55)
[2022-09-10] MEDS: HYDROmorphone 1 MG/ML 1 ML SYRINGE IVP PRN ×5 (02:13→19:51)
[2022-09-10] MEDS: ONDANSETRON 4 MG/2 ML VIAL IVP PRN ×2 (02:14→14:31)
[2022-09-10] MEDS: LORazepam 2 MG/ML INJ IV PRN ×3 (03:33→17:20)
[2022-09-10] MEDS: SODIUM CHLORIDE 0.9% 1,000 ML IV SCH ×3 (05:55→19:53)
[2022-09-10] MEDS: LEVOTHYROXINE 100 MCG TAB PO SCH (06:43)
[2022-09-10] MEDS ORDERED: FLUoxetine HCL 10 MG CAP PO SCH (09:00)
[2022-09-10] MEDS: LORATADINE 10 MG TAB PO SCH (09:04)
[2022-09-10] MEDS: TOPIRAMATE 25 MG TAB PO SCH ×2 (09:04→19:53)
[2022-09-10] MEDS: PANTOPRAZOLE 40 MG TABLET PO SCH ×2 (09:04→19:53)
--- NOTE | 2022-09-10 11:38 | P.PN ---
Subjective Progress Note Date: 09/10/22 No new complaints. today. Pt not a candidate for our MHU due to having a J tube. Gen: awake, alert HEENT: normocephalic, atraumatic, good hearing acuity, moist mucous membranes Resp: good air exchange, breathing comfortably with no accessory muscle use CVS: good distal perfusion x 4, GI: soft, NTTP, ND : no SPT, no CVAT, page catheter not present MSK: no pitting edema, no clubbing Neuro: non-focal, moving all extremities Psych: cooperative, euthymic mood Hospital course: Patient is a 42-year-old female with history of idiopathic gastroparesis status post gastric stimulator, hypothyroidism, GERD, and prior deep vein thrombosis who presented after an intentional overdose. Assessment: Suicide attempt with intentional overdose on lisinopril and hydrochlorothiazide Idiopathic gastroparesis with gastric stimulator History of deep pain thrombosis Hypothyroidism Opiate dependency Hypokalemia, resolved Plan: Today, patient is afebrile, 112/67, heart rate 64, 97% on room Discussed with psychiatry team today, patient is a candidate for inpatient hospitalization for psychiatry, however, due to having J-tube, patient is not a candidate for our mental health unit Consult dietitian for J-tube feedings Continue levothyroxine 100 g Continue Ativan 1 mg every 4 hours when necessary Continue Dilaudid 1 mg every 4 hours when necessary Patient is full code Objective - Vital Signs Vital signs: Vital Signs Temp 98.2 F 09/10/22 08:00 Pulse 64 09/10/22 08:00 Resp 16 09/10/22 08:00 BP 112/67 09/10/22 08:00 Pulse Ox 97 09/10/22 08:00 FiO2 Intake & Output 09/09/22 09/10/22 09/10/22 18:59 06:59 18:59 Intake Total 354 Output Total 0 0 Balance 0 0 354 Weight 72.575 kg Intake: Oral 354 Output: Emesis 0 0 Other: Voiding Method Toilet Toilet Toilet # Voids 2 - Labs CBC & Chem 7: 09/09/22 08:09 09/09/22 06:08
--- NOTE | 2022-09-10 12:21 | P.PN ---
Progress Note - Text Progress Note Date: 09/10/22 Interval History: Patient was seen resting in bed with sitters present. She is agreeable to speak with group underwriter. Currently, the patient rates his depression 9 out of 10 in severity with 10 being very severe. She continues to report excessive feelings of guilt, hopelessness, helplessness, low mood, low motivation, poor energy, and crying episodes. She continues to express that she is frustrated in regards to her medical situation. She expresses that she feels like a burden to her family. She does endorse significant symptoms of anhedonia. However, the patient is not reporting any suicidal or homicidal ideation, intention, and/or plan. She has been tolerating her new medications well and is not reporting any significant side effects. She denies any auditory or visual hallucinations. She reports no paranoia or other delusions. Mental Status Exam: General Appearance: Patient appears to be stated age is alert, directable, and cooperative. Behavior: Patient is calmly seated without any agitated behavior. Appropriate tearful. Speech: Patient's speech is fluent and nonpressured. Mood/Affect: Mood is "depressed." Affect is congruent, tearful, and constricted. Suicidality/Homicidality: Patient denies having any suicidal or homicidal ideation intent or plan. Perceptions: Patient denies any visual hallucinations and denies any auditory hallucinations Though content/process: Dysphoric thought process. Excessive feelings of guilt. Memory and concentration: AOX3, grossly intact for the purposes of this session Judgment and insight: Improving mildly Vital Signs Temp 98.2 F 09/10/22 08:00 Pulse 64 09/10/22 08:00 Resp 16 09/10/22 08:00 BP 112/67 09/10/22 08:00 Pulse Ox 97 09/10/22 08:00 FiO2 Intake & Output 09/09/22 09/10/22 09/10/22 18:59 06:59 18:59 Intake Total 354 Output Total 0 0 Balance 0 0 354 Weight 72.575 kg Intake: Oral 354 Output: Emesis 0 0 Other: Voiding Method Toilet Toilet Toilet # Voids 2 Laboratory Results WBC 5.7 k/uL (3.8-10.6) 09/09/22 08:09 RBC 4.57 m/uL (3.80-5.40) 09/09/22 08:09 Hgb 12.9 gm/dL (11.4-16.0) 09/09/22 08:09 Hct 38.9 % (34.0-46.0) 09/09/22 08:09 MCV 85.1 fL (80.0-100.0) 09/09/22 08:09 MCH 28.3 pg (25.0-35.0) 09/09/22 08:09 MCHC 33.2 g/dL (31.0-37.0) 09/09/22 08:09 RDW 13.9 % (11.5-15.5) 09/09/22 08:09 Plt Count 347 k/uL (150-450) 09/09/22 08:09 MPV 7.0 09/09/22 08:09 Neutrophils % 56 % 09/09/22 08:09 Lymphocytes % 32 % 09/09/22 08:09 Monocytes % 6 % 09/09/22 08:09 Eosinophils % 3 % 09/09/22 08:09 Basophils % 1 % 09/09/22 08:09 Neutrophils # 3.2 k/uL (1.3-7.7) 09/09/22 08:09 Lymphocytes # 1.8 k/uL (1.0-4.8) 09/09/22 08:09 Monocytes # 0.4 k/uL (0-1.0) 09/09/22 08:09 Eosinophils # 0.2 k/uL (0-0.7) 09/09/22 08:09 Basophils # 0.0 k/uL (0-0.2) 09/09/22 08:09 PT 11.0 sec (9.0-12.0) 09/08/22 22:00 INR 1.1 (<1.2) 09/08/22 22:00 Sodium 139 mmol/L (137-145) 09/09/22 06:08 Potassium 4.2 mmol/L (3.5-5.1) 09/09/22 06:08 Chloride 107 mmol/L (98-107) 09/09/22 06:08 Carbon Dioxide 20 mmol/L (22-30) L 09/09/22 06:08 Anion Gap 12 mmol/L 09/09/22 06:08 BUN 7 mg/dL (7-17) 09/09/22 06:08 Creatinine 0.73 mg/dL (0.52-1.04) 09/09/22 06:08 Est GFR (CKD-EPI)AfAm >90 (>60 ml/min/1.73 sqM) 09/09/22 06:08 Est GFR (CKD-EPI)NonAf >90 (>60 ml/min/1.73 sqM) 09/09/22 06:08 Glucose 83 mg/dL (74-99) 09/09/22 06:08 Calcium 9.3 mg/dL (8.4-10.2) 09/09/22 06:08 Total Bilirubin 0.6 mg/dL (0.2-1.3) 09/09/22 06:08 AST 31 U/L (14-36) 09/09/22 06:08 ALT 29 U/L (4-34) 09/09/22 06:08 Alkaline Phosphatase 145 U/L (38-126) H 09/09/22 06:08 Troponin I <0.012 ng/mL (0.000-0.034) 09/08/22 19:20 Total Protein 6.1 g/dL (6.3-8.2) L 09/09/22 06:08 Albumin 3.6 g/dL (3.5-5.0) 09/09/22 06:08 Lipase 46 U/L (23-300) 09/08/22 19:20 Urine HCG, Qual Not Detected (Not Detectd) 09/08/22 19:06 Salicylates <1.0 mg/dL 09/08/22 19:20 Urine Opiates Screen Detected (NotDetected) H 09/08/22 19:06 Ur Oxycodone Screen Not Detected (NotDetected) 09/08/22 19:06 Urine Methadone Screen Not Detected (NotDetected) 09/08/22 19:06 Ur Propoxyphene Screen Not Detected (NotDetected) 09/08/22 19:06 Acetaminophen <10.0 ug/mL 09/08/22 19:20 Ur Barbiturates Screen Not Detected (NotDetected) 09/08/22 19:06 U Tricyclic Antidepress Not Detected (NotDetected) 09/08/22 19:06 Ur Phencyclidine Scrn Not Detected (NotDetected) 09/08/22 19:06 Ur Amphetamines Screen Detected (NotDetected) H 09/08/22 19:06 U Methamphetamines Scrn Not Detected (NotDetected) 09/08/22 19:06 U Benzodiazepines Scrn Detected (NotDetected) H 09/08/22 19:06 Urine Cocaine Screen Not Detected (NotDetected) 09/08/22 19:06 U Marijuana (THC) Screen Not Detected (NotDetected) 09/08/22 19:06 Serum Alcohol <10 mg/dL 09/08/22 19:20 Assessment Major depressive disorder, recurrent, severe Depressive disorder secondary to general medical condition Plan: -At this time patient DOES meet criteria for inpatient psychiatric admission. The patient is at imminent risk of harm to self due to this overdose attempt. She does endorse significant symptoms of severe depression. However, the patient does have medical complications that are in the exclusion criteria for our psychiatric unit. Psychiatry will continue to evaluate and treat the patient on the medical floor. Consider placement to a med/psych unit should a bed become available. -Approximately 20 minutes was spent providing the patient with introduction to cognitive behavioral therapy and behavioral activation. -Would recommend the following medication changes/additions: Decrease Prozac to 20 mg by mouth daily. Increase Remeron to 15 mg by mouth at bedtime for depression/insomnia/nausea -Continue 1:1 sitter for safety -Cannot leave AMA at this time. Patient will need a petition and certification if attempting to leave AMA. -Will continue to follow along
[2022-09-10 15:31] VITALS: BMI 28.3
[2022-09-10] MEDS ORDERED: MIRTAZAPINE 15 MG TAB PO SCH (21:00)
[2022-09-10] MEDS: FONDAPARINUX 7.5 MG/0.6 ML SYRINGE SQ SCH (21:08)
[2022-09-11] MEDS: ONDANSETRON 4 MG/2 ML VIAL IVP PRN ×3 (00:37→20:38)
[2022-09-11] MEDS: HYDROmorphone 1 MG/ML 1 ML SYRINGE IVP PRN ×2 (00:44→06:02)
[2022-09-11] MEDS: LORazepam 2 MG/ML INJ IV PRN ×2 (02:34→08:26)
[2022-09-11] MEDS: diphenhydrAMINE 50 MG/ML 1 ML VIAL IVP PRN ×4 (02:39→21:27)
[2022-09-11] MEDS: LEVOTHYROXINE 100 MCG TAB PO SCH (05:40)
[2022-09-11] MEDS: SODIUM CHLORIDE 0.9% 1,000 ML IV SCH ×2 (06:28→13:44)
[2022-09-11] MEDS: FLUoxetine HCL 20 MG CAP PO SCH (08:26)
[2022-09-11] MEDS: LORATADINE 10 MG TAB PO SCH (08:26)
[2022-09-11] MEDS: TOPIRAMATE 25 MG TAB PO SCH ×2 (08:26→08:27)
[2022-09-11] MEDS: PANTOPRAZOLE 40 MG TABLET PO SCH ×2 (08:26→20:39)
--- NOTE | 2022-09-11 12:44 | P.PN ---
Subjective Progress Note Date: 09/11/22 No new complaints. today. Patient is tolerating J-tube feeds. Gen: awake, alert HEENT: normocephalic, atraumatic, good hearing acuity, moist mucous membranes Resp: good air exchange, breathing comfortably with no accessory muscle use CVS: good distal perfusion x 4, GI: soft, NTTP, ND : no SPT, no CVAT, page catheter not present MSK: no pitting edema, no clubbing Neuro: non-focal, moving all extremities Psych: cooperative, euthymic mood Hospital course: Patient is a 42-year-old female with history of idiopathic gastroparesis status post gastric stimulator, hypothyroidism, GERD, and prior deep vein thrombosis who presented after an intentional overdose. Assessment: Suicide attempt with intentional overdose on lisinopril and hydrochlorothiazide Idiopathic gastroparesis with gastric stimulator History of deep pain thrombosis Hypothyroidism Opiate dependency Hypokalemia, resolved Plan: Today, patient is afebrile, 163/74, heart rate 74, 98% on room air Consult dietitian for J-tube feedings Continue levothyroxine 100 g Discontinue Ativan 1 mg every 4 hours when necessary Discontinue Dilaudid 1 mg every 4 hours when necessary, add [place] 7.5/325 every 4 hours when necessary Patient is full code Objective - Vital Signs Vital signs: Vital Signs Temp 98.1 F 09/11/22 08:00 Pulse 74 09/11/22 08:00 Resp 16 09/11/22 08:00 BP 163/74 09/11/22 08:00 Pulse Ox 98 09/11/22 08:00 FiO2 Intake & Output 09/10/22 09/11/22 09/11/22 18:59 06:59 18:59 Intake Total 472 Balance 472 Weight 72.575 kg Intake: Oral 472 Other: Voiding Method Toilet Toilet - Labs CBC & Chem 7: 09/09/22 08:09 09/09/22 06:08
[2022-09-11] MEDS: HYDROcodone/APAP 7.5-325MG 1 EACH TAB PO PRN ×2 (13:09→20:38)
[2022-09-11] MEDS: LORazepam 0.5 MG TAB PO PRN (17:30)
--- NOTE | 2022-09-11 17:34 | P.CN ---
Psychiatric Consult - . Consult date: 09/11/22 Consult:: 09/11/22 17:28 Patient was seen resting in bed with sitters present. She is agreeable to speak with typewriter aligner. Currently, the patient rates her depression 7 out of 10 in severity with 10 being very severe. This is an improvement since yesterday she does not think she will feel suicidal and if she did she will ask for the one-on-one sitter back. On the other hand she is not sure that she would be able to keep herself safe at home. She continues to report excessive feelings of guilt, hopelessness, helplessness, low mood, low motivation, poor energy, and crying episodes. She continues to express that she is frustrated in regards to her medical situation. She expresses that she feels like a burden to her family. She does endorse significant symptoms of anhedonia. However, the patient is not reporting any suicidal or homicidal ideation, intention, and/or plan. She has been tolerating her new medications well and is not reporting any significant side effects. She denies any auditory or visual hallucinations. She reports no paranoia or other delusions. Mental Status Exam: Patient was seen along with her General Appearance: Patient appears to be stated age is alert, directable, and cooperative. Behavior: Patient is calmly seated without any agitated behavior. Appropriate but tearful. Speech: Patient's speech is fluent and nonpressured. She talked about feeling that she was a burden. But also points out that she is a person of venita she had forgotten some of the bouncing principles. Mood/Affect: Mood is "depressed." Affect is congruent, tearful, and constricted. Suicidality/Homicidality: Patient denies having any suicidal or homicidal ideation intent or plan. Perceptions: Patient denies any visual hallucinations and denies any auditory hallucinations Though content/process: Dysphoric thought process. Excessive feelings of guilt. Memory and concentration: AOX3, grossly intact for the purposes of this session Judgment and insight: Improving mildly Assessment Major depressive disorder, recurrent, severe Depressive disorder secondary to general medical condition Plan: Internal medicine feels she is stable and from their viewpoint would be ready for discharge or transfer to the psychiatric unit. They want us to see her and manage the psychiatric medicines -At this time patient DOES meet criteria for inpatient psychiatric admission she is not actively suicidal and feels that she would be comfortable without the one-on-one she is tolerating the medications well but still feels quite depressed and is easily tearful... The patient is at imminent risk of harm to self due to this overdose attempt. She does endorse significant symptoms of severe depression. However, the patient does have medical complications that are in the exclusion criteria for our psychiatric unit. Psychiatry will continue to evaluate and treat the patient on the medical floor. Consider placement to a med/psych unit should a bed become available. Decrease Prozac to 20 mg by mouth daily. The Remeron augmented said and makes it worked better so 20 mg is actually 40 mg with fewer side effects. Increase Remeron to 30 mg by mouth at bedtime for depression/insomnia/nausea she is not having any excess appetite or drowsiness from Discontinue 1:1 sitter for safety/okay to have a Bible in her room -Cannot leave AMA at this time. Patient will need a petition and certification if attempting to leave AMA. -Will continue to follow along
[2022-09-11] MEDS: MIRTAZAPINE 15 MG TAB PO SCH (20:41)
[2022-09-11] MEDS: FONDAPARINUX 7.5 MG/0.6 ML SYRINGE SQ SCH (20:41)
[2022-09-11] MEDS: TENAPANOR HCL PO SCH (20:43)
[2022-09-11] MEDS: TROKENDI 50 MG PO SCH (20:43)
[2022-09-12] MEDS: diphenhydrAMINE 50 MG/ML 1 ML VIAL IVP PRN ×4 (02:56→22:59)
[2022-09-12] MEDS: ONDANSETRON 4 MG/2 ML VIAL IVP PRN ×2 (06:12→21:06)
[2022-09-12] MEDS: HYDROcodone/APAP 7.5-325MG 1 EACH TAB PO PRN ×3 (06:12→21:06)
[2022-09-12] MEDS: LEVOTHYROXINE 100 MCG TAB PO SCH (06:13)
[2022-09-12] MEDS: ASPIRIN 81 MG PO SCH (08:42)
[2022-09-12] MEDS: TENAPANOR HCL PO SCH ×2 (08:42→20:59)
[2022-09-12] MEDS: PANTOPRAZOLE 40 MG TABLET PO SCH ×2 (08:42→20:58)
[2022-09-12] MEDS: FLUoxetine HCL 20 MG CAP PO SCH (08:42)
[2022-09-12] MEDS: LORATADINE 10 MG TAB PO SCH (08:42)
--- NOTE | 2022-09-12 10:34 | P.PN ---
Subjective Progress Note Date: 09/12/22 No new complaints. today. Patient is tolerating J-tube feeds. Pt requested transfer to [facility] yesterday and was accepted by Dr. Pedro, pending insurance authorization for transfer. Gen: awake, alert HEENT: normocephalic, atraumatic, good hearing acuity, moist mucous membranes Resp: good air exchange, breathing comfortably with no accessory muscle use CVS: good distal perfusion x 4, GI: soft, NTTP, ND : no SPT, no CVAT, page catheter not present MSK: no pitting edema, no clubbing Neuro: non-focal, moving all extremities Psych: cooperative, euthymic mood Hospital course: Patient is a 42-year-old female with history of idiopathic gastroparesis status post gastric stimulator, hypothyroidism, GERD, and prior deep vein thrombosis who presented after an intentional overdose. Assessment: Suicide attempt with intentional overdose on lisinopril and hydrochlorothiazide Idiopathic gastroparesis with gastric stimulator History of deep pain thrombosis Hypothyroidism Opiate dependency Hypokalemia, resolved Plan: Today, patient is afebrile, 101/69, 87, 97% on room air Consult dietitian for J-tube feedings Continue levothyroxine 100 g Discontinue Ativan 1 mg every 4 hours when necessary Discontinue Dilaudid 1 mg every 4 hours when necessary, add [place] 7.5/325 every 4 hours when necessary Patient is full code Objective - Vital Signs Vital signs: Vital Signs Temp 98.2 F 09/12/22 08:00 Pulse 87 09/12/22 08:00 Resp 16 09/12/22 08:00 BP 101/69 09/12/22 08:00 Pulse Ox 97 09/12/22 08:00 FiO2 Intake & Output 09/11/22 09/12/22 09/12/22 18:59 06:59 18:59 Intake Total 236 118 Balance 236 118 Weight 74.162 kg 74.6 kg Intake: Oral 236 118 Other: Voiding Method Toilet # Voids 4 - Labs CBC & Chem 7: 09/09/22 08:09 09/09/22 06:08
--- NOTE | 2022-09-12 10:39 | P.CN ---
Psychiatric Consult - . Consult date: 09/12/22 Consult:: 09/12/22 10:36 Patient was seen along with her chart reviewed Subjective: The patient says she slept well without being excessively sleepy. She was eating a breakfast of oatmeal but does not have excessive appetite so seems to be tolerating the mirtazapine well. I reeducated her on the beneficial interaction between Prozac and mirtazapine and on the other things that she needs to work on besides take medicines. She was without the one-on-one during the night and did not experience any strong urges to hurt herself she is still concerned about the future and how she'll function back in her normal environment. Mental status exam: Affect is still sad and serious, responses are slow, thought content is vague she did not have any comments or questions on what we talked about yesterday. Psychomotor activity is decreased eye contact is still down. She denies active suicidality and has no psychotic symptoms now or in the past. Plan: Patient is tolerating J-tube feeds. Pt requested transfer to [facility] yesterday and was accepted by Dr. Pedro, pending insurance authorization for transfer. I think she should continue on the 30 of mirtazapine.
[2022-09-12] MEDS: MIRTAZAPINE 15 MG TAB PO SCH (20:58)
[2022-09-12] MEDS: TROKENDI 50 MG PO SCH (20:59)
[2022-09-12] MEDS: FONDAPARINUX 7.5 MG/0.6 ML SYRINGE SQ SCH (21:06)
[2022-09-13] MEDS: LORazepam 0.5 MG TAB PO PRN (00:02)
[2022-09-13] MEDS: LEVOTHYROXINE 100 MCG TAB PO SCH (06:59)
[2022-09-13] MEDS: diphenhydrAMINE 50 MG/ML 1 ML VIAL IVP PRN (06:59)
[2022-09-13 08:26] VITALS: BP 104/74; PULSE 90; RESP 18; TEMP 98.1
[2022-09-13] MEDS: PANTOPRAZOLE 40 MG TABLET PO SCH (09:06)
[2022-09-13] MEDS: TENAPANOR HCL PO SCH (09:06)
[2022-09-13] MEDS: ASPIRIN 81 MG PO SCH (09:06)
[2022-09-13] MEDS: FLUoxetine HCL 20 MG CAP PO SCH (09:06)
[2022-09-13] MEDS: LORATADINE 10 MG TAB PO SCH (09:06)
[2022-09-13] MEDS: HYDROcodone/APAP 7.5-325MG 1 EACH TAB PO PRN (09:06)
[2022-09-13] MEDS: ONDANSETRON 4 MG/2 ML VIAL IVP PRN (09:11)
[2022-09-13] MEDS ORDERED: ACETAMINOPHEN TAB 325 MG TAB PO PRN (10:36)
--- NOTE | 2022-09-13 11:39 | P.PN ---
Progress Note - Text Progress Note Date: 09/13/22 Interval History: Patient was seen resting in bed with her present. She is agreeable to speak with conventional mortgage underwriter with him present. Currently, the patient rates his depression 9 out of 10 in severity with 10 being very severe. She reports low mood, crying episodes, and poor appetite. She states she is currently not suicidal however did not realize she was looking up the overdose potential of remeron earlier. She is scared that she looked this up and is uncertain whether she was looking into how much it took to overdose or what would be a safe regular dose of the medication. However, the patient reports that she is eager to return home. Her at bedside confirms that he will monitor and lock up medications. They report that the patient would benefit from a change of scenery and safety planning took place including calling family/friends, utilization of crisis numbers, or returning to the emergency department if in a mental health crisis. Mental Status Exam: General Appearance: Patient appears to be stated age is alert, directable, and cooperative. Behavior: Patient is calmly seated without any agitated behavior. Tearful. Speech: Patient's speech is fluent and nonpressured. Mood/Affect: Mood is "depressed." Affect is congruent and tearful but more range today. Suicidality/Homicidality: Patient denies having any current suicidal or homicidal ideation intent or plan. Perceptions: Patient denies any visual hallucinations and denies any auditory hallucinations Though content/process: No overt delusional thought content. Thought process is more future and goal-oriented. Memory and concentration: AOX3, grossly intact for the purposes of this session Judgment and insight: Improving mildly Vital Signs Temp 98.1 F 09/13/22 08:00 Pulse 90 09/13/22 08:00 Resp 18 09/13/22 08:00 BP 104/74 09/13/22 08:00 Pulse Ox 100 09/13/22 08:00 FiO2 Intake & Output 09/12/22 09/13/22 09/13/22 18:59 06:59 18:59 Weight 73.9 kg Assessment Major depressive disorder, recurrent, severe Depressive disorder secondary to general medical condition Plan: -Patient currently DOES NOT meet criteria for inpatient psychiatric admission. She is future and goal oriented. Although endorsing severe depression, the patient is not presenting with imminent risk of harm to self or others. She safety plans appropriately and has strong support from family. Family confirms that they will monitor/lock up her medications. -Approximately 20 minutes was spent providing the patient with introduction to cognitive behavioral therapy and behavioral activation. -Medications: Prozac 20 mg daily for depression Remeron 30 mg at bedtime for depression/nausea/insomnia -Patient is cleared psychiatrically for discharge. Recommend outpatient psychiatric follow-up. -Please call us or reconsult us if necessary. Thank you.
--- NOTE | 2022-09-13 11:43 | P.DS ---
Providers Date of admission: 09/08/22 21:43 Expected date of discharge: 09/13/22 Attending physician: Kee Dias MD Consults: 09/08/22 21:41 Consult Physician Routine Consulting Provider: Anthony Weir Consult Reason/Comments: psych,OD Do you want consulting provider notified?: Yes Primary care physician: [facility] Course: Assessment: Suicide attempt with intentional overdose on lisinopril and hydrochlorothiazide Idiopathic gastroparesis with gastric stimulator History of deep pain thrombosis Hypothyroidism Opiate dependency Hypokalemia, resolved Hospital course: Patient is a 42-year-old female with history of idiopathic gastroparesis status post gastric stimulator, hypothyroidism, GERD, and prior deep vein thrombosis who presented after an intentional overdose. Patient was petitioned for psychiatric care. However, due to J-tube, she was not a candidate for mental health unit. Patient was monitored over the weekend, but no longer endorsed suicidal ideation, discharge. Upon reevaluation by psychiatry, they cleared her for discharge. Medication changes were made to her regimen including the addition of Remeron. I spent 40 minutes coordinating this discharge on 09/13 Gen: awake, alert HEENT: normocephalic, atraumatic, good hearing acuity, moist mucous membranes Resp: good air exchange, breathing comfortably with no accessory muscle use CVS: good distal perfusion x 4, GI: soft, NTTP, ND : no SPT, no CVAT, page catheter not present MSK: no pitting edema, no clubbing Neuro: non-focal, moving all extremities Psych: cooperative, euthymic mood Patient Condition at Discharge: Good Plan - Discharge Summary Discharge Rx Participant: No New Discharge Prescriptions: New Mirtazapine [Remeron] 30 mg PO HS #60 tab Acetaminophen Tab [Tylenol] 650 mg PO Q4HR PRN tab PRN Reason: Fever And/ Or Pain FLUoxetine HCL [PROzac] 20 mg PO DAILY 30 Days #30 cap Continue Lansoprazole 30 mg PO BID Levothyroxine Sodium [Synthroid] 100 mcg PO DAILY Aspirin 81 mg PO DAILY 30 Days chewable Tenapanor HCl [Ibsrela] 50 mg PO BID Hyoscyamine Sulfate [Levsin] 0.125 mg SL QID PRN PRN Reason: Gi Upset Ondansetron Odt [Zofran ODT] 8 mg PO Q8HR PRN PRN Reason: Nausea Fondaparinux [Arixtra] 7.5 mg SQ HS oxyCODONE HCL [oxyCODONE HCL (IR)] 15 mg PO Q8H PRN PRN Reason: Pain Promethazine HCl 25 mg PO Q6H PRN PRN Reason: Nausea Topiramate [Trokendi Xr] 50 mg PO HS Cetirizine HCl 10 mg PO DAILY Promethazine HCl 12.5 mg PO Q6H PRN PRN Reason: Nausea Discontinued SUMAtriptan succinate [Imitrex] 100 mg PO BID PRN PRN Reason: Migraine Headache FLUoxetine HCL [PROzac] 40 mg PO DAILY Discharge Medication List Lansoprazole 30 mg PO BID 08/27/19 [History] Levothyroxine Sodium [Synthroid] 100 mcg PO DAILY 10/04/19 [History] Aspirin 81 mg PO DAILY 30 Days chewable 10/16/19 [Rx] Topiramate [Trokendi Xr] 50 mg PO HS 10/07/20 [History] Cetirizine HCl 10 mg PO DAILY 03/15/22 [History] Hyoscyamine Sulfate [Levsin] 0.125 mg SL QID PRN 03/15/22 [History] Tenapanor HCl [Ibsrela] 50 mg PO BID 03/15/22 [History] Fondaparinux [Arixtra] 7.5 mg SQ HS 07/28/22 [History] Ondansetron Odt [Zofran ODT] 8 mg PO Q8HR PRN 07/28/22 [History] Promethazine HCl 12.5 mg PO Q6H PRN 09/08/22 [History] Promethazine HCl 25 mg PO Q6H PRN 09/08/22 [History] oxyCODONE HCL [oxyCODONE HCL (IR)] 15 mg PO Q8H PRN 09/08/22 [History] Acetaminophen Tab [Tylenol] 650 mg PO Q4HR PRN tab 09/13/22 [Rx] FLUoxetine HCL [PROzac] 20 mg PO DAILY 30 Days #30 cap 09/13/22 [Rx] Mirtazapine [Remeron] 30 mg PO HS #60 tab 09/13/22 [Rx] Follow up Appointment(s)/Referral(s): Oska,Karthikeyan, MD [Primary Care Provider] - 1-2 days Discharge Disposition: HOME SELF-CARE
== END 2022-09-13 12:23 | disposition home or self-care (01) ==
LOC: EC 18:50 → 3SCARD 21:43 → 6NMEDSUR 09-09 09:16
PROVIDERS: ADMIT Internal Medicine; ATTEND Internal Medicine
DX: T46.4X2A Poisoning by angiotensin-converting-enzyme inhibitors, intentional self-harm, initial encounter (principal); T50.2X2A Poisoning by carbonic-anhydrase inhibitors, benzothiadiazides and other diuretics, intentional self-harm, initial encounter; F33.2 Major depressive disorder, recurrent severe without psychotic features; K31.84 Gastroparesis; G89.29 Other chronic pain; Z96.82 Presence of neurostimulator; E87.6 Hypokalemia; E86.0 Dehydration; F11.20 Opioid dependence, uncomplicated; K21.9 Gastro-esophageal reflux disease without esophagitis; E03.9 Hypothyroidism, unspecified; G43.909 Migraine, unspecified, not intractable, without status migrainosus; D64.9 Anemia, unspecified; F41.9 Anxiety disorder, unspecified; G47.00 Insomnia, unspecified; Z79.890 Hormone replacement therapy; Z79.82 Long term (current) use of aspirin; Z79.899 Other long term (current) drug therapy; Z88.5 Allergy status to narcotic agent; Z88.8 Allergy status to other drugs, medicaments and biological substances; Z86.711 Personal history of pulmonary embolism; Z93.4 Other artificial openings of gastrointestinal tract status; Z86.718 Personal history of other venous thrombosis and embolism; Z16.21 Resistance to vancomycin; Z90.49 Acquired absence of other specified parts of digestive tract; Z87.19 Personal history of other diseases of the digestive system; Z98.891 History of uterine scar from previous surgery; Z98.890 Other specified postprocedural states; Z82.49 Family history of ischemic heart disease and other diseases of the circulatory system
CPT/HCPCS: 96376 ×6; 96361 ×5; 96374; 96375 ×2; 99285; 36415; 93005; 80053 ×2; 83690; 84484; 85025 ×2; 85610; 81025; 80306; 80143; 80320; 80179; G0378 ×7; J2060 ×4; J1200 ×6; J2405 ×5; J1170 ×4; J1652 ×4; J1790

== ENCOUNTER 2023-01-28 07:43 | Emergency (ER) | payer BC ==
[2023-01-28 08:02] VITALS: BP 130/80; PULSE 88; RESP 20; TEMP 98.4
[2023-01-28] MEDS ORDERED: ONDANSETRON 4 MG/2 ML VIAL IVP STA ×2 (08:27→11:50)
[2023-01-28] MEDS ORDERED: diphenhydrAMINE 50 MG/ML 1 ML VIAL IVP STA ×2 (08:27→11:50)
[2023-01-28] MEDS ORDERED: SODIUM CHLORIDE 0.9% 1,000 ML IV STA (08:27)
[2023-01-28 09:23] LABS: Basophils % (A) 1 %; Eosinophils # (A) 0.1 k/uL (0-0.7); Eosinophils % (A) 2 %; HCT 42.9 % (34.0-46.0); HGB 14.1 gm/dL (11.4-16.0); Lymphocytes # (A) 1.5 k/uL (1.0-4.8); Lymphocytes % (A) 25 %; MCH 28.5 pg (25.0-35.0); MCHC 32.8 g/dL (31.0-37.0); MCV 86.8 fL (80.0-100.0); Mean Platelet Volume 6.9; Monocytes # (A) 0.3 k/uL (0-1.0); Monocytes % (A) 5 %; Neutrophils # (A) 4.1 k/uL (1.3-7.7); Neutrophils % (A) 66 %; Platelet Count 337 k/uL (150-450); RBC 4.95 m/uL (3.80-5.40); RDW 13.4 % (11.5-15.5); WBC 6.1 k/uL (3.8-10.6)
[2023-01-28] MEDS ORDERED: MORPHINE SULFATE 2 MG/ML SYRINGE IVP ONE ×2 (09:33→10:36)
[2023-01-28 09:35] LABS: ALT 45 U/L (4-34); AST 31 U/L (14-36); African American GFR (CKD) >90 (>60 ml/min/1.73 sqM); Albumin 4.2 g/dL (3.5-5.0); Alkaline Phosphatase 123 U/L (38-126); Amylase 92 U/L (30-110); Anion Gap 10 mmol/L; Blood Urea Nitrogen 11 mg/dL (7-17); Calcium 9.6 mg/dL (8.4-10.2); Carbon Dioxide 21 mmol/L (22-30); Chloride 110 mmol/L (98-107); Glucose 88 mg/dL (74-99); Lipase 37 U/L (23-300); Non-African American GFR(CKD) >90 (>60 ml/min/1.73 sqM); Potassium 4.1 mmol/L (3.5-5.1); Sodium 141 mmol/L (137-145); Total Bilirubin 0.4 mg/dL (0.2-1.3); Total Protein 6.7 g/dL (6.3-8.2)
--- NOTE | 2023-01-28 09:52 | ED ---
Nausea/Vomiting/Diarrhea HPI - General Chief complaint: Nausea/Vomiting/Diarrhea Stated complaint: Vomiting and abdominal pain Time Seen by Provider: 01/28/23 08:15 Source: patient, family, RN notes reviewed Mode of arrival: ambulatory Limitations: no limitations - History of Present Illness Initial comments: Patient is a 42-year-old female presented ER with a chief complaint of nausea and vomiting. Patient has a medical history significant for gastroparesis with a J tube. Patient states her J-tube has been removed since October and they plan on closing her ostomy within the next month or so. Patient states she currently has an open ostomy which leaks her stomach contents when she coughs. Patient states for the past 2-3 days she has had intense nausea and vomiting. She has not been able to keep anything down. She has been taking Reglan and Zofran at home with no relief. Patient denies any chest pain, shortness of breath, fevers, diarrhea or constipation. - Related Data Home Medications Medication Instructions Recorded Confirmed Lansoprazole 30 mg PO BID 08/27/19 09/08/22 Levothyroxine Sodium [Synthroid] 100 mcg PO DAILY 10/04/19 09/08/22 Topiramate [Trokendi Xr] 50 mg PO HS 10/07/20 09/08/22 Cetirizine HCl 10 mg PO DAILY 03/15/22 09/08/22 Hyoscyamine Sulfate [Levsin] 0.125 mg SL QID PRN 03/15/22 09/08/22 Tenapanor HCl [Ibsrela] 50 mg PO BID 03/15/22 09/08/22 Fondaparinux [Arixtra] 7.5 mg SQ HS 07/28/22 09/08/22 Ondansetron Odt [Zofran ODT] 8 mg PO Q8HR PRN 07/28/22 09/08/22 Promethazine HCl 12.5 mg PO Q6H PRN 09/08/22 09/08/22 Promethazine HCl 25 mg PO Q6H PRN 09/08/22 09/08/22 oxyCODONE HCL [oxyCODONE HCL (IR)] 15 mg PO Q8H PRN 09/08/22 09/08/22 Previous Rx's Medication Instructions Recorded Aspirin 81 mg PO DAILY 30 Days chewable 10/16/19 Acetaminophen Tab [Tylenol] 650 mg PO Q4HR PRN tab 09/13/22 FLUoxetine HCL [PROzac] 20 mg PO DAILY 30 Days #30 cap 09/13/22 Mirtazapine [Remeron] 30 mg PO HS #60 tab 09/13/22 Allergies Allergy/AdvReac Type Severity Reaction Status Date / Time midazolam [From Versed] Allergy Anaphylaxis Verified 01/28/23 07:50 metoclopramide [From Reglan] AdvReac Mild jittery Verified 01/28/23 07:50 prochlorperazine AdvReac Mild JITTERY Verified 01/28/23 07:50 [From Compazine] ketorolac [From Toradol] AdvReac Abdominal Verified 01/28/23 07:50 Pain Review of Systems ROS Statement: Those systems with pertinent positive or pertinent negative responses have been documented in the HPI. ROS Other: All systems not noted in ROS Statement are negative. Past Medical History Past Medical History: Deep Vein Thrombosis (DVT), GERD/Reflux, Pulmonary Embolus (PE), Thyroid Disorder Additional Past Medical History / Comment(s): Idiopathic gastroparesis, takes little in orally-has J tube for feedings and gastric stimulator- chronic abdominal pain, R pulmonary embolism 5-2017, dvt R upper extremity 2018, pancreatitis once in 2017-thought stone somewhere, hypothyroid, chronic anemia, sinus problems, migraines History of Any Multi-Drug Resistant Organisms: VRE Date of last positivie culture/infection: 08/01/18 MDRO Source:: VRE URINE Past Surgical History: Section, Cholecystectomy, Hernia Repair, Orth opedic Surgery, Tonsillectomy Additional Past Surgical History / Comment(s): Gastric pacer with removal in spring 2017, J tube, gastric stimulator, x3, 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 Mother Family Medical History: No Reported History Additional Family Medical History / Comment(s): Mother is 58yrs old. General Exam Limitations: no limitations General appearance: alert, in no apparent distress Respiratory exam: Present: normal lung sounds bilaterally. Absent: respiratory distress, wheezes, rales, rhonchi, stridor Cardiovascular Exam: Present: regular rate, normal rhythm, normal heart sounds. Absent: systolic murmur, diastolic murmur, rubs, gallop, clicks GI/Abdominal exam: Present: soft, normal bowel sounds, other (left ostomy present; surrounding skin is intact without erythema or purlence. Covered with barrier cream and gauses pads. ) Neurological exam: Present: alert, oriented X3, CN II-XII intact Psychiatric exam: Present: normal affect, normal mood Skin exam: Present: warm, dry, intact, normal color. Absent: rash Course Vital Signs 01/28/23 07:48 Temperature 98.4 F Pulse Rate 88 Respiratory 20 Rate Blood Pressure 130/80 O2 Sat by Pulse 99 Oximetry Medical Decision Making - Medical Decision Making Was pt. sent in by a medical professional or institution (, PA, CAPTAIN CAN[employer]ERY TENDER, urgent care, hospital, or retirement...) When possible be specific @ -No Did you speak to anyone other than the patient for history (EMS, parent, family, police, friend...)? What history was obtained from this source @ -Family Did you review nursing and triage notes (agree or disagree)? Why? @ -I reviewed and agree with nursing and triage notes Were old charts reviewed (outside hosp., previous admission, EMS record, old EKG, old radiological studies, urgent care reports/EKG's, retirement records)? Report findings @ -No old charts were reviewed Differential Diagnosis (chest pain, altered mental status, abdominal pain women, abdominal pain men, vaginal bleeding, weakness, fever, dyspnea, syncope, headache, dizziness, GI bleed, back pain, seizure, CVA, palpatations, mental health, musculoskeletal)? @ -Differential Abdominal Pain Women: Appendicitis, Cholecystitis, diverticulosis, ischemic bowel, pancreatitis, hepatitis, UTI, gastroenteritis, AAA, incarcerated hernia, bowel obstruction, constipation, inflammatory bowel, hepatitis, peptic ulcer disease, splenic infarction, perforated viscus, vulvitis, ovarian torsion, PID, kidney stone, placenta abruption, this is not meant to be an all-inclusive listcable EKG interpreted by me (3pts min.). @ -None X-rays interpreted by me (1pt min.). @ -None done CT interpreted by me (1pt min.). @ -None done U/S interpreted by me (1pt. min.). @ -None done What testing was considered but not performed or refused? (CT, X-rays, U/S, labs )? Why? @ -None What meds were considered but not given or refused? Why? @ -None Did you discuss the management of the patient with other professionals (professionals i.e. , PA, CAPTAIN CANNERY TENDER, lab, RT, psych nurse, health care social worker, mental health associate, teacher, postal sorting officer, employment case manager)? Give summary @ -No Was smoking cessation discussed for >3mins.? @ -No Was critical care preformed (if so, how long)? @ -No Were there social determinants of health that impacted care today? How? (Homelessness, low income, unemployed, alcoholism, drug addiction, transportation, low edu. Level, literacy, decrease access to med. care, assisted, rehab)? @ -No Was there de-escalation of care discussed even if they declined (Discuss DNR or withdrawal of care, Hospice)? DNR status @ -No What co-morbidities impacted this encounter? (DM, HTN, Smoking, COPD, CAD, Cancer, CVA, ARF, Chemo, Hep., AIDS, mental health diagnosis, sleep apnea, morbid obesity)? @ -None Was patient admitted / discharged? Hospital course, mention meds given and route, prescriptions, significant lab abnormalities, going to OR and other pertinent info. @ -Patient is a 42-year-old female presenting to the ER with a chief complaint of nausea and vomiting. Patient states this went on for the last 48 hours. Labs done in the ER were WNL. The ER patient received 8 mg Zofran, 25 mg Phenergan, 75 mg Benadryl, 6 mg morphine, and 1 g of acetaminophen. Patient also received 1 L of normal saline. Patient was encouraged to eat crackers but patient stated she vomited them back up. Patient will be discharged home in stable condition. Patient advised to take Zofran as needed. To follow-up with her PCP and GI specialist. Return parameters were discussed. Patient expressed understanding. Undiagnosed new problem with uncertain prognosis? @ -No Drug Therapy requiring intensive monitoring for toxicity (Heparin, Nitro, Insulin, Cardizem)? @ -No Were any procedures done? @ -No Diagnosis/symptom? @ -Nausea vomiting Acute, or Chronic, or Acute on Chronic? @ -Acute Uncomplicated (without systemic symptoms) or Complicated (systemic symptoms)? @ -Uncomplicated Side effects of treatment? @ -No Exacerbation, Progression, or Severe Exacerbation? @ -No Poses a threat to life or bodily function? How? (Chest pain, [place], [place], pneumonia, PE, COPD, DKA, ARF, appy, cholecystitis, CVA, Diverticulitis, Homicidal, Suicida l, threat to staff... and all critical care pts) @ -No - Lab Data Result diagrams: 01/28/23 08:42 01/28/23 08:42 Lab Results 01/28/23 01/28/23 01/28/23 Range/Units 08:42 08:42 10:29 WBC 6.1 (3.8-10.6) k/uL RBC 4.95 (3.80-5.40) m/uL Hgb 14.1 (11.4-16.0) gm/dL Hct 42.9 (34.0-46.0) % MCV 86.8 (80.0-100.0) fL MCH 28.5 (25.0-35.0) pg MCHC 32.8 (31.0-37.0) g/dL RDW 13.4 (11.5-15.5) % Plt Count 337 (150-450) k/uL MPV 6.9 Neutrophils % 66 % Lymphocytes % 25 % Monocytes % 5 % Eosinophils % 2 % Basophils % 1 % Neutrophils # 4.1 (1.3-7.7) k/uL Lymphocytes # 1.5 (1.0-4.8) k/uL Monocytes # 0.3 (0-1.0) k/uL Eosinophils # 0.1 (0-0.7) k/uL Basophils # 0.0 (0-0.2) k/uL Sodium 141 (137-145) mmol/L Potassium 4.1 (3.5-5.1) mmol/L Chloride 110 H (98-107) mmol/L Carbon Dioxide 21 L (22-30) mmol/L Anion Gap 10 mmol/L BUN 11 (7-17) mg/dL Creatinine 0.81 (0.52-1.04) mg/dL Est GFR (CKD-EPI)AfAm >90 (>60 ml/min/1.73 sqM) Est GFR (CKD-EPI)NonAf >90 (>60 ml/min/1.73 sqM) Glucose 88 (74-99) mg/dL Calcium 9.6 (8.4-10.2) mg/dL Total Bilirubin 0.4 (0.2-1.3) mg/dL AST 31 (14-36) U/L ALT 45 H (4-34) U/L Alkaline Phosphatase 123 (38-126) U/L Total Protein 6.7 (6.3-8.2) g/dL Albumin 4.2 (3.5-5.0) g/dL Amylase 92 (30-110) U/L Lipase 37 (23-300) U/L Urine Color Urine Appearance (Clear) Urine pH (5.0-8.0) Ur Specific [place] (1.001-1.035) Urine Protein (Negative) Urine Glucose (UA) (Negative) Urine Ketones (Negative) Urine Blood (Negative) Urine Nitrite (Negative) Urine Bilirubin (Negative) Urine Urobilinogen (<2.0) mg/dL Ur Leukocyte Esterase (Negative) Urine HCG, Qual (Not Detectd) Coronavirus (PCR) Not Detected (Not Detectd) 01/28/23 01/28/23 Range/Units 10:45 10:45 WBC (3.8-10.6) k/uL RBC (3.80-5.40) m/uL Hgb (11.4-16.0) gm/dL Hct (34.0-46.0) % MCV (80.0-100.0) fL MCH (25.0-35.0) pg MCHC (31.0-37.0) g/dL RDW (11.5-15.5) % Plt Count (150-450) k/uL MPV Neutrophils % % Lymphocytes % % Monocytes % % Eosinophils % % Basophils % % Neutrophils # (1.3-7.7) k/uL Lymphocytes # (1.0-4.8) k/uL Monocytes # (0-1.0) k/uL Eosinophils # (0-0.7) k/uL Basophils # (0-0.2) k/uL Sodium (137-145) mmol/L Potassium (3.5-5.1) mmol/L Chloride (98-107) mmol/L Carbon Dioxide (22-30) mmol/L Anion Gap mmol/L BUN (7-17) mg/dL Creatinine (0.52-1.04) mg/dL Est GFR (CKD-EPI)AfAm (>60 ml/min/1.73 sqM) Est GFR (CKD-EPI)NonAf (>60 ml/min/1.73 sqM) Glucose (74-99) mg/dL Calcium (8.4-10.2) mg/dL Total Bilirubin (0.2-1.3) mg/dL AST (14-36) U/L ALT (4-34) U/L Alkaline Phosphatase (38-126) U/L Total Protein (6.3-8.2) g/dL Albumin (3.5-5.0) g/dL Amylase (30-110) U/L Lipase (23-300) U/L Urine Color Colorless Urine Appearance Clear (Clear) Urine pH 6.5 (5.0-8.0) Ur Specific [place] 1.010 (1.001-1.035) Urine Protein Negative (Negative) Urine Glucose (UA) Negative (Negative) Urine Ketones Negative (Negative) Urine Blood Negative (Negative) Urine Nitrite Negative (Negative) Urine Bilirubin Negative (Negative) Urine Urobilinogen <2.0 (<2.0) mg/dL Ur Leukocyte Esterase Negative (Negative) Urine HCG, Qual Not Detected (Not Detectd) Coronavirus (PCR) (Not Detectd) Disposition Clinical Impression: Nausea & vomiting Disposition: HOME SELF-CARE Condition: Stable Instructions (If sedation given, give patient instructions): Acute Nausea and Vomiting (ED) Additional Instructions: Please return to the Emergency Department if symptoms worsen or any other concerns. Is patient prescribed a controlled substance at d/c from ED?: No Referrals: Karthikeyan Pedro MD [Primary Care Provider] - 1-2 days Decision Time: 13:05
[2023-01-28] MEDS ORDERED: PROMETHAZINE 25 MG TAB PO STA (10:05)
[2023-01-28] MEDS ORDERED: MORPHINE SULFATE 4 MG/ML SYRINGE IV STA (10:44)
[2023-01-28] MEDS ORDERED: ACETAMINOPHEN IV (For NPO) 1,000 MG in EMPTY BAG 1 BAG IVPB STA (11:50)
[2023-01-28 11:55] LABS: Appearance,Urine Clear (Clear); Bilirubin,Urine Negative (Negative); Blood,Urine Negative (Negative); Color,Urine Colorless; Glucose,Urine (UA) Negative (Negative); Ketones,Urine Negative (Negative); PH, Urine 6.5 (5.0-8.0); Protein,Urine Negative (Negative)
[2023-01-28 11:56] LABS: Leukocyte Esterase,Urine Negative (Negative); Nitrite,Urine Negative (Negative); Urobilinogen,Urine <2.0 mg/dL (<2.0)
== END 2023-01-28 13:11 | disposition home or self-care (01) ==
LOC: EC 07:43
DX: R11.2 Nausea with vomiting, unspecified (principal); K21.9 Gastro-esophageal reflux disease without esophagitis; E03.9 Hypothyroidism, unspecified; F32.A Depression, unspecified; Z79.890 Hormone replacement therapy; Z79.899 Other long term (current) drug therapy; Z88.8 Allergy status to other drugs, medicaments and biological substances; Z88.6 Allergy status to analgesic agent; Z90.49 Acquired absence of other specified parts of digestive tract
CPT/HCPCS: 36415; 80053; 82150; 83690; 85025; 81003; 81025; 87635; 99284; 96374; 96375 ×3; 96376 ×3; 96361; J2270 ×2; J1200; J2405; J0131

== ENCOUNTER → 2023-09-12 | Outpatient (CLI) | payer BC ==
[2023-09-12 19:12] LABS: Basophils # (A) 0.05 X 10*3/uL (0.00-0.10); Basophils % (A) 0.8 %; Eosinophils # (A) 0.17 X 10*3/uL (0.04-0.35); Eosinophils % (A) 2.8 %; HCT 32.2 % (37.2-46.3); HGB 10.3 g/dL (12.0-15.0); Lymphocytes # (A) 1.81 X 10*3/uL (0.90-5.00); Lymphocytes % (A) 29.5 %; MCH 29.5 pg (27.0-32.0); MCV 92.3 FL (80.0-97.0); Mean Platelet Volume 9.9 FL (9.5-12.2); Monocytes % (A) 11.4 %; NRBC Per 100 WBC 0 X 10*3/uL (0.00-0.01); Neutrophils # (A) 3.37 X 10*3/uL (1.80-7.70); Platelet Count 361 X 10*3/uL (140-440); RBC 3.49 X 10*6/uL (4.10-5.20); RDW 15.8 % (11.5-14.5); WBC 6.13 X 10*3/uL (4.50-10.00)
[2023-09-12 19:42] LABS: ALT 31 U/L (8-44); AST 35 U/L (13-35); Albumin 3.8 g/dL (3.8-4.9); Alkaline Phosphatase 136 U/L (41-126); BUN/Creat Ratio 14.88 Ratio (12.00-20.00); Blood Urea Nitrogen 11.9 mg/dL (9.0-27.0); Carbon Dioxide 21.2 mmol/L (21.6-31.8); Chloride 110 mmol/L (96-109); Globulin 1.9 g/dL (1.6-3.3); Glucose 99 mg/dL (70-110); Magnesium 2.1 mg/dL (1.5-2.4); Phosphorus 4.5 mg/dL (2.4-5.1); Potassium 4.4 mmol/L (3.5-5.5); Sodium 143 mmol/L (135-145); Total Bilirubin <0.2 mg/dL (0.3-1.2); Total Protein 5.7 g/dL (6.2-8.2)
== END | disposition home or self-care (01) ==
LOC: LABWHC1 13:20
PROVIDERS: ATTEND Internal Medicine Infectious Disease
DX: K31.84 Gastroparesis (principal); K55.1 Chronic vascular disorders of intestine; R10.9 Unspecified abdominal pain
CPT/HCPCS: 36415; 80053; 83735; 84100; 84478; 85025

== ENCOUNTER → 2023-11-16 | Outpatient (CLI) | payer BC | END | disposition home or self-care (01) | LOC: LABWHC1 10:17 | DX: K55.1 Chronic vascular disorders of intestine (principal); K31.84 Gastroparesis | CPT/HCPCS: 36415; 80053; 82306; 82525; 82728; 83735; 84100; 84255; 84478; 84630; 85027; 86140 ==

== ENCOUNTER → 2023-12-15 | Outpatient (CLI) | payer BC ==
[2023-12-15 15:43] LABS: ALT 16 U/L (8-44); AST 19 U/L (13-35); Albumin 4.3 g/dL (3.8-4.9); Albumin/Globulin Ratio 1.79 Ratio (1.60-3.17); Alkaline Phosphatase 210 U/L (41-126); Blood Urea Nitrogen 11.9 mg/dL (9.0-27.0); C Reactive Protein <0.30 mg/dL (0.00-0.80); Calcium 9.8 mg/dL (8.7-10.3); Carbon Dioxide 21.5 mmol/L (21.6-31.8); Chloride 108 mmol/L (96-109); Ferritin 71.5 ng/mL (10.0-291.0); Globulin 2.4 g/dL (1.6-3.3); Glucose 91 mg/dL (70-110); Magnesium 2.2 mg/dL (1.5-2.4); Phosphorus 3.1 mg/dL (2.4-5.1); Potassium 4.4 mmol/L (3.5-5.5); Sodium 140 mmol/L (135-145); Total Bilirubin 0.2 mg/dL (0.3-1.2); Total Protein 6.7 g/dL (6.2-8.2)
[2023-12-15 15:53] LABS: Basophils # (A) 0.08 X 10*3/uL (0.00-0.10); Basophils % (A) 1.1 %; Eosinophils % (A) 1.4 %; HCT 43.9 % (37.2-46.3); HGB 14.5 g/dL (12.0-15.0); Lymphocytes # (A) 2.05 X 10*3/uL (0.90-5.00); Lymphocytes % (A) 27.8 %; MCH 27.8 pg (27.0-32.0); MCV 84.1 FL (80.0-97.0); Mean Platelet Volume 9.9 FL (9.5-12.2); Monocytes # (A) 0.54 X 10*3/uL (0.20-1.00); Monocytes % (A) 7.3 %; NRBC Per 100 WBC 0 X 10*3/uL (0.00-0.01); Neutrophils # (A) 4.58 X 10*3/uL (1.80-7.70); Neutrophils % (A) 62.1 %; Platelet Count 389 X 10*3/uL (140-440); RBC 5.22 X 10*6/uL (4.10-5.20); RBC Morphology Normal (Normal); WBC 7.37 X 10*3/uL (4.50-10.00)
[2023-12-24 16:37] LABS: Selenium 112 mcg/L (63-160)
== END | disposition home or self-care (01) ==
LOC: LABWHC1 12-14 15:39
DX: K31.84 Gastroparesis (principal); K55.1 Chronic vascular disorders of intestine
CPT/HCPCS: 36415; 80053; 82306; 82525; 82725; 82728; 83735; 84100; 84238; 84255; 84478; 84630; 85025; 86140